=== PATIENT | male | born 1985 | race Caucasian/White ===

== ENCOUNTER 2017-06-22 01:40 | Emergency (ER) | payer OTHER ==
[2017-06-22] MEDS: ASPIRIN 81 MG CHEW TABLET PO ×2 (02:02)
[2017-06-22] MEDS: NITROGLYCERIN 0.4 MG SUBL TABLET SL ×4 (02:03→02:15)
[2017-06-22 02:05] LABS: BASO # 0.1 10^3/uL (0.0-0.2); BASO % 0.7 % (0.0-1.0); EOS # 0.2 10^3/uL (0.0-0.50); EOS % 2.3 % (0.0-3.0); HEMATOCRIT 44.3 % (42.0-52.0); HEMOGLOBIN 15.7 g/dl (13.5-17.5); IMMATURE GRANULOCYTE % 0.4 % (0-3.0); LYMPH # 2.9 10^3/uL (1.5-4.5); LYMPH % 34.9 % (24.0-44.0); MEAN CORPUSCULAR HEMOGLOBIN 30.7 pg (27.0-33.0); MEAN CORPUSCULAR HGB CONC 35.4 g/dl (32.0-36.5); MEAN CORPUSCULAR VOLUME 86.7 fl (80.0-96.0); MONO # 1.1 10^3/uL (0.0-0.8); MONO % 13.2 % (0.0-5.0); NEUTROPHILS # 4.1 10^3/uL (1.8-7.7); NEUTROPHILS % 48.5 % (36.0-66.0); PLATELET COUNT, AUTOMATED 327 10^3/uL (150-450); RED BLOOD COUNT 5.11 10^6/uL (4.30-6.10); RED CELL DISTRIBUTION WIDTH 11.9 % (11.5-14.5); WHITE BLOOD COUNT 8.4 10^3/uL (4.0-10.0)
[2017-06-22 02:20] LABS: INR 0.97
[2017-06-22 02:46] LABS: ALBUMIN 3.9 GM/DL (3.2-5.2); ALBUMIN/GLOBULIN RATIO 1.11 (1.00-1.93); ALKALINE PHOSPHATASE 73 U/L (45-117); ALT/SGPT 47 U/L (12-78); ANION GAP 8 MEQ/L (8-16); AST/SGOT 14 U/L (7-37); BILIRUBIN,DIRECT 0.1 MG/DL (0.0-0.2); BILIRUBIN,TOTAL 0.4 MG/DL (0.2-1.0); BLOOD UREA NITROGEN 14 MG/DL (7-18); CALCIUM LEVEL 8.5 MG/DL (8.5-10.1); CARBON DIOXIDE LEVEL 26 MEQ/L (21-32); CHLORIDE LEVEL 106 MEQ/L (98-107); CK-MB VALUE MASS 1.2 NG/ML (<3.6); CPK CREATINE PHOSPHOKINASE 74 U/L (39-308); CREATININE FOR GFR 0.97 MG/DL (0.70-1.30); GLOMERULAR FILTRATION RATE > 60.0 (>60); GLUCOSE, FASTING 102 MG/DL (70-100); LIPASE 107 U/L (73-393); MB/CK RELATIVE INDEX 1.62 (< OR =4); POTASSIUM SERUM 3.8 MEQ/L (3.5-5.1); SODIUM LEVEL 140 MEQ/L (136-145); TOTAL PROTEIN 7.4 GM/DL (6.4-8.2); TROPONIN I < 0.02 NG/ML (< 0.10)
[2017-06-22] MEDS ORDERED: ISOVUE-370 76% 100ML VIAL (Q9967) As Ordered ×2 (02:49)
[2017-06-22] MEDS: PANTOPRAZOLE 40MG INJ (PROTONIX) (C9113) IV ×2 (04:40)
[2017-06-22] MEDS: GI COCKTAIL 50ML BTL(HYOSCYAMINE/MAALOX/LIDOCAINE VISCOUS)(1:3:1) PO ×2 (04:40)
[2017-06-22 08:29] LABS: CPK CREATINE PHOSPHOKINASE 66 U/L (39-308); TROPONIN I < 0.02 NG/ML (< 0.10)
[2017-06-22 08:30] LABS: CK-MB VALUE MASS < 1.0 NG/ML (<3.6); MB/CK RELATIVE INDEX 1.51 (< OR =4)
[2017-06-22] MEDS: ALPRAZolam 0.5 MG TAB PO ×2 (09:43)
== END 2017-06-22 09:48 | disposition home or self-care (01) ==
LOC: M ED 01:40
DX: R07.9 Chest pain, unspecified (principal); I25.2 Old myocardial infarction; I10 Essential (primary) hypertension; K21.9 Gastro-esophageal reflux disease without esophagitis; Q05.9 Spina bifida, unspecified; F17.200 Nicotine dependence, unspecified, uncomplicated; Z79.82 Long term (current) use of aspirin
CPT/HCPCS: C9113

== ENCOUNTER → 2017-08-16 | Outpatient (REF) | payer OTHER ==
[2017-08-16 16:35] LABS: CHLAMYDIA DNA AMPLIFICATION NEGATIVE (NEGATIVE); GC DNA AMPLIFICATION NEGATIVE (NEGATIVE)
== END ==
LOC: M SFHCLERA 10:58
DX: R10.9 Unspecified abdominal pain (principal)

== ENCOUNTER → 2017-08-16 | Outpatient (CLI) | payer OTHER | LOC: M LRY 11:29 | DX: R10.12 Left upper quadrant pain (principal) | CPT/HCPCS: 74021 ==

== ENCOUNTER 2017-10-17 19:13 | Emergency (ER) | payer OTHER ==
[2017-10-17 20:02] LABS: BASO # 0.1 10^3/uL (0.0-0.2); BASO % 0.7 % (0.0-1.0); EOS # 0.2 10^3/uL (0.0-0.50); EOS % 2.2 % (0.0-3.0); HEMATOCRIT 43.6 % (42.0-52.0); HEMOGLOBIN 15.4 g/dl (13.5-17.5); IMMATURE GRANULOCYTE % 0.3 % (0-3.0); LYMPH # 2.2 10^3/uL (1.5-4.5); LYMPH % 28.8 % (24.0-44.0); MEAN CORPUSCULAR HEMOGLOBIN 30.8 pg (27.0-33.0); MEAN CORPUSCULAR HGB CONC 35.3 g/dl (32.0-36.5); MEAN CORPUSCULAR VOLUME 87.2 fl (80.0-96.0); MONO # 0.8 10^3/uL (0.0-0.8); MONO % 10.2 % (0.0-5.0); NEUTROPHILS # 4.4 10^3/uL (1.8-7.7); NEUTROPHILS % 57.8 % (36.0-66.0); PLATELET COUNT, AUTOMATED 318 10^3/uL (150-450); RED CELL DISTRIBUTION WIDTH 12.6 % (11.5-14.5); WHITE BLOOD COUNT 7.7 10^3/uL (4.0-10.0)
[2017-10-17] MEDS: NS 1,000 ML IV (20:10)
[2017-10-17] MEDS: ONDANSETRON 4MG/2ML VIAL (J2405) IV (20:17)
[2017-10-17] MEDS: MORPHINE 4 MG/ML 1ML VIAL/SYRINGE (J2270) IV ×4 (20:20→23:59)
[2017-10-17 20:23] LABS: ALBUMIN 3.9 GM/DL (3.2-5.2); ALBUMIN/GLOBULIN RATIO 1.11 (1.00-1.93); ALKALINE PHOSPHATASE 67 U/L (45-117); ALT/SGPT 95 U/L (12-78); ANION GAP 8 MEQ/L (8-16); AST/SGOT 48 U/L (7-37); BILIRUBIN,DIRECT 0.1 MG/DL (0.0-0.2); BILIRUBIN,TOTAL 0.5 MG/DL (0.2-1.0); BLOOD UREA NITROGEN 14 MG/DL (7-18); CARBON DIOXIDE LEVEL 24 MEQ/L (21-32); CHLORIDE LEVEL 107 MEQ/L (98-107); CREATININE FOR GFR 0.89 MG/DL (0.70-1.30); GLOMERULAR FILTRATION RATE > 60.0 (>60); GLUCOSE, FASTING 87 MG/DL (70-100); LIPASE 128 U/L (73-393); POTASSIUM SERUM 4.4 MEQ/L (3.5-5.1); SODIUM LEVEL 139 MEQ/L (136-145); TOTAL PROTEIN 7.4 GM/DL (6.4-8.2)
[2017-10-17 20:36] LABS: KETONE, URINE AUTO RFX NEGATIVE (NEGATIVE); LEUKOCYTE ESTERASE UR AUTO RFX NEGATIVE (NEGATIVE); NITRITE, URINE AUTO RFX NEGATIVE (NEGATIVE); RBC, URINE AUTO RFX 1 /HPF (0-3); SPECIFIC GRAVITY UR AUTO RFX 1.016 (1.002-1.035); SQUAM EPITHELIAL CELL UR AURFX 0 /HPF (0-6); WBC, URINE AUTO RFX 1 /HPF (0-3)
[2017-10-17] MEDS: GASTROGRAFIN SOLUTION 30ML PO ×2 (23:26→23:45)
[2017-10-18] MEDS ORDERED: ISOVUE-370 76% 100ML VIAL (Q9967) As Ordered (01:00)
[2017-10-18] MEDS: MORPHINE 4 MG/ML 1ML VIAL/SYRINGE (J2270) IV (02:43)
[2017-10-18] MEDS: OXYCODONE/APAP 5MG/325MG(BULK FOR ED) 1 TABLET PO (03:16)
== END 2017-10-18 03:25 | disposition home or self-care (01) ==
LOC: M ED 10-18 03:25
DX: K80.50 Calculus of bile duct without cholangitis or cholecystitis without obstruction (principal); Z72.0 Tobacco use; Z79.82 Long term (current) use of aspirin
CPT/HCPCS: J2270

== ENCOUNTER 2017-11-09 05:56 | Day surgery (SDC) | payer OTHER ==
[2017-11-09] MEDS: LR 1,000 ML IV (06:50)
[2017-11-09] MEDS ORDERED: LIDOCAINE 2% INJ 100 MG/5 ML SDV (FOR ANES.) As Ordered (07:12)
[2017-11-09] MEDS ORDERED: PROPOFOL 200 MG/20 ML VIAL As Ordered (07:12)
[2017-11-09] MEDS ORDERED: dexameTHASONE 4 MG/ML 1ML VIAL (J1100) As Ordered (07:12)
[2017-11-09] MEDS ORDERED: ROCURONIUM BROMIDE 50 MG/5 ML VIAL As Ordered (07:12)
[2017-11-09] MEDS ORDERED: GLYCOPYRROLATE INJ 0.2 MG/ML 2 ML VIAL As Ordered (07:12)
[2017-11-09] MEDS ORDERED: ONDANSETRON 4MG/2ML VIAL (J2405) As Ordered (07:12)
[2017-11-09] MEDS ORDERED: NEOSTIGMINE 10 MG/10 ML VIAL (J2710) As Ordered (07:12)
[2017-11-09] MEDS ORDERED: MIDAZOLAM INJ 2 MG/2 ML VIAL (J2250) As Ordered (07:17)
[2017-11-09] MEDS ORDERED: fentaNYL 100 MCG/2 ML INJECTION (J3010) As Ordered ×3 (07:17→08:58)
[2017-11-09] MEDS: AMPICILLIN SOD/SULBACTAM SOD 3 GM in D5W MINI-BAG PLUS 100 ML IV (07:30)
[2017-11-09] MEDS ORDERED: HYDROmorphone HCL 2 MG/ML 1ML VIAL (J1170) As Ordered (07:48)
[2017-11-09] MEDS: LIDOCAINE 1% SDV INJ 30 ML VIAL As Ordered (08:31)
[2017-11-09] MEDS: BUPIVACAINE HCL 0.25% 30 ML VIAL As Ordered (08:31)
[2017-11-09] MEDS ORDERED: ONDANSETRON 4MG/2ML VIAL (J2405) IV ×2 (09:00)
[2017-11-09] MEDS ORDERED: NORCO, ANEXSIA 5/325MG TABLET (HYDROcodone/ACETAMINOPHEN) PO ×2 (09:00→09:15)
[2017-11-09] MEDS ORDERED: KETOROLAC 30 MG/ML VIAL (J1885) IV (09:00)
[2017-11-09] MEDS ORDERED: LR 1,000 ML IV (09:00)
[2017-11-09] MEDS: fentaNYL 100 MCG/2 ML INJECTION (J3010) IV ×4 (09:07→09:22)
[2017-11-09] MEDS: PERCOCET 5MG/325MG TAB PO (09:25)
[2017-11-09] MEDS ORDERED: METOCLOPRAMIDE INJ 10MG/2ML VIAL (J2765) As Ordered (09:53)
== END 2017-11-09 10:45 | disposition home or self-care (01) ==
LOC: M SDC 05:56
DX: K80.18 Calculus of gallbladder with other cholecystitis without obstruction (principal); I10 Essential (primary) hypertension; K21.9 Gastro-esophageal reflux disease without esophagitis; R07.9 Chest pain, unspecified; F43.10 Post-traumatic stress disorder, unspecified; Z79.899 Other long term (current) drug therapy; F17.210 Nicotine dependence, cigarettes, uncomplicated
CPT/HCPCS: 47562

== ENCOUNTER 2017-11-17 16:30 | Emergency (ER) | payer OTHER ==
[2017-11-17] MEDS: NS 1,000 ML IV (16:53)
[2017-11-17] MEDS: ONDANSETRON 4MG/2ML VIAL (J2405) IV (16:53)
[2017-11-17] MEDS: MORPHINE 4 MG/ML 1ML VIAL/SYRINGE (J2270) IV ×3 (16:53→18:24)
[2017-11-17 16:59] LABS: BASO # 0.1 10^3/uL (0.0-0.2); BASO % 0.6 % (0.0-1.0); EOS # 0.2 10^3/uL (0.0-0.50); EOS % 2.3 % (0.0-3.0); HEMATOCRIT 49.5 % (42.0-52.0); HEMOGLOBIN 17.1 g/dl (13.5-17.5); IMMATURE GRANULOCYTE % 0.6 % (0-3.0); LYMPH # 3.3 10^3/uL (1.5-4.5); LYMPH % 34.6 % (24.0-44.0); MEAN CORPUSCULAR HEMOGLOBIN 31.1 pg (27.0-33.0); MEAN CORPUSCULAR HGB CONC 34.5 g/dl (32.0-36.5); MONO # 1.2 10^3/uL (0.0-0.8); MONO % 12.5 % (0.0-5.0); NEUTROPHILS # 4.6 10^3/uL (1.8-7.7); NEUTROPHILS % 49.4 % (36.0-66.0); PLATELET COUNT, AUTOMATED 330 10^3/uL (150-450); RED CELL DISTRIBUTION WIDTH 12.5 % (11.5-14.5); WHITE BLOOD COUNT 9.4 10^3/uL (4.0-10.0)
[2017-11-17] MEDS: GASTROGRAFIN SOLUTION 30ML PO ×2 (17:03→17:45)
[2017-11-17 17:11] LABS: INR 0.95; PARTIAL THROMBOPLASTIN TIME 26.5 SECONDS (25.4-37.6); PROTHROMBIN TIME 12.8 SECONDS (12.1-14.4)
[2017-11-17 17:24] LABS: ALBUMIN 4.2 GM/DL (3.2-5.2); ALKALINE PHOSPHATASE 86 U/L (45-117); ALT/SGPT 110 U/L (12-78); ANION GAP 5 MEQ/L (8-16); AST/SGOT 28 U/L (7-37); BILIRUBIN,DIRECT 0.1 MG/DL (0.0-0.2); BILIRUBIN,TOTAL 0.4 MG/DL (0.2-1.0); BLOOD UREA NITROGEN 10 MG/DL (7-18); CALCIUM LEVEL 9.2 MG/DL (8.5-10.1); CARBON DIOXIDE LEVEL 29 MEQ/L (21-32); CHLORIDE LEVEL 106 MEQ/L (98-107); CREATININE FOR GFR 1.05 MG/DL (0.70-1.30); GLOMERULAR FILTRATION RATE > 60.0 (>60); GLUCOSE, FASTING 88 MG/DL (70-100); LIPASE 141 U/L (73-393); POTASSIUM SERUM 4.1 MEQ/L (3.5-5.1); SODIUM LEVEL 140 MEQ/L (136-145); TOTAL PROTEIN 8.4 GM/DL (6.4-8.2)
[2017-11-17 17:25] LABS: POS COUNT POS FLAG
[2017-11-17] MEDS ORDERED: ISOVUE-370 76% 100ML VIAL (Q9967) As Ordered (17:28)
[2017-11-17 18:18] LABS: KETONE, URINE AUTO RFX NEGATIVE (NEGATIVE); LEUKOCYTE ESTERASE UR AUTO RFX NEGATIVE (NEGATIVE); MUCUS, URINE RFX SMALL (NEGATIVE); NITRITE, URINE AUTO RFX NEGATIVE (NEGATIVE); RBC, URINE AUTO RFX 1 /HPF (0-3); SPECIFIC GRAVITY UR AUTO RFX 1.017 (1.002-1.035); SQUAM EPITHELIAL CELL UR AURFX 0 /HPF (0-6); WBC, URINE AUTO RFX 0 /HPF (0-3)
== END 2017-11-17 19:57 | disposition home or self-care (01) ==
LOC: M ED 16:30
DX: R10.9 Unspecified abdominal pain (principal)
CPT/HCPCS: J2270

== ENCOUNTER → 2018-02-28 | Outpatient (CLI) | payer OTHER ==
[~2018-02-28] MED LIST: DICL100T6; ECOT81TA5 PO; NITR100C2; ONDA4TAB6 PO; PERC5TAB12 PO
--- NOTE | 2018-03-01 08:57 | REP ---
MRI lumbar spine without contrast: HISTORY: Back pain. Decreased signal intensity on T2 weighted images is present in the L5-S1 intervertebral disc. The disc is decreased in height. These findings are consistent with disc degeneration. There is no disc bulge or herniation at the L1-2 and L2-3 levels. The nerves exit then neural foramina without compression. A diffuse disc bulge is present at the L3-4 level. There is minimal compression of the thecal sac. The L3 nerves exit the neural foramina without compression. A diffuse disc bulge and small central disc protrusion are present at the L4-5 level. There is minimal compression of the thecal sac. There is hypertrophy of the ligamenta flava and posterior articulating facets. The L4 nerves exit the neural foramina without compression. A diffuse disc bulge and small left intraforaminal disc protrusion are present at the L5-S1 level. There is minimal compression of the thecal sac. There is hypertrophy of the posterior articulating facets. There are 3 mm of grade 1 spondylolisthesis of L5 on S1. This is associated with L5 pars defects. There is compression of the left L5 nerve in the neural foramen. The right L5 nerve exits the neural foramen without compression . The conus medullaris is normal in appearance terminating at the level of the L1-2 intervertebral disc. Normal signal intensity is present in the lumbar vertebral bodies. IMPRESSION: 1. Diffuse disc bulge at the L3-4 level with minimal thecal sac compression. 2. Diffuse disc bulge and small central disc protrusion at the L4-5 level with minimal thecal sac compression. 3. Diffuse disc bulge at the L5-S1 level with minimal thecal sac compression. A small left intraforaminal disc protrusion is present. There is grade 1 spondylolisthesis of L5 on S1 with associated L5 pars defects. There is compression of the left L5 nerve in the neural foramen. Electronically Signed by Thuan Thibodeaux MD 03/01/2018 09:00 A
== END ==
LOC: M RAD 16:41
PROVIDERS: ATTEND Family Medicine Addiction Medicine
DX: M51.26 Other intervertebral disc displacement, lumbar region (principal); M51.27 Other intervertebral disc displacement, lumbosacral region; M43.17 Spondylolisthesis, lumbosacral region

== ENCOUNTER 2018-06-03 11:45 | Emergency (ER) | payer MEDICAID, OTHER ==
[~2018-06-03] VITALS: Ht 180.3 cm; Wt 97.7 kg
[2018-06-03 11:45] VITALS: BP 142/96
[2018-06-03] MEDS ORDERED: traMADol 50 MG TAB PO ONE (13:30)
[2018-06-03] MEDS ORDERED: TRAM50TA2 PO (13:31)
== END 2018-06-03 13:40 | disposition home or self-care (01) ==
LOC: M ED 11:45
DX: M54.32 Sciatica, left side (principal); M43.16 Spondylolisthesis, lumbar region; M51.27 Other intervertebral disc displacement, lumbosacral region; M51.26 Other intervertebral disc displacement, lumbar region; I10 Essential (primary) hypertension; J44.9 Chronic obstructive pulmonary disease, unspecified; J45.909 Unspecified asthma, uncomplicated; K21.9 Gastro-esophageal reflux disease without esophagitis; Z87.440 Personal history of urinary (tract) infections; Z90.49 Acquired absence of other specified parts of digestive tract

== ENCOUNTER 2018-08-02 20:36 | Inpatient (IN) | payer MEDICAID, OTHER ==
[~2018-08-02] VITALS: Ht 180.3 cm; Wt 102.5 kg
[~2018-08-02 20:36] MED LIST changes: +CIPR250T3; +HYDR-3713; +TRAM50TA2 PO; +voltaren
[2018-08-02] MEDS ORDERED: KETOROLAC 30 MG/ML VIAL (J1885) IV ONE (21:00)
[2018-08-02] MEDS ORDERED: NS 1,000 ML IV ONE ×2 (21:00→22:00)
[2018-08-02] MEDS ORDERED: MORPHINE 2 MG/ML 1ML SYRINGE (J2270) IV ONE (21:30)
[2018-08-02 21:35] LABS: BASO # 0.1 10^3/uL (0.0-0.2); BASO % 0.5 % (0.0-1.0); EOS # 0.1 10^3/uL (0.0-0.50); EOS % 0.4 % (0.0-3.0); HEMATOCRIT 48.5 % (42.0-52.0); HEMOGLOBIN 17.6 g/dl (13.5-17.5); LYMPH # 3.3 10^3/uL (1.5-4.5); LYMPH % 20.4 % (24.0-44.0); MEAN CORPUSCULAR HEMOGLOBIN 31.9 pg (27.0-33.0); MEAN CORPUSCULAR HGB CONC 36.3 g/dl (32.0-36.5); MONO # 1.3 10^3/uL (0.0-0.8); NEUTROPHILS # 11.2 10^3/uL (1.8-7.7); NEUTROPHILS % 70.3 % (36.0-66.0); PLATELET COUNT, AUTOMATED 381 10^3/uL (150-450); RED BLOOD COUNT 5.51 10^6/uL (4.30-6.10)
--- NOTE | 2018-08-02 21:52 | REP ---
Clinical: Abdominal pain. History of nephrolithiasis. Technique: Axial noncontrast images from the lung bases to the pubic symphysis with coronal and sagittal re-formations. Comparison: 07/08/2018, 11/07/2017. Findings: Lung bases are clear. Visualized heart and pericardium normal. Liver, spleen, pancreas, and bilateral adrenal glands are normal. Evidence of prior cholecystectomy. Kidneys demonstrate subtle bilateral nephrocalcinosis and few 1 mm nonobstructing intrarenal calculi. No perinephric stranding, hydroureteronephrosis or obstructing ureteral calculi. Bilateral ureters and bladder appear normal. Calcifications in the pelvis are stable and consistent with phleboliths. The the enteric system is without obstruction or acute inflammatory process. Normal terminal ileum and appendix are identified in the right lower quadrant. Pelvis demonstrates normal bladder and age appropriate prostate/seminal vesicles. Phleboliths noted in the pelvis. No ascites. No free air. No adenopathy. Abdominal aorta without aneurysm. Musculoskeletal structures are intact. Impression: 1. Subtle bilateral nephrocalcinosis and and punctate 1 mm nonobstructing intrarenal calculi without obstructing calculus, hydronephrosis or perinephric stranding. 2. No acute abdominopelvic pathology appreciated. Electronically Signed by Gustabo Loja MD 08/02/2018 09:44 P
[2018-08-02 22:01] LABS: ALBUMIN 3.9 GM/DL (3.2-5.2); BILIRUBIN,DIRECT 0.2 MG/DL (0.0-0.2); BILIRUBIN,TOTAL 0.5 MG/DL (0.2-1.0); TOTAL PROTEIN 7.6 GM/DL (6.4-8.2)
[2018-08-02] MEDS ORDERED: diphenhydrAMINE INJ 50MG/ML VIAL (J1200) IV ONE (22:15)
[2018-08-02] MEDS ORDERED: HALOPERIDOL 5 MG/ML VIAL (J1630) IV ONE (22:15)
[2018-08-02] MEDS ORDERED: NS 1,000 ML IV SCH (23:30)
[2018-08-02] MEDS ORDERED: LR 1,000 ML IV SCH (23:30)
[2018-08-02] MEDS ORDERED: KETOROLAC 30 MG/ML VIAL (J1885) IV PRN (23:30)
[2018-08-03] MEDS: MORPHINE 4 MG/ML 1ML VIAL/SYRINGE (J2270) IV PRN ×6 (00:12→21:05)
--- NOTE | 2018-08-03 00:16 | HPEPDOC ---
General Date of Admission 08/02/18 Date of Service: Aug 02, 2018 Chief Complaint The patient is a 32-year-old male admitted with a reason for visit of Flank Pain. Source: Patient, RN/MD, Old records Exam Limitations: No limitations Severity: Severe History of Present Illness 32 year old male with PMH of Hypertension, kidney stones, asthma, anxiety, depression presented to ED with sudden onset of severe right sided flank pain which started around 8 pm today. The pateint was at work and was sitting down when he suddenly having this unbearable pain in his right flank going to the back which caused him to bend over and made him throw up. His pain was sharp stabbing in character, 10/10 in intensity in the right flank radiating to the back. He had a similar attack 2 days ago but milder in intensity when he passed 2 small stones then that pain had resolved spontaneously. He also has been having loose stools 2 to 3 times a day for the passed 2 days which is unsuual as normally he has a bowel movement every other day. CT abdomen without contrast in the ED showed Subtle bilateral nephrocalcinosis and and punctate 1 mm nonob structing intrarenal calculi without obstructing calculus, hydronephrosis or perinephric stranding. No other intraabdominal pathology. his lab work was significant for elevated lipase and elevated lactic acid and elevated WBC. Patient was admitted for ureteric colic with intractable pain requiring IV morphine, lactacidosis . Elevated lipase needs to be evaluated for pancreatitis. Home Medications No Active Prescriptions or Reported Meds Allergies Coded Allergies: No Known Allergies (Unverified , 11/09/17) Past Medical History Medical History Hypertension, kidney stones, asthma, anxiety, depression Surgical History cholecystectomy, right index finger surgery, right hip skin graft Family History Significant Family History: Cancer (prostate cancer father), Diabetes (sister), Heart disease (mother, father), Hypertension (mother, brother, sister) Social History * Smoker: current smoker Alcohol: occationally Drugs: marijuana A-FIB/CHADSVASC A-FIB History Current/History of A-Fib/PAF?: No Review of Systems Constitutional: Denies: Chills, Fever, Night Sweats Eyes: Denies: Pain, Vision change ENT: Denies: Head Aches, Ear Pain, Dysphagia Skin: Denies: Rash, Lesions, Breakdown Pulmonary: Denies: Dyspnea, Cough Cardiovascular: Denies: Chest Pain, Palpitations, Orthopnea, Paroxysmal Noc. Dyspnea, Lt Headedness Gastrointestinal: Reports: Vomiting, Abdominal Pain, Diarrhea Genitourinary: Reports: Other Symptoms; Denies: Dysuria, Frequency, Incontinence, Hematuria Hematologic: Denies: Bruising, Bleeding Excessively Musculoskeletal: Reports: Back Pain; Denies: Neck Pain, Joint Pain, Muscle Pain, Spasms Neurological: Denies: Weakness, Numbness, Change in speech, Confusion Physical Examination General Exam: Positive: Alert, Cooperative, Mild Distress Eye Exam: Positive: PERRLA, Conjunctiva & lids normal, EOMI; Negative: Sclera icteric ENT Exam: Positive: Atraumatic, Mucous membr. moist/pink, Pharynx Normal Neck Exam: Positive: Supple; Negative: JVD, thyromegaly Chest Exam: Positive: Clear to auscultation, Normal air movement Heart Exam: Positive: Rate Normal, Regular Rhythm, Normal S1, Normal S2; Negative: Murmurs, Rubs Abdomen Exam: Positive: BS Hypoactive, Soft, Tenderness (right lumber region), Other (right CVA tenderness present) Extremity Exam: Positive: Normal pulses; Negative: Clubbing, Cyanosis, Edema Skin Exam: Positive: Nl turgor and temperature; Negative: Breakdown, Lesion Neuro Exam: Positive: Normal Speech, Strength at 5/5 X4 ext, Normal Tone Vital Signs Vital Signs Date Time Temp Pulse Resp B/P (MAP) Pulse Ox O2 Delivery O2 Flow Rate FiO2 08/02/18 22:22 18 08/02/18 20:47 98.6 92 137/89 (105) 99 Room Air Laboratory Data Labs 24H Laboratory Tests 2 08/02/18 21:24: Immature Granulocyte % (Auto) 0.4, White Blood Count 16.0H, Red Blood Count 5.51, Hemoglobin 17.6H, Hematocrit 48.5, Mean Corpuscular Volume 88.0, Mean Corpuscular Hemoglobin 31.9, Mean Corpuscular Hemoglobin Concent 36.3, Red Cell Distribution Width 11.6, Platelet Count 381, Neutrophils (%) (Auto) 70.3H, Lymphocytes (%) (Auto) 20.4L, Monocytes (%) (Auto) 8.0H, Eosinophils (%) (Auto) 0.4, Basophils (%) (Auto) 0.5, Neutrophils # (Auto) 11.2H, Lymphocytes # (Auto) 3.3, Monocytes # (Auto) 1.3H, Eosinophils # (Auto) 0.1, Basophils # (Auto) 0.1, Nucleated Red Blood Cells % (auto) 0.0, Aspartate Amino Transf (AST/SGOT) 57H, Alanine Aminotransferase (ALT/SGPT) 59, Alkaline Phosphatase 81, Total Bilirubin 0.5, Direct Bilirubin 0.2, Total Protein 7.6, Albumin 3.9, Albumin/Globulin Ratio 1.05, Lipase 2113H 08/02/18 21:27: POC Lactate (Misc Panel) 4.39*H 08/02/18 21:42: POC Glucose (Misc Panel) 102, POC Sodium (Misc Panel) 141, POC Potassium (Misc Panel) 3.2L, POC Chloride (Misc Panel) 106, POC Total CO2 (Misc Panel) 18.0L, POC Blood Urea Nitrogen (Misc Panel 11, POC Ionized Calcium (Misc Panel) 4.4L, POC Creatinine (Misc Panel) 1.1, POC Hematocrit (Misc Panel) 52.0H 08/02/18 22:11: Urine Color YELLOW, Urine Appearance CLEAR, Urine pH 5.0, Urine Specific [place] 1.011, Urine Protein NEGATIVE, Urine Glucose (UA) NEGATIVE, Urine Ketones NEGATIVE, Urine Blood NEGATIVE, Urine Nitrite NEGATIVE, Urine Bilirubin NEGATIVE, Urine Urobilinogen 0.2, Urine Leukocyte Esterase NEGATIVE, Urine WBC (Auto) 3, Urine RBC (Auto) 3, Urine Hyaline Casts (Auto) 0, Urine Bacteria (Auto) NEGATIVE, Urine Squamous Epithelial Cells 0, Urine Mucus (Auto) SMALL, Urine Sperm (Auto) CBC/BMP Laboratory Tests 08/02/18 21:24 Red Blood Count 5.51, Mean Corpuscular Volume 88.0, Mean Corpuscular Hemoglobin 31.9, Mean Corpuscular Hemoglobin Concent 36.3, Red Cell Distribution Width 11.6, Neutrophils (%) (Auto) 70.3 H, Lymphocytes (%) (Auto) 20.4 L, Monocytes (%) (Auto) 8.0 H, Eosinophils (%) (Auto) 0.4, Basophils (%) (Auto) 0.5, Neutrophils # (Auto) 11.2 H, Lymphocytes # (Auto) 3.3, Monocytes # (Auto) 1.3 H, Eosinophils # (Auto) 0.1, Basophils # (Auto) 0.1 Microbiology Microbiology 08/02/18 Blood Culture, Received Pending 08/02/18 Blood Culture, Received Pending Assessment/Plan 32 year old male with PMH of Hypertension, kidney stones, asthma, anxiety, depression presented to ED with sudden onset of severe right sided flank pain which started around [address] abdomen without contrast in the ED showed Subtle bilateral nephrocalcinosis and and punctate 1 mm nonobstructing intrarenal calculi without obstructing calculus, hydronephrosis or perinephric stranding. No other intraabdominal pathology. His lab work was significant for elevated lipase and elevated lactic acid and elevated WBC. Patient was admitted for ureteric colic with intractable pain requiring IV morphine, lactacidosis . Elevated lipase needs to be evaluated for pancreatitis. Renal/Ureteral Colic with intractable pain requiring IV morphine for pain control. CT abdomen pelvis has been unrevealing will continue pain control with IV morphine, Iv toradol Zofran and IVF UA does not show any infection with only 3 wbc and only 3 RBC. Possible acute pancreatitis with Lactacidosis with elevated lipase Though clinically he does not fit pancreatitis though still it could be Continue IVF, clear liquids IV morphine, zofran. Lactacidosis With his abdominal pain, diarrhea for 2 days need to rule out ischemic colitis also. will get stool for occult blood will give IVF. repeat in 4 hours. Will need Abdominal CT with contrast po and IV contrast. H/o Hypertension Now Bp is OK. not on any meds at present will continue to monitor hypokalemia will replace DVT prophylaxis ordered Plan / VTE VTE Prophylaxis Ordered?: Yes ANTOINETTE KING MD Aug 02, 2018 22:37
[2018-08-03 00:24] VITALS: BP 148/77
[2018-08-03] MEDS: PANTOPRAZOLE 40MG INJ (PROTONIX) (C9113) IV SCH ×2 (00:36→21:04)
[2018-08-03] MEDS: KCL 40MEQ in NS 1000ML 1,000 ML IV SCH ×4 (02:51→21:04)
[2018-08-03 06:00] VITALS: BP 133/71
[2018-08-03] MEDS: ONDANSETRON 4MG/2ML VIAL (J2405) IV PRN ×2 (06:52→21:04)
[2018-08-03] MEDS: GASTROGRAFIN SOLUTION 30ML PO SCH ×2 (06:53→08:15)
[2018-08-03 06:55] LABS: BLOOD UREA NITROGEN 9 MG/DL (7-18); CALCIUM LEVEL 7.7 MG/DL (8.5-10.1); CARBON DIOXIDE LEVEL 27 MEQ/L (21-32); CHLORIDE LEVEL 109 MEQ/L (98-107); CREATININE FOR GFR 0.94 MG/DL (0.70-1.30); GLOMERULAR FILTRATION RATE > 60.0 (>60); GLUCOSE, FASTING 84 MG/DL (70-100); LIPASE 831 U/L (73-393); MAGNESIUM LEVEL 1.7 MG/DL (1.8-2.4); POTASSIUM SERUM 4.1 MEQ/L (3.5-5.1); SODIUM LEVEL 140 MEQ/L (136-145)
[2018-08-03 06:56] LABS: BASO # 0.1 10^3/uL (0.0-0.2); BASO % 0.5 % (0.0-1.0); EOS # 0.2 10^3/uL (0.0-0.50); EOS % 1.5 % (0.0-3.0); HEMATOCRIT 40.6 % (42.0-52.0); LYMPH # 3.1 10^3/uL (1.5-4.5); LYMPH % 31.1 % (24.0-44.0); MEAN CORPUSCULAR HEMOGLOBIN 30.7 pg (27.0-33.0); MEAN CORPUSCULAR VOLUME 87.9 fl (80.0-96.0); MONO % 9.6 % (0.0-5.0); NEUTROPHILS # 5.7 10^3/uL (1.8-7.7); PLATELET COUNT, AUTOMATED 326 10^3/uL (150-450); RED BLOOD COUNT 4.62 10^6/uL (4.30-6.10); WHITE BLOOD COUNT 9.9 10^3/uL (4.0-10.0)
[2018-08-03 07:09] LABS: HEMOGLOBIN 14.2 g/dl (13.5-17.5)
[2018-08-03] MEDS ORDERED: MAG SULF 1GM/100ML (MAG RUN) 1 GM in APPROPRIATE DILUENT 1 EA IV ONE (07:45)
[2018-08-03] MEDS ORDERED: ISOVUE-370 76% 100ML VIAL (Q9967) As Ordered ONE (08:33)
--- NOTE | 2018-08-03 11:41 | IPNPDOC ---
Subjective Date Seen The patient was seen on 08/03/18. Subjective Chief Complaint/HPI Patient complaining of severe pain in his abdomen. No nausea, vomiting, headache CT abdomen, pelvis done, report is still pending General: Denies: ROS Unobtainable, Chills, Night Sweats, Fatigue, Malaise, Normal Appetite, Other Symptoms Constitutional: Denies: Chills, Fever, Malaise, Night Sweats, Weakness, Fatigue, Weight Loss, Lethargy, Other Eyes: Denies: Pain, Vision change, Conjunctivae inflammation, Eyelid inflammation, Redness, Other ENT: Denies: Head Aches, Ear Pain, Dysphagia, Sinus Congestion, Post Nasal Drip, Sore Throat, Epistaxis, Other Symptoms Skin: Denies: Rash, Lesions, Jaundice, Bruising, Itching, Dry, Breakdown, Nail Changes, Other Pulmonary: Denies: Dyspnea, Cough, Pleuritic Chest Pain, Other Symptoms Cardiovascular: Denies: Chest Pain, Palpitations, Orthopnea, Paroxysmal Noc. Dyspnea, Edema, Lt Headedness, Other Symptoms Gastrointestinal: Reports: Nausea, Abdominal Pain Genitourinary: Denies: Dysuria, Frequency, Incontinence, Hematuria, Retention, Other Symptoms Hematologic: Denies: Bruising, Bleeding Excessively, Petecchia, Purpura, Enlarged Lymph Nodes, Other Hematologic Musculoskeletal: Denies: Neck Pain, Back Pain, Shoulder Pain, Arm Pain, Hand Pain, Leg Pain, Foot Pain, Joint Pain, Muscle Pain, Spasms, Other Symptoms Neurological: Denies: Weakness, Numbness, Incoordination, Change in speech, Confusion, Seizures, Other Symptoms Objective Physical Examination General Exam: Positive: Alert, Cooperative, Mild Distress Eye Exam: Positive: PERRLA, Conjunctiva & lids normal, EOMI; Negative: Sclera icteric ENT Exam: Positive: Atraumatic, Mucous membr. moist/pink, Pharynx Normal Neck Exam: Positive: Supple; Negative: JVD, thyromegaly Chest Exam: Positive: Clear to auscultation, Normal air movement Heart Exam: Positive: Rate Normal, Regular Rhythm, Normal S1, Normal S2; Negative: Murmurs, Rubs Abdomen Exam: Positive: BS Hypoactive, Soft, Tenderness (right lumber region), Other (right CVA tenderness present) Extremity Exam: Positive: Normal pulses; Negative: Clubbing, Cyanosis, Edema Skin Exam: Positive: Nl turgor and temperature; Negative: Breakdown, Lesion Neuro Exam: Positive: Normal Speech, Strength at 5/5 X4 ext, Normal Tone Assessment /Plan Problems (1) Acute pancreatitis Problem Text: Abdominal pain, most likely secondary to pancreatitis Lipase level is down to 831 Continue IV fluids Continue pain management Nothing by mouth except ice chips CT abdomen and pelvis done, report is still pending Patient declines alcohol abuse are intact Will get fasting triglyceride and lipids Repeat labs in a.m. Continue present care Plan/VTE VTE Prophylaxis Ordered?: Yes VS, I&O, 24H, Fishbone Vital Signs/I&O Vital Signs Date Time Temp Pulse Resp B/P (MAP) Pulse Ox O2 Delivery O2 Flow Rate FiO2 08/03/18 08:25 18 08/03/18 06:00 97.5 64 133/71 (91) 96 08/03/18 00:07 Room Air I&O- Last 24 Hours up to 6 AM 08/03/18 06:00 Intake Total 2655 ml Output Total 600 ml Balance 2055 ml Laboratory Data 24H LABS Laboratory Tests 2 08/02/18 21:24: Immature Granulocyte % (Auto) 0.4, White Blood Count 16.0H, Red Blood Count 5.51, Hemoglobin 17.6H, Hematocrit 48.5, Mean Corpuscular Volume 88.0, Mean Corpuscular Hemoglobin 31.9, Mean Corpuscular Hemoglobin Concent 36.3, Red Cell Distribution Width 11.6, Platelet Count 381, Neutrophils (%) (Auto) 70.3H, Lymphocytes (%) (Auto) 20.4L, Monocytes (%) (Auto) 8.0H, Eosinophils (%) (Auto) 0.4, Basophils (%) (Auto) 0.5, Neutrophils # (Auto) 11.2H, Lymphocytes # (Auto) 3.3, Monocytes # (Auto) 1.3H, Eosinophils # (Auto) 0.1, Basophils # (Auto) 0.1, Nucleated Red Blood Cells % (auto) 0.0, Aspartate Amino Transf (AST/SGOT) 57H, Alanine Aminotransferase (ALT/SGPT) 59, Alkaline Phosphatase 81, Total Bilirubin 0.5, Direct Bilirubin 0.2, Total Protein 7.6, Albumin 3.9, Albumin/Globulin Ratio 1.05, Lipase 2113H 08/02/18 21:27: POC Lactate (Misc Panel) 4.39*H 08/02/18 21:42: POC Glucose (Misc Panel) 102, POC Sodium (Misc Panel) 141, POC Potassium (Misc Panel) 3.2L, POC Chloride (Misc Panel) 106, POC Total CO2 (Misc Panel) 18.0L, POC Blood Urea Nitrogen (Misc Panel 11, POC Ionized Calcium (Misc Panel) 4.4L, POC Creatinine (Misc Panel) 1.1, POC Hematocrit (Misc Panel) 52.0H 08/02/18 22:11: Urine Color YELLOW, Urine Appearance CLEAR, Urine pH 5.0, Urine Specific [employer] 1.011, Urine Protein NEGATIVE, Urine Glucose (UA) NEGATIVE, Urine Ketones NEGATIVE, Urine Blood NEGATIVE, Urine Nitrite NEGATIVE, Urine Bilirubin NEGATIVE, Urine Urobilinogen 0.2, Urine Leukocyte Esterase NEGATIVE, Urine WBC (Auto) 3, Urine RBC (Auto) 3, Urine Hyaline Casts (Auto) 0, Urine Bacteria (Auto) NEGATIVE, Urine Squamous Epithelial Cells 0, Urine Mucus (Auto) SMALL, Urine Sperm (Auto) 08/03/18 01:26: Lactic Acid Level 1.4 08/03/18 06:14: Lactic Acid Level 1.0, Immature Granulocyte % (Auto) 0.3, White Blood Count 9.9, Red Blood Count 4.62, Hemoglobin 14.2#, Hematocrit 40.6L, Mean Corpuscular Volume 87.9, Mean Corpuscular Hemoglobin 30.7, Mean Corpuscular Hemoglobin Concent 35.0, Red Cell Distribution Width 11.9, Platelet Count 326, Neutrophils (%) (Auto) 57.0, Lymphocytes (%) (Auto) 31.1, Monocytes (%) (Auto) 9.6H, Eosinophils (%) (Auto) 1.5, Basophils (%) (Auto) 0.5, Neutrophils # (Auto) 5.7, Lymphocytes # (Auto) 3.1, Monocytes # (Auto) 1.0H, Eosinophils # (Auto) 0.2, Basophils # (Auto) 0.1, Nucleated Red Blood Cells % (auto) 0.0, Anion Gap 4L, Glomerular Filtration Rate > 60.0, Blood Urea Nitrogen 9, Creatinine 0.94, Sodium Level 140, Potassium Level 4.1, Chloride Level 109H, Carbon Dioxide Level 27, Calcium Level 7.7L, Magnesium Level 1.7L, Lipase 831H CBC/BMP Laboratory Tests 08/02/18 21:24 Red Blood Count 5.51, Mean Corpuscular Volume 88.0, Mean Corpuscular Hemoglobin 31.9, Mean Corpuscular Hemoglobin Concent 36.3, Red Cell Distribution Width 11.6, Neutrophils (%) (Auto) 70.3 H, Lymphocytes (%) (Auto) 20.4 L, Monocytes (%) (Auto) 8.0 H, Eosinophils (%) (Auto) 0.4, Basophils (%) (Auto) 0.5, Neutrophils # (Auto) 11.2 H, Lymphocytes # (Auto) 3.3, Monocytes # (Auto) 1.3 H, Eosinophils # (Auto) 0.1, Basophils # (Auto) 0.1 08/03/18 06:14 Red Blood Count 4.62, Mean Corpuscular Volume 87.9, Mean Corpuscular Hemoglobin 30.7, Mean Corpuscular Hemoglobin Concent 35.0, Red Cell Distribution Width 11.9, Neutrophils (%) (Auto) 57.0, Lymphocytes (%) (Auto) 31.1, Monocytes (%) (Auto) 9.6 H, Eosinophils (%) (Auto) 1.5, Basophils (%) (Auto) 0.5, Neutrophils # (Auto) 5.7, Lymphocytes # (Auto) 3.1, Monocytes # (Auto) 1.0 H, Eosinophils # (Auto) 0.2, Basophils # (Auto) 0.1, Calcium Level 7.7 L Microbiology Microbiology 08/02/18 Blood Culture, Received Pending 08/02/18 Blood Culture, Received Pending BRENNEN LR MD Aug 03, 2018 11:40
[2018-08-03 14:00] VITALS: BP 143/73
--- NOTE | 2018-08-03 15:01 | REP ---
Clinical: Abdominal pain. Pancreatitis. Technique: Axial contrast enhanced images from the lung bases to the pubic symphysis using oral (per protocol) and 100 ml Isovue 370 intravenous contrast material with coronal and sagittal re-formations. Comparison: 08/02/2018, 07/08/2018. Findings: Lung bases demonstrate minimal dependent changes. Visualized heart and pericardium normal. The pancreas is normal in appearance and parenchymal enhancement without peripancreatic inflammatory stranding or fluid and no evidence for ischemia/necrosis. Liver, spleen, bilateral adrenal glands and kidneys are normal. Evidence of prior cholecystectomy. The enteric system is without obstruction or acute inflammatory process. Normal terminal ileum and appendix identified in the right lower quadrant. Pelvis demonstrates normal bladder and age appropriate prostate/seminal vesicles. Phleboliths noted in the pelvis. No ascites. No free air. No significant adenopathy. Abdominal aorta without aneurysm or dissection. Musculoskeletal structures intact. Impression: 1. No obvious acute abdominopelvic pathology appreciated. 2. Essentially normal appearance of the pancreas and surrounding retroperitoneal spaces without inflammatory change or fluid. Electronically Signed by Gustabo Loja MD 08/03/2018 09:09 A
[2018-08-03 22:00] VITALS: BP 145/85
[2018-08-04] MEDS: MORPHINE 4 MG/ML 1ML VIAL/SYRINGE (J2270) IV PRN ×3 (01:07→09:13)
[2018-08-04] MEDS: KCL 40MEQ in NS 1000ML 1,000 ML IV SCH (01:56)
[2018-08-04] MEDS: ONDANSETRON 4MG/2ML VIAL (J2405) IV PRN (05:12)
[2018-08-04 06:00] VITALS: BP 145/86
[2018-08-04 06:08] LABS: BASO # 0.1 10^3/uL (0.0-0.2); BASO % 0.7 % (0.0-1.0); EOS # 0.2 10^3/uL (0.0-0.50); EOS % 2.6 % (0.0-3.0); HEMATOCRIT 41.2 % (42.0-52.0); HEMOGLOBIN 14.5 g/dl (13.5-17.5); LYMPH % 41.2 % (24.0-44.0); MEAN CORPUSCULAR HEMOGLOBIN 31.8 pg (27.0-33.0); MEAN CORPUSCULAR HGB CONC 35.2 g/dl (32.0-36.5); MEAN CORPUSCULAR VOLUME 90.4 fl (80.0-96.0); MONO # 0.7 10^3/uL (0.0-0.8); MONO % 9.4 % (0.0-5.0); NEUTROPHILS # 3.3 10^3/uL (1.8-7.7); NEUTROPHILS % 45.8 % (36.0-66.0); PLATELET COUNT, AUTOMATED 290 10^3/uL (150-450); RED BLOOD COUNT 4.56 10^6/uL (4.30-6.10); WHITE BLOOD COUNT 7.2 10^3/uL (4.0-10.0)
[2018-08-04 06:42] LABS: ALT/SGPT 66 U/L (12-78); BILIRUBIN,TOTAL 0.8 MG/DL (0.2-1.0); BLOOD UREA NITROGEN 8 MG/DL (7-18); CALCIUM LEVEL 8.3 MG/DL (8.5-10.1); CARBON DIOXIDE LEVEL 25 MEQ/L (21-32); CHLORIDE LEVEL 110 MEQ/L (98-107); CHOLESTEROL LEVEL 173 MG/DL (<200); CREATININE FOR GFR 0.95 MG/DL (0.70-1.30); GLOMERULAR FILTRATION RATE > 60.0 (>60); GLUCOSE, FASTING 81 MG/DL (70-100); POTASSIUM SERUM 4.4 MEQ/L (3.5-5.1); SODIUM LEVEL 140 MEQ/L (136-145); TRIGLYCERIDES LEVEL 152 MG/DL (<150)
[2018-08-04 06:43] LABS: ALBUMIN 3.1 GM/DL (3.2-5.2); CHOLESTEROL RISK RATIO 3.604 (<5); HDL CHOLESTEROL 48 MG/DL (>40); LDL CHOLESTEROL 95 MG/DL (<100); LIPASE 117 U/L (73-393); MAGNESIUM LEVEL 2.1 MG/DL (1.8-2.4); NON-HDL-C 125 MG/DL; TOTAL PROTEIN 6.4 GM/DL (6.4-8.2)
[2018-08-04] MEDS ORDERED: OXYC1TAB23 PO (09:36)
--- NOTE | 2018-08-04 09:44 | DS.PDOC ---
Discharge Summary General Date of Admission Aug 02, 2018 at 23:17 Date of Discharge 08/04/18 Attending Physician: BRENNEN LR MD Discharge Summary PROCEDURES PERFORMED DURING STAY: None. ADMITTING DIAGNOSES: 1. Acute pancreatitis. DISCHARGE DIAGNOSES: 1. Acute pancreatitis. COMPLICATIONS/CHIEF COMPLAINT: Elevated Lipase, Renal Colic On Right Side. HISTORY OF PRESENT ILLNESS: 32 year old male with PMH of Hypertension, kidney stones, asthma, anxiety, depression presented to ED with sudden onset of severe right sided flank pain which started around 8 pm today. The pateint was at work and was sitting down when he suddenly having this unbearable pain in his right flank going to the back which caused him to bend over and made him throw up. His pain was sharp stabbing in character, 10/10 in intensity in the right flank radiating to the back. He had a similar attack 2 days ago but milder in intensity when he passed 2 small stones then that pain had resolved spontaneously. He also has been having loose stools 2 to 3 times a day for the passed 2 days which is unsuual as normally he has a bowel movement every other day. CT abdomen without contrast in the ED showed Subtle bilateral nephrocalcinosis and and punctate 1 mm nonobstructing intrarenal calculi without obstructing calculus, hydronephrosis or perinephric stranding. No other intraabdominal pathology. his lab work was significant for elevated lipase and elevated lactic acid and elevated WBC. Patient was admitted for ureteric colic with intractable pain requiring IV morphine, lactacidosis . Elevated lipase needs to be evaluated for pancreatitis.. HOSPITAL COURSE: Patient was admitted with the diagnosis of acute pancreatitis. He was kept nothing by mouth except ice chips later was progress to regular di et. Patient lipase slowly decreased and is within normal limits today. Repeat CT of the abdomen and pelvis with double contrast is essentially negative. Patient will be discharged home on by mouth Percocet 5, 325 one tablet by mouth 3 times a day when necessary for pain control [employer] registry number: [id number] Patient will follow up with his primary care physician's office in one week Counseling regarding avoidance of alcohol was done extensively. DISCHARGE MEDICATIONS: Please see below. ALLERGIES: Please see below. PHYSICAL EXAMINATION ON DISCHARGE: VITAL SIGNS: Please see below. GENERAL: Within normal limits HEENT: PERRLA NECK: Supple CARDIOVASCULAR EXAMINATION: S1, S2, regular RESPIRATORY EXAMINATION: Clear to A&P ABDOMINAL EXAMINATION: , Soft, nontender, bowel sounds present EXTREMITIES: No clubbing, cyanosis, edema SKIN: Normal NEUROLOGICAL EXAMINATION: Normal PSYCHIATRIC EXAMINATION: Normal LABORATORY DATA: Please see below. IMAGING: CT of the abdomen and pelvis with by mouth and IV contrast: Normal pancreas. No other pathology seen PROGNOSIS: Good ACTIVITY: As tolerated. DIET: Regular DISCHARGE PLAN: Follow with PCP in one week DISPOSITION: . Home DISCHARGE INSTRUCTIONS: 1. Rest. Advised for one week. ITEMS TO FOLLOWUP ON ON OUTPATIENT: 1. Follow-up with PCP in one week. DISCHARGE CONDITION: Stable. TIME SPENT ON DISCHARGE: 25 minutes. Vital Signs/I&Os Vital Signs Date Time Temp Pulse Resp B/P (MAP) Pulse Ox O2 Delivery O2 Flow Rate FiO2 08/04/18 09:13 18 08/04/18 06:00 97.0 61 145/86 (105) 98 08/03/18 00:07 Room Air I&O- Last 24 Hours up to 6 AM 08/04/18 06:00 Intake Total 1020 ml Output Total 1750 ml Balance -730 ml Laboratory Data Labs 24H Laboratory Tests 2 08/04/18 05:34: Immature Granulocyte % (Auto) 0.3, White Blood Count 7.2, Red Blood Count 4.56, Hemoglobin 14.5, Hematocrit 41.2L, Mean Corpuscular Volume 90.4, Mean Corpuscular Hemoglobin 31.8, Mean Corpuscular Hemoglobin Concent 35.2, Red Cell Distribution Width 11.9, Platelet Count 290, Neutrophils (%) (Auto) 45.8, Ly mphocytes (%) (Auto) 41.2, Monocytes (%) (Auto) 9.4H, Eosinophils (%) (Auto) 2.6, Basophils (%) (Auto) 0.7, Neutrophils # (Auto) 3.3, Lymphocytes # (Auto) 3.0, Monocytes # (Auto) 0.7, Eosinophils # (Auto) 0.2, Basophils # (Auto) 0.1, Nucleated Red Blood Cells % (auto) 0.0, Anion Gap 5L, Glomerular Filtration Rate > 60.0, Blood Urea Nitrogen 8, Creatinine 0.95, Sodium Level 140, Potassium Level 4.4, Chloride Level 110H, Carbon Dioxide Level 25, Calcium Level 8.3L, Aspartate Amino Transf (AST/SGOT) 22, Alanine Aminotransferase (ALT/SGPT) 66, Alkaline Phosphatase 66, Total Bilirubin 0.8#, Triglycerides Level 152H, LDL Cholesterol 95, Total Protein 6.4, Albumin 3.1#L, Magnesium Level 2.1, Albumi n/Globulin Ratio 0.94L, Total Cholesterol 173, Non-HDL Cholesterol (LDL + VLDL) 125, Total HDL Cholesterol 48, Cholesterol/HDL Ratio 3.604, Lipase 117 CBC/BMP Laboratory Tests 08/04/18 05:34 Red Blood Count 4.56, Mean Corpuscular Volume 90.4, Mean Corpuscular Hemoglobin 31.8, Mean Corpuscular Hemoglobin Concent 35.2, Red Cell Distribution Width 11.9, Neutrophils (%) (Auto) 45.8, Lymphocytes (%) (Auto) 41.2, Monocytes (%) (Auto) 9.4 H, Eosinophils (%) (Auto) 2.6, Basophils (%) (Auto) 0.7, Neutrophils # (Auto) 3.3, Lymphocytes # (Auto) 3.0, Monocytes # (Auto) 0.7, Eosinophils # (Auto) 0.2, Basophils # (Auto) 0.1, Calcium Level 8.3 L, Aspartate Amino Transf (AST/SGOT) 22, Alanine Aminotransferase (ALT/SGPT) 66, Alkaline Phosphatase 66, Total Bilirubin 0.8 #, Triglycerides Level 152 H, LDL Cholesterol 95, Total Protein 6.4, Albumin 3.1 #L Microbiology Microbiology 08/02/18 Blood Culture - Preliminary, Resulted No growth after 24 hours . All specim... 08/02/18 Blood Culture - Preliminary, Resulted No growth after 24 hours . All specim... Discharge Medications Scheduled PRN Oxycodone HCl/Acetaminophen (Oxycodone-Acetaminophen 5-325) 1 Each Tablet, 1 TAB PO TIDP PRN for pain Allergies Coded Allergies: No Known Allergies (Unverified , 11/09/17) BRENNEN LR MD Aug 04, 2018 09:44
== END 2018-08-04 12:03 | disposition home or self-care (01) | DRG 282 ==
LOC: M ED 20:36 → M ED INP 23:17 → M MSPAV 08-03 00:21
PROVIDERS: ADMIT Internal Medicine Nephrology; ATTEND Internal Medicine
DX: K85.90 Acute pancreatitis without necrosis or infection, unspecified (principal); E87.2 Acidosis; I10 Essential (primary) hypertension; J45.909 Unspecified asthma, uncomplicated; F41.9 Anxiety disorder, unspecified; F32.9 Major depressive disorder, single episode, unspecified; E87.6 Hypokalemia

== ENCOUNTER 2019-08-27 14:52 | Emergency (ER) | payer OTHER ==
[~2019-08-27] VITALS: Ht 180.3 cm; Wt 100.5 kg
[~2019-08-27 14:52] MED LIST changes: +OXYC1TAB23 PO
[2019-08-27] MEDS ORDERED: LISI10TA4 PO (15:03)
--- NOTE | 2019-08-27 16:02 | REP ---
Clinical: Altered mental status . Comparison: None. Findings: The ventricles, sulci, and cisterns are normal in position and appearance. Sands-white differentiation is maintained. No acute intracranial hemorrhage, mass/mass effect, pathology or trauma/injury. No evidence for acute infarction. No extra-axial fluid collection. Calvarium is intact. Paranasal sinuses and mastoid air cells are clear. Impression: No evidence for acute intracranial hemorrhage or mass/mass effect. Electronically Signed by Gustabo Loja MD 08/27/2019 03:53 P
[2019-08-27 16:11] LABS: BASO # 0.1 10^3/uL (0.0-0.2); EOS # 0.2 10^3/uL (0.0-0.5); EOS % 1.9 % (0.0-3.0); HEMATOCRIT 44.5 % (42.0-52.0); HEMOGLOBIN 15.8 g/dl (13.5-17.5); LYMPH # 3.4 10^3/uL (1.5-5.0); LYMPH % 37.3 % (24.0-44.0); MEAN CORPUSCULAR HEMOGLOBIN 30.8 pg (27.0-33.0); MEAN CORPUSCULAR HGB CONC 35.5 g/dl (32.0-36.5); MEAN CORPUSCULAR VOLUME 86.7 fl (80.0-96.0); MONO # 0.7 10^3/uL (0.0-0.8); NEUTROPHILS # 4.6 10^3/uL (1.5-8.5); NEUTROPHILS % 51.2 % (36.0-66.0); PLATELET COUNT, AUTOMATED 393 10^3/uL (150-450); RED BLOOD COUNT 5.13 10^6/uL (4.30-6.10)
[2019-08-27 16:45] LABS: ALT/SGPT 40 U/L (12-78); BILIRUBIN,DIRECT < 0.1 MG/DL (0.0-0.2); BILIRUBIN,TOTAL 0.2 MG/DL (0.2-1.0); ETHYL ALCOHOL (ETHANOL) 0.288 % (0.000-0.010); THYROID STIMULATING HORMONE 0.341 uIU/ML (0.358-3.740); TOTAL PROTEIN 7.5 GM/DL (6.4-8.2)
--- NOTE | 2019-08-27 16:45 | REP ---
Clinical: Right knee pain Technique: AP, lateral, bilateral oblique and sunrise views. Findings: The osseous structures and joint spaces are intact and normal. There is no evidence for acute fracture or dislocation. Effusion cannot be excluded. Surrounding soft tissues are unremarkable. No subcutaneous emphysema or radiodense foreign body. Impression: No acute fracture or dislocation. Cannot exclude suprapatellar effusion. Electronically Signed by Gustabo Loja MD 08/27/2019 04:36 P
[2019-08-27 16:46] LABS: ACETAMINOPHEN LEVEL < 2.0 UG/ML (10.0-30.0)
[2019-08-27 17:39] LABS: AMPHETAMINES LEVEL URINE NEGATIVE (NEGATIVE); BARBITURATES URINE NEGATIVE (NEGATIVE); BENZODIAZEPINES URINE NEGATIVE (NEGATIVE); CANNABINOIDS URINE POSITIVE (NEGATIVE); COCAINE METABOLITE URINE NEGATIVE (NEGATIVE); METHADONE URINE NEGATIVE (NEGATIVE); OPIATES URINE NEGATIVE (NEGATIVE); PHENCYCLIDINE URINE NEGATIVE (NEGATIVE)
[2019-08-27 19:32] VITALS: BP 139/78
--- NOTE | 2019-08-28 08:02 | ECGEPIP ---
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
== END 2019-08-27 19:34 | disposition home or self-care (01) ==
LOC: M ED 14:52
DX: F10.129 Alcohol abuse with intoxication, unspecified (principal); Y90.1 Blood alcohol level of 20-39 mg/100 ml; S80.01XA Contusion of right knee, initial encounter; X58.XXXA Exposure to other specified factors, initial encounter; Y92.89 Other specified places as the place of occurrence of the external cause; I10 Essential (primary) hypertension; J44.9 Chronic obstructive pulmonary disease, unspecified; Z79.899 Other long term (current) drug therapy; Z88.8 Allergy status to other drugs, medicaments and biological substances; F17.210 Nicotine dependence, cigarettes, uncomplicated
CPT/HCPCS: 36415; 70450; 73564; 80047; 80076; 80307; 84443; 85025; 93005; 93041; 94760; 99285; G0480

== ENCOUNTER 2019-09-03 20:58 | Emergency (ER) | payer OTHER ==
[~2019-09-03 20:58] MED LIST changes: +LISI10TA4 PO
[2019-09-03] MEDS ORDERED: NITROGLYCERIN 0.4 MG SUBL TABLET ONE (22:12)
[2019-09-03] MEDS ORDERED: NITROGLYCERIN 0.4 MG SUBL TABLET As Ordered ONE (22:12)
[2019-09-04] MEDS ORDERED: ISOVUE-370 76% 100ML VIAL As Ordered ONE (00:47)
[2019-09-04] MEDS ORDERED: GI COCKTAIL 50ML BTL(HYOSCYAMINE/MAALOX/LIDOCAINE VISCOUS)(1:3:1) ONE (01:25)
[2019-09-04] MEDS ORDERED: MORPHINE 4 MG/ML 1ML VIAL/SYRINGE (J2270) ONE (01:25)
[2019-09-04] MEDS ORDERED: MORPHINE 4 MG/ML 1ML VIAL/SYRINGE (J2270) As Ordered ONE (01:25)
[2019-09-04] MEDS ORDERED: GI COCKTAIL 50ML BTL(HYOSCYAMINE/MAALOX/LIDOCAINE VISCOUS)(1:3:1) As Ordered ONE (01:25)
[2019-10-12 08:47] LABS: INR 0.94; PARTIAL THROMBOPLASTIN TIME 27.7 SECONDS (25.0-38.4); PROTHROMBIN TIME 12.8 SECONDS (11.8-14.0)
[2019-10-12 10:20] LABS: BASO # 0.1 10^3/uL (0.0-0.2); BASO % 0.5 % (0.0-1.0); EOS # 0.1 10^3/uL (0.0-0.5); EOS % 1.4 % (0.0-3.0); HEMOGLOBIN 16.7 g/dl (13.5-17.5); LYMPH # 3.2 10^3/uL (1.5-5.0); LYMPH % 33.9 % (24.0-44.0); MEAN CORPUSCULAR HEMOGLOBIN 32.1 pg (27.0-33.0); MEAN CORPUSCULAR HGB CONC 36.3 g/dl (32.0-36.5); MEAN CORPUSCULAR VOLUME 88.5 fl (80.0-96.0); MONO # 0.9 10^3/uL (0.0-0.8); MONO % 9.1 % (0.0-5.0); NEUTROPHILS # 5.1 10^3/uL (1.5-8.5); NEUTROPHILS % 54.8 % (36.0-66.0); PLATELET COUNT, AUTOMATED 353 10^3/uL (150-450); WHITE BLOOD COUNT 9.3 10^3/uL (4.0-10.0)
--- NOTE | 2019-10-22 16:24 | ECGEPIP ---
SINUS TACHYCARDIA ABNORMAL RHYTHM ECG NO OLD AVAILABLE SEE SCANNED DOWNTIME REPORT MTDD
--- NOTE | 2019-10-23 13:40 | ECGEPIP ---
SINUS RHYTHM ST ELEVATION, PROBABLY EARLY REPOLARIZATION, CLINICAL CORRELATE FOR ISCHEMIA BORDERLINE ECG NO OLD AVAILABLE SEE SCANNED DOWNTIME REPORT MTDD
[2019-11-14 15:12] LABS: ALBUMIN 3.8 GM/DL (3.2-5.2); ALT/SGPT 39 U/L (12-78); BILIRUBIN,DIRECT 0.1 MG/DL (0.0-0.2); BILIRUBIN,TOTAL 0.6 MG/DL (0.2-1.0); BLOOD UREA NITROGEN 13 MG/DL (7-18); CALCIUM LEVEL 8.9 MG/DL (8.5-10.1); CARBON DIOXIDE LEVEL 24 MEQ/L (21-32); CHLORIDE LEVEL 104 MEQ/L (98-107); CHOLESTEROL LEVEL 224 MG/DL (<200); CHOLESTEROL RISK RATIO 3.343 (<5); CK-MB VALUE MASS < 1.0 NG/ML (<3.6); CPK CREATINE PHOSPHOKINASE 122 U/L (39-308); CREATININE FOR GFR 0.92 MG/DL (0.70-1.30); GLOMERULAR FILTRATION RATE > 60.0 (>60); GLUCOSE, FASTING 118 MG/DL (70-100); HDL CHOLESTEROL 67 MG/DL (>40); LIPASE 255 U/L (73-393); MB/CK RELATIVE INDEX 0.82 (< OR =4); NON-HDL-C 157 MG/DL; POTASSIUM SERUM 4.8 MEQ/L (3.5-5.1); SODIUM LEVEL 137 MEQ/L (136-145); TOTAL PROTEIN 7.7 GM/DL (6.4-8.2); TRIGLYCERIDES LEVEL 401 MG/DL (<150); TROPONIN I < 0.02 NG/ML (< 0.10)
[2019-11-14 15:12] LABS: CK-MB VALUE MASS < 1.0 NG/ML (<3.6); CPK CREATINE PHOSPHOKINASE 59 U/L (39-308); MB/CK RELATIVE INDEX 1.69 (< OR =4); TROPONIN I < 0.02 NG/ML (< 0.10)
== END 2019-09-04 05:45 | disposition home or self-care (01) ==
LOC: M ED 20:58
DX: R07.9 Chest pain, unspecified (principal); R10.84 Generalized abdominal pain; I10 Essential (primary) hypertension; Q05.9 Spina bifida, unspecified; Z82.49 Family history of ischemic heart disease and other diseases of the circulatory system; Z79.899 Other long term (current) drug therapy; F17.200 Nicotine dependence, unspecified, uncomplicated
CPT/HCPCS: 71046; 71275; 74177; 80048; 80061; 80076; 82550; 82553; 83690; 85025; 85610; 85730; 93005; 96374; 99284; J2270; Q9967

== ENCOUNTER 2020-01-21 13:36 | Inpatient (IN) | payer OTHER ==
[~2020-01-21] VITALS: Ht 180.3 cm; Wt 104.5 kg
[2020-01-21] MEDS ORDERED: ONDANSETRON 4MG/2ML VIAL IV ONE (14:15)
[2020-01-21] MEDS ORDERED: MORPHINE 4 MG/ML 1ML VIAL/SYRINGE (J2270) IV ONE (14:15)
[2020-01-21] MEDS ORDERED: NS 1,000 ML IV ONE ×2 (14:15→15:15)
[2020-01-21 14:48] LABS: BASO # 0.1 10^3/uL (0.0-0.2); BASO % 0.5 % (0.0-1.0); EOS # 0.1 10^3/uL (0.0-0.5); HEMATOCRIT 45.6 % (42.0-52.0); HEMOGLOBIN 15.4 g/dl (13.5-17.5); LYMPH # 2.4 10^3/uL (1.5-5.0); LYMPH % 25.8 % (24.0-44.0); MEAN CORPUSCULAR HEMOGLOBIN 29.1 pg (27.0-33.0); MEAN CORPUSCULAR HGB CONC 33.8 g/dl (32.0-36.5); MONO # 0.6 10^3/uL (0.0-0.8); MONO % 6.9 % (0.0-5.0); NEUTROPHILS % 65.4 % (36.0-66.0); PLATELET COUNT, AUTOMATED 378 10^3/uL (150-450); WHITE BLOOD COUNT 9.1 10^3/uL (4.0-10.0)
[2020-01-21 14:53] LABS: ALBUMIN 3.7 GM/DL (3.2-5.2); ALT/SGPT 38 U/L (12-78); BILIRUBIN,DIRECT < 0.1 MG/DL (0.0-0.2); BILIRUBIN,TOTAL 0.3 MG/DL (0.2-1.0); BLOOD UREA NITROGEN 15 MG/DL (7-18); CALCIUM LEVEL 9.2 MG/DL (8.5-10.1); CARBON DIOXIDE LEVEL 22 MEQ/L (21-32); CHLORIDE LEVEL 103 MEQ/L (98-107); CK-MB VALUE MASS 2.2 NG/ML (<3.6); CPK CREATINE PHOSPHOKINASE 85 U/L (39-308); CREATININE FOR GFR 1.05 MG/DL (0.70-1.30); GLOMERULAR FILTRATION RATE > 60.0 (>60); GLUCOSE, FASTING 113 MG/DL (70-100); LIPASE 94 U/L (73-393); MB/CK RELATIVE INDEX 2.59 (< OR =4); POTASSIUM SERUM 4.9 MEQ/L (3.5-5.1); SODIUM LEVEL 138 MEQ/L (136-145); TOTAL PROTEIN 7.6 GM/DL (6.4-8.2); TROPONIN I < 0.02 NG/ML (< 0.10)
[2020-01-21 14:58] LABS: INR 0.95; PROTHROMBIN TIME 12.9 SECONDS (12.5-14.3)
[2020-01-21 14:59] LABS: PARTIAL THROMBOPLASTIN TIME 29.2 SECONDS (24.2-38.5)
[2020-01-21] MEDS ORDERED: ISOVUE-370 76% 100ML VIAL As Ordered ONE (15:06)
--- NOTE | 2020-01-21 15:39 | REP ---
INDICATION: pain around lumbar surgery site. COMPARISON: Comparison CT imaging from September 04, 2019. Comparison MRI study of the lumbar spine February 28, 2018.. TECHNIQUE: Helical scanning is acquired. 4 mm axial images are generated. Coronal and sagittal MPR images are provided. FINDINGS: Preliminary digital field scout radiograph shows scattered air-filled small bowel loops in the central abdomen. Patient is status post fusion of the L5-S1 level with a transpedicle screws and interconnecting rods and intervertebral disc spacer. Axial images demonstrate that a laminectomy has been performed at L5. The rods and screws appear well positioned and alignment is normal. No acute fracture is seen. There is bone graft fusion density amongst the posterior elements bilaterally. A donor site for this is seen in the right posterior iliac bone. No lumbar vertebral body fracture or malalignment is seen. The L4-5 and L3-4 disc levels remain unremarkable and unchanged. IMPRESSION: Status post L5-S1 transpedicle screw and posterior element and intervertebral disc spacer fusion with L5 laminectomy.. Good alignment. No traumatic abnormality. <Electronically signed by Derrick Abraham > 01/21/20 [id number]
[2020-01-21 15:48] LABS: ERYTHROCYTE SEDIMENTATION RATE 5 mm/hr (0-15)
--- NOTE | 2020-01-21 15:50 | REP ---
INDICATION: sev LLQ , hx of divert, pain around lumbar surgery site. COMPARISON: Abdomen and pelvis CT studies dated 08/03/2018 and 09/04/2019. TECHNIQUE: Abdomen and pelvis CT with IV contrast, without bowel contrast FINDINGS: The patient has had interval surgical fusion of the spine at L5-S1 and a surgically placed L5-S1 disc spacer since the prior CT studies. There are bilateral pedicle screws and arch bars at L5-S1 as well as the L5-S1 disc spacer. There are no lytic, blastic or destructive skeletal changes related to the surgical fusion. The hepatic parenchyma is homogeneous. There are surgical clips in the gallbladder fossa. The pancreas and spleen are unremarkable. The adrenals, kidneys and abdominal aorta are unremarkable. There is no bowel distention or obstruction. The mesentery is unremarkable. There is diffuse wall thickening of the ascending colon, transverse colon and descending colon. This is compatible with colitis in the appropriate clinical setting. There is no mesenteric adenopathy or ascites. Pelvis: The appendix is unremarkable. There is no ascites or adenopathy. The bladder is unremarkable. IMPRESSION: Wall thickening of the ascending colon, transverse colon, descending colon and proximal sigmoid colon, compatible with colitis in the appropriate clinical setting. There is no ascites or pneumoperitoneum. There is no bowel distention or obstruction. There are no focal fluid collection to suggest abscess. There are no lytic, blastic or destructive skeletal changes, particularly in relation to the lumbar spine surgical fusion. There are no soft tissue fluid collections to suggest abscess or hematoma, particularly at the lumbar spine surgical fusion site. There is a new ovoid lucency with a calcified rim posteriorly in the right iliac wing, likely a bone graft donor site for the lumbar surgery. <Electronically signed by Luis Wiggins > 01/21/20 [id number]
--- NOTE | 2020-01-21 15:51 | REP ---
INDICATION: pain after fall. COMPARISON: None. TECHNIQUE: Four views. FINDINGS: Four views of the right ankle demonstrate intact ankle mortise. There is mild lateral soft tissue swelling. No fracture is seen. Soft tissue swelling extends over the lateral aspect of the midfoot. Study is otherwise unremarkable. IMPRESSION: Lateral soft tissue swelling. No fracture seen. <Electronically signed by Derrick Abraham > 01/21/20 [id number]
--- NOTE | 2020-01-21 15:52 | REP ---
INDICATION: tachycardia. COMPARISON: September 03, 2019. TECHNIQUE: Two views.. FINDINGS: The lungs are well inflated and free of infiltrate. The pleural angles are sharp. The heart size is normal. Pulmonary vasculature is not increased. No significant bony abnormality is seen. Monitoring electrodes are seen. IMPRESSION: Negative chest x-ray. <Electronically signed by Derrick Abraham > 01/21/20 [id number]
[2020-01-21] MEDS ORDERED: HYDROMORPHONE HCL 0.5 MG/ 0.5 ML SYRINGE (J1170 PER 1) IV ONE ×2 (16:00→17:45)
[2020-01-21] MEDS ORDERED: METOCLOPRAMIDE INJ 10MG/2ML VIAL (J2765 PER 1) IV ONE (16:00)
--- NOTE | 2020-01-21 16:01 | REP ---
INDICATION: pain after fall. COMPARISON: August 27, 2019.. TECHNIQUE: Four views. No sunrise. FINDINGS: Four views of the right knee demonstrate normal bones, joints, and soft tissues. No fracture or subluxation is seen. No opaque foreign body noted. IMPRESSION: Negative four view right knee series.. <Electronically signed by Derrick Abraham > 01/21/20 [id number]
[2020-01-21] MEDS ORDERED: metroNIDAZOLE (FLAGYL) 500MG TABLET PO ONE (16:30)
[2020-01-21] MEDS ORDERED: CIPROFLOXACIN 500MG TABLET PO ONE (16:30)
[2020-01-21] MEDS ORDERED: ACET500T15 PO (17:05)
--- NOTE | 2020-01-21 17:38 | HPEPDOC ---
[facility] Medical History & Physical Date of Admission Jan 21, 2020 Date of Service: Jan 21, 2020 History and Physical CHIEF COMPLAINT: Abdominal Pain HISTORY OF PRESENT ILLNESS: 34M who presents with abdominal pain to the ED. reports pain started 2 days ago and is constant and has been worsening to the point of being unbearable which prompted him to present to hospital. It's described as 10/10 initially, improved to 7/10 s/p morphine/dilaudid. Sharp, radiates to right groin, exacerbated by movement. Alleviated with rest. Not associated with diarrhea. Associated with some nausea and vomiting. Denies any fevers or chills. Of potential relevance patient reports history of both pancreatitis and diverticulitis in the past. He's also recently underwent lumbosacral spine fusion in September in [place] with follow up with his orthopedic surgeon scheduled for feb 02. Patient also reports a recent fall where he tripped on his right ankle and landed on his left abdomen on the same day that his abdominal pain started. In the ED CT abdomen who done which was suggestive of colitis, although patient doesn't have leukocytosis, or fever, and no diarrhea. Patient was evaluated by Dr Surgeon Dr Houston. Patient was given 1 dose ciprofloxacin and flagyl as well as morphine and Dilaudid. PAST MEDICAL HISTORY: HTN GERD Spina Bifida Anxiety and depression ?CAD reported history NSTEMI at age 28. 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 ALLERGIES: Please see below. REVIEW OF SYSTEMS: 10 Point ROS completed negative except as in HPI HOME MEDICATIONS: Please see below. PHYSICAL EXAMINATION: Constitutional: Awake and alert, in some distress, holding his abdomen. ENT: Sclera are clear. Mucosa is moist. No jaundice. Respiratory: Lungs CTA bilaterally. No respiratory distress. No use of accessory muscles. Cardiovascular: Regular heart rate. Tachycardia 115 at bedside. Gastrointestinal: Abdomen is soft, obese, non distended, +BS. LLQ tenderness on palpation. Questionable if guarding is real vs exaggerated. When speaking to patient and he is distracted there is no guarding. No bruising over left abdomen. Musculoskeletal: No LE edema. RUE 5/5, LUE 5/5, BLE 5/5. Right ankle/foot swollen since his fall 2 days ago when he sprained his ankle. Neurologic: No focal neurological deficit. Mental Status: A&O x3, anxious, tearful at times. Skin: Warm, dry. Lower back incision healing well. Multiple tattos over body including on chest. LABORATORY DATA: See below. IMAGING: CT ABD/PEL W/IV CONTRAST ONLY 01/21/2020 IMPRESSION: Wall thickening of the ascending colon, transverse colon, descending colon and proximal sigmoid colon, compatible with colitis in the appropriate clinical setting. There is no ascites or pneumoperitoneum. There is no bowel distention or obstruction. There are no focal fluid collection to suggest abscess. There are no lytic, blastic or destructive skeletal changes, particularly in relation to the lumbar spine surgical fusion. There are no soft tissue fluid collections to suggest abscess or hematoma, particularly at the lumbar spine surgical fusion site. There is a new ovoid lucency with a calcified rim posteriorly in the right iliac wing, likely a bone graft donor site for the lumbar surgery MICROBIOLOGY: Please see below. Assessment/Plan # Abdominal pain: possible colitis seen on CT however after discussion with Dr Houston, and in absence of leukocytosis, fever, or diarrhea its not very convincing. Will continue ciprofloxacin and Flagyl for now and re-evaluate tomorrow. In the meatime will give pain control with morphine and dilaudid for breakthrough pain. Zofran PRN nausea. baclofen for possible underlying MSK pain causing the abdominal pain s/p fall at the same time as the onset of the pain. Fu UA, BCx. # Tachycardia: likely related to anxiety and pain. Pain control, IVFs. # Lactic acidosis: 3.7 initially down to 3.0 likely from vomiting. IVFs. Repeat lactate. # Recent lumbar surgery: was getting PT OP and using walker, evaluation by PT/OT. # Left ankle sprain: PT/OT. # HTN: continue home meds. monitor and titrate. # DVT Prophylaxis: heparin Zan Yousef Hospitalist Vital Signs Vital Signs Date Time Temp Pulse Resp B/P (MAP) Pulse Ox O2 Delivery O2 Flow Rate FiO2 01/21/20 16:45 96.7 123 147/84 (105) 98 01/21/20 16:20 20 Room Air Laboratory Data Labs 24H Laboratory Tests 2 01/21/20 14:09: Immature Granulocyte % (Auto) 0.4, Neutrophils (%) (Auto) 65.4, Lymphocytes (%) (Auto) 25.8, Monocytes (%) (Auto) 6.9H, Eosinophils (%) (Auto) 1.0, Basophils (%) (Auto) 0.5, Neutrophils # (Auto) 6.0, Lymphocytes # (Auto) 2.4, Monocytes # (Auto) 0.6, Eosinophils # (Auto) 0.1, Basophils # (Auto) 0.1, Nucleated Red Blood Cells % (auto) 0.0, Erythrocyte Sedimentation Rate 5, Prothrombin Time 12.9, Prothromb Time International Ratio 0.95, Activated Partial Thromboplast Time 29.2, Anion Gap 13, Glomerular Filtration Rate > 60.0, Calcium Level 9.2, Total Bilirubin 0.3, Direct Bilirubin < 0.1, Aspartate Amino Transf (AST/SGOT) 10, Alanine Aminotransferase (ALT/SGPT) 38, Alkaline Phosphatase 105, Total Creatine Kinase 85, Creatine Kinase MB 2.2, Creatine Kinase MB Relative Index 2.59, Troponin I < 0.02, C-Reactive Protein, Quantitative 0.30, Total Protein 7.6, Albumin 3.7, Albumin/Globulin Ratio 0.9, Lipase 94 01/21/20 14:10: Lactic Acid Level 3.7*H 01/21/20 16:39: Coronavirus (COVID-19)(PCR) NEGATIVE CBC/BMP Laboratory Tests 01/21/20 14:09 Home Medications Scheduled Lisinopril (Lisinopril) 10 Mg Tablet, 10 MG PO DAILY Scheduled PRN Acetaminophen (Acetaminophen) 500 Mg Tablet, 1,000 MG PO Q6H PRN for PAIN Allergies Coded Allergies: gabapentin (Verified Allergy, Intermediate, hives, 01/21/20) ketorolac (Verified Allergy, Intermediate, HIVES, 01/21/20) A-FIB/CHADSVASC A-FIB History Current/History of A-Fib/PAF?: No YOUSEFZAN MD Jan 21, 2020 17:38
[2020-01-21] MEDS ORDERED: GLUCAGON INJ 1MG VIAL SC PRN (17:45)
[2020-01-21] MEDS ORDERED: GLUCOSE 4GM CHEW TABLET PO PRN (17:45)
[2020-01-21] MEDS ORDERED: DEXTROSE 50% 50 ML SYRINGE IV PRN (17:45)
[2020-01-21] MEDS ORDERED: MOM 30ML SUSPENSION UDC PO PRN (17:45)
[2020-01-21] MEDS ORDERED: ACETAMINOPHEN TAB 650MG DOSE (2X325MG) PO PRN (17:45)
[2020-01-21] MEDS ORDERED: MAALOX 30 ML SUSP *UDC PO PRN (17:45)
[2020-01-21] MEDS: NS 1,000 ML IV SCH (18:27)
[2020-01-21 19:11] LABS: HEMOGLOBIN A1c 5.5 %
[2020-01-21 19:19] LABS: CHOLESTEROL RISK RATIO 3.203 (<5)
--- NOTE | 2020-01-21 20:32 | CR ---
CONSULTATION DATE: 01/21/2020 REQUESTING PHYSICIAN: Dr. Walters REASON FOR CONSULTATION: Left lower quadrant abdominal discomfort. HISTORY OF PRESENT ILLNESS: The patient is a 34-year-old man who presented to the Emergency Department at about 1:30 in the afternoon on the 20 of January. The patient reported a 2-day history of some left lower quadrant discomfort. He reported that it had become worse on the evening of the and through the night and became unbearable on the morning of the . The patient reported no fevers or chills. He denied nausea or vomiting prior to coming to the Emergency Department though had some mild nausea in the Emergency Department. He describes a constant aching pain in the left lower quadrant with occasional sharper, stabbing episodes that last as long as 30 minutes. He reports a history of prior diverticulitis, though I have no study. He had been diagnosed with pancreatitis on a prior admission in July of 2018 with a maximum lipase of 2,100. The patient had undergone a lumbosacral spine fusion in [place] in mid to late September 2019. He reports having been hospitalized for approximately 6 days. He reports that he was doing well and was doing physical therapy and walking with a walker. He describes having had an episode where he picked up his young child and twisted and had recurrence of pain in his back. The patient has had no history of jaundice or dark urine. There is no history of hepatitis. In the Emergency Department he was evaluated with laboratory studies, physical exam, and a CT scan. The CT scan was interpreted by the radiologist as suggesting thickening in the colon, consistent with colitis. Dr. Walters evaluated the patient and felt that he had significant left lower quadrant pain with rebound, and I was asked to evaluate the patient. MEDICATIONS: The patient's only reported medications at the time of this admission are: 1. Tylenol one gram p.o. q. 6 hours as needed for pain. 2. Lisinopril 10 mg p.o. daily. ALLERGIES: 1. Gabapentin. 2. Ketoralac. PAST MEDICAL HISTORY: The patient's past medical history is significant for: 1. Some hypertension. 2. He has a reported history of asthma. 3. He reports a history of some gastric reflux. 4. He reports a history of diverticulitis, but there is nothing in his [facility] record to corroborate this. 5. The pancreatitis is noted in an admission in 2019 where he showed a transient rise in his lipase. 6. He has had renal stones previously. 7. He does admit to some anxiety and depression. PAST SURGICAL HISTORY: The patient's past surgical history is significant for: 1. The patient had a cholecystectomy in late 2017. 2. He had his spinal fusion in September of 2019. FAMILY HISTORY: Noncontributory. SOCIAL HISTORY: The patient is a current smoker. He does drink alcohol and has been previously seen for a history of alcohol overuse. REVIEW OF SYSTEMS: The patient denies chest pain or palpitations. He denies angina. He has no cough, wheezing or shortness of breath. He denies dysuria or hematuria. He has had no diarrhea or constipation and reports a bowel movement yesterday. He denies any history of DVT or pulmonary embolus. PHYSICAL EXAMINATION: GENERAL APPEARANCE: An obese appearing, young, white male lying on the stretcher, holding his stomach. VITAL SIGNS: His most recent vital signs showed a pulse of approximately 114 with a blood pressure of 169/73 and a pulse oximetry of 96. He had been afebrile during his stay in the Emergency Department. HEENT: Sclerae are anicteric. Mucous membranes are moist. NECK: He has no cervical bruits or mass. HEART: Regular rhythm but he is mildly tachycardic. LUNGS: Clear. ABDOMEN: Obese. He has multiple tattoos. There is no sign of hernia, either umbilical or inguinal. He does have bowel sounds present in all four quadrants. He reports pain in his left lower quadrant. There is no evident skin discoloration or abscess. The abdomen is full but generally soft. He has some guarding in the left lower quadrant. There is no significant tenderness on gentle palpation in the abdomen including the left lower quadrant. BACK: His back incision appears to be well healed. EXTREMITIES: Without edema and he has palpable radial and pedal pulses. LABORATORY STUDIES: White count of 9 with a differential showing 65% neutrophils, 26% lymphocytes and 7% monocytes. Hemoglobin is 15 with a hematocrit of 46 and a platelet count of 378,000. ESR was only 5. Coagulation studies were normal. Chemistry profile showed a sodium of 138, potassium 4.9, chloride 103, CO2 of 22, BUN of 15, creatinine 1.0 and a glucose of 113. He had normal liver function tests. Troponin is less than 0.02. CRP is normal at 0.30 and his protein and albumin are normal. He had a lipase normal at 94. Lactic acid was 3.7. COVID serology was negative. IMAGING DATA: He had a CT scan of the abdomen and pelvis that was interpreted by the radiologist as suggesting some wall thickening of the ascending colon, transverse colon, and descending colon and proximal sigmoid colon, compatible with colitis in the appropriate clinical setting. There was no ascites and no pneumoperitoneum with no sign of bowel obstruction. He had multiple other x-rays including a right ankle series and right knee series. The knee x-ray was normal and the ankle x-ray showed only some lateral swelling. Chest x-ray was negative for any acute disease. He had a CT scan of the lumbar spine which showed his L-5/S-1 fixation with good alignment and no evidence of traumatic injury. IMPRESSION: Abdominal pain, left lower quadrant of uncertain etiology I do not believe that this represents colitis. He does not have symptoms of significant nausea or vomiting and has had no diarrhea. He has had no fevers or chills. He has a white count that is normal with a normal differential and his ESR and CRP are both normal. There is no sign of diverticulitis or pancreatitis on this occasion. It may be that his pain represents musculoskeletal pain. PLAN: I called Dr. Walters and spoke with him and indicated that I did not feel this was consistent with colitis and that there was not evidence of an acute intraabdominal infectious process. We discussed the possibility that this could represent some sort of drug seeking behavior. At this point we agreed that Dr. Walters would continue the antibiotics at least overnight and provide analgesics as needed. The patient will be followed closely to see if any new signs or symptoms develop.
[2020-01-21 21:00] VITALS: BP 139/93
[2020-01-21] MEDS ORDERED: HumaLOG INSULIN (NovoLOG) PER UNIT SC SCH (21:00)
[2020-01-21] MEDS: metroNIDAZOLE 500 MG in IV 1 EA IV SCH (21:01)
[2020-01-21] MEDS: DOCUSATE SODIUM 100MG CAPSULE PO SCH (21:01)
[2020-01-21] MEDS: HEPARIN SOD (PORCINE) 5000UNITS/ML 1ML VIAL/SYRINGE SC SCH (21:02)
[2020-01-21] MEDS: MORPHINE 2 MG/ML 1ML VIAL (J2270) IV PRN (21:02)
[2020-01-22] VITALS (7 sets, daily range): BP systolic 136–167; BP diastolic 82–95
[2020-01-22] MEDS: NS 1,000 ML IV SCH ×3 (01:06→16:26)
[2020-01-22] MEDS: ONDANSETRON 4MG/2ML VIAL IV SCH ×6 (01:06→20:45)
[2020-01-22] MEDS: HYDROMORPHONE HCL 0.5 MG/ 0.5 ML SYRINGE (J1170 PER 1) IV PRN ×4 (01:06→21:43)
[2020-01-22] MEDS: BACLOFEN 5MG PER 1/2 TABLET PO SCH ×4 (01:09→20:44)
[2020-01-22] MEDS: MORPHINE 2 MG/ML 1ML VIAL (J2270) IV PRN ×5 (02:54→20:45)
[2020-01-22] MEDS: metroNIDAZOLE 500 MG in IV 1 EA IV SCH ×4 (04:18→20:44)
[2020-01-22] MEDS: CIPROFLOXACIN 400 MG in IV 1 EA IV SCH ×2 (05:39→16:18)
[2020-01-22] MEDS: HEPARIN SOD (PORCINE) 5000UNITS/ML 1ML VIAL/SYRINGE SC SCH ×3 (05:39→20:46)
[2020-01-22] MEDS ORDERED: HumaLOG INSULIN (NovoLOG) PER UNIT SC SCH (07:30)
[2020-01-22] MEDS: DOCUSATE SODIUM 100MG CAPSULE PO SCH ×2 (08:36→20:44)
[2020-01-22] MEDS: lisinopriL 10 MG TAB PO SCH (08:36)
[2020-01-22] MEDS: LIDOCAINE 5% (LIDODERM) PATCH TD SCH (08:36)
[2020-01-22 08:40] LABS: HEMATOCRIT 39.9 % (42.0-52.0); HEMOGLOBIN 13.5 g/dl (13.5-17.5); MEAN CORPUSCULAR HGB CONC 33.8 g/dl (32.0-36.5); MEAN CORPUSCULAR VOLUME 88.7 fl (80.0-96.0); PLATELET COUNT, AUTOMATED 280 10^3/uL (150-450); WHITE BLOOD COUNT 6.6 10^3/uL (4.0-10.0)
[2020-01-22 09:01] LABS: BLOOD UREA NITROGEN 13 MG/DL (7-18); CALCIUM LEVEL 8.3 MG/DL (8.5-10.1); CARBON DIOXIDE LEVEL 26 MEQ/L (21-32); CHLORIDE LEVEL 104 MEQ/L (98-107); CREATININE FOR GFR 1.03 MG/DL (0.70-1.30); GLOMERULAR FILTRATION RATE > 60.0 (>60); GLUCOSE, FASTING 87 MG/DL (70-100); POTASSIUM SERUM 3.8 MEQ/L (3.5-5.1); SODIUM LEVEL 137 MEQ/L (136-145)
--- NOTE | 2020-01-22 13:22 | ECGEPIP ---
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
--- NOTE | 2020-01-22 20:13 | IPNPDOC ---
Text Note Date of Service The patient was seen on 01/22/20. NOTE Subjective: Patient seen and examined at bedside. Doing better today. Abdominal pain less severe. Lidocaine patch helping the most. No overnight events. Has been tolerating his food. No more vomiting. Objective: Constitutional: Awake and alert, in some distress, holding his abdomen. ENT: Sclera are clear. Mucosa is moist. No jaundice. Respiratory: Lungs CTA bilaterally. No respiratory distress. No use of accessory muscles. Cardiovascular: Regular heart rate. Gastrointestinal: Abdomen is soft, obese, non distended, +BS. LLQ tenderness on palpation but significancy less than yesterday. Lidocaine patch in place. Musculoskeletal: No LE edema. RUE 5/5, LUE 5/5, BLE 5/5. Right ankle/foot swollen since his fall 2 days ago when he sprained his ankle. Neurologic: No focal neurological deficit. Mental Status: A&O x3, anxious, tearful at times. Skin: Warm, dry. Lower back incision healing well. Multiple tattos over body including on chest. Assessment/plan: 34 M with abdominal pain admitted to evaluation. Thought to be having MSK abdominal pain vs colitis. # Abdominal pain: possible colitis seen on CT however after discussion with Dr Houston, and in absence of leukocytosis, fever, or diarrhea its not very convincing. Lidocaine patch seems to help the most which supports MSK as origin of pain. Will discontinue ciprofloxacin and Flagyl. Pain control with morphine. Zofran PRN nausea. baclofen for possible underlying MSK pain causing the abdominal pain s/p fall at the same time as the onset of the pain. UA negative. BCx negative to date. # Tachycardia: likely related to anxiety and pain. Pain control. Resolved with IVFs and pain control. # Lactic acidosis: Resolved. 3.7 initially down to 3.0 likely from vomiting. IVFs. Repeat lactate normal. # Recent lumbar surgery: was getting PT OP and using walker, evaluation by PT/OT. # Left ankle sprain: PT/OT. # HTN: continue home meds. monitor and titrate. # DVT Prophylaxis: heparin A Yousef Hospitalist VS,[place], I+O VS, [place], I+O Laboratory Tests 01/22/20 07:58 Vital Signs Date Time Temp Pulse Resp B/P (MAP) Pulse Ox O2 Delivery O2 Flow Rate FiO2 12/17/20 18:00 97.1 68 16 154/90 (259) 97 Room Air I&O- Last 24 Hours up to 6 AM 01/22/20 05:59 Intake Total 4100 ml Output Total 725 ml Balance 3375 ml WASHINGTON YIN MD Jan 22, 2020 20:13
[2020-01-22] MEDS ORDERED: **NOTE PATIENT COMMENT** MISC XX SCH (21:00)
[2020-01-23] MEDS: ONDANSETRON 4MG/2ML VIAL IV SCH ×4 (00:23→12:23)
[2020-01-23] MEDS: MORPHINE 2 MG/ML 1ML VIAL (J2270) IV PRN ×3 (01:00→10:03)
[2020-01-23] MEDS ORDERED: diphenhydrAMINE 50MG CAP PO ONE (02:30)
[2020-01-23] MEDS: HEPARIN SOD (PORCINE) 5000UNITS/ML 1ML VIAL/SYRINGE SC SCH (04:57)
[2020-01-23 06:00] VITALS: BP_SYST 130; BP_SYST 159; BP_DIAS 105; BP_DIAS 89
[2020-01-23 06:45] LABS: HEMATOCRIT 40.2 % (42.0-52.0); MEAN CORPUSCULAR HEMOGLOBIN 30.4 pg (27.0-33.0); MEAN CORPUSCULAR HGB CONC 34.8 g/dl (32.0-36.5); MEAN CORPUSCULAR VOLUME 87.4 fl (80.0-96.0); PLATELET COUNT, AUTOMATED 283 10^3/uL (150-450); WHITE BLOOD COUNT 6.1 10^3/uL (4.0-10.0)
[2020-01-23 07:13] LABS: BLOOD UREA NITROGEN 8 MG/DL (7-18); CALCIUM LEVEL 8.3 MG/DL (8.5-10.1); CARBON DIOXIDE LEVEL 25 MEQ/L (21-32); CHLORIDE LEVEL 107 MEQ/L (98-107); CREATININE FOR GFR 1.02 MG/DL (0.70-1.30); GLOMERULAR FILTRATION RATE > 60.0 (>60); GLUCOSE, FASTING 87 MG/DL (70-100); POTASSIUM SERUM 3.8 MEQ/L (3.5-5.1); SODIUM LEVEL 140 MEQ/L (136-145)
[2020-01-23 08:26] VITALS: BP 159/105
[2020-01-23] MEDS: LIDOCAINE 5% (LIDODERM) PATCH TD SCH (08:26)
[2020-01-23] MEDS: lisinopriL 10 MG TAB PO SCH (08:26)
[2020-01-23] MEDS: DOCUSATE SODIUM 100MG CAPSULE PO SCH (08:26)
[2020-01-23] MEDS: BACLOFEN 5MG PER 1/2 TABLET PO SCH (08:26)
--- NOTE | 2020-01-23 11:32 | DS.PDOC ---
Discharge Summary General Date of Admission Jan 21, 2020 at 17:38 Date of Discharge 01/23/2020 Discharge Summary PROCEDURES PERFORMED DURING STAY: [None]. ADMITTING DIAGNOSES: Abdominal pain possible colitis versus MSK abdominal pain DISCHARGE DIAGNOSES: Likely musculoskeletal abdominal pain status post fall on abdomen Lactic acidosis Ankle sprain COMPLICATIONS/CHIEF COMPLAINT: Left Sided Pain. HISTORY OF PRESENT ILLNESS: From H&P: 34M who presents with abdominal pain to the ED. reports pain started 2 days ago and is constant and has been worsening to the point of being unbearable which prompted him to present to hospital. It's described as 10/10 initially, improved to 7/10 s/p morphine/dilaudid. Sharp, radiates to right groin, exacerbated by movement. Alleviated with rest. Not associated with diarrhea. Associated with some nausea and vomiting. Denies any fevers or chills. Of potential relevance patient reports history of both pancreatitis and diverticulitis in the past. He's also recently underwent lumbosacral spine fusion in September in [place] with follow up with his orthopedic surgeon scheduled for feb 02. Patient also reports a recent fall where he tripped on his right ankle and landed on his left abdomen on the same day that his abdominal pain started. In the ED CT abdomen who done which was suggestive of colitis, although patient doesn't have leukocytosis, or fever, and no diarrhea. Patient was evaluated by Dr Surgeon Dr Houston. Patient was given 1 dose ciprofloxacin and flagyl as well as morphine and Dilaudid. HOSPITAL COURSE: 34 M with abdominal pain admitted to evaluation. Thought to be having MSK abdominal pain vs colitis. After evaluation it is most likely patient is having muscular skeletal abdominal pain. The pain is relieved mostly with lidocaine p atch he has been afebrile with no elevated white blood cell count. Patient was evaluated by surgery Dr. Lubin who did not think patient has colitis. At the time of discharge patient was tolerating his diet well and able to ambulate in his room. He still has some mild discomfort but will try to go home and rest and continue to eat and she does over the next few days. Instructed patient to follow-up with his PCP within the next 5 days and he agrees. I checked the patient to return should his abdominal pain worsen or fail to improve or should he develop fever chills or other signs discussed. # Abdominal pain: Initially thought to be colitis seen on CT however after discussion with Dr Houston, and in absence of leukocytosis, fever, or diarrhea its not very convincing. Lidocaine patch seems to help the most which supports MSK as origin of pain. Will discontinue ciprofloxacin and Flagyl which she received for one day. Baclofen for possible underlying MSK pain causing the abdominal pain s/p fall at the same time as the onset of the pain. UA negative. BCx negative to date. Will send patient home on Tylenol for pain control as well as lidocaine patch and Zofran for nausea # Tachycardia: likely related to anxiety and pain. Resolved with IVFs and pain control. # Lactic acidosis: Resolved. 3.7 initially down to 3.0 likely from vomiting. IVFs. Repeat lactate normal. # Recent lumbar surgery: was getting PT OP. PT/OT. # Left ankle sprain: PT/OT. RICE. # HTN: continue home meds. monitor and titrate. Follow-up with PCP to titrate blood pressure medications. DISCHARGE MEDICATIONS: Please see below. ALLERGIES: Please see below. PHYSICAL EXAMINATION ON DISCHARGE: VITAL SIGNS: Please see below. Constitutional: Awake and alert, in no distress lying comfortably in bed tells me his abdominal feels much better and answering all questions appropriately. ENT: Sclera are clear. Mucosa is moist. No jaundice. Respiratory: Lungs CTA bilaterally. No respiratory distress. No use of a ccessory muscles. Cardiovascular: Regular heart rate. Gastrointestinal: Abdomen soft, obese, non distended, +BS. Minimal LLQ discomfort on deep palpation almost completely resolved compared to yesterday. Lidocaine patch in place. Musculoskeletal: No LE edema. RUE 5/5, LUE 5/5, BLE 5/5. ankle/foot swollen since his fall 2 days prior to admission when he sprained his ankle. Ankle swelling has come down. Neurologic: No focal neurological deficit. Mental Status: A&O x3, anxious, tearful at times. Skin: Warm, dry. Lower back incision healing well. Multiple tattos over body including on chest. LABORATORY DATA: Please see below. IMAGING: CT ABD/PEL W/IV CONTRAST ONLY 01/21/2020 IMPRESSION: Wall thickening of the ascending colon, transverse colon, descending colon and proximal sigmoid colon, compatible with colitis in the appropriate clinical setting. There is no ascites or pneumoperitoneum. There is no bowel distention or obstruction. There are no focal fluid collection to suggest abscess. There are no lytic, blastic or destructive skeletal changes, particularly in relation to the lumbar spine surgical fusion. There are no soft tissue fluid collections to suggest abscess or hematoma, particularly at the lumbar spine surgical fusion site. There is a new ovoid lucency with a calcified rim posteriorly in the right iliac wing, likely a bone graft donor site for the lumbar surgery PROGNOSIS: Good ACTIVITY: [As tolerated]. DIET: Continue clear liquid diets at home and advance as tolerated to a high- fiber regular diet DISPOSITION: Home DISCHARGE INSTRUCTIONS: Please follow up with your primary care physician within 1 week from discharge. If you do not have one, please follow up with us to schedule an appointment. Please keep all of your follow up appointments. Please call central to book your appointments with hospital specialists. Please take all your medications as prescribed. Please call/come to Clinic or go to the Emergency Department if - Temp >101, intractable Nausea/Vomiting, Diarrhea, Mouth sores, Headaches, Altered mental status, Seizures, sudden onset of swelling, bleeding, shortness of breath or chest pain. ITEMS TO FOLLOWUP ON ON OUTPATIENT: 1. Primary care doctor within 5 days of discharge DISCHARGE CONDITION: [Stable]. TIME SPENT ON DISCHARGE: Greater than 35 minutes. Vital Signs/I&Os Vital Signs Date Time Temp Pulse Resp B/P (MAP) Pulse Ox O2 Delivery O2 Flow Rate FiO2 01/23/20 10:13 16 01/23/20 08:26 159/105 01/23/20 06:00 98.2 81 98 Room Air I&O- Last 24 Hours up to 6 AM 01/23/20 06:00 Intake Total 3753 ml Output Total 200 ml Balance 3553 ml Laboratory Data Labs 24H Laboratory Tests 2 01/23/20 06:09: Nucleated Red Blood Cells % (auto) 0.0, Anion Gap 8, Glomerular Filtration Rate > 60.0, Calcium Level 8.3L CBC/BMP Laboratory Tests 01/23/20 06:09 Microbiology Microbiology 01/21/20 Blood Culture - Preliminary, Resulted No growth after 24 hours . All specim... 01/21/20 Blood Culture - Preliminary, Resulted No growth after 24 hours . All specim... Discharge Medications Scheduled Lisinopril (Lisinopril) 10 Mg Tablet, 10 MG PO DAILY, (Reported) Scheduled PRN Acetaminophen (Acetaminophen) 500 Mg Tablet, 1,000 MG PO Q6H PRN for PAIN, (Reported) Allergies Coded Allergies: gabapentin (Verified Allergy, Intermediate, hives, 01/21/20) ketorolac (Verified Allergy, Intermediate, HIVES, 01/21/20) WASHINGTON YIN MD Jan 23, 2020 11:32
[2020-01-23] MEDS ORDERED: ZOFR4TAB16 PO (11:55)
[2020-01-23] MEDS ORDERED: LIDO5TD TD (11:55)
[2020-01-23] MEDS ORDERED: ACET500T15 PO (11:55)
[2020-01-23] MEDS ORDERED: DOK1CAP7 PO (11:55)
[2020-01-23] MEDS ORDERED: BACL10TA2 PO (11:55)
== END 2020-01-23 12:55 | disposition home or self-care (01) | DRG 251 ==
LOC: M ED 13:36 → EDBD 13:36 → M ED INP 17:38 → ENRESERV 19:44 → M MS5PR 20:45
PROVIDERS: ADMIT Family Medicine; ATTEND Family Medicine
DX: R10.9 Unspecified abdominal pain (principal); E87.2 Acidosis; M79.18 Myalgia, other site; Z88.8 Allergy status to other drugs, medicaments and biological substances; Z79.899 Other long term (current) drug therapy; I10 Essential (primary) hypertension; K21.9 Gastro-esophageal reflux disease without esophagitis; F41.9 Anxiety disorder, unspecified; F32.9 Major depressive disorder, single episode, unspecified; Q05.9 Spina bifida, unspecified; I25.2 Old myocardial infarction; S93.401A Sprain of unspecified ligament of right ankle, initial encounter; W18.30XA Fall on same level, unspecified, initial encounter; Y92.009 Unspecified place in unspecified non-institutional (private) residence as the place of occurrence of the external cause

== ENCOUNTER → 2020-02-17 | Outpatient (CLI) | payer OTHER ==
[~2020-02-17] MED LIST changes: +ACET500T15 PO; +BACL10TA2 PO; +DOK1CAP7 PO; +LIDO5TD TD; +ZOFR4TAB16 PO
--- NOTE | 2020-02-19 00:33 | ECWPNPC ---
PATIENT NAME: TARUN WRIGHT : 1985 GENDER: MALE VISIT DATE: 02/17/2020 DISCHARGE DATE: 02/17/20 1411 VISIT LOCKED DATE TIME: PHYSICIAN: RICHAR PETER RESOURCE: RICHAR PETER REASON FOR APPOINTMENT 1. BACK PAIN HISTORY OF PRESENT ILLNESS DEPRESSION SCREENING: PHQ-2 (2015 EDITION) LITTLE INTEREST OR PLEASURE IN DOING THINGS?NOT AT ALL FEELING DOWN, DEPRESSED, OR HOPELESS?NOT AT ALL TOTAL SCORE0 GENERAL: 34-YEAR-OLD GENTLEMAN BEING SEEN TO MANAGE PERSISTENT LOW BACK PAIN. HISTORY OF BACK PROBLEMS SINCE HE WAS YOUNG. 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 PATIENT HAD LOW BACK SURGERY THIS PAST SEPTEMBER 2019. HAD TO BE SEEN SEVERAL TIMES AT THE EMERGENCY ROOM FOR SIGNIFICANT PAIN POST SURGERY. REPORTING NEW PAIN THAT TRAVELS DOWN LEFT LEG. DESCRIBES PAIN THROBBING AND CONSTANT. APPEARS VERY UNCOMFORTABLE TODAY. PATIENT FELL ON ICE IN JANUARY. HAS NOT SEEN SURGEON SINCE FALLING. HAS APPOINTMENT TO SEE DR. ADDISON ON 02/27/2020. REPORTS SLEEP DISRUPTION DUE TO SEVERE PAIN. HE DOES ADMIT TO USING MARIJUANA ON A REGULAR BASIS. DENIES BOWEL OR BLADDER INCONTINENCE. DENIES SIGNS AND SYMPTOMS OF INFECTION. DENIES SADDLE PARESTHESIAS. IN REVIEWING HIS SOCIAL HISTORY HE HAS SOME CONCERNS WITH USING ANY NARCOTIC PAIN MEDICATION. -. FALL RISK SCREENING: SCREENING :TWO OR MORE FALLS WITH INJURY IN THE PAST YEAR PAIN SCREENING: PATIENT HAS A COMPLAINT OF ACUTE OR CHRONIC PAIN :YES LOCATION OF PAIN:LOW BACK, LEFT HIP INTENSITY OF PAIN (SCALE OF 1 TO 10):8 WHAT DOES YOUR PAIN FEEL LIKE:ACHING, BURNING, THROBBING BURNING DOWN THE LEFT LEG DURATION:CONTINOUS, CONSTANT, ALL DAY PAIN IS INCREASED BY:PROLONGED STANDING, OTHERS SITTING DOWN PAIN IS DECREASED BY:USE OF PAIN MEDICATIONS TREATMENT/MEDICATIONS USED TO MANAGE PAIN:OPIOIDS LEVEL OF RELIEF FROM PAIN TREATMENTS IN THE PAST:50% PAIN HAS INTERFERED WITH THE FOLLOWING:BATHING/DRESSING, WALKING ABILITY, SLEEP NURSING NOTE: -. PAIN CENTER INTAKE QUESTIONS: DO YOU HAVE A HISTORY OF MRSA? :NO DO YOU TAKE A BLOOD THINNERS? :NO DO YOU HAVE ANY BLEEDING DISORDERS? :NO ANY NEW NUMBNESS OR WEAKNESS IN YOUR LEGS OR ARMS? :NO ANY PACEMAKER,DEFIBRILLATOR, OR DORSAL COLUMN STIMULATOR? :NO DO YOU HAVE ANY RASHES OR OPEN SORES? :NO ARE YOU ALLERGIC TO IV DYE? :NO ARE YOU DIABETIC? :NO ANY NEW PROBLEMS WITH YOUR MEDICATIONS? :NO HAVE YOU RECEIVED A VACCINE IN THE PAST 30 DAYS? :YES IF SO WHAT VACCINE AND WHEN? FLU SHOT DO YOU PLAN TO RECEIVE A VACCINE IN THE NEXT 21 DAYS? :NO DO YOU NEED ANY PRESCRIPTION? :NO DO YOU TAKE ANY IMMUNOSUPPRESSIVE MEDICATIONS? :NO IS THERE A CHANCE YOU COULD BE ? :NO ARE YOU BREAST FEEDING? :NO CURRENT MEDICATIONS TAKING LISINOPRIL 20 MG TABLET 1 TABLET ORALLY ONCE A DAY TAKING PEPCID 40 MG TABLET 1 TABLET ORALLY ONCE A DAY TAKING ACETAMINOPHEN 500 MG TABLET 2 TABLETS NEEDED ORALLY EVERY 6 HRS TAKING LIDOCAINE 4 % CREAM 1 APPLICATION TO AFFECTED AREA NEEDED EXTERNALLY THREE TIMES A DAY ALONDRA TAKING ROBAXIN 500 MG TABLET 2 TABLETS ORALLY EVERY 6 HRS MAY CAUSE DROWSINESS TAKING ALBUTEROL SULFATE HFA 108 (90 BASE) MCG/ACT AEROSOL SOLUTION 1 PUFF NEEDED INHALATION EVERY 4 HRS TAKING STIMULANT LAXATIVE 8.6-50 MG TABLET 1 TABLET IN THE EVENING NEEDED ORALLY ONCE A DAY NOT-TAKING OMEPRAZOLE 40 MG CAPSULE DELAYED RELEASE 1 CAPSULE ORALLY ONCE A DAY NOT-TAKING BACTRIM DS 800-160 MG TABLET 1 TABLET ORALLY BID MEDICATION LIST REVIEWED AND RECONCILED WITH THE PATIENT PAST MEDICAL HISTORY HTN ASTHMA CONSTIPATION BACK AND LEG PAIN ALLERGIES GABAPENTIN: HIVES - ALLERGY TORADOL: HIVES - ALLERGY SURGICAL HISTORY BACK SURGICAL 10/01/19 RIGHT INDEX FINGER REPAIR 2005 SKIN GRAFT S/P RIGHT HIP BURN CHOLECYSTECTOMY 11/2019 FAMILY HISTORY FATHER: MOTHER: 1 BROTHER(S) , 2 SISTER(S) . 1 SON(S) , 2 DAUGHTER(S) - HEALTHY. BROTHER . SOCIAL HISTORY GENERAL: TOBACCO USE ARE YOU A:CURRENT SMOKER ARE YOU INTERESTED IN QUITTING?NOT READY TO QUIT COUNSELED THE PATIENT ON SMOKING EFFECTS, EDUCATION [id number]/12/2021 HOW MANY CIGARETTES A DAY DO YOU SMOKE?12-25 LATEX QUESTIONNAIRE LATEX ALLERGY : HAVE YOU EVER DEVELOPED ANY TYPE OF REACTION AFTER HANDLING LATEX PRODUCTS SUCH RUBBER GLOVES, CONDOMS, DIAPHRAGMS, BALLOONS, SOCKS, OR UNDERWEAR?NO LATEX ALLERGY : HAVE YOU EVER DEVELOPED ANY TYPE OF REACTION DURING OR AFTER DENTAL APPOINTMENT, VAGINAL/RECTAL EXAMINATION, SURGICAL PROCEDURE, OR ANY OTHER EXPOSURE?NO LATEX RISK : HAVE YOU EVER HAD ANY DIFFICULTY BREATHING OR HIVES AFTER EATING OR HANDLING ANY FRUITS, OR VEGETABLES; SUCH KIWI, BANANAS, STONE FRUITS, OR CHESTNUTSNO LATEX RISK : DO YOU HAVE A PREVIOUS PERSONAL HISTORY OF MORE THAN NINE SURGERIES, SPINA BIFIDA, OR REPEATED CATHERIZATIONS? NO LATEX RISK : ARE YOU FREQUENTLY EXPOSED TO LATEX PRODUCTS IN YOUR OCCUPATION?NO DATE ASKED : 02/17/2020 ALCOHOL SCREENING DID YOU HAVE A DRINK CONTAINING ALCOHOL IN THE PAST YEAR?NO POINTS0 INTERPRETATIONNEGATIVE RECREATIONAL DRUG USE DRUG USE?YES MARIJUANA HIV / HEP-C SCREENING HIV TEST OFFERED TO PATIENT:YES DATE OFFERED:08/16/2017 TEST ACCEPTED:NO HEP-C TEST OFFERED TO PATIENT:NO REASON:PATIENT DECLINED BROCHURE PROVIDED TO PATIENTNO LANGUAGE LANGUAGES SPOKEN:ITALIAN LEARNING BARRIERS / SPECIAL NEEDS BARRIERS TO LEARNING?NO HEARING IMPAIRED?NO VISION IMPAIRED?NO COGNITIVELY IMPAIRED?NO READINESS TO LEARN?YES LEARNING PREFERENCES?NO LEARNING CAPABILITIES PRESENT?YES EMOTIONAL BARRIERS?NO SPECIAL DEVICES?NO PUNCH PRESS OPERATOR NEEDED?NO PAIN CLINIC PFS, CLERGY, PUBLIC HEALTH REFERRALS HAS THE PATIENT BEEN EDUCATED REGARDING HIS/HER PLAN OF CARE?YES HAS THE PATIENT BEEN EDUCATED REGARDING PAIN, THE RISK FOR PAIN, THE IMPORTANCE OF EFFECTIVE PAIN MANAGEMENT, AND THE PAIN ASSESSMENT PROCESS?YES ADVANCE DIRECTIVE ADVANCE DIRECTIVE DISCUSSED WITH PATIENT:YES RUFINA CLARK HOSPITALIZATION/MAJOR DIAGNOSTIC PROCEDURE SURGERIES BACK PAIN REVIEW OF SYSTEMS CONSTITUTIONAL: ANY RECENT FEVER NO . CHILLS NO . WEIGHT CHANGE OF UNKNOWN REASONS NO . GASTROENTEROLOGY: NEW UNEXPLAINABLE CHANGES IN BOWEL CONTROL NO . CONSTIPATION NO . GENITOURINARY: ANY NEW CHANGE IN BLADDER CONTROL? NO . NEUROLOGY: NEW ONSET DIZZINESS OR NEUROLOGICAL CHANGES NOT MENTIONED NO . NEW NUMBNESS OR PAIN PATTERNS NOT MENTIONED AND PERTINENT TO TODAY'S VISIT NO . CARDIOLOGY: NEW CHEST PRESSURE NO . NEW CHEST PAIN NO . RESPIRATORY: UNEXPLAINABLE COUGH NO . NEW SHORTNESS OF BREATH NO . VITAL SIGNS WT 225 LBS, HT 71.5 IN, BMI 30.94 INDEX, BP 138/74 MM HG, HR 90 /MIN, RR 18 /MIN, TEMP 96 F, OXYGEN SAT % 100, SAFE IN ENV? (Y/N) Y, REVIEWED BY: ZEKE FELDMAN MA. EXAMINATION GENERAL EXAMINATION: GENERAL AWAKE,ALERT ,PLEAASANT. APPEARS UNCOMFORTABLE . PSYCH AFFECT NORMAL . FACE:UNREMARKABLE. NECK:NO LYMPHADENOPATHY, SUPPLE. LUNGS: LUNG SÁNCHEZ ARE CLEAR TO AUSCULTATION BILATERALLY. GOOD MOVEMENT OF AIR . HEART: S1, S2 IN A REGULAR RATE AND RHYTHM. NO SIGNIFICANT MURMURS, RUBS OR GALLOPS NOTED . MUSCULOSKELETAL: MUSCLE STRENGTH TESTING 4/5 BILATERAL LOWER EXTREMITIES. LUMBAR: TRIGGER POINTS:, ELICITED WITH PALPATION OVER LUMBAR PARAVERTEBRAL MUSCLES. PAIN IS AGGRAVATED IN THIS REGION WITH RANGE OF JOINT MOTION OF THE SPINE.. ASSESSMENTS MYALGIA, OTHER SITE - M79.18 (PRIMARY) TREATMENT MYALGIA, OTHER SITE NOTES: STOP ROBAXIN.START CYCLOBENZAPRINE 10MG TAB 1 TAB 3X DAILY FOR MUSCLE SPASM PAIN. TRIGGER POINT INJECTIONS BILAT. LOW BACK. PATIENT REVIWED AND RECEIVE PRE PROCEDURES TT AV. PROCEDURE CODES FA211 ESTABILISHED PATIENT [facility] CHARGE DISPOSITION & COMMUNICATION FOLLOW UP POST PROCEDURE (REASON: TRIGGER POINT INJECTIONS BILAT. LOW BACK.) ELECTRONICALLY SIGNED BY JESSICA WICK ON 02/18/2020 AT 03:54 PM EST DISCLAIMER : THIS IS A VISIT SUMMARY EXTRACTED FROM THE [employer] CHART. IT IS NOT A COPY OF THE [employer] PROGRESS NOTE. PHILIP
== END ==
LOC: M PAIN 13:00
PROVIDERS: ATTEND Nurse Practitioner Family
DX: M79.18 Myalgia, other site (principal); J45.909 Unspecified asthma, uncomplicated; F17.210 Nicotine dependence, cigarettes, uncomplicated; Z88.6 Allergy status to analgesic agent; Z88.8 Allergy status to other drugs, medicaments and biological substances; Z79.899 Other long term (current) drug therapy

== ENCOUNTER 2020-04-20 00:25 | Emergency (ER) | payer OTHER ==
[~2020-04-20] VITALS: Ht 182.9 cm; Wt 106.3 kg
[~2020-04-20 00:25] MED LIST changes: +LISI10TA22 PO; -LISI10TA4 PO
[2020-04-20] MEDS ORDERED: diphenhydrAMINE 50MG/ML VIAL (J1200) As Ordered ONE (00:32)
[2020-04-20] MEDS ORDERED: HALOPERIDOL 5MG/ML VIAL (J1630 PER 1) As Ordered ONE (00:32)
[2020-04-20] MEDS ORDERED: LORazepam 2 MG/ML VIAL As Ordered ONE (00:33)
[2020-04-20] MEDS ORDERED: diphenhydrAMINE 50MG/ML VIAL (J1200) IM ONE (00:35)
[2020-04-20] MEDS ORDERED: LORazepam 2 MG/ML VIAL IM ONE (00:35)
[2020-04-20] MEDS ORDERED: HALOPERIDOL 5MG/ML VIAL (J1630 PER 1) IM ONE (00:35)
[2020-04-20 01:03] LABS: HEMATOCRIT 44.6 % (42.0-52.0); HEMOGLOBIN 15.6 g/dl (13.5-17.5); MEAN CORPUSCULAR HEMOGLOBIN 30.6 pg (27.0-33.0); MEAN CORPUSCULAR VOLUME 87.6 fl (80.0-96.0); PLATELET COUNT, AUTOMATED 449 10^3/uL (150-450); RED BLOOD COUNT 5.09 10^6/uL (4.30-6.10); WHITE BLOOD COUNT 22.3 10^3/uL (4.0-10.0)
[2020-04-20 01:52] LABS: ACETAMINOPHEN LEVEL < 2.0 UG/ML (10.0-30.0); ALBUMIN 3.8 GM/DL (3.2-5.2); ALT/SGPT 30 U/L (12-78); BILIRUBIN,DIRECT 0.2 MG/DL (0.0-0.2); BILIRUBIN,TOTAL 0.6 MG/DL (0.2-1.0); BLOOD UREA NITROGEN 14 MG/DL (7-18); CARBON DIOXIDE LEVEL 23 MEQ/L (21-32); CHLORIDE LEVEL 108 MEQ/L (98-107); ETHYL ALCOHOL (ETHANOL) < 0.003 % (0.000-0.010); GLOMERULAR FILTRATION RATE > 60.0 (>60); GLUCOSE, FASTING 141 MG/DL (70-100); POTASSIUM SERUM 3.6 MEQ/L (3.5-5.1); SALICYLATE LEVEL 2.6 MG/DL (5.0-30.0); SODIUM LEVEL 140 MEQ/L (136-145)
[2020-04-20] MEDS: NS 1,000 ML IV SCH ×8 (05:31→05:55)
[2020-04-20 08:01] LABS: AMPHETAMINES LEVEL URINE NEGATIVE (NEGATIVE); BARBITURATES URINE NEGATIVE (NEGATIVE); BENZODIAZEPINES URINE POSITIVE (NEGATIVE); CANNABINOIDS URINE POSITIVE (NEGATIVE); COCAINE METABOLITE URINE NEGATIVE (NEGATIVE); METHADONE URINE NEGATIVE (NEGATIVE); OPIATES URINE NEGATIVE (NEGATIVE); PHENCYCLIDINE URINE NEGATIVE (NEGATIVE)
[2020-04-20 08:42] LABS: BASO % 0.1 % (0.0-1.0); EOS # 0.2 10^3/uL (0.0-0.5); HEMOGLOBIN 14.3 g/dl (13.5-17.5); LYMPH % 18.3 % (24.0-44.0); MEAN CORPUSCULAR HEMOGLOBIN 30.8 pg (27.0-33.0); MEAN CORPUSCULAR VOLUME 90.3 fl (80.0-96.0); MONO # 1.4 10^3/uL (0.0-0.8); MONO % 8.6 % (2.0-8.0); NEUTROPHILS # 11.8 10^3/uL (1.5-8.5); NEUTROPHILS % 70.8 % (36.0-66.0); PLATELET COUNT, AUTOMATED 359 10^3/uL (150-450); RED BLOOD COUNT 4.65 10^6/uL (4.30-6.10); WHITE BLOOD COUNT 16.7 10^3/uL (4.0-10.0)
[2020-04-20 10:50] VITALS: BP 145/85
--- NOTE | 2020-04-20 19:24 | ECGEPIP ---
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
--- NOTE | 2020-04-20 19:29 | ECGEPIP ---
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
== END 2020-04-20 11:23 | disposition home or self-care (01) ==
LOC: M ED 00:25
DX: F19.129 Other psychoactive substance abuse with intoxication, unspecified (principal); R00.0 Tachycardia, unspecified; Z79.899 Other long term (current) drug therapy; Z88.8 Allergy status to other drugs, medicaments and biological substances
CPT/HCPCS: 80048; 80076; 80143; 80307; 81001; 82077; 84443; 85025; 85027; 87040; 93005; 96361; 96372; 99285; J1200; J1630; J2060

== ENCOUNTER 2020-04-23 21:03 | Emergency (ER) | payer OTHER ==
[~2020-04-23] VITALS: Ht 182.9 cm; Wt 106.3 kg
[2020-04-23 21:32] LABS: HEMOGLOBIN 16.1 g/dl (13.5-17.5); MEAN CORPUSCULAR HEMOGLOBIN 30.5 pg (27.0-33.0); MEAN CORPUSCULAR HGB CONC 33.5 g/dl (32.0-36.5); MEAN CORPUSCULAR VOLUME 90.9 fl (80.0-96.0); PLATELET COUNT, AUTOMATED 443 10^3/uL (150-450); RED BLOOD COUNT 5.28 10^6/uL (4.30-6.10); WHITE BLOOD COUNT 20.6 10^3/uL (4.0-10.0)
[2020-04-23 22:11] LABS: ACETAMINOPHEN LEVEL < 2.0 UG/ML (10.0-30.0); ALBUMIN 4.3 GM/DL (3.2-5.2); ALT/SGPT 101 U/L (12-78); BILIRUBIN,DIRECT 0.1 MG/DL (0.0-0.2); BILIRUBIN,TOTAL 0.4 MG/DL (0.2-1.0); BLOOD UREA NITROGEN 11 MG/DL (7-18); CALCIUM LEVEL 9.1 MG/DL (8.5-10.1); CARBON DIOXIDE LEVEL 24 MEQ/L (21-32); CHLORIDE LEVEL 108 MEQ/L (98-107); CREATININE FOR GFR 1.35 MG/DL (0.70-1.30); ETHYL ALCOHOL (ETHANOL) < 0.003 % (0.000-0.010); GLOMERULAR FILTRATION RATE > 60.0 (>60); GLUCOSE, FASTING 148 MG/DL (70-100); POTASSIUM SERUM 4.2 MEQ/L (3.5-5.1); SALICYLATE LEVEL 3.2 MG/DL (5.0-30.0); SODIUM LEVEL 141 MEQ/L (136-145)
[2020-04-23 23:05] LABS: AMPHETAMINES LEVEL URINE NEGATIVE (NEGATIVE); BARBITURATES URINE NEGATIVE (NEGATIVE); BENZODIAZEPINES URINE POSITIVE (NEGATIVE); CANNABINOIDS URINE POSITIVE (NEGATIVE); COCAINE METABOLITE URINE NEGATIVE (NEGATIVE); METHADONE URINE NEGATIVE (NEGATIVE); OPIATES URINE NEGATIVE (NEGATIVE); PHENCYCLIDINE URINE NEGATIVE (NEGATIVE)
[2020-04-23] MEDS ORDERED: LORazepam 1 MG TAB PO ONE (23:45)
[2020-04-24] MEDS ORDERED: diphenhydrAMINE 50MG/ML VIAL (J1200) IM ONE (01:30)
[2020-04-24] MEDS ORDERED: HALOPERIDOL 5MG/ML VIAL (J1630 PER 1) IM ONE (01:30)
[2020-04-24] MEDS ORDERED: LORazepam 2 MG/ML VIAL IM ONE (01:30)
[2020-04-24] MEDS ORDERED: NORT10CA2 PO (06:21)
[2020-04-24] MEDS ORDERED: D31000TA2 PO (06:21)
[2020-04-24] MEDS ORDERED: BACL10TA2 PO (06:21)
[2020-04-24] MEDS ORDERED: VENL37.598 PO (06:21)
[2020-04-24] MEDS ORDERED: PANT40TA29 PO (06:21)
[2020-04-24] MEDS ORDERED: ALPRAZolam 0.5 MG TAB PO ONE (12:35)
[2020-04-24] MEDS ORDERED: HALOPERIDOL 5MG/ML VIAL (J1630 PER 1) IM STA ×2 (15:55→20:52)
--- NOTE | 2020-04-24 17:10 | MHCRPDOC ---
[facility] Consultation Consultation DATE OF CONSULTATION: 04/24/20 CONSULTATION REQUESTED BY: ER for possible admission Chief Complaint * Pt was brought in after pt lane called police for pt having hallucinations, however pt is denying AH/VH. Pt is visually distraught. Pt continuously talking. 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 Pt sang the [employer] susan mater multiple times. Pt is verbally agitated then quickly changes to saying "I love you, I forgive you, etc." PSA met with pt at bedside, pt was very unorganized and often unable to coherently answer questions. Pt told PSA "I wanna grab both of ya'll you and Hayley (pt lane) and you both" Pt also told TW he had a tattoo of TW on his chest. TW asked pt "Who do you think I am" pt stated "Your my Hayley" TW reminded pt that she was not and of my name. Pt stated "Don't lie to me I know you're fucking Thuan." Pt then pleaded with TW to find out if the baby is his. Pt stated "I only got physically a little with her tonight" Pt denied SI and AH/VH. Due to pt obvious delusional state pt is hard to get a full evaluation on. Pt admitted he was homicidal towards his lane tonight but had no plans. Pt admitted to smoking 3-4 packs of cigarettes daily, smokes weed daily and takes Xanax daily. Pt also admitted to take Suboxone that was not prescribed to him. Pt reported taking a "Turbo shot" of meth but could not answer when he took it. At end of MHE pt yelled "anxiety, anxiety, anxiety...I need meth, now" PSA spoke with pt mata who stated that pt has been very on edge the last week. She stated that 2- 2.5 weeks ago pt was diagnosed with advanced MS and it was found that pt had had a stroke in his sleep at some point, during pt stay at [facility] the doctor started him on opioids and phetanyl, which pt is in recovery from. Pt girlfriend stated that since returning home it has been a vicious cycle of these behaviors. she stated that one minute she feels like she is dealing with [place] and the next she feels like she is dealing with a 12 year old. Pt mata stated that a few days ago pt was calling her mom and when she said "I'm Hayley, you know who I am" he said "I don't know a Hayley." Pt mata also stated that pt yelled "anxiety, anxiety, anxiety" then demanded she get him an 8 ball of Meth. REASON FOR CONSULTATION: Evaluate for admission. RELEVANT HISTORY: As above. PAST PSYCHIATRIC HISTORY: Previous admitted for less irritable stroke and multiple sclerosis PAST MEDICAL HISTORY: As above FAMILY HISTORY: Mother:. Unknown Father: unknown Siblings: Unknown Children: Unknown PERSONAL AND SOCIAL HISTORY: The patient was born and raised in [place]. Resides in: [place] Marital Status: X Legally Children: Employment: [employer] ABUSE HISTORY: Apparently significant drug history as mentioned above. Patient was apparently given opiates at previous hospital and patient may in fact be using other medications, Suboxone, marijuana, amphetamines Smoking:, Smokes ETOH: Probable alcohol intake Illicit Drugs:, Opiates, marijuana, amphetamines LEGAL HISTORY: . MENTAL STATUS EXAMINATION: Patient is a 34-year old male, who is, recently wandering and incomprehensible. In the ER. Speech is, garbled. Language skills are, poor. Thought processes including: Hard to understand. His thought processes. Thought content: Hard to understand. His thought content. Abstract reasoning, and computation:, Unable to abstract. Description of associations:, Loose associations. Description of abnormal or psychotic thoughts:, Loose associations, tangential thinking. Judgment:, Poor. Insight:, Poor. Orientation to unclear if patient is oriented. Recent and remote memory: Unclear if patient has recent or remote memory. Girlfriend reports he is forgetful. Attention span and concentration: Poor. Attention span. Language: Disturbed. Language and distorted. Fund of knowledge: Cannot be determined. Mood: Labile. Affect:, Confused. DIAGNOSIS: 1., Acute encephalopathy. PLAN: 1. Plan to treat in the emergency room to help resolve encephalopathy before any possibility of admission. . Vital Signs Vital Signs Date Time Temp Pulse Resp B/P (MAP) Pulse Ox O2 Delivery O2 Flow Rate FiO2 04/24/20 09:45 97.9 114 19 136/90 96 Room Air Laboratory Data 24H Labs Laboratory Tests 2 04/23/20 21:23: Nucleated Red Blood Cells % (auto) 0.0, Anion Gap 9, Glomerular Filtration Rate > 60.0, Calcium Level 9.1, Total Bilirubin 0.4, Direct Bilirubin 0.1, Aspartate Amino Transf (AST/SGOT) 38H, Alanine Aminotransferase (ALT/SGPT) 101H, Alkaline Phosphatase 94, Total Protein 8.0, Albumin 4.3, Albumin/Globulin Ratio 1.2, Thyroid Stimulating Hormone (TSH) 1.720, Salicylates Level 3.2L, Urine Opiates Screen NEGATIVE, Urine Methadone Screen NEGATIVE, Acetaminophen Level < 2.0L, Urine Barbiturates Screen NEGATIVE, Urine Phencyclidine Screen NEGATIVE, Urine Amphetamines Screen NEGATIVE, Urine Benzodiazepines Screen POSITIVEH, Urine Cocaine Metabolite Screen NEGATIVE, Urine Cannabinoids Screen POSITIVEH, Ethyl Alcohol Level < 0.003 Home Medications Current Medications Current Medications Medications (Trade) Dose Ordered Sig/Jovon Route PRN Reason Start Time Stop Time Status Last Admin Dose Admin Haloperidol (Haldol) 10 mg STAT STAT IM 04/24/20 15:55 04/24/20 15:56 DC 04/24/20 16:12 Home Med (Med Rec Complete!) ASDIRECTED XX 04/24/20 06:25 04/24/20 06:32 DC Scheduled Baclofen (Baclofen) 10 Mg Tablet, 10 MG PO TID, (Reported) Cholecalciferol (Vitamin D3) (Vitamin D3) 1,000 Unit Tablet, 1,000 MG PO DAILY, (Reported) Nortriptyline HCl (Nortriptyline HCl) 10 Mg Capsule, 10 MG PO DAILY, (Reported) Pantoprazole Sodium (Pantoprazole Sodium) 40 Mg Tablet.dr, 40 MG PO DAILY, (Reported) Venlafaxine HCl (Venlafaxine HCl ER) 37.5 Mg Cap.er.24h, 37.5 MG PO DAILY, (Reported) Allergies Coded Allergies: gabapentin (Verified Allergy, Intermediate, hives, 01/21/20) ketorolac (Verified Allergy, Intermediate, HIVES, 01/21/20) SUSAN MOSS MD Apr 24, 2020 17:10
[2020-04-24 19:32] LABS: RSV AMPLIFICATION NEGATIVE (NEGATIVE)
[2020-04-24] MEDS ORDERED: NICOTINE 14 MG/24 HR TRANSDERMAL TD ONE (20:15)
[2020-04-25] MEDS ORDERED: ALPRAZolam 0.5 MG TAB PO ONE (08:05)
[2020-04-25 08:13] LABS: BASO % 0.3 % (0.0-1.0); EOS # 0.1 10^3/uL (0.0-0.5); EOS % 0.6 % (0.0-3.0); HEMATOCRIT 42.6 % (42.0-52.0); HEMOGLOBIN 14.4 g/dl (13.5-17.5); LYMPH # 2.4 10^3/uL (1.5-5.0); MEAN CORPUSCULAR HEMOGLOBIN 30.6 pg (27.0-33.0); MEAN CORPUSCULAR HGB CONC 33.8 g/dl (32.0-36.5); MEAN CORPUSCULAR VOLUME 90.4 fl (80.0-96.0); MONO # 1.1 10^3/uL (0.0-0.8); MONO % 9.2 % (2.0-8.0); NEUTROPHILS # 8.2 10^3/uL (1.5-8.5); NEUTROPHILS % 69.5 % (36.0-66.0); PLATELET COUNT, AUTOMATED 338 10^3/uL (150-450); RED BLOOD COUNT 4.71 10^6/uL (4.30-6.10); WHITE BLOOD COUNT 11.7 10^3/uL (4.0-10.0)
--- NOTE | 2020-04-25 08:37 | MHIPNPDOC ---
[facility] Progress Note Progress Note DATE OF SERVICE: 04/25/20 HISTORY: Patient kept in ER. I assessed patient as having acute encephalopathy and therefore did not admit to floor. Throughout the evening and night I ordered Haldol 5mg im twice. I was unable to determine how this pt. could profit from inpt stay. This morning he appeared clearer but changed answers to questions from moment to moment. Due to hx of stroke as well as possible drug use and the fact that his consciousness was clearing somewhat it was thought that vist by his significant other could help us determine his baseline. GF prior to that had said she would be willing to take him home. I will await ER report on that visit Chief Complaint * Pt was brought in after pt lane called police for pt having hallucinations, however pt is denying AH/VH. Pt is visually distraught. Pt continuously talking. 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 Pt sang the [employer] multiple times. Pt is verbally agitated then quickly changes to saying "I love you, I forgive you, etc." PSA met with pt at bedside, pt was very unorganized and often unable to coherently answer questions. Pt told PSA "I wanna grab both of ya'll you and Hayley (pt lane) and you both" Pt also told TW he had a tattoo of TW on his chest. TW asked pt "Who do you think I am" pt stated "Your my Hayley" TW reminded pt that she was not and of my name. Pt stated "Don't lie to me I know you're fucking Thuan." Pt then pleaded with TW to find out if the baby is his. Pt stated "I only got physically a little with her tonight" Pt denied SI and AH/VH. Due to pt obvious delusional state pt is hard to get a full evaluation on. Pt admitted he was homicidal towards his fianc tonight but had no plans. Pt admitted to smoking 3-4 packs of cigarettes daily, smokes weed daily and takes Xanax daily. Pt also admitted to take Suboxone that was not prescribed to him. Pt reported taking a "Turbo shot" of meth but could not answer when he took it. At end of MHE pt yelled "anxiety, anxiety, anxiety...I need meth, now" PSA spoke with pt mata who stated that pt has been very on edge the last week. She stated that 2- 2.5 weeks ago pt was diagnosed with advanced MS and it was found that pt had had a stroke in his sleep at some point, during pt stay at [facility] the doctor started him on opioids and phetanyl, which pt is in recovery from. Pt girlfriend stated that since returning home it has been a vicious cycle of these behaviors. she stated that one minute she feels like she is dealing with [place] and the next she feels like she is dealing with a 12 year old. Pt mata stated that a few days ago pt was calling her mom and when she said "I'm Hayley, you know who I am" he said "I don't know a Hayley." Pt mata also stated that pt yelled "anxiety, anxiety, anxiety" then demanded she get him an 8 ball of Meth. VITAL SIGNS: See below. NEW TEST RESULTS: . CURRENT MEDICATIONS: See below. MENTAL STATUS EXAMINATION: Patient is a 34-year old male, who is presently waiting in the ER. Speech: Is no gross disturbances. Speech. Language skills are repetitive. Thought processes including: Ambivalence, poor memory. Thought content:, As above. Abstract reasoning, and computation:. Poor abstraction. Description of associations:. No loose associations. Description of abnormal or psychotic thoughts: Thoughts are abnormal, but not psychotic at this time. Answers are changed rapidly. Judgment: Poor. Insight:, Poor. Orientation: Not oriented. Recent and remote memory: No remote or recent memory. Attention span and concentration:. Poor. Language: As above. Fund of knowledge: Cannot be determined. Mood:. Euthymic. Affect:, Congruent. DIAGNOSES: 1. Encephalopathy 2. Drug Use 3. History of Stroke ASSESSMENT:Encephalopathy, Cause yet to be determined, History of stroke, Hx of opiate use MANAGEMENT PLAN:Await determination of baseline, possibly discharged home TIME SPENT: 30 minutes. Vital Signs Vital Signs Date Time Temp Pulse Resp B/P (MAP) Pulse Ox O2 Delivery O2 Flow Rate FiO2 04/25/20 06:26 97.5 84 18 131/89 (103) 98 Room Air Laboratory Data 24H Labs Laboratory Tests 2 04/24/20 18:39: Coronavirus (COVID-19)(PCR) NEGATIVE, Influenza Type A (RT-PCR) NEGATIVE, Influenza Type B (RT-PCR) NEGATIVE, Respiratory Syncytial Virus (PCR) NEGATIVE 04/25/20 02:17: Bedside Glucose (Misc Panel) 93 04/25/20 07:58: Immature Granulocyte % (Auto) 0.4, Neutrophils (%) (Auto) 69.5H, Lymphocytes (%) (Auto) 20.0L, Monocytes (%) (Auto) 9.2H, Eosinophils (%) (Auto) 0.6, Basophils (%) (Auto) 0.3, Neutrophils # (Auto) 8.2, Lymphocytes # (Auto) 2.4, Monocytes # (Auto) 1.1H, Eosinophils # (Auto) 0.1, Basophils # (Auto) 0.0, Nucleated Red Blood Cells % (auto) 0.0 CBC/BMP Laboratory Tests 04/25/20 07:58 Current Medications Current Medications Medications (Trade) Dose Ordered Sig/Jovon Route PRN Reason Start Time Stop Time Status Last Admin Dose Admin Haloperidol (Haldol) 5 mg STAT STAT IM 04/24/20 20:52 04/24/20 20:54 DC 04/24/20 21:01 Haloperidol (Haldol) 10 mg STAT STAT IM 04/24/20 15:55 04/24/20 15:56 DC 04/24/20 16:12 Home Med (Med Rec Complete!) ASDIRECTED XX 04/24/20 06:25 04/24/20 06:32 DC Allergies Coded Allergies: gabapentin (Verified Allergy, Intermediate, hives, 01/21/20) ketorolac (Verified Allergy, Intermediate, HIVES, 01/21/20) SUSAN MOSS MD Apr 25, 2020 08:37
[2020-04-25] MEDS ORDERED: HALO1TAB19 PO (13:59)
[2020-04-25 14:20] VITALS: BP 135/81
== END 2020-04-25 14:21 | disposition home or self-care (01) ==
LOC: M ED 21:03
DX: F29 Unspecified psychosis not due to a substance or known physiological condition (principal); F19.10 Other psychoactive substance abuse, uncomplicated; I10 Essential (primary) hypertension; F17.200 Nicotine dependence, unspecified, uncomplicated; Z88.8 Allergy status to other drugs, medicaments and biological substances
CPT/HCPCS: 80048; 80076; 80143; 80307; 82077; 84443; 85025; 85027; 87631; 96372; 99285; J1200; J1630; J2060

== ENCOUNTER 2020-05-20 11:00 | Inpatient (IN) | payer MEDICAID, OTHER ==
[~2020-05-20] VITALS: Ht 182.9 cm; Wt 96.2 kg
[~2020-05-20 11:00] MED LIST changes: +D31000TA2 PO; +HALO1TAB19 PO; +NORT10CA2 PO; +PANT40TA29 PO; +VENL37.598 PO
[2020-05-20 11:51] LABS: HEMATOCRIT 44.9 % (42.0-52.0); HEMOGLOBIN 15.7 g/dl (13.5-17.5); MEAN CORPUSCULAR HEMOGLOBIN 31.2 pg (27.0-33.0); MEAN CORPUSCULAR VOLUME 89.3 fl (80.0-96.0); PLATELET COUNT, AUTOMATED 420 10^3/uL (150-450); RED BLOOD COUNT 5.03 10^6/uL (4.30-6.10); WHITE BLOOD COUNT 23.7 10^3/uL (4.0-10.0)
[2020-05-20] MEDS ORDERED: ACETAMINOPHEN 325 MG TAB PO ONE (12:25)
[2020-05-20] MEDS ORDERED: NS 1,000 ML IV ONE (12:25)
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
[2020-05-20 12:56] LABS: ACETAMINOPHEN LEVEL < 2.0 UG/ML (10.0-30.0); ALBUMIN 4.3 GM/DL (3.2-5.2); ALT/SGPT 36 U/L (12-78); BILIRUBIN,DIRECT 0.2 MG/DL (0.0-0.2); BILIRUBIN,TOTAL 0.8 MG/DL (0.2-1.0); BLOOD UREA NITROGEN 12 MG/DL (7-18); CALCIUM LEVEL 9.7 MG/DL (8.5-10.1); CARBON DIOXIDE LEVEL 20 MEQ/L (21-32); CHLORIDE LEVEL 105 MEQ/L (98-107); CK-MB VALUE MASS 2.1 NG/ML (<3.6); CPK CREATINE PHOSPHOKINASE 219 U/L (39-308); CREATININE FOR GFR 1.32 MG/DL (0.70-1.30); ETHYL ALCOHOL (ETHANOL) < 0.003 % (0.000-0.010); GLOMERULAR FILTRATION RATE > 60.0 (>60); GLUCOSE, FASTING 106 MG/DL (70-100); MB/CK RELATIVE INDEX 0.96 (< OR =4); POTASSIUM SERUM 4.6 MEQ/L (3.5-5.1); SALICYLATE LEVEL 5.9 MG/DL (5.0-30.0); SODIUM LEVEL 136 MEQ/L (136-145); THYROID STIMULATING HORMONE 0.375 uIU/ML (0.358-3.740); TOTAL PROTEIN 7.6 GM/DL (6.4-8.2); TROPONIN I < 0.02 NG/ML (< 0.10)
[2020-05-20] MEDS ORDERED: OLANZapine ORAL DISINTEGRATING TAB 5MG PO ONE (21:45)
[2020-05-20 23:25] LABS: AMPHETAMINES LEVEL URINE NEGATIVE (NEGATIVE); BARBITURATES URINE NEGATIVE (NEGATIVE); BENZODIAZEPINES URINE NEGATIVE (NEGATIVE); CANNABINOIDS URINE POSITIVE (NEGATIVE); COCAINE METABOLITE URINE NEGATIVE (NEGATIVE); METHADONE URINE NEGATIVE (NEGATIVE); OPIATES URINE NEGATIVE (NEGATIVE); PHENCYCLIDINE URINE NEGATIVE (NEGATIVE)
[2020-05-21] MEDS ORDERED: MOM 30ML SUSPENSION UDC PO PRN (00:30)
[2020-05-21] MEDS ORDERED: MAALOX 30 ML SUSP *UDC PO PRN (00:30)
[2020-05-21] MEDS ORDERED: OLANZapine ORAL DISINTEGRATING TAB 5MG PO PRN (00:30)
[2020-05-21] MEDS ORDERED: traZODone 50 MG TAB PO PRN (00:30)
[2020-05-21] MEDS: LORazepam 1 MG TAB PO PRN (01:11)
[2020-05-21] MEDS ORDERED: haloperidoL 5 MG TAB PO STA ×2 (02:19→02:54)
[2020-05-21] MEDS ORDERED: LORazepam 2 MG TAB PO STA ×2 (02:19→02:54)
[2020-05-21] MEDS ORDERED: diphenhydrAMINE 50MG CAP PO STA ×2 (02:19→02:54)
[2020-05-21] MEDS ORDERED: NICO21DI37 TD (07:17)
[2020-05-21] MEDS ORDERED: BACL10TA2 PO (07:17)
[2020-05-21] MEDS ORDERED: NORT25CA2 PO (07:17)
[2020-05-21] MEDS ORDERED: D31000TA2 PO (07:17)
[2020-05-21] MEDS ORDERED: HALO1TAB19 PO (07:17)
[2020-05-21] MEDS ORDERED: PROTPAK PO (07:17)
[2020-05-21] MEDS ORDERED: PANT40TA29 PO (07:20)
[2020-05-21] MEDS ORDERED: PATIENT COMMENT (07:20)
[2020-05-21] MEDS: VENLAFAXINE **XR** 37.5 MG CAPSULE PO SCH ×3 (09:00→21:26)
[2020-05-21] MEDS: NORTRIPTYLINE 25 MG CAP PO SCH ×2 (09:00→10:39)
[2020-05-21 11:58] LABS: BASO # 0.1 10^3/uL (0.0-0.2); BASO % 0.6 % (0.0-1.0); EOS % 0.3 % (0.0-3.0); HEMATOCRIT 42.3 % (42.0-52.0); HEMOGLOBIN 14.7 g/dl (13.5-17.5); LYMPH # 1.5 10^3/uL (1.5-5.0); LYMPH % 16.8 % (24.0-44.0); MEAN CORPUSCULAR HEMOGLOBIN 31.6 pg (27.0-33.0); MEAN CORPUSCULAR HGB CONC 34.8 g/dl (32.0-36.5); MONO # 0.8 10^3/uL (0.0-0.8); MONO % 9.3 % (2.0-8.0); NEUTROPHILS # 6.5 10^3/uL (1.5-8.5); NEUTROPHILS % 72.7 % (36.0-66.0); PLATELET COUNT, AUTOMATED 348 10^3/uL (150-450); RED BLOOD COUNT 4.65 10^6/uL (4.30-6.10); WHITE BLOOD COUNT 8.9 10^3/uL (4.0-10.0)
[2020-05-21] MEDS: BENZTROPINE 0.5 MG TAB PO SCH ×2 (12:09→21:26)
[2020-05-21] MEDS: LITHIUM CARBONATE 150 MG CAP PO SCH ×2 (12:09→21:26)
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
[2020-05-21 13:03] LABS: ALBUMIN 3.9 GM/DL (3.2-5.2); ALT/SGPT 32 U/L (12-78); BILIRUBIN,TOTAL 0.8 MG/DL (0.2-1.0); BLOOD UREA NITROGEN 12 MG/DL (7-18); CALCIUM LEVEL 9.5 MG/DL (8.5-10.1); CARBON DIOXIDE LEVEL 21 MEQ/L (21-32); CHLORIDE LEVEL 108 MEQ/L (98-107); CREATININE FOR GFR 0.91 MG/DL (0.70-1.30); GLOMERULAR FILTRATION RATE > 60.0 (>60); GLUCOSE, FASTING 114 MG/DL (70-100); POTASSIUM SERUM 4.3 MEQ/L (3.5-5.1); SODIUM LEVEL 139 MEQ/L (136-145); TOTAL PROTEIN 6.9 GM/DL (6.4-8.2)
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
[2020-05-21] MEDS: PANTOPRAZOLE 40MG TAB (PROTONIX) PO SCH (15:34)
[2020-05-21] MEDS ORDERED: GABAPENTIN 100 MG CAP PO SCH (16:00)
[2020-05-21 16:17] VITALS: BP 146/67
--- NOTE | 2020-05-21 19:39 | ECGEPIP ---
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
[2020-05-21] MEDS ORDERED: VENLAFAXINE **XR** 37.5 MG CAPSULE PO SCH (21:00)
[2020-05-21] MEDS: risperiDONE 2 MG TAB PO SCH (21:25)
[2020-05-21] MEDS: clonazePAM 1 MG TAB PO SCH (21:26)
[2020-05-22 07:39] VITALS: BP 133/73
[2020-05-22] MEDS: VENLAFAXINE **XR** 37.5 MG CAPSULE PO SCH ×2 (08:16→20:09)
[2020-05-22] MEDS: BENZTROPINE 0.5 MG TAB PO SCH ×2 (08:16→20:08)
[2020-05-22] MEDS: LITHIUM CARBONATE 150 MG CAP PO SCH ×2 (08:17→20:08)
[2020-05-22] MEDS: PANTOPRAZOLE 40MG TAB (PROTONIX) PO SCH (08:17)
[2020-05-22] MEDS: risperiDONE 1 MG TAB PO SCH (08:18)
[2020-05-22] MEDS: ACETAMINOPHEN TAB 650MG DOSE (2X325MG) PO PRN ×2 (08:18→20:37)
[2020-05-22] MEDS: LORazepam 1 MG TAB PO PRN (09:49)
[2020-05-22 16:12] VITALS: BP 135/79
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
[2020-05-22] MEDS: risperiDONE 2 MG TAB PO SCH (20:09)
[2020-05-22] MEDS: clonazePAM 1 MG TAB PO SCH (20:09)
[2020-05-22] MEDS ORDERED: IBUPROFEN 800 MG TAB PO PRN (21:40)
[2020-05-23 06:00] VITALS: BP 160/89
[2020-05-23] MEDS: LORazepam 1 MG TAB PO PRN ×2 (06:36→12:53)
[2020-05-23] MEDS: BENZTROPINE 0.5 MG TAB PO SCH ×2 (08:00→20:16)
[2020-05-23] MEDS: PANTOPRAZOLE 40MG TAB (PROTONIX) PO SCH (08:00)
[2020-05-23] MEDS: LITHIUM CARBONATE 150 MG CAP PO SCH ×2 (08:00→20:16)
[2020-05-23] MEDS: VENLAFAXINE **XR** 37.5 MG CAPSULE PO SCH ×2 (08:00→20:16)
[2020-05-23] MEDS: risperiDONE 1 MG TAB PO SCH (08:00)
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
[2020-05-23 17:06] VITALS: BP 144/80
[2020-05-23] MEDS: risperiDONE 2 MG TAB PO SCH (20:17)
[2020-05-23] MEDS: clonazePAM 1 MG TAB PO SCH (20:17)
[2020-05-24] MEDS: LORazepam 1 MG TAB PO PRN (02:56)
[2020-05-24 06:28] VITALS: BP 162/98
[2020-05-24] MEDS: VENLAFAXINE **XR** 37.5 MG CAPSULE PO SCH (09:14)
[2020-05-24] MEDS: BENZTROPINE 0.5 MG TAB PO SCH (09:14)
[2020-05-24] MEDS: risperiDONE 1 MG TAB PO SCH (09:15)
[2020-05-24] MEDS: LITHIUM CARBONATE 150 MG CAP PO SCH (09:15)
[2020-05-24] MEDS: PANTOPRAZOLE 40MG TAB (PROTONIX) PO SCH (09:15)
[2020-05-24] MEDS ORDERED: RISP-8 PO (11:55)
[2020-05-24] MEDS ORDERED: LITH150C PO (11:55)
[2020-05-24] MEDS ORDERED: RISP-9 PO (11:55)
[2020-05-24] MEDS ORDERED: VENL37.598 PO (11:55)
--- NOTE | 2020-05-24 13:14 | MHDS ---
[facility] DISCHARGE SUMMARY DATE OF ADMISSION: 05/20/2020 DATE OF DISCHARGE: 05/24/2020 DIAGNOSES: 1. Substance-induced psychotic disorder. 2. Antisocial personality traits. 3. Cannabis use disorder. IDENTIFYING DATA: He is a 34-year-old male living with his girlfriend and 2-year-old daughter, admitted because of aggressive behavior at home. He was aggressive towards family members as well as the police. He had to be tazed and then brought to the hospital. This is his first psychiatric hospitalization. He had several legal charges against him. He was in [facility] before. For details of history of present illness (HPI), past psychiatric history, substance abuse history, legal history, please refer to the initial evaluation. COURSE IN THE HOSPITAL: Patient was very aggressive initially. He was placed on risperidone, venlafaxine, lithium and Cogentin. Patient was also provided with individual, group and milieu therapy. Patient was compliant with his medication. He started attending groups. He was calmer. His sleep improved. His anxiety became less. He was stable at the time of discharge. Denied any side effect of the medications. MENTAL STATUS EXAMINATION: Casually dressed, cooperative. Made good eye contact. Psychomotor activity is normal. Mood euthymic with appropriate affect. Denied any auditory or visual hallucinations. Denied any suicidal or homicidal ideas. His attention is normal. Memory: Immediate, remote, recent are good. PLAN: Discharge him to the police. There is an order of protection against him filed by his significant other. DISCHARGE MEDICATIONS: - risperidone 1 mg in the morning, 2 mg at night - lithium carbonate 150 mg twice a day - benztropine 5 mg twice a day TIME SPENT ON DISCHARGE: Less than 30 minutes.
[2020-05-25] MEDS ORDERED: KLON0.5T PO (12:24)
== END 2020-05-24 12:45 | DRG 776 ==
LOC: M ED 11:00 → M ED INP 11:01 → M PSY 05-21 02:00
PROVIDERS: ADMIT Psychiatry & Neurology Psychiatry; ATTEND Psychiatry & Neurology Psychiatry
DX: F19.94 Other psychoactive substance use, unspecified with psychoactive substance-induced mood disorder (principal); I10 Essential (primary) hypertension; F12.90 Cannabis use, unspecified, uncomplicated; F60.2 Antisocial personality disorder; Z65.3 Problems related to other legal circumstances; K21.9 Gastro-esophageal reflux disease without esophagitis; Z88.8 Allergy status to other drugs, medicaments and biological substances; Z79.899 Other long term (current) drug therapy; F17.200 Nicotine dependence, unspecified, uncomplicated

== ENCOUNTER → 2020-06-08 | Outpatient (REF) ==
[~2020-06-08] MED LIST changes: +KLON0.5T PO; +LITH150C PO; +NICO21DI37 TD; +NORT25CA2 PO; +PATIENT COMMENT; +PROTPAK PO; +RISP-8 PO; +RISP-9 PO
--- NOTE | 2020-06-08 14:50 | REP ---
INDICATION: DDD COMPARISON: CT dated 01/21/2020 TECHNIQUE: AP, lateral, coned-down views of the lumbar spine. FINDINGS: Evidence for prior stable laminectomy and posterior fixation at L5-S1. Remainder of the examination is normal. Findings appear relatively stable when compared with most recent CT examination. No acute fracture/compression injury or subluxation. IMPRESSION: 1. Stable postsurgical changes at L5-S1. <Electronically signed by Gustabo Loja > 06/08/20 [id number]
== END ==
LOC: M RAD 14:02
PROVIDERS: ATTEND Internal Medicine
DX: Z98.890 Other specified postprocedural states (principal)

== ENCOUNTER 2020-09-24 17:34 | Inpatient (IN) | payer MEDICAID, OTHER ==
[~2020-09-24] VITALS: Ht 188 cm; Wt 79.5 kg
[~2020-09-24 17:34] MED LIST changes: +DOK1CAP4 PO; -DOK1CAP7 PO
[2020-09-24 18:01] LABS: HEMATOCRIT 48.8 % (42.0-52.0); HEMOGLOBIN 17.1 g/dl (13.5-17.5); MEAN CORPUSCULAR HEMOGLOBIN 30.6 pg (27.0-33.0); MEAN CORPUSCULAR VOLUME 87.3 fl (80.0-96.0); PLATELET COUNT, AUTOMATED 445 10^3/uL (150-450); RED BLOOD COUNT 5.59 10^6/uL (4.30-6.10); WHITE BLOOD COUNT 12.1 10^3/uL (4.0-10.0)
[2020-09-24] MEDS ORDERED: haloperidoL 5 MG TAB PO STA (18:29)
[2020-09-24] MEDS ORDERED: diphenhydrAMINE 50MG CAP PO ONE (18:30)
[2020-09-24] MEDS ORDERED: LORazepam 1 MG TAB PO ONE (18:30)
[2020-09-24 18:43] LABS: ACETAMINOPHEN LEVEL < 2.0 UG/ML (10.0-30.0); ALBUMIN 4.3 GM/DL (3.2-5.2); ALT/SGPT 28 U/L (12-78); BILIRUBIN,DIRECT 0.2 MG/DL (0.0-0.2); BILIRUBIN,TOTAL 0.5 MG/DL (0.2-1.0); BLOOD UREA NITROGEN 11 MG/DL (7-18); CALCIUM LEVEL 9.4 MG/DL (8.5-10.1); CARBON DIOXIDE LEVEL 28 MEQ/L (21-32); CHLORIDE LEVEL 107 MEQ/L (98-107); CREATININE FOR GFR 1.15 MG/DL (0.70-1.30); ETHYL ALCOHOL (ETHANOL) < 0.003 % (0.000-0.010); GLOMERULAR FILTRATION RATE > 60.0 (>60); GLUCOSE, FASTING 106 MG/DL (70-100); POTASSIUM SERUM 4.6 MEQ/L (3.5-5.1); SALICYLATE LEVEL 4.2 MG/DL (5.0-30.0); SODIUM LEVEL 142 MEQ/L (136-145); TOTAL PROTEIN 7.9 GM/DL (6.4-8.2)
[2020-09-24] MEDS ORDERED: LORazepam 2 MG/ML VIAL IM ONE (19:15)
[2020-09-24] MEDS ORDERED: OLANZapine ORAL DISINTEGRATING TAB 5MG PO ONE (20:55)
[2020-09-24 22:06] LABS: AMPHETAMINES LEVEL URINE NEGATIVE (NEGATIVE); BARBITURATES URINE NEGATIVE (NEGATIVE); BENZODIAZEPINES URINE NEGATIVE (NEGATIVE); CANNABINOIDS URINE POSITIVE (NEGATIVE); COCAINE METABOLITE URINE NEGATIVE (NEGATIVE); METHADONE URINE NEGATIVE (NEGATIVE); OPIATES URINE NEGATIVE (NEGATIVE); PHENCYCLIDINE URINE NEGATIVE (NEGATIVE)
[2020-09-24] MEDS ORDERED: OLANZapine INTRAMUSCULAR 10MG VIAL IM ONE (22:35)
[2020-09-25] MEDS ORDERED: NICOTINE 14 MG/24 HR TRANSDERMAL XX ONE (11:40)
[2020-09-25] MEDS ORDERED: HOME MED LIST COMPLETE! XX SCH (12:30)
[2020-09-25 13:32] LABS: RSV AMPLIFICATION NEGATIVE (NEGATIVE)
[2020-09-25] MEDS ORDERED: MOM 30ML SUSPENSION UDC PO PRN (14:30)
[2020-09-25] MEDS ORDERED: MAALOX 30 ML SUSP *UDC PO PRN (14:30)
[2020-09-25] MEDS: OLANZapine ORAL DISINTEGRATING TAB 5MG PO PRN (15:10)
[2020-09-25 16:43] VITALS: BP 140/81
[2020-09-25] MEDS: hydrOXYzine 50 MG TAB PO PRN (18:39)
[2020-09-25] MEDS: traZODone 50 MG TAB PO PRN (20:43)
[2020-09-25] MEDS: ACETAMINOPHEN TAB 650MG DOSE (2X325MG) PO PRN (20:43)
[2020-09-26 06:53] VITALS: BP 131/70
[2020-09-26] MEDS: hydrOXYzine 50 MG TAB PO PRN ×3 (09:22→22:37)
[2020-09-26] MEDS: NICOTINE 21MG/24HR 1 EA TRANSDERMAL TD SCH (09:23)
[2020-09-26] MEDS: OLANZapine ORAL DISINTEGRATING TAB 5MG PO PRN (11:04)
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
[2020-09-26 12:04] LABS: CHOLESTEROL RISK RATIO 4.736 (<5)
[2020-09-26 12:33] LABS: HEMOGLOBIN A1c 5.5 %
[2020-09-26] MEDS: ACETAMINOPHEN TAB 650MG DOSE (2X325MG) PO PRN (13:46)
[2020-09-26 16:35] VITALS: BP 134/70
[2020-09-26] MEDS: traZODone 50 MG TAB PO PRN (20:12)
[2020-09-27 05:52] VITALS: BP 150/89
[2020-09-27] MEDS: NICOTINE 21MG/24HR 1 EA TRANSDERMAL TD SCH (08:57)
[2020-09-27] MEDS: OMEGA-3 1000MG CAPSULE PO SCH ×2 (10:59→20:50)
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
[2020-09-27] MEDS: PALIPERIDONE 6 MG ER TAB (INVEGA) PO SCH (13:22)
[2020-09-27 19:25] VITALS: BP 149/79
[2020-09-27] MEDS ORDERED: OLANZapine 10 MG TAB PO SCH (21:00)
[2020-09-28 06:38] VITALS: BP 136/86
[2020-09-28] MEDS: NICOTINE 21MG/24HR 1 EA TRANSDERMAL TD SCH (08:10)
[2020-09-28] MEDS: OMEGA-3 1000MG CAPSULE PO SCH (08:11)
[2020-09-28] MEDS: PALIPERIDONE 6 MG ER TAB (INVEGA) PO SCH (08:11)
[2020-09-28] MEDS ORDERED: PALIPERIDONE PALMITATE 234MG/1.5ML INJ (INVEGA)(FREE PSY INPT ONLY) IM ONE (13:00)
[2020-09-28] MEDS ORDERED: INVE117I IM (14:00)
[2020-09-28] MEDS ORDERED: PALI1TAB3 PO (14:00)
[2020-09-28] MEDS ORDERED: NICO21PAT TD (14:00)
[2020-09-28] MEDS ORDERED: INVE156I IM (14:00)
[2020-09-28] MEDS ORDERED: FISH1CAP26 PO (14:00)
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
== END 2020-09-28 14:32 | disposition home or self-care (01) | DRG 775 ==
LOC: M ED 17:34 → M ED INP 09-25 14:28 → M PSY 09-25 16:35
PROVIDERS: ADMIT Psychiatry & Neurology Psychiatry; ATTEND Student in an Organized Health Care Education/Training Program
DX: F12.950 Cannabis use, unspecified with psychotic disorder with delusions (principal); F10.10 Alcohol abuse, uncomplicated; F31.9 Bipolar disorder, unspecified; F17.200 Nicotine dependence, unspecified, uncomplicated; Z88.8 Allergy status to other drugs, medicaments and biological substances

== ENCOUNTER 2020-12-19 17:39 | Inpatient (IN) | payer MEDICAID, OTHER ==
[~2020-12-19] VITALS: Ht 180.3 cm; Wt 95.3 kg
[~2020-12-19 17:39] MED LIST changes: +FISH1CAP26 PO; +INVE117I IM; +INVE156I IM; +NICO21PAT TD; +PALI1TAB3 PO
--- OUTSIDE RECORDS SUMMARY | 2020-12-19 17:50 | CCD ---
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 Name Role Phone Alicia Martin MD Unavailable Unavailable Alicia Martin MD Unavailable Unavailable Alicia Martin MD Unavailable Unavailable Alicia Martin MD Unavailable Unavailable Alicia Martin MD Unavailable Unavailable Alicia Martin MD Unavailable Unavailable Alicia Martin MD Unavailable Unavailable Alicia Martin MD Unavailable Unavailable Alicia Martin MD Unavailable Unavailable Alicia Martin MD Unavailable Unavailable Alicia Martin MD Unavailable Unavailable Alicia Martin MD Unavailable Unavailable Alicia Martin MD Unavailable Unavailable Alicia Martin MD Unavailable Unavailable Alicia Martin MD Unavailable Unavailable Alicia Martin MD Unavailable Unavailable Alicia Martin MD Unavailable Unavailable Alicia Martin MD Unavailable Unavailable Alicia Martin MD Unavailable Unavailable Alicia Martin MD Unavailable Unavailable Alicia Martin MD Unavailable Unavailable Alicia Martin MD Unavailable Unavailable Alicia Martin MD Unavailable Unavailable Alicia Martin MD Unavailable Unavailable Alicia Martin MD Unavailable Unavailable Alicia Martin MD Unavailable Unavailable Alicia Martin MD Unavailable Unavailable Alicia Martin MD Unavailable Unavailable Alicia Martin MD Unavailable Unavailable Alicia Martin MD Unavailable Unavailable Alicia Martin MD Unavailable Unavailable Alicai Martin MD Unavailable Unavailable Alicia Martin MD Unavailable Unavailable Alicia Martin MD Unavailable Unavailable Alicia Martin MD Unavailable Unavailable Alicia Martin MD Unavailable Unavailable Alicia Martin MD Unavailable Unavailable Alicia Martin MD Unavailable Unavailable Alicia Martin MD Unavailable Unavailable Alicia Martin MD Unavailable Unavailable Alicia Martin MD Unavailable Unavailable Alicia Martin MD Unavailable Unavailable Alicia Martin MD Unavailable Unavailable Alicia Martin MD Unavailable Unavailable Alicia Martin MD Unavailable Unavailable Alicia Martin MD Unavailable Unavailable Alicia Martin MD Unavailable Unavailable Alicia Martin MD Unavailable Unavailable Alicia Martin MD Unavailable Unavailable Alicia Martin MD Unavailable Unavailable Alicia Martin MD Unavailable Unavailable Alicia Martin MD Unavailable Unavailable Alicia Martin MD Unavailable Unavailable Alicia Martin MD Unavailable Unavailable Alicia Martin MD Unavailable Unavailable Alicia Martin MD Unavailable Unavailable Alicia Martin MD Unavailable Unavailable Alicia Martin MD Unavailable Unavailable Alicia Martin MD Unavailable Unavailable Alicia Martin MD Unavailable Unavailable Alicia Martin MD Unavailable Unavailable Alicia Martin MD Unavailable Unavailable Alicia Martin MD Unavailable Unavailable Alicia Martin MD Unavailable Unavailable Alicia Martin MD Unavailable Unavailable Alicia Martin MD Unavailable Unavailable Alicia Martin MD Unavailable Unavailable Alicia Martin MD Unavailable Unavailable Alicia Martin MD Unavailable Unavailable Alicia Martin MD Unavailable Unavailable Alicia Martin MD Unavailable Unavailable Alicia Martin MD Unavailable Unavailable Alicia Martin MD Unavailable Unavailable Alicia Martin MD Unavailable Unavailable Alicia Martin MD Unavailable Unavailable Alicia Martin MD Unavailable Unavailable Alicia Martin MD Unavailable Unavailable Alicia Martin MD Unavailable Unavailable Alicia Martin MD Unavailable Unavailable Alicia Martin MD Unavailable Unavailable Alicia Martin MD Unavailable Unavailable Alicia Martin MD Unavailable Unavailable Alicia Martin MD Unavailable Unavailable Alicia Martin MD Unavailable Unavailable Alicia Martin MD Unavailable Unavailable Alicia Martin MD Unavailable Unavailable Alicia Martin MD Unavailable Unavailable Alicia Martin MD Unavailable Unavailable Alicia Martin MD Unavailable Unavailable Alicia Martin MD Unavailable Unavailable Alicia Martin MD Unavailable Unavailable Alicia Martin MD Unavailable Unavailable Alicia Martin MD Unavailable Unavailable NICOLAS AN MD Unavailable Unavailable JOHNSON, ANTONI MARIBEL RPA-C Unavailable Unavailable JOHNSON, ANTONI MARIBEL RPA-C Unavailable Unavailable JOHNSON, ANTONI MARIBEL RPA-C Unavailable Unavailable JOHNSON, ANTONI MARIBEL RPA-C Unavailable Unavailable JOHNSON, ANTONI MARIBEL RPA-C Unavailable Unavailable JOHNSON, ANTONI MARIBEL RPA-C Unavailable Unavailable JOHNSON, ANTONI MARIBEL RPA-C Unavailable Unavailable JOHNSON, ANTONI MARIBEL RPA-C Unavailable Unavailable JOHNSON, ANTONI MARIBEL RPA-C Unavailable Unavailable JOHNSON, ANTONI MARIBEL RPA-C Unavailable Unavailable JOHNSON, ANTONI MARIBEL RPA-C Unavailable Unavailable JOHNSON, ANTONI MARIBEL RPA-C Unavailable Unavailable JOHNSON, ANTONI MARIBEL RPA-C Unavailable Unavailable JOHNSON, ANTONI MARIBEL RPA-C Unavailable Unavailable JOHNSON, ANTONI MARIBEL RPA-C Unavailable Unavailable JOHNSON, ANTONI MARIBEL RPA-C Unavailable Unavailable JOHNSON, ANTONI MARIBEL RPA-C Unavailable Unavailable JOHNSON, ANTONI MARIBEL RPA-C Unavailable Unavailable JOHNSON, ANTONI MARIBEL RPA-C Unavailable Unavailable JOHNSON, ANTONI MARIBEL RPA-C Unavailable Unavailable JONHSON, ANTONI MARIBEL RPA-C Unavailable Unavailable JOHNSON, ANTONI MARIBEL RPA-C Unavailable Unavailable JOHNSON, ANTONI MARIBEL RPA-C Unavailable Unavailable JOHNSON, ANTONI MARIBEL RPA-C Unavailable Unavailable JOHNSON, ANTONI MARIBEL RPA-C Unavailable Unavailable JOHNSON, ANTONI MARIBEL RPA-C Unavailable Unavailable JOHNSON, ANTONI MARIBEL RPA-C Unavailable Unavailable JOHNSON, ANTONI MARIBEL RPA-C Unavailable Unavailable JOHNSON, ANTONI MARIBEL RPA-C Unavailable Unavailable JOHNSON, ANTONI MARIBEL RPA-C Unavailable Unavailable JOHNSON, ANTONI MARIBEL RPA-C Unavailable Unavailable JOHNSON, ANTONI MARIBEL RPA-C Unavailable Unavailable JOHNSON, ANTONI MARIBEL RPA-C Unavailable Unavailable JOHNSON, ANTONI MARIBEL RPA-C Unavailable Unavailable JOHNSON, ANTONI MARIBEL RPA-C Unavailable Unavailable JOHNSON, ANTONI MARIBEL RPA-C Unavailable Unavailable JOHNSON, ANTONI MARIBEL RPA-C Unavailable Unavailable JOHNSON, ANTONI MARIBEL RPA-C Unavailable Unavailable JOHNSON, ANTONI MARIBEL RPA-C Unavailable Unavailable JOHNSON, ANTONI MARIBEL RPA-C Unavailable Unavailable JOHNSON, ANTONI MARIBEL RPA-C Unavailable Unavailable JOHNSON, ANTONI MARIBEL RPA-C Unavailable Unavailable JOHNSON, ANTONI MARIBEL RPA-C Unavailable Unavailable Shay FRANCO, Tanika Juan Unavailable Shay MD, A Juan Unavailable Shay MD, A Juan Unavailable Shay MD, A Juan Unavailable Shay MD, A Juan Unavailable Shay MD, A Juan Unavailable Shay MD, A Juan Unavailable Shay MD, A Juan Unavailable Shay MD, A Juan Unavailable Shay MD, A Juan Unavailable Shay MD, A Juan Unavailable Shay MD, A Juan Unavailable Shay MD, A Juan Unavailable Shay MD, A Juan Unavailable Shay MD, A Juan Unavailable Shay MD, A Juan Unavailable Shay MD, A Juan Unavailable Shay MD, A Juan Unavailable Shay MD, A Juan Unavailable Shay MD, A Juan Unavailable Shay MD, A Juan Unavailable Shay MD, A Juan Unavailable Shay MD, A Juan Unavailable Shay MD, A Juan Unavailable Shay MD, A Juan Unavailable Shay MD, A Juan Unavailable Shay MD, A Juan Unavailable Shay MD, A Juan Unavailable Shay MD, A Juan Unavailable Shay MD, A Juan Unavailable Shay MD, A Juan Unavailable Shay MD, A Juan Unavailable Shay MD, A Juan Unavailable Shay MD, A Juan Unavailable Shay MD, A Juan Unavailable Shay MD, A Juan Unavailable Shay MD, A Juan Unavailable Shay MD, A Juan Unavailable Shay MD, A Juan Unavailable Shay MD, A Juan Unavailable Shay MD, A Juan Unavailable Shay MD, A Juan Unavailable Shay MD, A Juan Unavailable Shay MD, A Juan Unavailable Shay MD, A Juan Unavailable Shay MD, A Juan Unavailable Shay MD, A Juan Unavailable Shay MD, A Juan Unavailable JOHNSON, ANTONI MARIBEL RPA-C Unavailable Unavailable JOHNSON, ANTONI MARIBEL RPA-C Unavailable Unavailable JOHNSON, ANTONI MARIBEL RPA-C Unavailable Unavailable JOHNSON, ANTONI MARIBEL RPA-C Unavailable Unavailable JOHNSON, ANTONI MARIBEL RPA-C Unavailable Unavailable JOHNSON, ANTONI MARIBEL RPA-C Unavailable Unavailable JOHNSON, ANTONI MARIBEL RPA-C Unavailable Unavailable JOHNSON, ANTONI MARIBEL RPA-C Unavailable Unavailable JOHNSON, ANTONI MARIBEL RPA-C Unavailable Unavailable JOHNSON, ANTONI MARIBEL RPA-C Unavailable Unavailable JOHNSON, ANTONI MARIBEL RPA-C Unavailable Unavailable JOHNSON, ANTONI MARIBEL RPA-C Unavailable Unavailable JOHNSON, ANTONI MARIBEL RPA-C Unavailable Unavailable JOHNSON, ANTONI MARIBEL RPA-C Unavailable Unavailable JOHNSON, ANTONI MARIBEL RPA-C Unavailable Unavailable JOHNSON, ANTONI MARIBEL RPA-C Unavailable Unavailable JOHNSON, ANTONI MARIBEL RPA-C Unavailable Unavailable JOHNSON, ANTONI MARIBEL RPA-C Unavailable Unavailable JOHNSON, ANTONI MARIBEL RPA-C Unavailable Unavailable JOHNSON, ANTONI MARIBEL RPA-C Unavailable Unavailable JOHNSON, ANTONI MARIBEL RPA-C Unavailable Unavailable JOHNSON, ANTONI MARIBEL RPA-C Unavailable Unavailable JOHNSON, ANTONI MARIBEL RPA-C Unavailable Unavailable JOHNSON, ANTONI MARIBEL RPA-C Unavailable Unavailable JOHNSON, ANTONI MARIBEL RPA-C Unavailable Unavailable JOHNSON, ANTONI MARIBEL RPA-C Unavailable Unavailable JOHNSON, ANTONI MARIBEL RPA-C Unavailable Unavailable JOHNSON, ANTONI MARIBEL RPA-C Unavailable Unavailable JOHNSON, ANTONI MARIBEL RPA-C Unavailable Unavailable JOHNSON, ANTONI MARIBEL RPA-C Unavailable Unavailable JOHNSON, ANTONI MARIBEL RPA-C Unavailable Unavailable JOHNSON, ANTONI MARIBEL RPA-C Unavailable Unavailable JOHNSON, ANTONI MARIBEL RPA-C Unavailable Unavailable JOHNSON, ANTONI MARIBEL RPA-C Unavailable Unavailable JOHNSON, ANTONI MARIBEL RPA-C Unavailable Unavailable JOHNSON, ANTONI MARIBEL RPA-C Unavailable Unavailable JOHNSON, ANTONI MARIBEL RPA-C Unavailable Unavailable JOHNSON, ANTONI MARIBEL RPA-C Unavailable Unavailable JOHNSON, ANTONI MARIBEL RPA-C Unavailable Unavailable JOHNSON, ANTONI MARIBEL RPA-C Unavailable Unavailable JOHNSON, ANTONI MARIBEL RPA-C Unavailable Unavailable JOHNSON, ANTONI MARIBEL RPA-C Unavailable Unavailable JOHNSON, ANTONI MARIBEL RPA-C Unavailable Unavailable Maryann RICHARD MD Unavailable Unavailable Maryann RICHARD MD Unavailable Unavailable Maryann RICHARD MD Unavailable Unavailable Maryann RICHARD MD Unavailable Unavailable Maryann RICHARD MD Unavailable Unavailable Maryann RICHARD MD Unavailable Unavailable Maryann RICHARD MD Unavailable Unavailable Maryann RICHARD MD Unavailable Unavailable Maryann RICHARD MD Unavailable Unavailable Maryann RICHARD MD Unavailable Unavailable HILARY, Maryann WELLS MD Unavailable Unavailable HILARY, Maryann WELLS MD Unavailable Unavailable HILARY, Maryann WELLS MD Unavailable Unavailable HILARY, Maryann WELLS MD Unavailable Unavailable HILARY, Maryann WELLS MD Unavailable Unavailable HILARY, Maryann WELLS MD Unavailable Unavailable HILARY, Maryann WELLS MD Unavailable Unavailable HILARY, Maryann WELLS MD Unavailable Unavailable HILARY, Maryann WELLS MD Unavailable Unavailable HILARY, Maryann WELLS MD Unavailable Unavailable HILARY, Maryann WELLS MD Unavailable Unavailable HILARY, Maryann WELLS MD Unavailable Unavailable HILARY, Maryann WELLS MD Unavailable Unavailable HILARY, Maryann WELLS MD Unavailable Unavailable HILARY, Maryann WELLS MD Unavailable Unavailable HILARY, Maryann WELLS MD Unavailable Unavailable HILARY, Maryann WELLS MD Unavailable Unavailable HILARY, Maryann WELLS MD Unavailable Unavailable HILARY, Maryann WELLS MD Unavailable Unavailable HILARY, Maryann WELLS MD Unavailable Unavailable HILARY, Maryann WELLS MD Unavailable Unavailable HILARY, Maryann WELLS MD Unavailable Unavailable HILARY, Maryann WELLS MD Unavailable Unavailable HILARY, Maryann WELLS MD Unavailable Unavailable HILARY, Maryann WELLS MD Unavailable Unavailable HILARY, Maryann WELLS MD Unavailable Unavailable HILARY, Maryann WELLS MD Unavailable Unavailable HILARY, Maryann WELLS MD Unavailable Unavailable HILARY, Maryann WELLS MD Unavailable Unavailable HILARY, Maryann WELLS MD Unavailable Unavailable HILARY, Maryann WELLS MD Unavailable Unavailable HILARY, Maryann WELLS MD Unavailable Unavailable HILARY, Maryann WELLS MD Unavailable Unavailable HILARY, Maryann WELLS MD Unavailable Unavailable HILARY, Maryann WELLS MD Unavailable Unavailable HILARY, Maryann WELLS MD Unavailable Unavailable HILARY, Maryann WELLS MD Unavailable Unavailable HILARY, Maryann WELLS MD Unavailable Unavailable HILARY, Maryann WELLS MD Unavailable Unavailable HILARY, Maryann WELLS MD Unavailable Unavailable HILARY, Maryann WELLS MD Unavailable Unavailable HILARY, Maryann WELLS MD Unavailable Unavailable HILARY, Maryann WELLS MD Unavailable Unavailable HILARY, Maryann WELLS MD Unavailable Unavailable HILARY, Maryann WELLS MD Unavailable Unavailable HILARY, Maryann WELLS MD Unavailable Unavailable HILARY, Maryann WELLS MD Unavailable Unavailable HILARY, Maryann WELLS MD Unavailable Unavailable HILARY, Maryann WELLS MD Unavailable Unavailable HILARY, Maryann WELLS MD Unavailable Unavailable HILARY, Maryann WELLS MD Unavailable Unavailable HILARY, Maryann WELLS MD Unavailable Unavailable HILARY, Maryann WELLS MD Unavailable Unavailable HILARY, Maryann WELLS MD Unavailable Unavailable HILARY, Maryann WELLS MD Unavailable Unavailable HILARY, Maryann WELLS MD Unavailable Unavailable HILARY, Maryann WELLS MD Unavailable Unavailable HILARY, Maryann WELLS MD Unavailable Unavailable HILARY, Maryann WELLS MD Unavailable Unavailable HILARY, Maryann WELLS MD Unavailable Unavailable HILARY, Maryann WELLS MD Unavailable Unavailable HILARY, Maryann WELLS MD Unavailable Unavailable HILARY, Maryann WELLS MD Unavailable Unavailable HILARY, Maryann WELLS MD Unavailable Unavailable HILARY, Maryann WELLS MD Unavailable Unavailable HILARY, Maryann WELLS MD Unavailable Unavailable HILARY, Maryann WELLS MD Unavailable Unavailable HILARY, Maryann WELLS MD Unavailable Unavailable HILARY, Maryann WELLS MD Unavailable Unavailable HILARY, Maryann WELLS MD Unavailable Unavailable HILARY, Maryann WELLS MD Unavailable Unavailable HILARY, Maryann WELLS MD Unavailable Unavailable HILARY, Maryann WELLS MD Unavailable Unavailable HILARY, Maryann WELLS MD Unavailable Unavailable HILARY, Maryann WELLS MD Unavailable Unavailable HILARY, Maryann WELLS MD Unavailable Unavailable HILARY, Maryann WELLS MD Unavailable Unavailable HILARY, Maryann WELLS MD Unavailable Unavailable HILARY, Maryann WELLS MD Unavailable Unavailable HILARY, Maryann WELLS MD Unavailable Unavailable HILARY, Maryann WELLS MD Unavailable Unavailable JOHNSON, ANTONI MARIBEL RPA-C Unavailable Unavailable JOHNSON, ANTONI MARIBEL RPA-C Unavailable Unavailable JOHNSON, ANTONI MARIBEL RPA-C Unavailable Unavailable JOHNSON, ANTONI MARIBEL RPA-C Unavailable Unavailable JOHNSON, ANTONI MARIBEL RPA-C Unavailable Unavailable JOHNSON, ANTONI MARIBEL RPA-C Unavailable Unavailable JOHNSON, ANTONI MARIBEL RPA-C Unavailable Unavailable JOHNSON, ANTONI MARIBEL RPA-C Unavailable Unavailable JOHNSON, ANTONI MARIBEL RPA-C Unavailable Unavailable JOHNSON, ANTONI MARIBEL RPA-C Unavailable Unavailable JOHNSON, ANTONI MARIBEL RPA-C Unavailable Unavailable JOHNSON, ANTONI MARIBEL RPA-C Unavailable Unavailable JOHNSON, ANTONI MARIBEL RPA-C Unavailable Unavailable JOHNSON, ANTONI MARIBEL RPA-C Unavailable Unavailable JOHNSON, ANTONI MARIBEL RPA-C Unavailable Unavailable JOHNSON, ANTONI MARIBEL RPA-C Unavailable Unavailable JOHNSON, ANTONI MARIBEL RPA-C Unavailable Unavailable JOHNSON, ANTONI MARIBEL RPA-C Unavailable Unavailable JOHNSON, ANTONI MARIBEL RPA-C Unavailable Unavailable JOHNSON, ANTONI MARIBEL RPA-C Unavailable Unavailable JOHNSON, ANTONI MARIBEL RPA-C Unavailable Unavailable JOHNSON, ANTONI MARIBEL RPA-C Unavailable Unavailable JOHNSON, ANTONI MARIBEL RPA-C Unavailable Unavailable JOHNSON, ANTONI MARIBEL RPA-C Unavailable Unavailable JOHNSON, ANTONI MARIBEL RPA-C Unavailable Unavailable JOHNSON, ANTONI MARIBEL RPA-C Unavailable Unavailable JOHNSON, ANTONI MARIBEL RPA-C Unavailable Unavailable JOHNSON, ANTONI MARIBEL RPA-C Unavailable Unavailable JOHNSON, ANTONI AMRIBEL RPA-C Unavailable Unavailable JOHNSON, ANTONI MARIBEL RPA-C Unavailable Unavailable JOHNSON, ANTONI MARIBEL RPA-C Unavailable Unavailable JOHNSON, ANTONI MARIBEL RPA-C Unavailable Unavailable JOHNSON, ANTONI MARIBEL RPA-C Unavailable Unavailable JOHNSON, ANTONI MARIBEL RPA-C Unavailable Unavailable JOHNSON, ANTONI MARIBEL RPA-C Unavailable Unavailable JOHNSON, ANTONI MARIBEL RPA-C Unavailable Unavailable JOHNSON, ANTONI MARIBEL RPA-C Unavailable Unavailable JOHNSON, ANTONI MARIBEL RPA-C Unavailable Unavailable JOHNSON, ANTONI MARIBEL RPA-C Unavailable Unavailable JOHNSON, ANTONI MARIBEL RPA-C Unavailable Unavailable JOHNSON, ANTONI MARIBEL RPA-C Unavailable Unavailable JOHNSON, ANTONI MARIBEL RPA-C Unavailable Unavailable JOHNSON, ANTONI MARIBEL RPA-C Unavailable Unavailable Maryann GRIGGS MD Unavailable Unavailable Maryann GRIGGS MD Unavailable Unavailable Maryann GRIGGS MD Unavailable Unavailable Maryann GRIGGS MD Unavailable Unavailable Maryann GRIGGS MD Unavailable Unavailable Maryann GRIGGS MD Unavailable Unavailable Maryann GRIGGS MD Unavailable Unavailable Maryann GRIGGS MD Unavailable Unavailable Maryann GRIGGS MD Unavailable Unavailable Maryann GRIGGS MD Unavailable Unavailable Maryann GRIGGS MD Unavailable Unavailable Maryann GRIGGS MD Unavailable Unavailable Maryann GRIGGS MD Unavailable Unavailable Maryann GRIGGS MD Unavailable Unavailable Maryann GRIGGS MD Unavailable Unavailable Maryann GRIGGS MD Unavailable Unavailable Maryann GRIGGS MD Unavailable Unavailable Maryann GRIGGS MD Unavailable Unavailable Maryann GRIGGS MD Unavailable Unavailable Maryann GRIGGS MD Unavailable Unavailable Maryann GRIGGS MD Unavailable Unavailable Maryann GRIGGS MD Unavailable Unavailable Maryann GRIGGS MD Unavailable Unavailable Maryann GRIGGS MD Unavailable Unavailable Maryann GRIGGS MD Unavailable Unavailable Maryann GRIGGS MD Unavailable Unavailable Maryann GRIGGS MD Unavailable Unavailable Maryann GRIGGS MD Unavailable Unavailable Maryann GRIGGS MD Unavailable Unavailable Maryann GRIGGS MD Unavailable Unavailable Maryann GRIGGS MD Unavailable Unavailable Maryann GRIGGS MD Unavailable Unavailable Maryann GRIGGS MD Unavailable Unavailable Maryann GRIGGS MD Unavailable Unavailable Maryann GRIGGS MD Unavailable Unavailable Maryann GRIGGS MD Unavailable Unavailable Maryann GRIGGS MD Unavailable Unavailable Maryann GRIGGS MD Unavailable Unavailable Maryann GRIGGS MD Unavailable Unavailable Maryann GRIGGS MD Unavailable Unavailable Maryann GRIGGS MD Unavailable Unavailable Maryann GRIGGS MD Unavailable Unavailable Maryann GRIGGS MD Unavailable Unavailable Maryann GRIGGS MD Unavailable Unavailable Maryann GRIGGS MD Unavailable Unavailable Maryann GRIGGS MD Unavailable Unavailable Maryann GRIGGS MD Unavailable Unavailable Maryann GRIGGS MD Unavailable Unavailable Maryann GRIGGS MD Unavailable Unavailable Maryann GRIGGS MD Unavailable Unavailable Maryann GRIGGS MD Unavailable Unavailable Maryann GRIGGS MD Unavailable Unavailable Maryann GRIGGS MD Unavailable Unavailable Maryann GRIGGS MD Unavailable Unavailable Maryann GRIGGS MD Unavailable Unavailable Maryann GRIGGS MD Unavailable Unavailable Maryann GRIGGS MD Unavailable Unavailable Maryann GRIGGS MD Unavailable Unavailable Maryann GRIGGS MD Unavailable Unavailable Maryann GRIGGS MD Unavailable Unavailable Maryann GRIGGS MD Unavailable Unavailable Maryann GRIGGS MD Unavailable Unavailable Maryann GRIGGS MD Unavailable Unavailable Maryann GRIGGS MD Unavailable Unavailable Maryann GRIGGS MD Unavailable Unavailable Maryann GRIGGS MD Unavailable Unavailable Maryann GRIGGS MD Unavailable Unavailable Maryann GRIGGS MD Unavailable Unavailable Maryann GRIGGS MD Unavailable Unavailable Maryann GRIGGS MD Unavailable Unavailable Maryann GRIGGS MD Unavailable Unavailable Maryann GRIGGS MD Unavailable Unavailable Maryann GRIGGS MD Unavailable Unavailable Maryann GRIGGS MD Unavailable Unavailable Maryann GRIGGS MD Unavailable Unavailable Maryann GRIGGS MD Unavailable Unavailable Maryann GRIGGS MD Unavailable Unavailable Maryann GRIGGS MD Unavailable Unavailable Maryann GRIGGS MD Unavailable Unavailable Maryann GRIGGS MD Unavailable Unavailable Maryann GRIGGS MD Unavailable Unavailable Maryann GRIGGS MD Unavailable Unavailable Maryann GRIGGS MD Unavailable Unavailable Maryann GRIGGS MD Unavailable Unavailable Maryann GRIGGS MD Unavailable Unavailable Maryann GRIGGS MD Unavailable Unavailable Maryann GRIGGS MD Unavailable Unavailable Maryann GRIGGS MD Unavailable Unavailable Maryann GRIGGS MD Unavailable Unavailable Maryann GRIGGS MD Unavailable Unavailable Maryann GRIGGS MD Unavailable Unavailable Maryann GRIGGS MD Unavailable Unavailable Maryann GRIGGS MD Unavailable Unavailable Maryann GRIGGS MD Unavailable Unavailable KARIME DUFFY MD Unavailable Unavailable KARIME DUFFY MD Unavailable Unavailable KARIME DUFFY MD Unavailable Unavailable KARIME DUFFY MD Unavailable Unavailable KARIME DUFFY MD Unavailable Unavailable PANG, CAITLIN Unavailable Unavailable PANG, CAITLIN Unavailable Unavailable PANG, CAITLIN Unavailable Unavailable PANG, CAITLIN Unavailable Unavailable PANG, CAITLIN Unavailable Unavailable PANG, CAITLIN Unavailable Unavailable PANG, CAITLIN Unavailable Unavailable PANG, CAITLIN Unavailable Unavailable PANG, CAITLIN Unavailable Unavailable PANG, CAITLIN Unavailable Unavailable PANG, CAITLIN Unavailable Unavailable PANG, CAITLIN Unavailable Unavailable PANG, CAITLIN Unavailable Unavailable PANG, CAITLIN Unavailable Unavailable PANG, CAITLIN Unavailable Unavailable PANG, CAITLIN Unavailable Unavailable PANG, CAITLIN Unavailable Unavailable PANG, CAITLIN Unavailable Unavailable PANG, CAITLIN Unavailable Unavailable PANG, CAITLIN Unavailable Unavailable PANG, CAITLIN Unavailable Unavailable PANG, CAITLIN Unavailable Unavailable PANG, CAITLIN Unavailable Unavailable PANG, CAITLIN Unavailable Unavailable PANG, CAITLIN Unavailable Unavailable PANG, CAITLIN Unavailable Unavailable PANG, CAITLIN Unavailable Unavailable [place], Elle CHANCERY CLERK Unavailable Unavailable Nicole, Elle CHANCERY CLERK Unavailable Unavailable [place], Elle CHANCERY CLERK Unavailable Unavailable [place], Elle CHANCERY CLERK Unavailable Unavailable [place], Elle CHANCERY CLERK Unavailable Unavailable Nicole, Elle CHANCERY CLERK Unavailable Unavailable [place], Elle CHANCERY CLERK Unavailable Unavailable [place], Elle CHANCERY CLERK Unavailable Unavailable [place], Elle CHANCERY CLERK Unavailable Unavailable [place], Elle CHANCERY CLERK Unavailable Unavailable [place], Elle CHANCERY CLERK Unavailable Unavailable Nicole, Elle CHANCERY CLERK Unavailable Unavailable Nicole, Elle CHANCERY CLERK Unavailable Unavailable [place], Elle CHANCERY CLERK Unavailable Unavailable [place], Elle CHANCERY CLERK Unavailable Unavailable [place], Elle CHANCERY CLERK Unavailable Unavailable [place], Elle CHANCERY CLERK Unavailable Unavailable Nicole, Elle CHANCERY CLERK Unavailable Unavailable [place], Elle CHANCERY CLERK Unavailable Unavailable [place], Elle CHANCERY CLERK Unavailable Unavailable [place], Elle CHANCERY CLERK Unavailable Unavailable Nicole, Elle CHANCERY CLERK Unavailable Unavailable [place], Elle CHANCERY CLERK Unavailable Unavailable [place], Elle CHANCERY CLERK Unavailable Unavailable [place], Elle CHANCERY CLERK Unavailable Unavailable [place], Elle CHANCERY CLERK Unavailable Unavailable Nicole, Elle CHANCERY CLERK Unavailable Unavailable [place], Elle CHANCERY CLERK Unavailable Unavailable [place], Elle CHANCERY CLERK Unavailable Unavailable [place], Elle CHANCERY CLERK Unavailable Unavailable [place], Elle CHANCERY CLERK Unavailable Unavailable Nicole, Elle CHANCERY CLERK Unavailable Unavailable Nicole, Elle CHANCERY CLERK Unavailable Unavailable Nicole, Elle CHANCERY CLERK Unavailable Unavailable [place], Elle CHANCERY CLERK Unavailable Unavailable Julieta VALLE MD Unavailable Unavailable Julieta VALLE MD Unavailable Unavailable Julieta VALLE MD Unavailable Unavailable Julieta VALLE MD Unavailable Unavailable Julieta VALLE MD Unavailable Unavailable Julieta VALLE MD Unavailable Unavailable Julieta VALLE MD Unavailable Unavailable Julieta VALLE MD Unavailable Unavailable Julieta VALLE MD Unavailable Unavailable Julieta VALLE MD Unavailable Unavailable Julieta VALLE MD Unavailable Unavailable Julieta VALLE MD Unavailable Unavailable Julieta VALLE MD Unavailable Unavailable Julieta VALLE MD Unavailable Unavailable Julieta VALLE MD Unavailable Unavailable Julieta VALLE MD Unavailable Unavailable Julieta VALLE MD Unavailable Unavailable Julieta VALLE MD Unavailable Unavailable Julieta VALLE MD Unavailable Unavailable Julieta VALLE MD Unavailable Unavailable Maryann GRIGGS MD Unavailable Unavailable Maryann GRIGGS MD Unavailable Unavailable Maryann GRIGGS MD Unavailable Unavailable Maryann GRIGGS MD Unavailable Unavailable Maryann GRIGGS MD Unavailable Unavailable Maryann GRIGGS MD Unavailable Unavailable Maryann GRIGGS MD Unavailable Unavailable Maryann GRIGGS MD Unavailable Unavailable Maryann GRIGGS MD Unavailable Unavailable Maryann GRIGGS MD Unavailable Unavailable Maryann GRIGGS MD Unavailable Unavailable Maryann GRIGGS MD Unavailable Unavailable Maryann GRIGGS MD Unavailable Unavailable Maryann GRIGGS MD Unavailable Unavailable Maryann GRIGGS MD Unavailable Unavailable Maryann GRIGGS MD Unavailable Unavailable Maryann GRIGGS MD Unavailable Unavailable Maryann GRIGGS MD Unavailable Unavailable Maryann GRIGGS MD Unavailable Unavailable Maryann GRIGGS MD Unavailable Unavailable Maryann GRIGGS MD Unavailable Unavailable Maryann GRIGGS MD Unavailable Unavailable Maryann GRIGGS MD Unavailable Unavailable Maryann GRIGGS MD Unavailable Unavailable Maryann GRIGGS MD Unavailable Unavailable Maryann GRIGGS MD Unavailable Unavailable Maryann GRIGGS MD Unavailable Unavailable Maryann GRIGGS MD Unavailable Unavailable Maryann GRIGGS MD Unavailable Unavailable Maryann GRIGGS MD Unavailable Unavailable Maryann GRIGGS MD Unavailable Unavailable Maryann GRIGGS MD Unavailable Unavailable Maryann GRIGGS MD Unavailable Unavailable Maryann GRIGGS MD Unavailable Unavailable Maryann GRIGGS MD Unavailable Unavailable Maryann GRIGGS MD Unavailable Unavailable Maryann GRIGGS MD Unavailable Unavailable Maryann RGIGGS MD Unavailable Unavailable Maryann GRIGGS MD Unavailable Unavailable Maryann GRIGGS MD Unavailable Unavailable Maryann GRIGGS MD Unavailable Unavailable Maryann GRIGGS MD Unavailable Unavailable Maryann GRIGGS MD Unavailable Unavailable Maryann GRIGGS MD Unavailable Unavailable Maryann GRIGGS MD Unavailable Unavailable Maryann GRIGGS MD Unavailable Unavailable Maryann GRIGGS MD Unavailable Unavailable Maryann GRIGGS MD Unavailable Unavailable Maryann GRIGGS MD Unavailable Unavailable Maryann GRIGGS MD Unavailable Unavailable Maryann GRIGGS MD Unavailable Unavailable Maryann GRIGGS MD Unavailable Unavailable Maryann GRIGGS MD Unavailable Unavailable Maryann GRIGGS MD Unavailable Unavailable Maryann GRIGGS MD Unavailable Unavailable Maryann GRIGGS MD Unavailable Unavailable Maryann GRIGGS MD Unavailable Unavailable Maryann GRIGGS MD Unavailable Unavailable Maryann GRIGGS MD Unavailable Unavailable Maryann GRIGGS MD Unavailable Unavailable Maryann GRIGGS MD Unavailable Unavailable Maryann GRIGGS MD Unavailable Unavailable Maryann GRIGGS MD Unavailable Unavailable Maryann GRIGGS MD Unavailable Unavailable Maryann GRIGGS MD Unavailable Unavailable Maryann GRIGGS MD Unavailable Unavailable Maryann GRIGGS MD Unavailable Unavailable Maryann GRIGGS MD Unavailable Unavailable Maryann GRIGGS MD Unavailable Unavailable Maryann GRIGGS MD Unavailable Unavailable Maryann GRGIGS MD Unavailable Unavailable Maryann GRIGGS MD Unavailable Unavailable Maryann GRIGGS MD Unavailable Unavailable Maryann GRIGGS MD Unavailable Unavailable Maryann GRIGGS MD Unavailable Unavailable Maryann GRIGGS MD Unavailable Unavailable Maryann GRIGGS MD Unavailable Unavailable Maryann GRIGGS MD Unavailable Unavailable Maryann GRIGGS MD Unavailable Unavailable Maryann GRIGGS MD Unavailable Unavailable Maryann GRIGGS MD Unavailable Unavailable Maryann GRIGGS MD Unavailable Unavailable Maryann GRIGGS MD Unavailable Unavailable Maryann GRIGGS MD Unavailable Unavailable Maryann GRIGGS MD Unavailable Unavailable Maryann GRIGGS MD Unavailable Unavailable Maryann GRIGGS MD Unavailable Unavailable Maryann GRIGGS MD Unavailable Unavailable Maryann GRIGGS MD Unavailable Unavailable Maryann GRIGGS MD Unavailable Unavailable Maryann GRIGGS MD Unavailable Unavailable Maryann GRIGGS MD Unavailable Unavailable Maryann GRIGGS MD Unavailable Unavailable Maryann RGIGGS MD Unavailable Unavailable [facility] Unavailable Unavailable NICOLAS AN Unavailable Unavailable JOHNSON, ANTONI MARIBEL RPA-C Unavailable Unavailable JOHNSON, ANTONI MARIBEL RPA-C Unavailable Unavailable JOHNSON, ANTONI MARIBEL RPA-C Unavailable Unavailable JOHNSON, ANTONI MARIBEL RPA-C Unavailable Unavailable JOHNSON, ANTONI MARIBEL RPA-C Unavailable Unavailable JOHNSON, ANTONI MARIBEL RPA-C Unavailable Unavailable JOHNSON, ANTONI MARIBEL RPA-C Unavailable Unavailable JOHNSON, ANTONI MARIBEL RPA-C Unavailable Unavailable JOHNSON, ANTONI MARIBEL RPA-C Unavailable Unavailable JOHNSON, ANTONI MARIBEL RPA-C Unavailable Unavailable JOHNSON, ANTONI MARIBEL RPA-C Unavailable Unavailable JOHNSON, ANTONI MARIBEL RPA-C Unavailable Unavailable JOHNSON, ANTONI MARIBEL RPA-C Unavailable Unavailable JOHNSON, ANTONI MARIBEL RPA-C Unavailable Unavailable JOHNSON, ANTONI MARIBEL RPA-C Unavailable Unavailable JOHNSON, ANTONI MARIBEL RPA-C Unavailable Unavailable JOHNSON, ANTONI MARIBEL RPA-C Unavailable Unavailable JOHNSON, ANTONI MARIBEL RPA-C Unavailable Unavailable JOHNSON, ANTONI MARIBEL RPA-C Unavailable Unavailable JOHNSON, ANTONI MARIBEL RPA-C Unavailable Unavailable JOHNSON, ANTONI MARIBEL RPA-C Unavailable Unavailable JOHNSON, ANTONI MARIBEL RPA-C Unavailable Unavailable JOHNSON, ANTONI MARIBEL RPA-C Unavailable Unavailable JOHNSON, ANTONI MARIBEL RPA-C Unavailable Unavailable JOHNSON, ANTONI MARIBEL RPA-C Unavailable Unavailable JOHNSON, ANTONI MARIBEL RPA-C Unavailable Unavailable JOHNSON, ANTONI MARIBEL RPA-C Unavailable Unavailable JOHNSON, ANTONI MARIBEL RPA-C Unavailable Unavailable JOHNSON, ANTONI MARIBEL RPA-C Unavailable Unavailable JOHNSON, ANTONI MARIBEL RPA-C Unavailable Unavailable JOHNSON, ANTONI MARIBEL RPA-C Unavailable Unavailable JOHNSON, ANTONI MARIBEL RPA-C Unavailable Unavailable JOHNSON, ANTONI MARIBEL RPA-C Unavailable Unavailable JOHNSON, ANTONI MARIBEL RPA-C Unavailable Unavailable JOHNSON, ANTONI MARIBEL RPA-C Unavailable Unavailable JOHNSON, ANTONI MARIBEL RPA-C Unavailable Unavailable JOHNSON, ANTONI MARIBEL RPA-C Unavailable Unavailable JOHNSON, ANTONI MARIBEL RPA-C Unavailable Unavailable JOHNSON, ANTONI MARIBEL RPA-C Unavailable Unavailable JOHNSON, ANTONI MARIBEL RPA-C Unavailable Unavailable JOHNSON, ANTONI MARIBEL RPA-C Unavailable Unavailable JOHNSON, ANTONI MARIBEL RPA-C Unavailable Unavailable JOHNOSN, ANTONI MARIBEL RPA-C Unavailable Unavailable ELKE VEGAS MD Unavailable Unavailable ELKE VEGAS MD Unavailable Unavailable ELKE VEGAS MD Unavailable Unavailable ELKE VEGAS MD Unavailable Unavailable Maryann ZAMORANO MD Unavailable Unavailable Maryann ZAMORANO MD Unavailable Unavailable Maryann ZAMORANO MD Unavailable Unavailable Maryann ZAMORANO MD Unavailable Unavailable Maryann ZAMORANO MD Unavailable Unavailable Maryann ZAMORANO MD Unavailable Unavailable Maryann ZAMORANO MD Unavailable Unavailable Maryann ZAMORANO MD Unavailable Unavailable Maryann ZAMORANO MD Unavailable Unavailable Maryann ZAMORANO MD Unavailable Unavailable Maryann ZAMORANO MD Unavailable Unavailable Maryann ZAMORANO MD Unavailable Unavailable Maryann ZAMORANO MD Unavailable Unavailable Maryann ZAMORANO MD Unavailable Unavailable Maryann ZAMORANO MD Unavailable Unavailable Maryann ZAMORANO MD Unavailable Unavailable Maryann ZAMORANO MD Unavailable Unavailable Maryann ZAMORANO MD Unavailable Unavailable Maryann ZAMORANO MD Unavailable Unavailable Maryann ZAMORANO MD Unavailable Unavailable Maryann ZAMORANO MD Unavailable Unavailable Maryann ZAMORANO MD Unavailable Unavailable Maryann ZAMORANO MD Unavailable Unavailable Maryann ZAMORANO MD Unavailable Unavailable Maryann ZAMORANO MD Unavailable Unavailable Maryann ZAMORANO MD Unavailable Unavailable Maryann ZAMORANO MD Unavailable Unavailable Maryann ZAMORANO MD Unavailable Unavailable Maryann ZAMORANO MD Unavailable Unavailable Maryann ZAMORANO MD Unavailable Unavailable Maryann ZAMORANO MD Unavailable Unavailable Maryann ZAMORANO MD Unavailable Unavailable Maryann ZAMORANO MD Unavailable Unavailable Maryann ZAMORANO MD Unavailable Unavailable Maryann ZAMORANO MD Unavailable Unavailable Maryann ZAMORANO MD Unavailable Unavailable Maryann ZAMORANO MD Unavailable Unavailable Maryann ZAMORANO MD Unavailable Unavailable Maryann ZAMORANO MD Unavailable Unavailable Maryann ZAMORANO MD Unavailable Unavailable Maryann ZAMORANO MD Unavailable Unavailable Maryann ZAMORANO MD Unavailable Unavailable Maryann ZAMORANO MD Unavailable Unavailable Maryann ZAMORANO MD Unavailable Unavailable Maryann ZAMORANO MD Unavailable Unavailable Maryann ZAMORANO MD Unavailable Unavailable Maryann ZAMORANO MD Unavailable Unavailable Maryann ZAMORANO MD Unavailable Unavailable Maryann ZAMORANO MD Unavailable Unavailable Maryann ZAMORANO MD Unavailable Unavailable Maryann ZAMORANO MD Unavailable Unavailable Maryann ZAMORANO MD Unavailable Unavailable Maryann ZAMORANO MD Unavailable Unavailable Maryann ZAMORANO MD Unavailable Unavailable Maryann ZAMORANO MD Unavailable Unavailable Maryann ZAMORANO MD Unavailable Unavailable Maryann ZAMORANO MD Unavailable Unavailable Maryann ZAMORANO MD Unavailable Unavailable Maryann ZAMORANO MD Unavailable Unavailable Maryann ZAMORANO MD Unavailable Unavailable Maryann ZAMORANO MD Unavailable Unavailable Maryann ZAMORANO MD Unavailable Unavailable Maryann ZAMROANO MD Unavailable Unavailable Maryann ZAMORANO MD Unavailable Unavailable Maryann ZAMORANO MD Unavailable Unavailable Maryann ZAMORANO MD Unavailable Unavailable Maryann ZAMORANO MD Unavailable Unavailable Maryann ZAMORANO MD Unavailable Unavailable Maryann ZAMORANO MD Unavailable Unavailable Maryann ZAMORANO MD Unavailable Unavailable Maryann ZAMORANO MD Unavailable Unavailable Maryann ZAMORANO MD Unavailable Unavailable Maryann ZAMORANO MD Unavailable Unavailable Alicia Martin MD Unavailable Unavailable Alicia Martin MD Unavailable Unavailable Alicia Martin MD Unavailable Unavailable Alicia Martin MD Unavailable Unavailable Alicia Martin MD Unavailable Unavailable Alicia Martin MD Unavailable Unavailable Alicia Martin MD Unavailable Unavailable Alicia Martin MD Unavailable Unavailable Alicia Martin MD Unavailable Unavailable Alicia Martin MD Unavailable Unavailable Ailcia Martin MD Unavailable Unavailable Ailcia Martin MD Unavailable Unavailable Alicia Martin MD Unavailable Unavailable Alicia Martin MD Unavailable Unavailable Alicia Martin MD Unavailable Unavailable Alicia Martin MD Unavailable Unavailable Alicia Martin MD Unavailable Unavailable Alicia Martin MD Unavailable Unavailable Alicia Martin MD Unavailable Unavailable Alicia Martin MD Unavailable Unavailable Alicia Martin MD Unavailable Unavailable Alicia Martin MD Unavailable Unavailable Alicia Martin MD Unavailable Unavailable Alicia Martin MD Unavailable Unavailable Alicia Martin MD Unavailable Unavailable Alicia Martin MD Unavailable Unavailable Alicia Martin MD Unavailable Unavailable Alicia Martin MD Unavailable Unavailable Alicia Martin MD Unavailable Unavailable Alicia Martin MD Unavailable Unavailable Alicia Martin MD Unavailable Unavailable Alicia Martin MD Unavailable Unavailable Alicia Martin MD Unavailable Unavailable Alicia Martin MD Unavailable Unavailable Alicia Martin MD Unavailable Unavailable Alicia Martin MD Unavailable Unavailable Alicia Martin MD Unavailable Unavailable Alicia Martin MD Unavailable Unavailable Alicia Martin MD Unavailable Unavailable Alicia Martin MD Unavailable Unavailable Alicia Martin MD Unavailable Unavailable Alicia Martin MD Unavailable Unavailable Alicia Martin MD Unavailable Unavailable Alicia Martin MD Unavailable Unavailable Alicia Martin MD Unavailable Unavailable Alicia Martin MD Unavailable Unavailable Alicia Martin MD Unavailable Unavailable Alicia Martin MD Unavailable Unavailable Alicia Martin MD Unavailable Unavailable Alicia Martin MD Unavailable Unavailable Alicia Martin MD Unavailable Unavailable Alicia Martin MD Unavailable Unavailable Alicia Martin MD Unavailable Unavailable Alicia Martin MD Unavailable Unavailable Alicia Martin MD Unavailable Unavailable Alicia Martin MD Unavailable Unavailable Alicia Martin MD Unavailable Unavailable Alicia Martin MD Unavailable Unavailable Alicia Martin MD Unavailable Unavailable Alicia Martin MD Unavailable Unavailable Alicia Martin MD Unavailable Unavailable Alicia Martin MD Unavailable Unavailable Alicia Martin MD Unavailable Unavailable Alicia Martin MD Unavailable Unavailable Alicia Martin MD Unavailable Unavailable Alicia Martin MD Unavailable Unavailable Alicia Martin MD Unavailable Unavailable Alicia Martin MD Unavailable Unavailable Alicia Martin MD Unavailable Unavailable Alciia Martin MD Unavailable Unavailable Alicia Martin MD Unavailable Unavailable Alicia Martin MD Unavailable Unavailable Alicia Martin MD Unavailable Unavailable Alicia Martin MD Unavailable Unavailable Alicia Martin MD Unavailable Unavailable Alicia Martin MD Unavailable Unavailable Alicia Martin MD Unavailable Unavailable Alicia Martin MD Unavailable Unavailable Alicia Martin MD Unavailable Unavailable Alciia Martin MD Unavailable Unavailable Alicia Martin MD Unavailable Unavailable Alicia Martin MD Unavailable Unavailable Alicia Martin MD Unavailable Unavailable Ailcia Martin MD Unavailable Unavailable Alicia Martin MD Unavailable Unavailable Alicia Martin MD Unavailable Unavailable Alicia Martin MD Unavailable Unavailable Alicia Martin MD Unavailable Unavailable Alicia Martin MD Unavailable Unavailable Alicia Martin MD Unavailable Unavailable Alicia Martin MD Unavailable Unavailable Alicia Martin MD Unavailable Unavailable Alicia Martin MD Unavailable Unavailable HOUSEL, C ANIL PA-C Unavailable Unavailable HOUSEL, C ANIL PA-C Unavailable Unavailable HOUSEL, C ANIL PA-C Unavailable Unavailable TURRIN, CHAPITO Unavailable Unavailable TURRIN, CHAPITO Unavailable Unavailable TURRIN, CHAPITO Unavailable Unavailable TURRIN, CHAPITO Unavailable Unavailable VanArnam JR, W Zaki PA Unavailable Unavailable VanArnam JR, W Zaki PA Unavailable Unavailable VanArnam JR, W Zaki PA Unavailable Unavailable VanArnam JR, W Zaki PA Unavailable Unavailable VanArnam JR, W Zaki PA Unavailable Unavailable VanArnam JR, W Zaki PA Unavailable Unavailable VanArnam JR, W Zaki PA Unavailable Unavailable VanArnam JR, W Azki PA Unavailable Unavailable VanArnam JR, W Zaki PA Unavailable Unavailable VanArnam JR, W Zaki PA Unavailable Unavailable VanArnam JR, W Zaki PA Unavailable Unavailable VanArnam JR, W Zaki PA Unavailable Unavailable VanArnam JR, W Zaki PA Unavailable Unavailable VanArnam JR, W Zaki PA Unavailable Unavailable VanArnam JR, W Zaki PA Unavailable Unavailable VanArnam JR, W Zaki PA Unavailable Unavailable VanArnam JR, W Zaki PA Unavailable Unavailable VanArnam JR, W Zaki PA Unavailable Unavailable VanArnam JR, W Zaki PA Unavailable Unavailable VanArnam JR, W Zaki PA Unavailable Unavailable VanArnam JR, W Zaki PA Unavailable Unavailable VanArnam JR, W Zaki PA Unavailable Unavailable VanArnam JR, W Zaki PA Unavailable Unavailable VanArnam JR, W Zaki PA Unavailable Unavailable VanArnam JR, W Zaki PA Unavailable Unavailable VanArnam JR, W Zaki PA Unavailable Unavailable VanArnam JR, W Zaki PA Unavailable Unavailable VanArnam JR, W Zaki PA Unavailable Unavailable VanArnam JR, W Zaki PA Unavailable Unavailable VanArnam JR, W Zaki PA Unavailable Unavailable VanArnam JR, W Zaki PA Unavailable Unavailable VanArnam JR, W Zaki PA Unavailable Unavailable VanArnam JR, W Zaki PA Unavailable Unavailable VanArnam JR, W Zaki PA Unavailable Unavailable VanArnam JR, W Zaki PA Unavailable Unavailable VanArnam JR, W Zaki PA Unavailable Unavailable VanArnam JR, W Zaki PA Unavailable Unavailable VanArnam JR, W Zaki PA Unavailable Unavailable VanArnam JR, W Zaki PA Unavailable Unavailable VanArnam JR, W Zaki PA Unavailable Unavailable VanArnam JR, W Zaki PA Unavailable Unavailable VanArnam JR, W Zaki PA Unavailable Unavailable VanArnam JR, W Zaki PA Unavailable Unavailable PANG, CAITLIN Unavailable Unavailable PANG, CAITLIN Unavailable Unavailable PANG, CAITLIN Unavailable Unavailable PANG, CAITLIN Unavailable Unavailable PANG, CAITLIN Unavailable Unavailable PANG, CAITLIN Unavailable Unavailable PANG, CAITLIN Unavailable Unavailable PANG, CAITLIN Unavailable Unavailable PANG, CAITLIN Unavailable Unavailable PANG, CAITLIN Unavailable Unavailable PANG, CAITLIN Unavailable Unavailable PANG, CAITLIN Unavailable Unavailable PANG, CAITLIN Unavailable Unavailable PANG, CAITLIN Unavailable Unavailable PANG, CAITLIN Unavailable Unavailable PANG, CAITLIN Unavailable Unavailable PANG, CAITLIN Unavailable Unavailable PANG, CAITLIN Unavailable Unavailable PANG, CAITLIN Unavailable Unavailable PANG, CAITLIN Unavailable Unavailable PANG, CAITLIN Unavailable Unavailable PANG, CAITLIN Unavailable Unavailable PANG, CAITLIN Unavailable Unavailable PANG, CAITLIN Unavailable Unavailable PANG, CAITLIN Unavailable Unavailable PANG, CAITLIN Unavailable Unavailable PANG, CAITLIN Unavailable Unavailable CHANRonny LOVE MD Unavailable Unavailable CHANRonny LOVE MD Unavailable Unavailable CHANRonny LOVE MD Unavailable Unavailable CHANRonny LOVE MD Unavailable Unavailable CHANRonny LOVE MD Unavailable Unavailable CHANRonny LOVE MD Unavailable Unavailable CHANLIRonny ARITA MD Unavailable Unavailable CHANRonny LOVE MD Unavailable Unavailable CHANLIRonny ARITA MD Unavailable Unavailable CHANRonny LOVE MD Unavailable Unavailable CHANRonny LOVE MD Unavailable Unavailable Re-disclosure Warning The records that you are about to access may contain information from federally-assisted alcohol or drug abuse programs. If such information is present, then the following federally mandated warning applies: This information has been disclosed to you from records protected by federal confidentiality rules (42 CFR part 2). The federal rules prohibit you from making any further disclosure of this information unless further disclosure is expressly permitted by the written consent of the person to whom it pertains or as otherwise permitted by 42 CFR part 2. A general authorization for the release of medical or other information is NOT sufficient for this purpose. The Federal rules restrict any use of the information to criminally investigate or prosecute any alcohol or drug abuse patient.The records that you are about to access may contain highly sensitive health information, the redisclosure of which is protected by Article 27-F of the [facility] Public Health law. If you continue you may have access to information: Regarding HIV / AIDS; Provided by facilities licensed or operated by the [facility] Office of Mental Health; or Provided by the [facility] Office for People With Developmental Disabilities. If such information is present, then the following [facility] mandated warning applies: This information has been disclosed to you from confidential records which are protected by state law. State law prohibits you from making any further disclosure of this information without the specific written consent of the person to whom it pertains, or as otherwise permitted by law. Any unauthorized further disclosure in violation of state law may result in a fine or penitentiary sentence or both. A general authorization for the release of medical or other information is NOT sufficient authorization for further disc losure. Allergies and Adverse Reactions Type Description Substance Reaction Status Data Source(s ) Propensity to adverse reactions METHYLPREDNISOLONE METHYLPREDNISOLONE Other [facility] Drug allergy TORADOL TORADOL RASH; SWELLING [facility] Drug allergy GABAPENTIN GABAPENTIN [facility] Propensity to adverse reactions NO KNOWN ALLERGIES NO KNOWN ALLERGIES [facility] Propensity to adverse reactions KETOROLAC TROMETHAMINE [facility] [place] Propensity to adverse reactions GABAPENTIN GABAPENTIN [facility] Family History Family Member Name Family Member Gender Family Member Status Date o f Status Description Data Source(s) Unknown [facility] () Encounters Encounter Providers Location Date Indications Data Source(s ) Outpatient Attender: Elle LOPEZ 10/21/2020 12:00: 00 AM [facility] Outpatient Attender: Elle Rivera CHANCERY CLERK 10/18/2020 12:00: 00 AM [facility] Outpatient Attender: Elle Rivera CHANCERY CLERK [id number] 12:00:00 AM EDT - [facility] Elleroman CARRASCOPAttender: Juan miranda MD 07/16/2020 12:00:00 AM [facility] Maribel Johnson, RPA-C: [address], [place] [address], Ph. Attender: MARIBEL JOHNSON RPA-C [facility] Medical 07/08/2020 12:00:00 AM EDT [facility] Outpatient Attender: Juan Day MD 07/02/2020 12:00:00 A M [facility] Mario Martin MD: [address], [place] [address], Ph. Attender: Mario Martin MD [facility] Medical 06/16/2020 12:00:00 AM EDT [place] ([facility]) Mario Martin MD: [address], [place] [address], Ph. Attender: Mario Martin MD [facility] Medical 06/16/2020 12:00:00 AM EDT [facility] ([facility]) Outpatient Attender: Juan SCHREIBEReferrer: Mario Vargas 05/31/2020 12:00:00 AM [facility] Outpatient Attender: ELKE VEGAS MD 05/26/2020 12:0 0:00 AM [facility] Outpatient Attender: Juan Day MD [id number] 2020 12:00:00 AM EDT - 04/28/2020 05:19:40 PM EDT Spinal stenosis, site unspecified [facility] Spinal stenosis, site unspecified Emergency Attender: CHAPITO LOVEConsultant: MARIBEL JOHNSON RPA-C 04/19/2020 08:39:00 PM EDT - 04/19/2020 11:30:00 PM EDT [facility] Patient discharged. Outpatient Attender: CAITLIN Monteiroultant: MARIBEL JOHNSON RPA-C 04/16/2020 02:27:00 PM EST - 04/16/2020 03:27:00 PM EST [facility] Caitlin Pang RPA-C: [address], [place] [address], Ph. Attender: CAITLIN PANG [facility] Medical 04/16/2020 12:00:00 AM EST [place] ([facility]) Caitlin Pang RPA-C: [address], [place] [address], Ph. Attender: CAITLIN PANG [facility] Medical 04/16/2020 12:00:00 AM EST [place] ([facility]) Caitlin Pang RPA-C: [address], [place] [address], Ph. Attender: CAITLIN PANG [facility] Medical 04/16/2020 12:00:00 AM EST [place] ([facility]) Caitlin Pang RPA-C: [address], [place] [address], Ph. Attender: CAITLIN PANG [facility] Medical 04/16/2020 12:00:00 AM EST [facility] ([facility]) Outpatient Attender: [facility] 04/09/2020 12:3 5:00 PM EST [facility] Emergency Attender: YOAV VARGAS MDConsultant: DIYAJordan JOHNSON RPA-C 04/09/2020 11:42:00 AM EST - 04/09/2020 03:55:00 PM EST [facility] Patient discharged. Inpatient Attender: Juan Day MDAtt vinnie: KARIME DUFFY MDAdmitter: KARIME DUFFY MDReferrer: KARIME DUFFY MD [id number] 04/09/2020 12:00: 00 AM EST - 04/12/2020 12:00:00 AM EST Cerebral infarction, unspecified [facility] Cerebral infarction, unspecified Patient discharged. Caitlin Pang RPA-C: [address], [place] [address], Ph. Attender: CAITLIN PANG [facility] Medical 03/31/2020 12:00:00 AM EST MARJORIE ([facility]) OSCAR SuarezC: [address], [address], [place] [address], Ph. Attender: CAITLIN PANG [facility] Medical 03/31/2020 12:00:00 AM EST MARJORIE ([facility]) Caitlin Pang RPA-C: [address], [address], [place] [address], Ph. Attender: CAITLIN PANG [facility] Medical 03/31/2020 12:00:00 AM EST MARJORIE ([facility]) Caitlin Pang RPA-C: [address], [address], [place] [address], Ph. Attender: CAITLIN PANG [facility] Medical 03/31/2020 12:00:00 AM EST MARJORIE ([facility]) Caitlin Pang RPA-C: [address], [address], [place] [address], Ph. Attender: CAITLIN PANG [facility] Medical 03/31/2020 12:00:00 AM EST MARJORIE ([facility]) Emergency Attender: CHAPITO Avalossultant: MARIBEL JOHNSON RPA-C 03/29/2020 11:40:00 AM EST - 03/29/2020 02:45:00 PM EST [facility] Patient discharged. [place] [id number] [address] 02/17/2020 12:00:00 AM EST [email or web address] ([facility]) Recurring Patient Referrer: MARIBEL JOHNSON RPA-C 01/16/2020 1 2:45:26 PM EST [facility] Maribel Johnson RPA-C: [address], [place] [address], Ph. Attender: MARIBEL MOOREC [facility] Medical 01/09/2020 12:00:00 AM EST [facility]ORIE ([facility]) Maribel Johnson RPA-C: [address], [place] [address], Ph. Attender: MARIBEL MOOREC [facility] Medical 01/09/2020 12:00:00 AM EST MAR[facility]ORIE ([facility]) Maribel Johnson RPA-C: [address], [place] [address], Ph. Attender: MARIBEL JOHNSON RPA-C [facility] Medical 01/09/2020 12:00:00 AM EST MARJORIE ([facility]) Maribel Johnson RPA-C: [address], [place] [address], Ph. Attender: MARIBEL JOHNSON RPA-C [facility] Medical 01/09/2020 12:00:00 AM EST MAR[facility]ORIE ([facility]) Maribel Johnson RPA-C: [address], [place] [address], Ph. Attender: MARIBEL JOHNSON RPA-C [facility] Medical 01/09/2020 12:00:00 AM EST MARJORIE ([facility]) Maribel Johnson RPA-C: [address], [place] [address], Ph. Attender: MARIBEL JOHNSON RPA-C [facility] Medical 01/09/2020 12:00:00 AM EST MARJORIE ([facility]) Outpatient Attender: SUSAN ZAMORANO MDAt tender: REJI GRIGGS MDAttender: ANIL BASSETTCAttender: DAREN RICHARD MDAttender: NICOLAS SANZttender: NICOLAS AN MDAdmitter: REJI GRIGGS MDReferrer: NICOLAS AN MDConsultant: ANIL BASSETTCConsultant: DAREN RICHARD MD [id number] 01/04/2020 09:17:00 PM EST - 01/06/2020 05:22:00 PM EST [facility] Patient discharged. Emergency Attender: ALMAZ VALLE MDConsultant: MARIBEL JOHNSON RPA-C 01/04/2020 04:23:00 PM EST - 01/04/2020 07:47:00 PM [facility] Patient discharged. Outpatient Attender: MARIBEL MOOREC [facility] 11/17/2019 04:40:02 PM EDT [facility] Outpatient Attender: MARIBEL MOOREC [facility] 11/17/2019 04:40:02 PM EDT [facility] Outpatient Attender: MARIBEL MOOREC [facility] 11/14/2019 03:45:03 PM EDT [facility] Outpatient Attender: REJI SCHREIBEReferrer: MARIBEL TINOCO RPA-C 11/12/2019 01:02:29 PM EDT [facility] Outpatient Attender: MARIBEL JOHNSON RPA-C [facility] 11/10/2019 11:51:02 AM EDT [facility] Outpatient Attender: MARIBEL ALEX RPA-C [facility] 11/05/2019 09:02:03 AM EDT [facility] Recurring Patient Referrer: MARIBEL JOHNSON RPA-C 10/22/2019 0 8:59:55 AM EDT [facility] Recurring Patient Referrer: MARIBEL JOHNSON RPA-C 10/22/2019 0 8:59:06 AM EDT [facility] Outpatient Attender: MARIBEL JOHNSON RPA-C [facility] 10/21/2019 03:59:01 PM EDT [facility] Outpatient Attender: Zaki Saravia JRReferrer: MARIBEL Mendoza RPA-C 07/31/2019 04:25:16 PM EDT [facility] Immunizations Vaccine Date Status Description Data Source(s) New in 2011. IIV4 01/09/2020 08:55:24 AM EST completed .5 mL [facility]JORIE ([facility]) New in 2011. IIV4 01/09/2020 08:55:24 AM EST completed .5 mL MARJORIE ([facility]) New in 2011. IIV4 01/09/2020 08:55:24 AM EST completed .5 mL MARJORIE ([facility]) New in 2011. IIV4 01/09/2020 08:55:24 AM EST completed .5 mL MARJORIE ([facility]) New in 2011. IIV4 01/09/2020 08:55:24 AM EST completed .5 mL [facility]JORIE ([facility]) New in 2011. IIV4 01/09/2020 08:55:24 AM EST completed .5 mL [facility]ORIE ([facility]) Medications Medication Brand Name Start Date Product Form Dose Route Admi nistrative Instructions Pharmacy Instructions Status Indications Reaction Description Data Source(s) 50 mg 10/15/2020 12:00:00 AM EDT capsule 30 TAKE ONE CAPSULE BY MOUTH AT BEDTIME TAKE ONE CAPSULE BY MOUTH AT BEDTIME SOLD: 10/16/2020 [facility] 6 mg 09/30/2020 12:00:00 AM EDT tablet extended release 24hr 7 TAKE ONE TABLET BY MOUTH EVERY DAY TAKE ONE TABLET BY MOUTH EVERY DAY SOLD: 10/16/2020 [facility] 21 mg/24 hr 09/29/2020 12:00:00 AM EDT patch 24 hour 7 APPLY ONE PATCH TO THE SKIN EVERY DAY APPLY ONE PATCH TO THE SKIN EVERY DAY SOLD: 09/29/2020 [facility] 25 mg 09/29/2020 12:00:00 AM EDT capsule 30 TAKE ONE CAPSULE BY MOUTH AT BEDTIME TAKE ONE CAPSULE BY MOUTH AT BEDTIME SOLD: 09/29/2020 [facility] 2 mg 08/03/2020 12:00:00 AM EDT tablet 30 TAKE ONE TABLET BY MOUTH AT BEDTIME TAKE ONE TABLET BY MOUTH AT BEDTIME SOLD: 08/18/2020 [facility] 1 mg 08/03/2020 12:00:00 AM EDT tablet 30 TAKE ONE TABLET BY MOUTH EVERY DAY IN THE MORNING TAKE ONE TABLET BY MOUTH EVERY DAY IN THE MORNING SOLD : 08/18/2020 [facility] 10 mg 07/09/2020 12:00:00 AM EDT tablet 30 TAKE ONE TABLET BY MOUTH EVERY DAY TAKE ONE TABLET BY MOUTH EVERY DAY SOLD: 07/15/2020 [facility] 10 mg 06/16/2020 12:00:00 AM EDT tablet 30 TAKE ONE TABLET BY MOUTH EVERY DAY TAKE ONE TABLET BY MOUTH EVERY DAY SOLD: 06/17/2020 [facility] 37.5 mg 05/27/2020 12:00:00 AM EDT capsule,extended releas e 24hr 14 TAKE ONE CAPSULE BY MOUTH TWICE A DAY FOR MOOD TAKE ONE CAPSULE BY MOUTH TWICE A DAY FO R MOOD SOLD: 06/02/2020 [facility] 0.5 mg 05/25/2020 12:00:00 AM EDT tablet 5 TAKE ONE TABLET BY MOUTH EVERY DAY MAXIMUM DAILY DOSE = 1 TAKE ONE TABLET BY MOUTH EVERY DAY MAXIM UM DAILY DOSE = 1 SOLD: 05/26/2020 [facility] 1 mg 05/24/2020 12:00:00 AM EDT tablet 7 TAKE ONE TABLET BY MOUTH EVERY MORNING TAKE ONE TABLET BY MOUTH EVERY MORNING SOLD: 06/21/2020 [facility] 150 mg 05/24/2020 12:00:00 AM EDT capsule 14 TAKE ONE CAPSULE BY MOUTH TWICE A DAY TAKE ONE CAPSULE BY MOUTH TWICE A DAY SOLD: 06/02/2020 [facility] 1 mg 05/24/2020 12:00:00 AM EDT tablet 7 TAKE ONE TABLET BY MOUTH EVERY MORNING TAKE ONE TABLET BY MOUTH EVERY MORNING SOLD: 05/24/2020 [facility] 1 mg 05/24/2020 12:00:00 AM EDT tablet 7 TAKE ONE TABLET BY MOUTH EVERY MORNING TAKE ONE TABLET BY MOUTH EVERY MORNING SOLD: 06/02/2020 [facility] 2 mg 05/24/2020 12:00:00 AM EDT tablet 7 TAKE ONE TABLET BY MOUTH AT BEDTIME TAKE ONE TABLET BY MOUTH AT BEDTIME SOLD: 05/24/2020 [facility] 150 mg 05/24/2020 12:00:00 AM EDT capsule 14 TAKE ONE CAPSULE BY MOUTH TWICE A DAY TAKE ONE CAPSULE BY MOUTH TWICE A DAY SOLD: 05/24/2020 [facility] 2 mg 05/24/2020 12:00:00 AM EDT tablet 7 TAKE ONE TABLET BY MOUTH AT BEDTIME TAKE ONE TABLET BY MOUTH AT BEDTIME SOLD: 06/02/2020 [facility] 2 mg 05/24/2020 12:00:00 AM EDT tablet 7 TAKE ONE TABLET BY MOUTH AT BEDTIME TAKE ONE TABLET BY MOUTH AT BEDTIME SOLD: 06/21/2020 [facility] 150 mg 05/24/2020 12:00:00 AM EDT capsule 14 TAKE ONE CAPSULE BY MOUTH TWICE A DAY TAKE ONE CAPSULE BY MOUTH TWICE A DAY SOLD: 06/21/2020 [facility] 2 mg 05/20/2020 12:00:00 AM EDT tablet 60 TAKE TWO TABLETS BY MOUTH EVERY DAY TAKE TWO TABLETS BY MOUTH EVERY DAY SOLD: 05/24/2020 [facility] Nortriptyline 50 MG Oral Capsule NORTRIPTYLINE HCL 05/02/2020 12 :00:00 AM EDT capsule 30 TAKE ONE CAPSULE BY MOUTH EVERY MORNING TAKE ONE CAPSULE BY MOUTH EVERY MORNING SOLD: 06/02/2020 [facility] Nortriptyline 50 MG Oral Capsule NORTRIPTYLINE HCL 05/02/2020 12 :00:00 AM EDT capsule 30 TAKE ONE CAPSULE BY MOUTH EVERY MORNING TAKE ONE CAPSULE BY MOUTH EVERY MORNING SOLD: 05/02/2020 [facility] 2 mg 05/02/2020 12:00:00 AM EDT tablet 30 TAKE ONE TABLET BY MOUTH EVERY DAY TAKE ONE TABLET BY MOUTH EVERY DAY SOLD: 05/02/2020 [facility] 2 mg 04/26/2020 12:00:00 AM EDT tablet 10 TAKE ONE TABLET BY MOUTH EVERY DAY AT BEDTIME FOR NAUSEA AND VOMITING TAKE ONE TABLET BY MOUTH EVERY DAY AT BE DTIME FOR NAUSEA AND VOMITING SOLD: 04/28/2020 [facility] 25 mg 04/23/2020 12:00:00 AM EDT capsule 30 TAKE ONE CAPSULE BY MOUTH EVERY MORNING TAKE ONE CAPSULE BY MOUTH EVERY MORNING SOLD: 05/19/2020 [facility] 25 mg 04/23/2020 12:00:00 AM EDT capsule 30 TAKE ONE CAPSULE BY MOUTH EVERY MORNING TAKE ONE CAPSULE BY MOUTH EVERY MORNING SOLD: 04/24/2020 [facility] 50 mg 04/13/2020 12:00:00 AM EST tablet 48 TAKE 12 TABLETS BY MOUTH TWO TIMES A DAY FOR 2 DAYS TAKE 12 TABLETS BY MOUTH TWO TIMES A DAY FOR 2 DAYS SO LD: 04/13/2020 [facility] 24 HR Nicotine 0.875 MG/HR Transdermal P atch Nicotine 21 MG/24HR Transdermal Patch 24 Hour (NICODERM CQ) Nicotine 21 MG/24HR Transdermal Patch 24 Hour (NICODERM CQ) 04/13/2020 12:00:00 AM EST 1 {patch} Transdermal active Place 1 patch onto the skin daily [facility] pantoprazole 40 MG Delayed Release Oral Tablet Pantoprazole Sodium 40 MG Oral Tablet Delayed Release (PROTONIX) Pantoprazole Sodium 40 MG Oral Tablet De layed Release (PROTONIX) 04/13/2020 12:00:00 AM EST 40 mg Oral active Take 1 tablet by mouth daily [facility] Cholecalciferol 1000 UNT Oral Tablet Vit leal D3 25 MCG (1000 UT) Oral Tablet (CHOLECALCIFEROL) Vitamin D3 25 MCG (1000 UT) Oral Tablet (CHOLECALCIFER OL) 04/13/2020 12:00:00 AM EST 1000 U Oral active Take 1 tablet by mouth daily [facility] Melatonin 5 MG Oral Tablet melatonin tablet 5 mg melatonin t ablet 5 mg 04/12/2020 10:00:00 PM EST 5 mg Oral active 5 mg, Oral, Nightly, First dose on Sun04/12/20 at 2200, For 30 days [facility] Medication administered onsite Nortriptyline 10 MG Oral Capsule nortriptyline (PAMELO R) capsule 10 mg nortriptyline (PAMELOR) capsule 10 mg 04/12/2020 10:30:00 AM EST 10 m g Oral active 10 mg, Oral, Nightly, First dose on Sun04/12/20 at 1030, For 30 days [facility] Medication administered onsite Cholecalciferol 1000 UNT Oral Tablet vit leal D3 (CHOLECALCIFEROL) tablet 1,000 Units vitamin D3 (CHOLECALCIFEROL) tablet 1,000 Units 2020 10:15:00 AM EST 1000 U Oral active 1,000 Un its, Oral, Daily Standard, First dose on Sun04/12/20 at 1015, For 30 days
25 mcg vitamin D3 = 1,000 international units vitamin D3.
[facility] Medication administered onsite Baclofen 10 MG Oral Tablet baclofen (LIORESAL) tablet 10 mg baclofen (LIORESAL) tablet 10 mg 04/12/2020 10:15:00 AM EST 10 mg Oral activ e 10 mg, Oral, Three Times Daily Standard, First dose on Sun04/12/20 at 1015, For 30 days [facility] Medication administered onsite Prednisone 20 MG Oral Tablet predniSONE 20 MG Oral Tab let (DELTASONE) predniSONE 20 MG Oral Tablet (DELTASONE) 04/12/2020 12:00:00 AM EST 600 mg Ora l aborted Take 30 tablets by mouth Two Jim es Daily for 2 days [facility] Melatonin 5 MG Oral Tablet Melatonin 5 MG Oral Tablet 2020 12:00:00 AM EST 5 mg Oral active Take 1 tablet by mouth nightly [facility] Nortriptyline 10 MG Oral Capsule Nortriptyline HCl 10 MG Oral Capsule (PAMELOR) Nortriptyline HCl 10 MG Oral Capsule (PAMELOR) 04/12/2020 12:00:00 AM EST 10 mg Oral active Take 1 capsule by mouth nightly [facility] Baclofen 10 MG Oral Tablet Baclofen 10 MG Oral Tablet (LIORESAL) Baclofen 10 MG Oral Tablet (LIORESAL) 04/12/2020 12:00:00 AM EST 10 mg Oral active Take 1 tablet by mouth Three times daily [facility] Prednisone 50 MG Oral Tablet predniSONE 50 MG Oral Tab let (DELTASONE) predniSONE 50 MG Oral Tablet (DELTASONE) 04/12/2020 12:00:00 AM EST 600 mg Ora l active Take 12 tablets by mouth Two Jim es Daily for 2 days [facility] Prednisone 50 MG Oral Tablet predniSONE 50 MG Oral Tab let (DELTASONE) predniSONE 50 MG Oral Tablet (DELTASONE) 04/12/2020 12:00:00 AM EST 600 mg Ora l aborted Take 12 tablets by mouth Two Jim es Daily for 2 days [facility] Acetaminophen 325 MG / Hydrocodone Steve trate 5 MG Oral Tablet HYDROcodone- acetaminophen (LORTAB) 5-325 MG per tablet 1 tablet HYDROcodone-acetaminophen (LORTAB) 5-325 MG per tablet 1 tablet 04/11/2020 10:30:00 PM EST 1 {tbl} Oral completed 1 tablet, Oral, Once, 04/11/20 at 2230, For 1 dose
Maximum daily dose of acetaminophen is 3,000 mg from all sources in 24 hours.
[facility] Medication administered onsite fentaNYL (SUBLIMAZE) (PF) injection 25 mcg [id number] 04/11/2020 04:30:00 PM EST 25 ug Intravenous completed 25 mcg, Intravenous, Once, 04/11/20 at 1630, For 1 dose [facility] Medication administered onsite 24 HR Nicotine 0.875 MG/HR Transdermal P atch nicotine (NICODERM CQ) 21 MG/24HR 1 patch nicotine (NICODERM CQ) 21 MG/24HR 1 patch 04/11/2020 11:15:00 AM EST 1 {patch} Transdermal active 1 patch, Transdermal, Administer over 24 Hours, Daily Standard, First dose on 04/11/20 at 1115, For 30 days [facility] Medication administered onsite Alprazolam 0.25 MG Oral Tablet alprazolam (XANAX) tabl et 0.5 mg alprazolam (XANAX) tablet 0.5 mg 04/11/2020 11:15:00 AM EST 0.5 mg Oral active 0.5 mg, Oral, Three Times Daily-PRN, Anxiety, Starting 04/11/20 at 1115, For 48 hours [facility] Medication administered onsite pantoprazole 40 MG Delayed Release Oral Tablet pantoprazole (PROTONIX) EC tablet 40 mg pantoprazole (PROTONIX) EC tablet 40 mg 04/11/2020 09:00:[address] 40 mg Oral active 40 mg, Ora l, Daily Standard, First dose on 04/11/20 at 0900, For 30 days
Do not crush or chew
[facility] Medication administered onsite Melatonin 5 MG Oral Tablet melatonin tablet 5 mg melatonin t ablet 5 mg 04/10/2020 07:30:00 PM EST 5 mg Oral completed 5 mg, Oral, Once, 04/10/20 at 1930, For 1 dose [facility] Medication administered onsite Acetaminophen 325 MG / Hydrocodone Steve trate 5 MG Oral Tablet HYDROcodone- acetaminophen (LORTAB) 5-325 MG per tablet 1 tablet HYDROcodone-acetaminophen (LORTAB) 5-325 MG per tablet 1 tablet 04/10/2020 03:45:00 PM EST 1 {tbl} Oral aborted 1 tablet, Oral, Every 4 hours PRN, Moderate Pain (Pain Scale Score 4-6), Starting 04/10/20 at 1545, For 72 hours
Maximum daily dose of acetaminophen is 3,000 mg from all sources in 24 hours.
[facility] Medication administered onsite methylPREDNISolone sodium succinate (DAVID U-MEDROL) 1,000 mg in sodium chloride 0.9 % 100 mL IVPB 04/10/2020 03:30:00 PM EST 1000 mg Intravenous active 1,000 mg, Intravenous, at 10 0 mL/hr, Daily Standard, First dose on 04/10/20 at 1530, For 5 days [facility] Medication administered onsite gadobutrol (GADAVIST) contrast injection 9 mL [id number] 01:15:00 PM EST 0.1 mL/kg Intravenous completed 9 mL (ro unded from 9.43 mL = 0.1 mL/kg 94.3 kg Order-specific weight), Intravenous, 1 TIME IMAGING, 04/10/20 at 1315, For 1 dose
Do not mix or administer in the same IV line with other medi cations.
[facility] Medication administered onsite atorvastatin 40 MG Oral Tablet atorvastatin (LIPITOR) tablet 80 mg atorvastatin (LIPITOR) tablet 80 mg 04/10/2020 09:00:00 AM EST 80 mg Oral aborted 80 mg, Oral, Daily Standard, First dose on 04/10/20 at 0900, For 30 days [facility] Medication administered onsite 0.4 ML Enoxaparin sodium 100 MG/ML Prefi lled Syringe enoxaparin sodium (LOVENOX) injection 40 mg enoxaparin sodium (LOVENOX) injection 40 mg 04/10/2020 09:00:00 AM EST 40 mg Subcutaneous active 40 mg, Subcutaneous, Daily Standard, First dose on 04/10/20 at 0900, For 30 days
Non Patients: body weight < 150 kg, CrCl > 30 mL/min. Guidelines for Lovenox: MUST wait 24 hours before starting Enoxaparin if patient has epidural catheter. D/C Enoxaparin 10-12 hours prior to removing epidural catheter.
[facility] Medication administered onsite lidocaine (LIDODERM) 5 % patch 1 patch [id number] 09:00:00 AM EST 1 {patch} Transdermal active 1 patch, T ransdermal, Daily Standard, First dose on 04/10/20 at 0900, For 30 days
Apply to area of pain per patient request 12 hours on - 12 hours off
[facility] Medication administered onsite clopidogrel 75 MG Oral Tablet clopidogrel (PLAVIX) tab let 75 mg clopidogrel (PLAVIX) tablet 75 mg 04/10/2020 09:00:00 AM EST 75 mg Oral aborted 75 mg, Oral, Daily Standard, First dose on 04/10/20 at 0900, For 30 days [facility] Medication administered onsite Lisinopril 10 MG Oral Tablet lisinopril (ZESTRIL) tabl et 10 mg lisinopril (ZESTRIL) tablet 10 mg 04/10/2020 09:00:00 AM EST 10 mg Oral active 10 mg, Oral, Daily Standard, First dose on 04/10/20 at 0900, For 30 days
Check vital signs before administering
[facility] Medication administered onsite Alprazolam 0.25 MG Oral Tablet alprazolam (XANAX) tabl et 0.25 mg alprazolam (XANAX) tablet 0.25 mg 04/10/2020 08:52:50 AM EST 0.25 mg Oral aborted 0.25 mg, Oral, Daily PRN, Anxiety, Starting 04/10/20 at 0852, For 120 hours [facility] Medication administered onsite Acetaminophen 325 MG / Hydrocodone Steve trate 5 MG Oral Tablet HYDROcodone- acetaminophen (LORTAB) 5-325 MG per tablet 1 tablet HYDROcodone-acetaminophen (LORTAB) 5-325 MG per tablet 1 tablet 04/10/2020 08:48:31 AM EST 1 {tbl} Oral aborted 1 tablet, Oral, Every 6 hours PRN, Moderate Pain (Pain Scale Score 4-6), Starting 04/10/20 at 0848, For 3 days
Maximum daily dose of acetaminophen is 3,000 mg from all sources in 24 hours.
[facility] Medication administered onsite 24 HR venlafaxine 37.5 MG Extended Relea se Oral Capsule venlafaxine (EFFEXOR-XR) 24 hr capsule 37.5 mg venlafaxine (EFFEXOR-XR) 24 hr capsule 37.5 mg 08:00:00 AM EST 37.5 mg Oral active 37.5 mg, Oral, Daily with Breakfast, First dose on 04/10/20 at 0800, For 30 days
Do not crush or chew
[facility] Medication administered onsite Methocarbamol 500 MG Oral Tablet methocarbamol (ROBAXI N) tablet 750 mg methocarbamol (ROBAXIN) tablet 750 mg 04/09/2020 09:15:00 PM EST 75 0 mg Oral aborted 750 mg, Oral, 2 Times Daily, First dose (after last reorder) on Sun04/09/20 at 2115, For 30 days [facility] Medication administered onsite 1 ML Lorazepam 2 MG/ML Injection LORazepam (ATIVAN) in jection 1 mg LORazepam (ATIVAN) injection 1 mg 04/09/2020 09:02:54 PM EST 1 mg Intraveno us aborted 1 mg, Intravenous, O nce PRN, Other, prior to MRI for claustrophobia, Starting Sun04/09/20 at 2102, For 2 days [facility] Medication administered onsite Cyclobenzaprine hydrochloride 10 MG Oral Tablet cyclobenzaprine (FLEXERIL) tablet 10 mg cyclobenzaprine (FLEXERIL) tablet 10 mg 04/09/2020 09:00:00 PM EST 10 mg Oral aborted 10 mg, Oral, 2 T imes Daily, First dose on Sun04/09/20 at 2100, For 30 days [facility] Medication administered onsite Acetaminophen 325 MG Oral Tablet acetaminophen (TYLENO L) tablet 650 mg acetaminophen (TYLENOL) tablet 650 mg 04/09/2020 08:21:45 PM EST 65 0 mg Oral active 650 mg, Oral, E very 6 hours PRN, All Levels of Pain (Pain Scale Score 1-10), Headaches, Starting Sun04/09/20 at 2020, For 30 days
Maximum daily dose of acetaminophen is 3,000 mg from all sources in 24 hours.
[facility] Medication administered onsite 37.5 mg 03/30/2020 12:00:00 AM EST capsule,extended releas e 24hr 30 TAKE ONE CAPSULE BY MOUTH EVERY MORNING TAKE ONE CAPSULE BY MOUTH EVERY MORNING SOLD: 05/16/2020 [facility] 37.5 mg 03/30/2020 12:00:00 AM EST capsule,extended releas e 24hr 30 TAKE ONE CAPSULE BY MOUTH EVERY MORNING TAKE ONE CAPSULE BY MOUTH EVERY MORNING SOLD: 04/01/2020 [facility] 500 mg 01/23/2020 12:00:00 AM EST tablet 60 TAKE TWO TABLETS BY MOUTH EVERY 6 HOURS NEEDED FOR PAIN TAKE TWO TABLETS BY MOUTH EVERY 6 HOURS NEEDED FOR PAIN SOLD: 01/24/2020 [facility] 100 mg 01/23/2020 12:00:00 AM EST capsule 60 TAKE ONE CAPSULE BY MOUTH TWICE A DAY STOP TAKING IF YOU DEVELOPE LOOSE STOOLS TAKE ONE CAPSULE BY MOUTH TWICE A DAY STOP TAKING IF YOU DEVELOPE LOOSE STOOLS SOLD: 01/24/2020 [facility] 5 mg 01/23/2020 12:00:00 AM EST tablet 30 TAKE ONE TABLET BY MOUTH THREE TIMES A DAY TAKE ONE TABLET BY MOUTH THREE TIMES A DAY SOLD: 01/24/2020 [facility] 4 mg 01/23/2020 12:00:00 AM EST tablet 21 TAKE ONE TABLET BY MOUTH EVERY 6 TO 8 HOURS NEEDED FOR NAUSEA /VOMITING TAKE ONE TABLET BY MOUTH EVERY 6 TO 8 HOURS NEEDED FOR NAUSEA /VOMITING SOLD: 01/24/2020 [facility] 50 mg 01/14/2020 12:00:00 AM EST tablet 14 TAKE ONE TABLET BY MOUTH TWICE A DAY MAXIMUM DAILY DOSE = 2 TABLETS TAKE ONE TABLET BY MOUTH TWICE A DAY MAX IMUM DAILY DOSE = 2 TABLETS SOLD: 01/15/2020 [facility] 10 mg 01/09/2020 12:00:00 AM EST tablet 90 TAKE ONE TABLET BY MOUTH EVERY DAY TAKE ONE TABLET BY MOUTH EVERY DAY SOLD: 01/15/2020 [facility] Bisacodyl 10 MG Rectal Suppository bisacodyl (DULCOLAX ) suppository 10 mg bisacodyl (DULCOLAX) suppository 10 mg 01/07/2020 07:00:00 PM EST 10 mg Rectal active 10 mg, Rectal, Once, Sun01/07/20 at 1900, For 1 dose
Post-op day #2 Hold for
[facility] Medication administered onsite 4 mg 01/07/2020 12:00:00 AM EST tablets,dose pack 21 TAKE BY MOUTH FOLLOWING PACKAGE INSTRUCTIONS TAKE BY MOUTH FOLLOWING PACKAGE INSTRUCTIONS SOLD: 01/15/2020 [facility] POLYETHYLENE GLYCOL 3350 142 MG/ML Oral Solution polyethylene glycol (GLYCOLAX) packet 17 g polyethylene glycol (GLYCOLAX) packet 17 g 01/06/2020 09:00:00 AM EST 17 g Oral active 17 g, Or al, Daily, First dose on Sun01/06/20 at 0900, Post-op
Start POD #1
[facility] Medication administered onsite Oxycodone Hydrochloride 5 MG Oral Tablet oxyCODONE (ROXICODONE) 5 MG immediate release tablet oxyCODONE (ROXICODONE) 5 MG immediate release tablet 1 03/08/2019 12:00:00 AM EST 2.5 mg Oral active Take 0.5 tablets (2.5 mg total) by mouth every 6 (six) hours as needed Max Daily Amount: 10 mg [facility] methylPREDNISolone (MEDROL, ROSALIO,) 4 MG tablet [id number] 01/06/2020 12:00:00 AM EST 4 mg Oral active Take 1 t ablet (4 mg total) by mouth daily follow package directions [facility] Bisacodyl 10 MG Rectal Suppository bisacodyl (DULCOLAX ) suppository 10 mg bisacodyl (DULCOLAX) suppository 10 mg 01/06/2020 12:00:00 AM EST 10 mg Rectal active 10 mg, Rectal, Daily PRN, constipation, for constipation unrelieved by miralax/MOM, Starting Sun01/06/20 at 0000, For 4 days, Post- op
For post-op day #1, #3, and #4 Hold for BM
[facility] Medication administered onsite Magnesium Hydroxide 80 MG/ML Oral Suspen maxim magnesium hydroxide (MILK OF MAGNESIA) 400 MG/5ML suspension 30 mL magnesium hydroxide (MILK OF MAGNESIA) 4 00 MG/5ML suspension 30 mL 01/06/2020 12:00:00 AM EST 30 mL Oral active 30 mL, Oral, Daily PRN, constipation, Starting Sun01/06/20 at 0000, Post- op
Start Post-op day #1. Hold for BM
[facility] Medication administered onsite 5 mg 01/06/2020 12:00:00 AM EST tablet 15 TAKE 1/2 TABLET (2.5MG) BY MOUTH EVERY 6 HOURS NEEDED - MAXIMUM DAILY DOSE = 2 TABLETS TAKE 1/2 TABLET (2.5MG) BY MOUTH EVERY 6 HOURS NEEDED - MAXIMUM DAILY DOSE = 2 TABLETS SOLD: 01/06/2020 [facility] 1 ML Lorazepam 2 MG/ML Injection LORazepam (ATIVAN) in jection 0.5 mg LORazepam (ATIVAN) injection 0.5 mg 01/05/2020 06:00:00 PM EST 0.5 mg Intrave nous completed 0.5 mg, Intravenous, Once, 01/05/20 at 1800, For 1 dose
immediately prior to intravenous use, lorazepam injection must be diluted with an equal volume of sodium chloride 0.9%
[facility] Medication administered onsite Gadoterate Meglumine SOLN 10 mmol [id number] 01/05/2020 05:30:[address] 20 mL Intravenous completed 10 mmol (20 m L), Intravenous, Once, Sun01/05/20 at 1900, For 1 dose [facility] Medication administered onsite Lisinopril 10 MG Oral Tablet lisinopril (PRINIVIL,ZEST RIL) tablet 10 mg lisinopril (PRINIVIL,ZESTRIL) tablet 10 mg 01/05/2020 09:00:00 AM EST 10 mg Oral active 10 mg, Oral, Daily, First dose on Sun01/05/20 at 0900 [facility] Medication administered onsite DAILY REYMUNDO (THERAGRAN) 1 tablet [id number] 01/05/2020 09:00:00 AM EST 1 {tbl} Oral active 1 tablet, Oral, Daily, First dose on Sun01/05/20 at 0900, Post-op [facility] Medication administered onsite Acetaminophen 500 MG Oral Tablet acetaminophen (TYLENO L) tablet 1,000 mg acetaminophen (TYLENOL) tablet 1,000 mg 01/05/2020 02:10:00 AM EST 1000 mg Oral active 1,000 mg, Oral , Every 6 hours (scheduled), First dose on Sun01/05/20 at 0210, Post-op [facility] Medication administered onsite Docusate Sodium 50 MG / sennosides, MCC 8.6 MG Oral Tablet senna-docusate (PERICOLACE) 8.6-50 MG 2 tablet senna-docusate (PERICOLACE) 8.6-50 MG 2 tablet 01/05/2020 02:10:00 AM EST 2 {tbl} Oral active 2 tablet, Oral, Nightly, First dose on Sun01/05/20 at 0210, Post-op
hold for loose stools
[facility] Medication administered onsite fentaNYL Citrate (PF) (SUBLIMAZE) injection 25 mcg [id number] 01/05/2020 01:54:09 AM EST 25 ug Intravenous active 25 mcg, Intravenous, Every 3 hours PRN, for severe breakthrough pain (7-10) if oral opioid ineffective, Starting Sun01/05/20 at 0154, For 7 days, Post-op [facility] Medication administered onsite Methocarbamol 500 MG Oral Tablet methocarbamol (ROBAXI N) tablet 500 mg methocarbamol (ROBAXIN) tablet 500 mg 01/05/2020 01:54:09 AM EST 50 0 mg Oral active 500 mg, Oral, 4 times daily PRN, muscle spasms, Starting Sun01/05/20 at 0154, Post-op [facility] Medication administered onsite Oxycodone Hydrochloride 5 MG Oral Tablet oxyCODONE (ROXICODONE) immediate release tablet 2.5 mg oxyCODONE (ROXICODONE) immediate release tablet 2.5 mg 01/05/2020 01:54:09 AM EST 2.5 mg Oral active 2.5 mg, Oral, Every 4 hours PRN, moderate pain (4-6), Starting Sun01/05/20 at 0154, For 7 days, Post-op [facility] Medication administered onsite Oxycodone Hydrochloride 5 MG Oral Tablet oxyCODONE (ROXICODONE) immediate release tablet 5 mg oxyCODONE (ROXICODONE) immediate release tablet 5 mg 01/05/2020 01:54:09 AM EST 5 mg Oral active 5 mg, Oral, Every 4 hours PRN, severe pain (7-10), Starting Sun01/05/20 at 0154, For 7 days, Post-op [facility] Medication administered onsite Mineral Oil 1000 MG/ML Enema mineral oil enema 1 enema mineral oil enema 1 enema 01/05/2020 01:54:09 AM EST 1 {enema} Rectal active 1 enema, Rectal, Daily PRN, constipation, if unrelieved by dulcolax, Starting Sun01/05/20 at 0154, Post-op
hold for loose stools
[facility] Medication administered onsite Ondansetron 4 MG Disintegrating Oral Tab let ondansetron (ZOFRAN-ODT) disintegrating tablet 4 mg ondansetron (ZOFRAN-ODT) disintegrating tablet 4 mg 01/05/2020 01:54:09 AM EST 4 mg Oral active 4 mg, Oral, Every 4 hours PRN, nausea, vomiting, Starting Sun01/05/20 at 0154, Post-op [facility] Medication administered onsite ondansetron (ZOFRAN) injection 4 mg [id number] 01/05/2020 01:54:0 9 AM EST 4 mg Intravenous active 4 mg, In travenous, Every 4 hours PRN, nausea, vomiting, Starting Sun01/05/20 at 0154, Post-op
If unable to take PO
[facility] Medication administered onsite sodium chloride 0.9% (NS) infusion [id number] 01/05/2020 01:20:00 A M EST Intravenous completed at 100 mL/hr, Intravenous, Continuous, Starting Sun01/05/20 at 0120, For 12 hours [facility] Medication administered onsite normal saline flush 0.9 % injection 3 mL [id number] 01/05/2020 01:20:00 AM EST 3 mL Intravenous active 3 mL , Intravenous, Every 8 hours (scheduled), First dose on Sun01/05/20 at 0120
flush per protocol, D/C Main IV fluid if appropriate
[facility] Medication administered onsite Morphine Sulfate (PF) injection 4 mg [id number] 01/04/2020 10:20: 00 PM EST 4 mg Intravenous completed 4 mg, In travenous, Once, 01/04/20 at 2220, For 1 dose [facility] Medication administered onsite 10 mg 11/21/2019 12:00:00 AM EDT tablet 14 TAKE ONE TABLET BY MOUTH EVERY 12 HOURS NEEDED FOR POST OP PAIN MAXIMUM DAILY DOSE = 2 TAKE ONE TABLET BY MOUTH EVERY 12 HOURS NEEDED FOR POST OP PAIN MAXIMUM DAILY DOSE = 2 SOLD: 11/21/2019 [facility] 10 mg 11/14/2019 12:00:00 AM EDT tablet 28 TAKE ONE TABLET BY MOUTH EVERY 6 HOURS NEEDED FOR POSTOP PAIN - MAXIMUM DAILY DOSE = 4 TAKE ONE TABLET BY MOUTH EVERY 6 HOURS NEEDED FOR POSTOP PAIN - MAXIMUM DAILY DOSE = 4 SOLD: 11/14/2019 [facility] 10 mg 11/07/2019 12:00:00 AM EDT tablet 42 TAKE ONE TABLET BY MOUTH EVERY 4 HOURS NEEDED FOR POSTOP PAIN MAXIMUM DAILY DOSE = 6 TABLETS TAKE ONE TABLET BY MOUTH EVERY 4 HOURS NEEDED FOR POSTOP PAIN MAXIMUM DAILY DOSE = 6 TABLETS SOLD: 11/07/2019 [facility] 10 mg 10/31/2019 12:00:00 AM EDT tablet 56 TAKE ONE TO TWO TABLETS BY MOUTH EVERY 4 HOURS NEEDED MAXIMUM DAILY DOSE = 8 TAKE ONE TO TWO TABLETS BY MOUTH EVERY 4 HOURS NEEDED MAXIMUM DAILY DOSE = 8 SOLD: 11/05/2019 [facility] 10 mg 10/24/2019 12:00:00 AM EDT tablet 56 TAKE ONE TO TWO TABLETS BY MOUTH EVERY 4 HOURS NEEDED - MAXIMUM DAILY DOSE = 8 TAKE ONE TO TWO TABLETS BY MOUTH EVERY 4 HOURS NEEDED - MAXIMUM DAILY DOSE = 8 SOLD: 10/24/2019 [facility] 30 mg 10/21/2019 12:00:00 AM EDT tablet,oral only,ext.re l.12 hr 7 TAKE ONE TABLET BY MOUTH EVERY DAY MAXIMUM DAILY DOSE = 1 TABLET TAKE ONE TABLET BY MOUTH EVERY DAY MAXIMUM DAILY DOSE = 1 TABLET SOLD: 10/21/2019 [facility] Oxycodone Hydrochloride 10 MG Oral Table t oxycodone 10 mg tablet TAKE ONE TABLET BY MOUTH EVERY 12 HOURS NEEDED FOR POST OP PAIN MAXIMUM DAILY DOSE 2 oxycodone 10 mg tablet TAKE ONE TABLET BY MOUTH EVERY 12 HOURS NEEDED FOR POST OP PAIN MAXIMUM DAILY DOSE 2 co mpleted oxycodone hydrochloride 10 MG Oral Tablet [facility] ([facility]) albuterol sulfate HFA 90 mcg/actuation a erosol inhaler INHALE 4 PUFFS EVERY 4 TO 6 HOURS NEEDED FOR WHEEZING [id number] comple zakiya [id number] 200 ACTUAT albuterol 0.09 MG/ACTUAT Metered Dose Inhaler [place] ([facility]) methylprednisolone 4 mg tablets in a dos e pack TAKE BY MOUTH FOLLOWING PACKAGE INSTRUCTIONS [id number] completed me thylprednisolone 4 mg tablets in a dose pack [facility] ([facility]) Methocarbamol 750 MG Oral Tablet methoca rbamol 750 mg tablet TAKE 2 TABLETS BY MOUTH TWICE A DAY NEEDED methocarbamol 750 mg tablet TAKE 2 TABLE TS BY MOUTH TWICE A DAY NEEDED completed methocarbamol 750 MG Oral Tablet [facility] ([facility]) Ondansetron 8 MG Disintegrating Oral Tab let ondansetron [address] ONE TABLET UNDER THE TONGUE THREE TIMES A DAY ondansetron [address] ONE TABLET UNDER THE TONGUE THREE TIMES A DAY completed ondansetron 8 MG Dis integrating Oral Tablet [place] ([facility]) Haloperidol 2 MG Oral Tablet haloperidol 2 mg tablet TAKE TWO TABLETS BY MOUTH EVERY DAY haloperidol 2 mg tablet TAKE TWO TABLETS BY MOUTH EVERY DAY completed haloperidol 2 MG Oral Tablet [place] ([facility]) Ketorolac Tromethamine 10 MG Oral Tablet ketorolac 10 mg tablet TAKE ONE TABLET BY MOUTH FOUR TIMES A DAY ketorolac 10 mg tablet TAKE ONE TABLET B Y MOUTH FOUR TIMES A DAY completed ketorolac tromethamine 10 MG Oral Tablet [place] ([facility]) vitamin d3 25 mcg (1000 ut) tabs completed vitamin d3 25 mcg (1000 ut) tabs [place] ([facility]) Baclofen 5 MG Oral Tablet baclofen 5 mg tablet baclofen 5 mg tablet completed baclofen 5 MG Oral Tablet [place] ([facility]) Cyclobenzaprine hydrochloride 10 MG Oral Tablet cyclob enzaprine 10 mg tablet cyclobenzaprine 10 mg tablet completed cyclobenzaprine hydrochloride 10 MG Oral Tablet [place] ([facility]) gabapentin 100 MG Oral Capsule gabapenti n 100 mg capsule TAKE ONE CAPSULE BY MOUTH THREE TIMES A DAY gabapentin 100 mg capsule TAKE ONE CAPSU LE BY MOUTH THREE TIMES A DAY completed prisca pentin 100 MG Oral Capsule [place] ([facility]) Oxycodone Hydrochloride 5 MG Oral Tablet oxycodone 5 mg tablet TAKE 1/2 TABLET 2.5MG BY MOUTH EVERY 6 HOURS NEEDED MAXIMUM DAILY DOSE 2 TABLETS oxycodone 5 mg tablet TAKE 1/2 TABLET 2.5MG BY MOUTH EVERY 6 HOURS NEEDED MAXIMUM DAILY DOSE 2 TABLETS complet ed oxycodone hydrochloride 5 MG Oral Tablet [place] ([facility]) Magnesium Hydroxide 80 MG/ML Oral Suspen maxim Milk of Magnesia 400 mg/5 mL oral suspension TAKE 30 MLS BY MOUTH ONCE DAILY NEEDED FOR CONSTIPATION Milk of Magnesia 400 mg/5 mL oral suspension TAKE 30 MLS BY MOUTH ONCE DAILY NEEDED FOR CONSTIPATION completed magnesium hydroxide 80 MG/ML Oral Suspension [place] ([facility]) Methocarbamol 750 MG Oral Tablet methoca rbamol 750 mg tablet TAKE 2 TABLETS BY MOUTH TWICE A DAY NEEDED methocarbamol 750 mg tablet TAKE 2 TABLE TS BY MOUTH TWICE A DAY NEEDED completed methocarbamol 750 MG Oral Tablet [place] ([facility]) tramadol hydrochloride 50 MG Oral Tablet tramadol 50 mg tablet TAKE ONE TABLET BY MOUTH TWICE A DAY MAXIMUM DAILY DOSE 2 TABLETS tramadol 50 mg tablet TAKE ONE TABLET BY MOUTH TWICE A DAY MAXIMUM DAILY DOSE 2 TABLETS completed tramadol hydrochloride 50 MG Ora l Tablet [place] ([facility]) gabapentin 100 MG Oral Capsule gabapenti n 100 mg capsule TAKE ONE CAPSULE BY MOUTH THREE TIMES A DAY gabapentin 100 mg capsule TAKE ONE CAPSU LE BY MOUTH THREE TIMES A DAY completed prisca pentin 100 MG Oral Capsule [place] ([facility]) Azithromycin 250 MG Oral Tablet azithrom ycin 250 mg tablet TAKE TWO TABLETS BY MOUTH AT ONCE ON THE FIRST DAY THEN TAKE ONE DAILY THEREAFTER azithromycin 250 mg tablet TAKE TWO TABLETS BY MOUTH AT ONCE ON THE FIRST DAY THEN TAKE ONE DAILY THEREAFTER completed azithromyci n 250 MG Oral Tablet [place] ([facility]) Magnesium Hydroxide 80 MG/ML Oral Suspen maxim Milk of Magnesia 400 mg/5 mL oral suspension TAKE 30 MLS BY MOUTH ONCE DAILY NEEDED FOR CONSTIPATION Milk of Magnesia 400 mg/5 mL oral suspension TAKE 30 MLS BY MOUTH ONCE DAILY NEEDED FOR CONSTIPATION completed magnesium hydroxide 80 MG/ML Oral Suspension [place] ([facility]) albuterol sulfate HFA 90 mcg/actuation a erosol inhaler INHALE 4 PUFFS EVERY 4 TO 6 HOURS NEEDED FOR WHEEZING [id number] [facility]akiya [id number] 200 ACTUAT albuterol 0.09 MG/ACTUAT Metered Dose Inhaler [place] ([facility]) Methocarbamol 500 MG Oral Tablet methoca rbamol 500 mg tablet TAKE ONE TABLET BY MOUTH THREE TIMES A DAY methocarbamol 500 mg tablet TAKE ONE TAB LET BY MOUTH THREE TIMES A DAY completed meth ocarbamol 500 MG Oral Tablet [place] ([facility]) Melatonin 5 MG Oral Tablet melatonin 5 m g tablet Take 1 tablet every day by oral route at bedtime. melatonin 5 mg tablet Take 1 tablet ever y day by oral route at bedtime. 1 completed melatonin 5 M G Oral Tablet [place] ([facility]) Ondansetron 8 MG Disintegrating Oral Tab let ondansetron [address] ONE TABLET UNDER THE TONGUE THREE TIMES A DAY ondansetron [address] ONE TABLET UNDER THE TONGUE THREE TIMES A DAY completed ondansetron 8 MG Dis integrating Oral Tablet [place] ([facility]) Azithromycin 250 MG Oral Tablet azithrom ycin 250 mg tablet TAKE TWO TABLETS BY MOUTH AT ONCE ON THE FIRST DAY THEN TAKE ONE DAILY THEREAFTER azithromycin 250 mg tablet TAKE TWO TABLETS BY MOUTH AT ONCE ON THE FIRST DAY THEN TAKE ONE DAILY THEREAFTER completed azithromyci n 250 MG Oral Tablet [place] ([facility]) Ondansetron 8 MG Disintegrating Oral Tab let ondansetron [address] ONE TABLET UNDER THE TONGUE THREE TIMES A DAY ondansetron [address] ONE TABLET UNDER THE TONGUE THREE TIMES A DAY completed ondansetron 8 MG Dis integrating Oral Tablet [place] ([facility]) 24 HR venlafaxine 37.5 MG Extended Relea se Oral Capsule venlafaxine ER 37.5 mg capsule,extended release 24 hr TAKE ONE CAPSULE BY MOUTH EVERY MORNING venlafaxine ER 37.5 mg capsule,extended release 24 hr TAKE ONE CAPSULE BY MOUTH EVERY MORNING completed 24 HR venlafaxine 37.5 MG Extended Release Oral Capsule [place] ([facility]) Ondansetron 8 MG Disintegrating Oral Tab let ondansetron [address] tablet [address]ACE ONE TABLET UNDER THE TONGUE THREE TIMES A DAY ondansetron [address] ONE TABLET UNDER THE TONGUE THREE TIMES A DAY completed ondansetron 8 MG Dis integrating Oral Tablet [place] ([facility]) Prednisone 50 MG Oral Tablet prednisone 50 mg tablet TAKE 12 TABLETS BY MOUTH TWO TIMES A DAY FOR 2 DAYS prednisone 50 mg tablet TAKE 12 TABLETS BY MOUTH TWO TIMES A DAY FOR 2 DAYS completed prednisone 50 MG Oral Tablet [place] ([facility]) Ketorolac Tromethamine 10 MG Oral Tablet ketorolac 10 mg tablet TAKE ONE TABLET BY MOUTH FOUR TIMES A DAY ketorolac 10 mg tablet TAKE ONE TABLET B Y MOUTH FOUR TIMES A DAY completed ketorolac tromethamine 10 MG Oral Tablet [place] ([facility]) Clonazepam 0.5 MG Oral Tablet clonazepam 0.5 mg tablet TAKE ONE TABLET BY MOUTH EVERY DAY MAXIMUM DAILY DOSE 1 clonazepam 0.5 mg tablet TAKE ONE TABLET BY MOUTH EVERY DAY MAXIMUM DAILY DOSE 1 completed clonazepam 0.5 MG Oral Tablet [place] ([facility]) Oxycodone Hydrochloride 10 MG Oral Table t oxycodone 10 mg tablet TAKE ONE TABLET BY MOUTH EVERY 12 HOURS NEEDED FOR POST OP PAIN MAXIMUM DAILY DOSE 2 oxycodone 10 mg tablet TAKE ONE TABLET BY MOUTH EVERY 12 HOURS NEEDED FOR POST OP PAIN MAXIMUM DAILY DOSE 2 co mpleted oxycodone hydrochloride 10 MG Oral Tablet [place] ([facility]) Baclofen 10 MG Oral Tablet baclofen 10 m g tablet Take 1 tablet 3 times a day by oral route. baclofen 10 mg tablet Take 1 tablet 3 times a day by oral ro [place]. 1 completed baclofen 10 MG Oral Tablet [place] ([facility]) Baclofen 5 MG Oral Tablet baclofen 5 mg tablet baclofen 5 mg tablet completed baclofen 5 MG Oral Tablet [place] ([facility]) 12 HR Oxycodone Hydrochloride 30 MG Exte nded Release Oral Tablet [Oxycontin] OxyContin 30 mg tablet,crush resistant,extended release TAKE ONE TABLET BY MOUTH EVERY DAY MAXIMUM DAILY DOSE 1 TABLET OxyContin 30 mg tablet,crush resistant,extended release TAKE ONE TABLET BY MOUTH EVERY DAY MAXIMUM DAILY DOSE 1 TABLET completed Ab use-Deterrent 12 HR oxycodone hydrochloride 30 MG Extended Release Oral Tablet [Oxycontin] [place] ([facility]) Naproxen 500 MG Oral Tablet naproxen 500 mg tablet TAKE ONE TABLET BY MOUTH TWICE A DAY WITH FOOD naproxen 500 mg tablet TAKE ONE TABLET B Y MOUTH TWICE A DAY WITH FOOD completed naproxen 500 MG Oral Tablet [place] ([facility]) Nortriptyline 25 MG Oral Capsule nortrip tyline 25 mg capsule TAKE ONE CAPSULE BY MOUTH EVERY MORNING nortriptyline 25 mg capsule TAKE ONE CAP [place] BY MOUTH EVERY MORNING completed nortriptyline 25 MG Oral Capsule [place] ([facility]) methylprednisolone 4 mg tablets in a dos e pack TAKE BY MOUTH FOLLOWING PACKAGE INSTRUCTIONS [id number] completed me thylprednisolone 4 mg tablets in a dose pack [place] ([facility]) tramadol hydrochloride 50 MG Oral Tablet tramadol 50 mg tablet TAKE ONE TABLET BY MOUTH TWICE A DAY MAXIMUM DAILY DOSE 2 TABLETS tramadol 50 mg tablet TAKE ONE TABLET BY MOUTH TWICE A DAY MAXIMUM DAILY DOSE 2 TABLETS completed tramadol hydrochloride 50 MG Ora l Tablet [place] ([facility]) oxycodone completed oxycodone [place] ([facility]) Magnesium Hydroxide 80 MG/ML Oral Suspen maxim Milk of Magnesia 400 mg/5 mL oral suspension TAKE 30 MLS BY MOUTH ONCE DAILY NEEDED FOR CONSTIPATION Milk of Magnesia 400 mg/5 mL oral suspension TAKE 30 MLS BY MOUTH ONCE DAILY NEEDED FOR CONSTIPATION completed magnesium hydroxide 80 MG/ML Oral Suspension [place] ([facility]) Baclofen 5 MG Oral Tablet baclofen 5 mg tablet baclofen 5 mg tablet completed baclofen 5 MG Oral Tablet [place] ([facility]) Prednisone 50 MG Oral Tablet prednisone 50 mg tablet TAKE ONE TABLET BY MOUTH EVERY DAY WITH A MEAL prednisone 50 mg tablet TAKE ONE TABLET BY MOUTH EVERY DAY WITH A MEAL completed prednison e 50 MG Oral Tablet [place] ([facility]) Docusate Sodium 50 MG / sennosides, MCC 8.6 MG Oral Tablet Stimulant Laxative Plus 8.6 mg-50 mg tablet TAKE 2 TABLETS BY MOUTH ONCE OR TWICE DAILY TO PREVENT CONSTIPATION Stimulant Laxative Plus 8.6 mg-50 mg tab let TAKE 2 TABLETS BY MOUTH ONCE OR TWICE DAILY TO PREVENT CONSTIPATION completed docusate sodium 50 MG / sennosides, MCC 8.6 MG Oral Tablet [place] ([facility]) methylprednisolone 4 mg tablets in a dos e pack TAKE BY MOUTH FOLLOWING PACKAGE INSTRUCTIONS [id number] completed me thylprednisolone 4 mg tablets in a dose pack [place] ([facility]) 12 HR Oxycodone Hydrochloride 30 MG Exte nded Release Oral Tablet [Oxycontin] OxyContin 30 mg tablet,crush resistant,extended release TAKE ONE TABLET BY MOUTH EVERY DAY MAXIMUM DAILY DOSE 1 TABLET OxyContin 30 mg tablet,crush resistant,extended release TAKE ONE TABLET BY MOUTH EVERY DAY MAXIMUM DAILY DOSE 1 TABLET completed Ab use-Deterrent 12 HR oxycodone hydrochloride 30 MG Extended Release Oral Tablet [Oxycontin] [place] ([facility]) Ketorolac Tromethamine 10 MG Oral Tablet ketorolac 10 mg tablet TAKE ONE TABLET BY MOUTH FOUR TIMES A DAY ketorolac 10 mg tablet TAKE ONE TABLET B Y MOUTH FOUR TIMES A DAY completed ketorolac tromethamine 10 MG Oral Tablet [place] ([facility]) Cyclobenzaprine hydrochloride 10 MG Oral Tablet cyclob enzaprine 10 mg tablet cyclobenzaprine 10 mg tablet completed cyclobenzaprine hydrochloride 10 MG Oral Tablet [place] ([facility]) 24 HR venlafaxine 37.5 MG Extended Relea se Oral Capsule venlafaxine ER 37.5 mg capsule,extended release 24 hr venlafaxine ER 37.5 mg capsule,extended release 24 hr completed 24 HR v enlafaxine 37.5 MG Extended Release Oral Capsule [place] ([facility]) oxycodone completed oxycodone [place] ([facility]) Cyclobenzaprine hydrochloride 10 MG Oral Tablet cyclob enzaprine 10 mg tablet cyclobenzaprine 10 mg tablet completed cyclobenzaprine hydrochloride 10 MG Oral Tablet [place] ([facility]) Oxycodone Hydrochloride 5 MG Oral Tablet oxycodone 5 mg tablet TAKE 1/2 TABLET 2.5MG BY MOUTH EVERY 6 HOURS NEEDED MAXIMUM DAILY DOSE 2 TABLETS oxycodone 5 mg tablet TAKE 1/2 TABLET 2.5MG BY MOUTH EVERY 6 HOURS NEEDED MAXIMUM DAILY DOSE 2 TABLETS comple zakiya oxycodone hydrochloride 5 MG Oral Tablet [place] ([facility]) Cyclobenzaprine hydrochloride 10 MG Oral Tablet cyclob enzaprine 10 mg tablet cyclobenzaprine 10 mg tablet completed cyclobenzaprine hydrochloride 10 MG Oral Tablet [place] ([facility]) Oxycodone Hydrochloride 10 MG Oral Table t oxycodone 10 mg tablet TAKE ONE TABLET BY MOUTH EVERY 12 HOURS NEEDED FOR POST OP PAIN MAXIMUM DAILY DOSE 2 oxycodone 10 mg tablet TAKE ONE TABLET BY MOUTH EVERY 12 HOURS NEEDED FOR POST OP PAIN MAXIMUM DAILY DOSE 2 co mpleted oxycodone hydrochloride 10 MG Oral Tablet [place] ([facility]) Methocarbamol 500 MG Oral Tablet methoca rbamol 500 mg tablet TAKE ONE TABLET BY MOUTH THREE TIMES A DAY methocarbamol 500 mg tablet TAKE ONE TAB LET BY MOUTH THREE TIMES A DAY completed meth ocarbamol 500 MG Oral Tablet [place] ([facility]) Naproxen 500 MG Oral Tablet naproxen 500 mg tablet TAKE ONE TABLET BY MOUTH TWICE A DAY WITH FOOD naproxen 500 mg tablet TAKE ONE TABLET B Y MOUTH TWICE A DAY WITH FOOD completed naproxen 500 MG Oral Tablet [place] ([facility]) oxycodone completed oxycodone [place] ([facility]) Oxycodone Hydrochloride 5 MG Oral Tablet oxycodone 5 mg tablet TAKE 1/2 TABLET 2.5MG BY MOUTH EVERY 6 HOURS NEEDED MAXIMUM DAILY DOSE 2 TABLETS oxycodone 5 mg tablet TAKE 1/2 TABLET 2.5MG BY MOUTH EVERY 6 HOURS NEEDED MAXIMUM DAILY DOSE 2 TABLETS comple zakiya oxycodone hydrochloride 5 MG Oral Tablet [place] ([facility]) Cyclobenzaprine hydrochloride 10 MG Oral Tablet cyclob enzaprine 10 mg tablet cyclobenzaprine 10 mg tablet completed cyclobenzaprine hydrochloride 10 MG Oral Tablet [place] ([facility]) 24 HR Nicotine 0.875 MG/HR Transdermal P atch nicotine 21 mg/24 hr daily transdermal patch nicotine 21 mg/24 hr daily transdermal patch completed 24 HR nicotine 0.875 MG/HR Trans dermal System [place] ([facility]) Nortriptyline 10 MG Oral Capsule nortrip tyline 10 mg capsule Take 1 capsule every day by oral route at bedtime. nortriptyline 10 mg capsule Take 1 capsu le every day by oral route at bedtime. 1 capsule(s) completed nortriptyline 10 MG Oral Capsule [place] ([facility]) Magnesium Hydroxide 80 MG/ML Oral Suspen maxim Milk of Magnesia 400 mg/5 mL oral suspension TAKE 30 MLS BY MOUTH ONCE DAILY NEEDED FOR CONSTIPATION Milk of Magnesia 400 mg/5 mL oral suspension TAKE 30 MLS BY MOUTH ONCE DAILY NEEDED FOR CONSTIPATION completed magnesium hydroxide 80 MG/ML Oral Suspension [place] ([facility]) 12 HR Oxycodone Hydrochloride 30 MG Exte nded Release Oral Tablet [Oxycontin] OxyContin 30 mg tablet,crush resistant,extended release TAKE ONE TABLET BY MOUTH EVERY DAY MAXIMUM DAILY DOSE 1 TABLET OxyContin 30 mg tablet,crush resistant,extended release TAKE ONE TABLET BY MOUTH EVERY DAY MAXIMUM DAILY DOSE 1 TABLET completed Ab use-Deterrent 12 HR oxycodone hydrochloride 30 MG Extended Release Oral Tablet [Oxycontin] [place] ([facility]) Amlodipine 10 MG Oral Tablet amlodipine 10 mg tablet TAKE ONE TABLET BY MOUTH EVERY DAY amlodipine 10 mg tablet TAKE ONE TABLET BY MOUTH EVERY DAY completed amlodipine 10 MG Oral Tablet [place] ([facility]) albuterol sulfate HFA 90 mcg/actuation a erosol inhaler INHALE 4 PUFFS EVERY 4 TO 6 HOURS NEEDED FOR WHEEZING [id number] compl eted [id number] 200 ACTUAT albuterol 0.09 MG/ACTUAT Metered Dose Inhaler [place] ([facility]) gabapentin 100 MG Oral Capsule gabapenti n 100 mg capsule TAKE ONE CAPSULE BY MOUTH THREE TIMES A DAY gabapentin 100 mg capsule TAKE ONE CAPSU LE BY MOUTH THREE TIMES A DAY completed prisca pentin 100 MG Oral Capsule [place] ([facility]) Methocarbamol 500 MG Oral Tablet methoca rbamol 500 mg tablet TAKE ONE TABLET BY MOUTH THREE TIMES A DAY methocarbamol 500 mg tablet TAKE ONE TAB LET BY MOUTH THREE TIMES A DAY completed meth ocarbamol 500 MG Oral Tablet [place] ([facility]) tramadol hydrochloride 50 MG Oral Tablet tramadol 50 mg tablet TAKE ONE TABLET BY MOUTH TWICE A DAY MAXIMUM DAILY DOSE 2 TABLETS tramadol 50 mg tablet TAKE ONE TABLET BY MOUTH TWICE A DAY MAXIMUM DAILY DOSE 2 TABLETS completed tramadol hydrochloride 50 MG Ora l Tablet [place] ([facility]) Ketorolac Tromethamine 10 MG Oral Tablet ketorolac 10 mg tablet TAKE ONE TABLET BY MOUTH FOUR TIMES A DAY ketorolac 10 mg tablet TAKE ONE TABLET B Y MOUTH FOUR TIMES A DAY completed ketorolac tromethamine 10 MG Oral Tablet [place] ([facility]) 24 HR venlafaxine 37.5 MG Extended Relea se Oral Capsule venlafaxine ER 37.5 mg capsule,extended release 24 hr TAKE ONE CAPSULE BY MOUTH EVERY MORNING venlafaxine ER 37.5 mg capsule,extended release 24 hr TAKE ONE CAPSULE BY MOUTH EVERY MORNING completed 24 HR venlafaxine 37.5 MG Extended Release Oral Capsule [facility]) tramadol hydrochloride 50 MG Oral Tablet tramadol 50 mg tablet TAKE ONE TABLET BY MOUTH TWICE A DAY MAXIMUM DAILY DOSE 2 TABLETS tramadol 50 mg tablet TAKE ONE TABLET BY MOUTH TWICE A DAY MAXIMUM DAILY DOSE 2 TABLETS completed tramadol hydrochloride 50 MG Ora l Tablet [place] ([facility]) Oxycodone Hydrochloride 5 MG Oral Tablet oxycodone 5 mg tablet TAKE 1/2 TABLET 2.5MG BY MOUTH EVERY 6 HOURS NEEDED MAXIMUM DAILY DOSE 2 TABLETS oxycodone 5 mg tablet TAKE 1/2 TABLET 2.5MG BY MOUTH EVERY 6 HOURS NEEDED MAXIMUM DAILY DOSE 2 TABLETS comple zakiya oxycodone hydrochloride 5 MG Oral Tablet [facility] er) 12 HR Oxycodone Hydrochloride 60 MG Exte nded Release Oral Tablet [Oxycontin] OxyContin 60 mg tablet,crush resistant,extended release TAKE ONE TABLET BY MOUTH TWICE A DAY FOR 7 DAYS MAXIMUM DAILY DOSE 2 TABLETS OxyContin 60 mg tablet,crush resistant,extended release TAKE ONE TABLET BY MOUTH TWICE A DAY FOR 7 DAYS MAXIMUM DAILY DOSE 2 TABLETS completed Abuse-Deterrent 12 HR oxycodone hydrochloride 60 MG Extended Release Oral Tablet [Oxycontin] [place] ([facility]) Oxycodone Hydrochloride 5 MG Oral Tablet oxycodone 5 mg tablet TAKE 1/2 TABLET 2.5MG BY MOUTH EVERY 6 HOURS NEEDED MAXIMUM DAILY DOSE 2 TABLETS oxycodone 5 mg tablet TAKE 1/2 TABLET 2.5MG BY MOUTH EVERY 6 HOURS NEEDED MAXIMUM DAILY DOSE 2 TABLETS comple zakiya oxycodone hydrochloride 5 MG Oral Tablet [facility] er) Ondansetron 8 MG Disintegrating Oral Tab let ondansetron [address] ONE TABLET UNDER THE TONGUE THREE TIMES A DAY ondansetron [address] ONE TABLET UNDER THE TONGUE THREE TIMES A DAY completed ondansetron 8 MG Dis integrating Oral Tablet [place] ([facility]) Prednisone 50 MG Oral Tablet prednisone 50 mg tablet TAKE ONE TABLET BY MOUTH EVERY DAY WITH A MEAL prednisone 50 mg tablet TAKE ONE TABLET BY MOUTH EVERY DAY WITH A MEAL completed prednison e 50 MG Oral Tablet [place] ([facility]) 12 HR Oxycodone Hydrochloride 60 MG Exte nded Release Oral Tablet [Oxycontin] OxyContin 60 mg tablet,crush resistant,extended release TAKE ONE TABLET BY MOUTH TWICE A DAY FOR 7 DAYS MAXIMUM DAILY DOSE 2 TABLETS OxyContin 60 mg tablet,crush resistant,extended release TAKE ONE TABLET BY MOUTH TWICE A DAY FOR 7 DAYS MAXIMUM DAILY DOSE 2 TABLETS completed Abuse-Deterrent 12 HR oxycodone hydrochloride 60 MG Extended Release Oral Tablet [Oxycontin] [place] ([facility]) 12 HR Oxycodone Hydrochloride 30 MG Exte nded Release Oral Tablet [Oxycontin] OxyContin 30 mg tablet,crush resistant,extended release TAKE ONE TABLET BY MOUTH EVERY DAY MAXIMUM DAILY DOSE 1 TABLET OxyContin 30 mg tablet,crush resistant,extended release TAKE ONE TABLET BY MOUTH EVERY DAY MAXIMUM DAILY DOSE 1 TABLET completed Ab use-Deterrent 12 HR oxycodone hydrochloride 30 MG Extended Release Oral Tablet [Oxycontin] [place] ([facility]) Methocarbamol 500 MG Oral Tablet methoca rbamol 500 mg tablet TAKE ONE TABLET BY MOUTH THREE TIMES A DAY methocarbamol 500 mg tablet TAKE ONE TAB LET BY MOUTH THREE TIMES A DAY completed meth ocarbamol 500 MG Oral Tablet [place] ([facility]) Ketorolac Tromethamine 10 MG Oral Tablet ketorolac 10 mg tablet TAKE ONE TABLET BY MOUTH FOUR TIMES A DAY ketorolac 10 mg tablet TAKE ONE TABLET B Y MOUTH FOUR TIMES A DAY completed ketorolac tromethamine 10 MG Oral Tablet [place] ([facility]) Methocarbamol 750 MG Oral Tablet methoca rbamol 750 mg tablet TAKE 2 TABLETS BY MOUTH TWICE A DAY NEEDED methocarbamol 750 mg tablet TAKE 2 TABLE TS BY MOUTH TWICE A DAY NEEDED completed methocarbamol 750 MG Oral Tablet [place] ([facility]) Naproxen 500 MG Oral Tablet naproxen 500 mg tablet TAKE ONE TABLET BY MOUTH TWICE A DAY WITH FOOD naproxen 500 mg tablet TAKE ONE TABLET B Y MOUTH TWICE A DAY WITH FOOD completed naproxen 500 MG Oral Tablet [place] ([facility]) oxycodone completed oxycodone [place] [facility]) Oxycodone Hydrochloride 10 MG Oral Table t oxycodone 10 mg tablet TAKE ONE TABLET BY MOUTH EVERY 12 HOURS NEEDED FOR POST OP PAIN MAXIMUM DAILY DOSE 2 oxycodone 10 mg tablet TAKE ONE TABLET BY MOUTH EVERY 12 HOURS NEEDED FOR POST OP PAIN MAXIMUM DAILY DOSE 2 co mpleted oxycodone hydrochloride 10 MG Oral Tablet [place] ([facility]) oxycodone completed oxycodone [place] ([facility]) Naproxen 500 MG Oral Tablet naproxen 500 mg tablet TAKE ONE TABLET BY MOUTH TWICE A DAY WITH FOOD naproxen 500 mg tablet TAKE ONE TABLET B Y MOUTH TWICE A DAY WITH FOOD completed naproxen 500 MG Oral Tablet [place] ([facility]) Naproxen 500 MG Oral Tablet naproxen 500 mg tablet TAKE ONE TABLET BY MOUTH TWICE A DAY WITH FOOD naproxen 500 mg tablet TAKE ONE TABLET B Y MOUTH TWICE A DAY WITH FOOD completed naproxen 500 MG Oral Tablet [place] ([facility]) Azithromycin 250 MG Oral Tablet azithrom ycin 250 mg tablet TAKE TWO TABLETS BY MOUTH AT ONCE ON THE FIRST DAY THEN TAKE ONE DAILY THEREAFTER azithromycin 250 mg tablet TAKE TWO TABLETS BY MOUTH AT ONCE ON THE FIRST DAY THEN TAKE ONE DAILY THEREAFTER completed azithromyc in 250 MG Oral Tablet [place] ([facility]) Methocarbamol 500 MG Oral Tablet methoca rbamol 500 mg tablet TAKE ONE TABLET BY MOUTH THREE TIMES A DAY methocarbamol 500 mg tablet TAKE ONE TAB LET BY MOUTH THREE TIMES A DAY completed meth ocarbamol 500 MG Oral Tablet [place] ([facility]) 12 HR Oxycodone Hydrochloride 60 MG Exte nded Release Oral Tablet [Oxycontin] OxyContin 60 mg tablet,crush resistant,extended release TAKE ONE TABLET BY MOUTH TWICE A DAY FOR 7 DAYS MAXIMUM DAILY DOSE 2 TABLETS OxyContin 60 mg tablet,crush resistant,extended release TAKE ONE TABLET BY MOUTH TWICE A DAY FOR 7 DAYS MAXIMUM DAILY DOSE 2 TABLETS completed Abuse-Deterrent 12 HR oxycodone hydrochloride 60 MG Extended Release Oral Tablet [Oxycontin] [facility]) oxycodone completed oxycodone [facility]) 12 HR Oxycodone Hydrochloride 30 MG Exte nded Release Oral Tablet [Oxycontin] OxyContin 30 mg tablet,crush resistant,extended release TAKE ONE TABLET BY MOUTH EVERY DAY MAXIMUM DAILY DOSE 1 TABLET OxyContin 30 mg tablet,crush resistant,extended release TAKE ONE TABLET BY MOUTH EVERY DAY MAXIMUM DAILY DOSE 1 TABLET completed Ab use-Deterrent 12 HR oxycodone hydrochloride 30 MG Extended Release Oral Tablet [Oxycontin] [facility]) albuterol sulfate HFA 90 mcg/actuation a erosol inhaler INHALE 4 PUFFS EVERY 4 TO 6 HOURS NEEDED FOR WHEEZING [id number] compl eted [id number] 200 ACTUAT albuterol 0.09 MG/ACTUAT Metered Dose Inhaler [place] ([facility]) Magnesium Hydroxide 80 MG/ML Oral Suspen maxim Milk of Magnesia 400 mg/5 mL oral suspension TAKE 30 MLS BY MOUTH ONCE DAILY NEEDED FOR CONSTIPATION Milk of Magnesia 400 mg/5 mL oral suspension TAKE 30 MLS BY MOUTH ONCE DAILY NEEDED FOR CONSTIPATION completed magnesium hydroxide 80 MG/ML Oral Suspension [facility]) pantoprazole 40 MG Delayed Release Oral Tablet pantoprazole 40 mg tablet,delayed release Take 1 tablet every day by oral route. pantoprazole 40 mg tablet,delayed release Take 1 tablet every day by oral route. 1 completed pantoprazole 40 MG Delayed Relea se Oral Tablet [place] ([facility]) albuterol sulfate HFA 90 mcg/actuation a erosol inhaler INHALE 4 PUFFS EVERY 4 TO 6 HOURS NEEDED FOR WHEEZING [id number] compl eted [id number] 200 ACTUAT albuterol 0.09 MG/ACTUAT Metered Dose Inhaler [place] ([facility]) Azithromycin 250 MG Oral Tablet azithrom ycin 250 mg tablet TAKE TWO TABLETS BY MOUTH AT ONCE ON THE FIRST DAY THEN TAKE ONE DAILY THEREAFTER azithromycin 250 mg tablet TAKE TWO TABLETS BY MOUTH AT ONCE ON THE FIRST DAY THEN TAKE ONE DAILY THEREAFTER completed azithromyc in 250 MG Oral Tablet [place] ([facility]) Methocarbamol 500 MG Oral Tablet methoca rbamol 500 mg tablet TAKE ONE TABLET BY MOUTH THREE TIMES A DAY methocarbamol 500 mg tablet TAKE ONE TAB LET BY MOUTH THREE TIMES A DAY completed meth ocarbamol 500 MG Oral Tablet [place] ([facility]) gabapentin 100 MG Oral Capsule gabapenti n 100 mg capsule TAKE ONE CAPSULE BY MOUTH THREE TIMES A DAY gabapentin 100 mg capsule TAKE ONE CAPSU LE BY MOUTH THREE TIMES A DAY completed prisca pentin 100 MG Oral Capsule [place] ([facility]) gabapentin 100 MG Oral Capsule gabapenti n 100 mg capsule TAKE ONE CAPSULE BY MOUTH THREE TIMES A DAY gabapentin 100 mg capsule TAKE ONE CAPSU LE BY MOUTH THREE TIMES A DAY completed prisca pentin 100 MG Oral Capsule [place] ([facility]) Azithromycin 250 MG Oral Tablet azithrom ycin 250 mg tablet TAKE TWO TABLETS BY MOUTH AT ONCE ON THE FIRST DAY THEN TAKE ONE DAILY THEREAFTER azithromycin 250 mg tablet TAKE TWO TABLETS BY MOUTH AT ONCE ON THE FIRST DAY THEN TAKE ONE DAILY THEREAFTER completed azithromyc in 250 MG Oral Tablet [place] ([facility]) Acetaminophen 500 MG Oral Tablet acetaminophen 500 mg tablet acetaminophen 500 mg tablet completed acetaminophe n 500 MG Oral Tablet [place] ([facility]) Magnesium Hydroxide 80 MG/ML Oral Suspen maxim Milk of Magnesia 400 mg/5 mL oral suspension TAKE 30 MLS BY MOUTH ONCE DAILY NEEDED FOR CONSTIPATION Milk of Magnesia 400 mg/5 mL oral suspension TAKE 30 MLS BY MOUTH ONCE DAILY NEEDED FOR CONSTIPATION completed magnesium hydroxide 80 MG/ML Oral Suspension [place] ([facility]) methylprednisolone 4 mg tablets in a dos e pack TAKE BY MOUTH FOLLOWING PACKAGE INSTRUCTIONS [id number] completed me thylprednisolone 4 mg tablets in a dose pack [place] ([facility]) Cyclobenzaprine hydrochloride 10 MG Oral Tablet cyclob enzaprine 10 mg tablet cyclobenzaprine 10 mg tablet completed cyclobenzaprine hydrochloride 10 MG Oral Tablet [place] ([facility]) 12 HR Oxycodone Hydrochloride 60 MG Exte nded Release Oral Tablet [Oxycontin] OxyContin 60 mg tablet,crush resistant,extended release TAKE ONE TABLET BY MOUTH TWICE A DAY FOR 7 DAYS MAXIMUM DAILY DOSE 2 TABLETS OxyContin 60 mg tablet,crush resistant,extended release TAKE ONE TABLET BY MOUTH TWICE A DAY FOR 7 DAYS MAXIMUM DAILY DOSE 2 TABLETS completed Abuse-Deterrent 12 HR oxycodone hydrochloride 60 MG Extended Release Oral Tablet [Oxycontin] [place] ([facility]) Docusate Sodium 100 MG Oral Capsule [DOK] DOK 100 mg capsule DOK 100 mg capsule completed docusate sodiu m 100 MG Oral Capsule [DOK] [place] ([facility]) Oxycodone Hydrochloride 10 MG Oral Table t oxycodone 10 mg tablet TAKE ONE TABLET BY MOUTH EVERY 12 HOURS NEEDED FOR POST OP PAIN MAXIMUM DAILY DOSE 2 oxycodone 10 mg tablet TAKE ONE TABLET BY MOUTH EVERY 12 HOURS NEEDED FOR POST OP PAIN MAXIMUM DAILY DOSE 2 co mpleted oxycodone hydrochloride 10 MG Oral Tablet [place] ([facility]) Baclofen 5 MG Oral Tablet baclofen (LIORESAL) 5 MG tab let baclofen (LIORESAL) 5 MG tablet 5 mg Oral aborted Take 5 mg by m outh Three times daily [facility] Ketorolac Tromethamine 10 MG Oral Tablet ketorolac 10 mg tablet TAKE ONE TABLET BY MOUTH FOUR TIMES A DAY ketorolac 10 mg tablet TAKE ONE TABLET B Y MOUTH FOUR TIMES A DAY completed ketorolac tromethamine 10 MG Oral Tablet [place] ([facility]) Ondansetron 4 MG Oral Tablet ondansetron HCl 4 mg tabl et ondansetron HCl 4 mg tablet completed ondansetron 4 M G Oral Tablet [place] ([facility]) Ondansetron 8 MG Disintegrating Oral Tab let ondansetron [address] ONE TABLET UNDER THE TONGUE THREE TIMES A DAY ondansetron [address] ONE TABLET UNDER THE TONGUE THREE TIMES A DAY completed ondansetron 8 MG Dis integrating Oral Tablet [place] ([facility]) Methocarbamol 750 MG Oral Tablet methoca rbamol 750 mg tablet TAKE 2 TABLETS BY MOUTH TWICE A DAY NEEDED methocarbamol 750 mg tablet TAKE 2 TABLE TS BY MOUTH TWICE A DAY NEEDED completed methocarbamol 750 MG Oral Tablet [facility] er) 12 HR Oxycodone Hydrochloride 60 MG Exte nded Release Oral Tablet [Oxycontin] OxyContin 60 mg tablet,crush resistant,extended release TAKE ONE TABLET BY MOUTH TWICE A DAY FOR 7 DAYS MAXIMUM DAILY DOSE 2 TABLETS OxyContin 60 mg tablet,crush resistant,extended release TAKE ONE TABLET BY MOUTH TWICE A DAY FOR 7 DAYS MAXIMUM DAILY DOSE 2 TABLETS completed Abuse-Deterrent 12 HR oxycodone hydrochloride 60 MG Extended Release Oral Tablet [Oxycontin] [facility]) Azithromycin 250 MG Oral Tablet azithrom ycin 250 mg tablet TAKE TWO TABLETS BY MOUTH AT ONCE ON THE FIRST DAY THEN TAKE ONE DAILY THEREAFTER azithromycin 250 mg tablet TAKE TWO TABLETS BY MOUTH AT ONCE ON THE FIRST DAY THEN TAKE ONE DAILY THEREAFTER completed azithromyc in 250 MG Oral Tablet [facility]) 12 HR Oxycodone Hydrochloride 30 MG Exte nded Release Oral Tablet [Oxycontin] OxyContin 30 mg tablet,crush resistant,extended release TAKE ONE TABLET BY MOUTH EVERY DAY MAXIMUM DAILY DOSE 1 TABLET OxyContin 30 mg tablet,crush resistant,extended release TAKE ONE TABLET BY MOUTH EVERY DAY MAXIMUM DAILY DOSE 1 TABLET completed Ab use-Deterrent 12 HR oxycodone hydrochloride 30 MG Extended Release Oral Tablet [Oxycontin] [facility]) Nortriptyline 50 MG Oral Capsule nortrip tyline 50 mg capsule TAKE ONE CAPSULE BY MOUTH EVERY MORNING nortriptyline 50 mg capsule TAKE ONE CAP CHRIST[place] BY MOUTH EVERY MORNING completed nortriptyline 50 MG Oral Capsule [facility]) 12 HR Oxycodone Hydrochloride 60 MG Exte nded Release Oral Tablet [Oxycontin] OxyContin 60 mg tablet,crush resistant,extended release TAKE ONE TABLET BY MOUTH TWICE A DAY FOR 7 DAYS MAXIMUM DAILY DOSE 2 TABLETS OxyContin 60 mg tablet,crush resistant,extended release TAKE ONE TABLET BY MOUTH TWICE A DAY FOR 7 DAYS MAXIMUM DAILY DOSE 2 TABLETS completed Abuse-Deterrent 12 HR oxycodone hydrochloride 60 MG Extended Release Oral Tablet [Oxycontin] [facility]) Cholecalciferol 1000 UNT Oral Capsule ch olecalciferol (vitamin D3) 25 mcg (1,000 unit) capsule Take 1 capsule every day by oral route. cholecalciferol (vitamin D3) 25 mcg (1,000 unit) capsule Take 1 capsule every day by oral route. 1 capsule(s) completed cholecalciferol 0.0 25 MG Oral Capsule [facility]) tramadol hydrochloride 50 MG Oral Tablet tramadol 50 mg tablet TAKE ONE TABLET BY MOUTH TWICE A DAY MAXIMUM DAILY DOSE 2 TABLETS tramadol 50 mg tablet TAKE ONE TABLET BY MOUTH TWICE A DAY MAXIMUM DAILY DOSE 2 TABLETS completed tramadol hydrochloride 50 MG Ora l Tablet [facility]) gabapentin 100 MG Oral Capsule gabapenti n 100 mg capsule TAKE ONE CAPSULE BY MOUTH THREE TIMES A DAY gabapentin 100 mg capsule TAKE ONE CAPSU LE BY MOUTH THREE TIMES A DAY completed prisca pentin 100 MG Oral Capsule [facility]) methylprednisolone 4 mg tablets in a dos e pack TAKE BY MOUTH FOLLOWING PACKAGE INSTRUCTIONS [id number] completed me thylprednisolone 4 mg tablets in a dose pack [facility]) Baclofen 5 MG Oral Tablet baclofen 5 mg tablet baclofen 5 mg tablet completed baclofen 5 MG Oral Tablet [place] ([facility]) Naproxen 500 MG Oral Tablet naproxen 500 mg tablet TAKE ONE TABLET BY MOUTH TWICE A DAY WITH FOOD naproxen 500 mg tablet TAKE ONE TABLET B Y MOUTH TWICE A DAY WITH FOOD completed naproxen 500 MG Oral Tablet [place] ([facility]) Oxycodone Hydrochloride 10 MG Oral Table t oxycodone 10 mg tablet TAKE ONE TABLET BY MOUTH EVERY 12 HOURS NEEDED FOR POST OP PAIN MAXIMUM DAILY DOSE 2 oxycodone 10 mg tablet TAKE ONE TABLET BY MOUTH EVERY 12 HOURS NEEDED FOR POST OP PAIN MAXIMUM DAILY DOSE 2 co mpleted oxycodone hydrochloride 10 MG Oral Tablet [facility]) Insurance Providers Payer name Policy type / Coverage type Policy ID Covered democrat ID Covered democrat's relationship to rowell Policy [place] Plan Information MEDICAID M [id number] Self [id number] Medicaid S [id number] [employer] COMMUNITY PLAN MCDHMO [id number] SP [id number] Managed Care - Community Plan [facility] P [id number] S [id number] [facility] Comm Plan Medicaid F [id number] [id number] [id number] [facility] Comm Plan Medicaid F [id number] SELF [id number] Managed Care - Community Plan [facility] P [id number] S [id number] [facility] Comm Plan Medicaid F [id number] SELF [id number] Medicaid S [id number] S [id number] Managed Care - [facility] Community Plan P [id number] S [id number] Managed Care - Community Plan [facility] P [id number] S [id number] [facility] MEDICAID [id number] xxxxxxxxx [id number] [facility] MEDICAID [id number] Sigrid [id number] MEDICAID [id number] Sigrid [id number] INSURANCE COVID-19 [id number] INSURANCE COVID-19 COVID Sigrid C OVID UH I [id number] Self [id number] MEDICAID -PHYSICIAN [id number] MEDICAID M [id number] S [id number] [facility] ALONDRA [id number] SP [id number] Medicaid P [id number] S [id number] UNHC COMMUNITY PLAN MCDHMO [id number] SP [id number] UNHC COMMUNITY PLAN XIX [id number] 18 [id number] UNHC COMMUNITY PLAN MCDHMO [id number] SP [id number] [facility](MCAID) O [id number] S [id number] [facility] COMM[place]ITY [facility] [id number] 18 [id number] [facility] COMMUNTY PLAN [id number] ANS-Medicaid [id number] MEDICAID [id number] SP [id number] ANSI-Medicaid [id number] Managed Care - Community Plan [facility] P [id number] S [id number] MEDICAID [id number] SP [id number] MEDICAID -O/P EMERGENCY ROOM [id number] UMR -O/P UNAVAILABLE UNAVAILABLE [facility] [place] [facility] [place] [id number] Self [id number] [facility] Health Maintenance Organization [place] [id number] Self [id number] [facility] [id number] SP [id number] Problems, Conditions, and Diagnoses Code Display Name Description Problem Type Effective Dates Data Source(s) M48.00 Spinal stenosis, site unspecified Spinal stenosi s, site unspecified Diagnosis 04/28/2020 07:12:15 AM EDT [facility] [id number] CONTACT WITH AND SUSPECTED EXPOSURE TO C OVID-19 CONTACT WITH AND SUSPECTED EXPOSURE TO COVID-19 Diagnosis 04/19/2020 08:39:00 PM EDT [facility] [id number] Dysarthria following unspecified cerebro vascular disease Dysarthria following unspecified cerebrovascular disease Diagnosis 04/20/19 21 08:39:00 PM EDT [facility] R456 Violent behavior Violent behavior Diagnosis 04/19/2020 08 :39:00 PM EDT [facility] [id number] Cannabis abuse with cannabis-induced anx iety disorder Cannabis abuse with cannabis-induced anxiety disorder Diagnosis 04/19/2020 08:39:00 PM ED T [facility] R000 Tachycardia, unspecified Tachycardia, unspecified Diag nosis 04/19/2020 08:39:00 PM EDT [facility] G8929 Other chronic pain Other chronic pain Diagnosis 08:39:00 PM EDT [facility] F411 Generalized anxiety disorder Generalized anxiety disor fausto Diagnosis 04/19/2020 08:39:00 PM EDT [facility] [id number] Nicotine dependence, cigarettes, uncompl icated Nicotine dependence, cigarettes, uncomplicated Diagnosis 04/19/2020 08:39:00 PM EDT [facility] I10 Essential (primary) hypertension Essential (primary) h ypertension Diagnosis 04/19/2020 08:39:00 PM EDT [facility] [id number] Cannabis abuse with intoxication, unspec ified Cannabis abuse with intoxication, unspecified Diagnosis 04/19/2020 08:39:00 PM EDT [facility] R531 Weakness Weakness Diagnosis 04/19/2020 08:39:00 PM ED [facility] G03061 Pain in left leg Pain in left leg Diagnosis 04/16/2020 02 :27:00 PM [facility] I63.9 Cerebral infarction, unspecified Cerebral infarc tion, unspecified Diagnosis 04/09/2020 05:29:00 PM [facility] stroke stroke Diagnosis 04/09/2020 05:29:00 PM [facility] C65462 Personal history of nicotine dependence Personal history of nicotine dependence Diagnosis 04/09/2020 11:42:00 AM [facility] I6340 Cerebral infarction due to embolism of u nspecified cerebral artery Cerebral infarction due to embolism of unspecified cerebral artery Diagnosis 04/09/2020 11:42:00 AM [facility] R202 Paresthesia of skin Paresthesia of skin Diagnosis 0 04/09/2020 11:42:00 AM [facility] R519 Headache, unspecified Headache, unspecified Diagnosis 03/29/2020 11:40:00 AM [facility] H532 Diplopia Diplopia Diagnosis 03/29/2020 11:40:[address] [facility] R42 Dizziness and giddiness Dizziness and giddiness Diagno sis 03/29/2020 11:40:00 AM [facility] M54.31 Sciatica, right side Sciatica, right side Diagnosis 01/04/2020 09:22:55 PM [facility] M43.17 Spondylolisthesis, lumbosacral region Sp ondylolisthesis, lumbosacral region Diagnosis 01/04/2020 09:22:55 PM [facility] M6281 Muscle weakness (generalized) Muscle weakness (general ized) Diagnosis 01/04/2020 04:23:00 PM [facility] M545 Low back pain Low back pain Diagnosis 01/04/2020 04:23:00 PM [facility] [id number] Severe bipolar disorder with psychotic f eatures Severe Bipolar Disorder with Psychotic Features Problem 06/16/2020 12:00:00 AM EDT [place] ([facility]) [id number] Severe bipolar disorder with psychotic f eatures Severe Bipolar Disorder with Psychotic Features Problem 06/16/2020 12:00:00 AM EDT [place] ([facility]) [id number] Gastroesophageal reflux disease Gastroesophageal Reflux Disease Problem 04/13/2020 12:00:00 AM EST MARJORIE ([facility]) [id number] Chronic obstructive lung disease Chronic Obstruc tive Lung Disease Problem 04/13/2020 12:00:00 AM EST MARJ[place]IE ([facility]) [id number] Asthma Asthma Problem 04/13/2020 12:00:00 AM ES Kelly MARJ[place]IE ([facility]) [id number] Gastroesophageal reflux disease Gastroesophageal Reflux Disease Problem 04/13/2020 12:00:00 AM EST [place] ([facility]) [id number] Chronic obstructive lung disease Chronic Obstruc tive Lung Disease Problem 04/13/2020 12:00:00 AM EST [place]IE ([facility]) [id number] Asthma Asthma Problem 04/13/2020 12:00:00 AM ES T MARJ[place]IE ([facility]) [id number] Gastroesophageal reflux disease Gastroesophageal Reflux Disease Problem 04/13/2020 12:00:00 AM EST MARJORIE ([facility]) [id number] Chronic obstructive lung disease Chronic Obstruc tive Lung Disease Problem 04/13/2020 12:00:00 AM EST [place]IE ([facility]) [id number] Asthma Asthma Problem 04/13/2020 12:00:00 AM ES T MARJ[place]IE ([facility]) [id number] Gastroesophageal reflux disease Gastroesophageal Reflux Disease Problem 04/13/2020 12:00:00 AM EST [place]IE ([facility]) [id number] Chronic obstructive lung disease Chronic Obstruc tive Lung Disease Problem 04/13/2020 12:00:00 AM EST [place] ([facility]) [id number] Asthma Asthma Problem 04/13/2020 12:00:00 AM ES Kelly [place] ([facility]) [id number] Relapsing remitting multiple sclerosis R elapsing Remitting Multiple Sclerosis Problem 04/09/2020 12:00:00 AM EUGENIO AMADOR ([facility]) [id number] Relapsing remitting multiple sclerosis R elapsing Remitting Multiple Sclerosis Problem 04/09/2020 12:00:00 AM EST MARJ[place]IE ([facility]) [id number] Relapsing remitting multiple sclerosis R elapsing Remitting Multiple Sclerosis Problem 04/09/2020 12:00:00 AM EST MARJ[place]IE ([facility]) [id number] Relapsing remitting multiple sclerosis R elapsing Remitting Multiple Sclerosis Problem 04/09/2020 12:00:00 AM EST MARJORIE ([facility]) [id number] Postoperative pain Postoperative Pain Problem 05/2019 12:00:00 AM EST MARJORIE ([facility]) [id number] Postoperative pain Postoperative Pain Problem 05/2019 12:00:00 AM EST [place]IE ([facility]) [id number] Postoperative pain Postoperative Pain Problem 05/2019 12:00:00 AM EST [place]IE ([facility]) [id number] Postoperative pain Postoperative Pain Problem 05/2019 12:00:00 AM EST [place]IE ([facility]) [id number] Postoperative pain Postoperative Pain Problem 05/2019 12:00:00 AM EST MARJ[place]IE ([facility]) [id number] Postoperative pain Postoperative Pain Problem 05/2019 12:00:00 AM EST [place]IE ([facility]) G89.18 Post-op pain Post-op pain [id number] 01/05/2020 12:00:00 A M EST [facility] Z63.4 Disappearance and of family member UNCOMPLICATED BEREAVEMENT 11/05/2019 09:00:34 AM EDT [facility] Z65.1 Imprisonment and other incarceration IMPRISONMEN T OR OTHER INCARCERATION 11/05/2019 09:00:34 AM EDT [facility] F43.8 Other reactions to severe stress TRAUMA- AND STRESSOR-RELATED DISORDER, OTHER SPECIFIED 11/05/2019 09:00:34 AM EDT [facility] 300.01 PANIC DISORDER PANIC DISORDER 11/05/2019 09:00: 34 AM EDT [facility] [id number] Panic disorder Panic Disorder Problem 11/05/2019 12:00: 00 AM EDT [facility]) [id number] Bereavement Bereavement Problem 11/05/2019 12:00:00 AM EDT [facility]) [id number] Imprisonment Imprisonment Problem 11/05/2019 12:00:00 A M EDT [facility]) [id number] Stress and adjustment reaction Stress and Adjustment R eaction Problem 11/05/2019 12:00:00 AM EDT [facility]) [id number] Clinical finding Clinical Finding Problem 11/05/2019 12 :00:00 AM EDT [facility]) [id number] Panic disorder Panic Disorder Problem 11/05/2019 12:00: 00 AM EDT [facility]) [id number] Bereavement Bereavement Problem 11/05/2019 12:00:00 AM EDT [facility]) [id number] Imprisonment Imprisonment Problem 11/05/2019 12:00:00 A M EDT [facility]) [id number] Clinical finding Clinical Finding Problem 11/05/2019 12 :00:00 AM EDT [facility]) [id number] Panic disorder Panic Disorder Problem 11/05/2019 12:00: 00 AM EDT [facility]) [id number] Bereavement Bereavement Problem 11/05/2019 12:00:00 AM EDT [place] ([facility]) [id number] Imprisonment Imprisonment Problem 11/05/2019 12:00:00 A M EDT [facility]) [id number] Clinical finding Clinical Finding Problem 11/05/2019 12 :00:00 AM EDT [facility]) [id number] Panic disorder Panic Disorder Problem 11/05/2019 12:00: 00 AM EDT [facility]) [id number] Bereavement Bereavement Problem 11/05/2019 12:00:00 AM EDT [facility]) [id number] Imprisonment Imprisonment Problem 11/05/2019 12:00:00 A M EDT [facility]) [id number] Panic disorder Panic Disorder Problem 11/05/2019 12:00: 00 AM EDT [facility]) [id number] Bereavement Bereavement Problem 11/05/2019 12:00:00 AM EDT [facility]) [id number] Imprisonment Imprisonment Problem 11/05/2019 12:00:00 A M EDT [facility]) [id number] Stress and adjustment reaction Stress and Adjustment R eaction Problem 11/05/2019 12:00:00 AM EDT [place] ([facility]) Surgeries/Procedures Procedure Description Date Indications Data Source(s) BLOOD COUNT COMPLETE AUTO&AUTO DIFRNTL WBC COUNT <td>C BC AND DIFFERENTIAL</td><td>Routine</td><td>04/12/2020 5:50 AM EST</td><td></td><td> </td> 04/12/2020 05:50:00 AM [facility] BASIC METABOLIC PANEL CALCIUM TOTAL <td>BASIC METABOLI C PANEL</td><td>Routine</td><td>04/12/2020 5:50 AM EST</td><td></td><td> </td> 04/12/2020 05:50:00 AM [facility] NEUTROPHIL CYTO AB COMMENT <td>NEUTROPHIL CYTO AB COMMENT</td><td>Routine</td><td>04/10/2020 4:44 PM EST</td><td></td><td> </td> 04/10/2020 04:44:00 PM [facility] SYPHILIS IGG/IGM SCREEN W/REFLEX TO RPR <td>SYPHILIS I GG/IGM SCREEN W/REFLEX TO RPR</td><td>Routine</td><td>04/10/2020 4:44 PM EST</td><td></td><td> </td> 04/10/2020 04:44:00 PM [facility] GAMMAGLOBULIN IGA IGD IGG IGM EACH <td>IMMUNOGLOBULIN ASSAY</td><td>Routine</td><td>04/10/2020 4:44 PM EST</td><td></td><td> </td> 04/10/2020 04:44:00 PM [facility] DNA ANTIBODY [place]/DOUBLE STRANDED <td>APOLINAR SPECIFICITY</td><td>Routine</td><td>04/10/2020 4:44 PM EST</td><td></td><td> </td> 04/10/2020 04:44:00 PM [facility] IAAD EIA HIV-1 AG W/HIV-1&HIV-2 ANTBDY SINGLE <td>HIV AG AB COMBO SCREEN</td><td>Routine</td><td>04/10/2020 4:44 PM EST</td><td></td><td> </td> 04/10/2020 04:44:00 PM [facility] FLUORESCENT NONNFCT AGT ANTB TITER EA ANTIBODY <td>SUZEI TROPHIL CYTOPLASMIC ANTIBODY</td><td>Routine</td><td>04/10/2020 4:44 PM EST</td><td></td><td> </td> 04/10/2020 04:44:00 PM [facility] THROMBOPLASTIN TIME PARTIAL PLASMA/WHOLE BLOOD <td>HEX AGONAL PHASE PHOSPHO NEUT</td><td>Routine</td><td>04/10/2020 4:44 PM EST</td><td></td><td> </td> 04/10/2020 04:44:00 PM [facility] ACUTE HEPATITIS PANEL <td>HEPATITIS PANEL, ACUTE</td><td>Routine</td><td>04/10/2020 4:44 PM EST</td><td></td><td> </td> 04/10/2020 04:44:00 PM [facility] CARDIOLIPIN ANTIBODY EACH IG CLASS <td>CARDIOLIPIN ANT IBODY, IGA</td><td>Routine</td><td>04/10/2020 4:44 PM EST</td><td></td><td> </td> 04/10/2020 04:44:00 PM [facility] 25 HYDROXY INCLUDES FRACTIONS IF PERFORMED <td>VITAMIN D 25 HYDROXY, TOTAL</td><td>Routine</td><td>04/10/2020 4:44 PM EST</td><td></td><td> </td> 04/10/2020 04:44:00 PM [facility] HEPATITIS B SURF ANTIBODY HBSAB <td>HEPATITIS B SURFAC E ANTIBODY</td><td>Routine</td><td>04/10/2020 4:44 PM EST</td><td></td><td> </td> 04/10/2020 04:44:00 PM [facility] BETA 2 GLYCOPROTEIN I ANTIBODY EACH <td>ZNHS-7-BCZOCYJ OTEIN IGA</td><td>Routine</td><td>04/10/2020 4:44 PM EST</td><td></td><td> </td> 04/10/2020 04:44:00 PM [facility] ANTIBODY BORRELIA BURGDORFERI LYME DISEASE <td>LYME IG G, IGM ANTIBODY</td><td>Routine</td><td>04/10/2020 4:44 PM EST</td><td></td><td> </td> 04/10/2020 04:44:00 PM [facility] C-REACTIVE PROTEIN <td>INFLAMMATORY C-REACTIVE PROTEIN (CRP)</td><td>Routine</td><td>04/10/2020 4:44 PM EST</td><td></td><td> </td> 04/10/2020 04:44:00 PM [facility] ANTINUCLEAR ANTIBODIES APOLINAR <td>APOLINAR</td><td>Routine</td ><td>04/10/2020 4:44 PM EST</td><td></td><td> </td> 04/10/2020 04:44:00 PM [facility] PROTEIN XCPT REFRACTOMETRY SERUM PLASMA/WHL BLD <td>AK OTEIN ELECTROPHORESIS WITH SERUM TOTAL PROTEIN</td><td>Routine</td><td>04/10/2020 4:44 PM EST</td><td></td><td> </td> 04/10/2020 04:44:00 PM [facility] HOMOCYSTEINE <td>HOMOCYSTEINE, SERUM</td> <td>Routine</td><td>04/10/2020 4:44 PM EST</td><td></td><td> </td> 04/10/2020 04:44:00 PM [facility] FOLIC ACID SERUM <td>FOLATE</td><td>Routine</ td><td>04/10/2020 4:44 PM EST</td><td></td><td> </td> 04/10/2020 04:44:00 PM [facility] CYANOCOBALAMIN VITAMIN B-12 <td>VITAMIN B12</td><td>Ro utine</td><td>04/10/2020 4:44 PM EST</td><td></td><td> </td> 04/10/2020 04:44:00 PM [facility] HEPATIC FUNCTION PANEL <td>HEPATIC FUNCTION PANEL A</td><td>Routine</td><td>04/10/2020 4:44 PM EST</td><td></td><td> </td> 04/10/2020 04:44:00 PM [facility] MRI SPINAL CANAL CERVICAL W/O & W/CONTR MATRL <td>MR C ERVICAL SPINE WITH AND WITHOUT CONTRAST [id number]</td><td>Routine</td><td>04/10/2020 2:44 PM EST</td><td></td><td> </td> 04/10/2020 02:44:00 PM [facility] MRI BRAIN BRAIN STEM W/O &W/CONTRAST MATERIAL <td>MR B RAIN WITH AND WITHOUT CONTRAST [id number]</td><td>Routine</td><td>04/10/2020 2:44 PM EST</td><td></td><td> </td> 04/10/2020 02:44:00 PM [facility] BLOOD COUNT COMPLETE AUTO&AUTO DIFRNTL WBC COUNT <td>C BC AND DIFFERENTIAL</td><td>Routine</td><td>04/10/2020 3:25 AM EST</td><td></td><td> </td> 04/10/2020 03:25:00 AM [facility] BASIC METABOLIC PANEL CALCIUM TOTAL <td>BASIC METABOLI C PANEL</td><td>Routine</td><td>04/10/2020 3:25 AM EST</td><td></td><td> </td> 04/10/2020 03:25:00 AM [facility] GLUCOSE QUANTITATIVE BLOOD XCPT REAGENT STRIP <td>POCT GLUCOSE, DOCKED</td><td>Routine</td><td>04/09/2020 7:45 PM EST</td><td></td><td> </td> 04/09/2020 07:45:00 PM [facility] PROTHROMBIN TIME <td>PROTIME INR</td><td>Rout ine</td><td>04/09/2020 7:43 PM EST</td><td></td><td> </td> 04/09/2020 07:43:00 PM [facility] BLOOD COUNT COMPLETE AUTO&AUTO DIFRNTL WBC COUNT <td>C BC AND DIFFERENTIAL</td><td>Routine</td><td>04/09/2020 7:43 PM EST</td><td></td><td> </td> 04/09/2020 07:43:00 PM [facility] THYROID STIMULATING HORMONE TSH <td>TSH</td><td>Routin e</td><td>04/09/2020 7:43 PM EST</td><td></td><td> </td> 04/09/2020 07:43:00 PM [facility] HEMOGLOBIN GLYCOSYLATED A1C <td>HEMOGLOBIN A1C</td><td>Routine</td><td>04/09/2020 7:43 PM EST</td><td></td><td> </td> 04/09/2020 07:43:00 PM [facility] LIPID PANEL <td>LIPID PANEL</td><td>Rout ine</td><td>04/09/2020 7:43 PM EST</td><td></td><td> </td> 04/09/2020 07:43:00 PM [facility] COMPREHENSIVE METABOLIC PANEL <td>COMPREHENSIVE METABO LIC PANEL</td><td>Routine</td><td>04/09/2020 7:43 PM EST</td><td></td><td> </td> 04/09/2020 07:43:00 PM [facility] EKG 12-LEAD - CMAXX REPORT <td>EKG 12-LEAD - CMAXX REPORT</td><td></td><td>04/09/2020 7:25 PM EST</td><td></td><td></td> 04/09/2020 07:25:48 PM EST [facility] EKG 12-LEAD - CMAXX REPORT <td>EKG 12-LEAD - CMAXX REPORT</td><td></td><td>04/09/2020 7:25 PM EST</td><td></td><td></td> 04/09/2020 07:25:48 PM [facility] EKG 12-LEAD <td>EKG 12-LEAD</td><td>Rout ine</td><td>04/09/2020 7:25 PM EST</td><td></td><td></td> 04/09/2020 07:25:48 PM [facility] EKG 12-LEAD <td>EKG 12-LEAD</td><td>Rout ine</td><td>04/09/2020 7:25 PM EST</td><td></td><td> </td> 04/09/2020 07:25:48 PM [facility] US GUIDANCE NEEDLE PLACEMENT RS&I <td>IR US GUIDED NEE DLE PLACEMENT</td><td>Routine</td><td>01/06/2020 4:00 PM EST</td><td></td><td> </td> 01/06/2020 09:00:00 PM EST [facility] PROTHROMBIN TIME <td>PROTIME-INR</td><td>STAT </td><td>01/06/2020 11:52 AM EST</td><td></td><td> </td> 01/06/2020 04:52:00 PM EST [facility] BLOOD COUNT COMPLETE AUTO&AUTO DIFRNTL WBC COUNT <td>C BC AND DIFFERENTIAL</td><td>Routine</td><td>01/06/2020 6:23 AM EST</td><td></td><td> </td> 01/06/2020 11:23:00 AM EST [facility] MRI SPINAL CANAL LUMBAR W/O &W/CONTR MATRL <td>MRI LUM BAR SPINE W WO CONTRAST</td><td>Routine</td><td>01/05/2020 5:46 PM EST</td><td></td><td> </td> 01/05/2020 10:46:56 PM EST [facility] RADEX SPINE LUMBOSACRAL 2/3 VIEWS <td>XR LUMBAR SPINE AP AND LATERAL</td><td>Routine</td><td>01/05/2020 1:41 AM EST</td><td></td><td> </td> 01/05/2020 06:41:17 AM EST [facility] COVID/FLU AB/RSV PCR <td>COVID/FLU AB/RSV PCR</td ><td>STAT</td><td>01/04/2020 10:09 PM EST</td><td></td><td> </td> 01/05/2020 03:09:00 AM EST [facility] BLOOD COUNT COMPLETE AUTO&AUTO DIFRNTL WBC COUNT <td>C BC AND DIFFERENTIAL</td><td>STAT</td><td>01/04/2020 10:09 PM EST</td><td></td><td> </td> 01/05/2020 03:09:00 AM EST [facility] COMPREHENSIVE METABOLIC PANEL <td>COMPREHENSIVE METABO LIC PANEL</td><td>STAT</td><td>01/04/2020 10:09 PM EST</td><td></td><td> </td> 01/05/2020 03:09:00 AM EST [facility] Results ID Date Data Source [id number] 09/25/2020 12:45:00 PM EDT [facility] Name Value Range Interpretation Code Description Data Adriana rce(s) Supporting Document(s) SARS coronavirus 2 RNA [Presence] in Res piratory specimen by BINA with probe detection NEGATIVE [facility] This lab was ordered by [facility] a nd reported by [facility]. ID Date Data Source [id number] 07/23/2020 07:56:34 AM EDT [facility] Name Value Range Interpretation Code Description Data Adriana rce(s) Supporting Document(s) Progress Note [facility] UIOGSl5kYiDKVjTw37/PLOayHDHsr2DqYXknXQd4UJuuOUIkD1ViRMP0oZ3aLJA2VBoKKzHgPlNgQuB0 m [file] xDkELL59+plEXwJ/community health nursing director/qRBTotNr8Uq7IkG75EpxGX5m0ZZ0m4ev7ZAQ0+Hh0YeYp2YE74keJjAFGgD [file] AgICAgICAgICAgICAgICAgICAgICAgICAgICAgICAgICAgICAgICAgICAgICAgICAgICAgICAgICAgIC AgICAgICAgICAgICAgICAgICAgICAgICANCiAgICAg ICAgICAgICAgICAgICAgICAgICAgICAgICAgICAgICAgICAgICAgICAgICAgICAgICAgICAgICAgICAg ICAgICAgICAgICAgICAgICAgICAgICAgICAgICAgICAgICANCiAgICAgICAgICAgICAgICAgICAgICAg ICAgICAgICAgICAgICAgICAgICAgICAgICAgICAgIC AgICAgICAgICAgICAgICAgICAgICAgICAgICAgICAgICAgICAgICAgICAgICANCiAgICAgICAgICAgIC AgICAgICAgICAgICAgICAgICAgICAgICAgICAgICAgICAgICAgICAgICAgICAgICAgICAgICAgICAgIC AgICAgICAgICAgICAgICAgICAgICAgICAgICANCiAg ICAgICAgICAgICAgICAgICAgICAgICAgICAgICAgICAgICAgICAgICAgICAgICAgICAgICAgICAgICAg ICAgICAgICAgICAgICAgICAgICAgICAgICAgICAgICAgICAgICANCiAgICAgICAgICAgICAgICAgICAg ICAgICAgICAgICAgICAgICAgICAgICAgICAgICAgIC AgICAgICAgICAgICAgICAgICAgICAgICAgICAgICAgICAgICAgICAgICAgICAgICANCiAgICAgICAgIC AgICAgICAgICAgICAgICAgICAgICAgICAgICAgICAgICAgICAgICAgICAgICAgICAgICAgICAgICAgIC AgICAgICAgICAgICAgICAgICAgICAgICAgICAgICAN CiAgICAgICAgICAgICAgICAgICAgICAgICAgICAgICAgICAgICAgICAgICAgICAgICAgICAgICAgICAg ICAgICAgICAgICAgICAgICAgICAgICAgICAgICAgICAgICAgICAgICANCiAgICAgICAgICAgICAgICAg ICAgICAgICAgICAgICAgICAgICAgICAgICAgICAgIC AgICAgICAgICAgICAgICAgICAgICAgICAgICAgICAgICAgICAgICAgICAgICAgICAgICANCiAgICAgIC AgICAgICAgICAgICAgICAgICAgICAgICAgICAgICAgICAgICAgICAgICAgICAgICAgICAgICAgICAgIC AgICAgICAgICAgICAgICAgICAgICAgICAgICAgICAg ICANCjw/tJJsV9msxZGbmnD0M9ydBs2YQu0FDX5ya8HyJMKuZHrmbfQyYknTTuUdGPTrCtmAEil5DJiw UP6DgOKiI0BsE3EsHMcnNY7KSVSqGNOhrTLiNUAzFQAdMiL6WINkTTfcDB3JqDJgOUdxOEEdZFNbMeRd IFIgOSAwIFIgMTEgMCBSIDEzIDAgUiAxNSAwIFIgMT swTOPCBYZ6TJDgYmAhZXEeVARzWsGmVDSWFIH6EDVlMlEhUaGuETFyOfilWRKOUW7FOaUkW5PtoL88WO EzDQo+Qg7GGO1ix4FkWCv3FWNnAJ8mzz1VMNcKCmTsT9KyxoD6WTRtGHMrBg4EVGOmBMMbvDF9NZVvQY MQVlGaN5HygI33DKWVYp6+DQplbmRvYmoNCjUwIDAg u1LmZVg5LL7HUSIsEQd9uGEzKCEaO0Jyf6LsEz93UEEiChgbGVNee7LroSIEIWAgCHHihrJdRP9KEBG2 MMKzCTIuMtNjUNNoHtulCZXFDOnCUpNyU3Mxd0OoAoB9VMYaLtCsXNgjOSGrHaH3VC52cYrtOC0JOMFy KQDcBY73VAZ2NSBaIh0RHo0KRkBrOB6ssn7NJEQiUN AgZuvXGap0ESnyFA0BwJAlN7RowGMag4uYLbLfE3NLPAY5SHYlWu0SNJBqXoEpHBFvCWxvDE3yHAUrMZ ZEcRxmstG0VN7ZNN7fdnDmGW0BReIkRz5xRu9HVzRlR3OvL6LcYLNaXYZRQRsyZG0LDDodGP5fBX1Ur7 HNwQHunU0hxx2MDEYzHYGlLvzwzu8YCcsfE2S7bMgy WZBdRXusNRKSXPueKR9VFRCyKWK8PJX6TOMiZKOXAnJcO33ySX4ZZ9Gre44yVeL2YTHxFnJmUCsaGY60 iQfrphChuILixKhfJT2LFh3+LUemkmVqTsxKHuldXBDHQzDdMMXGHoYhLWJtVWOyLGHrZeP3YuAtVx5B OOYgXYPdCWWtLxCuJKGbLXOoNOxwFKNvMMKjHMC1BP BuGNHuUE9UBdKjKWMtJPX9FRsqVQBeBEFlyl9WRINxQTZmAPH3KqKxVPCaUCEoXGqqZQOyPMMsRCu0HF UfCUBzNR4LGlYeACAeLMRpLpgbYKBhXPCxjn3WYVLeOYUfAnM0EBNkXUZdUIOhOKjgIQDdJHT1MyU4QT FcXSPrFS4MRtFvUYOsKKgzBqWmRRTaSVWykh3OOLJq EHOqVVThRESqFJRmOCYbNGrlYHBbOAExHYJ4FICeBQGhDF9NEuNeZFGfWUF2ZbYcUSWzACVmgy4MDROf ICKhQuH0RDOwQODcCXTrEHypKCIeIXWxTQP6HJAvVDAmDV5CLqWnPOPdLTIxOAXrYYJtFHJebz7SBHOi FKTlZjCaBONzHRIdNTZoJZtqLRLlSOU4Bev6BLGtFW JtJW1VWvNkUMPaUIx4GUYlCSHeOFVcbw6NUJWmTAVsFGS6PZJuIOLkXMLbFTbjGESpMVOhEpcyINLvDP EnNP5MDhTvPEEjEgL7MpBbAMLjLDFrft6QVJMhCBYsYwPoTASkUBSoFUWkSDloFYIyLLF7DSk7JKDxUU XhRP3PIdBtBEWmUfEyNMIqYPSxGIVjnx6QQBSnVVAp QBG1BORsIEUjHIZtWAghHJXhQGH6GyW1QJQpKWHzPM9FScWeJVYlKgF2NMezWFXeWLGlju0YFYLvWZAh LDi8UfZpMYVlRVWvEBxjIRJhEKZ9BzV6AYFoKVEbTA7BNbUzYTRmVtN2ReDuOMTeZQJawa2WWOBfNWLt CqWfPQGvHHKyUUCsGZcpRYYpXIC8GuQ6BQLtHVYrXA 9DLkHlORDvRcH2IOUoPNMrZDAvpo0DPENuUVMkToo2JQRjMFZuGXPyUNmxROFuITQ7SVXpPJAhPPGoLP 2IAvYbXRJsJtucFDRpIYWfAPMvwd2YHRWeMIQ8FTT0LSScGIXgCOLxRTpvXOEjKXT9CAO8QEHsSUIqBK 4QNsHxPWDgFIGfSZMhYUMhUXEkyq0ITMDePQN4NDQ0 RBXrLNDbIWGdVHlyDBWkGBIxYTWqSTZvJZFsEP2OTsGhJVHyADT5OACvQINdQKBzfb6NVEGyGFN3CCDg DSJeHSUrKIIhKTfcCHJoKVGgBVI5WBGfYMZyYC7DLmKbOBJjYHN0HORqXPDbFJVwgq1IQHYkEOA9Oweh RKQjSAQbDCEuDYoxGPPcVDZgKZM5YVGySMSxCZ2UKs GhTMCcCFO7IYwxMFKoORTdbd4GGAUtESQ5ESQ6OYVuQUHyCQIbAHogUVPmAFL9DRFvVJLxUXDcLW3GNw TkQAOeIQYtBRWmDYSeVYMpkw9MxZVrxJdijc5IBElCAy1EkCbfUGDtMIenLa2soEJ7ATRkMVJSUe0Wzs LhORJvBEWVSMenYMXqOBU6KYQhUBRoJVJ1GGCpATUe NCPfVpWqJDU4F2F7ZzLmUdA6MYC1RPSiUyH9IxalSmJ9XFX3ArElLEYpPPrcSuK1G8Q+YV9aYVp+Pg0K c2OpgiM6fvKbCHr5AFVeJs9KBGBRT6BUHk== ID Date Data Source [id number] 05/20/2020 07:04:00 PM EDT [facility] Name Value Range Interpretation Code Description Data Adriana rce(s) Supporting Document(s) SARS-CoV-2 (COVID 19) NEGATIVE - SARS-CoV-2 (COVID19) [facility] This lab was ordered by [facility] a nd reported by [facility]. ID Date Data Source [id number] 05/08/2020 05:57:13 PM EDT [facility] Name Value Range Interpretation Code Description Data Adriana rce(s) Supporting Document(s) Progress Note [facility] PKBROb6pXaKAFjTj06/LUKurUMGze2EaNBfjWZc6ECikVGOaF3QrBIZ3fA1vFBE5GCpYUqDoRuByCCPs lbm [file] ICAgICAgICAgICAgICAgICAgICAgICAgICAgICAgICAgICAgICAgICAgICAgICAgICAgICAgICAgICAg UCXxJGBkFYZjOFQlUQ9QEPTkKEYpVSUuZNRnDCLtHH AgICAgICAgICAgICAgICAgICAgICAgICAgICAgICAgICAgICAgICAgICAgICAgICAgICAgICAgICAgIC OdQWUiAMBvZZCsDBWtPUJnHAHeOBWyQZ1MVCOhGIJkOVAbXYSoGKVtWXOiOWFnPYKxBQFbLUShYQJsDI AgICAgICAgICAgICAgICAgICAgICAgICAgICAgICAg ELKtSXAvGRQfITVtTFAxXGBdCWJaFLBdYRTvLZXyZVBlTZ0XWUFdOGZqNBXxSRTkGTUlSCRnTKNeGOHg ICAgICAgICAgICAgICAgICAgICAgICAgICAgICAgICAgICAgICAgICAgICAgICAgICAgICAgICAgICAg LWBiXOIrQYZbYAQoUTRqJJ5NVJEjEVKeLYZvVGNiUF AgICAgICAgICAgICAgICAgICAgICAgICAgICAgICAgICAgICAgICAgICAgICAgICAgICAgICAgICAgIC OiPKZgNUZlKZZbSVXcJFOrOXCyUWYrIWUrPP2DOBZvNDIfXEMwCSWsLOKdPHZqWNGzHCMjZYGpYUKeDO AgICAgICAgICAgICAgICAgICAgICAgICAgICAgICAg XNRwJMOeIBSpOXVaIMNkMFWmQFApECGdVOWrNDJtZNJbDTQfTC3QSAMpDDDgLTDkZRDcTSDuUAUjJUAm ICAgICAgICAgICAgICAgICAgICAgICAgICAgICAgICAgICAgICAgICAgICAgICAgICAgICAgICAgICAg WHZpNRWnMAGdCCBwEOArTRBwXJ4FCWCyXVJmVNUvLF AgICAgICAgICAgICAgICAgICAgICAgICAgICAgICAgICAgICAgICAgICAgICAgICAgICAgICAgICAgIC RaIGYqIECbYJIiEKScWOYsXGCkCFIaSZScPCFrOU3EWXFjHYVrEOXqBRKeKQDeAKNgUFRdERPzLUYiIQ AgICAgICAgICAgICAgICAgICAgICAgICAgICAgICAg ZUWpHIAuBKXdLJWmYVJiSUQuOQTsDCZzWGMcIUBxBDNgGXHbOFSnID4HGAHaADIcDTWzRWAwRKVaRTPv ICAgICAgICAgICAgICAgICAgICAgICAgICAgICAgICAgICAgICAgICAgICAgICAgICAgICAgICAgICAg TFYtRLVrRQYyZONnOIMaOJUoDSZeHZ7CYP18cIVef3 C1CESfNO2cjvz/Le3ISTjwydJroZMyCU5DCcEiZI6ydl3UCpQdQZ4rai5JQDqQYzKqX2A7zTDjPFMpMR GQFgLqZ83bWIkhNa88ROjjXDLgAnIsVFg3Xl7VOgPlE4ltBLPxBpC8AYReLnX6XXQyRwT8AFDpYhAbAU NmTDAiGXVrBLKSIEX2LIPgKxKqMuWbDOUzOFykYQWY AYIrSFPnWlBmKfUcJMExNeZuAGSJKZY6IRJfWoVcJERqHYFtRxDeURNNDL4GMcLtO8BwwH46WBW1AOs+ Ti6SCR7wh2UhKEi0TJNqAS0pme6KTMaYSuQrX1KrrcP7BUJmBZCgNa7XFNBhHTHoxXJ1TsTtFJCKTdWx T7QlbF92UWLXZr9+PSguxrDkMlgHWqWlNMDyb1YmSM n2IH2XKXLkYAz8rXHyNCHeZ0Anv7UpCy90RVXoShgxG08jWUbsXUDLR5ucDCajPS0GQMP0TLZhVoWtGm HoFWUvYrtdOKMWABaBTdZjS9Zdv6MrClW6LDZjKgAnYAgjFDGtNnL3OY04gSujDZ5LIWOuGJGfXI09DB MtIHJiGu5OAx7TCaAkND4kjw4PUMSgFRVuQuaUXkc0 TCrrEL1ArGDzQ9FdbYWmg8nCZkUmS4BIQAJ9GHIfGr9UDCQfTsXdXEFsWKbxIZ3uMYJiVQDSqMwxhmT4 SK2NCQ6oytFuHX2WImZdXm5kAp5JOzAoY5FwB8LkLFDjVNMRGEkrAH5JVIztWE7cLD5Ld0LUdROnzR9y uq8KJMRzWSPnYejzgc1VBogoR7X1fBkkIQHtWXQcJK XLIKfcHV2PKPQwPOB2HOH3YFXqFPSFLlIaR80kYZ0BE7Xec19bDlW0HFVaShHxWAodHA11pWpavlDttJ FxsRjhSD5OAa7+ZEwfbrXdOnaIRstvUBEGRjDyLXERFuNzGSMuMTTmWPUsDwK8EqSkUi3BPNPnPORsJY XxJlUeLNFuNDEfLFvwGMXjOHPwZET9UHKgTRWqJY3X PzZsJUMiZQR5CEegLIRhUZNdlr2YXCTaZNJeQMO0WoZpDOIkOXLxGZxmAEFeJRNxUvYfRTUrGGWhYV2G ZjCaJJOwAFF1QCIrWVOkFTVhzn4RJOScKORmCBV1BqUdPGItWOHdSQlaSVXmLFK8RmuuGXLnBVDxRM0P LiCcPXBjSLt8VAFjEELqLOHghy7QTVJrPVQiFyj9Ka GcKCCnZIRuRUqkQMNzGJZ7GFJ3PCOvYLAiCG6LGbAaKXReCDFoSPHmTQTcJDQdlg3GDHCuPGFfJgA0KQ NuEFRhIMUtRRpeWISrBUJcJcDhIBKcRKXpMW0GXrLxMQVmOGY7LAMsRCEaMCFcot7FRZQoWYThYKGxIB NpRKLuXYBhPLfgENUdGMB6Zlp8KZNtTFExQM4ABsJf JTIzKBB0UPMqYFIjSFOdax1OUGHuLXFkGXt5TtJxDSYyPUVcVBolJFFoQOX7YBDzMUZiEWKaLH2NAaFs REVqMcToIaUbNXTzZUEjvb1UUGVqIBSsTEFaTTXhGPKhAEAsISgdHHOpVOFqPELsANUsOFBvXP5RCwBm XVKuWcU0RYWfNIEeFUTfhg9HYMFuHOTiNOxdNZCuSK RnKUAgGPqvWNCpSDA9UIZfZSWoQQFfYW2VUtKxSSBtIdl1FikpCHSlTGPwtj7OWNWqPLGfTBasNbKkRU LdKOLnTHasWOJgKUAwGod9ZBFuJVTyFS2VEtYkQKJzBaG3AMHyTUErUVGuty3JNYJpTNRdULQ5QcZbOS XzDDPeKGdeLNRbBIE8Gxf9XZKpQXTvVC6DWbQxECTx DnJkCVfvVXPvFEZcuv1FKVVwFCZcOYJ7ZvMgNSBrHHStQXulXRJdJTF9OtO2JOKaQEYwCT6GWzDlYCAh HrH1NFqwNTBqRTGjmf1UPQAnHTDfQes0PPBtBBWgEKWzYAlsGQJhSIX4JWz5FCElBCRqYC1YNeSuZQIt ETr0TWxtFHRpDAUfui7TTNZxFIU8CWsuPjWcEZHeCE MmAVgsEBUxUST8HIKpKKDdACUtVB3RKpUuDMWmDButZKAzZTIyWKBvqm8EPJVrAPH0PXXkAZTlRFOcSQ ReFUjePRUmOFFdOtfjDKCcEORkMM0FXdLzGZLvOVH5InBdNRKxQXNwou8HQYBiWCX1EAtjWQMdBGYvRK HcGPpvDEVqJWHwXli3YMMuJALqNW6IQoBtENSvBYH8 OrOjOTHnPKOctn4NXVFlNWV7FgV2MYOnCBVnAYXfSZmfJXZoLEGgPVb2FXDdXSRnEF8JVtDuPWUdVNNw SALhQKVtSFXmbk2CEXXrQMA4WHT9UsOxQGRzQSYmCJnePOKtHNW9ZjN7GDQkBZPcZL5TNvUwWPtzHEUC Yck4HHxpW3t9AZN6NX6UF0Zqh8ZhCCHdAAXUHEffUD 6bbkCjZEPtOs1RD2hUTde3DPHqSQGcBEtnXJf0JSy7XvY5LbW8B2TlMJQgRgF9Uz1hUUU8FLGnGSO4NL BvBrJaWZSnVLhhSivoCaP8XITiNbN8PaPmEF5XPd1IPhC1MXD1oXHwCk5RPEJ0EciXWlAxVE7FGRa= ID Date Data Source [id number] 04/24/2020 06:39:00 PM EDT [facility] Name Value Range Interpretation Code Description Data Adriana rce(s) Supporting Document(s) SARS coronavirus 2 RNA [Presence] in Res piratory specimen by BINA with probe detection NEGATIVE [facility] This lab was ordered by [facility] a nd reported by [facility]. ID Date Data Source [id number] 04/20/2020 09:59:00 [place] [address] RESPIRATORY CARE REPORT ==== ---------NAME------- NUMBER SEX AGE ADMIT DISC. XRAY# F/C TYPEMURPMAYELIN DELONTE Meyer [id number] M 34 04/19/20 04/19/20 [id number] X6B E/R DATE OF : 1985 M/R# [id number] #: [id number] TR-08 LOCATION: EMERGENCY DEPT EKG 00589 COMP LETE:04/19/20 23:07 AJ [id number] PHYSICIAN: IVAN KIRK Name Value Range Interpretation Code Description Data Adriana rce(s) Supporting Document(s) ID Date Data Source [id number] 04/20/2020 10:11:00 AM EDT [facility] [address] [place] [address] PHONE: [phone] FAX: [phone] Name .................. : JAUN Meyer Acct Number.................. : [id number] ROOM. ................. : TR-08 MR Number ................... : [id number] Stay type ............. : E/R Discharge Date......... ... : 04/19/20 Admit Date ......... : 04/19/20 Admit Phys .................... : IVAN KIRK Date of ....... : 1985 Family Phys ................... : JOHNSONST WANGI Phone .................. : [phone] Age ................................ : 34 Film# .................. .:[id number] Sex ................................. : M Unsigned transcriptions are preliminary reports and do not represent a medical or legal document CT HEAD W/O CONTRAST [id number] COMPLETE:04/19/20 21:44 KJE 6321 Reason(s): Altered Mental Status CT OF THE HEAD WITHOUT CONTRAST: INDICATION: Altered mental status. FINDINGS: No intra-axial or extra-axial collections of fluid. Ventricles and sulci unremarkable. No midline shift or mass effect. Visualized paranasal sinuses and mastoid air cells unremarkable. IMPRESSION: No acute intracranial process. While performing the above CT examination, radiation dose reduction was accomplished utilizing automated exposure control, adjusting of the mA and kV based on the patient's body size and/or the use of imperative reconstructive techniques. CT dose: 854.6 mGycm Electronically Reviewed and Signed By Maninder Luis M.D. , 04/20/20 10:11, [facility] Transcribe Initials: MELANIE , Transcribe Date: 04/20/20 01:16, Dictation Date: Copy for: EMERGENCY DEPT via modem Copy for: 710 MED REC DISCHARGED Page 1 of 1 Name Value Range Interpretation Code Description Data Adriana rce(s) Supporting Document(s) ID Date Data Source [id number] 04/20/2020 10:10:00 [place] [address] PHONE: [phone] FAX: [phone] Name .................. : JAUN Meyer Acct Number.................. : [id number] ROOM. ................. : TR-08 Number ................... : [id number] Stay type ............. : E/R Discharge Date......... ... : Admit Date ......... : 04/19/20 Admit Phys .................... : IVAN KIRK Date of ....... : 1985 Family Phys ................... : ALEX KEANE Phone .................. : [phone] Age ................................ : 34 Film# .................. .:[id number] Sex ................................. : M Unsigned transcriptions are preliminary reports and do not represent a medical or legal document CHEST PORTABLE [id number] COMPLETE:04/19/20 21:44 KJE 6320 Reason(s): overdose, AMS PORTABLE CHEST X-RAY: INDICATION: Overdose. FINDINGS: The cardiac and mediastinal silhouettes appear normal and the lungs are clear. The bones and soft tissues are normal. The upper abdomen is un remarkable. IMPRESSION: No acute disease identifiable. Electronically Reviewed and Signed By Maninder Luis M.D. , 04/20/20 10:10, [facility] Transcribe Initials: DZ , Transcribe Date: 04/19/20 21:54, Dictation Date: Copy for: EMERGENCY DEPT via modem Copy for: 710 MED REC DISCHARGED Page 1 of 1 Name Value Range Interpretation Code Description Data Adriana rce(s) Supporting Document(s) ID Date Data Source [id number] 04/20/2020 09:09:00 AM EDT [facility] [address] [place] [address] PHONE: [phone] FAX: [phone] Name .................. : JAUN Meyer Acct Number.................. : [id number] ROOM. ................. : MR Number ................... : [id number] Stay type ............. : O/P Discharge Date......... ... : 04/16/20 Admit Date ......... : 04/16/20 Admit Phys .................... : POLY ZABALA Date of ....... : 1985 Family Phys ................... : ALEX KEANE Phone .................. : [phone] Age ................................ : 34 Film# .................. .:[id number] Sex ................................. : M Unsigned transcriptions are preliminary reports and do not represent a medical or legal document DOPPLER UNILATERAL VENOUS [id number] COMPLETE:04/16/20 18:23 BAW 6177 (REASON FOR PROCESS: L CALF PAIN, RECENTLY HOSPITALIZED R/O DVT LEFT LOWER EXTREMITY VENOUS DOPPLER ULTRASOUND: COMPARISON: None available. FINDINGS: Duplex color sonography of the major deep venous system of the left lower extremity does not demonstrate a DVT. Flow and compressibility are demonstrated in the common femoral, femoral and popliteal veins. IMPRESSION: No evidence of a DVT demonstrated on the current study. Electronically Reviewed and Signed By Henry Tobin MD , 04/20/20 09:09, [facility] Transcribe Initials: MELANIE , Transcribe Date: 04/17/20 02:11, Dictation Date: Copy for: POLY ADHIKARI via fax Copy for: [address] [place] [address] REC Page 1 of 1 Name Value Range Interpretation Code Description Data Adriana rce(s) Supporting Document(s) ID Date Data Source [id number] 04/19/2020 08:39:00 PM EDT [facility] 1 OrderSheet [facility] Emergency Department [address] [place] [address] Phone #: ext- [phone] 04/19/2020 20:24 Patient: DELONTE ZAMORANO Sex: M : 1985 Age: 34yWEIGHT:99.7 kg HEIGHT:72 inches BMI:29.8ALLERGIES: Gabapentin, TorodalCHIEF COMPLAINT: weakness, impaired speech, walkingDIAGNOSIS: Anxiety, Poisoning by drug AND/OR medicinal substance, Drug abuseLAB ORDERSOrder Description Priority Entered Acknowledged InitialedCBC w Diff STAT 21:04/19/2020 21:06 Ivan Novak Riccardo Katelyn M.D.;CMP STAT 21:04/19/2020 21:06 Ivan Novak Riccardo Katelyn M.D.;Lipase STAT 21:04/19/2020 21:06 Ivan Novak Riccardo Katelyn M.D.;PT/PTT STAT 21:04/19/2020 21:06 Ivan Novak Riccardo Katelyn M.D.;Troponin-T STAT 21:04/19/2020 21:06 Ivan Noavk Riccardo Katelyn M.D.;TSH STAT 21:04/19/2020 21:06 Ivan Novak Riccardo Katelyn M.D.;Magnesium STAT 21:04/19/2020 21:06 Ivan Novak Riccardo Katelyn M.D.;ETOH STAT 21:04/19/2020 21:06 Ivan Novak Riccardo Katelyn M.D.;Acetaminophen STAT 21:04/19/2020 21:06 Angel Novak Riccardo Katelyn M.D.;Salicylate Level STAT 21:01 04/19/2020 21:06 Ivan Novak Riccardo Katelyn M.D.;Urinalysis (Clean STAT 21:04/19/2020 Ack'd: 21:21 2 OrderSheet [facility] Emergency Department [address] [place] [address] Phone #: [phone] gih- [phone] 04/19/2020 20:24 Patient: DELONTE ZAMORANO Sex: M : 1985 Age: 34yCatch) Chapito Love Katelyn M.D.;Urine Drug Screen STAT 21:04/19/2020 Ack'd: 21:21 Chapito Love Katelyn M.D.;COVID-19 CAH (Not STAT 21:04/19/2020 Ack'd: 21:06 21:07 Scarlet,Symptomatic as Chapito Love Katelyn KatelynDefined by CDC) [place];(04/19/2020) (NotFirst Test) (NotHospitalized) (Not) (NotResident inCongregate CareSetting) (NotEmployed inHealthcare Setting)Venous Blood Gas STAT 21:50 04/19/2020 22:27 Ivan Novak Riccardo Katelyn M.D.;Lactic Acid STAT 21:50 04/19/2020 22:27 Ivan Noavk Riccardo Katelyn M.D.;DIAGNOSTIC STUDY ORDERSOrder Description Priority Entered Acknowledged InitialedChest Portable 1 STAT 21:01 04/19/2020 Ack'd: 21:06 22:27 Scarlet,View Chapito Love Katelyn Katelyn(Oxygen?(No)) [place]; Reason for Study: overdose, AMSCT Head W/O Cont STAT 21:04/19/2020 Ack'd: 21:06 22:27 Scarlet,(Oxygen?(No)) Chapito Love Katelyn Katelyn M.D.; Reason for Study: Altered Mental Stat usMEDICATION/IV/DRIP/FLUID ORDERSOrder Description Priority Entered Acknowledged InitialedNS IV 500 mL 21:04/19/2020 Ack'd: 21:06 21:13 Veto,Bolus: : Bolus 500 Chapito Love Katelyn Sarah R.N.mL, then 125 mL/hr M.D.;(X1)Lopressor IVP 5 mg 21:04/19/2020 Ack'd: 21: 21:14 Veto(HIGH ALERT Chapito Love Katelyn Sarah R.NMorris 3 OrderSheet [facility] Emergency Department [address] [place] [address] Phone #: ext- [phone] 04/19/2020 20:24 ----- Patient: DELONTE ZAMORANO Sex: M : 1985 Age: 34yMEDICATION) M.D.;GENERAL ORDERSOrder Description Priority Entered Acknowledged InitialedBlood Pressure 21:04/19/2020 21:05 Veto,Monitor Chapito LoveNMorris MKayode;Manager Terminal 21:04/19/2020 21:05 Veto(continuous) Chapito Love R.N., M.D.;EKG 21:04/19/2020 21:05 Ivan Laws Riccardo Sarah R.N. MKayode;NPO 21:04/19/2020 21:05 Ivan Laws Riccardo Sarah R.N. M.D.;Obtain Old EKG 21:04/19/2020 21:05 Ivan Laws Riccardo Sarah R.N. M.D.;Obtain Old Records 21:04/19/2020 21:05 Ivan Laws Riccardo Sarah R.N. M.D.;Oxygen titrate to 21:04/19/2020 21:05 Veto,92% Chapito Love R.N., M.D.;Pulse oximeter 21:04/19/2020 21:05 Veto,(Continuous) Chapito Love R.N., M.D.;Saline Lock 21:04/19/2020 21:05 Ivan Laws Riccardo Sarah R.N. M.D.;Vitals 21:04/19/2020 21:05 Ivan Laws Riccardo Sarah R.N. M.D.;[Electronically signed by Chapito Love M.D. (04:31 04/20/2020)][Electronically signed by Roxana Laws R.N. (06:30 04/20/2020)][Electronically locked by Roxana Laws R.N. (06:30 04/20/2020)] Name Value Range Interpretation Code Description Data Adriana rce(s) Supporting Document(s) ID Date Data Source [id number] 04/19/2020 08:39:00 PM EDT [facility] 1 Medication Reconciliation Report [facility] Emergency Department [address] [place] [address] Phone #: ext- [phone] 04/19/2020 20:24 Patient: DELONTE ZAMORANO Sex: M : 1985 Age: 34yWeight: 99.7 kgHeight/Length: 72 in.BMI: 29.8ALLERGIES: Gabapentin, TorodalThe patient's Home Medications are listed below:CONTINUE TAKING THE FOLLOWING MEDICATIONS: Lisinopril Oral (10 mg), daily Venlafaxine HCl ER Oral (37.5 mg) 1 tablet, dailyThe source(s) of the original Home Med ication information:Not obtained.The following Medications were given to the patient in the Emergency Department:NS [IV] IV Fluids bolus 0, then 500 mL/hr, administered: 21:12 04/19/2020opressor [IVP] IVP 5 mg, administered: 21:14 04/19/2020The following Medications were prescribed to the patient:None. Name Value Range Interpretation Code Description Data Adriana rce(s) Supporting Document(s) ID Date Data Source [id number] 04/19/2020 08:39:00 PM EDT [facility] 1 Medication Administration Record [facility] Emergency Department [address] [place] [address] Phone #: ext- [phone] 04/19/2020 20:24 Patient: DELONTE ZAMORANO Sex: M : 1985 Age: 34yWeight: 99.7 kgHeight/Length: 72 inBMI: 29.8ALLERGIES : Gabapentin, Torodal Date/Time Medication Administered Medication OrderedStart NS [IV] NS IV 500 mL Bolus: : Bolus 73427:12 04/19/2020 Dose: IV Fluids mL, then 125 mL/hr (X1)Roxana Laws R.N. Rate: 500 mL/hr over 1 hour(s)---- Dispensed: 1000 mL bagStop Site: #1 right AC22:45 04/19/2020Roxana Laws R.N.Given LOPRESSOR [IVP] (METOPROLOL Lopressor IVP 5 mg (HIGH ALERT21:14 04/19/2020 TARTRATE) MEDICATION)Roxana Laws R.N. Dose: 5 mg IVP Site: #1 right AC Name Value Range Interpretation Code Description Data Adriana rce(s) Supporting Document(s) ID Date Data Source [id number] 04/19/2020 08:39:00 PM EDT [facility] 1 General Instructions [facility] Emergency Department [address] [place] [address] Phone #: ext- [phone] 04/19/2020 20:24 Patient: DELONTE ZAMORANO Sex: Betsy : 1985 Age: 34yMarijuana abuse with intoxication. 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 No alcohol.Your Current Medications: Your current home medications have been reviewed.CONTINUE TAKING THE FOLLOWING MEDICATIONS:Lisinopril Oral : Tablet 10 mg, daily.Venlafaxine HCl ER Oral : Tablet Extended Release 24 Hour 37.5 mg, 1 tablet daily.Follow-up:Return to the emergency department as needed. Follow up with your healthcare provider in two dayseven if well. Call for an appointment. Reason for referral: evaluation and treatment. ADDITIONAL INFORMATIONAnxiety ReactionAnxiety is the feeling we all get when we think something bad might happen. It is a normal responseto stress and usually causes only a mild reaction. When anxiety becomes more severe, itcan interfere with daily life. In some cases, you may not even be aware of what it is you're anxiousabout. There may also be a genetic link or it may be a learned behavior in the home.Both psychological and physical triggers cause stress reaction. It's often a response to fear oremotional stress, real or imagined. This stress may come from home, family, work, or socialrelationships.During an anxiety reaction, you may feel: Helpless Nervous 2 General Instructions [facility] Emergency Department [address] [place] [address] Phone #: ext- [phone] 04/19/2020 20:24 [id number] Sex[facility] : 1985 Age: 34y Depressed IrritableYour body may show signs of anxiety in many ways. You may experience: Dry mouth Shakiness Dizziness Weakness Trouble breathing Breathing fast (hyperventilating) Chest pressure Sweating Headache Nausea Diarrhea Tiredness Inability to sleep Sexual problemsHome care Try to locate the sources of stress in your life. They may not be obvious. These may include: o Daily hassles of life (such as traffic jams, missed appointments, or car troubles) o Major life changes, both good (new baby or job promotion) and bad (loss of job or loss of loved one) o Overload: feeling that you have too many responsibilities and can't take care of all of them at once o Feeling helpless or feeling that your problems are beyond what you're able to solve Notice how your body reacts to stress. Learn to listen to your body signals. This will help you take action before the stress becomes severe. 3 General Instructions [facility] Emergency Department [address] [place] [address] Phone #: ext- [phone] 04/19/2020 20:24 Patient: DELONTE ZAMORANO Sex: M : 1985 Age: 34y When you can, do something about the source of your stress. (Avoid hassles, limit the amount of change that happens in your life at one time and take a break when you feel overloaded). Unfortunately, many stressful situations can't be avoided. It is necessary to learn how to better manage stress. There are many proven methods that will reduce your anxiety. These include simple things like exercise, good nutrition, and adequate rest. Also, there are certain techniques that are helpful: o Relaxation o Breathing exercises o Visualization o Biofeedback o MeditationFor more information about this, consult your healthcare provider or go to a local bookstore nicol the many books and tapes available on this subject.Follow-up careIf you feel that your anxiety is not responding to self- help measures, contact your healthcare provideror make an appointment with a counselor. You may need short-term psychological counseling andtemporary medicine to help you manage stress.Call 911Call 911 if any of these happen: Trouble breathing Confusion Drowsiness or trouble wakening Fainting or loss of consciousness Rapid heart rate Seizure New chest pain that becomes more severe, lasts longer, or spreads into your shoulder, arm, neck, jaw, or backWhen to seek medical advice 4 General Instructions [facility] Emergency Department [address] [place] [address] Phone #: ext- [phone] 04/19/2020 20:24 Patient: DELONTE ZAMORANO Sex: Betsy : 1985 Age: 34yCall your healthcare provider right away if any of these happen: Your symptoms get worse Severe headache not relieved by rest and mild pain reliever [id number] [employer]. [address] [place] [address]. All rights reserved. This information is not intended as asubstitute for professional medical care. Always follow your healthcare professional's instructions.Marijuana AbuseMarijuana is the most widely used illegal drug in the [place] Recently, it became legal for recreationaland medicinal use in certain states. It is called by various names such as pot, weed, blunts, grass,reefer, ganja, hash, or hashish. It is usually smoked, but it can be mixed with foods or brewed as atea. Recently a practice known as "dabbing" or "smoking wax" has become popular. This meanssmoking highly concentrated extracts of the marijuana plant. The result is more side effects.Sometimes, marijuana can be sold with PCP (regine dust) or amphetamine mixed in it. These drugscan cause other harmful side effects.Marijuana can cause the following effects: Changes in mood, such as stimulated, happy, drowsy, depressed, or paranoid Visions (hallucinations) Increased heart rate and blood pressure Red eyes Increased appetite Time distortion, trouble concentrating, or memory problems Lung damage. This is similar to cigarettes with chronic cough, wheezing, frequent colds, and bronchitis. Rarely, collapse of the lung (pneumothorax) Decreased sperm count Dizziness, vertigo, and possibly slurred speech Vomiting. Even though marijuana is used to treat nausea and vomiting, some chronic daily users have the opposite effect. They vomit uncontrollably for long periods of time (cannabinoid hyperemesis syndrome).You can become psychologically dependent on marijuana. That means the craving to use the drug isemotional or psychological rather than from physical withdrawal. 5 General Instructions [facility] Emergency Department [address] [place] [address] Phone #: ext- [phone] 04/19/2020 20:24 Patient: DELONTE ZAMORANO ct#: [id number] Sex: Betsy : 1985 Age: 34yIs marijuana running your life?Here are some of the signs: Relying on marijuana to feel good, forget problems, deal with stress or to relax Wanting to be alone most of the time or only with others who use drugs Losing interest in things that used to be important Changes in school or job performance or attendance Spending a lot of time thinking about how to get marijuana Stealing or selling your things so you can buy marijuana Unable to stop using even though you may want to quit Increasing anxiety, anger, or depression Sleeping too much, or changes in eating habits (weight loss or gain) Needing to use more to get the same effectHome careThese suggestions will help you manage marijuana abuse: Once you have become addicted to any drug, quitting is hard to do. Most people find they can't quit without help. So don't try to do this alone. Talk to someone you trust who can support you. Seek p rofessional help. Stay away from people and places where drugs are used. That only increases the temptation to use.Follow-up careFollow up with your healthcare provider, or as advised.For more information or a referral to a treatment center in your area, contact: Your local mental health center or the National Alcohol and Substance Abuse Information Center: 596.353.8271 or www.[employer]IMED National Douglas on Alcoholism and Drug Dependence: 337.904.5078 or www.ncadd.org Marijuana Anonymous: 137.152.8146 or www.marijuana-anonymous.orgWhen to seek medical advice 6 General Instructions [facility] Emergency Department [address] [place] [address] Phone #: ext- [phone] 04/19/2020 20:24 Patient: DELONTE ZAMORANO Sex: Betsy : 1985 Age: 34yCall your healthcare provider right away if any of these occur: You feel extreme depression, fear, anxiety, or anger toward yourself or others. You feel out of control. You feel that you may try to harm yourself or another. You have chest pain or shortness of breath. 1230-1865 [employer]. [address] [place] [address]. All rights reserved. This information is not intended as asubstitute for professional medical care. Always follow your healthcare professional's instructions.Drug AbuseUse and abuse of drugs or medicines may lead to addiction or dependence. Illegal drugs includemarijuana, amphetamines (speed, crank), cocaine, heroin, MDMA, ecstasy, bath salts, PCP,mescaline, and LSD. Medicines include prescription medicines, sedatives, and sleeping pills. Onceaddiction or dependence happens, you are at greater risk for any of the following.Social and personal problems Craving for the drug and not able to stop using even though you think you want to stop (psychological addiction) Drug withdrawal symptoms if you stop taking the drug (physical dependence) Loss of job or your family Arrest, conviction, and penitentiary sentence for possession of an illegal substance or for driving under the influenceHealth problems Strokes, heart attacks, and kidney failure Accidental injuries to yourself or others while you are under the influence of the drug (in a car or at home) HIV infection. This is a much greater risk if you use IV drugs. Skin infections Other sexually transmitted infections (STIs) such as herpes, chlamydia, and gonorrhea Severe and fatal infection of the heart valves if you use IV drugs Hepatitis B or C 7 General Instructions [facility] Emergency Department [address] [place] [address] Phone #: ext- [phone] 04/19/2020 20:24 Patient: DELONTE ZAMORANO Sex: Betsy : 1985 Age: 34y [facility]ale [facility] hospitalThe following suggestions can help you care for yourself at home: Admit you have a drug problem. Ask for help from your family and close friends. Seek professional help. This could be one-on-one therapy or counseling. There are also outpatient, inpatient, and residential drug treatment programs. Join a self- help group for drug abuse. Stay away from friends who abuse drugs or tempt you to continue abusing drugs. Eat a balanced diet and start a regular exercise program.Follow-up careFollow up with your healthcare provider, or as advised. Contact one of the resources below for help: National Douglas on Alcoholism and Drug Dependence, www.ncadd.org, Narcotics Anonymous, www.na.org, National Alcohol and Substance Abuse Information Center, www.addictioncareEataly Net.SENSIMED, . This center can refer you to a treatment program.Call [phone] if any of the following occur: Seizure Hard time breathing or slow, irregular breathing Chest pain Sudden weakness on one side of your body or sudden trouble speaking Very drowsy or trouble awakening Fainting or loss of consciousness Rapid heart rate Very slow heart rateWhen to seek medical advice 8 General Instructions [facility] Emergency Department [address] [place] [address] Phone #: ext- [phone] 04/19/2020 20:24 Patient: DELONTE ZAMORANO Sex: Betsy : 1985 Age: 34yCall your healthcare provider right away if any of these occur: Agitation, anxiety, or unable to sleep Unintended weight loss. This means more than 10 to 15 pounds over 3 months. Fever of 100.4F (38C) or higher, or as directed by your healthcare provider Shortness of breath Cough with colored sputum Redness, swelling, or tenderness at an injection site [id number] [employer]. [address] [place] [address]. All rights reserved. This information is not intended as asubstitute for professional medical care. Always follow your healthcare professional's instructions.Marijuana AbuseMarijuana is the most widely used illegal drug in the [place] Recently, it became legal for recreationaland medicinal use in certain states. It is called by various names such as pot, weed, blunts, grass,reefer, ganja, hash, or hashish. It is usually smoked, but it can be mixed with foods or brewed as atea. Recently a practice known as "dabbing" or "smoking wax" has become popular. This meanssmoking highly concentrated extracts of the marijuana plant. The result is more side effects.Sometimes, marijuana can be sold with PCP (regine dust) or amphetamine m ixed in it. These drugscan cause other harmful side effects.Marijuana can cause the following effects: Changes in mood, such as stimulated, happy, drowsy, depressed, or paranoid Visions (hallucinations) Increased heart rate and blood pressure Red eyes Increased appetite Time distortion, trouble concentrating, or memory problems Lung damage. This is similar to cigarettes with chronic cough, wheezing, frequent colds, and bronchitis. Rarely, collapse of the lung (pneumothorax) Decreased sperm count Dizziness, vertigo, and possibly slurred speech 9 General Instructions [facility] Emergency Department [address] [place] [address] Phone #: ext- [phone] 04/19/2020 20:24 Patient: DELONTE ZAMORANO Sex: M : 1985 Age: 34y Vomiting. Even though marijuana is used to treat nausea and vomiting, some chronic daily users have the opposite effect. They vomit uncontrollably for long periods of time (cannabinoid hyperemesis syndrome).You can become psychologically dependent on marijuana. That means the craving to use the drug isemotional or psychological rather than from physical withdrawal.Is marijuana running your life?Here are some of the signs: Relying on marijuana to feel good, forget problems, deal with stress or to relax Wanting to be alone most of the time or only with others who use drugs Losing interest in things that used to be important Changes in school or job performance or attendance Spending a lot of time thinking about how to get marijuana Stealing or selling your things so you can buy marijuana Unable to stop using even though you may want to quit Increasing anxiety, anger, or depression Sleeping too much, or changes in eating habits (weight loss or gain) Needing to use more to get the same effectHome careThese suggestions will help you manage marijuana abuse: Once you have become addicted to any drug, quitting is hard to do. Most people find they can't quit without help. So don't try to do this alone. Talk to someone you trust who can support you. Seek professional help. Stay away from people and places where drugs are used. That only increases the temptation to use.Follow-up careFollow up with your healthcare provider, or as advised.For more information or a referral to a treatment center in your area, contact: Your local mental health center or the National Alcohol and Substance Abuse Information 10 General Instructions [facility] Emergency Department [address] [place], [place] [id number] Phone #: ext- [phone] 04/19/2020 20:24 Patient: DELONTE ZAMORANO Sex: Betsy : 1985 Age: 34y Center: [phone] or www.[employer] [place] [employer] and Drug Dependence: 248.693.5602 or www.ncadd.org Marijuana Anonymous: or www.marijuana-anonymous.orgWhen to seek medical adviceCall your healthcare provider right away if any of these occur: You feel extreme depression, fear, anxiety, or anger toward yourself or others. You feel out of control. You feel that you may try to harm yourself or another. You have chest pain or shortness of breath. [phone] [employer] [place] [address]. All rights reserved. This information is not intended as asubstitute for professional medical care. Always follow your healthcare professional's instructions. You have been given the following additional information: Anxiety Reaction Marijuana Abuse Drug Abuse Marijuana Abuse(Electronically signed by Chapito Love M.D. 04/20/2020 04:31) Name Value Range Interpretation Code Description Data Adriana rce(s) Supporting Document(s) ID Date Data Source [id number] 04/19/2020 08:39:00 PM EDT [facility] 1 Clinical Report - Nurses [facility] Emergency Department [address] [place] [address] Phone #: ext- [phone] 04/19/2020 20:24 Patient: DELONTE ZAMORANO Sex: M : 1985 Age: 34yTRIAGEArrived by private vehicle. Historian: patient. Accompanied by family.Acuity: LEVEL 3.Chief Complaint: (WEAKNESS).Alert. No acute distress.This started today.Treatment STRIPPER BLACK AND WHITE:None.SEPSIS SCREEN: SIRS SCREEN NEGATIVE. SEPSIS SCREEN NEGATIVE. No suspected or confirmedsigns of infection present.SHERRY COMA SCORE: 15- eyes open- spontaneous (4); best verbal response- oriented (5); bestmotor response- obeys commands (6). --20:31 04/19/20 Tomas Novak0:25 04/19/20. BP: 141/97. HR: 150. RR: 17. O2 saturation: 100%. Temp: 98.0 F. Pain level now 0/10.--20:31 04/19/20 Suzi Novak.Weight: 99.7 kg. Height/Length: 72 inches. BMI: 29.8. --20:28 04/19/20 Suzi Novak.MedicationsLisinopril Oral (Tablet 10 mg), daily. Venlafaxine HCl ER Oral (Tablet Extended Release 24 Hour 37.5 mg) 1 tablet, daily. --20:55 04/19/20Swati Atkins R.N.The following entry was struck by Swati Atkins R.N ., 20:55 (04/19/20) Reason - other. None. --20:29 04/19/20 Suzi Novak .AllergiesTorodal.(hives) --20:29 04/19/20 Micah NovaknGabapentin. --20:29 04/19/20 Suzi Novak.PROBLEMS:Spina bifida. --20:31 04/19/20 Ernie Novakental Caries.Diarrhea.Epididymitis. 2 Clinical Report - Nurses [facility] Emergency Department [address] [place] [address] Phone #: ext- [phone] 04/19/2020 20:24 Patient: DELONTE ZAMORANO Sex: M : 1985 Age: 34yConcussion injury of brain.Contusion.CVA - Cerebrovascular Accident.Esophagitis.GI Bleeding.Headache.Gastric ulcer.Gastritis.Gastroesophageal Reflux Disease.Atypical Chest Pain.Abdominal Pain.Bulging discs.Biliary Colic.Renal Colic.Panic Attack.Paresthesia.Peptic Ulcer Disease.Vertigo.Viral Disease.Weakness.UTI - Urinary Tract Infection.Pancreatitis.Herniated Disk.Intervertebral Disc Disease.Muscle Spasm.Myofascial Strain.Kidney Infection.Lumbar Strain.Mesenteric Lymphadenitis. --20:56 04/19/20 Swati Atkins R.N.The following entry was modified by Swati Atkins R.N., 20:56 04/19/20Anxiety Reaction. --20:55 04/19/20 Swati Atkins R.N.The following entry was modified by Swati Atkins R.N., 20:56 04/19/20Chronic Back Pain. --20:55 04/19/20 Swati Atkins R.N.The following entry was modified by Swati Atkins R.N., 20:56 04/19/20Hypertension. --20:55 04/19/20 Swati Atkins R.N..ADDITIONAL SURGERIES:Right hand. --20:31 04/19/20 Mandi Novakholecystectomy.Right finger surgery.Skin grafting.Spinal fusion [10/2018]. --20:56 04/19/20 Swati Atkins R.N. 3 Clinical Report - Nurses [facility] Emergency Department [address] [place] [address] Phone #: ext- [phone] 04/19/2020 20:24 Patient: DELONTE ZAMORANO Sex: M : 1985 Age: 34y History SOCIAL HX: Heavy tobacco smoker (cigarette)- more than 2 packs per day. Drug use: marijuana. No alcohol use. The patient was offered HIV testing but declined. Patient education was provided. The patient was offered hepatitis C testing but declined. Patient education was provided. The patient has not traveled outside the [place] Infectious disease exposure: No infectious disease exposure. The patient was not exposed to Coronavirus. Patient is not a known carrier of tuberculosis, hepatitis, HIV, MRSA or VRE. Patient is not a known carrier of CRE. SELF HARM ASSESSMENT: Self harm assessment was performed. The patient answered "no" to the question(s) "Have you recently felt down, depressed, or hopeless?" and "Do you have thoughts of harming or killing yourself?". ABUSE ASSESSMENT: Abuse assessment. The patient had positive responses to the question(s) "Do you feel safe in your home?" and "Are you afraid to go home?". Abuse denied. No suspicion of abuse. No report of abuse. NUTRITIONAL RISK ASSESSMENT: The nutritional risk assessment revealed no deficiencies. FUNCTIONAL ASSESSMENT: Functional assessment: no impairments noted. LEARNING NEEDS ASSESSMENT: The learning needs assessment revealed no barriers. FALL RISK ASSESSMENT: Fall risk assessment completed. Risk factors identified include weakness. Fall interventions initiated. Patient placed on stretcher. Side rails up x2. Bed in low position. Brakes on. SKIN INTEGRITY ASSESSMENT: Skin integrity risk assessment completed. No skin integrity risk identified. --20:31 04/19/20 Suzi Novak. Interventions Identification band on patient. --20:31 04/19/20 Suzi Novak.PHYSICAL ASSESSMENTAmbulatory to room.GENERAL / NEURO / PSYCH: Alert. Oriented X 4. Appears in no acute distress. Pupillary exam: Rightpupil sluggishly reactive. Left pupil: sluggishly reactive.HEENT: No facial asymmetry noted. Mucous membranes are pink.RESPIRATORY: Respirations not labored. Chest nontender. Breath sounds within normal limits.CVS: Capillary refill less than 2 seconds. Pulses within normal limits.GI / : Abdomen soft and nontender and normal bowel sounds.SKIN: Skin intact. Skin is warm and dry. Normal skin turgor. --20:38 3/15/21 Suzi Novak.NURSING PROGRESS NOTESMonitoring of patient in place. Patient gowned. Reassurance given. Two patient identifiers checked. 4 Clinical Report - Nurses [facility] Emergency Department [address] [place] [address] Phone #: ext- [phone] 04/19/2020 20:24 Patient: DELONTE ZAMORANO Sex: M : 1985 Age: 34yCall light placed in reach. Side rails up x 2. Bed placed in lowest position. Brakes of bed on. Patientready for evaluation. --20:31 04/19/20 Kayleen Novak STROKE SCALE: Score 1. Level of Consciousness: alert (0). LOC Questions: both (0). LOCCommands: both (0). Best gaze: normal (0). Visual field loss: none (0). Facial palsy: normal (0). Motorarm: no drift right arm (0) and no drift left arm (0). Motor leg: no drift right leg (0) and no drift left leg (0).Limb ataxia: none (0). Sensory loss: mild to moderate (1). Aphasia: none (0). Dysarthria: normal (0).Extinction and inattention: none (0). --20:42 04/19/20 Micah Novakn20:38 04/19/2020 Site #1 started via IV in the right antecubital space with an 20g angiocath, with aseptictechnique and good blood return; one attempt. Blood drawn: rainbow set. Saline lock flushed with saline.--20:43 04/19/20 Margaret Novak ID band checked for patient name and birthdate: patient confirmed. COVID-19 specimen obtainedby RN via nasopharyngeal swab. Labeled in t he presence of the patient and sent to lab. --21:11 04/19/20Tomas Novak1:12 04/19/2020 Started bag #1 1000 mL IV Fluids NS; at 500 mL/hr over 1 hour(s) via site #1 via IVpump. IV patency established. IV site checked: no pain, redness, or swelling. IV flushed thoroughly pre-and post-medication administration. --21:13 04/19/20 Roxana Laws R.N.21:14 04/19/2020 Lopressor (Metoprolol Tartrate) IVP 5 mg given over 2 minute(s) via site #1. IV patencyestablished. IV site checked: no pain, redness, or swelling. IV flushed thoroughly pre- and post-medicationadministration. --21:14 04/19/20 Roxana Laws R.N.Reassessment after medication administered. No adverse reaction. He is resting quietly. --21:29 04/19/20Roxana Laws R.N.Patient returned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 SARS-CoV-2 INFECTION AND SHOULD NOT BE USED THE SOLE BASISFOR PATIENT MANAGEMENT DECISIONS. Name Value Range Interpretation Code Description Data Adriana rce(s) Supporting Document(s) ID Date Data Source [id number] 04/19/2020 09:41:00 PM EDT [facility] Name Value Range Interpretation Code Description Data Adriana rce(s) Supporting Document(s) Thyrotropin [Units/volume] in Serum or Plasma by Detec tion limit <= 0.05 mIU/L 0.75 uIU/mL 0.47 - 5.01 [facility] ID Date Data Source [id number] 04/19/2020 09:32:00 PM EDT [facility] Name Value Range Interpretation Code Description Data Adriana rce(s) Supporting Document(s) SALICYLATE <0.3 mg/dL 2.0 - 20.0 L [facility] ID Date Data Source [id number] 04/19/2020 09:32:00 PM EDT [facility] Name Value Range Interpretation Code Description Data Adriana rce(s) Supporting Document(s) COMPREHENSIVE METABOLIC PANEL [facility] COMPREHENSIVE METABOLIC PANEL Sodium [Moles/volume] in Serum or Plasma 137 mEq/L 134 - 153 [facility] Potassium [Moles/volume] in Serum or Plasma 3.6 mEq/L 3.6 - 5.0 [facility] Chloride [Moles/volume] in Serum or Plasma 100 mEq/L 98 - 107 [facility] Carbon dioxide, total [Moles/volume] in Serum or Plasma 25 MEQ/L 22 - 30 [facility] Glucose [Mass/volume] in Serum or Plasma 161 MG/DL 70 - 99 H [facility] BUN 13 MG/DL 7 - 21 [facility] al Creatinine [Mass/volume] in Serum or Plasma 0.9 MG/DL 0.7 - 1.5 [facility] BUN/CREAT 14 8 - 27 [facility] al Protein [Mass/volume] in Serum or Plasma 6.8 G/DL 6.3 - 8.2 [facility] Albumin [Mass/volume] in Serum or Plasma 4.4 G/DL 3.9 - 5.0 [facility] Globulin [Mass/volume] in Serum by calculation 2.4 GM/DL 2.4 - 3.2 [facility] A/G RATIO 1.8 0.8 - 2.0 [facility] Calcium [Mass/volume] in Serum or Plasma 8.9 MG/DL 8.4 - 10.2 [facility] Bilirubin.total [Mass/volume] in Serum or Plasma <0.7 MG/DL 0.2 - 1.3 [facility] Alkaline phosphatase [Enzymatic activity/volume] in Serum or Plasma 64 U/L 38 - 126 [facility] Aspartate aminotransferase [Enzymatic activity/volume] in Serum or Plasma 11 U/L 5 - 40 [facility] Alanine aminotransferase [Enzymatic activity/volume] in Seru m or Plasma 23 U/L 7 - 56 [facility] Anion gap 3 in Serum or Plasma 12.0 mmol/L 8.0 - 16.0 [facility] 34 [facility]/min [facility] AFR AMER GFR >60 mL/min [facility] Male GFR In terprentation 20-49 yrs >60 mL/min Normal 50-59 yrs >56 mL/min Normal 60-69 yrs >49 mL/min Normal 70-79yrs >42 mL/min Normal 80 and above >35 mL/min Normal Female GFR Interpretation 20-39 yrs >60 mL/min Normal 40-49 yrs >58 mL/min Normal 50-59 yrs >51 mL/min Normal 60-69 yrs >45 mL/min Normal 70-79 yrs >39 mL/min Normal 80 and above >32 mL/min Normal ID Date Data Source [id number] 04/19/2020 09:32:00 PM EDT [facility] Value Range Interpretation Code Description Data Adriana rce(s) Supporting Document(s) TROPONIN T <0.01 NG/ML 0.00 - 0.10 [facility] TROPONIN T0.1 ng/ml Recommended as the c linical threshold value forTroponin T. ID Date Data Source [id number] 04/19/2020 09:31:00 PM EDT [facility] Value Range Interpretation Code Description Data Adriana rce(s) Supporting Document(s) Acetaminophen [Presence] in Urine <5.0 UG/ML 0.0 - 30.0 [facility] ID Date Data Source [id number] 04/19/2020 09:31:00 PM EDT [facility] Value Range Interpretation Code Description Data Adriana rce(s) Supporting Document(s) Ethanol [Moles/volume] in Blood <10.0 MG/DL [facility] ALCOHOL % 0.01 % 0.00 - 0.01 [facility] *FOR MEDICAL PURPOSES ONLY * ID Date Data Source [id number] 04/19/2020 09:31:00 PM EDT [facility] Value Range Interpretation Code Description Data Adriana rce(s) Supporting Document(s) Magnesium [Mass/volume] in Serum or Plasma 1.9 MG/DL 1.7 - 2.2 [facility] ID Date Data Source [id number] 04/19/2020 09:31:00 PM EDT [facility] Name Value Range Interpretation Code Description Data Adriana rce(s) Supporting Document(s) Lipase [Enzymatic activity/volume] in Serum or Plasma 37 U/L 13 - 60 [facility] ID Date Data Source [id number] 04/19/2020 09:30:00 PM EDT [facility] Name Value Range Interpretation Code Description Data Adriana rce(s) Supporting Document(s) CBC W/AUTOMATED DIFF [facility] COMPLETE BLOOD COUNT Leukocytes [#/volume] in Blood by Automated count 16.7 10^3/uL 4.2 - 11.0 H [facility] Erythrocytes [#/volume] in Blood by Automated count 5.11 10^6/uL 4. 50 - 6.30 [facility] Hemoglobin [Mass/volume] in Blood 16.0 g/dL 14.0 - 16.0 [facility] Hematocrit [Volume Fraction] of Blood by Automated count 44.3 % 4 1.0 - 51.0 [facility] Erythrocyte mean corpuscular volume [Entitic volume] by Auto mated count 86.7 fL 80.0 - 94.0 [facility] Erythrocyte mean corpuscular hemoglobin [Entitic mass] by Automated count 31.3 pg 27.0 - 34.0 [facility] Erythrocyte mean corpuscular hemoglobin concentration [Mass/volume] by Automated count 36.1 g/dL 31.0 - 36.0 H [facility] Erythrocyte distribution width [Ratio] by Automated count 12.9 % 11.5 - 14.8 [facility] Platelets [#/volume] in Blood by Automated count 453 10^3/uL 150 - 45 0 H [facility] Platelet mean volume [Entitic volume] in Blood by Automated count 9.2 fL 7.4 - 10.4 [facility] Neutrophils/100 leukocytes in Blood by Automated count 69.9 % 37. 0 - 80.0 [facility] Lymphocytes/100 leukocytes in Blood by Manual count 21.6 % 25.0 - 40.0 L [facility] Monocytes/100 leukocytes in Blood by Automated count 6.4 % 3.0 - 8.0 [facility] Eosinophils/100 leukocytes in Blood by Automated count 0.6 % 0.0 - 7.0 [facility] 0.2 %IG 1.3 % 0.0 - 0.0 [facility] %NRBC 0.0 % 0.0 - 0.0 [facility] Neutrophils [#/volume] in Blood by Automated count 11.66 10^3/uL 2. 00 - 6.90 H [facility] Lymphocytes [#/volume] in Blood by Automated count 3.61 10^3/uL 0.60 - 3.40 H [facility] Monocytes [#/volume] in Blood by Automated count 1.07 10^3/uL 0.00 - 0.90 H [facility] Eosinophils [#/volume] in Blood by Automated count 0.10 10^3/uL 0.00 - 0.70 [facility] Basophils [#/volume] in Blood by Automated count 0.04 10^3/uL 0.00 - 0.20 [facility] #IG 0.22 10^3/uL 0.00 - 0.10 H [facility] #NRBC 0.00 10^3/uL 0.00 - 0.00 [facility] MANUAL DIFF SEE BELOW [facility] Segmented neutrophils/100 leukocytes in Blood by Manual count 66 % 37 - 80 [facility] BAND 0 % 0 - 5 [facility] %LYMPH 26 % 25 - 40 [facility] %MONO 7 % 3 - 8 [facility] %EOS 1 % 0 - 7 [facility] 0 Metamyelocytes/100 leukocytes in Blood by Manual count 0 % [facility] Myelocytes/100 leukocytes in Blood by Manual count 0 % [facility] Promyelocytes/100 leukocytes in Blood by Manual count 0 % [facility] Blasts/100 leukocytes in Blood by Manual count 0 % [facility] VIKI LYM 0 % [facility] Nucleated erythrocytes/100 erythrocytes in Blood by Manual count 0 % [facility] RBC MORPH NOT INDICATED [facility] ID Date Data Source [id number] 04/19/2020 09:24:00 PM EDT [facility] Name Value Range Interpretation Code Description Data Adriana rce(s) Supporting Document(s) Prothrombin time (PT) 12.6 SECONDS 11.0 - 15.5 [facility] INR in Platelet poor plasma by Coagulation assay 0.90 0.93 - 1. 23 L [facility] aPTT in Blood by Coagulation assay 24.1 SECONDS 24.8 - 36.7 L [facility] \\BLDo\\INR INTERPRETATION\\BLDx\\ Therapeutic range for Coumadin and related oral anticoagulants. - International Normalized Ratio (INR): 2.0 - 3.0 for Venous Thrombosis, Pulmonary Embolus, Tissue heart valves, Acute TX Atrial Fibrillation, Valvular heart disease and recurrent Systemic Embolism. - International Normalized Ratio (INR): 2.5 - 3.5 for Mechanical Prosthetic valve. ID Date Data Source [id number] 04/16/2020 04:19:00 PM EST [facility] Name Value Range Interpretation Code Description Data Adriana rce(s) Supporting Document(s) COMPREHENSIVE METABOLIC PANEL [facility] COMPREHENSIVE METABOLIC PANEL Sodium [Moles/volume] in Serum or Plasma 142 mEq/L 134 - 153 [facility] Potassium [Moles/volume] in Serum or Plasma 3.3 mEq/L 3.6 - 5.0 L [facility] Chloride [Moles/volume] in Serum or Plasma 103 mEq/L 98 - 107 [facility] Carbon dioxide, total [Moles/volume] in Serum or Plasma 26 MEQ/L 22 - 30 [facility] Glucose [Mass/volume] in Serum or Plasma 110 MG/DL 70 - 99 H [facility] BUN 17 MG/DL 7 - 21 [facility] al Creatinine [Mass/volume] in Serum or Plasma 0.9 MG/DL 0.7 - 1.5 [facility] BUN/CREAT 19 8 - 27 [facility] Protein [Mass/volume] in Serum or Plasma 6.6 G/DL 6.3 - 8.2 [facility] Albumin [Mass/volume] in Serum or Plasma 4.3 G/DL 3.9 - 5.0 [facility] Globulin [Mass/volume] in Serum by calculation 2.3 GM/DL 2.4 - 3.2 L [facility] A/G RATIO 1.9 0.8 - 2.0 [facility] Calcium [Mass/volume] in Serum or Plasma 8.9 MG/DL 8.4 - 10.2 [facility] Bilirubin.total [Mass/volume] in Serum or Plasma <0.7 MG/DL 0.2 - 1.3 [facility] Alkaline phosphatase [Enzymatic activity/volume] in Serum or Plasma 59 U/L 38 - 126 [facility] Aspartate aminotransferase [Enzymatic activity/volume] in Serum or Plasma 12 U/L 5 - 40 [facility] Alanine aminotransferase [Enzymatic activity/volume] in Seru m or Plasma 21 U/L 7 - 56 [facility] Anion gap 3 in Serum or Plasma 13.0 mmol/L 8.0 - 16.0 [facility] AGE 34 yrs [facility] NON-AA GFR >60 mL/min [facility] AFR AMER GFR >60 mL/min [facility] Male GFR In terprentation 20-49 yrs >60 mL/min Normal 50-59 yrs >56 mL/min Normal 60-69 yrs >49 mL/min Normal 70-79yrs >42 mL/min Normal 80 and above >35 mL/min Normal Female GFR Interpretation 20-39 yrs >60 mL/min Normal 40-49 yrs >58 mL/min Normal 50-59 yrs >51 mL/min Normal 60-69 yrs >45 mL/min Normal 70-79 yrs >39 mL/min Normal 80 and above >32 mL/min Normal ID Date Data Source [id number] 04/16/2020 04:11:00 PM EST [facility] Name Value Range Interpretation Code Description Data Adriana rce(s) Supporting Document(s) CBC W/AUTOMATED DIFF [facility] COMPLETE BLOOD COUNT Leukocytes [#/volume] in Blood by Automated count 20.5 10^3/uL 4.2 - 11.0 H [facility] Erythrocytes [#/volume] in Blood by Automated count 5.18 10^6/uL 4. 50 - 6.30 [facility] Hemoglobin [Mass/volume] in Blood 16.1 g/dL 14.0 - 16.0 H [facility] Hematocrit [Volume Fraction] of Blood by Automated count 44.9 % 4 1.0 - 51.0 [facility] Erythrocyte mean corpuscular volume [Entitic volume] by Auto mated count 86.7 fL 80.0 - 94.0 [facility] Erythrocyte mean corpuscular hemoglobin [Entitic mass] by Automated count 31.1 pg 27.0 - 34.0 [facility] Erythrocyte mean corpuscular hemoglobin concentration [Mass/volume] by Automated count 35.9 g/dL 31.0 - 36.0 [facility] Erythrocyte distribution width [Ratio] by Automated count 12.8 % 11.5 - 14.8 [facility] Platelets [#/volume] in Blood by Automated count 477 10^3/uL 150 - 45 0 H [facility] Platelet mean volume [Entitic volume] in Blood by Automated count 9.4 fL 7.4 - 10.4 [facility] Neutrophils/100 leukocytes in Blood by Automated count 58.9 % 37. 0 - 80.0 [facility] Lymphocytes/100 leukocytes in Blood by Manual count 29.6 % 25.0 - 40.0 [facility] Monocytes/100 leukocytes in Blood by Automated count 8.5 % 3.0 - 8.0 H [facility] Eosinophils/100 leukocytes in Blood by Automated count 0.2 % 0.0 - 7.0 [facility] 0.4 %IG 2.4 % 0.0 - [facility].0 [facility] % 0.0 - 0.0 [facility] al Neutrophils [#/volume] in Blood by Automated count 12.08 10^3/uL 2. 00 - 6.90 H [facility] Lymphocytes [#/volume] in Blood by Automated count 6.08 10^3/uL 0.60 - 3.40 H [facility] Monocytes [#/volume] in Blood by Automated count 1.75 10^3/uL 0.00 - 0.90 H [facility] Eosinophils [#/volume] in Blood by Automated count 0.04 10^3/uL 0.00 - 0.70 [facility] Basophils [#/volume] in Blood by Automated count 0.08 10^3/uL 0.00 - 0.20 [facility] #IG 0.50 10^3/uL 0.00 - 0.[address] [facility] ospital #NRBC 0.00 10^3/uL 0.00 - 0.00 [facility] MANUAL DIFF SEE BELOW [facility] Segmented neutrophils/100 leukocytes in Blood by Manual count 61 % 37 - 80 [facility] BAND 0 % 0 - 5 [facility] %LYMPH 30 % 25 - 40 [facility] %MONO 9 % 3 - 8 [facility] %EOS 0 % 0 - 7 [facility] 0 Metamyelocytes/100 leukocytes in Blood by Manual count 0 % [facility] Myelocytes/100 leukocytes in Blood by Manual count 0 % [facility] Promyelocytes/100 leukocytes in Blood by Manual count 0 % [facility] Blasts/100 leukocytes in Blood by Manual count 0 % [facility] VIKI LYM 0 % [facility] Nucleated erythrocytes/100 erythrocytes in Blood by Manual count 0 % [facility] RBC MORPH NOT INDICATED [facility] ID Date Data Source [id number] 04/14/2020 05:03:47 PM [facility] Name Value Range Interpretation Code Description Data Adriana rce(s) Supporting Document(s) Discharge Summary [facility] [id number] [file] [id number]== ID Date Data Source [id number] 04/09/2020 11:42:00 AM EST [facility] 1 OrderSheet [facility] Emergency Department [address] [place] [address] Phone #: ext- [phone] 04/09/2020 11:33 Patient: DELONTE ZAMORANO Sex: M : 1985 Age: 34yWEIGHT:97.5 kg (S) HEIGHT:71 inches (S) BMI:30.0ALLERGIES: Gabapentin, ToradolCHIEF COMPLAINT: weakness, paresthesia, walkingDIAGNOSIS: Cerebrovascular accidentLAB ORDERSOrder Description Priority Entered Acknowledged InitialedBlood Culture STAT 12:04/09/2020 12:27 Inez Lopez0m X2 (Yoav Oates RMorrisNMorris12:07 04/09/2020) ;Blood Culture STAT 12:04/09/2020 12:27 Inez Lopez0m X2 (Yoav Oates R.N.12:17 04/09/2020) ;CBC w Diff STAT 12:04/09/2020 12:27 Patrica Lopez Victoria R.N. ;CMP STAT 12:04/09/2020 12:27 Patrica Lopez Victoria R.N. ;Fibrinogen Level STAT 12:04/09/2020 12:27 Patrica Lopez Victoria R.N. ;Magnesium STAT 12:04/09/2020 12:27 Patrica Lopez Victoria R.N. ;PT/INR STAT 12:04/09/2020 12:27 Patrica Lopez Victoria R.N. ;PT/PTT STAT 12:04/09/2020 12:27 Patrica Lopez Victoria R.N. ;Urinalysis (Clean STAT 12:04/09/2020 Cancelled: Patient Refusal 15:50 Jordan Lopez) Yoav Vargas R.N. ;Venous Blood Gas STAT 12:04/09/2020 12:28 Patrica Lopez Victoria R.N. ;COVID-19 CAH (Not STAT 14:19 04/09/2020 14:19 Patrica Lopez 2 OrderSheet [facility] Emergency Department [address] [place] [address] Phone #: ext- [phone] 04/09/2020 11:33 Patient: DELONTE ZAMORANO Sex: M : 1985 Age: 34ySymptomatic as Patrica Lopez R.N.; R.N.Defined by CDC) Verbal order per;(04/07/20) (Not First Ángel Vargas) (Hospitalized)(Not ) (NotResident inCongregate CareSetting) (NotEmployed inHealthcare Setting)DIAGNOSTIC STUDY ORDERSOrder Description Priority Entered Acknowledged InitialedChest Portable 1 STAT 12:04/09/2020 12:21 Renato Lopze Victoria R.N.(Oxygen?(No)) ; Reason for Study: strokeCT HEAD (STROKE STAT 12:04/09/2020 12:21 Patrica LopezPROTYoav Chapman R.N.(Oxygen?(No)) ;(IV?(Yes)) Reason for Study: left sided weakness and numbnessMRI Brain W/O STAT 12:22 04/09/2020 13:17 Rip Lopez Victoria R.N.(Oxygen?(No)) (No) ; Reason for Study: left sided weakness. possible strokeChest 1 View STAT 13:50 04/09/2020 Cancelled: Physician Order 14:05(Oxygen?(No)) Yoav Vargas Jennifer R.N. ; Reason for Study: cvaMEDICATION/IV/DRIP/FLUID ORDERSOrder Description Priority Entered Acknowledged InitialedIV NS : 100 mL/hr 12:07 04/09/2020 12:31 Patrica Lopez Victoria R.N. ;Ativan IVP 2 mg 12:58 04/09/2020 13:04 Patrica Lopez(NOW x1, HIGH Sandy Dimas R.N.ALERT R.NMorris; Verbal orderMEDICATION) per; Yoav VargasOfirmev IV 1000 mg 13:49 04/09/2020 14:18 Patrica Lopez(NOW x1, Infuse C Yoav stapleton R.N. 3 OrderSheet [facility] Emergency Department [address] [place] [address] Phone #: ext- [phone] 04/09/2020 11:33 Patient: DELONTE ZAMORANO Sex: M : 1985 Age: 34yover 15 minutes) ;Percocet PO 1 tab 15:34 04/09/2020 15:38 Patrica Lopez(HIGH ALERT Yoav Vargas RMorrisNMorrisMEDICATION) ;GENERAL ORDERSOrder Description Priority Entered Acknowledged InitialedAccucheck 12:07 04/09/2020 12:21 Patrica Lopez Victoria RMorrisNMorris ;Blood Pressure 12:07 04/09/2020 12:16 Leoncio Lopez Victoria R.N. ;Manager Terminal 12:07 04/09/2020 12:16 Patrica Lopez(continuous) Yoav Vargas R.N. ;EKG 12:04/09/2020 12:16 Patrica Lopez Victoria R.N. ;Thurman Catheter 12:07 04/09/2020 Cancelled: Physician Order 12:30 Alicia Lopez Victoria Julie R.N. ;Hemorrhagic stroke 12:04/09/2020 12:30 Darleen Lopez SBP<160, Yoav VargasNMorrisDBP<90 mmHg ;HOB @ 30 degrees 12:07 04/09/2020 12:20 Mackenzie Lopez in neutral Yoav Vargas R.Daposition ;If glucose >130, see 12:07 04/09/2020 12:20 Kalyan Lopez insulin orders Yoav Vargas R.N. ;Ischemic stroke 12:04/09/2020 12:17 Darleen Lopez SBP<220, Yoav Vargas.NMorrisDBP<120 mmHg ;NPO 12:04/09/2020 12:17 Patrica Lopez Victoria R.N. ;Ntfy if Abnml Vitals 12:04/09/2020 12:17 Patrica Lopez Victoria R.N. ;Obtain Old EKG 12:04/09/2020 12:17 Patrica Lopez Victoria R.N. ; 4 OrderSheet [facility] Emergency Department [address] [place] [address] Phone #: ext- [phone] 04/09/2020 11:33 Patient: DELONTE ZAMORANO Sex: M : 1985 Age: 34yOxygen titrate to 12:07 04/09/2020 12:17 Patrica Lopez92% Yoav Vargas R.N. ;Pulse oximeter 12:04/09/2020 12:17 Patrica Lopez(Continuous) Yoav Vargas R.N. ;Saline Lock 12:04/09/2020 12:27 Patrica Lopez Victoria R.N. ;Stroke Alert 12:04/09/2020 12:17 Patrica Lopez Victoria R.N. ;Swallowing screen 12:04/09/2020 12:16 Torres Lopez on all pts prior Yoav Vargas R.N.to first PO intake ;Vitals 12:04/09/2020 12:27 Patrica Lopez Victoria R.N. ;Consult - 14:04/09/2020 14:18 Patrica LopezHospitalist Yoav Vargas R.N. ;Transfer: 14:04/09/2020 14:18 Patrica Lopez Victoria R.N. ;[Electronically signed by Patrica Lopez R.N. (16:06 04/09/2020)][Electronically signed by Yoav Vargas (05:19 04/10/2020)][Electronically locked by Patrica Lopez R.N. (16:06 04/09/2020)] Name Value Range Interpretation Code Description Data Adriana rce(s) Supporting Document(s) ID Date Data Source [id number] 04/09/2020 11:42:00 AM EST [facility] 1 Medication Reconciliation Report [facility] Emergency Department [address] [place] [address] Phone #: ext- [phone] 04/09/2020 11:33 Patient: DELONTE ZAMORANO Sex: M : 1985 Age: 34yWeight: 97.5 kgHeight/Length: 71 in.BMI: 30.0ALLERGIES: Gabapentin, ToradolThe patient's Home Medications are listed below:THE FOLLOWING MEDICATIONS NEED TO BE RECONCILED: Lisinopril Oral (10 mg), daily Venlafaxine HCl ER Oral (37.5 mg) 1 tablet, dailyThe source(s) of the original Home Medication information:Not obtained.The following Medications were given to the patient in the Emergency Department:IV NS IV Fluids bolus 0, then 100 mL/hr, administered: 12:31 1Ativan [IVP] IVP 2 mg, administered: 13:04 04/09/2020ofirmev IV bolus 0, then 1000 mg, administered: 14:18 1Percocet [PO] PO 1 tab, administered: 15:38 04/09/2020The following Medications were prescribed to the patient:None. Name Value Range Interpretation Code Description Data Adriana rce(s) Supporting Document(s) ID Date Data Source [id number] 04/09/2020 11:42:00 AM EST [facility] 1 Medication Administration Record [facility] Emergency Department [address] [place] [address] Phone #: ext- [phone] 04/09/2020 11:33 Patient: DELONTE ZAMORANO Sex: M : 1985 Age: 34yWeight: 97.5 kgHeight/Length: 71 inBMI: 30ALLERGIES: Gabapentin, Toradol Date/Time Medication Administered Medication OrderedStart IV NS IV NS : 100 mL/hr12:31 04/09/2020 Dose: IV Patrica Jolley ROni Rate: 100 mL/hr over 4 hour(s)---- Dispensed: 1000 mL bagStop Site: #1 left AC15:49 Patrica Pappas R.N.Given ATIVAN [IVP] (LORAZEPAM) Ativan IVP 2 mg (NOW x1, HIGH13:04 04/09/2020 Dose: 2 mg IVP ALERT MEDICATION)Patrica Lopez R.N. Site: #1 left ACStart ofirmev * Ofirmev IV 1000 mg (NOW x1,14:18 04/09/2020 Dose: 1000 mg * IV Infuse over 15 minutes)Patrica Lopez R.N.----Stop15:37 04/09/2020Patrica shukla R.N.Given PERCOCET [PO] Percocet PO 1 tab (HIGH ALERT15:38 04/09/2020 (OXYCODONE-ACETAMINO PHEN) MEDICATION)Patrica Lopez R.N. Dose: 1 tab PO Name Value Range Interpretation Code Description Data Adriana rce(s) Supporting Document(s) ID Date Data Source [id number] 04/09/2020 11:42:00 AM [facility] 1 General Instructions [facility] Emergency Department [address] [place] [address] Phone #: ext- [phone] 04/09/2020 11:33 Patient: DELONTE ZAMORANO Sex: M : 1985 Age: 34yNontraumatic cerebrovascular accident- embolic ischemic infarct involving an unknown intracranial artery.No hemorrhage.(Electronically signed by Yoav Vargas 04/10/2020 05:18) Name Value Range Interpretation Code Description Data Adriana rce(s) Supporting Document(s) ID Date Data Source [id number] 04/09/2020 11:42:00 AM [facility] 1 Clinical Report - Nurses [facility] Emergency Department [address] [place] [address] Phone #: ext [phone] 04/09/2020 11:33 Patient: DELONTE ZAMORANO Sex: M : 1985 Age: 34yTRIAGEArrived by private vehicle. Historian: patient. Accompanied by family. ( here last week for handnumbness and vision ct scan was done and was told that he needed an mri now entire left side numb , wasseen by md and is trying to get him an mri also complains of back pain from prior surgery).Acuity: LEVEL 3.Chief Complaint: NUMBNESS and (left side).Alert.This started 2 days ago. Onset. (2 weeks ago). 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 (1000). --11:40 04/09/20 Patrica Lopez R.N.11:47 04/09/20. BP: 145/83. MAP: 103. HR: 88. RR: 18. O2 saturation: 100%. Temp: 98.1 F. Pain levelnow: 09/14. --11:48 04/09/20 Patrica Lopez R.N.Weight: 97.5 kg stated. Height/Length: 71 inches Per Patient. BMI: 30. --11:35 04/09/20 Patrica Lopez R.N.MedicationsLisinopril Oral (Tablet 10 mg), daily. --11:43 04/09/20 Patrica Lopez R.N. Venlafaxine HCl ER Oral (Tablet Extended Release 24 Hour 37.5 mg) 1 tablet, daily. --11:48 04/09/20Patrica Lopez R.N.AllergiesGabapentin.Toradol. --11:43 04/09/20 Patrica Lopez R.N.PROBLEMS:Dental Caries.Diarrhea.Epididymitis.Concussion injury of brain.Esophagitis.GI Dis ease.Headache.Gastric ulcer.Gastritis.Gastroesophageal Reflux Disease.Atypical Chest Pain. 2 Clinical Report - Nurses [facility] Emergency Department [address] [place] [address] Phone #: ext- [phone] 04/09/2020 11:33 Patient: DELONTE ZAMORANO Sex: M : 1985 Age: 34yPeptic Ulcer Disease.Sciatica.Pancreatitis.Panic Attack.Paresthesia.Vertigo.Viral Disease.Spina Bifida Occulta.UTI - Urinary Tract Infection.Herniated Disk.Intervertebral Disc Disease.Muscle Spasm.Myofascial Strain.Other Disease.Kidney Infection.Lumbar Strain.Mesenteric Lymphadenitis. --11:43 04/09/20 Patrica Lopez R.N.The following entry was modified by Patrica Lopez R.N., 11:43 04/09/20Chronic Back Pain. --11:43 04/09/20 Patrica Lopez R.N.The following entry was modified by Patrica Lopez R.N., 11:43 04/09/20Back Pain. --11:43 04/09/20 Patrica Lopez R.N.The following entry was modified by Patrica Lopez R.N., 11:43 04/09/20Hype rtension. --11:43 04/09/20 Patrica Lopez R.N..ADDITIONAL SURGERIES:Cholecystectomy.Right finger surgery.Skin grafting.Spinal fusion [10/2018]. --11:44 04/09/20 Patrica Lopez R.N.HistoryPAST MEDICAL HX: Immunizations: up-to-date.SOCIAL HX: Light tobacco smoker- less than 1/2 a pack per day. Alcohol use. (quit in dec). Weekly druguse: marijuana. The patient was offered HIV testing but declined and hepatitis C testing but declined.The patient has not traveled outside the [place]Infectious disease exposure: No infectious disease exposure. Patient is not a known carrier of tuberculosis,hepatitis, HIV, MRSA or VRE. Patient is not a known carrier of CRE.SELF HARM ASSESSMENT: Self harm assessment was performed. The patient answered "no" to thequestion(s) "Have you recently felt down, depressed, or hopeless?", "Do you have thoughts of harming orkilling yourself?", "Do you have a plan for harming or killing yourself?", "Have you recently had thoughtsabout harming or killing others?", "Do you have any dangerous items in your possession?", "Have younoticed less interest or pleasure in doing things?", "Are you here because you tried to hurt yourself?" and 3 Clinical Report - Nurses [facility] Emergency Department [address] [place] [address] Phone #: ext- [phone] 04/09/2020 11:33 Patient: DELONTE ZAMORANO Sex: M : 1985 Age: 34y "Have you ever tried to hurt yourself before today?". ABUSE ASSESSMENT: Abuse assessment. Abuse denied. No suspicion of abuse. No report of abuse. NUTRITIONAL RISK ASSESSMENT: The nutritional risk assessment revealed no deficiencies. FUNCTIONAL ASSESSMENT: Functional assessment: no impairments noted. LEARNING NEEDS ASSESSMENT: The learning needs assessment revealed no barriers. FALL RISK ASSESSMENT: Fall risk assessment completed. No risk factors identified. SKIN INTEGRITY ASSESSMENT: Skin integrity risk assessment completed. No skin integrity risk identified. --11:40 04/09/20 Patrica Lopez R.N. Interventions Identification band on patient. To treatment room. --11:40 04/09/20 Patrica Lopez R.N. Allergy band on patient. --11:50 04/09/20 Patrica Lopez R.N.PHYSICAL ASSESSMENTAmbulatory to room.GENERAL / NEURO / PSYCH: Awake. Oriented X 4. Alert. He has constant numbness (entire rightside of body).HEENT: No facial asymmetry noted. Pharynx within normal limits.RESPIRATORY: Breath sounds within normal limits. Respirations not labored.CVS: Normal sinus rhythm noted. Capillary refill less than 2 seconds.SKIN: Skin is intact, warm and dry. --11:50 04/09/20 Patrica Lopez R.N. ( neuros within in normal with exception of numbness stated by pt of entire left s rowan of body). --11:53 04/09/20 Patrica Lopez R.N.NURSING PROGRESS NOTESPatient gowned. Reassurance given. Two patient identifiers checked. Call light placed in reach. Siderails up x 2. Bed placed in lowest position. Brakes of bed on. Patient ready for evaluation. --11: Patrica Lopez R.N. 12:05 04/09/20. Patient transported to [place] by stretcher with tech. --12:15 04/09/20 Patrica Lopez R.N. 12:10 04/09/20. Patient returned from CT by stretcher with nurse. --12:15 04/09/20 Patrica Lopez R.N. EKG time: (12:15 04/09/2020). --12:16 04/09/20 Patrica Lopez R.N. 12:17 04/09/20. BP: 146/83. MAP: 104. HR: 75. RR: 11. O2 saturation: 100%. --12:17 04/09/20 [facility] 4 Clinical Report - Nurses [facility] Emergency Department [address] [place] [address] Phone #: ext- [phone] 04/09/2020 11:33 Patient: DELONTE ZAMORANO Sex: M : 1985 Age: 34yTech, Marisol, ER [id number] stick glucose: 86; performed by nurse; result shown to the ED physician. --12:20 04/09/20 Patrica Lopez R.N.12:29 04/09/20. BP: 126/81. MAP: 96. HR: 86. RR: 21. O2 saturation: 100%. --12:04/09/20 Marisol HarrisJUAN Dkqw004:31 04/09/2020 Site #1 started via IV in the left antecubital space with an 18g angiocath, with aseptictechnique and good blood return; one attempt. Saline lock flushed with 10 mL saline. --12:04/09/20 Patrica Lopez R.N.12:04/09/2020 Started bag #1 1000 mL IV Fluids IV NS; at 100 mL/hr over 4 hour(s) via site #1 via IVpump. Allergies verified and confirmed 5 rights. IV patency established. IV site checked: no pain, redness,or swelling. IV flushed thoroughly pre- and post-medication administration. Information reviewed withpatient including reason for taking this medication, signs of allergic reaction and precautions. Verbalizesunderstanding. --12:04/09/20 Patrica Lopez R.N.13:04 04/09/2020 Ativan (LORazepam) IVP 2 mg given over 2 minute(s) via site #1. Allergies verified andconfirmed 5 rights. IV patency established. IV site checked: no pain, redness, or swelling. IV flushedthoroughly pre- and post- medication administration. IVP given by RN. Information reviewed with patientincluding reason for taking this medication, signs of allergic reaction, precautions and sedative warning.Verbalizes understanding. --13:04 04/09/20 Patrica Lopez R.N.13:16 04/09/20. Patient transported to [facility] by wheelchair with tech. --13:21 04/09/20 Patrica Lopez R.N.13:46 04/09/20. BP: 146/84. MAP: 104. HR: 91. RR: 19. O2 saturation: 100%. --13:47 04/09/20 YeaddissMarisol JacobJUAN [id number] returned from [facility] by wheelchair with tech. --13:49 04/09/20 Patrica Lopez R.N.late entry - 13:19 04/09/20. ( no overall change). --14:20 04/09/20 Patrica Lopez R.N.14:18 04/09/2020 ofirmev * IV 1000 mg --14:18 04/09/20 Patrica Lopez R.N.Patient ID band checked for patient name and birthdate: patient confirmed. COVID-19 specimen obtainedby RN via nasopharyngeal swab. Labeled in the presence of the patient and sent to lab (rapid). --14: Patrica Lopez R.N.( pt made aware of transport to [facility]). --14:20 04/09/20 Patrica Lopez R.N.14:34 04/09/20. BP: 149/99. MAP: 115. HR: 78. RR: 18. O2 saturation: 100%. --14:34 04/09/20 [employer] 5 Clinical Report - Nurses [facility] Emergency Department [address] [place] [address] Phone #: ext- [phone] 04/09/2020 11:33 Patient: DELONTE ZAMORANO Sex: Betsy : 1985 Age: 34y 14:59 04/09/20. BP: 144/102. MAP: 116. HR: 67. RR: 18. O2 saturation: 97%. --15:00 04/09/20 [employer], [employer] Tech1 ( waiting for transfer to [facility] no change in neuro status). --15:12 04/09/20 Patrica Lopez R.N. 15:34 04/09/20. BP: 126/102. MAP: 110. HR: 90. RR: 21. O2 saturation: 100%. --15:34 04/09/20 [employer] Tech1 15:37 04/09/2020 Ofirmev IV Discontinued: completed. Total amount infused: 100 mL. IV patency established. IV site checked: no pain, redness, or swelling. IV flushed thoroughly. --15:37 04/09/20 Patrica Lopez R.N. 15:38 04/09/2020 Percocet (oxyCODONE-Acetaminophen) PO 1 tab given. Allergies verified and confirmed 5 rights. Information reviewed with patient including reason for taking this medication, signs of allergic reaction, precautions and sedative warning. Verbalizes understanding. --15:38 04/09/20 Patrica Lopez R.N. 15:49 04/09/2020 IV Fluids IV NS via IV site #1 Discontinued: discontinued upon transfer. Total amount infused: 500 mL. IV patency established. IV site checked: no pain, redness, or swelling. IV flushed thoroughly. --15:49 04/09/20 Patrica Lopez R.N. 15:49 04/09/2020 Percocet PO Response: pain is improving. --15:49 04/09/20 Patrica Lopez R.N.DISPOSITION / DISCHARGE Transferred to [facility]. Visit overview, summary of care ([facility]DA) and Emtala forms provided to transport team and transfer facility via paper. Transported via ambulance by EMS with monitor, IV and emergency medications. Report was given to a nurse via a phone call. Report included information regarding patient's care, treatment, allergies and condition including: recent changes, current vital signs and abnormal labs. Report included treatment information regarding medications given or pending; type and amount of IV fluids and medications infusing. All questions were answered. Report was acknowledged and care was transferred. (radha Poole). Bed obtained and ready. --15:10 04/09/20 Patrica Lopez R.N. 15:40 04/09/20. BP: 126/102. MAP: 110. HR: 90. RR: 21. O2 saturation: 100%. Temp: 98.1 F. Pain level now: 05/15. Additional comments: Dr bueno. --15:49 04/09/20 Patrica Lopez R.N. Departure time: 15:55 04/09/2020. --16:05 04/09/20 Patrica Lopez R.N.Locked/Released at 04/09/2020 16:06 by Patrica Lopez R.N. 6 Clinical Report - Nurses [facility] Emergency Department [address] [place] [address] Phone #: ext- [phone] 04/09/2020 11:33 Patient: DELONTE ZAMORANO Sex: M : 1985 Age: 34y Name Value Range Interpretation Code Description Data Adriana rce(s) Supporting Document(s) ID Date Data Source [id number] 04/09/2020 11:42:00 AM EST [facility] 1 Clinical Report - Physicians/Mid Levels [facility] Emergency Department [address] [place] [address] Phone #: ext- [phone] 04/09/2020 11:33 Patient: DELONTE ZAMORANO Sex: M : 1985 Age: 34y Time Seen: 11:30 04/09/2020; initial patient contact, initial documentation. Arrived- By private vehicle. Historian- patient. Disposition decision: 13:51 04/09/2020.HISTORY OF PRESENT ILLNESS Chief Complaint: WEAKNESS, PARESTHESIA and DIFFICULTY WALKING. since yesterday morning upon awakening. patient states that he was seen in the ER 9 days ago because he had tunneling of vision and had numbness on the left arm. he had a CT scan of the head which wasnormal as well as a CTA of the head and neck and was normal. he was discharged home and was advised MRI. he saw his doctor 5 days ago and was going to be referred to a neurologist. he is also under the care of pain management for his chronic back pain. he states that he started having numbness and weakness of the left lower leg yesterday upon awakening. he states that sometimes he trips . he has hand the numbness and the weakness of the left upper extremity for 1 week. no slurred speech. This started yesterday and patient was last known well (22:00 04/07/2020). The patient has had weakness, and numbness. No tingling, impaired speech or swallowing, visual disturbance or recent fall. He has had difficulty walking. At its maximum deficit described as moderate. When seen in the E.D.,deficit described as moderate. No dizziness, altered mental status, seizure or blackouts. Usually is alert and oriented X3 and has normal mobility. Similar symptoms previously.REVIEW OF SYSTEMSNo fever, headache, head injury, chest pain or cough. No sore throat, abdominal pain, nausea, diarrheaor black stools. No difficulty with urination, skin rash, enlarged lymph nodes, joint pain or vomiting. Nobloody stools or back pain.PAST HISTORYSee nurses notes. Problems: Dental Caries. Diarrhea. Epididymitis. Concussion injury of brain. Esophagitis. GI Disease. Headache. Gastric ulcer. Gastritis. Gastroesophageal Reflux Disease. 2 Clinical Report - Physicians/Mid Levels [facility] Emergency Department [address] [place] [address] Phone #: ext- [phone] 04/09/2020 11:33 Patient: DELONTE ZAMORANO Sex: Betsy : 1985 Age: 34y Atypical Chest Pain. Peptic Ulcer Disease. Sciatica. Pancreatitis. Panic Attack. Paresthesia. Vertigo. Viral Disease. Spina Bifida Occulta. UTI - Urinary Tract Infection. Herniated Disk. Intervertebral Disc Disease. Muscle Spasm. Myofascial Strain. Other Disease. Kidney Infection. Lumbar Strain. Mesenteric Lymphadenitis. Additional Surgeries: Cholecystectomy. Right finger surgery. Skin grafting. Spinal fusion [10/2018]. Medications: V enlafaxine HCl ER Oral (Tablet Extended Release 24 Hour 37.5 mg) 1 tablet, daily. Lisinopril Oral (Tablet 10 mg), daily. Allergies: Gabapentin. Toradol.SOCIAL HISTORYFormer smoker. Occasional alcohol use. Heavy drug use: marijuana.ADDITIONAL NOTESThe nursing notes have been reviewed.PHYSICAL EXAMVital Signs: 04/09/2020 11:47 BP: 145/83. MAP: 103. HR: 88. RR: 18. O2 saturation: 100%. Temp: 98.1F. Pain level now: 09/14. Have been reviewed. Hypertensive. Oxygen saturation normal.Appearance: Alert. Anxious.Head: Head atraumatic.Eyes: Pupils equal, round and reactive to light and light. No nystagmus. 3 Clinical Report - Physicians/Mid Levels [facility] Emergency Department [address] [place] [address] Phone #: [phone]- [phone] 04/09/2020 11:33 Patient: DELONTE ZAMORANO Sex: M : 1985 Age: 34y ENT: Normal ENT inspection. Airway intact. Pharynx normal. Neck: Normal inspection. Neck supple. CVS: Normal heart rate and rhythm. Heart sounds normal. Pulses normal. Respiratory: No respiratory distress. Painless inspiration. Breath sounds normal. Abdomen: Soft and nontender. No organomegaly. Back: Normal inspection. No CVA tenderness. Skin: Skin warm and dry. Normal skin color. No rash. Normal skin turgor. Extremities: No lower extremity edema. No calf tenderness. No lower extremity edema. Neuro: Awake. Alert. Alert. Oriented X 3 and 3. Speech normal and normal. Cranial nerves normal (as tested) and II through XII intact. No facial weakness. No cerebellar findings. No abnormal finger-nose test. Performed at 10:40 04/09/2020. NIH Stroke Scale: score 3. Level of Consciousness: alert (0). LOC Questions: both (0). LOC Commands: both (0). Best gaze: normal (0). Visual field loss: none (0). Facial palsy: normal (0). Motor arm: no drift right arm (0) and drift left arm (1). Motor leg: no drift right leg (0) and drift left leg (1). Limb ataxia: none (0). Sensory loss: mild to moderate (1). Aphasia: none (0). Dysarthria: normal (0). Extinction and inattention: none (0).LABS, X-RAYS, AND EKGEKG: EKG time: 12:19 04/09/2020. No acute process. No acute ischemia. Normal EKG. Normalsinus rhythm. Rate: 81. Normal P waves. Normal LORENE. Normal QRS complex. Abnormal axis.Normal ST and T waves. The study has been interpreted contemporaneously by me. The study hasbeen independently viewed by me. The EKG appears to be a good tracing. Interpretation time: 12:.Chest X-ray: (Kate cabrera Brian 04/09/2020 12:28:03 PM No acute disease). The X-rays were interpreted by the radiologist. CT Head: (Kate cabrera Brian 04/09/2020 12:19:50 PM Report Called Kate cabrera Brian 04/09/2020 12:19:30 PM Asymmetric area of low attenuation right parietal deep white matter. No hemorrhage. No mass-effect. Recommend MRI if not contraindicated.). The study was interpreted by the radiologist. MRI Brain: Note- Kate cabrera Brian 04/09/2020 1:44:25 PM Small acute infarct identified in the deep white matter of the right parietal lobe. Smaller scattered areas of acute infarct identified involving the midbrain. No surrounding mass-effect. No bleed. Results called to Dr. Vargas. Study type: The study was interpreted by the radiologist. Laboratory Tests: CBC w Diff: (PORTIA: 04/09/2020 12:38) ( MsgRcvd 04/09/2020 12:59) Final results Test Result Flag Units (Reference) 4 Clinical Report - Physicians/Mid Levels [facility] Emergency Department [address] [place] [address] Phone #: ext- [phone] 04/09/2020 11:33 Patient: DELONTE ZAMORANO Sex: M : 1985 Age: 34y CBC W/AUTOMATED DIFF COMPLETE BLOOD COUNT WBC 8.9 10/uL (4.2 - 11.0) RBC 5.30 10/uL (4.50 - 6.30) HEMOGLOBIN 16.4 H g/dL (14.0 - 16.0) HEMATOCRIT 46.1 % (41.0 - 51.0) MCV 87.0 fL (80.0 - 94.0) MCH 30.9 pg (27.0 - 34.0) MCHC 35.6 g/dL (31.0 - 36.0) RDW 12.6 % (11.5 - 14.8) PLATELETS 458 H 10/uL (150 - 450) MPV 9.2 fL (7.4 - 10.4) NEUT 59.1 % (37.0 - 80.0) LYMPH 30.6 % (25.0 - 40.0) MONO 7.8 % (3.0 - 8.0) EOS 1.6 % (0.0 - 7.0) BASO 0.6 % (0.0 - 2.0) %IG 0.3 H % (0.0 - 0.0) %NRBC 0.0 % (0.0 - 0.0) #NEUT 5.28 10/uL (2.00 - 6.90) #LYMPH 2.73 10/uL (0.60 - 3.40) #MONO 0.70 10/uL (0.00 - 0.90) #EOS 0.14 10/uL (0.00 - 0.70) #BASO 0.05 10/uL (0.00 - 0.20) #IG 0.03 10/uL (0.00 - 0.10) #NRBC 0.00 10/uL (0.00 - 0.00) MANUAL DIFF NOT INDICATED RBC MORPH NOT INDICATEDFibrinogen Level: (PORTIA: 04/09/2020 12:38) ( [facility] 04/09/2020 13:42) Final results Test Result Flag Units (Reference) FIBRINOGEN 285.0 mg/dL (179 - 506)PT/INR: (PORTIA: 04/09/2020 12:38) ( [facility] 04/09/2020 12:42) CanceledPT/PTT: (PORTIA: 04/09/2020 12:38) ( [facility] 04/09/2020 13:42) Final results Test Result Flag Units (Reference) PROTIME 12.7 SECONDS (11.0 - 15.5) INR 0.91 L (0.93 - 1.23) PTT 28.5 SECONDS (24.8 - 36.7) \\BLDo\\INR INTERPRETATION\\BLDx\\ Therapeutic range for Coumadin andrelated oral anticoagulants. -International Normalized Ratio (INR): 2.0 - 3.0 for VenousThrombosis, Pulmonary Embolus, Tissue heart valves, Acute [place] Atrial Fibrillation, Valvular heart diseaseand recurrent Systemic Embolism. -International Normalized Ratio (INR): 2.5 - 3.5 forMechanical Prosthetic valve.Venous Blood Gas: (PORTIA: 04/09/2020 12:38) ( [facility] 04/09/2020 12:53) Final results Test Result Flag Units (Reference) pH V 7.47 H (7.32 - 7.43) pCO2 V 33.7 L mm/HG (38.0 - 51.0) pO2 V 25.9 L mm/HG (30.0 - 55.0) HCO3 V 24.0 meq/L (22.0 - 29.0) TCO2 V 25.1 meq/L (22.0 - 29.0) BASE EXCESS 1.1 (-2.0 - 2.0) O2 SAT V 52.6 % (40.0 - 85.0) 5 Clinical Report - Physicians/Mid Levels [facility] Emergency Department [address] [place] [address] Phone #: ext- [phone] 04/09/2020 11:33 Patient: DELONTE ZAMORANO Sex: M : 1985 Age: 34y.PROGRESS AND PROCEDURESCourse of Care: 12:23 04/09/20. spoke with DR Love of radiology and there is attenuation on the rightfrontal lobe which can cause his symptoms. will send him for MRI of the brain without contrast as hehas had a CTA of the head and neck 1 week ago 13:12 04/09/20. Patient very anxious and as given ativan 2 mg IV 13:23 04/09/20. Patient is not a TPA candidate as symptoms have been going on for more than 24 hours patient has panic attack. given Ativan 2 mg prior to going to MRI 14:04 04/09/20. discussed the case with DR Duffy at [facility] who accepted the patient 15:35 04/09/20. patient is still complaining of pain on the left side of his back. he was given ofirmev without relief ordered 1 percocet. Critical care performed (45 minutes). Time is exclusive of separately billable procedures. Time includes: direct patient care, patient reassessment, coordination of patient care, interpretation of data (laboratory data and chest xrays), review of patient's medical records, medical consultation and document ation of patient care- see progress notes. Patient counseled in person regarding the patient's serious condition and need for transfer. Patient agrees with plan of care. 13:51. Disposition: Benefits, risks and alternatives to transfer explained to patient. Transferred to [facility]. 14:06 14:06. UTI (catheter associated) was not present prior to transfer. Pressure ulcer was not present prior to transfer. Vascular infection (catheter associated) was not present prior to transfer. Surgical site infection was not present prior to transfer. Blood incompatibility was not present prior to transfer. Condition: good and stable.CLINICAL IMPRESSION Nontraumatic cerebrovascular accident- embolic ischemic infarct involving an unknown intracranial artery. No hemorrhage.(Electronically signed by Yoav Vargas 04/10/2020 05:18) 6Clinical Report - Physicians/Mid Levels [facility] Emergency Department [address] [place] [address] Phone #: ext- [phone] 04/09/2020 11:33 Patient: DELONTE ZAMORANO Sex: M : 1985 Age: 34y Name Value Range Interpretation Code Description Data Adriana rce(s) Supporting Document(s) ID Date Data Source [id number] 04/09/2020 11:42:00 AM [facility] Addenda for DELONTE ZAMORANO VisitID: [id number] Date: 12:06blood culture positive for staph, results faxed to [facility](Electronically signed by Brianne Arcos RN - 04/11/2020 12:06)04/14/2020 13:52Previously already faxed to [facility] on 04/11/2020; Shown to Niurka CHAVEZ at 1352, okay with this, nofurther intervention required.(Electronically signed by Sandy Dimas R.N. - 04/14/2020 13:52) Name Value Range Interpretation Code Description Data Adriana rce(s) Supporting Document(s) ID Date Data Source [id number] 04/12/2020 02:51:26 PM EST [facility] Name Value Range Interpretation Code Description Data Adriana rce(s) Supporting Document(s) Consultation [facility] UNGENn2uRvNTWdQl71/IUOvdXORxx9GzZIcmGHf7XMdxGPRpC3IsPKB8pL9sBGV3TDtAKjXxRwDzCwI7 lbm [file] metalworker+AC7YlA9QvXV4kl2+oLN1rx4t4wvpUwz5ppR9TF dEZYp9Uz99q+EkxE0ZGHRvCdDAZ8eHJ7q29WGKsRj08V9KNe8PGtyy06ndghp1CcLg99A+jpkDcMtQHK t+32OMLz/AME7pUxKITRp6T1thFOhc9PmdyV/Gjr1/1XHr/0S1RG1s11/xqG7xvHHgG19BzmzffnTc7P XBRIPyQzmZnsMHMtaVWPzNrSOMxCu+lL2PSs/e5afj ZOQ5qY2EQ9Acz1Mlb9S7uPX8uuYqFkOQddKyem1OWlKDdJr819KaxWllACgu3EbKdPFOf+KBiDQKbTo8 ZAUGEf7ao1k0M7CoWyIf/J1faNpaJbzyXZPgcNQDSDC2uQQBKPjALlJJ8CX1rBDhXKjtMDvTWy01mTx2 rQj7VrFXbccSs9BbDQkF3LO/TOqhCV1qDy0VSn1Ugi 0F/4o96DtE4YU/Scrum Master+HuNtfs28yqiAvzgOnCogVr/Vnn3naCGSfKtONW7ynFkyC2HJX8yy0SmMSljKIJn [file] ICAgICAgICAgICAgICAgICAgICAgICAgICAgICAgICAgICAgICAgICAgICAgICAgICAgICAgICAgICAg WVAbIVCcCGOiWCIePZZrDNDkNV2LGXBxMODdCAHpNUKsVBWjEJVbDBMqPMOvLVJzOUBgBGUqFVVzMGEv ICAgICAgICAgICAgICAgICAgICAgICAgICAgICAgIC BvQHIkTECeFRLmVJCkJHDaFUWeXYNbFPYcTMYbSY7KFMHvLVEqBQUzZOIzHNHgWMDtTFDkBOEsGVEfYJ AgICAgICAgICAgICAgICAgICAgICAgICAgICAgICAgICAgICAgICAgICAgICAgICAgICAgICAgICAgIC FjEYThVIFmQZTjWL3SHPGcDTLoKRWeQJVsZEVlGYTf ICAgICAgICAgICAgICAgICAgICAgICAgICAgICAgICAgICAgICAgICAgICAgICAgICAgICAgICAgICAg LUFsYAJcPARqXUMhKFQrLLBrGSWpYL4FTVFzPHKiNWUnJGXyKVMmIIWyWWYaZJBnASBjNMPdBCAmMMIj ICAgICAgICAgICAgICAgICAgICAgICAgICAgICAgIC OtMTLaMNWgJKHbXTNbSZYcBZZqWNQlITStNWJqRSZrSQ0BDOIaPXJvOBCoSGQsTUTeODTuLOGiZBZrQN AgICAgICAgICAgICAgICAgICAgICAgICAgICAgICAgICAgICAgICAgICAgICAgICAgICAgICAgICAgIC VhGZCoKPCvDTSpUAOrXC6IYDZyTEFoBKDcDJHrXNYl ICAgICAgICAgICAgICAgICAgICAgICAgICAgICAgICAgICAgICAgICAgICAgICAgICAgICAgICAgICAg NXXlOZXhKENfBQTdCIYlHRQrHHMrJAYoMF0FRIVgTXAbQXHfHNUeFGUwPJJsKMOnEVHzPQRkYXNaEOJo ICAgICAgICAgICAgICAgICAgICAgICAgICAgICAgIC BmONCqOFLgVJNtKRKqRBJeXZUpARBiKOSkQKJlWIJjHSHvXK0JLTRzFFYbSYAuKCTyOMHsCOCtXBDkRE AgICAgICAgICAgICAgICAgICAgICAgICAgICAgICAgICAgICAgICAgICAgICAgICAgICAgICAgICAgIC XlFXHnWVIvYRJhWYXhQFWoJB9OHTJvJROtHQBjKLVa ICAgICAgICAgICAgICAgICAgICAgICAgICAgICAgICAgICAgICAgICAgICAgICAgICAgICAgICAgICAg VHYiEGKfTQBfXZVdBYBbGAQrGAKsYYDaCZHwMY9TMP84nYUrh2K9HYBwJQ8hgvy/Xl7EDCaiunSutQSi FZ8MDuZqMC7odw6QMyYzGT1iyn9EOSyVGbWrA3U1yX EeHOYtHVJHVyMtE50dZAadIu75CVvxZRYnClDaYJh3Xb0QLzFgU9nqHRJfLsW9TYFeWyP6TPMqXzR2RX GtGqNzBKDbXYEaJL1RJPCmM494vrDvYQ5FAj3SLpPnIY2yrq6QEnetMTAiQnzIYop0UInfEK0RtDNqdK CpNZCfVKQWPyLeM9tor1VhYtczYCDXSTtuTP9Js5Ad dCAxDQo+It4PGD5hi0DeUJrqPQZrDA7dap5KVMzGWbRzR4EjaHalCGGxjtZ6mXMxRUC1PFGrbD0nfUJl KXZCuCGcSBQCCJAZCKU9VPJjDW9xAFQyJGHwThT3ISGWLT5UYYBcYMPybDDyWBPhBVNYCK8GYYhwWXB4 ECBipiEyhJUyFYwcRH0JTTJmywKwStdxSKNFBLk+Pg 4WLZ3mm3YvMTlgODByQH5txt8CYCpEFmNuL0E6wSNtR8H9YUblFn5SKLUvBPEpVbDnCKYHJWiiJM7PDM 9gzxA3LQ8OvILeGDAoHMHeuAMmGJa7J90mgPPoDJkjRU1PLHL+Claudia+Kb3CPDNjFEIiFCQfYpFvVPTNUn NiK3MkC5NPw7NwW1EjKJ15cLvyprScOMubEV5YRQ5a GYJsVYXVLF8KnTXypX1ylaAcPPEwPLZEZqSqP88lhHSeDILaJCD2ZGEjLg4XJPCcN0CbnbMxqDszsoLi KPUfNYXMWP0LPAmpkhWmtLPhcCvvIJ98uGirLI9DWa6GCbMcIK1nis3OkBOiXa0OEAYxBP1RSAIiVZRh ETBbDBH9YLFmLzMmXUzbUSGcNTPyAWJ0BUMmAPWiRZ 1TJaUaLCVaUeR9WDmtWYUyQLUsvr8RBYAuZIOqTpF4JwCiOTLwEPSgADrgQIJvWGGnJFH6TXLyMWFeYT 2QOcXhVRRhASQ6XqfzMQKcUUFysc2CJZFqXYLnVuuyXcEyXTZxXAJrAPvrACGzYYT8ZCBxHQIeKXZjGC 3CBcGfCLNsCMzdOpGwRXZzNOJjcx8CBZXdSZVnOQg7 AVYpGEWlSNCsSCyvGDHkVERoOTR3KDFeORUfZJ5GFrYrDSWbOEMzNLllAGRdWHGxjx8SUWCqHMIwOVZl IuZtJQXnEXEjSCirLLXgIFV3IDBaGTQrIJCkQT2XExNuRJNwVYD8DxYlNRZeHUAjep6QBGEzIWHoUDk4 QxEsXSKwEAYkDMunKCQeEZG5UJYeNMBpOJKnMC2CUe TwJGMpKTpdSJUbPNCdJUGkcz6PQCGxEXScYpH5TpQiBVKaEUWfWSvgKAJkCDL8OSf8TOKpOVOwBH4LPl WsCOOjTwq2PMHcUOImNHRgxs8SKMGkZJAiVTZvTCBoTIJpHALpADjwEDYsZGP6NiCzVEYfGLMcTY0UCe LkGJNjPlv5QIlqFGGvYEKktl2UKHIvOUBlXYByXEMi PSUlTAPgETceTAYoURWvEhY6UTVyHCPtSB0BGwBzELMdCcK1LGUvLYScPCAteb4TZPCkEZEzRIYjUuBu TTFwFTJsXNsiDTHhBMMyYrfvQKGkNGWmNY0UTePzMCVpObA4IIHfRBAzXCLndb6JHKDhAKCmZof4CVYb YYCfDPEpPEr5gjJcuMDkIUw0PV5WL1ItdkAgAxBUZl 0Gu978TDYlWUOqUl4VU5dsYm3kASDiHXDKZq3JWZw2UiA5DJU5WxVaUCqvSRAvVxftTKHgV0N4FSLbL7 MxMjg+MYxsZuw8PXzuJXYbHUG9CKPyEHDmRbBeRpQnRLWzWhGvMO3oPTZZZz3+DQpzdGFydHhyZWYNCj InKFA3PXfnECIPUg5J ID Date Data Source [id number] 04/12/2020 10:05:00 AM EST [facility] [address] [place] [address] PHONE: [phone] FAX: [phone] Name .................. : JAUN DELONTE M Acct Number.................. : [id number] ROOM. ................. : VT01 MR Number ................... : [id number] Stay type ............. : E/R Discharge Date......... ... : 04/09/20 Admit Date ......... : 04/09/20 Admit Phys .................... : [facility] Date of ....... : 1985 Family Phys ................... : JOHNSONST WANGI Phone .................. : [phone] Age ................................ : 34 Film# .................. .:[id number] Sex ................................. : M Unsigned transcriptions are preliminary reports and do not represent a medical or legal document CHEST PORTABLE [id number] COMPLETE:04/09/20 19:10 [id number] [id number] Reason(s): stroke PORTABLE CHEST X-RAY: INDICATION: Stroke symptoms. COMPARISON: 03/29/20 FINDINGS: The cardiac and mediastinal silhouettes appear normal and the lungs are clear. The bones and soft tissues are normal. The upper abdomen is unremarkable. IMPRESSION: No acute disease identifiable. Electronically Reviewed and Signed By Yusuf Love MD , 04/12/20 10:05, PERFECTO Transcribe Initials: MELANIE , Transcribe Date: 04/10/20 05:53, Dictation Date: Copy for: 710 MED REC DISCHARGED Page 1 of 1 Name Value Range Interpretation Code Description Data Adriana rce(s) Supporting Document(s) ID Date Data Source [id number] 04/12/2020 10:05:00 AM EST [facility] [address] [place] [address] PHONE: [phone] FAX: [phone] Name .................. : JAUN Meyer Acct Number.................. : [id number] ROOM. ................. : VT-01 Number ................... : [id number] Stay type ............. : E/R Discharge Date......... ... : 04/09/20 Admit Date ......... : 04/09/20 Admit Phys .................... : [facility] Date of ....... : 1985 Family Phys ................... : ALEX KEANE Phone .................. : [phone] Age ................................ : 34 Film# .................. .:[id number] Sex ................................. : M Unsigned transcriptions are preliminary reports and do not represent a medical or legal document CT HEAD(STROKE PROTOCOL) W/O [id number] COMPLETE:04/09/20 15:38 RLB [id number] Reason(s): left sided weakness and numbness CT OF THE HEAD WITHOUT CONTRAST: INDICATION: Left-sided weakness and numbness. COMPARISON: 03/29/20 FINDINGS: Noncontrast head CT submitted for evaluation. FINDINGS: There is no intra-axial or extra-axial collection of fluid. No midline shift or mass effect. Small areas of low attenuation identified lateral to the right and left thalami. There is an asymmetric area of low attenuation extending up into the deep white matter of the right parietal lobe. No surrounding mass effect. No effacement of the lateral ventricles. The falx is midline. No skull fracture. The visualized paranasal sinuses and mastoid air cells are unremarkable. IMPRESSION: There is no intracranial hemorrhage. No mass effect. Asymmetric area of low attenuation in the deep white matter of the right parietal lobe. Patient was seen 03/29/20 for similar symptoms. Recommend MRI brain without contrast for further evaluation. Results discussed with Dr. Vargas at 12:19 hours. While performing the above CT examination, radiation dose reduction was accomplished utilizing automated exposure control, adjusting of the mA and kV based on the patient's body size and/or the use of imperative reconstructive techniques. Page 1 of 2 [place] [address] PHONE: [phone] FAX: [phone] Name .................. : JAUN Meyer Acct Number.................. : [id number] ROOM. ................. : VT-01 Number ................... : [id number] Stay type ............. : E/R Discharge Date......... ... : 04/09/20 Admit Date ......... : 04/09/20 Admit Phys .................... : MARIANACLAYCO Date of ....... : 1985 Family Phys ................... : ALEX KEANE Phone .................. : [phone] Age ................................ : 34 Film# .................. .:[id number] Sex ................................. : M Unsigned transcriptions are preliminary reports and do not represent a medical or legal document CT HEAD(STROKE PRO TOCOL) W/O [id number] COMPLETE:04/09/20 15:38 RLB [id number] Reason(s): left sided weakness and numbness CT dose: 864.3 mGycm Electronically Reviewed and Signed By Yusuf Love MD , 04/12/20 10:05, PERFECTO Transcribe Initials: MELANIE , Transcribe Date: 04/10/20 05:49, Dictation Date: Copy for: 710 MED REC DISCHARGED Page 2 of 2 Name Value Range Interpretation Code Description Data Adriana rce(s) Supporting Document(s) ID Date Data Source [id number] 04/12/2020 10:04:00 AM EST [facility] [address] [place] [address] PHONE: [phone] FAX: [phone] Name .................. : JAUN Meyer Acct Number.................. : [id number] ROOM. ................. : VT-01 MR Number ................... : [id number] Stay type ............. : E/R Discharge Date......... ... : 04/09/20 Admit Date ......... : 04/09/20 Admit Phys .................... : CHANLIECCO Date of ....... : 1985 Family Phys ................... : [employer] Phone .................. : [phone] Age ................................ : 34 Film# .................. .:[id number] Sex ................................. : M Unsigned transcriptions are preliminary reports and do not represent a medical or legal document MRI BRAIN W/O CONTRAST [id number] COMPLETE:04/09/20 15:16 [facility] 5650 Reason(s): left sided weakness. possible stroke MRI OF THE BRAIN WITHOUT CONTRAST: INDICATION: Left-sided weakness, stroke symptoms. COMPARISON: CT head from 04/09/20 and 03/29/20. TECHNIQUE: Multi/imaging of the head was acquired utilizing multiple pulse sequences. FINDINGS: Abnormal diffusion-weighted high diffusion-weighted T2 signal identified in the deep white matter of the right parietal lobe consistent with acute infarct. There are other faint areas of abnormal changes on diffusion-weighted signal identified in the portions of the mid-brain. No evidence of any cerebral edema. No mass or mass effect. No bleed. The orbits are unremarkable. The visualized paranasal sinuses and mastoid air cells are unremarkable. Some motion artifact limiting some details. 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 Smaller scattered areas of acute infarct identified involving the mid-brain. No surrounding mass effect. No bleed. Results called to Dr. Vargas. Electronically Reviewed and Signed By Yusuf Love MD , 04/12/20 10:04, PERFECTO Transcribe Initials: MELANIE , Transcribe Date: 04/09/20 23:48, Dictation Date: Page 1 of 2 [facility] [address] [place] [address] PHONE: [phone] FAX: [phone] Name .................. : JAUN GARCIAAaliyah Meyer Acct Number.................. : [id number] ROOM. ................. : VT-01 MR Number ................... : [id number] Stay type ............. : E/R Discharge Date......... ... : 04/09/20 Admit Date ......... : 04/09/20 Admit Phys .................... : ALICIA Date of ....... : 1985 Family Phys ................... : ALEX KEANE Phone .................. : [phone] Age ................................ : 34 Film# .................. .:[id number] Sex ................................. : M Unsigned transcriptions are preliminary reports and do not represent a medical or legal document MRI BRAIN W/O CONTRAST [id number] COMPLETE:04/09/20 15:16 [facility] 5650 Reason(s): left sided weakness. possible stroke Copy for: 710 MED REC DISCHARGED Page 2 of 2 Name Value Range Interpretation Code Description Data Adriana rce(s) Supporting Document(s) ID Date Data Source [id number] 04/12/2020 06:13:49 AM [facility] Name Value Range Interpretation Code Description Data Adriana rce(s) Supporting Document(s) Leukocytes [#/volume] in Blood by Automated count 19.6 10*3/uL 4-10 [facility] Erythrocytes [#/volume] in Blood by Automated count 4.76 10*6/uL 4.6- 6.1 [facility] Hemoglobin [Mass/volume] in Blood 14.6 g/dL 13.5-18 [facility] Hematocrit [Volume Fraction] of Blood by Automated count 42.4 % 4 1-53 [facility] Erythrocyte mean corpuscular volume [Entitic volume] by Auto mated count 89.1 fL 80-96 [facility] Erythrocyte mean corpuscular hemoglobin [Entitic mass] by Automated count 30.7 pg 27-33 [facility] Erythrocyte mean corpuscular hemoglobin concentration [Mass/volume] by Automated count 34.5 g/dL 32.0-36.[facility] width [Ratio] by Automated count 14.1 % 11.5-14.5 [facility] Platelets [#/volume] in Blood by Automated count 399 10*3/uL 150-400 [facility] Differential cell count method - Blood [facility] Neutrophils/100 leukocytes in Blood by Automated count 84 % [facility] Lymphocytes/100 leukocytes in Blood by Automated count 9 % [facility] Monocytes/100 leukocytes in Blood by Automated count 6 % [facility] Eosinophils/100 leukocytes in Blood by Automated count 0 % [facility] Basophils/100 leukocytes in Blood by Automated count 1 % [facility] Neutrophils [#/volume] in Blood by Automated count 16.56 10*3/uL 1.8- 7.0 H [facility] Lymphocytes [#/volume] in Blood by Automated count 1.76 10*3/uL 1.2-4 .0 [facility] Monocytes [#/volume] in Blood by Automated count 1.15 10*3/uL 0-0.8 H [facility] Eosinophils [#/volume] in Blood by Automated count 0.04 10*3/uL 0-0.5 [facility] Basophils [#/volume] in Blood by Automated count 0.13 10*3/uL 0-0.2 [facility] Nucleated erythrocytes/100 leukocytes [Ratio] in Blood by Automated count 0 /100{WBCs} 0-0 [facility] ID Date Data Source [id number] 04/12/2020 10:03:53 AM EST [facility] Name Value Range Interpretation Code Description Data Adriana rce(s) Supporting Document(s) Bicarbonate [Moles/volume] in Serum 23 mmol/L 22-29 [facility] Chloride [Moles/volume] in Serum or Plasma 102 mmol/L 98-107 [facility] Creatinine [Mass/volume] in Serum or Plasma 0.87 mg/dL 0.70-1.20 [facility] Glucose [Mass/volume] in Serum or Plasma 140 mg/dL 70-140 [facility] Potassium [Moles/volume] in Serum or Plasma 4.8 mmol/L 3.4-5.1 [facility] Sodium [Moles/volume] in Serum or Plasma 136 mmol/L 136-145 [facility] Urea nitrogen [Mass/volume] in Serum or Plasma 16 mg/dL 6-20 [facility] Confirmed Anion gap 3 in Serum or Plasma 12 mmol/L 8-15 [facility] Osmolality of Serum or Plasma by calculation 285 mosm/kg 275-300 [facility] Confirmed Creatinine/Urea nitrogen [Mass Ratio] in Serum or Plasma 19 [facility] Confirmed Calcium [Mass/volume] in Serum or Plasma 9.4 mg/dL 8.6-10.0 [facility] Glomerular filtration rate/1.73 sq M pre dicted among non-blacks [Volume Rate/Area] in Serum or Plasma by Creatinine-based formula (MDRD) >6 0 [facility] Glomerular filtration rate/1.73 sq M pre dicted among blacks [Volume Rate/Area] in Serum or Plasma by Creatinine-based formula (MDRD) >60 [facility] ID Date Data Source [id number] 04/11/2020 01:44:57 PM [facility] MR CERVICAL SPINE WITH AND WITHOUT CONTR AST [id number] RESULT - FINALInterpreted by:Lele Menchaca MDAddendum BeginsSigned on SunApr 11, 2020 1:42 PM by Jose Maharaj MDAddended Findings were discussed with Dr. Hernandez by Dr. Maharaj via phone at 04/11/2020 1:42 PM.Addendum EndsMR CERVICAL SPINE WITH AND WITHOUT CONTRAST [id number] INDICATION: Evaluate for enhancing lesions, concern for MS.COMPARISONS: None.TECHNIQUE: Multiplanar, multisequence MR of the cervical spine was performed with and without contrast administration. FINDINGS: Extensive motion artifact grades image quality.There is straightening of the normal cervical lordosis which can be positional. The dens is intact. Vertebral body heights are normal. Scattered degenerative changes are seen throughout the bone marrow. There is a 0.5 x 0.4 cm T2 hyperintense enhancing lesion located within the dorsal right white matter of the spinal cord at the C4-C5 level, most consistent with active demyelinating plaque. There is also a faint area of enhancement within the right dorsal white matter of the spinal cord at the C5 level, which also corresponds to increased T2 signal and also likely represents a demyelinating plaque.Disc Levels:C2-C3: Central canal and neuroforamen are patent.C3-C4: There is mild disc bulge with mild narrowing of the central canal. There is mild left neural foramina narrowing.At C4-5 there is diffuse disc bulge and small central protrusion with mild to moderate narrowing of the spinal canal. There is mild left neural foraminal narrowing.At C5-6 there is diffuse disc bulge and left-sided disc protrusion with cranial migration and moderate to severe narrowing of the spinal canal. There is possible compression on the left aspect of the cord at this level. There is severe left and moderate right neural foramina narrowing.At C6-7 there is broad-based disc protrusion with severe narrowing of the spinal canal. There is moderate to severe bilateral neural foramina narrowing.At C7-T1 there is no significant narrowing of the spinal canal or neural foramina.Visualized soft tissues are normal. IMPRESSION: 1. There are two T2 hyperintense foci within the cord one of them is enhancing as described above and are most consistent with active demyelinating plaques.2. Multilevel degenerative changes throughout the cervical spine as described above.Addendum by Dr Maahraj: There is left-sided disc protrusion with cranial migration at C5-6 with severe narrowing of the left aspect of the spinal canal with possible compression of the left aspect of the cord. There is severe narrowing of the central canal at C6-C7 secondary to disc protrusion.This document has been electronically signed by Jose Maharaj MD on 04/11/2020 9:19 AM Name Value Range Interpretation Code Description Data Adriana rce(s) Supporting Document(s) ID Date Data Source [id number] 04/11/2020 09:10:58 AM [facility] MR BRAIN WITH AND WITHOUT CONTRAST [id number] FINAL RESULTInterpreted by:Lele Menchaca MDClinical Indication: Evaluate for enhancing lesions, concern for MS, was initially thought to be stroke, left sided symptoms.Technique: Multiplanar and multisequence MR images of the brain were obtained before and following contrast administration.Comparison: MRI brain from an outside hospital dated 04/09/2020. CT head from an outside hospital dated 04/09/2020.FINDINGS: Redemonstration of Multiple areas of T2 FLAIR hyperintensities in the periventricular, subcortical and deep white matter and within the brainstem, the appearance is consistent with demyelinating lesions of multiple sclerosis. Some of these lesions show enhancement including the left peritrigonal white matter, the left superior cerebellar peduncle, the left aspect of the jailene, left MCP indicative of active demyelinating lesions. Many of these lesions show diffusion restriction.Additionally multiple foci of abnormal signal are also noted within the corpus callosum and the callosal septal interface and the cerebellar hemispheres. There is no evidence of acute intraparenchymal hemorrhage. No extra axial fluid collections are seen. No midline shift is seen. The ventricular system is normal in appearance. The pituitary gland, and cerebellar tonsils appear grossly unremarkable.Flow voids of the major intracranial arterial vessels are identified. The imaged portions of the paranasal sinuses, mastoid air cells, and orbits are unremarkable. IMPRESSION: Multiple areas of T2 FLAIR hyperintensities in the periventricular, subcortical and deep white matter as well as the brainstem and cerebellum consistent with demyelinating lesions some of them show enhancement consistent with active lesions This document has been electronically signed by Jose Maharaj MD on 04/11/2020 9:08 AM Name Value Range Interpretation Code Description Data Adriana rce(s) Supporting Document(s) ID Date Data Source [id number] 04/10/2020 08:49:17 PM [facility] Name Value Range Interpretation Code Description Data Adriana rce(s) Supporting Document(s) History and Physical [facility] RTBREr7hDjRRBlHo73/JULxgHSGkw0TjJXmqUWk1TDqiTZKkT9KuPZS3oP2xHCP5CXiLCaLkMmAfWwN7 lbm [file] z2B3OOodIC2f/kRCo7DQYtOXbZf5NKq6DZol9w0j561N02g963GyQvM/Scrum Master++P6LFD0BRHv1MmRC+xvug [file] AgICAgICAgICAgICAgICAgICAgICAgICAgICAgICAg ICAgICAgICAgICAgICAgICAgICAgICAgICAgICAgICAgICAgICANCiAgICAgICAgICAgICAgICAgICAg ICAgICAgICAgICAgICAgICAgICAgICAgICAgICAgICAgICAgICAgICAgICAgICAgICAgICAgICAgICAg ICAgICAgICAgICAgICAgICAgICANCiAgICAgICAgIC AgICAgICAgICAgICAgICAgICAgICAgICAgICAgICAgICAgICAgICAgICAgICAgICAgICAgICAgICAgIC AgICAgICAgICAgICAgICAgICAgICAgICAgICAgICANCiAgICAgICAgICAgICAgICAgICAgICAgICAgIC AgICAgICAgICAgICAgICAgICAgICAgICAgICAgICAg ICAgICAgICAgICAgICAgICAgICAgICAgICAgICAgICAgICAgICAgICANCiAgICAgICAgICAgICAgICAg ICAgICAgICAgICAgICAgICAgICAgICAgICAgICAgICAgICAgICAgICAgICAgICAgICAgICAgICAgICAg ICAgICAgICAgICAgICAgICAgICAgICANCiAgICAgIC AgICAgICAgICAgICAgICAgICAgICAgICAgICAgICAgICAgICAgICAgICAgICAgICAgICAgICAgICAgIC AgICAgICAgICAgICAgICAgICAgICAgICAgICAgICAgICANCiAgICAgICAgICAgICAgICAgICAgICAgIC AgICAgICAgICAgICAgICAgICAgICAgICAgICAgICAg ICAgICAgICAgICAgICAgICAgICAgICAgICAgICAgICAgICAgICAgICAgICANCiAgICAgICAgICAgICAg ICAgICAgICAgICAgICAgICAgICAgICAgICAgICAgICAgICAgICAgICAgICAgICAgICAgICAgICAgICAg ICAgICAgICAgICAgICAgICAgICAgICAgICANCiAgIC AgICAgICAgICAgICAgICAgICAgICAgICAgICAgICAgICAgICAgICAgICAgICAgICAgICAgICAgICAgIC AgICAgICAgICAgICAgICAgICAgICAgICAgICAgICAgICAgICANCiAgICAgICAgICAgICAgICAgICAgIC AgICAgICAgICAgICAgICAgICAgICAgICAgICAgICAg ICAgICAgICAgICAgICAgICAgICAgICAgICAgICAgICAgICAgICAgICAgICAgICANCjw/xFLwZ6rixTYz erE0I3yqTp8NRt1INH2aj8OlOTScSHbmdzUtQxwQTiMtFIKdBqhQYwt2SMvpLY6FyGKsW7DsR0BdONrb OL1MEJGjCPZsrBVkSLLxGOZhLxY1IQZhGApvVY8ObP SsBKldHRYhTFDwMsJeMCNkOJVuRURRAGYvEHClBbKpJSJxBNQjTYGaYZGQRPN8VVXfTdXnRCsiFH8As9 PgvLV9LTv+Yd6XBX9zi0VtZCctISOvHN1muy3PPVxUFmKgY5JaliA6PIE0VTCkHc8CONSkWTUxwNIwVJ NhLGYMCkRnM4FexB68VIQBCm1+DQplbmRvYmoNCjM5 AVLuj3YhODg9DH3WLEItIUv3xHIbFSBQWXF2ZFSdesoyvTKNis2gADOWEOYnzVXhJfDcHiEqXLMrWgdi HZKJKKcPZiJyR2Ddi8PgZtT5RRRvLzAhYXlyHZZaVeO9EW03pCdgPY0ZHQGrMVEpZJ41LIP5EIDmEv7S Ol7IPzEhTF7uge4ZKSVwFE1dtr8WSAhWArLpD0X6lX ClC6Czrh08UW9JgTZ3pRArLR3PnC2jBA5Ln0UeKWIpMxMdOWExOJAaPXFiLKGoDgBhYH3JUWBcFkSajS LjUKK1YFNoFBTlRRTeSxO3UQOTAfTaZ3RiZFgqAuUtFIPUXC2VOmuoRHZwF2BDLQtSPQ4KA9pET2WKNt 7QSI5RINJKY1yHY2sJX2uTDVxjDJ2TYZJzNF8+IA0K It3ATzHtCK4fye3CBOAnHDYxJfuCUvu0GExuMY1NgQZcJ7GfqKCui4fVZwIzM9SNFXY3BMKhZi3CRSUr RoWyEZTeHJfcXQ8nIAKoBFOHxLhfybR4ZS2CZX4wqiHfRH9ZOiTdOy8bIn6ZEwKkW6YaX3RoYHJeMKZR GAdnHN6UCAnuSW5gAF3Bs5LOrUBbfT2kzo2QGDWnRS WyTssqea6CHirhL1H3jSlzMHIuYundKKFINSwfND8ARUYhLYS7AWYzInTpSMHICiNjF65xFK3WI6Mmk7 7bLxX6XKUmZaUqVDcuUO55aIpfwiWsuHLrrFjpMH5WIi4+DQplbmRvYmoNCnhyZWYNCjAgNDENCjAwMD FqCZWeFFHbKgL5GtDxVq2DENJcINKrZDDsKnQkZWSp AXCyBWmsYZEqUNO4JrB2ZRCyPCCkGT7KGaOqCWBlCQo7XOCuZDFdIXFqvd3PHDXhCMBgPHM3DtMvASJe IPZeEIxbGIKpVAUyTdV8UOMaDNTmIK9ERgHgLBJyUAG0WJejPPIgUFCuht0UREBqBVHtXuPeZaPhUPHd YXVdGTxxDQHyATS6CLW3VBSzXXXzGL2HEtOjFVMeOL tzYFTlVHWfZTKrau0MVMSqQGGnIVe2UINsLZVcNBWhDVihRTIrTJCcYIx1JWKoQWAuZH9JAqFkEQZxWQ H6RWjyDXYkWDBirz2CJTPyIJWkEMayGxRrOKUjRAPiEUteXQTmXEB0BXAtULJmPWQjVU4SUhTlHFIuCS b4VPsvZJKzCNGeek5XVPDvGUQpDmK9EZCmZLOxEKAf OOeyUXQyCSJiOoQ7JLOiCKItHT8DXeRnPMHwUkBiDCLqGZYpLSRlcc2BTUNjLFIcKtNjEeJnZLBjAOMh EQzqVBJvSCL2EGXoUYMtRSOxHZ3CVnBhSORgMaZ4LIzfSINaLJFmkl9MNAArJTPrXQe3SzHwSGFuIFLh UMwzSRFbTHE3BEZoLXJsLHVtAI1DLjIwNOQhJlLpUK GhSSVePAKfbc9MNGReCDDxGiO9ANDxOHCsYDWdRNyuNIAcSWG4DBPtIREoLMLqAH2QDdYwWPLaSdxdOI CcYHFaBOFtfu2VUGApSBHzPoO0SKQmWSCfYPTjCFocASLtWNE8PODkYEQcZJVnYS6MWqJjMCYqLkq5OW lpCZYhGFUjfy2PXIFoPUKaWAo7IPFwVQZlFVMdCKvd HXKuDVV6CDVqLDExTCVtCZ0MFpKuAYCqXND7IHFkXBHjYTCwkp6ECZKuLUM6QxR9HUGyWQUtHAOmJXpv QEAfHTQ9XSTdXQSiVJDiHS7VGkRuXUXeASv8JPwqSAMxNAEdvt4NCZHhJEJ9QEK0TWGdFTAyBQMeUXsg FVXgJGI1JgI5QVEdEOFfMB3BYwPlWURxJIf9NFTzON NyXLAwgn5JMWRsNQY1EMQtXdWwBGCdDOPgZPk8cwUjvBXsRCo7TZ6NQ2FygpLxCOKHYc4Ll034RYWpNG ApRv4RI4nhGa0xFMZkYILUYt3FBEj1WOJyZkA1XAZ7LWK2HVS9HgL8AbufZeQ8PJK3NcN5BTa+IDw1YW S3OJT1Syk2MnxxZJBaBsa3GZZ1XpH4CZAcSYH7WD0k XSANCj4+CYacmZJqnZlkCQADJeGaUiBdOJtsHWKCKu8T ID Date Data Source [id number] 04/10/2020 09:02:47 PM EST [facility] Name Value Range Interpretation Code Description Data Adriana rce(s) Supporting Document(s) HIV 1+2 Ab+HIV1 p24 Ag [Presence] in Serum or Plasma by Immu noassay Non Reactive [facility] Negative for HIV-1 p24 antigenand HIV-1/ HIV-2 antibodies. Nolaboratory evidence of HIVinfection. ID Date Data Source [id number] 04/10/2020 09:09:50 PM [facility] Value Range Interpretation Code Description Data Adriana rce(s) Supporting Document(s) Hepatitis A virus IgM Ab [Presence] in Serum or Plasma by Im munoassay Non Reactive [facility] No acute infection, susceptible to infec tion. Hepatitis B virus core IgM Ab [Presence] in Serum or Plasma by Immunoassay Non Reactive [facility] IgM antibodies to HBc were not detected, does not exclude the possibility of exposure to HBV. Hepatitis C virus Ab [Presence] in Serum or Plasma by Immuno assay Non Reactive [facility] No serological evidence of active infect ion. If recent exposure is suspected, test for HCV RNA. Hepatitis B virus surface Ag [Presence] in Serum or Plasma b y Immunoassay Non Reactive [facility] No active or previous infection. Suscept ible to infection. ID Date Data Source [id number] 04/10/2020 09:09:50 PM [facility] Value Range Interpretation Code Description Data Adriana rce(s) Supporting Document(s) Treponema pallidum Ab [Presence] in Serum Non Reactive [facility] ID Date Data Source [id number] 04/10/2020 09:09:50 PM [facility] Value Range Interpretation Code Description Data Adriana rce(s) Supporting Document(s) Folate [Mass/volume] in Serum or Plasma 5.97 ng/mL >4.77 [facility] ID Date Data Source [id number] 04/10/2020 09:09:50 PM [facility] Value Range Interpretation Code Description Data Adriana rce(s) Supporting Document(s) Calcidiol [Mass/volume] in Serum or Plasma 16 ng/mL >30 L [facility] ID Date Data Source [id number] 04/10/2020 09:36:16 PM [facility] Value Range Interpretation Code Description Data Adriana rce(s) Supporting Document(s) Borrelia burgdorferi IgG Ab [Presence] in Serum by Immunoassay Negative [facility] Borrelia burgdorferi IgM Ab [Presence] in Serum by Immunoassay Negative [facility] ID Date Data Source [id number] 04/10/2020 10:43:17 PM [facility] Value Range Interpretation Code Description Data Adriana rce(s) Supporting Document(s) Hepatitis B virus surface Ab [Units/volume] in Serum or Plas ma by Immunoassay >11.4 [facility] ReactiveImmunity due to hepatitis B immu nization or natural infection. ID Date Data Source [id number] 04/12/2020 09:27:43 AM [facility] Value Range Interpretation Code Description Data Adriana rce(s) Supporting Document(s) Mdaq-4-Vmszbtfqwrhg IgA <20 [facility] ID Date Data Source [id number] 04/12/2020 09:27:43 AM [facility] Value Range Interpretation Code Description Data Adriana rce(s) Supporting Document(s) Anticardiolipin IgA 3.2 CU <20 [facility] Negative ID Date Data Source [id number] 04/12/2020 12:40:18 PM [facility] Value Range Interpretation Code Description Data Adriana rce(s) Supporting Document(s) Neutrophil cytoplasmic Ab [Presence] in Serum by Immunofluoresce nce Negative [facility] ID Date Data Source [id number] 04/12/2020 01:09:29 PM [facility] Value Range Interpretation Code Description Data Adriana rce(s) Supporting Document(s) Nuclear Ab Pattern Homogenous [Titer] in Serum <80 [facility] Nuclear Ab pattern.speckled [Titer] in Serum 80 1/dil <80 H [facility] Nuclear Ab pattern.rim [Titer] in Serum <80 [facility] Nuclear Ab pattern.nucleolar [Titer] in Serum <80 [facility] ID Date Data Source [id number] 04/12/2020 01:20:06 PM [facility] Value Range Interpretation Code Description Data Adriana rce(s) Supporting Document(s) Sjogrens syndrome-A extractable nuclear Ab [Units/volume] in Serum by Immunofluorescence 13 [AU]/mL 0-99 [facility] Sjogrens syndrome-B extractable nuclear Ab [Units/volume] in Serum by Immunofluorescence 8 [AU]/mL 0-99 [facility] Field extractable nuclear Ab [Units/volume] in Serum b y Immunofluorescence 11 [AU]/mL 0-99 [facility] Ribonucleoprotein extractable nuclear Ab [Units/volume] in Serum by Immunofluorescence 17 U/ML 0-[address] [place] [address] SCL-70 extractable nuclear Ab [Units/volume] in Serum 9 [AU]/mL 0-[address] [place] [address] Haley-1 extractable nuclear Ab [Units/volume] in Serum by Immunofluorescence 25 [AU]/mL [address] [place] [address] DNA double strand Ab [Units/volume] in Serum by Immunofluore scence 0 [IU]/mL [address] [place] [address] Centromere Ab [Units/volume] in Serum 13 [AU]/mL [address] [place] [address] Histone IgG Ab [Units/volume] in Serum 12 [AU]/mL [address] [place] [address] ID Date Data Source [id number] 04/12/2020 02:44:51 PM [facility] Value Range Interpretation Code Description Data Adriana rce(s) Supporting Document(s) Protein [Mass/volume] in Serum or Plasma 7.2 g/dL 6.4-8.3 [facility] Albumin [Mass/volume] in Serum or Plasma by Electrophoresis 4.98 g/dL 3.80-5.78 [facility] Alpha 1 globulin [Mass/volume] in Serum or Plasma by Electro phoresis 0.15 g/dL 0.08-0.23 [facility] Alpha 2 globulin [Mass/volume] in Serum or Plasma by Electro phoresis 0.61 g/dL 0.45-0.92 [facility] Beta globulin [Mass/volume] in Serum or Plasma by Electropho resis 0.73 g/dL 0.50-1.03 [facility] Gamma globulin [Mass/volume] in Serum or Plasma by Electroph oresis 0.72 g/dL 0.54-1.30 [facility] Protein.monoclonal [Mass/volume] in Serum or Plasma by Electrophoresi s 0 [facility] Normally migrating gamma globulins Pathologist name [facility] ID Date Data Source [id number] 04/13/2020 11:18:24 AM [facility] Value Range Interpretation Code Description Data Adriana rce(s) Supporting Document(s) Varicella zoster virus IgG Ab [Presence] in Serum by Immunoassay 4. 32 {ISR} [facility] PositiveIndicates presence of detectable IgGantibody to Varicella-Zoster Virus bythe JORDY test. Indicative of current orprevious infection. ID Date Data Source [id number] 04/13/2020 12:35:52 PM [facility] Value Range Interpretation Code Description Data Adriana rce(s) Supporting Document(s) Cardiolipin IgG Ab [Interpretation] in Serum 10.2 U/mL <20.0 [facility] Negative results do not rule out Antipho spholipid syndrome. Additional APL testing should be considered. ID Date Data Source [id number] 04/13/2020 12:35:52 PM [facility] Value Range Interpretation Code Description Data Adriana rce(s) Supporting Document(s) Cardiolipin IgM Ab [Interpretation] in Serum 1.0 U/mL <20.0 [facility] Negative results do not rule out Antipho spholipid syndrome. Additional APL testing should be considered. ID Date Data Source [id number] 04/13/2020 02:09:08 PM [facility] Value Range Interpretation Code Description Data Adriana rce(s) Supporting Document(s) Angiotensin converting enzyme [Enzymatic activity/volu me] in Serum or Plasma 15 U/L 14-82 [facility] (NOTE)Performed At: [facility] [address] [id number] Morejon MD Ph:[phone] ID Date Data Source [id number] 04/16/2020 10:41:34 AM [facility] Value Range Interpretation Code Description Data Adriana rce(s) Supporting Document(s) Aquaporin 4 receptor IgG Ab [Presence] in Serum or Plasma Negative [facility] (NOTE)Recommend repeat testing in 6 [facility] hs if clinical suspicion is high. Negative result can occur in the setting of immunosuppression. ADDITIONAL INFORMATION This test was developed and its performance characteristics determined by [facility] in a manner consistent with CLIA requirements. This test has not been cleared or approved by the [place].S. Food and Drug Administration.Test Performed by:[address] [address]Xtn Director: Jerry Morse M.D. Ph.D.; CLIA# [id number] ID Date Data Source [id number] 04/17/2020 07:05:55 PM [facility] Value Range Interpretation Code Description Data Adriana rce(s) Supporting Document(s) Methylmalonate [Moles/volume] in Serum or Plasma 173 nmol/L 0-378 [facility] Disclaimer [facility] (NOTE)This test was developed and its pe rformance characteristicsdetermined by [facility]. It has not been cleared or approvedby the Food and Drug Administration.Performed At: [facility] [place], [place] [id number] Sanjai MD Ph:[phone] ID Date Data Source [id number] 04/21/2020 02:08:19 PM EDT [facility] Name Value Range Interpretation Code Description Data Adriana rce(s) Supporting Document(s) Index Value 3.39 [facility] HERB virus Ab [Presence] in Serum or Plasma by Immunoassay A [facility] (NOTE)Index interpretive criteria: <0.20 negative 0.20-0.40 indeterminate >0.40 positiveTesting not performedComment(NOTE)Positive: Antibodies to HERB virus (JCV) detected indicating the patient has been exposed to JCV at an undetermined timeNegative: Antibodies to JCV not detectedPerformed At: [facility] [address] [place], [place] [id number] Jon M MD Ph:[phone] At: [facility] [id number] Morejon MD Ph:[phone](NOTE)Negative: Antibodies to JCV not detected.Inde terminate: Low level reactivity detected, see Inhibition Assay result to follow for the final antibody result.Positive: Antibodies to HERB virus (JCV) detected indicating the patient has been exposed to JCV at an undetermined time.The STRATIFY JCV Antibody Test is an enzyme- linkedimmunosorbent assay (JORDY) designed to detect JCV antibodiesto help identify individuals who have been exposed to thevirus. Samples with low level reactivity in the detectionassay are retested in a confirmation (inhibition) assay toconfirm presence or absence of JCV-specific antibodies.Retrospective analyses of post marketing data from varioussources, including observational studies and spontaneousreports obtained worldwide, suggest that the risk ofdeveloping PML may be associated with relative levels ofserum anti-JCV antibody as measured by anti-JCV antibodyindex.1 .1TYSABRI (natalizumab) Prescribing Information. ID Date Data Source [id number] 04/10/2020 06:38:36 PM [facility] Value Range Interpretation Code Description Data Adriana rce(s) Supporting Document(s) Homocysteine [Moles/volume] in Serum or Plasma 58.1 umol/L <15.0 H [facility] HemolyzedConfirmed ID Date Data Source [id number] 04/10/2020 09:06:17 PM [facility] Value Range Interpretation Code Description Data Adriana rce(s) Supporting Document(s) C reactive protein [Mass/volume] in Serum or Plasma <8.0 [facility] ID Date Data Source [id number] 04/10/2020 09:06:17 PM [facility] Value Range Interpretation Code Description Data Adriana rce(s) Supporting Document(s) Cobalamin (Vitamin B12) [Mass/volume] in Serum or Plasma 353 pg/ml 2 11-946 [facility] ID Date Data Source [id number] 04/10/2020 09:06:17 PM [facility] Value Range Interpretation Code Description Data Adriana rce(s) Supporting Document(s) IgG [Mass/volume] in Serum or Plasma 1079 mg/dL 700-1600 [facility] IgA [Mass/volume] in Serum or Plasma 266 mg/dL 70-400 [facility] IgM [Mass/volume] in Serum or Plasma 108 mg/dL 30-230 [facility] ID Date Data Source [id number] 04/10/2020 09:06:17 PM [facility] Value Range Interpretation Code Description Data Adriana rce(s) Supporting Document(s) Albumin [Mass/volume] in Serum or Plasma by Bromocresol green (BCG) dye binding method 5.0 g[facility] 3.5[facility].2 [facility] Bil[facility].total [Mass/volume] in Serum or Plasma 0.7 mg/dL <1.2 [facility] Bilirubin.direct [Mass/volume] in Serum or Plasma <0.3 [facility] Alkaline phosphatase [Enzymatic activity/volume] in Serum or Plasma 83 U/L 40-129 [facility] Aspartate aminotransferase [Enzymatic activity/volume] in Serum or Plasma 13 U/L <40 [facility] Alanine aminotransferase [Enzymatic activity/volume] in Seru m or Plasma 23 U/L <41 [facility] Protein [Mass/volume] in Serum or Plasma 7.7 g/dL 6.4-8.3 [facility] ID Date Data Source [id number] 04/12/2020 12:28:03 PM [facility] Name Value Range Interpretation Code Description Data Adriana rce(s) Supporting Document(s) Lupus anticoagulant neutralization plate let [Time] in Platelet poor plasma by Coagulation assay 7.7 sec <8.0 [facility] ID Date Data Source [id number] 04/10/2020 01:53:00 [place] [address] RESPIRATORY CARE REPORT ==== ---------NAME------- NUMBER SEX AGE ADMIT DISC. XRAY# F/C TYPEMURPHY DELONTE M [id number] M [id number] 04/09/20 04/09/20 [id number] X6B E/R DATE OF : 1985 M/R# [id number] #: [id number] VT-01 LOCATION: [facility] [address] COMPLETE:04/09/20 1 5:44 23614 PHYSICIAN: ALICIA Name Value Range Interpretation Code Description Data Adriana rce(s) Supporting Document(s) ID Date Data Source [id number] 04/10/2020 08:45:00 AM [facility] Value Range Interpretation Code Description Data Adriana rce(s) Supporting Document(s) [facility] PHQXCw9qBrXKFrMky0QjCpKbXGDzZK1wsyi5L7L1bJYgD4IksLRig6eqU8QzR3MeBJCaCIWMRA4QoCIo jb2 [file] M2g3MCNoTTipQG1njgOlQFUdPqqwLm4piQM1EVSnNtmEBi1Iz4HkmpO7hbSxFwF7NRB4AuSdDW9X ID Date Data Source [id number] 04/10/2020 03:48:39 AM EST [facility] Name Value Range Interpretation Code Description Data Adriana rce(s) Supporting Document(s) Leukocytes [#/volume] in Blood by Automated count 6.9 10*3/uL 4-10 [facility] Erythrocytes [#/volume] in Blood by Automated count 4.51 10*6/uL 4.6- 6.1 L [facility] Hemoglobin [Mass/volume] in Blood 13.7 g/dL 13.5-18 [facility] Hematocrit [Volume Fraction] of Blood by Automated count 39.9 % 4 1-53 L [facility] Erythrocyte mean corpuscular volume [Entitic volume] by Auto mated count 88.4 fL 80-96 [facility] Erythrocyte mean corpuscular hemoglobin [Entitic mass] by Automated count 30.5 pg 27-33 [facility] Erythrocyte mean corpuscular hemoglobin concentration [Mass/volume] by Automated [facility] 34.5 g/dL 32.0-36.0 [facility] width [Ratio] by Automated count 13.7 % 11.5-14.5 [facility] Platelets [#/volume] in Blood by Automated count 355 10*3/uL 150-400 [facility] Differential cell count method - Blood [facility] Neutrophils/100 leukocytes in Blood by Automated count 45 % [facility] Lymphocytes/100 leukocytes in Blood by Automated count 41 % [facility] Monocytes/100 leukocytes in Blood by Automated count 10 % [facility] Eosinophils/100 leukocytes in Blood by Automated count 4 % [facility] Basophils/100 leukocytes in Blood by Automated count 0 % [facility] Neutrophils [#/volume] in Blood by Automated count 3.08 10*3/uL 1.8-7 .0 [facility] Lymphocytes [#/volume] in Blood by Automated count 2.83 10*3/uL 1.2-4 .0 [facility] Monocytes [#/volume] in Blood by Automated count 0.68 10*3/uL 0-0.8 [facility] Eosinophils [#/volume] in Blood by Automated count 0.28 10*3/uL 0-0.5 [facility] Basophils [#/volume] in Blood by Automated count 0.01 10*3/uL 0-0.2 [facility] Nucleated erythrocytes/100 leukocytes [Ratio] in Blood by Automated count 0 /100{WBCs} 0-0 [facility] ID Date Data Source [id number] 04/10/2020 04:09:13 AM [facility] Name Value Range Interpretation Code Description Data Adriana rce(s) Supporting Document(s) Bicarbonate [Moles/volume] in Serum 23 mmol/L 22-29 [facility] Chloride [Moles/volume] in Serum or Plasma 105 mmol/L 98-107 [facility] Creatinine [Mass/volume] in Serum or Plasma 0.87 mg/dL 0.70-1.20 [facility] Glucose [Mass/volume] in Serum or Plasma 89 mg/dL 70-140 [facility] Potassium [Moles/volume] in Serum or Plasma 3.9 mmol/L 3.4-5.1 [facility] Sodium [Moles/volume] in Serum or Plasma 138 mmol/L 136-145 [facility] Urea nitrogen [Mass/volume] in Serum or Plasma 10 mg/dL 6-20 [facility] Anion gap 3 in Serum or Plasma 10 mmol/L 8-15 [facility] Osmolality of Serum or Plasma by calculation 285 mosm/kg 275-300 [facility] Creatinine/Urea nitrogen [Mass Ratio] in Serum or Plasma 11 [facility] Calcium [Mass/volume] in Serum or Plasma 8.7 mg/dL 8.6-10.0 [facility] Glomerular filtration rate/1.73 sq M pre dicted among non-blacks [Volume Rate/Area] in Serum or Plasma by Creatinine-based formula (MDRD) >6 0 [facility] Glomerular filtration rate/1.73 sq M pre dicted among blacks [Volume Rate/Area] in Serum or Plasma by Creatinine-based formula (MDRD) >60 [facility] ID Date Data Source [id number] 04/09/2020 07:48:25 PM [facility] Name Value Range Interpretation Code Description Data Adriana rce(s) Supporting Document(s) Glucose [Mass/volume] in Capillary blood by Glucometer 98 mg/dL 70- 140 [facility] ID Date Data Source [id number] 04/09/2020 08:12:00 PM EST [facility] Name Value Range Interpretation Code Description Data Adriana rce(s) Supporting Document(s) Leukocytes [#/volume] in Blood by Automated count 8.5 10*3/uL 4-10 [facility] Erythrocytes [#/volume] in Blood by Automated count 4.96 10*6/uL 4.6- 6.1 [facility] Hemoglobin [Mass/volume] in Blood 15.2 g/dL 13.5-18 [facility] Hematocrit [Volume Fraction] of Blood by Automated count 44.3 % 4 1-53 [facility] Erythrocyte mean corpuscular volume [Entitic volume] by Auto mated count 89.3 fL 80-96 [facility] Erythrocyte mean corpuscular hemoglobin [Entitic mass] by Automated count 30.7 pg 27-33 [facility] Erythrocyte mean corpuscular hemoglobin concentration [Mass/volume] by Automated count 34.3 g/dL 32.0-36.0 [facility] width [Ratio] by Automated count 14.2 % 11.5-14.5 [facility] Platelets [#/volume] in Blood by Automated count 398 10*3/uL 150-400 [facility] Differential cell count method - Blood [facility] Neutrophils/100 leukocytes in Blood by Automated count 52 % [facility] Lymphocytes/100 leukocytes in Blood by Automated count 37 % [facility] Monocytes/100 leukocytes in Blood by Automated count 8 % [facility] Eosinophils/100 leukocytes in Blood by Automated count 2 % [facility] Basophils/100 leukocytes in Blood by Automated count 1 % [facility] Neutrophils [#/volume] in Blood by Automated count 4.43 10*3/uL 1.8-7 .0 [facility] Lymphocytes [#/volume] in Blood by Automated count 3.14 10*3/uL 1.2-4 .0 [facility] Monocytes [#/volume] in Blood by Automated count 0.69 10*3/uL 0-0.8 [facility] Eosinophils [#/volume] in Blood by Automated count 0.17 10*3/uL 0-0.5 [facility] Basophils [#/volume] in Blood by Automated count 0.06 10*3/uL 0-0.2 [facility] Nucleated erythrocytes/100 leukocytes [Ratio] in Blood by Automated count 0 /100{WBCs} 0-0 [facility] ID Date Data Source [id number] 04/09/2020 08:26:36 PM [facility] Name Value Range Interpretation Code Description Data Adriana rce(s) Supporting Document(s) Prothrombin time (PT) 13.3 s 12.5-14.9 [facility] INR in Platelet poor plasma by Coagulation assay 1.00 [facility] Routine intensity oral anticoagulation I NR is typically 2.0-3.0. Target INR must be clinically individualized. ID Date Data Source [id number] 04/09/2020 08:42:50 PM [facility] Name Value Range Interpretation Code Description Data Adriana rce(s) Supporting Document(s) Cholesterol [Mass/volume] in Serum or Plasma 169 mg/dL <200 [facility] Triglyceride [Mass/volume] in Serum or Plasma 157 mg/dL <150 H [facility] Cholesterol in HDL [Mass/volume] in Serum or Plasma 40 mg/dL >40 L [facility] Cholesterol in LDL [Mass/volume] in Serum or Plasma by calcu lation 98 mg/dL <100 [facility] Cholesterol in VLDL [Mass/volume] in Serum or Plasma by calc ulation 31 mg/dl 16-42 [facility] Cholesterol non HDL [Mass/volume] in Serum or Plasma 129 mg/dL <130 [facility] ID Date Data Source [id number] 04/09/2020 08:42:50 PM [facility] Value Range Interpretation Code Description Data Adriana rce(s) Supporting Document(s) Albumin [Mass/volume] in Serum or Plasma by Bromocresol green (BCG) dye binding method 4.5 g/dL 3.5-5.2 [facility] Bilirubin.total [Mass/volume] in Serum or Plasma 0.4 mg/dL <1.2 [facility] Calcium [Mass/volume] in Serum or Plasma 9.0 mg/dL 8.6-10.0 [facility] Chloride [Moles/volume] in Serum or Plasma 106 mmol/L 98-107 [facility] Creatinine [Mass/volume] in Serum or Plasma 0.87 mg/dL 0.70-1.20 [facility] Glucose [Mass/volume] in Serum or Plasma 89 mg/dL 70-140 [facility] Alkaline phosphatase [Enzymatic activity/volume] in Serum or Plasma 77 U/L 40-129 [facility] Potassium [Moles/volume] in Serum or Plasma 3.9 mmol/L 3.4-5.1 [facility] Protein [Mass/volume] in Serum or Plasma 7.0 g/dL 6.4-8.3 [facility] Sodium [Moles/volume] in Serum or Plasma 139 mmol/L 136-145 [facility] Aspartate aminotransferase [Enzymatic activity/volume] in Serum or Plasma 13 U/L <40 [facility] Urea nitrogen [Mass/volume] in Serum or Plasma 8 mg/dL 6-20 [facility] Osmolality of Serum or Plasma by calculation 286 mosm/kg 275-300 [facility] Creatinine/Urea nitrogen [Mass Ratio] in Serum or Plasma 9 [facility] Bicarbonate [Moles/volume] in Serum 22 mmol/L 22-29 [facility] Alanine aminotransferase [Enzymatic activity/volume] in Seru m or Plasma 22 U/L <41 [facility] Anion gap 3 in Serum or Plasma 11 mmol/L 8-15 [facility] Glomerular filtration rate/1.73 sq M pre dicted among non-blacks [Volume Rate/Area] in Serum or Plasma by Creatinine-based formula (MDRD) >6 0 [facility] Glomerular filtration rate/1.73 sq M pre dicted among blacks [Volume Rate/Area] in Serum or Plasma by Creatinine-based formula (MDRD) >60 [facility] ID Date Data Source [id number] 04/09/2020 08:42:50 PM [facility] Name Value Range Interpretation Code Description Data Adriana rce(s) Supporting Document(s) Thyrotropin [Units/volume] in Serum or Plasma 2.340 u[IU]/mL 0.270-4. 200 [facility] ID Date Data Source [id number] 04/09/2020 08:26:10 PM [facility] Name Value Range Interpretation Code Description Data Adriana rce(s) Supporting Document(s) Hemoglobin A1c/Hemoglobin.total in Blood by HPLC 5.6 % 4.0-6.0 [facility] (NOTE)<5.7% Average risk of diabetes (ADA)5.7-6.4% Increased risk of diabetes(ADA)>/= 6.5% Diagnostic for diabetes(ADA) Glucose mean value [Mass/volume] in Blood Estimated fr om glycated hemoglobin 114 mg/dL <126 [facility] ID Date Data Source [id number] 04/09/2020 02:47:00 PM [facility] NOT DETECTEDNOT DETECTED{ PROC EDURAL CONTROL VALID KIT LOT # _[id number] 04/09/20.1447.DW . KIT EXP DATE _17-10-76 04/09/20.DW . NORMAL RANGE IS NOT DETECTEDNEGATIVE RESULTS SHOULD BE TREATED PRESUMPTIVE AND, IF INCONSISTENT WITHCLINICAL SIGNS AND SYMPTOMS OR NECESSARY FOR PATIENT MANAGEMENT, SHOULD BETESTED WITH DIFFERENT AUTHORIZED OR CLEARED MOLECULAR TESTS. NEGATIVE RESULTSDO NOT PRECLUDE SARS-CoV-2 INFECTION AND SHOULD NOT BE USED THE SOLE BASISFOR PATIENT MANAGEMENT DECISIONS. Name Value Range Interpretation Code Description Data Adriana rce(s) Supporting Document(s) ID Date Data Source [id number] 04/14/2020 06:06:00 PM EST [facility] [id number] Name Value Range Interpretation Code Description Data Adriana rce(s) Supporting Document(s) Bacteria identified in Blood by Culture [facility] NO GROWTH AFTER 5 DAYS ID Date Data Source [id number] 04/14/2020 08:04:00 AM EST [facility] [id number] Name Value Range Interpretation Code Description Data [facility] rce(s) Supporting Document(s) TRIMETHOPRIM/SULFAMETHOXAZOLE <0.5/9.5 Mejia sceptible. Indicates for microbiology susceptibilities only. [facility] Amoxicillin+Clavulanate [Susceptibility] by Minimum inhibitory concentration (CHRIS) <4/2 Susceptible. Indicates for microbiology s usceptibilities only. [facility] Ampicillin [Susceptibility] by Minimum inhibitory concentration (CHRIS) <2 Resistant. Indicates for microbiology susceptibilities only. [facility] Ampicillin+Sulbactam [Susceptibility] by Minimum inhib itory concentration (CHRIS) <8/4 Susceptible. Indicates for microbiology suscepti bilities only. [facility] Cefazolin [Susceptibility] by Minimum inhibitory concentration ( CHRIS) <4 Susceptible. Indicates for microbiology susceptibilities only. [facility] Ciprofloxacin [Susceptibility] by Minimum inhibitory concentrati on (CHRIS) <1 Susceptible. Indicates for microbiology susceptibilities only. [facility] Clindamycin [Susceptibility] by Minimum inhibitory concentration (CHRIS) >4 Resistant. Indicates for microbiology susceptibilities only. [facility] Erythromycin [Susceptibility] by Minimum inhibitory concentratio n (CHRIS) >4 Resistant. Indicates for microbiology susceptibilities only. [facility] Gentamicin [Susceptibility] by Minimum inhibitory concentration (CHRIS) <4 Susceptible. Indicates for microbiology susceptibilities only. [facility] Oxacillin [Susceptibility] by Minimum inhibitory concentration ( CHRIS) <0.25 Susceptible. Indicates for microbiology susceptibilities only. [facility] Penicillin [Susceptibility] by Minimum inhibitory concentration (CHRIS) >8 Resistant. Indicates for microbiology susceptibilities only. [facility] Tetracycline [Susceptibility] by Minimum inhibitory concentratio n (CHRIS) <4 Susceptible. Indicates for microbiology susceptibilities only. [facility] Vancomycin [Susceptibility] by Minimum inhibitory concentration (CHRIS) 1 Susceptible. Indicates for microbiology susceptibilities only. [facility] Levofloxacin [Susceptibility] by Minimum inhibitory concentratio n (CHRIS) <1 Susceptible. Indicates for microbiology susceptibilities only. [facility] Moxifloxacin [Susceptibility] by Minimum inhibitory concentratio n (CHRIS) <0.5 Susceptible. Indicates for microbiology susceptibilities only. [facility] ID Date Data Source [id number] 04/19/2020 09:32:00 AM EDT [facility] Name Value Range Interpretation Code Description Data Adriana rce(s) Supporting Document(s) CULTURE BLOOD [facility] spital _CULTURE BLOOD_ TEST PERFORM ED AT [address] [address] CLIA# [id number] SEE SCANNED REPORT{ PRELIM ID Date Data Source [id number] 04/09/2020 02:12:00 PM EST [facility] Name Value Range Interpretation Code Description Data Adriana rce(s) Supporting Document(s) COMPREHENSIVE METABOLIC PANEL [facility] COMPREHENSIVE METABOLIC PANEL Sodium [Moles/volume] in Serum or Plasma 133 mEq/L 134 - 153 L [facility] Potassium [Moles/volume] in Serum or Plasma 4.4 mEq/L 3.6 - 5.0 [facility] Chloride [Moles/volume] in Serum or Plasma 99 mEq/L 98 - 107 [facility] Carbon dioxide, total [Moles/volume] in Serum or Plasma 23 MEQ/L 22 - 30 [facility] Glucose [Mass/volume] in Serum or Plasma 89 MG/DL 70 - 99 [facility] BUN 10 MG/DL 7 - 21 [facility] Creatinine [Mass/volume] in Serum or Plasma 0.9 MG/DL 0.7 - 1.5 [facility] BUN/CREAT 11 8 - 27 [facility] Protein [Mass/volume] in Serum or Plasma 7.7 G/DL 6.3 - 8.2 [facility] Albumin [Mass/volume] in Serum or Plasma 5.0 G/DL 3.9 - 5.0 [facility] Globulin [Mass/volume] in Serum by calculation 2.7 GM/DL 2.4 - 3.2 [facility] A/G RATIO 1.9 0.8 - 2.0 [facility] Calcium [Mass/volume] in Serum or Plasma 9.8 MG/DL 8.4 - 10.2 [facility] Bilirubin.total [Mass/volume] in Serum or Plasma <0.7 MG/DL 0.2 - 1.3 [facility] Alkaline phosphatase [Enzymatic activity/volume] in Serum or Plasma 79 U/L 38 - 126 [facility] Aspartate aminotransferase [Enzymatic activity/volume] in Serum or Plasma 14 U/L 5 - 40 [facility] Alanine aminotransferase [Enzymatic activity/volume] in Seru m or Plasma 25 U/L 7 - 56 [facility] Anion gap 3 in Serum or Plasma 11.0 mmol/L 8.0 - 16.0 [facility] AGE 34 yrs [facility] NON-AA GFR >60 mL/min [facility] ital AFR AMER GFR >60 mL/min [facility] Male GFR In terprentation 20-49 yrs >60 mL/min Normal 50-59 yrs >56 mL/min Normal 60-69 yrs >49 mL/min Normal 70-79yrs >42 mL/min Normal 80 and above >35 mL/min Normal Female GFR Interpretation 20-39 yrs >60 mL/min Normal 40-49 yrs >58 mL/min Normal 50-59 yrs >51 mL/min Normal 60-69 yrs >45 mL/min Normal 70-79 yrs >39 mL/min Normal 80 and above >32 mL/min Normal ID Date Data Source [id number] 04/09/2020 02:05:00 PM [facility] Name Value Range Interpretation Code Description Data Adriana rce(s) Supporting Document(s) Magnesium [Mass/volume] in Serum or Plasma 2.1 MG/DL 1.7 - 2.2 [facility] ID Date Data Source [id number] 04/09/2020 01:42:00 PM [facility] Name Value Range Interpretation Code Description Data Adriana rce(s) Supporting Document(s) Prothrombin time (PT) 12.7 SECONDS 11.0 - 15.5 [facility] INR in Platelet poor plasma by Coagulation assay 0.91 0.93 - 1. 23 L [facility] aPTT in Blood by Coagulation assay 28.5 SECONDS 24.8 - 36.7 [facility] \\BLDo\\INR INTERPRETATION\\BLDx\\ Therapeutic range for Coumadin and related oral anticoagulants. - International Normalized Ratio (INR): 2.0 - 3.0 for Venous Thrombosis, Pulmonary Embolus, Tissue heart valves, Acute TX Atrial Fibrillation, Valvular heart disease and recurrent Systemic Embolism. - International Normalized Ratio (INR): 2.5 - 3.5 for Mechanical Prosthetic valve. ID Date Data Source [id number] 04/09/2020 01:42:00 PM [facility] Name Value Range Interpretation Code Description Data Adriana rce(s) Supporting Document(s) Fibrinogen [Mass/volume] in Platelet poor plasma by Co agulation assay 285.0 mg/dL 179 - 506 [facility] ID Date Data Source [id number] 04/09/2020 12:59:00 PM [facility] Name Value Range Interpretation Code Description Data Adriana rce(s) Supporting Document(s) CBC W/AUTOMATED DIFF [facility] COMPLETE BLOOD COUNT Leukocytes [#/volume] in Blood by Automated count 8.9 10^3/uL 4.2 - 1 1.0 [facility] Erythrocytes [#/volume] in Blood by Automated count 5.30 10^6/uL 4. 50 - 6.30 [facility] Hemoglobin [Mass/volume] in Blood 16.4 g/dL 14.0 - 16.0 H [facility] Hematocrit [Volume Fraction] of Blood by Automated count 46.1 % 4 1.0 - 51.0 [facility] Erythrocyte mean corpuscular volume [Entitic volume] by Auto mated count 87.0 fL 80.0 - 94.0 [facility] Erythrocyte mean corpuscular hemoglobin [Entitic mass] by Automated count 30.9 pg 27.0 - 34.0 [facility] Erythrocyte mean corpuscular hemoglobin concentration [Mass/volume] by Automated count 35.6 g/dL 31.0 - 36.0 [facility] Erythrocyte distribution width [Ratio] by Automated count 12.6 % 11.5 - 14.8 [facility] Platelets [#/volume] in Blood by Automated count 458 10^3/uL 150 - 45 0 H [facility] Platelet mean volume [Entitic volume] in Blood by Automated count 9.2 fL 7.4 - 10.4 [facility] Neutrophils/100 leukocytes in Blood by Automated count 59.1 % 37. 0 - 80.0 [facility] Lymphocytes/100 leukocytes in Blood by Manual count 30.6 % 25.0 - 40.0 [facility] Monocytes/100 leukocytes in Blood by Automated count 7.8 % 3.0 - 8.0 [facility] Eosinophils/100 leukocytes in Blood by Automated count 1.6 % 0.0 - 7.0 [facility] Basophils/100 leukocytes in Blood by Automated count 0.6 % 0.0 - 2.0 [facility] %IG 0.3 % 0.0 - 0.0 H [facility] al %NRBC 0.0 % 0.0 - 0.0 [facility] al Neutrophils [#/volume] in Blood by Automated count 5.28 10^3/uL 2.00 - 6.90 [facility] Lymphocytes [#/volume] in Blood by Automated count 2.73 10^3/uL 0.60 - 3.40 [facility] Monocytes [#/volume] in Blood by Automated count 0.70 10^3/uL 0.00 - 0.90 [facility] Eosinophils [#/volume] in Blood by Automated count 0.14 10^3/uL 0.00 - 0.70 [facility] Basophils [#/volume] in Blood by Automated count 0.05 10^3/uL 0.00 - 0.20 [facility] #IG 0.03 10^3/uL 0.00 - 0.10 [facility] ospital #NRBC 0.00 10^3/uL 0.00 - 0.00 [facility] ospital MANUAL DIFF NOT INDICATED [facility] RBC MORPH NOT INDICATED [facility] spital ID Date Data Source [id number] 04/09/2020 12:52:00 PM [facility] Name Value Range Interpretation Code Description Data Adriana rce(s) Supporting Document(s) pH of Serum or Plasma 7.47 7.32 - 7.43 H [facility] pCO2 V 33.7 mm/HG 38.0 - 51.0 L [facility] pO2 V 25.9 mm/HG 30.0 - 55.0 L [facility] Bicarbonate [Moles/volume] in Venous blood 24.0 meq/L 22.0 - 29.0 [facility] TCO2 V 25.1 meq/L 22.0 - 29.0 [facility] Base excess in Blood by calculation 1.1 -2.0 - 2.0 [facility] O2 SAT V 52.6 % 40.0 - 85.0 [facility] ital ID Date Data Source [id number] 04/11/2020 06:29:00 AM [facility] #[id number] CALLED TO MAYITO JOAQUIN AT 0630 ON 04/11/20 BY NEAL.RESULTS READ BACK.The [employer] BCID Panel is a qualitative multiplexednucleic acid-based test - PCRNormal results for each test is "Not detected"The BCID panel detects KPC,mecA,Sasha/Bresistance,enterococcus,L.monocytogenes,Staphlococcus,S.aureus,St reptococcus,GRP B, GRP A, S.pneumoniae,A.baumanii,Enterobacteriaceae,E.cloacae complex,E.coli,K.oxytoca,K.pneumoniae,Proteus,S.marcescens,H.influenzae,N.mening itidis,P.aeruginosa,C. albicans,C.glabrata ,C.krusei,C.parapsilosis,C.tropicalisTraditional Culture ID and Sensitivities w ill still beperformed on all positive blood cultures.The [employer] BCID panel may not distinguish mixed cultureswhen two or more species of the same genus or organism groupare present in a specimen.This test is a qualitative test and does not provide aquantitative value for the organism(s)in the sample.Antimicrobial resistance can occur via multiple mechanisms.A Not detected result for the [employer] antimicrobialresistance gene assays does not indicate antimicrobialsusceptibility. Subculturing and standard susceptibilitytesting of isolates is requried to determine antimicrobialsusceptibility.Results from this test must be correlated with the clinicalhistory, epidemiological data,and otherdata available to theclinician evaluating the patient.Staphylococcus species Name Value Range Interpretation Code Description Data Adriana rce(s) Supporting Document(s) ID Date Data Source [id number] 04/11/2020 06:31:00 AM [facility] Name Value Range Interpretation Code Description Data [facility] rce(s) Supporting Document(s) CULTURE BLOOD [facility] spital _CULTURE BLOOD_ [place] [address] CLIA# [id number] SEE SCANNED REPORT{ PRELIM GROWTH OF STAPH SPECIES, PT TRANSFERRED ID Date Data Source [id number] 03/31/2020 12:33:00 PM [facility] [address] [place] [address] PHONE: [phone] FAX: [phone] Name .................. : JAUN Meyer Acct Number.................. : [id number] ROOM. ................. : TR-05 Number ................... : [id number] Stay type ............. : E/R Discharge Date......... ... : 03/29/20 Admit Date ......... : 03/29/20 Admit Phys .................... : IVAN KIRK Date of ....... : 1985 Family Phys ................... : ALEX KEANE Phone .................. : [phone] Age ................................ : 34 Film# .................. .:[id number] Sex ................................. : M Unsigned transcriptions are preliminary reports and do not represent a medical or legal document CT HEAD W/O CONTRAST [id number] COMPLETE:03/29/20 14:23 MADHAV [id number] Reason(s): L sided UE numbness/double vision CT SCAN OF THE HEAD WITHOUT CONTRAST, 03/29/20: INDICATION: Left-sided upper extremity numbness and double vision. FINDINGS: The ventricular system is normal. No evidence for parenchymal loss is noted. No evidence for masses or mass effects is identified. No evidence for subdural, epidural, or subarachnoid hemorrhage is noted. The bones and soft tissues also appear normal. IMPRESSION: Unremarkable CT scan of the head without intravenous contrast. While performing the above CT examination, radiation dose reduction was accomplished utilizing automated exposure control, adjusting of the mA and kV based on the patient's body size and/or the use of imperative reconstructive techniques. CT dose 1309.3 mGycm. Examination dictated by KATHY Montoya. Examination was reviewed with Alexandra House MD, radiologist at the time of this dictation. Electronically Reviewed and Signed By ALEXANDRA HOUSE MD , 03/31/20 14:01, [place] [facility] Transcribe Initials: [facility], Transcribe Date: 03/31/20 12:33, Dictation Date: Page 1 of 2 [facility] [address] [place] [address] [place] [address] PHONE: [phone] FAX: [phone] Name .................. : JAUN Meyer Acct Number.................. : [id number] ROOM. ................. : TR-05 MR Number ................... : [id number] Stay type ............. : E/R Discharge Date......... ... : 03/29/20 Admit Date ......... : 03/29/20 Admit Phys .................... : IVAN KIRK Date of ....... : 1985 Family Phys ................... : ALEX KEANE Phone .................. : [phone] Age ................................ : 34 Film# .................. .:[id number] Sex ................................. : M Unsigned transcriptions are preliminary reports and do not represent a medical or legal document CT HEAD W/O CONTRAST [id number] COMPLETE:03/29/20 14:23 MADHAV 4855 Reason(s): L sided UE numbness/double vision Copy for: MYRON Wolf via fax Copy for: EMERGENCY DEPT via modem Copy for: 710 MED REC DISCHARGED Page 2 of 2 Name Value Range Interpretation Code Description Data Adriana rce(s) Supporting Document(s) ID Date Data Source [id number] 03/30/2020 06:35:00 PM EST [facility] [address] [place] [address] PHONE: [phone] FAX: [phone] Name .................. : JAUN Meyer Acct Number.................. : [id number] ROOM. ................. : TR-05 Number ................... : [id number] Stay type ............. : E/R Discharge Date......... ... : 03/29/20 Admit Date ......... : 03/29/20 Admit Phys .................... : IVAN KIRK Date of ....... : 1985 Family Phys ................... : ALEX KEANE Phone .................. : [phone] Age ................................ : 34 Film# .................. .:[id number] Sex ................................. : M Unsigned transcriptions are preliminary reports and do not represent a medical or legal document CT CTA HEAD W CONTRAST INC PP [id number] COMPLETE:03/29/20 14:23 MADHAV 4856 Reason(s): L sided UE numbness double vision CTA OF THE HEAD WITH CONTRAST: INDICATION: Left-sided upper extremity weakness and double vision. FINDINGS: The anterior, middle and posterior cerebral arteries are patent. The anterior and right posterior communicating artery are patent. The left posterior communicating artery is absent. The basilar artery is intact. There is no evidence of aneurysm. No enhancing intracranial mass. IMPRESSION: The major intracranial arteries are widely patent. There is an incomplete picayune of Potter with an absent left posterior communicating artery. While performing the above CT examination, radi ation dose reduction was accomplished utilizing automated exposure control, adjusting of the mA and kV based on the patient's body size and/or the use of imperative reconstructive techniques. CT dose: 1309.3 mGycm Contrast agent in mL: 75 Isovue 370 Method of administration: Intravenous Electronically Reviewed and Signed By Maninder Luis M.D. , 03/30/20 18:35, [facility] Transcribe Initials: MELANIE , Transcribe Date: 03/29/20 19:16, Dictation Date: Page 1 of 2 [place] [address] PHONE: [phone] FAX: [phone] Name .................. : JAUN MCNEIL Betsy Acct Number.................. : [id number] ROOM. ................. : TR-05 Number ................... : [id number] Stay type ............. : E/R Discharge Date......... ... : 03/29/20 Admit Date .... ..... : 03/29/20 Admit Phys .................... : IVAN KIRK Date of ....... : 1985 Family Phys ................... : LAEX KEANE Phone .................. : [phone] Age ................................ : 34 Film# .................. .:[id number] Sex ................................. : M Unsigned transcriptions are preliminary reports and do not represent a medical or legal document CT CTA HEAD W CONTRAST INC PP [id number] COMPLETE:03/29/20 14:23 MADHAV 4856 Reason(s): L sided UE numbness double vision Copy for: MYRON Wolf via fax Copy for: EMERGENCY DEPT via modem Copy for: 710 MED REC DISCHARGED Page 2 of 2 Name Value Range Interpretation Code Description Data Adriana rce(s) Supporting Document(s) ID Date Data Source [id number] 03/30/2020 06:34:00 [place] [address] PHONE: [phone] FAX: [phone] Name .................. : JAUN GARCIAN Betsy Acct Number.................. : [id number] ROOM. ................. : TR-05 Number ................... : [id number] Stay type ............. : E/R Discharge Date......... ... : 03/29/20 Admit Date ......... : 03/29/20 Admit Phys .................... : IVAN KIRK Date of ....... : 1985 Family Phys ................... : ALEX KEANE Phone .................. : [phone] Age ................................ : 34 Film# .................. .:[id number] Sex ................................. : M Unsigned transcriptions are preliminary reports and do not represent a medical or legal document CT CTA NECK W CONT INC PP [id number] COMPLETE:03/29/20 14:23 MADHAV 4857 Reason(s): L sided UE numbness/double vision CTA OF THE NECK WITH CONTRAST: INDICATION: Left-sided upper extremity weakness and double vision. FINDINGS: The lung apices are clear. The thyroid enhances normally. There is no cervical lymphadenopathy. There is no acute osseous abnormality. Mild degenerative changes are noted in the lower cervical spine. The prevertebral soft tissues are normal. The epiglottis is normal. The airway is patent. The aortic arch is normal. The takeoff of the great vessels is normal. The bilateral common, internal common and external carotid arteries are widely patent. The bilateral vertebral arteries are codominant and patent. There is no evidence of cervical vessel dissection. IMPRESSION: There is less than 50% stenosis to the bilateral internal carotid arteries according to NASCET criteria. While performing the above CT examination, radiation dose reduction was accomplished utilizing automated exposure control, adjusting of the mA and kV based on the patient's body size and/or the use of imperative reconstructive techniques. CT dose: 2047.7 mGycm Contrast agent in mL: 75 Isovue 370 Page 1 of 2 [place] [address] PHONE: [phone] FAX: [phone] Name .................. : JAUN Meyer Acct Number.................. : [id number] ROOM. ................. : TR-05 MR Number ................... : [id number] Stay type ............. : E/R Discharge Date......... ... : 03/29/20 Admit Date ..... .... : 03/29/20 Admit Phys .................... : IVAN KIRK Date of ....... : 1985 Family Phys ................... : JOHNSON DIYA Phone .................. : [phone] Age ................................ : 34 Film# .................. .:[id number] Sex ................................. : M Unsigned transcriptions are preliminary reports and do not represent a medical or legal document CT CTA NECK W CONT INC PP [id number] COMPLETE:03/29/20 14:23 MADHAV 4857 Reason(s): L sided UE numbness/double vision Method of administration: Intravenous Electronically Reviewed and Signed By Maninder Luis M.D. , 03/30/20 18:34, [facility] Transcribe Initials: MELANIE , Transcribe Date: 03/29/20 19:15, Dictation Date: Copy for: MYRON Wolf via fax Copy for: EMERGENCY DEPT via mode Copy for: 710 MED REC DISCHARGED Page 2 of 2 Name Value Range Interpretation Code Description Data Adriana rce(s) Supporting Document(s) ID Date Data Source [id number] 03/30/2020 06:22:00 PM EST [facility] [address] [place] [address] PHONE: [phone] FAX: [phone] Name .................. : JAUN Meyer Acct Number.................. : [id number] ROOM. ................. : TR-05 Number ................... : [id number] Stay type ............. : E/R Discharge Date......... ... : 03/29/20 Admit Date ......... : 03/29/20 Admit Phys .................... : IVAN KIRK Date of ....... : 1985 Family Phys ................... : [employer] Phone .................. : [phone] Age ................................ : 34 Film# .................. .:[id number] Sex ................................. : M Unsigned transcriptions are preliminary reports and do not represent a medical or legal document CHEST PORTABLE [id number] COMPLETE:03/29/20 13:01 NAT 4858 Reason(s): L UE numbness/double vision AP PORTABLE CHEST X- RAY: FINDINGS: The cardiac and mediastinal silhouettes appear normal and the lungs are clear. The bones and soft tissues are normal. The upper abdomen is unremarkable. IMPRESSION: No acute disease identifiable. Electronically Reviewed and Signed By ALEXANDRA HOUSE MD , 03/30/20 18:22, [facility] Transcribe Initials: DZ , Transcribe Date: 03/29/20 17:13, Dictation Date: Copy for: MYRON Wolf via fax Copy for: EMERGENCY DEPT via [facility] Copy for: 710 MED REC DISCHARGED Page 1 of 1 Name Value Range Interpretation Code Description Data Adriana rce(s) Supporting Document(s) ID Date Data Source [id number] 03/30/2020 08:03:00 [place] [address] RESPIRATORY CARE REPORT ==== ---------NAME------- NUMBER SEX AGE ADMIT DISC. XRAY# F/C TYPEMURPHY DELONTE Meyer [id number] 03/29/20 03/29/20 [id number] X6B E/R DATE OF : 1985 M/R# [id number] #: [id number] TR-05 LOCATION: EMERGENCY DEPT EKG 53420 COMP LETE:03/29/20 14:05 [place] [address] PHYSICIAN: IVAN CARLSON Name Value Range Interpretation Code Description Data Adriana rce(s) Supporting Document(s) ID Date Data Source [id number] 03/29/2020 11:40:00 AM [facility] 1 OrderSheet [facility] Emergency Department [address] [place] [address] Phone #: ext- [phone] 03/29/2020 11:30 Patient: DELONTE ZAMORANO Sex: M : 1985 Age: 34yWEIGHT:99.9 kg (M) HEIGHT:71 inches (S) BMI:30.7ALLERGIES: Gabapentin, ToradolCHIEF COMPLAINT: dizzinessDIAGNOSIS: Vertigo, HeadacheLAB ORDERSOrder Description Priority Entered Acknowledged InitialedCBC w Diff STAT 12:03/29/2020 12:30 Livan CHAVEZ; [place]cy RNCMP STAT 12:03/29/2020 12:30 Livan CHAVEZ; [place]cy RNLactic Acid STAT 12:03/29/2020 12:30 Livan CHAVEZ; [place]cy RNPT/PTT STAT 12:03/29/2020 12:30 Livan CHAVEZ; [place]cy RNTroponin-T STAT 12:03/29/2020 12:30 Livan CHAVEZ; Quincy RNUrinalysis (Clean STAT 12:03/29/2020 Ack'd: 12:30 14:41 LivanCatedinson) Tonio CHAVEZ; Sandy Dimas RN R.N.Urine Drug Screen STAT 12:03/29/2020 Ack'd: 12:30 14:41 Livan CHAVEZ; Sandy Dimas RN R.N.DIAGNOSTIC STUDY ORDERSOrder Description Priority Entered Acknowledged InitialedCT Head W/O Cont STAT 12:03/29/2020 Ack'd: 12:30 Sandy DimasNMorris(Oxygen?(No)) Tonio CHAVEZ; Initialed: 12:30 Livan Mathew RN Cancelled: Other 14:32 Tonio CHAVEZ Reason for Study: L sided UE numbness/double visionCT CTA HEAD W STAT 1 2:03/29/2020 Ack'd: 12:30 12:30 [employer] PP Tonio CHAVEZ; Sandy Dimas RN(Oxygen?(No)) R.N.(IV?(Yes)) Reason for Study: L sided UE numbness double vision 2 OrderSheet [facility] Emergency Department [address] [place] [address] Phone #: ext- [phone] 03/29/2020 11:30 Patient: DELONTE ZAMORANO Sex: M : 1985 Age: 34yCT CTA NECK W STAT 12:03/29/2020 Ack'd: 12:30 12:30 Shahab CHAVEZ; Sandy Dimas RN(Oxygen?(No)) R.N.(IV?(Yes)) Reason for Study: L sided UE numbness/double visionChest Portable 1 STAT 12:21 03/29/2020 Ack'd: 12:30 12:30 Ashok CHAVEZ; Sandy Dimas RN(Oxygen?(No)) R.N. Reason for Study: L UE numbn ess/double visionMEDICATION/IV/DRIP/FLUID ORDERSOrder Description Priority Entered Acknowledged InitialedNS IV : Bolus 250 12:03/29/2020 Ack'd: 12:30 12:36 Fatmata, then 75 mL/hr Tonio CHAVEZ; Sandy Dimas RN(NOW x1) R.N.Zofran IVP 4 mg 12:03/29/2020 Ack'd: 12:30 12:37 Livan CHAVEZ; Sandy Dimas RN R.N.Acetaminophen 1 g 14:03 03/29/2020 14:07 Omaira X1 dose: 1000 Tonio CHAVEZ; Quincy RNmg (NOW x1) Reason for ordering with alerts: Clinical consideration given -- 14:03/29/2020 Tonio Lara PAGENERAL ORDERSOrder Description Priority Entered Acknowledged InitialedCardiac Monitor 12:03/29/2020 12:22 Daryn(continuous) Tonio CHAVEZ; story analyst, [facility] [id number] Pressure 12:03/29/2020 12:22 Chaya CHAVEZ; story analyst, [facility] [id number] 12:03/29/2020 12:22 Daryn CHAVEZ; story analyst, [facility] Ppya9Plmrbkcvfkn stroke 12:03/29/2020 12:30 Nolan SBP<160, Tonio CHAVEZ; [place]cy RNDBP<90 mmHgIschemic stroke 12:21 03/29/2020 12:30 Nolan SBP<220, Tonio CHAVEZ; Quincy SOSA 3 OrderSheet [facility] Emergency Department [address] [place] [address] Phone #: ext- [phone] 03/29/2020 11:30 Patient: DELONTE ZAMORANO Sex: M : 1985 Age: 34yDBP<120 mmHgNPO 12:21 03/29/2020 12:30 Livan CHAVEZ; [place] RNPulse Oximetry 12:21 03/29/2020 12:30 LivanContinuous Tonio CHAVEZ; Quincy RNVitals 12:21 03/29/2020 12:30 Livan CHAVEZ; Quincy SOSAWarm blanket 12:21 03/29/2020 12:30 Livan CHAVEZ; Quincy SOSAObtain Old EKG 12:21 03/29/2020 12:30 Livan CHAEVZ; Quincy RN[Electronically signed by Sandy Dimas R.N. (14:54 03/29/2020)][Electronically signed by Tonio Lara (15:10 03/29/2020)][Electronically locked by Sandy Dimas R.N. (14:54 03/29/2020)] Name Value Range Interpretation Code Description Data Adriana rce(s) Supporting Document(s) ID Date Data Source [id number] 03/29/2020 11:40:00 AM EST [facility] 1 Medication Reconciliation Report [facility] Emergency Department [address] [place] [address] Phone #: ext- [phone] 03/29/2020 11:30 [id number] Sex[facility] M : 1985 Age: 34yWeight: 99.9 kgHeight/Length: 71 in.BMI: 30.7ALLERGIES: Gabapentin, ToradolThe patient's Home Medications are listed below:CONTINUE TAKING THE FOLLOWING MEDICATIONS: Lisinopril Oral (10 mg), dailyThe source(s) of the original Home Medication information:Not obtained.The following Medications were given to the patient in the Emergency Department:NS [IV] IV Fluids bolus 250 mL over 15 minute(s), then 75 mL/hr, administered: 12:36 03/29/2020Zofran [IVP] IVP 4 mg, administered: 12:37 03/29/2020cetaminophen [PO] PO 1000 mg, administered: 14:07 03/29/2020The following Medications were prescribed to the patient:None. Name Value Range Interpretation Code Description Data Adriana rce(s) Supporting Document(s) ID Date Data Source [id number] 03/29/2020 11:40:00 AM EST [facility] 1 Medication Administration Record [facility] Emergency Department [address] [place] [address] Phone #: ext- [phone] 03/29/2020 11:30 Patient: DELONTE ZAMORANO Sex: M : 1985 Age: 34yWeight: 99.9 kgHeight/Length: 71 inBMI: 30.7ALLERGIES: Toradol, Gabapentin Date/Time Medication Administered Medication OrderedStart NS [IV] NS IV : Bolus 250 mL, then 7512:36 03/29/2020 Dose: IV Fluids mL/hr (NOW x1)Livan Mathew RN Rate: 75 mL/hr over 8 hour(s)---- Bolus: 250 mL over 15 minute(s)Stop Dispensed: 1000 mL bag14:40 03/29/2020 Site: #1 left upper armJudieSandy R.N.Given ZOFRAN [IVP] (ONDANSETRON HCL) Zofran IVP 4 mg12:37 03/29/2020 Dose: 4 mg IVCullen Mathew RN Site: #1 left upper armGiven ACETAMINOPHEN [PO] Acetaminophen 1 g PO X1 dose:14:07 03/29/2020 Dose: 1000 mg Tablets PO 1000 mg (NOW x1)Livan Mathew RN Name Value Range Interpretation Code Description Data Adriana rce(s) Supporting Document(s) ID Date Data Source [id number] 03/29/2020 11:40:00 AM EST [facility] 1 General Instructions [facility] Emergency Department [address] [place] [address] Phone #: ext- [phone] 03/29/2020 11:30 Patient: DELONTE ZAMORANO Sex: M : 1985 Age: 34yAcute vertigo of unknown cause.Headache (non specific).(diplopia ( double vision)).INSTRUCTIONSNo strenuous activity until better. Rest at home today. Do not work for three days.Drink plenty of fluids for the next 48 hours as needed. Do not smoke. No alcohol.(no driving until symptoms resolve).Warnings: Further evaluation is necessary in order to conduct further tests and assess the possibility ofserious illness. It is very important to follow up with a healthcare provider.GENERAL WARNINGS: Return or contact your physician immediately if your condition worsens orchanges unexpectedly, if not improving as expected, or if other problems arise. SPECIFICALLY, return i fyou develop chest pain, neck pain, jaw pain, shoulder pain, arm pain, back pain, fluttering sensation in yourchest, lightheadedness, fainting, numbness, weakness or extreme fatigue.Your Current Medications: Your current home medications have been reviewed.CONTINUE TAKING THE FOLLOWING MEDICATIONS:Lisinopril Oral : Tablet 10 mg, daily.Follow-up:Follow up with your healthcare provider in three days even if well. Call for the next available appointment.Reason for referral: evaluation and recommend MRI/MRA brain, neurology, and ophthalmology referral forfourther evaluation of headache with dizziness and intermittent diplopia. Summary of care provided topatient via paper.Understanding of the discharge instructions verbalized by patient. Expected course of illness, dischargeinstructions, activity level, follow-up appointment and risks and benefits of treatment reviewed with patientand understanding verbalized. Agrees to plan of care. ADDITIONAL INFORMATIONVertigo (Unknown Cause) 2 General Instructions [facility] Emergency Department [address] [place] [address] Phone #: ext- [phone] 03/29/2020 11:30 Patient: DELONTE ZAMORANO Sex: M : 1985 Age: 34yIn addition to helping with hearing, the inner ear is part of the balance center of your body. Problemswith the inner ear can a false feeling of motion. This is called vertigo. Often, it feels as if you or theroom is spinning. A vertigo attack may cause sudden nausea, vomiting and heavy sweating. Severevertigo causes a loss of balance and can cause you to fall. During vertigo, small head movementsand changes in body position will often make the symptoms worse. You m ay also have ringing in theears called tinnitus.An episode of vertigo may last seconds, minutes or hours. Once you are over the first episode, it maynever come back. However, symptoms may return off and on.The cause of your vertigo is not yet known. Possible causes of vertigo include: Inflammation of the inner ear Disease of the nerves to the inner ear Movement of calcium particles in the inner ear Poor blood flow to the balance centers of the brain Migraine headaches In older adults, the use of more than one medicine along with some health conditionsHome care If symptoms are severe, rest quietly in bed. Change positions very slowly. There is usually one position that will feel best, such as lying on one side or lying on your back with your head slightly raised on pillows. Until you have no symptoms, you are at a higher risk of falling. Let someone help you when you get up. Get rid of home hazards such as loose electrical cords 3 General Instructions [facility] Emergency Department [address] [place] [address] Phone #: ext- [phone] 03/29/2020 11:30 Patient: DELONTE ZAMORANO Sex: M : 1985 Age: 34y and throw rugs. Don't walk in unfamiliar areas that are not lighted. Use night lights in bathrooms and kitchen areas. Do not drive a car or work with dangerous machinery until symptoms have been gone for at least one week. Take medicine as prescribed to relieve your symptoms. Unless another medicine was prescribed for symptoms of nausea, vomiting, and dizziness, you may use pakn-uye-hxkyelt motion sickness pills. Ask your pharmacist for suggestions.Follow-up careFollow up with your healthcare provider or as directed. If you are referred to a specialist or for testing,make the appointment promptly.When to seek medical adviceCall your healthcare provider if any of the following occur: Fever of 100.4F (38C) or higher, or as directed by your healthcare provider Vertigo worsens or is not controlled by prescribed medicine Repeated vomiting not relieved by prescribed medicine Severe headache Confusion Weakness of an arm or leg or 1 side of the face Difficulty with speech or vision Loss of consciousness Seizure [id number] [employer]. [address] [place] [address]88. All rights reserved. This information is not intended as asubstitute for professional medical care. Always follow your healthcare professional's instructions. You have been given the following additional information: Vertigo, Unspecified No strenuous activity until better. Rest at home today. Do not work for three days. 4 General Instructions [facility] Emergency Department [address] [place] [address] Phone #: ext- [phone] 03/29/2020 11:30 Patient: DELONTE ZAMORANO Sex: M : 1985 Age: 34y(Electronically signed by KATHY Garcia 03/29/2020 15:10) Name Value Range Interpretation Code Description Data Adriana rce(s) Supporting Document(s) ID Date Data Source [id number] 03/29/2020 11:40:00 AM EST [facility] 1 Clinical Report - Nurses [facility] Emergency Department [address] [place] [address] Phone #: ext- [phone] 03/29/2020 11:30 Patient: DELONTE ZAMORANO Sex: M :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 in Serum or Plasma 1.8 MMOL/L 0.2 - 2.2 [facility] ID Date Data Source [id number] 03/29/2020 01:09:00 PM [facility] Name Value Range Interpretation Code Description Data Adriana rce(s) Supporting Document(s) CBC W/AUTOMATED DIFF [facility] COMPLETE BLOOD COUNT Leukocytes [#/volume] in Blood by Automated count 9.3 10^3/uL 4.2 - 1 1.0 [facility] Erythrocytes [#/volume] in Blood by Automated count 4.80 10^6/uL 4. 50 - 6.30 [facility] Hemoglobin [Mass/volume] in Blood 14.8 g/dL 14.0 - 16.0 [facility] Hematocrit [Volume Fraction] of Blood by Automated count 41.4 % 4 1.0 - 51.0 [facility] Erythrocyte mean corpuscular volume [Entitic volume] by Auto mated count 86.3 fL 80.0 - 94.0 [facility] Erythrocyte mean corpuscular hemoglobin [Entitic mass] by Automated count 30.8 pg 27.0 - 34.0 [facility] Erythrocyte mean corpuscular hemoglobin concentration [Mass/volume] by Automated count 35.7 g/dL 31.0 - 36.0 [facility] Erythrocyte distribution width [Ratio] by Automated count 12.4 % 11.5 - 14.8 [facility] Platelets [#/volume] in Blood by Automated count 447 10^3/uL 150 - 45 0 [facility] Platelet mean volume [Entitic volume] in Blood by Automated count 9.0 fL 7.4 - 10.4 [facility] Neutrophils/100 leukocytes in Blood by Automated count 64.6 % 37. 0 - 80.0 [facility] Lymphocytes/100 leukocytes in Blood by Manual count 23.7 % 25.0 - 40.0 L [facility] Monocytes/100 leukocytes in Blood by Automated count 9.0 % 3.0 - 8.0 H [facility] Eosinophils/100 leukocytes in Blood by Automated count 1.7 % 0.0 - 7.0 [facility] Basophils/100 leukocytes in Blood by Automated count 0.7 % 0.0 - 2.0 [facility] %IG 0.3 % 0.0 - 0.0 [facility] %NRBC 0.0 % 0.0 - 0.0 [facility] al Neutrophils [#/volume] in Blood by Automated count 6.03 10^3/uL 2.00 - 6.90 [facility] Lymphocytes [#/volume] in Blood by Automated count 2.21 10^3/uL 0.60 - 3.40 [facility] Monocytes [#/volume] in Blood by Automated count 0.84 10^3/uL 0.00 - 0.90 [facility] Eosinophils [#/volume] in Blood by Automated count 0.16 10^3/uL 0.00 - 0.70 [facility] Basophils [#/volume] in Blood by Automated count 0.07 10^3/uL 0.00 - 0.20 [facility] #IG 0.03 10^3/uL 0.00 - 0.10 [facility] #NRBC 0.00 10^3/uL 0.00 - 0.00 [facility] MANUAL DIFF NOT INDICATED [facility] RBC MORPH NOT INDICATED [facility] ID Date Data Source [id number] 01/23/2020 06:09:00 AM EST [place] ([facility]) Name Value Range Interpretation Code Description Data Adriana rce(s) Supporting Document(s) glucose, fasting 87 mg/dL 70-100 Glucose, Fasting AT [facility]) creatinine for GFR 1.02 mg/dL 0.70-1.30 Creatinine for GF R [place] ([facility]) blood urea nitrogen 8 mg/dL 7-18 Blood Urea Nitro gen [place] ([facility]) glomerular filtration rate > 60.0 >60 Glomerula r Filtration Rate [place] ([facility]) sodium level 140 mEq/L 136-145 Sodium Level [place] ([facility]) potassium serum 3.8 mEq/L 3.5-5.1 [facility] chloride level 107 mEq/L 98-107 Chloride Level [place] ([facility]) carbon dioxide level 25 mEq/L 21-32 Carbon Dioxide Level [place] ([facility]) calcium level 8.3 mg/dL 8.5-10.1 Below low normal Calcium Level AT [facility]) anion gap 8 mEq/L 8-16 Anion Gap [place] ([facility]) ID Date Data Source [id number] 01/23/2020 06:09:00 AM EST [place] ([facility]) Name Value Range Interpretation Code Description Data Adriana rce(s) Supporting Document(s) red blood count 4.60 10 4.30-6.10 Red Blood [facility] white blood count 6.1 10 4.0-10.0 White Blood Count [place] ([facility]) hemoglobin 14.0 g/dL 13.5-17.5 Hemoglobin [place] ([facility]) hematocrit 40.2 % 42.0-52.0 Below low normal Hematocrit [place] ( [facility]) mean corpuscular volume 87.4 fL 80.0-96.0 Mean Corpusc ular Volume [place] ([facility]) mean corpuscular hemoglobin 30.4 pg 27.0-33.0 Mean Cor puscular Hemoglobin [place] ([facility]) mean corpuscular HGB conc 34.8 g/dL 32.0-36.5 Mean Corpu scular HGB Conc [place] ([facility]) red cell distribution width 12.3 % 11.5-14.5 Red Cell Distribution Width [place] ([facility]) platelet count, automated 283 10 150-450 Platelet C ount, Automated [place] ([facility]) nucleated red blood cell % 0.0 % 0-0 Nucleated Red Blood Cell % [place] ([facility]) ID Date Data Source [id number] 01/23/2020 06:09:00 AM EST [place] ([facility]) Name Value Range Interpretation Code Description Data Adriana rce(s) Supporting Document(s) glucose, fasting 87 mg/dL 70-100 Glucose, Fasting AT [facility]) blood urea nitrogen 8 mg/dL 7-18 Blood Urea Nitro gen [place] ([facility]) creatinine for GFR 1.02 mg/dL 0.70-1.30 Creatinine for GF R [place] ([facility]) glomerular filtration rate > 60.0 >60 Glomerula r Filtration Rate [place] ([facility]) chloride level 107 mEq/L 98-107 Chloride Level [place] ([facility]) sodium level 140 mEq/L 136-145 Sodium Level [place] ([facility]) potassium serum 3.8 mEq/L 3.5-5.1 Potassium Serum [facility] ([facility]) anion gap 8 mEq/L 8-16 Anion Gap [place] ([facility]) carbon dioxide level 25 mEq/L 21-32 Carbon Dioxide Level [place] ([facility]) calcium level 8.3 mg/dL 8.5-10.1 Below low normal Calcium Level AT [facility] ([facility]) ID Date Data Source [id number] 01/23/2020 06:09:00 AM EST [place] ([facility]) Name Value Range Interpretation Code Description Data Adriana rce(s) Supporting Document(s) white blood count 6.1 10 4.0-10.0 White Blood Count [place] ([facility]) hemoglobin 14.0 g/dL 13.5-17.5 Hemoglobin [place] ([facility]) red blood count 4.60 10 4.30-6.10 Red Blood Count [facility]) hematocrit 40.2 % 42.0-52.0 Below low normal Hematocrit [place] ( [facility]) mean corpuscular volume 87.4 fL 80.0-96.0 Mean Corpusc ular Volume [place] ([facility]) mean corpuscular HGB conc 34.8 g/dL 32.0-36.5 Mean Corpu scular HGB Conc [place] ([facility]) mean corpuscular hemoglobin 30.4 pg 27.0-33.0 Mean Cor puscular Hemoglobin [place] ([facility]) red cell distribution width 12.3 % 11.5-14.5 Red Cell Distribution Width [place] ([facility]) platelet count, automated 283 10 150-450 Platelet C ount, Automated [place] ([facility]) nucleated red blood cell % 0.0 % 0-0 Nucleated Red Blood Cell % [place] ([facility]) ID Date Data Source [id number] 01/23/2020 06:09:00 AM EST [place] ([facility]) Name Value Range Interpretation Code Description Data Adriana rce(s) Supporting Document(s) glucose, fasting 87 mg/dL 70-100 Glucose, Fasting AT [facility] ([facility]) creatinine for GFR 1.02 mg/dL 0.70-1.30 Creatinine for GF R [place] ([facility]) blood urea nitrogen 8 mg/dL 7-18 Blood Urea Nitro gen [place] ([facility]) glomerular filtration rate > 60.0 >60 Glomerula r Filtration Rate [place] ([facility]) sodium level 140 mEq/L 136-145 Sodium Level [place] ([facility]) potassium serum 3.8 mEq/L 3.5-5.1 Potassium Serum [facility] ([facility]) chloride level 107 mEq/L 98-107 Chloride Level [place] ([facility]) carbon dioxide level 25 mEq/L 21-32 Carbon Dioxide Level [place] ([facility]) anion gap 8 mEq/L 8-16 Anion Gap [place] ([facility]) calcium level 8.3 mg/dL 8.5-10.1 Below low normal Calcium Level AT [facility]) ID Date Data Source [id number] 01/23/2020 06:09:00 AM EST [facility]) Name Value Range Interpretation Code Description Data Adriana rce(s) Supporting Document(s) white blood count 6.1 10 4.0-10.0 White Blood Count [place] ([facility]) hemoglobin 14.0 g/dL 13.5-17.5 Hemoglobin [place] ([facility]) red blood count 4.60 10 4.30-6.10 Red Blood Count [facility] ([facility]) mean corpuscular volume 87.4 fL 80.0-96.0 Mean Corpusc ular Volume [place] ([facility]) hematocrit 40.2 % 42.0-52.0 Below low normal Hematocrit [place] ( [facility]) mean corpuscular hemoglobin 30.4 pg 27.0-33.0 Mean Cor puscular Hemoglobin [place] ([facility]) mean corpuscular HGB conc 34.8 g/dL 32.0-36.5 Mean Corpu scular HGB Conc [place] ([facility]) red cell distribution width 12.3 % 11.5-14.5 Red Cell Distribution Width [place] ([facility]) nucleated red blood cell % 0.0 % 0-0 Nucleated Red Blood Cell % [place] ([facility]) platelet count, automated 283 10 150-450 Platelet C ount, Automated [place] ([facility]) ID Date Data Source [id number] 01/23/2020 06:09:00 AM EST [place] ([facility]) Name Value Range Interpretation Code Description Data Adriana rce(s) Supporting Document(s) blood urea nitrogen 8 mg/dL 7-18 Blood Urea Nitro gen [place] ([facility]) glucose, fasting 87 mg/dL 70-100 Glucose, Fasting AT [facility]) creatinine for GFR 1.02 mg/dL 0.70-1.30 Creatinine for GF R [place] ([facility]) glomerular filtration rate > 60.0 >60 Glomerula r Filtration Rate [place] ([facility]) sodium level 140 mEq/L 136-145 Sodium Level [place] ([facility]) chloride level 107 mEq/L 98-107 Chloride Level [place] ([facility]) potassium serum 3.8 mEq/L 3.5-5.1 Potassium Serum [facility] ([facility]) anion gap 8 mEq/L 8-16 Anion Gap [place] ([facility]) calcium level 8.3 mg/dL 8.5-10.1 Below low normal Calcium Level AT [facility] ([facility]) carbon dioxide level 25 mEq/L 21-32 Carbon Dioxide Level [place] ([facility]) ID Date Data Source [id number] 01/23/2020 06:09:00 AM EST [place] ([facility]) Name Value Range Interpretation Code Description Data Adriana rce(s) Supporting Document(s) white blood count 6.1 10 4.0-10.0 White Blood Count [place] ([facility]) red blood count 4.60 10 4.30-6.10 Red Blood Count [facility] ([facility]) mean corpuscular volume 87.4 fL 80.0-96.0 Mean Corpusc ular Volume [place] ([facility]) hemoglobin 14.0 g/dL 13.5-17.5 Hemoglobin [place] ([facility]) hematocrit 40.2 % 42.0-52.0 Below low normal Hematocrit [place] ( [facility]) mean corpuscular hemoglobin 30.4 pg 27.0-33.0 Mean Cor puscular Hemoglobin [place] ([facility]) mean corpuscular HGB conc 34.8 g/dL 32.0-36.5 Mean Corpu scular HGB Conc [place] ([facility]) nucleated red blood cell % 0.0 % 0-0 Nucleated Red Blood Cell % [place] ([facility]) red cell distribution width 12.3 % 11.5-14.5 Red Cell Distribution Width [place] ([facility]) platelet count, automated 283 10 150-450 Platelet C ount, Automated [facility]) ID Date Data Source [id number] 01/23/2020 06:09:00 AM EST [facility]) Name Value Range Interpretation Code Description Data Adriana rce(s) Supporting Document(s) glucose, fasting 87 mg/dL 70-100 Glucose, Fasting AT [facility]) blood urea nitrogen 8 mg/dL 7-18 Blood Urea Nitro gen [facility]) creatinine for GFR 1.02 mg/dL 0.70-1.30 Creatinine for GF R [facility]) glomerular filtration rate > 60.0 >60 Glomerula r Filtration Rate [place] ([facility]) sodium level 140 mEq/L 136-145 Sodium Level [place] ([facility]) potassium serum 3.8 mEq/L 3.5-5.1 [facility] chloride level 107 mEq/L 98-107 Chloride Level [place] ([facility]) carbon dioxide level 25 mEq/L 21-32 Carbon Dioxide Level [facility]) anion gap 8 mEq/L 8-16 Anion Gap [place] ([facility]) calcium level 8.3 mg/dL 8.5-10.1 Below low normal Calcium Level AT [facility]) ID Date Data Source [id number] 01/23/2020 06:09:00 AM EST [place] ([facility]) Name Value Range Interpretation Code Description Data Adriana rce(s) Supporting Document(s) white blood count 6.1 10 4.0-10.0 White Blood Count [place] ([facility]) red blood count 4.60 10 4.30-6.10 Red Blood Count [facility] ([facility]) hemoglobin 14.0 g/dL 13.5-17.5 Hemoglobin [place] ([facility]) hematocrit 40.2 % 42.0-52.0 Below low normal Hematocrit [place] ( [facility]) mean corpuscular volume 87.4 fL 80.0-96.0 Mean Corpusc ular Volume [place] ([facility]) mean corpuscular hemoglobin 30.4 pg 27.0-33.0 Mean Cor puscular Hemoglobin [place] ([facility]) mean corpuscular HGB conc 34.8 g/dL 32.0-36.5 Mean Corpu scular HGB Conc [place] ([facility]) red cell distribution width 12.3 % 11.5-14.5 Red Cell Distribution Width [place] ([facility]) platelet count, automated 283 10 150-450 Platelet C ount, Automated [place] ([facility]) nucleated red blood cell % 0.0 % 0-0 Nucleated Red Blood Cell % [place] ([facility]) ID Date Data Source [id number] 01/22/2020 09:10:00 AM EST [place] ([facility]) Name Value Range Interpretation Code Description Data Adriana rce(s) Supporting Document(s) summary final . Summary [place] ([facility]) ID Date Data Source [id number] 01/22/2020 09:10:00 AM EST [place] ([facility]) Name Value Range Interpretation Code Description Data Adriana rce(s) Supporting Document(s) pH,urine rfx 6.0 units 5.0-9.0 pH,urine Rfx [place] ([facility]) color, urine rfx yellow yellow Color, Urine Rfx AT [facility] ([facility]) appearance, urine rfx clear clear Appearance, Ur ine Rfx [place] ([facility]) glucose, urine (UA) auto rfx negative negative Glucose , Urine (UA) Auto Rfx [place] ([facility]) specific gravity ur auto rfx 1.002-1.035 Specif ic [place] Ur Auto Rfx [place] ([facility]) protein, urine auto rfx negative negative Protein, Uri ne Auto Rfx [place] ([facility]) bilirubin, urine auto rfx negative negative Bilirubin, Urine Auto Rfx [place] ([facility]) urobilinogen, urine auto rfx 0.2 mg/dL 0.0-2.0 Urobili nogen, Urine Auto Rfx [place] ([facility]) ketone, urine auto rfx negative negative Ketone, Urine Auto Rfx [place] ([facility]) blood, urine blood rfx negative negative Blood, Urine Blood Rfx [place] ([facility]) leukocyte esterase ur auto rfx negative negative Leukocyte Esterase Ur Auto Rfx [place] ([facility]) nitrite, urine auto rfx negative negative Nitrite, Uri ne Auto Rfx [place] ([facility]) RBC, urine auto rfx 0 /hpf 0-3 RBC, Urine Auto Rfx [place] ([facility]) bacteria, urine auto rfx negative negative Bacteria, U rine Auto Rfx [place] ([facility]) WBC, urine auto rfx 0 /hpf 0-3 WBC, Urine Auto Rfx [place] ([facility]) squam epithelial cell ur aurfx 0 /hpf 0-6 Squam Epithelial Cell Ur Aurfx [place] ([facility]) hyaline cast, urine auto rfx 0 /lpf 0-1 Hyaline Cast, Urine Auto Rfx [place] ([facility]) ID Date Data Source [id number] 01/22/2020 09:10:00 AM EST [place] ([facility]) Name Value Range Interpretation Code Description Data Adriana rce(s) Supporting Document(s) summary final . Summary [place] ([facility]) ID Date Data Source [id number] 01/22/2020 09:10:00 AM EST [place] ([facility]) Name Value Range Interpretation Code Description Data Adriana rce(s) Supporting Document(s) color, urine rfx yellow yellow Color, Urine Rfx AT [place] ([facility]) appearance, urine rfx clear clear Appearance, Ur ine Rfx [place] ([facility]) pH,urine rfx 6.0 units 5.0-9.0 pH,urine Rfx [place] ([facility]) specific gravity ur auto rfx 1.002-1.035 Specif ic [place] Ur Auto Rfx [place] ([facility]) protein, urine auto rfx negative negative Protein, Uri ne Auto Rfx [place] ([facility]) glucose, urine (UA) auto rfx negative negative Glucose , Urine (UA) Auto Rfx [place] ([facility]) ketone, urine auto rfx negative negative Ketone, Urine Auto Rfx [place] ([facility]) bilirubin, urine auto rfx negative negative Bilirubin, Urine Auto Rfx [place] ([facility]) urobilinogen, urine auto rfx 0.2 mg/dL 0.0-2.0 Urobili nogen, Urine Auto Rfx [place] ([facility]) leukocyte esterase ur auto rfx negative negative Leukocyte Esterase Ur Auto Rfx [place] ([facility]) blood, urine blood rfx negative negative Blood, Urine Blood Rfx [place] ([facility]) nitrite, urine auto rfx negative negative Nitrite, Uri ne Auto Rfx [place] ([facility]) RBC, urine auto rfx 0 /hpf 0-3 RBC, Urine Auto Rfx [place] ([facility]) WBC, urine auto rfx 0 /hpf 0-3 WBC, Urine Auto Rfx [place] ([facility]) bacteria, urine auto rfx negative negative Bacteria, U rine Auto Rfx [place] ([facility]) squam epithelial cell ur aurfx 0 /hpf 0-6 Squam Epithelial Cell Ur Aurfx [place] ([facility]) hyaline cast, urine auto rfx 0 /lpf 0-1 Hyaline Cast, Urine Auto Rfx [place] ([facility]) ID Date Data Source [id number] 01/22/2020 09:10:00 AM EST [place] ([facility]) Name Value Range Interpretation Code Description Data Adriana rce(s) Supporting Document(s) summary final . Summary [place] ([facility]) ID Date Data Source [id number] 01/22/2020 09:10:00 AM EST [place] ([facility]) Name Value Range Interpretation Code Description Data Adriana rce(s) Supporting Document(s) appearance, urine rfx clear clear Appearance, Ur ine Rfx [place] ([facility]) color, urine rfx yellow yellow Color, Urine Rfx [place] ([facility]) pH,urine rfx 6.0 units 5.0-9.0 pH,urine Rfx [place] ([facility]) protein, urine auto rfx negative negative Protein, Uri ne Auto Rfx [place] ([facility]) specific gravity ur auto rfx 1.002-1.035 Specif ic [place] Ur Auto Rfx [place] ([facility]) glucose, urine (UA) auto rfx negative negative Glucose , Urine (UA) Auto Rfx [place] ([facility]) urobilinogen, urine auto rfx 0.2 mg/dL 0.0-2.0 Urobili nogen, Urine Auto Rfx [place] ([facility]) ketone, urine auto rfx negative negative Ketone, Urine Auto Rfx [place] ([facility]) bilirubin, urine auto rfx negative negative Bilirubin, Urine Auto Rfx [place] ([facility]) blood, urine blood rfx negative negative Blood, Urine Blood Rfx [place] ([facility]) nitrite, urine auto rfx negative negative Nitrite, Uri ne Auto Rfx [place] ([facility]) leukocyte esterase ur auto rfx negative negative Leukocyte Esterase Ur Auto Rfx [place] ([facility]) WBC, urine auto rfx 0 /hpf 0-3 WBC, Urine Auto Rfx [place] ([facility]) RBC, urine auto rfx 0 /hpf 0-3 RBC, Urine Auto Rfx [place] ([facility]) bacteria, urine auto rfx negative negative Bacteria, U rine Auto Rfx [place] ([facility]) squam epithelial cell ur aurfx 0 /hpf 0-6 Squam Epithelial Cell Ur Aurfx [place] ([facility]) hyaline cast, urine auto rfx 0 /lpf 0-1 Hyaline Cast, Urine Auto Rfx [place] ([facility]) ID Date Data Source [id number] 01/22/2020 09:10:00 AM EST [place] ([facility]) Name Value Range Interpretation Code Description Data Adriana rce(s) Supporting Document(s) summary final . Summary [place] ([facility]) ID Date Data Source [id number] 01/22/2020 09:10:00 AM EST [place] ([facility]) Name Value Range Interpretation Code Description Data Adriana rce(s) Supporting Document(s) color, urine rfx yellow yellow Color, Urine Rfx AT [facility]) appearance, urine rfx clear clear Appearance, Ur ine Rfx [place] ([facility]) pH,urine rfx 6.0 units 5.0-9.0 pH,urine Rfx [place] ([facility]) protein, urine auto rfx negative negative Protein, Uri ne Auto Rfx [place] ([facility]) specific gravity ur auto rfx 1.002-1.035 Specif ic [place] Ur Auto Rfx [place] ([facility]) ketone, urine auto rfx negative negative Ketone, Urine Auto Rfx [place] ([facility]) glucose, urine (UA) auto rfx negative negative Glucose , Urine (UA) Auto Rfx [place] ([facility]) urobilinogen, urine auto rfx 0.2 mg/dL 0.0-2.0 Urobili nogen, Urine Auto Rfx [place] ([facility]) leukocyte esterase ur auto rfx negative negative Leukocyte Esterase Ur Auto Rfx [place] ([facility]) bilirubin, urine auto rfx negative negative Bilirubin, Urine Auto Rfx [place] ([facility]) nitrite, urine auto rfx negative negative Nitrite, Uri ne Auto Rfx [place] ([facility]) WBC, urine auto rfx 0 /hpf 0-3 WBC, Urine Auto Rfx [place] ([facility]) RBC, urine auto rfx 0 /hpf 0-3 RBC, Urine Auto Rfx [place] ([facility]) blood, urine blood rfx negative negative Blood, Urine Blood Rfx [place] ([facility]) bacteria, urine auto rfx negative negative Bacteria, U rine Auto Rfx [place] ([facility]) hyaline cast, urine auto rfx 0 /lpf 0-1 Hyaline Cast, Urine Auto Rfx [place] ([facility]) squam epithelial cell ur aurfx 0 /hpf 0-6 Squam Epithelial Cell Ur Aurfx [place] ([facility]) ID Date Data Source [id number] 01/22/2020 09:10:00 AM EST [place] ([facility]) Name Value Range Interpretation Code Description Data Adriana rce(s) Supporting Document(s) summary final . Summary [place] ([facility]) ID Date Data Source [id number] 01/22/2020 09:10:00 AM EST [place] ([facility]) Name Value Range Interpretation Code Description Data Adriana rce(s) Supporting Document(s) appearance, urine rfx clear clear Appearance, Ur ine Rfx [place] ([facility]) color, urine rfx yellow yellow Color, Urine Rfx [place] ([facility]) pH,urine rfx 6.0 units 5.0-9.0 pH,urine Rfx [place] (No Critical access hospital) specific gravity ur auto rfx 1.002-1.035 Specif ic Garner Ur Auto Rfx [place] ([facility]) protein, urine auto rfx negative negative Protein, Uri ne Auto Rfx [place] ([facility]) glucose, urine (UA) auto rfx negative negative Glucose , Urine (UA) Auto Rfx [place] ([facility]) ketone, urine auto rfx negative negative Ketone, Urine Auto Rfx [place] ([facility]) urobilinogen, urine auto rfx 0.2 mg/dL 0.0-2.0 Urobili nogen, Urine Auto Rfx [place] ([facility]) bilirubin, urine auto rfx negative negative Bilirubin, Urine Auto Rfx [place] ([facility]) nitrite, urine auto rfx negative negative Nitrite, Uri ne Auto Rfx [place] ([facility]) leukocyte esterase ur auto rfx negative negative Leukocyte Esterase Ur Auto Rfx [place] ([facility]) WBC, urine auto rfx 0 /hpf 0-3 WBC, Urine Auto Rfx [place] ([facility]) blood, urine blood rfx negative negative Blood, Urine Blood Rfx [place] ([facility]) RBC, urine auto rfx 0 /hpf 0-3 RBC, Urine Auto Rfx [place] ([facility]) bacteria, urine auto rfx negative negative Bacteria, U rine Auto Rfx [place] ([facility]) squam epithelial cell ur aurfx 0 /hpf 0-6 Squam Epithelial Cell Ur Aurfx [place] ([facility]) hyaline cast, urine auto rfx 0 /lpf 0-1 Hyaline Cast, Urine Auto Rfx [place] ([facility]) ID Date Data Source [id number] 01/22/2020 07:58:00 AM EST [place] ([facility]) Name Value Range Interpretation Code Description Data Adriana rce(s) Supporting Document(s) magnesium level 2.0 mg/dL 1.8-2.4 Magnesium Level [place] ([facility]) ID Date Data Source [id number] 01/22/2020 07:58:00 AM EST [place] ([facility]) Name Value Range Interpretation Code Description Data Adriana rce(s) Supporting Document(s) glucose, fasting 87 mg/dL 70-100 Glucose, Fasting AT [facility]) blood urea nitrogen 13 mg/dL 7-18 Blood Urea Nitro gen [place] ([facility]) glomerular filtration rate > 60.0 >60 Glomerula r Filtration Rate [place] ([facility]) creatinine for GFR 1.03 mg/dL 0.70-1.30 Creatinine for GF R [place] ([facility]) sodium level 137 mEq/L 136-145 Sodium Level [place] (No Critical access hospital) chloride level 104 mEq/L 98-107 Chloride Level [place] ([facility]) potassium serum 3.8 mEq/L 3.5-5.1 Potassium Serum [facility] ([facility]) calcium level 8.3 mg/dL 8.5-10.1 Below low normal Calcium Level AT [facility]) anion gap 7 mEq/L 8-16 Below low normal Anion Gap [place] ( [facility]) carbon dioxide level 26 mEq/L 21-32 Carbon Dioxide Level [place] ([facility]) ID Date Data Source [id number] 01/22/2020 07:58:00 AM EST [facility]) Name Value Range Interpretation Code Description Data Adriana rce(s) Supporting Document(s) lactic acid sepsis protocol 1.4 mmol/L 0.4-2.0 Lactic A blayne Sepsis Protocol [facility]) ID Date Data Source [id number] 01/22/2020 07:58:00 AM EST [facility]) Name Value Range Interpretation Code Description Data Adriana rce(s) Supporting Document(s) white blood count 6.6 10 4.0-10.0 White Blood Count [place] ([facility]) hematocrit 39.9 % 42.0-52.0 Below low normal Hematocrit [place] ( [facility]) hemoglobin 13.5 g/dL 13.5-17.5 Hemoglobin [facility]) red blood count 4.50 10 4.30-6.10 Red Blood Count [place] ([facility]) mean corpuscular hemoglobin 30.0 pg 27.0-33.0 Mean Cor puscular Hemoglobin [place] ([facility]) mean corpuscular volume 88.7 fL 80.0-96.0 Mean Corpusc ular Volume [place] ([facility]) mean corpuscular HGB conc 33.8 g/dL 32.0-36.5 Mean Corpu scular HGB Conc [place] ([facility]) platelet count, automated 280 10 150-450 Platelet C ount, Automated [place] ([facility]) red cell distribution width 12.5 % 11.5-14.5 Red Cell Distribution Width [place] ([facility]) nucleated red blood cell % 0.0 % 0-0 Nucleated Red Blood Cell % [place] ([facility]) ID Date Data Source [id number] 01/22/2020 07:58:00 AM EST [place] ([facility]) Name Value Range Interpretation Code Description Data Adriana rce(s) Supporting Document(s) magnesium level 2.0 mg/dL 1.8-2.4 Magnesium Level [place] ([facility]) ID Date Data Source [id number] 01/22/2020 07:58:00 AM EST [place] ([facility]) Name Value Range Interpretation Code Description Data Adriana rce(s) Supporting Document(s) glucose, fasting 87 mg/dL 70-100 Glucose, Fasting AT [facility] ([facility]) creatinine for GFR 1.03 mg/dL 0.70-1.30 Creatinine for GF R [place] ([facility]) blood urea nitrogen 13 mg/dL 7-18 Blood Urea Nitro gen [place] ([facility]) sodium level 137 mEq/L 136-145 Sodium Level [place] (No [facility] access hospital) glomerular filtration rate > 60.0 >60 Glomerula r Filtration Rate [place] ([facility]) chloride level 104 mEq/L 98-107 Chloride Level [place] ([facility]) carbon dioxide level 26 mEq/L 21-32 Carbon Dioxide Level [place] ([facility]) potassium serum 3.8 mEq/L 3.5-5.1 Potassium Serum [place] ([facility]) anion gap 7 mEq/L 8-16 Below low normal Anion Gap [place] ( [facility]) calcium level 8.3 mg/dL 8.5-10.1 Below low normal Calcium Level AT [place] ([facility]) ID Date Data Source [id number] 01/22/2020 07:58:00 AM EST [place] ([facility]) Name Value Range Interpretation Code Description Data Adriana rce(s) Supporting Document(s) lactic acid sepsis protocol 1.4 mmol/L 0.4-2.0 Lactic A blayne Sepsis Protocol [place] ([facility]) ID Date Data Source [id number] 01/22/2020 07:58:00 AM EST [place] ([facility]) Name Value Range Interpretation Code Description Data Adriana rce(s) Supporting Document(s) red blood count 4.50 10 4.30-6.10 Red Blood Count [place] ([facility]) white blood count 6.6 10 4.0-10.0 White Blood Count [place] ([facility]) hematocrit 39.9 % 42.0-52.0 Below low normal Hematocrit [place] ( [facility]) hemoglobin 13.5 g/dL 13.5-17.5 Hemoglobin [place] ([facility]) mean corpuscular volume 88.7 fL 80.0-96.0 Mean Corpusc ular Volume [place] ([facility]) mean corpuscular hemoglobin 30.0 pg 27.0-33.0 Mean Cor puscular Hemoglobin [place] ([facility]) red cell distribution width 12.5 % 11.5-14.5 Red Cell Distribution Width [place] ([facility]) mean corpuscular HGB conc 33.8 g/dL 32.0-36.5 Mean Corpu scular HGB Conc [place] ([facility]) nucleated red blood cell % 0.0 % 0-0 Nucleated Red Blood Cell % [place] ([facility]) platelet count, automated 280 10 150-450 Platelet C ount, Automated [place] ([facility]) ID Date Data Source [id number] 01/22/2020 07:58:00 AM EST [place] ([facility]) Name Value Range Interpretation Code Description Data Adriana rce(s) Supporting Document(s) magnesium level 2.0 mg/dL 1.8-2.4 Magnesium Level [facility] ([facility]) ID Date Data Source [id number] 01/22/2020 07:58:00 AM EST [place] ([facility]) Name Value Range Interpretation Code Description Data Adriana rce(s) Supporting Document(s) glucose, fasting 87 mg/dL 70-100 Glucose, Fasting AT [facility]) blood urea nitrogen 13 mg/dL 7-18 Blood Urea Nitro gen [place] ([facility]) creatinine for GFR 1.03 mg/dL 0.70-1.30 Creatinine for GF R [place] ([facility]) sodium level 137 mEq/L 136-145 Sodium Level [place] (No [facility] access [facility]) glomerular filtration rate > 60.0 >60 Glomerula r Filtration Rate [place] ([facility]) chloride level 104 mEq/L 98-107 Chloride Level [place] ([facility]) potassium serum 3.8 mEq/L 3.5-5.1 Potassium Serum [place] ([facility]) carbon dioxide level 26 mEq/L 21-32 Carbon Dioxide Level [place] ([facility]) anion gap 7 mEq/L 8-16 Below low normal Anion Gap [place] ( [facility]) calcium level 8.3 mg/dL 8.5-10.1 Below low normal Calcium Level AT [facility]) ID Date Data Source [id number] 01/22/2020 07:58:00 AM EST [facility]) Name Value Range Interpretation Code Description Data Adriana rce(s) Supporting Document(s) lactic acid sepsis protocol 1.4 mmol/L 0.4-2.0 Lactic A blayne Sepsis Protocol [place] ([facility]) ID Date Data Source [id number] 01/22/2020 07:58:00 AM EST [place] ([facility]) Name Value Range Interpretation Code Description Data Adriana rce(s) Supporting Document(s) white blood count 6.6 10 4.0-10.0 White Blood Count [place] ([facility]) red blood count 4.50 10 4.30-6.10 Red Blood Count [place] ([facility]) hemoglobin 13.5 g/dL 13.5-17.5 Hemoglobin [place] ([facility]) mean corpuscular volume 88.7 fL 80.0-96.0 Mean Corpusc ular Volume [place] ([facility]) hematocrit 39.9 % 42.0-52.0 Below low normal Hematocrit [place] ( [facility]) mean corpuscular HGB conc 33.8 g/dL 32.0-36.5 Mean Corpu scular HGB Conc [place] ([facility]) mean corpuscular hemoglobin 30.0 pg 27.0-33.0 Mean Cor puscular Hemoglobin [place] ([facility]) red cell distribution width 12.5 % 11.5-14.5 Red Cell Distribution Width [place] ([facility]) platelet count, automated 280 10 150-450 Platelet C ount, Automated [place] ([facility]) nucleated red blood cell % 0.0 % 0-0 Nucleated Red Blood Cell % [place] ([facility]) ID Date Data Source [id number] 01/22/2020 07:58:00 AM EST [place] ([facility]) Name Value Range Interpretation Code Description Data Adriana rce(s) Supporting Document(s) magnesium level 2.0 mg/dL 1.8-2.4 Magnesium Level [place] ([facility]) ID Date Data Source [id number] 01/22/2020 07:58:00 AM EST [place] ([facility]) Name Value Range Interpretation Code Description Data Adriana rce(s) Supporting Document(s) blood urea nitrogen 13 mg/dL 7-18 Blood Urea Nitro gen [place] ([facility]) glucose, fasting 87 mg/dL 70-100 Glucose, Fasting AT [facility] ([facility]) creatinine for GFR 1.03 mg/dL 0.70-1.30 Creatinine for GF R [place] ([facility]) glomerular filtration rate > 60.0 >60 Glomerula r Filtration Rate [place] ([facility]) potassium serum 3.8 mEq/L 3.5-5.1 Potassium Serum [place] ([facility]) sodium level 137 mEq/L 136-145 Sodium Level [place] (No Critical access hospital) chloride level 104 mEq/L 98-107 Chloride Level [place] ([facility]) anion gap 7 mEq/L 8-16 Below low normal Anion Gap [place] ( [facility]) carbon dioxide level 26 mEq/L 21-32 Carbon Dioxide Level [place] ([facility]) calcium level 8.3 mg/dL 8.5-10.1 Below low normal Calcium Level AT [facility]) ID Date Data Source [id number] 01/22/2020 07:58:00 AM EST [place] ([facility]) Name Value Range Interpretation Code Description Data Adriana rce(s) Supporting Document(s) lactic acid sepsis protocol 1.4 mmol/L 0.4-2.0 Lactic A blayne Sepsis Protocol [place] ([facility]) ID Date Data Source [id number] 01/22/2020 07:58:00 AM EST [place] ([facility]) Name Value Range Interpretation Code Description Data Adriana rce(s) Supporting Document(s) white blood count 6.6 10 4.0-10.0 White Blood Count [place] ([facility]) hemoglobin 13.5 g/dL 13.5-17.5 Hemoglobin [place] ([facility]) hematocrit 39.9 % 42.0-52.0 Below low normal Hematocrit [place] ( [facility]) red blood count 4.50 10 4.30-6.10 Red Blood Count [place] ([facility]) mean corpuscular volume 88.7 fL 80.0-96.0 Mean Corpusc ular Volume [place] ([facility]) mean corpuscular hemoglobin 30.0 pg 27.0-33.0 Mean Cor puscular Hemoglobin [place] ([facility]) mean corpuscular HGB conc 33.8 g/dL 32.0-36.5 Mean Corpu scular HGB Conc [place] ([facility]) red cell distribution width 12.5 % 11.5-14.5 Red Cell Distribution Width [place] ([facility]) platelet count, automated 280 10 150-450 Platelet C ount, Automated [place] ([facility]) nucleated red blood cell % 0.0 % 0-0 Nucleated Red Blood Cell % [place] ([facility]) ID Date Data Source [id number] 01/22/2020 07:58:00 AM EST [place] ([facility]) Name Value Range Interpretation Code Description Data Adriana rce(s) Supporting Document(s) magnesium level 2.0 mg/dL 1.8-2.4 Magnesium Level [place] ([facility]) ID Date Data Source [id number] 01/22/2020 07:58:00 AM EST [place] ([facility]) Name Value Range Interpretation Code Description Data Adriana rce(s) Supporting Document(s) glucose, fasting 87 mg/dL 70-100 Glucose, Fasting AT [facility] ([facility]) blood urea nitrogen 13 mg/dL 7-18 Blood Urea Nitro gen [place] ([facility]) glomerular filtration rate > 60.0 >60 Glomerula r Filtration Rate [place] ([facility]) sodium level 137 mEq/L 136-145 Sodium Level [place] (No Critical [facility]) creatinine for GFR 1.03 mg/dL 0.70-1.30 Creatinine for GF R [place] ([facility]) chloride level 104 mEq/L 98-107 Chloride Level [place] ([facility]) potassium serum 3.8 mEq/L 3.5-5.1 Potassium Serum [place] ([facility]) carbon dioxide level 26 mEq/L 21-32 Carbon Dioxide Level [place] ([facility]) anion gap 7 mEq/L 8-16 Below low normal Anion Gap [place] ( [facility]) calcium level 8.3 mg/dL 8.5-10.1 Below low normal Calcium Level AT [place] ([facility]) ID Date Data Source [id number] 01/22/2020 07:58:00 AM EST [place] ([facility]) Name Value Range Interpretation Code Description Data Adriana rce(s) Supporting Document(s) lactic acid sepsis protocol 1.4 mmol/L 0.4-2.0 Lactic A blayne Sepsis Protocol [place] ([facility]) ID Date Data Source [id number] 01/22/2020 07:58:00 AM EST [place] ([facility]) Name Value Range Interpretation Code Description Data Adriana rce(s) Supporting Document(s) white blood count 6.6 10 4.0-10.0 White Blood Count [place] ([facility]) red blood count 4.50 10 4.30-6.10 Red Blood Count [place] ([facility]) hemoglobin 13.5 g/dL 13.5-17.5 Hemoglobin [place] ([facility]) hematocrit 39.9 % 42.0-52.0 Below low normal Hematocrit [place] ( [facility]) mean corpuscular volume 88.7 fL 80.0-96.0 Mean Corpusc ular Volume [place] ([facility]) mean corpuscular HGB conc 33.8 g/dL 32.0-36.5 Mean Corpu scular HGB Conc [place] ([facility]) mean corpuscular hemoglobin 30.0 pg 27.0-33.0 Mean Cor puscular Hemoglobin [place] ([facility]) red cell distribution width 12.5 % 11.5-14.5 Red Cell Distribution Width [place] ([facility]) platelet count, automated 280 10 150-450 Platelet C ount, Automated [place] ([facility]) nucleated red blood cell % 0.0 % 0-0 Nucleated Red Blood Cell % [place] ([facility]) ID Date Data Source [id number] 01/22/2020 07:06:00 AM EST [place] ([facility]) Name Value Range Interpretation Code Description Data Adriana rce(s) Supporting Document(s) bedside glucose 93 mg/dL 70-105 Bedside Glucose [place] ([facility]) ID Date Data Source [id number] 01/22/2020 07:06:00 AM EST [place] ([facility]) Name Value Range Interpretation Code Description Data Adriana rce(s) Supporting Document(s) bedside glucose 93 mg/dL 70-105 Bedside Glucose [place] ([facility]) ID Date Data Source [id number] 01/22/2020 07:06:00 AM EST [place] ([facility]) Name Value Range Interpretation Code Description Data Adriana rce(s) Supporting Document(s) bedside glucose 93 mg/dL 70-105 Bedside Glucose [place] ([facility]) ID Date Data Source [id number] 01/22/2020 07:06:00 AM EST [place] ([facility]) Name Value Range Interpretation Code Description Data Adriana rce(s) Supporting Document(s) bedside glucose 93 mg/dL 70-105 Bedside Glucose [place] ([facility]) ID Date Data Source [id number] 01/22/2020 07:06:00 AM EST [place] ([facility]) Name Value Range Interpretation Code Description Data Adriana rce(s) Supporting Document(s) bedside glucose 93 mg/dL 70-105 Bedside Glucose [place] ([facility]) ID Date Data Source [id number] 01/21/2020 11:46:00 PM EST [place] ([facility]) Name Value Range Interpretation Code Description Data Adriana rce(s) Supporting Document(s) lactic acid level, lactate 2.1 mmol/L 0.4-2.0 Above high nor mal Lactic Acid Level, Lactate [place] ([facility]) ID Date Data Source [id number] 01/21/2020 11:46:00 PM EST [place] ([facility]) Name Value Range Interpretation Code Description Data Adriana rce(s) Supporting Document(s) lactic acid level, lactate 2.1 mmol/L 0.4-2.0 Above high nor mal Lactic Acid Level, Lactate [place] ([facility]) ID Date Data Source [id number] 01/21/2020 11:46:00 PM EST [place] ([facility]) Name Value Range Interpretation Code Description Data Adriana rce(s) Supporting Document(s) lactic acid level, lactate 2.1 mmol/L 0.4-2.0 Above high nor mal Lactic Acid Level, Lactate [place] ([facility]) ID Date Data Source [id number] 01/21/2020 11:46:00 PM EST [place] ([facility]) Name Value Range Interpretation Code Description Data Adriana rce(s) Supporting Document(s) lactic acid level, lactate 2.1 mmol/L 0.4-2.0 Above high nor mal Lactic Acid Level, Lactate [place] ([facility]) ID Date Data Source [id number] 01/21/2020 11:46:00 PM EST [place] [facility]) Name Value Range Interpretation Code Description Data Adriana rce(s) Supporting Document(s) lactic acid level, lactate 2.1 mmol/L 0.4-2.0 Above high nor mal Lactic Acid Level, Lactate [place] ([facility]) ID Date Data Source [id number] 01/21/2020 09:03:00 PM EST [place] ([facility]) Name Value Range Interpretation Code Description Data Adriana rce(s) Supporting Document(s) bedside glucose 88 mg/dL 70-105 Bedside Glucose [place] ([facility]) ID Date Data Source [id number] 01/21/2020 09:03:00 PM EST [place] ([facility]) Name Value Range Interpretation Code Description Data Adriana rce(s) Supporting Document(s) bedside glucose 88 mg/dL 70-105 Bedside Glucose [place] ([facility]) ID Date Data Source [id number] 01/21/2020 09:03:00 PM EST [place] ([facility]) Name Value Range Interpretation Code Description Data Adriana rce(s) Supporting Document(s) bedside glucose 88 mg/dL 70-105 Bedside Glucose [place] ([facility]) ID Date Data Source [id number] 01/21/2020 09:03:00 PM EST [place] ([facility]) Name Value Range Interpretation Code Description Data Adriana rce(s) Supporting Document(s) bedside glucose 88 mg/dL 70-105 Bedside Glucose [place] [place] ([facility]) ID Date Data Source [id number] 01/21/2020 09:03:00 PM EST [place] ([facility]) Name Value Range Interpretation Code Description Data Adriana rce(s) Supporting Document(s) bedside glucose 88 mg/dL 70-105 Bedside Glucose [facility] [place] ([facility]) ID Date Data Source [id number] 01/21/2020 07:04:00 PM EST [place] ([facility]) Name Value Range Interpretation Code Description Data Adriana rce(s) Supporting Document(s) ID Date Data Source [id number] 01/21/2020 07:04:00 PM EST [place] ([facility]) Name Value Range Interpretation Code Description Data Adriana rce(s) Supporting Document(s) ID Date Data Source [id number] 01/21/2020 07:04:00 PM EST [place] ([facility]) Name Value Range Interpretation Code Description Data Adriana rce(s) Supporting Document(s) ID Date Data Source [id number] 01/21/2020 07:04:00 PM EST [place] [facility] [facility]) Name Value Range Interpretation Code Description Data Adriana rce(s) Supporting Document(s) ID Date Data Source [id number] 01/21/2020 07:04:00 PM EST [place] ([facility]) Name Value Range Interpretation Code Description Data Adriana rce(s) Supporting Document(s) ID Date Data Source [id number] 01/21/2020 06:35:00 PM EST [place] ([facility]) Name Value Range Interpretation Code Description Data Adriana rce(s) Supporting Document(s) ID Date Data Source [id number] 01/21/2020 06:35:00 PM EST [place] ([facility]) Name Value Range Interpretation Code Description Data Adriana rce(s) Supporting Document(s) lactic acid sepsis protocol 3.0 mmol/L 0.4-2.0 Above high no rmal Lactic Acid Sepsis Protocol [place] ([facility]) ID Date Data Source [id number] 01/21/2020 06:35:00 PM EST [place] ([facility]) Name Value Range Interpretation Code Description Data Adriana rce(s) Supporting Document(s) triglycerides level 113 mg/dL <150 Triglycerides Le osmar [place] ([facility]) cholesterol level 205 mg/dL <200 Above high normal Cholesterol Level [place] ([facility]) Cholesterol in LDL [Mass/volume] in Serum or Plasma 118 mg/dL <100 Above high normal LDL Cholesterol [facility] ([facility]) non-HDL-C 141 mg/dL Non-hdl-c [place] ([facility]) cholesterol risk ratio <5 Cholesterol R isk Ratio [place] ([facility]) HDL cholesterol 64 mg/dL >40 HDL Cholesterol ATHE NA ([facility]) ID Date Data Source [id number] 01/21/2020 06:35:00 PM EST [place] ([facility]) Name Value Range Interpretation Code Description Data Adriana rce(s) Supporting Document(s) Hemoglobin A1c/Hemoglobin.total in Blood 5.5 % Hemoglobin a1C [place] ([facility]) estimated average glucose 111 mg/dL 60-110 Above high norm al Estimated Average Glucose [place] ([facility]) ID Date Data Source [id number] 01/21/2020 06:35:00 PM EST [place] ([facility]) Name Value Range Interpretation Code Description Data Adriana rce(s) Supporting Document(s) ID Date Data Source [id number] 01/21/2020 06:35:00 PM EST [place] ([facility]) Name Value Range Interpretation Code Description Data Adriana rce(s) Supporting Document(s) lactic acid sepsis protocol 3.0 mmol/L 0.4-2.0 Above high no rmal Lactic Acid Sepsis Protocol [place] ([facility]) ID Date Data Source [id number] 01/21/2020 06:35:00 PM EST [place] ([facility]) Name Value Range Interpretation Code Description Data Adriana rce(s) Supporting Document(s) triglycerides level 113 mg/dL <150 Triglycerides Le osmar [place] ([facility]) Cholesterol in LDL [Mass/volume] in Serum or Plasma 118 mg/dL <100 Above high normal LDL Cholesterol [facility] ([facility]) HDL cholesterol 64 mg/dL >40 HDL Cholesterol ATHE NA ([facility]) non-HDL-C 141 mg/dL Non-hdl-c [place] ([facility]) cholesterol level 205 mg/dL <200 Above high normal Cholesterol Level [place] ([facility]) cholesterol risk ratio <5 Cholesterol R isk Ratio [place] ([facility]) ID Date Data Source [id number] 01/21/2020 06:35:00 PM EST [place] ([facility]) Name Value Range Interpretation Code Description Data Adriana rce(s) Supporting Document(s) Hemoglobin A1c/Hemoglobin.total in Blood 5.5 % Hemoglobin a1C [place] ([facility]) estimated average glucose 111 mg/dL 60-110 Above high norm al Estimated Average Glucose [place] ([facility]) ID Date Data Source [id number] 01/21/2020 06:35:00 PM EST [place] ([facility]) Name Value Range Interpretation Code Description Data Adriana rce(s) Supporting Document(s) ID Date Data Source [id number] 01/21/2020 06:35:00 PM EST [place] ([facility]) Name Value Range Interpretation Code Description Data Adriana rce(s) Supporting Document(s) lactic acid sepsis protocol 3.0 mmol/L 0.4-2.0 Above high no rmal Lactic Acid Sepsis Protocol [place] ([facility]) ID Date Data Source [id number] 01/21/2020 06[facility] Name Value Range Interpretation Code Description Data Adriana rce(s) Supporting Document(s) triglycerides level 113 mg/dL <150 Triglycerides Le osmar [place] ([facility]) Cholesterol in LDL [Mass/volume] in Serum or Plasma 118 mg/dL <100 Above high normal LDL Cholesterol [place] ([facility]) cholesterol level 205 mg/dL <200 Above high normal Cholesterol Level [place] ([facility]) non-HDL-C 141 mg/dL Non-hdl-c [place] ([facility]) HDL cholesterol 64 mg/dL >40 HDL Cholesterol ATHE NA ([facility]) cholesterol risk ratio <5 Cholesterol R isk Ratio [place] ([facility]) ID Date Data Source [id number] 01/21/2020 06:35:00 PM EST [place] ([facility]) Name Value Range Interpretation Code Description Data Adriana rce(s) Supporting Document(s) Hemoglobin A1c/Hemoglobin.total in Blood 5.5 % Hemoglobin a1C [place] ([facility]) estimated average glucose 111 mg/dL 60-110 Above high norm al Estimated Average Glucose [place] ([facility]) ID Date Data Source [id number] 01/21/2020 06:35:00 PM EST [place] ([facility]) Name Value Range Interpretation Code Description Data Adriana rce(s) Supporting Document(s) ID Date Data Source [id number] 01/21/2020 06:35:00 PM EST [place] ([facility]) Name Value Range Interpretation Code Description Data Adriana rce(s) Supporting Document(s) lactic acid sepsis protocol 3.0 mmol/L 0.4-2.0 Above high no rmal Lactic Acid Sepsis Protocol [place] ([facility]) ID Date Data Source [id number] 01/21/2020 06:35:00 PM EST [place] ([facility]) Name Value Range Interpretation Code Description Data Adriana rce(s) Supporting Document(s) triglycerides level 113 mg/dL <150 Triglycerides Le osmar [place] ([facility]) Cholesterol in LDL [Mass/volume] in Serum or Plasma 118 mg/dL <100 Above high normal LDL Cholesterol [place] ([facility]) non-HDL-C 141 mg/dL Non-hdl-c [place] ([facility]) cholesterol level 205 mg/dL <200 Above high normal Cholesterol Level [place] ([facility]) HDL cholesterol 64 mg/dL >40 HDL Cholesterol ATHE NA ([facility]) cholesterol risk ratio <5 Cholesterol R isk Ratio [place] ([facility]) ID Date Data Source [id number] 01/21/2020 06:35:00 PM EST [place] ([facility]) Name Value Range Interpretation Code Description Data Adriana rce(s) Supporting Document(s) estimated average glucose 111 mg/dL 60-110 Above high norm al Estimated Average Glucose [place] ([facility]) Hemoglobin A1c/Hemoglobin.total in Blood 5.5 % Hemoglobin a1C [place] ([facility]) ID Date Data Source [id number] 01/21/2020 06:35:00 PM EST [place] ([facility]) Name Value Range Interpretation Code Description Data Adriana rce(s) Supporting Document(s) ID Date Data Source [id number] 01/21/2020 06:35:00 PM EST [place] ([facility]) Name Value Range Interpretation Code Description Data Adriana rce(s) Supporting Document(s) lactic acid sepsis protocol 3.0 mmol/L 0.4-2.0 Above high no rmal Lactic Acid Sepsis Protocol [place] ([facility]) ID Date Data Source [id number] 01/21/2020 06:35:00 PM EST [place] ([facility]) Name Value Range Interpretation Code Description Data Adriana rce(s) Supporting Document(s) HDL cholesterol 64 mg/dL >40 HDL Cholesterol ATHE NA ([facility]) triglycerides level 113 mg/dL <150 Triglycerides Le osmar [place] ([facility]) cholesterol level 205 mg/dL <200 Above high normal Cholesterol Level [place] ([facility]) Cholesterol in LDL [Mass/volume] in Serum or Plasma 118 mg/dL <100 Above high normal LDL Cholesterol [facility] ([facility]) cholesterol risk ratio <5 Cholesterol R isk Ratio [place] ([facility]) non-HDL-C 141 mg/dL Non-hdl-c [place] ([facility]) ID Date Data Source [id number] 01/21/2020 06:35:00 PM EST [place] ([facility]) Name Value Range Interpretation Code Description Data Adriana rce(s) Supporting Document(s) estimated average glucose 111 mg/dL 60-110 Above high norm al Estimated Average Glucose [place] ([facility]) Hemoglobin A1c/Hemoglobin.total in Blood 5.5 % Hemoglobin a1C [place] ([facility]) ID Date Data Source [id number] 01/21/2020 04:39:00 PM EST [facility]) Name Value Range Interpretation Code Description Data Adriana rce(s) Supporting Document(s) sars covid-19 amplification negative negative Sars Cov id-19 Amplification [facility]) ID Date Data Source [id number] 01/21/2020 04:39:00 PM EST [facility]) Name Value Range Interpretation Code Description Data Adriana rce(s) Supporting Document(s) sars covid-19 amplification negative negative Sars Cov id-19 Amplification [facility]) ID Date Data Source [id number] 01/21/2020 04:39:00 PM EST [facility]) Name Value Range Interpretation Code Description Data Adriana rce(s) Supporting Document(s) sars covid-19 amplification negative negative Sars Cov id-19 Amplification [facility]) ID Date Data Source [id number] 01/21/2020 04:39:00 PM EST [place] ([facility]) Name Value Range Interpretation Code Description Data Adriana rce(s) Supporting Document(s) sars covid-19 amplification negative negative Sars Cov id-19 Amplification [place] ([facility]) ID Date Data Source [id number] 01/21/2020 04:39:00 PM EST [place] ([facility]) Name Value Range Interpretation Code Description Data Adriana rce(s) Supporting Document(s) sars covid-19 amplification negative negative Sars Cov id-19 Amplification [facility]) ID Date Data Source [id number] 01/21/2020 04:39:00 PM EST [facility] Name Value Range Interpretation Code Description Data Adriana rce(s) Supporting Document(s) SARS coronavirus 2 RNA [Presence] in Res piratory specimen by BINA with probe detection [facility] This lab was ordered by [facility] a nd reported by [facility]. ID Date Data Source [id number] 01/21[facility]2020 [facility]10[facility] Name Value Range Interpretation Code Description Data Adriana rce(s) Supporting Document(s) lactic acid sepsis protocol 3.7 mmol/L 0.4-2.0 Above high no rmal Lactic Acid Sepsis Protocol [facility]) ID Date Data Source [id number] 01/21/2020 02:10:00 PM EST [place] ([facility]) Name Value Range Interpretation Code Description Data Adriana rce(s) Supporting Document(s) lactic acid sepsis protocol 3.7 mmol/L 0.4-2.0 Above high no rmal Lactic Acid Sepsis Protocol [facility]) ID Date Data Source [id number] 01/21/2020 02[facility]10[facility] Name Value Range Interpretation Code Description Data Adriana rce(s) Supporting Document(s) lactic acid sepsis protocol 3.7 mmol/L 0.4-2.0 Above high no rmal Lactic Acid Sepsis Protocol [place] ([facility]) ID Date Data Source [id number] 01/21/2020 02:10:00 PM EST [place] ([facility]) Name Value Range Interpretation Code Description Data Adriana rce(s) Supporting Document(s) lactic acid sepsis protocol 3.7 mmol/L 0.4-2.0 Above high no rmal Lactic Acid Sepsis Protocol [place] ([facility]) ID Date Data Source [id number] 01/21/2020 02:10:00 PM EST [place] ([facility]) Name Value Range Interpretation Code Description Data Adriana rce(s) Supporting Document(s) lactic acid sepsis protocol 3.7 mmol/L 0.4-2.0 Above high no rmal Lactic Acid Sepsis Protocol [place] ([facility]) ID Date Data Source [id number] 01/21/2020 02:09:00 PM EST [place] ([facility]) Name Value Range Interpretation Code Description Data Adriana rce(s) Supporting Document(s) erythrocyte sedimentation rate 5 mm/HR 0-15 Eryth rocyte Sedimentation Rate [place] ([facility]) ID Date Data Source [id number] 01/21/2020 02:09:00 PM EST [place] ([facility]) Name Value Range Interpretation Code Description Data Adriana rce(s) Supporting Document(s) white blood count 9.1 10 4.0-10.0 White Blood Count [place] ([facility]) hematocrit 45.6 % 42.0-52.0 Hematocrit [place] ([facility]) hemoglobin 15.4 g/dL 13.5-17.5 Hemoglobin [place] ([facility]) red blood count 5.30 10 4.30-6.10 Red Blood Count ATHE ([facility]) red cell distribution width 12.4 % 11.5-14.5 Red Cell Distribution Width [place] ([facility]) mean corpuscular hemoglobin 29.1 pg 27.0-33.0 Mean Cor puscular Hemoglobin [place] ([facility]) mean corpuscular HGB conc 33.8 g/dL 32.0-36.5 Mean Corpu scular HGB Conc [place] ([facility]) mean corpuscular volume 86.0 fL 80.0-96.0 Mean Corpusc ular Volume [place] ([facility]) platelet count, automated 378 10 150-450 Platelet C ount, Automated [place] ([facility]) mono % 6.9 % 0.0-5.0 Above high normal [place] % [place] ([facility]) neutrophils % 65.4 % 36.0-66.0 Neutrophils % [place] ( [facility]) lymph % 25.8 % 24.0-44.0 Lymph % [place] ([facility]) immature granulocyte % 0.4 % 0-3.0 Immature Gran ulocyte % [place] ([facility]) baso % 0.5 % 0.0-1.0 Baso % [place] ([facility]) eos % 1.0 % 0.0-3.0 Eos % [place] ([facility]) nucleated red blood cell % 0.0 % 0-0 Nucleated Red Blood Cell % [place] ([facility]) neutrophils # 6.0 10 1.5-8.5 Neutrophils # [place] ( [facility]) lymph # 2.4 10 1.5-5.0 Lymph # [place] ([facility]) mono # 0.6 10 0.0-0.8 [place] # [place] ([facility]) eos # 0.1 10 0.0-0.5 Eos # [place] ([facility]) baso # 0.1 10 0.0-0.2 Baso # [place] ([facility]) ID Date Data Source [id number] 01/21/2020 02:09:00 PM EST [place] ([facility]) Name Value Range Interpretation Code Description Data Adriana rce(s) Supporting Document(s) prothrombin time 12.9 seconds 12.5-14.3 Prothrombin Time [place] ([facility]) INR Inr [place] ([facility]) partial thromboplastin time 29.2 seconds 24.2-38.5 Partial Thromboplastin Time [place] ([facility]) ID Date Data Source [id number] 01/21/2020 02:09:00 PM EST [place] ([facility]) Name Value Range Interpretation Code Description Data Adriana rce(s) Supporting Document(s) C reactive protein quantitativ 0.30 mg/dL 0.00-0.30 C Reactive Protein Quantitativ [place] ([facility]) ID Date Data Source [id number] 01/21/2020 02:09:00 PM EST [place] ([facility]) Name Value Range Interpretation Code Description Data Adriana rce(s) Supporting Document(s) lipase 94 U/L 73-393 Lipase [place] ([facility]) ID Date Data Source [id number] 01/21/2020 02:09:00 PM EST [place] ([facility]) Name Value Range Interpretation Code Description Data Adriana rce(s) Supporting Document(s) blood urea nitrogen 15 mg/dL 7-18 Blood Urea Nitro gen [place] ([facility]) glucose, fasting 113 mg/dL 70-100 Above high normal Glucose, Fas ting [place] ([facility]) creatinine for GFR 1.05 mg/dL 0.70-1.30 Creatinine for GF R [place] ([facility]) glomerular filtration rate > 60.0 >60 Glomerula r Filtration Rate [place] ([facility]) sodium level 138 mEq/L 136-145 Sodium Level [facility] ([facility]) potassium serum 4.9 mEq/L 3.5-5.1 Potassium Serum ATHE NA ([facility]) chloride level 103 mEq/L 98-107 Chloride Level [place] ([facility]) carbon dioxide level 22 mEq/L 21-32 Carbon Dioxide Level [place] ([facility]) calcium level 9.2 mg/dL 8.5-10.1 Calcium Level [place] ( [facility]) anion gap 13 mEq/L 8-16 Anion Gap [place] ([facility]) ID Date Data Source [id number] 01/21/2020 02:09:00 PM EST [place] ([facility]) Name Value Range Interpretation Code Description Data Adriana rce(s) Supporting Document(s) alkaline phosphatase 105 U/L 45-117 Alkaline Phosph atase [place] ([facility]) ALT/SGPT 38 U/L 12-78 ALT/SGPT [place] ([facility]) AST/SGOT 10 U/L 7-37 AST/SGOT [place] ([facility]) bilirubin,direct < 0.1 0.0-0.2 Bilirubin,direct AT [facility] ([facility]) total protein 7.6 gm/dL 6.4-8.2 Total Protein [place] ( [facility]) bilirubin,total 0.3 mg/dL 0.2-1.0 Bilirubin,total AT[facility] ([facility]) albumin 3.7 gm/dL 3.2-5.2 Albumin [place] ([facility]) albumin/globulin ratio Albumin/globu karina Ratio [place] ([facility]) ID Date Data Source [id number] 01/21/2020 02:09:00 PM EST [place] ([facility]) Name Value Range Interpretation Code Description Data Adriana rce(s) Supporting Document(s) CPK creatine phosphokinase 85 U/L 39-308 CPK Creat ine Phosphokinase [place] ([facility]) CK-mb value mass 2.2 NG/mL <3.6 CK-mb Value Mass AT [place] ([facility]) troponin I < 0.02 < 0.10 Troponin I [place] ([facility]) mb/CK relative index < or =4 mb/CK Relative Index [place] ([facility]) ID Date Data Source [id number] 01/21/2020 02:09:00 PM EST [place] ([facility]) Name Value Range Interpretation Code Description Data Adriana rce(s) Supporting Document(s) erythrocyte sedimentation rate 5 mm/HR 0-15 Eryth rocyte Sedimentation Rate [place] ([facility]) ID Date Data Source [id number] 01/21/2020 02:09:00 PM EST [place] ([facility]) Name Value Range Interpretation Code Description Data Adriana rce(s) Supporting Document(s) white blood count 9.1 10 4.0-10.0 White Blood Count [place] ([facility]) hemoglobin 15.4 g/dL 13.5-17.5 Hemoglobin [place] ([facility]) red blood count 5.30 10 4.30-6.10 Red Blood Count AT[facility] ([facility]) hematocrit 45.6 % 42.0-52.0 Hematocrit [place] ([facility]) mean corpuscular hemoglobin 29.1 pg 27.0-33.0 Mean Cor puscular Hemoglobin [place] ([facility]) mean corpuscular volume 86.0 fL 80.0-96.0 Mean Corpusc ular Volume [place] ([facility]) mean corpuscular HGB conc 33.8 g/dL 32.0-36.5 Mean Corpu scular HGB Conc [place] ([facility]) red cell distribution width 12.4 % 11.5-14.5 Red Cell Distribution Width [place] ([facility]) platelet count, automated 378 10 150-450 Platelet C ount, Automated [place] ([facility]) neutrophils % 65.4 % 36.0-66.0 Neutrophils % [place] ( [facility]) baso % 0.5 % 0.0-1.0 Baso % [place] ([facility]) eos % 1.0 % 0.0-3.0 Eos % [place] ([facility]) mono % 6.9 % 0.0-5.0 Above high normal [place] % [place] ([facility]) lymph % 25.8 % 24.0-44.0 Lymph % [place] ([facility]) nucleated red blood cell % 0.0 % 0-0 Nucleated Red Blood Cell % [place] ([facility]) neutrophils # 6.0 10 1.5-8.5 Neutrophils # [place] ( [facility]) immature granulocyte % 0.4 % 0-3.0 Immature Gran ulocyte % [place] ([facility]) lymph # 2.4 10 1.5-5.0 Lymph # [place] ([facility]) mono # 0.6 10 0.0-0.8 [place] # [place] ([facility]) eos # 0.1 10 0.0-0.5 Eos # [place] ([facility]) baso # 0.1 10 0.0-0.2 Baso # [place] ([facility]) ID Date Data Source [id number] 01/21/2020 02:09:00 PM EST [place] ([facility]) Name Value Range Interpretation Code Description Data Adriana rce(s) Supporting Document(s) prothrombin time 12.9 seconds 12.5-14.3 Prothrombin Time [place] ([facility]) partial thromboplastin time 29.2 seconds 24.2-38.5 Partial Thromboplastin Time [place] ([facility]) INR Inr [place] ([facility]) ID Date Data Source [id number] 01/21/2020 02:09:00 PM EST [place] ([facility]) Name Value Range Interpretation Code Description Data Adriana rce(s) Supporting Document(s) C reactive protein quantitativ 0.30 mg/dL 0.00-0.30 C Reactive Protein Quantitativ [facility] ([facility]) ID Date Data Source [id number] 01/21/2020 02:09:00 PM EST [place] ([facility]) Name Value Range Interpretation Code Description Data Adriana rce(s) Supporting Document(s) lipase 94 U/L 73-393 Lipase [facility] ([facility]) ID Date Data Source [id number] 01/21/2020 02:09:00 PM EST [place] ([facility]) Name Value Range Interpretation Code Description Data Adriana rce(s) Supporting Document(s) glucose, fasting 113 mg/dL 70-100 Above high normal Glucose, Fas ting MAR[place] ([facility]) blood urea nitrogen 15 mg/dL 7-18 Blood Urea Nitro gen [facility] ([facility]) creatinine for GFR 1.05 mg/dL 0.70-1.30 Creatinine for GF R MAR[place] ([facility]) glomerular filtration rate > 60.0 >60 Glomerula r Filtration Rate [facility] ([facility]) sodium level 138 mEq/L 136-145 Sodium Level [facility] ([facility]) chloride level 103 mEq/L 98-107 Chloride Level [facility] ([facility]) potassium serum 4.9 mEq/L 3.5-5.1 Potassium Serum ATHE NA ([facility]) anion gap 13 mEq/L 8-16 Anion Gap [facility] ([facility]) carbon dioxide level 22 mEq/L 21-32 Carbon Dioxide Level [facility] ([facility]) calcium level 9.2 mg/dL 8.5-10.1 Calcium Level [facility] ( [facility]) ID Date Data Source [id number] 01/21/2020 02:09:00 PM EST MAR[place] ([facility]) Name Value Range Interpretation Code Description Data Adriana rce(s) Supporting Document(s) AST/SGOT 10 U/L 7-37 AST/SGOT [facility] ([facility]) ALT/SGPT 38 U/L 12-78 ALT/SGPT [place] ([facility]) bilirubin,direct < 0.1 0.0-0.2 Bilirubin,direct AT [facility] ([facility]) alkaline phosphatase 105 U/L 45-117 Alkaline Phosph atase [place] ([facility]) bilirubin,total 0.3 mg/dL 0.2-1.0 Bilirubin,total ATHE NA ([facility]) albumin 3.7 gm/dL 3.2-5.2 Albumin [facility] ([facility]) albumin/globulin ratio Albumin/globu karina Ratio [facility] ([facility]) total protein 7.6 gm/dL 6.4-8.2 Total Protein [place] ( [facility]) ID Date Data Source [id number] 01/21/2020 02:09:00 PM EST [place] ([facility]) Name Value Range Interpretation Code Description Data Adriana rce(s) Supporting Document(s) CPK creatine phosphokinase 85 U/L 39-308 CPK Creat ine Phosphokinase [facility] ([facility]) CK-mb value mass 2.2 NG/mL <3.6 CK-mb Value Mass AT [facility] ([facility]) mb/CK relative index < or =4 mb/CK Relative Index [facility] ([facility]) troponin I < 0.02 < 0.10 Troponin I [facility] ([facility]) ID Date Data Source [id number] 01/21/2020 02:09:00 PM EST [place] ([facility]) Name Value Range Interpretation Code Description Data Adriana rce(s) Supporting Document(s) erythrocyte sedimentation rate 5 mm/HR 0-15 Eryth rocyte Sedimentation Rate [facility] ([facility]) ID Date Data Source [id number] 01/21/2020 02:09:00 PM EST [place] ([facility]) Name Value Range Interpretation Code Description Data Adriana rce(s) Supporting Document(s) hematocrit 45.6 % 42.0-52.0 Hematocrit [facility] ([facility]) white blood count 9.1 10 4.0-10.0 White Blood Count [facility] ([facility]) red blood count 5.30 10 4.30-6.10 Red Blood Count ATHE NA ([facility]) hemoglobin 15.4 g/dL 13.5-17.5 Hemoglobin [facility] ([facility]) mean corpuscular volume 86.0 fL 80.0-96.0 Mean Corpusc ular Volume [facility] ([facility]) mean corpuscular HGB conc 33.8 g/dL 32.0-36.5 Mean Corpu scular HGB Conc [facility] ([facility]) mean corpuscular hemoglobin 29.1 pg 27.0-33.0 Mean Cor puscular Hemoglobin [facility] ([facility]) platelet count, automated 378 10 150-450 Platelet C ount, Automated [place] ([facility]) red cell distribution width 12.4 % 11.5-14.5 Red Cell Distribution Width [facility] ([facility]) lymph % 25.8 % 24.0-44.0 Lymph % [facility] ([facility]) neutrophils % 65.4 % 36.0-66.0 Neutrophils % [facility] ( [facility]) eos % 1.0 % 0.0-3.0 Eos % [facility] ([facility]) immature granulocyte % 0.4 % 0-3.0 Immature Gran ulocyte % [facility] ([facility]) baso % 0.5 % 0.0-1.0 Baso % [facility] ([facility]) mono % 6.9 % 0.0-5.0 Above high normal [place] % [facility] ([facility]) mono # 0.6 10 0.0-0.8 [place] # [facility]IE ([facility]) lymph # 2.4 10 1.5-5.0 Lymph # [facility] ([facility]) neutrophils # 6.0 10 1.5-8.5 Neutrophils # [facility]IE ( [facility]) nucleated red blood cell % 0.0 % 0-0 Nucleated Red Blood Cell % [facility] ([facility]) baso # 0.1 10 0.0-0.2 Baso # [facility] ([facility]) eos # 0.1 10 0.0-0.5 Eos # [facility] ([facility]) ID Date Data Source [id number] 01/21/2020 02:09:00 PM EST [place] ([facility]) Name Value Range Interpretation Code Description Data Adriana rce(s) Supporting Document(s) partial thromboplastin time 29.2 seconds 24.2-38.5 Partial Thromboplastin Time [facility] ([facility]) prothrombin time 12.9 seconds 12.5-14.3 Prothrombin Time [facility] ([facility]) INR Inr [facility] ([facility]) ID Date Data Source [id number] 01/21/2020 02:09:00 PM EST [place]IE ([facility]) Name Value Range Interpretation Code Description Data Adriana rce(s) Supporting Document(s) C reactive protein quantitativ 0.30 mg/dL 0.00-0.30 C Reactive Protein Quantitativ [facility] ([facility]) ID Date Data Source [id number] 01/21/2020 02:09:00 PM EST [place] ([facility]) Name Value Range Interpretation Code Description Data Adriana rce(s) Supporting Document(s) lipase 94 U/L 73-393 Lipase [facility] ([facility]) ID Date Data Source [id number] 01/21/2020 02:09:00 PM EST [place] ([facility]) Name Value Range Interpretation Code Description Data Adriana rce(s) Supporting Document(s) glucose, fasting 113 mg/dL 70-100 Above high normal Glucose, Fas ting [facility] ([facility]) blood urea nitrogen 15 mg/dL 7-18 Blood Urea Nitro gen [facility] ([facility]) sodium level 138 mEq/L 136-145 Sodium Level [facility] ([facility]) creatinine for GFR 1.05 mg/dL 0.70-1.30 Creatinine for GF R [facility] ([facility]) glomerular filtration rate > 60.0 >60 Glomerula r Filtration Rate [facility] ([facility]) chloride level 103 mEq/L 98-107 Chloride Level [facility] ([facility]) potassium serum 4.9 mEq/L 3.5-5.1 Potassium Serum ATHE NA ([facility]) carbon dioxide level 22 mEq/L 21-32 Carbon Dioxide Level [facility] ([facility]) calcium level 9.2 mg/dL 8.5-10.1 Calcium Level [facility] ( [facility]) anion gap 13 mEq/L 8-16 Anion Gap [facility] ([facility]) ID Date Data Source [id number] 01/21/2020 02:09:00 PM EST [place] ([facility]) Name Value Range Interpretation Code Description Data Adriana rce(s) Supporting Document(s) AST/SGOT 10 U/L 7-37 AST/SGOT [facility] ([facility]) ALT/SGPT 38 U/L 12-78 ALT/SGPT [facility] ([facility]) alkaline phosphatase 105 U/L 45-117 Alkaline Phosph atase [facility] ([facility]) bilirubin,total 0.3 mg/dL 0.2-1.0 Bilirubin,total AT[facility] ([facility]) total protein 7.6 gm/dL 6.4-8.2 Total Protein [facility] ( [facility]) bilirubin,direct < 0.1 0.0-0.2 Bilirubin,direct AT [facility] ([facility]) albumin/globulin ratio Albumin/globu karina Ratio MAR[place]IE ([facility]) albumin 3.7 gm/dL 3.2-5.2 Albumin [facility] ([facility]) ID Date Data Source [id number] 01/21/2020 02:09:00 PM EST MARJ[place]IE ([facility]) Name Value Range Interpretation Code Description Data Adriana rce(s) Supporting Document(s) CK-mb value mass 2.2 NG/mL <3.6 CK-mb Value Mass AT [facility]) CPK creatine phosphokinase 85 U/L 39-308 CPK Creat ine Phosphokinase MAR[place]IE ([facility]) mb/CK relative index < or =4 mb/CK Relative Index [facility] ([facility]) troponin I < 0.02 < 0.10 Troponin I [facility] ([facility]) ID Date Data Source [id number] 01/21/2020 02:09:00 PM EST MAR[place]IE ([facility]) Name Value Range Interpretation Code Description Data Adriana rce(s) Supporting Document(s) erythrocyte sedimentation rate 5 mm/HR 0-15 Eryth rocyte Sedimentation Rate [facility] ([facility]) ID Date Data Source [id number] 01/21/2020 02:09:00 PM EST MAR[place]IE ([facility]) Name Value Range Interpretation Code Description Data Adriana rce(s) Supporting Document(s) red blood count 5.30 10 4.30-6.10 Red Blood Count AT[facility] ([facility]) white blood count 9.1 10 4.0-10.0 White Blood Count [facility] ([facility]) mean corpuscular volume 86.0 fL 80.0-96.0 Mean Corpusc ular Volume [facility] ([facility]) hemoglobin 15.4 g/dL 13.5-17.5 Hemoglobin [facility] ([facility]) mean corpuscular hemoglobin 29.1 pg 27.0-33.0 Mean Cor puscular Hemoglobin [facility] ([facility]) hematocrit 45.6 % 42.0-52.0 Hematocrit [facility] ([facility]) neutrophils % 65.4 % 36.0-66.0 Neutrophils % [facility] ( [facility]) platelet count, automated 378 10 150-450 Platelet C ount, Automated [facility] ([facility]) red cell distribution width 12.4 % 11.5-14.5 Red Cell Distribution Width [facility] ([facility]) mean corpuscular HGB conc 33.8 g/dL 32.0-36.5 Mean Corpu scular HGB Conc [facility] ([facility]) mono % 6.9 % 0.0-5.0 Above high normal [place] % [facility] ([facility]) baso % 0.5 % 0.0-1.0 Baso % [facility] ([facility]) eos % 1.0 % 0.0-3.0 Eos % [facility] ([facility]) lymph % 25.8 % 24.0-44.0 Lymph % [facility] ([facility]) neutrophils # 6.0 10 1.5-8.5 Neutrophils # [facility]IE ( [facility]) immature granulocyte % 0.4 % 0-3.0 Immature Gran ulocyte % [facility] ([facility]) lymph # 2.4 10 1.5-5.0 Lymph # [facility] ([facility]) nucleated red blood cell % 0.0 % 0-0 Nucleated Red Blood Cell % [facility] ([facility]) eos # 0.1 10 0.0-0.5 Eos # [facility] ([facility]) mono # 0.6 10 0.0-0.8 [place] # [facility]IE ([facility]) baso # 0.1 10 0.0-0.2 Baso # [facility] ([facility]) ID Date Data Source [id number] 01/21/2020 02:09:00 PM EST MAR[place]IE ([facility]) Name Value Range Interpretation Code Description Data Adriana rce(s) Supporting Document(s) prothrombin time 12.9 seconds 12.5-14.3 Prothrombin Time [facility] ([facility]) partial thromboplastin time 29.2 seconds 24.2-38.5 Partial Thromboplastin Time [facility] ([facility]) INR Inr [facility] ([facility]) ID Date Data Source [id number] 01/21/2020 02:09:00 PM EST MAR[place]IE ([facility]) Name Value Range Interpretation Code Description Data Adriana rce(s) Supporting Document(s) C reactive protein quantitativ 0.30 mg/dL 0.00-0.30 C Reactive Protein Quantitativ [facility] ([facility]) ID Date Data Source [id number] 01/21/2020 02:09:00 PM EST MAR[place]IE ([facility]) Name Value Range Interpretation Code Description Data Adriana rce(s) Supporting Document(s) lipase 94 U/L 73-393 Lipase [facility] ([facility]) ID Date Data Source [id number] 01/21/2020 02:09:00 PM EST MAR[place]IE ([facility]) Name Value Range Interpretation Code Description Data Adriana rce(s) Supporting Document(s) blood urea nitrogen 15 mg/dL 7-18 Blood Urea Nitro gen [facility] ([facility]) glucose, fasting 113 mg/dL 70-100 Above high normal Glucose, Fas ting [facility] ([facility]) glomerular filtration rate > 60.0 >60 Glomerula r Filtration Rate [facility] ([facility]) potassium serum 4.9 mEq/L 3.5-5.1 Potassium Serum ATHE NA ([facility]) creatinine for GFR 1.05 mg/dL 0.70-1.30 Creatinine for GF R MAR[place]IE ([facility]) sodium level 138 mEq/L 136-145 Sodium Level [facility] ([facility]) carbon dioxide level 22 mEq/L 21-32 Carbon Dioxide Level [facility] ([facility]) anion gap 13 mEq/L 8-16 Anion Gap [facility] ([facility]) chloride level 103 mEq/L 98-107 Chloride Level [place] ([facility]) calcium level 9.2 mg/dL 8.5-10.1 Calcium Level [facility]IE ( [facility]) ID Date Data Source [id number] 01/21/2020 02:09:00 PM EST MAR[place]IE ([facility]) Name Value Range Interpretation Code Description Data Adriana rce(s) Supporting Document(s) AST/SGOT 10 U/L 7-37 AST/SGOT [facility] ([facility]) alkaline phosphatase 105 U/L 45-117 Alkaline Phosph atase [facility] ([facility]) ALT/SGPT 38 U/L 12-78 ALT/SGPT [facility] ([facility]) bilirubin,total 0.3 mg/dL 0.2-1.0 Bilirubin,total AT[facility] ([facility]) bilirubin,direct < 0.1 0.0-0.2 Bilirubin,direct AT [facility] ([facility]) total protein 7.6 gm/dL 6.4-8.2 Total Protein [facility] ( [facility]) albumin/globulin ratio Albumin/globu karina Ratio [facility] ([facility]) albumin 3.7 gm/dL 3.2-5.2 Albumin [facility] ([facility]) ID Date Data Source [id number] 01/21/2020 02:09:00 PM EST MAR[place]IE ([facility]) Name Value Range Interpretation Code Description Data Adriana rce(s) Supporting Document(s) CPK creatine phosphokinase 85 U/L 39-308 CPK Creat ine Phosphokinase [facility] ([facility]) mb/CK relative index < or =4 mb/CK Relative Index [facility] ([facility]) troponin I < 0.02 < 0.10 Troponin I [facility] ([facility]) CK-mb value mass 2.2 NG/mL <3.6 CK-mb Value Mass AT [facility] ([facility]) ID Date Data Source [id number] 01/21/2020 02:09:00 PM EST MAR[place]IE ([facility]) Name Value Range Interpretation Code Description Data Adriana rce(s) Supporting Document(s) erythrocyte sedimentation rate 5 mm/HR 0-15 Eryth rocyte Sedimentation Rate [facility] ([facility]) ID Date Data Source [id number] 01/21/2020 02:09:00 PM EST MAR[place]IE ([facility]) Name Value Range Interpretation Code Description Data Adriana rce(s) Supporting Document(s) red blood count 5.30 10 4.30-6.10 Red Blood Count ATHE NA ([facility]) white blood count 9.1 10 4.0-10.0 White Blood Count [facility] ([facility]) hematocrit 45.6 % 42.0-52.0 Hematocrit [facility] ([facility]) mean corpuscular volume 86.0 fL 80.0-96.0 Mean Corpusc ular Volume [facility] ([facility]) mean corpuscular hemoglobin 29.1 pg 27.0-33.0 Mean Cor puscular Hemoglobin [facility] ([facility]) hemoglobin 15.4 g/dL 13.5-17.5 Hemoglobin [facility] ([facility]) neutrophils % 65.4 % 36.0-66.0 Neutrophils % [facility] ( [facility]) red cell distribution width 12.4 % 11.5-14.5 Red Cell Distribution Width [facility] ([facility]) platelet count, automated 378 10 150-450 Platelet C ount, Automated [facility] ([facility]) mean corpuscular HGB conc 33.8 g/dL 32.0-36.5 Mean Corpu scular HGB Conc [facility] ([facility]) lymph % 25.8 % 24.0-44.0 Lymph % [facility] ([facility]) mono % 6.9 % 0.0-5.0 Above high normal [place] % [facility] ([facility]) eos % 1.0 % 0.0-3.0 Eos % [facility] ([facility]) baso % 0.5 % 0.0-1.0 Baso % [facility] ([facility]) immature granulocyte % 0.4 % 0-3.0 Immature Gran ulocyte % [facility] ([facility]) nucleated red blood cell % 0.0 % 0-0 Nucleated Red Blood Cell % [facility] ([facility]) mono # 0.6 10 0.0-0.8 [place] # [facility] ([facility]) lymph # 2.4 10 1.5-5.0 Lymph # [facility] ([facility]) neutrophils # 6.0 10 1.5-8.5 Neutrophils # [facility] ( [facility]) baso # 0.1 10 0.0-0.2 Baso # [facility] ([facility]) eos # 0.1 10 0.0-0.5 Eos # [facility] ([facility]) ID Date Data Source [id number] 01/21/2020 02:09:00 PM EST [facility]IE ([facility]) Name Value Range Interpretation Code Description Data Adriana rce(s) Supporting Document(s) prothrombin time 12.9 seconds 12.5-14.3 Prothrombin Time [facility] ([facility]) partial thromboplastin time 29.2 seconds 24.2-38.5 Partial Thromboplastin Time [facility] ([facility]) INR Inr [facility] ([facility]) ID Date Data Source [id number] 01/21/2020 02:09:00 PM EST [place] ([facility]) Name Value Range Interpretation Code Description Data Adriana rce(s) Supporting Document(s) C reactive protein quantitativ 0.30 mg/dL 0.00-0.30 C Reactive Protein Quantitativ [facility] ([facility]) ID Date Data Source [id number] 01/21/2020 02:09:00 PM EST [facility] ([facility]) Name Value Range Interpretation Code Description Data Adriana rce(s) Supporting Document(s) lipase 94 U/L 73-393 Lipase [facility] ([facility]) ID Date Data Source [id number] 01/21/2020 02:09:00 PM EST [place] ([facility]) Name Value Range Interpretation Code Description Data Adriana rce(s) Supporting Document(s) creatinine for GFR 1.05 mg/dL 0.70-1.30 Creatinine for GF R [facility] ([facility]) blood urea nitrogen 15 mg/dL 7-18 Blood Urea Nitro gen [facility] ([facility]) glucose, fasting 113 mg/dL 70-100 Above high normal Glucose, Fas ting [facility] ([facility]) potassium serum 4.9 mEq/L 3.5-5.1 Potassium Serum AT[facility] NA ([facility]) glomerular filtration rate > 60.0 >60 Glomerula r Filtration Rate [facility] ([facility]) sodium level 138 mEq/L 136-145 Sodium Level [facility] ([facility]) carbon dioxide level 22 mEq/L 21-32 Carbon Dioxide Level [facility] ([facility]) calcium level 9.2 mg/dL 8.5-10.1 Calcium Level [facility] ( [facility]) anion gap 13 mEq/L 8-16 Anion Gap [facility] ([facility]) chloride level 103 mEq/L 98-107 Chloride Level [facility] ([facility]) ID Date Data Source [id number] 01/21/2020 02:09:00 PM EST [place] ([facility]) Name Value Range Interpretation Code Description Data Adriana rce(s) Supporting Document(s) ALT/SGPT 38 U/L 12-78 ALT/SGPT [facility] ([facility]) alkaline phosphatase 105 U/L 45-117 Alkaline Phosph atase [facility] ([facility]) AST/SGOT 10 U/L 7-37 AST/SGOT [facility] ([facility]) total protein 7.6 gm/dL 6.4-8.2 Total Protein [facility] ( [facility]) bilirubin,total 0.3 mg/dL 0.2-1.0 Bilirubin,total AT[facility] ([facility]) bilirubin,direct < 0.1 0.0-0.2 Bilirubin,direct AT [place] ([facility]) albumin 3.7 gm/dL 3.2-5.2 Albumin [facility] ([facility]) albumin/globulin ratio Albumin/globu karina Ratio [facility] ([facility]) ID Date Data Source [id number] 01/21/2020 02:09:00 PM EST [place] ([facility]) Name Value Range Interpretation Code Description Data Adriana rce(s) Supporting Document(s) CPK creatine phosphokinase 85 U/L 39-308 CPK Creat ine Phosphokinase [facility] ([facility]) CK-mb value mass 2.2 NG/mL <3.6 CK-mb Value Mass AT [place] ([facility]) mb/CK relative index < or =4 mb/CK Relative Index [facility] ([facility]) troponin I < 0.02 < 0.10 Troponin I [facility] ([facility]) ID Date Data Source [id number] 01/07/2020 12:36[facility] [facility] INFORMATION[facility] Name Date of Age Gend*PT [id number] JaunMigelaaliyah Meyer 1985 34 years M OBSPT Location Admission Date/Time Visit ID Attending [id number] 01/04/202121 --- --- EPI ID CSN Admitting Provider [id number] Reji Griggs MD([id number]) Attestation signed by Alfie Hopper DO at 01/07/2020 12:36 PMProcedure performed under my supervision, I agree with above report.Alfie Hopper DO 01/07/2020 12:36 PMDepartment of Interventional Radiology ---------Brief Operative/Invasive Procedure NoteSaure Betsy JaunDATE OF : 1985MRN # [id number] DATE: 01/06/2020PROVIDER:Dr. HopperPROKAYCE:US guided lumbar fluid collection aspiration - Approx 4 cc of clear,yellow fluid aspiratedPRE-PROCEDURE DIAGNOSIS:Lumbar fluid collectionPOST PROCEDURE DIAGNOSIS:Lumbar fluid collectionANESTHESIA TYPE:local - 1% lidocaine (2cc)DRAINS:NoneSPECIMENS:Lumbar fluidESTIMATED BLOOD LOSS: MinimalGRAFTS OR IMPLANTS:NoneFINDINGS: Consistent with operative diagnosisCOMPLICATIONS: NoneScott Channels, PADepartment of Interventional Radiology Name Value Range Interpretation Code Description Data Adriana rce(s) Supporting Document(s) ID Date Data Source [id number] 01/06/2020 04:58:59 PM EST [address] [address]Fgmeejz Name: DELONTE ZAMORANODOB: 1985Sex: MOrdering Provider: MARIMAR Mejias Prov: MARIMAR Whitten Provider: Procedure Performed: IR US GUIDED NEEDLE PLACEMENTExam Date: 01/06/2020 16:00MRN: [id number] Number: [id number] Class: OutpatientAccount #: [id number] for Exam: lumbar fluid collection on MRI from 01/04 - send for cultureTechnique: Ultrasound-guided aspirationComparison: January 05, 2020Findings: The risks, benefits and alternatives to this procedure were discussed. Risks including but not limited to: Infection, bleeding, vascular injury. Informed consent was obtained.The patient was placed prone on the interventional radiology table. A suitable skin site was marked for access to the small fluid collection. The site was prepped and draped in usual sterile fashion. The skin and subcutaneous tissues infiltrated with local lidocaine 1%. A small skin liu was made. Using real-time ultrasound guidance a 5 Telugu Yueh needle was advanced into the small fluid collection and approximately 4 cc of serous fluid was aspirated. Fluid was sent for analysis. The needle was removed. A dressing was applied. The patient tolerated the procedure well. There were no immediate complications.IMPRESSION: Ultrasound-guided aspiration of a subcutaneous fluid collection in the lower back as outlined above.Report electronically signed by: ALFIE HOPPER On 01/06/2020 4:58 PMWorkstation ID: [id number] Name Value Range Interpretation Code Description Data Adriana rce(s) Supporting Document(s) ID Date Data Source [id number] 01/06/2020 04:51:58 PM EST [facility] NT INFORMATIONPatient MRN Name Date of Age Gend*PT [id number] Delonte Zamorano 1985 34 years M OBSPT Location Admission Date/Time Visit ID Attending [id number] 01/04/202121 --- Reji Griggs MD([id number]) EPI ID CSN Admitting Provider [id number] Reji Griggs MD([id number]) Attestation signed by Reji Griggs MD at 01/06/2020 4:51 PMWBC normal todayFluid aspirated today by IR--"clear"D/c to homeSignature: JEFF Pradhanate: January 06, 2020Time: 4:50 PM --ORTHOPEDIC DISCHARGE SUMMARYPatient Name: Delonte Zamorano of : 1985 Age 34 yearsPrimary Physician: PCP PROVIDER REQUESTED PCP Phone: NoneAdmission Date: 01/04/2020 Discharge Date: 01/06/2020Admission Provider: Reji Griggs MD Discharge Provider: Eva Sanchez Diagnoses:Principal Problem: Post-op painActive Problems: Spondylolisthesis at L5-S1 level Herniated nucleus pulposus, L5-A2Kevwqker Problems: * No resolved hospital problems. *Surgical Procedures:* No surgery found *Brief Hospital Course:Patient was admitted through the emergency room. Patient underwent procedurewith out complication Postoperatively, patient had DVT prophylaxis withMechanical means. Hospital course was uneventful. Patient had physical therapywhile in the hospital. Pain control was maintained with IV and oral painmedications initially and transitioned to only oral when tolerating pain withoutany IV medications. Once discharge criteria was met, the patient was found to bestable for discharge. Please see discharge instructions and medications forfurther details.Discharge disposition: He will be discharged from [facility] to home in good condition.Discharge Weight Bearing Status:WBATDischarge Medications:Patient was instructed to refrain from driving or operating machinery untilcleared by surgeon.Current Discharge Medication ListSTART taking these medications DetailsmethylPREDNISolone (MEDROL, ROSALIO,) 4 MG tablet Take 1 tablet (4 mg total) bymouth daily follow package directionsQty: 21 tablet, Refills: 0oxyCODONE (ROXICODONE) 5 MG immediate release tablet Take 0.5 tablets (2.5 mgtotal) by mouth every 6 (six) hours as needed Max Daily Amount: 10 mgQty: 15 tablet, Refills: 0CONTINUE these medications which have NOT CHANGED Detailsacetaminophen (TYLENOL) 500 MG tablet Take 2 tablets (1,000 mg total) by mouthevery 6 (six) hoursQty: 50 tablet, Refills: 1lisinopril (PRINIVIL,ZESTRIL) 10 MG tablet Take 10 mg by mouth dailymethocarbamol (ROBAXIN) 750 MG tablet Take 2 tablets (1,500 mg total) by mouth 4(four) times a dayQty: 28 tablet, Refills: 0senna-docusate (PERICOLACE) 8.6-50 MG Take 2 tablets by mouth 3 (three) times adayQty: 30 tablet, Refills: 0magnesium hydroxide (MILK OF MAGNESIA) 400 MG/5ML suspension Take 30 mL by mouthdaily as needed for constipationQty: 360 mL, Refills: 0Follow Up Instructions:An After Visit Summary was printed and given to the patient.Items needing special attention: noneDischarge Exam:Blood Pressure: BP: 112/78 Pulse: Heart Rate: 74Temperature: Temp: 98.2 F Respirations: Resp: 18Admission Weight: Weight: (!) (P) 102.1 kg (225 lb) O2 Saturation: SpO2: 96 %Discharge Weight: Weight: (!) 104.2 kg (229 lb 12.8 oz) BMI: Body mass index is32.05 kg/m .Physical ExamGeneral: A/O x 3, NAD.Respiratory: Breathing unlaboredOrthopedic: lumbar spine exam: negativeDiagnostics:Lab ResultsComponent Value Date WBC 7.3 01/06/2020 HGB 15.1 01/06/2020 HCT 43.7 01/06/2020 MCV 88.4 01/06/2020 PLT 333 01/06/2020Lab ResultsComponent Value Date INR 1.03 01/06/2020 PROTIME 10.8 01/06/2020Lab ResultsComponent Value Date CREATININE 0.98 01/04/2020 BUN 15 01/04/2020 NA 137 01/04/2020 K 4.1 01/04/2020 CL 106 01/04/2020 CO2 23 01/04/2020 GLU 127 (H) 01/04/2020Significant Imaging:IR aspiration with 4 cc clear fluidConsults:noneSignature: Cleve Sanchez [phone]: January 06, 2020Time: 4:36 PM Name Value Range Interpretation Code Description Data Adriana rce(s) Supporting Document(s) ID Date Data Source [id number] 01/08/2020 09:58:38 AM EST [facility] SPECIMEN DESCRIPTION CEREBROSPINA L FLUID LUMBARSPECIAL REQUESTS NONEGRAM STAIN NO WHITE BLOOD CELLS NO BACTERIACULTURE RESULTS NO GROWTHREPORT STATUS FINAL 01/08/2020 Name Value Range Interpretation Code Description Data Adriana rce(s) Supporting Document(s) ID Date Data Source [id number] 01/06/2020 10:29:00 PM EST [facility] SPECIMEN DESCRIPTION CEREBROSPINA L FLUIDSPECIAL REQUESTS NONEGRAM STAIN NOT DONECULTURE RESULTS WRONG TEST ORDERED BY LAB ORDERED IN ERROR. [id number].REPORT STATUS FINAL 01/06/2020 Name Value Range Interpretation Code Description Data Adriana rce(s) Supporting Document(s) ID Date Data Source [id number] 01/06/2020 10:28:25 PM EST [facility] SPECIMEN DESCRIPTION CEREBROSPINA L FLUIDSPECIAL REQUESTS NONECULTURE RESULTS WRONG TEST ORDERED BY LAB ORDERED IN ERRORREPORT STATUS FINAL 01/06/2020 Name Value Range Interpretation Code Description Data Adriana rce(s) Supporting Document(s) ID Date Data Source [id number] 01/06/2020 10:27:25 PM EST [facility] SPECIMEN DESCRIPTION WOUND LUMBAR FLUIDSPECIAL REQUESTS NONEGRAM STAIN NOT DONECULTURE RESULTS TEST(S) PROCESSED UNDER NEW ENTRY PLEASE SEE [id number] [facility]. [id number].REPORT STATUS FINAL 01/06/2020 Name Value Range Interpretation Code Description Data Adriana rce(s) Supporting Document(s) ID Date Data Source [id number] 01/06/2020 12:53:35 PM EST [facility] Name Value Range Interpretation Code Description Data Adriana rce(s) Supporting Document(s) PT 10.8 s (9.2-11.9) [facility] INR 1.03 [facility] SUGGESTED THERAPEUTIC RANGES USING INR F ORSTABILIZED ANTICOAGULATED PATIENTS:STANDARD DOSE THERAPY INR 2.0-3.0 DVT, PE, PREVENT DVT OR EMBOLISMHIGH DOSE THERAPY INR 2.5-3.5 PREVENT EMBOLISM FROM MECHANICAL HEART VALVE ID Date Data Source [id number] 01/06/2020 07:20:02 AM EST [facility] Name Value Range Interpretation Code Description Data Adriana rce(s) Supporting Document(s) WBC 7.3 10*3/uL (4.1-11.0) [facility] [place] RBC 4.94 10*6/uL (4.60-6.10) [facility] HGB 15.1 g/dL (13.5-18.0) [facility] HCT 43.7 % (41.0-53.0) [facility] PERFOR[facility] AT [address] [place] [address] [place] [address] MCV 88.4 fL (80.0-95.0) [facility] MCH 30.5 pg (27.0-32.0) [facility] MCHC 34.5 g/dL (32.0-36.0) [facility] RDW 13.4 % (10.5-14.5) [facility] PLT 333 10*3/uL (150-450) [facility] MPV 7.9 fL (7.1-10.7) [facility] NEUT % 43.1 % (35.0-75.0) [facility] LYMPH % 42.1 % (16.0-52.0) [facility] MONO % 9.9 % (0.0-8.0) H [facility] EOS % 3.7 % (0.0-5.0) [facility] BASO % 1.2 % (0.0-4.0) [facility] NEUT # 3.1 10*3/uL (1.8-7.7) [facility] LYMPH # 3.1 10*3/uL (1.2-4.8) [facility] MONO # 0.7 10*3/uL (0.0-0.8) [facility] Eosinophils [#/volume] in Blood by Automated count 0.3 10*3/uL (0.0-0 .5) [facility] BASO # 0.1 10*3/uL (0.0-0.2) [facility] ID Date Data Source [id number] 01/05/2020 06:18:[address] [address]Obqjrbo Name: Delonte ZamoranoDOB: 1985Sex: MOrdering Provider: MARIMAR Mejias Prov: MARIMAR Whitten Provider: Procedure Performed: MRI LUMBAR SPINE W WO CONTRASTExam Date: 01/05/2020 16:23MRN: [id number] Number: [id number] Class: INFORMATION: Exam: MR Lumbar Spine Without and With Contrast. Exam date and time: 01/05/2020 4:23 PM Age: 34 years old Clinical indication: Condition or disease; Other: Effusion; Prior surgery; Surgery date: 1-6 months; Additional info: Back pain TECHNIQUE: Imaging protocol: Multiplanar magnetic resonance images of the lumbar spine without and with intravenous contrast. Contrast material: DOTAREM; Contrast volume: 20 ml; Contrast route: INTRAVENOUS (IV); COMPARISON: CR XR LUMBAR SPINE AP AND LATERAL 01/05/2020 1:36 AM FINDINGS: Vertebrae: L5-S1 laminectomy with posterior and interbody fusion hardware with trace grade 1 anterolisthesis similar to prior x-rays. no lumbar vertebral compression deformity. Enhancing marrow edema L5-S1 abutting the interbody fusion nonspecific. Spinal cord: Spinal cord cauda equina not compressed. No arachnoiditis. L1-L2: No significant spinal stenosis. L2-L3: No significant spinal stenosis. L3-L4: No significant spinal stenosis. L4-L5: Trefoil shape central canal. No significant peripheral stenosis. L5-S1: L5-S1 circumferential epidural enhancement at the superior portion of this level surrounding the thecal sac and pre foraminal portion of bilateral L5 nerve roots.. The adjacent caudal epidural tissues demonstrate dorsal epidural enhancement partially surrounding the pre foraminal portion left S1 nerve root. Reference contrast axial series 12 images 8-9 and 5, respectively.Soft tissues: Dorsal subcutaneous soft tissue enhancement with dorsal rim enhancing subcutaneous elongated fluid collection 8 x 4.3 x 1.8 cm. IMPRESSION: 1. L5-S1 laminectomy with posterior and interbody fusion hardware with trace grade 1 anterolisthesis similar to prior x-rays. 2. L5-S1 circumferential epidural enhancement at the superior portion of this level surrounding the thecal sac with dorsal predominance surrounding pre foraminal portion of the bilateral L5 nerve roots.. The adjacent caudal epidural tissues at this level demonstrate dorsal epidural enhancement partially surrounding the pre foraminal portion left S1 nerve root. This can be a manifestation of scar.3. Enhancing marrow edema L5-S1 abutting the interbody fusion nonspecific. 4. Dorsal subcutaneous soft tissue enhancement with dorsal rim enhancing subcutaneous elongated fluid collection 8 x 4.3 x 1.8 cm. This may be a seroma. Abscess is a differential diagnosis. Report electronically signed by: NUBIA HILLIARD MD on 01/05/2020 18:18:57 Name Value Range Interpretation Code Description Data Adriana rce(s) Supporting Document(s) ID Date Data Source [id number] 01/05/2020 09:44:00 AM [facility] [address] [facility] [place] [address] RESPIRATORY CARE REPORT ==== ---------NAME------- NUMBER SEX AGE ADMIT DISC. XRAY# F/C TYPEMURPHY DELONTE Meyer [id number] M 34 01/04/20 01/04/20 [id number] X6B E/R DATE OF : 1985 M/R# [id number] #: [id number] TR-06 LOCATION: EMERGENCY DEPT EKG [id number] COMP LETE:01/05/20 01:42 T [id number] PHYSICIAN: KEYA PADRON Name Value Range Interpretation Code Description Data Dariana rce(s) Supporting Document(s) ID Date Data Source [id number] 01/05/2020 07:37:51 AM EST [address] [address]Vgbihrr Name: DELONTE ZAMORANODOB: 1985Sex: MOrdering Provider: CHAIM Pisano Prov: CHAIM Lay Provider: Procedure Performed: XR LUMBAR SPINE AP AND LATERALExam Date: 01/05/2020 01:41MRN: [id number] Number: [id number] Class: OutpatientAccount #: [id number] for Exam: s/p l5-S1 fusion now with RLE pain. Standing xrays pleaseTechnique: AP, lateral and coned lateral L5-S1 views obtained.Comparison: Intraoperative radiographs from 09/30/2019.Findings: Patient is status post posterior and interbody fusion at L5- S1. Grade 1 spondylolisthesis is noted and appears unchanged. There is perhaps 2 mm of retrolisthesis at L4-5 also probably unchanged. Disc and vertebral body heights appear maintained and no other alignment abnormalities are seen. Multiple phleboliths are noted in the pelvis. There are some air-fluid levels within nondilated small bowel loops. Surgical clips are present in the right up per abdomen.IMPRESSION: L5-S1 fusion with alignment unchanged as above. No acute changes identified.Air-fluid levels within nondilated small bowel loops on upright view suggest possible nonspecific enteritis.Report electronically signed by: SPENCER JENNINGS On 01/05/2020 7:37 AMWorkstation ID: [id number] Name Value Range Interpretation Code Description Data Adriana rce(s) Supporting Document(s) ID Date Data Source [id number] 01/05/2020 07:20:58 AM EST [facility] NT INFORMATIONPatient MRN Name Date of Age Gend*PT [id number] Delonte Zamorano 1985 34 years M OBSPT Location Admission Date/Time Visit ID Attending [id number] 01/04/202121 --- Daren Richard MD([id number]) EPI ID CSN Admitting Provider [id number] Daren Richard MD([id number]) Attestation signed by Reji Griggs MD at 01/05/2020 7:20 AMSignature: JEFF Pradhanate: January 05, 2020Time: 7:20 AM --Ortho H+P Mitchelaaliyah Meyer JaunMRN: [id number] Physician: Dr. Pope referred by:Juan Carlos Marks for consult: Right lower extremity painHistory of Present Illness: Delonte Zamorano is a 34 years male who underwentelective L5-S1 TLIF September [address] Griggs without complication.Patient did have a longer than usual postoperative course due to pain control.Nonetheless, patient did return home with complete resolution of preop signs andsymptoms regarding the left lower extremity. Patient states he was doing wellat home and was able to discard use of narcotic medications and a walkerapproximately 5 weeks ago. Patient states on Thanksgiving day he lifted up hisson as he has done numerous at times postoperatively without issue. But thistime he felt significant back pain with shooting right lower extremity burningpain exacerbated with touch or weightbearing. He was [facility] emergency departmentfor higher level of care. Orthopedics was consulted for further evaluation andmanagement. Patient denies any bowel or bladder incontinence. Patient deniessaddle paresthesias. Denies poor rectal tone. He does admit to diminishedsensation in the right lower extremity. Patient states he is able to ambulatebut difficult to do so due to above-mentioned symptoms. Denies fevers chills orincreased night sweats.Past Medical History:Past Medical History:Diagnosis Date HypertensionPast Surgical History:Past Surgical History:Procedure Laterality Date BACK SURGERY N/A 09/30/2019 Procedure: LUMBAR 5 TO SACRAL 1 LAMINECTOMY FORAMINOTOMIES INTERBODY FUSIONPOSTERIOR LATERAL FUSION CAGE PLACEMENT INSTRUMENTATION ILIAC CREST BONE GRAFT;Surgeon: Reji Griggs MD; Laterality: N/A;Medications: Patient's current medication list was reviewed:(Not in a hospital admission)Allergies:Gabapentin; Toradol [ketorolac tromethamine]; and Zanaflex [tizanidinehcl]Family History:History reviewed. No pertinent family history.Social History:Social HistoryTobacco Use Smoking status: Former Smoker Types: Cigarettes Last attempt to quit: 09/25/2019 Years since quittin.2 Smokeless tobacco: Never UsedSubstance Use Topics Alcohol use: Yes Comment: rare Drug use: Not on fileReview of Systems:All systems were reviewed and found negative except for those mentioned in theHPI.Physical Exam:Temp: [97.4 F-97.9 F] 97.4 FHeart Rate: [72-84] 78Resp: [18] 18BP: (148-155)/(78-101) 155/101Patient is alert and oriented x3 converses with me appropriately. Afebrile.Lower lumbar incision is well-healed without any erythema dehiscence ordischarge. Pain with palpation to the midline incision in the right sidedparaspinal muscles. Diminished sensation throughout the entire right lowerextremity. + Burning pain with light touch throughout the entire right lowerextremity seemingly worse in the thigh. Calf soft and nontender. Dorsalispedis pulses 2+ regular rhythm. Patient demonstrates 5 out of 5 strength withDF and PF. 4 out of 5 strength with hip flexors right and 5 out of 5 in theleft. Digital rectal exam omitted d ue to lack of complaintLabs, Imaging, and other Diagnostics:Diagnostic tests reviewed for today's visit:Lab ResultsComponent Value Date WBC 15.2 (H) 01/04/2020 HGB 16.2 01/04/2020 HCT 46.7 01/04/2020 MCV 86.5 01/04/2020 PLT 373 01/04/2020No results found for: INR, PROTIMELab ResultsComponent Value Date CREATININE 0.98 01/04/2020 BUN 15 01/04/2020 NA 137 01/04/2020 K 4.1 01/04/2020 CL 106 01/04/2020 CO2 23 01/04/2020 GLU 127 (H) 01/04/2020Radiographic Results: None.Impression:Principal Problem: Post-op painActive Problems: Spondylolisthesis at L5-S1 level Herniated nucleus pulposus, L5-S11. Posto perative pain status post L1-S1 TLIFPlan/Recommendations:1. Postoperative pain status post L1-S1 TLIF -As per emergency department staff MRI cannot be obtained at this time becausepatient does not have a life altering or life threatening event occurring atthis moment. Lumbar xrays ordered to check harware.. MRI will be obtainedlater in the morning. Patient will be admitted to the orthopedic service forpain control and MRI later this morning. Attending orthopedic surgeon or Dr. Griggs will evaluate the patient during rounds.Chaim BASSETTCSignature: Cleve Rad[phone]: January 05, 2020Time: 12:54 AM Name Value Range Interpretation Code Description Data Adriana rce(s) Supporting Document(s) ID Date Data Source [id number] 01/05/2020 07:18:07 AM EST [facility] NT INFORMATIONPatient MRN Name Date of Age Gend*PT [id number] Delonte Zamorano 1985 34 years M OBSPT Location Admission Date/Time Visit ID Attending [id number] 01/04/202121 --- Daren Richard MD([id number]) EPI ID CSN Admitting Provider [id number] Daren Richard MD([id number])Ortho H&P NoteChief Complaint: Lower back pain/right lower extremity pain/tinglingSean Betsy JaunMRN: [id number] and Recommendations:Principal Problem: Post-op painActive Problems: Spondylolisthesis at L5-S1 level Herniated nucleus pulposus, L5-S1 1. Acute onset lower back pain/right lower extremity numbness/tingling: NeedsMRI for further evaluation-MRI ordered. Apparently MRI cannot be performedwhile in the emergency room last p.m. Further recommendations after MRIobtained and reviewedLabs/Imaging/Other diagnostics:X-rays lumbar spine [facility] 01/05/2020: Hardware in good position. GoodalignmentHistory of Present Illness: 34-year-old male status post L5-S1 TLIF 09/30/2019.Did well postoperatively. Preoperative symptoms were down the left lowerextremity. However states on , was lifting his son developedsome lower back pain. Woke up Sunday morning with severe pain in the backrating down the right lower extremity. [facility]. Besides alower back pain, does have pain radiation down the right lower extremity withsome tingling. No weakness.Location: Lumbar spineSeverity: Moderate to severeCharacter: SharpExacerbating factors: ActivityAlleviating factors: RestDenies bowl or bladder dysfunction. Denies any signs of infection norcancer/metastasisPast Medical History:Past Medical History:Diagnosis Date Hypertension No Previous AnesthesiaPast Surgical History:Past Surgical History:Procedure Laterality Date BACK SURGERY N/A 09/30/2019 Procedure: LUMBAR 5 TO SACRAL 1 LAMINECTOMY FORAMINOTOMIES INTERBODY FUSIONPOSTERIOR LATERAL FUSION CAGE PLACEMENT INSTRUMENTATION ILIAC CREST BONE GRAFT;Surgeon: Reji Griggs MD; Laterality: N/A;Medications:Medications Prior to AdmissionMedication Sig Dispense Refill Last Dose acetaminophen (TYLENOL) 500 MG tablet Take 2 tablets (1,000 mg total) by mouthevery 6 (six) hours 50 tablet 1 01/04/2020 at Unknown time lisinopril (PRINIVIL,ZESTRIL) 10 MG tablet Take 10 mg by mouth daily12/07 at Unknown time methocarbamol (ROBAXIN) 750 MG tablet Take 2 tablets (1,500 mg total) by mouth4 (four) times a day 28 tablet 0 01/05/2020 at Unknown time senna-docusate (PERICOLACE) 8.6-50 MG Take 2 tablets by mouth 3 (three) timesa day 30 tablet 0 01/05/2020 at Unknown time magnesium hydroxide (MILK OF MAGNESIA) 400 MG/5ML suspension Take 30 mL bymouth daily as needed for constipation 360 mL 0 More than a month at UnknowntimeAllergies:Gabapentin; Toradol [ketorolac tromethamine]; and Zanaflex [tizanidinehcl]Family History:History reviewed. No pertinent family history.Soc ial History:Social HistoryTobacco Use Smoking status: Former Smoker Types: Cigarettes Last attempt to quit: 09/25/2019 Years since quittin.2 Smokeless tobacco: Never UsedSubstance Use Topics Alcohol use: Yes Comment: rare Drug use: Not on fileReview of Systems:Constitutional:negEyes: negEars, nose, mouth, throat, and face: negRespiratory: negCardiovascular: negGastro intestinal: negGenitourinary:negIntegument/breast: negHematologic/lymphatic: negMusculoskeletal:as aboveNeurological:as aboveBehavioral/Psych:negEndocrine: negAllergic/Immunologic:as abovePhysical Exam:Temp: [97.4 F-97.9 F] 97.6 FHeart Rate: [63-84] 63Resp: [18] 18BP: (137-161)/(78-109) 137/84HEENT: normalNecK: Skin normal, non-tender, no masses, no spasm, normal strength, normalstability, good ROMMotor, sensory reflexes normal in both UE; negative antunez's sign bilaterally2+ radial pulses bilaterallyRight shoulder exam: skin normal, non-tender, normal strength, normal stability,good ROMLeft shoulder exam: Skin normal, non-tender, normal strength, normal stability,good ROMThoracic exam: skin normal,no masses, no spasm, non-tender, normal strength,normal stability, good ROMLumbar exam : skin normal,no masses, incision well-healed. Diffuse tendernessMotor, sensory reflexes normal in both LERight hip: skin normal, non-tender, normal strength, normal stability, good ROMLeft hip: skin normal, non-tender, normal strength, normal stability, good ROMCalves: supple, non-tenderSignature: Reji Griggs, MDDate: January 05, 2020Time: 7:10 [facility]:Daren Richard MD Name Value Range Interpretation Code Description Data Adriana rce(s) Supporting Document(s) ID Date Data Source [id number] 01/11/2020 11:10:42 AM EST Lab [facility] SPECIMEN DESCRIPTION PERIPHERAL LEFTSPECIAL REQUESTS NONECULTURE RESULTS NO GROWTH 6 DAYSREPORT STATUS FINAL 01/11/2020 Name Value Range Interpretation Code Description Data Adriana rce(s) Supporting Document(s) ID Date Data Source [id number] 01/11/2020 11:10:42 AM EST [facility] SPECIMEN DESCRIPTION PERIPHERAL RIGHTSPECIAL REQUESTS NONECULTURE RESULTS NO GROWTH 6 DAYSREPORT STATUS FINAL 01/11/2020 Name Value Range Interpretation Code Description Data Adriana rce(s) Supporting Document(s) ID Date Data Source [id number] 01/04/2020 11:06:43 PM EST [facility] INFORMATIONPatient MRN Name Date of Age Gend*PT [id number] Delonte Zamorano 1985 34 years M EDPT Location Admission Date/Time Visit ID Attending [id number] 01/04/202121 --- Nicolas An MD([id number]) EPI ID CSN Admitting Provider [id number] ---Provider in Triage NotesNo notes on fileHistory of Present IllnessChief ComplaintPatient presents with Post-op Problem Per EMS- Pt had back surgery at [facility] on 10/01/2019. The pain has returned andworsened over the past 2 days at which point pt presented [facility].Transferred here for further workup and MRI.34-year-old male transferred from outside hospital for low pain and MRI work-up.Patient states he lifted his child approximately 2 days ago has been havingworsening low back pain radiating down entire right leg with decreasedsensations and numbness. Patient had spinal surgery Dr. Griggs past September,L5-S1 laminectomy, fusion w/ cage. Otherwise no falls no fevers no chills noother complaints. Urinating well.HistoryPast Medical History:Diagnosis Date HypertensionPast Surgical History:Procedure Laterality Date BACK SURGERY N/A 09/30/2019 Procedure: LUMBAR 5 TO SACRAL 1 LAMINECTOMY FORAMINOTOMIES INTERBODY FUSIONPOSTERIOR LATERAL FUSION CAGE PLACEMENT INSTRUMENTATION ILIAC CREST BONE GRAFT;Surgeon: Reji Griggs MD; Julieta aterality: N/A;History reviewed. No pertinent family history.Social HistoryTobacco Use Smoking status: Former Smoker Types: Cigarettes Last attempt to quit: 09/25/2019 Years since quittin.2 Smokeless tobacco: Never UsedSubstance Use Topics Alcohol use: Yes Comment: rare Drug use: Not on fileROSReview of SystemsConstitutional: Negative.HENT: Negative.Eyes: Negative.Respiratory: Negative.Cardiovascular: Negative.Gastrointestinal: Negative.Endocrine: Negative.Genitourinary: Negative.Musculoskeletal: Positive for back pain.Skin: Negative.Allergic/Immunologic: Negative.Neurological: Positive for weakness and numbness.Hematological: Negative.Psychiatric/Behavioral: Negative.Physical ExamThere were no vitals taken for this visit.Physical ExamConstitutional: He is oriented to person, place, and time. He appearswell-developed and well- nourished.HENT:Head: Normocephalic and atraumatic.Eyes: Pupils are equal, round, and reactive to light. EOM are normal.Neck: Normal range of motion.Cardiovascular: Normal rate, regular rhythm and intact distal pulses.Pulmonary/Chest: Effort normal and breath sounds normal.Abdominal: Soft. Bowel sounds are normal.Musculoskeletal:SLR RLE limited 2/2 pain, flex/ext ankle 5/5, knee flex/ext 4/5, decreasedsensations to light touch RLENeurological: He is alert and oriented to person, place, and time.Skin: Skin is warm and dry. Capillary refill takes less than 2 seconds.Psychiatric: He has a normal mood and affect.ED [id number]:00 Dr Richard from [facility], freda admit to his service for MRI in [facility] was electronically signed by Nicolas An MD, 01/04/20 10:01 PM.Nicolas An MD01/04/20 2306 Name Value Range Interpretation Code Description Data Adriana rce(s) Supporting Document(s) ID Date Data Source [id number] 01/04/2020 10:09:00 PM EST [facility] Name Value Range Interpretation Code Description Data Adriana rce(s) Supporting Document(s) SARS coronavirus 2 RNA [Presence] in Res piratory specimen by BINA with probe detection [facility] This lab was reported by [facility]. ID Date Data Source [id number] 01/05/2020 12:23:19 AM EST [facility] Name Value Range Interpretation Code Description Data Adriana rce(s) Supporting Document(s) SPECIMEN DESCRIPTION [facility] INFLUENZA A (NEG) [facility] INFLUENZA B (NEG) [facility] RSV (NEG) [facility] COMMENT [facility] UNDER AN EMERGENCY USE AUTHORIZATION(EUA ) FOR THE DETECTION AND/OR DIAGNOSISOF THE VIRUS THAT CAUSES COVID-19.PERFORMED AT [address] [place] [id number] COVID19 RESULT (NDET) [facility] THIS ASSAY AMPLIFIES AND DETECTSTHE TARG ET RNA USING REAL-TIME PCR.NEGATIVE 2019_NCOV RT-PCR RESULTS DONOT PRECLUDE 2019_NCOV INFECTION ANDSHOULD NOT BE USED THE SOLE BASISFOR PATIENT MANAGEMENT DECISIONS. FIRST TEST [facility] SYMPTOMATIC [facility] DATE OF SYMPT ONSET [facility] ICU [facility] CONGREGATE CARE SET [facility] ID Date Data Source [id number] 01/04/2020 11:08:54 PM EST [facility] Name Value Range Interpretation Code Description Data Adriana rce(s) Supporting Document(s) SODIUM 137 mmol/L (136-145) [facility] POTASSIUM 4.1 mmol/L (3.6-5.2) [facility] CHLORIDE 106 mmol/L (100-108) [facility] CO2 23 mmol/L (22-31) [facility] ANION GAP 8 mmol/L (7-16) [facility] UREA NITROGEN 15 mg/dL (7-24) [facility] CREATININE 0.98 mg/dL (0.80-1.30) [facility] BUN/CREAT RATIO 15.3 RATIO (10.0-20.0) [facility] GLUCOSE 127 mg/dL (70-99) H [facility] CALCIUM 9.0 mg/dL (8.4-10.2) [facility] TOTAL PROTEIN 7.9 g/dL (6.4-8.2) [facility] ALBUMIN 4.0 g/dL (3.5-4.6) [facility] GLOBULIN 3.9 g/dL (2.7-4.3) [facility] ALB/GLOB RATIO 1.0 RATIO [facility] ALKALINE PHOSPHATASE 106 U/L (45-117) [facility] BILIRUBIN,TOTAL 0.5 mg/dL (0.0-1.0) [facility] PLEASE NOTE:Total bilirubin results may be falselyelevated in patients taking Eltrombopag. AST (SGOT) 72 U/L (11-39) H [facility] ALT (SGPT) 84 U/L (12-78) H [facility] GFR >60 ml/min/1.73m2 (>59) [facility] GFR ( AMER) >60 ml/min/1.73m2 (>59) [facility] GFR INTERPRETATION [facility] --NORMAL KIDNEY FUNCTION OR MILD DISEASE - GFR >OR= 60CHRONIC KIDNEY DISEASE - GFR 15 - 59RENAL FAILURE - GFR <15 Est. GFR calculation based on the MDRDstudy equation, which assumes a steadystate for creatinine. Est. GFR should notbe used for medication dosing. ID Date Data Source [id number] 01/04/2020 10:47:51 PM EST [facility] Name Value Range Interpretation Code Description Data Adriana rce(s) Supporting Document(s) WBC 15.2 10*3/uL (4.1-11.0) H [facility] RBC 5.39 10*6/uL (4.60-6.10) [facility] HGB 16.2 g/dL (13.5-18.0) [facility] HCT 46.7 % (41.0-53.0) [facility] MCV 86.5 fL (80.0-95.0) [facility] MCH 30.1 pg (27.0-32.0) [facility] MCHC 34.8 g/dL (32.0-36.0) [facility] RDW 13.5 % (10.5-14.5) [facility] PLT 373 10*3/uL (150-450) [facility] MPV 8.0 fL (7.1-10.7) [facility] NEUT % 90.9 % (35.0-75.0) H [facility] LYMPH % 7.0 % (16.0-52.0) L [facility] MONO % 1.6 % (0.0-8.0) [facility] EOS % 0.1 % (0.0-5.0) [facility] BASO % 0.4 % (0.0-4.0) [facility] NEUT # 13.8 10*3/uL (1.8-7.7) H [facility] LYMPH # 1.1 10*3/uL (1.2-4.8) L [facility] MONO # 0.2 10*3/uL (0.0-0.8) [facility] Eosinophils [#/volume] in Blood by Automated count 0.0 10*3/uL (0.0-0 .5) [facility] BASO # 0.1 10*3/uL (0.0-0.2) [facility] ID Date Data Source [id number] 01/04/2020 04:23:00 PM EST [facility] 1 OrderSheet [facility] Emergency Department [address] [place] [address] Phone #: ext- [phone] 01/04/2020 16:17 Patient: DELONTE ZAMORANO Sex: M : 1985 Age: 34yWEIGHT:102.0 kg (S)ALLERGIES: No Known Drug AllergyCHIEF COMPLAINT: back painDIAGNOSIS: Backache, Paresthesia, AstheniaLAB ORDERSOrder Description Priority Entered Acknowledged InitialedCBC w Diff STAT 18:15 01/04/2020 18:29 Brianne Ferreira Norma MD; RNCMP STAT 18:15 01/04/2020 18:29 Brianne Ferreira Norma MD; RNLipase STAT 18:15 01/04/2020 18:29 Brianne Ferreira Norma MD; RNTroponin-T STAT 18:15 01/04/2020 18:29 Brianne Ferreira Norma MD; RNMagnesium STAT 18:15 01/04/2020 18:29 Brianne Ferreira Norma MD; RNETOH STAT 18:15 01/04/2020 18:29 Brianne Ferreira Norma MD; RNDIAGNOSTIC STUDY ORDERSOrder Description Priority Entered Acknowledged InitialedCT ABD PEL W/O STAT 18:15 01/04/2020 18:34 Sorbero,Oral W/O IV Almaz Valle MD; Suraj R.NMorrisContrast(Oxygen?(No))(IV?(No)) Reason for Study: Abdominal PainMEDICATION/IV/DRIP/FLUID ORDERSOrder Description Priority Entered Acknowledged InitialedMorphine IM 4 mg 17:09 01/04/2020 17:15 Sorbero,(NOW x1, HIGH Almaz Valle MD; Suraj R.N.ALERTMEDICATION)predniSONE PO 60 17:09 01/04/2020 17:15 Sorbero,mg (NOW x1) Almaz Valle MD; Suraj KuhnAcetaminophen IV 18:16 01/04/2020 18:51 Sorbero, 2 OrderSheet [facility] Emergency Department [address] [place] [address] Phone #: ext- [phone] 01/04/2020 16:17 Patient: DELONTE ZAMORANO Sex: M : 1985 Age: [id number] mg (NOW x1, Almaz Valle MD; Suraj R.NMorrisInfuse over 15minutes)Toradol IVP 30 mg 18:16 01/04/2020 18:50 Barb,(NOW x1) Almaz Valle MD; Suraj R.DaIV NS 1000 mL 18:16 01/04/2020 18:50 Barb,Bolus : Bolus 1000 Almaz Valle MD; Suraj Tinajero.DamL (X1)GENERAL ORDERSOrder Description Priority Entered Acknowledged InitialedEKG 18:15 01/04/2020 18:34 Leonard Day Norma MD; Suraj Kuhn[Electronically signed by Almaz Valle MD (19:53 01/04/2020)][Electronically signed by Suraj Day R.N. (20:08 01/04/2020)][Electronically locked by Suraj Day R.N. (20:08 01/04/2020)] Name Value Range Interpretation Code Description Data Adriana rce(s) Supporting Document(s) ID Date Data Source [id number] 01/04/2020 04:23:00 PM EST [facility] 1 Medication Reconciliation Report [facility] Emergency Department [address] [place] [address] Phone #: ext- [phone] 01/04/2020 16:17 Patient: DELONTE ZAMORANO Sex: M : 1985 Age: 34yWeight: 102.0 kgHeight/Length: 71 in.BMI: 31.4ALLERGIES: No Known Drug AllergyThe patient's Home Medications are listed below:THE FOLLOWING MEDICATIONS NEED TO BE RECONCILED: Lisinopril Oral 10 mg, dailyThe source(s) of the original Home Medication information:patientThe following Medications were given to the patient in the Emergency Department:Morphine [IM] IM 4 mg, administered: 01/04/2020 5:15:00 PMPrednisone [PO] PO 60 mg, administered: 01/04/2020 5:15:00 PMNS [IV] IV Fluids bolus 0, then 1500 mL/hr, administered: 01/04/2020 6:50:00 PMToradol [IVP] IVP 30 mg, administered: 01/04/2020 6:50:00 PMofirmir IVPB bolus 0, then 1000 mg, administered: 01/04/2020 6:51:00 PMThe following Medications were prescribed to the patient:None. Name Value Range Interpretation Code Description Data Adriana rce(s) Supporting Document(s) ID Date Data Source [id number] 01/04/2020 04:23:00 PM EST [facility] 1 Medication Administration Record [facility] Emergency Department [address] [place] [address] Phone #: ext- [phone] 01/04/2020 16:17 Patient: DELONTE ZAMORANO Sex: M : 1985 Age: 34yWeight: 102.0 kgHeight/Length: 71 inBMI: 31.4ALLERGIES: No Known Drug Allergy Date/Time Medication Administered Medication OrderedGiven MORPHINE [IM] Morphine IM 4 mg (NOW x1, HIGH17:15 01/04/2020 Dose: 4 mg IM ALERT MEDICATION)Suraj Day R.N.Given PREDNISONE [PO] predniSONE PO 60 mg (NOW x1)17:15 01/04/2020 Dose: 60 mg Tablets POSorbSuraj morrison R.N.Start ofirmir * Acetaminophen IV 1000 mg (NOW18:51 01/04/2020 Dose: 1000 mg * IVPB x1, Infuse over 15 minutes)Suraj Day R.N.----Stop19:32 01/04/2020SoSuraj kwok R.N.Given TORADOL [IVP] (KETOROLAC Toradol IVP 30 mg (NOW x1)18:50 01/04/2020 TROMETHAMINE)Suraj Day R.N. Dose: 30 mg IVP Site: #1 left ACStart NS [IV] IV NS 1000 mL Bolus : Bolus 146959:50 01/04/2020 Dose: IV Fluids mL (X1)Suraj Day R.N. Rate: 1500 mL/hr over 40 minute(s)---- Dispensed: 1000 mL bagStop Site: #1 left AC19:37 01/04/2020Suraj Day R.N. Name Value Range Interpretation Code Description Data Adriana rce(s) Supporting Document(s) ID Date Data Source [id number] 01/04/2020 04:23:00 PM EST [facility] 1 General Instructions [facility] Emergency Department [address] [place] [address] Phone #: ext- [phone] 01/04/2020 16:17 Patient: DELONTE ZAMORANO Sex: M : 1985 Age: 34yWeakness of the right lower extremity.ParesthesiaNontraumatic lumbar back pain. ADDITIONAL INFORMATIONBack Pain (Acute or Chronic)Back pain is one of the most common problems. The good news is that most people feel better in 1 to2 weeks, and most of the rest in 1 to 2 months. Most people can remain active. 2 General Instructions [facility] Emergency Department [address] [place] [address] Phone #: ext- [phone] 01/04/2020 16:17 Patient: DELONTE ZAMORANO Sex: M : 1985 Age: 34yPeople who have pain describe it differently--not everyone is the same. The pain can be sharp, stabbing, shooting, aching, cramping or burning. Movement, standing, bending, lifting, sitting, or walking may worsen pain. It can be localized to one spot or area, or it can be more generalized. It can spread or radiate upwards, to the front, or go down your arms or legs (sciatica). It can cause muscle spasm.Most of the time, mechanical problems with the muscles or spine cause the pain. Mechanicalproblems are usually caused by an injury to the muscles or ligaments. While illness can cause backpain, it is usually not caused by a serious illness. Mechanical problems include: Physical activity such as sports, exercise, work, or normal activity Overexertion, lifting, pushing, pulling incorrectly or too aggressively Sudden twisting, bending, or stretching from an accident, or accidental movement Poor posture Stretching or moving wrong, without noticing pain at the time Poor coordination, lack of regular exercise (check with your doctor about this) Spinal disc disease or arthritis StressPain can also be related to , or illness like appendicitis, bladder or kidney infections, pelvicinfections, and many other things.Acute back pain usually gets better in 1 to 2 weeks. Back pain related to disk disease, arthritis in thespinal joints or spinal stenosis (narrowing of the spinal canal) can become chronic and last for monthsor years.Unless you had a physical injury (for example, a car accident or fall) X-rays are usually not needed forthe initial evaluation of back pain. If pain continues and does not respond to medical treatment,X-rays and other tests may be needed.Home careTry these home care recommendations: When in bed, try to find a position of comfort. A firm mattress is best. Try lying flat on your back with pillows under your knees. You can also try lying on your side with your knees bent 3 General Instructions [facility] Emergency Department [address] [place] [address] Phone #: ext- [phone] 01/04/2020 16:17 Patient: DELONTE ZAMORANO Sex: M : 1985 Age: 34y up towards your chest and a pillow between your knees. At first, do not try to stretch out the sore spots. If there is a strain, it is not like the good soreness you get after exercising without an injury. In this case, stretching may make it worse. Don't sit for long periods, as in a long car ride or during other travel. This puts more stress on the lower back than standing or walking. During the first 24 to 72 hours after an acute injury or flare up of chronic back pain, apply an ice pack to the painful area for 20 minutes and then remove it for 20 minutes. Do this over a period of 60 to 90 minutes or several times a day. This will reduce swelling and pain. Wrap the ice pack in a thin towel or plastic to protect your skin. You can start with ice, then switch to heat. Heat (hot shower, hot bath, or heating pad) reduces pain and works well for muscle spasms. Heat can be applied to the painful area for 20 minutes then remove it for 20 minutes. Do this over a period of 60 to 90 minutes or several times a day. Do not sleep on a heating pad. It can lead to skin torres or tissue damage. You can alternate ice and heat therapy. Talk with your doctor about the best treatment for your back pain. Therapeutic massage can help relax the back muscles without stretching them. Be aware of safe lifting methods and do not lift anything without stretching first.MedicinesTalk to your doctor before using medicine, especially if you have other medical problems or are takingother medicines. You may use rxsv-nlu-cgtdvyo medicine as directed on the bottle to control pain, unless another pain medicine was prescribed. If you have chronic conditions like diabetes, liver or kidney disease, stomach ulcers, or gastrointestinal bleeding, or are taking blood thinners, talk to your doctor before taking any medicine. Be careful if you are given a prescription medicines, narcotics, or medicine for muscle spasms. They can cause drowsiness, affect your coordination, reflexes, and judgement. Do not drive or operate heavy machinery.Follow-up careFollow up with your healthcare provider, or as advised.A radiologist will review any X-rays that were taken. Your provide will notify you of any new findingsthat may affect your care. 4 General Instructions [facility] Emergency Department [address] [place] [address] Phone #: ext- [phone] 01/04/2020 16:17 Patient: DELONTE ZAMORANO Sex: M : 1985 Age: 34yCall 911Call 911 if any of the following occur: Trouble breathing Confusion Very drowsy or trouble awakening Fainting or loss of consciousness Rapid or very slow heart rate Loss of bowel or bladder controlWhen to seek medical adviceCall your healthcare provider right away if any of these occur: Pain becomes worse or spreads to your legs Weakness or numbness in one or both legs Numbness in the groin or genital area [id number] [employer] [place] [address]. All rights reserved. This information is not intended as asubstitute for professional medical care. Always follow your healthcare professional's instructions.ParaesthesiasParaesthesia is a burning or prickling sensation that is sometimes felt in the hands, arms, legs or feet.It can also occur in other parts of the body. It can also feel like tingling or numbness, skin crawling, oritching. The feeling is not comfortable, but it is not painful. (The "pins and needles" feeling thathappens when a foot or hand "falls asleep" is a temporary paraesthesia.)Paraesthesias that last or come and go may be caused by medical issues that need to be treated.These include stroke, a bulging disk pressing on a nerve, a trapped nerve, vitamin deficiencies,uncontrolled diabetes, alcohol abuse, or even certain medicines.Tests are often done. These tests may include blood tests, X-ray, CT (computerized tomography)scan, nerve conduction studies (NCS), or a muscle test (electromyography). Depending on the cause,treatment may include physical therapy.Home care Tell your healthcare provider about all medicines you take. This includes prescription and hkvu-rxk-eizccfm medicines, vitamins, and herbs. Ask if any of the medicines may be causing 5 General Instructions [facility] Emergency Department [address] [place] [address] Phone #: ext- [phone] 01/04/2020 16:17 Patient: DELONTE ZAMORANO Sex: M : 1985 Age: 34y your problems. Don't make any changes to prescription medicines without talking to your healthcare provider first. You may be prescribed medicines to help relieve the tingling feeling or for pain. Take all medicines as directed. A numb hand or foot may be more prone to injury. To help protect it: o Always use oven mitts. o Test water with an unaffected hand or foot. o Use caution when trimming nails. File sharp areas. o Wear shoes that fit well to avoid pressure points, blisters, and ulcers. o Inspect your hands and feet carefully (including the soles of your feet and between your toes) daily. If you see red areas, sores, or other problems, tell your healthcare provider.Follow-up careFollow up with your doctor, or as advised. You may need further testing or evaluation.When to seek medical adviceCall your healthcare provider right away if any of the following occur: Numbness or weakness of the face, one arm, or one leg Slurred speech, confusion, trouble speaking, walking, or seeing Severe headache, fainting spell, dizziness, or seizure Chest, arm, neck, or upper back pain Loss of bladder or bowel control Open wound with redness, swelling, or pus [phone] [employer]. [address] [place] [address]. All rights reserved. This information is not intended as asubstitute for professional medical care. Always follow your healthcare professional's instructions. You have been given the following additional information: Back Pain (Acute or Chronic) Paraesthesias 6 General Instructions [facility] Emergency Department [address] [place] [address] Phone #: ext- [phone] 01/04/2020 16:17 Patient: DELONTE ZAMORANO Sex: M : 1985 Age: 34y(Electronically signed by Almaz Valle MD 01/04/2020 19:53) Name Value Range Interpretation Code Description Data Adriana rce(s) Supporting Document(s) ID Date Data Source [id number] 01/04/2020 04:23:00 PM [facility] 1 Clinical Report - Nurses [facility] Emergency Department [address] [place] [address] Phone #: ext- [phone] 01/04/2020 16:17 Patient: DELONTE ZAMORANO Sex: M : 1985 Age: 34yTRIAGEArrived by private vehicle. Historian: patient. ( back pain with pain shooting down right leg).Triage time: 16:21 01/04/2020. Acuity: LEVEL 4.Chief Complaint: BACK PAIN.Alert.This started yesterday. No history of recent trauma.Pre-hospital notification of patient arrival was not received.Treatment STRIPPER BLACK AND WHITE:Took Tylenol.SEPSIS SCREEN: Sepsis Screen negative. No suspected or confirmed signs of infection present. --16: Suraj Day R.N.16:01/04/20. BP: 140/107. MAP: 118. HR: 101. RR: 16. O2 saturation: 100%. Temp: 98.1 F. Pain levelnow: 09/14. --16:31 01/04/20 Suraj Day R.N.Weight: 102 kg stated. Height/Length: 71 inches Per Patient. BMI: 31.4. --16:25 01/04/20 Suraj Day R.N.MedicationsLisinopril Oral 10 mg, daily. --16:01/04/20 Suraj Day R.N.AllergiesNo Known Drug Allergy. --16:27 01/04/20 Suraj Day R.N.PROBLEMS:Epididymitis.Eso phagitis.Diarrhea.Contusion.Dental Caries.GI Bleeding.GI Disease.Gastroesophageal Reflux Disease.Gastric ulcer.Gastritis.Back Pain. 2 Clinical Report - Nurses [facility] Emergency Department [address] [place] [address] Phone #: ext- [phone] 01/04/2020 16:17 Patient: DELONTE ZAMORANO Sex: Betsy : 1985 Age: 34yBack Injury.Atypical Chest Pain.Abdominal Pain.Anxiety Reaction.Bulging discs.Chronic Back Pain.Biliary Colic.Herniated Disk.Renal Colic.Peptic Ulcer Disease.Sciatica.UTI - Urinary Tract Infection.Panic Attack.Pancreatitis.Viral Disease.Spina bifida.Intervertebral Disc Disease.Muscle Spasm.Mesenteric Lymphadenitis.Myofascial Strain.Kidney Infection.Lumbar Strain. --16:43 01/04/20 Suraj Day R.N.The following entry was modified by Suraj Day R.N., 16:43 01/04/20Back Pain. --16:42 01/04/20 Suraj Day R.N.The following entry was modified by Suraj Day R.N., 16:43 01/04/20Hypertension. --16:42 01/04/20 Suraj Day R.N..Medication/allergy information source: the patient and patient's previous visit record. --16:31 01/04/20Suraj garcia R.N.ADDIT IONAL SURGERIES:Cholecystectomy.Right finger surgery.Right finger surgery.Skin grafting.Spinal fusion [10/2018]. --16:28 01/04/20 Suraj Day R.N.HistorySOCIAL HX: Current every day light tobacco smoker (cigarette)- less than 1/2 a pack per day. Occasionalalcohol use. History of occasional drug use: marijuana. He was offered HIV testing but declined andhepatitis C testing but declined. He has not traveled outside the [place]Infectious disease exposure: No infectious disease exposure. The patient was not exposed to Coronavirus.Patient is not a known carrier of tuberculosis, hepatitis, HIV, MRSA or VRE. Patient is not a known carrier 3 Clinical Report - Nurses [facility] Emergency Department [address] [place] [address] Phone #: ext- [phone] 01/04/2020 16:17 Patient: DELONTE ZAMORANO Sex: Betsy : 1985 Age: 34y of CRE. SELF HARM ASSESSMENT: Self harm assessment was performed. The patient answered "no" to the question(s) "Have you recently felt down, depressed, or hopeless?", "Do you have thoughts of harming or killing yourself?", "Do you have a plan for harming or killing yourself?" and "Have you recently had thoughts about harming or killing others?". ABUSE ASSESSMENT: No report of abuse. --16:31 01/04/20 Suraj Day R.N. Assessment The patient states feels the same. --16:01/04/20 Suraj Day R.N. Interventions Identification band on patient. To treatment room. --16:01/04/20 Suraj Day R.N.PHYSICAL [id number]:01/04/20. Ambulatory to room.GENERAL / NEURO / PSYCH: Alert. Oriented X 4. Appears in no acute distress. Appears in pain.RESPIRATORY: Respirations not labored. Chest nontender. Breath sounds within normal limits.CVS: Capillary refill less than 2 seconds.GI / : Abdomen soft and nontender. Bowel sounds within normal limits.EXTREMITIES: Sensation intact in extremities. ROM of extremities within normal limits.BACK: Normal inspection of the neck and back. No neck or back tenderness. ROM of neck and backwithin normal limits. --16:01/04/20 Suraj Day R.N. 18:30 01/04/20. GENERAL / NEURO / PSYCH: Alert. Oriented X 4. Appears in pain. RESPIRATORY: Respirations not labored. Right upper costochondral tenderness and right upper chest wall tenderness. The tenderness is well-localized. Breath sounds within normal limits. CVS: Cardiac rhythm: normal sinus rhythm; no ectopy noted (95). Capillary refill less than 2 seconds. GI / : Abdomen soft and nontender. Bowel sounds within normal limits. EXTREMITIES: Sensation intact in extremities. ROM of extremities within normal limits. BACK: Normal inspection of the neck and back. No neck or back tenderness. ROM of neck and back within normal limits. --18:01/04/20 Suraj Day R.N.NURSING PROGRESS NOTESPatient gowned. Two patient identifiers checked. Call light placed in reach. [facility] bed on. Patient ready for evaluation- ED physician notified. --16:01/04/20Suraj garcia R.N. 17:15 01/04/2020 Morphine IM 4 mg given. Given in the right deltoid. Allergies verified and confirmed 5 rights. Information reviewed with patient including reason for taking this medication, signs of allergic reaction, precautions and sedative warning. Verbalizes understanding. --17:15 01/04/20 Suraj Day R.N. 4 Clinical Report - Nurses [facility] Emergency Department [address] [place] [address] Phone #: ext- [phone] 01/04/2020 16:17 Patient: DELONTE ZAMORANO Sex: M : 1985 Age: 34y17:15 01/04/2020 Prednisone PO Tablets 60 mg given. Allergies verified and confirmed 5 rights.Information reviewed with patient including reason for taking this medication, signs of allergic reaction andprecautions. Verbalizes understanding. --17:15 01/04/20 Suraj Day R.N.18:12 01/04/20. ( now c/o pain under right axillary, abdomen. dr valle in to see patient. ambulancecrew just arrived went to load patient and patient started to c/o right abdominal and chest pain. d/ccanceled. to evaluated for chest pain.). --18:14 01/04/20 Suraj Day R.N.18:31 01/04/2020 Site #1 started via IV in the left antecubital space with an 20g angiocath, with aseptictechnique and good blood return; two attempts. Blood drawn: rainbow set. Labeled in the presence of thepatient and sent to the lab. Saline lock flushed with 10 mL saline. --18:31 01/04/20 Suraj Day R.N.EKG time: (18:26 01/04/2020). EKG was ordered, performed by a nurse and shown to the ED physician.--18:31 01/04/20 Suraj Day R.N.18:34 01/04/20. Patient transported to [place] by wheelchair with pbx technician. --18:35 01/04/20 Suraj Day R.N.18:33 01/04/20. BP: 151/96. MAP: 114. HR: 80. RR: 16. O2 saturation: 99%. Pain level now: 11/14.--18:35 01/04/20 Suraj Day R.N.18:50 01/04/2020 Started bag #1 1000 mL IV Fluids NS; at 1500 mL/hr over 40 minute(s) via site #1 via IVpump. Allergies verified and confirmed 5 rights. IV patency established. IV site checked: no pain, redness,or swelling. IV flushed thoroughly pre- and post-medication administration. Information reviewed withpatient including reason for taking this medication, signs of allergic reaction and precautions. Verbalizesunderstanding. --18:50 01/04/20 Suraj Day R.N.18:50 01/04/2020 Toradol (Ketorolac Tromethamine) IVP 30 mg given over 2 minute(s) via site #1.Allergies verified and confirmed 5 rights. IV patency established. IV site checked: no pain, redness, orswelling. IV flushed thoroughly pre- and post-medication administration. IVP given by RN. Informationreviewed with patient including reason for taking this medication, signs of allergic reaction and precautions.Verbalizes understanding. --18:50 01/04/20 Suraj Day R.N.18:51 01/04/2020 ofirmir * IVPB 1000 mg --18:51 01/04/20 Suraj aDy R.N.18:51 01/04/20. Cardiac rhythm: (75 atrial rate). --18:52 01/04/20 Suraj Day R.N.18:58 01/04/20. ( spoke to Michelle SOSA at [facility] ER to inform her transfer is delayed until further noticebecause of chest pain and evaluation. we will keep them posted.). --18:59 01/04/20 Suraj Day R.N.19:19 01/04/20. BP: 147/90. MAP: 109. HR: 74. RR: 17. O2 saturation: 100%. --19:19 01/04/20 Marisol Harris, ER Tech1 5 Clinical Report - Nurses [facility] Emergency Department [address] [place] [address] Phone #: [phone] ext- [phone] 01/04/2020 16:17 Patient: DELONTE ZAMORANO Sex: M : 1985 Age: 34y 19:29 01/04/20. BP: 155/82. MAP: 106. HR: 67. RR: 15. O2 saturation: 100%. --19:29 01/04/20 Yeaddiss story analyst, Marisol, ER Tech1 19:32 01/04/2020 Ofirmir IVPB Discontinued: bag #1 completed. Total amount infused: 100 mL. IV patency established. IV site checked: no pain, redness, or swelling. IV flushed thoroughly. --19:47 01/04/20 Suraj Day R.N. 19:37 01/04/2020 IV Fluids NS via IV site #1 Discontinued: bag #1 infused upon transfer. Total a mount infused: 600 mL. IV patency established. IV site checked: no pain, redness, or swelling. IV flushed thoroughly. --19:47 01/04/20 Suraj Day R.N.DISPOSITION / DISCHARGE 17:20 01/04/20. Condition at departure: improved and stable. The goals identified in the patient's plan of care were met. Fall risk assessment completed. Risk factors identified include patient impairment of mobility. Transferred to [facility]. Visit overview, summary of care (CCDA), Emtala forms and Face Sheet provided to EMS and transfer facility via paper, fax and email. Report was given to a nurse via a phone call and visit overview. Report included information regarding patient's treatment, allergies and condition including: recent changes and current and abnormal vital signs. Report included treatment information regarding medications given or pending. All questions were answered. Care was transferred. Bed obtained and ready (ER). Patient's personal items; items were transported with the patient. Collection of belongings was witnessed by 1 nurse. --17:46 01/04/20 Suraj Day R.N. 18:04 01/04/20. BP: 142/95. MAP: 110. HR: 94. RR: 16. O2 saturation: 97%. Temp: 97.1 F. Pain level now: 06/14. --18:06 01/04/20 Suraj Day R.N. 19:40 01/04/20. Departure time: 19:45 01/04/2020. Transported via ambulance by EMS. Report was given to a nurse via a phone call and visit overview. Report included information regarding patient's allergies and condition including: recent changes, current vital signs and abnormal labs. Report included treatment information regarding medications given or pending; type and amount of IV fluids total volume infused. All questions were answered. Report was acknowledged and care was transferred. (Michelle). Patient's personal items; items were transported with the patient. Collection of belongings was witnessed by 1 nurse. --19:47 01/04/20 Suraj Day R.N. 19:45 01/04/20. BP: 155/82. MAP: 106. HR: 68. RR: 16. O2 saturation: 99%. Temp: 97.1 F. Pain level now: 03/17. --19:47 01/04/20 Suraj Day R.N.Locked/Released at 01/04/2020 20:08 by Suraj Day R.N. 6 Clinical Report - Nurses [facility] Emergency Department [address] [place] [address] Phone #: ext [phone] 01/04/2020 16:17 -------- Patient: DELONTE ZAMORANO Sex: M : 1985 Age: 34y Name Value Range Interpretation Code Description Data Adriana rce(s) Supporting Document(s) ID Date Data Source [id number] 0001 01/04/2020 04:23:00 PM EST [facility] 1 Clinical Report - Physicians/Mid Levels [facility] Emergency Department [address] [place] [address] Phone #: ext- [phone] 01/04/2020 16:17 [id number] Sex[facility] M : 1985 Age: 34y Historian- patient. Disposition decision: 19:42 01/04/2020.HISTORY OF PRESENT ILLNESS Chief Complaint: BACK PAIN. Onset- 2 days and it is still present. It is described as being severe and in the area of the lower lumbar spine and sacrum and radiating to the right hip, thigh, knee, calf and foot. The quality is noted to be aching. Patient denies an injury. No injury to the head or neck. Similar symptoms previously. Recent medical care: Not recently seen/assessed.REVIEW OF SYSTEMSNo fever, chills, eye irritation or difficulty with urination or urination. No urinary frequency or urinaryfrequency, hematuria, headache or depression. No sore throat or throat, cough or difficulty breathing. Nochest pain or pain, abdominal pain or pain or nausea. No vomiting, diarrhea, black stools, bloody stools orchills. No fever, decreased vision, ear pain, runny nose or cough. No difficulty breathing, constipation,diarrhea, nausea or vomiting. No skin rash, seizure or easy bruising. The patient has had back pain,numbness, and weakness. He has had difficulty walking.PAST HISTORYSee nurses notes. Problems: Herniated Disk. Intervertebral Disc Disease. Mesenteric Lymphadenitis. Myofascial Strain. Kidney Infection. Lumbar Strain. Additional Surgeries: Cholecystectomy. Right finger surgery. Right finger surgery. Skin grafting. Spinal fusion [10/2018]. Medications: Lisinopril Oral 10 mg, daily. Allergies: 2 Clinical Report - Physicians/Mid Levels [facility] Emergency Department [address] [place] [address] Phone #: ext- [phone] 01/04/2020 16:17 Patient: DELONTE ZAMORANO Sex: M : 1985 Age: 34y No Known Drug Allergy.SOCIAL HISTORYThe patient lives with a family member.ADDITIONAL NOTESThe nursing notes have been reviewed.PHYSICAL EXAMVital Signs: 01/04/2020 16:25 BP: 140/107. MAP: 118. HR: 101. RR: 16. O2 saturation: 100%. Temp: 98.1F. Pain level now: 09/14. Have been reviewed and appear to be c orrect. Blood pressure normal. Meanarterial pressure- high. Tachycardic. Respiratory rate normal. Temperature normal. Oxygen saturationnormal.Appearance: Alert. No acute distress.HEENT: Normal external inspection.Eyes: Pupils equal, round and reactive to light.ENT: Ears normal. Pharynx normal.Neck: Normal inspection. Neck nontender. Painless ROM.CVS: Heart sounds normal. Pulses normal.Respiratory: No respiratory distress. Painless inspiration. Breath sounds normal.Abdomen: No visible injury. Soft and nontender. Bowel sounds normal.Back: Vertebral point tenderness. Soft tissue tenderness. Limited ROM in the back. (midline pain tolumbar/sacral region along incision).Skin: Normal skin color. Cool skin.Neuro: Oriented X 3. Mood/affect normal. (decreased plantar flexion right leg, pt walks with a limpholding his right side, decreased sensation bilaterally but worse on the right side.).PROGRESS AND PROCEDURESCourse of Care: pt presents to the ED with complaints of lower back pain. he states on 10/01/19, did spine surgery on him at [facility]. He states he used a walker for 2 months. he has beendoing well up until 2 days ago. he states he was not involved in any trauma. he states he picked upgroceries and his toddler but he has not been doing anything very strenuous. he denies any bowel orbladder incontinence or any specific saddle paresthesias, however, he states that he has significanthyperethesias and numbness to right lower ext. on exam, he has weakness on plantar flexion which ismore prominent compared to the left leg. I feel patient requires an MRI. pt was given im morphine andprednisone po. He is having mild relief. I called and spoke to Dr. Moya in the ED. We discussed thecase. He agreed to accept. Transfer paperwork filled out. I made pt aware of the transfer. 19:33 01/04/20. At time of transfer, EMS was at bedside and pt states he developed horrific ruq abdominal pain. on exam, he had mild tenderness. he has already had a cholecystectomy. In front of the patient, the bedside nurse and ems staff witnessed pt admitting that he did not have any abdominal pain on arrival. pt stated he was concerned it was his pancreatitis. he denies drinking alcohol. I wanted to ensure that we had not missed any other brewing pathology. I cancelled transport. labs including cbc, cmp, lipase, etoh, and trop were negative. ekg showed no acute findings. ct abd/pelvis showed no acute findings. pt 3 Clinical Report - Physicians/Mid Levels [facility] Emergency Department [address] [place] [address] Phone #: ext- [phone] 01/04/2020 16:17 Patient: DELONTE ZAMORANO Sex: M : 1985 Age: 34y was given iv acetaminophen and iv toradol. pt's abdominal exam was benign. he stated he felt better and was grateful for the care we provided. At this point and time, transport was called. My goal for pt being transported is solely to evaluate pt for his back pain, hyperesthesias, paresthesias, and his weakness more notable on the right lower extremity. Patient/family counseled. Disposition: Transferred to [facility]. Condition: stable.CLINICAL IM PRESSION Weakness of the right lower extremity. Paresthesia Nontraumatic lumbar back pain.(Electronically signed by Almaz Valle MD 01/04/2020 19:53) Name Value Range Interpretation Code Description Data Adriana rce(s) Supporting Document(s) ID Date Data Source [id number] 01/04/2020 07:16:00 PM EST [place] [id number] [facility] [place] [address] ---------NAME--------- NUMBER SEX AGE ADMIT DISC. XRAY# F/C TYPE JAUN Meyer [id number] M 34 01/04/20 [id number] E/R DATE OF : 1985 M/R# [id number] #: [id number] TR-06 LOCATION: EMERGENCY DEPT TRANSCRIBED: 01/04/20 19:[address] ABD //T// PELV W/O ORAL W/[place] [id number] COMPLETED:01/04/20 19:12 [facility] [id number] Reason(s): Abdominal Pain PHYSICIAN: KEYA======= R A D I O L O G Y R E P O R T PATIENT HISTORY:abdominal pain 3 months s/p lumbar fusion, accumulated dlp 1154.5 mGy*cm est SRW6738.2 mGy*cm MALE 2 PT IDENTIFIERS-JJH / ABD/PEL (DICOM Hx)EXAM: CT Abdomen and Pelvis Without IV contrastCLINICAL HISTORY: Abdominal pain 3 months s/p lumbar fusion, accumulated faj6249.5 mGy*cm est DLP 1143.2 mGy*cm MALE 2 PT IDENTIFIERS-JJHTECHNIQUE: Axial computed tomography images of the abdomen and pelvis withoutintravenous contrast.CONTRAST: No IV contrast.COMPARISON: 02/08/19.FINDINGS:LUNG BASES: The lung bases appear clear. No pleural effusions are seen.LIVER: Unremarkable.GALLBLADDER AND BILE DUCTS: The gallbladder is absent.PANCREAS: Unremarkable.SPLEEN: Unremarkable.ADRENAL GLANDS: Unremarkable.KIDNEYS, URETERS, AND BLADDER: The kidneys demonstrate papillary calcifications.1 mm calcification/stone in the left and right kidney. No hydronephrosis.STOMACH AND BOWEL: Unremarkable appearance of the stomach and bowel. No evidenceof bowel obstruction. No evidence suggesting enteritis or colitis.APPENDIX: No evidence of acute appendicitis on CT examination.PERITONEUM: No free fluid. No free air.LYMPH NODES: No lymphadenopathy is evident.REPRODUCTIVE: Unremarkable as visualized.VASCULATURE: No evidence of abdominal aortic aneurysm.BONES: No aggressive appearing osseous lesion. No acute osseous pathologyevident. Postoperative changes lower lumbar spineIMPRESSIONS:1. Status post cholecystectomy.2. Nonobstructive papillary calcifications bilaterally. Small nonobstructivekidney stones are present bilaterally.3. Normal appendix4. Prior Bony harvesting from the right iliac bone.While performing the above CT examination, radiation dose reduction wasaccomplished utilizing automated exposure control, adjusting of the mA and kVbased on the patient's body size and/or the use of imperative recons tructivetechniques.Electronically Signed By:Sana De Santiago MD , RadiologistDate/Time: 01/04/20 19:16 Name Value Range Interpretation Code Description Data Adriana rce(s) Supporting Document(s) ID Date Data Source [id number] 01/04/2020 07:00:00 PM [facility] Name Value Range Interpretation Code Description Data Adriana rce(s) Supporting Document(s) TROPONIN T <0.01 NG/ML 0.00 - 0.10 [facility] ospital TROPONIN T0.1 ng/ml Recommended as the c linical threshold value forTroponin T. ID Date Data Source [id number] 01/04/2020 06:59:00 PM [facility] Name Value Range Interpretation Code Description Data Adriana rce(s) Supporting Document(s) Ethanol [Moles/volume] in Blood <10.0 MG/DL [facility] ALCOHOL % 0.01 % 0.00 - 0.01 [facility] *FOR MEDICAL PURPOSES ONLY * ID Date Data Source [id number] 01/04/2020 06:59:00 PM [facility] Name Value Range Interpretation Code Description Data Adriana rce(s) Supporting Document(s) Magnesium [Mass/volume] in Serum or Plasma 1.9 MG/DL 1.7 - 2.2 [facility] ID Date Data Source [id number] 01/04/2020 06:59:00 PM [facility] Name Value Range Interpretation Code Description Data Adriana rce(s) Supporting Document(s) Lipase [Enzymatic activity/volume] in Serum or Plasma 64 U/L 13 - 60 H [facility] ID Date Data Source [id number] 01/04/2020 06:59:00 PM [facility] Name Value Range Interpretation Code Description Data Adriana rce(s) Supporting Document(s) COMPREHENSIVE METABOLIC PANEL [facility] COMPREHENSIVE METABOLIC PANEL Sodium [Moles/volume] in Serum or Plasma 136 mEq/L 134 - 153 [facility] Potassium [Moles/volume] in Serum or Plasma 4.3 mEq/L 3.6 - 5.0 [facility] Chloride [Moles/volume] in Serum or Plasma 100 mEq/L 98 - 107 [facility] Carbon dioxide, total [Moles/volume] in Serum or Plasma 24 MEQ/L 22 - 30 [facility] Glucose [Mass/volume] in Serum or Plasma 100 MG/DL 65 - 110 [facility] BUN 11 MG/DL 7 - 21 [facility] al Creatinine [Mass/volume] in Serum or Plasma 0.9 MG/DL 0.7 - 1.5 [facility] BUN/CREAT 12 8 - 27 [facility] al Protein [Mass/volume] in Serum or Plasma 7.7 G/DL 6.3 - 8.2 [facility] Albumin [Mass/volume] in Serum or Plasma 5.0 G/DL 3.9 - 5.0 [facility] Globulin [Mass/volume] in Serum by calculation 2.7 GM/DL 2.4 - 3.2 [facility] A/G RATIO 1.9 0.8 - 2.0 [facility] Calcium [Mass/volume] in Serum or Plasma 10.0 MG/DL 8.4 - 10.2 [facility] Bilirubin.total [Mass/volume] in Serum or Plasma <0.7 MG/DL 0.2 - 1.3 [facility] Alkaline phosphatase [Enzymatic activity/volume] in Serum or Plasma 94 U/L 38 - 126 [facility] Aspartate aminotransferase [Enzymatic activity/volume] in Serum or Plasma 30 U/L 5 - 40 [facility] Alanine aminotransferase [Enzymatic activity/volume] in Seru m or Plasma 33 U/L 7 - 56 [facility] Anion gap 3 in Serum or Plasma 12.0 mmol/L 8.0 - 16.0 [facility] AGE 34 yrs [facility] NON-AA GFR >60 mL/min [facility] AFR AMER GFR >60 mL/min [facility] Male GFR In terprentation 20-49 yrs >60 mL/min Normal 50-59 yrs >56 mL/min Normal 60-69 yrs >49 mL/min Normal 70-79yrs >42 mL/min Normal 80 and above >35 mL/min Normal Female GFR Interpretation 20-39 yrs >60 mL/min Normal 40-49 yrs >58 mL/min Normal 50-59 yrs >51 mL/min Normal 60-69 yrs >45 mL/min Normal 70-79 yrs >39 mL/min Normal 80 and above >32 mL/min Normal ID Date Data Source [id number] 01/04/2020 06:40:00 PM EST [facility] Name Value Range Interpretation Code Description Data Adriana rce(s) Supporting Document(s) CBC W/AUTOMATED DIFF [facility] COMPLETE BLOOD COUNT Leukocytes [#/volume] in Blood by Automated count 9.3 10^3/uL 4.2 - 1 1.0 [facility] Erythrocytes [#/volume] in Blood by Automated count 5.86 10^6/uL 4. 50 - 6.30 [facility] Hemoglobin [Mass/volume] in Blood 17.6 g/dL 14.0 - 16.0 H [facility] Hematocrit [Volume Fraction] of Blood by Automated count 51.3 % 4 1.0 - 51.0 H [facility] Erythrocyte mean corpuscular volume [Entitic volume] by Auto mated count 87.5 fL 80.0 - 94.0 [facility] Erythrocyte mean corpuscular hemoglobin [Entitic mass] by Automated count 30.0 pg 27.0 - 34.0 [facility] Erythrocyte mean corpuscular hemoglobin concentration [Mass/volume] by Automated count 34.3 g/dL 31.0 - 36.0 [facility] Erythrocyte distribution width [Ratio] by Automated count 12.0 % 11.5 - 14.8 [facility] Platelets [#/volume] in Blood by Automated count 430 10^3/uL 150 - 45 0 [facility] Platelet mean volume [Entitic volume] in Blood by Automated count 9.2 fL 7.4 - 10.4 [facility] Neutrophils/100 leukocytes in Blood by Automated count 62.5 % 37. 0 - 80.0 [facility] Lymphocytes/100 leukocytes in Blood by Manual count 26.9 % 25.0 - 40.0 [facility] Monocytes/100 leukocytes in Blood by Automated count 7.3 % 3.0 - 8.0 [facility] Eosinophils/100 leukocytes in Blood by Automated count 2.0 % 0.0 - 7.0 [facility] Basophils/100 leukocytes in Blood by Automated count 1.0 % 0.0 - 2.0 [facility] %IG 0.3 % 0.0 - 0.0 H [facility] al %NRBC 0.0 % 0.0 - 0.0 [facility] al Neutrophils [#/volume] in Blood by Automated count 5.82 10^3/uL 2.00 - 6.90 [facility] Lymphocytes [#/volume] in Blood by Automated count 2.50 10^3/uL 0.60 - 3.40 [facility] Monocytes [#/volume] in Blood by Automated count 0.68 10^3/uL 0.00 - 0.90 [facility] Eosinophils [#/volume] in Blood by Automated count 0.19 10^3/uL 0.00 - 0.70 [facility] Basophils [#/volume] in Blood by Automated count 0.09 10^3/uL 0.00 - 0.20 [facility] #IG 0.03 10^3/uL 0.00 - 0.10 [facility] ospital #NRBC 0.00 10^3/uL 0.00 - 0.00 [facility] MANUAL DIFF NOT INDICATED [facility] RBC MORPH NOT INDICATED [facility] ID Date Data Source [id number] 11/12/2019 01:02:29 PM EDT [facility], PCName: Delonte ZamoranoDOB: 1985Provider: Reji GriggsDOS: 11/12/2019 Reason For VisitSaure Zamorano is here today for Lumbar spine. Delonte Zamorano is an established patient here for follow up and Delonte Zamorano is here for first post-op appointment. Surgery DOS: 09-30-2019. Surgery Description: Lumbar 5 to Sacral 1 Laminectomy Foraminotomies Interbody Fusion Posterior Lateral fusion Cage Placement Instrumentation Iliac Crest Bone Graft.. Patient is not working at this time due to this problem. History of Present IllnessFollow-up lumbar surgeryPostop low back pain slowly improvingPreoperative leg pain is improved but still present-now for sciaticPreoperative left foot numbness is gone; now with numbness left buttock areaNo signs of infection Results/DataXRays were ordered, obtained and interpreted today in the office. Indication: pain/dysfunction. Site: Lumbar Spine Views: 3 Views, AP/Lateral - Standing/Bangura Findings:. Good position of implants and healing fusion. Results/Data OtherMRI lumbar SOS 08/20/19: Comparison 02/28/18-no significant change. L5-S1 spondylolisthesis. Left L5-S1 protrusion. Assessment 1. Lower back pain (724.2) (M54.5) 2. Postsurgical arthrodesis status (V45.4) (Z98.1) condition: Chronicetiology: age-related spine/joint degenerationlevels: L5-S1 Plan X-Ray I Lumbosacral - 2 views (XRays were ordered, obtained and i nterpreted today inthe office. Indication: pain/dysfunction.); Status:Complete; Done: 12Nov2019 Perform:SOS14 (General); Due:26Nov2019; Last Updated By:Den Edwards; 11/12/2019 12:49:32 PM;Ordered; For:Lower back pain; Ordered By:Denny Griggs Physical Therapy (SOS) - Spinal Physical Therapy Evaluation and Treatment Status:Complete Done: 12Nov2019 Ordered;For: Lower back pain; Ordered By: Reji Griggs Performed: Order Comments: 12 sessionsplease fax reports to ([phone]. thank you Due: [id number]; Last Updated By: Stephanie Nina; 11/12/2019 1:01:12 PMDuration: : Four WeeksPT F requency : Two or three times a weekSOS ROM and Strength : Range of motion and strengthening exercises.Heat Ultra and Modalities : Heat Ultrasound and modalities as indicatedEvaluate and Treat: : Please evaluate and treat as indicated. Plan, Assessment and Recommendation(s) Schedule Appointment: Months: 2 X-Rays ARE required at next visit. The various alternatives and treatment options were discussed with pros and cons, risks, and potential benefits of each option reviewed. He wishes to proceed with physical therapy. I will send the patient for formal physical therapy. Also advised he will need to contact his PCP to arrange continued pain medication either through the PCP or have the PCP f refer him to pain clinic, after our designated postop pain protocol finished This document was dictated and electronically signed using [employer] software. A reasonable attempt at proof reading has been made to minimize errors. Please call with any questions. Signatures Electronically s igned by : Reji Griggs M.D.; Nov 12 2019 1:02PM EST (Author) Name Value Range Interpretation Code Description Data Adriana rce(s) Supporting Document(s) Procedure Social History Code Duration Value Status Description Data Source(s ) Alcohol intake 07/22/2020 12:00:00 AM EDT Ex-drinker (finding) comp leted Ex- drinker (finding) [facility] Tobacco use and exposure 07/22/2020 12:00:00 AM EDT Never used co mpleted Never used [facility] Cigarette pack-years 07/22/2020 12:00:00 AM EDT UNK [facility] Cigarettes smoked current (pack per day) - Reported 07/23/19 12:00:00 AM EDT UNK [facility] Smoking 07/22/2020 12:00:00 AM EDT Current every day smoker co mpleted Current every day smoker [facility] Alcohol intake 04/28/2020 12:00:00 AM EDT Ex-drinker (finding) comp leted Ex- drinker (finding) [facility] Alcohol intake 04/09/2020 12:00:00 AM EST Current drinker of al cohol (finding) completed Current drinker of alcohol (finding) [facility] Smoking 02/17/2020 12:00:00 AM EST Current Smoker completed Curre nt Smoker eCW1 ([facility]) Alcohol intake 01/05/2020 12:00:00 AM EST Yes completed [facility] Smoking 01/05/2020 12:00:00 AM EST Former smoker completed Former smoker [facility] Vital Signs ID Date Data Source UNK Name Value Range Interpretation Code Description Data Source(s) Body height 71 [in_i] 71 [in_i] [place] ([facility]) Diastolic blood pressure 103 mm[Hg] 103 mm[Hg] [place] ([facility]) Diastolic blood pressure 111 mm[Hg] 111 mm[Hg] [place] ([facility]) Body height 71 [in_i] 71 [in_i] [place] ([facility]) Body mass index (BMI) [Ratio] 29.8 kg/m2 29.8 k g/m2 [place] ([facility]) Systolic blood pressure 150 mm[Hg] 150 mm[Hg] [facility] ([facility]) Systolic blood pressure 162 mm[Hg] 162 mm[Hg] [facility] ([facility]) Body weight 3424 [oz_av] 3424 [oz_av] [place] ([facility]) Diastolic blood pressure 103 mm[Hg] 103 mm[Hg] [place] ([facility]) Diastolic blood pressure 111 mm[Hg] 111 mm[Hg] [place] ([facility]) Body height 71 [in_i] 71 [in_i] [place] ([facility]) Body mass index (BMI) [Ratio] 29.8 kg/m2 29.8 k g/m2 [place] ([facility]) Systolic blood pressure 150 mm[Hg] 150 mm[Hg] [facility] ([facility]) Systolic blood pressure 162 mm[Hg] 162 mm[Hg] [facility] ([facility]) Body weight 3424 [oz_av] 3424 [oz_av] [place] ([facility]) Diastolic blood pressure 76 mm[Hg] 76 mm[Hg] [place] ([facility]) Diastolic blood pressure 91 mm[Hg] 91 mm[Hg] [place] ([facility]) Body height 71 [in_i] 71 [in_i] [place] ([facility]) Body mass index (BMI) [Ratio] 30.3 kg/m2 30.3 k g/m2 [place] ([facility]) Systolic blood pressure 154 mm[Hg] 154 mm[Hg] A [place] ([facility]) Systolic blood pressure 149 mm[Hg] 149 mm[Hg] A [place] ([facility]) Body weight 3472 [oz_av] 3472 [oz_av] [place] ([facility]) Diastolic blood pressure 76 mm[Hg] 76 mm[Hg] [place] ([facility]) Diastolic blood pressure 91 mm[Hg] 91 mm[Hg] [place] ([facility]) Body height 71 [in_i] 71 [in_i] [place] ([facility]) Body mass index (BMI) [Ratio] 30.3 kg/m2 30.3 k g/m2 [place] ([facility]) Systolic blood pressure 154 mm[Hg] 154 mm[Hg] A [place] ([facility]) Systolic blood pressure 149 mm[Hg] 149 mm[Hg] A [place] ([facility]) Body weight 3472 [oz_av] 3472 [oz_av] [place] ([facility]) Diastolic blood pressure 76 mm[Hg] 76 mm[Hg] [place] ([facility]) Diastolic blood pressure 91 mm[Hg] 91 mm[Hg] [place] ([facility]) Body height 71 [in_i] 71 [in_i] [place] ([facility]) Body mass index (BMI) [Ratio] 30.3 kg/m2 30.3 k g/m2 [place] ([facility]) Systolic blood pressure 154 mm[Hg] 154 mm[Hg] A [place] ([facility]) Systolic blood pressure 149 mm[Hg] 149 mm[Hg] A [place] ([facility]) Body weight 3472 [oz_av] 3472 [oz_av] [place] ([facility]) Diastolic blood pressure 76 mm[Hg] 76 mm[Hg] [place] ([facility]) Diastolic blood pressure 91 mm[Hg] 91 mm[Hg] [place] ([facility]) Body height 71 [in_i] 71 [in_i] [place] ([facility]) Body mass index (BMI) [Ratio] 30.3 kg/m2 30.3 k g/m2 [place] ([facility]) Systolic blood pressure 154 mm[Hg] 154 mm[Hg] A [place] ([facility]) Systolic blood pressure 149 mm[Hg] 149 mm[Hg] A [place] ([facility]) Body weight 3472 [oz_av] 3472 [oz_av] [place] ([facility]) Diastolic blood pressure 89 mm[Hg] 89 mm[Hg] [place] ([facility]) Body height 71 [in_i] 71 [in_i] [place] ([facility]) Body mass index (BMI) [Ratio] 30.5 kg/m2 30.5 k g/m2 [place] ([facility]) Systolic blood pressure 146 mm[Hg] 146 mm[Hg] A [place] ([facility]) Body weight 3494.4 [oz_av] 3494.4 [oz_av] ATHEN A ([facility]) Diastolic blood pressure 89 mm[Hg] 89 mm[Hg] [place] ([facility]) Body height 71 [in_i] 71 [in_i] [place] ([facility]) Body mass index (BMI) [Ratio] 30.5 kg/m2 30.5 k g/m2 [place] ([facility]) Systolic blood pressure 146 mm[Hg] 146 mm[Hg] A [place] ([facility]) Body weight 3494.4 [oz_av] 3494.4 [oz_av] ATHEN A ([facility]) Diastolic blood pressure 89 mm[Hg] 89 mm[Hg] [place] ([facility]) Body height 71 [in_i] 71 [in_i] [place] ([facility]) Body mass index (BMI) [Ratio] 30.5 kg/m2 30.5 k g/m2 [place] ([facility]) Systolic blood pressure 146 mm[Hg] 146 mm[Hg] A [place] ([facility]) Body weight 3494.4 [oz_av] 3494.4 [oz_av] ATHEN A ([facility]) Diastolic blood pressure 89 mm[Hg] 89 mm[Hg] [place] ([facility]) Body height 71 [in_i] 71 [in_i] [place] ([facility]) Body mass index (BMI) [Ratio] 30.5 kg/m2 30.5 k g/m2 [place] ([facility]) Systolic blood pressure 146 mm[Hg] 146 mm[Hg] A [place] ([facility]) Body weight 3494.4 [oz_av] 3494.4 [oz_av] ATHEN A ([facility]) Diastolic blood pressure 89 mm[Hg] 89 mm[Hg] [place] ([facility]) Body height 71 [in_i] 71 [in_i] [place] ([facility]) Body mass index (BMI) [Ratio] 30.5 kg/m2 30.5 k g/m2 [place] ([facility]) Systolic blood pressure 146 mm[Hg] 146 mm[Hg] A [place] ([facility]) Body weight 3494.4 [oz_av] 3494.4 [oz_av] ATHEN A ([facility]) Body weight 225 [lb_av] 225 [lb_av] eCW1 ([facility]) Body height 71.5 [in_i] 71.5 [in_i] eCW1 ([facility]) Body mass index (BMI) [Ratio] 30.94 kg/m2 30.94 kg/m2 eCW1 ([facility]) Heart rate 90 /min 90 /min eCW1 ([facility]) Respiratory rate 18 /min 18 /min eCW1 ([facility]) Body temperature 96 [degF] 96 [degF] eCW1 ([facility]) Systolic blood pressure 138 mm[Hg] 138 mm[Hg] e CW1 ([facility]) Diastolic blood pressure 74 mm[Hg] 74 mm[Hg] eCW1 ([facility]) Body height 71 [in_i] 71 [in_i] [place] ([facility]) Diastolic blood pressure 87 mm[Hg] 87 mm[Hg] [place] ([facility]) Diastolic blood pressure 96 mm[Hg] 96 mm[Hg] [place] ([facility]) Body mass index (BMI) [Ratio] 31.3 kg/m2 31.3 k g/m2 [place] ([facility]) Systolic blood pressure 132 mm[Hg] 132 mm[Hg] [facility]) Systolic blood pressure 137 mm[Hg] 137 mm[Hg] A [facility] ([facility]) Body weight 3593.6 [oz_av] 3593.6 [oz_av] ATHEN A ([facility]) Diastolic blood pressure 87 mm[Hg] 87 mm[Hg] [place] ([facility]) Diastolic blood pressure 96 mm[Hg] 96 mm[Hg] [place] ([facility]) Body height 71 [in_i] 71 [in_i] [place] ([facility]) Body mass index (BMI) [Ratio] 31.3 kg/m2 31.3 k g/m2 [place] ([facility]) Systolic blood pressure 132 mm[Hg] 132 mm[Hg] A [place] ([facility]) Systolic blood pressure 137 mm[Hg] 137 mm[Hg] A [place] ([facility]) Body weight 3593.6 [oz_av] 3593.6 [oz_av] ATHEN A ([facility]) Diastolic blood pressure 87 mm[Hg] 87 mm[Hg] [place] ([facility]) Diastolic blood pressure 96 mm[Hg] 96 mm[Hg] [place] ([facility]) Body height 71 [in_i] 71 [in_i] [place] ([facility]) Body mass index (BMI) [Ratio] 31.3 kg/m2 31.3 k g/m2 [place] ([facility]) Systolic blood pressure 132 mm[Hg] 132 mm[Hg] A [place] ([facility]) Systolic blood pressure 137 mm[Hg] 137 mm[Hg] A [place] ([facility]) Body weight 3593.6 [oz_av] 3593.6 [oz_av] ATHEN A ([facility]) Diastolic blood pressure 87 mm[Hg] 87 mm[Hg] [place] ([facility]) Diastolic blood pressure 96 mm[Hg] 96 mm[Hg] [place] ([facility]) Body height 71 [in_i] 71 [in_i] [place] ([facility]) Body mass index (BMI) [Ratio] 31.3 kg/m2 31.3 k g/m2 [place] ([facility]) Systolic blood pressure 132 mm[Hg] 132 mm[Hg] A [facility] ([facility]) Systolic blood pressure 137 mm[Hg] 137 mm[Hg] A [facility] ([facility]) Body weight 3593.6 [oz_av] 3593.6 [oz_av] ATHEN A ([facility]) Diastolic blood pressure 87 mm[Hg] 87 mm[Hg] [place] ([facility]) Diastolic blood pressure 96 mm[Hg] 96 mm[Hg] [place] ([facility]) Body height 71 [in_i] 71 [in_i] [place] ([facility]) Body mass index (BMI) [Ratio] 31.3 kg/m2 31.3 k g/m2 [place] ([facility]) Systolic blood pressure 132 mm[Hg] 132 mm[Hg] A [place] ([facility]) Systolic blood pressure 137 mm[Hg] 137 mm[Hg] A [facility] ([facility]) Body weight 3593.6 [oz_av] 3593.6 [oz_av] ATHEN A ([facility]) Diastolic blood pressure 87 mm[Hg] 87 mm[Hg] [place] ([facility]) Diastolic blood pressure 96 mm[Hg] 96 mm[Hg] [place] ([facility]) Body height 71 [in_i] 71 [in_i] [place] ([facility]) Body mass index (BMI) [Ratio] 31.3 kg/m2 31.3 k g/m2 [place] ([facility]) Systolic blood pressure 132 mm[Hg] 132 mm[Hg] A [place] ([facility]) Systolic blood pressure 137 mm[Hg] 137 mm[Hg] A [place] ([facility]) Body weight 3593.6 [oz_av] 3593.6 [oz_av] IRLANDA A ([facility]) Systolic blood pressure 112 mm[Hg] 112 mm[Hg] [facility] Diastolic blood pressure 78 mm[Hg] 78 mm[Hg] [facility] Heart rate 74 /min 74 /min [facility] Body temperature 36.78 Nic 36.78 Nic [facility] Respiratory rate 18 /min 18 /min [facility] Oxygen saturation in Arterial blood by Pulse oximetry 96 % 96 % [facility] Body height 180.3 cm 180.3 cm [facility] Body weight 104.237 kg 104.237 kg [facility] Body mass index (BMI) [Ratio] 32.05 kg/m2 32.05 kg/m2 [facility] ID Date Data Source [id number] 05/08/2020 05:57:13 PM [facility] Name Value Range Interpretation Code Description Data Source(s) WEIGHT RECORDED 215 lb 215 lb [facility] Body height Measured 71 in 71 in [facility] ID Date Data Source [id number] 04/21/2020 02:08:24 PM [facility] Name Value Range Interpretation Code Description Data Source(s) TRANSFER FROM [facility] Patient Treatment Plan of Care Planned Activity Planned Date Details Description Data Source (s) 24 HR Nicotine 0.875 MG/HR Transdermal Patch 04/13/2020 12:00:00 AM [facility] pantoprazole 40 MG Delayed Release Oral Tablet 04/13/2020 12:00:00 AM [facility] Cholecalciferol 1000 UNT Oral Tablet 04/13/2020 12:00:00 AM [facility] Melatonin 5 MG Oral Tablet 04/12/2020 10:00:00 PM [facility] Baclofen 10 MG Oral Tablet 04/12/2020 12:00:00 AM [facility] Prednisone 50 MG Oral Tablet 04/12/2020 12:00:00 AM [facility] Prednisone 50 MG Oral Tablet 04/12/2020 12:00:00 AM [facility] Prednisone 20 MG Oral Tablet 04/12/2020 12:00:00 AM [facility] Nortriptyline 10 MG Oral Capsule 04/12/2020 12:00:00 AM [facility] Melatonin 5 MG Oral Tablet 04/12/2020 12:00:00 AM [facility] methylPREDNISolone (MEDROL, ROSALIO,) 4 MG tablet 01/06/2020 12:00:00 A M [facility] Oxycodone Hydrochloride 5 MG Oral Tablet 01/06/2020 12:00:00 AM [facility] Ondansetron 8 MG Disintegrating Oral Tablet [place] ([facility]) Naproxen 500 MG Oral Tablet [place] ([facility]) Magnesium Hydroxide 80 MG/ML Oral Suspension [place] ([facility]) methylprednisolone 4 mg tablets in a dos e pack TAKE BY MOUTH FOLLOWING PACKAGE INSTRUCTIONS [place] ([facility]) Methocarbamol 750 MG Oral Tablet [place] ([facility]) Methocarbamol 500 MG Oral Tablet [place] ([facility]) Ketorolac Tromethamine 10 MG Oral Tablet [place] ([facility]) gabapentin 100 MG Oral Capsule [place] ([facility]) Cyclobenzaprine hydrochloride 10 MG Oral Tablet [place] ([facility]) Baclofen 5 MG Oral Tablet AT [place] ([facility]) Azithromycin 250 MG Oral Tablet [place] ([facility]) albuterol sulfate HFA 90 mcg/actuation a erosol inhaler INHALE 4 PUFFS EVERY 4 TO 6 HOURS NEEDED FOR WHEEZING [place] ([facility]) 24 HR venlafaxine 37.5 MG Extended Release Oral Capsule [place] ([facility]) tramadol hydrochloride 50 MG Oral Tablet [place] ([facility]) 12 HR Oxycodone Hydrochloride 60 MG Extended Release Oral Ta blet [Oxycontin] [place] ([facility]) 12 HR Oxycodone Hydrochloride 30 MG Extended Release Oral Ta blet [Oxycontin] [place] ([facility]) Oxycodone Hydrochloride 5 MG Oral Tablet [place] ([facility]) Oxycodone Hydrochloride 10 MG Oral Tablet [place] ([facility]) oxycodone [place] ([facility]) Ondansetron 8 MG Disintegrating Oral Tablet [place] ([facility]) Naproxen 500 MG Oral Tablet [place] ([facility]) Magnesium Hydroxide 80 MG/ML Oral Suspension [place] ([facility]) methylprednisolone 4 mg tablets in a dos e pack TAKE BY MOUTH FOLLOWING PACKAGE INSTRUCTIONS [place] ([facility]) Methocarbamol 750 MG Oral Tablet [place] ([facility]) Methocarbamol 500 MG Oral Tablet [place] ([facility]) Ketorolac Tromethamine 10 MG Oral Tablet [place] ([facility]) gabapentin 100 MG Oral Capsule [place] ([facility]) Cyclobenzaprine hydrochloride 10 MG Oral Tablet [place] ([facility]) Baclofen 5 MG Oral Tablet AT [place] ([facility]) Azithromycin 250 MG Oral Tablet [place] ([facility]) albuterol sulfate HFA 90 mcg/actuation a erosol inhaler INHALE 4 PUFFS EVERY 4 TO 6 HOURS NEEDED FOR WHEEZING [place] ([facility]) 24 HR venlafaxine 37.5 MG Extended Release Oral Capsule [place] ([facility]) tramadol hydrochloride 50 MG Oral Tablet [place] ([facility]) 12 HR Oxycodone Hydrochloride 60 MG Extended Release Oral Ta blet [Oxycontin] [place] ([facility]) 12 HR Oxycodone Hydrochloride 30 MG Extended Release Oral Ta blet [Oxycontin] [place] ([facility]) Oxycodone Hydrochloride 5 MG Oral Tablet [place] ([facility]) Oxycodone Hydrochloride 10 MG Oral Tablet [place] ([facility]) oxycodone [place] ([facility]) Ondansetron 8 MG Disintegrating Oral Tablet [place] ([facility]) Naproxen 500 MG Oral Tablet [place] ([facility]) Magnesium Hydroxide 80 MG/ML Oral Suspension [place] ([facility]) methylprednisolone 4 mg tablets in a dos e pack TAKE BY MOUTH FOLLOWING PACKAGE INSTRUCTIONS [place] ([facility]) Methocarbamol 750 MG Oral Tablet [place] ([facility]) Methocarbamol 500 MG Oral Tablet [place] ([facility]) Ketorolac Tromethamine 10 MG Oral Tablet [place] ([facility]) gabapentin 100 MG Oral Capsule [place] ([facility]) Cyclobenzaprine hydrochloride 10 MG Oral Tablet [place] ([facility]) Baclofen 5 MG Oral Tablet AT [place] ([facility]) Azithromycin 250 MG Oral Tablet [place] ([facility]) albuterol sulfate HFA 90 mcg/actuation a erosol inhaler INHALE 4 PUFFS EVERY 4 TO 6 HOURS NEEDED FOR WHEEZING [place] ([facility]) Baclofen 5 MG Oral Tablet [facility] tramadol hydrochloride 50 MG Oral Tablet [place] ([facility]) Prednisone 50 MG Oral Tablet [place] ([facility]) 12 HR Oxycodone Hydrochloride 60 MG Extended Release Oral Ta blet [Oxycontin] [place] ([facility]) 12 HR Oxycodone Hydrochloride 30 MG Extended Release Oral Ta blet [Oxycontin] [place] ([facility]) Oxycodone Hydrochloride 5 MG Oral Tablet [place] ([facility]) Oxycodone Hydrochloride 10 MG Oral Tablet [place] ([facility]) oxycodone [place] ([facility]) Ondansetron 8 MG Disintegrating Oral Tablet [place] ([facility]) Naproxen 500 MG Oral Tablet [place] ([facility]) Magnesium Hydroxide 80 MG/ML Oral Suspension [place] ([facility]) methylprednisolone 4 mg tablets in a dos e pack TAKE BY MOUTH FOLLOWING PACKAGE INSTRUCTIONS [place] ([facility]) Methocarbamol 500 MG Oral Tablet [place] ([facility]) Ketorolac Tromethamine 10 MG Oral Tablet [place] ([facility]) gabapentin 100 MG Oral Capsule [place] ([facility]) Cyclobenzaprine hydrochloride 10 MG Oral Tablet [place] ([facility]) Azithromycin 250 MG Oral Tablet [place] ([facility]) albuterol sulfate HFA 90 mcg/actuation a erosol inhaler INHALE 4 PUFFS EVERY 4 TO 6 HOURS NEEDED FOR WHEEZING [place] ([facility]) Prednisone 50 MG Oral Tablet [place] ([facility]) 12 HR Oxycodone Hydrochloride 60 MG Extended Release Oral Ta blet [Oxycontin] MARJORIE ([facility]) 12 HR Oxycodone Hydrochloride 30 MG Extended Release Oral Ta blet [Oxycontin] MARJORIE ([facility]) Oxycodone Hydrochloride 10 MG Oral Tablet [facility] ([facility]) oxycodone [facility] ([facility]) Ondansetron 8 MG Disintegrating Oral Tablet MARJ[facility]IE ([facility]) Naproxen 500 MG Oral Tablet MARJ[facility]IE ([facility]) Magnesium Hydroxide 80 MG/ML Oral Suspension MAR[facility]IE ([facility]) Methocarbamol 500 MG Oral Tablet MAR[facility]IE ([facility]) Ketorolac Tromethamine 10 MG Oral Tablet MAR[facility]IE ([facility]) gabapentin 100 MG Oral Capsule MAR[facility]IE ([facility]) Cyclobenzaprine hydrochloride 10 MG Oral Tablet MAR[facility]IE ([facility]) Azithromycin 250 MG Oral Tablet MAR[facility]IE ([facility]) vitamin d3 25 mcg (1000 ut) tabs MARJORIE ([facility]) 24 HR venlafaxine 37.5 MG Extended Release Oral Capsule MARJ[facility]IE ([facility]) tramadol hydrochloride 50 MG Oral Tablet MARJ[facility]IE ([facility]) Docusate Sodium 50 MG / sennosides, MCC 8.6 MG Oral Tablet MARJORIE ([facility]) Prednisone 50 MG Oral Tablet MARJORIE ([facility]) pantoprazole 40 MG Delayed Release Oral Tablet MARJORIE ([facility]) 12 HR Oxycodone Hydrochloride 60 MG Extended Release Oral Ta blet [Oxycontin] MARJORIE ([facility]) 12 HR Oxycodone Hydrochloride 30 MG Extended Release Oral Ta blet [Oxycontin] MARJORIE ([facility]) Oxycodone Hydrochloride 5 MG Oral Tablet MAR[facility]IE ([facility]) Oxycodone Hydrochloride 10 MG Oral Tablet MAR[facility]IE ([facility]) oxycodone [facility] ([facility]) Ondansetron 4 MG Oral Tablet MAR[facility]IE ([facility]) Ondansetron 8 MG Disintegrating Oral Tablet MAR[facility]IE ([facility]) Nortriptyline 50 MG Oral Capsule MARJORIE ([facility]) Nortriptyline 25 MG Oral Capsule MAR[facility]IE ([facility]) Nortriptyline 10 MG Oral Capsule MAR[facility]IE ([facility]) 24 HR Nicotine 0.875 MG/HR Transdermal Patch MAR[facility]IE ([facility]) Naproxen 500 MG Oral Tablet MAR[facility]IE ([facility]) Magnesium Hydroxide 80 MG/ML Oral Suspension MAR[facility]IE ([facility]) methylprednisolone 4 mg tablets in a dos e pack TAKE BY MOUTH FOLLOWING PACKAGE INSTRUCTIONS [facility] ([facility]) Methocarbamol 750 MG Oral Tablet MAR[facility]IE ([facility]) Methocarbamol 500 MG Oral Tablet [facility] ([facility]) Melatonin 5 MG Oral Tablet [facility] ([facility]) Ketorolac Tromethamine 10 MG Oral Tablet MARJORIE ([facility]) Haloperidol 2 MG Oral Tablet MARJORIE ([facility]) gabapentin 100 MG Oral Capsule MAR[facility]IE ([facility]) Docusate Sodium 100 MG Oral Capsule [DOK] MARJORIE ([facility]) Cyclobenzaprine hydrochloride 10 MG Oral Tablet MAR[facility]IE ([facility]) Clonazepam 0.5 MG Oral Tablet MAR[facility]IE ([facility]) Cholecalciferol 1000 UNT Oral Capsule MARJORIE ([facility]) Baclofen 5 MG Oral Tablet AT [facility] ([facility]) Baclofen 10 MG Oral Tablet A THEN ([facility]) Azithromycin 250 MG Oral Tablet MARJORIE ([facility]) Amlodipine 10 MG Oral Tablet MAR[facility]IE ([facility]) albuterol sulfate HFA 90 mcg/actuation a erosol inhaler INHALE 4 PUFFS EVERY 4 TO 6 HOURS NEEDED FOR WHEEZING MARJORIE ([facility]) Acetaminophen 500 MG Oral Tablet MARJORIE ([facility]) tramadol hydrochloride 50 MG Oral Tablet [facility]IE ([facility]) 12 HR Oxycodone Hydrochloride 60 MG Extended Release Oral Ta blet [Oxycontin] MARJORIE ([facility]) 12 HR Oxycodone Hydrochloride 30 MG Extended Release Oral Ta blet [Oxycontin] MARJORIE ([facility]) Oxycodone Hydrochloride 5 MG Oral Tablet MARJORIE ([facility]) Oxycodone Hydrochloride 10 MG Oral Tablet [facility]IE ([facility]) oxycodone [facility] ([facility])
[2020-12-19] MEDS ORDERED: HYDR50CA2 (17:51)
[2020-12-19 18:13] LABS: HEMOGLOBIN 17.8 g/dl (13.5-17.5); MEAN CORPUSCULAR HEMOGLOBIN 30.4 pg (27.0-33.0); MEAN CORPUSCULAR HGB CONC 34.9 g/dl (32.0-36.5); MEAN CORPUSCULAR VOLUME 87.2 fl (80.0-96.0); PLATELET COUNT, AUTOMATED 466 10^3/uL (150-450); RED BLOOD COUNT 5.85 10^6/uL (4.30-6.10); WHITE BLOOD COUNT 11.6 10^3/uL (4.0-10.0)
[2020-12-19 18:58] LABS: ACETAMINOPHEN LEVEL < 2.0 UG/ML (10.0-30.0); ALBUMIN 4.4 GM/DL (3.2-5.2); ALT/SGPT 24 U/L (12-78); BILIRUBIN,DIRECT 0.2 MG/DL (0.0-0.2); BILIRUBIN,TOTAL 0.5 MG/DL (0.2-1.0); BLOOD UREA NITROGEN 12 MG/DL (7-18); CALCIUM LEVEL 9.7 MG/DL (8.5-10.1); CARBON DIOXIDE LEVEL 22 MEQ/L (21-32); CHLORIDE LEVEL 105 MEQ/L (98-107); CREATININE FOR GFR 1.06 MG/DL (0.70-1.30); ETHYL ALCOHOL (ETHANOL) < 0.003 % (0.000-0.010); GLOMERULAR FILTRATION RATE > 60.0 (>60); GLUCOSE, FASTING 104 MG/DL (70-100); POTASSIUM SERUM 4.3 MEQ/L (3.5-5.1); SALICYLATE LEVEL 3.7 MG/DL (5.0-30.0); SODIUM LEVEL 138 MEQ/L (136-145); TOTAL PROTEIN 8.1 GM/DL (6.4-8.2)
--- OUTSIDE RECORDS SUMMARY | 2020-12-19 19:22 | CCD ---
Author Author [facility] Organization [facility] Address Unknown Phone Unavailable Care Team Providers Care Clay Modeler Name Role Phone Alicia Martin MD Unavailable [...] Unavailable Unavailable Alicia Martin MD Unavailable Unavailable Aliica Martin MD Unavailable Unavailable Alicia Martin MD [...] JOHNSON, ANTONI MARIBEL RPA-C Unavailable Unavailable JOHNSON, ATNONI MARIBEL RPA-C Unavailable Unavailable JOHNSON, ANTONI MARIBEL [...] Unavailable Maryann RICHARD MD Unavailable Unavailable HILARY, Marynan WELLS MD Unavailable Unavailable HILARY, Maryann WELLS MD Unavailable Unavailable HILARY, Maryann WELLS MD Unavailable Unavailable HIALRY, Maryann WELLS MD Unavailable Unavailable HILARY, Maryann [...] Unavailable HILARY, Maryann WELLS MD Unavailable Unavailable HILAYR, Maryann WELLS MD Unavailable Unavailable HILARY, Maryann [...] Maryann WELLS MD Unavailable Unavailable HILARY, Maryann EWLLS MD Unavailable Unavailable HILARY, Maryann WELLS MD Unavailable Unavailable HILARY, Maryann WELLS MD Unavailable Unavailable HILARY, Maryann WELLS MD Unavailable Unavailable HILARY, Maryann WELLS MD Unavailable Unavailable HILRAY, Maryann WELLS MD Unavailable Unavailable HILARY, Maryann [...] Unavailable Unavailable Maryann GRIGGS MD Unavailable Unavailable Mrayann GRIGGS MD Unavailable Unavailable Maryann GRIGGS MD [...] CAITLIN Unavailable Unavailable PANG, CAITLIN Unavailable Unavailable [place], Elle SOC ANALYST Unavailable Unavailable Nicole, Elle SOC ANALYST Unavailable Unavailable [place], Elle SOC ANALYST Unavailable Unavailable [place], Elle SOC ANALYST Unavailable Unavailable [place], Elle SOC ANALYST Unavailable Unavailable Nicole, Elle SOC ANALYST Unavailable Unavailable [place], Elle SOC ANALYST Unavailable Unavailable [place], Elle SOC ANALYST Unavailable Unavailable [place], Elle SOC ANALYST Unavailable Unavailable [place], Elle SOC ANALYST Unavailable Unavailable [place], Elle SOC ANALYST Unavailable Unavailable Nicole, Elle SOC ANALYST Unavailable Unavailable Nicole, Elle SOC ANALYST Unavailable Unavailable [place], Elle SOC ANALYST Unavailable Unavailable [place], Elle SOC ANALYST Unavailable Unavailable [place], Elle SOC ANALYST Unavailable Unavailable [place], Elle SOC ANALYST Unavailable Unavailable Nicole, Elle SOC ANALYST Unavailable Unavailable [place], Elle SOC ANALYST Unavailable Unavailable [place], Elle SOC ANALYST Unavailable Unavailable [place], Elle SOC ANALYST Unavailable Unavailable Nicole, Elle SOC ANALYST Unavailable Unavailable [place], Elle SOC ANALYST Unavailable Unavailable [place], Elle SOC ANALYST Unavailable Unavailable [place], Elle SOC ANALYST Unavailable Unavailable [place], Elle SOC ANALYST Unavailable Unavailable Nicole, Elle SOC ANALYST Unavailable Unavailable [place], Elle SOC ANALYST Unavailable Unavailable [place], Elle SOC ANALYST Unavailable Unavailable [place], Elle SOC ANALYST Unavailable Unavailable [place], Elle SOC ANALYST Unavailable Unavailable Nicole, Elle SOC ANALYST Unavailable Unavailable Nicole, Elle SOC ANALYST Unavailable Unavailable Nicole, Elle SOC ANALYST Unavailable Unavailable [place], Elle SOC ANALYST Unavailable Unavailable Julieta VALLE MD Unavailable Unavailable [...] Unavailable Unavailable Maryann GRIGGS MD Unavailable Unavailable Mrayann GRIGGS MD Unavailable Unavailable Maryann GRIGGS MD Unavailable Unavailable Maryann GRIGGS MD Unavailable Unavailable Maryann GRIGGS MD Unavailable Unavailable Maryann GRIGGS MD Unavailable Unavailable Maryann GRIGGS MD Unavailable Unavailable Maryann GRIGGS MD Unavailable Unavailable Maryann GRIGGS MD Unavailable Unavailable Maryann GRIGGS MD Unavailable Unavailable Maryann GRIGGS MD Unavailable Unavailable Maryann GRIGGS MD Unavailable [facility]available [facility] [place] Unavailable Unavailable NICOLAS AN Unavailable Unavailable JOHNSON, [...] Unavailable JOHNOSN, ANTONI MARIBEL RPA-C Unavailable Unavailable JOHNSON, ANTONI [...] Unavailable JOHNSON, ANTONI MARIBEL RPA-C Unavailable Unavailable ELKE VEGAS [...] Unavailable Maryann ZAMORANO MD Unavailable Unavailable Maryann ZAOMRANO MD Unavailable Unavailable Maryann ZAMORANO MD Unavailable [...] Unavailable Alicia Martin MD Unavailable Unavailable Alicia Maritn MD Unavailable Unavailable Alicia Martin MD Unavailable [...] Unavailable Unavailable Alicia Martin MD Unavailable Unavailable lAicia Martin MD Unavailable Unavailable Alicia Martin MD [...] Zaki PA Unavailable Unavailable VanArnam JR, W Zkai PA Unavailable Unavailable VanArnam JR, W Zaki [...] is protected by Article 27-F of the [facility] Public Health law. If you continue you may have access to information: Regarding HIV / AIDS; Provided by facilities licensed or operated by the [facility] Office of Mental Health; or Provided by the [facility] Office for People With Developmental Disabilities. If such information is present, then the following [facility] mandated warning applies: This information has [...] law may result in a fine or usp sentence or both. A general authorization for the release of medical or other information is NOT sufficient authorization for further disc losure. Allergies and Adverse Reactions Type Description Substance Reaction Status Data Source(s ) Propensity to adverse reactions METHYLPREDNISOLONE METHYLPREDNISOLONE Other [facility] Drug allergy TORADOL TORADOL RASH; SWELLING [facility] allergy GABAPENTIN GABAPENTIN [facility] Propensity to adverse reactions NO KNOWN ALLERGIES NO KNOWN ALLERGIES [facility] Propensity to adverse reactions K[facility]OLAC [facility] to adverse reactions GABAPENTIN GABAPENTIN [facility] Family History Family Member Name Family Member Gender Family Member Status Date o f Status Description Data Source(s) Unknown [facility] Problem [facility] Encounters Encounter Providers Location Date Indications Data Source(s ) Outpatient Attender: Elle LOPEZ 10/21/2020 12:00: 00 AM [facility] Outpatient Attender: Elle Rivera SOC ANALYST 10/18/2020 12:00: 00 AM [facility] Outpatient Attender: Elle Rivera SOC ANALYST [id number] 12:00:00 AM EDT - 07[facility]21[facility] Elleroman CARRASCOPAttender: Juan miranda MD 07/16/2020 12:00:00 AM [facility] Maribel Johnson, RPA-C: [address], [place] [address], Ph. Attender: MARIBEL JOHNSON RPA-C [facility] Medical 07/08/2020 12:00:00 AM EDT MARJORIE ([facility]) Outpatient Attender: Juan Day MD 07/02/2020 12:00:00 A M [facility] Mario Martin MD: [address], [place] [address], Ph. Attender: Mario Martin MD [facility] Medical 06/16/2020 12:00:00 AM EDT TOWANDA ([facility]) Mario Martin MD: [address], [place] [address], Ph. Attender: Mario Martin MD [facility] Medical 06/16/2020 12:00:00 AM EDT MARJORIE ([facility]) Outpatient Attender: Juan SCHREIBEReferrer: Mario Vargas 05/31/2020 12:00:00 AM [facility] Outpatient Attender: ELKE VEGAS MD 05/26/2020 12:0 0:00 AM [facility] Outpatient Attender: Juan Day MD [id number] 2020 12:00:00 AM EDT - 04/28/2020 05:19:40 PM EDT Spinal stenosis, site unspecified [facility] Spinal stenosis, site unspecified Emergency Attender: CHAPITO LOVEConsultant: MARIBEL JOHNSON RPA-C 04/19/2020 08:39:00 PM EDT - 04/19/2020 11:30:00 PM EDT [facility] Patient discharged. Outpatient Attender: CAITLIN Monteiroultant: MARIBEL JOHNSON RPA-C 04/16/2020 02:27:00 PM EST - 04/16/2020 03:27:00 PM EST [facility] Caitlin Pang RPA-C: [address], [place] [address], Ph. Attender: CAITLIN PANG [facility] Medical 04/16/2020 12:00:00 AM EST MARJORIE ([facility]) Caitlin Pang RPA-C: [address], [place] [address], Ph. Attender: CAITLIN PANG [facility] Medical 04/16/2020 12:00:00 AM EST MARJORIE ([facility]) Caitlin Pang RPA-C: [address], [place] [address], Ph. Attender: CAITLIN PANG [facility] Medical 04/16/2020 12:00:00 AM EST MARJORIE ([facility]) Caitlin Pang RPA-C: [address], [place] [address], Ph. Attender: CAITLIN PANG [facility] Medical 04/16/2020 12:00:00 AM EST MARJORIE ([facility]) Outpatient Attender: [facility] 04/09/2020 12:3 5:00 PM EST [facility] Emergency Attender: YOAV VARGAS MDConsultant: DIYAJordan JOHNSON RPA-C 04/09/2020 11:42:00 AM EST - 04/09/2020 03:55:00 PM EST [facility] Patient discharged. Inpatient Attender: Juan Day MDAtt vinnie: KARIME DUFFY MDAdmitter: KARIME DUFFY MDReferrer: KARIME DUFFY MD [id number] 04/09/2020 12:00: 00 AM EST - 04/12/2020 12:00:00 AM EST Cerebral infarction, unspecified [facility] Cerebral infarction, unspecified Patient discharged. Caitlin Pang RPA-C: [address], [place] [address], Ph. Attender: CAITLIN PANG [facility] Medical 03/31/2020 12:00:00 AM EST MARJORIE ([facility]) OSCAR SuarezC: [address], [place] [address], Ph. Attender: CAITLIN PANG [facility] Medical 03/31/2020 12:00:00 AM EST MARJORIE ([facility]) Caitlin Pang RPA-C: [address], [place] [address], Ph. Attender: CAITLIN PANG [facility] Medical 03/31/2020 12:00:00 AM EST MAR[place]ORIE ([facility]) Caitlin Pang RPA-C: [address], [place] [address], Ph. Attender: CAITLIN PANG [facility] Medical 03/31/2020 12:00:00 AM EST MAR[place]ORIE ([facility]) Caitlin Pang RPA-C: [address], [place] [address], Ph. Attender: CAITLIN PANG [facility] Medical 03/31/2020 12:00:00 AM EST MAR[place]ORIE ([facility]) Emergency Attender: CHAPITO Avalossultant: MARIBEL JOHNSON RPA-C 03/29/2020 11:40:00 AM EST - 03/29/2020 02:45:00 PM EST [facility] Patient discharged. [place]patient [id number] [address] 02/17/2020 12:00:00 AM EST eCW1 ([facility]) Recurring Patient Referrer: MARIBEL JOHNSON RPA-C 01/16/2020 1 2:45:26 PM EST [facility] Maribel Johnson RPA-C: [address], [place] [address], Ph. Attender: MARIBEL MOOREC [facility] Medical 01/09/2020 12:00:00 AM EST MARJORIE ([facility]) Maribel Johnson RPA-C: [address], [place] [address], Ph. Attender: MARIBEL MOOREC [facility] Medical 01/09/2020 12:00:00 AM EST MAR[place]ORIE ([facility]) Maribel Johnsno RPA-C: [address], [place] [address], Ph. Attender: MARIBEL JOHNSON RPA-C [facility] Medical 01/09/2020 12:00:00 AM EST MAR[place]ORIE ([facility]) Maribel Johnson RPA-C: [address], [place] [address], Ph. Attender: MARIBEL JOHNSON RPA-C [facility] Medical 01/09/2020 12:00:00 AM EST MAR[place]IE ([facility]) Maribel Johnson RPA-C: [address], [place] [address], Ph. Attender: MARIBEL JOHNSON RPA-C [facility] Medical 01/09/2020 12:00:00 AM EST MAR[place]IE ([facility]) Maribel Johnson RPA-C: [address], [place] [address], Ph. Attender: MARIBEL JOHNSON RPA-C [facility] Medical 01/09/2020 12:00:00 AM EST MAR[place]ORIE ([facility]) Outpatient Attender: SUSAN ZAMORANO MDAt tender: REJI GRIGGS MDAttender: ANIL BASSETTCAttender: DAREN RICHARD MDAttender: NICOLAS SANZttender: NICOLAS AN MDAdmitter: REJI GRIGGS MDReferrer: NICOLAS AN MDConsultant: ANIL BASSETTCConsultant: DAREN RICHARD MD [id number] 01/04/2020 09:17:00 PM EST - 01/06/2020 05:22:[address] [facility] Patient discharged. Emergency Attender: ALMAZ VALLE MDConsultant: MARIBEL JOHNSON RPA-C 01/04/2020 04:23:00 PM EST - 01/04/2020 07:47:00 PM [facility] Patient discharged. Outpatient Attender: MARIBEL MOOREC [facility] 11/17/2019 04:40:02 PM EDT [facility] Outpatient Attender: MARIBEL MOROEC [facility] 11/17/2019 04:40:02 PM EDT [facility] Outpatient Attender: MARIBEL MOOREC [facility] 11/14/2019 03:45:03 PM EDT [facility] Outpatient Attender: REJI SCHREIBEReferrer: MARIBEL TINOCO RPA-C 11/12/2019 01:02:29 PM EDT [facility] Outpatient Attender: MARIBEL JOHNSON RPA-C [facility] 11/10/2019 11:51:02 AM EDT [facility] Outpatient Attender: MARIBEL ALEX RPA-C [facility] 11/05/2019 09:02:03 AM EDT [facility] Recurring Patient Referrer: MARIBEL JOHNSON RPA-C 10/22/2019 0 8:59:55 AM EDT [facility] Recurring Patient Referrer: MARIBEL JOHNSON RPA-C 10/22/2019 0 8:59:06 AM EDT [facility] Outpatient Attender: MARIBEL JOHNSON RPA-C [facility] 10/21/2019 03:59:01 PM EDT [facility] Outpatient Attender: Zaki Saravia JRReferrer: MARIBEL Mendoza RPA-C 07/31/2019 04:25:16 PM EDT [facility] Immunizations Vaccine Date Status Description Data Source(s) New in 2011. IIV4 01/09/2020 08:55:24 AM EST completed .5 mL [facility]ORIE ([facility]) New in 2011. IIV4 01/09/2020 08:55:24 AM EST completed .5 mL MARJORIE ([facility]) New in 2011. IIV4 01/09/2020 08:55:24 AM EST completed .5 mL MAR[facility]ORIE ([facility]) New in 2011. IIV4 01/09/2020 08:55:24 AM EST completed .5 mL [facility]ORIE ([facility]) New in 2011. IIV4 01/09/2020 08:55:24 AM EST completed .5 mL MAR[facility]ORIE ([facility]) New in 2011. IIV4 01/09/2020 08:55:24 AM EST completed .5 mL MAR[facility]ORIE ([facility]) Medications Medication Brand Name Start Date [...] Place 1 patch onto the skin daily [facility] pantoprazole 40 MG Delayed Release Oral Tablet Pantoprazole Sodium 40 MG Oral Tablet Delayed Release (PROTONIX) Pantoprazole Sodium 40 MG Oral Tablet De layed Release (PROTONIX) 04/13/2020 12:00:00 AM EST 40 mg Oral active Take 1 tablet by mouth daily [facility] Cholecalciferol 1000 UNT Oral Tablet Vit leal D3 25 MCG (1000 UT) Oral Tablet (CHOLECALCIFEROL) Vitamin D3 25 MCG (1000 UT) Oral Tablet (CHOLECALCIFER OL) 04/13/2020 12:00:00 AM EST 1000 U Oral active Take 1 tablet by mouth daily [facility] Melatonin 5 MG Oral Tablet melatonin tablet 5 mg melatonin t ablet 5 mg 04/12/2020 10:00:00 PM EST 5 mg Oral active 5 mg, Oral, Nightly, First dose on Sun04/12/20 at 2200, For 30 days [facility] Medication administered onsite Nortriptyline 10 MG Oral Capsule nortriptyline (PAMELO R) capsule 10 mg nortriptyline (PAMELOR) capsule 10 mg 04/12/2020 10:30:00 AM EST 10 m g Oral active 10 mg, Oral, Nightly, First dose on Sun04/12/20 at 1030, For 30 days [facility] Medication administered onsite Cholecalciferol 1000 UNT Oral Tablet vit leal D3 (CHOLECALCIFEROL) tablet 1,000 Units vitamin D3 (CHOLECALCIFEROL) tablet 1,000 Units 2020 10:15:00 AM EST 1000 U Oral active 1,000 Un its, Oral, Daily Standard, First dose on Sun04/12/20 at 1015, For 30 days
25 mcg vitamin D3 = 1,000 international units vitamin D3.
[facility] Medication administered onsite Baclofen 10 MG Oral Tablet baclofen (LIORESAL) tablet 10 mg baclofen (LIORESAL) tablet 10 mg 04/12/2020 10:15:00 AM EST 10 mg Oral activ e 10 mg, Oral, Three Times Daily Standard, First dose on Sun04/12/20 at 1015, For 30 days [facility] Medication administered onsite Prednisone 20 MG Oral Tablet predniSONE 20 MG Oral Tab let (DELTASONE) predniSONE 20 MG Oral Tablet (DELTASONE) 04/12/2020 12:00:00 AM EST 600 mg Ora l aborted Take 30 tablets by mouth Two Jim es Daily for 2 days [facility] Melatonin 5 MG Oral Tablet Melatonin 5 MG Oral Tablet 2020 12:00:00 AM EST 5 mg Oral active Take 1 tablet by mouth nightly [facility] Nortriptyline 10 MG Oral Capsule Nortriptyline HCl 10 MG Oral Capsule (PAMELOR) Nortriptyline HCl 10 MG Oral Capsule (PAMELOR) 04/12/2020 12:00:00 AM EST 10 mg Oral active Take 1 capsule by mouth nightly [facility] Baclofen 10 MG Oral Tablet Baclofen 10 MG Oral Tablet (LIORESAL) Baclofen 10 MG Oral Tablet (LIORESAL) 04/12/2020 12:00:00 AM EST 10 mg Oral active Take 1 tablet by mouth Three times daily [facility] Prednisone 50 MG Oral Tablet predniSONE 50 MG Oral Tab let (DELTASONE) predniSONE 50 MG Oral Tablet (DELTASONE) 04/12/2020 12:00:00 AM EST 600 mg Ora l active Take 12 tablets by mouth Two Jim es Daily for 2 days [facility] Prednisone 50 MG Oral Tablet predniSONE 50 MG Oral Tab let (DELTASONE) predniSONE 50 MG Oral Tablet (DELTASONE) 04/12/2020 12:00:00 AM EST 600 mg Ora l aborted Take 12 tablets by mouth Two Jim es Daily for 2 days [facility] Acetaminophen 325 MG / Hydrocodone Steve trate 5 MG Oral Tablet HYDROcodone- acetaminophen (LORTAB) 5-325 MG per tablet 1 tablet HYDROcodone-acetaminophen (LORTAB) 5-325 MG per tablet 1 tablet 04/11/2020 10:30:00 PM EST 1 {tbl} Oral completed 1 tablet, Oral, Once, 04/11/20 at 2230, For 1 dose
Maximum daily dose of acetaminophen is 3,000 mg from all sources in 24 hours.
[facility] Medication administered onsite fentaNYL (SUBLIMAZE) (PF) injection 25 mcg 9261-0551-04 04/11/2020 04:30:00 PM EST 25 ug Intravenous completed 25 mcg, Intravenous, Once, 04/11/20 at 1630, For 1 dose [facility] Medication administered onsite 24 HR Nicotine 0.875 MG/HR Transdermal P atch nicotine (NICODERM CQ) 21 MG/24HR 1 patch nicotine (NICODERM CQ) 21 MG/24HR 1 patch 04/11/2020 11:15:00 AM EST 1 {patch} Transdermal active 1 patch, Transdermal, Administer over 24 Hours, Daily Standard, First dose on 04/11/20 at 1115, For 30 days [facility] Medication administered onsite Alprazolam 0.25 MG Oral Tablet alprazolam (XANAX) tabl et 0.5 mg alprazolam (XANAX) tablet 0.5 mg 04/11/2020 11:15:00 AM EST 0.5 mg Oral active 0.5 mg, Oral, Three Times Daily-PRN, Anxiety, Starting 04/11/20 at 1115, For 48 hours [facility] Medication administered onsite pantoprazole 40 MG Delayed Release Oral Tablet pantoprazole (PROTONIX) EC tablet 40 mg pantoprazole (PROTONIX) EC tablet 40 mg 04/11/2020 09:00:[address] 40 mg Oral active 40 mg, Ora l, Daily Standard, First dose on 04/11/20 at 0900, For 30 days
Do not crush or chew
[facility] Medication administered onsite Melatonin 5 MG Oral Tablet melatonin tablet 5 mg melatonin t ablet 5 mg 04/10/2020 07:30:00 PM EST 5 mg Oral completed 5 mg, Oral, Once, 04/10/20 at 1930, For 1 dose [facility] Medication administered onsite Acetaminophen 325 MG / [...] mg from all sources in 24 hours.
[facility] Medication administered onsite methylPREDNISolone sodium succinate (DAVID U-MEDROL) 1,000 mg in sodium chloride 0.9 % 100 mL IVPB 04/10/2020 03:30:00 PM EST 1000 mg Intravenous active 1,000 mg, Intravenous, at 10 0 mL/hr, Daily Standard, First dose on 04/10/20 at 1530, For 5 days [facility] Medication administered onsite gadobutrol (GADAVIST) contrast injection 9 mL [id number] 01:15:00 PM EST 0.1 mL/kg Intravenous completed 9 mL (ro unded from 9.43 mL = 0.1 mL/kg 94.3 kg Order-specific weight), Intravenous, 1 TIME IMAGING, 04/10/20 at 1315, For 1 dose
Do not mix or administer in the same IV line with other medi cations.
[facility] Medication administered onsite atorvastatin 40 MG Oral Tablet atorvastatin (LIPITOR) tablet 80 mg atorvastatin (LIPITOR) tablet 80 mg 04/10/2020 09:00:00 AM EST 80 mg Oral aborted 80 mg, Oral, Daily Standard, First dose on 04/10/20 at 0900, For 30 days [facility] Medication administered onsite 0.4 ML Enoxaparin sodium [...] 10-12 hours prior to removing epidural catheter.
[facility] Medication administered onsite lidocaine (LIDODERM) 5 % patch 1 patch [id number] 09:00:00 AM EST 1 {patch} Transdermal active 1 patch, T ransdermal, Daily Standard, First dose on 04/10/20 at 0900, For 30 days
Apply to area of pain per patient request 12 hours on - 12 hours off
[facility] Medication administered onsite clopidogrel 75 MG Oral Tablet clopidogrel (PLAVIX) tab let 75 mg clopidogrel (PLAVIX) tablet 75 mg 04/10/2020 09:00:00 AM EST 75 mg Oral aborted 75 mg, Oral, Daily Standard, First dose on 04/10/20 at 0900, For 30 days [facility] Medication administered onsite Lisinopril 10 MG Oral Tablet lisinopril (ZESTRIL) tabl et 10 mg lisinopril (ZESTRIL) tablet 10 mg 04/10/2020 09:00:00 AM EST 10 mg Oral active 10 mg, Oral, Daily Standard, First dose on 04/10/20 at 0900, For 30 days
Check vital signs before administering
[facility] Medication administered onsite Alprazolam 0.25 MG Oral Tablet alprazolam (XANAX) tabl et 0.25 mg alprazolam (XANAX) tablet 0.25 mg 04/10/2020 08:52:50 AM EST 0.25 mg Oral aborted 0.25 mg, Oral, Daily PRN, Anxiety, Starting 04/10/20 at 0852, For 120 hours [facility] Medication administered onsite Acetaminophen 325 MG / [...] mg from all sources in 24 hours.
[facility] Medication administered onsite 24 HR venlafaxine 37.5 MG Extended Relea se Oral Capsule venlafaxine (EFFEXOR-XR) 24 hr capsule 37.5 mg venlafaxine (EFFEXOR-XR) 24 hr capsule 37.5 mg 08:00:00 AM EST 37.5 mg Oral active 37.5 mg, Oral, Daily with Breakfast, First dose on 04/10/20 at 0800, For 30 days
Do not crush or chew
[facility] Medication administered onsite Methocarbamol 500 MG Oral Tablet methocarbamol (ROBAXI N) tablet 750 mg methocarbamol (ROBAXIN) tablet 750 mg 04/09/2020 09:15:00 PM EST 75 0 mg Oral aborted 750 mg, Oral, 2 Times Daily, First dose (after last reorder) on Sun04/09/20 at 2115, For 30 days [facility] Medication administered onsite 1 ML Lorazepam 2 MG/ML Injection LORazepam (ATIVAN) in jection 1 mg LORazepam (ATIVAN) injection 1 mg 04/09/2020 09:02:54 PM EST 1 mg Intraveno us aborted 1 mg, Intravenous, O nce PRN, Other, prior to MRI for claustrophobia, Starting Sun04/09/20 at 2102, For 2 days [facility] Medication administered onsite Cyclobenzaprine hydrochloride 10 MG Oral Tablet cyclobenzaprine (FLEXERIL) tablet 10 mg cyclobenzaprine (FLEXERIL) tablet 10 mg 04/09/2020 09:00:00 PM EST 10 mg Oral aborted 10 mg, Oral, 2 T imes Daily, First dose on Sun04/09/20 at 2100, For 30 days [facility] Medication administered onsite Acetaminophen 325 MG Oral [...] mg from all sources in 24 hours.
[facility] Medication administered onsite 37.5 mg 03/30/2020 12:00:00 [...] 1 dose
Post-op day #2 Hold for
[facility] Medication administered onsite 4 mg 01/07/2020 12:00:00 AM EST tablets,dose pack 21 TAKE BY MOUTH FOLLOWING PACKAGE INSTRUCTIONS TAKE BY MOUTH FOLLOWING PACKAGE INSTRUCTIONS SOLD: 01/15/2020 [facility] POLYETHYLENE GLYCOL 3350 142 MG/ML Oral Solution polyethylene glycol (GLYCOLAX) packet 17 g polyethylene glycol (GLYCOLAX) packet 17 g 01/06/2020 09:00:00 AM EST 17 g Oral active 17 g, Or al, Daily, First dose on Sun01/06/20 at 0900, Post-op
Start POD #1
[facility] Medication administered onsite Oxycodone Hydrochloride 5 MG Oral Tablet oxyCODONE (ROXICODONE) 5 MG immediate release tablet oxyCODONE (ROXICODONE) 5 MG immediate release tablet 1 03/08/2019 12:00:00 AM EST 2.5 mg Oral active Take 0.5 tablets (2.5 mg total) by mouth every 6 (six) hours as needed Max Daily Amount: 10 mg [facility] methylPREDNISolone (MEDROL, ROSALIO,) 4 MG tablet [id number] 01/06/2020 12:00:00 AM EST 4 mg Oral active Take 1 t ablet (4 mg total) by mouth daily follow package directions [facility] Bisacodyl 10 MG Rectal Suppository bisacodyl (DULCOLAX ) suppository 10 mg bisacodyl (DULCOLAX) suppository 10 mg 01/06/2020 12:00:00 AM EST 10 mg Rectal active 10 mg, Rectal, Daily PRN, constipation, for constipation unrelieved by miralax/MOM, Starting Sun01/06/20 at 0000, For 4 days, Post- op
For post-op day #1, #3, and #4 Hold for BM
[facility] Medication administered onsite Magnesium Hydroxide 80 MG/ML Oral Suspen maxim magnesium hydroxide (MILK OF MAGNESIA) 400 MG/5ML suspension 30 mL magnesium hydroxide (MILK OF MAGNESIA) 4 00 MG/5ML suspension 30 mL 01/06/2020 12:00:00 AM EST 30 mL Oral active 30 mL, Oral, Daily PRN, constipation, Starting Sun01/06/20 at 0000, Post- op
Start Post-op day #1. Hold for BM
[facility] Medication administered onsite 5 mg 01/06/2020 12:00:00 AM EST tablet 15 TAKE 1/2 TABLET (2.5MG) BY MOUTH EVERY 6 HOURS NEEDED - MAXIMUM DAILY DOSE = 2 TABLETS TAKE 1/2 TABLET (2.5MG) BY MOUTH EVERY 6 HOURS NEEDED - MAXIMUM DAILY DOSE = 2 TABLETS SOLD: 01/06/2020 [email or web address] 1 ML Lorazepam 2 MG/ML Injection LORazepam (ATIVAN) in jection 0.5 mg LORazepam (ATIVAN) injection 0.5 mg 01/05/2020 06:00:00 PM EST 0.5 mg Intrave nous completed 0.5 mg, Intravenous, Once, 01/05/20 at 1800, For 1 dose
immediately prior to intravenous use, lorazepam injection must be diluted with an equal volume of sodium chloride 0.9%
[facility] Medication administered onsite Gadoterate Meglumine SOLN 10 mmol [id number] 01/05/2020 05:30:[address] 20 mL Intravenous completed 10 mmol (20 m L), Intravenous, Once, Sun01/05/20 at 1900, For 1 dose [facility] Medication administered onsite Lisinopril 10 MG Oral Tablet lisinopril (PRINIVIL,ZEST RIL) tablet 10 mg lisinopril (PRINIVIL,ZESTRIL) tablet 10 mg 01/05/2020 09:00:00 AM EST 10 mg Oral active 10 mg, Oral, Daily, First dose on Sun01/05/20 at 0900 [facility] Medication administered onsite DAILY REYMUNDO (THERAGRAN) 1 tablet [id number] 01/05/2020 09:00:00 AM EST 1 {tbl} Oral active 1 tablet, Oral, Daily, First dose on Sun01/05/20 at 0900, Post-op [facility] Medication administered onsite Acetaminophen 500 MG Oral Tablet acetaminophen (TYLENO L) tablet 1,000 mg acetaminophen (TYLENOL) tablet 1,000 mg 01/05/2020 02:10:00 AM EST 1000 mg Oral active 1,000 mg, Oral , Every 6 hours (scheduled), First dose on Sun01/05/20 at 0210, Post-op [facility] Medication administered onsite Docusate Sodium 50 MG / sennosides, [facility]ING 8.6 MG Oral Tablet senna-docusate (PERICOLACE) 8.6-50 MG 2 tablet senna-docusate (PERICOLACE) 8.6-50 MG 2 tablet 01/05/2020 02:10:00 AM EST 2 {tbl} Oral active 2 tablet, Oral, Nightly, First dose on Sun01/05/20 at 0210, Post-op
hold for loose stools
[facility] Medication administered onsite fentaNYL Citrate (PF) (SUBLIMAZE) injection 25 mcg [id number] 01/05/2020 01:54:09 AM EST 25 ug Intravenous active 25 mcg, Intravenous, Every 3 hours PRN, for severe breakthrough pain (7-10) if oral opioid ineffective, Starting Sun01/05/20 at 0154, For 7 days, Post-op [facility] Medication administered onsite Methocarbamol 500 MG Oral Tablet methocarbamol (ROBAXI N) tablet 500 mg methocarbamol (ROBAXIN) tablet 500 mg 01/05/2020 01:54:09 AM EST 50 0 mg Oral active 500 mg, Oral, 4 times daily PRN, muscle spasms, Starting Sun01/05/20 at 0154, Post-op [facility] Medication administered onsite Oxycodone Hydrochloride 5 MG Oral Tablet oxyCODONE (ROXICODONE) immediate release tablet 2.5 mg oxyCODONE (ROXICODONE) immediate release tablet 2.5 mg 01/05/2020 01:54:09 AM EST 2.5 mg Oral active 2.5 mg, Oral, Every 4 hours PRN, moderate pain (4-6), Starting Sun01/05/20 at 0154, For 7 days, Post-op [facility] Medication administered onsite Oxycodone Hydrochloride 5 MG Oral Tablet oxyCODONE (ROXICODONE) immediate release tablet 5 mg oxyCODONE (ROXICODONE) immediate release tablet 5 mg 01/05/2020 01:54:09 AM EST 5 mg Oral active 5 mg, Oral, Every 4 hours PRN, severe pain (7-10), Starting Sun01/05/20 at 0154, For 7 days, Post-op [facility] Medication administered onsite Mineral Oil 1000 MG/ML Enema mineral oil enema 1 enema mineral oil enema 1 enema 01/05/2020 01:54:09 AM EST 1 {enema} Rectal active 1 enema, Rectal, Daily PRN, constipation, if unrelieved by dulcolax, Starting Sun01/05/20 at 0154, Post-op
hold for loose stools
[facility] Medication administered onsite Ondansetron 4 MG Disintegrating Oral Tab let ondansetron (ZOFRAN-ODT) disintegrating tablet 4 mg ondansetron (ZOFRAN-ODT) disintegrating tablet 4 mg 01/05/2020 01:54:09 AM EST 4 mg Oral active 4 mg, Oral, Every 4 hours PRN, nausea, vomiting, Starting Sun01/05/20 at 0154, Post-op [facility] Medication administered onsite ondansetron (ZOFRAN) injection 4 mg [id number] 01/05/2020 01:54:0 9 AM EST 4 mg Intravenous active 4 mg, In travenous, Every 4 hours PRN, nausea, vomiting, Starting Sun01/05/20 at 0154, Post-op
If unable to take PO
[facility] Medication administered onsite sodium chloride 0.9% (NS) infusion [id number] 01/05/2020 01:20:00 A M EST Intravenous completed at 100 mL/hr, Intravenous, Continuous, Starting Sun01/05/20 at 0120, For 12 hours [facility] Medication administered onsite normal saline flush 0.9 % injection 3 mL [id number] 01/05/2020 01:20:00 AM EST 3 mL Intravenous active 3 mL , Intravenous, Every 8 hours (scheduled), First dose on Sun01/05/20 at 0120
flush per protocol, D/C Main IV fluid if appropriate
[facility] Medication administered onsite Morphine Sulfate (PF) injection 4 mg [id number] 01/04/2020 10:20: 00 PM EST 4 mg Intravenous completed 4 mg, In travenous, Once, 01/04/20 at 2220, For 1 dose [facility] Medication administered onsite 10 mg 11/21/2019 [...] oxycodone hydrochloride 10 MG Oral Tablet MARJORIE ([facility]) albuterol sulfate HFA 90 mcg/actuation a erosol inhaler INHALE 4 PUFFS EVERY 4 TO 6 HOURS NEEDED FOR WHEEZING [id number] comple zakiya [id number] 200 ACTUAT albuterol 0.09 MG/ACTUAT Metered Dose Inhaler TOWANDA ([facility]) methylprednisolone 4 mg tablets in a dos e pack TAKE BY MOUTH FOLLOWING PACKAGE INSTRUCTIONS [id number] completed me thylprednisolone 4 mg tablets in a dose pack MARJORIE ([facility]) Methocarbamol 750 MG Oral Tablet methoca rbamol 750 mg tablet TAKE 2 TABLETS BY MOUTH TWICE A DAY NEEDED methocarbamol 750 mg tablet TAKE 2 TABLE TS BY MOUTH TWICE A DAY NEEDED completed methocarbamol 750 MG Oral Tablet MARJORIE ([facility]) Ondansetron 8 MG Disintegrating Oral Tab let ondansetron [address] ONE TABLET UNDER THE TONGUE THREE TIMES A DAY ondansetron [address] ONE TABLET UNDER THE TONGUE THREE TIMES A DAY completed ondansetron 8 MG Dis integrating Oral Tablet TOWANDA ([facility]) Haloperidol 2 MG Oral Tablet haloperidol 2 mg tablet TAKE TWO TABLETS BY MOUTH EVERY DAY haloperidol 2 mg tablet TAKE TWO TABLETS BY MOUTH EVERY DAY completed haloperidol 2 MG Oral Tablet TOWANDA ([facility]) Ketorolac Tromethamine 10 MG Oral Tablet ketorolac 10 mg tablet TAKE ONE TABLET BY MOUTH FOUR TIMES A DAY ketorolac 10 mg tablet TAKE ONE TABLET B Y MOUTH FOUR TIMES A DAY completed ketorolac tromethamine 10 MG Oral Tablet TOWANDA ([facility]) vitamin d3 25 mcg (1000 ut) tabs completed vitamin d3 25 mcg (1000 ut) tabs TOWANDA ([facility]) Baclofen 5 MG Oral Tablet baclofen 5 mg tablet baclofen 5 mg tablet completed baclofen 5 MG Oral Tablet TOWANDA ([facility]) Cyclobenzaprine hydrochloride 10 MG Oral Tablet cyclob enzaprine 10 mg tablet cyclobenzaprine 10 mg tablet completed cyclobenzaprine hydrochloride 10 MG Oral Tablet TOWANDA ([facility]) gabapentin 100 MG Oral Capsule gabapenti n 100 mg capsule TAKE ONE CAPSULE BY MOUTH THREE TIMES A DAY gabapentin 100 mg capsule TAKE ONE CAPSU LE BY MOUTH THREE TIMES A DAY completed prisca pentin 100 MG Oral Capsule TOWANDA ([facility]) Oxycodone Hydrochloride 5 MG Oral Tablet oxycodone 5 mg tablet TAKE 1/2 TABLET 2.5MG BY MOUTH EVERY 6 HOURS NEEDED MAXIMUM DAILY DOSE 2 TABLETS oxycodone 5 mg tablet TAKE 1/2 TABLET 2.5MG BY MOUTH EVERY 6 HOURS NEEDED MAXIMUM DAILY DOSE 2 TABLETS complet ed oxycodone hydrochloride 5 MG Oral Tablet TOWANDA ([facility]) Magnesium Hydroxide 80 MG/ML Oral Suspen maxim Milk of Magnesia 400 mg/5 mL oral suspension TAKE 30 MLS BY MOUTH ONCE DAILY NEEDED FOR CONSTIPATION Milk of Magnesia 400 mg/5 mL oral suspension TAKE 30 MLS BY MOUTH ONCE DAILY NEEDED FOR CONSTIPATION completed magnesium hydroxide 80 MG/ML Oral Suspension TOWANDA ([facility]) Methocarbamol 750 MG Oral Tablet methoca rbamol 750 mg tablet TAKE 2 TABLETS BY MOUTH TWICE A DAY NEEDED methocarbamol 750 mg tablet TAKE 2 TABLE TS BY MOUTH TWICE A DAY NEEDED completed methocarbamol 750 MG Oral Tablet TOWANDA ([facility]) tramadol hydrochloride 50 MG Oral Tablet tramadol 50 mg tablet TAKE ONE TABLET BY MOUTH TWICE A DAY MAXIMUM DAILY DOSE 2 TABLETS tramadol 50 mg tablet TAKE ONE TABLET BY MOUTH TWICE A DAY MAXIMUM DAILY DOSE 2 TABLETS completed tramadol hydrochloride 50 MG Ora l Tablet TOWANDA ([facility]) gabapentin 100 MG Oral Capsule gabapenti n 100 mg capsule TAKE ONE CAPSULE BY MOUTH THREE TIMES A DAY gabapentin 100 mg capsule TAKE ONE CAPSU LE BY MOUTH THREE TIMES A DAY completed prisca pentin 100 MG Oral Capsule TOWANDA ([facility]) Azithromycin 250 MG Oral Tablet azithrom ycin 250 mg tablet TAKE TWO TABLETS BY MOUTH AT ONCE ON THE FIRST DAY THEN TAKE ONE DAILY THEREAFTER azithromycin 250 mg tablet TAKE TWO TABLETS BY MOUTH AT ONCE ON THE FIRST DAY THEN TAKE ONE DAILY THEREAFTER completed azithromyci n 250 MG Oral Tablet TOWANDA ([facility]) Magnesium Hydroxide 80 MG/ML Oral Suspen maxim Milk of Magnesia 400 mg/5 mL oral suspension TAKE 30 MLS BY MOUTH ONCE DAILY NEEDED FOR CONSTIPATION Milk of Magnesia 400 mg/5 mL oral suspension TAKE 30 MLS BY MOUTH ONCE DAILY NEEDED FOR CONSTIPATION completed magnesium hydroxide 80 MG/ML Oral Suspension MARJORIE ([facility]) albuterol sulfate HFA 90 mcg/actuation a erosol inhaler INHALE 4 PUFFS EVERY 4 TO 6 HOURS NEEDED FOR WHEEZING [id number] [facility] zakiya [id number] 200 ACTUAT albuterol 0.09 MG/ACTUAT Metered Dose Inhaler TOWANDA ([facility]) Methocarbamol 500 MG Oral Tablet methoca rbamol 500 mg tablet TAKE ONE TABLET BY MOUTH THREE TIMES A DAY methocarbamol 500 mg tablet TAKE ONE TAB LET BY MOUTH THREE TIMES A DAY completed meth ocarbamol 500 MG Oral Tablet TOWANDA ([facility]) Melatonin 5 MG Oral Tablet melatonin 5 m g tablet Take 1 tablet every day by oral route at bedtime. melatonin 5 mg tablet Take 1 tablet ever y day by oral route at bedtime. 1 completed melatonin 5 M G Oral Tablet TOWANDA ([facility]) Ondansetron 8 MG Disintegrating Oral Tab let ondansetron [address] ONE TABLET UNDER THE TONGUE THREE TIMES A DAY ondansetron [address] ONE TABLET UNDER THE TONGUE THREE TIMES A DAY completed ondansetron 8 MG Dis integrating Oral Tablet MARJORIE ([facility]) Azithromycin 250 MG Oral Tablet azithrom ycin 250 mg tablet TAKE TWO TABLETS BY MOUTH AT ONCE ON THE FIRST DAY THEN TAKE ONE DAILY THEREAFTER azithromycin 250 mg tablet TAKE TWO TABLETS BY MOUTH AT ONCE ON THE FIRST DAY THEN TAKE ONE DAILY THEREAFTER completed azithromyci n 250 MG Oral Tablet TOWANDA ([facility]) Ondansetron 8 MG Disintegrating Oral Tab let ondansetron [address] ONE TABLET UNDER THE TONGUE THREE TIMES A DAY ondansetron [address] ONE TABLET UNDER THE TONGUE THREE TIMES A DAY completed ondansetron 8 MG Dis integrating Oral Tablet MARJORIE ([facility]) 24 HR venlafaxine 37.5 MG Extended Relea se Oral Capsule venlafaxine ER 37.5 mg capsule,extended release 24 hr TAKE ONE CAPSULE BY MOUTH EVERY MORNING venlafaxine ER 37.5 mg capsule,extended release 24 hr TAKE ONE CAPSULE BY MOUTH EVERY MORNING completed 24 HR venlafaxine 37.5 MG Extended Release Oral Capsule TOWANDA ([facility]) Ondansetron 8 MG Disintegrating Oral Tab let ondansetron [address] tablet [address] ONE TABLET UNDER THE TONGUE THREE TIMES A DAY ondansetron [address] ONE TABLET UNDER THE TONGUE THREE TIMES A DAY completed ondansetron 8 MG Dis integrating Oral Tablet MARJORIE ([facility]) Prednisone 50 MG Oral Tablet prednisone 50 mg tablet TAKE 12 TABLETS BY MOUTH TWO TIMES A DAY FOR 2 DAYS prednisone 50 mg tablet TAKE 12 TABLETS BY MOUTH TWO TIMES A DAY FOR 2 DAYS completed prednisone 50 MG Oral Tablet MARJORIE ([facility]) Ketorolac Tromethamine 10 MG Oral Tablet ketorolac 10 mg tablet TAKE ONE TABLET BY MOUTH FOUR TIMES A DAY ketorolac 10 mg tablet TAKE ONE TABLET B Y MOUTH FOUR TIMES A DAY completed ketorolac tromethamine 10 MG Oral Tablet MARJORIE ([facility]) Clonazepam 0.5 MG Oral Tablet clonazepam 0.5 mg tablet TAKE ONE TABLET BY MOUTH EVERY DAY MAXIMUM DAILY DOSE 1 clonazepam 0.5 mg tablet TAKE ONE TABLET BY MOUTH EVERY DAY MAXIMUM DAILY DOSE 1 completed clonazepam 0.5 MG Oral Tablet MARJORIE ([facility]) Oxycodone Hydrochloride 10 MG Oral Table t oxycodone 10 mg tablet TAKE ONE TABLET BY MOUTH EVERY 12 HOURS NEEDED FOR POST OP PAIN MAXIMUM DAILY DOSE 2 oxycodone 10 mg tablet TAKE ONE TABLET BY MOUTH EVERY 12 HOURS NEEDED FOR POST OP PAIN MAXIMUM DAILY DOSE 2 co mpleted oxycodone hydrochloride 10 MG Oral Tablet TOWANDA ([facility]) Baclofen 10 MG Oral Tablet baclofen 10 m g tablet Take 1 tablet 3 times a day by oral route. baclofen 10 mg tablet Take 1 tablet 3 times a day [place] 1 completed baclofen 10 MG Oral Tablet TOWANDA ([facility]) Baclofen 5 MG Oral Tablet baclofen 5 mg tablet baclofen 5 mg tablet completed baclofen 5 MG Oral Tablet TOWANDA ([facility]) 12 HR Oxycodone Hydrochloride [...] 30 MG Extended Release Oral Tablet [Oxycontin] TOWANDA ([facility]) Naproxen 500 MG Oral Tablet naproxen 500 mg tablet TAKE ONE TABLET BY MOUTH TWICE A DAY WITH FOOD naproxen 500 mg tablet TAKE ONE TABLET B Y MOUTH TWICE A DAY WITH FOOD completed naproxen 500 MG Oral Tablet TOWANDA ([facility]) Nortriptyline 25 MG Oral Capsule nortrip tyline 25 mg capsule TAKE ONE CAPSULE BY MOUTH EVERY MORNING nortriptyline 25 mg capsule TAKE ONE CAP [place] BY MOUTH EVERY MORNING completed nortriptyline 25 MG Oral Capsule TOWANDA ([facility]) methylprednisolone 4 mg tablets in a dos e pack TAKE BY MOUTH FOLLOWING PACKAGE INSTRUCTIONS [id number] completed me thylprednisolone 4 mg tablets in a dose pack TOWANDA ([facility]) tramadol hydrochloride 50 MG Oral Tablet tramadol 50 mg tablet TAKE ONE TABLET BY MOUTH TWICE A DAY MAXIMUM DAILY DOSE 2 TABLETS tramadol 50 mg tablet TAKE ONE TABLET BY MOUTH TWICE A DAY MAXIMUM DAILY DOSE 2 TABLETS completed tramadol hydrochloride 50 MG Ora l Tablet TOWANDA ([facility]) oxycodone completed oxycodone TOWANDA ([facility]) Magnesium Hydroxide 80 MG/ML Oral Suspen maxim Milk of Magnesia 400 mg/5 mL oral suspension TAKE 30 MLS BY MOUTH ONCE DAILY NEEDED FOR CONSTIPATION Milk of Magnesia 400 mg/5 mL oral suspension TAKE 30 MLS BY MOUTH ONCE DAILY NEEDED FOR CONSTIPATION completed magnesium hydroxide 80 MG/ML Oral Suspension MARJORIE ([facility]) Baclofen 5 MG Oral Tablet baclofen 5 mg tablet baclofen 5 mg tablet completed baclofen 5 MG Oral Tablet MARJORIE ([facility]) Prednisone 50 MG Oral Tablet prednisone 50 mg tablet TAKE ONE TABLET BY MOUTH EVERY DAY WITH A MEAL prednisone 50 mg tablet TAKE ONE TABLET BY MOUTH EVERY DAY WITH A MEAL completed prednison e 50 MG Oral Tablet TOWANDA ([facility]) Docusate Sodium 50 MG / sennosides, [facility] 8.6 MG Oral Tablet Stimulant Laxative Plus 8.6 mg-50 mg tablet TAKE 2 TABLETS BY MOUTH ONCE OR TWICE DAILY TO PREVENT CONSTIPATION Stimulant Laxative Plus 8.6 mg-50 mg tab let TAKE 2 TABLETS BY MOUTH ONCE OR TWICE DAILY TO PREVENT CONSTIPATION completed docusate sodium 50 MG / sennosides, [facility] 8.6 MG Oral Tablet TOWANDA ([facility]) methylprednisolone 4 mg tablets in a dos e pack TAKE BY MOUTH FOLLOWING PACKAGE INSTRUCTIONS [id number] completed me thylprednisolone 4 mg tablets in a dose pack TOWANDA ([facility]) 12 HR Oxycodone Hydrochloride 30 MG Exte nded Release Oral Tablet [Oxycontin] OxyContin 30 mg tablet,crush resistant,extended release TAKE ONE TABLET BY MOUTH EVERY DAY MAXIMUM DAILY DOSE 1 TABLET OxyContin 30 mg tablet,crush resistant,extended release TAKE ONE TABLET BY MOUTH EVERY DAY MAXIMUM DAILY DOSE 1 TABLET completed Ab use-Deterrent 12 HR oxycodone hydrochloride 30 MG Extended Release Oral Tablet [Oxycontin] TOWANDA ([facility]) Ketorolac Tromethamine 10 MG Oral Tablet ketorolac 10 mg tablet TAKE ONE TABLET BY MOUTH FOUR TIMES A DAY ketorolac 10 mg tablet TAKE ONE TABLET B Y MOUTH FOUR TIMES A DAY completed ketorolac tromethamine 10 MG Oral Tablet TOWANDA ([facility]) Cyclobenzaprine hydrochloride 10 MG Oral Tablet cyclob enzaprine 10 mg tablet cyclobenzaprine 10 mg tablet completed cyclobenzaprine hydrochloride 10 MG Oral Tablet TOWANDA ([facility]) 24 HR venlafaxine 37.5 MG Extended Relea se Oral Capsule venlafaxine ER 37.5 mg capsule,extended release 24 hr venlafaxine ER 37.5 mg capsule,extended release 24 hr completed 24 HR v enlafaxine 37.5 MG Extended Release Oral Capsule MARJORIE ([facility]) oxycodone completed oxycodone MARJORIE ([facility]) Cyclobenzaprine hydrochloride 10 MG Oral Tablet cyclob enzaprine 10 mg tablet cyclobenzaprine 10 mg tablet completed cyclobenzaprine hydrochloride 10 MG Oral Tablet MARJORIE ([facility]) Oxycodone Hydrochloride 5 MG Oral Tablet oxycodone 5 mg tablet TAKE 1/2 TABLET 2.5MG BY MOUTH EVERY 6 HOURS NEEDED MAXIMUM DAILY DOSE 2 TABLETS oxycodone 5 mg tablet TAKE 1/2 TABLET 2.5MG BY MOUTH EVERY 6 HOURS NEEDED MAXIMUM DAILY DOSE 2 TABLETS comple zakiya oxycodone hydrochloride 5 MG Oral Tablet MARJORIE ([facility]) Cyclobenzaprine hydrochloride 10 MG Oral Tablet cyclob enzaprine 10 mg tablet cyclobenzaprine 10 mg tablet completed cyclobenzaprine hydrochloride 10 MG Oral Tablet MARJORIE ([facility]) Oxycodone Hydrochloride 10 MG Oral Table t oxycodone 10 mg tablet TAKE ONE TABLET BY MOUTH EVERY 12 HOURS NEEDED FOR POST OP PAIN MAXIMUM DAILY DOSE 2 oxycodone 10 mg tablet TAKE ONE TABLET BY MOUTH EVERY 12 HOURS NEEDED FOR POST OP PAIN MAXIMUM DAILY DOSE 2 co mpleted oxycodone hydrochloride 10 MG Oral Tablet MARJORIE ([facility]) Methocarbamol 500 MG Oral Tablet methoca rbamol 500 mg tablet TAKE ONE TABLET BY MOUTH THREE TIMES A DAY methocarbamol 500 mg tablet TAKE ONE TAB LET BY MOUTH THREE TIMES A DAY completed meth ocarbamol 500 MG Oral Tablet MARJORIE ([facility]) Naproxen 500 MG Oral Tablet naproxen 500 mg tablet TAKE ONE TABLET BY MOUTH TWICE A DAY WITH FOOD naproxen 500 mg tablet TAKE ONE TABLET B Y MOUTH TWICE A DAY WITH FOOD completed naproxen 500 MG Oral Tablet MARJORIE ([facility]) oxycodone completed oxycodone TOWANDA ([facility]) Oxycodone Hydrochloride 5 MG Oral Tablet oxycodone 5 mg tablet TAKE 1/2 TABLET 2.5MG BY MOUTH EVERY 6 HOURS NEEDED MAXIMUM DAILY DOSE 2 TABLETS oxycodone 5 mg tablet TAKE 1/2 TABLET 2.5MG BY MOUTH EVERY 6 HOURS NEEDED MAXIMUM DAILY DOSE 2 TABLETS comple zakiya oxycodone hydrochloride 5 MG Oral Tablet MARJORIE ([facility]) Cyclobenzaprine hydrochloride 10 MG Oral Tablet cyclob enzaprine 10 mg tablet cyclobenzaprine 10 mg tablet completed cyclobenzaprine hydrochloride 10 MG Oral Tablet TOWANDA ([facility]) 24 HR Nicotine 0.875 MG/HR Transdermal P atch nicotine 21 mg/24 hr daily transdermal patch nicotine 21 mg/24 hr daily transdermal patch completed 24 HR nicotine 0.875 MG/HR Trans dermal System TOWANDA ([facility]) Nortriptyline 10 MG Oral Capsule nortrip tyline 10 mg capsule Take 1 capsule every day by oral route at bedtime. nortriptyline 10 mg capsule Take 1 capsu le every day by oral route at bedtime. 1 capsule(s) completed nortriptyline 10 MG Oral Capsule TOWANDA ([facility]) Magnesium Hydroxide 80 MG/ML Oral Suspen maxim Milk of Magnesia 400 mg/5 mL oral suspension TAKE 30 MLS BY MOUTH ONCE DAILY NEEDED FOR CONSTIPATION Milk of Magnesia 400 mg/5 mL oral suspension TAKE 30 MLS BY MOUTH ONCE DAILY NEEDED FOR CONSTIPATION completed magnesium hydroxide 80 MG/ML Oral Suspension TOWANDA ([facility]) 12 HR Oxycodone Hydrochloride 30 MG Exte nded Release Oral Tablet [Oxycontin] OxyContin 30 mg tablet,crush resistant,extended release TAKE ONE TABLET BY MOUTH EVERY DAY MAXIMUM DAILY DOSE 1 TABLET OxyContin 30 mg tablet,crush resistant,extended release TAKE ONE TABLET BY MOUTH EVERY DAY MAXIMUM DAILY DOSE 1 TABLET completed Ab use-Deterrent 12 HR oxycodone hydrochloride 30 MG Extended Release Oral Tablet [Oxycontin] TOWANDA ([facility]) Amlodipine 10 MG Oral Tablet amlodipine 10 mg tablet TAKE ONE TABLET BY MOUTH EVERY DAY amlodipine 10 mg tablet TAKE ONE TABLET BY MOUTH EVERY DAY completed amlodipine 10 MG Oral Tablet TOWANDA ([facility]) albuterol sulfate HFA 90 mcg/actuation a erosol inhaler INHALE 4 PUFFS EVERY 4 TO 6 HOURS NEEDED FOR WHEEZING [id number] compl eted [id number] 200 ACTUAT albuterol 0.09 MG/ACTUAT Metered Dose Inhaler TOWANDA ([facility]) gabapentin 100 MG Oral Capsule gabapenti n 100 mg capsule TAKE ONE CAPSULE BY MOUTH THREE TIMES A DAY gabapentin 100 mg capsule TAKE ONE CAPSU LE BY MOUTH THREE TIMES A DAY completed prisca pentin 100 MG Oral Capsule TOWANDA ([facility]) Methocarbamol 500 MG Oral Tablet methoca rbamol 500 mg tablet TAKE ONE TABLET BY MOUTH THREE TIMES A DAY methocarbamol 500 mg tablet TAKE ONE TAB LET BY MOUTH THREE TIMES A DAY completed meth ocarbamol 500 MG Oral Tablet TOWANDA ([facility]) tramadol hydrochloride 50 MG Oral Tablet tramadol 50 mg tablet TAKE ONE TABLET BY MOUTH TWICE A DAY MAXIMUM DAILY DOSE 2 TABLETS tramadol 50 mg tablet TAKE ONE TABLET BY MOUTH TWICE A DAY MAXIMUM DAILY DOSE 2 TABLETS completed tramadol hydrochloride 50 MG Ora l Tablet TOWANDA ([facility]) Ketorolac Tromethamine 10 MG Oral Tablet ketorolac 10 mg tablet TAKE ONE TABLET BY MOUTH FOUR TIMES A DAY ketorolac 10 mg tablet TAKE ONE TABLET B Y MOUTH FOUR TIMES A DAY completed ketorolac tromethamine 10 MG Oral Tablet TOWANDA ([facility]) 24 HR venlafaxine 37.5 MG Extended Relea se Oral Capsule venlafaxine ER 37.5 mg capsule,extended release 24 hr TAKE ONE CAPSULE BY MOUTH EVERY MORNING venlafaxine ER 37.5 mg capsule,extended release 24 hr TAKE ONE CAPSULE BY MOUTH EVERY MORNING completed 24 HR venlafaxine 37.5 MG Extended Release Oral Capsule [facility]) tramadol hydrochloride 50 MG Oral Tablet tramadol 50 mg tablet TAKE ONE TABLET BY MOUTH TWICE A DAY MAXIMUM DAILY DOSE 2 TABLETS tramadol 50 mg tablet TAKE ONE TABLET BY MOUTH TWICE A DAY MAXIMUM DAILY DOSE 2 TABLETS completed tramadol hydrochloride 50 MG Ora l Tablet TOWANDA ([facility]) Oxycodone Hydrochloride 5 MG Oral Tablet oxycodone 5 mg tablet TAKE 1/2 TABLET 2.5MG BY MOUTH EVERY 6 HOURS NEEDED MAXIMUM DAILY DOSE 2 TABLETS oxycodone 5 mg tablet TAKE 1/2 TABLET 2.5MG BY MOUTH EVERY 6 HOURS NEEDED MAXIMUM DAILY DOSE 2 TABLETS comple zakiya oxycodone hydrochloride 5 MG Oral Tablet [facility]) 12 HR Oxycodone Hydrochloride 60 MG [...] MG Extended Release Oral Tablet [Oxycontin] MARJORIE ([facility]) Oxycodone Hydrochloride 5 MG Oral Tablet oxycodone 5 mg tablet TAKE 1/2 TABLET 2.5MG BY MOUTH EVERY 6 HOURS NEEDED MAXIMUM DAILY DOSE 2 TABLETS oxycodone 5 mg tablet TAKE 1/2 TABLET 2.5MG BY MOUTH EVERY 6 HOURS NEEDED MAXIMUM DAILY DOSE 2 TABLETS comple zakiya oxycodone hydrochloride 5 MG Oral Tablet [facility]) Ondansetron 8 MG Disintegrating Oral Tab let ondansetron [address] ONE TABLET UNDER THE TONGUE THREE TIMES A DAY ondansetron [address] ONE TABLET UNDER THE TONGUE THREE TIMES A DAY completed ondansetron 8 MG Dis integrating Oral Tablet TOWANDA ([facility]) Prednisone 50 MG Oral Tablet prednisone 50 mg tablet TAKE ONE TABLET BY MOUTH EVERY DAY WITH A MEAL prednisone 50 mg tablet TAKE ONE TABLET BY MOUTH EVERY DAY WITH A MEAL completed prednison e 50 MG Oral Tablet TOWANDA ([facility]) 12 HR Oxycodone Hydrochloride [...] MG Extended Release Oral Tablet [Oxycontin] MARJORIE ([facility]) 12 HR Oxycodone Hydrochloride [...] 30 MG Extended Release Oral Tablet [Oxycontin] TOWANDA ([facility]) Methocarbamol 500 MG Oral Tablet methoca rbamol 500 mg tablet TAKE ONE TABLET BY MOUTH THREE TIMES A DAY methocarbamol 500 mg tablet TAKE ONE TAB LET BY MOUTH THREE TIMES A DAY completed meth ocarbamol 500 MG Oral Tablet TOWANDA ([facility]) Ketorolac Tromethamine 10 MG Oral Tablet ketorolac 10 mg tablet TAKE ONE TABLET BY MOUTH FOUR TIMES A DAY ketorolac 10 mg tablet TAKE ONE TABLET B Y MOUTH FOUR TIMES A DAY completed ketorolac tromethamine 10 MG Oral Tablet TOWANDA ([facility]) Methocarbamol 750 MG Oral Tablet methoca rbamol 750 mg tablet TAKE 2 TABLETS BY MOUTH TWICE A DAY NEEDED methocarbamol 750 mg tablet TAKE 2 TABLE TS BY MOUTH TWICE A DAY NEEDED completed methocarbamol 750 MG Oral Tablet TOWANDA ([facility]) Naproxen 500 MG Oral Tablet naproxen 500 mg tablet TAKE ONE TABLET BY MOUTH TWICE A DAY WITH FOOD naproxen 500 mg tablet TAKE ONE TABLET B Y MOUTH TWICE A DAY WITH FOOD completed naproxen 500 MG Oral Tablet TOWANDA ([facility]) oxycodone completed oxycodone TOWANDA ([facility]) Oxycodone Hydrochloride 10 MG Oral Table t oxycodone 10 mg tablet TAKE ONE TABLET BY MOUTH EVERY 12 HOURS NEEDED FOR POST OP PAIN MAXIMUM DAILY DOSE 2 oxycodone 10 mg tablet TAKE ONE TABLET BY MOUTH EVERY 12 HOURS NEEDED FOR POST OP PAIN MAXIMUM DAILY DOSE 2 co mpleted oxycodone hydrochloride 10 MG Oral Tablet TOWANDA ([facility]) oxycodone completed oxycodone TOWANDA ([facility]) Naproxen 500 MG Oral Tablet naproxen 500 mg tablet TAKE ONE TABLET BY MOUTH TWICE A DAY WITH FOOD naproxen 500 mg tablet TAKE ONE TABLET B Y MOUTH TWICE A DAY WITH FOOD completed naproxen 500 MG Oral Tablet TOWANDA ([facility]) Naproxen 500 MG Oral Tablet naproxen 500 mg tablet TAKE ONE TABLET BY MOUTH TWICE A DAY WITH FOOD naproxen 500 mg tablet TAKE ONE TABLET B Y MOUTH TWICE A DAY WITH FOOD completed naproxen 500 MG Oral Tablet TOWANDA ([facility]) Azithromycin 250 MG Oral Tablet azithrom ycin 250 mg tablet TAKE TWO TABLETS BY MOUTH AT ONCE ON THE FIRST DAY THEN TAKE ONE DAILY THEREAFTER azithromycin 250 mg tablet TAKE TWO TABLETS BY MOUTH AT ONCE ON THE FIRST DAY THEN TAKE ONE DAILY THEREAFTER completed azithromyc in 250 MG Oral Tablet TOWANDA ([facility]) Methocarbamol 500 MG Oral Tablet methoca rbamol 500 mg tablet TAKE ONE TABLET BY MOUTH THREE TIMES A DAY methocarbamol 500 mg tablet TAKE ONE TAB LET BY MOUTH THREE TIMES A DAY completed meth ocarbamol 500 MG Oral Tablet TOWANDA ([facility]) 12 HR Oxycodone Hydrochloride [...] 60 MG Extended Release Oral Tablet [Oxycontin] [facility]) oxycodone completed oxycodone [facility]) 12 HR Oxycodone Hydrochloride 30 MG Exte nded Release Oral Tablet [Oxycontin] OxyContin 30 mg tablet,crush resistant,extended release TAKE ONE TABLET BY MOUTH EVERY DAY MAXIMUM DAILY DOSE 1 TABLET OxyContin 30 mg tablet,crush resistant,extended release TAKE ONE TABLET BY MOUTH EVERY DAY MAXIMUM DAILY DOSE 1 TABLET completed Ab use-Deterrent 12 HR oxycodone hydrochloride 30 MG Extended Release Oral Tablet [Oxycontin] [facility]) albuterol sulfate HFA 90 mcg/actuation a erosol inhaler INHALE 4 PUFFS EVERY 4 TO 6 HOURS NEEDED FOR WHEEZING [id number] compl eted [id number] 200 ACTUAT albuterol 0.09 MG/ACTUAT Metered Dose Inhaler TOWANDA ([facility]) Magnesium Hydroxide 80 MG/ML Oral Suspen maxim Milk of Magnesia 400 mg/5 mL oral suspension TAKE 30 MLS BY MOUTH ONCE DAILY NEEDED FOR CONSTIPATION Milk of Magnesia 400 mg/5 mL oral suspension TAKE 30 MLS BY MOUTH ONCE DAILY NEEDED FOR CONSTIPATION completed magnesium hydroxide 80 MG/ML Oral Suspension [facility]) pantoprazole 40 MG Delayed Release Oral Tablet pantoprazole 40 mg tablet,delayed release Take 1 tablet every day by oral route. pantoprazole 40 mg tablet,delayed release Take 1 tablet every day by oral route. 1 completed pantoprazole 40 MG Delayed Relea se Oral Tablet TOWANDA ([facility]) albuterol sulfate HFA 90 mcg/actuation a erosol inhaler INHALE 4 PUFFS EVERY 4 TO 6 HOURS NEEDED FOR WHEEZING [id number] compl eted [id number] 200 ACTUAT albuterol 0.09 MG/ACTUAT Metered Dose Inhaler TOWANDA ([facility]) Azithromycin 250 MG Oral Tablet azithrom ycin 250 mg tablet TAKE TWO TABLETS BY MOUTH AT ONCE ON THE FIRST DAY THEN TAKE ONE DAILY THEREAFTER azithromycin 250 mg tablet TAKE TWO TABLETS BY MOUTH AT ONCE ON THE FIRST DAY THEN TAKE ONE DAILY THEREAFTER completed azithromyc in 250 MG Oral Tablet TOWANDA ([facility]) Methocarbamol 500 MG Oral Tablet methoca rbamol 500 mg tablet TAKE ONE TABLET BY MOUTH THREE TIMES A DAY methocarbamol 500 mg tablet TAKE ONE TAB LET BY MOUTH THREE TIMES A DAY completed meth ocarbamol 500 MG Oral Tablet TOWANDA ([facility]) gabapentin 100 MG Oral Capsule gabapenti n 100 mg capsule TAKE ONE CAPSULE BY MOUTH THREE TIMES A DAY gabapentin 100 mg capsule TAKE ONE CAPSU LE BY MOUTH THREE TIMES A DAY completed prisca pentin 100 MG Oral Capsule TOWANDA ([facility]) gabapentin 100 MG Oral Capsule gabapenti n 100 mg capsule TAKE ONE CAPSULE BY MOUTH THREE TIMES A DAY gabapentin 100 mg capsule TAKE ONE CAPSU LE BY MOUTH THREE TIMES A DAY completed prisca pentin 100 MG Oral Capsule TOWANDA ([facility]) Azithromycin 250 MG Oral Tablet azithrom ycin 250 mg tablet TAKE TWO TABLETS BY MOUTH AT ONCE ON THE FIRST DAY THEN TAKE ONE DAILY THEREAFTER azithromycin 250 mg tablet TAKE TWO TABLETS BY MOUTH AT ONCE ON THE FIRST DAY THEN TAKE ONE DAILY THEREAFTER completed azithromyc in 250 MG Oral Tablet TOWANDA ([facility]) Acetaminophen 500 MG Oral Tablet acetaminophen 500 mg tablet acetaminophen 500 mg tablet completed acetaminophe n 500 MG Oral Tablet TOWANDA ([facility]) Magnesium Hydroxide 80 MG/ML Oral Suspen maxim Milk of Magnesia 400 mg/5 mL oral suspension TAKE 30 MLS BY MOUTH ONCE DAILY NEEDED FOR CONSTIPATION Milk of Magnesia 400 mg/5 mL oral suspension TAKE 30 MLS BY MOUTH ONCE DAILY NEEDED FOR CONSTIPATION completed magnesium hydroxide 80 MG/ML Oral Suspension TOWANDA ([facility]) methylprednisolone 4 mg tablets in a dos e pack TAKE BY MOUTH FOLLOWING PACKAGE INSTRUCTIONS [id number] completed me thylprednisolone 4 mg tablets in a dose pack TOWANDA ([facility]) Cyclobenzaprine hydrochloride 10 MG Oral Tablet cyclob enzaprine 10 mg tablet cyclobenzaprine 10 mg tablet completed cyclobenzaprine hydrochloride 10 MG Oral Tablet TOWANDA ([facility]) 12 HR Oxycodone Hydrochloride 60 MG [...] 60 MG Extended Release Oral Tablet [Oxycontin] TOWANDA ([facility]) Docusate Sodium 100 MG Oral Capsule [DOK] DOK 100 mg capsule DOK 100 mg capsule completed docusate sodiu m 100 MG Oral Capsule [DOK] TOWANDA ([facility]) Oxycodone Hydrochloride 10 MG Oral Table t oxycodone 10 mg tablet TAKE ONE TABLET BY MOUTH EVERY 12 HOURS NEEDED FOR POST OP PAIN MAXIMUM DAILY DOSE 2 oxycodone 10 mg tablet TAKE ONE TABLET BY MOUTH EVERY 12 HOURS NEEDED FOR POST OP PAIN MAXIMUM DAILY DOSE 2 co mpleted oxycodone hydrochloride 10 MG Oral Tablet TOWANDA ([facility]) Baclofen 5 MG Oral Tablet baclofen (LIORESAL) 5 MG tab let baclofen (LIORESAL) 5 MG tablet 5 mg Oral aborted Take 5 mg by m outh Three times daily [facility] Ketorolac Tromethamine 10 MG Oral Tablet ketorolac 10 mg tablet TAKE ONE TABLET BY MOUTH FOUR TIMES A DAY ketorolac 10 mg tablet TAKE ONE TABLET B Y MOUTH FOUR TIMES A DAY completed ketorolac tromethamine 10 MG Oral Tablet TOWANDA ([facility]) Ondansetron 4 MG Oral Tablet ondansetron HCl 4 mg tabl et ondansetron HCl 4 mg tablet completed ondansetron 4 M G Oral Tablet TOWANDA ([facility]) Ondansetron 8 MG Disintegrating Oral Tab let ondansetron [address] ONE TABLET UNDER THE TONGUE THREE TIMES A DAY ondansetron [address] ONE TABLET UNDER THE TONGUE THREE TIMES A DAY completed ondansetron 8 MG Dis integrating Oral Tablet TOWANDA ([facility]) Methocarbamol 750 MG Oral Tablet methoca rbamol 750 mg tablet TAKE 2 TABLETS BY MOUTH TWICE A DAY NEEDED methocarbamol 750 mg tablet TAKE 2 TABLE TS BY MOUTH TWICE A DAY NEEDED completed methocarbamol 750 MG Oral Tablet [facility]) 12 HR Oxycodone Hydrochloride 60 MG [...] 60 MG Extended Release Oral Tablet [Oxycontin] [facility]) Azithromycin 250 MG Oral Tablet azithrom ycin 250 mg tablet TAKE TWO TABLETS BY MOUTH AT ONCE ON THE FIRST DAY THEN TAKE ONE DAILY THEREAFTER azithromycin 250 mg tablet TAKE TWO TABLETS BY MOUTH AT ONCE ON THE FIRST DAY THEN TAKE ONE DAILY THEREAFTER completed azithromyc in 250 MG Oral Tablet [facility]) 12 HR Oxycodone Hydrochloride 30 MG Exte nded Release Oral Tablet [Oxycontin] OxyContin 30 mg tablet,crush resistant,extended release TAKE ONE TABLET BY MOUTH EVERY DAY MAXIMUM DAILY DOSE 1 TABLET OxyContin 30 mg tablet,crush resistant,extended release TAKE ONE TABLET BY MOUTH EVERY DAY MAXIMUM DAILY DOSE 1 TABLET completed Ab use-Deterrent 12 HR oxycodone hydrochloride 30 MG Extended Release Oral Tablet [Oxycontin] [facility]) Nortriptyline 50 MG Oral Capsule nortrip tyline 50 mg capsule TAKE ONE CAPSULE BY MOUTH EVERY MORNING nortriptyline 50 mg capsule TAKE ONE CAP [place] BY MOUTH EVERY MORNING completed nortriptyline 50 MG Oral Capsule [facility]) 12 HR Oxycodone Hydrochloride 60 MG [...] 60 MG Extended Release Oral Tablet [Oxycontin] [facility]) Cholecalciferol 1000 UNT Oral Capsule ch olecalciferol (vitamin D3) 25 mcg (1,000 unit) capsule Take 1 capsule every day by oral route. cholecalciferol (vitamin D3) 25 mcg (1,000 unit) capsule Take 1 capsule every day by oral route. 1 capsule(s) completed cholecalciferol 0.0 25 MG Oral Capsule [facility]) tramadol hydrochloride 50 MG Oral Tablet tramadol 50 mg tablet TAKE ONE TABLET BY MOUTH TWICE A DAY MAXIMUM DAILY DOSE 2 TABLETS tramadol 50 mg tablet TAKE ONE TABLET BY MOUTH TWICE A DAY MAXIMUM DAILY DOSE 2 TABLETS completed tramadol hydrochloride 50 MG Ora l Tablet [facility]) gabapentin 100 MG Oral Capsule gabapenti n 100 mg capsule TAKE ONE CAPSULE BY MOUTH THREE TIMES A DAY gabapentin 100 mg capsule TAKE ONE CAPSU LE BY MOUTH THREE TIMES A DAY completed prisca pentin 100 MG Oral Capsule [facility]) methylprednisolone 4 mg tablets in a dos e pack TAKE BY MOUTH FOLLOWING PACKAGE INSTRUCTIONS [id number] completed me thylprednisolone 4 mg tablets in a dose pack [facility]) Baclofen 5 MG Oral Tablet baclofen 5 mg tablet baclofen 5 mg tablet completed baclofen 5 MG Oral Tablet TOWANDA ([facility]) Naproxen 500 MG Oral Tablet naproxen 500 mg tablet TAKE ONE TABLET BY MOUTH TWICE A DAY WITH FOOD naproxen 500 mg tablet TAKE ONE TABLET B Y MOUTH TWICE A DAY WITH FOOD completed naproxen 500 MG Oral Tablet TOWANDA ([facility]) Oxycodone Hydrochloride 10 MG Oral Table t oxycodone 10 mg tablet TAKE ONE TABLET BY MOUTH EVERY 12 HOURS NEEDED FOR POST OP PAIN MAXIMUM DAILY DOSE 2 oxycodone 10 mg tablet TAKE ONE TABLET BY MOUTH EVERY 12 HOURS NEEDED FOR POST OP PAIN MAXIMUM DAILY DOSE 2 co mpleted oxycodone hydrochloride 10 MG Oral Tablet [facility]) Insurance Providers Payer name Policy type / Coverage type Policy ID Covered democrat ID Covered democrat's relationship to rowell Policy Rowell Plan Information MEDICAID M [id number] Self [id number] Medicaid S [id number] [employer] COMMUNITY PLAN MCDHMO [id number] SP [id number] Managed Care - Community Plan [facility] P [id number] S [id number] [facility] Comm Plan Medicaid F [id number] SELF [id number] [facility] Comm Plan Medicaid F [id number] SELF [id number] Managed Care - Community Plan [facility] P [id number] S [id number] [facility] Comm Plan Medicaid F [id number] SELF [id number] Medicaid S [id number] S [id number] Managed Care - [facility] Community Plan P [id number] S [id number] Managed Care - Community Plan [facility] P [id number] S [id number] [facility] MEDICAID [id number] [phone] [id number] [facility] MEDICAID [id number] Sigrid [id number] MEDICAID [id number] Sigrid [id number] INSURANCE COVID-19 [id number] INSURANCE COVID-19 COVID Sigrid C OVID UH I [id number] Self [id number] MEDICAID -PHYSICIAN [id number] MEDICAID M [id number] S [id number] [facility] [id number] SP [id number] Medicaid P [id number] UNHC COMMUNITY PLAN MCDHMO [id number] SP [id number] UNHC COMMUNITY PLAN XIX [id number] UNHC COMMUNITY PLAN MCDHMO [id number] SP [id number] [facility](MCAID) O [id number] S [id number] [facility] COMMUNITY PLAN CO [id number] [facility] COMMUNTY PLAN [id number] ANS-Medicaid [id number] MEDICAID [id number] SP [id number] ANSI-Medicaid [id number] Managed Care - Community Plan [facility] P [id number] S [id number] MEDICAID [id number] SP [id number] MEDICAID -O/P EMERGENCY ROOM [id number] UMR -O/P UNAVAILABLE UNAVAILABLE [facility] Health Maintenance Organization ([facility]) [id number] Self [id number] [facility] Health Maintenance Organization ([facility]) [id number] Self [id number] [facility] [id number] SP [id number] Problems, Conditions, and Diagnoses Code Display Name Description Problem Type Effective Dates Data Source(s) M48.00 Spinal stenosis, site unspecified Spinal stenosi s, site unspecified Diagnosis 04/28/2020 07:12:15 AM EDT [facility] [id number] CONTACT WITH AND SUSPECTED EXPOSURE TO C OVID-19 CONTACT WITH AND SUSPECTED EXPOSURE TO COVID-19 Diagnosis 04/19/2020 08:39:00 PM EDT [facility] [id number] Dysarthria following unspecified cerebro vascular disease Dysarthria following unspecified cerebrovascular disease Diagnosis 04/20/19 21 08:39:00 PM EDT [facility] R456 Violent behavior Violent behavior Diagnosis 04/19/2020 08 :39:00 PM EDT [facility] [id number] Cannabis abuse with cannabis-induced anx iety disorder Cannabis abuse with cannabis-induced anxiety disorder Diagnosis 04/19/2020 08:39:00 PM ED T [facility] R000 Tachycardia, unspecified Tachycardia, unspecified Diag nosis 04/19/2020 08:39:00 PM EDT [facility] G8929 Other chronic pain Other chronic pain Diagnosis 08:39:00 PM EDT [facility] F411 Generalized anxiety disorder Generalized anxiety disor fausto Diagnosis 04/19/2020 08:39:00 PM EDT [facility] [id number] Nicotine dependence, cigarettes, uncompl icated Nicotine dependence, cigarettes, uncomplicated Diagnosis 04/19/2020 08:39:00 PM EDT [facility] I10 Essential (primary) hypertension Essential (primary) h ypertension Diagnosis 04/19/2020 08:39:00 PM EDT [facility] [id number] Cannabis abuse with intoxication, unspec ified Cannabis abuse with intoxication, unspecified Diagnosis 04/19/2020 08:39:00 PM EDT [facility] R531 Weakness Weakness Diagnosis 04/19/2020 08:39:00 PM ED [facility] O16216 Pain in left leg Pain in left leg Diagnosis 04/16/2020 02 :27:00 PM [facility] I63.9 Cerebral infarction, unspecified Cerebral infarc tion, unspecified Diagnosis 04/09/2020 05:29:00 PM [facility] stroke stroke Diagnosis 04/09/2020 05:29:00 PM [facility] [id number] Personal history of nicotine dependence Personal history of nicotine dependence Diagnosis 04/09/2020 11:42:00 AM [facility] I6340 Cerebral infarction due to embolism of u nspecified cerebral artery Cerebral infarction due to embolism of unspecified cerebral artery Diagnosis 04/09/2020 11:42:00 AM [facility] R202 Paresthesia of skin Paresthesia of skin Diagnosis 0 04/09/2020 11:42:00 AM [facility] R519 Headache, unspecified Headache, unspecified Diagnosis 03/29/2020 11:40:00 AM [facility] H532 Diplopia Diplopia Diagnosis 03/29/2020 11:40:00 AM [facility] R42 Dizziness and giddiness Dizziness and giddiness Diagno sis 03/29/2020 11:40:00 AM [facility] M54.31 Sciatica, right side Sciatica, right side Diagnosis 01/04/2020 09:22:55 PM [facility] M43.17 Spondylolisthesis, lumbosacral region Sp ondylolisthesis, lumbosacral region Diagnosis 01/04/2020 09:22:55 PM [facility] M6281 Muscle weakness (generalized) Muscle weakness (general ized) Diagnosis 01/04/2020 04:23:00 PM [facility] M545 Low back pain Low back pain Diagnosis 01/04/2020 04:23:00 PM [facility] [id number] Severe bipolar disorder with psychotic f eatures Severe Bipolar Disorder with Psychotic Features Problem 06/16/2020 12:00:00 AM EDT MARJORIE ([facility]) [id number] Severe bipolar disorder with psychotic f eatures Severe Bipolar Disorder with Psychotic Features Problem 06/16/2020 12:00:00 AM EDT MARJORIE ([facility]) [id number] Gastroesophageal reflux disease Gastroesophageal Reflux Disease Problem 04/13/2020 12:00:00 AM EST MARJORIE ([facility]) [id number] Chronic obstructive lung disease Chronic Obstruc tive Lung Disease Problem 04/13/2020 12:00:00 AM EST MARJORIE ([facility]) [id number] Asthma Asthma Problem 04/13/2020 12:00:00 AM ES Kelly MARJORIE ([facility]) [id number] Gastroesophageal reflux disease Gastroesophageal Reflux Disease Problem 04/13/2020 12:00:00 AM EST MARJORIE ([facility]) [id number] Chronic obstructive lung disease Chronic Obstruc tive Lung Disease Problem 04/13/2020 12:00:00 AM EST MARJORIE ([facility]) [id number] Asthma Asthma Problem 04/13/2020 12:00:00 AM ES T MARJORIE ([facility]) [id number] Gastroesophageal reflux disease Gastroesophageal Reflux Disease Problem 04/13/2020 12:00:00 AM EST MARJORIE ([facility]) [id number] Chronic obstructive lung disease Chronic Obstruc tive Lung Disease Problem 04/13/2020 12:00:00 AM EST MARJORIE ([facility]) [id number] Asthma Asthma Problem 04/13/2020 12:00:00 AM ES T MARJORIE ([facility]) [id number] Gastroesophageal reflux disease Gastroesophageal Reflux Disease Problem 04/13/2020 12:00:00 AM EST MARJORIE ([facility]) [id number] Chronic obstructive lung disease Chronic Obstruc tive Lung Disease Problem 04/13/2020 12:00:00 AM EST MARJORIE ([facility]) [id number] Asthma Asthma Problem 04/13/2020 12:00:00 AM ES Kelly AMADOR ([facility]) [id number] Relapsing remitting multiple sclerosis R elapsing Remitting Multiple Sclerosis Problem 04/09/2020 12:00:00 AM EUGENIO [facility] ([facility] [facility] [id number] Relapsing remitting multiple sclerosis R elapsing Remitting Multiple Sclerosis Problem 04/09/2020 12:00:00 AM EST MARJORIE ([facility]) [id number] Relapsing remitting multiple sclerosis R elapsing Remitting Multiple Sclerosis Problem 04/09/2020 12:00:00 AM EST MARJORIE ([facility]) [id number] Relapsing remitting multiple sclerosis R elapsing Remitting Multiple Sclerosis Problem 04/09/2020 12:00:00 AM EST MARJORIE ([facility]) [id number] Postoperative pain Postoperative Pain Problem 05/2019 12:00:00 AM EST MARJORIE ([facility]) [id number] Postoperative pain Postoperative Pain Problem 05/2019 12:00:00 AM EST MARJORIE ([facility]) [id number] Postoperative pain Postoperative Pain Problem 05/2019 12:00:00 AM EST MARJORIE ([facility]) [id number] Postoperative pain Postoperative Pain Problem 05/2019 12:00:00 AM EST MARJORIE ([facility]) [id number] Postoperative pain Postoperative Pain Problem 05/2019 12:00:00 AM EST MARJORIE ([facility]) [id number] Postoperative pain Postoperative Pain Problem 05/2019 12:00:00 AM EST MARJORIE ([facility]) G89.18 Post-op pain Post-op pain [id number] 01/05/2020 12:00:00 A M EST [facility] Z63.4 Disappearance and of family member UNCOMPLICATED BEREAVEMENT 11/05/2019 09:00:34 AM EDT [facility] Z65.1 Imprisonment and other incarceration IMPRISONMEN T OR OTHER INCARCERATION 11/05/2019 09:00:34 AM EDT [facility] F43.8 Other reactions to severe stress TRAUMA- AND STRESSOR-RELATED DISORDER, OTHER SPECIFIED 11/05/2019 09:00:34 AM EDT [facility] 300.01 PANIC DISORDER PANIC DISORDER 11/05/2019 09:00: 34 AM EDT [facility] [id number] Panic disorder Panic Disorder Problem 11/05/2019 12:00: 00 AM EDT [facility]) [id number] Bereavement Bereavement Problem 11/05/2019 12:00:00 AM EDT [facility]) [id number] Imprisonment Imprisonment Problem 11/05/2019 12:00:00 A M EDT [facility]) [id number] Stress and adjustment reaction Stress and Adjustment R eaction Problem 11/05/2019 12:00:00 AM EDT [facility]) [id number] Clinical finding Clinical Finding Problem 11/05/2019 12 :00:00 AM EDT [facility]) [id number] Panic disorder Panic Disorder Problem 11/05/2019 12:00: 00 AM EDT [facility]) [id number] Bereavement Bereavement Problem 11/05/2019 12:00:00 AM EDT [facility]) [id number] Imprisonment Imprisonment Problem 11/05/2019 12:00:00 A M EDT [facility]) [id number] Clinical finding Clinical Finding Problem 11/05/2019 12 :00:00 AM EDT [facility]) [id number] Panic disorder Panic Disorder Problem 11/05/2019 12:00: 00 AM EDT [facility]) [id number] Bereavement Bereavement Problem 11/05/2019 12:00:00 AM EDT TOWANDA ([facility]) [id number] Imprisonment Imprisonment Problem 11/05/2019 12:00:00 A M EDT [facility]) [id number] Clinical finding Clinical Finding Problem 11/05/2019 12 :00:00 AM EDT [facility]) [id number] Panic disorder Panic Disorder Problem 11/05/2019 12:00: 00 AM EDT [facility]) [id number] Bereavement Bereavement Problem 11/05/2019 12:00:00 AM EDT [facility]) [id number] Imprisonment Imprisonment Problem 11/05/2019 12:00:00 A M EDT [facility]) [id number] Panic disorder Panic Disorder Problem 11/05/2019 12:00: 00 AM EDT [facility]) [id number] Bereavement Bereavement Problem 11/05/2019 12:00:00 AM EDT [facility]) [id number] Imprisonment Imprisonment Problem 11/05/2019 12:00:00 A M EDT [facility]) [id number] Stress and adjustment reaction Stress and Adjustment R eaction Problem 11/05/2019 12:00:00 AM EDT TOWANDA ([facility]) Surgeries/Procedures Procedure Description Date Indications Data Source(s) BLOOD COUNT COMPLETE AUTO&AUTO DIFRNTL WBC COUNT <td>C BC AND DIFFERENTIAL</td><td>Routine</td><td>04/12/2020 5:50 AM EST</td><td></td><td> </td> 04/12/2020 05:50:00 AM [facility] BASIC METABOLIC PANEL CALCIUM TOTAL <td>BASIC METABOLI C PANEL</td><td>Routine</td><td>04/12/2020 5:50 AM EST</td><td></td><td> </td> 04/12/2020 05:50:00 AM [facility] NEUTROPHIL CYTO AB COMMENT <td>NEUTROPHIL CYTO AB COMMENT</td><td>Routine</td><td>04/10/2020 4:44 PM EST</td><td></td><td> </td> 04/10/2020 04:44:00 PM [facility] SYPHILIS IGG/IGM SCREEN W/REFLEX TO RPR <td>SYPHILIS I GG/IGM SCREEN W/REFLEX TO RPR</td><td>Routine</td><td>04/10/2020 4:44 PM EST</td><td></td><td> </td> 04/10/2020 04:44:00 PM [facility] GAMMAGLOBULIN IGA IGD IGG IGM EACH <td>IMMUNOGLOBULIN ASSAY</td><td>Routine</td><td>04/10/2020 4:44 PM EST</td><td></td><td> </td> 04/10/2020 04:44:00 PM [facility] DNA ANTIBODY PICAYUNE/DOUBLE STRANDED <td>APOLINAR SPECIFICITY</td><td>Routine</td><td>04/10/2020 4:44 PM EST</td><td></td><td> </td> 04/10/2020 04:44:00 PM [facility] IAAD EIA HIV-1 AG W/HIV-1&HIV-2 ANTBDY SINGLE <td>HIV AG AB COMBO SCREEN</td><td>Routine</td><td>04/10/2020 4:44 PM EST</td><td></td><td> </td> 04/10/2020 04:44:00 PM [facility] FLUORESCENT NONNFCT AGT ANTB TITER EA ANTIBODY <td>SUZIE TROPHIL CYTOPLASMIC ANTIBODY</td><td>Routine</td><td>04/10/2020 4:44 PM EST</td><td></td><td> </td> 04/10/2020 04:44:00 PM [facility] THROMBOPLASTIN TIME PARTIAL PLASMA/WHOLE BLOOD <td>HEX AGONAL PHASE PHOSPHO NEUT</td><td>Routine</td><td>04/10/2020 4:44 PM EST</td><td></td><td> </td> 04/10/2020 04:44:00 PM [facility] ACUTE HEPATITIS PANEL <td>HEPATITIS PANEL, ACUTE</td><td>Routine</td><td>04/10/2020 4:44 PM EST</td><td></td><td> </td> 04/10/2020 04:44:00 PM [facility] CARDIOLIPIN ANTIBODY EACH IG CLASS <td>CARDIOLIPIN ANT IBODY, IGA</td><td>Routine</td><td>04/10/2020 4:44 PM EST</td><td></td><td> </td> 04/10/2020 04:44:00 PM [facility] 25 HYDROXY INCLUDES FRACTIONS IF PERFORMED <td>VITAMIN D 25 HYDROXY, TOTAL</td><td>Routine</td><td>04/10/2020 4:44 PM EST</td><td></td><td> </td> 04/10/2020 04:44:00 PM [facility] HEPATITIS B SURF ANTIBODY HBSAB <td>HEPATITIS B SURFAC E ANTIBODY</td><td>Routine</td><td>04/10/2020 4:44 PM EST</td><td></td><td> </td> 04/10/2020 04:44:00 PM [facility] BETA 2 GLYCOPROTEIN I ANTIBODY EACH <td>FLJT-4-ZESMBSE OTEIN IGA</td><td>Routine</td><td>04/10/2020 4:44 PM EST</td><td></td><td> </td> 04/10/2020 04:44:00 PM [facility] ANTIBODY BORRELIA BURGDORFERI LYME DISEASE <td>LYME IG G, IGM ANTIBODY</td><td>Routine</td><td>04/10/2020 4:44 PM EST</td><td></td><td> </td> 04/10/2020 04:44:00 PM [facility] C-REACTIVE PROTEIN <td>INFLAMMATORY C-REACTIVE PROTEIN (CRP)</td><td>Routine</td><td>04/10/2020 4:44 PM EST</td><td></td><td> </td> 04/10/2020 04:44:00 PM [facility] ANTINUCLEAR ANTIBODIES APOLINAR <td>APOLINAR</td><td>Routine</td ><td>04/10/2020 4:44 PM EST</td><td></td><td> </td> 04/10/2020 04:44:00 PM [facility] PROTEIN XCPT REFRACTOMETRY SERUM PLASMA/WHL BLD <td>MI OTEIN ELECTROPHORESIS WITH SERUM TOTAL PROTEIN</td><td>Routine</td><td>04/10/2020 4:44 PM EST</td><td></td><td> </td> 04/10/2020 04:44:00 PM [facility] HOMOCYSTEINE <td>HOMOCYSTEINE, SERUM</td> <td>Routine</td><td>04/10/2020 4:44 PM EST</td><td></td><td> </td> 04/10/2020 04:44:00 PM [facility] FOLIC ACID SERUM <td>FOLATE</td><td>Routine</ td><td>04/10/2020 4:44 PM EST</td><td></td><td> </td> 04/10/2020 04:44:00 PM [facility] CYANOCOBALAMIN VITAMIN B-12 <td>VITAMIN B12</td><td>Ro utine</td><td>04/10/2020 4:44 PM EST</td><td></td><td> </td> 04/10/2020 04:44:00 PM [facility] HEPATIC FUNCTION PANEL <td>HEPATIC FUNCTION PANEL A</td><td>Routine</td><td>04/10/2020 4:44 PM EST</td><td></td><td> </td> 04/10/2020 04:44:00 PM [facility] MRI SPINAL CANAL CERVICAL W/O & W/CONTR MATRL <td>MR C ERVICAL SPINE WITH AND WITHOUT CONTRAST [id number]</td><td>Routine</td><td>04/10/2020 2:44 PM EST</td><td></td><td> </td> 04/10/2020 02:44:00 PM [facility] MRI BRAIN BRAIN STEM W/O &W/CONTRAST MATERIAL <td>MR B RAIN WITH AND WITHOUT CONTRAST [id number]</td><td>Routine</td><td>04/10/2020 2:44 PM EST</td><td></td><td> </td> 04/10/2020 02:44:00 PM [facility] BLOOD COUNT COMPLETE AUTO&AUTO DIFRNTL WBC COUNT <td>C BC AND DIFFERENTIAL</td><td>Routine</td><td>04/10/2020 3:25 AM EST</td><td></td><td> </td> 04/10/2020 03:25:00 AM [facility] BASIC METABOLIC PANEL CALCIUM TOTAL <td>BASIC METABOLI C PANEL</td><td>Routine</td><td>04/10/2020 3:25 AM EST</td><td></td><td> </td> 04/10/2020 03:25:00 AM [facility] GLUCOSE QUANTITATIVE BLOOD XCPT REAGENT STRIP <td>POCT GLUCOSE, DOCKED</td><td>Routine</td><td>04/09/2020 7:45 PM EST</td><td></td><td> </td> 04/09/2020 07:45:00 PM [facility] PROTHROMBIN TIME <td>PROTIME INR</td><td>Rout ine</td><td>04/09/2020 7:43 PM EST</td><td></td><td> </td> 04/09/2020 07:43:00 PM [facility] BLOOD COUNT COMPLETE AUTO&AUTO DIFRNTL WBC COUNT <td>C BC AND DIFFERENTIAL</td><td>Routine</td><td>04/09/2020 7:43 PM EST</td><td></td><td> </td> 04/09/2020 07:43:00 PM [facility] THYROID STIMULATING HORMONE TSH <td>TSH</td><td>Routin e</td><td>04/09/2020 7:43 PM EST</td><td></td><td> </td> 04/09/2020 07:43:00 PM [facility] HEMOGLOBIN GLYCOSYLATED A1C <td>HEMOGLOBIN A1C</td><td>Routine</td><td>04/09/2020 7:43 PM EST</td><td></td><td> </td> 04/09/2020 07:43:00 PM [facility] LIPID PANEL <td>LIPID PANEL</td><td>Rout ine</td><td>04/09/2020 7:43 PM EST</td><td></td><td> </td> 04/09/2020 07:43:00 PM [facility] COMPREHENSIVE METABOLIC PANEL <td>COMPREHENSIVE METABO LIC PANEL</td><td>Routine</td><td>04/09/2020 7:43 PM EST</td><td></td><td> </td> 04/09/2020 07:43:00 PM [facility] EKG 12-LEAD - CMAXX REPORT <td>EKG 12-LEAD - CMAXX REPORT</td><td></td><td>04/09/2020 7:25 PM EST</td><td></td><td></td> 04/09/2020 07:25:48 PM EST [facility] EKG 12-LEAD - CMAXX REPORT <td>EKG 12-LEAD - CMAXX REPORT</td><td></td><td>04/09/2020 7:25 PM EST</td><td></td><td></td> 04/09/2020 07:25:48 PM [facility] EKG 12-LEAD <td>EKG 12-LEAD</td><td>Rout ine</td><td>04/09/2020 7:25 PM EST</td><td></td><td></td> 04/09/2020 07:25:48 PM [facility] EKG 12-LEAD <td>EKG 12-LEAD</td><td>Rout ine</td><td>04/09/2020 7:25 PM EST</td><td></td><td> </td> 04/09/2020 07:25:48 PM [facility] US GUIDANCE NEEDLE PLACEMENT RS&I <td>IR US GUIDED NEE DLE PLACEMENT</td><td>Routine</td><td>01/06/2020 4:00 PM EST</td><td></td><td> </td> 01/06/2020 09:00:00 PM EST [facility] PROTHROMBIN TIME <td>PROTIME-INR</td><td>STAT </td><td>01/06/2020 11:52 AM EST</td><td></td><td> </td> 01/06/2020 04:52:00 PM EST [facility] BLOOD COUNT COMPLETE AUTO&AUTO DIFRNTL WBC COUNT <td>C BC AND DIFFERENTIAL</td><td>Routine</td><td>01/06/2020 6:23 AM EST</td><td></td><td> </td> 01/06/2020 11:23:00 AM EST [facility] MRI SPINAL CANAL LUMBAR W/O &W/CONTR MATRL <td>MRI LUM BAR SPINE W WO CONTRAST</td><td>Routine</td><td>01/05/2020 5:46 PM EST</td><td></td><td> </td> 01/05/2020 10:46:56 PM EST [facility] RADEX SPINE LUMBOSACRAL 2/3 VIEWS <td>XR LUMBAR SPINE AP AND LATERAL</td><td>Routine</td><td>01/05/2020 1:41 AM EST</td><td></td><td> </td> 01/05/2020 06:41:17 AM EST [facility] COVID/FLU AB/RSV PCR <td>COVID/FLU AB/RSV PCR</td ><td>STAT</td><td>01/04/2020 10:09 PM EST</td><td></td><td> </td> 01/05/2020 03:09:00 AM EST [facility] BLOOD COUNT COMPLETE AUTO&AUTO DIFRNTL WBC COUNT <td>C BC AND DIFFERENTIAL</td><td>STAT</td><td>01/04/2020 10:09 PM EST</td><td></td><td> </td> 01/05/2020 03:09:00 AM EST [facility] COMPREHENSIVE METABOLIC PANEL <td>COMPREHENSIVE METABO LIC PANEL</td><td>STAT</td><td>01/04/2020 10:09 PM EST</td><td></td><td> </td> 01/05/2020 03:09:00 AM EST [facility] Results ID Date Data Source [id number] 09/25/2020 12:45:00 PM EDT [facility] Name Value Range Interpretation Code Description Data Adriana rce(s) Supporting Document(s) SARS coronavirus 2 RNA [Presence] in Res piratory specimen by BINA with probe detection NEGATIVE [facility] This lab was ordered by [facility] a nd reported by [facility]. ID Date Data Source [id number] 07/23/2020 07:56:34 AM EDT [facility] Name Value Range Interpretation Code Description Data Adriana rce(s) Supporting Document(s) Progress Note [facility] MAIZLv7dYjBQKpUp02/FQAiqULRjz8TwDUveCHo8COymMAIqV8JeVEZ4cI0wUMT2LJbUJsGqEpZhCuN0 m [file] pCcCRL98+plEXwJ/chain maker machine/iTSOfhVc2Zg3SxO74EjvRH9e7EX8w4zm0JZP2+Ta3VhMc1BT06deLsNLJkE [file] AgICAgICAgICAgICAgICAgICAgICAgICAgICAgICAgICAgICAgICAgICAgICAgICAgICAgICAgICAgIC AgICAgICAgICAgICAgICAgICAgICAgICANCiAgICAg ICAgICAgICAgICAgICAgICAgICAgICAgICAgICAgICAgICAgICAgICAgICAgICAgICAgICAgICAgICAg ICAgICAgICAgICAgICAgICAgICAgICAgICAgICAgICAgICANCiAgICAgICAgICAgICAgICAgICAgICAg ICAgICAgICAgICAgICAgICAgICAgICAgICAgICAgIC AgICAgICAgICAgICAgICAgICAgICAgICAgICAgICAgICAgICAgICAgICAgICANCiAgICAgICAgICAgIC AgICAgICAgICAgICAgICAgICAgICAgICAgICAgICAgICAgICAgICAgICAgICAgICAgICAgICAgICAgIC AgICAgICAgICAgICAgICAgICAgICAgICAgICANCiAg ICAgICAgICAgICAgICAgICAgICAgICAgICAgICAgICAgICAgICAgICAgICAgICAgICAgICAgICAgICAg ICAgICAgICAgICAgICAgICAgICAgICAgICAgICAgICAgICAgICANCiAgICAgICAgICAgICAgICAgICAg ICAgICAgICAgICAgICAgICAgICAgICAgICAgICAgIC AgICAgICAgICAgICAgICAgICAgICAgICAgICAgICAgICAgICAgICAgICAgICAgICANCiAgICAgICAgIC AgICAgICAgICAgICAgICAgICAgICAgICAgICAgICAgICAgICAgICAgICAgICAgICAgICAgICAgICAgIC AgICAgICAgICAgICAgICAgICAgICAgICAgICAgICAN CiAgICAgICAgICAgICAgICAgICAgICAgICAgICAgICAgICAgICAgICAgICAgICAgICAgICAgICAgICAg ICAgICAgICAgICAgICAgICAgICAgICAgICAgICAgICAgICAgICAgICANCiAgICAgICAgICAgICAgICAg ICAgICAgICAgICAgICAgICAgICAgICAgICAgICAgIC AgICAgICAgICAgICAgICAgICAgICAgICAgICAgICAgICAgICAgICAgICAgICAgICAgICANCiAgICAgIC AgICAgICAgICAgICAgICAgICAgICAgICAgICAgICAgICAgICAgICAgICAgICAgICAgICAgICAgICAgIC AgICAgICAgICAgICAgICAgICAgICAgICAgICAgICAg ICANCjw/mKKgZ2cfpEIlaaS0O2fdRw9MVo4IJV7mp4SwNXAxFFckqyNqAugEVbGuOSQvEwsNXoo6MPdf FN6DwHKzE2ToK7GiMDoxNX0SHCOqXFLqwQBkHCMvIGWsVlT0DCHlLGncZS8XpQXoHOyjKPFqIXLkIyCu IFIgOSAwIFIgMTEgMCBSIDEzIDAgUiAxNSAwIFIgMT ycWJBGQWD5NTWrXhGtDWWtIZFjGxGlEUEURTS7YKImKvGkRdQxTWIlLcfoRBYEXG8ZVgHfX7JmbT12VF EzDQo+Hw4OJH5yn0AlGPh9CTAgLQ2pgn9PSEhBWaKrX5SbezZ2MXVtHMGkNi1APXEiGWLvlDU3GJMaKD WEJvDiA7EguR07QGLAEk9+DQplbmRvYmoNCjUwIDAg o4JiDAz7GO9OUCIbLQt4yBRyHADuS1Ene2VwBg48WORiPymxHMTib1OpzKLMKBHxMMLnhmCjUC5WLYA2 UPShSLPpZaFjJSTvDrqhPQPZWRnNTiDlH5Cfg8HuWaL8VWMzMeGhORlcMGIhNbX1YA70kFbnTU5GKXBc AKNsSL01GAZ3JBMyFh9AHe9JSiIfNF9pph7NRPVhTX RzAavXRrg0UMjvVQ9RmAFvM7FqeNRcg0kHWzBgN7OLXZN4YAApRa0XECBpKhEoBDDdTJocUG9wEWOqJP CXvPbgciL4EY1PFC5ztnQbCI0LBdJfDr9iJq7BWuAkQ9JmR7FvWPXfXXSULEdaBL0QWSpjKI0wWH3Px4 AVdQPboS2ddy3OVTAzKEPoQszewo5HMlcnM0L6lDfd WRTwCKtbFYQTJAnzYS2UEWJnHNX7JOE9BPOoZGLDZtLcG55cUL1BZ7Roi55hAxE9UPIaKvZbRVusTG57 cVwfglJhsKIxjWzdZL5EQl0+WTgvgfNvRqqIInkiNNQKXmUeWKAAIuQiHQAxGJVuYDCeTaD8IaBwTv6O HHJfOVYcPVLvMbPaZWBkEYKzHBpvJEDuVGByUCR4FY GeQLKrWZ3TFpFhJPDvKGG0ECwgOJUdRISeje4SFICiSMSlAKT6UaTeAVPrDGCuKYwoGNOgNCYvZKw5YN KsWYBfDD0FXnQcFFKbERNzGkqcIFGmCMYcnl1QFAIvLWSaAkK2XFQaSYPcWAXpSLdbIYTcVAX0ZlE3NP XiTFZbZJ8CQmYbXHYgDCpfTnJeRQWpWIGleu1PCMIu HXRtLOWrOLZuJWKbHPGySTgzWGAnQSWkQHV1QSKoEVRfEX4JVgWjLNGeFDG4DyAzGMEgVHHzwe3ATHVj YRKlDgG5EPYnRIObHDEzBQinUJVvKKUjDQX7HQKmOYHwEA8GGgAiDYWoILQzLLIrSCJyWWPtlz6AQWEt QZGkHcJvFWQaNJKnQUWaCCecHBMjZOW9Lyn4FOMxKB JzRN1LBbTuDWBjQYj0GJCbMCLyLBMlin0HZOFaDLMvAYR8RIPiHDZuSVZaQJqtOJBhTRRnGqunMRCyLH YiRK2KIsVcVWMcBkJ0KyScQCWfVQSudv9RKDVvYXErJcBeESAoIDGrZRWeFQhzTCLiEPT5VDz1QTUgKH LrYP4KAdZyJLQbFcQvKXGgISFcGFFxwb4IUOIzJGLg GTM5URAxUZBgREDeHEjjOOCjXFK0XaD1QTHfRTXqPK1GUfOnYMUsBqW2QTnhYXJeQIPfoi8THOEkMHDu MCe4XaNgDYAdGYOtCRocZCSoHSC3JvZ3OAEuXVZjUB5QUaIfEUMgCqG3UwQrHZZhXAEnyj2FOFEeXLHb QlYyCETvGRHhQZSmCUsdQINgQHC4WiG3AJGeOGEhUU 7ASbDkNFBwPiE0ZQYuGOWtIHBfww6HYIUdEVBqJya4HYAsIEBoEQXtSFidIKYuJZT7LWPtHTVfWYLuWT 5XAxEjWLFiJllwDSYkKKZkSPIsna0BPMGsSCX3MIY8ZUGwZTCsGMMiLCtlXPZrJRO6QWK9XOGiGNKzXA 3LOkTyCPDpAQWuVNGhNQWcNUEsdj9HTVIbBBL9RMT5 EWUyDGScXDDbKWjlZPWdVFTyJBUyWHBbBHPrZG4UMrMwLHOmMMN0DSTiNCIaVXHvie3VQELiKPL5DLXi LHXpGLQtZWAmMWucUPYsPUYvSVD3CTGdKSEcRK6KNkOdATUsBOE2XVZlNORgOUYbsn7XNIPyOWD1Sivt DSUiCAWlNHZuCMqyABEdIXBzIUC0RRJaJMStGB0XTz RwYRVfZGI7UVxwWMPiPTBbjo4HHSEoHUF6CDU9CSSmWEHxNCVwDLyuEBNfRXE5XFHcRKFpWJEeIO7PHn GtHLAdECUaQEWdTDUaMWNyrf3OqNDxyIcmqw8GJLaASe5GgUnyVHQpEJbxVk9vgXC0QKRjUNKHZi3Zfy QtKLEqGIYKLUbhVEYlRCG1NUWiBTHfOUJ6YDPpKPNf HDKcCtBmGFE5B0W9OoTsRkE1CNT7DPMgBkF0PxbvBwB9FHF4FaHrYSSxQYwaWbH9W1H+CS2kPLw+Pg0K l7QfmtM8txOeHBc0BJDbPv0CUYUJL2RYRl== ID Date Data Source [id number] 05/20/2020 07:04:00 PM EDT [facility] Name Value Range Interpretation Code Description Data Adriana rce(s) Supporting Document(s) SARS-CoV-2 (COVID 19) NEGATIVE - SARS-CoV-2 (COVID19) [facility] This lab was ordered by [facility] a nd reported by [facility]. ID Date Data Source [id number] 05/08/2020 05:57:13 PM EDT [facility] Name Value Range Interpretation Code Description Data Adriana rce(s) Supporting Document(s) Progress Note [facility] VVIBXz8nIwFGLlRk44/PHPbvMUKfr8ItNHsjCUp9GGfwTEEeC8LtERZ3lR9aSDG0KHgUFrEgNyPsMKZh lbm [file] ICAgICAgICAgICAgICAgICAgICAgICAgICAgICAgICAgICAgICAgICAgICAgICAgICAgICAgICAgICAg HIYaGBWjNAIaQLVsMZ4FMFZyVBZnAIIyGFHyEZKfDD AgICAgICAgICAgICAgICAgICAgICAgICAgICAgICAgICAgICAgICAgICAgICAgICAgICAgICAgICAgIC DqHYOvHASxETRwCKSmRYPlGIKwJCEbBS6VJCDqXJRzIUJrUUAtMJLgCSScYOQiMVQrRZQnRKEhKREoRR AgICAgICAgICAgICAgICAgICAgICAgICAgICAgICAg PJPjEQJfNJGtJKIqYYBfOBYfIJPyKUByIAEqQPBrVIQzPI5POJPmIUHeZFFkESMmTZQcVHUjZFLmYJPw ICAgICAgICAgICAgICAgICAgICAgICAgICAgICAgICAgICAgICAgICAgICAgICAgICAgICAgICAgICAg SVHdPPFjSLScFFEwLNOaTZ6VKTTnHNRuNXFtXNEoLZ AgICAgICAgICAgICAgICAgICAgICAgICAgICAgICAgICAgICAgICAgICAgICAgICAgICAgICAgICAgIC CiWHToABHsMVRtJVMtKDKxWCMuSTQnXVEbSW9VNFEdCKBvAZIcGEBqAZBgIUKeMDUsFQXzXHPaBMJuYC AgICAgICAgICAgICAgICAgICAgICAgICAgICAgICAg TIAoHBSlQGJnHOUtBXXnFJJmCXIwQIKvLAGhQJTkTYBdQROtPV8QBVLlQZBhJSSlZQIlQSRbMEMsHATr ICAgICAgICAgICAgICAgICAgICAgICAgICAgICAgICAgICAgICAgICAgICAgICAgICAgICAgICAgICAg MBOcYBCiOEZsDNSaKRIgIZHtGQ9OBAUpVBIlTYCvOB AgICAgICAgICAgICAgICAgICAgICAgICAgICAgICAgICAgICAgICAgICAgICAgICAgICAgICAgICAgIC DwKCUiEQPmXPDoVXZnVZEePHDvIGRuUQYkFJMjVT0AETHmYXVcIXShFCXwOKOhOGCvMDKvMENfUGGnQE AgICAgICAgICAgICAgICAgICAgICAgICAgICAgICAg AGOnADLjITYmVTDpFKLtGPTyHCWfMLCuPWDnMWTbSXFvKTAsADXnVG4RZPLgEAHsYLIhHLXyPWAbUERp ICAgICAgICAgICAgICAgICAgICAgICAgICAgICAgICAgICAgICAgICAgICAgICAgICAgICAgICAgICAg VPUyVJZmWIYeCEKgUSTqYRArLROlVX7CQM70cUZuq9 Z1DYVrYU9immu/Sl5EPQwkhzFmaUEdKE3UYxWgJJ5aak8ASjErLR9vhe7NQTgWMjHbD4O9sCRhOWQgMC UZMaFyY11jRDilYu57WMrlIIRgNzUcPBh4Vl1HXtJwL0jkCFLqXxE0AZFgKrV2TZSgXcO9EZYxCwSwRO PtJFHrZDDsGWUILID3FDGsGfHxCcMwASGwIPwyOGRY WJHbHZFjNmLrYrQpFEPjWkGpTAGYSNY5LREiDlIoHNMsCDEnCzMjBAXHKP3KQvQwH6PkuN83RYN0HXv+ Vx0BRO5ev9JgOVs1WTPeUU9ugr0JJHoIKnWzN6OdbxB0ICXaNDWpPp7TSBGdQPJloPQ4EnFbJVXSTwZv K9NckW57AWCEGs5+WKnvqgVpDxlDUnRxHWJsi7TbWL x8PF9BFZGsEXj7aJKlZSBzG1Yog2XwCw82FIPgJevlR10zOHicCXBTE9frSKvzSD1PWZF6TGEkLaPgMv ZcZMDzMutkMPHFTNmSHqSqX6Zpk7HjAjE9KKOdUlKlPIvxWPSvJyR2QA84oTqrKT3XQYCkEOPrOO18HR RzOZVaFi3PUo9CVlTqLK9uay0KVAFhIMTlScbPNkm2 BDafBP7KzSNjY8CykRUlp9aEJnYiG9PVVRR5ECXpRg1UICEiGnHxARTqYWovWL3iCUNjTGQAnBplyyY9 NV8GWC4kmoNnAY6IKiWrGl7kXq4FXhPwS9XgG8WlXZWnZVMMLQdtDB3LYMdbWQ7oSM3Io1HXgIHuwO0t np1KDQSrSJKvQifnsf0TLkinW1H2tNxzQEToKKUxDQ LSEGobMK0ZQPByDQC0EGO6HXZkPBPIGcLzR84eRC8TF4Qks42uTlA3MRWxZfXrKLxtYM03mDnfneAxfP MwiDxaVA9XYi8+UBaahzPsXruTBirsZTNKIhPoYFGLFqNyKSFcPDUqIMKdNvH6XkRbFb5DSCCzTFFjXY HxUpSfSSCkSXWkSXnuJJTqWZRcBUQ0KUWzMXCqDS0V DpYsHIKbKES5IZozTUSjQAOsgu7HOFJrXUGbDXB1UwAaYGZzLCElGAfyVYWvVGUgRuAkUMBqVOZxXM5J CmFxOLLaEWE0FXLyXDBjZDDhty5CCFOjNXVhUFR5DhTwKMSmZTNbFZfgQOWvCTG9KvjwUWKnPHVaFU5K FzTaVILrGBt8IOHjQQGrVHKpnf5WKNOoFCVsOiz7Aq FgQKUnAPRsVFjwLDIwZLD1WRT9HLOwHTCaDA9KTnBfEMFqONHdHVFuPDRnWUPtbz3ILUCwWSYoByS9QR UnXPSjNIWdFQixYHHlNEGgNnEzYGLdOSVfQF6KJjVuQKEuIGP5HLHpEUCzQXZbml2VBJDfHGHmDETzZA LsGRHyYPRnSQxfPBDgXFI5Tqt7WHDdPBNlKJ8BVfIx TKRlUVI6HADeOXRxWYDfxc4DSHByIWXmHZi0PfLiHCObARUfBBpzXCWjRFI1LFSgANOaGCNpXO3AExQu IMCfMkAvUvXyYKFoAOZkoz0IPINnPFKlWKVsKHQhUOTmYZGuMYblHEWwKKKkVDItWVMtCYHzNQ9RXnAy JUFaOaC0FEQjMHFgEOThct3IWHVrLILnGAohIUPnKZ BeJSHzALqnNNKjDHV1MMVqQULrLXGzQO1RBrLcHVIhPhs5TkvnVNSaEXHfte1PMWQqIGUwEInpFwOoNJ KeNFVoNBpbCUGeIIVbEei1ZJWvBVIzVH6NGyUtVWRcHfB5FEHvAGQhOIXozs5ERUDfJMAcBZO8RfOnUJ HcLMJkJZyzWGCxJBY1Qmo9IGApCCRaKO8UIuVxJSHf MzVgFZkyIUVzUEWame7SZQEfGWOhCNS2CfRhUPNlLXCyGVanQRUiNBO5KyG8YNFgBAKmUI9GUaWcSFCc MsZ7OZgcIZXuDOHypu1MIMPqZOYfZbw0DNQgVWKfQTYqOWnyIGUmOPF5OZb9XOEqOJLbJU8APbWvZUBh FNw6WRtiZCMwRUOlwt0NUVPiBUK2ILdqHbVcYIXiBI KtWGoqEHDjURI0ALMpRZInUNBhMO3LHsWeLPLgNAoqTVIkIABgNFArne6MGUFfXCF1WDVuAHXaHHHpPR DzQGsrSYHgQPDyUdtbOYAgHYGwZD5VKfXcSYJhCVX5DaTuWYEjRGSuis5ZDQWlDCW1GEaaNMLkCXCiAM OnHVgeRIXpJLOnIdj8SSZmZMGfYD3RRhJnNEYcJIT3 NjLbHCHyECLtfo3ZKWKjFPK2FeK9BQMoNADqQZDxOOkuPUNkPGUlIMq9ZSMeEZPnJR9OJqNnYAIpHPWt IUBbEJWeDITmft0JKHCfMJG4DWR0OpNsEONlAWSiUCanYYJzZTL0CpT8QLFbNXXqUP5QPmFtMCsqKPAP Ebi9RImgR8s2NVP8HU1IE4Apd2FqHPExDIEHYOdbYR 3iqhUtALNdTf8RB2aLIon6CRJfXTXwEBnnFZd3GJl0TcN9DqK7N7BeSHDhAcH6Ia8eZVI4CFRlEOO1JM ReKlLnQLJbXXwjTwwlHhH1ONUyLaI1EnUdGG5XSp8PDsC4JEH3jJJaDg6CQGM2SbkUSbPqZQ1BRGm= ID Date Data Source [id number] 04/24/2020 06:39:00 PM EDT [facility] Name Value Range Interpretation Code Description Data Adriana rce(s) Supporting Document(s) SARS coronavirus 2 RNA [Presence] in Res piratory specimen by BINA with probe detection NEGATIVE [facility] This lab was ordered by [facility] a nd reported by [facility]. ID Date Data Source [id number] 04/20/2020 09:59:00 [place] [address] RESPIRATORY CARE REPORT ==== ---------NAME------- NUMBER SEX AGE ADMIT DISC. XRAY# F/C TYPEMURPMAYELIN DELONTE Meyer [id number] M 34 04/19/20 04/19/20 [id number] X6B E/R DATE OF : 1985 M/R# [id number] #: [id number] TR-08 LOCATION: EMERGENCY DEPT EKG 47520 COMP LETE:04/19/20 23:07 AJ [id number] PHYSICIAN: IVAN KIRK Name Value Range Interpretation Code Description Data Adriana rce(s) Supporting Document(s) ID Date Data Source [id number] 04/20/2020 10:11:00 AM EDT [facility] [address] [place] [address] PHONE: [phone] FAX: [phone] Name .................. : JAUN Meyer Acct Number.................. : [id number] ROOM. ................. : TR-08 MR Number ................... : [id number] Stay type ............. : E/R Discharge Date......... ... : 04/19/20 Admit Date ......... : 04/19/20 Admit Phys .................... : IVAN KIRK Date of ....... : 1985 Family Phys ................... : JOHNSONST WANGI Phone .................. : [phone] Age ................................ : 34 Film# .................. .:[id number] Sex ................................. : M Unsigned transcriptions are preliminary reports and do not represent a medical or legal document CT HEAD W/O CONTRAST [id number] COMPLETE:04/19/20 21:44 KJE 6321 Reason(s): Altered Mental [...] By Maninder Luis M.D. , 04/20/20 10:11, [facility] Transcribe Initials: MELANIE , Transcribe Date: 04/20/20 01:16, Dictation Date: Copy for: EMERGENCY DEPT via modem Copy for: 710 MED REC DISCHARGED Page 1 of 1 Name Value Range Interpretation Code Description Data Adriana rce(s) Supporting Document(s) ID Date Data Source [id number] 04/20/2020 10:10:00 [place] [address] PHONE: [phone] FAX: [phone] Name .................. : JAUN Meyer Acct Number.................. : [id number] ROOM. ................. : TR-08 Number ................... : [id number] Stay type ............. : E/R Discharge Date......... ... : Admit Date ......... : 04/19/20 Admit Phys .................... : IVAN KIRK Date of ....... : 1985 Family Phys ................... : ALEX KEANE Phone .................. : [phone] Age ................................ : 34 Film# .................. .:[id number] Sex ................................. : M Unsigned transcriptions are preliminary reports and do not represent a medical or legal document CHEST PORTABLE [id number] COMPLETE:04/19/20 21:44 KJE 6320 Reason(s): overdose, AMS PORTABLE CHEST X-RAY: INDICATION: Overdose. FINDINGS: The cardiac and mediastinal silhouettes appear normal and the lungs are clear. The bones and soft tissues are normal. The upper abdomen is un remarkable. IMPRESSION: No acute disease identifiable. Electronically Reviewed and Signed By Maninder Luis M.D. , 04/20/20 10:10, NDY Transcribe Initials: DZ , Transcribe Date: 04/19/20 21:54, Dictation Date: Copy for: EMERGENCY DEPT via modem Copy for: 710 MED REC DISCHARGED Page 1 of 1 Name Value Range Interpretation Code Description Data Adriana rce(s) Supporting Document(s) ID Date Data Source [id number] 04/20/2020 09:09:00 AM EDT [facility] [address] [place] [address] PHONE: [phone] FAX: [phone] Name .................. : JAUN Meyer Acct Number.................. : [id number] ROOM. ................. : MR Number ................... : [id number] Stay type ............. : O/P Discharge Date......... ... : 04/16/20 Admit Date ......... : 04/16/20 Admit Phys .................... : POLY ZABALA Date of ....... : 1985 Family Phys ................... : ALEX KEANE Phone .................. : [phone] Age ................................ : 34 Film# .................. .:[id number] Sex ................................. : M Unsigned transcriptions are preliminary reports and do not represent a medical or legal document DOPPLER UNILATERAL VENOUS [id number] COMPLETE:04/16/20 18:23 BAW 6177 (REASON FOR PROCESS: [...] for: POLY ADHIKARI via fax Copy for: [address] [place] [address] REC Page 1 of 1 Name Value Range Interpretation Code Description Data Adriana rce(s) Supporting Document(s) ID Date Data Source [id number] 04/19/2020 08:39:00 PM EDT [facility] 1 OrderSheet [facility] Emergency Department [address] [place] [address] Phone #: ext- [phone] 04/19/2020 20:24 Patient: [...] Riccardo Katelyn M.D.;Troponin-T STAT 21:04/19/2020 21:06 Ivan Novak Riccardo Katelyn M.D.;TSH STAT 21:04/19/2020 21:06 Ivan Novak Riccardo Katelyn M.D.;Magnesium STAT 21:04/19/2020 21:06 Ivan Novak Riccardo Katelyn M.D.;ETOH STAT 21:04/19/2020 21:06 Ivan Novak Riccardo Katelyn M.D.;Acetaminophen STAT 21:04/19/2020 21:06 Angel Novak Riccardo Katelyn M.D.;Salicylate Level STAT 21:01 04/19/2020 21:06 Ivan Novak Riccardo Katelyn M.D.;Urinalysis (Clean STAT 21:04/19/2020 Ack'd: 21:21 2 OrderSheet [facility] Emergency Department [address] [place] [address] Phone #: vhv- [phone] 04/19/2020 20:24 Patient: DELONTE ZAMORANO Sex: M [...] M.D.;Lactic Acid STAT 21:50 04/19/2020 22:27 Ivan Novak Riccardo Katelyn M.D.;DIAGNOSTIC STUDY ORDERSOrder Description Priority [...] Chapito Love Katelyn Sarah R.NMorris 3 OrderSheet [facility] Emergency Department [address] [place] [address] Phone #: ext- [phone] 04/19/2020 20:24 ----- Patient: DELONTE ZAMORAON Sex: M : 1985 Age: 34yMEDICATION) M.D.;GENERAL ORDERSOrder Description Priority Entered Acknowledged InitialedBlood Pressure 21:04/19/2020 21:05 Veto,Monitor Chapito LoveNMorris MKayode;Attache 21:04/19/2020 21:05 Veto(continuous) Chapito Love R.N., M.D.;EKG [...] rce(s) Supporting Document(s) ID Date Data Source [id number] 04/19/2020 08:39:00 PM EDT [facility] 1 Medication Reconciliation Report [facility] Emergency Department [address] [place] [address] Phone #: ext- [phone] 04/19/2020 20:24 Patient: [...] rce(s) Supporting Document(s) ID Date Data Source [id number] 04/19/2020 08:39:00 PM EDT [facility] 1 Medication Administration Record [facility] Emergency Department [address] [place] [address] Phone #: ext- [phone] 04/19/2020 20:24 Patient: DELONTE ZAMORANO Sex: M : 1985 Age: 34yWeight: 99.7 kgHeight/Length: 72 inBMI: 29.8ALLERGIES : Gabapentin, Torodal Date/Time Medication Administered Medication OrderedStart NS [IV] NS IV 500 mL Bolus: : Bolus 64733:12 04/19/2020 Dose: IV Fluids mL, then 125 [...] rce(s) Supporting Document(s) ID Date Data Source [id number] 04/19/2020 08:39:00 PM EDT [facility] 1 General Instructions [facility] Emergency Department [address] [place] [address] Phone #: ext- [phone] 04/19/2020 20:24 Patient: [...] may feel: Helpless Nervous 2 General Instructions [facility] Emergency Department [address] [place] [address] Phone #: ext- [phone] 04/19/2020 20:24 [facility]: [id number] Sex: M : 1985 Age: 34y Depressed [...] the stress becomes severe. 3 General Instructions [facility] Emergency Department [address] [place] [address] Phone #: ext- [phone] 04/19/2020 20:24 Patient: [...] to seek medical advice 4 General Instructions [facility] Emergency Department [address] [place] [address] Phone #: ext- [phone] 04/19/2020 20:24 Patient: DELONTE ZAMORANO Sex: Betsy : 1985 Age: 34yCall your healthcare provider right away if any of these happen: Your symptoms get worse Severe headache not relieved by rest and mild pain reliever [phone] [employer]. [address] [place] [address]. All rights reserved. This information is not [...] than from physical withdrawal. 5 General Instructions [facility] Emergency Department [address] [place] [address] Phone #: ext- [phone] 04/19/2020 20:24 Patient: DELONTE ZAMORANO ct#: [id number] Sex: Betsy : 1985 Age: 34yIs marijuana [...] National Alcohol and Substance Abuse Information Center: 228.657.2394 or www.[employer]ryTrader.com National [place] on Alcoholism and Drug Dependence: [phone] or www.ncadd.org Marijuana Anonymous: [phone] or www.marijuana-anonymous.orgWhen to seek medical advice 6 General Instructions [facility] Emergency Department [address] [place] [address] Phone #: ext- [phone] 04/19/2020 20:24 Patient: DELONTE ZAMORANO Sex: Betsy : 1985 Age: 34yCall your healthcare provider right away if any of these occur: You feel extreme depression, fear, anxiety, or anger toward yourself or others. You feel out of control. You feel that you may try to harm yourself or another. You have chest pain or shortness of breath. [phone] [employer]. [address] [place] [address]. All rights reserved. This information is not [...] job or your family Arrest, conviction, and usp sentence for possession of an illegal substance [...] Hepatitis B or C 7 General Instructions [facility] Emergency Department [address] [place] [address] Phone #: ext- [phone] 04/19/2020 20:24 Patient: DELONTE ZAMORANO Sex: Betsy : 1985 Age: 34y from overdoseBr[facility]ale [facility], avonThe following suggestions can help you care for [...] of the resources below for help: National [place] on Alcoholism and Drug Dependence, www.ncadd.org, Narcotics Anonymous, www.na.org, National Alcohol and Substance Abuse Information Center, www.addictioncareLugIron Software.IndustryTrader.com, . This center can refer you to a treatment program.Call [phone] if any of the following occur: Seizure Hard time breathing or slow, irregular breathing Chest pain Sudden weakness on one side of your body or sudden trouble speaking Very drowsy or trouble awakening Fainting or loss of consciousness Rapid heart rate Very slow heart rateWhen to seek medical advice 8 General Instructions [facility] Emergency Department [address] [place] [address] Phone #: ext- [phone] 04/19/2020 20:24 Patient: DELONTE ZAMORANO Sex: Betsy [...] swelling, or tenderness at an injection site [phone] [employer]. [address] [place] [address]. All rights reserved. This information is not [...] and possibly slurred speech 9 General Instructions [facility] Emergency Department [address] [place] [address] Phone #: ext- [phone] 04/19/2020 20:24 Patient: [...] and Substance Abuse Information 10 General Instructions [facility] Emergency Department [address] [place], [place] [address] Phone #: ext- [phone] 04/19/2020 20:24 Patient: DELONTE ZAMORANO Sex: Betsy : 1985 Age: 34y Center: [phone] or www.[employer] National [place] on Alcoholism and Drug Dependence: 228.885.9851 or www.ncadd.org Marijuana Anonymous: 152-428-730 9 or www.marijuana-anonymous.orgWhen to seek medical adviceCall your healthcare provider right away if any of these occur: You feel extreme depression, fear, anxiety, or anger toward yourself or others. You feel out of control. You feel that you may try to harm yourself or another. You have chest pain or shortness of breath. [phone] [employer] [place] [address]. All rights reserved. This information is not intended as asubstitute for professional medical care. Always follow your healthcare professional's instructions. You have been given the following additional information: Anxiety Reaction Marijuana Abuse Drug Abuse Marijuana Abuse(Electronically signed by Chapito Love M.D. 04/20/2020 04:31) Name Value Range Interpretation Code Description Data Adriana rce(s) Supporting Document(s) ID Date Data Source [id number] 04/19/2020 08:39:00 PM EDT [facility] 1 Clinical Report - Nurses [facility] Emergency Department [address] [place] [address] Phone #: ext- [phone] 04/19/2020 20:24 Patient: DELONTE ZAMORANO Sex: M : 1985 Age: 34yTRIAGEArrived by private vehicle. Historian: patient. Accompanied by family.Acuity: LEVEL 3.Chief Complaint: (WEAKNESS).Alert. 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 SEPSIS SCREEN NEGATIVE. [...] Novakental Caries.Diarrhea.Epididymitis. 2 Clinical Report - Nurses [facility] Emergency Department [address] [place] [address] Phone #: [phone] ext- [phone] 04/19/2020 20:24 Patient: DELONTE ZAMORANO Sex: M [...] Atkins R.N. 3 Clinical Report - Nurses [facility] Emergency Department [address] [place] [address] Phone #: ext- [phone] 04/19/2020 20:24 Patient: DELONTE ZAMORANO Sex: M [...] identifiers checked. 4 Clinical Report - Nurses [facility] Emergency Department [address] [place] [address] Phone #: ext- [phone] 04/19/2020 20:24 Patient: [...] from radiology and CT by stretcher with materials tech. --21:49 04/19/20 Roxana Laws R.N.22:40 04/19/2020 Lopressor [...] good for 5 Clinical Report - Nurses [facility] Emergency Department [address] [place] [address] Phone #: ext- [phone] 04/19/2020 20:24 Patient: DELONTE ZAMORANO Sex: M [...] say",.). --22:50 04/19/20 Roxana Laws R.N. ( 8275- Officer [place] [employer] to ER at this time, Patient ambulated to the nurses station and became upset with staff and officer, patient at that time shoved the public safety police, patient and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 wheelchair with tech. --13:21 04/09/20 Patrica Lopez R.N.13:46 04/09/20. BP: 146/84. MAP: 104. HR: 91. RR: 19. O2 saturation: 100%. --13:47 04/09/20 [place] Jacob[place] [id number] returned from [facility] by wheelchair with tech. --13:49 04/09/20 Patrica [...] R.N.( pt made aware of transport to [facility]). --14:20 04/09/20 Patrica Lopez R.N.14:34 04/09/20. BP: 149/99. MAP: 115. HR: 78. RR: 18. O2 saturation: 100%. --14:34 04/09/20 [employer] 5 Clinical Report - Nurses [facility] Emergency Department [address] [place] [address] Phone #: ext- [phone] 04/09/2020 11:33 Patient: DELONTE ZAMORANO Sex: Betsy : 1985 Age: 34y 14:59 04/09/20. BP: 144/102. MAP: 116. HR: 67. RR: 18. O2 saturation: 97%. --15:00 04/09/20 [facility], [employer] Tech1 ( waiting for transfer to [facility] no change in neuro status). --15:12 04/09/20 Patrica Lopez R.N. 15:34 04/09/20. BP: 126/102. MAP: 110. HR: 90. RR: 21. O2 saturation: 100%. --15:34 04/09/20 [facility] [employer] Tech1 15:37 04/09/2020 Ofirmev IV Discontinued: completed. [...] Patrica Lopez R.N.DISPOSITION / DISCHARGE Transferred to [facility]. Visit overview, summary of care (CCDA) and [...] Lopez R.N. 6 Clinical Report - Nurses [facility] Emergency Department [address] [place] [address] Phone #: ext- [phone] 04/09/2020 11:33 Patient: DELONTE ZAMORANO Sex: M : 1985 Age: 34y Name Value Range Interpretation Code Description Data Adriana rce(s) Supporting Document(s) ID Date Data Source [id number] 04/09/2020 11:42:00 AM EST [facility] 1 Clinical Report - Physicians/Mid Levels [facility] Emergency Department [address] [place] [address] Phone #: ext- [phone] 04/09/2020 11:33 Patient: DELONTE ZAMORANO Sex: M [...] Disease. 2 Clinical Report - Physicians/Mid Levels [facility] Emergency Department [address] [place] [address] Phone #: ext- [phone] 04/09/2020 11:33 Patient: DELONTE ZAMORANO Sex: Betsy [...] nystagmus. 3 Clinical Report - Physicians/Mid Levels [facility] Emergency Department [address] [place] [address] Phone #: gmy- [phone] 04/09/2020 11:33 Patient: DELONTE ZAMORANO Sex: M [...] rhythm. Rate: 81. Normal P waves. Normal LORNEE. Normal QRS complex. Abnormal axis.Normal ST and [...] (Reference) 4 Clinical Report - Physicians/Mid Levels [facility] Emergency Department [address] [place] [address] Phone #: ext- [phone] 04/09/2020 11:33 Patient: DELONTE ZAMORANO Sex: M [...] NOT INDICATEDFibrinogen Level: (PORTIA: 04/09/2020 12:38) ( [facility] 04/09/2020 13:42) Final results Test Result Flag Units (Reference) FIBRINOGEN 285.0 mg/dL (179 - 506)PT/INR: (PORTIA: 04/09/2020 12:38) ( [facility] 04/09/2020 12:42) CanceledPT/PTT: (PORTIA: 04/09/2020 12:38) ( [facility] 04/09/2020 13:42) Final results Test Result Flag Units (Reference) PROTIME 12.7 SECONDS (11.0 - 15.5) INR 0.91 L (0.93 - 1.23) PTT 28.5 SECONDS (24.8 - 36.7) \\BLDo\\INR INTERPRETATION\\BLDx\\ Therapeutic range for Coumadin andrelated oral anticoagulants. -International Normalized Ratio (INR): 2.0 - 3.0 for VenousThrombosis, Pulmonary Embolus, Tissue heart valves, Acute AL Atrial Fibrillation, Valvular heart diseaseand recurrent Systemic Embolism. -International Normalized Ratio (INR): 2.5 - 3.5 forMechanical Prosthetic valve.Venous Blood Gas: (PORTIA: 04/09/2020 12:38) ( [facility] 04/09/2020 12:53) Final results Test Result [...] 85.0) 5 Clinical Report - Physicians/Mid Levels [facility] Emergency Department [address] [place] [address] Phone #: ext- [phone] 04/09/2020 11:33 Patient: DELONTE ZAMORANO Sex: M [...] discussed the case with DR Duffy at [facility] who accepted the patient 15:35 04/09/20. patient [...] to transfer explained to patient. Transferred to [facility]. 14:06 14:06. UTI (catheter associated) was not [...] 04/10/2020 05:18) 6Clinical Report - Physicians/Mid Levels [facility] Emergency Department [address] [place] [address] Phone #: ext- [phone] 04/09/2020 11:33 Patient: DELONTE ZAMORANO Sex: M : 1985 Age: 34y Name Value Range Interpretation Code Description Data Adriana rce(s) Supporting Document(s) ID Date Data Source [id number] 04/09/2020 11:42:00 AM [facility] Addenda for DELONTE ZAMORANO VisitID: [id number] Date: 12:06blood culture positive for staph, results faxed to [facility](Electronically signed by Brianne Arcos RN - 04/11/2020 12:06)04/14/2020 13:52Previously already faxed to [facility] on 04/11/2020; Shown to Niurka CHAVEZ at [phone], okay with this, nofurther intervention required.(Electronically signed by Sandy Dimas R.N. 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 superintendent+LF7DpC8TvKR8fo9+tHC8gh5g7xltKgs3naH2PF sUZGr2Ke11l+AwdQ6NTBXlWpQOM5mXR5i41EUPcOp80A3CHn0HTuhn98ekaao1YbOu65B+jpkDcMtQHK t+32OMLz/YFX1tBiUJYEu1T6bnTBzw2SkodB/Gjr1/1XHr/6K6CM0i50/sxL4rqFWsM20WqgrmmtSr1L XBRIPyQzmZnsMHMtaVWPzNrSOMxCu+lL2PSs/e5afj WKR5xP0DH9Xqy1Xhj1B2aMA5lzAtInRNkiEbhr5YZlAQyIa386XsbIruDCph5KnCvBIMx+KBiDQKbTo8 DZEJRq3rh8y0H9CvBjYe/M2luSehPlgyIDTnfGGWYXT6qKCFZXsQYhAF8ZH2bCRsGUthCOjSRh42rXn9 mLv8SzTLqhoIt9GeEEdO3XD/SBjoBH5vBw8UHo5Emp 0F/8o95RwX9FW/Company Controller+GmTbtv14uvlXtfgQrDxcNq/Vuw9fzIHPrSwLFL5woZioZ7AYK6dj1CkQTsxHRIh [file] ICAgICAgICAgICAgICAgICAgICAgICAgICAgICAgICAgICAgICAgICAgICAgICAgICAgICAgICAgICAg BOGlWQKhVWJbASNfTDBcUFXbDQ7VINVhKQFqROMoZBRxJFYaDMEpONRqZMHkFDCzTSUlKDJtEOChJCNs ICAgICAgICAgICAgICAgICAgICAgICAgICAgICAgIC CzMNVfLPHnZTJbNIAaMCZjJMBmIISzXLWgKTDaRM2FGBFaATIbYTKoFUVmSVQzERUfRQMdNRLvBOFyCS AgICAgICAgICAgICAgICAgICAgICAgICAgICAgICAgICAgICAgICAgICAgICAgICAgICAgICAgICAgIC BhNSMoKOBhTYAaEN5WTQXxFRCiFNKrFJEjCRDzQLHi ICAgICAgICAgICAgICAgICAgICAgICAgICAgICAgICAgICAgICAgICAgICAgICAgICAgICAgICAgICAg GQHhKQPiZVQcSKBzZSZuNIDzPBYrGY1THECaNKOhEHNgVDSmJLOuBONaXPSrTWOcUIAgBLFkOMCgGHFk ICAgICAgICAgICAgICAgICAgICAgICAgICAgICAgIC PtWLZlHQIpLGJqVUVeDXDwFOXyGKGwMCJcXRLlDJAyOW8HPLVpTSDnHYSbMDNpTMEbHLAnQWFlUNFfMB AgICAgICAgICAgICAgICAgICAgICAgICAgICAgICAgICAgICAgICAgICAgICAgICAgICAgICAgICAgIC UyIPHvUMTqFADfQXJoNB6RCDTeHLSaXQRkPXShHFDv ICAgICAgICAgICAgICAgICAgICAgICAgICAgICAgICAgICAgICAgICAgICAgICAgICAgICAgICAgICAg VOWtPQYxFYYgAWIkNZWhGHNrVNIgTPTdAO6BDSLjIMYlEYNvOAIuDSIeUJHsAWDxOEIiBEWaOLQpFELk ICAgICAgICAgICAgICAgICAgICAgICAgICAgICAgIC TsNRScGOCiBLVfKXMrHDKjUBFdECSeYDJdJGWfTMTmSEQfAT2FBJNlNWSfQBAzVGYoZNCsSWQzPMQgGN AgICAgICAgICAgICAgICAgICAgICAgICAgICAgICAgICAgICAgICAgICAgICAgICAgICAgICAgICAgIC GkGYJwNQTwKCRoSNDzPLIdYU1HOPFgUFAeYYImTKPg ICAgICAgICAgICAgICAgICAgICAgICAgICAgICAgICAgICAgICAgICAgICAgICAgICAgICAgICAgICAg ZQIbOVVwZICeIXNmLUXzBRXiHKDgRZZoSCKuEI9VCA09eJXto6Q3ZNEyKS6gcek/Ec8BNJouomKlyKXl KF2OXgAaTE6ktt6RAdZdOI9qfl8TPVoNKfAbU5A2lE DkUYKzAUYAXgHwB27gBLfvOd00OClqAONeTdZqAIy5Sy0BGzZuF2roTMPkWxF3HSNmOoZ1OXSwLuF2KH WrFbTqWPUdKSAdQI1TKATzU120fxWpKL6HQf3UWcNwJF5tgp6IOphzOPVzLtnBSfc4DFqaWD4WaRDtpV CdALQyFTKQDuKkK8dfg2BuYejiNLHJVEvtCD1Nw0Aj dCAxDQo+Sq9KVM3vu2VsQOpyQOFkJM4hph8OSVlMRtZfP0TgbUeqLGUchlB4aIRcMGX3BUBudI2yoSHl YJTByVUiXSNNGKIBOMT8ZOSvXX3hNYVkGGEmYdQ0DABNLQ0LZTFpBQBdqLOiETQxOGWEHX4JNHymQQE6 JAKltjLnpLKvRDrgZK8ETHJpacXgSsjhPPZWABh+Pg 2LPE8lg0RvNHvlDPPsYV3nrx5SCShTRoGpA7V3wOFeV6S5BOmiZu9MQLPiPJRuMuBxOSHGZOliIU0USK 7eomC9ZS6ZuLNgYZCxREGwgPDrFGk1P91sfHPtRNcqBW7HWHX+Claudia+Oi3FXDKhJRJrFCBjZeZhJPIOVw ApA8DkV0CPv4UfS6DnNC27yPdihpKsSLffGL0VDO3r MMSfPIGOFG8OoWGyzH4jtqXcXYJbMYEZJfNsU67miTUrSSCtYHP9YPZlUg9ASDWbL1WzbrNliBevdhBa RLGcDRAFNQ2RIAetnaZpqEJylNcmTP48jOmxDK8AUl5DVkNlRX1drm5VcQXoRq9LIQGmRW4IKPQvOGZt OYYuSSK5CEEqAyUdDMuuUIQiXVXkOOL2YYAhZLTpDN 6KXvShETUgLuU7PTgsXADsHCBxef1QLRFkFGCkFjP9EiDqWHQbJPHoGRbmZMDuWYIrNAW5KXXkBJQgWX 9RHrAqSAViAES1GjijSHZvXEQqwm2OARWwONZeWuuhAbCcDMBcOQDgYUquWULtDQL1XBYoEJVcHJMcML 3RKeJkQFJeJMcoEmLqQUBiPYLgxw7EECUiVESkXXn7 MTGvJPOrBPJkVNgiAPMzIMSgXPY1CCWgCAVpVB5VQfEjWIXyKNOnLNqnILHeZKKedc7LTBOpGNSsKPVf MkNxUWGsYVLdQAmjXAGsBUD1PITcCIJlHUBzPO8PWaQrLOLeQYC2NtEtYQLvXNLqun5HYSLjGZJcHQd7 ZmQwWAIkMHGyVRpeOOBuRKK0NRQrXREjCUJiCR0NNl HzXRJoHOenNMYhJQJqLMNssj9SXPYyKBTcByN6TsSnWBAaRWOjGXbiZWNtIFT1GIb5MBZoEEZxQM0DCi IuRGTlLvl0UXLsAOEsCCJiaa2PXVNsALHfBJMwJNCgJBVsUMZpJWgtKQSpKUN6CfSvBVYeUCCyXH5MBk MjSFPmTmw5GSbzBNMhYDRhnc1RWBEdOYGzLMTsGFAa MKKpOXPnNGgqHFEgCVRvUqJ3AKLgKZYiBI5SCjUeMHPyCjE7USHcRFDbZWTnxh3EBMKaWLCvUERxPoAs EAXmJUVnROpwAUGwHIXyHxgbEUHlDQIrLZ4OJcZvJBOiSdE5AHOwIMCuKJBmvq7EHQXyJUBfCik5LFTd MCGtEQSoXBh0nsZooPUqDUc5OJ4LK4QnraJlGsYCGv 7Tv109YJDyTXBoEx2ZJ8qfMd5uDJRsBDFOBq7XQOe4LqD0BHR3OuDuKTvsRRBtRrxdFUPvR4N1YCOmD4 MxMjg+XGycPba9LIrgZISvLOI8QCUsEYHiEzNqUdXhXDHnEcBqOD5jOERREk8+DQpzdGFydHhyZWYNCj AqRZE1NEpwHUUGZo4R ID Date Data Source [id number] 04/12/2020 10:05:00 AM EST [facility] [address] [place] [address] PHONE: [phone] FAX: [phone] Name .................. : JAUN DELONTE M Acct Number.................. : [id number] ROOM. ................. : VT01 MR Number ................... : [id number] Stay type ............. : E/R Discharge Date......... ... : 04/09/20 Admit Date ......... : 04/09/20 Admit Phys .................... : [facility] Date of ....... : 1985 Family Phys ................... : JOHNSONST WANGI Phone .................. : [phone] Age ................................ : 34 Film# .................. .:[id number] Sex ................................. : M Unsigned transcriptions are preliminary reports and do not represent a medical or legal document CHEST PORTABLE [id number] COMPLETE:04/09/20 19:10 MADHAV 5645 Reason(s): stroke PORTABLE [...] rce(s) Supporting Document(s) ID Date Data Source [id number] 04/12/2020 10:05:00 AM EST [facility] [address] [place] [address] PHONE: [phone] FAX: [phone] Name .................. : JAUN Meyer Acct Number.................. : [id number] ROOM. ................. : VT-01 Number ................... : [id number] Stay type ............. : E/R Discharge Date......... ... : 04/09/20 Admit Date ......... : 04/09/20 Admit Phys .................... : [facility] Date of ....... : 1985 Family Phys ................... : ALEX KEANE Phone .................. : [phone] Age ................................ : 34 Film# .................. .:[id number] Sex ................................. : M Unsigned transcriptions are preliminary reports and do not represent a medical or legal document CT HEAD(STROKE PROTOCOL) W/O [id number] COMPLETE:04/09/20 15:38 RLB 5646 Reason(s): left sided [...] imperative reconstructive techniques. Page 1 of 2 [place] [address] PHONE: [phone] FAX: [phone] Name .................. : JAUN Meyer Acct Number.................. : [id number] ROOM. ................. : VT-01 Number ................... : [id number] Stay type ............. : E/R Discharge Date......... ... : 04/09/20 Admit Date ......... : 04/09/20 Admit Phys .................... : MARIANACLAYCO Date of ....... : 1985 Family Phys ................... : ALEX KEANE Phone .................. : [phone] Age ................................ : 34 Film# .................. .:[id number] Sex ................................. : M Unsigned transcriptions are preliminary reports and do not represent a medical or legal document CT HEAD(STROKE PRO TOCOL) W/O [id number] COMPLETE:04/09/20 15:38 RLB 5646 Reason(s): left sided weakness and numbness CT dose: 864.3 mGycm Electronically Reviewed and Signed By Yusuf Love MD , 04/12/20 10:05, PERFECTO Transcribe Initials: MELANIE , Transcribe Date: 04/10/20 05:49, Dictation Date: Copy for: 710 MED REC DISCHARGED Page 2 of 2 Name Value Range Interpretation Code Description Data Adriana rce(s) Supporting Document(s) ID Date Data Source [id number] 04/12/2020 10:04:00 AM EST [facility] [address] [place] [address] PHONE: [phone] FAX: [phone] Name .................. : JAUN Meyer Acct Number.................. : [id number] ROOM. ................. : VT-01 MR Number ................... : [id number] Stay type ............. : E/R Discharge Date......... ... : 04/09/20 Admit Date ......... : 04/09/20 Admit Phys .................... : CHANLIECCO Date of ....... : 1985 Family Phys ................... : [employer] Phone .................. : [phone] Age ................................ : 34 Film# .................. .:[id number] Sex ................................. : M Unsigned transcriptions are preliminary reports and do not represent a medical or legal document MRI BRAIN W/O CONTRAST [id number] COMPLETE:04/09/20 15:16 [facility] 5650 Reason(s): left sided weakness. possible stroke [...] 23:48, Dictation Date: Page 1 of 2 [facility] [address] [place] [address] PHONE: [phone] FAX: [phone] Name .................. : JAUN GARCIAAaliyah Meyer Acct Number.................. : [id number] ROOM. ................. : VT-01 MR Number ................... : [id number] Stay type ............. : E/R Discharge Date......... ... : 04/09/20 Admit Date ......... : 04/09/20 Admit Phys .................... : ALICIA Date of ....... : 1985 Family Phys ................... : ALEX KEANE Phone .................. : [phone] Age ................................ : 34 Film# .................. .:[id number] Sex ................................. : M Unsigned transcriptions are preliminary reports and do not represent a medical or legal document MRI BRAIN W/O CONTRAST [id number] COMPLETE:04/09/20 15:16 [facility] 5650 Reason(s): left sided weakness. possible stroke Copy for: 710 MED REC DISCHARGED Page 2 of 2 Name Value Range Interpretation Code Description Data Adriana rce(s) Supporting Document(s) ID Date Data Source [id number] 04/12/2020 06:13:49 AM [facility] Name Value Range Interpretation Code Description Data Adriana rce(s) Supporting Document(s) Leukocytes [#/volume] in Blood by Automated count 19.6 10*3/uL 4-10 [facility] Erythrocytes [#/volume] in Blood by Automated count 4.76 10*6/uL 4.6- 6.1 [facility] Hemoglobin [Mass/volume] in Blood 14.6 g/dL 13.5-18 [facility] Hematocrit [Volume Fraction] of Blood by Automated count 42.4 % 4 1-53 [facility] Erythrocyte mean corpuscular volume [Entitic volume] by Auto mated count 89.1 fL 80-96 [facility] Erythrocyte mean corpuscular hemoglobin [Entitic mass] by Automated count 30.7 pg 27-33 [facility] Erythrocyte mean corpuscular hemoglobin concentration [Mass/volume] by Automated count 34.5 g/dL 32.0-36.0 [facility] distribution width [Ratio] by Automated count 14.1 % 11.5-14.5 [facility] Platelets [#/volume] in Blood by Automated count 399 10*3/uL 150-400 [facility] Differential cell count method - Blood [facility] Neutrophils/100 leukocytes in Blood by Automated count 84 % [facility] Lymphocytes/100 leukocytes in Blood by Automated count 9 % [facility] Monocytes/100 leukocytes in Blood by Automated count 6 % [facility] Eosinophils/100 leukocytes in Blood by Automated count 0 % [facility] Basophils/100 leukocytes in Blood by Automated count 1 % [facility] Neutrophils [#/volume] in Blood by Automated count 16.56 10*3/uL 1.8- 7.0 [facility] Lymphocytes [#/volume] in Blood by Automated count 1.76 10*3/uL 1.2-4 .0 [facility] Monocytes [#/volume] in Blood by Automated count 1.15 10*3/uL 0-0.8 H [facility] Eosinophils [#/volume] in Blood by Automated count 0.04 10*3/uL 0-0.5 [facility] Basophils [#/volume] in Blood by Automated count 0.13 10*3/uL 0-0.2 [facility] Nucleated erythrocytes/100 leukocytes [Ratio] in Blood by Automated count 0 /100{WBCs} 0-0 [facility] ID Date Data Source [id number] 04/12/2020 10:03:53 AM EST [facility] Name Value Range Interpretation Code Description Data Adriana rce(s) Supporting Document(s) Bicarbonate [Moles/volume] in Serum 23 mmol/L 22-29 [facility] Chloride [Moles/volume] in Serum or Plasma 102 mmol/L 98-107 [facility] Creatinine [Mass/volume] in Serum or Plasma 0.87 mg/dL 0.70-1.20 [facility] Glucose [Mass/volume] in Serum or Plasma 140 mg/dL 70-140 [facility] Potassium [Moles/volume] in Serum or Plasma 4.8 mmol/L 3.4-5.1 [facility] Sodium [Moles/volume] in Serum or Plasma 136 mmol/L 136-145 [facility] Urea nitrogen [Mass/volume] in Serum or Plasma 16 mg/dL 6-20 [facility] Confirmed Anion gap 3 in Serum or Plasma 12 mmol/L 8-15 [facility] Osmolality of Serum or Plasma by calculation 285 mosm/kg 275-300 [facility] Confirmed Creatinine/Urea nitrogen [Mass Ratio] in Serum or Plasma 19 [facility] Confirmed Calcium [Mass/volume] in Serum or Plasma 9.4 mg/dL 8.6-10.0 [facility] Glomerular filtration rate/1.73 sq M pre dicted among non-blacks [Volume Rate/Area] in Serum or Plasma by Creatinine-based formula (MDRD) >6 0 [facility] Glomerular filtration rate/1.73 sq M pre dicted among blacks [Volume Rate/Area] in Serum or Plasma by Creatinine-based formula (MDRD) >60 [facility] ID Date Data Source [id number] 04/11/2020 01:44:57 PM [facility] MR CERVICAL SPINE WITH AND WITHOUT CONTR AST [id number] RESULT - FINALInterpreted by:Lele Menchaca MDAddendum BeginsSigned on SunApr 11, 2020 1:42 PM by Jose Maharaj MDAddended Findings were discussed with Dr. Hernandez by Dr. Maharaj via phone at 04/11/2020 1:42 PM.Addendum EndsMR CERVICAL SPINE WITH AND WITHOUT CONTRAST [id number] INDICATION: Evaluate for enhancing lesions, concern for [...] cervical spine as described above.Addendum by Dr Maharaj: There is left-sided disc protrusion with cranial [...] rce(s) Supporting Document(s) ID Date Data Source [id number] 04/11/2020 09:10:58 AM [facility] MR BRAIN WITH AND WITHOUT CONTRAST [id number] FINAL RESULTInterpreted by:Lele Menchaca MDClinical Indication: Evaluate [...] rce(s) Supporting Document(s) ID Date Data Source [id number] 04/10/2020 08:49:17 PM [facility] Name Value Range Interpretation Code Description Data Adriana rce(s) Supporting Document(s) History and Physical [facility] LOSIBm6cAuIUSsPo73/PRHjfOVZql3HsHCqfPEw8QFqePVNqD5DpFVS5kU2wLZE5LKvYRsZmMoPpVkV0 lbm [file] t2N6OEtiGP1q/yKZw4TYQyMHfWe4UZb2QMgo2g3r966M58h956TqIpY/Company Controller++U0UYS1HWQj8HxXL+xvug [file] AgICAgICAgICAgICAgICAgICAgICAgICAgICAgICAg ICAgICAgICAgICAgICAgICAgICAgICAgICAgICAgICAgICAgICANCiAgICAgICAgICAgICAgICAgICAg ICAgICAgICAgICAgICAgICAgICAgICAgICAgICAgICAgICAgICAgICAgICAgICAgICAgICAgICAgICAg ICAgICAgICAgICAgICAgICAgICANCiAgICAgICAgIC AgICAgICAgICAgICAgICAgICAgICAgICAgICAgICAgICAgICAgICAgICAgICAgICAgICAgICAgICAgIC AgICAgICAgICAgICAgICAgICAgICAgICAgICAgICANCiAgICAgICAgICAgICAgICAgICAgICAgICAgIC AgICAgICAgICAgICAgICAgICAgICAgICAgICAgICAg ICAgICAgICAgICAgICAgICAgICAgICAgICAgICAgICAgICAgICAgICANCiAgICAgICAgICAgICAgICAg ICAgICAgICAgICAgICAgICAgICAgICAgICAgICAgICAgICAgICAgICAgICAgICAgICAgICAgICAgICAg ICAgICAgICAgICAgICAgICAgICAgICANCiAgICAgIC AgICAgICAgICAgICAgICAgICAgICAgICAgICAgICAgICAgICAgICAgICAgICAgICAgICAgICAgICAgIC AgICAgICAgICAgICAgICAgICAgICAgICAgICAgICAgICANCiAgICAgICAgICAgICAgICAgICAgICAgIC AgICAgICAgICAgICAgICAgICAgICAgICAgICAgICAg ICAgICAgICAgICAgICAgICAgICAgICAgICAgICAgICAgICAgICAgICAgICANCiAgICAgICAgICAgICAg ICAgICAgICAgICAgICAgICAgICAgICAgICAgICAgICAgICAgICAgICAgICAgICAgICAgICAgICAgICAg ICAgICAgICAgICAgICAgICAgICAgICAgICANCiAgIC AgICAgICAgICAgICAgICAgICAgICAgICAgICAgICAgICAgICAgICAgICAgICAgICAgICAgICAgICAgIC AgICAgICAgICAgICAgICAgICAgICAgICAgICAgICAgICAgICANCiAgICAgICAgICAgICAgICAgICAgIC AgICAgICAgICAgICAgICAgICAgICAgICAgICAgICAg ICAgICAgICAgICAgICAgICAgICAgICAgICAgICAgICAgICAgICAgICAgICAgICANCjw/lEPkW8lmoCXj pcM3A6taTe2CWl0XYH0um4OuHFMxGLuadiEnDoqAFkJpUNGdGcaBSpk7LEsxBI1BgLJeK1VnK5UbNPln RN9CCBYaIMOxgHCqRLEnPYOqJsP2TPJnKVxvUT2JcP XgBXheKRKkAIDoNxWeZMJxBSYtBJAMANByKRNqOjGjGGEzVDVxRGPhMQIOIRF7KAQqHvFbRMrfFU2Qz1 FuxJQ1YFj+Wh9YRN7ph0ApEYkuEQGiFW7fuf6HUDoJLfYkT2KzogB9DEY5HXOeAv9VVUJtIURivUEiUN EcAJZBUnWeQ2QxnH17VVGLGn9+DQplbmRvYmoNCjM5 NUQgd1TyZEk7PZ2HFSEaMMa7hRUbKNDIHYP6JHFqdfjxwGTWhw7yGEJCSJUqoGSpZiFtKtMnWQQoIgrg TYKTMOpRFjVzI7Cgn7GmGwR7XAGdMtEkDTllTCWiUtX5UR12oZgyRK1DOMHlGTUvDD81XYE8LXBbHk7U Ko4ZWnMaTJ3vbk0SXFZcUS8mrq1IABzABtLdQ2S2lH JmQ1Piqj65VU1UaHI8aCJjZN3OgE4sPR5Df5GhPISsHvPzDVGnQSUrLQXlMHMrWtPhRS9OSWIyTxQfbL VbJEY6AKFqJIIwESZiOiO4SZZUIwGjD1FuHMjbXeVpYGRQAM2VTbsmGTNwH5LKTHmVEI6KK6uNA6XUYb 2RTF8FYXWJS1jIE5gXL7eXHIulEO2PCNZlZT1+IA0K Lb5WVuIdWA6mhf5GPPOtZAWeNkbAIia8BFqwPC8EfORnD4KthHSfm6fIQwIaQ2VXLMJ9OQBcCi1LMLQq FyUpIMBcSQwgLE4gYGGcNNVYnSvyueT5AV1BAM4bayAhXF3CEjNxUe1pKk8VSvHfH1MyX7OdNPLxBPRY QEldCC7YQSwxXG3cOP7Zy4NZgRNhuH7sbe9UOPXwDY OmHtfryw3WVddgP3E6aZkvZHDqVeuhIHZGKOivRL6HJMWgTMF4ANMdImEiHKVHCiOgZ73nEY4UA4Nqu8 2qScT2HOMfGnEiDGhqPS46sZqkviAvkSHgnJbhWA2CHm9+DQplbmRvYmoNCnhyZWYNCjAgNDENCjAwMD AuUKLaMUBcGwD8SmBuXl1OYWVnORGfDXSxAzVnFASk FIEtXDftKYZnXYN6CaK1KIQoRFHpDT0ITbOpFHHnFDb3KEAeYNIfSWCqjm2CNRFgHAMrCJP7DbVvMNRy ZJJtSYkjEMOhCRHiSdV4SBZjDLQrAC7MVjYuYANuGTS9BFvtXKYxAWOoot4IIJJsJBGdFoTxEoAyPUAs ICSzAByiLIYtJNK0YED5AANlXWDqPE7BIuQwYREwHM ogRGLzBFLfYOUaxh8OCSZhLREjVMh4XPWfMRQmQSLvKRzcKFRwPWCpAXu9WZQvBNMlBA1BCwGtPVTmTO G6OMneORIcIXOiub6OUGNzCYPuTGtnAdGvBKXpFAClKTqjZJEgVGO6PBWpWUXoAHVwDF7DMwFwYSImOA c2FCuxEZIhFPGjcz0SSGPsLGDpQdF3LRAuCUNzCMVo JUhvSMGvCFJmPvR5LOWvKQZmOZ1CKhEmGRDdYnTdSOYiJXFqCTVqlp9FSMRbBUCeRgQmTgCmMRQvQDXb DXzqHTFdEEW9PISnNUZoSVToDE1WWbHmROBnHzC8KBhmIPSvJKXxop2GCGPqNCFrFBi2RgGgFYNbERSu EWsbNQTvDVK2UWHqKLPxOFNjBW3UCrHfULVzPbUhHP IiFPXtXVVupy7PODDfXNSsBiX1TAYkZCGnOQGyDMvkDIAzPLH9FIKtYJUgQBGiDS7MYcHzJFWyFfdeGW UgSOPcZWFxec8PDZEsHWEfLgI9VCGlFDNeSUKfAEzeWNSvOVM5ACLjPDMrZQUbTF3RApOiWGPlEnl8EZ qkMDZaTGEpkt2NUCTcLNSbCJr1AKFhAYAlNYOmOTwn HGUcRYO9ZHHlWBIpXJHqVL6ZFvQwDHOgZVZ0JALfYRIqORDpbl2EYKMoZUY0LrX0ZGRpAINkXLJpAMdf ZTEtTGU0DFEeUNJaXZOtEF9JHzNoBGXcLRj2RBumRLMeMJCfvs3UPMAySOE7CPE4VRGnYGQgOQUgOVct BZKfWVK7CdX8QGCgRVRpBG7JKeBuRHInYSp7PLUjKL XrVHGtaw1GYUCfQPV6IJHnMhTrAHVpKZHfPNp7wyOcyZCxOYm7FY8JE2TjzuKfMBIANj9Km834RYSwNJ RyIy8WB7zhUu9aXVYaJJJXYo6ZFVq4AIZqJvG5EUR9FBP4TQX1GkA6OsajYfZ8KCQ9XqH9GKw+IDw1YW H5IHN9Maz0BpyiFRJeXud2UPX3NbF9SWLjCDR6BV8o XSANCj4+XJpntQRrcZdaSRXXIzVhIeLyGDrqGVPYKc8C ID Date Data Source [id number] 04/10/2020 09:02:47 PM EST [facility] Name Value Range Interpretation Code Description Data Adriana rce(s) Supporting Document(s) HIV 1+2 Ab+HIV1 p24 Ag [Presence] in Serum or Plasma by Immu noassay Non Reactive [facility] Negative for HIV-1 p24 antigenand HIV-1/ HIV-2 antibodies. Nolaboratory evidence of HIVinfection. ID Date Data Source [id number] 04/10/2020 09:09:[address] [facility] Value Range Interpretation Code Description Data Adriana rce(s) Supporting Document(s) Hepatitis A virus IgM Ab [Presence] in Serum or Plasma by Im munoassay Non Reactive [facility] No acute infection, susceptible to infec tion. Hepatitis B virus core IgM Ab [Presence] in Serum or Plasma by Immunoassay Non Reactive [facility] IgM antibodies to HBc were not detected, does not exclude the possibility of exposure to HBV. Hepatitis C virus Ab [Presence] in Serum or Plasma by Immuno assay Non Reactive [facility] No serological evidence of active infect ion. If recent exposure is suspected, test for HCV RNA. Hepatitis B virus surface Ag [Presence] in Serum or Plasma b y Immunoassay Non Reactive [facility] No active or previous infection. Suscept ible to infection. ID Date Data Source [id number] 04/10/2020 09:09:[address] [facility] Value Range Interpretation Code Description Data Adriana rce(s) Supporting Document(s) Treponema pallidum Ab [Presence] in Serum Non Reactive [facility] ID Date Data Source [id number] 04/10/2020 09:09:[address] [facility] Value Range Interpretation Code Description Data Adriana rce(s) Supporting Document(s) Folate [Mass/volume] in Serum or Plasma 5.97 ng/mL >4.77 [facility] ID Date Data Source [id number] 04/10/2020 09:09:[address] [facility] Value Range Interpretation Code Description Data Adriana rce(s) Supporting Document(s) Calcidiol [Mass/volume] in Serum or Plasma 16 ng/mL >30 L [facility] ID Date Data Source [id number] 04/10/2020 09:36:[address] [facility] Value Range Interpretation Code Description Data Adriana rce(s) Supporting Document(s) Borrelia burgdorferi IgG Ab [Presence] in Serum by Immunoassay Negative [facility] Borrelia burgdorferi IgM Ab [Presence] in Serum by Immunoassay Negative [facility] ID Date Data Source [id number] 04/10/2020 10:43:[address] [facility] Value Range Interpretation Code Description Data Adriana rce(s) Supporting Document(s) Hepatitis B virus surface Ab [Units/volume] in Serum or Plas ma by Immunoassay >11.4 [facility] ReactiveImmunity due to hepatitis B immu nization or natural infection. ID Date Data Source [id number] 04/12/2020 09:27:[address] [facility] Value Range Interpretation Code Description Data Adriana rce(s) Supporting Document(s) Yjwh-7-Ehvzeofrquum IgA <20 [facility] ID Date Data Source [id number] 04/12/2020 09:27:[address] [facility] Value Range Interpretation Code Description Data Adriana rce(s) Supporting Document(s) Anticardiolipin IgA 3.2 CU <20 [facility] Negative ID Date Data Source [id number] 04/12/2020 12:40:[address] [facility] Value Range Interpretation Code Description Data Adriana rce(s) Supporting Document(s) Neutrophil cytoplasmic Ab [Presence] in Serum by Immunofluoresce nce Negative [facility] ID Date Data Source [id number] 04/12/2020 01:09:[address] [facility] Value Range Interpretation Code Description Data Adriana rce(s) Supporting Document(s) Nuclear Ab Pattern Homogenous [Titer] in Serum <80 [facility] Nuclear Ab pattern.speckled [Titer] in Serum 80 1/dil <80 H [facility] Nuclear Ab pattern.rim [Titer] in Serum <80 [facility] Nuclear Ab pattern.nucleolar [Titer] in Serum <80 [facility] ID Date Data Source [id number] 04/12/2020 01:20:[address] [facility] Value Range Interpretation Code Description Data Adriana rce(s) Supporting Document(s) Sjogrens syndrome-A extractable nuclear Ab [Units/volume] in Serum by Immunofluorescence 13 [AU]/mL 0-99 [facility] Sjogrens syndrome-B extractable nuclear Ab [Units/volume] in Serum by Immunofluorescence 8 [AU]/mL 0-99 [facility] Field extractable nuclear Ab [Units/volume] in Serum b y Immunofluorescence 11 [AU]/mL 0-99 [facility] Ribonucleoprotein extractable nuclear Ab [Units/volume] in Serum by Immunofluorescence 17 U/ML 0-[address] [place] [address] SCL-70 extractable nuclear Ab [Units/volume] in Serum 9 [AU]/mL 0-[address] [place] [address] Haley-1 extractable nuclear Ab [Units/volume] in Serum by Immunofluorescence 25 [AU]/mL [address] [place] [address] DNA double strand Ab [Units/volume] in Serum by Immunofluore scence 0 [IU]/mL [address] [place] [address] Centromere Ab [Units/volume] in Serum 13 [AU]/mL [address] [place] [address] Histone IgG Ab [Units/volume] in Serum 12 [AU]/mL [address] [place] [address] ID Date Data Source [id number] 04/12/2020 02:44:[address] [facility] Value Range Interpretation Code Description Data Adriana rce(s) Supporting Document(s) Protein [Mass/volume] in Serum or Plasma 7.2 g/dL 6.4-8.3 [facility] Albumin [Mass/volume] in Serum or Plasma by Electrophoresis 4.98 g/dL 3.80-5.78 [facility] Alpha 1 globulin [Mass/volume] in Serum or Plasma by Electro phoresis 0.15 g/dL 0.08-0.23 [facility] Alpha 2 globulin [Mass/volume] in Serum or Plasma by Electro phoresis 0.61 g/dL 0.45-0.92 [facility] Beta globulin [Mass/volume] in Serum or Plasma by Electropho resis 0.73 g/dL 0.50-1.03 [facility] Gamma globulin [Mass/volume] in Serum or Plasma by Electroph oresis 0.72 g/dL 0.54-1.30 [facility] Protein.monoclonal [Mass/volume] in Serum or Plasma by Electrophoresi s 0 [facility] Normally migrating gamma globulins Pathologist name [facility] ID Date Data Source [id number] 04/13/2020 11:18:[address] [facility] Value Range Interpretation Code Description Data Adriana rce(s) Supporting Document(s) Varicella zoster virus IgG Ab [Presence] in Serum by Immunoassay 4. 32 {ISR} [facility] PositiveIndicates presence of detectable IgGantibody to Varicella-Zoster Virus bythe JORDY test. Indicative of current orprevious infection. ID Date Data Source [id number] 04/13/2020 12:35:[address] [facility] Value Range Interpretation Code Description Data Adriana rce(s) Supporting Document(s) Cardiolipin IgG Ab [Interpretation] in Serum 10.2 U/mL <20.0 [facility] Negative results do not rule out Antipho spholipid syndrome. Additional APL testing should be considered. ID Date Data Source [id number] 04/13/2020 12:35:[address] [facility] Value Range Interpretation Code Description Data Adriana rce(s) Supporting Document(s) Cardiolipin IgM Ab [Interpretation] in Serum 1.0 U/mL <20.0 [facility] Negative results do not rule out Antipho spholipid syndrome. Additional APL testing should be considered. ID Date Data Source [id number] 04/13/2020 02:09:[address] [facility] Value Range Interpretation Code Description Data Adriana rce(s) Supporting Document(s) Angiotensin converting enzyme [Enzymatic activity/volu me] in Serum or Plasma 15 U/L 14-82 [facility] (NOTE)Performed At: [facility] [address] [id number] Morejon MD Ph:[id number] ID Date Data Source [id number] 04/16/2020 10:41:[address] [facility] Value Range Interpretation Code Description Data Adriana rce(s) Supporting Document(s) Aquaporin 4 receptor IgG Ab [Presence] in Serum or Plasma Negative [facility] (NOTE)Recommend repeat testing in 6 [facility] hs if clinical suspicion is high. Negative result can occur in the setting of immunosuppression. ADDITIONAL INFORMATION This test was developed and its performance characteristics determined by [facility] in a manner consistent with CLIA requirements. This test has not been cleared or approved by the [place]. Food and Drug Administration.Test Performed by:[address] [address] Director: Jerry Morse M.D. Ph.D.; CLIA# [id number] ID Date Data Source [id number] 04/17/2020 07:05:[address] [facility] Value Range Interpretation Code Description Data Adriana rce(s) Supporting Document(s) Methylmalonate [Moles/volume] in Serum or Plasma 173 nmol/L 0-378 [facility] Disclaimer [facility] (NOTE)This test was developed and its pe rformance characteristicsdetermined by [facility]. It has not been cleared or approvedby the Food and Drug Administration.Performed At: [id number] [place], [place] [id number] Sanjai MD Ph:[phone] ID Date Data Source [id number] 04/21/2020 02:08:19 PM EDT [facility] Name Value Range Interpretation Code Description Data Adriana rce(s) Supporting Document(s) Index Value 3.39 [facility] HERB virus Ab [Presence] in Serum or Plasma by Immunoassay A [facility] (NOTE)Index interpretive criteria: <0.20 negative 0.20-0.40 indeterminate >0.40 positiveTesting not performedComment(NOTE)Positive: Antibodies to HERB virus (JCV) detected indicating the patient has been exposed to JCV at an undetermined timeNegative: Antibodies to JCV not detectedPerformed At: [facility] [id number] [place], [place] [id number] Jon M MD Ph:[phone] At: [facility] [id number] Morejon MD Ph:[phone](NOTE)Negative: Antibodies to JCV not detected.Inde terminate: Low [...] (natalizumab) Prescribing Information. ID Date Data Source [id number] 04/10/2020 06:38:[address] [facility] Value Range Interpretation Code Description Data Adriana rce(s) Supporting Document(s) Homocysteine [Moles/volume] in Serum or Plasma 58.1 umol/L <15.0 H [facility] HemolyzedConfirmed ID Date Data Source [id number] 04/10/2020 09:06:[address] [facility] Value Range Interpretation Code Description Data Adriana rce(s) Supporting Document(s) C reactive protein [Mass/volume] in Serum or Plasma <8.0 [facility] ID Date Data Source [id number] 04/10/2020 09:06:[address] [facility] Value Range Interpretation Code Description Data Adriana rce(s) Supporting Document(s) Cobalamin (Vitamin B12) [Mass/volume] in Serum or Plasma 353 pg/ml 2 11-946 [facility] ID Date Data Source [id number] 04/10/2020 09:06:[address] [facility] Value Range Interpretation Code Description Data Adriana rce(s) Supporting Document(s) IgG [Mass/volume] in Serum or Plasma 1079 mg/dL 700-1600 [facility] IgA [Mass/volume] in Serum or Plasma 266 mg/dL 70-400 [facility] IgM [Mass/volume] in Serum or Plasma 108 mg/dL 30-230 [facility] ID Date Data Source [id number] 04/10/2020 09:06:[address] [facility] Value Range Interpretation Code Description Data Adriana rce(s) Supporting Document(s) Albumin [Mass/volume] in Serum or Plasma by Bromocresol green (BCG) dye binding method 5.0 g/dL 3.5-5.2 [facility] Bilirubin.total [Mass/volume] in Serum or Plasma 0.7 mg/dL <1.2 [facility] Bilirubin.direct [Mass/volume] in Serum or Plasma <0.3 [facility] Alkaline phosphatase [Enzymatic activity/volume] in Serum or Plasma 83 U/L 40-129 [facility] Aspartate aminotransferase [Enzymatic activity/volume] in Serum or Plasma 13 U/L <40 [facility] Alanine aminotransferase [Enzymatic activity/volume] in Seru m or Plasma 23 U/L <41 [facility] Protein [Mass/volume] in Serum or Plasma 7.7 g/dL 6.4-8.3 [facility] ID Date Data Source [id number] 04/12/2020 12:28:03 PM [facility] Name Value Range Interpretation Code Description Data Adriana rce(s) Supporting Document(s) Lupus anticoagulant neutralization plate let [Time] in Platelet poor plasma by Coagulation assay 7.7 sec <8.0 [facility] ID Date Data Source [id number] 04/10/2020 01:53:00 [place] [address] RESPIRATORY CARE REPORT ==== ---------NAME------- NUMBER SEX AGE ADMIT DISC. XRAY# F/C TYPEMURPHY DELONTE M [id number] M [id number] 04/09/20 04/09/20 [id number] X6B E/R DATE OF : 1985 M/R# [id number] #: [id number] VT-01 LOCATION: [facility] [id number] COMPLETE:04/09/20 1 5:44 [address]60 PHYSICIAN: ALICIA Name Value Range Interpretation Code Description Data Adriana rce(s) Supporting Document(s) ID Date Data Source [id number] 04/10/2020 08:45:[address] [facility] Value Range Interpretation Code Description Data Adriana rce(s) Supporting Document(s) [facility]spital [id number] [file] [id number] ID Date Data Source [id number] 04/10/2020 03:48:39 AM EST [facility] Name Value Range Interpretation Code Description Data Adriana rce(s) Supporting Document(s) Leukocytes [#/volume] in Blood by Automated count 6.9 10*3/uL 4-10 [facility] Erythrocytes [#/volume] in Blood by Automated count 4.51 10*6/uL 4.6- 6.1 L [facility] Hemoglobin [Mass/volume] in Blood 13.7 g/dL 13.5-18 [facility] Hematocrit [Volume Fraction] of Blood by Automated count 39.9 % 4 1-53 L [facility] Erythrocyte mean corpuscular volume [Entitic volume] by Auto mated count 88.4 fL 80-96 [facility] Erythrocyte mean corpuscular hemoglobin [Entitic mass] by Automated count 30.5 pg 27-33 [facility] Erythrocyte mean corpuscular hemoglobin concentration [Mass/volume] by Automated count 34.5 g/dL 32.0-36.0 [facility] Erythrocyte distribution width [Ratio] by Automated count 13.7 % 11.5-14.5 [facility] Platelets [#/volume] in Blood by Automated count 355 10*3/uL 150-400 [facility] Differential cell count method - Blood [facility] Neutrophils/100 leukocytes in Blood by Automated count 45 % [facility] Lymphocytes/100 leukocytes in Blood by Automated count 41 % [facility] Monocytes/100 leukocytes in Blood by Automated count 10 % [facility] Eosinophils/100 leukocytes in Blood by Automated count 4 % [facility] Basophils/100 leukocytes in Blood by Automated count 0 % [facility] Neutrophils [#/volume] in Blood by Automated count 3.08 10*3/uL 1.8-7 .0 [facility] Lymphocytes [#/volume] in Blood by Automated count 2.83 10*3/uL 1.2-4 .0 [facility] Monocytes [#/volume] in Blood by Automated count 0.68 10*3/uL 0-0.8 [facility] Eosinophils [#/volume] in Blood by Automated count 0.28 10*3/uL 0-0.5 [facility] Basophils [#/volume] in Blood by Automated count 0.01 10*3/uL 0-0.2 [facility] Nucleated erythrocytes/100 leukocytes [Ratio] in Blood by Automated count 0 /100{WBCs} 0-0 [facility] ID Date Data Source [id number] 04/10/2020 04:09:13 AM [facility] Name Value Range Interpretation Code Description Data Adriana rce(s) Supporting Document(s) Bicarbonate [Moles/volume] in Serum 23 mmol/L 22-29 [facility] Chloride [Moles/volume] in Serum or Plasma 105 mmol/L 98-107 [facility] Creatinine [Mass/volume] in Serum or Plasma 0.87 mg/dL 0.70-1.20 [facility] Glucose [Mass/volume] in Serum or Plasma 89 mg/dL 70-140 [facility] Potassium [Moles/volume] in Serum or Plasma 3.9 mmol/L 3.4-5.1 [facility] Sodium [Moles/volume] in Serum or Plasma 138 mmol/L 136-145 [facility] Urea nitrogen [Mass/volume] in Serum or Plasma 10 mg/dL 6-20 [facility] Anion gap 3 in Serum or Plasma 10 mmol/L 8-15 [facility] Osmolality of Serum or Plasma by calculation 285 mosm/kg 275-300 [facility] Creatinine/Urea nitrogen [Mass Ratio] in Serum or Plasma 11 [facility] Calcium [Mass/volume] in Serum or Plasma 8.7 mg/dL 8.6-10.0 [facility] Glomerular filtration rate/1.73 sq M pre dicted among non-blacks [Volume Rate/Area] in Serum or Plasma by Creatinine-based formula (MDRD) >6 0 [facility] Glomerular filtration rate/1.73 sq M pre dicted among blacks [Volume Rate/Area] in Serum or Plasma by Creatinine-based formula (MDRD) >60 [facility] ID Date Data Source [id number] 04/09/2020 07:48:25 PM [facility] Name Value Range Interpretation Code Description Data Adriana rce(s) Supporting Document(s) Glucose [Mass/volume] in Capillary blood by Glucometer 98 mg/dL 70- 140 [facility] ID Date Data Source [id number] 04/09/2020 08:12:00 PM EST [facility] Name Value Range Interpretation Code Description Data Adriana rce(s) Supporting Document(s) Leukocytes [#/volume] in Blood by Automated count 8.5 10*3/uL 4-10 [facility] Erythrocytes [#/volume] in Blood by Automated count 4.96 10*6/uL 4.6- 6.1 [facility] Hemoglobin [Mass/volume] in Blood 15.2 g/dL 13.5-18 [facility] Hematocrit [Volume Fraction] of Blood by Automated count 44.3 % 4 1-53 [facility] Erythrocyte mean corpuscular volume [Entitic volume] by Auto mated count 89.3 fL 80-96 [facility] Erythrocyte mean corpuscular hemoglobin [Entitic mass] by Automated count 30.7 pg 27-33 [facility] Erythrocyte mean corpuscular hemoglobin concentration [Mass/volume] by Automated count 34.3 g/dL 32.0-36.0 [facility] Erythrocyte distribution width [Ratio] by Automated count 14.2 % 11.5-14.5 [facility] Platelets [#/volume] in Blood by Automated count 398 10*3/uL 150-400 [facility] Differential cell count method - Blood [facility] Neutrophils/100 leukocytes in Blood by Automated count 52 % [facility] Lymphocytes/100 leukocytes in Blood by Automated count 37 % [facility] Monocytes/100 leukocytes in Blood by Automated count 8 % [facility] Eosinophils/100 leukocytes in Blood by Automated count 2 % [facility] Basophils/100 leukocytes in Blood by Automated count 1 % [facility] Neutrophils [#/volume] in Blood by Automated count 4.43 10*3/uL 1.8-7 .0 [facility] Lymphocytes [#/volume] in Blood by Automated count 3.14 10*3/uL 1.2-4 .0 [facility] Monocytes [#/volume] in Blood by Automated count 0.69 10*3/uL 0-0.8 [facility] Eosinophils [#/volume] in Blood by Automated count 0.17 10*3/uL 0-0.5 [facility] Basophils [#/volume] in Blood by Automated count 0.06 10*3/uL 0-0.2 [facility] Nucleated erythrocytes/100 leukocytes [Ratio] in Blood by Automated count 0 /100{WBCs} 0-0 [facility] ID Date Data Source [id number] 04/09/2020 08:26:36 PM [facility] Name Value Range Interpretation Code Description Data Adriana rce(s) Supporting Document(s) Prothrombin time (PT) 13.3 s 12.5-14.9 [facility] INR in Platelet poor plasma by Coagulation assay 1.00 [facility] Routine intensity oral anticoagulation I NR is typically 2.0-3.0. Target INR must be clinically individualized. ID Date Data Source [id number] 04/09/2020 08:42:50 PM [facility] Name Value Range Interpretation Code Description Data Adriana rce(s) Supporting Document(s) Cholesterol [Mass/volume] in Serum or Plasma 169 mg/dL <200 [facility] Triglyceride [Mass/volume] in Serum or Plasma 157 mg/dL <150 H [facility] Cholesterol in HDL [Mass/volume] in Serum or Plasma 40 mg/dL >40 L [facility] Cholesterol in LDL [Mass/volume] in Serum or Plasma by calcu lation 98 mg/dL <100 [facility] Cholesterol in VLDL [Mass/volume] in Serum or Plasma by calc ulation 31 mg/dl 16-42 [facility] Cholesterol non HDL [Mass/volume] in Serum or Plasma 129 mg/dL <130 [facility] ID Date Data Source [id number] 04/09/2020 08:42:[address] [facility] Value Range Interpretation Code Description Data Adriana rce(s) Supporting Document(s) Albumin [Mass/volume] in Serum or Plasma by Bromocresol green (BCG) dye binding method 4.5 g/dL 3.5-5.2 [facility] Bilirubin.total [Mass/volume] in Serum or Plasma 0.4 mg/dL <1.2 [facility] Calcium [Mass/volume] in Serum or Plasma 9.0 mg/dL 8.6-10.0 [facility] Chloride [Moles/volume] in Serum or Plasma 106 mmol/L 98-107 [facility] Creatinine [Mass/volume] in Serum or Plasma 0.87 mg/dL 0.70-1.20 [facility] Glucose [Mass/volume] in Serum or Plasma 89 mg/dL 70-140 [facility] Alkaline phosphatase [Enzymatic activity/volume] in Serum or Plasma 77 U/L 40-129 [facility] Potassium [Moles/volume] in Serum or Plasma 3.9 mmol/L 3.4-5.1 [facility] Protein [Mass/volume] in Serum or Plasma 7.0 g/dL 6.4-8.3 [facility] Sodium [Moles/volume] in Serum or Plasma 139 mmol/L 136-145 [facility] Aspartate aminotransferase [Enzymatic activity/volume] in Serum or Plasma 13 U/L <40 [facility] Urea nitrogen [Mass/volume] in Serum or Plasma 8 mg/dL 6-20 [facility] Osmolality of Serum or Plasma by calculation 286 mosm/kg 275-300 [facility] Creatinine/Urea nitrogen [Mass Ratio] in Serum or Plasma 9 [facility] Bicarbonate [Moles/volume] in Serum 22 mmol/L 22-29 [facility] Alanine aminotransferase [Enzymatic activity/volume] in Seru m or Plasma 22 U/L <41 [facility] Anion gap 3 in Serum or Plasma 11 mmol/L 8-15 [facility] Glomerular filtration rate/1.73 sq M pre dicted among non-blacks [Volume Rate/Area] in Serum or Plasma by Creatinine-based formula (MDRD) >6 0 [facility] Glomerular filtration rate/1.73 sq M pre dicted among blacks [Volume Rate/Area] in Serum or Plasma by Creatinine-based formula (MDRD) >60 [facility] ID Date Data Source [id number] 04/09/2020 08:42:50 PM [facility] Name Value Range Interpretation Code Description Data Adriana rce(s) Supporting Document(s) Thyrotropin [Units/volume] in Serum or Plasma 2.340 u[IU]/mL 0.270-4. 200 [facility] ID Date Data Source [id number] 04/09/2020 08:26:10 PM [facility] Name Value Range Interpretation Code Description Data Adriana rce(s) Supporting Document(s) Hemoglobin A1c/Hemoglobin.total in Blood by HPLC 5.6 % 4.0-6.0 [facility] (NOTE)<5.7% Average risk of diabetes (ADA)5.7-6.4% Increased risk of diabetes(ADA)>/= 6.5% Diagnostic for diabetes(ADA) Glucose mean value [Mass/volume] in Blood Estimated fr om glycated hemoglobin 114 mg/dL <126 [facility] ID Date Data Source [id number] 04/09/2020 02:47:00 PM [facility] NOT DETECTEDNOT DETECTED{ PROC EDURAL CONTROL VALID KIT LOT # [id number] 04/09/20.1447.DW . KIT EXP DATE _91-15-47 04/09/20.DW . NORMAL RANGE IS NOT DETECTEDNEGATIVE [...] rce(s) Supporting Document(s) ID Date Data Source [id number] 04/14/2020 06:06:00 PM EST [facility] [id number] Name Value Range Interpretation Code Description Data Adriana rce(s) Supporting Document(s) Bacteria identified in Blood by Culture [facility] NO GROWTH AFTER 5 DAYS ID Date Data Source [id number] 04/14/2020 08:04:00 AM EST [facility] [id number] Name Value Range Interpretation Code Description Data [facility] rce(s) Supporting Document(s) TRIMETHOPRIM/SULFAMETHOXAZOLE <0.5/9.5 Mejia sceptible. Indicates for microbiology susceptibilities only. [facility] Amoxicillin+Clavulanate [Susceptibility] by Minimum inhibitory concentration (CHRIS) <4/2 Susceptible. Indicates for microbiology s usceptibilities only. [facility] Ampicillin [Susceptibility] by Minimum inhibitory concentration (CHRIS) <2 Resistant. Indicates for microbiology susceptibilities only. [facility] Ampicillin+Sulbactam [Susceptibility] by Minimum inhib itory concentration (CHRIS) <8/4 Susceptible. Indicates for microbiology suscepti bilities only. [facility] Cefazolin [Susceptibility] by Minimum inhibitory concentration ( CHRIS) <4 Susceptible. Indicates for microbiology susceptibilities only. [facility] Ciprofloxacin [Susceptibility] by Minimum inhibitory concentrati on (CHRIS) <1 Susceptible. Indicates for microbiology susceptibilities only. [facility] Clindamycin [Susceptibility] by Minimum inhibitory concentration (CHRIS) >4 Resistant. Indicates for microbiology susceptibilities only. [facility] Erythromycin [Susceptibility] by Minimum inhibitory concentratio n (CHRIS) >4 Resistant. Indicates for microbiology susceptibilities only. [facility] Gentamicin [Susceptibility] by Minimum inhibitory concentration (CHRIS) <4 Susceptible. Indicates for microbiology susceptibilities only. [facility] Oxacillin [Susceptibility] by Minimum inhibitory concentration ( CHRIS) <0.25 Susceptible. Indicates for microbiology susceptibilities only. [facility] Penicillin [Susceptibility] by Minimum inhibitory concentration (CHRIS) >8 Resistant. Indicates for microbiology susceptibilities only. [facility] Tetracycline [Susceptibility] by Minimum inhibitory concentratio n (CHRIS) <4 Susceptible. Indicates for microbiology susceptibilities only. [facility] Vancomycin [Susceptibility] by Minimum inhibitory concentration (CHRIS) 1 Susceptible. Indicates for microbiology susceptibilities only. [facility] Levofloxacin [Susceptibility] by Minimum inhibitory concentratio n (CHRIS) <1 Susceptible. Indicates for microbiology susceptibilities only. [facility] Moxifloxacin [Susceptibility] by Minimum inhibitory concentratio n (CHRIS) <0.5 Susceptible. Indicates for microbiology susceptibilities only. [facility] ID Date Data Source [id number] 04/19/2020 09:32:00 AM EDT [facility] Name Value Range Interpretation Code Description Data Adriana rce(s) Supporting Document(s) CULTURE BLOOD [facility] spital _CULTURE BLOOD_ TEST PERFORM ED AT [address] [address] CLIA# [id number] SEE SCANNED REPORT{ PRELIM ID Date Data Source [id number] 04/09/2020 02:12:00 PM EST [facility] Name Value Range Interpretation Code Description Data Adriana rce(s) Supporting Document(s) COMPREHENSIVE METABOLIC PANEL [facility] COMPREHENSIVE METABOLIC PANEL Sodium [Moles/volume] in Serum or Plasma 133 mEq/L 134 - 153 L [facility] Potassium [Moles/volume] in Serum or Plasma 4.4 mEq/L 3.6 - 5.0 [facility] Chloride [Moles/volume] in Serum or Plasma 99 mEq/L 98 - 107 [facility] Carbon dioxide, total [Moles/volume] in Serum or Plasma 23 MEQ/L 22 - 30 [facility] Glucose [Mass/volume] in Serum or Plasma 89 MG/DL 70 - 99 [facility] BUN 10 MG/DL 7 - 21 [facility] Creatinine [Mass/volume] in Serum or Plasma 0.9 MG/DL 0.7 - 1.5 [facility] BUN/CREAT 11 8 - 27 [facility] Protein [Mass/volume] in Serum or Plasma 7.7 G/DL 6.3 - 8.2 [facility] Albumin [Mass/volume] in Serum or Plasma 5.0 G/DL 3.9 - 5.0 [facility] Globulin [Mass/volume] in Serum by calculation 2.7 GM/DL 2.4 - 3.2 [facility] A/G RATIO 1.9 0.8 - 2.0 [facility] Calcium [Mass/volume] in Serum or Plasma 9.8 MG/DL 8.4 - 10.2 [facility] Bilirubin.total [Mass/volume] in Serum or Plasma <0.7 MG/DL 0.2 - 1.3 [facility] Alkaline phosphatase [Enzymatic activity/volume] in Serum or Plasma 79 U/L 38 - 126 [facility] Aspartate aminotransferase [Enzymatic activity/volume] in Serum or Plasma 14 U/L 5 - 40 [facility] Alanine aminotransferase [Enzymatic activity/volume] in Seru m or Plasma 25 U/L 7 - 56 [facility] Anion gap 3 in Serum or Plasma 11.0 mmol/L 8.0 - 16.0 [facility] AGE 34 yrs [facility] NON-AA GFR >60 mL/min [facility] ital AFR AMER GFR >60 mL/min [facility] Male GFR In terprentation 20-49 [...] >32 mL/min Normal ID Date Data Source [id number] 04/09/2020 02:05:00 PM [facility] Name Value Range Interpretation Code Description Data Adriana rce(s) Supporting Document(s) Magnesium [Mass/volume] in Serum or Plasma 2.1 MG/DL 1.7 - 2.2 [facility] ID Date Data Source [id number] 04/09/2020 01:42:00 PM [facility] Name Value Range Interpretation Code Description Data Adriana rce(s) Supporting Document(s) Prothrombin time (PT) 12.7 SECONDS 11.0 - 15.5 [facility] INR in Platelet poor plasma by Coagulation assay 0.91 0.93 - 1. 23 L [facility] aPTT in Blood by Coagulation assay 28.5 SECONDS 24.8 - 36.7 [facility] \\BLDo\\INR INTERPRETATION\\BLDx\\ Therapeutic range for Coumadin and related oral anticoagulants. - International Normalized Ratio (INR): 2.0 - 3.0 for Venous Thrombosis, Pulmonary Embolus, Tissue heart valves, Acute AL Atrial Fibrillation, Valvular heart disease and recurrent Systemic Embolism. - International Normalized Ratio (INR): 2.5 - 3.5 for Mechanical Prosthetic valve. ID Date Data Source [id number] 04/09/2020 01:42:00 PM [facility] Name Value Range Interpretation Code Description Data Adriana rce(s) Supporting Document(s) Fibrinogen [Mass/volume] in Platelet poor plasma by Co agulation assay 285.0 mg/dL 179 - 506 [facility] ID Date Data Source [id number] 04/09/2020 12:59:00 PM [facility] Name Value Range Interpretation Code Description Data Adriana rce(s) Supporting Document(s) CBC W/AUTOMATED DIFF [facility] COMPLETE BLOOD COUNT Leukocytes [#/volume] in Blood by Automated count 8.9 10^3/uL 4.2 - 1 1.0 [facility] Erythrocytes [#/volume] in Blood by Automated count 5.30 10^6/uL 4. 50 - 6.30 [facility] Hemoglobin [Mass/volume] in Blood 16.4 g/dL 14.0 - 16.0 H [facility] Hematocrit [Volume Fraction] of Blood by Automated count 46.1 % 4 1.0 - 51.0 [facility] Erythrocyte mean corpuscular volume [Entitic volume] by Auto mated count 87.0 fL 80.0 - 94.0 [facility] Erythrocyte mean corpuscular hemoglobin [Entitic mass] by Automated count 30.9 pg 27.0 - 34.0 [facility] Erythrocyte mean corpuscular hemoglobin concentration [Mass/volume] by Automated count 35.6 g/dL 31.0 - 36.0 [facility] Erythrocyte distribution width [Ratio] by Automated count 12.6 % 11.5 - 14.8 [facility] Platelets [#/volume] in Blood by Automated count 458 10^3/uL 150 - 45 0 H [facility] Platelet mean volume [Entitic volume] in Blood by Automated count 9.2 fL 7.4 - 10.4 [facility] Neutrophils/100 leukocytes in Blood by Automated count 59.1 % 37. 0 - 80.0 [facility] Lymphocytes/100 leukocytes in Blood by Manual count 30.6 % 25.0 - 40.0 [facility] Monocytes/100 leukocytes in Blood by Automated count 7.8 % 3.0 - 8.0 [facility] Eosinophils/100 leukocytes in Blood by Automated count 1.6 % 0.0 - 7.0 [facility] Basophils/100 leukocytes in Blood by Automated count 0.6 % 0.0 - 2.0 [facility] %IG 0.3 % 0.0 - 0.0 H [facility] al %NRBC 0.0 % 0.0 - 0.0 [facility] al Neutrophils [#/volume] in Blood by Automated count 5.28 10^3/uL 2.00 - 6.90 [facility] Lymphocytes [#/volume] in Blood by Automated count 2.73 10^3/uL 0.60 - 3.40 [facility] Monocytes [#/volume] in Blood by Automated count 0.70 10^3/uL 0.00 - 0.90 [facility] Eosinophils [#/volume] in Blood by Automated count 0.14 10^3/uL 0.00 - 0.70 [facility] Basophils [#/volume] in Blood by Automated count 0.05 10^3/uL 0.00 - 0.20 [facility] #IG 0.03 10^3/uL 0.00 - 0.10 [facility]spital #NRBC 0.00 10^3/uL 0.00 - 0.00 [facility] MANUAL DIFF NOT INDICATED [facility] RBC MORPH NOT INDICATED [facility] spital ID Date Data Source [id number] 04/09/2020 12:52:00 PM [facility] Name Value Range Interpretation Code Description Data Adriana rce(s) Supporting Document(s) pH of Serum or Plasma 7.47 7.32 - 7.43 H [facility] pCO2 V 33.7 mm/HG 38.0 - 51.[address] [facility] pO2 V 25.9 mm/HG 30.0 - 55.[address] [facility] Bicarbonate [Moles/volume] in Venous blood 24.0 meq/L 22.0 - 29.0 [facility] TCO2 V 25.1 meq/L 22.0 - 29.0 [facility] Base excess in Blood by calculation 1.1 -2.0 - 2.0 [facility] O2 SAT V 52.6 % 40.0 - 85.0 [facility] ID Date Data Source [id number] 04/11/2020 06:29:00 AM [facility] #[id number] CALLED TO MAYITO JOAQUIN AT 0630 ON 04/11/20 BY NEAL.RESULTS READ BACK.The Vetiary BCID Panel is a qualitative multiplexednucleic acid-based [...] rce(s) Supporting Document(s) ID Date Data Source [id number] 04/11/2020 06:31:00 AM [facility] Name Value Range Interpretation Code Description Data [facility] rce(s) Supporting Document(s) CULTURE BLOOD [facility] spital _CULTURE BLOOD_ TEST [place] [address] CLIA# [id number] SEE SCANNED REPORT{ PRELIM GROWTH OF STAPH SPECIES, PT TRANSFERRED ID Date Data Source [id number] 03/31/2020 12:33:00 PM [facility] [address] [place] [address] PHONE: [phone] FAX: [phone] Name .................. : JAUN Meyer Acct Number.................. : [id number] ROOM. ................. : TR-05 Number ................... : [id number] Stay type ............. : E/R Discharge Date......... ... : 03/29/20 Admit Date ......... : 03/29/20 Admit Phys .................... : IVAN KIRK Date of ....... : 1985 Family Phys ................... : ALEX KEANE Phone .................. : [phone] Age ................................ : 34 Film# .................. .:[id number] Sex ................................. : M Unsigned transcriptions are preliminary reports and do not represent a medical or legal document CT HEAD W/O CONTRAST [id number] COMPLETE:03/29/20 14:23 MADHAV 4855 Reason(s): L sided [...] By ALEXANDRA HOUSE MD , 03/31/20 14:01, [facility] Transcribe Initials: [facility], Transcribe Date: 03/31/20 12:33, Dictation Date: Page 1 of 2 [facility] [address] [place] [address] [place] [address] PHONE: [phone] FAX: [phone] Name .................. : JAUN Meyer Acct Number.................. : [id number] ROOM. ................. : TR-05 MR Number ................... : [id number] Stay type ............. : E/R Discharge Date......... ... : 03/29/20 Admit Date ......... : 03/29/20 Admit Phys .................... : IVAN KIRK Date of ....... : 1985 Family Phys ................... : ALEX KEANE Phone .................. : [phone] Age ................................ : 34 Film# .................. .:[id number] Sex ................................. : M Unsigned transcriptions are preliminary reports and do not represent a medical or legal document CT HEAD W/O CONTRAST [id number] COMPLETE:03/29/20 14:23 MADHAV 4855 Reason(s): L sided UE numbness/double vision Copy for: MYRON Wolf via fax Copy for: EMERGENCY DEPT via modem Copy for: 710 MED REC DISCHARGED Page 2 of 2 Name Value Range Interpretation Code Description Data Adriana rce(s) Supporting Document(s) ID Date Data Source [id number] 03/30/2020 06:35:00 PM EST [facility] [address] [place] [address] PHONE: [phone] FAX: [phone] Name .................. : JAUN Meyer Acct Number.................. : [id number] ROOM. ................. : TR-05 Number ................... : [id number] Stay type ............. : E/R Discharge Date......... ... : 03/29/20 Admit Date ......... : 03/29/20 Admit Phys .................... : IVAN KIRK Date of ....... : 1985 Family Phys ................... : ALEX KEANE Phone .................. : [phone] Age ................................ : 34 Film# .................. .:[id number] Sex ................................. : M Unsigned transcriptions are preliminary reports and do not represent a medical or legal document CT CTA HEAD W CONTRAST INC PP [id number] COMPLETE:03/29/20 14:23 MADHAV 4856 Reason(s): L sided [...] are widely patent. There is an incomplete shishmaref ira of [place] with an absent left posterior [...] By Maninder Luis M.D. , 03/30/20 18:35, [facility] Transcribe Initials: MELANIE , Transcribe Date: 03/29/20 19:16, Dictation Date: Page 1 of 2 [place] [address] PHONE: [phone] FAX: [phone] Name .................. : JAUN MCNEIL Betsy Acct Number.................. : [id number] ROOM. ................. : TR-05 Number ................... : [id number] Stay type ............. : E/R Discharge Date......... ... : 03/29/20 Admit Date .... ..... : 03/29/20 Admit Phys .................... : IVAN KIRK Date of ....... : 1985 Family Phys ................... : ALEX KEANE Phone .................. : [phone] Age ................................ : 34 Film# .................. .:[id number] Sex ................................. : M Unsigned transcriptions are preliminary reports and do not represent a medical or legal document CT CTA HEAD W CONTRAST INC PP [id number] COMPLETE:03/29/20 14:23 MADHAV 4856 Reason(s): L sided UE numbness double vision Copy for: MYRON Wolf via fax Copy for: EMERGENCY DEPT via modem Copy for: 710 MED REC DISCHARGED Page 2 of 2 Name Value Range Interpretation Code Description Data Adriana rce(s) Supporting Document(s) ID Date Data Source [id number] 03/30/2020 06:34:00 [place] [address] PHONE: [phone] FAX: [phone] Name .................. : JAUN GARCIAN Betsy Acct Number.................. : [id number] ROOM. ................. : TR-05 Number ................... : [id number] Stay type ............. : E/R Discharge Date......... ... : 03/29/20 Admit Date ......... : 03/29/20 Admit Phys .................... : IVAN KIRK Date of ....... : 1985 Family Phys ................... : ALEX KEANE Phone .................. : [phone] Age ................................ : 34 Film# .................. .:[id number] Sex ................................. : M Unsigned transcriptions are preliminary reports and do not represent a medical or legal document CT CTA NECK W CONT INC PP [id number] COMPLETE:03/29/20 14:23 MADHAV 4857 Reason(s): L sided [...] [address] Page 1 of 2 [place] [address] PHONE: [phone] FAX: [phone] Name .................. : JAUN Meyer Acct Number.................. : [id number] ROOM. ................. : TR-05 MR Number ................... : [id number] Stay type ............. : E/R Discharge Date......... ... : 03/29/20 Admit Date ..... .... : 03/29/20 Admit Phys .................... : IVAN KIRK Date of ....... : 1985 Family Phys ................... : JOHNSON DIYA Phone .................. : [phone] Age ................................ : 34 Film# .................. .:[id number] Sex ................................. : M Unsigned transcriptions are preliminary reports and do not represent a medical or legal document CT CTA NECK W CONT INC PP [id number] COMPLETE:03/29/20 14:23 MADHAV 4857 Reason(s): L sided [...] rce(s) Supporting Document(s) ID Date Data Source [id number] 03/30/2020 06:22:00 PM EST [facility] [address] [place] [address] PHONE: [phone] FAX: [phone] Name .................. : JAUN Meyer Acct Number.................. : [id number] ROOM. ................. : TR-05 Number ................... : [id number] Stay type ............. : E/R Discharge Date......... ... : 03/29/20 Admit Date ......... : 03/29/20 Admit Phys .................... : IVAN KIRK Date of ....... : 1985 Family Phys ................... : [employer] Phone .................. : [phone] Age ................................ : 34 Film# .................. .:[id number] Sex ................................. : M Unsigned transcriptions are preliminary reports and do not represent a medical or legal document CHEST PORTABLE [id number] COMPLETE:03/29/20 13:01 NAT 4858 Reason(s): L UE numbness/double vision AP PORTABLE CHEST X- RAY: FINDINGS: The cardiac and mediastinal silhouettes appear normal and the lungs are clear. The bones and soft tissues are normal. The upper abdomen is unremarkable. IMPRESSION: No acute disease identifiable. Electronically Reviewed and Signed By ALEXANDRA HOUSE MD , 03/30/20 18:22, [facility] Transcribe Initials: DZ , Transcribe Date: 03/29/20 17:13, Dictation Date: Copy for: MYRON Wolf via fax Copy for: EMERGENCY DEPT via [facility] Copy for: 710 MED REC DISCHARGED Page 1 of 1 Name Value Range Interpretation Code Description Data Adriana rce(s) Supporting Document(s) ID Date Data Source [id number] 03/30/2020 08:03:00 [place] [address] RESPIRATORY CARE REPORT ==== ---------NAME------- NUMBER SEX AGE ADMIT DISC. XRAY# F/C TYPEMURPHY DELONTE Meyer [id number] 03/29/20 03/29/20 [id number] X6B E/R DATE OF : 1985 M/R# [id number] #: [id number] TR-05 LOCATION: EMERGENCY DEPT EKG [id number] COMP LETE:03/29/20 14:05 ED [id number] PHYSICIAN: IVAN CARLSON Name Value Range Interpretation Code Description Data Adriana rce(s) Supporting Document(s) ID Date Data Source [id number] 03/29/2020 11:40:00 AM [facility] 1 OrderSheet [facility] Emergency Department [address] [place] [address] Phone #: ext- [phone] 03/29/2020 11:30 Patient: [...] sided UE numbness double vision 2 OrderSheet [facility] Emergency Department [address] [place] [address] Phone #: ext- [phone] 03/29/2020 11:30 Patient: DELONTE ZAMORANO Sex: M [...] InitialedCardiac Monitor 12:03/29/2020 12:22 Daryn(continuous) Tonio CHAVEZ; tuyere fitter, [facility] [id number] Pressure 12:03/29/2020 12:22 hCaya CHAVEZ; tuyere fitter, [facility] Fvxt0OST 12:03/29/2020 12:22 Daryn CHAVEZ; tuyere fitter, [facility] Fykn3Gqxswubqbhn stroke 12:03/29/2020 12:30 Nolan SBP<160, Tonio CHAVEZ; [place] RNDBP<90 mmHgIschemic stroke 12:21 03/29/2020 12:30 Nolan SBP<220, Tonio CHAVEZ; [place] SOSA 3 OrderSheet [facility] Emergency Department [address] [place] [address] Phone #: ext- [phone] 03/29/2020 11:30 Patient: DELONTE ZAMORANO Sex: M : 1985 Age: 34yDBP<120 mmHgNPO 12:21 03/29/2020 12:30 Livan CHAVEZ; [place] RNPulse Oximetry 12:21 03/29/2020 12:30 LivanContinuous Tonio CHAVEZ; [place] RNVitals 12:21 03/29/2020 12:30 Livan CHAVEZ; [place] SOSAWarm blanket 12:21 03/29/2020 12:30 Livan CHAVEZ; [place] SOSAObtain Old EKG 12:21 03/29/2020 12:30 Livan CHAVEZ; [place] RN[Electronically signed by Sandy Dimas R.N. (14:54 03/29/2020)][Electronically signed by Tonio Lara (15:10 03/29/2020)][Electronically locked by Sandy Dimas R.N. (14:54 03/29/2020)] Name Value Range Interpretation Code Description Data Adriana rce(s) Supporting Document(s) ID Date Data Source [id number] 03/29/2020 11:40:00 AM EST [facility] 1 Medication Reconciliation Report [facility] Emergency Department [address] [place] [address] Phone #: ext- [phone] 03/29/2020 11:30 [id number] Sex: M : 1985 Age: 34yWeight: 99.9 [...] rce(s) Supporting Document(s) ID Date Data Source [id number] 03/29/2020 11:40:00 AM EST [facility] 1 Medication Administration Record [facility] Emergency Department [address] [place] [address] Phone #: ext- [phone] 03/29/2020 11:30 Patient: [...] rce(s) Supporting Document(s) ID Date Data Source [id number] 03/29/2020 11:40:00 AM EST [facility] 1 General Instructions [facility] Emergency Department [address] [place] [address] Phone #: ext- [phone] 03/29/2020 11:30 Patient: [...] ADDITIONAL INFORMATIONVertigo (Unknown Cause) 2 General Instructions [facility] Emergency Department [address] [place] [address] Phone #: ext- [phone] 03/29/2020 11:30 Patient: [...] as loose electrical cords 3 General Instructions [facility] Emergency Department [address] [place] [address] Phone #: ext- [phone] 03/29/2020 11:30 Patient: [...] nausea, vomiting, and dizziness, you may use lqew-zzb-[id number] motion sickness pills. Ask your pharmacist for [...] speech or vision Loss of consciousness Seizure [id number] [employer]. [address] [place] [address]. All rights reserved. This information is not intended as asubstitute for professional medical care. Always follow your healthcare professional's instructions. You have been given the following additional information: Vertigo, Unspecified No strenuous activity until better. Rest at home today. Do not work for three days. 4 General Instructions [facility] Emergency Department [address] [place] [address] Phone #: ext- [phone] 03/29/2020 11:30 Patient: DELONTE ZAMORANO Sex: M : 1985 Age: 34y(Electronically signed by KATHY Garcia 03/29/2020 15:10) Name Value Range Interpretation Code Description Data Adriana rce(s) Supporting Document(s) ID Date Data Source [id number] 03/29/2020 11:40:00 AM EST [facility] 1 Clinical Report - Nurses [facility] Emergency Department [address] [place] [address] Phone #: ext- [phone] 03/29/2020 11:30 Patient: DELONTE ZAMORANO Sex: M [...] has had ear pain, nausea and troublewalking.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 SEPSIS SCREEN NEGATIVE. [...] 12:10 03/29/20 2 Clinical Report - Nurses [facility] Emergency Department [address] [place] [address] Phone #: ext- [phone] 03/29/2020 11:30 Patient: [...] to room. 3 Clinical Report - Nurses [facility] Emergency Department [address] [place] [address] Phone #: ext- [phone] 03/29/2020 11:30 Patient: DELONTE ZAMORANO Sex: M [...] monitor and pulse oximeter placed on patient; potline monitor- Lead II; monitora larms on. Patient gowned. [...] and shown to the PA. --12:30 03/29/20 [facility] Grubbs ER Tech1 12:36 03/29/2020 [...] Dimas R.N. 4 Clinical Report - Nurses [facility] Emergency Department [address] [place] [address] Phone #: ext- [phone] 03/29/2020 11:30 Patient: [...] Patient verbalized understanding. Written instructions provided in Kittitian. The patient was discharged by the physician surgeon's assistant. He was discharged home and accompanied [...] rce(s) Supporting Document(s) ID Date Data Source [id number] 03/29/2020 11:40:00 AM EST [facility] 1 Clinical Report - Physicians/Mid Levels [facility] Emergency Department [address] [place] [address] Phone #: ext- [phone] 03/29/2020 11:30 Patient: [...] discs. 2 Clinical Report - Physicians/Mid Levels [facility] Emergency Department [address] [place] [address] Phone #: ext- [phone] 03/29/2020 11:30 Patient: [...] marijuana. 3 Clinical Report - Physicians/Mid Levels [facility] Emergency Department [address] [place] [address] Phone #: [phone]- [phone] 03/29/2020 11:30 Patient: DELONTE ZAMORANO Sex: M [...] results 4 Clinical Report - Physicians/Mid Levels [facility] Emergency Department [address] [place] [address] Phone #: ext- [phone] 03/29/2020 11:30 Patient: [...] Male GFR Interprentation 20-49 yrs >60 mL/min Phhjyt49-90 yrs >56 mL/min Normal 60-69 yrs >49 mL/min Normal 70-79yrs>42 mL/min Normal 80 and above >35 mL/min Normal Female GFRInterpretation 20-39 yrs >60 mL/min Normal 40-49 yrs >58 mL/min 5 Clinical Report - Physicians/Mid Levels [facility] Emergency Department [address] [place] [address] Phone #: ext- [phone] 03/29/2020 11:30 Patient: [...] Thrombosis, Pulmonary Embolus, Tissue heart valves, Acute AL Atrial Fibrillation, Valvular heart disease and recurrent Systemic Embolism. -International Normalized Ratio (INR): 2.5 - 3.5 for Mechanical Prosthetic valve. Troponin-T: (PORTIA: 03/29/2020 12:48) ( [facility] 03/29/2020 13:31) Final results Test Result Flag Units (Reference) TROPONIN T <0.01 NG/ML (0.00 - 0.10) TROPONIN T0.1 ng/ml Recommended as the clinical threshold value forTroponin T. EKG: (PORTIA: 03/29/2020 12:21) ( [facility] 03/29/2020 14:17) In Progress CT Head W/O Cont: (PORTIA: 03/29/2020 12:21) ( [facility] 03/29/2020 14:23) In [place] CT HEAD W/O CONTRAST Reason(s): L sided UE numbness/double vision TRANSPORTATION: S IV? O2? Oxygen?(No) Room: ED CT CTA HEAD W CONTRAST INC PP: (PORTIA: 03/29/2020 12:21) ( [facility] 03/29/2020 14:23) In Progress CT CTA HEAD [...] ED. 6 Clinical Report - Physicians/Mid Levels [facility] Emergency Department [address] [place] [address] Phone #: ext- [phone] 03/29/2020 11:30 Patient: [id number] Sex: M : 1985 Age: 34yPROGRESS AND [...] care. 7 Clinical Report - Physicians/Mid Levels [facility] Emergency Department [address] [place] [address] Phone #: ext- [phone] 03/29/2020 11:30 Patient: DELONTE ZAMORANO Sex: M : 1985 Age: 34y(Electronically signed by KATHY Garcia 03/29/2020 15:10) Name Value Range Interpretation Code Description Data Adriana rce(s) Supporting Document(s) ID Date Data Source [id number] 03/29/2020 01:30:00 PM [facility] Name Value Range Interpretation Code Description Data Adriana rce(s) Supporting Document(s) TROPONIN T <0.01 NG/ML 0.00 - 0.10 [facility] ospital TROPONIN T0.1 ng/ml Recommended as the c linical threshold value forTroponin T. ID Date Data Source [id number] 03/29/2020 01:26:00 PM [facility] Name Value Range Interpretation Code Description Data Adriana rce(s) Supporting Document(s) COMPREHENSIVE METABOLIC PANEL [facility] COMPREHENSIVE METABOLIC PANEL Sodium [Moles/volume] in Serum or Plasma 139 mEq/L 134 - 153 [facility] Potassium [Moles/volume] in Serum or Plasma 4.3 mEq/L 3.6 - 5.0 [facility] Chloride [Moles/volume] in Serum or Plasma 105 mEq/L 98 - 107 [facility] Carbon dioxide, total [Moles/volume] in Serum or Plasma 26 MEQ/L 22 - 30 [facility] Glucose [Mass/volume] in Serum or Plasma 95 MG/DL 70 - 99 [facility] BUN 11 MG/DL 7 - 21 [facility] Creatinine [Mass/volume] in Serum or Plasma 1.0 MG/DL 0.7 - 1.5 [facility] BUN/CREAT 11 8 - 27 [facility] Protein [Mass/volume] in Serum or Plasma 7.1 G/DL 6.3 - 8.2 [facility] Albumin [Mass/volume] in Serum or Plasma 4.3 G/DL 3.9 - 5.0 [facility] Globulin [Mass/volume] in Serum by calculation 2.8 GM/DL 2.4 - 3.2 [facility] A/G RATIO 1.5 0.8 - 2.0 [facility] Calcium [Mass/volume] in Serum or Plasma 9.1 MG/DL 8.4 - 10.2 [facility] Bilirubin.total [Mass/volume] in Serum or Plasma <0.7 MG/DL 0.2 - 1.3 [facility] Alkaline phosphatase [Enzymatic activity/volume] in Serum or Plasma 80 U/L 38 - 126 [facility] Aspartate aminotransferase [Enzymatic activity/volume] in Serum or Plasma 12 U/L 5 - 40 [facility] Alanine aminotransferase [Enzymatic activity/volume] in Seru m or Plasma 30 U/L 7 - 56 [facility] Anion gap 3 in Serum or Plasma 8.0 mmol/L 8.0 - 16.0 [facility] AGE 34 yrs [facility] al NON-AA GFR >60 mL/min [facility] ital AFR AMER GFR >60 mL/min [facility] Male GFR In terprentation 20-49 [...] >32 mL/min Normal ID Date Data Source [id number] 03/29/2020 01:23:00 PM [facility] Name Value Range Interpretation Code Description Data Adriana rce(s) Supporting Document(s) Prothrombin time (PT) 12.5 SECONDS 11.0 - 15.5 [facility] INR in Platelet poor plasma by Coagulation assay 0.89 0.93 - 1. 23 L [facility] aPTT in Blood by Coagulation assay 27.1 SECONDS 24.8 - 36.7 [facility] \\BLDo\\INR INTERPRETATION\\BLDx\\ Therapeutic range for Coumadin and related oral anticoagulants. - International Normalized Ratio (INR): 2.0 - 3.0 for Venous Thrombosis, Pulmonary Embolus, Tissue heart valves, Acute AL Atrial Fibrillation, Valvular heart disease and recurrent Systemic Embolism. - International Normalized Ratio (INR): 2.5 - 3.5 for Mechanical Prosthetic valve. ID Date Data Source [id number] 03/29/2020 01:13:00 PM [facility] Name Value Range Interpretation Code Description Data Adriana rce(s) Supporting Document(s) Lactate [Moles/volume] in Serum or Plasma 1.8 MMOL/L 0.2 - 2.2 [facility] ID Date Data Source [id number] 03/29/2020 01:09:00 PM [facility] Name Value Range Interpretation Code Description Data Adriana rce(s) Supporting Document(s) CBC W/AUTOMATED DIFF [facility] COMPLETE BLOOD COUNT Leukocytes [#/volume] in Blood by Automated count 9.3 10^3/uL 4.2 - 1 1.0 [facility] Erythrocytes [#/volume] in Blood by Automated count 4.80 10^6/uL 4. 50 - 6.30 [facility] Hemoglobin [Mass/volume] in Blood 14.8 g/dL 14.0 - 16.0 [facility] Hematocrit [Volume Fraction] of Blood by Automated count 41.4 % 4 1.0 - 51.0 [facility] Erythrocyte mean corpuscular volume [Entitic volume] by Auto mated count 86.3 fL 80.0 - 94.0 [facility] Erythrocyte mean corpuscular hemoglobin [Entitic mass] by Automated count 30.8 pg 27.0 - 34.0 [facility] Erythrocyte mean corpuscular hemoglobin concentration [Mass/volume] by Automated count 35.7 g/dL 31.0 - 36.0 [facility] Erythrocyte distribution width [Ratio] by Automated count 12.4 % 11.5 - 14.8 [facility] Platelets [#/volume] in Blood by Automated count 447 10^3/uL 150 - 45 0 [facility] Platelet mean volume [Entitic volume] in Blood by Automated count 9.0 fL 7.4 - 10.4 [facility] Neutrophils/100 leukocytes in Blood by Automated count 64.6 % 37. 0 - 80.0 [facility] Lymphocytes/100 leukocytes in Blood by Manual count 23.7 % 25.0 - 40.0 L [facility] Monocytes/100 leukocytes in Blood by Automated count 9.0 % 3.0 - 8.0 H [facility] Eosinophils/100 leukocytes in Blood by Automated count 1.7 % 0.0 - 7.0 [facility] Basophils/100 leukocytes in Blood by Automated count 0.7 % 0.0 - 2.0 [facility] %IG 0.3 % 0.0 - 0.0 [facility] %NR[facility] 0.0 % 0.0 - 0.0 [facility] al Neutrophils [#/volume] in Blood by Automated count 6.03 10^3/uL 2.00 - 6.90 [facility] Lymphocytes [#/volume] in Blood by Automated count 2.21 10^3/uL 0.60 - 3.40 [facility] Monocytes [#/volume] in Blood by Automated count 0.84 10^3/uL 0.00 - 0.90 [facility] Eosinophils [#/volume] in Blood by Automated count 0.16 10^3/uL 0.00 - 0.70 [facility] Basophils [#/volume] in Blood by Automated count 0.07 10^3/uL 0.00 - 0.20 [facility] #IG 0.03 10^3/uL 0.00 - 0.10 [facility] #NRBC 0.00 10^3/uL 0.00 - 0.00 [facility] MANUAL DIFF NOT INDICATED [facility] RBC MORPH NOT INDICATED [facility] ID Date Data Source [id number] 01/23/2020 06:09:00 AM EST TOWANDA ([facility]) Name Value Range Interpretation Code Description Data Adriana rce(s) Supporting Document(s) glucose, fasting 87 mg/dL 70-100 Glucose, Fasting AT [facility]) creatinine for GFR 1.02 mg/dL 0.70-1.30 Creatinine for GF R TOWANDA ([facility]) blood urea nitrogen 8 mg/dL 7-18 Blood Urea Nitro gen TOWANDA ([facility]) glomerular filtration rate > 60.0 >60 Glomerula r Filtration Rate TOWANDA ([facility]) sodium level 140 mEq/L 136-145 Sodium Level TOWANDA ([facility]) potassium serum 3.8 mEq/L 3.5-5.1 [facility] chloride level 107 mEq/L 98-107 Chloride Level TOWANDA ([facility]) carbon dioxide level 25 mEq/L 21-32 Carbon Dioxide Level TOWANDA ([facility]) calcium level 8.3 mg/dL 8.5-10.1 Below low normal Calcium Level AT [facility]) anion gap 8 mEq/L 8-16 Anion Gap TOWANDA ([facility]) ID Date Data Source [id number] 01/23/2020 06:09:00 AM EST TOWANDA ([facility]) Name Value Range Interpretation Code Description Data Adriana rce(s) Supporting Document(s) red blood count 4.60 10 4.30-6.10 Red Blood [facility] white blood count 6.1 10 4.0-10.0 White Blood Count TOWANDA ([facility]) hemoglobin 14.0 g/dL 13.5-17.5 Hemoglobin MARJORIE ([facility]) hematocrit 40.2 % 42.0-52.0 Below low normal Hematocrit MARJORIE ( [facility]) mean corpuscular volume 87.4 fL 80.0-96.0 Mean Corpusc ular Volume MARJORIE ([facility]) mean corpuscular hemoglobin 30.4 pg 27.0-33.0 Mean Cor puscular Hemoglobin MARJORIE ([facility]) mean corpuscular HGB conc 34.8 g/dL 32.0-36.5 Mean Corpu scular HGB Conc TOWANDA ([facility]) red cell distribution width 12.3 % 11.5-14.5 Red Cell Distribution Width TOWANDA ([facility]) platelet count, automated 283 10 150-450 Platelet C ount, Automated TOWANDA ([facility]) nucleated red blood cell % 0.0 % 0-0 Nucleated Red Blood Cell % TOWANDA ([facility]) ID Date Data Source [id number] 01/23/2020 06:09:00 AM EST TOWANDA ([facility]) Name Value Range Interpretation Code Description Data Adriana rce(s) Supporting Document(s) glucose, fasting 87 mg/dL 70-100 Glucose, Fasting AT [facility]) blood urea nitrogen 8 mg/dL 7-18 Blood Urea Nitro gen TOWANDA ([facility]) creatinine for GFR 1.02 mg/dL 0.70-1.30 Creatinine for GF R MARJORIE ([facility]) glomerular filtration rate > 60.0 >60 Glomerula r Filtration Rate MARJORIE ([facility]) chloride level 107 mEq/L 98-107 Chloride Level TOWANDA ([facility]) sodium level 140 mEq/L 136-145 Sodium Level MARJORIE ([facility]) potassium serum 3.8 mEq/L 3.5-5.1 Potassium Serum ATH NA ([facility]) anion gap 8 mEq/L 8-16 Anion Gap TOWANDA ([facility]) carbon dioxide level 25 mEq/L 21-32 Carbon Dioxide Level TOWANDA ([facility]) calcium level 8.3 mg/dL 8.5-10.1 Below low normal Calcium Level AT [facility] ([facility]) ID Date Data Source [id number] 01/23/2020 06:09:00 AM EST TOWANDA ([facility]) Name Value Range Interpretation Code Description Data Adriana rce(s) Supporting Document(s) white blood count 6.1 10 4.0-10.0 White Blood Count MARJORIE ([facility]) hemoglobin 14.0 g/dL 13.5-17.5 Hemoglobin MARJORIE ([facility]) red blood count 4.60 10 4.30-6.10 Red Blood [facility]) hematocrit 40.2 % 42.0-52.0 Below low normal Hematocrit TOWANDA ( [facility]) mean corpuscular volume 87.4 fL 80.0-96.0 Mean Corpusc ular Volume TOWANDA ([facility]) mean corpuscular HGB conc 34.8 g/dL 32.0-36.5 Mean Corpu scular HGB Conc TOWANDA ([facility]) mean corpuscular hemoglobin 30.4 pg 27.0-33.0 Mean Cor puscular Hemoglobin TOWANDA ([facility]) red cell distribution width 12.3 % 11.5-14.5 Red Cell Distribution Width TOWANDA ([facility]) platelet count, automated 283 10 150-450 Platelet C ount, Automated T[place]DA ([facility]) nucleated red blood cell % 0.0 % 0-0 Nucleated Red Blood Cell % T[place]ANDA ([facility]) ID Date Data Source [id number] 01/23/2020 06:09:00 AM EST T[place]DA ([facility]) Name Value Range Interpretation Code Description Data Adriana rce(s) Supporting Document(s) glucose, fasting 87 mg/dL 70-100 Glucose, Fasting AT [facility] ([facility]) creatinine for GFR 1.02 mg/dL 0.70-1.30 Creatinine for GF R TOWANDA ([facility]) blood urea nitrogen 8 mg/dL 7-18 Blood Urea Nitro gen MARJORIE ([facility]) glomerular filtration rate > 60.0 >60 Glomerula r Filtration Rate MARJORIE ([facility]) sodium level 140 mEq/L 136-145 Sodium Level MARJORIE ([facility]) potassium serum 3.8 mEq/L 3.5-5.1 Potassium Serum ATHE NA ([facility]) chloride level 107 mEq/L 98-107 Chloride Level MARJORIE ([facility]) carbon dioxide level 25 mEq/L 21-32 Carbon Dioxide Level MARJORIE ([facility]) anion gap 8 mEq/L 8-16 Anion Gap MARJORIE ([facility]) calcium level 8.3 mg/dL 8.5-10.1 Below low normal Calcium Level AT [facility]) ID Date Data Source [id number] 01/23/2020 06:09:00 AM EST [facility]) Name Value Range Interpretation Code Description Data Adriana rce(s) Supporting Document(s) white blood count 6.1 10 4.0-10.0 White Blood Count MARJORIE ([facility]) hemoglobin 14.0 g/dL 13.5-17.5 Hemoglobin MARJORIE ([facility]) red blood count 4.60 10 4.30-6.10 Red Blood Count ATHE ([facility]) mean corpuscular volume 87.4 fL 80.0-96.0 Mean Corpusc ular Volume MARJORIE ([facility]) hematocrit 40.2 % 42.0-52.0 Below low normal Hematocrit MARJORIE ( [facility]) mean corpuscular hemoglobin 30.4 pg 27.0-33.0 Mean Cor puscular Hemoglobin MARJORIE ([facility]) mean corpuscular HGB conc 34.8 g/dL 32.0-36.5 Mean Corpu scular HGB Conc MARJORIE ([facility]) red cell distribution width 12.3 % 11.5-14.5 Red Cell Distribution Width MARJORIE ([facility]) nucleated red blood cell % 0.0 % 0-0 Nucleated Red Blood Cell % MARJORIE ([facility]) platelet count, automated 283 10 150-450 Platelet C ount, Automated TOWANDA ([facility]) ID Date Data Source [id number] 01/23/2020 06:09:00 AM EST TOWANDA ([facility]) Name Value Range Interpretation Code Description Data Adriana rce(s) Supporting Document(s) blood urea nitrogen 8 mg/dL 7-18 Blood Urea Nitro gen MARJORIE ([facility]) glucose, fasting 87 mg/dL 70-100 Glucose, Fasting AT [facility]) creatinine for GFR 1.02 mg/dL 0.70-1.30 Creatinine for GF R TOWANDA ([facility]) glomerular filtration rate > 60.0 >60 Glomerula r Filtration Rate TOWANDA ([facility]) sodium level 140 mEq/L 136-145 Sodium Level TOWANDA (No [facility]) chloride level 107 mEq/L 98-107 Chloride Level TOWANDA ([facility]) potassium serum 3.8 mEq/L 3.5-5.1 Potassium Serum ATHE NA ([facility]) anion gap 8 mEq/L 8-16 Anion Gap TOWANDA ([facility]) calcium level 8.3 mg/dL 8.5-10.1 Below low normal Calcium Level AT [facility] ([facility]) carbon dioxide level 25 mEq/L 21-32 Carbon Dioxide Level TOWANDA ([facility]) ID Date Data Source [id number] 01/23/2020 06:09:00 AM EST TOWANDA ([facility]) Name Value Range Interpretation Code Description Data Adriana rce(s) Supporting Document(s) white blood count 6.1 10 4.0-10.0 White Blood Count MARJORIE ([facility]) red blood count 4.60 10 4.30-6.10 Red Blood Count ATHE NA ([facility]) mean corpuscular volume 87.4 fL 80.0-96.0 Mean Corpusc ular Volume TOWANDA ([facility]) hemoglobin 14.0 g/dL 13.5-17.5 Hemoglobin TOWANDA ([facility]) hematocrit 40.2 % 42.0-52.0 Below low normal Hematocrit TOWANDA ( [facility]) mean corpuscular hemoglobin 30.4 pg 27.0-33.0 Mean Cor puscular Hemoglobin TOWANDA ([facility]) mean corpuscular HGB conc 34.8 g/dL 32.0-36.5 Mean Corpu scular HGB Conc TOWANDA ([facility]) nucleated red blood cell % 0.0 % 0-0 Nucleated Red Blood Cell % TOWANDA ([facility]) red cell distribution width 12.3 % 11.5-14.5 Red Cell Distribution Width TOWANDA ([facility]) platelet count, automated 283 10 150-450 Platelet C ount, Automated [facility]) ID Date Data Source [id number] 01/23/2020 06:09:00 AM EST [facility]) Name Value Range Interpretation Code Description Data Adriana rce(s) Supporting Document(s) glucose, fasting 87 mg/dL 70-100 Glucose, Fasting AT [facility]) blood urea nitrogen 8 mg/dL 7-18 Blood Urea Nitro gen [facility]) creatinine for GFR 1.02 mg/dL 0.70-1.30 Creatinine for GF R [facility]) glomerular filtration rate > 60.0 >60 Glomerula r Filtration Rate TOWANDA ([facility]) sodium level 140 mEq/L 136-145 Sodium Level TOWANDA (No [facility]) potassium serum 3.8 mEq/L 3.5-5.1 [facility] chloride level 107 mEq/L 98-107 Chloride Level TOWANDA ([facility]) carbon dioxide level 25 mEq/L 21-32 Carbon Dioxide Level [facility]) anion gap 8 mEq/L 8-16 Anion Gap TOWANDA ([facility]) calcium level 8.3 mg/dL 8.5-10.1 Below low normal Calcium Level AT [facility]) ID Date Data Source [id number] 01/23/2020 06:09:00 AM EST MARJORIE ([facility]) Name Value Range Interpretation Code Description Data Adriana rce(s) Supporting Document(s) white blood count 6.1 10 4.0-10.0 White Blood Count MARJORIE ([facility]) red blood count 4.60 10 4.30-6.10 Red Blood Count ATHE NA ([facility]) hemoglobin 14.0 g/dL 13.5-17.5 Hemoglobin MARJORIE ([facility]) hematocrit 40.2 % 42.0-52.0 Below low normal Hematocrit MARJORIE ( [facility]) mean corpuscular volume 87.4 fL 80.0-96.0 Mean Corpusc ular Volume MARJORIE ([facility]) mean corpuscular hemoglobin 30.4 pg 27.0-33.0 Mean Cor puscular Hemoglobin MRAJORIE ([facility]) mean corpuscular HGB conc 34.8 g/dL 32.0-36.5 Mean Corpu scular HGB Conc MARJORIE ([facility]) red cell distribution width 12.3 % 11.5-14.5 Red Cell Distribution Width MARJORIE ([facility]) platelet count, automated 283 10 150-450 Platelet C ount, Automated MARJORIE ([facility]) nucleated red blood cell % 0.0 % 0-0 Nucleated Red Blood Cell % MARJORIE ([facility]) ID Date Data Source [id number] 01/22/2020 09:10:00 AM EST MARJORIE ([facility]) Name Value Range Interpretation Code Description Data Adriana rce(s) Supporting Document(s) summary final . Summary MARJORIE ([facility]) ID Date Data Source [id number] 01/22/2020 09:10:00 AM EST MARJORIE ([facility]) Name Value Range Interpretation Code Description Data Adriana rce(s) Supporting Document(s) pH,urine rfx 6.0 units 5.0-9.0 pH,urine Rfx [facility] color, urine rfx yellow yellow Color, Urine Rfx AT NESHA ([facility]) appearance, urine rfx clear clear Appearance, Ur ine Rfx TOWANDA ([facility]) glucose, urine (UA) auto rfx negative negative Glucose , Urine (UA) Auto Rfx TOWANDA ([facility]) specific gravity ur auto rfx 1.002-1.035 Specif ic [place] Ur Auto Rfx MARJORIE ([facility]) protein, urine auto rfx negative negative Protein, Uri ne Auto Rfx TOWANDA ([facility]) bilirubin, urine auto rfx negative negative Bilirubin, Urine Auto Rfx T[place]DA ([facility]) urobilinogen, urine auto rfx 0.2 mg/dL 0.0-2.0 Urobili nogen, Urine Auto Rfx TOW[place]DA ([facility]) ketone, urine auto rfx negative negative Ketone, Urine Auto Rfx T[place]DA ([facility]) blood, urine blood rfx negative negative Blood, Urine Blood Rfx TOWANDA ([facility]) leukocyte esterase ur auto rfx negative negative Leukocyte Esterase Ur Auto Rfx TOWANDA ([facility]) nitrite, urine auto rfx negative negative Nitrite, Uri ne Auto Rfx TOWANDA ([facility]) RBC, urine auto rfx 0 /hpf 0-3 RBC, Urine Auto Rfx TOW[place]DA ([facility]) bacteria, urine auto rfx negative negative Bacteria, U rine Auto Rfx TOWANDA ([facility]) WBC, urine auto rfx 0 /hpf 0-3 WBC, Urine Auto Rfx MARJORIE ([facility]) squam epithelial cell ur aurfx 0 /hpf 0-6 Squam Epithelial Cell Ur Aurfx TOWANDA ([facility]) hyaline cast, urine auto rfx 0 /lpf 0-1 Hyaline Cast, Urine Auto Rfx TOW[place]DA ([facility]) ID Date Data Source [id number] 01/22/2020 09:10:00 AM EST TOWANDA ([facility]) Name Value Range Interpretation Code Description Data Adriana rce(s) Supporting Document(s) summary final . Summary MARJORIE ([facility]) ID Date Data Source [id number] 01/22/2020 09:10:00 AM EST MARJORIE ([facility]) Name Value Range Interpretation Code Description Data Adriana rce(s) Supporting Document(s) color, urine rfx yellow yellow Color, Urine Rfx AT NESHA ([facility]) appearance, urine rfx clear clear Appearance, Ur ine Rfx TOWANDA ([facility]) pH,urine rfx 6.0 units 5.0-9.0 pH,urine Rfx MARJORIE ([facility]) specific gravity ur auto rfx 1.002-1.035 Specif ic [place] Ur Auto Rfx TOWANDA ([facility]) protein, urine auto rfx negative negative Protein, Uri ne Auto Rfx TOWANDA ([facility]) glucose, urine (UA) auto rfx negative negative Glucose , Urine (UA) Auto Rfx T[place]DA ([facility]) ketone, urine auto rfx negative negative Ketone, Urine Auto Rfx T[place]DA ([facility]) bilirubin, urine auto rfx negative negative Bilirubin, Urine Auto Rfx [place]DA ([facility]) urobilinogen, urine auto rfx 0.2 mg/dL 0.0-2.0 Urobili nogen, Urine Auto Rfx TOW[place]DA ([facility]) leukocyte esterase ur auto rfx negative negative Leukocyte Esterase Ur Auto Rfx TOW[place]DA ([facility]) blood, urine blood rfx negative negative Blood, Urine Blood Rfx T[place]DA ([facility]) nitrite, urine auto rfx negative negative Nitrite, Uri ne Auto Rfx TOWANDA ([facility]) RBC, urine auto rfx 0 /hpf 0-3 RBC, Urine Auto Rfx MARJORIE ([facility]) WBC, urine auto rfx 0 /hpf 0-3 WBC, Urine Auto Rfx MARJORIE ([facility]) bacteria, urine auto rfx negative negative Bacteria, U rine Auto Rfx TOWANDA ([facility]) squam epithelial cell ur aurfx 0 /hpf 0-6 Squam Epithelial Cell Ur Aurfx MARJORIE ([facility]) hyaline cast, urine auto rfx 0 /lpf 0-1 Hyaline Cast, Urine Auto Rfx MARJORIE ([facility]) ID Date Data Source [id number] 01/22/2020 09:10:00 AM EST MARJORIE ([facility]) Name Value Range Interpretation Code Description Data Adriana rce(s) Supporting Document(s) summary final . Summary MARJORIE ([facility]) ID Date Data Source [id number] 01/22/2020 09:10:00 AM EST MARJORIE ([facility]) Name Value Range Interpretation Code Description Data Adriana rce(s) Supporting Document(s) appearance, urine rfx clear clear Appearance, Ur ine Rfx TOWANDA ([facility]) color, urine rfx yellow yellow Color, Urine Rfx AT N[place]HA ([facility]) pH,urine rfx 6.0 units 5.0-9.0 pH,urine Rfx TOWANDA ([facility]) protein, urine auto rfx negative negative Protein, Uri ne Auto Rfx TOWANDA ([facility]) specific gravity ur auto rfx 1.002-1.035 Specif ic [place] Ur Auto Rfx TOWANDA ([facility]) glucose, urine (UA) auto rfx negative negative Glucose , Urine (UA) Auto Rfx TOWANDA ([facility]) urobilinogen, urine auto rfx 0.2 mg/dL 0.0-2.0 Urobili nogen, Urine Auto Rfx TOW[place]DA ([facility]) ketone, urine auto rfx negative negative Ketone, Urine Auto Rfx T[place]DA ([facility]) bilirubin, urine auto rfx negative negative Bilirubin, Urine Auto Rfx [place]DA ([facility]) blood, urine blood rfx negative negative Blood, Urine Blood Rfx T[place]DA ([facility]) nitrite, urine auto rfx negative negative Nitrite, Uri ne Auto Rfx TOWANDA ([facility]) leukocyte esterase ur auto rfx negative negative Leukocyte Esterase Ur Auto Rfx MARJORIE ([facility]) WBC, urine auto rfx 0 /hpf 0-3 WBC, Urine Auto Rfx MARJ[place]IE ([facility]) RBC, urine auto rfx 0 /hpf 0-3 RBC, Urine Auto Rfx MARJ[place]IE ([facility]) bacteria, urine auto rfx negative negative Bacteria, U rine Auto Rfx MARJORIE ([facility]) squam epithelial cell ur aurfx 0 /hpf 0-6 Squam Epithelial Cell Ur Aurfx MARJORIE ([facility]) hyaline cast, urine auto rfx 0 /lpf 0-1 Hyaline Cast, Urine Auto Rfx TOWANDA ([facility]) ID Date Data Source [id number] 01/22/2020 09:10:00 AM EST MARJORIE ([facility]) Name Value Range Interpretation Code Description Data Adriana rce(s) Supporting Document(s) summary final . Summary TOWANDA ([facility]) ID Date Data Source [id number] 01/22/2020 09:10:00 AM EST TOWANDA ([facility]) Name Value Range Interpretation Code Description Data Adriana rce(s) Supporting Document(s) color, urine rfx yellow yellow Color, Urine Rfx AT [facility]) appearance, urine rfx clear clear Appearance, Ur ine Rfx TOWANDA ([facility]) pH,urine rfx 6.0 units 5.0-9.0 pH,urine Rfx [facility] protein, urine auto rfx negative negative Protein, Uri ne Auto Rfx TOWANDA ([facility]) specific gravity ur auto rfx 1.002-1.035 Specif ic [place] Ur Auto Rfx TOWANDA ([facility]) ketone, urine auto rfx negative negative Ketone, Urine Auto Rfx [place]DA ([facility]) glucose, urine (UA) auto rfx negative negative Glucose , Urine (UA) Auto Rfx TOW[place]DA ([facility]) urobilinogen, urine auto rfx 0.2 mg/dL 0.0-2.0 Urobili nogen, Urine Auto Rfx MARJ[place]IE ([facility]) leukocyte esterase ur auto rfx negative negative Leukocyte Esterase Ur Auto Rfx [place]IE ([facility]) bilirubin, urine auto rfx negative negative Bilirubin, Urine Auto Rfx [place]IE ([facility]) nitrite, urine auto rfx negative negative Nitrite, Uri ne Auto Rfx MARJORIE ([facility]) WBC, urine auto rfx 0 /hpf 0-3 WBC, Urine Auto Rfx [place] ([facility] [facility]) RBC, urine auto rfx 0 /hpf 0-3 RBC, Urine Auto Rfx MARJORIE ([facility]) blood, urine blood rfx negative negative Blood, Urine Blood Rfx TOWANDA ([facility]) bacteria, urine auto rfx negative negative Bacteria, U rine Auto Rfx TOWANDA ([facility]) hyaline cast, urine auto rfx 0 /lpf 0-1 Hyaline Cast, Urine Auto Rfx TOWANDA ([facility]) squam epithelial cell ur aurfx 0 /hpf 0-6 Squam Epithelial Cell Ur Aurfx MARJORIE ([facility]) ID Date Data Source [id number] 01/22/2020 09:10:00 AM EST TOWANDA ([facility]) Name Value Range Interpretation Code Description Data Adriana rce(s) Supporting Document(s) summary final . Summary TOWANDA ([facility]) ID Date Data Source [id number] 01/22/2020 09:10:00 AM EST TOWANDA ([facility]) Name Value Range Interpretation Code Description Data Adriana rce(s) Supporting Document(s) appearance, urine rfx clear clear Appearance, Ur ine Rfx TOWANDA ([facility]) color, urine rfx yellow yellow Color, Urine Rfx AT NESHA ([facility]) pH,urine rfx 6.0 units 5.0-9.0 pH,urine Rfx MARJORIE ([facility]) specific gravity ur auto rfx 1.002-1.035 Specif ic [place] Ur Auto Rfx MARJORIE ([facility]) protein, urine auto rfx negative negative Protein, Uri ne Auto Rfx MARJORIE ([facility]) glucose, urine (UA) auto rfx negative negative Glucose , Urine (UA) Auto Rfx MARJORIE ([facility]) ketone, urine auto rfx negative negative Ketone, Urine Auto Rfx MARJORIE ([facility]) urobilinogen, urine auto rfx 0.2 mg/dL 0.0-2.0 Urobili nogen, Urine Auto Rfx MARJORIE ([facility]) bilirubin, urine auto rfx negative negative Bilirubin, Urine Auto Rfx MARJORIE ([facility]) nitrite, urine auto rfx negative negative Nitrite, Uri ne Auto Rfx MARJORIE ([facility]) leukocyte esterase ur auto rfx negative negative Leukocyte Esterase Ur Auto Rfx MARJORIE ([facility]) WBC, urine auto rfx 0 /hpf 0-3 WBC, Urine Auto Rfx MARJORIE ([facility]) blood, urine blood rfx negative negative Blood, Urine Blood Rfx MARJORIE ([facility]) RBC, urine auto rfx 0 /hpf 0-3 RBC, Urine Auto Rfx MARJORIE ([facility]) bacteria, urine auto rfx negative negative Bacteria, U rine Auto Rfx MARJORIE ([facility]) squam epithelial cell ur aurfx 0 /hpf 0-6 Squam Epithelial Cell Ur Aurfx MARJORIE ([facility]) hyaline cast, urine auto rfx 0 /lpf 0-1 Hyaline Cast, Urine Auto Rfx MARJORIE ([facility]) ID Date Data Source [id number] 01/22/2020 07:58:00 AM EST MARJORIE ([facility]) Name Value Range Interpretation Code Description Data Adriana rce(s) Supporting Document(s) magnesium level 2.0 mg/dL 1.8-2.4 Magnesium Level ATHE EDUARD ([facility]) ID Date Data Source [id number] 01/22/2020 07:58:00 AM EST TOWANDA ([facility]) Name Value Range Interpretation Code Description Data Adriana rce(s) Supporting Document(s) glucose, fasting 87 mg/dL 70-100 Glucose, Fasting AT [facility]) blood urea nitrogen 13 mg/dL 7-18 Blood Urea Nitro gen MARJORIE ([facility]) glomerular filtration rate > 60.0 >60 Glomerula r Filtration Rate MARJORIE ([facility]) creatinine for GFR 1.03 mg/dL 0.70-1.30 Creatinine for GF R MARJORIE ([facility]) sodium level 137 mEq/L 136-145 Sodium Level MARJORIE ([facility]) chloride level 104 mEq/L 98-107 Chloride Level TOWANDA ([facility]) potassium serum 3.8 mEq/L 3.5-5.1 [facility]assium [facility] calcium level 8.3 mg/dL 8.5-10.1 Below low normal Calcium Level AT [facility]) anion gap 7 mEq/L 8-16 Below low normal Anion Gap TOWANDA ( [facility]) carbon dioxide level 26 mEq/L 21-32 Carbon Dioxide Level TOWANDA ([facility]) ID Date Data Source [id number] 01/22/2020 07:58:00 AM EST [facility]) Name Value Range Interpretation Code Description Data Adriana rce(s) Supporting Document(s) lactic acid sepsis protocol 1.4 mmol/L 0.4-2.0 Lactic A blayne Sepsis Protocol [facility]) ID Date Data Source [id number] 01/22/2020 07:58:00 AM EST [facility]) Name Value Range Interpretation Code Description Data Adriana rce(s) Supporting Document(s) white blood count 6.6 10 4.0-10.0 White Blood Count MARJORIE ([facility]) hematocrit 39.9 % 42.0-52.0 Below low normal Hematocrit MARJORIE ( [facility]) hemoglobin 13.5 g/dL 13.5-17.5 Hemoglobin [facility]) red blood count 4.50 10 4.30-6.10 Red Blood Count ATHE NA ([facility]) mean corpuscular hemoglobin 30.0 pg 27.0-33.0 Mean Cor puscular Hemoglobin MARJORIE ([facility]) mean corpuscular volume 88.7 fL 80.0-96.0 Mean Corpusc ular Volume MARJORIE ([facility]) mean corpuscular HGB conc 33.8 g/dL 32.0-36.5 Mean Corpu scular HGB Conc MARJORIE ([facility]) platelet count, automated 280 10 150-450 Platelet C ount, Automated MARJORIE ([facility]) red cell distribution width 12.5 % 11.5-14.5 Red Cell Distribution Width MARJORIE ([facility]) nucleated red blood cell % 0.0 % 0-0 Nucleated Red Blood Cell % MARJORIE ([facility]) ID Date Data Source [id number] 01/22/2020 07:58:00 AM EST MARJORIE ([facility]) Name Value Range Interpretation Code Description Data Adriana rce(s) Supporting Document(s) magnesium level 2.0 mg/dL 1.8-2.4 Magnesium Level ATHE NA ([facility]) ID Date Data Source [id number] 01/22/2020 07:58:00 AM EST TOWANDA ([facility]) Name Value Range Interpretation Code Description Data Adriana rce(s) Supporting Document(s) glucose, fasting 87 mg/dL 70-100 Glucose, Fasting AT [facility] ([facility]) creatinine for GFR 1.03 mg/dL 0.70-1.30 Creatinine for GF R MARJORIE ([facility]) blood urea nitrogen 13 mg/dL 7-18 Blood Urea Nitro gen MARJORIE ([facility]) sodium level 137 mEq/L 136-145 Sodium Level MARJORIE ([facility]) glomerular filtration rate > 60.0 >60 Glomerula r Filtration Rate MARJORIE ([facility]) chloride level 104 mEq/L 98-107 Chloride Level MARJORIE ([facility]) carbon dioxide level 26 mEq/L 21-32 Carbon Dioxide Level MARJORIE ([facility]) potassium serum 3.8 mEq/L 3.5-5.1 Potassium Serum ATHE NA ([facility]) anion gap 7 mEq/L 8-16 Below low normal Anion Gap MARJORIE ( [facility]) calcium level 8.3 mg/dL 8.5-10.1 Below low normal Calcium Level AT NESHA ([facility]) ID Date Data Source [id number] 01/22/2020 07:58:00 AM EST MARJORIE ([facility]) Name Value Range Interpretation Code Description Data Adriana rce(s) Supporting Document(s) lactic acid sepsis protocol 1.4 mmol/L 0.4-2.0 Lactic A blayne Sepsis Protocol TOWANDA ([facility]) ID Date Data Source [id number] 01/22/2020 07:58:00 AM EST MARJORIE ([facility]) Name Value Range Interpretation Code Description Data Adriana rce(s) Supporting Document(s) red blood count 4.50 10 4.30-6.10 Red Blood Count ATHE ([facility]) white blood count 6.6 10 4.0-10.0 White Blood Count MARJORIE ([facility]) hematocrit 39.9 % 42.0-52.0 Below low normal Hematocrit MARJORIE ( [facility]) hemoglobin 13.5 g/dL 13.5-17.5 Hemoglobin MARJORIE ([facility]) mean corpuscular volume 88.7 fL 80.0-96.0 Mean Corpusc ular Volume MARJORIE ([facility]) mean corpuscular hemoglobin 30.0 pg 27.0-33.0 Mean Cor puscular Hemoglobin MARJORIE ([facility]) red cell distribution width 12.5 % 11.5-14.5 Red Cell Distribution Width MARJORIE ([facility]) mean corpuscular HGB conc 33.8 g/dL 32.0-36.5 Mean Corpu scular HGB Conc MARJORIE ([facility]) nucleated red blood cell % 0.0 % 0-0 Nucleated Red Blood Cell % MARJORIE ([facility]) platelet count, automated 280 10 150-450 Platelet C ount, Automated MARJORIE ([facility]) ID Date Data Source [id number] 01/22/2020 07:58:00 AM EST MARJORIE ([facility]) Name Value Range Interpretation Code Description Data Adriana rce(s) Supporting Document(s) magnesium level 2.0 mg/dL 1.8-2.4 [facility]) ID Date Data Source [id number] 01/22/2020 07:58:00 AM EST TOWANDA ([facility]) Name Value Range Interpretation Code Description Data Adriana rce(s) Supporting Document(s) glucose, fasting 87 mg/dL 70-100 Glucose, Fasting AT [facility]) blood urea nitrogen 13 mg/dL 7-18 Blood Urea Nitro gen MARJORIE ([facility]) creatinine for GFR 1.03 mg/dL 0.70-1.30 Creatinine for GF R TOWANDA ([facility]) sodium level 137 mEq/L 136-145 Sodium Level MARJORIE ([facility]) glomerular filtration rate > 60.0 >60 Glomerula r Filtration Rate MARJORIE ([facility]) chloride level 104 mEq/L 98-107 Chloride Level TOWANDA ([facility]) potassium serum 3.8 mEq/L 3.5-5.1 Potassium Serum ATHE ([facility]) carbon dioxide level 26 mEq/L 21-32 Carbon Dioxide Level TOWANDA ([facility]) anion gap 7 mEq/L 8-16 Below low normal Anion Gap TOWANDA ( [facility]) calcium level 8.3 mg/dL 8.5-10.1 Below low normal Calcium Level AT [facility]) ID Date Data Source [id number] 01/22/2020 07:58:00 AM EST [facility]) Name Value Range Interpretation Code Description Data Adriana rce(s) Supporting Document(s) lactic acid sepsis protocol 1.4 mmol/L 0.4-2.0 Lactic A blayne Sepsis Protocol MARJORIE ([facility]) ID Date Data Source [id number] 01/22/2020 07:58:00 AM EST MARJORIE ([facility]) Name Value Range Interpretation Code Description Data Adriana rce(s) Supporting Document(s) white blood count 6.6 10 4.0-10.0 White Blood Count MARJORIE ([facility]) red blood count 4.50 10 4.30-6.10 Red Blood Count ATHE ([facility]) hemoglobin 13.5 g/dL 13.5-17.5 Hemoglobin MARJORIE ([facility]) mean corpuscular volume 88.7 fL 80.0-96.0 Mean Corpusc ular Volume MARJORIE ([facility]) hematocrit 39.9 % 42.0-52.0 Below low normal Hematocrit MARJORIE ( [facility]) mean corpuscular HGB conc 33.8 g/dL 32.0-36.5 Mean Corpu scular HGB Conc MARJORIE ([facility]) mean corpuscular hemoglobin 30.0 pg 27.0-33.0 Mean Cor puscular Hemoglobin MARJORIE ([facility]) red cell distribution width 12.5 % 11.5-14.5 Red Cell Distribution Width MARJORIE ([facility]) platelet count, automated 280 10 150-450 Platelet C ount, Automated MARJORIE ([facility]) nucleated red blood cell % 0.0 % 0-0 Nucleated Red Blood Cell % MARJORIE ([facility]) ID Date Data Source [id number] 01/22/2020 07:58:00 AM EST MARJORIE ([facility]) Name Value Range Interpretation Code Description Data Adriana rce(s) Supporting Document(s) magnesium level 2.0 mg/dL 1.8-2.4 Magnesium Level ATHE NA ([facility]) ID Date Data Source [id number] 01/22/2020 07:58:00 AM EST MARJORIE ([facility]) Name Value Range Interpretation Code Description Data Adriana rce(s) Supporting Document(s) blood urea nitrogen 13 mg/dL 7-18 Blood Urea Nitro gen MARJORIE ([facility]) glucose, fasting 87 mg/dL 70-100 Glucose, Fasting AT [facility] ([facility]) creatinine for GFR 1.03 mg/dL 0.70-1.30 Creatinine for GF R TOWANDA ([facility]) glomerular filtration rate > 60.0 >60 Glomerula r Filtration Rate TOWANDA ([facility]) potassium serum 3.8 mEq/L 3.5-5.1 Potassium Serum ATH NA ([facility]) sodium level 137 mEq/L 136-145 Sodium Level MARJORIE ([facility]) chloride level 104 mEq/L 98-107 Chloride Level TOWANDA ([facility]) anion gap 7 mEq/L 8-16 Below low normal Anion Gap TOWANDA ( [facility]) carbon dioxide level 26 mEq/L 21-32 Carbon Dioxide Level TOWANDA ([facility]) calcium level 8.3 mg/dL 8.5-10.1 Below low normal Calcium Level AT [facility]) ID Date Data Source [id number] 01/22/2020 07:58:00 AM EST MARJORIE ([facility]) Name Value Range Interpretation Code Description Data Adriana rce(s) Supporting Document(s) lactic acid sepsis protocol 1.4 mmol/L 0.4-2.0 Lactic A blayne Sepsis Protocol TOWANDA ([facility]) ID Date Data Source [id number] 01/22/2020 07:58:00 AM EST MARJORIE ([facility]) Name Value Range Interpretation Code Description Data Adriana rce(s) Supporting Document(s) white blood count 6.6 10 4.0-10.0 White Blood Count MARJORIE ([facility]) hemoglobin 13.5 g/dL 13.5-17.5 Hemoglobin MARJORIE ([facility]) hematocrit 39.9 % 42.0-52.0 Below low normal Hematocrit MARJORIE ( [facility]) red blood count 4.50 10 4.30-6.10 Red Blood Count ATHE NA ([facility]) mean corpuscular volume 88.7 fL 80.0-96.0 Mean Corpusc ular Volume MARJORIE ([facility]) mean corpuscular hemoglobin 30.0 pg 27.0-33.0 Mean Cor puscular Hemoglobin MARJORIE ([facility]) mean corpuscular HGB conc 33.8 g/dL 32.0-36.5 Mean Corpu scular HGB Conc MARJORIE ([facility]) red cell distribution width 12.5 % 11.5-14.5 Red Cell Distribution Width MARJORIE ([facility]) platelet count, automated 280 10 150-450 Platelet C ount, Automated MARJORIE ([facility]) nucleated red blood cell % 0.0 % 0-0 Nucleated Red Blood Cell % MARJORIE ([facility]) ID Date Data Source [id number] 01/22/2020 07:58:00 AM EST MARJORIE ([facility]) Name Value Range Interpretation Code Description Data Adriana rce(s) Supporting Document(s) magnesium level 2.0 mg/dL 1.8-2.4 Magnesium Level ATHE ([facility]) ID Date Data Source [id number] 01/22/2020 07:58:00 AM EST MARJORIE ([facility]) Name Value Range Interpretation Code Description Data Adriana rce(s) Supporting Document(s) glucose, fasting 87 mg/dL 70-100 Glucose, Fasting AT [facility] ([facility]) blood urea nitrogen 13 mg/dL 7-18 Blood Urea Nitro gen MARJORIE ([facility]) glomerular filtration rate > 60.0 >60 Glomerula r Filtration Rate MARJORIE ([facility]) sodium level 137 mEq/L 136-145 Sodium Level MARJORIE ([facility]) creatinine for GFR 1.03 mg/dL 0.70-1.30 Creatinine for GF R MARJORIE ([facility]) chloride level 104 mEq/L 98-107 Chloride Level MARJORIE ([facility]) potassium serum 3.8 mEq/L 3.5-5.1 Potassium Serum ATHE ([facility]) carbon dioxide level 26 mEq/L 21-32 Carbon Dioxide Level MARJORIE ([facility]) anion gap 7 mEq/L 8-16 Below low normal Anion Gap MARJORIE ( [facility]) calcium level 8.3 mg/dL 8.5-10.1 Below low normal Calcium Level AT NESHA ([facility]) ID Date Data Source [id number] 01/22/2020 07:58:00 AM EST TOWANDA ([facility]) Name Value Range Interpretation Code Description Data Adriana rce(s) Supporting Document(s) lactic acid sepsis protocol 1.4 mmol/L 0.4-2.0 Lactic A blayne Sepsis Protocol TOWANDA ([facility]) ID Date Data Source [id number] 01/22/2020 07:58:00 AM EST TOWANDA ([facility]) Name Value Range Interpretation Code Description Data Adriana rce(s) Supporting Document(s) white blood count 6.6 10 4.0-10.0 White Blood Count MARJORIE ([facility]) red blood count 4.50 10 4.30-6.10 Red Blood Count ATHE NA ([facility]) hemoglobin 13.5 g/dL 13.5-17.5 Hemoglobin MARJORIE ([facility]) hematocrit 39.9 % 42.0-52.0 Below low normal Hematocrit MARJORIE ( [facility]) mean corpuscular volume 88.7 fL 80.0-96.0 Mean Corpusc ular Volume MARJORIE ([facility]) mean corpuscular HGB conc 33.8 g/dL 32.0-36.5 Mean Corpu scular HGB Conc MARJORIE ([facility]) mean corpuscular hemoglobin 30.0 pg 27.0-33.0 Mean Cor puscular Hemoglobin MARJORIE ([facility]) red cell distribution width 12.5 % 11.5-14.5 Red Cell Distribution Width MARJORIE ([facility]) platelet count, automated 280 10 150-450 Platelet C ount, Automated MARJORIE ([facility]) nucleated red blood cell % 0.0 % 0-0 Nucleated Red Blood Cell % MARJORIE ([facility]) ID Date Data Source [id number] 01/22/2020 07:06:00 AM EST MARJORIE ([facility]) Name Value Range Interpretation Code Description Data Adriana rce(s) Supporting Document(s) bedside glucose 93 mg/dL 70-105 Bedside Glucose ATHE EDUARD ([facility]) ID Date Data Source [id number] 01/22/2020 07:06:00 AM EST MARJORIE ([facility]) Name Value Range Interpretation Code Description Data Adriana rce(s) Supporting Document(s) bedside glucose 93 mg/dL 70-105 Bedside Glucose ATHE NA ([facility]) ID Date Data Source [id number] 01/22/2020 07:06:00 AM EST MARJORIE ([facility]) Name Value Range Interpretation Code Description Data Adriana rce(s) Supporting Document(s) bedside glucose 93 mg/dL 70-105 Bedside Glucose ATHE EDUARD ([facility]) ID Date Data Source [id number] 01/22/2020 07:06:00 AM EST MARJORIE ([facility]) Name Value Range Interpretation Code Description Data Adriana rce(s) Supporting Document(s) bedside glucose 93 mg/dL 70-105 Bedside Glucose ATHE NA ([facility]) ID Date Data Source [id number] 01/22/2020 07:06:00 AM EST MARJORIE ([facility]) Name Value Range Interpretation Code Description Data Adriana rce(s) Supporting Document(s) bedside glucose 93 mg/dL 70-105 Bedside Glucose ATHE NA ([facility]) ID Date Data Source [id number] 01/21/2020 11:46:00 PM EST MARJORIE ([facility]) Name Value Range Interpretation Code Description Data Adriana rce(s) Supporting Document(s) lactic acid level, lactate 2.1 mmol/L 0.4-2.0 Above high nor mal Lactic Acid Level, Lactate MARJORIE ([facility]) ID Date Data Source [id number] 01/21/2020 11:46:00 PM EST MARJORIE ([facility]) Name Value Range Interpretation Code Description Data Adriana rce(s) Supporting Document(s) lactic acid level, lactate 2.1 mmol/L 0.4-2.0 Above high nor mal Lactic Acid Level, Lactate MARJORIE ([facility]) ID Date Data Source [id number] 01/21/2020 11:46:00 PM EST MARJORIE ([facility]) Name Value Range Interpretation Code Description Data Adriana rce(s) Supporting Document(s) lactic acid level, lactate 2.1 mmol/L 0.4-2.0 Above high nor mal Lactic Acid Level, Lactate MARJORIE ([facility]) ID Date Data Source [id number] 01/21/2020 11:46:00 PM EST MARJORIE ([facility]) Name Value Range Interpretation Code Description Data Adriana rce(s) Supporting Document(s) lactic acid level, lactate 2.1 mmol/L 0.4-2.0 Above high nor mal Lactic Acid Level, Lactate MARJORIE ([facility]) ID Date Data Source [id number] 01/21/2020 11:46:00 PM EST MARJORIE [facility]) Name Value Range Interpretation Code Description Data Adriana rce(s) Supporting Document(s) lactic acid level, lactate 2.1 mmol/L 0.4-2.0 Above high nor mal Lactic Acid Level, Lactate MARJORIE ([facility]) ID Date Data Source [id number] 01/21/2020 09:03:00 PM EST MARJORIE ([facility]) Name Value Range Interpretation Code Description Data Adriana rce(s) Supporting Document(s) bedside glucose 88 mg/dL 70-105 Bedside Glucose ATHE NA ([facility]) ID Date Data Source [id number] 01/21/2020 09:03:00 PM EST MARJORIE ([facility]) Name Value Range Interpretation Code Description Data Adriana rce(s) Supporting Document(s) bedside glucose 88 mg/dL 70-105 Bedside Glucose ATHE NA ([facility]) ID Date Data Source [id number] 01/21/2020 09:03:00 PM EST MARJORIE ([facility]) Name Value Range Interpretation Code Description Data Adriana rce(s) Supporting Document(s) bedside glucose 88 mg/dL 70-105 Bedside Glucose ATHE NA ([facility]) ID Date Data Source [id number] 01/21/2020 09:03:00 PM EST MARJORIE ([facility]) Name Value Range Interpretation Code Description Data Adriana rce(s) Supporting Document(s) bedside glucose 88 mg/dL 70-105 Bedside Glucose ATHE NA ([facility]) ID Date Data Source [id number] 01/21/2020 09:03:00 PM EST MARJORIE ([facility]) Name Value Range Interpretation Code Description Data Adriana rce(s) Supporting Document(s) bedside glucose 88 mg/dL 70-105 Bedside Glucose ATHE NA ([facility]) ID Date Data Source [id number] 01/21/2020 07:04:00 PM EST MARJORIE ([facility]) Name Value Range Interpretation Code Description Data Adriana rce(s) Supporting Document(s) ID Date Data Source [id number] 01/21/2020 07:04:00 PM EST MARJORIE ([facility]) Name Value Range Interpretation Code Description Data Adriana rce(s) Supporting Document(s) ID Date Data Source [id number] 01/21/2020 07:04:00 PM EST MARJORIE ([facility]) Name Value Range Interpretation Code Description Data Adriana rce(s) Supporting Document(s) ID Date Data Source [id number] 01/21/2020 07:04:00 PM EST MARJORIE ([facility]) Name Value Range Interpretation Code Description Data Adriana rce(s) Supporting Document(s) ID Date Data Source [id number] 01/21/2020 07:04:00 PM EST MARJORIE ([facility]) Name Value Range Interpretation Code Description Data Adriana rce(s) Supporting Document(s) ID Date Data Source [id number] 01/21/2020 06:35:00 PM EST MARJORIE ([facility]) Name Value Range Interpretation Code Description Data Adriana rce(s) Supporting Document(s) ID Date Data Source [id number] 01/21/2020 06:35:00 PM EST MARJORIE ([facility]) Name Value Range Interpretation Code Description Data Adriana rce(s) Supporting Document(s) lactic acid sepsis protocol 3.0 mmol/L 0.4-2.0 Above high no rmal Lactic Acid Sepsis Protocol MARJORIE ([facility]) ID Date Data Source [id number] 01/21/2020 06:35:00 PM EST MARJORIE ([facility]) Name Value Range Interpretation Code Description Data Adriana rce(s) Supporting Document(s) triglycerides level 113 mg/dL <150 Triglycerides Le osmar MARJORIE ([facility]) cholesterol level 205 mg/dL <200 Above high normal Cholesterol Level MARJORIE ([facility]) Cholesterol in LDL [Mass/volume] in Serum or Plasma 118 mg/dL <100 Above high normal LDL Cholesterol MARJORIE ([facility]) non-HDL-C 141 mg/dL Non-hdl-c MARJORIE ([facility]) cholesterol risk ratio <5 Cholesterol R isk Ratio MARJORIE ([facility]) HDL cholesterol 64 mg/dL >40 HDL Cholesterol ATHE NA ([facility]) ID Date Data Source [id number] 01/21/2020 06:35:00 PM EST MARJORIE ([facility]) Name Value Range Interpretation Code Description Data Adriana rce(s) Supporting Document(s) Hemoglobin A1c/Hemoglobin.total in Blood 5.5 % Hemoglobin a1C MARJORIE ([facility]) estimated average glucose 111 mg/dL 60-110 Above high norm al Estimated Average Glucose MARJORIE ([facility]) ID Date Data Source [id number] 01/21/2020 06:35:00 PM EST MARJORIE ([facility]) Name Value Range Interpretation Code Description Data Adriana rce(s) Supporting Document(s) ID Date Data Source [id number] 01/21/2020 06:35:00 PM EST MARJORIE ([facility]) Name Value Range Interpretation Code Description Data Adriana rce(s) Supporting Document(s) lactic acid sepsis protocol 3.0 mmol/L 0.4-2.0 Above high no rmal Lactic Acid Sepsis Protocol MARJORIE ([facility]) ID Date Data Source [id number] 01/21/2020 06:35:00 PM EST MARJORIE ([facility]) Name Value Range Interpretation Code Description Data Adriana rce(s) Supporting Document(s) triglycerides level 113 mg/dL <150 Triglycerides Le osmar MARJORIE ([facility]) Cholesterol in LDL [Mass/volume] in Serum or Plasma 118 mg/dL <100 Above high normal LDL Cholesterol MARJORIE ([facility]) HDL cholesterol 64 mg/dL >40 HDL Cholesterol ATHE NA ([facility]) non-HDL-C 141 mg/dL Non-hdl-c MARJORIE ([facility]) cholesterol level 205 mg/dL <200 Above high normal Cholesterol Level MARJORIE ([facility]) cholesterol risk ratio <5 Cholesterol R isk Ratio MARJORIE ([facility]) ID Date Data Source [id number] 01/21/2020 06:35:00 PM EST MARJORIE ([facility]) Name Value Range Interpretation Code Description Data Adriana rce(s) Supporting Document(s) Hemoglobin A1c/Hemoglobin.total in Blood 5.5 % Hemoglobin a1C MARJORIE ([facility]) estimated average glucose 111 mg/dL 60-110 Above high norm al Estimated Average Glucose MARJORIE ([facility]) ID Date Data Source [id number] 01/21/2020 06:35:00 PM EST MARJORIE ([facility]) Name Value Range Interpretation Code Description Data Adriana rce(s) Supporting Document(s) ID Date Data Source [id number] 01/21/2020 06:35:00 PM EST MARJORIE ([facility]) Name Value Range Interpretation Code Description Data Adriana rce(s) Supporting Document(s) lactic acid sepsis protocol 3.0 mmol/L 0.4-2.0 Above high no rmal Lactic Acid Sepsis Protocol MARJORIE ([facility]) ID Date Data Source [id number] 01/21/2020 06:35:00 PM [facility] Name Value Range Interpretation Code Description Data Adriana rce(s) Supporting Document(s) triglycerides level 113 mg/dL <150 Triglycerides Le osmar MARJORIE ([facility]) Cholesterol in LDL [Mass/volume] in Serum or Plasma 118 mg/dL <100 Above high normal LDL Cholesterol MARJORIE ([facility]) cholesterol level 205 mg/dL <200 Above high normal Cholesterol Level MARJORIE ([facility]) non-HDL-C 141 mg/dL Non-hdl-c MARJORIE ([facility]) HDL cholesterol 64 mg/dL >40 HDL Cholesterol ATHE NA ([facility]) cholesterol risk ratio <5 Cholesterol R isk Ratio MARJORIE ([facility]) ID Date Data Source [id number] 01/21/2020 06:35:00 PM EST MARJORIE ([facility]) Name Value Range Interpretation Code Description Data Adriana rce(s) Supporting Document(s) Hemoglobin A1c/Hemoglobin.total in Blood 5.5 % Hemoglobin a1C MARJORIE ([facility]) estimated average glucose 111 mg/dL 60-110 Above high norm al Estimated Average Glucose MARJORIE ([facility]) ID Date Data Source [id number] 01/21/2020 06:35:00 PM EST MARJORIE ([facility]) Name Value Range Interpretation Code Description Data Adriana rce(s) Supporting Document(s) ID Date Data Source [id number] 01/21/2020 06:35:00 PM EST MARJORIE ([facility]) Name Value Range Interpretation Code Description Data Adriana rce(s) Supporting Document(s) lactic acid sepsis protocol 3.0 mmol/L 0.4-2.0 Above high no rmal Lactic Acid Sepsis Protocol MARJORIE ([facility]) ID Date Data Source [id number] 01/21/2020 06:35:00 PM EST MARJORIE ([facility]) Name Value Range Interpretation Code Description Data Adriana rce(s) Supporting Document(s) triglycerides level 113 mg/dL <150 Triglycerides Le osmar MARJORIE ([facility]) Cholesterol in LDL [Mass/volume] in Serum or Plasma 118 mg/dL <100 Above high normal LDL Cholesterol MARJORIE ([facility]) non-HDL-C 141 mg/dL Non-hdl-c MARJORIE ([facility]) cholesterol level 205 mg/dL <200 Above high normal Cholesterol Level MARJORIE ([facility]) HDL cholesterol 64 mg/dL >40 HDL Cholesterol ATHE NA ([facility]) cholesterol risk ratio <5 Cholesterol R isk Ratio MARJORIE ([facility]) ID Date Data Source [id number] 01/21/2020 06:35:00 PM EST MARJORIE ([facility]) Name Value Range Interpretation Code Description Data Adriana rce(s) Supporting Document(s) estimated average glucose 111 mg/dL 60-110 Above high norm al Estimated Average Glucose MARJORIE ([facility]) Hemoglobin A1c/Hemoglobin.total in Blood 5.5 % Hemoglobin a1C MARJORIE ([facility]) ID Date Data Source [id number] 01/21/2020 06:35:00 PM EST MARJORIE ([facility]) Name Value Range Interpretation Code Description Data Adriana rce(s) Supporting Document(s) ID Date Data Source [id number] 01/21/2020 06:35:00 PM EST MARJORIE ([facility]) Name Value Range Interpretation Code Description Data Adriana rce(s) Supporting Document(s) lactic acid sepsis protocol 3.0 mmol/L 0.4-2.0 Above high no rmal Lactic Acid Sepsis Protocol MARJORIE ([facility]) ID Date Data Source [id number] 01/21/2020 06:35:00 PM EST MARJORIE ([facility]) Name Value Range Interpretation Code Description Data Adriana rce(s) Supporting Document(s) HDL cholesterol 64 mg/dL >40 HDL Cholesterol ATHE NA ([facility]) triglycerides level 113 mg/dL <150 Triglycerides Le osmar MARJORIE ([facility]) cholesterol level 205 mg/dL <200 Above high normal Cholesterol Level MARJORIE ([facility]) Cholesterol in LDL [Mass/volume] in Serum or Plasma 118 mg/dL <100 Above high normal LDL Cholesterol MARJORIE ([facility]) cholesterol risk ratio <5 Cholesterol R isk Ratio MARJORIE ([facility]) non-HDL-C 141 mg/dL Non-hdl-c MARJORIE ([facility]) ID Date Data Source [id number] 01/21/2020 06:35:00 PM EST TOWANDA ([facility]) Name Value Range Interpretation Code Description Data Adriana rce(s) Supporting Document(s) estimated average glucose 111 mg/dL 60-110 Above high norm al Estimated Average Glucose MARJORIE ([facility]) Hemoglobin A1c/Hemoglobin.total in Blood 5.5 % Hemoglobin a1C TOWANDA ([facility]) ID Date Data Source [id number] 01/21/2020 04:39:00 PM EST [facility]) Name Value Range Interpretation Code Description Data Adriana rce(s) Supporting Document(s) sars covid-19 amplification negative negative Sars Cov id-19 Amplification [facility]) ID Date Data Source [id number] 01/21/2020 04:39:00 PM EST [facility]) Name Value Range Interpretation Code Description Data Adriana rce(s) Supporting Document(s) sars covid-19 amplification negative negative Sars Cov id-19 Amplification [facility]) ID Date Data Source [id number] 01/21/2020 04:39:00 PM EST [facility]) Name Value Range Interpretation Code Description Data Adriana rce(s) Supporting Document(s) sars covid-19 amplification negative negative Sars Cov id-19 Amplification [facility]) ID Date Data Source [id number] 01/21/2020 04:39:00 PM EST MARJORIE ([facility]) Name Value Range Interpretation Code Description Data Adriana rce(s) Supporting Document(s) sars covid-19 amplification negative negative Sars Cov id-19 Amplification TOWANDA ([facility]) ID Date Data Source [id number] 01/21/2020 04:39:00 PM EST MARJORIE ([facility]) Name Value Range Interpretation Code Description Data Adriana rce(s) Supporting Document(s) sars covid-19 amplification negative negative Sars Cov id-19 Amplification [facility]) ID Date Data Source [id number] 01/21/2020 04:39:00 PM EST [facility] Name Value Range Interpretation Code Description Data Adriana rce(s) Supporting Document(s) SARS coronavirus 2 RNA [Presence] in Res piratory specimen by BINA with probe detection [facility] This lab was ordered by [facility] a nd reported by [facility]. ID Date Data Source [id number] 01/21/2020 02:10:00 PM EST [facility] Name Value Range Interpretation Code Description Data Adriana rce(s) Supporting Document(s) lactic acid sepsis protocol 3.7 mmol/L 0.4-2.0 Above high no rmal Lactic Acid Sepsis Protocol [facility]) ID Date Data Source [id number] 01/21/2020 02:10:00 PM EST MARJORIE ([facility]) Name Value Range Interpretation Code Description Data Adriana rce(s) Supporting Document(s) lactic acid sepsis protocol 3.7 mmol/L 0.4-2.0 Above high no rmal Lactic Acid Sepsis Protocol [facility]) ID Date Data Source [id number] 01/21/2020 02:10:00 PM EST [facility] Name Value Range Interpretation Code Description Data Adriana rce(s) Supporting Document(s) lactic acid sepsis protocol 3.7 mmol/L 0.4-2.0 Above high no rmal Lactic Acid Sepsis Protocol MARJORIE ([facility]) ID Date Data Source [id number] 01/21/2020 02:10:00 PM EST MARJORIE ([facility]) Name Value Range Interpretation Code Description Data Adriana rce(s) Supporting Document(s) lactic acid sepsis protocol 3.7 mmol/L 0.4-2.0 Above high no rmal Lactic Acid Sepsis Protocol MARJORIE ([facility]) ID Date Data Source [id number] 01/21/2020 02:10:00 PM EST MARJORIE ([facility]) Name Value Range Interpretation Code Description Data Adriana rce(s) Supporting Document(s) lactic acid sepsis protocol 3.7 mmol/L 0.4-2.0 Above high no rmal Lactic Acid Sepsis Protocol MARJORIE ([facility]) ID Date Data Source [id number] 01/21/2020 02:09:00 PM EST MARJORIE ([facility]) Name Value Range Interpretation Code Description Data Adriana rce(s) Supporting Document(s) erythrocyte sedimentation rate 5 mm/HR 0-15 Eryth rocyte Sedimentation Rate MARJORIE ([facility]) ID Date Data Source [id number] 01/21/2020 02:09:00 PM EST MARJORIE ([facility]) Name Value Range Interpretation Code Description Data Adriana rce(s) Supporting Document(s) white blood count 9.1 10 4.0-10.0 White Blood Count MARJORIE ([facility]) hematocrit 45.6 % 42.0-52.0 Hematocrit MARJORIE ([facility]) hemoglobin 15.4 g/dL 13.5-17.5 Hemoglobin MARJORIE ([facility]) red blood count 5.30 10 4.30-6.10 Red Blood Count ATHE ([facility]) red cell distribution width 12.4 % 11.5-14.5 Red Cell Distribution Width MARJORIE ([facility]) mean corpuscular hemoglobin 29.1 pg 27.0-33.0 Mean Cor puscular Hemoglobin MARJORIE ([facility]) mean corpuscular HGB conc 33.8 g/dL 32.0-36.5 Mean Corpu scular HGB Conc MARJORIE ([facility]) mean corpuscular volume 86.0 fL 80.0-96.0 Mean Corpusc ular Volume MARJORIE ([facility]) platelet count, automated 378 10 150-450 Platelet C ount, Automated MARJORIE ([facility]) mono % 6.9 % 0.0-5.0 Above high normal Hood % MARJORIE ([facility]) neutrophils % 65.4 % 36.0-66.0 Neutrophils % MARJORIE ( [facility]) lymph % 25.8 % 24.0-44.0 Lymph % MARJORIE ([facility]) immature granulocyte % 0.4 % 0-3.0 Immature Gran ulocyte % MARJORIE ([facility]) baso % 0.5 % 0.0-1.0 Baso % MARJORIE ([facility]) eos % 1.0 % 0.0-3.0 Eos % MARJORIE ([facility]) nucleated red blood cell % 0.0 % 0-0 Nucleated Red Blood Cell % MARJORIE ([facility]) neutrophils # 6.0 10 1.5-8.5 Neutrophils # MARJORIE ( [facility]) lymph # 2.4 10 1.5-5.0 Lymph # MARJORIE ([facility]) mono # 0.6 10 0.0-0.8 Hood # MARJORIE ([facility]) eos # 0.1 10 0.0-0.5 Eos # MARJORIE ([facility]) baso # 0.1 10 0.0-0.2 Baso # MARJORIE ([facility]) ID Date Data Source [id number] 01/21/2020 02:09:00 PM EST MARJORIE ([facility]) Name Value Range Interpretation Code Description Data Adriana rce(s) Supporting Document(s) prothrombin time 12.9 seconds 12.5-14.3 Prothrombin Time MARJORIE ([facility]) INR Inr MARJORIE ([facility]) partial thromboplastin time 29.2 seconds 24.2-38.5 Partial Thromboplastin Time MARJORIE ([facility]) ID Date Data Source [id number] 01/21/2020 02:09:00 PM EST MARJORIE ([facility]) Name Value Range Interpretation Code Description Data Adriana rce(s) Supporting Document(s) C reactive protein quantitativ 0.30 mg/dL 0.00-0.30 C Reactive Protein Quantitativ MARJORIE ([facility]) ID Date Data Source [id number] 01/21/2020 02:09:00 PM EST MARJORIE ([facility]) Name Value Range Interpretation Code Description Data Adriana rce(s) Supporting Document(s) lipase 94 U/L 73-393 Lipase MARJORIE ([facility]) ID Date Data Source [id number] 01/21/2020 02:09:00 PM EST MARJORIE ([facility]) Name Value Range Interpretation Code Description Data Adriana rce(s) Supporting Document(s) blood urea nitrogen 15 mg/dL 7-18 Blood Urea Nitro gen MARJORIE ([facility]) glucose, fasting 113 mg/dL 70-100 Above high normal Glucose, Fas ting MARJORIE ([facility]) creatinine for GFR 1.05 mg/dL 0.70-1.30 Creatinine for GF R MARJORIE ([facility]) glomerular filtration rate > 60.0 >60 Glomerula r Filtration Rate MARJORIE ([facility]) sodium level 138 mEq/L 136-145 Sodium Level MARJORIE ([facility]) potassium serum 4.9 mEq/L 3.5-5.1 Potassium Serum ATHE NA ([facility]) chloride level 103 mEq/L 98-107 Chloride Level MARJORIE ([facility]) carbon dioxide level 22 mEq/L 21-32 Carbon Dioxide Level MARJORIE ([facility]) calcium level 9.2 mg/dL 8.5-10.1 Calcium Level MARJORIE ( [facility]) anion gap 13 mEq/L 8-16 Anion Gap MARJORIE ([facility]) ID Date Data Source [id number] 01/21/2020 02:09:00 PM EST MARJORIE ([facility]) Name Value Range Interpretation Code Description Data Adriana rce(s) Supporting Document(s) alkaline phosphatase 105 U/L 45-117 Alkaline Phosph atase MARJORIE ([facility]) ALT/SGPT 38 U/L 12-78 ALT/SGPT MARJORIE ([facility]) AST/SGOT 10 U/L 7-37 AST/SGOT MARJORIE ([facility]) bilirubin,direct < 0.1 0.0-0.2 Bilirubin,direct AT [facility] ([facility]) total protein 7.6 gm/dL 6.4-8.2 Total Protein MARJORIE ( [facility]) bilirubin,total 0.3 mg/dL 0.2-1.0 Bilirubin,total ATHE ([facility]) albumin 3.7 gm/dL 3.2-5.2 Albumin MARJORIE ([facility]) albumin/globulin ratio Albumin/globu karina Ratio MARJORIE ([facility]) ID Date Data Source [id number] 01/21/2020 02:09:00 PM EST MARJORIE ([facility]) Name Value Range Interpretation Code Description Data Adriana rce(s) Supporting Document(s) CPK creatine phosphokinase 85 U/L 39-308 CPK Creat ine Phosphokinase MARJORIE ([facility]) CK-mb value mass 2.2 NG/mL <3.6 CK-mb Value Mass AT NESHA ([facility]) troponin I < 0.02 < 0.10 Troponin I MARJORIE ([facility]) mb/CK relative index < or =4 mb/CK Relative Index MARJORIE ([facility]) ID Date Data Source [id number] 01/21/2020 02:09:00 PM EST MARJORIE ([facility]) Name Value Range Interpretation Code Description Data Adriana rce(s) Supporting Document(s) erythrocyte sedimentation rate 5 mm/HR 0-15 Eryth rocyte Sedimentation Rate MARJORIE ([facility]) ID Date Data Source [id number] 01/21/2020 02:09:00 PM EST MARJORIE ([facility]) Name Value Range Interpretation Code Description Data Adriana rce(s) Supporting Document(s) white blood count 9.1 10 4.0-10.0 White Blood Count MARJORIE ([facility]) hemoglobin 15.4 g/dL 13.5-17.5 Hemoglobin MARJORIE ([facility]) red blood count 5.30 10 4.30-6.10 Red Blood Count ATHE ([facility]) hematocrit 45.6 % 42.0-52.0 Hematocrit MARJORIE ([facility]) mean corpuscular hemoglobin 29.1 pg 27.0-33.0 Mean Cor puscular Hemoglobin MARJORIE ([facility]) mean corpuscular volume 86.0 fL 80.0-96.0 Mean Corpusc ular Volume MARJORIE ([facility]) mean corpuscular HGB conc 33.8 g/dL 32.0-36.5 Mean Corpu scular HGB Conc MARJORIE ([facility]) red cell distribution width 12.4 % 11.5-14.5 Red Cell Distribution Width MARJORIE ([facility]) platelet count, automated 378 10 150-450 Platelet C ount, Automated MARJORIE ([facility]) neutrophils % 65.4 % 36.0-66.0 Neutrophils % MARJORIE ( [facility]) baso % 0.5 % 0.0-1.0 Baso % MARJORIE ([facility]) eos % 1.0 % 0.0-3.0 Eos % MARJORIE ([facility]) mono % 6.9 % 0.0-5.0 Above high normal [place] % MARJORIE ([facility]) lymph % 25.8 % 24.0-44.0 Lymph % MARJORIE ([facility]) nucleated red blood cell % 0.0 % 0-0 Nucleated Red Blood Cell % MARJORIE ([facility]) neutrophils # 6.0 10 1.5-8.5 Neutrophils # MARJORIE ( [facility]) immature granulocyte % 0.4 % 0-3.0 Immature Gran ulocyte % MARJORIE ([facility]) lymph # 2.4 10 1.5-5.0 Lymph # MARJORIE ([facility]) mono # 0.6 10 0.0-0.8 [place] # MARJORIE ([facility]) eos # 0.1 10 0.0-0.5 Eos # MARJORIE ([facility]) baso # 0.1 10 0.0-0.2 Baso # MARJORIE ([facility]) ID Date Data Source [id number] 01/21/2020 02:09:00 PM EST MARJORIE ([facility]) Name Value Range Interpretation Code Description Data Adriana rce(s) Supporting Document(s) prothrombin time 12.9 seconds 12.5-14.3 Prothrombin Time MARJORIE ([facility]) partial thromboplastin time 29.2 seconds 24.2-38.5 Partial Thromboplastin Time MARJORIE ([facility]) INR Inr MARJORIE ([facility]) ID Date Data Source [id number] 01/21/2020 02:09:00 PM EST MARJORIE ([facility]) Name Value Range Interpretation Code Description Data Adriana rce(s) Supporting Document(s) C reactive protein quantitativ 0.30 mg/dL 0.00-0.30 C Reactive Protein Quantitativ MARJORIE ([facility]) ID Date Data Source [id number] 01/21/2020 02:09:00 PM EST MARJORIE ([facility]) Name Value Range Interpretation Code Description Data Adriana rce(s) Supporting Document(s) lipase 94 U/L 73-393 Lipase MARJORIE ([facility]) ID Date Data Source [id number] 01/21/2020 02:09:00 PM EST MARJORIE ([facility]) Name Value Range Interpretation Code Description Data Adriana rce(s) Supporting Document(s) glucose, fasting 113 mg/dL 70-100 Above high normal Glucose, Fas ting MARJORIE ([facility]) blood urea nitrogen 15 mg/dL 7-18 Blood Urea Nitro gen MARJORIE ([facility]) creatinine for GFR 1.05 mg/dL 0.70-1.30 Creatinine for GF R MARJORIE ([facility]) glomerular filtration rate > 60.0 >60 Glomerula r Filtration Rate MARJORIE ([facility]) sodium level 138 mEq/L 136-145 Sodium Level MARJORIE ([facility]) chloride level 103 mEq/L 98-107 Chloride Level MARJORIE ([facility]) potassium serum 4.9 mEq/L 3.5-5.1 Potassium Serum ATHE NA ([facility]) anion gap 13 mEq/L 8-16 Anion Gap MARJORIE ([facility]) carbon dioxide level 22 mEq/L 21-32 Carbon Dioxide Level MARJORIE ([facility]) calcium level 9.2 mg/dL 8.5-10.1 Calcium Level MARJORIE ( [facility]) ID Date Data Source [id number] 01/21/2020 02:09:00 PM EST MARJOIRE ([facility]) Name Value Range Interpretation Code Description Data Adriana rce(s) Supporting Document(s) AST/SGOT 10 U/L 7-37 AST/SGOT MARJORIE ([facility]) ALT/SGPT 38 U/L 12-78 ALT/SGPT MARJORIE ([facility]) bilirubin,direct < 0.1 0.0-0.2 Bilirubin,direct AT [facility] ([facility]) alkaline phosphatase 105 U/L 45-117 Alkaline Phosph atase MARJORIE ([facility]) bilirubin,total 0.3 mg/dL 0.2-1.0 Bilirubin,total ATHE NA ([facility]) albumin 3.7 gm/dL 3.2-5.2 Albumin MARJORIE ([facility]) albumin/globulin ratio Albumin/globu karina Ratio MARJORIE ([facility]) total protein 7.6 gm/dL 6.4-8.2 Total Protein MARJORIE ( [facility]) ID Date Data Source [id number] 01/21/2020 02:09:00 PM EST MARJORIE ([facility]) Name Value Range Interpretation Code Description Data Adriana rce(s) Supporting Document(s) CPK creatine phosphokinase 85 U/L 39-308 CPK Creat ine Phosphokinase MARJORIE ([facility]) CK-mb value mass 2.2 NG/mL <3.6 CK-mb Value Mass AT [facility] ([facility]) mb/CK relative index < or =4 mb/CK Relative Index MARJORIE ([facility]) troponin I < 0.02 < 0.10 Troponin I MARJORIE ([facility]) ID Date Data Source [id number] 01/21/2020 02:09:00 PM EST MARJORIE ([facility]) Name Value Range Interpretation Code Description Data Adriana rce(s) Supporting Document(s) erythrocyte sedimentation rate 5 mm/HR 0-15 Eryth rocyte Sedimentation Rate MARJORIE ([facility]) ID Date Data Source [id number] 01/21/2020 02:09:00 PM EST MARJORIE ([facility]) Name Value Range Interpretation Code Description Data Adriana rce(s) Supporting Document(s) hematocrit 45.6 % 42.0-52.0 Hematocrit MARJORIE ([facility]) white blood count 9.1 10 4.0-10.0 White Blood Count MARJORIE ([facility]) red blood count 5.30 10 4.30-6.10 Red Blood Count ATHE NA ([facility]) hemoglobin 15.4 g/dL 13.5-17.5 Hemoglobin MARJORIE ([facility]) mean corpuscular volume 86.0 fL 80.0-96.0 Mean Corpusc ular Volume MARJORIE ([facility]) mean corpuscular HGB conc 33.8 g/dL 32.0-36.5 Mean Corpu scular HGB Conc MARJORIE ([facility]) mean corpuscular hemoglobin 29.1 pg 27.0-33.0 Mean Cor puscular Hemoglobin MARJORIE ([facility]) platelet count, automated 378 10 150-450 Platelet C ount, Automated MARJORIE ([facility]) red cell distribution width 12.4 % 11.5-14.5 Red Cell Distribution Width MARJORIE ([facility]) lymph % 25.8 % 24.0-44.0 Lymph % MARJORIE ([facility]) neutrophils % 65.4 % 36.0-66.0 Neutrophils % MARJORIE ( [facility]) eos % 1.0 % 0.0-3.0 Eos % MARJORIE ([facility]) immature granulocyte % 0.4 % 0-3.0 Immature Gran ulocyte % MAJRORIE ([facility]) baso % 0.5 % 0.0-1.0 Baso % MARJORIE ([facility]) mono % 6.9 % 0.0-5.0 Above high normal [place] % MARJORIE ([facility]) mono # 0.6 10 0.0-0.8 [place] # MARJORIE ([facility]) lymph # 2.4 10 1.5-5.0 Lymph # MARJORIE ([facility]) neutrophils # 6.0 10 1.5-8.5 Neutrophils # MARJORIE ( [facility]) nucleated red blood cell % 0.0 % 0-0 Nucleated Red Blood Cell % MARJORIE ([facility]) baso # 0.1 10 0.0-0.2 Baso # MARJORIE ([facility]) eos # 0.1 10 0.0-0.5 Eos # MARJORIE ([facility]) ID Date Data Source [id number] 01/21/2020 02:09:00 PM EST MARJORIE ([facility]) Name Value Range Interpretation Code Description Data Adriana rce(s) Supporting Document(s) partial thromboplastin time 29.2 seconds 24.2-38.5 Partial Thromboplastin Time MARJORIE ([facility]) prothrombin time 12.9 seconds 12.5-14.3 Prothrombin Time MARJORIE ([facility]) INR Inr MARJORIE ([facility]) ID Date Data Source [id number] 01/21/2020 02:09:00 PM EST MARJORIE ([facility]) Name Value Range Interpretation Code Description Data Adriana rce(s) Supporting Document(s) C reactive protein quantitativ 0.30 mg/dL 0.00-0.30 C Reactive Protein Quantitativ MARJORIE ([facility]) ID Date Data Source [id number] 01/21/2020 02:09:00 PM EST MARJORIE ([facility]) Name Value Range Interpretation Code Description Data Adriana rce(s) Supporting Document(s) lipase 94 U/L 73-393 Lipase MARJORIE ([facility]) ID Date Data Source [id number] 01/21/2020 02:09:00 PM EST MARJORIE ([facility]) Name Value Range Interpretation Code Description Data Adriana rce(s) Supporting Document(s) glucose, fasting 113 mg/dL 70-100 Above high normal Glucose, Fas ting MARJORIE ([facility]) blood urea nitrogen 15 mg/dL 7-18 Blood Urea Nitro gen MARJORIE ([facility]) sodium level 138 mEq/L 136-145 Sodium Level MARJORIE ([facility]) creatinine for GFR 1.05 mg/dL 0.70-1.30 Creatinine for GF R MARJORIE ([facility]) glomerular filtration rate > 60.0 >60 Glomerula r Filtration Rate MARJORIE ([facility]) chloride level 103 mEq/L 98-107 Chloride Level MARJORIE ([facility]) potassium serum 4.9 mEq/L 3.5-5.1 Potassium Serum ATHE NA ([facility]) carbon dioxide level 22 mEq/L 21-32 Carbon Dioxide Level MARJORIE ([facility]) calcium level 9.2 mg/dL 8.5-10.1 Calcium Level MARJORIE ( [facility]) anion gap 13 mEq/L 8-16 Anion Gap MARJORIE ([facility]) ID Date Data Source [id number] 01/21/2020 02:09:00 PM EST MARJORIE ([facility]) Name Value Range Interpretation Code Description Data Adriana rce(s) Supporting Document(s) AST/SGOT 10 U/L 7-37 AST/SGOT MARJORIE ([facility]) ALT/SGPT 38 U/L 12-78 ALT/SGPT MARJORIE ([facility]) alkaline phosphatase 105 U/L 45-117 Alkaline Phosph atase MARJORIE ([facility]) bilirubin,total 0.3 mg/dL 0.2-1.0 Bilirubin,total ATHE ([facility]) total protein 7.6 gm/dL 6.4-8.2 Total Protein MARJORIE ( [facility]) bilirubin,direct < 0.1 0.0-0.2 Bilirubin,direct AT [facility] ([facility]) albumin/globulin ratio Albumin/globu karina Ratio MARJORIE ([facility]) albumin 3.7 gm/dL 3.2-5.2 Albumin MARJORIE ([facility]) ID Date Data Source [id number] 01/21/2020 02:09:00 PM EST MARJORIE ([facility]) Name Value Range Interpretation Code Description Data Adriana rce(s) Supporting Document(s) CK-mb value mass 2.2 NG/mL <3.6 CK-mb Value Mass AT [facility]) CPK creatine phosphokinase 85 U/L 39-308 CPK Creat ine Phosphokinase MARJORIE ([facility]) mb/CK relative index < or =4 mb/CK Relative Index MARJORIE ([facility]) troponin I < 0.02 < 0.10 Troponin I MARJORIE ([facility]) ID Date Data Source [id number] 01/21/2020 02:09:00 PM EST MARJORIE ([facility]) Name Value Range Interpretation Code Description Data Adriana rce(s) Supporting Document(s) erythrocyte sedimentation rate 5 mm/HR 0-15 Eryth rocyte Sedimentation Rate MARJORIE ([facility]) ID Date Data Source [id number] 01/21/2020 02:09:00 PM EST MARJORIE ([facility]) Name Value Range Interpretation Code Description Data Adriana rce(s) Supporting Document(s) red blood count 5.30 10 4.30-6.10 Red Blood Count ATHE ([facility]) white blood count 9.1 10 4.0-10.0 White Blood Count MARJORIE ([facility]) mean corpuscular volume 86.0 fL 80.0-96.0 Mean Corpusc ular Volume MARJORIE ([facility]) hemoglobin 15.4 g/dL 13.5-17.5 Hemoglobin MARJORIE ([facility]) mean corpuscular hemoglobin 29.1 pg 27.0-33.0 Mean Cor puscular Hemoglobin MARJORIE ([facility]) hematocrit 45.6 % 42.0-52.0 Hematocrit MARJORIE ([facility]) neutrophils % 65.4 % 36.0-66.0 Neutrophils % MARJORIE ( [facility]) platelet count, automated 378 10 150-450 Platelet C ount, Automated MARJORIE ([facility]) red cell distribution width 12.4 % 11.5-14.5 Red Cell Distribution Width MARJORIE ([facility]) mean corpuscular HGB conc 33.8 g/dL 32.0-36.5 Mean Corpu scular HGB Conc MARJORIE ([facility]) mono % 6.9 % 0.0-5.0 Above high normal [place] % MARJORIE ([facility]) baso % 0.5 % 0.0-1.0 Baso % MARJORIE ([facility]) eos % 1.0 % 0.0-3.0 Eos % MARJORIE ([facility]) lymph % 25.8 % 24.0-44.0 Lymph % MARJORIE ([facility]) neutrophils # 6.0 10 1.5-8.5 Neutrophils # MARJORIE ( [facility]) immature granulocyte % 0.4 % 0-3.0 Immature Gran ulocyte % MARJORIE ([facility]) lymph # 2.4 10 1.5-5.0 Lymph # MARJORIE ([facility]) nucleated red blood cell % 0.0 % 0-0 Nucleated Red Blood Cell % MARJORIE ([facility]) eos # 0.1 10 0.0-0.5 Eos # MARJORIE ([facility]) mono # 0.6 10 0.0-0.8 [place] # MARJORIE ([facility]) baso # 0.1 10 0.0-0.2 Baso # MARJORIE ([facility]) ID Date Data Source [id number] 01/21/2020 02:09:00 PM EST MARJORIE ([facility]) Name Value Range Interpretation Code Description Data Adriana rce(s) Supporting Document(s) prothrombin time 12.9 seconds 12.5-14.3 Prothrombin Time MARJORIE ([facility]) partial thromboplastin time 29.2 seconds 24.2-38.5 Partial Thromboplastin Time MARJORIE ([facility]) INR Inr MARJORIE ([facility]) ID Date Data Source [id number] 01/21/2020 02:09:00 PM EST MARJORIE ([facility]) Name Value Range Interpretation Code Description Data Adriana rce(s) Supporting Document(s) C reactive protein quantitativ 0.30 mg/dL 0.00-0.30 C Reactive Protein Quantitativ MARJORIE ([facility]) ID Date Data Source [id number] 01/21/2020 02:09:00 PM EST MARJORIE ([facility]) Name Value Range Interpretation Code Description Data Adriana rce(s) Supporting Document(s) lipase 94 U/L 73-393 Lipase MARJORIE ([facility]) ID Date Data Source [id number] 01/21/2020 02:09:00 PM EST MARJORIE ([facility]) Name Value Range Interpretation Code Description Data Adriana rce(s) Supporting Document(s) blood urea nitrogen 15 mg/dL 7-18 Blood Urea Nitro gen MARJORIE ([facility]) glucose, fasting 113 mg/dL 70-100 Above high normal Glucose, Fas ting MARJORIE ([facility]) glomerular filtration rate > 60.0 >60 Glomerula r Filtration Rate MARJORIE ([facility]) potassium serum 4.9 mEq/L 3.5-5.1 Potassium Serum ATHE NA ([facility]) creatinine for GFR 1.05 mg/dL 0.70-1.30 Creatinine for GF R MARJORIE ([facility]) sodium level 138 mEq/L 136-145 Sodium Level MARJORIE ([facility]) carbon dioxide level 22 mEq/L 21-32 Carbon Dioxide Level MARJORIE ([facility]) anion gap 13 mEq/L 8-16 Anion Gap MARJORIE ([facility]) chloride level 103 mEq/L 98-107 Chloride Level TOWANDA ([facility]) calcium level 9.2 mg/dL 8.5-10.1 Calcium Level MARJORIE ( [facility]) ID Date Data Source [id number] 01/21/2020 02:09:00 PM EST MARJORIE ([facility]) Name Value Range Interpretation Code Description Data Adriana rce(s) Supporting Document(s) AST/SGOT 10 U/L 7-37 AST/SGOT MARJORIE ([facility]) alkaline phosphatase 105 U/L 45-117 Alkaline Phosph atase MARJORIE ([facility]) ALT/SGPT 38 U/L 12-78 ALT/SGPT MARJORIE ([facility]) bilirubin,total 0.3 mg/dL 0.2-1.0 Bilirubin,total ATHE ([facility]) bilirubin,direct < 0.1 0.0-0.2 Bilirubin,direct AT [facility] ([facility]) total protein 7.6 gm/dL 6.4-8.2 Total Protein MARJORIE ( [facility]) albumin/globulin ratio Albumin/globu karina Ratio MARJORIE ([facility]) albumin 3.7 gm/dL 3.2-5.2 Albumin MARJORIE ([facility]) ID Date Data Source [id number] 01/21/2020 02:09:00 PM EST MARJORIE ([facility]) Name Value Range Interpretation Code Description Data Adriana rce(s) Supporting Document(s) CPK creatine phosphokinase 85 U/L 39-308 CPK Creat ine Phosphokinase MARJORIE ([facility]) mb/CK relative index < or =4 mb/CK Relative Index MARJORIE ([facility]) troponin I < 0.02 < 0.10 Troponin I MARJORIE ([facility]) CK-mb value mass 2.2 NG/mL <3.6 CK-mb Value Mass AT [facility] ([facility]) ID Date Data Source [id number] 01/21/2020 02:09:00 PM EST MARJORIE ([facility]) Name Value Range Interpretation Code Description Data Adriana rce(s) Supporting Document(s) erythrocyte sedimentation rate 5 mm/HR 0-15 Eryth rocyte Sedimentation Rate MARJORIE ([facility]) ID Date Data Source [id number] 01/21/2020 02:09:00 PM EST MARJORIE ([facility]) Name Value Range Interpretation Code Description Data Adriana rce(s) Supporting Document(s) red blood count 5.30 10 4.30-6.10 Red Blood Count ATHE NA ([facility]) white blood count 9.1 10 4.0-10.0 White Blood Count MARJORIE ([facility]) hematocrit 45.6 % 42.0-52.0 Hematocrit MARJORIE ([facility]) mean corpuscular volume 86.0 fL 80.0-96.0 Mean Corpusc ular Volume MARJORIE ([facility]) mean corpuscular hemoglobin 29.1 pg 27.0-33.0 Mean Cor puscular Hemoglobin MARJORIE ([facility]) hemoglobin 15.4 g/dL 13.5-17.5 Hemoglobin MARJORIE ([facility]) neutrophils % 65.4 % 36.0-66.0 Neutrophils % MARJORIE ( [facility]) red cell distribution width 12.4 % 11.5-14.5 Red Cell Distribution Width MARJORIE ([facility]) platelet count, automated 378 10 150-450 Platelet C ount, Automated MARJORIE ([facility]) mean corpuscular HGB conc 33.8 g/dL 32.0-36.5 Mean Corpu scular HGB Conc MARJORIE ([facility]) lymph % 25.8 % 24.0-44.0 Lymph % MARJORIE ([facility]) mono % 6.9 % 0.0-5.0 Above high normal [place] % MARJORIE ([facility] [facility]) eos % 1.0 % 0.0-3.0 Eos % MARJORIE ([facility]) baso % 0.5 % 0.0-1.0 Baso % MARJORIE ([facility]) immature granulocyte % 0.4 % 0-3.0 Immature Gran ulocyte % MARJORIE ([facility]) nucleated red blood cell % 0.0 % 0-0 Nucleated Red Blood Cell % MARJORIE ([facility]) mono # 0.6 10 0.0-0.8 Hood # MARJORIE ([facility]) lymph # 2.4 10 1.5-5.0 Lymph # MARJORIE ([facility]) neutrophils # 6.0 10 1.5-8.5 Neutrophils # MARJORIE ( [facility]) baso # 0.1 10 0.0-0.2 Baso # MARJORIE ([facility]) eos # 0.1 10 0.0-0.5 Eos # MARJORIE ([facility]) ID Date Data Source [id number] 01/21/2020 02:09:00 PM EST MARJORIE ([facility]) Name Value Range Interpretation Code Description Data Adriana rce(s) Supporting Document(s) prothrombin time 12.9 seconds 12.5-14.3 Prothrombin Time MARJORIE ([facility]) partial thromboplastin time 29.2 seconds 24.2-38.5 Partial Thromboplastin Time MARJORIE ([facility]) INR Inr MARJORIE ([facility]) ID Date Data Source [id number] 01/21/2020 02:09:00 PM EST MARJORIE ([facility]) Name Value Range Interpretation Code Description Data Adriana rce(s) Supporting Document(s) C reactive protein quantitativ 0.30 mg/dL 0.00-0.30 C Reactive Protein Quantitativ MARJORIE ([facility]) ID Date Data Source [id number] 01/21/2020 02:09:00 PM EST MARJORIE ([facility]) Name Value Range Interpretation Code Description Data Adriana rce(s) Supporting Document(s) lipase 94 U/L 73-393 Lipase MARJORIE ([facility]) ID Date Data Source [id number] 01/21/2020 02:09:00 PM EST MARJORIE ([facility]) Name Value Range Interpretation Code Description Data Adriana rce(s) Supporting Document(s) creatinine for GFR 1.05 mg/dL 0.70-1.30 Creatinine for GF R MARJORIE ([facility]) blood urea nitrogen 15 mg/dL 7-18 Blood Urea Nitro gen MARJORIE ([facility]) glucose, fasting 113 mg/dL 70-100 Above high normal Glucose, Fas ting MARJORIE ([facility]) potassium serum 4.9 mEq/L 3.5-5.1 Potassium Serum ATHE NA ([facility]) glomerular filtration rate > 60.0 >60 Glomerula r Filtration Rate MARJORIE ([facility]) sodium level 138 mEq/L 136-145 Sodium Level MARJORIE ([facility]) carbon dioxide level 22 mEq/L 21-32 Carbon Dioxide Level MARJORIE ([facility]) calcium level 9.2 mg/dL 8.5-10.1 Calcium Level MARJORIE ( [facility]) anion gap 13 mEq/L 8-16 Anion Gap MARJORIE ([facility]) chloride level 103 mEq/L 98-107 Chloride Level MARJORIE ([facility]) ID Date Data Source [id number] 01/21/2020 02:09:00 PM EST MARJORIE ([facility]) Name Value Range Interpretation Code Description Data Adriana rce(s) Supporting Document(s) ALT/SGPT 38 U/L 12-78 ALT/SGPT MARJORIE ([facility]) alkaline phosphatase 105 U/L 45-117 Alkaline Phosph atase MARJORIE ([facility]) AST/SGOT 10 U/L 7-37 AST/SGOT MARJORIE ([facility]) total protein 7.6 gm/dL 6.4-8.2 Total Protein MARJORIE ( [facility]) bilirubin,total 0.3 mg/dL 0.2-1.0 Bilirubin,total ATHE ([facility]) bilirubin,direct < 0.1 0.0-0.2 Bilirubin,direct AT NESHA ([facility]) albumin 3.7 gm/dL 3.2-5.2 Albumin MARJORIE ([facility]) albumin/globulin ratio Albumin/globu karina Ratio MARJORIE ([facility]) ID Date Data Source [id number] 01/21/2020 02:09:00 PM EST MARJORIE ([facility]) Name Value Range Interpretation Code Description Data Adriana rce(s) Supporting Document(s) CPK creatine phosphokinase 85 U/L 39-308 CPK Creat ine Phosphokinase MARJORIE ([facility]) CK-mb value mass 2.2 NG/mL <3.6 CK-mb Value Mass AT NESHA ([facility]) mb/CK relative index < or =4 mb/CK Relative Index MARJORIE ([facility]) troponin I < 0.02 < 0.10 Troponin I MARJORIE ([facility]) ID Date Data Source [id number] 01/07/2020 12:36:46 PM [facility] NT INFORMATIONPatient MRN Name Date of Age Gend*PT [id number] JaunMigelaaliyah Meyer 1985 34 years M OBSPT Location Admission Date/Time Visit ID Attending [id number] 01/04/202121 --- --- EPI ID CSN Admitting Provider [id number] Reji Griggs MD([id number]) Attestation signed by Alfie Hopper DO at 01/07/2020 12:36 PMProcedure performed under my supervision, I agree with above report.Alfie Hopper DO 01/07/2020 12:36 PMDepartment of Interventional Radiology ---------Brief Operative/Invasive Procedure NoteSaure Betsy JaunDATE OF : 1985MRN # [id number] DATE: 01/06/2020PROVIDER:Dr. HopperPROKAYCE:US guided lumbar fluid collection aspiration - Approx 4 cc of clear,yellow fluid aspiratedPRE-PROCEDURE DIAGNOSIS:Lumbar fluid collectionPOST PROCEDURE DIAGNOSIS:Lumbar fluid collectionANESTHESIA TYPE:local - 1% lidocaine (2cc)DRAINS:NoneSPECIMENS:Lumbar fluidESTIMATED BLOOD LOSS: MinimalGRAFTS OR IMPLANTS:NoneFINDINGS: Consistent with operative diagnosisCOMPLICATIONS: NoneScott Channels, PADepartment of Interventional Radiology Name Value Range Interpretation Code Description Data Adriana rce(s) Supporting Document(s) ID Date Data Source [id number] 01/06/2020 04:58:59 PM EST [address] [address]Cbidisx Name: DELONTE ZAMORANODOB: 1985Sex: MOrdering Provider: MARIMAR Mejias Prov: MARIMAR Whitten Provider: Procedure Performed: IR US GUIDED NEEDLE PLACEMENTExam Date: 01/06/2020 16:00MRN: [id number] Number: [id number] Class: OutpatientAccount #: [id number] for Exam: lumbar fluid collection on MRI [...] made. Using real-time ultrasound guidance a 5 Lithuanian Yueh needle was advanced into the small [...] ALFIE HOPPER On 01/06/2020 4:58 PMWorkstation ID: [id number] Name Value Range Interpretation Code Description Data Adriana rce(s) Supporting Document(s) ID Date Data Source [id number] 01/06/2020 04:51:58 PM EST [facility] NT INFORMATIONPatient MRN Name Date of Age Gend*PT [id number] Delonte Zamorano 1985 34 years M OBSPT Location Admission Date/Time Visit ID Attending [id number] 01/04/202121 --- Reji Griggs MD([id number]) EPI ID CSN Admitting Provider [id number] Reji Griggs MD([id number]) Attestation signed by Reji Griggs MD at [...] Spondylolisthesis at L5-S1 level Herniated nucleus pulposus, L5-I8Afivvphb Problems: * No resolved hospital problems. *Surgical [...] details.Discharge disposition: He will be discharged from [facility] to home in good condition.Discharge Weight [...] 4 cc clear fluidConsults:noneSignature: Cleve Sanchez [phone]: January 06, 2020Time: 4:36 PM Name Value Range Interpretation Code Description Data Adriana rce(s) Supporting Document(s) ID Date Data Source [id number] 01/08/2020 09:58:38 AM EST [facility] SPECIMEN DESCRIPTION CEREBROSPINA L FLUID LUMBARSPECIAL REQUESTS NONEGRAM STAIN NO WHITE BLOOD CELLS NO BACTERIACULTURE RESULTS NO GROWTHREPORT STATUS FINAL 01/08/2020 Name Value Range Interpretation Code Description Data Adriana rce(s) Supporting Document(s) ID Date Data Source [id number] 01/06/2020 10:29:00 PM EST [facility] SPECIMEN DESCRIPTION CEREBROSPINA L FLUIDSPECIAL REQUESTS NONEGRAM STAIN NOT DONECULTURE RESULTS WRONG TEST ORDERED BY LAB ORDERED IN ERROR. [id number].REPORT STATUS FINAL 01/06/2020 Name Value Range Interpretation Code Description Data Adriana rce(s) Supporting Document(s) ID Date Data Source [id number] 01/06/2020 10:28:25 PM EST [facility] SPECIMEN DESCRIPTION CEREBROSPINA L FLUIDSPECIAL REQUESTS NONECULTURE RESULTS WRONG TEST ORDERED BY LAB ORDERED IN ERRORREPORT STATUS FINAL 01/06/2020 Name Value Range Interpretation Code Description Data Adriana rce(s) Supporting Document(s) ID Date Data Source [id number] 01/06/2020 10:27:25 PM EST [facility] SPECIMEN DESCRIPTION WOUND LUMBAR FLUIDSPECIAL REQUESTS NONEGRAM STAIN NOT DONECULTURE RESULTS TEST(S) PROCESSED UNDER NEW ENTRY PLEASE SEE [id number] [facility]. [id number].REPORT STATUS FINAL 01/06/2020 Name Value Range Interpretation Code Description Data Adriana rce(s) Supporting Document(s) ID Date Data Source [id number] 01/06/2020 12:53:35 PM EST [facility] Name Value Range Interpretation Code Description Data Adriana rce(s) Supporting Document(s) PT 10.8 s (9.2-11.9) [facility] INR 1.03 [facility] SUGGESTED THERAPEUTIC RANGES USING INR F ORSTABILIZED ANTICOAGULATED PATIENTS:STANDARD DOSE THERAPY INR 2.0-3.0 DVT, PE, PREVENT DVT OR EMBOLISMHIGH DOSE THERAPY INR 2.5-3.5 PREVENT EMBOLISM FROM MECHANICAL HEART VALVE ID Date Data Source [id number] 01/06/2020 07:20:02 AM EST [facility] Name Value Range Interpretation Code Description Data Adriana rce(s) Supporting Document(s) WBC 7.3 10*3/uL (4.1-11.0) [facility] [place] RBC 4.94 10*6/uL (4.60-6.10) [facility] HGB 15.1 g/dL (13.5-18.0) [facility] HCT 43.7 % (41.0-53.0) [facility] PERFORMED AT [address] [place] [address] [place] [address] MCV 88.4 fL (80.0-95.0) [facility] MCH 30.5 pg (27.0-32.0) [facility] MCHC 34.5 g/dL (32.0-36.0) [facility] RDW 13.4 % (10.5-14.5) [facility] PLT 333 10*3/uL (150-450) [facility] MPV 7.9 fL (7.1-10.7) [facility] NEUT % 43.1 % (35.0-75.0) [facility] LYMPH % 42.1 % (16.0-52.0) [facility] MONO % 9.9 % (0.0-8.0) H [facility] EOS % 3.7 % (0.0-5.0) [facility] BASO % 1.2 % (0.0-4.0) [facility] NEUT # 3.1 10*3/uL (1.8-7.7) [facility] LYMPH # 3.1 10*3/uL (1.2-4.8) [facility] MONO # 0.7 10*3/uL (0.0-0.8) [facility] Eosinophils [#/volume] in Blood by Automated count 0.3 10*3/uL (0.0-0 .5) [facility] BASO # 0.1 10*3/uL (0.0-0.2) [facility] ID Date Data Source [id number] 01/05/2020 06:18:[address] [address]Urixykg Name: Delonte ZamoranoDOB: 1985Sex: MOrdering Provider: MARIMAR Mejias Prov: MARIMAR Whitten Provider: Procedure Performed: MRI LUMBAR SPINE W WO CONTRASTExam Date: 01/05/2020 16:23MRN: [id number] Number: [id number] Class: INFORMATION: Exam: MR Lumbar Spine Without [...] rce(s) Supporting Document(s) ID Date Data Source [id number] 01/05/2020 09:44:00 AM [facility] [address] [facility] [place] [address] RESPIRATORY CARE REPORT ==== ---------NAME------- NUMBER SEX AGE ADMIT DISC. XRAY# F/C TYPEMURPHY DELONTE Meyer [id number] M 34 01/04/20 01/04/20 [id number] X6B E/R DATE OF : 1985 M/R# [id number] #: [id number] LOCATION: EMERGENCY DEPT EKG [id number] COMP LETE:01/05/20 01:42 T 83949 PHYSICIAN: KEYA PADRON Name Value Range Interpretation Code Description Data Adriana rce(s) Supporting Document(s) ID Date Data Source [id number] 01/05/2020 07:37:51 AM EST [address] [address]Fnkeosa Name: DELONTE ZAMORANODOB: 1985Sex: MOrdering Provider: CHAIM Pisano Prov: CHAIM Lay Provider: Procedure Performed: XR LUMBAR SPINE AP AND LATERALExam Date: 01/05/2020 01:41MRN: [id number] Number: [id number] Class: OutpatientAccount #: [id number] for Exam: s/p l5-S1 fusion now with [...] SPENCER JENNINGS On 01/05/2020 7:37 AMWorkstation ID: [id number] Name Value Range Interpretation Code Description Data Adriana rce(s) Supporting Document(s) ID Date Data Source [id number] 01/05/2020 07:20:58 AM EST [facility] NT INFORMATIONPatient MRN Name Date of Age Gend*PT [id number] Delonte Zamorano 1985 34 years M OBSPT Location Admission Date/Time Visit ID Attending [id number] 01/04/202121 --- Daren Richard MD([id number]) EPI ID CSN Admitting Provider [id number] Daren Richard MD([id number]) Attestation signed by Reji Griggs MD at 01/05/2020 7:20 AMSignature: JEFF Pradhanate: January 05, 2020Time: 7:20 AM --Ortho H+P Mitchelaaliyah Meyer JaunMRN: [id number] Physician: Dr. Pope referred by:Juan Carlos Marks [...] touch or weightbearing. He was [facility] department today [facility] emergency departmentfor higher level of care. [...] patient during rounds.Chaim BASSETTCSignature: Cleve [phone]: January 05, 2020Time: 12:54 AM Name Value Range Interpretation Code Description Data Adriana rce(s) Supporting Document(s) ID Date Data Source [id number] 01/05/2020 07:18:07 AM EST [facility] NT INFORMATIONPatient MRN Name Date of Age Gend*PT [id number] Deolnte Zamorano 1985 34 years M OBSPT Location Admission Date/Time Visit ID Attending [id number] 01/04/202121 --- Daren Richard MD([id number]) EPI ID CSN Admitting Provider [id number] Daren Richard MD([id number])Ortho H&P NoteChief Complaint: Lower back pain/right lower extremity pain/tinglingSean Betsy JaunMRN: [id number] and Recommendations:Principal Problem: Post-op painActive Problems: Spondylolisthesis at L5-S1 level Herniated nucleus pulposus, L5-S1 1. Acute onset lower back pain/right lower extremity numbness/tingling: NeedsMRI for further evaluation-MRI ordered. Apparently MRI cannot be performedwhile in the emergency room last p.m. Further recommendations after MRIobtained and reviewedLabs/Imaging/Other diagnostics:X-rays lumbar spine [facility] 01/05/2020: Hardware in good position. GoodalignmentHistory of Present Illness: 34-year-old male status post L5-S1 TLIF 09/30/2019.Did well postoperatively. Preoperative symptoms were down the left lowerextremity. However states on , was lifting his son developedsome lower back pain. Woke up Sunday morning with severe pain in the backrating down the right lower extremity. [facility]and then [facility] to [facility] for further evaluation treatment. Besides alower back [...] Reji Griggs, MDDate: January 05, 2020Time: 7:10 [facility]:Daren Richard MD Name Value Range Interpretation Code Description Data Adriana rce(s) Supporting Document(s) ID Date Data Source [id number] 01/11/2020 11:10:42 AM EST [facility] SPECIMEN DESCRIPTION PERIPHERAL LEFTSPECIAL REQUESTS NONECULTURE RESULTS NO GROWTH 6 DAYSREPORT STATUS FINAL 01/11/2020 Name Value Range Interpretation Code Description Data Adriana rce(s) Supporting Document(s) ID Date Data Source [id number] 01/11/2020 11:10:42 AM EST [facility] SPECIMEN DESCRIPTION PERIPHERAL RIGHTSPECIAL REQUESTS NONECULTURE RESULTS NO GROWTH 6 DAYSREPORT STATUS FINAL 01/11/2020 Name Value Range Interpretation Code Description Data Adriana rce(s) Supporting Document(s) ID Date Data Source [id number] 01/04/2020 11:06:43 PM EST [facility] NT INFORMATIONPatient MRN Name Date of Age Gend*PT [id number] Delonte Zamorano 1985 34 years M EDPT Location Admission Date/Time Visit ID Attending [id number] 01/04/202121 --- Nicolas An MD([id number]) EPI ID CSN Admitting Provider [id number] ---Provider in Triage NotesNo notes on fileHistory of Present IllnessChief ComplaintPatient presents with Post-op Problem Per EMS- Pt had back surgery at [facility] on 10/01/2019. The pain has returned andworsened over the past 2 days at which point pt presented to [facility].Transferred here for further workup and MRI.34-year-old male [...] He has a normal mood and affect.ED VckimyIealuygatbVWL81:00 Dr Richard from [facility], freda admit to his service for MRI in [facility] was electronically signed by Nicolas An MD, 01/04/20 10:01 PM.Nicolas An MD01/04/20 2306 Name Value Range Interpretation Code Description Data Adriana rce(s) Supporting Document(s) ID Date Data Source [id number] 01/04/2020 10:09:00 PM EST [facility] Name Value Range Interpretation Code Description Data Adriana rce(s) Supporting Document(s) SARS coronavirus 2 RNA [Presence] in Res piratory specimen by BINA with probe detection [facility] This lab was reported by [facility]. ID Date Data Source [id number] 01/05/2020 12:23:19 AM EST [facility] Name Value Range Interpretation Code Description Data Adriana rce(s) Supporting Document(s) SPECIMEN DESCRIPTION [facility] INFLUENZA A (NEG) [facility] INFLUENZA B (NEG) [facility] RSV (NEG) [facility] COMMENT [facility] UNDER AN EMERGENCY USE AUTHORIZATION(EUA ) FOR THE DETECTION AND/OR DIAGNOSISOF THE VIRUS THAT CAUSES COVID-19.PERFORMED AT [address] [place] [address] COVID19 RESULT (NDET) [facility] THIS ASSAY AMPLIFIES AND DETECTSTHE TARG ET RNA USING REAL-TIME PCR.NEGATIVE 2019_NCOV RT-PCR RESULTS DONOT PRECLUDE 2019_NCOV INFECTION ANDSHOULD NOT BE USED THE SOLE BASISFOR PATIENT MANAGEMENT DECISIONS. FIRST TEST [facility] [employer] [facility] [employer] [facility] SYMPTOMATIC [facility] Y DATE OF SYMPT ONSET [facility] HOSPITALIZED [facility] ICU [facility] CONGREGATE CARE SET [facility] ID Date Data Source [id number] 01/04/2020 11:08:54 PM EST [facility] Name Value Range Interpretation Code Description Data Adriana rce(s) Supporting Document(s) SODIUM 137 mmol/L (136-145) [facility] POTASSIUM 4.1 mmol/L (3.6-5.2) [facility] CHLORIDE 106 mmol/L (100-108) [facility] CO2 23 mmol/L (22-31) [facility] ANION GAP 8 mmol/L (7-16) [facility] UREA NITROGEN 15 mg/dL (7-24) [facility] CREATININE 0.98 mg/dL (0.80-1.30) [facility] BUN/CREAT RATIO 15.3 RATIO (10.0-20.0) [facility] GLUCOSE 127 mg/dL (70-99) H [facility] CALCIUM 9.0 mg/dL (8.4-10.2) [facility] TOTAL PROTEIN 7.9 g/dL (6.4-8.2) [facility] ALBUMIN 4.0 g/dL (3.5-4.6) [facility] GLOBULIN 3.9 g/dL (2.7-4.3) [facility] ALB/GLOB RATIO 1.0 RATIO [facility] ALKALINE PHOSPHATASE 106 U/L (45-117) [facility] BILIRUBIN,TOTAL 0.5 mg/dL (0.0-1.0) [facility] PLEASE NOTE:Total bilirubin results may be falselyelevated in patients taking Eltrombopag. AST (SGOT) 72 U/L (11-39) H [facility] ALT (SGPT) 84 U/L (12-78) H [facility] GFR >60 ml/min/1.73m2 (>59) [facility] GFR ( AMER) >60 ml/min/1.73m2 (>59) [facility] GFR INTERPRETATION [facility] --NORMAL KIDNEY FUNCTION OR MILD DISEASE - GFR >OR= 60CHRONIC KIDNEY DISEASE - GFR 15 - 59RENAL FAILURE - GFR <15 Est. GFR calculation based on the MDRDstudy equation, which assumes a steadystate for creatinine. Est. GFR should notbe used for medication dosing. ID Date Data Source [id number] 01/04/2020 10:47:51 PM EST [facility] Name Value Range Interpretation Code Description Data Adriana rce(s) Supporting Document(s) WBC 15.2 10*3/uL (4.1-11.0) H [facility] RBC 5.39 10*6/uL (4.60-6.10) [facility] HGB 16.2 g/dL (13.5-18.0) [facility] HCT 46.7 % (41.0-53.0) [facility] MCV 86.5 fL (80.0-95.0) [facility] MCH 30.1 pg (27.0-32.0) [facility] MCHC 34.8 g/dL (32.0-36.0) [facility] RDW 13.5 % (10.5-14.5) [facility] PLT 373 10*3/uL (150-450) [facility] MPV 8.0 fL (7.1-10.7) [facility] NEUT % 90.9 % (35.0-75.0) H [facility] LYMPH % 7.0 % (16.0-52.0) L [facility] MONO % 1.6 % (0.0-8.0) [facility] EOS % 0.1 % (0.0-5.0) [facility] BASO % 0.4 % (0.0-4.0) [facility] NEUT # 13.8 10*3/uL (1.8-7.7) H [facility] [place] LYMPH # 1.1 10*3/uL (1.2-4.8) L [facility] MONO # 0.2 10*3/uL (0.0-0.8) [facility] Eosinophils [#/volume] in Blood by Automated count 0.0 10*3/uL (0.0-0 .5) [facility] BASO # 0.1 10*3/uL (0.0-0.2) [facility] ID Date Data Source [id number] 01/04/2020 04:23:00 PM EST [facility] 1 OrderSheet [facility] Emergency Department [address] [place] [address] Phone #: ext- [phone] 01/04/2020 16:17 Patient: [...] IV 18:16 01/04/2020 18:51 [place], 2 OrderSheet [facility] Emergency Department [address] [place] [address] Phone #: ext- [phone] 01/04/2020 16:17 Patient: DELONTE ZAMORANO Sex: M : 1985 Age: [id number] mg (NOW x1, Almaz Valle MD; Suraj [...] rce(s) Supporting Document(s) ID Date Data Source [id number] 01/04/2020 04:23:00 PM EST [facility] 1 Medication Reconciliation Report [facility] Emergency Department [address] [place] [address] Phone #: ext- [phone] 01/04/2020 16:17 Patient: DELONTE ZAMORANO Sex: M [...] rce(s) Supporting Document(s) ID Date Data Source [id number] 01/04/2020 04:23:00 PM EST [facility] 1 Medication Administration Record [facility] Emergency Department [address] [place] [address] Phone #: ext- [phone] 01/04/2020 16:17 Patient: DELONTE ZAMORANO Sex: M [...] IV NS 1000 mL Bolus : Bolus [id number] 01/04/2020 Dose: IV Fluids mL (X1)Suraj Day R.N. Rate: 1500 mL/hr over 40 minute(s)---- Dispensed: 1000 mL bagStop Site: #1 left AC19:37 01/04/2020Suraj Day R.N. Name Value Range Interpretation Code Description Data Adriana rce(s) Supporting Document(s) ID Date Data Source [id number] 01/04/2020 04:23:00 PM EST [facility] 1 General Instructions [facility] Emergency Department [address] [place] [address] Phone #: ext- [phone] 01/04/2020 16:17 Patient: [...] people can remain active. 2 General Instructions [facility] Emergency Department [address] [place] [address] Phone #: ext- [phone] 01/04/2020 16:17 Patient: [...] with your knees bent 3 General Instructions [facility] Emergency Department [address] [place] [address] Phone #: ext- [phone] 01/04/2020 16:17 Patient: [...] or are takingother medicines. You may use wnen-tvk-ejqmxyr medicine as directed on the bottle to [...] may affect your care. 4 General Instructions [facility] Emergency Department [address] [place] [address] Phone #: ext- [phone] 01/04/2020 16:17 Patient: [...] Numbness in the groin or genital area [phone] [employer] [place] [address]. All rights reserved. This information is not [...] medicines you take. This includes prescription and oubf-fkj-fvjkmuf medicines, vitamins, and herbs. Ask if any of the medicines may be causing 5 General Instructions [facility] Emergency Department [address] [place] [address] Phone #: ext- [phone] 01/04/2020 16:17 Patient: [...] Open wound with redness, swelling, or pus [id number] [employer]. [address] [place] [address]. All rights reserved. This information is not intended as asubstitute for professional medical care. Always follow your healthcare professional's instructions. You have been given the following additional information: Back Pain (Acute or Chronic) Paraesthesias 6 General Instructions [facility] Emergency Department [address] [place] [address] Phone #: ext- [phone] 01/04/2020 16:17 Patient: DELONTE ZAMORANO Sex: M : 1985 Age: 34y(Electronically signed by Almaz Valle MD 01/04/2020 19:53) Name Value Range Interpretation Code Description Data Adriana rce(s) Supporting Document(s) ID Date Data Source [id number] 01/04/2020 04:23:00 PM [facility] 1 Clinical Report - Nurses [facility] Emergency Department [address] [place] [address] Phone #: ext- [phone] 01/04/2020 16:17 Patient: DELONTE ZAMORANO Sex: M : 1985 Age: 34yTRIAGEArrived by private vehicle. Historian: patient. ( back pain with pain shooting down right leg).Triage time: 16:21 01/04/2020. Acuity: LEVEL 4.Chief Complaint: BACK PAIN.Alert.This started yesterday. 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 No suspected or confirmed signs of infection present. --16: Suraj Day R.N.16:01/04/20. BP: 140/107. MAP: 118. HR: 101. RR: 16. O2 saturation: 100%. Temp: 98.1 F. Pain levelnow: 09/14. --16:31 01/04/20 Suraj Day R.N.Weight: 102 kg stated. Height/Length: 71 inches Per Patient. BMI: 31.4. --16:25 01/04/20 uSraj Day R.N.MedicationsLisinopril Oral 10 mg, daily. --16:01/04/20 Suraj Day R.N.AllergiesNo Known Drug Allergy. --16:27 01/04/20 Suraj Day R.N.PROBLEMS:Epididymitis.Eso phagitis.Diarrhea.Contusion.Dental Caries.GI Bleeding.GI Disease.Gastroesophageal Reflux Disease.Gastric ulcer.Gastritis.Back Pain. 2 Clinical Report - Nurses [facility] Emergency Department [address] [place] [address] Phone #: ext- [phone] 01/04/2020 16:17 Patient: [...] known carrier 3 Clinical Report - Nurses [facility] Emergency Department [address] [place] [address] Phone #: ext- [phone] 01/04/2020 16:17 Patient: [...] To treatment room. --16:01/04/20 Suraj Day R.N.PHYSICAL ZBTYNHIEGZ56:01/04/20. Ambulatory to room.GENERAL / NEURO / PSYCH: [...] light placed in reach. [facility] bed on. Patient ready for evaluation- ED physician notified. --16:01/04/20Suraj garcia R.N. 17:15 01/04/2020 Morphine IM 4 mg given. Given in the right deltoid. Allergies verified and confirmed 5 rights. Information reviewed with patient including reason for taking this medication, signs of allergic reaction, precautions and sedative warning. Verbalizes understanding. --17:15 01/04/20 Suraj Day R.N. 4 Clinical Report - Nurses [facility] Emergency Department [address] [place] [address] Phone #: ext- [phone] 01/04/2020 16:17 Patient: [...] Suraj Day R.N.18:34 01/04/20. Patient transported to [place] by wheelchair with materials tech. --18:35 01/04/20 Suraj Day R.N.18:33 01/04/20. BP: [...] * IVPB 1000 mg --18:51 01/04/20 Suraj Day R.N.18:51 01/04/20. Cardiac rhythm: (75 atrial rate). --18:52 01/04/20 Suraj Day R.N.18:58 01/04/20. ( spoke to Michelle SOSA at [facility] ER to inform her transfer is delayed until further noticebecause of chest pain and evaluation. we will keep them posted.). --18:59 01/04/20 Suraj Day R.N.19:19 01/04/20. BP: 147/90. MAP: 109. HR: 74. RR: 17. O2 saturation: 100%. --19:19 01/04/20 Marisol Harris, ER Tech1 5 Clinical Report - Nurses [facility] Emergency Department [address] [place] [address] Phone #: ext- [phone] 01/04/2020 16:17 Patient: DELONTE ZAMORANO Sex: M : 1985 Age: 34y 19:29 01/04/20. BP: 155/82. MAP: 106. HR: 67. RR: 15. O2 saturation: 100%. --19:29 01/04/20 [place] tuyere fitter, Marisol, ER Tech1 19:32 01/04/2020 Ofirmir IVPB [...] include patient impairment of mobility. Transferred to [facility]. Visit overview, summary of care (CCDA), [...] Day R.N. 6 Clinical Report - Nurses [facility] Emergency Department [address] [place] [address] Phone #: ext [phone] 01/04/2020 16:17 -------- Patient: DELONTE ZAMORANO Sex: M : 1985 Age: 34y Name Value Range Interpretation Code Description Data Adriana rce(s) Supporting Document(s) ID Date Data Source [id number] 01/04/2020 04:23:00 PM EST [facility] 1 Clinical Report - Physicians/Mid Levels [facility] Emergency Department [address] [place] [address] Phone #: ext- [phone] 01/04/2020 16:17 [facility]: [id number] Sex: M : 1985 Age: 34y Historian- [...] Allergies: 2 Clinical Report - Physicians/Mid Levels [facility] Emergency Department [address] [place] [address] Phone #: ext- [phone] 01/04/2020 16:17 Patient: [...] 10/01/19, did spine surgery on him at [facility]. He states he used a walker for [...] pt 3 Clinical Report - Physicians/Mid Levels [facility] Emergency Department [address] [place] [address] Phone #: ext- [phone] 01/04/2020 16:17 Patient: [...] lower extremity. Patient/family counseled. Disposition: Transferred to [facility]. Condition: stable.CLINICAL IM PRESSION Weakness of the right lower extremity. Paresthesia Nontraumatic lumbar back pain.(Electronically signed by Almaz Valle MD 01/04/2020 19:53) Name Value Range Interpretation Code Description Data Adriana rce(s) Supporting Document(s) ID Date Data Source [id number] 01/04/2020 07:16:00 PM EST [place] [id number] [facility] [place] [address] ---------NAME--------- NUMBER SEX AGE ADMIT DISC. XRAY# F/C TYPE JAUN Meyer [id number] M 34 01/04/20 [id number] E/R DATE OF : 1985 M/R# [id number] #: [phone] TR-06 LOCATION: EMERGENCY DEPT TRANSCRIBED: 01/04/20 19:[address] ABD //T// PELV W/[place] ORAL W/[place] [id number] COMPLETED:01/04/20 19:12 [facility] [id number] Reason(s): Abdominal Pain PHYSICIAN: KEYA======= R A D I O L O G Y R E P O R T PATIENT HISTORY:abdominal pain 3 months s/p lumbar fusion, accumulated dlp 1154.5 mGy*cm est RLN8171.2 mGy*cm MALE 2 PT IDENTIFIERS-[facility] / ABD/PEL (DICOM Hx)EXAM: CT Abdomen and Pelvis Without IV contrastCLINICAL HISTORY: Abdominal pain 3 months s/p lumbar fusion, accumulated oge7374.5 mGy*cm est DLP 1143.2 mGy*cm MALE 2 [...] rce(s) Supporting Document(s) ID Date Data Source [id number] 01/04/2020 07:00:00 PM [facility] Name Value Range Interpretation Code Description Data Adriana rce(s) Supporting Document(s) TROPONIN T <0.01 NG/ML 0.00 - 0.10 [facility] TROPONIN T0.1 ng/ml Recommended as the c linical threshold value forTroponin T. ID Date Data Source [id number] 01/04/2020 06:59:00 PM [facility] Name Value Range Interpretation Code Description Data Adriana rce(s) Supporting Document(s) Ethanol [Moles/volume] in Blood <10.0 MG/DL [facility] ALCOHOL % 0.01 % 0.00 - 0.01 [facility] *FOR MEDICAL PURPOSES ONLY * ID Date Data Source [id number] 01/04/2020 06:59:00 PM [facility] Name Value Range Interpretation Code Description Data Adriana rce(s) Supporting Document(s) Magnesium [Mass/volume] in Serum or Plasma 1.9 MG/DL 1.7 - 2.2 [facility] ID Date Data Source [id number] 01/04/2020 06:59:00 PM [facility] Name Value Range Interpretation Code Description Data Adriana rce(s) Supporting Document(s) Lipase [Enzymatic activity/volume] in Serum or Plasma 64 U/L 13 - 60 H [facility] ID Date Data Source [id number] 01/04/2020 06:59:00 PM [facility] Name Value Range Interpretation Code Description Data Adriana rce(s) Supporting Document(s) COMPREHENSIVE METABOLIC PANEL [facility] COMPREHENSIVE METABOLIC PANEL Sodium [Moles/volume] in Serum or Plasma 136 mEq/L 134 - 153 [facility] Potassium [Moles/volume] in Serum or Plasma 4.3 mEq/L 3.6 - 5.0 [facility] Chloride [Moles/volume] in Serum or Plasma 100 mEq/L 98 - 107 [facility] Carbon dioxide, total [Moles/volume] in Serum or Plasma 24 MEQ/L 22 - 30 [facility] Glucose [Mass/volume] in Serum or Plasma 100 MG/DL 65 - 110 [facility] BUN 11 MG/DL 7 - 21 [facility] al Creatinine [Mass/volume] in Serum or Plasma 0.9 MG/DL 0.7 - 1.5 [facility] BUN/CREAT 12 8 - 27 [facility] al Protein [Mass/volume] in Serum or Plasma 7.7 G/DL 6.3 - 8.2 [facility] Albumin [Mass/volume] in Serum or Plasma 5.0 G/DL 3.9 - 5.0 [facility] Globulin [Mass/volume] in Serum by calculation 2.7 GM/DL 2.4 - 3.2 [facility] A/G RATIO 1.9 0.8 - 2.0 [facility] Calcium [Mass/volume] in Serum or Plasma 10.0 MG/DL 8.4 - 10.2 [facility] Bilirubin.total [Mass/volume] in Serum or Plasma <0.7 MG/DL 0.2 - 1.3 [facility] Alkaline phosphatase [Enzymatic activity/volume] in Serum or Plasma 94 U/L 38 - 126 [facility] Aspartate aminotransferase [Enzymatic activity/volume] in Serum or Plasma 30 U/L 5 - 40 [facility] Alanine aminotransferase [Enzymatic activity/volume] in Seru m or Plasma 33 U/L 7 - 56 [facility] Anion gap 3 in Serum or Plasma 12.0 mmol/L 8.0 - 16.0 [facility] AGE [address] [facility] NON-AA GFR >60 mL/min [facility] AFR AMER GFR >60 mL/min [facility] Male GFR In terprentation 20-49 [...] >32 mL/min Normal ID Date Data Source [id number] 01/04/2020 06:40:00 PM EST [facility] Name Value Range Interpretation Code Description Data Adriana rce(s) Supporting Document(s) CBC W/AUTOMATED DIFF [facility] COMPLETE BLOOD COUNT Leukocytes [#/volume] in Blood by Automated count 9.3 10^3/uL 4.2 - 1 1.0 [facility] Erythrocytes [#/volume] in Blood by Automated count 5.86 10^6/uL 4. 50 - 6.30 [facility] Hemoglobin [Mass/volume] in Blood 17.6 g/dL 14.0 - 16.0 H [facility] Hematocrit [Volume Fraction] of Blood by Automated count 51.3 % 4 1.0 - 51.0 H [facility] Erythrocyte mean corpuscular volume [Entitic volume] by Auto mated count 87.5 fL 80.0 - 94.0 [facility] Erythrocyte mean corpuscular hemoglobin [Entitic mass] by Automated count 30.0 pg 27.0 - 34.0 [facility] Erythrocyte mean corpuscular hemoglobin concentration [Mass/volume] by Automated count 34.3 g/dL 31.0 - 36.0 [facility] Erythrocyte distribution width [Ratio] by Automated count 12.0 % 11.5 - 14.8 [facility] Platelets [#/volume] in Blood by Automated count 430 10^3/uL 150 - 45 0 [facility] Platelet mean volume [Entitic volume] in Blood by Automated count 9.2 fL 7.4 - 10.4 [facility] Neutrophils/100 leukocytes in Blood by Automated count 62.5 % 37. 0 - 80.0 [facility] Lymphocytes/100 leukocytes in Blood by Manual count 26.9 % 25.0 - 40.0 [facility] Monocytes/100 leukocytes in Blood by Automated count 7.3 % 3.0 - 8.0 [facility] Eosinophils/100 leukocytes in Blood by Automated count 2.0 % 0.0 - 7.0 [facility] Basophils/100 leukocytes in Blood by Automated count 1.0 % 0.0 - 2.0 [facility] %IG 0.3 % 0.0 - 0.0 H [facility] al %NRBC 0.0 % 0.0 - 0.0 [facility] al Neutrophils [#/volume] in Blood by Automated count 5.82 10^3/uL 2.00 - 6.90 [facility] Lymphocytes [#/volume] in Blood by Automated count 2.50 10^3/uL 0.60 - 3.40 [facility] Monocytes [#/volume] in Blood by Automated count 0.68 10^3/uL 0.00 - 0.90 [facility] Eosinophils [#/volume] in Blood by Automated count 0.19 10^3/uL 0.00 - 0.70 [facility] Basophils [#/volume] in Blood by Automated count 0.09 10^3/uL 0.00 - 0.20 [facility] #IG 0.03 10^3/uL 0.00 - 0.10 [facility] #NRBC 0.00 10^3/uL 0.00 - 0.00 [facility] MANUAL DIFF NOT INDICATED [facility] RBC MORPH NOT INDICATED [facility] ID Date Data Source [id number] 11/12/2019 01:02:29 PM EDT [facility], PCName: Delonte ZamoranoDOB: 1985Provider: Reji [...] Order Comments: 12 sessionsplease fax reports to ([phone]. thank you Due: [id number]; Last Updated By: Stephanie Nina; 11/12/2019 1:01:12 [...] document was dictated and electronically signed using [employer] software. A reasonable attempt at proof reading [...] Ex-drinker (finding) comp leted Ex- drinker (finding) [facility] Tobacco use and exposure 07/22/2020 12:00:00 AM EDT Never used co mpleted Never used [facility] Cigarette pack-years 07/22/2020 12:00:00 AM EDT [facility] Cigarettes smoked current (pack per day) - Reported 07/23/19 12:00:00 AM EDT UNK [facility]spital Smoking 07/22/2020 12:00:00 AM EDT Current every day smoker co mpleted Current every day smoker [facility] Alcohol intake 04/28/2020 12:00:00 AM EDT Ex-drinker (finding) comp leted Ex- drinker (finding) [facility] Alcohol intake 04/09/2020 12:00:00 AM EST Current drinker of al cohol (finding) completed Current drinker of alcohol (finding) [facility] Smoking 02/17/2020 12:00:00 AM EST Current Smoker completed Curre nt Smoker eCW1 ([facility]) Alcohol intake 01/05/2020 12:00:00 AM EST Yes completed [facility] Smoking 01/05/2020 12:00:00 AM EST Former smoker completed Former smoker [facility] Vital Signs ID Date Data Source UNK Name Value Range Interpretation Code Description Data Source(s) Body height 71 [in_i] 71 [in_i] TOWANDA ([facility]) Diastolic blood pressure 103 mm[Hg] 103 mm[Hg] TOWANDA ([facility]) Diastolic blood pressure 111 mm[Hg] 111 mm[Hg] MARJORIE ([facility]) Body height 71 [in_i] 71 [in_i] MARJORIE ([facility]) Body mass index (BMI) [Ratio] 29.8 kg/m2 29.8 k g/m2 MARJORIE ([facility]) Systolic blood pressure 150 mm[Hg] 150 mm[Hg] A [facility] ([facility]) Systolic blood pressure 162 mm[Hg] 162 mm[Hg] A [facility] ([facility]) Body weight 3424 [oz_av] 3424 [oz_av] MARJORIE ([facility]) Diastolic blood pressure 103 mm[Hg] 103 mm[Hg] MARJORIE ([facility]) Diastolic blood pressure 111 mm[Hg] 111 mm[Hg] MARJORIE ([facility]) Body height 71 [in_i] 71 [in_i] MARJORIE ([facility]) Body mass index (BMI) [Ratio] 29.8 kg/m2 29.8 k g/m2 MARJORIE ([facility]) Systolic blood pressure 150 mm[Hg] 150 mm[Hg] A [facility] ([facility]) Systolic blood pressure 162 mm[Hg] 162 mm[Hg] A [facility] ([facility]) Body weight 3424 [oz_av] 3424 [oz_av] MARJORIE ([facility]) Diastolic blood pressure 76 mm[Hg] 76 mm[Hg] MARJORIE ([facility]) Diastolic blood pressure 91 mm[Hg] 91 mm[Hg] MARJORIE ([facility]) Body height 71 [in_i] 71 [in_i] MARJORIE ([facility]) Body mass index (BMI) [Ratio] 30.3 kg/m2 30.3 k g/m2 MARJORIE ([facility]) Systolic blood pressure 154 mm[Hg] 154 mm[Hg] A THENA ([facility]) Systolic blood pressure 149 mm[Hg] 149 mm[Hg] A THENA ([facility]) Body weight 3472 [oz_av] 3472 [oz_av] MARJORIE ([facility]) Diastolic blood pressure 76 mm[Hg] 76 mm[Hg] MARJORIE ([facility]) Diastolic blood pressure 91 mm[Hg] 91 mm[Hg] MARJORIE ([facility]) Body height 71 [in_i] 71 [in_i] MARJORIE ([facility]) Body mass index (BMI) [Ratio] 30.3 kg/m2 30.3 k g/m2 MARJORIE ([facility]) Systolic blood pressure 154 mm[Hg] 154 mm[Hg] A THENA ([facility]) Systolic blood pressure 149 mm[Hg] 149 mm[Hg] A THENA ([facility]) Body weight 3472 [oz_av] 3472 [oz_av] MARJORIE ([facility]) Diastolic blood pressure 76 mm[Hg] 76 mm[Hg] MARJORIE ([facility]) Diastolic blood pressure 91 mm[Hg] 91 mm[Hg] MARJORIE ([facility]) Body height 71 [in_i] 71 [in_i] MARJORIE ([facility]) Body mass index (BMI) [Ratio] 30.3 kg/m2 30.3 k g/m2 MARJORIE ([facility]) Systolic blood pressure 154 mm[Hg] 154 mm[Hg] A THENA ([facility]) Systolic blood pressure 149 mm[Hg] 149 mm[Hg] A THENA ([facility]) Body weight 3472 [oz_av] 3472 [oz_av] MARJORIE ([facility]) Diastolic blood pressure 76 mm[Hg] 76 mm[Hg] MARJORIE ([facility]) Diastolic blood pressure 91 mm[Hg] 91 mm[Hg] MARJORIE ([facility]) Body height 71 [in_i] 71 [in_i] MARJORIE ([facility]) Body mass index (BMI) [Ratio] 30.3 kg/m2 30.3 k g/m2 MARJORIE ([facility]) Systolic blood pressure 154 mm[Hg] 154 mm[Hg] A THENA ([facility]) Systolic blood pressure 149 mm[Hg] 149 mm[Hg] A THENA ([facility]) Body weight 3472 [oz_av] 3472 [oz_av] MARJORIE ([facility]) Diastolic blood pressure 89 mm[Hg] 89 mm[Hg] MARJORIE ([facility]) Body height 71 [in_i] 71 [in_i] MARJORIE ([facility]) Body mass index (BMI) [Ratio] 30.5 kg/m2 30.5 k g/m2 MARJORIE ([facility]) Systolic blood pressure 146 mm[Hg] 146 mm[Hg] A THENA ([facility]) Body weight 3494.4 [oz_av] 3494.4 [oz_av] ATHEN A ([facility]) Diastolic blood pressure 89 mm[Hg] 89 mm[Hg] MARJORIE ([facility]) Body height 71 [in_i] 71 [in_i] MARJORIE ([facility]) Body mass index (BMI) [Ratio] 30.5 kg/m2 30.5 k g/m2 MARJORIE ([facility]) Systolic blood pressure 146 mm[Hg] 146 mm[Hg] A THENA ([facility]) Body weight 3494.4 [oz_av] 3494.4 [oz_av] ATHEN A ([facility]) Diastolic blood pressure 89 mm[Hg] 89 mm[Hg] MARJORIE ([facility]) Body height 71 [in_i] 71 [in_i] MARJORIE ([facility]) Body mass index (BMI) [Ratio] 30.5 kg/m2 30.5 k g/m2 MARJORIE ([facility]) Systolic blood pressure 146 mm[Hg] 146 mm[Hg] A THENA ([facility]) Body weight 3494.4 [oz_av] 3494.4 [oz_av] ATHEN A ([facility]) Diastolic blood pressure 89 mm[Hg] 89 mm[Hg] MARJORIE ([facility]) Body height 71 [in_i] 71 [in_i] MARJORIE ([facility]) Body mass index (BMI) [Ratio] 30.5 kg/m2 30.5 k g/m2 MARJORIE ([facility]) Systolic blood pressure 146 mm[Hg] 146 mm[Hg] A THENA ([facility]) Body weight 3494.4 [oz_av] 3494.4 [oz_av] ATHEN A ([facility]) Diastolic blood pressure 89 mm[Hg] 89 mm[Hg] MARJORIE ([facility]) Body height 71 [in_i] 71 [in_i] MARJORIE ([facility]) Body mass index (BMI) [Ratio] 30.5 kg/m2 30.5 k g/m2 MARJORIE ([facility]) Systolic blood pressure 146 mm[Hg] 146 mm[Hg] A THENA ([facility]) Body weight 3494.4 [oz_av] 3494.4 [oz_av] ATHEN A ([facility]) Body weight 225 [lb_av] 225 [lb_av] eCW1 ([facility]) Body height 71.5 [in_i] 71.5 [in_i] eCW1 ([facility]) Body mass index (BMI) [Ratio] 30.94 kg/m2 30.94 kg/m2 eCW1 ([facility]) Heart rate 90 /min 90 /min eCW1 ([facility]) Respiratory rate 18 /min 18 /min eCW1 ([facility]) Body temperature 96 [degF] 96 [degF] eCW1 ([facility]) Systolic blood pressure 138 mm[Hg] 138 mm[Hg] e CW1 ([facility]) Diastolic blood pressure 74 mm[Hg] 74 mm[Hg] eCW1 ([facility]) Diastolic blood pressure 87 mm[Hg] 87 mm[Hg] MARJORIE ([facility]) Body mass index (BMI) [Ratio] 31.3 kg/m2 31.3 k g/m2 MARJORIE ([facility]) Systolic blood pressure 132 mm[Hg] 132 mm[Hg] A THENA ([facility]) Systolic blood pressure 137 mm[Hg] 137 mm[Hg] [facility] Body weight 3593.6 [oz_av] 3593.6 [oz_av] ATHEN A ([facility]) Body height 71 [in_i] 71 [in_i] MARJORIE ([facility]) Diastolic blood pressure 96 mm[Hg] 96 mm[Hg] MARJORIE ([facility]) Diastolic blood pressure 87 mm[Hg] 87 mm[Hg] MARJORIE ([facility]) Diastolic blood pressure 96 mm[Hg] 96 mm[Hg] MARJORIE ([facility]) Body height 71 [in_i] 71 [in_i] MARJORIE ([facility]) Body mass index (BMI) [Ratio] 31.3 kg/m2 31.3 k g/m2 MARJORIE ([facility]) Systolic blood pressure 132 mm[Hg] 132 mm[Hg] A THENA ([facility]) Systolic blood pressure 137 mm[Hg] 137 mm[Hg] A THENA ([facility]) Body weight 3593.6 [oz_av] 3593.6 [oz_av] ATHEN A ([facility]) Diastolic blood pressure 87 mm[Hg] 87 mm[Hg] MARJORIE ([facility]) Diastolic blood pressure 96 mm[Hg] 96 mm[Hg] MARJORIE ([facility]) Body height 71 [in_i] 71 [in_i] MARJORIE ([facility]) Body mass index (BMI) [Ratio] 31.3 kg/m2 31.3 k g/m2 MARJORIE ([facility]) Systolic blood pressure 132 mm[Hg] 132 mm[Hg] A THENA ([facility]) Systolic blood pressure 137 mm[Hg] 137 mm[Hg] A THENA ([facility]) Body weight 3593.6 [oz_av] 3593.6 [oz_av] ATHEN A ([facility]) Diastolic blood pressure 87 mm[Hg] 87 mm[Hg] MARJORIE ([facility]) Diastolic blood pressure 96 mm[Hg] 96 mm[Hg] MARJORIE ([facility]) Body height 71 [in_i] 71 [in_i] MARJORIE ([facility]) Body mass index (BMI) [Ratio] 31.3 kg/m2 31.3 k g/m2 MARJORIE ([facility]) Systolic blood pressure 132 mm[Hg] 132 mm[Hg] [facility] Systolic blood pressure 137 mm[Hg] 137 mm[Hg] A [facility] ([facility]) Body weight 3593.6 [oz_av] 3593.6 [oz_av] ATHEN A ([facility]) Diastolic blood pressure 87 mm[Hg] 87 mm[Hg] MARJORIE ([facility]) Diastolic blood pressure 96 mm[Hg] 96 mm[Hg] MARJORIE ([facility]) Body height 71 [in_i] 71 [in_i] MARJORIE ([facility]) Body mass index (BMI) [Ratio] 31.3 kg/m2 31.3 k g/m2 MARJORIE ([facility]) Systolic blood pressure 132 mm[Hg] 132 mm[Hg] A THENA ([facility]) Systolic blood pressure 137 mm[Hg] 137 mm[Hg] [facility]) Body weight 3593.6 [oz_av] 3593.6 [oz_av] ATHEN A ([facility]) Diastolic blood pressure 87 mm[Hg] 87 mm[Hg] MARJORIE ([facility]) Diastolic blood pressure 96 mm[Hg] 96 mm[Hg] MARJORIE ([facility]) Body height 71 [in_i] 71 [in_i] MARJORIE ([facility]) Body mass index (BMI) [Ratio] 31.3 kg/m2 31.3 k g/m2 MARJORIE ([facility]) Systolic blood pressure 132 mm[Hg] 132 mm[Hg] A THENA ([facility]) Systolic blood pressure 137 mm[Hg] 137 mm[Hg] A THENA ([facility]) Body weight 3593.6 [oz_av] 3593.6 [oz_av] IRLANDA A ([facility]) Systolic blood pressure 112 mm[Hg] 112 mm[Hg] [facility] Diastolic blood pressure 78 mm[Hg] 78 mm[Hg] [facility] Heart rate 74 /min 74 /min [facility] Body temperature 36.78 Nic 36.78 Nic [facility] Respiratory rate 18 /min 18 /min [facility] Oxygen saturation in Arterial blood by Pulse oximetry 96 % 96 % [facility] Body height 180.3 cm 180.3 cm [facility] Body weight 104.237 kg 104.237 kg [facility] Body mass index (BMI) [Ratio] 32.05 kg/m2 32.05 kg/m2 [facility] ID Date Data Source [id number] 05/08/2020 05:57:13 PM [facility] Name Value Range Interpretation Code Description Data Source(s) WEIGHT RECORDED 215 lb 215 lb [facility] Body height Measured 71 in 71 in [facility] ID Date Data Source [id number] 04/21/2020 02:08:24 PM [facility] Name Value Range Interpretation Code Description Data Source(s) TRANSFER FROM [facility] Patient Treatment Plan of Care Planned Activity Planned Date Details Description Data Source (s) 24 HR Nicotine 0.875 MG/HR Transdermal Patch 04/13/2020 12:00:00 AM [facility] pantoprazole 40 MG Delayed Release Oral Tablet 04/13/2020 12:00:00 AM [facility] Cholecalciferol 1000 UNT Oral Tablet 04/13/2020 12:00:00 AM [facility] Melatonin 5 MG Oral Tablet 04/12/2020 10:00:00 PM [facility] Baclofen 10 MG Oral Tablet 04/12/2020 12:00:00 AM [facility] Prednisone 50 MG Oral Tablet 04/12/2020 12:00:00 AM [facility] Prednisone 50 MG Oral Tablet 04/12/2020 12:00:00 AM [facility] Prednisone 20 MG Oral Tablet 04/12/2020 12:00:00 AM [facility] Nortriptyline 10 MG Oral Capsule 04/12/2020 12:00:00 AM [facility] Melatonin 5 MG Oral Tablet 04/12/2020 12:00:00 AM [facility] methylPREDNISolone (MEDROL, ROSALIO,) 4 MG tablet 01/06/2020 12:00:00 A [facility] Oxycodone Hydrochloride 5 MG Oral Tablet 01/06/2020 12:00:00 AM [facility] Ondansetron 8 MG Disintegrating Oral Tablet MARJORIE ([facility]) Naproxen 500 MG Oral Tablet MARJORIE ([facility]) Magnesium Hydroxide 80 MG/ML Oral Suspension MARJORIE ([facility]) methylprednisolone 4 mg tablets in a dos e pack TAKE BY MOUTH FOLLOWING PACKAGE INSTRUCTIONS MARJORIE ([facility]) Methocarbamol 750 MG Oral Tablet MARJORIE ([facility]) Methocarbamol 500 MG Oral Tablet MARJORIE ([facility]) Ketorolac Tromethamine 10 MG Oral Tablet MARJORIE ([facility]) gabapentin 100 MG Oral Capsule MARJORIE ([facility]) Cyclobenzaprine hydrochloride 10 MG Oral Tablet MARJORIE ([facility]) Baclofen 5 MG Oral Tablet AT NESHA ([facility]) Azithromycin 250 MG Oral Tablet MARJORIE ([facility]) albuterol sulfate HFA 90 mcg/actuation a erosol inhaler INHALE 4 PUFFS EVERY 4 TO 6 HOURS NEEDED FOR WHEEZING MARJORIE ([facility]) 24 HR venlafaxine 37.5 MG Extended Release Oral Capsule MARJORIE ([facility]) tramadol hydrochloride 50 MG Oral Tablet MARJORIE ([facility]) 12 HR Oxycodone Hydrochloride 60 MG Extended Release Oral Ta blet [Oxycontin] MARJORIE ([facility]) 12 HR Oxycodone Hydrochloride 30 MG Extended Release Oral Ta blet [Oxycontin] MARJORIE ([facility]) Oxycodone Hydrochloride 5 MG Oral Tablet MARJORIE ([facility]) Oxycodone Hydrochloride 10 MG Oral Tablet MARJORIE ([facility]) oxycodone MARJORIE ([facility]) Ondansetron 8 MG Disintegrating Oral Tablet MARJORIE ([facility]) Naproxen 500 MG Oral Tablet MARJORIE ([facility]) Magnesium Hydroxide 80 MG/ML Oral Suspension MARJORIE ([facility]) methylprednisolone 4 mg tablets in a dos e pack TAKE BY MOUTH FOLLOWING PACKAGE INSTRUCTIONS MARJORIE ([facility]) Methocarbamol 750 MG Oral Tablet MARJORIE ([facility]) Methocarbamol 500 MG Oral Tablet MARJORIE ([facility]) Ketorolac Tromethamine 10 MG Oral Tablet MARJORIE ([facility]) gabapentin 100 MG Oral Capsule MARJORIE ([facility]) Cyclobenzaprine hydrochloride 10 MG Oral Tablet MARJORIE ([facility]) Baclofen 5 MG Oral Tablet AT NESHA ([facility]) Azithromycin 250 MG Oral Tablet MARJORIE ([facility]) albuterol sulfate HFA 90 mcg/actuation a erosol inhaler INHALE 4 PUFFS EVERY 4 TO 6 HOURS NEEDED FOR WHEEZING MARJORIE ([facility]) 24 HR venlafaxine 37.5 MG Extended Release Oral Capsule MARJORIE ([facility]) tramadol hydrochloride 50 MG Oral Tablet MARJORIE ([facility]) 12 HR Oxycodone Hydrochloride 60 MG Extended Release Oral Ta blet [Oxycontin] MARJORIE ([facility]) 12 HR Oxycodone Hydrochloride 30 MG Extended Release Oral Ta blet [Oxycontin] MARJORIE ([facility]) Oxycodone Hydrochloride 5 MG Oral Tablet MARJORIE ([facility]) Oxycodone Hydrochloride 10 MG Oral Tablet MARJORIE ([facility]) oxycodone MARJORIE ([facility]) Ondansetron 8 MG Disintegrating Oral Tablet MARJORIE ([facility]) Naproxen 500 MG Oral Tablet MARJORIE ([facility]) Magnesium Hydroxide 80 MG/ML Oral Suspension MARJORIE ([facility]) methylprednisolone 4 mg tablets in a dos e pack TAKE BY MOUTH FOLLOWING PACKAGE INSTRUCTIONS MARJORIE ([facility]) Methocarbamol 750 MG Oral Tablet MARJORIE ([facility]) Methocarbamol 500 MG Oral Tablet MARJORIE ([facility]) Ketorolac Tromethamine 10 MG Oral Tablet MARJORIE ([facility]) gabapentin 100 MG Oral Capsule MARJORIE ([facility]) Cyclobenzaprine hydrochloride 10 MG Oral Tablet MARJORIE ([facility]) Baclofen 5 MG Oral Tablet AT NESHA ([facility]) Azithromycin 250 MG Oral Tablet MARJORIE ([facility]) albuterol sulfate HFA 90 mcg/actuation a erosol inhaler INHALE 4 PUFFS EVERY 4 TO 6 HOURS NEEDED FOR WHEEZING MARJORIE ([facility]) Baclofen 5 MG Oral Tablet [facility] tramadol hydrochloride 50 MG Oral Tablet MARJORIE ([facility]) Prednisone 50 MG Oral Tablet MARJORIE ([facility]) 12 HR Oxycodone Hydrochloride 60 MG Extended Release Oral Ta blet [Oxycontin] MARJORIE ([facility]) 12 HR Oxycodone Hydrochloride 30 MG Extended Release Oral Ta blet [Oxycontin] MARJORIE ([facility]) Oxycodone Hydrochloride 5 MG Oral Tablet MARJORIE ([facility]) Oxycodone Hydrochloride 10 MG Oral Tablet MARJORIE ([facility]) oxycodone MARJORIE ([facility]) Ondansetron 8 MG Disintegrating Oral Tablet MARJORIE ([facility]) Naproxen 500 MG Oral Tablet MARJORIE ([facility]) Magnesium Hydroxide 80 MG/ML Oral Suspension MARJORIE ([facility]) methylprednisolone 4 mg tablets in a dos e pack TAKE BY MOUTH FOLLOWING PACKAGE INSTRUCTIONS MARJORIE ([facility]) Methocarbamol 500 MG Oral Tablet MARJORIE ([facility]) Ketorolac Tromethamine 10 MG Oral Tablet MARJORIE ([facility]) gabapentin 100 MG Oral Capsule MARJORIE ([facility]) Cyclobenzaprine hydrochloride 10 MG Oral Tablet MARJORIE ([facility]) Azithromycin 250 MG Oral Tablet MARJORIE ([facility]) albuterol sulfate HFA 90 mcg/actuation a erosol inhaler INHALE 4 PUFFS EVERY 4 TO 6 HOURS NEEDED FOR WHEEZING MARJORIE ([facility]) Prednisone 50 MG Oral Tablet MARJORIE ([facility]) 12 HR Oxycodone Hydrochloride 60 MG Extended Release Oral Ta blet [Oxycontin] MARJORIE ([facility]) 12 HR Oxycodone Hydrochloride 30 MG Extended Release Oral Ta blet [Oxycontin] MARJORIE ([facility]) Oxycodone Hydrochloride 10 MG Oral Tablet MARJORIE ([facility]) oxycodone MARJORIE ([facility]) Ondansetron 8 MG Disintegrating Oral Tablet MARJORIE ([facility]) Naproxen 500 MG Oral Tablet MARJORIE ([facility]) Magnesium Hydroxide 80 MG/ML Oral Suspension MARJORIE ([facility]) Methocarbamol 500 MG Oral Tablet MARJORIE ([facility]) Ketorolac Tromethamine 10 MG Oral Tablet MARJORIE ([facility]) gabapentin 100 MG Oral Capsule MARJORIE ([facility]) Cyclobenzaprine hydrochloride 10 MG Oral Tablet MARJORIE ([facility]) Azithromycin 250 MG Oral Tablet MARJORIE ([facility]) vitamin d3 25 mcg (1000 ut) tabs MARJORIE ([facility]) 24 HR venlafaxine 37.5 MG Extended Release Oral Capsule MARJORIE ([facility]) tramadol hydrochloride 50 MG Oral Tablet MARJORIE ([facility]) Docusate Sodium 50 MG / sennosides, [facility] 8.6 MG Oral Tablet MARJORIE ([facility]) Prednisone 50 MG Oral Tablet MARJORIE ([facility]) pantoprazole 40 MG Delayed Release Oral Tablet MARJORIE ([facility]) 12 HR Oxycodone Hydrochloride 60 MG Extended Release Oral Ta blet [Oxycontin] MARJORIE ([facility]) 12 HR Oxycodone Hydrochloride 30 MG Extended Release Oral Ta blet [Oxycontin] MARJORIE ([facility]) Oxycodone Hydrochloride 5 MG Oral Tablet MARJORIE ([facility]) Oxycodone Hydrochloride 10 MG Oral Tablet MARJORIE ([facility]) oxycodone MARJORIE ([facility]) Ondansetron 4 MG Oral Tablet MARJORIE ([facility]) Ondansetron 8 MG Disintegrating Oral Tablet MARJORIE ([facility]) Nortriptyline 50 MG Oral Capsule MARJORIE ([facility]) Nortriptyline 25 MG Oral Capsule MARJORIE ([facility]) Nortriptyline 10 MG Oral Capsule MARJORIE ([facility]) 24 HR Nicotine 0.875 MG/HR Transdermal Patch MARJORIE ([facility]) Naproxen 500 MG Oral Tablet MARJORIE ([facility]) Magnesium Hydroxide 80 MG/ML Oral Suspension MARJORIE ([facility]) methylprednisolone 4 mg tablets in a dos e pack TAKE BY MOUTH FOLLOWING PACKAGE INSTRUCTIONS MARJORIE ([facility]) Methocarbamol 750 MG Oral Tablet MARJORIE ([facility]) Methocarbamol 500 MG Oral Tablet MARJORIE ([facility]) Melatonin 5 MG Oral Tablet A [facility] ([facility]) Ketorolac Tromethamine 10 MG Oral Tablet MARJORIE ([facility]) Haloperidol 2 MG Oral Tablet MARJORIE ([facility]) gabapentin 100 MG Oral Capsule MARJORIE ([facility]) Docusate Sodium 100 MG Oral Capsule [DOK] MARJORIE ([facility]) Cyclobenzaprine hydrochloride 10 MG Oral Tablet MARJORIE ([facility]) Clonazepam 0.5 MG Oral Tablet MARJORIE ([facility]) Cholecalciferol 1000 UNT Oral Capsule MARJORIE ([facility]) Baclofen 5 MG Oral Tablet AT NESHA ([facility]) Baclofen 10 MG Oral Tablet A THEN ([facility]) Azithromycin 250 MG Oral Tablet MARJORIE ([facility]) Amlodipine 10 MG Oral Tablet MARJORIE ([facility]) albuterol sulfate HFA 90 mcg/actuation a erosol inhaler INHALE 4 PUFFS EVERY 4 TO 6 HOURS NEEDED FOR WHEEZING MARJORIE ([facility]) Acetaminophen 500 MG Oral Tablet MARJORIE ([facility]) tramadol hydrochloride 50 MG Oral Tablet MARJORIE ([facility]) 12 HR Oxycodone Hydrochloride 60 MG Extended Release Oral Ta blet [Oxycontin] MARJORIE ([facility]) 12 HR Oxycodone Hydrochloride 30 MG Extended Release Oral Ta blet [Oxycontin] MARJORIE ([facility]) Oxycodone Hydrochloride 5 MG Oral Tablet MARJORIE ([facility]) Oxycodone Hydrochloride 10 MG Oral Tablet MARJORIE ([facility]) oxycodone MARJORIE ([facility])
[2020-12-19 19:29] LABS: AMPHETAMINES LEVEL URINE NEGATIVE (NEGATIVE); BARBITURATES URINE NEGATIVE (NEGATIVE); BENZODIAZEPINES URINE NEGATIVE (NEGATIVE); CANNABINOIDS URINE POSITIVE (NEGATIVE); COCAINE METABOLITE URINE NEGATIVE (NEGATIVE); METHADONE URINE NEGATIVE (NEGATIVE); OPIATES URINE NEGATIVE (NEGATIVE); PHENCYCLIDINE URINE NEGATIVE (NEGATIVE)
--- NOTE | 2020-12-19 19:33 | REP ---
INDICATION: trauma. COMPARISON: None. TECHNIQUE: Four views of both hands were obtained. FINDINGS: There is no evidence of fracture or dislocation. There is no significant arthropathy of either hand. There is apparent soft tissue swelling over the dorsum of both hands. IMPRESSION: 1. Nonspecific soft tissue swelling. 2. No evidence of fracture, dislocation or significant arthropathy. <Electronically signed by Car Guerrero > 12/19/201928
[2020-12-19] MEDS ORDERED: hydrOXYzine 50 MG TAB PO ONE (20:50)
[2020-12-19 22:11] LABS: RSV AMPLIFICATION NEGATIVE (NEGATIVE)
[2020-12-19] MEDS ORDERED: HYDR50CA2 PO (23:59)
[2020-12-19] MEDS ORDERED: LISI10TA22 PO (23:59)
[2020-12-20] MEDS ORDERED: HOME MED LIST COMPLETE! XX SCH
[2020-12-20] MEDS: NICOTINE 21MG/24HR 1 EA TRANSDERMAL TD SCH (09:00)
--- NOTE | 2020-12-20 10:05 | ECGEPIP ---
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
[2020-12-20] MEDS ORDERED: ACETAMINOPH W/CODEINE #3 TAB UD PO ONE (12:30)
[2020-12-20] MEDS ORDERED: MAALOX 30 ML SUSP *UDC PO PRN (16:10)
[2020-12-20] MEDS ORDERED: ACETAMINOPHEN TAB 650MG DOSE (2X325MG) PO PRN (16:10)
[2020-12-20] MEDS ORDERED: traZODone 50 MG TAB PO PRN (16:10)
[2020-12-20] MEDS ORDERED: MOM 30ML SUSPENSION UDC PO PRN (16:10)
--- OUTSIDE RECORDS SUMMARY | 2020-12-20 16:26 | CCD ---
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 Name Role Phone Alicia Martin MD Unavailable [...] Unavailable JOHNSON, ANTONI MARIBEL RPA-C Unavailable Unavailable OJHNSON, ANTONI MARIBEL RPA-C Unavailable Unavailable JOHNSON, ANTONI [...] Unavailable Unavailable Maryann GRIGGS MD Unavailable Unavailable CYN, J REJI MD Unavailable Unavailable Maryann GRIGGS MD Unavailable [...] Unavailable Unavailable Maryann GRIGGS MD Unavailable Unavailable Shay FRANCO, A Juan Unavailable Shay FRANCO, A Juan Unavailable Shay FRANCO, A Juan Unavailable Shay FRANCO, A Juan Unavailable Shay FRANCO, A Juan Unavailable Shay FRANCO, A Juan Unavailable Shay FRANCO, A Juan Unavailable Shay FRANCO, A Juan Unavailable Shay FRANCO, A Juan Unavailable Shay MD, A Juan [...] MD, A Juan Unavailable Shay MD, A Ujan Unavailable Shay FRANCO, A Juan Unavailable Shay FRANCO, A Juan Unavailable Shay MD, A Juan [...] JOHNSON, ANTONI MARIBEL RPA-C Unavailable Unavailable JOHNSON, NATONI MARIBEL RPA-C Unavailable Unavailable JOHNSON, ANTONI MARIBEL [...] Unavailable Unavailable KARIME DUFFY MD Unavailable Unavailable Maryann ZAMORANO MD Unavailable Unavailable Maryann ZAMORANO MD Unavailable Unavailable Maryann ZAMORANO MD Unavailable Unavailable Maryann ZAMORANO MD Unavailable Unavailable Maryann ZAMORANO MD Unavailable Unavailable Maryann ZAMORANO MD Unavailable Unavailable Maryann ZAMORANO MD Unavailable Unavailable Maryann ZAMORANO MD Unavailable Unavailable Maryann ZAMORAON MD Unavailable Unavailable Maryann ZAMORANO MD Unavailable [...] Unavailable Unavailable Maryann ZAMORANO MD Unavailable Unavailable Mrayann ZAMORANO MD Unavailable Unavailable Maryann ZAMORANO MD [...] Unavailable Unavailable Maryann ZAMORANO MD Unavailable Unavailable PANG, CAITLIN Unavailable Unavailable [...] CAITLIN Unavailable Unavailable PANG, CAITLIN Unavailable Unavailable Nicole, Elle COMPRESSION MOLDING MACHINE OPERATOR Unavailable Unavailable Nicole, Elle COMPRESSION MOLDING MACHINE OPERATOR Unavailable Unavailable Nicole, Elle COMPRESSION MOLDING MACHINE OPERATOR Unavailable Unavailable Kearny, Elle COMPRESSION MOLDING MACHINE OPERATOR Unavailable Unavailable Nicole, Elle COMPRESSION MOLDING MACHINE OPERATOR Unavailable Unavailable Nicole, Elle COMPRESSION MOLDING MACHINE OPERATOR Unavailable Unavailable [place], Elle COMPRESSION MOLDING MACHINE OPERATOR Unavailable Unavailable [place], Elle COMPRESSION MOLDING MACHINE OPERATOR Unavailable Unavailable [place], Elle COMPRESSION MOLDING MACHINE OPERATOR Unavailable Unavailable [place], Elle COMPRESSION MOLDING MACHINE OPERATOR Unavailable Unavailable [place], Elle COMPRESSION MOLDING MACHINE OPERATOR Unavailable Unavailable Nicole, Elle COMPRESSION MOLDING MACHINE OPERATOR Unavailable Unavailable [place], Elle COMPRESSION MOLDING MACHINE OPERATOR Unavailable Unavailable [place], Elle COMPRESSION MOLDING MACHINE OPERATOR Unavailable Unavailable [place], Elle COMPRESSION MOLDING MACHINE OPERATOR Unavailable Unavailable Nicole, Elle COMPRESSION MOLDING MACHINE OPERATOR Unavailable Unavailable [place], Elle COMPRESSION MOLDING MACHINE OPERATOR Unavailable Unavailable Nicole, Elle COMPRESSION MOLDING MACHINE OPERATOR Unavailable Unavailable [place], Elle COMPRESSION MOLDING MACHINE OPERATOR Unavailable Unavailable Nicole, Elle COMPRESSION MOLDING MACHINE OPERATOR Unavailable Unavailable Nicole, Elle COMPRESSION MOLDING MACHINE OPERATOR Unavailable Unavailable Nicole, Elle COMPRESSION MOLDING MACHINE OPERATOR Unavailable Unavailable [place], Elle COMPRESSION MOLDING MACHINE OPERATOR Unavailable Unavailable [place], Elle COMPRESSION MOLDING MACHINE OPERATOR Unavailable Unavailable [place], Elle COMPRESSION MOLDING MACHINE OPERATOR Unavailable Unavailable [place], Elle COMPRESSION MOLDING MACHINE OPERATOR Unavailable Unavailable [place], Elle COMPRESSION MOLDING MACHINE OPERATOR Unavailable Unavailable [place], Elle COMPRESSION MOLDING MACHINE OPERATOR Unavailable Unavailable [place], Elle COMPRESSION MOLDING MACHINE OPERATOR Unavailable Unavailable [place], Elle COMPRESSION MOLDING MACHINE OPERATOR Unavailable Unavailable Nicole, Elle COMPRESSION MOLDING MACHINE OPERATOR Unavailable Unavailable [place], Elel COMPRESSION MOLDING MACHINE OPERATOR Unavailable Unavailable [place], Elle COMPRESSION MOLDING MACHINE OPERATOR Unavailable Unavailable Nicole, Elle COMPRESSION MOLDING MACHINE OPERATOR Unavailable Unavailable Nicole, Elle COMPRESSION MOLDING MACHINE OPERATOR Unavailable Unavailable Maryann RICHARD MD Unavailable Unavailable [...] Unavailable HILARY, Maryann WELLS MD Unavailable Unavailable Julieta VALLE MD Unavailable [...] Unavailable Unavailable Julieta VALLE MD Unavailable Unavailable [facility], [facility] Unavailable Unavailable NICOLAS AN Unavailable Unavailable JOHNSON, [...] Unavailable JOHNSON, ANTONI MARIBEL RPA-C Unavailable Unavailable Alicia Martin MD Unavailable Unavailable [...] CAITLIN Unavailable Unavailable PANG, CAITLIN Unavailable Unavailable ELKE VEGAS MD Unavailable Unavailable ELKE VEGAS MD Unavailable Unavailable ELKE VEGAS MD Unavailable Unavailable ELKE VEGAS MD Unavailable Unavailable Ronny VARGAS MD Unavailable Unavailable CHANRonny LOVE MD Unavailable Unavailable CHANRonny LOVE MD Unavailable Unavailable CHANRonny LOVE MD Unavailable Unavailable CHANRonny LOVE MD Unavailable Unavailable CHANLIECRonny GAITAN MD Unavailable Unavailable CHANLIRonny ARITA MD Unavailable Unavailable CHANRonny LOVE MD Unavailable Unavailable CHANLIECRonny GAITAN MD Unavailable Unavailable CHANLIRonny ARITA MD Unavailable Unavailable CHANLIRonny ARITA MD Unavailable Unavailable Re-disclosure Warning The records [...] is protected by Article 27-F of the [facility] Public Health law. If you continue you may have access to information: Regarding HIV / AIDS; Provided by facilities licensed or operated by the [facility] Office of Mental Health; or Provided by the [facility] Office for People With Developmental Disabilities. If such information is present, then the following [facility] mandated warning applies: This information has been [...] law may result in a fine or prison sentence or both. A general authorization for the release of medical or other information is NOT sufficient authorization for further disc losure. Allergies and Adverse Reactions Type Description Substance Reaction Status Data Source(s ) Propensity to adverse reactions METHYLPREDNISOLONE METHYLPREDNISOLONE Other [facility] Drug allergy TORADOL TORADOL RASH; SWELLING [facility] Drug allergy GABAPENTIN GABAPENTIN HIVES [facility] Propensity to adverse reactions NO KNOWN ALLERGIES NO KNOWN ALLERGIES [facility] Propensity to adverse reactions KETOROLAC [facility]AMINE [facility] Prop[facility] to adverse reactions GABAPENTIN GABAPENTIN [facility] Family History Family Member Name Family Member Gender Family Member Status Date o f Status Description Data Source(s) Unknown [facility] () Encounters Encounter Providers Location Date Indications Data Source(s ) Outpatient Attender: Elle LOPEZ 10/21/2020 12:00: 00 AM [facility] Outpatient Attender: Elle Rivera COMPRESSION MOLDING MACHINE OPERATOR 10/18/2020 12:00: 00 AM [facility] Outpatient Attender: Elle Rivera COMPRESSION MOLDING MACHINE OPERATOR [id number] 12:00:00 AM EDT - 07/21/2020 03:50:08 [facility]: Elleroman CARRASCOPAttender: Juan miranda MD 07/16/2020 12:00:00 AM [facility] Maribel Johnson, RPA-C: [address], [place] [address], Ph. Attender: MARIBEL JOHNSON RPA-C [facility] Medical 07/08/2020 12:00:00 AM EDT [place] ([facility]) Outpatient Attender: Juan Day MD 07/02/2020 12:00:00 A M [facility] Mario Martin MD: [address], [place] [address], Ph. Attender: Mario Martin MD [facility] Medical 06/16/2020 12:00:00 AM EDT [place] ([facility]) Mario Martin MD: [address], [place] [address], Ph. Attender: Mario Martin MD [facility] Medical 06/16/2020 12:00:00 AM EDT [place] ([facility]) Outpatient Attender: Juan SCHREIBEReferrer: Mario Vargas 05/31/2020 12:00:00 AM [facility] Outpatient Attender: ELKE VEGAS MD 05/26/2020 12:0 0:00 AM [facility] Outpatient Attender: Juan Day MD [id number] 2020 12:00:00 AM EDT - 04/28/2020 05:19:40 PM EDT Spinal stenosis, site unspecified [facility] Spinal stenosis, site unspecified Emergency Attender: CHAPITO LOVEConsultant: MARIBEL JOHNSON RPA-C 04/19/2020 08:39:00 PM EDT - 04/19/2020 11:30:00 PM EDT [facility] Patient discharged. Outpatient Attender: CAITLIN Monteiroultant: MARIBEL JOHNSON RPA-C 04/16/2020 02:27:00 PM EST - 04/16/2020 03:27:00 PM EST [facility] Caitlin Pang RPA-C: [address], [place] [address], Ph. Attender: CAITLIN PANG [facility] Medical 04/16/2020 12:00:00 AM EST [place] ([facility]) Caitlin Pang RPA-C: [address], [address], [place] [address], Ph. Attender: CAITLIN PANG [facility] Medical 04/16/2020 12:00:00 AM EST [place] ([facility]) Caitlin Pang RPA-C: [address], [place] [address], Ph. Attender: CAITLIN PANG [facility] Medical 04/16/2020 12:00:00 AM EST [place] ([facility]) Caitlin Pang RPA-C: [address], [place] [address], Ph. Attender: CAITLIN PANG [facility] Medical 04/16/2020 12:00:00 AM EST [place] ([facility]) Outpatient Attender: [facility] 04/09/2020 12:3 5:00 PM EST [facility] Emergency Attender: YOAV VARGAS MDConsultant: DIYAJordan JOHNSON RPA-C 04/09/2020 11:42:00 AM EST - 04/09/2020 03:55:00 PM EST [facility] Patient discharged. Inpatient Attender: Juan Day MDAtt vinnie: KARIME DUFFY MDAdmitter: KARIME DUFFY MDReferrer: KARIME DUFFY MD [id number] 04/09/2020 12:00: 00 AM EST - 04/12/2020 12:00:00 AM EST Cerebral infarction, unspecified [facility] Cerebral infarction, unspecified Patient discharged. Caitlin Pang RPA-C: [address], [place] [address], Ph. Attender: CAITLIN PANG [facility] Medical 03/31/2020 12:00:00 AM EST [place] ([facility]) OSCAR SuarezC: [address], [place] [address], Ph. Attender: CAITLIN PANG [facility] Medical 03/31/2020 12:00:00 AM EST [place] ([facility]) Caitlin Pang RPA-C: [address], [place] [address], Ph. Attender: CAITLIN PANG [facility] Medical 03/31/2020 12:00:00 AM EST [place] ([facility]) Caitlin Pang RPA-C: [address], [place] [address], Ph. Attender: CAITLIN PANG [facility] Medical 03/31/2020 12:00:00 AM EST [place] ([facility]) Caitlin Pang RPA-C: [address], [place] [address], Ph. Attender: CAITLIN PANG [facility] Medical 03/31/2020 12:00:00 AM EST [place] ([facility]) Emergency Attender: CHAPITO Avalossultant: MARIBEL JOHNSON RPA-C 03/29/2020 11:40:00 AM EST - 03/29/2020 02:45:00 PM EST [facility] Patient discharged. [place] [id number] [facility] [address] 02/17/2020 12:00:00 AM EST eCW1 ([facility]) Recurring Patient Referrer: MARIBEL JOHNSON RPA-C 01/16/2020 1 2:45:26 PM EST [facility] Maribel Johnson RPA-C: [address], [place] [address], Ph. Attender: MARIBEL MOOREC [facility] Medical 01/09/2020 12:00:00 AM EST [place] ([facility]) Maribel Johnson RPA-C: [address], [place] [address], Ph. Attender: MARIBEL MOOREC [facility] Medical 01/09/2020 12:00:00 AM EST [place] ([facility]) Maribel Johnson RPA-C: [address], [place] [address], Ph. Attender: MARIBEL JOHNSON RPA-C [facility] Medical 01/09/2020 12:00:00 AM EST [place] ([facility]) Maribel Johnson RPA-C: [address], [place] [address], Ph. Attender: MARIBEL JOHNSON RPA-C [facility] Medical 01/09/2020 12:00:00 AM EST [place] ([facility]) Maribel Johnson RPA-C: [address], [place] [address], Ph. Attender: MARIBEL JOHNSON RPA-C [facility] Medical 01/09/2020 12:00:00 AM EST [place] ([facility]) Maribel Johnson RPA-C: [address], [place] [address], Ph. Attender: MARIBEL JOHNSON RPA-C [facility] Medical 01/09/2020 12:00:00 AM EST [place] ([facility]) Outpatient Attender: SUSAN ZAMORANO MDAt tender: REJI GRIGGS MDAttender: ANIL BASSETTCAttender: DAREN RICHARD MDAttender: NICOLAS SANZttender: NICOLAS AN MDAdmitter: REJI GRIGGS MDReferrer: NICOLAS AN MDConsultant: ANIL BASSETTCConsultant: DAREN RICHARD MD [id number] 01/04/2020 09:17:00 PM EST - 01/06/2020 05:22:00 PM EST [facility] Patient discharged. Emergency Attender: ALMAZ VALLE MDConsultant: MARIBEL JOHNSON RPA-C 01/04/2020 04:23:00 PM EST - 01/04/2020 07:47:00 PM [facility] Patient discharged. Outpatient Attender: MARIBEL MOOREC [facility] 11/17/2019 04:40:02 PM EDT [facility] Outpatient Attender: MARIBEL MOOREC [facility] 11/17/2019 04:40:02 PM EDT [facility] Outpatient Attender: MARIBEL MOOREC [facility] 11/14/2019 03:45:03 PM EDT [facility] Outpatient Attender: REJI SCHREIBEReferrer: MARIBEL TINOCO RPA-C 11/12/2019 01:02:29 PM EDT [facility] Outpatient Attender: MARIBEL ALEX RPA-C [facility] 11/10/2019 11:51:02 AM EDT [facility] Outpatient Attender: MARIBEL ALEX RPA-C [facility] 11/05/2019 09:02:03 AM EDT [facility] Recurring Patient Referrer: MARIBEL ALEX RPA-C 10/22/2019 0 8:59:55 AM EDT [facility] Recurring Patient Referrer: MARIBEL ALEX RPA-C 10/22/2019 0 8:59:06 AM EDT [facility] Outpatient Attender: Zaki Saravia JRReferrer: MARIBEL MIKE Mendoza RPA-C 07/31/2019 04:25:16 PM EDT [facility] Immunizations Vaccine Date Status Description Data Source(s) New in 2011. IIV4 01/09/2020 08:55:24 AM EST completed .5 mL [facility] ([facility]) New in 2011. IIV4 01/09/2020 08:55:24 AM EST completed .5 mL [facility] ([facility]) New in 2011. IIV4 01/09/2020 08:55:24 AM EST completed .5 mL [facility] ([facility]) New in 2011. IIV4 01/09/2020 08:55:24 AM EST completed .5 mL [facility] ([facility]) New in 2011. IIV4 01/09/2020 08:55:24 AM EST completed .5 mL [facility] ([facility]) New in 2011. IIV4 01/09/2020 08:55:24 AM EST completed .5 mL [facility] ([facility]) Medications Medication Brand Name Start [...] BY MOUTH EVERY MORNING SOLD: 05/02/2020 [facility] 2 mg 05/02/2020 12:00:00 AM EDT [...] CAPSULE BY MOUTH EVERY MORNING SOLD: 04/24/2020 [facility] 50 mg 04/13/2020 12:00:00 AM EST [...] Place 1 patch onto the skin daily [facility] pantoprazole 40 MG Delayed Release Oral Tablet Pantoprazole Sodium 40 MG Oral Tablet Delayed Release (PROTONIX) Pantoprazole Sodium 40 MG Oral Tablet De layed Release (PROTONIX) 04/13/2020 12:00:00 AM EST 40 mg Oral active Take 1 tablet by mouth daily [facility] Cholecalciferol 1000 UNT Oral Tablet Vit leal D3 25 MCG (1000 UT) Oral Tablet (CHOLECALCIFEROL) Vitamin D3 25 MCG (1000 UT) Oral Tablet (CHOLECALCIFER OL) 04/13/2020 12:00:00 AM EST 1000 U Oral active Take 1 tablet by mouth daily [facility] Melatonin 5 MG Oral Tablet melatonin tablet 5 mg melatonin t ablet 5 mg 04/12/2020 10:00:00 PM EST 5 mg Oral active 5 mg, Oral, Nightly, First dose on Sun04/12/20 at 2200, For 30 days [facility] Medication administered onsite Nortriptyline 10 MG Oral Capsule nortriptyline (PAMELO R) capsule 10 mg nortriptyline (PAMELOR) capsule 10 mg 04/12/2020 10:30:00 AM EST 10 m g Oral active 10 mg, Oral, Nightly, First dose on Sun04/12/20 at 1030, For 30 days [facility] Medication administered onsite Cholecalciferol 1000 UNT Oral Tablet vit leal D3 (CHOLECALCIFEROL) tablet 1,000 Units vitamin D3 (CHOLECALCIFEROL) tablet 1,000 Units 2020 10:15:00 AM EST 1000 U Oral active 1,000 Un its, Oral, Daily Standard, First dose on Sun04/12/20 at 1015, For 30 days
25 mcg vitamin D3 = 1,000 international units vitamin D3.
[facility] Medication administered onsite Baclofen 10 MG Oral Tablet baclofen (LIORESAL) tablet 10 mg baclofen (LIORESAL) tablet 10 mg 04/12/2020 10:15:00 AM EST 10 mg Oral activ e 10 mg, Oral, Three Times Daily Standard, First dose on Sun04/12/20 at 1015, For 30 days [facility] Medication administered onsite Prednisone 20 MG Oral Tablet predniSONE 20 MG Oral Tab let (DELTASONE) predniSONE 20 MG Oral Tablet (DELTASONE) 04/12/2020 12:00:00 AM EST 600 mg Ora l aborted Take 30 tablets by mouth Two Jim es Daily for 2 days [facility] Melatonin 5 MG Oral Tablet Melatonin 5 MG Oral Tablet 2020 12:00:00 AM EST 5 mg Oral active Take 1 tablet by mouth nightly [facility] Nortriptyline 10 MG Oral Capsule Nortriptyline HCl 10 MG Oral Capsule (PAMELOR) Nortriptyline HCl 10 MG Oral Capsule (PAMELOR) 04/12/2020 12:00:00 AM EST 10 mg Oral active Take 1 capsule by mouth nightly [facility] Baclofen 10 MG Oral Tablet Baclofen 10 MG Oral Tablet (LIORESAL) Baclofen 10 MG Oral Tablet (LIORESAL) 04/12/2020 12:00:00 AM EST 10 mg Oral active Take 1 tablet by mouth Three times daily [facility] Prednisone 50 MG Oral Tablet predniSONE 50 MG Oral Tab let (DELTASONE) predniSONE 50 MG Oral Tablet (DELTASONE) 04/12/2020 12:00:00 AM EST 600 mg Ora l active Take 12 tablets by mouth Two Jim es Daily for 2 days [facility] Prednisone 50 MG Oral Tablet predniSONE 50 MG Oral Tab let (DELTASONE) predniSONE 50 MG Oral Tablet (DELTASONE) 04/12/2020 12:00:00 AM EST 600 mg Ora l aborted Take 12 tablets by mouth Two Jim es Daily for 2 days [facility] Acetaminophen 325 MG / Hydrocodone Steve trate 5 MG Oral Tablet HYDROcodone- acetaminophen (LORTAB) 5-325 MG per tablet 1 tablet HYDROcodone-acetaminophen (LORTAB) 5-325 MG per tablet 1 tablet 04/11/2020 10:30:00 PM EST 1 {tbl} Oral completed 1 tablet, Oral, Once, 04/11/20 at 2230, For 1 dose
Maximum daily dose of acetaminophen is 3,000 mg from all sources in 24 hours.
[facility] Medication administered onsite fentaNYL (SUBLIMAZE) (PF) injection 25 mcg [id number] 04/11/2020 04:30:00 PM EST 25 ug Intravenous completed 25 mcg, Intravenous, Once, 04/11/20 at 1630, For 1 dose [facility] Medication administered onsite 24 HR Nicotine 0.875 MG/HR Transdermal P atch nicotine (NICODERM CQ) 21 MG/24HR 1 patch nicotine (NICODERM CQ) 21 MG/24HR 1 patch 04/11/2020 11:15:00 AM EST 1 {patch} Transdermal active 1 patch, Transdermal, Administer over 24 Hours, Daily Standard, First dose on 04/11/20 at 1115, For 30 days [facility] Medication administered onsite Alprazolam 0.25 MG Oral Tablet alprazolam (XANAX) tabl et 0.5 mg alprazolam (XANAX) tablet 0.5 mg 04/11/2020 11:15:00 AM EST 0.5 mg Oral active 0.5 mg, Oral, Three Times Daily-PRN, Anxiety, Starting 04/11/20 at 1115, For 48 hours [facility] Medication administered onsite pantoprazole 40 MG Delayed Release Oral Tablet pantoprazole (PROTONIX) EC tablet 40 mg pantoprazole (PROTONIX) EC tablet 40 mg 04/11/2020 09:00:[address] 40 mg Oral active 40 mg, Ora l, Daily Standard, First dose on 04/11/20 at 0900, For 30 days
Do not crush or chew
[facility] Medication administered onsite Melatonin 5 MG Oral Tablet melatonin tablet 5 mg melatonin t ablet 5 mg 04/10/2020 07:30:00 PM EST 5 mg Oral completed 5 mg, Oral, Once, 04/10/20 at 1930, For 1 dose [facility] Medication administered onsite Acetaminophen 325 MG [...] mg from all sources in 24 hours.
[facility] Medication administered onsite methylPREDNISolone sodium succinate (DAVID U-MEDROL) 1,000 mg in sodium chloride 0.9 % 100 mL IVPB 04/10/2020 03:30:00 PM EST 1000 mg Intravenous active 1,000 mg, Intravenous, at 10 0 mL/hr, Daily Standard, First dose on 04/10/20 at 1530, For 5 days [facility] Medication administered onsite gadobutrol (GADAVIST) contrast injection 9 mL [id number] 01:15:00 PM EST 0.1 mL/kg Intravenous completed 9 mL (ro unded from 9.43 mL = 0.1 mL/kg 94.3 kg Order-specific weight), Intravenous, 1 TIME IMAGING, 04/10/20 at 1315, For 1 dose
Do not mix or administer in the same IV line with other medi cations.
[facility] Medication administered onsite atorvastatin 40 MG Oral Tablet atorvastatin (LIPITOR) tablet 80 mg atorvastatin (LIPITOR) tablet 80 mg 04/10/2020 09:00:00 AM EST 80 mg Oral aborted 80 mg, Oral, Daily Standard, First dose on 04/10/20 at 0900, For 30 days [facility] Medication administered onsite 0.4 ML Enoxaparin [...] 10-12 hours prior to removing epidural catheter.
[facility] Medication administered onsite lidocaine (LIDODERM) 5 % patch 1 patch [id number] 09:00:00 AM EST 1 {patch} Transdermal active 1 patch, T ransdermal, Daily Standard, First dose on 04/10/20 at 0900, For 30 days
Apply to area of pain per patient request 12 hours on - 12 hours off
[facility] Medication administered onsite clopidogrel 75 MG Oral Tablet clopidogrel (PLAVIX) tab let 75 mg clopidogrel (PLAVIX) tablet 75 mg 04/10/2020 09:00:00 AM EST 75 mg Oral aborted 75 mg, Oral, Daily Standard, First dose on 04/10/20 at 0900, For 30 days [facility] Medication administered onsite Lisinopril 10 MG Oral Tablet lisinopril (ZESTRIL) tabl et 10 mg lisinopril (ZESTRIL) tablet 10 mg 04/10/2020 09:00:00 AM EST 10 mg Oral active 10 mg, Oral, Daily Standard, First dose on 04/10/20 at 0900, For 30 days
Check vital signs before administering
[facility] Medication administered onsite Alprazolam 0.25 MG Oral Tablet alprazolam (XANAX) tabl et 0.25 mg alprazolam (XANAX) tablet 0.25 mg 04/10/2020 08:52:50 AM EST 0.25 mg Oral aborted 0.25 mg, Oral, Daily PRN, Anxiety, Starting 04/10/20 at 0852, For 120 hours [facility] Medication administered onsite Acetaminophen 325 MG [...] mg from all sources in 24 hours.
[facility] Medication administered onsite 24 HR venlafaxine 37.5 MG Extended Relea se Oral Capsule venlafaxine (EFFEXOR-XR) 24 hr capsule 37.5 mg venlafaxine (EFFEXOR-XR) 24 hr capsule 37.5 mg 08:00:00 AM EST 37.5 mg Oral active 37.5 mg, Oral, Daily with Breakfast, First dose on Sun04/10/20 at 0800, For 30 days
Do not crush or chew
[facility] Medication administered onsite Methocarbamol 500 MG Oral Tablet methocarbamol (ROBAXI N) tablet 750 mg methocarbamol (ROBAXIN) tablet 750 mg 04/09/2020 09:15:00 PM EST 75 0 mg Oral aborted 750 mg, Oral, 2 Times Daily, First dose (after last reorder) on Sun04/09/20 at 2115, For 30 days [facility] Medication administered onsite 1 ML Lorazepam 2 MG/ML Injection LORazepam (ATIVAN) in jection 1 mg LORazepam (ATIVAN) injection 1 mg 04/09/2020 09:02:54 PM EST 1 mg Intraveno us aborted 1 mg, Intravenous, O nce PRN, Other, prior to MRI for claustrophobia, Starting Sun04/09/20 at 2102, For 2 days [facility] Medication administered onsite Cyclobenzaprine hydrochloride 10 MG Oral Tablet cyclobenzaprine (FLEXERIL) tablet 10 mg cyclobenzaprine (FLEXERIL) tablet 10 mg 04/09/2020 09:00:00 PM EST 10 mg Oral aborted 10 mg, Oral, 2 T imes Daily, First dose on Sun04/09/20 at 2100, For 30 days [facility] Medication administered onsite Acetaminophen 325 MG [...] mg from all sources in 24 hours.
[facility] Medication administered onsite 37.5 mg 03/30/2020 [...] 1 dose
Post-op day #2 Hold for BM
[facility] Medication administered onsite 4 mg 01/07/2020 12:00:00 AM EST tablets,dose pack 21 TAKE BY MOUTH FOLLOWING PACKAGE INSTRUCTIONS TAKE BY MOUTH FOLLOWING PACKAGE INSTRUCTIONS SOLD: 01/15/2020 [facility] POLYETHYLENE GLYCOL 3350 142 MG/ML Oral Solution polyethylene glycol (GLYCOLAX) packet 17 g polyethylene glycol (GLYCOLAX) packet 17 g 01/06/2020 09:00:00 AM EST 17 g Oral active 17 g, Or al, Daily, First dose on Sun01/06/20 at 0900, Post-op
Start POD #1
[facility] Medication administered onsite Oxycodone Hydrochloride 5 MG Oral Tablet oxyCODONE (ROXICODONE) 5 MG immediate release tablet oxyCODONE (ROXICODONE) 5 MG immediate release tablet 1 03/08/2019 12:00:00 AM EST 2.5 mg Oral active Take 0.5 tablets (2.5 mg total) by mouth every 6 (six) hours as needed Max Daily Amount: 10 mg [facility] methylPREDNISolone (MEDROL, ROSALIO,) 4 MG tablet [id number] 01/06/2020 12:00:00 AM EST 4 mg Oral active Take 1 t ablet (4 mg total) by mouth daily follow package directions [facility] Bisacodyl 10 MG Rectal Suppository bisacodyl (DULCOLAX ) suppository 10 mg bisacodyl (DULCOLAX) suppository 10 mg 01/06/2020 12:00:00 AM EST 10 mg Rectal active 10 mg, Rectal, Daily PRN, constipation, for constipation unrelieved by miralax/MOM, Starting Sun01/06/20 at 0000, For 4 days, Post- op
For post-op day #1, #3, and #4 Hold for BM
[facility] Medication administered onsite Magnesium Hydroxide 80 MG/ML Oral Suspen maxim magnesium hydroxide (MILK OF MAGNESIA) 400 MG/5ML suspension 30 mL magnesium hydroxide (MILK OF MAGNESIA) 4 00 MG/5ML suspension 30 mL 01/06/2020 12:00:00 AM EST 30 mL Oral active 30 mL, Oral, Daily PRN, constipation, Starting Sun01/06/20 at 0000, Post- op
Start Post-op day #1. Hold for BM
[facility] Medication administered onsite 5 mg 01/06/2020 12:00:00 AM EST tablet 15 TAKE 1/2 TABLET (2.5MG) BY MOUTH EVERY 6 HOURS NEEDED - MAXIMUM DAILY DOSE = 2 TABLETS TAKE 1/2 TABLET (2.5MG) BY MOUTH EVERY 6 HOURS NEEDED - MAXIMUM DAILY DOSE = 2 TABLETS SOLD: 01/06/2020 [facility] 1 ML Lorazepam 2 MG/ML Injection LORazepam (ATIVAN) in jection 0.5 mg LORazepam (ATIVAN) injection 0.5 mg 01/05/2020 06:00:00 PM EST 0.5 mg Intrave nous completed 0.5 mg, Intravenous, Once, Sun01/05/20 at 1800, For 1 dose
immediately prior to intravenous use, lorazepam injection must be diluted with an equal volume of sodium chloride 0.9%
[facility] Medication administered onsite Gadoterate Meglumine SOLN 10 mmol [id number] 01/05/2020 05:30:[address] 20 mL Intravenous completed 10 mmol (20 m L), Intravenous, Once, Sun01/05/20 at 1900, For 1 dose [facility] Medication administered onsite Lisinopril 10 MG Oral Tablet lisinopril (PRINIVIL,ZEST RIL) tablet 10 mg lisinopril (PRINIVIL,ZESTRIL) tablet 10 mg 01/05/2020 09:00:00 AM EST 10 mg Oral active 10 mg, Oral, Daily, First dose on Sun01/05/20 at 0900 [facility] Medication administered onsite DAILY REYMUNDO (THERAGRAN) 1 tablet [id number] 01/05/2020 09:00:00 AM EST 1 {tbl} Oral active 1 tablet, Oral, Daily, First dose on Sun01/05/20 at 0900, Post-op [facility] Medication administered onsite Acetaminophen 500 MG Oral Tablet acetaminophen (TYLENO L) tablet 1,000 mg acetaminophen (TYLENOL) tablet 1,000 mg 01/05/2020 02:10:00 AM EST 1000 mg Oral active 1,000 mg, Oral , Every 6 hours (scheduled), First dose on Sun01/05/20 at 0210, Post-op [facility] Medication administered onsite Docusate Sodium 50 MG / sennosides, RETIREMENT 8.6 MG Oral Tablet senna-docusate (PERICOLACE) 8.6-50 MG 2 tablet senna-docusate (PERICOLACE) 8.6-50 MG 2 tablet 01/05/2020 02:10:00 AM EST 2 {tbl} Oral active 2 tablet, Oral, Nightly, First dose on Sun01/05/20 at 0210, Post-op
hold for loose stools
[facility] Medication administered onsite fentaNYL Citrate (PF) (SUBLIMAZE) injection 25 mcg [id number] 01/05/2020 01:54:09 AM EST 25 ug Intravenous active 25 mcg, Intravenous, Every 3 hours PRN, for severe breakthrough pain (7-10) if oral opioid ineffective, Starting Sun01/05/20 at 0154, For 7 days, Post-op [facility] Medication administered onsite Methocarbamol 500 MG Oral Tablet methocarbamol (ROBAXI N) tablet 500 mg methocarbamol (ROBAXIN) tablet 500 mg 01/05/2020 01:54:09 AM EST 50 0 mg Oral active 500 mg, Oral, 4 times daily PRN, muscle spasms, Starting Sun01/05/20 at 0154, Post-op [facility] Medication administered onsite Oxycodone Hydrochloride 5 MG Oral Tablet oxyCODONE (ROXICODONE) immediate release tablet 2.5 mg oxyCODONE (ROXICODONE) immediate release tablet 2.5 mg 01/05/2020 01:54:09 AM EST 2.5 mg Oral active 2.5 mg, Oral, Every 4 hours PRN, moderate pain (4-6), Starting Sun01/05/20 at 0154, For 7 days, Post-op [facility] Medication administered onsite Oxycodone Hydrochloride 5 MG Oral Tablet oxyCODONE (ROXICODONE) immediate release tablet 5 mg oxyCODONE (ROXICODONE) immediate release tablet 5 mg 01/05/2020 01:54:09 AM EST 5 mg Oral active 5 mg, Oral, Every 4 hours PRN, severe pain (7-10), Starting Sun01/05/20 at 0154, For 7 days, Post-op [facility] Medication administered onsite Mineral Oil 1000 MG/ML Enema mineral oil enema 1 enema mineral oil enema 1 enema 01/05/2020 01:54:09 AM EST 1 {enema} Rectal active 1 enema, Rectal, Daily PRN, constipation, if unrelieved by dulcolax, Starting Sun01/05/20 at 0154, Post-op
hold for loose stools
[facility] Medication administered onsite Ondansetron 4 MG Disintegrating Oral Tab let ondansetron (ZOFRAN-ODT) disintegrating tablet 4 mg ondansetron (ZOFRAN-ODT) disintegrating tablet 4 mg 01/05/2020 01:54:09 AM EST 4 mg Oral active 4 mg, Oral, Every 4 hours PRN, nausea, vomiting, Starting Sun01/05/20 at 0154, Post-op [facility] Medication administered onsite ondansetron (ZOFRAN) injection 4 mg [id number] 01/05/2020 01:54:0 9 AM EST 4 mg Intravenous active 4 mg, In travenous, Every 4 hours PRN, nausea, vomiting, Starting Sun01/05/20 at 0154, Post-op
If unable to take PO
[facility] Medication administered onsite sodium chloride 0.9% (NS) infusion [id number] 01/05/2020 01:20:00 A M EST Intravenous completed at 100 mL/hr, Intravenous, Continuous, Starting Sun01/05/20 at 0120, For 12 hours [facility] Medication administered onsite normal saline flush 0.9 % injection 3 mL [id number] 01/05/2020 01:20:00 AM EST 3 mL Intravenous active 3 mL , Intravenous, Every 8 hours (scheduled), First dose on Sun01/05/20 at 0120
flush per protocol, D/C Main IV fluid if appropriate
[facility] Medication administered onsite Morphine Sulfate (PF) injection 4 mg [id number] 01/04/2020 10:20: 00 PM EST 4 mg Intravenous completed 4 mg, In travenous, Once, 01/04/20 at 2220, For 1 dose [facility] Medication administered onsite 10 mg 11/21/2019 12:00:00 [...] mpleted oxycodone hydrochloride 10 MG Oral Tablet [facility]) albuterol sulfate HFA 90 mcg/actuation a erosol inhaler INHALE 4 PUFFS EVERY 4 TO 6 HOURS NEEDED FOR WHEEZING [id number] [facility] [id number] 200 ACTUAT albuterol 0.09 MG/ACTUAT Metered Dose Inhaler [facility] ([facility]) methylprednisolone 4 mg tablets in a dos e pack TAKE BY MOUTH FOLLOWING PACKAGE INSTRUCTIONS [id number] completed me thylprednisolone 4 mg tablets in a dose pack [facility]) Methocarbamol 750 MG Oral Tablet methoca rbamol 750 mg tablet TAKE 2 TABLETS BY MOUTH TWICE A DAY NEEDED methocarbamol 750 mg tablet TAKE 2 TABLE TS BY MOUTH TWICE A DAY NEEDED completed methocarbamol 750 MG Oral Tablet [facility] ([facility]) Ondansetron 8 MG Disintegrating Oral Tab let ondansetron [address] ONE TABLET UNDER THE TONGUE THREE TIMES A DAY ondansetron [address] ONE TABLET UNDER THE TONGUE THREE TIMES A DAY completed ondansetron 8 MG Dis integrating Oral Tablet [facility] ([facility]) Haloperidol 2 MG Oral Tablet haloperidol 2 mg tablet TAKE TWO TABLETS BY MOUTH EVERY DAY haloperidol 2 mg tablet TAKE TWO TABLETS BY MOUTH EVERY DAY completed haloperidol 2 MG Oral Tablet [facility] ([facility]) Ketorolac Tromethamine 10 MG Oral Tablet ketorolac 10 mg tablet TAKE ONE TABLET BY MOUTH FOUR TIMES A DAY ketorolac 10 mg tablet TAKE ONE TABLET B Y MOUTH FOUR TIMES A DAY completed ketorolac tromethamine 10 MG Oral Tablet [facility] ([facility]) vitamin d3 25 mcg (1000 ut) tabs completed vitamin d3 25 mcg (1000 ut) tabs [facility] ([facility]) Baclofen 5 MG Oral Tablet baclofen 5 mg tablet baclofen 5 mg tablet completed baclofen 5 MG Oral Tablet [facility] ([facility]) Cyclobenzaprine hydrochloride 10 MG Oral Tablet cyclob enzaprine 10 mg tablet cyclobenzaprine 10 mg tablet completed cyclobenzaprine hydrochloride 10 MG Oral Tablet [facility] ([facility]) gabapentin 100 MG Oral Capsule gabapenti n 100 mg capsule TAKE ONE CAPSULE BY MOUTH THREE TIMES A DAY gabapentin 100 mg capsule TAKE ONE CAPSU LE BY MOUTH THREE TIMES A DAY completed prisca pentin 100 MG Oral Capsule [facility] ([facility]) Oxycodone Hydrochloride 5 MG Oral Tablet oxycodone 5 mg tablet TAKE 1/2 TABLET 2.5MG BY MOUTH EVERY 6 HOURS NEEDED MAXIMUM DAILY DOSE 2 TABLETS oxycodone 5 mg tablet TAKE 1/2 TABLET 2.5MG BY MOUTH EVERY 6 HOURS NEEDED MAXIMUM DAILY DOSE 2 TABLETS complet ed oxycodone hydrochloride 5 MG Oral Tablet [facility] ([facility]) Magnesium Hydroxide 80 MG/ML Oral Suspen maxim Milk of Magnesia 400 mg/5 mL oral suspension TAKE 30 MLS BY MOUTH ONCE DAILY NEEDED FOR CONSTIPATION Milk of Magnesia 400 mg/5 mL oral suspension TAKE 30 MLS BY MOUTH ONCE DAILY NEEDED FOR CONSTIPATION completed magnesium hydroxide 80 MG/ML Oral Suspension [facility] ([facility]) Methocarbamol 750 MG Oral Tablet methoca rbamol 750 mg tablet TAKE 2 TABLETS BY MOUTH TWICE A DAY NEEDED methocarbamol 750 mg tablet TAKE 2 TABLE TS BY MOUTH TWICE A DAY NEEDED completed methocarbamol 750 MG Oral Tablet [facility] ([facility]) tramadol hydrochloride 50 MG Oral Tablet tramadol 50 mg tablet TAKE ONE TABLET BY MOUTH TWICE A DAY MAXIMUM DAILY DOSE 2 TABLETS tramadol 50 mg tablet TAKE ONE TABLET BY MOUTH TWICE A DAY MAXIMUM DAILY DOSE 2 TABLETS completed tramadol hydrochloride 50 MG Ora l Tablet [facility] ([facility]) gabapentin 100 MG Oral Capsule gabapenti n 100 mg capsule TAKE ONE CAPSULE BY MOUTH THREE TIMES A DAY gabapentin 100 mg capsule TAKE ONE CAPSU LE BY MOUTH THREE TIMES A DAY completed prisca pentin 100 MG Oral Capsule [facility] ([facility]) Azithromycin 250 MG Oral Tablet azithrom ycin 250 mg tablet TAKE TWO TABLETS BY MOUTH AT ONCE ON THE FIRST DAY THEN TAKE ONE DAILY THEREAFTER azithromycin 250 mg tablet TAKE TWO TABLETS BY MOUTH AT ONCE ON THE FIRST DAY THEN TAKE ONE DAILY THEREAFTER completed azithromyci n 250 MG Oral Tablet [facility] ([facility]) Magnesium Hydroxide 80 MG/ML Oral Suspen maxim Milk of Magnesia 400 mg/5 mL oral suspension TAKE 30 MLS BY MOUTH ONCE DAILY NEEDED FOR CONSTIPATION Milk of Magnesia 400 mg/5 mL oral suspension TAKE 30 MLS BY MOUTH ONCE DAILY NEEDED FOR CONSTIPATION completed magnesium hydroxide 80 MG/ML Oral Suspension [facility] ([facility]) albuterol sulfate HFA 90 mcg/actuation a erosol inhaler INHALE 4 PUFFS EVERY 4 TO 6 HOURS NEEDED FOR WHEEZING [id number] comple [facility]akiya [id number] 200 ACTUAT albuterol 0.09 MG/ACTUAT Metered Dose Inhaler [facility]) Methocarbamol 500 MG Oral Tablet methoca rbamol 500 mg tablet TAKE ONE TABLET BY MOUTH THREE TIMES A DAY methocarbamol 500 mg tablet TAKE ONE TAB LET BY MOUTH THREE TIMES A DAY completed meth ocarbamol 500 MG Oral Tablet [facility]) Melatonin 5 MG Oral Tablet melatonin 5 m g tablet Take 1 tablet every day by oral route at bedtime. melatonin 5 mg tablet Take 1 tablet ever y day by oral route at bedtime. 1 completed melatonin 5 M G Oral Tablet [facility]) Ondansetron 8 MG Disintegrating Oral Tab let ondansetron [address] ONE TABLET UNDER THE TONGUE THREE TIMES A DAY ondansetron [address] ONE TABLET UNDER THE TONGUE THREE TIMES A DAY completed ondansetron 8 MG Dis integrating Oral Tablet [facility] ([facility]) Azithromycin 250 MG Oral Tablet azithrom ycin 250 mg tablet TAKE TWO TABLETS BY MOUTH AT ONCE ON THE FIRST DAY THEN TAKE ONE DAILY THEREAFTER azithromycin 250 mg tablet TAKE TWO TABLETS BY MOUTH AT ONCE ON THE FIRST DAY THEN TAKE ONE DAILY THEREAFTER completed azithromyci n 250 MG Oral Tablet [facility] ([facility]) Ondansetron 8 MG Disintegrating Oral Tab let ondansetron [address] ONE TABLET UNDER THE TONGUE THREE TIMES A DAY ondansetron [address] ONE TABLET UNDER THE TONGUE THREE TIMES A DAY completed ondansetron 8 MG Dis integrating Oral Tablet [facility] ([facility]) 24 HR venlafaxine 37.5 MG Extended Relea se Oral Capsule venlafaxine ER 37.5 mg capsule,extended release 24 hr TAKE ONE CAPSULE BY MOUTH EVERY MORNING venlafaxine ER 37.5 mg capsule,extended release 24 hr TAKE ONE CAPSULE BY MOUTH EVERY MORNING completed 24 HR venlafaxine 37.5 MG Extended Release Oral Capsule [facility] ([facility]) Ondansetron 8 MG Disintegrating Oral Tab let ondansetron [address] tablet [address] ONE TABLET UNDER THE TONGUE THREE TIMES A DAY ondansetron [address] ONE TABLET UNDER THE TONGUE THREE TIMES A DAY completed ondansetron 8 MG Dis integrating Oral Tablet [facility] ([facility]) Prednisone 50 MG Oral Tablet prednisone 50 mg tablet TAKE 12 TABLETS BY MOUTH TWO TIMES A DAY FOR 2 DAYS prednisone 50 mg tablet TAKE 12 TABLETS BY MOUTH TWO TIMES A DAY FOR 2 DAYS completed prednisone 50 MG Oral Tablet [facility]) Ketorolac Tromethamine 10 MG Oral Tablet ketorolac 10 mg tablet TAKE ONE TABLET BY MOUTH FOUR TIMES A DAY ketorolac 10 mg tablet TAKE ONE TABLET B Y MOUTH FOUR TIMES A DAY completed ketorolac tromethamine 10 MG Oral Tablet [facility] ([facility]) Clonazepam 0.5 MG Oral Tablet clonazepam 0.5 mg tablet TAKE ONE TABLET BY MOUTH EVERY DAY MAXIMUM DAILY DOSE 1 clonazepam 0.5 mg tablet TAKE ONE TABLET BY MOUTH EVERY DAY MAXIMUM DAILY DOSE 1 completed clonazepam 0.5 MG Oral Tablet [facility] ([facility]) Oxycodone Hydrochloride 10 MG Oral Table t oxycodone 10 mg tablet TAKE ONE TABLET BY MOUTH EVERY 12 HOURS NEEDED FOR POST OP PAIN MAXIMUM DAILY DOSE 2 oxycodone 10 mg tablet TAKE ONE TABLET BY MOUTH EVERY 12 HOURS NEEDED FOR POST OP PAIN MAXIMUM DAILY DOSE 2 co mpleted oxycodone hydrochloride 10 MG Oral Tablet [facility] ([facility]) Baclofen 10 MG Oral Tablet baclofen 10 m g tablet Take 1 tablet 3 times a day by oral route. baclofen 10 mg tablet Take 1 tablet 3 times a day by oral ro [place]. 1 completed baclofen 10 MG Oral Tablet [facility]) Baclofen 5 MG Oral Tablet baclofen 5 mg tablet baclofen 5 mg tablet completed baclofen 5 MG Oral Tablet [facility] ([facility]) 12 HR Oxycodone Hydrochloride 30 MG Exte nded Release Oral Tablet [Oxycontin] OxyContin 30 mg tablet,crush resistant,extended release TAKE ONE TABLET BY MOUTH EVERY DAY MAXIMUM DAILY DOSE 1 TABLET OxyContin 30 mg tablet,crush resistant,extended release TAKE ONE TABLET BY MOUTH EVERY DAY MAXIMUM DAILY DOSE 1 TABLET completed Ab use-Deterrent 12 HR oxycodone hydrochloride 30 MG Extended Release Oral Tablet [Oxycontin] [facility] ([facility]) Naproxen 500 MG Oral Tablet naproxen 500 mg tablet TAKE ONE TABLET BY MOUTH TWICE A DAY WITH FOOD naproxen 500 mg tablet TAKE ONE TABLET B Y MOUTH TWICE A DAY WITH FOOD completed naproxen 500 MG Oral Tablet [facility]) Nortriptyline 25 MG Oral Capsule nortrip tyline 25 mg capsule TAKE ONE CAPSULE BY MOUTH EVERY MORNING nortriptyline 25 mg capsule TAKE ONE CAP [place] BY MOUTH EVERY MORNING completed nortriptyline 25 MG Oral Capsule [facility] ([facility]) methylprednisolone 4 mg tablets in a dos e pack TAKE BY MOUTH FOLLOWING PACKAGE INSTRUCTIONS [id number] completed me thylprednisolone 4 mg tablets in a dose pack [facility] ([facility]) tramadol hydrochloride 50 MG Oral Tablet tramadol 50 mg tablet TAKE ONE TABLET BY MOUTH TWICE A DAY MAXIMUM DAILY DOSE 2 TABLETS tramadol 50 mg tablet TAKE ONE TABLET BY MOUTH TWICE A DAY MAXIMUM DAILY DOSE 2 TABLETS completed tramadol hydrochloride 50 MG Ora l Tablet [facility] ([facility]) oxycodone completed oxycodone [facility] ([facility]) Magnesium Hydroxide 80 MG/ML Oral Suspen maxim Milk of Magnesia 400 mg/5 mL oral suspension TAKE 30 MLS BY MOUTH ONCE DAILY NEEDED FOR CONSTIPATION Milk of Magnesia 400 mg/5 mL oral suspension TAKE 30 MLS BY MOUTH ONCE DAILY NEEDED FOR CONSTIPATION completed magnesium hydroxide 80 MG/ML Oral Suspension [facility] ([facility]) Baclofen 5 MG Oral Tablet baclofen 5 mg tablet baclofen 5 mg tablet completed baclofen 5 MG Oral Tablet [facility] ([facility]) Prednisone 50 MG Oral Tablet prednisone 50 mg tablet TAKE ONE TABLET BY MOUTH EVERY DAY WITH A MEAL prednisone 50 mg tablet TAKE ONE TABLET BY MOUTH EVERY DAY WITH A MEAL completed prednison e 50 MG Oral Tablet [facility] ([facility]) Docusate Sodium 50 MG / sennosides, RETIREMENT 8.6 MG Oral Tablet Stimulant Laxative Plus 8.6 mg-50 mg tablet TAKE 2 TABLETS BY MOUTH ONCE OR TWICE DAILY TO PREVENT CONSTIPATION Stimulant Laxative Plus 8.6 mg-50 mg tab let TAKE 2 TABLETS BY MOUTH ONCE OR TWICE DAILY TO PREVENT CONSTIPATION completed docusate sodium 50 MG / sennosides, RETIREMENT 8.6 MG Oral Tablet [facility]) methylprednisolone 4 mg tablets in a dos e pack TAKE BY MOUTH FOLLOWING PACKAGE INSTRUCTIONS [id number] completed me thylprednisolone 4 mg tablets in a dose pack [facility] ([facility]) 12 HR Oxycodone Hydrochloride [...] 30 MG Extended Release Oral Tablet [Oxycontin] [facility] ([facility]) Ketorolac Tromethamine 10 MG Oral Tablet ketorolac 10 mg tablet TAKE ONE TABLET BY MOUTH FOUR TIMES A DAY ketorolac 10 mg tablet TAKE ONE TABLET B Y MOUTH FOUR TIMES A DAY completed ketorolac tromethamine 10 MG Oral Tablet [facility]) Cyclobenzaprine hydrochloride 10 MG Oral Tablet [facility] enzaprine 10 mg tablet cyclobenzaprine 10 mg tablet completed cyclobenzaprine hydrochloride 10 MG Oral Tablet [facility] ([facility]) 24 HR venlafaxine 37.5 MG Extended Relea se Oral Capsule venlafaxine ER 37.5 mg capsule,extended release 24 hr venlafaxine ER 37.5 mg capsule,extended release 24 hr completed 24 HR v enlafaxine 37.5 MG Extended Release Oral Capsule [facility] ([facility]) oxycodone completed oxycodone [facility] ([facility]) Cyclobenzaprine hydrochloride 10 MG Oral Tablet [facility] enzaprine 10 mg tablet cyclobenzaprine 10 mg tablet completed cyclobenzaprine hydrochloride 10 MG Oral Tablet [facility] ([facility]) Oxycodone Hydrochloride 5 MG Oral Tablet oxycodone 5 mg tablet TAKE 1/2 TABLET 2.5MG BY MOUTH EVERY 6 HOURS NEEDED MAXIMUM DAILY DOSE 2 TABLETS oxycodone 5 mg tablet TAKE 1/2 TABLET 2.5MG BY MOUTH EVERY 6 HOURS NEEDED MAXIMUM DAILY DOSE 2 TABLETS comple zakiya oxycodone hydrochloride 5 MG Oral Tablet [facility] ([facility]) Cyclobenzaprine hydrochloride 10 MG Oral Tablet [facility] enzaprine 10 mg tablet cyclobenzaprine 10 mg tablet completed cyclobenzaprine hydrochloride 10 MG Oral Tablet [facility] ([facility]) Oxycodone Hydrochloride 10 MG Oral Table t oxycodone 10 mg tablet TAKE ONE TABLET BY MOUTH EVERY 12 HOURS NEEDED FOR POST OP PAIN MAXIMUM DAILY DOSE 2 oxycodone 10 mg tablet TAKE ONE TABLET BY MOUTH EVERY 12 HOURS NEEDED FOR POST OP PAIN MAXIMUM DAILY DOSE 2 co mpleted oxycodone hydrochloride 10 MG Oral Tablet [facility] ([facility]) Methocarbamol 500 MG Oral Tablet methoca rbamol 500 mg tablet TAKE ONE TABLET BY MOUTH THREE TIMES A DAY methocarbamol 500 mg tablet TAKE ONE TAB LET BY MOUTH THREE TIMES A DAY completed meth ocarbamol 500 MG Oral Tablet [facility] ([facility]) Naproxen 500 MG Oral Tablet naproxen 500 mg tablet TAKE ONE TABLET BY MOUTH TWICE A DAY WITH FOOD naproxen 500 mg tablet TAKE ONE TABLET B Y MOUTH TWICE A DAY WITH FOOD completed naproxen 500 MG Oral Tablet [facility] ([facility]) oxycodone completed oxycodone [facility]) Oxycodone Hydrochloride 5 MG Oral Tablet oxycodone 5 mg tablet TAKE 1/2 TABLET 2.5MG BY MOUTH EVERY 6 HOURS NEEDED MAXIMUM DAILY DOSE 2 TABLETS oxycodone 5 mg tablet TAKE 1/2 TABLET 2.5MG BY MOUTH EVERY 6 HOURS NEEDED MAXIMUM DAILY DOSE 2 TABLETS comple [facility]ya oxycodone hydrochloride 5 MG Oral Tablet [facility] ([facility]) Cyclobenzaprine hydrochloride 10 MG Oral Tablet cyclob enzaprine 10 mg tablet cyclobenzaprine 10 mg tablet completed cyclobenzaprine hydrochloride 10 MG Oral Tablet [facility]) 24 HR Nicotine 0.875 MG/HR Transdermal P atch nicotine 21 mg/24 hr daily transdermal patch nicotine 21 mg/24 hr daily transdermal patch completed 24 HR nicotine 0.875 MG/HR Trans dermal System [facility]) Nortriptyline 10 MG Oral Capsule nortrip tyline 10 mg capsule Take 1 capsule every day by oral route at bedtime. nortriptyline 10 mg capsule Take 1 capsu le every day by oral route at bedtime. 1 capsule(s) completed nortriptyline 10 MG Oral Capsule [facility] ([facility]) Magnesium Hydroxide 80 MG/ML Oral Suspen maxim Milk of Magnesia 400 mg/5 mL oral suspension TAKE 30 MLS BY MOUTH ONCE DAILY NEEDED FOR CONSTIPATION Milk of Magnesia 400 mg/5 mL oral suspension TAKE 30 MLS BY MOUTH ONCE DAILY NEEDED FOR CONSTIPATION completed magnesium hydroxide 80 MG/ML Oral Suspension [facility] ([facility]) 12 HR Oxycodone Hydrochloride [...] 30 MG Extended Release Oral Tablet [Oxycontin] [facility] ([facility]) Amlodipine 10 MG Oral Tablet amlodipine 10 mg tablet TAKE ONE TABLET BY MOUTH EVERY DAY amlodipine 10 mg tablet TAKE ONE TABLET BY MOUTH EVERY DAY completed amlodipine 10 MG Oral Tablet [facility]) albuterol sulfate HFA 90 mcg/actuation a erosol inhaler INHALE 4 PUFFS EVERY 4 TO 6 HOURS NEEDED FOR WHEEZING [id number] compl eted [id number] ACTUAT albuterol 0.09 MG/ACTUAT Metered Dose Inhaler [facility] gabapentin 100 MG Oral Capsule gabapenti n 100 mg capsule TAKE ONE CAPSULE BY MOUTH THREE TIMES A DAY gabapentin 100 mg capsule TAKE ONE CAPSU LE BY MOUTH THREE TIMES A DAY completed prisca pentin 100 MG Oral Capsule [facility]) Methocarbamol 500 MG Oral Tablet methoca rbamol 500 mg tablet TAKE ONE TABLET BY MOUTH THREE TIMES A DAY methocarbamol 500 mg tablet TAKE ONE TAB LET BY MOUTH THREE TIMES A DAY completed meth ocarbamol 500 MG Oral Tablet [facility] tramadol hydrochloride 50 MG Oral Tablet tramadol 50 mg tablet TAKE ONE TABLET BY MOUTH TWICE A DAY MAXIMUM DAILY DOSE 2 TABLETS tramadol 50 mg tablet TAKE ONE TABLET BY MOUTH TWICE A DAY MAXIMUM DAILY DOSE 2 TABLETS completed tramadol hydrochloride 50 MG Ora l Tablet [facility] Ketorolac Tromethamine 10 MG Oral Tablet ketorolac 10 mg tablet TAKE ONE TABLET BY MOUTH FOUR TIMES A DAY ketorolac 10 mg tablet TAKE ONE TABLET B Y MOUTH FOUR TIMES A DAY completed ketorolac tromethamine 10 MG Oral Tablet [facility]) 24 HR venlafaxine 37.5 MG Extended Relea se Oral Capsule venlafaxine ER 37.5 mg capsule,extended release 24 hr TAKE ONE CAPSULE BY MOUTH EVERY MORNING venlafaxine ER 37.5 mg capsule,extended release 24 hr TAKE ONE CAPSULE BY MOUTH EVERY MORNING completed 24 HR venlafaxine 37.5 MG Extended Release Oral Capsule [facility]) tramadol hydrochloride 50 MG Oral Tablet tramadol 50 mg tablet TAKE ONE TABLET BY MOUTH TWICE A DAY MAXIMUM DAILY DOSE 2 TABLETS tramadol 50 mg tablet TAKE ONE TABLET BY MOUTH TWICE A DAY MAXIMUM DAILY DOSE 2 TABLETS completed tramadol hydrochloride 50 MG Ora l Tablet [facility]) Oxycodone Hydrochloride 5 MG Oral Tablet oxycodone 5 mg tablet TAKE 1/2 TABLET 2.5MG BY MOUTH EVERY 6 HOURS NEEDED MAXIMUM DAILY DOSE 2 TABLETS oxycodone 5 mg tablet TAKE 1/2 TABLET 2.5MG BY MOUTH EVERY 6 HOURS NEEDED MAXIMUM DAILY DOSE 2 TABLETS comple zakiya oxycodone hydrochloride 5 MG Oral Tablet [facility]) 12 HR Oxycodone Hydrochloride 60 MG Exte [...] 60 MG Extended Release Oral Tablet [Oxycontin] [facility]) Oxycodone Hydrochloride 5 MG Oral Tablet oxycodone 5 mg tablet TAKE 1/2 TABLET 2.5MG BY MOUTH EVERY 6 HOURS NEEDED MAXIMUM DAILY DOSE 2 TABLETS oxycodone 5 mg tablet TAKE 1/2 TABLET 2.5MG BY MOUTH EVERY 6 HOURS NEEDED MAXIMUM DAILY DOSE 2 TABLETS comple zakiya oxycodone hydrochloride 5 MG Oral Tablet [facility]) Ondansetron 8 MG Disintegrating Oral Tab let ondansetron [address] ONE TABLET UNDER THE TONGUE THREE TIMES A DAY ondansetron [address] ONE TABLET UNDER THE TONGUE THREE TIMES A DAY completed ondansetron 8 MG Dis integrating Oral Tablet [facility] Prednisone 50 MG Oral Tablet prednisone 50 mg tablet TAKE ONE TABLET BY MOUTH EVERY DAY WITH A MEAL prednisone 50 mg tablet TAKE ONE TABLET BY MOUTH EVERY DAY WITH A MEAL completed prednison e 50 MG Oral Tablet [facility]) 12 HR Oxycodone Hydrochloride 60 MG Exte [...] 60 MG Extended Release Oral Tablet [Oxycontin] [facility]) 12 HR Oxycodone Hydrochloride 30 MG Exte nded Release Oral Tablet [Oxycontin] OxyContin 30 mg tablet,crush resistant,extended release TAKE ONE TABLET BY MOUTH EVERY DAY MAXIMUM DAILY DOSE 1 TABLET OxyContin 30 mg tablet,crush resistant,extended release TAKE ONE TABLET BY MOUTH EVERY DAY MAXIMUM DAILY DOSE 1 TABLET completed Ab use-Deterrent 12 HR oxycodone hydrochloride 30 MG Extended Release Oral Tablet [Oxycontin] [facility]) Methocarbamol 500 MG Oral Tablet methoca rbamol 500 mg tablet TAKE ONE TABLET BY MOUTH THREE TIMES A DAY methocarbamol 500 mg tablet TAKE ONE TAB LET BY MOUTH THREE TIMES A DAY completed meth ocarbamol 500 MG Oral Tablet [facility] Ketorolac Tromethamine 10 MG Oral Tablet ketorolac 10 mg tablet TAKE ONE TABLET BY MOUTH FOUR TIMES A DAY ketorolac 10 mg tablet TAKE ONE TABLET B Y MOUTH FOUR TIMES A DAY completed ketorolac tromethamine 10 MG Oral Tablet [facility]) Methocarbamol 750 MG Oral Tablet methoca rbamol 750 mg tablet TAKE 2 TABLETS BY MOUTH TWICE A DAY NEEDED methocarbamol 750 mg tablet TAKE 2 TABLE TS BY MOUTH TWICE A DAY NEEDED completed methocarbamol 750 MG Oral Tablet [facility]) Naproxen 500 MG Oral Tablet naproxen 500 mg tablet TAKE ONE TABLET BY MOUTH TWICE A DAY WITH FOOD naproxen 500 mg tablet TAKE ONE TABLET B Y MOUTH TWICE A DAY WITH FOOD completed naproxen 500 MG Oral Tablet [facility] oxycodone completed oxycodone [facility] Oxycodone Hydrochloride 10 MG Oral Table t oxycodone 10 mg tablet TAKE ONE TABLET BY MOUTH EVERY 12 HOURS NEEDED FOR POST OP PAIN MAXIMUM DAILY DOSE 2 oxycodone 10 mg tablet TAKE ONE TABLET BY MOUTH EVERY 12 HOURS NEEDED FOR POST OP PAIN MAXIMUM DAILY DOSE 2 co mpleted oxycodone hydrochloride 10 MG Oral Tablet [facility]) oxycodone completed oxycodone [facility] Naproxen 500 MG Oral Tablet naproxen 500 mg tablet TAKE ONE TABLET BY MOUTH TWICE A DAY WITH FOOD naproxen 500 mg tablet TAKE ONE TABLET B Y MOUTH TWICE A DAY WITH FOOD completed naproxen 500 MG Oral Tablet [facility]) Naproxen 500 MG Oral Tablet naproxen 500 mg tablet TAKE ONE TABLET BY MOUTH TWICE A DAY WITH FOOD naproxen 500 mg tablet TAKE ONE TABLET B Y MOUTH TWICE A DAY WITH FOOD completed naproxen 500 MG Oral Tablet [facility] Azithromycin 250 MG Oral Tablet azithrom ycin 250 mg tablet TAKE TWO TABLETS BY MOUTH AT ONCE ON THE FIRST DAY THEN TAKE ONE DAILY THEREAFTER azithromycin 250 mg tablet TAKE TWO TABLETS BY MOUTH AT ONCE ON THE FIRST DAY THEN TAKE ONE DAILY THEREAFTER completed azithromyc in 250 MG Oral Tablet [facility]) Methocarbamol 500 MG Oral Tablet methoca rbamol 500 mg tablet TAKE ONE TABLET BY MOUTH THREE TIMES A DAY methocarbamol 500 mg tablet TAKE ONE TAB LET BY MOUTH THREE TIMES A DAY completed meth ocarbamol 500 MG Oral Tablet [facility]) 12 HR Oxycodone Hydrochloride 60 MG [...] 60 MG Extended Release Oral Tablet [Oxycontin] [facility]) oxycodone completed oxycodone [facility]) 12 HR Oxycodone Hydrochloride 30 MG Exte nded Release Oral Tablet [Oxycontin] OxyContin 30 mg tablet,crush resistant,extended release TAKE ONE TABLET BY MOUTH EVERY DAY MAXIMUM DAILY DOSE 1 TABLET OxyContin 30 mg tablet,crush resistant,extended release TAKE ONE TABLET BY MOUTH EVERY DAY MAXIMUM DAILY DOSE 1 TABLET completed Ab use-Deterrent 12 HR oxycodone hydrochloride 30 MG Extended Release Oral Tablet [Oxycontin] [facility] albuterol sulfate HFA 90 mcg/actuation a erosol inhaler INHALE 4 PUFFS EVERY 4 TO 6 HOURS NEEDED FOR WHEEZING [id number] compl eted [id number] 200 ACTUAT albuterol 0.09 MG/ACTUAT Metered Dose Inhaler [facility]) Magnesium Hydroxide 80 MG/ML Oral Suspen maxim Milk of Magnesia 400 mg/5 mL oral suspension TAKE 30 MLS BY MOUTH ONCE DAILY NEEDED FOR CONSTIPATION Milk of Magnesia 400 mg/5 mL oral suspension TAKE 30 MLS BY MOUTH ONCE DAILY NEEDED FOR CONSTIPATION completed magnesium hydroxide 80 MG/ML Oral Suspension [facility]) pantoprazole 40 MG Delayed Release Oral Tablet pantoprazole 40 mg tablet,delayed release Take 1 tablet every day by oral route. pantoprazole 40 mg tablet,delayed release Take 1 tablet every day by oral route. 1 completed pantoprazole 40 MG Delayed Relea se Oral Tablet [facility] ([facility]) albuterol sulfate HFA 90 mcg/actuation a erosol inhaler INHALE 4 PUFFS EVERY 4 TO 6 HOURS NEEDED FOR WHEEZING [id number] compl eted [id number] 200 ACTUAT albuterol 0.09 MG/ACTUAT Metered Dose Inhaler [facility]) Azithromycin 250 MG Oral Tablet azithrom ycin 250 mg tablet TAKE TWO TABLETS BY MOUTH AT ONCE ON THE FIRST DAY THEN TAKE ONE DAILY THEREAFTER azithromycin 250 mg tablet TAKE TWO TABLETS BY MOUTH AT ONCE ON THE FIRST DAY THEN TAKE ONE DAILY THEREAFTER completed azithromyc in 250 MG Oral Tablet [facility]) Methocarbamol 500 MG Oral Tablet methoca rbamol 500 mg tablet TAKE ONE TABLET BY MOUTH THREE TIMES A DAY methocarbamol 500 mg tablet TAKE ONE TAB LET BY MOUTH THREE TIMES A DAY completed meth ocarbamol 500 MG Oral Tablet [facility] ([facility]) gabapentin 100 MG Oral Capsule gabapenti n 100 mg capsule TAKE ONE CAPSULE BY MOUTH THREE TIMES A DAY gabapentin 100 mg capsule TAKE ONE CAPSU LE BY MOUTH THREE TIMES A DAY completed prisca pentin 100 MG Oral Capsule [facility]) gabapentin 100 MG Oral Capsule gabapenti n 100 mg capsule TAKE ONE CAPSULE BY MOUTH THREE TIMES A DAY gabapentin 100 mg capsule TAKE ONE CAPSU LE BY MOUTH THREE TIMES A DAY completed prisca pentin 100 MG Oral Capsule [facility]) Azithromycin 250 MG Oral Tablet azithrom ycin 250 mg tablet TAKE TWO TABLETS BY MOUTH AT ONCE ON THE FIRST DAY THEN TAKE ONE DAILY THEREAFTER azithromycin 250 mg tablet TAKE TWO TABLETS BY MOUTH AT ONCE ON THE FIRST DAY THEN TAKE ONE DAILY THEREAFTER completed azithromyc in 250 MG Oral Tablet [facility]) Acetaminophen 500 MG Oral Tablet acetaminophen 500 mg tablet acetaminophen 500 mg tablet completed acetaminophe n 500 MG Oral Tablet [facility]) Magnesium Hydroxide 80 MG/ML Oral Suspen maxim Milk of Magnesia 400 mg/5 mL oral suspension TAKE 30 MLS BY MOUTH ONCE DAILY NEEDED FOR CONSTIPATION Milk of Magnesia 400 mg/5 mL oral suspension TAKE 30 MLS BY MOUTH ONCE DAILY NEEDED FOR CONSTIPATION completed magnesium hydroxide 80 MG/ML [facility] methylprednisolone 4 mg tablets in a dos e pack TAKE BY MOUTH FOLLOWING PACKAGE INSTRUCTIONS [id number] completed me thylprednisolone 4 mg tablets in a dose pack [facility]) Cyclobenzaprine hydrochloride 10 MG Oral Tablet cyclob enzaprine 10 mg tablet cyclobenzaprine 10 mg tablet completed cyclobenzaprine hydrochloride 10 MG Oral Tablet [facility]) 12 HR Oxycodone Hydrochloride [...] 60 MG Extended Release Oral Tablet [Oxycontin] [facility]) Docusate Sodium 100 MG Oral Capsule [DOK] DOK 100 mg capsule DOK 100 mg capsule completed docusate sodiu m 100 MG Oral Capsule [DOK] [facility]) Oxycodone Hydrochloride 10 MG Oral Table t oxycodone 10 mg tablet TAKE ONE TABLET BY MOUTH EVERY 12 HOURS NEEDED FOR POST OP PAIN MAXIMUM DAILY DOSE 2 oxycodone 10 mg tablet TAKE ONE TABLET BY MOUTH EVERY 12 HOURS NEEDED FOR POST OP PAIN MAXIMUM DAILY DOSE 2 co mpleted oxycodone hydrochloride 10 MG Oral Tablet [facility]) Baclofen 5 MG Oral Tablet baclofen (LIORESAL) 5 MG tab let baclofen (LIORESAL) 5 MG tablet 5 mg Oral aborted Take 5 mg by m outh Three times daily [facility] Ketorolac Tromethamine 10 MG Oral Tablet ketorolac 10 mg tablet TAKE ONE TABLET BY MOUTH FOUR TIMES A DAY ketorolac 10 mg tablet TAKE ONE TABLET B Y MOUTH FOUR TIMES A DAY completed ketorolac tromethamine 10 MG Oral Tablet [facility]) Ondansetron 4 MG Oral Tablet ondansetron HCl 4 mg tabl et ondansetron HCl 4 mg tablet completed ondansetron 4 M G Oral Tablet [facility]) Ondansetron 8 MG Disintegrating Oral Tab let ondansetron [address] ONE TABLET UNDER THE TONGUE THREE TIMES A DAY ondansetron [address] ONE TABLET UNDER THE TONGUE THREE TIMES A DAY completed ondansetron 8 MG Dis integrating Oral Tablet [facility]) Methocarbamol 750 MG Oral Tablet methoca rbamol 750 mg tablet TAKE 2 TABLETS BY MOUTH TWICE A DAY NEEDED methocarbamol 750 mg tablet TAKE 2 TABLE TS BY MOUTH TWICE A DAY NEEDED completed methocarbamol 750 MG Oral Tablet [facility]) 12 HR Oxycodone Hydrochloride 60 MG Exte [...] 60 MG Extended Release Oral Tablet [Oxycontin] [facility]) Azithromycin 250 MG Oral Tablet azithrom ycin 250 mg tablet TAKE TWO TABLETS BY MOUTH AT ONCE ON THE FIRST DAY THEN TAKE ONE DAILY THEREAFTER azithromycin 250 mg tablet TAKE TWO TABLETS BY MOUTH AT ONCE ON THE FIRST DAY THEN TAKE ONE DAILY THEREAFTER completed azithromyc in 250 MG Oral Tablet [facility]) 12 HR Oxycodone Hydrochloride 30 MG Exte nded Release Oral Tablet [Oxycontin] OxyContin 30 mg tablet,crush resistant,extended release TAKE ONE TABLET BY MOUTH EVERY DAY MAXIMUM DAILY DOSE 1 TABLET OxyContin 30 mg tablet,crush resistant,extended release TAKE ONE TABLET BY MOUTH EVERY DAY MAXIMUM DAILY DOSE 1 TABLET completed Ab use-Deterrent 12 HR oxycodone hydrochloride 30 MG Extended Release Oral Tablet [Oxycontin] [facility]) Nortriptyline 50 MG Oral Capsule nortrip tyline 50 mg capsule TAKE ONE CAPSULE BY MOUTH EVERY MORNING nortriptyline 50 mg capsule TAKE ONE CAP CHRISTINA BY MOUTH EVERY MORNING completed nortriptyline 50 MG Oral Capsule [facility]) 12 HR Oxycodone Hydrochloride 60 MG [...] 60 MG Extended Release Oral Tablet [Oxycontin] [facility]) Cholecalciferol 1000 UNT Oral Capsule ch olecalciferol (vitamin D3) 25 mcg (1,000 unit) capsule Take 1 capsule every day by oral route. cholecalciferol (vitamin D3) 25 mcg (1,000 unit) capsule Take 1 capsule every day by oral route. 1 capsule(s) completed cholecalciferol 0.0 25 MG Oral Capsule [facility]) tramadol hydrochloride 50 MG Oral Tablet tramadol 50 mg tablet TAKE ONE TABLET BY MOUTH TWICE A DAY MAXIMUM DAILY DOSE 2 TABLETS tramadol 50 mg tablet TAKE ONE TABLET BY MOUTH TWICE A DAY MAXIMUM DAILY DOSE 2 TABLETS completed tramadol hydrochloride 50 MG Ora l Tablet [facility]) gabapentin 100 MG Oral Capsule gabapenti n 100 mg capsule TAKE ONE CAPSULE BY MOUTH THREE TIMES A DAY gabapentin 100 mg capsule TAKE ONE CAPSU LE BY MOUTH THREE TIMES A DAY completed prisca pentin 100 MG Oral Capsule [facility]) methylprednisolone 4 mg tablets in a dos e pack TAKE BY MOUTH FOLLOWING PACKAGE INSTRUCTIONS [id number] completed me thylprednisolone 4 mg tablets in a dose pack [facility]) Baclofen 5 MG Oral Tablet baclofen 5 mg tablet baclofen 5 mg tablet completed baclofen 5 MG Oral Tablet [facility] Naproxen 500 MG Oral Tablet naproxen 500 mg tablet TAKE ONE TABLET BY MOUTH TWICE A DAY WITH FOOD naproxen 500 mg tablet TAKE ONE TABLET B Y MOUTH TWICE A DAY WITH FOOD completed naproxen 500 MG Oral Tablet [facility]) Oxycodone Hydrochloride 10 MG Oral Table t oxycodone 10 mg tablet TAKE ONE TABLET BY MOUTH EVERY 12 HOURS NEEDED FOR POST OP PAIN MAXIMUM DAILY DOSE 2 oxycodone 10 mg tablet TAKE ONE TABLET BY MOUTH EVERY 12 HOURS NEEDED FOR POST OP PAIN MAXIMUM DAILY DOSE 2 co mpleted oxycodone hydrochloride 10 MG Oral Tablet [facility]) Insurance Providers Payer name Policy type / Coverage type Policy ID Covered democrat ID Covered democrat's relationship to rowell Policy [place]ell Plan Information MEDICAID M [id number] Self [id number] Medicaid S [id number] S [id number] [employer] COMMUNITY PLAN MCDHMO [id number] SP [id number] Managed Care - Community Plan [facility] P [id number] S [id number] [facility] Comm Plan Medicaid F [id number] SELF [id number] [facility] Comm Plan Medicaid F [id number] SELF [id number] Managed Care - Community Plan [employer] P [id number] S [id number] [facility] Comm Plan Medicaid F [id number] SELF [id number] Medicaid S [id number] S [id number] Managed Care - [facility] Community Plan P [id number] S [id number] Managed Care - Community Plan [facility] P [id number] S [id number] [facility] MEDICAID [id number] [phone] [id number] [facility] MEDICAID [id number] Sigrid [id number] MEDICAID [id number] Sigrid [id number] INSURANCE COVID-19 [id number] INSURANCE COVID-19 COVID Sigrid C OVID [facility] I [id number] Self [id number] [employer] COMMUNITY PLAN MCDHMO [id number] SP [id number] MEDICAID -PHYSICIAN [id number] MEDICAID M [id number] S [id number] [facility] ALONDRA [id number] SP [id number] Medicaid P [id number] S [id number] [employer] COMMUNITY PLAN MCDHMO [id number] SP [id number] [facility] ALONDRA [id number] SP [id number] [employer]HC COMMUNITY PLAN XIX [id number] 18 [id number] [employer] COMMUNITY PLAN MCDHMO [id number] SP [id number] [facility]CA[facility]) O [id number] S [id number] [facility] [place] [id number] 18 [id number] [facility] COMMUNTY PLAN [id number] ANSI-Medicaid [id number] MEDICAID [id number] SP [id number] ANSI-Medicaid [id number] Managed Care - Community Plan [facility] P [id number] S [id number] MEDICAID [id number] SP [id number] MEDICAID -O/P EMERGENCY ROOM [id number] UMR -O/P UNAVAILABLE UNAVAILABLE [facility] [place] [facility] [id number] Self [id number] [facility] Maintenance Organization [place] [place] [id number] Self [id number] Problems, Conditions, and Diagnoses Code Display Name Description Problem Type Effective Dates Data Source(s) M48.00 Spinal stenosis, site unspecified Spinal stenosi s, site unspecified Diagnosis 04/28/2020 07:12:15 AM EDT [facility] [id number] CONTACT WITH AND SUSPECTED EXPOSURE TO C OVID-19 CONTACT WITH AND SUSPECTED EXPOSURE TO COVID-19 Diagnosis 04/19/2020 08:39:00 PM EDT [facility] [id number] Dysarthria following unspecified cerebro vascular disease Dysarthria following unspecified cerebrovascular disease Diagnosis 04/20/19 08:39:00 PM EDT [facility] R456 Violent behavior Violent behavior Diagnosis 04/19/2020 08 :39:00 PM EDT [facility] [id number] Cannabis abuse with cannabis-induced anx iety disorder Cannabis abuse with cannabis-induced anxiety disorder Diagnosis 04/19/2020 08:39:00 PM ED T [facility] R000 Tachycardia, unspecified Tachycardia, unspecified Diag nosis 04/19/2020 08:39:00 PM EDT [facility] G8929 Other chronic pain Other chronic pain Diagnosis 08:39:00 PM EDT [facility] F411 Generalized anxiety disorder Generalized anxiety disor fausto Diagnosis 04/19/2020 08:39:00 PM EDT [facility] D16848 Nicotine dependence, cigarettes, uncompl icated Nicotine dependence, cigarettes, uncomplicated Diagnosis 04/19/2020 08:39:00 PM EDT [facility] I10 Essential (primary) hypertension Essential (primary) h ypertension Diagnosis 04/19/2020 08:39:00 PM EDT [facility] K38383 Cannabis abuse with intoxication, unspec ified Cannabis abuse with intoxication, unspecified Diagnosis 04/19/2020 08:39:00 PM EDT [facility] R531 Weakness Weakness Diagnosis 04/19/2020 08:39:00 PM ED T [facility] B10897 Pain in left leg Pain in left leg Diagnosis 04/16/2020 02 :27:00 PM [facility] I63.9 Cerebral infarction, unspecified Cerebral infarc tion, unspecified Diagnosis 04/09/2020 05:29:00 PM [facility] stroke stroke Diagnosis 04/09/2020 05:29:00 PM [facility] [id number] Personal history of nicotine dependence Personal history [...] H532 Diplopia Diplopia Diagnosis 03/29/2020 11:40:00 AM [facility] R42 Dizziness and giddiness Dizziness and giddiness Diagno sis 03/29/2020 11:40:00 AM [facility] M54.31 Sciatica, right side Sciatica, right side Diagnosis 01/04/2020 09:22:55 PM [facility] M43.17 Spondylolisthesis, lumbosacral region Sp ondylolisthesis, lumbosacral region Diagnosis 01/04/2020 09:22:55 PM [facility] M6281 Muscle weakness (generalized) Muscle weakness (general ized) Diagnosis 01/04/2020 04:23:00 PM [facility] M545 Low back pain Low back pain Diagnosis 01/04/2020 04:23:00 PM [facility] [id number] Severe bipolar disorder with psychotic f eatures Severe Bipolar Disorder with Psychotic Features Problem 06/16/2020 12:00:00 AM EDT [facility] ([facility]) [id number] Severe bipolar disorder with psychotic f eatures Severe Bipolar Disorder with Psychotic Features Problem 06/16/2020 12:00:00 AM EDT [facility] ([facility]) [id number] Gastroesophageal reflux disease Gastroesophageal Reflux Disease Problem 04/13/2020 12:00:00 AM EST [facility] ([facility]) [id number] Chronic obstructive lung disease Chronic Obstruc tive Lung Disease Problem 04/13/2020 12:00:00 AM EST [facility] ([facility]) [id number] Asthma Asthma Problem 04/13/2020 12:00:00 AM ES T [facility] ([facility]) [id number] Gastroesophageal reflux disease Gastroesophageal Reflux Disease Problem 04/13/2020 12:00:00 AM EST [facility] ([facility]) [id number] Chronic obstructive lung disease Chronic Obstruc tive Lung Disease Problem 04/13/2020 12:00:00 AM EST [facility] ([facility]) [id number] Asthma Asthma Problem 04/13/2020 12:00:00 AM ES T [facility] ([facility]) [id number] Gastroesophageal reflux disease Gastroesophageal Reflux Disease Problem 04/13/2020 12:00:00 AM EST [facility] ([facility]) [id number] Chronic obstructive lung disease Chronic Obstruc tive Lung Disease Problem 04/13/2020 12:00:00 AM EST [facility] ([facility]) [id number] Asthma Asthma Problem 04/13/2020 12:00:00 AM ES T [facility] ([facility]) [id number] Gastroesophageal reflux disease Gastroesophageal Reflux Disease Problem 04/13/2020 12:00:00 AM EST [facility] ([facility]) [id number] Chronic obstructive lung disease Chronic Obstruc tive Lung Disease Problem 04/13/2020 12:00:00 AM EST [facility] ([facility]) [id number] Asthma Asthma Problem 04/13/2020 12:00:00 AM ES T [facility] ([facility]) [id number] Relapsing remitting multiple sclerosis R elapsing Remitting Multiple Sclerosis Problem 04/09/2020 12:00:00 AM [facility] ([facility]) [id number] Relapsing remitting multiple sclerosis R elapsing Remitting Multiple Sclerosis Problem 04/09/2020 12:00:00 AM EST [facility] ([facility]) [id number] Relapsing remitting multiple sclerosis R elapsing Remitting Multiple Sclerosis Problem 04/09/2020 12:00:00 AM EST [facility] ([facility]) [id number] Relapsing remitting multiple sclerosis R elapsing Remitting Multiple Sclerosis Problem 04/09/2020 12:00:00 AM EST [facility] ([facility]) [id number] Postoperative pain Postoperative Pain Problem 05/2019 12:00:00 AM EST [facility] ([facility]) [id number] Postoperative pain Postoperative Pain Problem 05/2019 12:00:00 AM EST [facility] ([facility]) [id number] Postoperative pain Postoperative Pain Problem 05/2019 12:00:00 AM EST [facility] ([facility]) [id number] Postoperative pain Postoperative Pain Problem 05/2019 12:00:00 AM EST [facility] ([facility]) [id number] Postoperative pain Postoperative Pain Problem 05/2019 12:00:00 AM EST [facility] ([facility]) [id number] Postoperative pain Postoperative Pain Problem 05/2019 12:00:00 AM EST [facility] ([facility]) G89.18 Post-op pain Post-op pain [id number] 01/05/2020 12:00:00 A M EST [facility] Z63.4 Disappearance and of family member UNCOMPLICATED BEREAVEMENT 11/05/2019 09:00:34 AM EDT [facility] Z65.1 Imprisonment and other incarceration IMPRISONMEN T OR OTHER INCARCERATION 11/05/2019 09:00:34 AM EDT [facility] F43.8 Other reactions to severe stress TRAUMA- AND STRESSOR-RELATED DISORDER, OTHER SPECIFIED 11/05/2019 09:00:34 AM EDT [facility] 300.01 PANIC DISORDER PANIC DISORDER 11/05/2019 09:00: 34 AM EDT [facility] [id number] Panic disorder Panic Disorder Problem 11/05/2019 12:00: 00 AM EDT [facility]) [id number] Bereavement Bereavement Problem 11/05/2019 12:00:00 AM EDT [facility]) [id number] Imprisonment Imprisonment Problem 11/05/2019 12:00:00 A M EDT [facility]) [id number] Stress and adjustment reaction Stress and Adjustment R eaction Problem 11/05/2019 12:00:00 AM EDT [facility]) [id number] Clinical finding Clinical Finding Problem 11/05/2019 12 :00:00 AM EDT [facility]) [id number] Panic disorder Panic Disorder Problem 11/05/2019 12:00: 00 AM EDT [facility]) [id number] Bereavement Bereavement Problem 11/05/2019 12:00:00 AM EDT [facility]) [id number] Imprisonment Imprisonment Problem 11/05/2019 12:00:00 A M EDT [facility]) [id number] Clinical finding Clinical Finding Problem 11/05/2019 12 :00:00 AM EDT [facility]) [id number] Panic disorder Panic Disorder Problem 11/05/2019 12:00: 00 AM EDT [facility]) [id number] Bereavement Bereavement Problem 11/05/2019 12:00:00 AM EDT [facility]) [id number] Imprisonment Imprisonment Problem 11/05/2019 12:00:00 A M EDT [facility]) [id number] Clinical finding Clinical Finding Problem 11/05/2019 12 :00:00 AM EDT [facility]) [id number] Panic disorder Panic Disorder Problem 11/05/2019 12:00: 00 AM EDT [facility]) [id number] Bereavement Bereavement Problem 11/05/2019 12:00:00 AM EDT [facility]) [id number] Imprisonment Imprisonment Problem 11/05/2019 12:00:00 A M EDT [facility]) [id number] Panic disorder Panic Disorder Problem 11/05/2019 12:00: 00 AM EDT [facility]) [id number] Bereavement Bereavement Problem 11/05/2019 12:00:00 AM EDT [facility]) [id number] Imprisonment Imprisonment Problem 11/05/2019 12:00:00 A M EDT [facility]) [id number] Stress and adjustment reaction Stress and Adjustment R eaction Problem 11/05/2019 12:00:00 AM EDT [facility] er) Surgeries/Procedures Procedure Description Date Indications Data Source(s) BLOOD COUNT COMPLETE AUTO&AUTO DIFRNTL WBC COUNT <td>C BC AND DIFFERENTIAL</td><td>Routine</td><td>04/12/2020 5:50 AM EST</td><td></td><td> </td> 04/12/2020 05:50:00 AM [facility] BASIC METABOLIC PANEL CALCIUM TOTAL <td>BASIC METABOLI C PANEL</td><td>Routine</td><td>04/12/2020 5:50 AM EST</td><td></td><td> </td> 04/12/2020 05:50:00 AM [facility] NEUTROPHIL CYTO AB COMMENT <td>NEUTROPHIL CYTO AB COMMENT</td><td>Routine</td><td>04/10/2020 4:44 PM EST</td><td></td><td> </td> 04/10/2020 04:44:00 PM [facility] SYPHILIS IGG/IGM SCREEN W/REFLEX TO RPR <td>SYPHILIS I GG/IGM SCREEN W/REFLEX TO RPR</td><td>Routine</td><td>04/10/2020 4:44 PM EST</td><td></td><td> </td> 04/10/2020 04:44:00 PM [facility] GAMMAGLOBULIN IGA IGD IGG IGM EACH <td>IMMUNOGLOBULIN ASSAY</td><td>Routine</td><td>04/10/2020 4:44 PM EST</td><td></td><td> </td> 04/10/2020 04:44:00 PM [facility] DNA ANTIBODY MESCALERO APACHE/DOUBLE STRANDED <td>APOLINAR SPECIFICITY</td><td>Routine</td><td>04/10/2020 4:44 PM EST</td><td></td><td> </td> 04/10/2020 04:44:00 PM [facility] IAAD EIA HIV-1 AG W/HIV-1&HIV-2 ANTBDY SINGLE <td>HIV AG AB COMBO SCREEN</td><td>Routine</td><td>04/10/2020 4:44 PM EST</td><td></td><td> </td> 04/10/2020 04:44:00 PM [facility] FLUORESCENT NONNFCT AGT ANTB TITER EA ANTIBODY <td>SUZIE TROPHIL CYTOPLASMIC ANTIBODY</td><td>Routine</td><td>04/10/2020 4:44 PM EST</td><td></td><td> </td> 04/10/2020 04:44:00 PM [facility] THROMBOPLASTIN TIME PARTIAL PLASMA/WHOLE BLOOD <td>HEX AGONAL PHASE PHOSPHO NEUT</td><td>Routine</td><td>04/10/2020 4:44 PM EST</td><td></td><td> </td> 04/10/2020 04:44:00 PM [facility] ACUTE HEPATITIS PANEL <td>HEPATITIS PANEL, ACUTE</td><td>Routine</td><td>04/10/2020 4:44 PM EST</td><td></td><td> </td> 04/10/2020 04:44:00 PM [facility] CARDIOLIPIN ANTIBODY EACH IG CLASS <td>CARDIOLIPIN ANT IBODY, IGA</td><td>Routine</td><td>04/10/2020 4:44 PM EST</td><td></td><td> </td> 04/10/2020 04:44:00 PM [facility] 25 HYDROXY INCLUDES FRACTIONS IF PERFORMED <td>VITAMIN D 25 HYDROXY, TOTAL</td><td>Routine</td><td>04/10/2020 4:44 PM EST</td><td></td><td> </td> 04/10/2020 04:44:00 PM [facility] HEPATITIS B SURF ANTIBODY HBSAB <td>HEPATITIS B SURFAC E ANTIBODY</td><td>Routine</td><td>04/10/2020 4:44 PM EST</td><td></td><td> </td> 04/10/2020 04:44:00 PM [facility] BETA 2 GLYCOPROTEIN I ANTIBODY EACH <td>EZPK-1-KGLTASF OTEIN IGA</td><td>Routine</td><td>04/10/2020 4:44 PM EST</td><td></td><td> </td> 04/10/2020 04:44:00 PM [facility] ANTIBODY BORRELIA BURGDORFERI LYME DISEASE <td>LYME IG G, IGM ANTIBODY</td><td>Routine</td><td>04/10/2020 4:44 PM EST</td><td></td><td> </td> 04/10/2020 04:44:00 PM [facility] C-REACTIVE PROTEIN <td>INFLAMMATORY C-REACTIVE PROTEIN (CRP)</td><td>Routine</td><td>04/10/2020 4:44 PM EST</td><td></td><td> </td> 04/10/2020 04:44:00 PM [facility] ANTINUCLEAR ANTIBODIES APOLINAR <td>APOLINAR</td><td>Routine</td ><td>04/10/2020 4:44 PM EST</td><td></td><td> </td> 04/10/2020 04:44:00 PM [facility] PROTEIN XCPT REFRACTOMETRY SERUM PLASMA/WHL BLD <td>AL OTEIN ELECTROPHORESIS WITH SERUM TOTAL PROTEIN</td><td>Routine</td><td>04/10/2020 4:44 PM EST</td><td></td><td> </td> 04/10/2020 04:44:00 PM [facility] HOMOCYSTEINE <td>HOMOCYSTEINE, SERUM</td> <td>Routine</td><td>04/10/2020 4:44 PM EST</td><td></td><td> </td> 04/10/2020 04:44:00 PM [facility] FOLIC ACID SERUM <td>FOLATE</td><td>Routine</ td><td>04/10/2020 4:44 PM EST</td><td></td><td> </td> 04/10/2020 04:44:00 PM [facility] CYANOCOBALAMIN VITAMIN B-12 <td>VITAMIN B12</td><td>Ro utine</td><td>04/10/2020 4:44 PM EST</td><td></td><td> </td> 04/10/2020 04:44:00 PM [facility] HEPATIC FUNCTION PANEL <td>HEPATIC FUNCTION PANEL A</td><td>Routine</td><td>04/10/2020 4:44 PM EST</td><td></td><td> </td> 04/10/2020 04:44:00 PM [facility] MRI SPINAL CANAL CERVICAL W/O & W/CONTR MATRL <td>MR C ERVICAL SPINE WITH AND WITHOUT CONTRAST [id number]</td><td>Routine</td><td>04/10/2020 2:44 PM EST</td><td></td><td> </td> 04/10/2020 02:44:00 PM [facility] MRI BRAIN BRAIN STEM W/O &W/CONTRAST MATERIAL <td>MR B RAIN WITH AND WITHOUT CONTRAST [id number]</td><td>Routine</td><td>04/10/2020 2:44 PM EST</td><td></td><td> </td> 04/10/2020 02:44:00 PM [facility] BLOOD COUNT COMPLETE AUTO&AUTO DIFRNTL WBC COUNT <td>C BC AND DIFFERENTIAL</td><td>Routine</td><td>04/10/2020 3:25 AM EST</td><td></td><td> </td> 04/10/2020 03:25:00 AM [facility] BASIC METABOLIC PANEL CALCIUM TOTAL <td>BASIC METABOLI C PANEL</td><td>Routine</td><td>04/10/2020 3:25 AM EST</td><td></td><td> </td> 04/10/2020 03:25:00 AM [facility] GLUCOSE QUANTITATIVE BLOOD XCPT REAGENT STRIP <td>POCT GLUCOSE, DOCKED</td><td>Routine</td><td>04/09/2020 7:45 PM EST</td><td></td><td> </td> 04/09/2020 07:45:00 PM [facility] PROTHROMBIN TIME <td>PROTIME INR</td><td>Rout ine</td><td>04/09/2020 7:43 PM EST</td><td></td><td> </td> 04/09/2020 07:43:00 PM [facility] BLOOD COUNT COMPLETE AUTO&AUTO DIFRNTL WBC COUNT <td>C BC AND DIFFERENTIAL</td><td>Routine</td><td>04/09/2020 7:43 PM EST</td><td></td><td> </td> 04/09/2020 07:43:00 PM [facility] THYROID STIMULATING HORMONE TSH <td>TSH</td><td>Routin e</td><td>04/09/2020 7:43 PM EST</td><td></td><td> </td> 04/09/2020 07:43:00 PM [facility] HEMOGLOBIN GLYCOSYLATED A1C <td>HEMOGLOBIN A1C</td><td>Routine</td><td>04/09/2020 7:43 PM EST</td><td></td><td> </td> 04/09/2020 07:43:00 PM [facility] LIPID PANEL <td>LIPID PANEL</td><td>Rout ine</td><td>04/09/2020 7:43 PM EST</td><td></td><td> </td> 04/09/2020 07:43:00 PM [facility] COMPREHENSIVE METABOLIC PANEL <td>COMPREHENSIVE METABO LIC PANEL</td><td>Routine</td><td>04/09/2020 7:43 PM EST</td><td></td><td> </td> 04/09/2020 07:43:00 PM [facility] EKG 12-LEAD - CMAXX REPORT <td>EKG 12-LEAD - CMAXX REPORT</td><td></td><td>04/09/2020 7:25 PM EST</td><td></td><td></td> 04/09/2020 07:25:48 PM EST [facility] EKG 12-LEAD - CMAXX REPORT <td>EKG 12-LEAD - CMAXX REPORT</td><td></td><td>04/09/2020 7:25 PM EST</td><td></td><td></td> 04/09/2020 07:25:48 PM [facility] EKG 12-LEAD <td>EKG 12-LEAD</td><td>Rout ine</td><td>04/09/2020 7:25 PM EST</td><td></td><td></td> 04/09/2020 07:25:48 PM [facility] EKG 12-LEAD <td>EKG 12-LEAD</td><td>Rout ine</td><td>04/09/2020 7:25 PM EST</td><td></td><td> </td> 04/09/2020 07:25:48 PM [facility] US GUIDANCE NEEDLE PLACEMENT RS&I <td>IR US GUIDED NEE DLE PLACEMENT</td><td>Routine</td><td>01/06/2020 4:00 PM EST</td><td></td><td> </td> 01/06/2020 09:00:00 PM EST [facility] PROTHROMBIN TIME <td>PROTIME-INR</td><td>STAT </td><td>01/06/2020 11:52 AM EST</td><td></td><td> </td> 01/06/2020 04:52:00 PM EST [facility] BLOOD COUNT COMPLETE AUTO&AUTO DIFRNTL WBC COUNT <td>C BC AND DIFFERENTIAL</td><td>Routine</td><td>01/06/2020 6:23 AM EST</td><td></td><td> </td> 01/06/2020 11:23:00 AM EST [facility] MRI SPINAL CANAL LUMBAR W/O &W/CONTR MATRL <td>MRI LUM BAR SPINE W WO CONTRAST</td><td>Routine</td><td>01/05/2020 5:46 PM EST</td><td></td><td> </td> 01/05/2020 10:46:56 PM EST [facility] RADEX SPINE LUMBOSACRAL 2/3 VIEWS <td>XR LUMBAR SPINE AP AND LATERAL</td><td>Routine</td><td>01/05/2020 1:41 AM EST</td><td></td><td> </td> 01/05/2020 06:41:17 AM EST [facility] COVID/FLU AB/RSV PCR <td>COVID/FLU AB/RSV PCR</td ><td>STAT</td><td>01/04/2020 10:09 PM EST</td><td></td><td> </td> 01/05/2020 03:09:00 AM EST [facility] BLOOD COUNT COMPLETE AUTO&AUTO DIFRNTL WBC COUNT <td>C BC AND DIFFERENTIAL</td><td>STAT</td><td>01/04/2020 10:09 PM EST</td><td></td><td> </td> 01/05/2020 03:09:00 AM EST [facility] COMPREHENSIVE METABOLIC PANEL <td>COMPREHENSIVE METABO LIC PANEL</td><td>STAT</td><td>01/04/2020 10:09 PM EST</td><td></td><td> </td> 01/05/2020 03:09:00 AM EST [facility] Results ID Date Data Source [id number] 09/25/2020 12:45:00 PM EDT [facility] Name Value Range Interpretation Code Description Data Adriana rce(s) Supporting Document(s) SARS coronavirus 2 RNA [Presence] in Res piratory specimen by BINA with probe detection NEGATIVE [facility] This lab was ordered by [facility] a nd reported by [facility]. 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/jGDWgfVh5Dn7ZjM75OjyRF1y0GI9c9kb1NHW0+El1ZxZx6FW84wyHfJRWoG [file] AgICAgICAgICAgICAgICAgICAgICAgICAgICAgICAgICAgICAgICAgICAgICAgICAgICAgICAgICAgIC AgICAgICAgICAgICAgICAgICAgICAgICANCiAgICAg ICAgICAgICAgICAgICAgICAgICAgICAgICAgICAgICAgICAgICAgICAgICAgICAgICAgICAgICAgICAg ICAgICAgICAgICAgICAgICAgICAgICAgICAgICAgICAgICANCiAgICAgICAgICAgICAgICAgICAgICAg ICAgICAgICAgICAgICAgICAgICAgICAgICAgICAgIC AgICAgICAgICAgICAgICAgICAgICAgICAgICAgICAgICAgICAgICAgICAgICANCiAgICAgICAgICAgIC AgICAgICAgICAgICAgICAgICAgICAgICAgICAgICAgICAgICAgICAgICAgICAgICAgICAgICAgICAgIC AgICAgICAgICAgICAgICAgICAgICAgICAgICANCiAg ICAgICAgICAgICAgICAgICAgICAgICAgICAgICAgICAgICAgICAgICAgICAgICAgICAgICAgICAgICAg ICAgICAgICAgICAgICAgICAgICAgICAgICAgICAgICAgICAgICANCiAgICAgICAgICAgICAgICAgICAg ICAgICAgICAgICAgICAgICAgICAgICAgICAgICAgIC AgICAgICAgICAgICAgICAgICAgICAgICAgICAgICAgICAgICAgICAgICAgICAgICANCiAgICAgICAgIC AgICAgICAgICAgICAgICAgICAgICAgICAgICAgICAgICAgICAgICAgICAgICAgICAgICAgICAgICAgIC AgICAgICAgICAgICAgICAgICAgICAgICAgICAgICAN CiAgICAgICAgICAgICAgICAgICAgICAgICAgICAgICAgICAgICAgICAgICAgICAgICAgICAgICAgICAg ICAgICAgICAgICAgICAgICAgICAgICAgICAgICAgICAgICAgICAgICANCiAgICAgICAgICAgICAgICAg ICAgICAgICAgICAgICAgICAgICAgICAgICAgICAgIC AgICAgICAgICAgICAgICAgICAgICAgICAgICAgICAgICAgICAgICAgICAgICAgICAgICANCiAgICAgIC AgICAgICAgICAgICAgICAgICAgICAgICAgICAgICAgICAgICAgICAgICAgICAgICAgICAgICAgICAgIC AgICAgICAgICAgICAgICAgICAgICAgICAgICAgICAg ICANCjw/eKHnK8xycLZnroV3Z4luMa8NWy3YCK7fa3FrRFThTDejraDcWglSIwBgCKFoUcvKPcz6TDkd LL2HuWWkU5MiU1TcGJamXI5UOOHjVMDkjRCwKJLtCKZfQhI5EMMbMAkvJA3NkBOdAUxcCNNmKBNrVnYq IFIgOSAwIFIgMTEgMCBSIDEzIDAgUiAxNSAwIFIgMT mpKKPHMUO8RQKoRcUeXYRbXJOjZnLqDGXHAYU3YCEkJcFaAlZoMLKeMxexQMUYUR2SYvWiV0ZfgN58BS EzDQo+Zt8XFQ2qc4LcCAt1NVUkCA0jwf3QNYcNEmIdD9HytuA2VUYwSWNzPj4EDPSjDZPagKN1THWaNS BFXaYnX9PvbT60AJQOJs9+DQplbmRvYmoNCjUwIDAg g7BrUFa7CQ3OQHVhVGc5iXPdGMGpX2Usj1ZuIu82HRXaRqvsXDXym0ZtoKYZIPYhWBAzubVyBQ5FUSB2 RHPkDJIdMfHcBPAzPtcaJPSWXEaUZuVhI2Aul2GnPsL5BAOvOxBrQXrrGKOjEuN0KT75xTwiPT5WGCMl YRYnQA39YYG7ORLaKh3TPo2ZDnNjPF4ddb6CEUYqCG EsWwaOIdh4ZUtxGI4EgTJyI5FqhEOxf5dXItJkD6CQSPS2ZGVlUs8BYMNkTyMaZDKqXFxbIJ1iQKHgBZ HMsRypmbK0HL7NMG5jtfZpLX2TIuUeOz4zGr5OBwYoF1WnH4FiVYRlMYLLIYsiQV1ZHYpgNP0yOO8St2 YDpMBxbO0qaa7UCLOgVCHqQoiwcg1JUnyaS9W1cHoj SARbVNhcAHAIXCmaNZ8BPKMqBXE9VLU9VOHlLDAPJoZqD89rVL4WR4Iyo55dHaH9WXZdDvNbDPiwIM80 iBsfrsJmbONgeStyBB7SWp6+VJvqwcFmUceJBjwfHJSGHlZhNURKIuTaYFMlZMTeIGEfIfB9XsZhKi0F BRTdEJZxHFQbUuIyUPYwIWDpNSveEEZtRRFqFFB1CY PuRHHvEC2CPpDfHPHmBXA2DUgeXZCeQCPbaq8XSEEhKNTxMPV4BeBrYMEjGIKhNFwnENKyQIXbQRs1BV TvDHAjPN6PCdMdPTPyEWVxIvylULImSDKpgu9LIPNiSTVgQcN0AKJdXMCvKZMbBQlsNQUeMBR8EgH3RU KoIKDeGG2JQqYsCFIjMNxmSlXvBPZzQMEliz1SHZTd UXUlVYRiLYXsVOZfYAOxHSulBKQtKALhRJJ9IYSdRQEaQN6HZoFeTBXrQXZ1RtPjXUAmDQXfxo5ZPXAw TDNwDvZ9AWJmZTDrVZHdLSlbCWGzSDXqFWM0DHCxDVSqOS9AFzOdFVOgUODiSJXtJIUzXYQnhy3QZLWl AEZmKwLnXLVaKXSyJPXlDZaxSLUxUKW2Ivi2CGIwGB HoYW1PQbFvKMDrUJt7CXAmUUZlPZWgpp6ZGWIlPXLqWKT7IVAwDMBkQBFqTEyaWQKoQPDtDhqmEBHdIQ XzSS0GEhGvZUFoKlR7JvEwEAUpUKYqws7RRVNyKFMnKtYvJNAfBLLsQJUcBVhvRPObLZA8QYy0KNSdVH CpPL5BHyDnBFMmFaXeZNHcMGIkFEFvaq3HJWAvRFPz MBB2DTHyGBPhEVDpENbvDLBiNKE6FuL1ZHSqGMWaKY9WMhZaGVWuTkY8JYggOYQvFTGubo4JRGJuAKFq PMe9AzNwGSXpHCNzTTdjESXxGMZ1BtI5BHTwUCDjSI2UBkNwJTCfMnW4TzQlZEHpSDWloo9PLHZfJWYl OdNwTLEuYMUePRRrDDmgEGGoDCJ4PlN2FCBqLGCmKI 6AFnZpAAWyUmM2AFGiOMXuMVXbwz9GCGZmVMGcCae3ZDErJEUdXQLuJJndFDNjPMR1QTIvQQAdCPUpES 5CZvPlMUEqYuirHCOuRSLoGUNkwc6VMMJyAGQ7OVI4KWOqXMFgJQHcOKxdHPUiPUG5ERE0GZRpIYCdNF 6YOwYcPCSmPXDgWZZlFVIxASXocm4YEXVlTPB3EIJ0 JUYcNSCxANDwGJqaGFRsXWQuFVXxHGCwEXJjME8WQtJdURXuADZ0IEJfEQHoGFPqnd0OPEZcNPA3ANLi BNOtMCBvYYQdXSipXUElPFUzIEF8SMDjJWGnOW9NEgTrXIYvUGL4IDFxRBTnWSNjrp3ECYLtGHU1Rhux HQOyFVQcRKOeJHebEOMvHUKoORI7SBYcBNBqNW7FKa IhARYlLYX6GWiiXDDaSLBypo7ITCVgRBD6VVY7YKPsQNQbWGLhKJxxHSGnURK1HRJiYSGjJEYcOJ3INi VlGJQaTNSsSPBaZSVoECNjtd1KnAXkzAgocy5JQZoVGu6PuKxnIHAoAVmlSx6apUS9UCEwYWKNZf8Vsl FpAEOfZKDJJNvqSGBfDKT2DWFnJVZpRGI8NANjNJJr AWDjKzAuULH9J3G4AfRcHdB6LXR5XMBiQeT1LntvGkW2GNC8MaJwURUkPUztQyB6G9V+TG3bEXn+Pg0K g2VysyJ7onGyZDp2FATjJx2CVRCEI4HJIb== ID Date Data Source [id number] 05/20/2020 07:04:00 PM EDT [facility] Name Value Range Interpretation Code Description Data Adriana rce(s) Supporting Document(s) SARS-CoV-2 (COVID 19) NEGATIVE - SARS-CoV-2 (COVID19) [facility] This lab was ordered by [facility] a nd reported by [facility]. ID Date Data Source [id number] 05/08/2020 05:57:13 PM EDT [facility] Name Value Range Interpretation Code Description Data Adriana rce(s) Supporting Document(s) Progress Note [facility] FRLVFe1tJcXNZpTg75/UWPeuXGOef8QsJBckEIw7CFeaZDStY5CtCTH3cX4sYQG8BRwBZkNfIuCzRNZc [facility] [file] ICAgICAgICAgICAgICAgICAgICAgICAgICAgICAgICAgICAgICAgICAgICAgICAgICAgICAgICAgICAg HWGbMDUuGPVtVSNzQR2JINCaNRMlNTNqLSYyVVDmED AgICAgICAgICAgICAgICAgICAgICAgICAgICAgICAgICAgICAgICAgICAgICAgICAgICAgICAgICAgIC TxZKAdHBYfIZKiNDAuPAVvZGJsLTAoXP8RYNPxSWAvYLHcMBRtKNZvSJMnZUFiINBuJNUaMUMkFDJfLO AgICAgICAgICAgICAgICAgICAgICAgICAgICAgICAg OHTmJHCkRQAnAGGpNCAjRVSeMGShRLKsIXDjVZGmMVDtTZ5UPJBgWKIoPLLtEZNrGTUmGGRjAMXhCCRx ICAgICAgICAgICAgICAgICAgICAgICAgICAgICAgICAgICAgICAgICAgICAgICAgICAgICAgICAgICAg ZVUnNIRiFGGhDMSyHCXvRK0EZCDhBGCxLMFbNUJzGP AgICAgICAgICAgICAgICAgICAgICAgICAgICAgICAgICAgICAgICAgICAgICAgICAgICAgICAgICAgIC EdEFAlZUYjRYNuMELaOHMrINFfJBDiPRLdUT4HWOHbBLDpIZPhPIWfDIWyCELrANLdVLNdCWBgVEJgRM AgICAgICAgICAgICAgICAgICAgICAgICAgICAgICAg OIEzFAXoRFAqHUNqIVLvDZRaDMRbPHZbMREsYHPoEXGmDYFqAR0OSWSiWKBcHURrJBXgESHlSYVrYJYy ICAgICAgICAgICAgICAgICAgICAgICAgICAgICAgICAgICAgICAgICAgICAgICAgICAgICAgICAgICAg EWRgMGCcVCAjYGSeXUAwTOWkSU3TRFZbQBVnYZGcDJ AgICAgICAgICAgICAgICAgICAgICAgICAgICAgICAgICAgICAgICAgICAgICAgICAgICAgICAgICAgIC UoOKEyXQGoODSkJKKeTUIbCJAeQHLyDCQuFSBuMC1GWYTuVPVvYUWyVATmEUNuWOTiXVEcVGZsQCTuQX AgICAgICAgICAgICAgICAgICAgICAgICAgICAgICAg QDKyUFXiWFIbOKNpFAJiBJVhDCYeNYOmUQFaFXXbKOVmWIKqFLFdHP8OMYWcQMPfIASzYRNhWSOgGFSo ICAgICAgICAgICAgICAgICAgICAgICAgICAgICAgICAgICAgICAgICAgICAgICAgICAgICAgICAgICAg MQMlLYQcLXLtKKFsUQQmXMYhLZDrQO7RRL79vGXmm6 O0QVAdHR0ncxs/Xd0LTJuonpSyzPYuBA4LPjDmQI7ncu8YHlWoCT0rdu6DQLnNSyHkV4Y9tVFvNUDiMT WSOvEhJ85fNClxTm31USrkTVIhRbFgTWt6Vr9VHeKnJ8swHPQnJfS2KPTmVsV0HYDuYyI0MLRhDqYkKC PqPEKzJQNnMCGQEFQ7OEYzXwHjDsBpSHAoQXziNYKS RDGaENYbWjPwXxLdMZZtCpFvAYLPSWI5ITRlMdXcEZOsMHIkJbKzERGJFE9PTyQlT8OmlQ63KYO5ETm+ Iu9HSS5sr4AwTRb0JFPsXZ4twg2FLHeNZnNyP7KswkP8QJQnRUEaZp2JSGWgBEXqfUR2LmKiMJUNGyGk F5FjbM53BJTNKr1+TVellkUuTkkBQgNlIMBtf2HuOU o0FT3ZQHNnVCy1qQGbXMNjV2Nnz2NoIy29UFXrUxufM35wGZvzRGXZM3bcOQrvLA5HKHY1GQTxSbWvEm PtUMKfXetlXJXAKXsAWqKdA7Bmt9OcHaE2KZHwWrBdTTdpALGjRvZ8NK55kHwbCS0AQPKlFFVcZL34CL NpPHOyWk9DZp1HQxQpZP5vjv0WKIHfATBeCpvPHtr6 SVhnXB8FiAZaN9MpeFWjx6kSDpKvD8DHMMB8RXTcWo8ZKWLeAhWoDMDdLCxyLA5cGMQiLTJCuZbkejL0 MM0EQA9tsxDeUZ3DZlSaTi2zPx8MGrNtA7GzK7TzDFQpKMIYCSxxRL2XAWulCC0eSA0Pe7XByHTehJ8l nq4EBALdDBSiPllqui5FMncnI3L8yQsaNXVpIYKfID OCAQuqBQ1MYYCkDRI5QUX6EZEqWMGODgPwO66zSS4VG8Lhd48uUzK7JISrRqXeKGvfOX37xEpolkDbzU JxvWegLO7IXv9+XFwiwcFmIuaQMlqwQJYWUjPzINQVTiOyJMXxCAUyPBStWgN0HoHcGk6CORDfYJJlQI VcKhOeFJXoKKSvMTaxXAUwVPViQLP3WRZsLAReSG3Y KhMoEEZoZEL1OIjlXJZfJWJsct2XWOVgOJJrNNT6VmEpDNTsHWBhSZndCOBsOZEoKnMbHZRkMVPeVS8T HiAuJZZpTZB5GCGuFJHaPOIfwh2BVEKbYWNdLEO5FrQxVGVhVVMyLKgrDPCmTYV7HtkbHIApPPYnIE1R CzUrFDCkDYi8WPLxRSEfVMMbyj1HEJYbWLOmHwe7Ou AiRTPzRNFjOQdgBJZcYNF4UXV4LJSwDHJqQT8CGhCnPRIaXLGxIRVnRXOmCTYtln8BEROlEEGrXhR5AF VnMNGgVWSuWEgrYKDuSZHwFpXeBLXoJQUkHK2ZGwQeGPMbVHA6GUNpRWOaHMHsms2NKFWiKIBuOUEvLX LxWOHlGQGqKAqxAIAvNCH7Nfk6UNVzTLKxUW7MYpTc STNgEQF8KPGxJMKbYBMiws5FGRZbPCBaMDk0UkRkILYyDOOsVDdjRFOpEJO8KFJnOLJuDXFqIG7JTuSr ZEKtJaUgOfPyQLUrZHDunk0SKZQsEAFtVHUjIDZtBLDkGYIgQOlkYNIpWPYrFHWrOXHcVFInNS9QLmIg MDUeDyI9LBZeFCRdCMZldw0QYWOfGOOyZHgpHGNtWA CnDDYnLOobCDLxCKE2SJMfVZAgZDFtHP6ATmYdDMJdQvs1SqtfTEOyFJKjul0HGGUvPZMxTLyzFyFsLN TmPUQkYCndIWRfUHNwXyu2HFYoXXEaXX8LSsOdXMBuWjK7HICbRKGbEIUlci7IYJAhMGUgYHR8KgTpFR YxRUUgGGxtEQQoKCJ2Jlp9WLMfFYLhUD7CAmZqOCTb CuNsTEckRIDmANRdbn4KTYGaYZOzCVZ4GnHeQNPtTEXpDFnkHDYtJHJ8BqY1REWyORQjAP0MRnJeTXDk MxD0IGeyTXRkNEVrds8BXYGcHPBuJgc8RCBmWIKrFOYaOUxcSFSjCAW6NXs3RAFtRVKeUG7LJnWtVTNj DWe6CAabZAKmWORkdr7FIHMjMMO0XKymMoCnCFFiNS XmVTrbJRLbTGI2CWFpRORjVTBjRA8KDtWsUSMoIHrmKXVqZQIdDIFxpe7WTBKoKWK5WRSfVYBjVEKyYK ToILsfHXUvEJQgUqicOGIeFUVvAC5YBySpKDJoYEE7UbPrFDGsZEDjmu7PMLObRCL6GJomFUSxYCCwBT EjZDtvJZSfFWObCla3RNDeSWGpYA1DRzIwLRTgERW2 IaIdDWCdJUCbid9WHNCvFTY9KpO5BJFxYNIeGPOkOVsyPQChXSDmOXd7GVUpXUBjGJ9GIzHyUBBdICYk YVFyJWXzOQVpgu9LVVXxWOY3LPD9KwClCNRqAFBzYJkjUJFoJFO4CeQ1CLRyQUFuNM3CVwMmJUinNGHF Evt2TFpuM1y6AOD0HU2VN0Hur8FhTQOjKFOKSZzgVV 3arjImBJOeWq0NT8mVYyi8DAYeDEUePYimFEh4DUv9GhC2EdK4W8YlZXXoLoW4Yo4jRON4WKIwWMP5DW CcDqQhWMJiOAlgAasjJkJ2OYFgHyX6MjTrNX5AUz5JSlP8XQY9bKIgMq2ATRZ1HbsJVqTrSS9ZQSh= ID Date Data Source [id number] 04/24/2020 06:39:00 PM EDT [facility] Name Value Range Interpretation Code Description Data Adriana rce(s) Supporting Document(s) SARS coronavirus 2 RNA [Presence] in Res piratory specimen by BINA with probe detection NEGATIVE [facility] This lab was ordered by [facility] a nd reported by [facility]. ID Date Data Source [id number] 04/20/2020 09:59:00 [place] [address] RESPIRATORY CARE REPORT ==== ---------NAME------- NUMBER SEX AGE ADMIT DISC. XRAY# F/C TYPEMURPHY DELONTE M [id number] M 34 04/19/20 04/19/20 [id number] X6B E/R DATE OF : 1985 M/R# [id number] #: [id number] TR-08 LOCATION: EMERGENCY DEPT EKG [id number] COMP LETE:04/19/20 23:07 AJP 85919 PHYSICIAN: IVAN KIRK Name Value Range Interpretation Code Description Data Adriana rce(s) Supporting Document(s) ID Date Data Source [id number] 04/20/2020 10:11:00 AM EDT [facility] [address] [place] [address] PHONE: [phone] FAX: [phone] Name .................. : JAUN DELONTE M Acct Number.................. : [id number] ROOM. ................. : TR-08 Number ................... : [id number] Stay type ............. : E/R Discharge Date......... ... : 04/19/20 Admit Date ......... : 04/19/20 Admit Phys .................... : IVAN KIRK Date of ....... : 1985 Family Phys ................... : ALEX KEANE Phone .................. : [phone] Age ................................ : 34 Film# .................. .:[id number] Sex ................................. : M Unsigned transcriptions are preliminary reports and do not represent a medical or legal document CT HEAD W/O CONTRAST [id number] COMPLETE:04/19/20 21:44 KJE 6321 Reason(s): Altered Mental [...] By Maninder Luis M.D. , 04/20/20 10:11, [facility] Transcribe Initials: MELANIE , Transcribe Date: 04/20/20 01:16, Dictation Date: Copy for: EMERGENCY DEPT via modem Copy for: 710 MED REC DISCHARGED Page 1 of 1 Name Value Range Interpretation Code Description Data Adriana rce(s) Supporting Document(s) ID Date Data Source [id number] 04/20/2020 10:10:00 AM EDT [facility] [address] [place] [address] PHONE: [phone] FAX: [phone] Name .................. : JAUN GARCIAYolande Meyer Acct Number.................. : [id number] ROOM. ................. : TR-08 Number ................... : [id number] Stay type ............. : E/R Discharge Date......... ... : Admit Date ......... : 04/19/20 Admit Phys .................... : IVAN KIRK Date of ....... : 1985 Family Phys ................... : AELX KEANE Phone .................. : [phone] Age ................................ : 34 Film# .................. .:[id number] Sex ................................. : M Unsigned transcriptions are preliminary reports and do not represent a medical or legal document CHEST PORTABLE [id number] COMPLETE:04/19/20 21:44 KJE 6320 Reason(s): overdose, AMS PORTABLE CHEST X-RAY: INDICATION: Overdose. FINDINGS: The cardiac and mediastinal silhouettes appear normal and the lungs are clear. The bones and soft tissues are normal. The upper abdomen is un remarkable. IMPRESSION: No acute disease identifiable. Electronically Reviewed and Signed By Maninder Luis M.D. , 04/20/20 10:10, [facility] Transcribe Initials: MELANIE , Transcribe Date: 04/19/20 21:54, Dictation Date: Copy for: EMERGENCY DEPT via mode Copy for: 710 MED REC DISCHARGED Page 1 of 1 Name Value Range Interpretation Code Description Data Adriana rce(s) Supporting Document(s) ID Date Data Source [id number] 04/20/2020 09:09:00 [place] [address] PHONE: [phone] FAX: [phone] Name .................. : JAUN Meyer Acct Number.................. : [id number] ROOM. ................. : Number ................... : [id number] Stay type ............. : O/P Discharge Date......... ... : 04/16/20 Admit Date ......... : 04/16/20 Admit Phys .................... : POLY ZABALA Date of ....... : 1985 Family Phys ................... : ALEX KEANE Phone .................. : [phone] Age ................................ : 34 Film# .................. .:[id number] Sex ................................. : M Unsigned transcriptions are preliminary reports and do not represent a medical or legal document DOPPLER UNILATERAL VENOUS [id number] COMPLETE:04/16/20 18:23 BAW 6177 (REASON FOR PROCESS: [...] for: POLY ADHIKARI via fax Copy for: [address] [place] [address] REC Page 1 of 1 Name Value Range Interpretation Code Description Data Adriana rce(s) Supporting Document(s) ID Date Data Source [id number] 04/19/2020 08:39:00 PM EDT [facility] 1 OrderSheet [facility] Emergency Department [address] [place] [address] Phone #: ext- [phone] 04/19/2020 20:24 Patient: [...] Angel Novak Riccardo Katelyn M.D.;Salicylate Level STAT 21:04/19/2020 21:06 Ivan Novak Riccardo Katelyn M.D.;Urinalysis (Clean STAT 21:04/19/2020 Ack'd: 21:21 2 OrderSheet [facility] Emergency Department [address] [place] [address] Phone #: wsd- [phone] 04/19/2020 20:24 Patient: DELONTE ZAMORANO Sex: M : 1985 Age: 34yCatch) Chapito Love Katelyn M.D.;Urine Drug Screen STAT 21:04/19/2020 Ack'd: 21:21 Chapito Love Katelyn M.D.;COVID-19 CAH (Not STAT 21:04/19/2020 Ack'd: 21:06 21:07 Scarlet,Symptomatic as Chapito oLve Katelyn KatelynDefined by CDC) West;(04/19/2020) (NotFirst Test) (NotHospitalized) (Not) (NotResident inCongregate CareSetting) (NotEmployed inHealthcare Setting)Venous Blood Gas STAT 21:50 04/19/2020 22:27 Ivan Novak Riccardo Katelyn M.D.;Lactic Acid STAT 21:50 04/19/2020 22:27 Ivan Novak Riccardo Katelyn M.D.;DIAGNOSTIC STUDY ORDERSOrder Description Priority Entered Acknowledged InitialedChest Portable 1 STAT 21:04/19/2020 Ack'd: 21:06 22:27 Mc Novak Riccardo Beyer, Katelyn Katelyn(Oxygen?(No)) West; Reason for Study: overdose, AMSCT Head W/O Cont STAT 21:04/19/2020 Ack'd: 21:06 22:27 Scarlet,(Oxygen?(No)) Chapito Love Katelyn Katelyn M.D.; Reason for Study: Altered Mental Stat usMEDICATION/IV/DRIP/FLUID ORDERSOrder Description Priority Entered Acknowledged InitialedNS IV 500 mL 21:05 04/19/2020 Ack'd: 21:06 21:13 Veto,Bolus: : Bolus 500 Chapito Love Katelyn Sarah R.NMorrismL, then 125 mL/hr M.D.;(X1)Lopressor IVP 5 mg 21:05 04/19/2020 Ack'd: 21:06 21:14 Veto(HIGH ALERT Chapito Love Katelyn Sarah R.N. 3 OrderSheet [facility] Emergency Department [address] [place] [address] Phone #: ext- [phone] 04/19/2020 20:24 ----- Patient: DELONTE ZAMORANO Sex: M : 1985 Age: 34yMEDICATION) West;GENERAL ORDERSOrder Description Priority Entered Acknowledged InitialedBlood Pressure 21:04/19/2020 21:05 Veto,Monitor Chapito LoveNMorris MKayode;Pet Sitting 21:04/19/2020 21:05 Veto(continuous) Chapito LoveNMorris Dodson;EKG 21:04/19/2020 21:05 Ivan Laws Riccardo Sarah R.N. M.D.;NPO 21:04/19/2020 21:05 Ivan Laws Riccardo Sarah R.N. M.D.;Obtain Old EKG 21:04/19/2020 21:05 Ivan Laws Riccardo Sarah R.N. M.D.;Obtain Old Records 21:01 04/19/2020 21:05 Ivan Laws Riccardo Sarah R.N. M.D.;Oxygen titrate to 21:04/19/2020 21:05 Veto,92% Chapito Love R.N., M.D.;Pulse oximeter 21:04/19/2020 21:05 Veto(Continuous) Chapito Love R.N., M.D.;Saline Lock 21:04/19/2020 21:05 Ivan Laws Riccardo Sarah R.N. M.D.;Vitals 21:04/19/2020 21:05 Ivan Laws Riccardo Sarah R.N. M.D.;[Electronically signed by Chapito Love M.D. (04:31 04/20/2020)][Electronically signed by Roxana Laws R.N. (06:30 04/20/2020)][Electronically locked by Roxana Laws R.N. (06:30 04/20/2020)] Name Value Range Interpretation Code Description Data Adriana rce(s) Supporting Document(s) ID Date Data Source [id number] 04/19/2020 08:39:00 PM EDT [facility] 1 Medication Reconciliation Report [facility] Emergency Department [address] [place] [address] Phone #: ext- [phone] 04/19/2020 20:24 Patient: [...] rce(s) Supporting Document(s) ID Date Data Source [id number] 04/19/2020 08:39:00 PM EDT [place] [address] Medication Administration Record [facility] Emergency Department [address] [place] [address] Phone #: ext- [phone] 04/19/2020 20:24 Patient: DELONTE ZAMORANO Sex: M : 1985 Age: 34yWeight: 99.7 kgHeight/Length: 72 inBMI: 29.8ALLERGIES : Gabapentin, Torodal Date/Time Medication Administered Medication OrderedStart NS [IV] NS IV 500 mL Bolus: : Bolus 70239:12 04/19/2020 Dose: IV Fluids mL, then 125 [...] rce(s) Supporting Document(s) ID Date Data Source [id number] 04/19/2020 08:39:00 PM EDT [facility] 1 General Instructions [facility] Emergency Department [address] [place] [address] Phone #: ext- [phone] 04/19/2020 20:24 Patient: [...] may feel: Helpless Nervous 2 General Instructions [facility] Emergency Department [address] [place] [address] Phone #: ext- [phone] 04/19/2020 20:24 Patient: DELONTE ZAMORANO Sex: M : 1985 Age: 34y Depressed [...] the stress becomes severe. 3 General Instructions [facility] Emergency Department [address] [place] [address] Phone #: ext- [phone] 04/19/2020 20:24 Patient: [...] medicine to help you manage stress.Call 911Call [phone] if any of these happen: Trouble breathing Confusion Drowsiness or trouble wakening Fainting or loss of consciousness Rapid heart rate Seizure New chest pain that becomes more severe, lasts longer, or spreads into your shoulder, arm, neck, jaw, or backWhen to seek medical advice 4 General Instructions [facility] Emergency Department [address] [place] [address] Phone #: ext- [phone] 04/19/2020 20:24 Patient: DELONTE ZAMORANO Sex: Betsy : 1985 Age: 34yCall your healthcare provider right away if any of these happen: Your symptoms get worse Severe headache not relieved by rest and mild pain reliever 5490-[address] [place] [address]. All rights reserved. This information is not [...] than from physical withdrawal. 5 General Instructions [facility] Emergency Department [address] [place] [address] Phone #: ext- [phone] 04/19/2020 20:24 Patient: DELONTE ZAMORANO ct#: [id number] Sex: Betsy : 1985 Age: 34yIs marijuana [...] National Alcohol and Substance Abuse Information Center: 261.399.9551 or www.addictioncareGood4U.[employer] National [place] on Alcoholism and Drug Dependence: 699.682.4514 or www.ncadd.org Marijuana Anonymous: 304.308.2153 or www.marijuana-anonymous.orgWhen to seek medical advice 6 General Instructions [facility] Emergency Department [address] [place] [address] Phone #: ext- [phone] 04/19/2020 20:24 Patient: DELONTE ZAMORANO Sex: M : 1985 Age: 34yCall your healthcare provider right away if any of these occur: You feel extreme depression, fear, anxiety, or anger toward yourself or others. You feel out of control. You feel that you may try to harm yourself or another. You have chest pain or shortness of breath. 4126-8747 [employer]. [address] [place] [address]. All rights reserved. This information is not [...] job or your family Arrest, conviction, and prison sentence for possession of an illegal substance [...] Hepatitis B or C 7 General Instructions [facility] Emergency Department [address] [place] [address] Phone #: ext- [phone] 04/19/2020 20:24 Patient: DELONTE ZAMORANO Sex: Betsy : 1985 Age: 34y from [facility], cancer centerThe following suggestions can help you care for [...] of the resources below for help: National [place] on Alcoholism and Drug Dependence, www.ncadd.org, Narcotics Anonymous, www.na.org, National Alcohol and Substance Abuse Information Center, www.EdlogicscareGood4U.Genelux, . This center can refer you to a treatment program.Call [phone] [phone] if any of the following occur: Seizure Hard time breathing or slow, irregular breathing Chest pain Sudden weakness on one side of your body or sudden trouble speaking Very drowsy or trouble awakening Fainting or loss of consciousness Rapid heart rate Very slow heart rateWhen to seek medical advice 8 General Instructions [facility] Emergency Department [address] [place] [address] Phone #: ext- [phone] 04/19/2020 20:24 Patient: DELONTE ZAMORANO Sex: M : 1985 Age: 34yCall your healthcare provider right away if any of these occur: Agitation, anxiety, or unable to sleep Unintended weight loss. This means more than 10 to 15 pounds over 3 months. Fever of 100.4F (38C) or higher, or as directed by your healthcare provider Shortness of breath Cough with colored sputum Redness, swelling, or tenderness at an injection site 1427-2342 [employer]. [address] [place] [address]. All rights reserved. This information is not [...] and possibly slurred speech 9 General Instructions [facility] Emergency Department [address] [place] [address] Phone #: ext- [phone] 04/19/2020 20:24 Patient: [...] and Substance Abuse Information 10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 [id number] lbm [file] [id number] ID Date Data Source [id number] 04/09/2020 11:42:00 AM EST [facility] 1 OrderSheet [facility] Emergency Department [address] [place] [address] Phone #: ext- [phone] 04/09/2020 11:33 Patient: DELONTE ZAMORANO Sex: M : 1985 Age: 34yWEIGHT:97.5 kg (S) HEIGHT:71 inches (S) BMI:30.0ALLERGIES: Gabapentin, ToradolCHIEF COMPLAINT: weakness, paresthesia, walkingDIAGNOSIS: Cerebrovascular accidentLAB ORDERSOrder Description Priority Entered Acknowledged InitialedBlood Culture STAT 12:04/09/2020 12:27 Anel Lopez X2 (Yoav Oates RMorrisNMorris12:07 04/09/2020) ;Blood Culture STAT 12:04/09/2020 12:27 Anel Lopez X2 (Yoav OatesNMorris12:17 04/09/2020) ;CBC w Diff STAT 12:04/09/2020 12:27 Patrica Lopez Victoria R.N. ;CMP STAT 12:04/09/2020 12:27 Patrica Lopez Victoria R.N. ;Fibrinogen Level STAT 12:04/09/2020 12:27 Patrica Lopez Victoria R.N. ;Magnesium STAT 12:04/09/2020 12:27 Patrica Lopez Victoria R.N. ;PT/INR STAT 12:07 04/09/2020 12:27 Patrica Lopez Victoria R.N. ;PT/PTT STAT 12:04/09/2020 12:27 Patrica Lopez Victoria R.N. ;Urinalysis (Clean STAT 12:04/09/2020 Cancelled: Patient Refusal 15:50 Jordan Lopez) Yoav Vargas R.N. ;Venous Blood Gas STAT 12:04/09/2020 12:28 Patrica Lopez Victoria R.N. ;COVID-19 CAH (Not STAT 14:19 04/09/2020 14:19 Patrica Lopez 2 OrderSheet [facility] Emergency Department [address] [place] [address] Phone #: ext- [phone] 04/09/2020 11:33 Patient: DELONTE ZAMORANO Sex: M : 1985 Age: 34ySymptomatic as Patrica Lopez R.N.; R.N.Defined by CDC) Verbal order per;(04/07/20) (Not First Ángel Vargas) (Hospitalized)(Not ) (NotResident inCongregate CareSetting) (NotEmployed inHealthcare Setting)DIAGNOSTIC STUDY ORDERSOrder Description Priority Entered Acknowledged InitialedChest Portable 1 STAT 12:04/09/2020 12:21 Renato Lopez Victoria R.N.(Oxygen?(No)) ; Reason for Study: strokeCT HEAD (STROKE STAT 12:04/09/2020 12:21 Cole Lopez Victoria R.N.(Oxygen?(No)) ;(IV?(Yes)) Reason for Study: left sided [...] mL/hr 12:07 04/09/2020 12:31 Patrica Lopez Victoria R.NMorris ;Ativan IVP 2 mg 12:58 04/09/2020 13:04 Patrica Lopez(NOW x1, HIGH Sandy Dimas R.N.ALERT R.N.; Verbal orderMEDICATION) per; Yoav VargasOfirmev IV 1000 mg 13:49 04/09/2020 14:18 Patrica Lopez(NOW x1, Infuse C Yoav stapleton R.N. 3 OrderSheet [facility] Emergency Department [address] [place] [address] Phone #: ext- [phone] 04/09/2020 11:33 Patient: DELONTE ZAMORANO Sex: M : 1985 Age: 34yover 15 minutes) ;Percocet PO 1 tab 15:34 04/09/2020 15:38 Patrica Lopez(HIGH ALERT Yoav Vargas RMorrisNMorrisMEDICATION) ;GENERAL ORDERSOrder Description Priority Entered Acknowledged InitialedAccucheck 12:07 04/09/2020 12:21 Patrica Lopez Victoria R.N. ;Blood Pressure 12:07 04/09/2020 12:16 Patrica LopezMonYoav Eaton R.N. ;Pet Sitting 12:07 04/09/2020 12:16 Patrica Lopez(continuous) Yoav Vargas R.N. ;EKG 12:04/09/2020 12:16 Patrica Lopez Victoria R.N. ;Thurman Catheter 12:04/09/2020 Cancelled: Physician Order 12:30 Alicia Lopez Victoria Julie R.N. ;Hemorrhagic stroke 12:07 04/09/2020 12:30 Darleen Lopez SBP<160, Yoav Vargas R.NMorrisDBP<90 mmHg ;HOB @ 30 degrees 12:07 04/09/2020 12:20 Mackenzie Lopez in neutral Yoav Vargas R.Daposition ;If glucose >130, see 12:07 04/09/2020 12:20 Kalyan Lopez insulin orders Yoav VargasNMorris ;Ischemic stroke 12:07 04/09/2020 12:17 Darleen Lopez SBP<220, Yoav Vargas R.NMorrisDBP<120 mmHg ;NPO 12:07 04/09/2020 12:17 Patrica Lopez Victoria R.N. ;Ntfy if Abnml Vitals 12:04/09/2020 12:17 Patrica Lopez Victoria R.N. ;Obtain Old EKG 12:04/09/2020 12:17 Patrica Lopez Victoria R.N. ; 4 OrderSheet [facility] Emergency Department [address] [place] [address] Phone #: ext- [phone] 04/09/2020 11:33 Patient: DELONTE ZAMORANO Sex: M : 1985 Age: 34yOxygen titrate to 12:07 04/09/2020 12:17 Patrica Lopez92% Yoav Vargas R.N. ;Pulse oximeter 12:07 04/09/2020 12:17 Patrica Lopez(Continuous) Yoav Vargas R.N. ;Saline Lock 12:04/09/2020 12:27 Patrica Lopez Victoria R.N. ;Stroke Alert 12:07 04/09/2020 12:17 Patrica Lopez Victoria R.N. ;Swallowing screen 12:07 04/09/2020 12:16 Torres Lopez on all pts prior Yoav Vargas R.N.to first PO intake ;Vitals 12:04/09/2020 12:27 Patrica Lopez Victoria R.N. ;Consult - 14:04/09/2020 14:18 Patrica LopezHospitalist Yoav Vargas R.N. ;Transfer: 14:04/09/2020 14:18 Patrica Lopez Victoria R.N. ;[Electronically signed by Patrica Lopez R.N. (16:06 04/09/2020)][Electronically signed by Yoav Vargas (05:19 04/10/2020)][Electronically locked by Patrica Lopez R.N. (16:04/09/2020)] Name Value Range Interpretation Code Description Data Adriana rce(s) Supporting Document(s) ID Date Data Source [id number] 04/09/2020 11:42:00 AM EST [facility] 1 Medication Reconciliation Report [facility] Emergency Department [address] [place] [address] Phone #: ext- [phone] 04/09/2020 11:33 Patient: [...] rce(s) Supporting Document(s) ID Date Data Source [id number] 04/09/2020 11:42:00 AM EST [facility] 1 Medication Administration Record [facility] Emergency Department [address] [place] [address] Phone #: ext- [phone] 04/09/2020 11:33 Patient: DELONTE ZAMORANO Sex: M : 1985 Age: 34yWeight: 97.5 kgHeight/Length: 71 inBMI: 30ALLERGIES: Gabapentin, Toradol Date/Time Medication Administered Medication OrderedStart IV NS IV NS : 100 mL/hr12:31 04/09/2020 Dose: IV Patrica Jolley, RMorrisNMorris Rate: 100 mL/hr over 4 hour(s)---- Dispensed: 1000 mL bagStop Site: #1 left AC15:49 1RPatrica shukla ROniGiven ATIVAN [IVP] (LORAZEPAM) Ativan IVP 2 mg (NOW x1, HIGH13:04 04/09/2020 Dose: 2 mg IVP ALERT MEDICATION)Patrica Lopez R.N. Site: #1 left ACStart ofirmev * Ofirmev IV 1000 mg (NOW x1,14:18 04/09/2020 Dose: 1000 mg * IV Infuse over 15 minutes)Patrica Lopez R.N.----Stop15:37 1RPatrica shukla R.N.Given PERCOCET [PO] Percocet PO 1 tab (HIGH ALERT15:38 04/09/2020 (OXYCODONE-ACETAMINO PHEN) MEDICATION)Patrica Lopez R.N. Dose: 1 tab PO Name Value Range Interpretation Code Description Data Adriana rce(s) Supporting Document(s) ID Date Data Source [id number] 04/09/2020 11:42:00 AM [facility] 1 General Instructions [facility] Emergency Department [address] [place] [address] Phone #: ext- [phone] 04/09/2020 11:33 Patient: DELONTE ZAMORANO Sex: M : 1985 Age: 34yNontraumatic cerebrovascular accident- embolic ischemic infarct involving an unknown intracranial artery.No hemorrhage.(Electronically signed by Yoav Vargas 04/10/2020 05:18) Name Value Range Interpretation Code Description Data Adriana rce(s) Supporting Document(s) ID Date Data Source [id number] 04/09/2020 11:42:00 AM [facility] 1 Clinical Report - Nurses [facility] Emergency Department [address] [place] [address] Phone #: ext [phone] 04/09/2020 11:33 Patient: DELONTE ZAMORANO Sex: M [...] weeks ago). The patient has had numbness.Treatment DIORAMIST:Took Tylenol. (1000). --11:40 04/09/20 Patrica Lopez R.N.11:47 [...] Chest Pain. 2 Clinical Report - Nurses [facility] Emergency Department [address] [place] [address] Phone #: ext- [phone] 04/09/2020 11:33 Patient: DELONTE ZAMORANO Sex: M [...] yourself?" and 3 Clinical Report - Nurses [facility] Emergency Department [address] [place] [address] Phone #: ext- [phone] 04/09/2020 11:33 Patient: DELONTE ZAMORANO Sex: Betsy : 1985 Age: 34y "Have you ever [...] Lopez R.N. 12:05 04/09/20. Patient transported to [place] by stretcher with tech. --12:15 04/09/20 Patrica Lopez R.N. 12:10 04/09/20. Patient returned from CT by stretcher with nurse. --12:15 04/09/20 Patrica Lopez R.N. EKG time: (12:15 04/09/2020). --12:16 04/09/20 Patrica Lopez R.N. 12:17 04/09/20. BP: 146/83. MAP: 104. HR: 75. RR: 11. O2 saturation: 100%. --12:17 04/09/20 [place] [facility] 4 Clinical Report - Nurses [facility] Emergency Department [address] [place] [address] Phone #: ext- [phone] 04/09/2020 11:33 Patient: DELONTE ZAMORANO Sex: M : 1985 Age: 34yTech, Marisol, ER [id number] stick glucose: 86; performed by nurse; result shown to the ED physician. --12:20 04/09/20 Patrica Lopez R.N.12:29 04/09/20. BP: 126/81. MAP: 96. HR: 86. RR: 21. O2 saturation: 100%. --12:29 04/09/20 Rosas HarrisfanyJUAN Loaz658:31 04/09/2020 Site #1 started via IV in the left antecubital space with an 18g angiocath, with aseptictechnique and good blood return; one attempt. Saline lock flushed with 10 mL saline. --12:31 04/09/20 Patrica Lopez R.N.12:31 04/09/2020 Started bag #1 1000 mL IV Fluids [...] Patrica Lopez R.N.13:16 04/09/20. Patient transported to [facility] by wheelchair with tech. --13:21 04/09/20 Patrica Lopez R.N.13:46 04/09/20. BP: 146/84. MAP: 104. HR: 91. RR: 19. O2 saturation: 100%. --13:47 04/09/20 Daisha Menchaca MarisolJUAN [id number] returned from [facility] by wheelchair with tech. --13:49 04/09/20 [...] R.N.( pt made aware of transport to [facility]). --14:20 04/09/20 Partica Lopez R.N.14:34 04/09/20. BP: 149/99. MAP: 115. HR: 78. RR: 18. O2 saturation: 100%. --14:34 04/09/20 [employer] 5 Clinical Report - Nurses [facility] Emergency Department [address] [place] [address] Phone #: ext- [phone] 04/09/2020 11:33 Patient: DELONTE ZAMORANO Sex: Betsy : 1985 Age: 34y 14:59 04/09/20. BP: 144/102. MAP: 116. HR: 67. RR: 18. O2 saturation: 97%. --15:00 04/09/20 [employer] ( waiting for transfer to [facility] no change in neuro status). --15:12 04/09/20 Patrica Lopez R.N. 15:34 04/09/20. BP: 126/102. MAP: 110. HR: 90. RR: 21. O2 saturation: 100%. --15:34 04/09/20 [employer] 15:37 04/09/2020 Ofirmev IV Discontinued: completed. [...] Patrica Lopez R.N.DISPOSITION / DISCHARGE Transferred to [facility]. Visit overview, summary of care (CCDA) [...] was acknowledged and care was transferred. (radha Peacock. Bed obtained and ready. --15:10 04/09/20 Patrica Lopez R.N. 15:40 04/09/20. BP: 126/102. MAP: 110. HR: 90. RR: 21. O2 saturation: 100%. Temp: 98.1 F. Pain level now: 05/15. Additional comments: Dr bueno. --15:49 04/09/20 Patrica Lopez R.N. Departure time: 15:55 04/09/2020. --16:05 04/09/20 Patrica Lopez R.N.Locked/Released at 04/09/2020 16:06 by Patrica Lopez R.N. 6 Clinical Report - Nurses [facility] Emergency Department [address] [place] [address] Phone #: ext- [phone] 04/09/2020 11:33 Patient: DELONTE ZAMORANO Sex: M : 1985 Age: 34y Name Value Range Interpretation Code Description Data Adriana rce(s) Supporting Document(s) ID Date Data Source [id number] 04/09/2020 11:42:00 AM EST [facility] 1 Clinical Report - Physicians/Mid Levels [facility] Emergency Department [address] [place] [address] Phone #: ext- [phone] 04/09/2020 11:33 Patient: [...] Disease. 2 Clinical Report - Physicians/Mid Levels [facility] Emergency Department [address] [place] [address] Phone #: ext- [phone] 04/09/2020 11:33 Patient: DELONTE ZAMORANO Sex: Betsy [...] nystagmus. 3 Clinical Report - Physicians/Mid Levels [facility] Emergency Department [address] [place] [address] Phone #: [phone] ces- [phone] 04/09/2020 11:33 Patient: DELONTE ZAMORANO Sex: M [...] Interpretation time: 12:.Chest X-ray: (Kate cabrera Brian - 04/09/2020 12:28:03 PM No acute disease). The [...] (Reference) 4 Clinical Report - Physicians/Mid Levels [facility] Emergency Department [address] [place] [address] Phone #: ext- [phone] 04/09/2020 11:33 Patient: [...] NOT INDICATEDFibrinogen Level: (PORTIA: 04/09/2020 12:38) ( [facility] 04/09/2020 13:42) Final results Test Result Flag Units (Reference) FIBRINOGEN 285.0 mg/dL (179 - 506)PT/INR: (PORTIA: 04/09/2020 12:38) ( [facility] 04/09/2020 12:42) CanceledPT/PTT: (PORTIA: 04/09/2020 12:38) ( [facility] 04/09/2020 13:42) Final results Test Result Flag Units (Reference) PROTIME 12.7 SECONDS (11.0 - 15.5) INR 0.91 L (0.93 - 1.23) PTT 28.5 SECONDS (24.8 - 36.7) \\BLDo\\INR INTERPRETATION\\BLDx\\ Therapeutic range for Coumadin andrelated oral anticoagulants. -International Normalized Ratio (INR): 2.0 - 3.0 for VenousThrombosis, Pulmonary Embolus, Tissue heart valves, Acute VA Atrial Fibrillation, Valvular heart diseaseand recurrent Systemic Embolism. -International Normalized Ratio (INR): 2.5 - 3.5 forMechanical Prosthetic valve.Venous Blood Gas: (PORTIA: 04/09/2020 12:38) ( [facility] 04/09/2020 12:53) Final results Test Result [...] 85.0) 5 Clinical Report - Physicians/Mid Levels [facility] Emergency Department [address] [place] [address] Phone #: ext- [phone] 04/09/2020 11:33 Patient: DEOLNTE ZAMORANO Sex: M : 1985 Age: 34y.PROGRESS [...] discussed the case with DR Duffy at [facility] who accepted the patient 15:35 04/09/20. patient [...] to transfer explained to patient. Transferred to [facility]. 14:06 14:06. UTI (catheter associated) was [...] 04/10/2020 05:18) 6Clinical Report - Physicians/Mid Levels [facility] Emergency Department [address] [place] [address] Phone #: ext- [phone] 04/09/2020 11:33 Patient: DELONTE ZAMORANO Sex: M : 1985 Age: 34y Name Value Range Interpretation Code Description Data [facility] rce(s) Supporting Document(s) ID Date Data Source [id number] 04/09/2020 11:42:00 AM [facility] Addenda for DELONTE ZAMORANO VisitID: [id number] Date: 12:06blood culture positive for staph, results faxed to [facility](Electronically signed by Brinane Arcos RN - 04/11/2020 12:06)04/14/2020 13:52Previously already faxed to [facility] on 04/11/2020; Shown to Niurka CHAVEZ at 1352, okay with this, nofurther intervention required.(Electronically signed by Sandy Dimas R.N. 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 of art+QA9LqS6YwJF1ec8+eOL0wt7z9pklUog5ujB0KL dJKRi2Xi30r+UpkM3PVBKbKyTTD5bYO1o67YMHjTy60S7OIv4KEvtt99srhyl3ChCx15A+jpkDcMtQHK t+32OMLz/RDV8gDnIIUZb4O7blUSch4JwnsN/Gjr1/1XHr/5P0NC0l60/ggW5dhFMdP67SnxiuinZv7H XBRIPyQzmZnsMHMtaVWPzNrSOMxCu+lL2PSs/e5afj HLS9zS4TN6Hov7Lmi0B8cSS5nxWvMoGAkfWawv8IEnHYcAt811BulVllZAtg4GfMwKKHv+KBiDQKbTo8 RPTKTp4xg1h9I8OtFhBe/W0ksUusHjhmDFMrtHZRVZJ2pOWDWAmHBmHV1QC9eWAnRVrpMFlDQy78tYj5 dCc6WaDTflpCo7QtNRvH0BY/UFleJM9aVh2LRr4Neb 0F/6a67HlJ9YA/Carbon Furnace Operator+LwPyrl51omyCagxLbGhiPc/Uvv0gnHHMuMiBXV0jvYjsJ4COS6eb0WzZDirMJOg [file] ICAgICAgICAgICAgICAgICAgICAgICAgICAgICAgICAgICAgICAgICAgICAgICAgICAgICAgICAgICAg CPVlUDSnTUDlOFGbVLDyDDLkRT8YYRVyXFNfBBSaFIWvBEFjFXJcYJDhGYKfPXNwNCIbQLUuLIOuLIZz ICAgICAgICAgICAgICAgICAgICAgICAgICAgICAgIC WpJUYbNQNtDOAyXXVbIYTsMCCuOIJfJINdNBOeAM2HGADsEREdUDSsPYUmDWIfYWZqSNObMXHmYEFsBF AgICAgICAgICAgICAgICAgICAgICAgICAgICAgICAgICAgICAgICAgICAgICAgICAgICAgICAgICAgIC YuTYSqAZZhHUItJC0LUICmLWPsTUUhSMHzUDZqZLUb ICAgICAgICAgICAgICAgICAgICAgICAgICAgICAgICAgICAgICAgICAgICAgICAgICAgICAgICAgICAg KTNeLCYfQLHwYIJoCKZvSLLnLIUeXV7KSMYuSNQtZQPlYOBdUSAkOAMmKBSdYLXkLCQvAPPeGYKaHCEc ICAgICAgICAgICAgICAgICAgICAgICAgICAgICAgIC OpPOZhPVVcBRToASQpMYQyXSLdHMQzBZAfRWRjEDOxKR2PHCNfVOWpZARfJPVpYXEwSHQrRKKfCMBdDV AgICAgICAgICAgICAgICAgICAgICAgICAgICAgICAgICAgICAgICAgICAgICAgICAgICAgICAgICAgIC QzJNFbUNOvHXPnPWMwZX0NQIQcKVIcPCTzFKZwGTMl ICAgICAgICAgICAgICAgICAgICAgICAgICAgICAgICAgICAgICAgICAgICAgICAgICAgICAgICAgICAg ZUVzLTKpZIGrJRXaMFBlGCUoGTZyQRRvPZ3TUJLaSUUtFMAdUEInQUNtNDBpKMHoELXqMIPbNVVlIAWt ICAgICAgICAgICAgICAgICAgICAgICAgICAgICAgIC QpQLJnSJHuTILoXXWnNCJoVWBhXDCrMBZqXUIkJNGaRCZfCL7EOSJgZORbEEGlQZDwTVJdIHNdXTJxVR AgICAgICAgICAgICAgICAgICAgICAgICAgICAgICAgICAgICAgICAgICAgICAgICAgICAgICAgICAgIC XfRRGdWBLfICKxXMJbASQnYD1CIQYxKNMlVVDoAPRt ICAgICAgICAgICAgICAgICAgICAgICAgICAgICAgICAgICAgICAgICAgICAgICAgICAgICAgICAgICAg HOBnMHIlAKNbGROoAIXxKEExSSIfQXAqTQPlHC6KCS29tLQxu4X7WWKbIA6lrqb/Bv4KGLshvrIsiMDd WT7NObYtNJ7jfv4GNzGaJO1xxy7GAFkXSgUnH7Q3bV LvOQXgQSHMMzMeX77fQJlsKx15UFwkMEFyPtSrVJn1Kx2XSkBjL2ahPZCbYhG0JPAfTtI8MUAhAoQ6AK WuGgTsPHRyWVOsJK3EDPShH973tlFdFI9DKw5YVhAoWH7ifu2ESggyQMFgEvrIBhw7CFmyWT1WpVRdsE MtSKWsXSJYDnMoW0lwn6ZcAwzpMCNGHLudCZ6Ms6Ey dCAxDQo+Fe1IGK2ez0GeNQpfAQHnBX4jft1ZVJkHAnUtC6RfdXufXKLuciW2nZKmPMP9PVBlvJ7blPYx MEQTpGHqQSJKXYMYIXJ5JFZuMT6bFLAoAOQzOvD8XUDMDL0TMKXvXDWkkJFxKCPeBMTGMJ9BVKelXZS6 QPTpwcNywWIzFZlpSK4KROCukuKkPhqzEQVJYOw+Pg 7RYH0br6UbEPxvLIBjJT7nxc3VJBnFYnSvS5U8hJWfU6I1XFtqBi8LEZKeKYCmHiRnQSBIVXsqFE8GBH 8yszW4CN8DpZZaCWMhURMgmLExKSv2V70auNEwDNdvHD7OVAX+Claudia+Nt8CLJLzMDBrJFXnHtBbDSEAZy AbU6RpS2OXi4ToR1QqRF70yBnrriSlANtmQT4OJO1f WMMuAZMTRS0ZtCTrzA9eyyYkWKFaKXGEJvVjS13hlCNbHGLdWWG6OJMsOr9ZPFEwO0SlfgOqwQhfdhNb FPEwOJQQGM4HZJveigKorYRigIeqOY73rYsmRX1LWo3IYvXoLV6awb1YsKLvNx7YSRLzUM5WLCEaBIMi MGSmRZQ0CZQoBcKaHLzuRBJuGYCgDKG4LAYlYXLcPV 5FItQxJORmClQ4XOovMKLfADEcqk9QSRVaPJUtBmB2VhLyEFPpWVWaTNvaUAQdNRNuVRI0VQZpZHCsAE 4YLeKfYJXeRVV9ZadjNZXfKGOgoz5MPPTyYTDuRxudCyRpZHObXDHfSTqaDCTlFXJ7GSVbCDAjVCGuYV 0VWlNlGZVpVSbgZaAdWAOxHZEwgm6PUNAeXKYrDFz1 MOSlADMuHPKhRPnnXXAgUATfCZQ6UIYeXSMaSU7QAhHfEMKyKDOeGOnsQLBhANFawt9VRCOtGUQqJILy HqLvPLBgWLLfAFkpWPLbODZ6GGBhVFSgBZUiLZ1BDhRoAERpYQS1RmWgHJVeLPJicr6GGUSfLAEiPUo3 WwYcHNExJLSrIIbrCIMdYTZ6PYEgORCzJOEsZF0DCe CxZATfFWahVQVwAFBgBMBdag3UJWJkETDvNsF2NhRjAUYeXGDeLDokOZEzTAM2EXk8IFMcCPHiQD5TTh DmPTZlHqk1CLWuXTSrZJLsjn0PRQVdSBLyNRWqLRNeZJVyZGNzLEyiVTXqWMD4BbLmSQFkUYLcWE6EHo YqWRVgLty8TKedDANwJKRbdf2IJJMyMEIfPEDcBBUh CYNhMZZoOKztFFGeNZZaDgR0FESoKCOvQF7INxUaVDVeJlT3FWEgZOKgDUJjio9FVEXsGDCjSQFuDkTn UXYpHEAbYJqlIQCcOXBzZjsbWGPkEYOjLO6GUfPhBPKqFdU0BVQgDRKvLBGbij8IRRClBTNvNqa1SWIc FCYoSOZpQEw5ysBqeOSwVAl4JJ3NQ7IzadFiWwZVVr 6Vu146GGVjBYFnSu5JT5riSe9rNIJcJCRKQd4ZXVk6MzM5ZYV1SfZiOCuuYRLwYaluSBJxX6A5MDApJ9 MxMjg+DIofZkb5PUncWHRzQTU0QBIlBEEqGdYvFoSkWCRfBiTiSL7sSESJXr4+DQpzdGFydHhyZWYNCj BmNNP2VEffALMITy1K ID Date Data Source [id number] 04/12/2020 10:05:00 AM EST [facility] [address] [place] [address] PHONE: [phone] FAX: [phone] Name .................. : ZAMORANO DELONTE M Acct Number.................. : [id number] ROOM. ................. : VT-01 MR Number ................... : [id number] Stay type ............. : E/R Discharge Date......... ... : 04/09/20 Admit Date ......... : 04/09/20 Admit Phys .................... : CHANLIECCO Date of ....... : 1985 Family Phys ................... : ALEX KEANE Phone .................. : [phone] Age ................................ : 34 Film# .................. .:[id number] Sex ................................. : M Unsigned transcriptions are preliminary reports and do not represent a medical or legal document CHEST PORTABLE [id number] COMPLETE:04/09/20 19:10 MADHAV 5645 Reason(s): stroke PORTABLE CHEST X-RAY: INDICATION: Stroke symptoms. COMPARISON: 03/29/20 FINDINGS: The cardiac and mediastinal silhouettes appear normal and the lungs are clear. The bones and soft tissues are normal. The upper abdomen is unremarkable. IMPRESSION: No acute disease identifiable. Electronically Reviewed and Signed By Yusuf Love MD , 04/12/20 10:05, PERFECTO Transcribe Initials: DZ , Transcribe Date: 04/10/20 05:53, Dictation Date: Copy for: 710 MED REC DISCHARGED Page 1 of 1 Name Value Range Interpretation Code Description Data Adriana rce(s) Supporting Document(s) ID Date Data Source [id number] 04/12/2020 10:05:00 AM EST [facility] [address] [place] [address] PHONE: [phone] FAX: [phone] Name .................. : JAUN Meyer Acct Number.................. : [id number] ROOM. ................. : VT-01 Number ................... : [id number] Stay type ............. : E/R Discharge Date......... ... : 04/09/20 Admit Date ......... : 04/09/20 Admit Phys .................... : [facility] Date of ....... : 1985 Family Phys ................... : ALEX KEANE Phone .................. : [phone] Age ................................ : 34 Film# .................. .:[id number] Sex ................................. : M Unsigned transcriptions are preliminary reports and do not represent a medical or legal document CT HEAD(STROKE PROTOCOL) W/O [id number] COMPLETE:04/09/20 15:38 RLB 5646 Reason(s): left sided [...] imperative reconstructive techniques. Page 1 of 2 [place] [address] PHONE: [phone] FAX: [phone] Name .................. : JAUN MCNEIL Betsy Acct Number.................. : [id number] ROOM. ................. : VT- Number ................... : [id number] Stay type ............. : E/R Discharge Date......... ... : 04/09/20 Admit Date ......... : 04/09/20 Admit Phys .................... : ALICIA Date of ....... : 1985 Family Phys ................... : ALEX KEANE Phone .................. : [phone] Age ................................ : 34 Film# .................. .:[id number] Sex ................................. : M Unsigned transcriptions are preliminary reports and do not represent a medical or legal document CT HEAD(STROKE PRO TOCOL) W/O [id number] COMPLETE:04/09/20 15:38 RLB 5646 Reason(s): left sided weakness and numbness CT dose: 864.3 mGycm Electronically Reviewed and Signed By Yusuf Love MD , 04/12/20 10:05, PERFECTO Transcribe Initials: MELANIE , Transcribe Date: 04/10/20 05:49, Dictation Date: Copy for: 710 MED REC DISCHARGED Page 2 of 2 Name Value Range Interpretation Code Description Data Adriana rce(s) Supporting Document(s) ID Date Data Source [id number] 04/12/2020 10:04:00 AM EST [facility] [address] [place] [address] PHONE: [phone] FAX: [phone] Name .................. : JAUN Meyer Acct Number.................. : [id number] ROOM. ................. : VT-01 MR Number ................... : [id number] Stay type ............. : E/R Discharge Date......... ... : 04/09/20 Admit Date ......... : 04/09/20 Admit Phys .................... : CHANLIECCO Date of ....... : 1985 Family Phys ................... : JOHNSON DIYA Phone .................. : [phone] Age ................................ : 34 Film# .................. .:[id number] Sex ................................. : M Unsigned transcriptions are preliminary reports and do not represent a medical or legal document MRI BRAIN W/O CONTRAST [id number] COMPLETE:04/09/20 15:16 [facility] 5650 Reason(s): left sided weakness. possible stroke [...] 23:48, Dictation Date: Page 1 of 2 [facility] [address] [facility] [place] [address] PHONE: [phone] FAX: [phone] Name .................. : JAUN Meyer Acct Number.................. : [id number] ROOM. ................. : VT-01 MR Number ................... : [id number] Stay type ............. : E/R Discharge Date......... ... : 04/09/20 Admit Date ......... : 04/09/20 Admit Phys .................... : ALICIA Date of ....... : 1985 Family Phys ................... : ALEX DIYA Phone .................. : [phone] Age ................................ : 34 Film# .................. .:[id number] Sex ................................. : M Unsigned transcriptions are preliminary reports and do not represent a medical or legal document MRI BRAIN W/O CONTRAST [id number] COMPLETE:04/09/20 15:16 [facility] 5650 Reason(s): left sided weakness. possible stroke Copy for: 710 MED REC DISCHARGED Page 2 of 2 Name Value Range Interpretation Code Description Data Adriana rce(s) Supporting Document(s) ID Date Data Source [id number] 04/12/2020 06:13:49 AM [facility] Name Value Range Interpretation Code Description Data Adriana rce(s) Supporting Document(s) Leukocytes [#/volume] in Blood by Automated count 19.6 10*3/uL 4-10 [facility] Erythrocytes [#/volume] in Blood by Automated count 4.76 10*6/uL 4.6- 6.1 [facility] Hemoglobin [Mass/volume] in Blood 14.6 g/dL 13.5-18 [facility] Hematocrit [Volume Fraction] of Blood by Automated count 42.4 % 4 1-53 [facility] Erythrocyte mean corpuscular volume [Entitic volume] by Auto mated count 89.1 fL 80-96 [facility] Erythrocyte mean corpuscular hemoglobin [Entitic mass] by Automated count 30.7 pg 27-33 [facility] Erythrocyte mean corpuscular hemoglobin concentration [Mass/volume] by Automated count 34.5 g/dL 32.0-36.0 [facility] distribution width [Ratio] by Automated count 14.1 % 11.5-14.5 [facility] Platelets [#/volume] in Blood by Automated count 399 10*3/uL 150-400 [facility] Differential cell count method - Blood [facility] Neutrophils/100 leukocytes in Blood by Automated count 84 % [facility] Lymphocytes/100 leukocytes in Blood by Automated count 9 % [facility] Monocytes/100 leukocytes in Blood by Automated count 6 % [facility] Eosinophils/100 leukocytes in Blood by Automated count 0 % [facility] Basophils/100 leukocytes in Blood by Automated count 1 % [facility] Neutrophils [#/volume] in Blood by Automated count 16.56 10*3/uL 1.8- 7.0 [facility] Lymphocytes [#/volume] in Blood by Automated count 1.76 10*3/uL 1.2-4 .0 [facility] Monocytes [#/volume] in Blood by Automated count 1.15 10*3/uL 0-0.8 [facility] Eosinophils [#/volume] in Blood by Automated count 0.04 10*3/uL 0-0.5 [facility] Basophils [#/volume] in Blood by Automated count 0.13 10*3/uL 0-0.2 [facility] Nucleated erythrocytes/100 leukocytes [Ratio] in Blood by Automated count 0 /100{WBCs} 0-0 [facility] ID Date Data Source [id number] 04/12/2020 10:03:53 AM [facility] Name Value Range Interpretation Code Description Data Adriana rce(s) Supporting Document(s) Bicarbonate [Moles/volume] in Serum 23 mmol/L 22-29 [facility] Chloride [Moles/volume] in Serum or Plasma 102 mmol/L 98-107 [facility] Creatinine [Mass/volume] in Serum or Plasma 0.87 mg/dL 0.70-1.20 [facility] Glucose [Mass/volume] in Serum or Plasma 140 mg/dL 70-140 [facility] Potassium [Moles/volume] in Serum or Plasma 4.8 mmol/L 3.4-5.1 [facility] Sodium [Moles/volume] in Serum or Plasma 136 mmol/L 136-145 [facility] Urea nitrogen [Mass/volume] in Serum or Plasma 16 mg/dL 6-20 [facility] Confirmed Anion gap 3 in Serum or Plasma 12 mmol/L 8-15 [facility] Osmolality of Serum or Plasma by calculation 285 mosm/kg 275-300 [facility] Confirmed Creatinine/Urea nitrogen [Mass Ratio] in Serum or Plasma 19 [facility] Confirmed Calcium [Mass/volume] in Serum or Plasma 9.4 mg/dL 8.6-10.0 [facility] Glomerular filtration rate/1.73 sq M pre dicted among non-blacks [Volume Rate/Area] in Serum or Plasma by Creatinine-based formula (MDRD) >6 0 [facility] Glomerular filtration rate/1.73 sq M pre dicted among blacks [Volume Rate/Area] in Serum or Plasma by Creatinine-based formula (MDRD) >60 [facility] ID Date Data Source [id number] 04/11/2020 01:44:57 PM [facility] MR CERVICAL SPINE WITH AND WITHOUT CONTR AST [id number] RESULT - FINALInterpreted by:Lele Menchaca MDAddendum BeginsSigned on SunApr 11, 2020 1:42 PM by Jose Maharaj MDAddended Findings were discussed with Dr. Hernandez by Dr. Maharaj via phone at 04/11/2020 1:42 PM.Addendum EndsMR CERVICAL SPINE WITH AND WITHOUT CONTRAST [id number] INDICATION: Evaluate for enhancing lesions, concern for [...] rce(s) Supporting Document(s) ID Date Data Source [id number] 04/11/2020 09:10:58 AM [facility] MR BRAIN WITH AND WITHOUT CONTRAST [id number] FINAL RESULTInterpreted by:Lele Menchaca MDClinical Indication: Evaluate [...] rce(s) Supporting Document(s) ID Date Data Source [id number] 04/10/2020 08:49:17 PM [facility] Name Value Range Interpretation Code Description Data Adriana rce(s) Supporting Document(s) History and Physical [facility] RTJEAh3vTpMUPnNc36/FVBeeLCYpo4XoQVjfSOm0BQmdDOMlR1SuFGB6sL2mUJM6JZuLJxUmGkToXqZ7 m [file] o7Z2RDdiAM6x/mMKj8ZFBvWYiPr8DFr6KUjk8k7m680S30t601AhGdG/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+xvug [file] AgICAgICAgICAgICAgICAgICAgICAgICAgICAgICAg ICAgICAgICAgICAgICAgICAgICAgICAgICAgICAgICAgICAgICANCiAgICAgICAgICAgICAgICAgICAg ICAgICAgICAgICAgICAgICAgICAgICAgICAgICAgICAgICAgICAgICAgICAgICAgICAgICAgICAgICAg ICAgICAgICAgICAgICAgICAgICANCiAgICAgICAgIC AgICAgICAgICAgICAgICAgICAgICAgICAgICAgICAgICAgICAgICAgICAgICAgICAgICAgICAgICAgIC AgICAgICAgICAgICAgICAgICAgICAgICAgICAgICANCiAgICAgICAgICAgICAgICAgICAgICAgICAgIC AgICAgICAgICAgICAgICAgICAgICAgICAgICAgICAg ICAgICAgICAgICAgICAgICAgICAgICAgICAgICAgICAgICAgICAgICANCiAgICAgICAgICAgICAgICAg ICAgICAgICAgICAgICAgICAgICAgICAgICAgICAgICAgICAgICAgICAgICAgICAgICAgICAgICAgICAg ICAgICAgICAgICAgICAgICAgICAgICANCiAgICAgIC AgICAgICAgICAgICAgICAgICAgICAgICAgICAgICAgICAgICAgICAgICAgICAgICAgICAgICAgICAgIC AgICAgICAgICAgICAgICAgICAgICAgICAgICAgICAgICANCiAgICAgICAgICAgICAgICAgICAgICAgIC AgICAgICAgICAgICAgICAgICAgICAgICAgICAgICAg ICAgICAgICAgICAgICAgICAgICAgICAgICAgICAgICAgICAgICAgICAgICANCiAgICAgICAgICAgICAg ICAgICAgICAgICAgICAgICAgICAgICAgICAgICAgICAgICAgICAgICAgICAgICAgICAgICAgICAgICAg ICAgICAgICAgICAgICAgICAgICAgICAgICANCiAgIC AgICAgICAgICAgICAgICAgICAgICAgICAgICAgICAgICAgICAgICAgICAgICAgICAgICAgICAgICAgIC AgICAgICAgICAgICAgICAgICAgICAgICAgICAgICAgICAgICANCiAgICAgICAgICAgICAgICAgICAgIC AgICAgICAgICAgICAgICAgICAgICAgICAgICAgICAg ICAgICAgICAgICAgICAgICAgICAgICAgICAgICAgICAgICAgICAgICAgICAgICANCjw/nQHpC5okvXFx ziO0H7ocQh4XMw6QOP9kv7EwGXDaCJekefFuDycECwAxLTJqHhlABhy0OEcgVG7GyNVvK5RdA2WjWMjg FK9QWODgHGXvzSDhJDAwMREcNjP0BHRcMVhcQS6DkK QtKGxwUPCvLKFcYeGhVTReUYNaWIDRAMTvJCMdEuLiLATvRXQlQZQdGGIUBMZ4YDWgSkQqDQwmTX2Ie2 FkuIL6GAj+Bh3ZPO2du5PgNWptMTPsYN3hdj3NECpAFsXlY8OkifT5LYG0KWDvOp5XLIXhZJPdqSGhRH VcEKRRTxHzI7DyjZ61HWIABm8+DQplbmRvYmoNCjM5 KLLue8YqYYz0TY1FZMXhJHk9qXYcCSPSILY1PNRuocacrILYei1wPRBDRHHunEIzYpJfVkLcMULsNvbi FPWGEOxLThLpO6Vfr1PvMiN5EQPrCpXlNDlzZKVaHmL4DP88fSfhWC4QEWAaMEVtHN46GBO2LQCjNr6K Iy7ICrCyOD0jus4JZJGwLO1xli0JISnCMnPzM7T3dB EuJ4Rebf71WX4IhML4xGJlVB2QtK1sTM8Gu2UbTCXxWlCySQVmQWRmBKBoHQYdBbBrOE7VZSXqCqQspQ PxRHF6SVBkKZAtODLyCvI2MWMEYfUsC3KkYAimQlXgVLFMXE0CJnjgBADyP8BKVXsTTN8RH1qXY3NKKa 1AYS7VBFNPJ2cYR3kGG5fDVMohMW7WSHByRT7+IA0K Vv5TObPuQN1dbo3ZCPLeUCIvRxvDImv2NNwfBN0DcBFfL6HtdUUlw6vTPpNsX5HXEXI8CIEhMe3UKLSf EkVoYYHaMFjlVR8tPRWpUTHHhNeyvgI9WS3FWA9mdtTdSH4VKpUrYd5dWl0PXnQgB8TdL6BxQAAmAUEF FJotEF2USVruIK7hGC8Fm2QOoHWedQ2oeb3MAHCzFA MhFaawkt2YUvwbT2W6wBiyABUsIvznAQRANXrwAS6KCQWfWQB8CSWhSzNbNAXWXyUqV13qAL9FK3Jzd8 2xXfE8XJRyNgWjFUriHK44sWxzmlHvyRJsbJckBF2ZTi4+DQplbmRvYmoNCnhyZWYNCjAgNDENCjAwMD JcQDCoPXRlEbJ0WeEkCw8YKWRfASJcRBGbBkNwWOBk VAQtEJehDEGzNKL5GyT0UHQfDZMkSH4GJrZdLLYdZXb0NXIwNXLqWXOfcq3EUSOdZNJoCSV0YxBkNYAg IRCkEYqnYWLrWPHbDeK3UQXwYRCsGL2UVlRvSHOvVUK1AWinVSCpSWRwsx0SWWQwODSkVoNqPnJnVNLi DBNjKQxvHETqLKU3SDQ2KOMtVWJaJW4ZTkJjBNPfFK ujAXFmJVUvXCLxyx2PRKFtTHBqCXt3DALcWTFdCIZbMBohSUYfYGRvNRh5EAKmZAVeKP5YLjXgMDKuQH E7WEqmQLKpHBDqvh6CGBIaIDVfGRgnZoLwYFFmZBBuKJqtUDCeEQS7COBkMVPuXMHeRF5XYiIjFDOcYA m2DOraZFLhBZJyxa4LWQLcOLMmNcN7EBLpYOJkFNXf CLxlFUZjIUSdYnT7KGXkVZCyLJ7QGrUjDEFqFuNwWXZkOWHjDOVqrq9MXEAlCGMgSkVhGvCnEVMhQLSg AMhwPWSkFKV5SJBdSUCmLAIgWW1VMqIkFDZrQzJ5THybEPWkSHYthe0QZGGkMIReXQl4HoWmSYEsAIDt RHuxZZUlSMI9MHWgZHEzDHQyBU0XVoCaDPGmHnVoVW KfOZLoWNWtcr3XQZVhMVCzKlT8FRQdLBSfJXBmGRxgFNRtPHF4QFZyKQRaHROdHP2FEaUwTYFhLuklIN ByDRQmFFEenx5HHIZaRZViDuQ0TZPdMDBaPLDyLEjaMIEfFPC7RJXbNMRkUECsOQ0PTrBgMIQpGmg6VZ sySUIwKJPhnt1RYRUdDUXmXDs8LMAeANAqNYWhGRme FJRaJCI4PYVqQOBvLAFmLU2DSxIaUPAfVCW7EVUgGZYqRYLoog3JOJAoTTF3WyW1VAUuZFHpMUZnNPla IXShXDT1DNUqPCPhGBVrEP9BOsQoZXPqRMe8SRgqFEJeQPCasf1RDMLsCMK5LFK5QUTwUEYhJBDlJSpw OAUtEHX4AqC1INXmBSViDR7MHtFjCJAmALp7FWPhHO ZtKULarl8XABYmKGB1VMPjYhGvZQGiZMSfWCr6zaPquYZfUEc3PD4BG5AdflGrDPFJPd1Mz020HSQtTP TuNy2LP1zoWy7vYUDsGGULMd3JAKk3YUQoTlT0ERG9LBC2OJE9LmA0YabgPpS9ZZD6IaL8WXg+IDw1YW I9JLW8Rzh2SypyMLTcXes7DZU7MqZ2LSAvVQG6RD2h XSANCj4+WSsndOSexEijYCGXNdMbTfZmHWoaWNRXPu1E ID Date Data Source [id number] 04/10/2020 09:02:47 PM [facility] Name Value Range Interpretation Code Description Data Adriana rce(s) Supporting Document(s) HIV 1+2 Ab+HIV1 p24 Ag [Presence] in Serum or Plasma by Immu noassay Non Reactive [facility] Negative for HIV-1 p24 antigenand HIV-1/ HIV-2 antibodies. Nolaboratory evidence of HIVinfection. ID Date Data Source [id number] 04/10/2020 09:09:50 PM [facility] Name Value Range Interpretation Code Description Data Adriana rce(s) Supporting Document(s) Hepatitis A virus IgM Ab [Presence] in Serum or Plasma by Im munoassay Non Reactive [facility] No acute infection, susceptible to infec tion. Hepatitis B virus core IgM Ab [Presence] in Serum or Plasma by Immunoassay Non Reactive [facility] IgM antibodies to HBc were not detected, does not exclude the possibility of exposure to HBV. Hepatitis C virus Ab [Presence] in Serum or Plasma by Immuno assay Non Reactive [facility] No serological evidence of active infect ion. If recent exposure is suspected, test for HCV RNA. Hepatitis B virus surface Ag [Presence] in Serum or Plasma b y Immunoassay Non Reactive [facility] No active or previous infection. Suscept ible to infection. ID Date Data Source [id number] 04/10/2020 09:09:50 PM [facility] Value Range Interpretation Code Description Data Adriana rce(s) Supporting Document(s) Treponema pallidum Ab [Presence] in Serum Non Reactive [facility] ID Date Data Source [id number] 04/10/2020 09:09:50 PM [facility] Value Range Interpretation Code Description Data Adriana rce(s) Supporting Document(s) Folate [Mass/volume] in Serum or Plasma 5.97 ng/mL >4.77 [facility] ID Date Data Source [id number] 04/10/2020 09:09:50 PM [facility] Value Range Interpretation Code Description Data Adriana rce(s) Supporting Document(s) Calcidiol [Mass/volume] in Serum or Plasma 16 ng/mL >30 L [facility] ID Date Data Source [id number] 04/10/2020 09:36:16 PM [facility] Value Range Interpretation Code Description Data Adriana rce(s) Supporting Document(s) Borrelia burgdorferi IgG Ab [Presence] in Serum by Immunoassay Negative [facility] Borrelia burgdorferi IgM Ab [Presence] in Serum by Immunoassay Negative [facility] ID Date Data Source [id number] 04/10/2020 10:43:17 PM [facility] Value Range Interpretation Code Description Data Adriana rce(s) Supporting Document(s) Hepatitis B virus surface Ab [Units/volume] in Serum or Plas ma by Immunoassay >11.4 [facility] ReactiveImmunity due to hepatitis B immu nization or natural infection. ID Date Data Source [id number] 04/12/2020 09:27:43 AM [facility] Name Value Range Interpretation Code Description Data Adriana rce(s) Supporting Document(s) Riad-5-Ndnexppicpcu IgA <[facility] ID Date Data Source [id number] 04/12/2020 09:27:43 AM [facility] Value Range Interpretation Code Description Data Adriana rce(s) Supporting Document(s) Anticardiolipin IgA 3.2 CU <20 [facility] Negative ID Date Data Source [id number] 04/12/2020 12:40:18 PM [facility] Value Range Interpretation Code Description Data Adriana rce(s) Supporting Document(s) Neutrophil cytoplasmic Ab [Presence] in Serum by Immunofluoresce nce Negative [facility] ID Date Data Source [id number] 04/12/2020 01:09:29 PM [facility] Value Range Interpretation Code Description Data Dariana rce(s) Supporting Document(s) Nuclear Ab Pattern Homogenous [Titer] in Serum <80 [facility] Nuclear Ab pattern.speckled [Titer] in Serum 80 1/dil <80 H [facility] Nuclear Ab pattern.rim [Titer] in Serum <80 [facility] Nuclear Ab pattern.nucleolar [Titer] in Serum <80 [facility] ID Date Data Source [id number] 04/12/2020 01:20:06 PM [facility] Value Range Interpretation Code Description Data Adriana rce(s) Supporting Document(s) Sjogrens syndrome-A extractable nuclear Ab [Units/volume] in Serum by Immunofluorescence 13 [AU]/mL [address] [place] [address] Sjogrens syndrome-B extractable nuclear Ab [Units/volume] in Serum by Immunofluorescence 8 [AU]/mL [address] [place] [address] Field extractable nuclear Ab [Units/volume] in Serum b y Immunofluorescence 11 [AU]/mL 099 [facility] Ribonucleoprotein extractable nuclear Ab [Units/volume] in Serum by Immunofluorescence 17 U/ML [address] [place] [address] SCL-70 extractable nuclear Ab [Units/volume] in Serum 9 [AU]/mL [address] [place] [address] Haley-1 extractable nuclear Ab [Units/volume] in Serum by Immunofluorescence 25 [AU]/mL -[address] [place] [address] DNA double strand Ab [Units/volume] in Serum by Immunofluore scence 0 [IU]/mL [address] [place] [address] Centromere Ab [Units/volume] in Serum 13 [AU]/mL [address] [place] [address] Histone IgG Ab [Units/volume] in Serum 12 [AU]/mL [address] [place] [address] ID Date Data Source [id number] 04/12/2020 02:44:51 PM [facility] Value Range Interpretation Code Description Data Adriana rce(s) Supporting Document(s) Protein [Mass/volume] in Serum or Plasma 7.2 g/dL 6.4-8.3 [facility] Albumin [Mass/volume] in Serum or Plasma by Electrophoresis 4.98 g/dL 3.80-5.78 [facility] Alpha 1 globulin [Mass/volume] in Serum or Plasma by Electro phoresis 0.15 g/dL 0.08-0.23 [facility] Alpha 2 globulin [Mass/volume] in Serum or Plasma by Electro phoresis 0.61 g/dL 0.45-0.92 [facility] Beta globulin [Mass/volume] in Serum or Plasma by Electropho resis 0.73 g/dL 0.50-1.03 [facility] Gamma globulin [Mass/volume] in Serum or Plasma by Electroph oresis 0.72 g/dL 0.54-1.30 [facility] Protein.monoclonal [Mass/volume] in Serum or Plasma by Electrophoresi s 0 [facility] Normally migrating gamma globulins Pathologist name [facility] ID Date Data Source [id number] 04/13/2020 11:18:24 AM [facility] Value Range Interpretation Code Description Data Adriana rce(s) Supporting Document(s) Varicella zoster virus IgG Ab [Presence] in Serum by Immunoassay 4. 32 {ISR} [facility] PositiveIndicates presence of detectable IgGantibody to Varicella-Zoster Virus bythe JORDY test. Indicative of current orprevious infection. ID Date Data Source [id number] 04/13/2020 12:35:52 PM [facility] Value Range Interpretation Code Description Data Adriana rce(s) Supporting Document(s) Cardiolipin IgG Ab [Interpretation] in Serum 10.2 U/mL <20.0 [facility] Negative results do not rule out Antipho spholipid syndrome. Additional APL testing should be considered. ID Date Data Source [id number] 04/13/2020 12:35:52 PM [facility] Value Range Interpretation Code Description Data Adriana rce(s) Supporting Document(s) Cardiolipin IgM Ab [Interpretation] in Serum 1.0 U/mL <20.0 [facility] Negative results do not rule out Antipho spholipid syndrome. Additional APL testing should be considered. ID Date Data Source [id number] 04/13/2020 02:09:08 PM [facility] Value Range Interpretation Code Description Data Adriana rce(s) Supporting Document(s) Angiotensin converting enzyme [Enzymatic activity/volu me] in Serum or Plasma 15 U/L 14-82 [facility] (NOTE)Performed At: RN [facility] [address] [id number] Morejon MD Ph:[phone] ID Date Data Source [id number] 04/16/2020 10:41:34 AM [facility] Value Range Interpretation Code Description Data Adriana rce(s) Supporting Document(s) Aquaporin 4 receptor IgG Ab [Presence] in Serum or Plasma Negative [facility] (NOTE)Recommend repeat testing in 6 [facility] hs if clinical suspicion is high. Negative result can occur in the setting of immunosuppression. ADDITIONAL INFORMATION This test was developed and its performance characteristics determined by [facility] in a manner consistent with CLIA requirements. This test has not been cleared or approved by the U.S. Food and Drug Administration.Test Performed by:[address] [address] Director: Jerry Morse M.D. Ph.D.; CLIA# [id number] ID Date Data Source [id number] 04/17/2020 07:05:55 PM [facility] Value Range Interpretation Code Description Data Adriana rce(s) Supporting Document(s) Methylmalonate [Moles/volume] in Serum or Plasma 173 nmol/L 0-378 [facility] Disclaimer [facility] (NOTE)This test was developed and its pe rformance characteristicsdetermined by [facility]. It has not been cleared or approvedby the Food and Drug Administration.Performed At: [facility] [address] [place], [place] [id number] Martin MD Ph:[phone] ID Date Data Source [id number] 04/21/2020 02:08:19 PM EDT [facility] Name Value Range Interpretation Code Description Data Adriana rce(s) Supporting Document(s) Index Value 3.39 [facility] HERB virus Ab [Presence] in Serum or Plasma by Immunoassay A [facility] (NOTE)Index interpretive criteria: <0.20 negative 0.20-0.40 indeterminate >0.40 positiveTesting not performedComment(NOTE)Positive: Antibodies to HERB virus (JCV) detected indicating the patient has been exposed to JCV at an undetermined timeNegative: Antibodies to JCV not detectedPerformed At: [facility] [id number] [facility] Hospitaldickson CarballoBUFFALO, [place] [id number] Jon M MD Ph:[phone] At: [facility] [id number] Morejon MD Ph:[phone](NOTE)Negative: Antibodies to JCV not detected.Inde terminate: Low [...] as measured by anti-JCV antibodyindex.1 .1TYSABRI (natalizumab) US Prescribing Information. ID Date Data Source [id number] 04/10/2020 06:38:36 PM [facility] Value Range Interpretation Code Description Data Adriana rce(s) Supporting Document(s) Homocysteine [Moles/volume] in Serum or Plasma 58.1 umol/L <15.0 H [facility] HemolyzedConfirmed ID Date Data Source [id number] 04/10/2020 09:06:17 PM [facility] Value Range Interpretation Code Description Data Adriana rce(s) Supporting Document(s) C reactive protein [Mass/volume] in Serum or Plasma <8.0 [facility] ID Date Data Source [id number] 04/10/2020 09:06:17 PM [facility] Value Range Interpretation Code Description Data Adriana rce(s) Supporting Document(s) Cobalamin (Vitamin B12) [Mass/volume] in Serum or Plasma 353 pg/ml 2 11-946 [facility] ID Date Data Source [id number] 04/10/2020 09:06:17 PM [facility] Value Range Interpretation Code Description Data Adriana rce(s) Supporting Document(s) IgG [Mass/volume] in Serum or Plasma 1079 mg/dL 700-1600 [facility] IgA [Mass/volume] in Serum or Plasma 266 mg/dL 70-400 [facility] IgM [Mass/volume] in Serum or Plasma 108 mg/dL 30-230 [facility] ID Date Data Source [id number] 04/10/2020 09:06:17 PM [facility] Value Range Interpretation Code Description Data Adriana rce(s) Supporting Document(s) Albumin [Mass/volume] in Serum or Plasma by Bromocresol green (BCG) dye binding method 5.0 g/dL 3.5-5.2 [facility] Bilirubin.total [Mass/volume] in Serum or Plasma 0.7 mg/dL <1.2 [facility] Bilirubin.direct [Mass/volume] in Serum or Plasma <0.3 [facility] Alkaline phosphatase [Enzymatic activity/volume] in Serum or Plasma 83 U/L 40-129 [facility] Aspartate aminotransferase [Enzymatic activity/volume] in Serum or Plasma 13 U/L <40 [facility] Alanine aminotransferase [Enzymatic activity/volume] in Seru m or Plasma 23 U/L <41 [facility] Protein [Mass/volume] in Serum or Plasma 7.7 g/dL 6.4-8.3 [facility] ID Date Data Source [id number] 04/12/2020 12:28:03 PM [facility] Value Range Interpretation Code Description Data Adriana rce(s) Supporting Document(s) Lupus anticoagulant neutralization plate let [Time] in Platelet poor plasma by Coagulation assay 7.7 sec <8.0 [facility] ID Date Data Source [id number] 04/10/2020 01:53:[address] [facility] [address] [place] [address] RESPIRATORY CARE REPORT ==== ---------NAME------- NUMBER SEX AGE ADMIT DISC. XRAY# F/C TYPEMURPHY DELONTE M [id number] M [id number] 04/09/20 04/09/20 [id number] X6B E/R DATE OF : 1985 M/R# [id number] #: [id number] VT-01 LOCATION: [facility] [address] COMPLETE:04/09/20 1 5:44 45555 PHYSICIAN: ALICIA Name Value Range Interpretation Code Description Data Adriana rce(s) Supporting Document(s) ID Date Data Source [id number] 04/10/2020 08:45:00 AM [facility] Name Value Range Interpretation Code Description Data Adriana rce(s) Supporting Document(s) [facility] [id number] [file] [id number] ID Date Data Source [id number] 04/10/2020 03:48:39 AM EST [facility] Name Value Range Interpretation Code Description Data Adriana rce(s) Supporting Document(s) Leukocytes [#/volume] in Blood by Automated count 6.9 10*3/uL 4-10 [facility] Erythrocytes [#/volume] in Blood by Automated count 4.51 10*6/uL 4.6- 6.1 L [facility] Hemoglobin [Mass/volume] in Blood 13.7 g/dL 13.5-18 [facility] Hematocrit [Volume Fraction] of Blood by Automated count 39.9 % 4 1-53 L [facility] Erythrocyte mean corpuscular volume [Entitic volume] by Auto mated count 88.4 fL 80-96 [facility] Erythrocyte mean corpuscular hemoglobin [Entitic mass] by Automated count 30.5 pg 27-33 [facility] Erythrocyte mean corpuscular hemoglobin concentration [Mass/volume] by Automated count 34.5 g/dL 32.0-36.0 [facility] Erythrocyte distribution width [Ratio] by Automated count 13.7 % 11.5-14.5 [facility] Platelets [#/volume] in Blood by Automated count 355 10*3/uL 150-400 [facility] Differential cell count method - Blood [facility] Neutrophils/100 leukocytes in Blood by Automated count 45 % [facility] Lymphocytes/100 leukocytes in Blood by Automated count 41 % [facility] Monocytes/100 leukocytes in Blood by Automated count 10 % [facility] Eosinophils/100 leukocytes in Blood by Automated count 4 % [facility] Basophils/100 leukocytes in Blood by Automated count 0 % [facility] Neutrophils [#/volume] in Blood by Automated count 3.08 10*3/uL 1.8-7 .0 [facility] Lymphocytes [#/volume] in Blood by Automated count 2.83 10*3/uL 1.2-4 .0 [facility] Monocytes [#/volume] in Blood by Automated count 0.68 10*3/uL 0-0.8 [facility] Eosinophils [#/volume] in Blood by Automated count 0.28 10*3/uL 0-0.5 [facility] Basophils [#/volume] in Blood by Automated count 0.01 10*3/uL 0-0.2 [facility] Nucleated erythrocytes/100 leukocytes [Ratio] in Blood by Automated count 0 /100{WBCs} 0-0 [facility] ID Date Data Source [id number] 04/10/2020 04:09:13 AM [facility] Name Value Range Interpretation Code Description Data Adriana rce(s) Supporting Document(s) Bicarbonate [Moles/volume] in Serum 23 mmol/L 22-29 [facility] Chloride [Moles/volume] in Serum or Plasma 105 mmol/L 98-107 [facility] Creatinine [Mass/volume] in Serum or Plasma 0.87 mg/dL 0.70-1.20 [facility] Glucose [Mass/volume] in Serum or Plasma 89 mg/dL 70-140 [facility] Potassium [Moles/volume] in Serum or Plasma 3.9 mmol/L 3.4-5.1 [facility] Sodium [Moles/volume] in Serum or Plasma 138 mmol/L 136-145 [facility] Urea nitrogen [Mass/volume] in Serum or Plasma 10 mg/dL 6-20 [facility] Anion gap 3 in Serum or Plasma 10 mmol/L 8-15 [facility] Osmolality of Serum or Plasma by calculation 285 mosm/kg 275-300 [facility] Creatinine/Urea nitrogen [Mass Ratio] in Serum or Plasma 11 [facility] Calcium [Mass/volume] in Serum or Plasma 8.7 mg/dL 8.6-10.0 [facility] Glomerular filtration rate/1.73 sq M pre dicted among non-blacks [Volume Rate/Area] in Serum or Plasma by Creatinine-based formula (MDRD) >6 0 [facility] Glomerular filtration rate/1.73 sq M pre dicted among blacks [Volume Rate/Area] in Serum or Plasma by Creatinine-based formula (MDRD) >60 [facility] ID Date Data Source [id number] 04/09/2020 07:48:25 PM [facility] Name Value Range Interpretation Code Description Data Adriana rce(s) Supporting Document(s) Glucose [Mass/volume] in Capillary blood by Glucometer 98 mg/dL 70- 140 [facility] ID Date Data Source [id number] 04/09/2020 08:12:00 PM EST [facility] Name Value Range Interpretation Code Description Data Adriana rce(s) Supporting Document(s) Leukocytes [#/volume] in Blood by Automated count 8.5 10*3/uL 4-10 [facility] Erythrocytes [#/volume] in Blood by Automated count 4.96 10*6/uL 4.6- 6.1 [facility] Hemoglobin [Mass/volume] in Blood 15.2 g/dL 13.5-18 [facility] Hematocrit [Volume Fraction] of Blood by Automated count 44.3 % 4 1-53 [facility] Erythrocyte mean corpuscular volume [Entitic volume] by Auto mated count 89.3 fL 80-96 [facility] Erythrocyte mean corpuscular hemoglobin [Entitic mass] by Automated count 30.7 pg 27-33 [facility] Erythrocyte mean corpuscular hemoglobin concentration [Mass/volume] by Automated count 34.3 g/dL 32.0-36.0 [facility] Erythrocyte distribution width [Ratio] by Automated count 14.2 % 11.5-14.5 [facility] Platelets [#/volume] in Blood by Automated count 398 10*3/uL 150-400 [facility] Differential cell count method - Blood [facility] Neutrophils/100 leukocytes in Blood by Automated count 52 % [facility] Lymphocytes/100 leukocytes in Blood by Automated count 37 % [facility] Monocytes/100 leukocytes in Blood by Automated count 8 % [facility] Eosinophils/100 leukocytes in Blood by Automated count 2 % [facility] Basophils/100 leukocytes in Blood by Automated count 1 % [facility] Neutrophils [#/volume] in Blood by Automated count 4.43 10*3/uL 1.8-7 .0 [facility] Lymphocytes [#/volume] in Blood by Automated count 3.14 10*3/uL 1.2-4 .0 [facility] Monocytes [#/volume] in Blood by Automated count 0.69 10*3/uL 0-0.8 [facility] Eosinophils [#/volume] in Blood by Automated count 0.17 10*3/uL 0-0.5 [facility] Basophils [#/volume] in Blood by Automated count 0.06 10*3/uL 0-0.2 [facility] Nucleated erythrocytes/100 leukocytes [Ratio] in Blood by Automated count 0 /100{WBCs} 0-0 [facility] ID Date Data Source [id number] 04/09/2020 08:26:36 PM [facility] Name Value Range Interpretation Code Description Data Adriana rce(s) Supporting Document(s) Prothrombin time (PT) 13.3 s 12.5-14.9 [facility] INR in Platelet poor plasma by Coagulation assay 1.00 [facility] Routine intensity oral anticoagulation I NR is typically 2.0-3.0. Target INR must be clinically individualized. ID Date Data Source [id number] 04/09/2020 08:42:50 PM [facility] Name Value Range Interpretation Code Description Data Adriana rce(s) Supporting Document(s) Cholesterol [Mass/volume] in Serum or Plasma 169 mg/dL <200 [facility] Triglyceride [Mass/volume] in Serum or Plasma 157 mg/dL <150 H [facility] Cholesterol in HDL [Mass/volume] in Serum or Plasma 40 mg/dL >40 L [facility] Cholesterol in LDL [Mass/volume] in Serum or Plasma by calcu lation 98 mg/dL <100 [facility] Cholesterol in VLDL [Mass/volume] in Serum or Plasma by calc ulation 31 mg/dl 16-42 [facility] Cholesterol non HDL [Mass/volume] in Serum or Plasma 129 mg/dL <130 [facility] ID Date Data Source [id number] 04/09/2020 08:42:50 PM [facility] Value Range Interpretation Code Description Data Adriana rce(s) Supporting Document(s) Albumin [Mass/volume] in Serum or Plasma by Bromocresol green (BCG) dye binding method 4.5 g/dL 3.5-5.2 [facility] Bilirubin.total [Mass/volume] in Serum or Plasma 0.4 mg/dL <1.2 [facility] Calcium [Mass/volume] in Serum or Plasma 9.0 mg/dL 8.6-10.0 [facility] Chloride [Moles/volume] in Serum or Plasma 106 mmol/L 98-107 [facility] Creatinine [Mass/volume] in Serum or Plasma 0.87 mg/dL 0.70-1.20 [facility] Glucose [Mass/volume] in Serum or Plasma 89 mg/dL 70-140 [facility] Alkaline phosphatase [Enzymatic activity/volume] in Serum or Plasma 77 U/L 40-129 [facility] Potassium [Moles/volume] in Serum or Plasma 3.9 mmol/L 3.4-5.1 [facility] Protein [Mass/volume] in Serum or Plasma 7.0 g/dL 6.4-8.3 [facility] Sodium [Moles/volume] in Serum or Plasma 139 mmol/L 136-145 [facility] Aspartate aminotransferase [Enzymatic activity/volume] in Serum or Plasma 13 U/L <40 [facility] Urea nitrogen [Mass/volume] in Serum or Plasma 8 mg/dL 6-20 [facility] Osmolality of Serum or Plasma by calculation 286 mosm/kg 275-300 [facility] Creatinine/Urea nitrogen [Mass Ratio] in Serum or Plasma 9 [facility] Bicarbonate [Moles/volume] in Serum 22 mmol/L 22-29 [facility] Alanine aminotransferase [Enzymatic activity/volume] in Seru m or Plasma 22 U/L <41 [facility] Anion gap 3 in Serum or Plasma 11 mmol/L 8-15 [facility] Glomerular filtration rate/1.73 sq M pre dicted among non-blacks [Volume Rate/Area] in Serum or Plasma by Creatinine-based formula (MDRD) >6 0 [facility] Glomerular filtration rate/1.73 sq M pre dicted among blacks [Volume Rate/Area] in Serum or Plasma by Creatinine-based formula (MDRD) >60 [facility] ID Date Data Source [id number] 04/09/2020 08:42:50 PM [facility] Name Value Range Interpretation Code Description Data Adriana rce(s) Supporting Document(s) Thyrotropin [Units/volume] in Serum or Plasma 2.340 u[IU]/mL 0.270-4. 200 [facility] ID Date Data Source [id number] 04/09/2020 08:26:10 PM [facility] Name Value Range Interpretation Code Description Data Adriana rce(s) Supporting Document(s) Hemoglobin A1c/Hemoglobin.total in Blood by HPLC 5.6 % 4.0-6.0 [facility] (NOTE)<5.7% Average risk of diabetes (ADA)5.7-6.4% Increased risk of diabetes(ADA)>/= 6.5% Diagnostic for diabetes(ADA) Glucose mean value [Mass/volume] in Blood Estimated fr om glycated hemoglobin 114 mg/dL <126 [facility] ID Date Data Source [id number] 04/09/2020 02:47:00 PM EST [facility] NOT DETECTEDNOT DETECTED{ PROC EDURAL CONTROL VALID KIT LOT # _[id number] 04/09/20.1447.DW . KIT EXP DATE _92-87-84 04/09/20.1446.DW . NORMAL RANGE IS NOT DETECTEDNEGATIVE RESULTS [...] rce(s) Supporting Document(s) ID Date Data Source [id number] 04/14/2020 06:06:00 PM EST [facility] [id number] Name Value Range Interpretation Code Description Data Adriana rce(s) Supporting Document(s) Bacteria identified in Blood by Culture [facility] NO GROWTH AFTER 5 DAYS ID Date Data Source [id number] 04/14/2020 08:04:00 AM EST [facility] [id number] Name Value Range Interpretation Code Description Data Adriana rce(s) Supporting Document(s) TRIMETHOPRIM/SULFAMETHOXAZOLE <0.5/9.5 Mejia sceptible. Indicates for microbiology susceptibilities only. [facility] Amoxicillin+Clavulanate [Susceptibility] by Minimum inhibitory concentration (CHRIS) <4/2 Susceptible. Indicates for microbiology s usceptibilities only. [facility] Ampicillin [Susceptibility] by Minimum inhibitory concentration (CHRIS) <2 Resistant. Indicates for microbiology susceptibilities only. [facility] Ampicillin+Sulbactam [Susceptibility] by Minimum inhib itory concentration (CHRIS) <8/4 Susceptible. Indicates for microbiology suscepti bilities only. [facility] Cefazolin [Susceptibility] by Minimum inhibitory concentration ( CHRIS) <4 Susceptible. Indicates for microbiology susceptibilities only. [facility] Ciprofloxacin [Susceptibility] by Minimum inhibitory concentrati on (CHRIS) <1 Susceptible. Indicates for microbiology susceptibilities only. [facility] Clindamycin [Susceptibility] by Minimum inhibitory concentration (CHRIS) >4 Resistant. Indicates for microbiology susceptibilities only. [facility] Erythromycin [Susceptibility] by Minimum inhibitory concentratio n (CHRIS) >4 Resistant. Indicates for microbiology susceptibilities only. [facility] Gentamicin [Susceptibility] by Minimum inhibitory concentration (CHRIS) <4 Susceptible. Indicates for microbiology susceptibilities only. [facility] Oxacillin [Susceptibility] by Minimum inhibitory concentration ( CHRIS) <0.25 Susceptible. Indicates for microbiology susceptibilities only. [facility] Penicillin [Susceptibility] by Minimum inhibitory concentration (CHRIS) >8 Resistant. Indicates for microbiology susceptibilities only. [facility] Tetracycline [Susceptibility] by Minimum inhibitory concentratio n (CHRIS) <4 Susceptible. Indicates for microbiology susceptibilities only. [facility] Vancomycin [Susceptibility] by Minimum inhibitory concentration (CHRIS) 1 Susceptible. Indicates for microbiology susceptibilities only. [facility] Levofloxacin [Susceptibility] by Minimum inhibitory concentratio n (CHRIS) <1 Susceptible. Indicates for microbiology susceptibilities only. [facility] Moxifloxacin [Susceptibility] by Minimum inhibitory concentratio n (CHRIS) <0.5 Susceptible. Indicates for microbiology susceptibilities only. [facility] ID Date Data Source [id number] 04/19/2020 09:32:00 AM EDT [facility] Name Value Range Interpretation Code Description Data Adriana rce(s) Supporting Document(s) CULTURE BLOOD [facility]ital _CULTURE BLOOD_ TEST PERFORM ED AT [address] [address] CLIA# [id number] SEE SCANNED REPORT{ PRELIM ID Date Data Source [id number] 04/09/2020 02:12:00 PM EST [facility] Name Value Range Interpretation Code Description Data Adriana rce(s) Supporting Document(s) COMPREHENSIVE METABOLIC PANEL [facility] COMPREHENSIVE METABOLIC PANEL Sodium [Moles/volume] in Serum or Plasma 133 mEq/L 134 - 153 L [facility] Potassium [Moles/volume] in Serum or Plasma 4.4 mEq/L 3.6 - 5.0 [facility] Chloride [Moles/volume] in Serum or Plasma 99 mEq/L 98 - 107 [facility] Carbon dioxide, total [Moles/volume] in Serum or Plasma 23 MEQ/L 22 - 30 [facility] Glucose [Mass/volume] in Serum or Plasma 89 MG/DL 70 - 99 [facility] BUN 10 MG/DL 7 - 21 [facility] al Creatinine [Mass/volume] in Serum or Plasma 0.9 MG/DL 0.7 - 1.5 [facility] BUN/CREAT 11 8 - 27 [facility] Protein [Mass/volume] in Serum or Plasma 7.7 G/DL 6.3 - 8.2 [facility] Albumin [Mass/volume] in Serum or Plasma 5.0 G/DL 3.9 - 5.0 [facility] Globulin [Mass/volume] in Serum by calculation 2.7 GM/DL 2.4 - 3.2 [facility] A/G RATIO 1.9 0.8 - 2.0 [facility] Calcium [Mass/volume] in Serum or Plasma 9.8 MG/DL 8.4 - 10.2 [facility] Bilirubin.total [Mass/volume] in Serum or Plasma <0.7 MG/DL 0.2 - 1.3 [facility] Alkaline phosphatase [Enzymatic activity/volume] in Serum or Plasma 79 U/L 38 - 126 [facility] Aspartate aminotransferase [Enzymatic activity/volume] in Serum or Plasma 14 U/L 5 - 40 [facility] Alanine aminotransferase [Enzymatic activity/volume] in Seru m or Plasma 25 U/L 7 - 56 [facility] Anion gap 3 in Serum or Plasma 11.0 mmol/L 8.0 - 16.0 [facility] AGE 34 yrs [facility] NON-AA GFR >60 mL/min [facility] ital AFR AMER GFR >60 mL/min [facility] spital Male GFR In terprentation [...] >32 mL/min Normal ID Date Data Source [id number] 04/09/2020 02:05:00 PM [facility] Name Value Range Interpretation Code Description Data Adriana rce(s) Supporting Document(s) Magnesium [Mass/volume] in Serum or Plasma 2.1 MG/DL 1.7 - 2.2 [facility] ID Date Data Source [id number] 04/09/2020 01:42:00 PM [facility] Name Value Range Interpretation Code Description Data Adriana rce(s) Supporting Document(s) Prothrombin time (PT) 12.7 SECONDS 11.0 - 15.5 [facility] INR in Platelet poor plasma by Coagulation assay 0.91 0.93 - 1. 23 L [facility] aPTT in Blood by Coagulation assay 28.5 SECONDS 24.8 - 36.7 [facility] \\BLDo\\INR INTERPRETATION\\BLDx\\ Therapeutic range for Coumadin and related oral anticoagulants. - International Normalized Ratio (INR): 2.0 - 3.0 for Venous Thrombosis, Pulmonary Embolus, Tissue heart valves, Acute VA Atrial Fibrillation, Valvular heart disease and recurrent Systemic Embolism. - International Normalized Ratio (INR): 2.5 - 3.5 for Mechanical Prosthetic valve. ID Date Data Source [id number] 04/09/2020 01:42:00 PM [facility] Name Value Range Interpretation Code Description Data Adriana rce(s) Supporting Document(s) Fibrinogen [Mass/volume] in Platelet poor plasma by Co agulation assay 285.0 mg/dL 179 - 506 [facility] ID Date Data Source [id number] 04/09/2020 12:59:00 PM [facility] Name Value Range Interpretation Code Description Data Adriana rce(s) Supporting Document(s) CBC W/AUTOMATED DIFF [facility] COMPLETE BLOOD COUNT Leukocytes [#/volume] in Blood by Automated count 8.9 10^3/uL 4.2 - 1 1.0 [facility] Erythrocytes [#/volume] in Blood by Automated count 5.30 10^6/uL 4. 50 - 6.30 [facility] Hemoglobin [Mass/volume] in Blood 16.4 g/dL 14.0 - 16.0 H [facility] Hematocrit [Volume Fraction] of Blood by Automated count 46.1 % 4 1.0 - 51.0 [facility] Erythrocyte mean corpuscular volume [Entitic volume] by Auto mated count 87.0 fL 80.0 - 94.0 [facility] Erythrocyte mean corpuscular hemoglobin [Entitic mass] by Automated count 30.9 pg 27.0 - 34.0 [facility] Erythrocyte mean corpuscular hemoglobin concentration [Mass/volume] by Automated count 35.6 g/dL 31.0 - 36.0 [facility] Erythrocyte distribution width [Ratio] by Automated count 12.6 % 11.5 - 14.8 [facility] Platelets [#/volume] in Blood by Automated count 458 10^3/uL 150 - 45 0 H [facility] Platelet mean volume [Entitic volume] in Blood by Automated count 9.2 fL 7.4 - 10.4 [facility] Neutrophils/100 leukocytes in Blood by Automated count 59.1 % 37. 0 - 80.0 [facility] Lymphocytes/100 leukocytes in Blood by Manual count 30.6 % 25.0 - 40.0 [facility] Monocytes/100 leukocytes in Blood by Automated count 7.8 % 3.0 - 8.0 [facility] Eosinophils/100 leukocytes in Blood by Automated count 1.6 % 0.0 - 7.0 [facility] Basophils/100 leukocytes in Blood by Automated count 0.6 % 0.0 - 2.0 [facility] %IG 0.3 % 0.0 - 0.0 [facility] %NRBC 0.0 % 0.0 - 0.0 [facility] al Neutrophils [#/volume] in Blood by Automated count 5.28 10^3/uL 2.00 - 6.90 [facility] Lymphocytes [#/volume] in Blood by Automated count 2.73 10^3/uL 0.60 - 3.40 [facility] Monocytes [#/volume] in Blood by Automated count 0.70 10^3/uL 0.00 - 0.90 [facility] Eosinophils [#/volume] in Blood by Automated count 0.14 10^3/uL 0.00 - 0.70 [facility] Basophils [#/volume] in Blood by Automated count 0.05 10^3/uL 0.00 - 0.20 [facility] #IG 0.03 10^3/uL 0.00 - 0.10 [facility] #NRBC 0.00 10^3/uL 0.00 - 0.00 [facility] ospital MANUAL DIFF NOT INDICATED [facility] RBC MORPH NOT INDICATED [facility] spital ID Date Data Source [id number] 04/09/2020 12:52:00 PM [facility] Name Value Range Interpretation Code Description Data Adriana rce(s) Supporting Document(s) pH of Serum or Plasma 7.47 7.32 - 7.43 H [facility] pCO2 V 33.7 mm/HG 38.0 - 51.0 L [facility] pO2 V 25.9 mm/HG 30.0 - 55.0 L [facility] Bicarbonate [Moles/volume] in Venous blood 24.0 meq/L 22.0 - 29.0 [facility] TCO2 V 25.1 meq/L 22.0 - 29.0 [facility] Base excess in Blood by calculation 1.1 -2.0 - 2.0 [facility] O2 SAT V 52.6 % 40.0 - 85.0 [facility] ital ID Date Data Source [id number] 04/11/2020 06:29:00 AM [facility] #[id number] CALLED TO MAYITO JOAQUIN AT 0630 ON 04/11/20 BY NEAL.RESULTS READ BACK.The [employer] BCID Panel is a qualitative multiplexednucleic acid-based [...] rce(s) Supporting Document(s) ID Date Data Source [id number] 04/11/2020 06:31:00 AM [facility] Name Value Range Interpretation Code Description Data Adriana rce(s) Supporting Document(s) CULTURE BLOOD [facility] spital _CULTURE BLOOD_ TEST [place] [address] CLIA# [id number] SEE SCANNED REPORT{ PRELIM GROWTH OF STAPH SPECIES, PT TRANSFERRED ID Date Data Source [id number] 03/31/2020 12:33:00 PM [facility] [address] [place] [address] PHONE: [phone] FAX: [phone] Name .................. : JAUN Meyer Acct Number.................. : [id number] ROOM. ................. : TR-05 MR Number ................... : [id number] Stay type ............. : E/R Discharge Date......... ... : 03/29/20 Admit Date ......... : 03/29/20 Admit Phys .................... : IVAN KIRK Date of ....... : 1985 Family Phys ................... : ALEX KEANE Phone .................. : [phone] Age ................................ : 34 Film# .................. .:[id number] Sex ................................. : M Unsigned transcriptions are preliminary reports and do not represent a medical or legal document CT HEAD W/O CONTRAST [id number] COMPLETE:03/29/20 14:23 MADHAV 4855 Reason(s): L sided [...] ALEXANDRA HOUSE MD , 03/31/20 14:01, [facility] Transcribe Initials: [facility], Transcribe Date: 03/31/20 12:33, Dictation Date: Page 1 of [address] [place] [address] PHONE: [phone] FAX: [phone] Name .................. : JAUN Meyer Acct Number.................. : [id number] ROOM. ................. : TR05 Number ................... : [id number] Stay type ............. : E/R Discharge Date......... ... : 03/29/20 Admit Date ......... : 03/29/20 Admit Phys .................... : IVAN KIRK Date of ....... : 1985 Family Phys ................... : ALEX KEANE Phone .................. : [phone] Age ................................ : 34 Film# .................. .:[id number] Sex ................................. : M Unsigned transcriptions are preliminary reports and do not represent a medical or legal document CT HEAD W/O CONTRAST [id number] COMPLETE:03/29/20 14:23 MADHAV 4855 Reason(s): L sided UE numbness/double vision Copy for: MYRON Wolf via fax Copy for: EMERGENCY DEPT via modem Copy for: Joanna MED REC DISCHARGED Page 2 of 2 Name Value Range Interpretation Code Description Data Adriana rce(s) Supporting Document(s) ID Date Data Source [id number] 03/30/2020 06:35:00 PM EST [facility] [address] [place] [address] PHONE: [phone] FAX: [phone] Name .................. : JAUN Meyer Acct Number.................. : [id number] ROOM. ................. : TR-05 MR Number ................... : [id number] Stay type ............. : E/R Discharge Date......... ... : 03/29/20 Admit Date ......... : 03/29/20 Admit Phys .................... : IVAN KIRK Date of ....... : 1985 Family Phys ................... : JOHNSON DIYA Phone .................. : [phone] Age ................................ : 34 Film# .................. .:[id number] Sex ................................. : M Unsigned transcriptions are preliminary reports and do not represent a medical or legal document CT CTA HEAD W CONTRAST INC PP [id number] COMPLETE:03/29/20 14:23 MADHAV 4856 Reason(s): L sided [...] are widely patent. There is an incomplete [facility] [place] with an absent left [...] By Maninder Luis M.D. , 03/30/20 18:35, [facility] Transcribe Initials: MELANIE , Transcribe Date: 03/29/20 19:16, Dictation Date: Page 1 of 2 [facility] [address] [place] [address] PHONE: [phone] FAX: [phone] Name .................. : JAUN Meyer Acct Number.................. : [id number] ROOM. ................. : TR-05 Number ................... : [id number] Stay type ............. : E/R Discharge Date......... ... : 03/29/20 Admit Date .... ..... : 03/29/20 Admit Phys .................... : IVAN KIRK Date of ....... : 1985 Family Phys ................... : ALEX KEANE Phone .................. : [phone] Age ................................ : 34 Film# .................. .:[id number] Sex ................................. : M Unsigned transcriptions are preliminary reports and do not represent a medical or legal document CT CTA HEAD W CONTRAST INC PP [id number] COMPLETE:03/29/20 14:23 MADHAV 4856 Reason(s): L sided UE numbness double vision Copy for: MYRON Wolf via fax Copy for: EMERGENCY DEPT via modem Copy for: 710 MED REC DISCHARGED Page 2 of 2 Name Value Range Interpretation Code Description Data Adriana rce(s) Supporting Document(s) ID Date Data Source [id number] 03/30/2020 06:34:00 [place] [address] PHONE: [phone] FAX: [phone] Name .................. : JAUN GARCIAN Betsy Acct Number.................. : [id number] ROOM. ................. : TR-05 Number ................... : [id number] Stay type ............. : E/R Discharge Date......... ... : 03/29/20 Admit Date ......... : 03/29/20 Admit Phys .................... : IVAN KIRK Date of ....... : 1985 Family Phys ................... : ALEX WANGI Phone .................. : [phone] Age ................................ : 34 Film# .................. .:[id number] Sex ................................. : M Unsigned transcriptions are preliminary reports and do not represent a medical or legal document CT CTA NECK W CONT INC [id number] COMPLETE:03/29/20 14:23 MADHAV 4857 Reason(s): L sided [...] [address] Page 1 of 2 [place] [address] PHONE: [phone] FAX: [phone] Name .................. : JAUN Meyer Acct Number.................. : [id number] ROOM. ................. : TR-05 MR Number ................... : [id number] Stay type ............. : E/R Discharge Date......... ... : 03/29/20 Admit Date ..... .... : 03/29/20 Admit Phys .................... : IVAN KIRK Date of ....... : 1985 Family Phys ................... : ALEX KEANE Phone .................. : [phone] Age ................................ : 34 Film# .................. .:[id number] Sex ................................. : M Unsigned transcriptions are preliminary reports and do not represent a medical or legal document CT CTA NECK W CONT INC PP [id number] COMPLETE:03/29/20 14:23 MADHAV 4857 Reason(s): L sided [...] rce(s) Supporting Document(s) ID Date Data Source [id number] 03/30/2020 06:22:00 PM EST [facility] [address] [place] [address] PHONE: [phone] FAX: [phone] Name .................. : JAUN Meyer Acct Number.................. : [id number] ROOM. ................. : TR05 MR Number ................... : [id number] Stay type ............. : E/R Discharge Date......... ... : 03/29/20 Admit Date ......... : 03/29/20 Admit Phys .................... : IVAN KIRK Date of ....... : 1985 Family Phys ................... : K1 SpeedI Phone .................. : [phone] Age ................................ : 34 Film# .................. .:[id number] Sex ................................. : M Unsigned transcriptions are preliminary reports and do not represent a medical or legal document CHEST PORTABLE [id number] COMPLETE:03/29/20 13:01 [place] 266168 Reason(s): L UE numbness/double vision AP PORTABLE CHEST X- RAY: FINDINGS: The cardiac and mediastinal silhouettes appear normal and the lungs are clear. The bones and soft tissues are normal. The upper abdomen is unremarkable. IMPRESSION: No acute disease identifiable. Electronically Reviewed and Signed By ALEXANDRA HOUSE MD , 03/30/20 18:22, [facility] Transcribe Initials: MELANIE , Transcribe Date: 03/29/20 17:13, Dictation Date: Copy for: MYRON Wolf via fax Copy for: EMERGENCY DEPT via modem Copy for: 710 MED REC DISCHARGED Page 1 of 1 Name Value Range Interpretation Code Description Data Adriana rce(s) Supporting Document(s) ID Date Data Source [id number] 03/30/2020 08:03:00 [place] [address] RESPIRATORY CARE REPORT ==== ---------NAME------- NUMBER SEX AGE ADMIT DISC. XRAY# F/C TYPEMURPHY DELONTE Meyer [id number] 03/29/20 03/29/20 [id number] X6B E/R DATE OF : 1985 M/R# [id number] #: [id number] TR-05 LOCATION: EMERGENCY DEPT EKG 77913 COMP LETE:03/29/20 14:05 [place] [address] PHYSICIAN: IVAN CARLSON Name Value Range Interpretation Code Description Data Dariana rce(s) Supporting Document(s) ID Date Data Source [id number] 03/29/2020 11:40:00 AM [facility] 1 OrderSheet [facility] Emergency Department [address] [place] [address] Phone #: ext- [phone] 03/29/2020 11:30 Patient: [...] RNUrinalysis (Clean STAT 12:03/29/2020 Ack'd: 12:30 14:41 Sonu) Tonio CHAVEZ; Sandy Dimas RN R.N.Urine Drug [...] INC PP Tonio CHAVEZ; Sandy Dimas RN(Oxygen?(No)) R.NMorris(IV?(Yes)) Reason for Study: L sided UE numbness double vision 2 OrderSheet [facility] Emergency Department [address] [place] [address] Phone #: ext- [phone] 03/29/2020 11:30 Patient: DELONTE ZAMORANO Sex: M : 1985 Age: 34yCT CTA NECK W STAT 12:03/29/2020 Ack'd: 12:30 12:30 Shahab CHAVEZ; Sandy Dimas RN(Oxygen?(No)) R.N.(IV?(Yes)) Reason for Study: L sided UE numbness/double visionChest Portable 1 STAT 12:03/29/2020 Ack'd: 12:30 12:30 Ashok CHAVEZ; Sandy Dimas RN(Oxygen?(No)) R.N. Reason for Study: L UE numbn ess/double visionMEDICATION/IV/DRIP/FLUID ORDERSOrder Description Priority Entered Acknowledged InitialedNS IV : Bolus 250 12:03/29/2020 Ack'd: 12:30 12:36 Fatmata, then 75 mL/hr Tonio CHAVEZ; Sandy Dimas RN(NOW x1) R.N.Zofran IVP 4 mg 12:03/29/2020 Ack'd: 12:30 12:37 Livan CHAVEZ; Sandy Dimas RN R.N.Acetaminophen 1 g 14:03/29/2020 14:07 Omaira X1 dose: 1000 Tonio CHAVEZ; Quincy RNmg (NOW x1) Reason for ordering with alerts: Clinical consideration given -- 14:03/29/2020 Tonio Lara PAGENERAL ORDERSOrder Description Priority Entered Acknowledged InitialedCardiac Monitor 12:03/29/2020 12:22 Daryn(continuous) Tonio CHAVEZ; shipping associate, [facility] [id number] Pressure 12:03/29/2020 12:22 Chaya CHAVEZ; shipping associate, [facility] [id number] 12:03/29/2020 12:22 Daryn CHAVEZ; shipping associate, [facility] [id number] stroke 12:03/29/2020 12:30 Nolan SBP<160, Tonio CHAVEZ; Mathew RNDBP<90 mmHgIschemic stroke 12:21 03/29/2020 12:30 Nolan SBP<220, Tonio CHAVEZ; Quincy RN 3 OrderSheet [facility] Emergency Department [address] [place] [address] Phone #: ext- [phone] 03/29/2020 11:30 Patient: DELONTE ZAMORANO Sex: M [...] rce(s) Supporting Document(s) ID Date Data Source [id number] 03/29/2020 11:40:00 AM EST [facility] 1 Medication Reconciliation Report [facility] Emergency Department [address] [place] [address] Phone #: ext- [phone] 03/29/2020 11:30 Patient: DELONTE ZAMORANO Sex: M [...] rce(s) Supporting Document(s) ID Date Data Source [id number] 03/29/2020 11:40:00 AM EST [facility] 1 Medication Administration Record [facility] Emergency Department [address] [place] [address] Phone #: ext- [phone] 03/29/2020 11:30 Patient: [...] mL bag14:40 03/29/2020 Site: #1 left upper armKiraaSndy amezcua R.N.Given ZOFRAN [IVP] (ONDANSETRON HCL) Zofran IVP 4 mg12:37 03/29/2020 Dose: 4 mg IVPPnancy Mathew RN Site: #1 left upper armGiven ACETAMINOPHEN [PO] Acetaminophen 1 g PO X1 dose:14:07 03/29/2020 Dose: 1000 mg Tablets PO 1000 mg (NOW x1)Livan Mathew RN Name Value Range Interpretation Code Description Data Adriana rce(s) Supporting Document(s) ID Date Data Source [id number] 03/29/2020 11:40:00 AM EST [facility] 1 General Instructions [facility] Emergency Department [address] [place] [address] Phone #: ext- [phone] 03/29/2020 11:30 Patient: [...] ADDITIONAL INFORMATIONVertigo (Unknown Cause) 2 General Instructions [facility] Emergency Department [address] [place] [address] Phone #: ext- [phone] 03/29/2020 11:30 Patient: [...] as loose electrical cords 3 General Instructions [facility] Emergency Department [address] [place] [address] Phone #: ext- [phone] 03/29/2020 11:30 Patient: DELONTE ZAMORANO Sex: M [...] nausea, vomiting, and dizziness, you may use [id number] motion sickness pills. Ask your pharmacist for [...] speech or vision Loss of consciousness Seizure [id number] [employer]. [address] [place] [address], [place] [address]. All rights reserved. This information is not intended as asubstitute for professional medical care. Always follow your healthcare professional's instructions. You have been given the following additional information: Vertigo, Unspecified No strenuous activity until better. Rest at home today. Do not work for three days. 4 General Instructions [facility] Emergency Department [address] [place] [address] Phone #: ext- [phone] 03/29/2020 11:30 Patient: DELONTE ZAMORANO Sex: M : 1985 Age: 34y(Electronically signed by KATHY Garcia 03/29/2020 15:10) Name Value Range Interpretation Code Description Data Adriana rce(s) Supporting Document(s) ID Date Data Source [id number] 03/29/2020 11:40:00 AM EST [facility] 1 Clinical Report - Nurses [facility] Emergency Department [address] [place] [address] Phone #: ext [phone] 03/29/2020 11:30 Patient: DELONTE ZAMORANO Sex: M [...] has had ear pain, nausea and troublewalking.Treatment DIORAMIST:None.SEPSIS SCREEN: SIRS SCREEN NEGATIVE. SEPSIS SCREEN NEGATIVE. No suspected or confirmedsigns of infection present. --11:39 03/29/20 Patrica Lopez R.N.11:32 03/29/20. BP: 155/84. MAP: 107. HR: 90. RR: 18. O2 saturation: 100%. Temp: 97.1 F. Pain levelnow: 0. --11:39 03/29/20 Partica Lopez R.N.Weight: 99.9 kg measured. Height/Length: 71 [...] 12:10 03/29/20 2 Clinical Report - Nurses [facility] Emergency Department [address] [place] [address] Phone #: ext- [phone] 03/29/2020 11:30 Patient: DELONTE ZAMORANO Sex: M [...] to room. 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 Patient gowned. [...] Livan Mathew RN EKG was performed by javed grubbs and shown to the PA. --12:30 03/29/20 [facility] Bayron Grubbs ER Tech1 12:36 03/29/2020 [...] now: 09/14. --14:06 03/29/20 Livan Mathew RN 14:03/29/2020 Acetaminophen PO Tablets 1000 mg given. Allergies verified and confirmed 5 rights. Information reviewed with patient including reason for taking this medication. Verbalizes understanding. --14:07 03/29/20 Livan Mathew RN 13:10 03/29/20. BP: 131/89. MAP: 103. HR: 77. RR: 12. O2 saturation: 96%. --14:50 03/29/20 Sandy Dimas R.N. 4 Clinical Report - Nurses [facility] Emergency Department [address] [place] [address] Phone #: ext- [phone] 03/29/2020 11:30 Patient: DELONTE ZAMORANO Sex: Betsy : 1985 Age: 34y 13:15 03/29/20. BP: [...] Patient verbalized understanding. Written instructions provided in Colombian. The patient was discharged by the physician insurance account assistant. He was discharged home and accompanied by family. He left ambulatory and via private vehicle. Family member driving. --14:52 03/29/20 Sandy Dimas R.N. 14:45 03/29/20. BP: 145/86. MAP: 105. HR: 64. RR: 16. O2 saturation: 95% on room air. Temp: 98.5 F (oral). Pain level now: 5/10. --14:52 03/29/20 Sandy Dimas R.N. 14:40 03/29/2020 Site #1 removed upon discharge. Bandage applied (2x2 and tape, no bleeding noted pt tolerated well, clean dry and intact upon d/c.). --14:52 03/29/20 Sandy Dimas R.N. ( Niurka CHAVEZ aware of VS and is okay with D/C). --14:54 03/29/20 Sandy Dimas R.N.Locked/Released at 03/29/2020 14:54 by Sandy Dimas R.N. Name Value Range Interpretation Code Description Data Adriana rce(s) Supporting Document(s) ID Date Data Source [id number] 03/29/2020 11:40:00 AM EST [facility] 1 Clinical Report - Physicians/Mid Levels [facility] Emergency Department [address] [place] [address] Phone #: ext- [phone] 03/29/2020 11:30 Patient: DELONTE ZAMORANO Sex: M [...] discs. 2 Clinical Report - Physicians/Mid Levels [facility] Emergency Department [address] [place] [address] Phone #: ext- [phone] 03/29/2020 11:30 Patient: [...] marijuana. 3 Clinical Report - Physicians/Mid Levels [facility] Emergency Department [address] [place] [address] Phone #: rjx- [phone] 03/29/2020 11:30 Patient: DELONTE ZAMORANO Sex: M [...] results 4 Clinical Report - Physicians/Mid Levels [facility] Emergency Department [address] [place] [address] Phone #: ext- [phone] 03/29/2020 11:30 Patient: [...] Male GFR Interprentation 20-49 yrs >60 mL/min Mmrdwr72-53 yrs >56 mL/min Normal 60-69 yrs >49 mL/min Normal 70-79yrs>42 mL/min Normal 80 and above >35 mL/min Normal Female GFRInterpretation 20-39 yrs >60 mL/min Normal 40-49 yrs >58 mL/min 5 Clinical Report - Physicians/Mid Levels [facility] Emergency Department [address] [place] [address] Phone #: ext- [phone] 03/29/2020 11:30 Patient: [...] Thrombosis, Pulmonary Embolus, Tissue heart valves, Acute VA Atrial Fibrillation, Valvular heart disease and recurrent Systemic Embolism. -International Normalized Ratio (INR): 2.5 - 3.5 for Mechanical Prosthetic valve. Troponin-T: (PORTIA: 03/29/2020 12:48) ( MsgRcvd 03/29/2020 13:31) Final results Test Result Flag Units (Reference) TROPONIN T <0.01 NG/ML (0.00 - 0.10) TROPONIN T0.1 ng/ml Recommended as the clinical threshold value forTroponin T. EKG: (PORTIA: 03/29/2020 12:21) ( MsgRcvd 03/29/2020 14:17) In [place] [employer] CT Head W/O Cont: (PORTIA: 03/29/2020 12:21) ( gRcvd 03/29/2020 14:23) In [place] [employer] CT HEAD W/O CONTRAST Reason(s): L sided UE numbness/double vision TRANSPORTATION: S IV? O2? Oxygen?(No) Room: ED CT CTA HEAD W CONTRAST INC PP: (PORTIA: 03/29/2020 12:21) ( MsgRcvd 03/29/2020 14:23) In [place] [employer] CT CTA HEAD W CONTRAST INC PP Reason(s): L sided UE numbness double vision TRANSPORTATION: S IV? IV?(Yes) O2? Oxygen?(No) Ro CT CTA NECK W CONT INC PP: (PORTIA: 03/29/2020 12:21) ( MsgRcvd 03/29/2020 14:23) In [place] [employer] CT CTA NECK W CONT INC PP Reason(s): L sided UE numbness/double vision TRANSPORTATION: S IV? IV?(Yes) O2? Oxygen?(No) Ro Chest Portable 1 View: (PORTIA: 03/29/2020 12:21) ( MsgRcvd 03/29/2020 13:01) In [place] CHEST PORTABLE Reason(s): L UE numbness/double vision TRANSPORTATION: P IV? O2? Oxygen?(No) Room: ED. 6 Clinical Report - Physicians/Mid Levels [facility] Emergency Department [address] [place] [address] Phone #: ext- [phone] 03/29/2020 11:30 Patient: DELONTE ZAMORANO Sex: M : 1985 Age: 34yPROGRESS AND [...] care. 7 Clinical Report - Physicians/Mid Levels [facility] Emergency Department [address] [place] [address] Phone #: ext- [phone] 03/29/2020 11:30 Patient: DELONTE ZAMORANO Sex: M : 1985 Age: 34y(Electronically signed by KATHY Garcia 03/29/2020 15:10) Name Value Range Interpretation Code Description Data Adriana rce(s) Supporting Document(s) ID Date Data Source [id number] 03/29/2020 01:30:00 PM [facility] Name Value Range Interpretation Code Description Data Adriana rce(s) Supporting Document(s) TROPONIN T <0.01 NG/ML 0.00 - 0.10 [facility] ospital TROPONIN T0.1 ng/ml Recommended as the c linical threshold value forTroponin T. ID Date Data Source [id number] 03/29/2020 01:26:00 PM [facility] Name Value Range Interpretation Code Description Data Adriana rce(s) Supporting Document(s) COMPREHENSIVE METABOLIC PANEL [facility] COMPREHENSIVE METABOLIC PANEL Sodium [Moles/volume] in Serum or Plasma 139 mEq/L 134 - 153 [facility] Potassium [Moles/volume] in Serum or Plasma 4.3 mEq/L 3.6 - 5.0 [facility] Chloride [Moles/volume] in Serum or Plasma 105 mEq/L 98 - 107 [facility] Carbon dioxide, total [Moles/volume] in Serum or Plasma 26 MEQ/L 22 - 30 [facility] Glucose [Mass/volume] in Serum or Plasma 95 MG/DL 70 - 99 [facility] BUN 11 MG/DL 7 - 21 [facility] Creatinine [Mass/volume] in Serum or Plasma 1.0 MG/DL 0.7 - 1.5 [facility] BUN/CREAT 11 8 - 27 [facility] al Protein [Mass/volume] in Serum or Plasma 7.1 G/DL 6.3 - 8.2 [facility] Albumin [Mass/volume] in Serum or Plasma 4.3 G/DL 3.9 - 5.0 [facility] Globulin [Mass/volume] in Serum by calculation 2.8 GM/DL 2.4 - 3.2 [facility] A/G RATIO 1.5 0.8 - 2.0 [facility] Calcium [Mass/volume] in Serum or Plasma 9.1 MG/DL 8.4 - 10.2 [facility] Bilirubin.total [Mass/volume] in Serum or Plasma <0.7 MG/DL 0.2 - 1.3 [facility] Alkaline phosphatase [Enzymatic activity/volume] in Serum or Plasma 80 U/L 38 - 126 [facility] Aspartate aminotransferase [Enzymatic activity/volume] in Serum or Plasma 12 U/L 5 - 40 [facility] Alanine aminotransferase [Enzymatic activity/volume] in Seru m or Plasma 30 U/L 7 - 56 [facility] Anion gap 3 in Serum or Plasma 8.0 mmol/L 8.0 - 16.0 [facility] AGE 34 yrs [facility] al NON-AA GFR >60 mL/min [facility] ital AFR AMER GFR >60 mL/min [facility] Male GFR In terprentation [...] >32 mL/min Normal ID Date Data Source [id number] 03/29/2020 01:23:00 PM [facility] Name Value Range Interpretation Code Description Data Adriana rce(s) Supporting Document(s) Prothrombin time (PT) 12.5 SECONDS 11.0 - 15.5 [facility] INR in Platelet poor plasma by Coagulation assay 0.89 0.93 - 1. 23 L [facility] aPTT in Blood by Coagulation assay 27.1 SECONDS 24.8 - 36.7 [facility] \\BLDo\\INR INTERPRETATION\\BLDx\\ Therapeutic range for Coumadin and related oral anticoagulants. - International Normalized Ratio (INR): 2.0 - 3.0 for Venous Thrombosis, Pulmonary Embolus, Tissue heart valves, Acute VA Atrial Fibrillation, Valvular heart disease and recurrent Systemic Embolism. - International Normalized Ratio (INR): 2.5 - 3.5 for Mechanical Prosthetic valve. ID Date Data Source [id number] 03/29/2020 01:13:00 PM [facility] Name Value Range Interpretation Code Description Data Adriana rce(s) Supporting Document(s) Lactate [Moles/volume] in Serum or Plasma 1.8 MMOL/L 0.2 - 2.2 [facility] ID Date Data Source [id number] 03/29/2020 01:09:00 PM [facility] Name Value Range Interpretation Code Description Data Adriana rce(s) Supporting Document(s) CBC W/AUTOMATED DIFF [facility] COMPLETE BLOOD COUNT Leukocytes [#/volume] in Blood by Automated count 9.3 10^3/uL 4.2 - 1 1.0 [facility] Erythrocytes [#/volume] in Blood by Automated count 4.80 10^6/uL 4. 50 - 6.30 [facility] Hemoglobin [Mass/volume] in Blood 14.8 g/dL 14.0 - 16.0 [facility] Hematocrit [Volume Fraction] of Blood by Automated count 41.4 % 4 1.0 - 51.0 [facility] Erythrocyte mean corpuscular volume [Entitic volume] by Auto mated count 86.3 fL 80.0 - 94.0 [facility] Erythrocyte mean corpuscular hemoglobin [Entitic mass] by Automated count 30.8 pg 27.0 - 34.0 [facility] Erythrocyte mean corpuscular hemoglobin concentration [Mass/volume] by Automated count 35.7 g/dL 31.0 - 36.0 [facility] Erythrocyte distribution width [Ratio] by Automated count 12.4 % 11.5 - 14.8 [facility] Platelets [#/volume] in Blood by Automated count 447 10^3/uL 150 - 45 0 [facility] Platelet mean volume [Entitic volume] in Blood by Automated count 9.0 fL 7.4 - 10.4 [facility] Neutrophils/100 leukocytes in Blood by Automated count 64.6 % 37. 0 - 80.0 [facility] Lymphocytes/100 leukocytes in Blood by Manual count 23.7 % 25.0 - 40.0 L [facility] Monocytes/100 leukocytes in Blood by Automated count 9.0 % 3.0 - 8.0 H [facility] Eosinophils/100 leukocytes in Blood by Automated count 1.7 % 0.0 - 7.0 [facility] Basophils/100 leukocytes in Blood by Automated count 0.7 % 0.0 - 2.0 [facility] %IG 0.3 % 0.0 - 0.0 H [facility] al %NRBC 0.0 % 0.0 - 0.0 [facility] al Neutrophils [#/volume] in Blood by Automated count 6.03 10^3/uL 2.00 - 6.90 [facility] Lymphocytes [#/volume] in Blood by Automated count 2.21 10^3/uL 0.60 - 3.40 [facility] Monocytes [#/volume] in Blood by Automated count 0.84 10^3/uL 0.00 - 0.90 [facility] Eosinophils [#/volume] in Blood by Automated count 0.16 10^3/uL 0.00 - 0.70 [facility] Basophils [#/volume] in Blood by Automated count 0.07 10^3/uL 0.00 - 0.20 [facility] #IG 0.03 10^3/uL 0.00 - 0.10 [facility] #NRBC 0.00 10^3/uL 0.00 - 0.00 [facility] MANUAL DIFF NOT INDICATED [facility] RBC MORPH NOT INDICATED [facility] ID Date Data Source [id number] 01/23/2020 06:09:00 AM EST [facility] ([facility]) Name Value Range Interpretation Code Description Data Adriana rce(s) Supporting Document(s) glucose, fasting 87 mg/dL 70-100 Glucose, Fasting AT [facility]) creatinine for GFR 1.02 mg/dL 0.70-1.30 Creatinine for GF R [facility] ([facility]) blood urea nitrogen 8 mg/dL 7-18 Blood Urea Nitro gen [facility] ([facility]) glomerular filtration rate > 60.0 >60 Glomerula r Filtration Rate [facility] ([facility]) sodium level 140 mEq/L 136-145 Sodium Level [facility] (No [facility]) potassium serum 3.8 mEq/L 3.5-5.1 Potassium Serum [facility] ([facility]) chloride level 107 mEq/L 98-107 Chloride Level [facility] ([facility]) carbon dioxide level 25 mEq/L 21-32 Carbon Dioxide Level [facility] ([facility]) calcium level 8.3 mg/dL 8.5-10.1 Below low normal Calcium Level AT [facility]) anion gap 8 mEq/L 8-16 Anion Gap [facility] ([facility]) ID Date Data Source [id number] 01/23/2020 06:09:00 AM EST [facility] ([facility]) Name Value Range Interpretation Code Description Data Adriana rce(s) Supporting Document(s) red blood count 4.60 10 4.30-6.10 Red Blood Count [facility] ([facility]) white blood count 6.1 10 4.0-10.0 White Blood Count [facility] ([facility]) hemoglobin 14.0 g/dL 13.5-17.5 Hemoglobin [facility] ([facility]) hematocrit 40.2 % 42.0-52.0 Below low normal Hematocrit [facility] ( [facility]) mean corpuscular volume 87.4 fL 80.0-96.0 Mean Corpusc ular Volume [facility] ([facility]) mean corpuscular hemoglobin 30.4 pg 27.0-33.0 Mean Cor puscular Hemoglobin [facility] ([facility]) mean corpuscular HGB conc 34.8 g/dL 32.0-36.5 Mean Corpu scular HGB Conc [facility] ([facility]) red cell distribution width 12.3 % 11.5-14.5 Red Cell Distribution Width [facility] ([facility]) platelet count, automated 283 10 150-450 Platelet C ount, Automated [facility] ([facility]) nucleated red blood cell % 0.0 % 0-0 Nucleated Red Blood Cell % [facility] ([facility]) ID Date Data Source [id number] 01/23/2020 06:09:00 AM EST [facility] ([facility]) Name Value Range Interpretation Code Description Data Adriana rce(s) Supporting Document(s) glucose, fasting 87 mg/dL 70-100 Glucose, Fasting AT [facility]) blood urea nitrogen 8 mg/dL 7-18 Blood Urea Nitro gen [facility] ([facility]) creatinine for GFR 1.02 mg/dL 0.70-1.30 Creatinine for GF R [facility] ([facility]) glomerular filtration rate > 60.0 >60 Glomerula r Filtration Rate [facility] ([facility]) chloride level 107 mEq/L 98-107 Chloride Level [facility] ([facility]) sodium level 140 mEq/L 136-145 Sodium Level [facility] (No [facility]) potassium serum 3.8 mEq/L 3.5-5.1 Potassium Serum [facility] ([facility]) anion gap 8 mEq/L 8-16 Anion Gap [facility] ([facility]) carbon dioxide level 25 mEq/L 21-32 Carbon Dioxide Level [facility] ([facility]) calcium level 8.3 mg/dL 8.5-10.1 Below low normal Calcium Level AT [facility] ([facility]) ID Date Data Source [id number] 01/23/2020 06:09:00 AM EST [facility] ([facility]) Name Value Range Interpretation Code Description Data Adriana rce(s) Supporting Document(s) white blood count 6.1 10 4.0-10.0 White Blood Count [facility] ([facility]) hemoglobin 14.0 g/dL 13.5-17.5 Hemoglobin [facility] ([facility]) red blood count 4.60 10 4.30-6.10 Red Blood Count [facility] ([facility]) hematocrit 40.2 % 42.0-52.0 Below low normal Hematocrit [facility] ( [facility]) mean corpuscular volume 87.4 fL 80.0-96.0 Mean Corpusc ular Volume [facility] ([facility]) mean corpuscular HGB conc 34.8 g/dL 32.0-36.5 Mean Corpu scular HGB Conc [facility] ([facility]) mean corpuscular hemoglobin 30.4 pg 27.0-33.0 Mean Cor puscular Hemoglobin [facility] ([facility]) red cell distribution width 12.3 % 11.5-14.5 Red Cell Distribution Width [facility] ([facility]) platelet count, automated 283 10 150-450 Platelet C ount, Automated [facility] ([facility]) nucleated red blood cell % 0.0 % 0-0 Nucleated Red Blood Cell % [facility] ([facility]) ID Date Data Source [id number] 01/23/2020 06:09:00 AM EST [facility] ([facility]) Name Value Range Interpretation Code Description Data Adriana rce(s) Supporting Document(s) glucose, fasting 87 mg/dL 70-100 Glucose, Fasting AT [facility] ([facility]) creatinine for GFR 1.02 mg/dL 0.70-1.30 Creatinine for GF R [facility] ([facility]) blood urea nitrogen 8 mg/dL 7-18 Blood Urea Nitro gen [facility] ([facility]) glomerular filtration rate > 60.0 >60 Glomerula r Filtration Rate [facility] ([facility]) sodium level 140 mEq/L 136-145 Sodium Level [facility] ([facility]) potassium serum 3.8 mEq/L 3.5-5.1 Potassium Serum [facility] ([facility]) chloride level 107 mEq/L 98-107 Chloride Level [facility] ([facility]) carbon dioxide level 25 mEq/L 21-32 Carbon Dioxide Level [facility] ([facility]) anion gap 8 mEq/L 8-16 Anion Gap [facility] ([facility]) calcium level 8.3 mg/dL 8.5-10.1 Below low normal Calcium Level AT [facility]) ID Date Data Source [id number] 01/23/2020 06:09:00 AM EST [facility]) Name Value Range Interpretation Code Description Data Adriana rce(s) Supporting Document(s) white blood count 6.1 10 4.0-10.0 White Blood Count [facility] ([facility]) hemoglobin 14.0 g/dL 13.5-17.5 Hemoglobin [facility] ([facility]) red blood count 4.60 10 4.30-6.10 Red Blood Count [facility] ([facility]) mean corpuscular volume 87.4 fL 80.0-96.0 Mean Corpusc ular Volume [facility] ([facility]) hematocrit 40.2 % 42.0-52.0 Below low normal Hematocrit [facility] ( [facility]) mean corpuscular hemoglobin 30.4 pg 27.0-33.0 Mean Cor puscular Hemoglobin [facility] ([facility]) mean corpuscular HGB conc 34.8 g/dL 32.0-36.5 Mean Corpu scular HGB Conc [facility] ([facility]) red cell distribution width 12.3 % 11.5-14.5 Red Cell Distribution Width [facility] ([facility]) nucleated red blood cell % 0.0 % 0-0 Nucleated Red Blood Cell % [facility] ([facility]) platelet count, automated 283 10 150-450 Platelet C ount, Automated [facility] ([facility]) ID Date Data Source [id number] 01/23/2020 06:09:00 AM EST [facility] ([facility]) Name Value Range Interpretation Code Description Data Adriana rce(s) Supporting Document(s) blood urea nitrogen 8 mg/dL 7-18 Blood Urea Nitro gen [facility] ([facility]) glucose, fasting 87 mg/dL 70-100 Glucose, Fasting AT [facility]) creatinine for GFR 1.02 mg/dL 0.70-1.30 Creatinine for GF R [facility] ([facility]) glomerular filtration rate > 60.0 >60 Glomerula r Filtration Rate [facility] ([facility]) sodium level 140 mEq/L 136-145 Sodium Level [facility] (No [facility]) chloride level 107 mEq/L 98-107 Chloride Level [facility] ([facility]) potassium serum 3.8 mEq/L 3.5-5.1 Potassium Serum [facility] ([facility]) anion gap 8 mEq/L 8-16 Anion Gap [facility] ([facility]) calcium level 8.3 mg/dL 8.5-10.1 Below low normal Calcium Level AT [facility]) carbon dioxide level 25 mEq/L 21-32 Carbon Dioxide Level [facility] ([facility]) ID Date Data Source [id number] 01/23/2020 06:09:00 AM EST [facility] ([facility]) Name Value Range Interpretation Code Description Data Adriana rce(s) Supporting Document(s) white blood count 6.1 10 4.0-10.0 White Blood Count [facility] ([facility]) red blood count 4.60 10 4.30-6.10 Red Blood Count [facility] ([facility]) mean corpuscular volume 87.4 fL 80.0-96.0 Mean Corpusc ular Volume [facility] ([facility]) hemoglobin 14.0 g/dL 13.5-17.5 Hemoglobin [facility] ([facility]) hematocrit 40.2 % 42.0-52.0 Below low normal Hematocrit [facility] ( [facility]) mean corpuscular hemoglobin 30.4 pg 27.0-33.0 Mean Cor puscular Hemoglobin [facility] ([facility]) mean corpuscular HGB conc 34.8 g/dL 32.0-36.5 Mean Corpu scular HGB Conc [facility] ([facility]) nucleated red blood cell % 0.0 % 0-0 Nucleated Red Blood Cell % [facility] ([facility]) red cell distribution width 12.3 % 11.5-14.5 Red Cell Distribution Width [facility] ([facility]) platelet count, automated 283 10 150-450 Platelet C ount, Automated [facility]) ID Date Data Source [id number] 01/23/2020 06:09:00 AM EST [facility]) Name Value Range Interpretation Code Description Data Adriana rce(s) Supporting Document(s) glucose, fasting 87 mg/dL 70-100 Glucose, Fasting AT [facility]) blood urea nitrogen 8 mg/dL 7-18 Blood Urea Nitro gen [facility] ([facility]) creatinine for GFR 1.02 mg/dL 0.70-1.30 Creatinine for GF R [facility] ([facility]) glomerular filtration rate > 60.0 >60 Glomerula r Filtration Rate [facility] ([facility]) sodium level 140 mEq/L 136-145 Sodium Level [facility] ([facility]) potassium serum 3.8 mEq/L 3.5-5.1 Potassium Serum [facility] ([facility]) chloride level 107 mEq/L 98-107 Chloride Level [facility] ([facility]) carbon dioxide level 25 mEq/L 21-32 Carbon Dioxide Level [facility] ([facility]) anion gap 8 mEq/L 8-16 Anion Gap [facility] ([facility]) calcium level 8.3 mg/dL 8.5-10.1 Below low normal Calcium Level AT [facility]) ID Date Data Source [id number] 01/23/2020 06:09:00 AM EST [facility] ([facility]) Name Value Range Interpretation Code Description Data Adriana rce(s) Supporting Document(s) white blood count 6.1 10 4.0-10.0 White Blood Count [facility] ([facility]) red blood count 4.60 10 4.30-6.10 Red Blood Count [facility] ([facility]) hemoglobin 14.0 g/dL 13.5-17.5 Hemoglobin [facility] ([facility]) hematocrit 40.2 % 42.0-52.0 Below low normal Hematocrit [facility] ( [facility]) mean corpuscular volume 87.4 fL 80.0-96.0 Mean Corpusc ular Volume [facility] ([facility]) mean corpuscular hemoglobin 30.4 pg 27.0-33.0 Mean Cor puscular Hemoglobin [facility] ([facility]) mean corpuscular HGB conc 34.8 g/dL 32.0-36.5 Mean Corpu scular HGB Conc [facility] ([facility]) red cell distribution width 12.3 % 11.5-14.5 Red Cell Distribution Width [facility] ([facility]) platelet count, automated 283 10 150-450 Platelet C ount, Automated [facility] ([facility]) nucleated red blood cell % 0.0 % 0-0 Nucleated Red Blood Cell % [facility] ([facility]) ID Date Data Source [id number] 01/22/2020 09:10:00 AM EST [facility] ([facility]) Name Value Range Interpretation Code Description Data Adriana rce(s) Supporting Document(s) summary final . Summary [facility] ([facility]) ID Date Data Source [id number] 01/22/2020 09:10:00 AM EST [facility] ([facility]) Name Value Range Interpretation Code Description Data Adriana rce(s) Supporting Document(s) pH,urine rfx 6.0 units 5.0-9.0 pH,urine Rfx [facility] color, urine rfx yellow yellow Color, Urine Rfx AT [facility] ([facility]) appearance, urine rfx clear clear Appearance, Ur ine Rfx [facility] ([facility]) glucose, urine (UA) auto rfx negative negative Glucose , Urine (UA) Auto Rfx [facility] ([facility]) specific gravity ur auto rfx 1.002-1.035 Specif ic [place] Ur Auto Rfx [facility] ([facility]) protein, urine auto rfx negative negative Protein, Uri ne Auto Rfx [facility] ([facility]) bilirubin, urine auto rfx negative negative Bilirubin, Urine Auto Rfx [facility] ([facility]) urobilinogen, urine auto rfx 0.2 mg/dL 0.0-2.0 Urobili nogen, Urine Auto Rfx [facility] ([facility]) ketone, urine auto rfx negative negative Ketone, Urine Auto Rfx [facility] ([facility]) blood, urine blood rfx negative negative Blood, Urine Blood Rfx [facility] ([facility]) leukocyte esterase ur auto rfx negative negative Leukocyte Esterase Ur Auto Rfx [facility] ([facility]) nitrite, urine auto rfx negative negative Nitrite, Uri ne Auto Rfx [facility] ([facility]) RBC, urine auto rfx 0 /hpf 0-3 RBC, Urine Auto Rfx [facility] ([facility]) bacteria, urine auto rfx negative negative Bacteria, U rine Auto Rfx [facility] ([facility]) WBC, urine auto rfx 0 /hpf 0-3 WBC, Urine Auto Rfx [facility] ([facility]) squam epithelial cell ur aurfx 0 /hpf 0-6 Squam Epithelial Cell Ur Aurfx [facility] ([facility]) hyaline cast, urine auto rfx 0 /lpf 0-1 Hyaline Cast, Urine Auto Rfx [facility] ([facility]) ID Date Data Source [id number] 01/22/2020 09:10:00 AM EST [facility] ([facility]) Name Value Range Interpretation Code Description Data Adriana rce(s) Supporting Document(s) summary final . Summary [facility] ([facility]) ID Date Data Source [id number] 01/22/2020 09:10:00 AM EST [facility] ([facility]) Name Value Range Interpretation Code Description Data Adriana rce(s) Supporting Document(s) color, urine rfx yellow yellow Color, Urine Rfx AT [facility] ([facility]) appearance, urine rfx clear clear Appearance, Ur ine Rfx [facility] ([facility]) pH,urine rfx 6.0 units 5.0-9.0 pH,urine Rfx [facility] ([facility]) specific gravity ur auto rfx 1.002-1.035 Specif ic [place] Ur Auto Rfx [facility] ([facility]) protein, urine auto rfx negative negative Protein, Uri ne Auto Rfx [facility] ([facility]) glucose, urine (UA) auto rfx negative negative Glucose , Urine (UA) Auto Rfx [facility] ([facility]) ketone, urine auto rfx negative negative Ketone, Urine Auto Rfx [facility] ([facility]) bilirubin, urine auto rfx negative negative Bilirubin, Urine Auto Rfx [facility] ([facility]) urobilinogen, urine auto rfx 0.2 mg/dL 0.0-2.0 Urobili nogen, Urine Auto Rfx [facility] ([facility]) leukocyte esterase ur auto rfx negative negative Leukocyte Esterase Ur Auto Rfx [facility] ([facility]) blood, urine blood rfx negative negative Blood, Urine Blood Rfx [facility] ([facility]) nitrite, urine auto rfx negative negative Nitrite, Uri ne Auto Rfx [facility] ([facility]) RBC, urine auto rfx 0 /hpf 0-3 RBC, Urine Auto Rfx [facility] ([facility]) WBC, urine auto rfx 0 /hpf 0-3 WBC, Urine Auto Rfx [facility] ([facility]) bacteria, urine auto rfx negative negative Bacteria, U rine Auto Rfx [facility] ([facility]) squam epithelial cell ur aurfx 0 /hpf 0-6 Squam Epithelial Cell Ur Aurfx [facility] ([facility]) hyaline cast, urine auto rfx 0 /lpf 0-1 Hyaline Cast, Urine Auto Rfx [facility] ([facility]) ID Date Data Source [id number] 01/22/2020 09:10:00 AM EST [facility] ([facility]) Name Value Range Interpretation Code Description Data Adriana rce(s) Supporting Document(s) summary final . Summary [facility] ([facility]) ID Date Data Source [id number] 01/22/2020 09:10:00 AM EST [place] ([facility]) Name Value Range Interpretation Code Description Data Adriana rce(s) Supporting Document(s) appearance, urine rfx clear clear Appearance, Ur ine Rfx [place] ([facility]) color, urine rfx yellow yellow Color, Urine Rfx AT [facility] ([facility]) pH,urine rfx 6.0 units 5.0-9.0 pH,urine Rfx [place] (No [facility]) protein, urine auto rfx negative negative Protein, Uri ne Auto Rfx [place] ([facility]) specific gravity ur auto rfx 1.002-1.035 Specif ic [place] Ur Auto Rfx [place] ([facility]) glucose, urine (UA) auto rfx negative negative Glucose , Urine (UA) Auto Rfx [place] ([facility]) urobilinogen, urine auto rfx 0.2 mg/dL 0.0-2.0 Urobili nogen, Urine Auto Rfx [place] ([facility]) ketone, urine auto rfx negative negative Ketone, Urine Auto Rfx [place] ([facility]) bilirubin, urine auto rfx negative negative Bilirubin, Urine Auto Rfx [place] ([facility]) blood, urine blood rfx negative negative Blood, Urine Blood Rfx [place] ([facility]) nitrite, urine auto rfx negative negative Nitrite, Uri ne Auto Rfx [place] ([facility]) leukocyte esterase ur auto rfx negative negative Leukocyte Esterase Ur Auto Rfx [place] ([facility]) WBC, urine auto rfx 0 /hpf 0-3 WBC, Urine Auto Rfx [place] ([facility]) RBC, urine auto rfx 0 /hpf 0-3 RBC, Urine Auto Rfx [place] ([facility]) bacteria, urine auto rfx negative negative Bacteria, U rine Auto Rfx [place] ([facility]) squam epithelial cell ur aurfx 0 /hpf 0-6 Squam Epithelial Cell Ur Aurfx [place] ([facility]) hyaline cast, urine auto rfx 0 /lpf 0-1 Hyaline Cast, Urine Auto Rfx [place] ([facility]) ID Date Data Source [id number] 01/22/2020 09:10:00 AM EST [place] ([facility]) Name Value Range Interpretation Code Description Data Adriana rce(s) Supporting Document(s) summary final . Summary [place] ([facility]) ID Date Data Source [id number] 01/22/2020 09:10:00 AM EST [place] ([facility]) Name Value Range Interpretation Code Description Data Adriana rce(s) Supporting Document(s) color, urine rfx yellow yellow Color, Urine Rfx [facility] ([facility]) appearance, urine rfx clear clear Appearance, Ur ine Rfx [place] ([facility]) pH,urine rfx 6.0 units 5.0-9.0 pH,urine Rfx [place] (No [facility]) protein, urine auto rfx negative negative Protein, Uri ne Auto Rfx [place] ([facility]) specific gravity ur auto rfx 1.002-1.035 Specif ic [place] Ur Auto Rfx [place] ([facility]) ketone, urine auto rfx negative negative Ketone, Urine Auto Rfx [place] ([facility]) glucose, urine (UA) auto rfx negative negative Glucose , Urine (UA) Auto Rfx [place] ([facility]) urobilinogen, urine auto rfx 0.2 mg/dL 0.0-2.0 Urobili nogen, Urine Auto Rfx [place] ([facility]) leukocyte esterase ur auto rfx negative negative Leukocyte Esterase Ur Auto Rfx [place] ([facility]) bilirubin, urine auto rfx negative negative Bilirubin, Urine Auto Rfx [place] ([facility]) nitrite, urine auto rfx negative negative Nitrite, Uri ne Auto Rfx [place] ([facility]) WBC, urine auto rfx 0 /hpf 0-3 WBC, Urine Auto Rfx [place] ([facility]) RBC, urine auto rfx 0 /hpf 0-3 RBC, Urine Auto Rfx [place] ([facility]) blood, urine blood rfx negative negative Blood, Urine Blood Rfx [place] ([facility]) bacteria, urine auto rfx negative negative Bacteria, U rine Auto Rfx [place] ([facility]) hyaline cast, urine auto rfx 0 /lpf 0-1 Hyaline Cast, Urine Auto Rfx [place] ([facility]) squam epithelial cell ur aurfx 0 /hpf 0-6 Squam Epithelial Cell Ur Aurfx [place] ([facility]) ID Date Data Source [id number] 01/22/2020 09:10:00 AM EST [place] ([facility]) Name Value Range Interpretation Code Description Data Adriana rce(s) Supporting Document(s) summary final . Summary [place] ([facility]) ID Date Data Source [id number] 01/22/2020 09:10:00 AM EST [place] ([facility]) Name Value Range Interpretation Code Description Data Adriana rce(s) Supporting Document(s) appearance, urine rfx clear clear Appearance, Ur ine Rfx [place] ([facility]) color, urine rfx yellow yellow Color, Urine Rfx [facility] ([facility]) pH,urine rfx 6.0 units 5.0-9.0 pH,[facility] ur auto rfx 1.002-1.035 Specif ic [place] Ur Auto Rfx [place] ([facility]) protein, urine auto rfx negative negative Protein, Uri ne Auto Rfx [place] ([facility]) glucose, urine (UA) auto rfx negative negative Glucose , Urine (UA) Auto Rfx [place] ([facility]) ketone, urine auto rfx negative negative Ketone, Urine Auto Rfx [place] ([facility]) urobilinogen, urine auto rfx 0.2 mg/dL 0.0-2.0 Urobili nogen, Urine Auto Rfx [place] ([facility]) bilirubin, urine auto rfx negative negative Bilirubin, Urine Auto Rfx [place] ([facility]) nitrite, urine auto rfx negative negative Nitrite, Uri ne Auto Rfx [place] ([facility]) leukocyte esterase ur auto rfx negative negative Leukocyte Esterase Ur Auto Rfx [place] ([facility]) WBC, urine auto rfx 0 /hpf 0-3 WBC, Urine Auto Rfx [place] ([facility]) blood, urine blood rfx negative negative Blood, Urine Blood Rfx [place] ([facility]) RBC, urine auto rfx 0 /hpf 0-3 RBC, Urine Auto Rfx [place] ([facility]) bacteria, urine auto rfx negative negative Bacteria, U rine Auto Rfx [place] ([facility]) squam epithelial cell ur aurfx 0 /hpf 0-6 Squam Epithelial Cell Ur Aurfx [place] ([facility]) hyaline cast, urine auto rfx 0 /lpf 0-1 Hyaline Cast, Urine Auto Rfx [place] ([facility]) ID Date Data Source [id number] 01/22/2020 07:58:00 AM EST [place] ([facility]) Name Value Range Interpretation Code Description Data Adriana rce(s) Supporting Document(s) magnesium level 2.0 mg/dL 1.8-2.4 Magnesium Level [facility] ([facility]) ID Date Data Source [id number] 01/22/2020 07:58:00 AM EST [place] ([facility]) Name Value Range Interpretation Code Description Data Adriana rce(s) Supporting Document(s) glucose, fasting 87 mg/dL 70-100 Glucose, Fasting AT [facility]) blood urea nitrogen 13 mg/dL 7-18 Blood Urea Nitro gen [place] ([facility]) glomerular filtration rate > 60.0 >60 Glomerula r Filtration Rate [place] ([facility]) creatinine for GFR 1.03 mg/dL 0.70-1.30 Creatinine for GF R [place] ([facility]) sodium level 137 mEq/L 136-145 Sodium Level [place] (No [facility]) chloride level 104 mEq/L 98-107 Chloride Level [place] ([facility]) potassium serum 3.8 mEq/L 3.5-5.1 Potassium Serum [facility] ([facility]) calcium level 8.3 mg/dL 8.5-10.1 Below low normal Calcium Level AT [facility]) anion gap 7 mEq/L 8-16 Below low normal Anion Gap [place] ( [facility]) carbon dioxide level 26 mEq/L 21-32 Carbon Dioxide Level [place] ([facility]) ID Date Data Source [id number] 01/22/2020 07:58:00 AM EST [facility]) Name Value Range Interpretation Code Description Data Adriana rce(s) Supporting Document(s) lactic acid sepsis protocol 1.4 mmol/L 0.4-2.0 Lactic A blayne Sepsis Protocol [facility]) ID Date Data Source [id number] 01/22/2020 07:58:00 AM EST [facility]) Name Value Range Interpretation Code Description Data Adriana rce(s) Supporting Document(s) white blood count 6.6 10 4.0-10.0 White Blood Count [place] ([facility]) hematocrit 39.9 % 42.0-52.0 Below low normal Hematocrit [place] ( [facility]) hemoglobin 13.5 g/dL 13.5-17.5 Hemoglobin [facility]) red blood count 4.50 10 4.30-6.10 Red Blood Count [facility] ([facility]) mean corpuscular hemoglobin 30.0 pg 27.0-33.0 Mean Cor puscular Hemoglobin [place] ([facility]) mean corpuscular volume 88.7 fL 80.0-96.0 Mean Corpusc ular Volume [place] ([facility]) mean corpuscular HGB conc 33.8 g/dL 32.0-36.5 Mean Corpu scular HGB Conc [place] ([facility]) platelet count, automated 280 10 150-450 Platelet C ount, Automated [place] ([facility]) red cell distribution width 12.5 % 11.5-14.5 Red Cell Distribution Width [place] ([facility]) nucleated red blood cell % 0.0 % 0-0 Nucleated Red Blood Cell % [place] ([facility]) ID Date Data Source [id number] 01/22/2020 07:58:00 AM EST [place] ([facility]) Name Value Range Interpretation Code Description Data Adriana rce(s) Supporting Document(s) magnesium level 2.0 mg/dL 1.8-2.4 Magnesium Level [facility] ([facility]) ID Date Data Source [id number] 01/22/2020 07:58:00 AM EST [place] ([facility]) Name Value Range Interpretation Code Description Data Adriana rce(s) Supporting Document(s) glucose, fasting 87 mg/dL 70-100 Glucose, Fasting AT [facility] ([facility]) creatinine for GFR 1.03 mg/dL 0.70-1.30 Creatinine for GF R [place] ([facility]) blood urea nitrogen 13 mg/dL 7-18 Blood Urea Nitro gen [place] ([facility]) sodium level 137 mEq/L 136-145 Sodium Level [place] (No [facility]) glomerular filtration rate > 60.0 >60 Glomerula r Filtration Rate [place] ([facility]) chloride level 104 mEq/L 98-107 Chloride Level [place] ([facility]) carbon dioxide level 26 mEq/L 21-32 Carbon Dioxide Level [place] ([facility]) potassium serum 3.8 mEq/L 3.5-5.1 Potassium Serum [facility] ([facility]) anion gap 7 mEq/L 8-16 Below low normal Anion Gap [place] ( [facility]) calcium level 8.3 mg/dL 8.5-10.1 Below low normal Calcium Level AT [facility] ([facility]) ID Date Data Source [id number] 01/22/2020 07:58:00 AM EST [place] ([facility]) Name Value Range Interpretation Code Description Data Adriana rce(s) Supporting Document(s) lactic acid sepsis protocol 1.4 mmol/L 0.4-2.0 Lactic A blayne Sepsis Protocol [place] ([facility]) ID Date Data Source [id number] 01/22/2020 07:58:00 AM EST [place] ([facility]) Name Value Range Interpretation Code Description Data Adriana rce(s) Supporting Document(s) red blood count 4.50 10 4.30-6.10 Red Blood Count [facility] ([facility]) white blood count 6.6 10 4.0-10.0 White Blood Count [place] ([facility]) hematocrit 39.9 % 42.0-52.0 Below low normal Hematocrit [place] ( [facility]) hemoglobin 13.5 g/dL 13.5-17.5 Hemoglobin [place] ([facility]) mean corpuscular volume 88.7 fL 80.0-96.0 Mean Corpusc ular Volume [place] ([facility]) mean corpuscular hemoglobin 30.0 pg 27.0-33.0 Mean Cor puscular Hemoglobin [place] ([facility]) red cell distribution width 12.5 % 11.5-14.5 Red Cell Distribution Width [place] ([facility]) mean corpuscular HGB conc 33.8 g/dL 32.0-36.5 Mean Corpu scular HGB Conc [place] ([facility]) nucleated red blood cell % 0.0 % 0-0 Nucleated Red Blood Cell % [place] ([facility]) platelet count, automated 280 10 150-450 Platelet C ount, Automated [place] ([facility]) ID Date Data Source [id number] 01/22[facility]2020 [facility]:58[facility] Name Value Range Interpretation Code Description Data Adriana rce(s) Supporting Document(s) magnesium level 2.0 mg/dL 1.8-2.4 Magnesium Level [facility] ([facility]) ID Date Data Source [id number] 01/22/2020 07:58:00 AM EST [place] ([facility]) Name Value Range Interpretation Code Description Data Adriana rce(s) Supporting Document(s) glucose, fasting 87 mg/dL 70-100 Glucose, Fasting AT [facility]) blood urea nitrogen 13 mg/dL 7-18 Blood Urea Nitro gen [place] ([facility]) creatinine for GFR 1.03 mg/dL 0.70-1.30 Creatinine for GF R [place] ([facility]) sodium level 137 mEq/L 136-145 Sodium Level [place] (No [facility]) glomerular filtration rate > 60.0 >60 Glomerula r Filtration Rate [place] ([facility]) chloride level 104 mEq/L 98-107 Chloride Level [place] ([facility]) potassium serum 3.8 mEq/L 3.5-5.1 Potassium Serum [facility] ([facility]) carbon dioxide level 26 mEq/L 21-32 Carbon Dioxide Level [place] ([facility]) anion gap 7 mEq/L 8-16 Below low normal Anion Gap [place] ( [facility]) calcium level 8.3 mg/dL 8.5-10.1 Below low normal Calcium Level AT [facility]) ID Date Data Source [id number] 01/22/2020 07:58:00 [facility] Name Value Range Interpretation Code Description Data Adriana rce(s) Supporting Document(s) lactic acid sepsis protocol 1.4 mmol/L 0.4-2.0 Lactic A blayne Sepsis Protocol [place] ([facility]) ID Date Data Source [id number] 01/22/2020 07:58:00 AM EST [place] ([facility]) Name Value Range Interpretation Code Description Data Adriana rce(s) Supporting Document(s) white blood count 6.6 10 4.0-10.0 White Blood Count [place] ([facility]) red blood count 4.50 10 4.30-6.10 Red Blood Count [facility] ([facility]) hemoglobin 13.5 g/dL 13.5-17.5 Hemoglobin [place] ([facility]) mean corpuscular volume 88.7 fL 80.0-96.0 Mean Corpusc ular Volume [place] ([facility]) hematocrit 39.9 % 42.0-52.0 Below low normal Hematocrit [facility] ( [facility]) mean corpuscular HGB conc 33.8 g/dL 32.0-36.5 Mean Corpu scular HGB Conc [facility] ([facility]) mean corpuscular hemoglobin 30.0 pg 27.0-33.0 Mean Cor puscular Hemoglobin [facility] ([facility]) red cell distribution width 12.5 % 11.5-14.5 Red Cell Distribution Width [place] ([facility]) platelet count, automated 280 10 150-450 Platelet C ount, Automated [place] ([facility]) nucleated red blood cell % 0.0 % 0-0 Nucleated Red Blood Cell % [facility] ([facility]) ID Date Data Source [id number] 01/22/2020 07:58:00 AM EST [place] ([facility]) Name Value Range Interpretation Code Description Data Adriana rce(s) Supporting Document(s) magnesium level 2.0 mg/dL 1.8-2.4 Magnesium Level [facility] ([facility]) ID Date Data Source [id number] 01/22/2020 07:58:00 AM EST [place] ([facility]) Name Value Range Interpretation Code Description Data Adriana rce(s) Supporting Document(s) blood urea nitrogen 13 mg/dL 7-18 Blood Urea Nitro gen [place] ([facility]) glucose, fasting 87 mg/dL 70-100 Glucose, Fasting AT [facility] ([facility]) creatinine for GFR 1.03 mg/dL 0.70-1.30 Creatinine for GF R [place] ([facility]) glomerular filtration rate > 60.0 >60 Glomerula r Filtration Rate [place] ([facility]) potassium serum 3.8 mEq/L 3.5-5.1 Potassium Serum [facility] ([facility]) sodium level 137 mEq/L 136-145 Sodium Level [place] (No [facility]) chloride level 104 mEq/L 98-107 Chloride Level [place] ([facility]) anion gap 7 mEq/L 8-16 Below low normal Anion Gap [place] ( [facility]) carbon dioxide level 26 mEq/L 21-32 Carbon Dioxide Level [place] ([facility]) calcium level 8.3 mg/dL 8.5-10.1 Below low normal Calcium Level AT [facility]) ID Date Data Source [id number] 01/22/2020 07:58:00 AM EST [place] ([facility]) Name Value Range Interpretation Code Description Data Adriana rce(s) Supporting Document(s) lactic acid sepsis protocol 1.4 mmol/L 0.4-2.0 Lactic A blayne Sepsis Protocol [facility]) ID Date Data Source [id number] 01/22/2020 07:58:00 AM EST [facility]) Name Value Range Interpretation Code Description Data Adriana rce(s) Supporting Document(s) white blood count 6.6 10 4.0-10.0 White Blood Count [place] ([facility]) hemoglobin 13.5 g/dL 13.5-17.5 Hemoglobin [facility]) hematocrit 39.9 % 42.0-52.0 Below low normal Hematocrit [place] ( [facility]) red blood count 4.50 10 4.30-6.10 Red Blood Count [facility] ([facility]) mean corpuscular volume 88.7 fL 80.0-96.0 Mean Corpusc ular Volume [place] ([facility]) mean corpuscular hemoglobin 30.0 pg 27.0-33.0 Mean Cor puscular Hemoglobin [facility] ([facility]) mean corpuscular HGB conc 33.8 g/dL 32.0-36.5 Mean Corpu scular HGB Conc [facility] ([facility]) red cell distribution width 12.5 % 11.5-14.5 Red Cell Distribution Width [place] ([facility]) platelet count, automated 280 10 150-450 Platelet C ount, Automated [place] ([facility]) nucleated red blood cell % 0.0 % 0-0 Nucleated Red Blood Cell % [facility] ([facility]) ID Date Data Source [id number] 01/22/2020 07:58:00 AM EST [place] ([facility]) Name Value Range Interpretation Code Description Data Adriana rce(s) Supporting Document(s) magnesium level 2.0 mg/dL 1.8-2.4 Magnesium Level [facility] ([facility]) ID Date Data Source [id number] 01/22/2020 07:58:00 AM EST [place] ([facility]) Name Value Range Interpretation Code Description Data Adriana rce(s) Supporting Document(s) glucose, fasting 87 mg/dL 70-100 Glucose, Fasting AT [facility] ([facility]) blood urea nitrogen 13 mg/dL 7-18 Blood Urea Nitro gen [place] ([facility]) glomerular filtration rate > 60.0 >60 Glomerula r Filtration Rate [facility] ([facility]) sodium level 137 mEq/L 136-145 Sodium Level [place] (No [facility]) creatinine for GFR 1.03 mg/dL 0.70-1.30 Creatinine for GF R [place] ([facility]) chloride level 104 mEq/L 98-107 Chloride Level [facility] ([facility]) potassium serum 3.8 mEq/L 3.5-5.1 Potassium Serum [facility] ([facility]) carbon dioxide level 26 mEq/L 21-32 Carbon Dioxide Level [place] ([facility]) anion gap 7 mEq/L 8-16 Below low normal Anion Gap [facility] ( [facility]) calcium level 8.3 mg/dL 8.5-10.1 Below low normal Calcium Level AT [facility] ([facility]) ID Date Data Source [id number] 01/22/2020 07:58:00 AM EST [place] ([facility]) Name Value Range Interpretation Code Description Data Adriana rce(s) Supporting Document(s) lactic acid sepsis protocol 1.4 mmol/L 0.4-2.0 Lactic A blayne Sepsis Protocol [place] ([facility]) ID Date Data Source [id number] 01/22/2020 07:58:00 AM EST [place] ([facility]) Name Value Range Interpretation Code Description Data Adriana rce(s) Supporting Document(s) white blood count 6.6 10 4.0-10.0 White Blood Count [place] ([facility]) red blood count 4.50 10 4.30-6.10 Red Blood Count [facility] ([facility]) hemoglobin 13.5 g/dL 13.5-17.5 Hemoglobin [facility] ([facility]) hematocrit 39.9 % 42.0-52.0 Below low normal Hematocrit [facility] ( [facility]) mean corpuscular volume 88.7 fL 80.0-96.0 Mean Corpusc ular Volume [facility] ([facility]) mean corpuscular HGB conc 33.8 g/dL 32.0-36.5 Mean Corpu scular HGB Conc [facility] ([facility]) mean corpuscular hemoglobin 30.0 pg 27.0-33.0 Mean Cor puscular Hemoglobin [facility] ([facility]) red cell distribution width 12.5 % 11.5-14.5 Red Cell Distribution Width [facility] ([facility]) platelet count, automated 280 10 150-450 Platelet C ount, Automated [place] ([facility]) nucleated red blood cell % 0.0 % 0-0 Nucleated Red Blood Cell % [facility] ([facility]) ID Date Data Source [id number] 01/22/2020 07:06:00 AM EST [place] ([facility]) Name Value Range Interpretation Code Description Data Adriana rce(s) Supporting Document(s) bedside glucose 93 mg/dL 70-105 Bedside Glucose [facility] ([facility]) ID Date Data Source [id number] 01/22/2020 07:06:00 AM EST [place] ([facility]) Name Value Range Interpretation Code Description Data Adriana rce(s) Supporting Document(s) bedside glucose 93 mg/dL 70-105 Bedside Glucose [facility] ([facility]) ID Date Data Source [id number] 01/22/2020 07:06:00 AM EST [place] ([facility]) Name Value Range Interpretation Code Description Data Adriana rce(s) Supporting Document(s) bedside glucose 93 mg/dL 70-105 Bedside Glucose [facility] ([facility]) ID Date Data Source [id number] 01/22/2020 07:06:00 AM EST [place] ([facility]) Name Value Range Interpretation Code Description Data Adriana rce(s) Supporting Document(s) bedside glucose 93 mg/dL 70-105 Bedside Glucose [facility] ([facility]) ID Date Data Source [id number] 01/22/2020 07:06:00 AM EST [place] ([facility]) Name Value Range Interpretation Code Description Data Adriana rce(s) Supporting Document(s) bedside glucose 93 mg/dL 70-105 Bedside Glucose [facility] ([facility]) ID Date Data Source [id number] 01/21/2020 11:46:00 PM EST [place] ([facility]) Name Value Range Interpretation Code Description Data Adriana rce(s) Supporting Document(s) lactic acid level, lactate 2.1 mmol/L 0.4-2.0 Above high nor mal Lactic Acid Level, Lactate [facility] ([facility]) ID Date Data Source [id number] 01/21/2020 11:46:00 PM EST [place] ([facility]) Name Value Range Interpretation Code Description Data Adriana rce(s) Supporting Document(s) lactic acid level, lactate 2.1 mmol/L 0.4-2.0 Above high nor mal [facility] Data Source [id number] 01/21/2020 11:46:00 PM EST [place] ([facility]) Name Value Range Interpretation Code Description Data Adriana rce(s) Supporting Document(s) lactic acid level, lactate 2.1 mmol/L 0.4-2.0 Above high nor mal Lactic Acid Level, Lactate [facility] ([facility]) ID Date Data Source [id number] 01/21/2020 11:46:00 PM EST [place] ([facility]) Name Value Range Interpretation Code Description Data Adriana rce(s) Supporting Document(s) lactic acid level, lactate 2.1 mmol/L 0.4-2.0 Above high nor mal Lactic Acid Level, Lactate [facility] ([facility]) ID Date Data Source [id number] 01/21/2020 11:46:00 PM EST [facility]) Name Value Range Interpretation Code Description Data Adriana rce(s) Supporting Document(s) lactic acid level, lactate 2.1 mmol/L 0.4-2.0 Above high nor mal Lactic Acid Level, Lactate [facility] ([facility]) ID Date Data Source [id number] 01/21/2020 09:03:00 PM EST [place] ([facility]) Name Value Range Interpretation Code Description Data Adriana rce(s) Supporting Document(s) bedside glucose 88 mg/dL 70-105 Bedside Glucose [facility] ([facility]) ID Date Data Source [id number] 01/21/2020 09:03:00 PM EST [place] ([facility]) Name Value Range Interpretation Code Description Data Adriana rce(s) Supporting Document(s) bedside glucose 88 mg/dL 70-105 Bedside Glucose [facility] ([facility]) ID Date Data Source [id number] 01/21/2020 09:03:00 PM EST [place] ([facility]) Name Value Range Interpretation Code Description Data Adraina rce(s) Supporting Document(s) bedside glucose 88 mg/dL 70-105 Bedside Glucose [facility] ([facility]) ID Date Data Source [id number] 01/21/2020 09:03:00 PM EST [place] ([facility]) Name Value Range Interpretation Code Description Data Adriana rce(s) Supporting Document(s) bedside glucose 88 mg/dL 70-105 Bedside Glucose [facility] ([facility]) ID Date Data Source [id number] 01/21/2020 09:03:00 PM EST [place] ([facility]) Name Value Range Interpretation Code Description Data Adriana rce(s) Supporting Document(s) bedside glucose 88 mg/dL 70-105 Bedside Glucose ATHE NA ([facility]) ID Date Data Source [id number] 01/21/2020 [facility]04[facility] Name Value Range Interpretation Code Description Data Adriana rce(s) Supporting Document(s) ID Date Data Source [id number] 01/21/2020 07:04:00 PM EST MARJ[place]IE ([facility]) Name Value Range Interpretation Code Description Data Adriana rce(s) Supporting Document(s) ID Date Data Source [id number] 01/21/2020 07:04:00 PM EST [place] ([facility]) Name Value Range Interpretation Code Description Data Adriana rce(s) Supporting Document(s) ID Date Data Source [id number] 01/21/2020 07:04:00 PM EST [place] ([facility]) Name Value Range Interpretation Code Description Data Adriana rce(s) Supporting Document(s) ID Date Data Source [id number] 01/21/2020 07:04:00 PM EST [place] ([facility]) Name Value Range Interpretation Code Description Data Adriana rce(s) Supporting Document(s) ID Date Data Source [id number] 01/21/2020 06:35:00 PM EST [place] ([facility]) Name Value Range Interpretation Code Description Data Adriana rce(s) Supporting Document(s) ID Date Data Source [id number] 01/21/2020 06:35:00 PM EST [place] ([facility]) Name Value Range Interpretation Code Description Data Adriana rce(s) Supporting Document(s) lactic acid sepsis protocol 3.0 mmol/L 0.4-2.0 Above high no rmal Lactic Acid Sepsis Protocol [facility] ([facility]) ID Date Data Source [id number] 01/21/2020 06:35:00 PM EST [place] ([facility]) Name Value Range Interpretation Code Description Data Adriana rce(s) Supporting Document(s) triglycerides level 113 mg/dL <150 Triglycerides Le osmar MAR[place] ([facility]) cholesterol level 205 mg/dL <200 Above high normal Cholesterol Level [facility] ([facility]) Cholesterol in LDL [Mass/volume] in Serum or Plasma 118 mg/dL <100 Above high normal LDL Cholesterol [facility] ([facility]) non-HDL-C 141 mg/dL Non-hdl-c [facility] ([facility]) cholesterol risk ratio <5 Cholesterol R isk Ratio [facility] ([facility]) HDL cholesterol 64 mg/dL >40 HDL Cholesterol ATHE NA ([facility]) ID Date Data Source [id number] 01/21/2020 06:35:00 PM EST [place] ([facility]) Name Value Range Interpretation Code Description Data Adriana rce(s) Supporting Document(s) Hemoglobin A1c/Hemoglobin.total in Blood 5.5 % Hemoglobin a1C [facility] ([facility]) estimated average glucose 111 mg/dL 60-110 Above high norm al Estimated Average Glucose [facility] ([facility]) ID Date Data Source [id number] 01/21/2020 06:35:00 PM EST [place] ([facility]) Name Value Range Interpretation Code Description Data Adriana rce(s) Supporting Document(s) ID Date Data Source [id number] 01/21/2020 06:35:00 PM EST [place] ([facility]) Name Value Range Interpretation Code Description Data Adriana rce(s) Supporting Document(s) lactic acid sepsis protocol 3.0 mmol/L 0.4-2.0 Above high no rmal Lactic Acid Sepsis Protocol [facility] ([facility]) ID Date Data Source [id number] 01/21/2020 06:35:00 PM EST [place] ([facility]) Name Value Range Interpretation Code Description Data Adriana rce(s) Supporting Document(s) triglycerides level 113 mg/dL <150 Triglycerides Le osmar MAR[place] ([facility]) Cholesterol in LDL [Mass/volume] in Serum or Plasma 118 mg/dL <100 Above high normal LDL Cholesterol [facility] ([facility]) HDL cholesterol 64 mg/dL >40 HDL Cholesterol ATHE NA ([facility]) non-HDL-C 141 mg/dL Non-hdl-c [facility] ([facility]) cholesterol level 205 mg/dL <200 Above high normal Cholesterol Level [facility] ([facility]) cholesterol risk ratio <5 Cholesterol R isk Ratio [facility] ([facility]) ID Date Data Source [id number] 01/21/2020 06:35:00 PM EST [place] ([facility]) Name Value Range Interpretation Code Description Data Adriana rce(s) Supporting Document(s) Hemoglobin A1c/Hemoglobin.total in Blood 5.5 % Hemoglobin a1C [facility] ([facility]) estimated average glucose 111 mg/dL 60-110 Above high norm al Estimated Average Glucose [facility] ([facility]) ID Date Data Source [id number] 01/21/2020 06:35:00 PM EST [place] ([facility]) Name Value Range Interpretation Code Description Data Adriana rce(s) Supporting Document(s) ID Date Data Source [id number] 01/21/2020 06:35:00 PM EST [place] ([facility]) Name Value Range Interpretation Code Description Data Adriana rce(s) Supporting Document(s) lactic acid sepsis protocol 3.0 mmol/L 0.4-2.0 Above high no rmal Lactic Acid Sepsis Protocol [facility] ([facility]) ID Date Data Source [id number] 01/21/2020 06:35:00 PM EST [place] ([facility]) Name Value Range Interpretation Code Description Data Adriana rce(s) Supporting Document(s) triglycerides level 113 mg/dL <150 Triglycerides Le osmar [facility] ([facility]) Cholesterol in LDL [Mass/volume] in Serum or Plasma 118 mg/dL <100 Above high normal LDL Cholesterol [facility] ([facility]) cholesterol level 205 mg/dL <200 Above high normal Cholesterol Level [facility] ([facility]) non-HDL-C 141 mg/dL Non-hdl-c [facility] ([facility]) HDL cholesterol 64 mg/dL >40 HDL Cholesterol ATHE NA ([facility]) cholesterol risk ratio <5 Cholesterol R isk Ratio [facility] ([facility]) ID Date Data Source [id number] 01/21/2020 06:35:00 PM EST [place] ([facility]) Name Value Range Interpretation Code Description Data Adriana rce(s) Supporting Document(s) Hemoglobin A1c/Hemoglobin.total in Blood 5.5 % Hemoglobin a1C [facility] ([facility]) estimated average glucose 111 mg/dL 60-110 Above high norm al Estimated Average Glucose [facility] ([facility]) ID Date Data Source [id number] 01/21/2020 06:35:00 PM EST [place] ([facility]) Name Value Range Interpretation Code Description Data Adriana rce(s) Supporting Document(s) ID Date Data Source [id number] 01/21/2020 06:35:00 PM EST [place] ([facility]) Name Value Range Interpretation Code Description Data Adriana rce(s) Supporting Document(s) lactic acid sepsis protocol 3.0 mmol/L 0.4-2.0 Above high no rmal Lactic Acid Sepsis Protocol [facility] ([facility]) ID Date Data Source [id number] 01/21/2020 06:35:00 PM EST [place] ([facility]) Name Value Range Interpretation Code Description Data Adriana rce(s) Supporting Document(s) triglycerides level 113 mg/dL <150 Triglycerides Le osmar [facility] ([facility]) Cholesterol in LDL [Mass/volume] in Serum or Plasma 118 mg/dL <100 Above high normal LDL Cholesterol [facility] ([facility]) non-HDL-C 141 mg/dL Non-hdl-c [facility] ([facility]) cholesterol level 205 mg/dL <200 Above high normal Cholesterol Level [facility] ([facility]) HDL cholesterol 64 mg/dL >40 HDL Cholesterol ATHE NA ([facility]) cholesterol risk ratio <5 Cholesterol R isk Ratio [facility] ([facility]) ID Date Data Source [id number] 01/21/2020 06:35:00 PM EST [place] ([facility]) Name Value Range Interpretation Code Description Data Adriana rce(s) Supporting Document(s) estimated average glucose 111 mg/dL 60-110 Above high norm al Estimated Average Glucose [facility] ([facility]) Hemoglobin A1c/Hemoglobin.total in Blood 5.5 % Hemoglobin a1C [facility] ([facility]) ID Date Data Source [id number] 01/21/2020 06:35:00 PM EST [place] ([facility]) Name Value Range Interpretation Code Description Data Adriana rce(s) Supporting Document(s) ID Date Data Source [id number] 01/21/2020 06:35:00 PM EST [place] ([facility]) Name Value Range Interpretation Code Description Data Adriana rce(s) Supporting Document(s) lactic acid sepsis protocol 3.0 mmol/L 0.4-2.0 Above high no rmal Lactic Acid Sepsis Protocol [facility] ([facility]) ID Date Data Source [id number] 01/21/2020 06:35:00 PM EST [place] ([facility]) Name Value Range Interpretation Code Description Data Adriana rce(s) Supporting Document(s) HDL cholesterol 64 mg/dL >40 HDL Cholesterol ATHE NA ([facility]) triglycerides level 113 mg/dL <150 Triglycerides Le osmar MAR[place] ([facility]) cholesterol level 205 mg/dL <200 Above high normal Cholesterol Level MAR[facility] ([facility]) Cholesterol in LDL [Mass/volume] in Serum or Plasma 118 mg/dL <100 Above high normal LDL Cholesterol [facility] ([facility]) cholesterol risk ratio <5 Cholesterol R isk Ratio MAR[facility] ([facility]) non-HDL-C 141 mg/dL Non-hdl-c [facility] ([facility]) ID Date Data Source [id number] 01/21/2020 06:35:00 PM EST [place] ([facility]) Name Value Range Interpretation Code Description Data Adriana rce(s) Supporting Document(s) estimated average glucose 111 mg/dL 60-110 Above high norm al Estimated Average Glucose [place] ([facility]) Hemoglobin A1c/Hemoglobin.total in Blood 5.5 % Hemoglobin a1C [place] ([facility]) ID Date Data Source [id number] 01/21/2020 04:39:00 PM EST [place] ([facility]) Name Value Range Interpretation Code Description Data Adriana rce(s) Supporting Document(s) sars covid-19 amplification negative negative Sars Cov id-19 Amplification [facility]) ID Date Data Source [id number] 01/21/2020 04:39:00 PM EST [place] ([facility]) Name Value Range Interpretation Code Description Data Adriana rce(s) Supporting Document(s) sars covid-19 amplification negative negative Sars Cov id-19 Amplification [facility] ([facility]) ID Date Data Source [id number] 01/21/2020 04:39:00 PM EST [place] ([facility]) Name Value Range Interpretation Code Description Data Adriana rce(s) Supporting Document(s) sars covid-19 amplification negative negative Sars Cov id-19 Amplification [facility]) ID Date Data Source [id number] 01/21/2020 04:39:00 PM EST [place] ([facility]) Name Value Range Interpretation Code Description Data Adriana rce(s) Supporting Document(s) sars covid-19 amplification negative negative Sars Cov id-19 Amplification [facility]) ID Date Data Source [id number] 01/21/2020 04:39:00 PM EST [place] ([facility]) Name Value Range Interpretation Code Description Data Adriana rce(s) Supporting Document(s) sars covid-19 amplification negative negative Sars Cov id-19 Amplification [place] ([facility]) ID Date Data Source [id number] 01/21/2020 04:39:00 PM EST [facility] Name Value Range Interpretation Code Description Data Adriana rce(s) Supporting Document(s) SARS coronavirus 2 RNA [Presence] in Res piratory specimen by BINA with probe detection [facility] This lab was ordered by [facility] a nd reported by [facility]. ID Date Data Source [id number] 01/21/2020 02:10:00 PM EST [facility]) Name Value Range Interpretation Code Description Data Adriana rce(s) Supporting Document(s) lactic acid sepsis protocol 3.7 mmol/L 0.4-2.0 Above high no rmal Lactic Acid Sepsis Protocol [facility]) ID Date Data Source [id number] 01/21/2020 02:10:00 PM EST [place] ([facility]) Name Value Range Interpretation Code Description Data Adriana rce(s) Supporting Document(s) lactic acid sepsis protocol 3.7 mmol/L 0.4-2.0 Above high no rmal Lactic Acid Sepsis Protocol [facility]) ID Date Data Source [id number] 01/21/2020 [facility]:10[facility] Name Value Range Interpretation Code Description Data Adriana rce(s) Supporting Document(s) lactic acid sepsis protocol 3.7 mmol/L 0.4-2.0 Above high no rmal Lactic Acid Sepsis Protocol [facility] ([facility]) ID Date Data Source [id number] 01/21/2020 02:10:00 PM EST [place] ([facility]) Name Value Range Interpretation Code Description Data Adriana rce(s) Supporting Document(s) lactic acid sepsis protocol 3.7 mmol/L 0.4-2.0 Above high no rmal Lactic Acid Sepsis Protocol [facility] ([facility]) ID Date Data Source [id number] 01/21/2020 02:10:00 PM EST [place] ([facility]) Name Value Range Interpretation Code Description Data Adriana rce(s) Supporting Document(s) lactic acid sepsis protocol 3.7 mmol/L 0.4-2.0 Above high no rmal [facility] ID Date Data Source [id number] 01/21/2020 02:09:00 PM [facility] Name Value Range Interpretation Code Description Data Adriana rce(s) Supporting Document(s) erythrocyte sedimentation rate 5 mm/HR 0-15 Eryth rocyte Sedimentation Rate [place] ([facility]) ID Date Data Source [id number] 01/21/2020 02:09:00 PM EST [place] ([facility]) Name Value Range Interpretation Code Description Data Adriana rce(s) Supporting Document(s) white blood count 9.1 10 4.0-10.0 White Blood Count [facility] ([facility]) hematocrit 45.6 % 42.0-52.0 Hematocrit [facility] ([facility]) hemoglobin 15.4 g/dL 13.5-17.5 Hemoglobin [facility] ([facility]) red blood count 5.30 10 4.30-6.10 Red Blood Count ATHE ([facility]) red cell distribution width 12.4 % 11.5-14.5 Red Cell Distribution Width [facility] ([facility]) mean corpuscular hemoglobin 29.1 pg 27.0-33.0 Mean Cor puscular Hemoglobin [facility] ([facility]) mean corpuscular HGB conc 33.8 g/dL 32.0-36.5 Mean Corpu scular HGB Conc [facility] ([facility]) mean corpuscular volume 86.0 fL 80.0-96.0 Mean Corpusc ular Volume [facility] ([facility]) platelet count, automated 378 10 150-450 Platelet C ount, Automated [place] ([facility]) mono % 6.9 % 0.0-5.0 Above high normal [place] % [facility] ([facility]) neutrophils % 65.4 % 36.0-66.0 Neutrophils % [place] ( [facility]) lymph % 25.8 % 24.0-44.0 Lymph % [place] ([facility]) immature granulocyte % 0.4 % 0-3.0 Immature Gran ulocyte % [facility] ([facility]) baso % 0.5 % 0.0-1.0 Baso % [facility] ([facility]) eos % 1.0 % 0.0-3.0 Eos % [place] ([facility]) nucleated red blood cell % 0.0 % 0-0 Nucleated Red Blood Cell % [facility] ([facility]) neutrophils # 6.0 10 1.5-8.5 Neutrophils # [facility] ( [facility]) lymph # 2.4 10 1.5-5.0 Lymph # [facility] ([facility]) mono # 0.6 10 0.0-0.8 [place] # [facility] ([facility]) eos # 0.1 10 0.0-0.5 Eos # [facility] ([facility]) baso # 0.1 10 0.0-0.2 Baso # [facility] ([facility]) ID Date Data Source [id number] 01/21/2020 02:09:00 PM EST [place] ([facility]) Name Value Range Interpretation Code Description Data Adriana rce(s) Supporting Document(s) prothrombin time 12.9 seconds 12.5-14.3 Prothrombin Time [facility] ([facility]) INR Inr [facility] ([facility]) partial thromboplastin time 29.2 seconds 24.2-38.5 Partial Thromboplastin Time [facility] ([facility]) ID Date Data Source [id number] 01/21/2020 02:09:00 PM EST [place] ([facility]) Name Value Range Interpretation Code Description Data Adriana rce(s) Supporting Document(s) C reactive protein quantitativ 0.30 mg/dL 0.00-0.30 C Reactive Protein Quantitativ [facility] ([facility]) ID Date Data Source [id number] 01/21/2020 02:09:00 PM EST [place] ([facility]) Name Value Range Interpretation Code Description Data Adriana rce(s) Supporting Document(s) lipase 94 U/L 73-393 Lipase [facility] ([facility]) ID Date Data Source [id number] 01/21/2020 02:09:00 PM EST [place] ([facility]) Name Value Range Interpretation Code Description Data Adriana rce(s) Supporting Document(s) blood urea nitrogen 15 mg/dL 7-18 Blood Urea Nitro gen [facility] ([facility]) glucose, fasting 113 mg/dL 70-100 Above high normal Glucose, Fas ting [facility] ([facility]) creatinine for GFR 1.05 mg/dL 0.70-1.30 Creatinine for GF R [place] ([facility]) glomerular filtration rate > 60.0 >60 Glomerula r Filtration Rate [facility] ([facility]) sodium level 138 mEq/L 136-145 Sodium Level [facility] ([facility]) potassium serum 4.9 mEq/L 3.5-5.1 Potassium Serum ATHE NA ([facility]) chloride level 103 mEq/L 98-107 Chloride Level [facility] ([facility]) carbon dioxide level 22 mEq/L 21-32 Carbon Dioxide Level [facility] ([facility]) calcium level 9.2 mg/dL 8.5-10.1 Calcium Level [facility] ( [facility]) anion gap 13 mEq/L 8-16 Anion Gap [facility] ([facility]) ID Date Data Source [id number] 01/21/2020 02:09:00 PM EST [place] ([facility]) Name Value Range Interpretation Code Description Data Adriana rce(s) Supporting Document(s) alkaline phosphatase 105 U/L 45-117 Alkaline Phosph atase [facility] ([facility]) ALT/SGPT 38 U/L 12-78 ALT/SGPT [place] ([facility]) AST/SGOT 10 U/L 7-37 AST/SGOT [place] ([facility]) bilirubin,direct < 0.1 0.0-0.2 Bilirubin,direct AT [facility] ([facility]) total protein 7.6 gm/dL 6.4-8.2 Total Protein [place] ( [facility]) bilirubin,total 0.3 mg/dL 0.2-1.0 Bilirubin,total [facility] ([facility]) albumin 3.7 gm/dL 3.2-5.2 Albumin [facility] ([facility]) albumin/globulin ratio Albumin/globu karina Ratio [facility] ([facility]) ID Date Data Source [id number] 01/21/2020 02:09:00 PM EST [place] ([facility]) Name Value Range Interpretation Code Description Data Adriana rce(s) Supporting Document(s) CPK creatine phosphokinase 85 U/L 39-308 CPK Creat ine Phosphokinase [facility] ([facility]) CK-mb value mass 2.2 NG/mL <3.6 CK-mb Value Mass AT [facility] ([facility]) troponin I < 0.02 < 0.10 Troponin I [place] ([facility]) mb/CK relative index < or =4 mb/CK Relative Index [facility] ([facility]) ID Date Data Source [id number] 01/21/2020 02:09:00 PM EST [place] ([facility]) Name Value Range Interpretation Code Description Data Adriana rce(s) Supporting Document(s) erythrocyte sedimentation rate 5 mm/HR 0-15 Eryth rocyte Sedimentation Rate [facility] ([facility]) ID Date Data Source [id number] 01/21/2020 02:09:00 PM EST [place] ([facility]) Name Value Range Interpretation Code Description Data Adriana rce(s) Supporting Document(s) white blood count 9.1 10 4.0-10.0 White Blood Count [facility] ([facility]) hemoglobin 15.4 g/dL 13.5-17.5 Hemoglobin [facility] ([facility]) red blood count 5.30 10 4.30-6.10 Red Blood Count [facility] ([facility]) hematocrit 45.6 % 42.0-52.0 Hematocrit [facility] ([facility]) mean corpuscular hemoglobin 29.1 pg 27.0-33.0 Mean Cor puscular Hemoglobin [facility] ([facility]) mean corpuscular volume 86.0 fL 80.0-96.0 Mean Corpusc ular Volume [facility] ([facility]) mean corpuscular HGB conc 33.8 g/dL 32.0-36.5 Mean Corpu scular HGB Conc [facility] ([facility]) red cell distribution width 12.4 % 11.5-14.5 Red Cell Distribution Width [facility] ([facility]) platelet count, automated 378 10 150-450 Platelet C ount, Automated [place] ([facility]) neutrophils % 65.4 % 36.0-66.0 Neutrophils % [place] ( [facility]) baso % 0.5 % 0.0-1.0 Baso % [facility] ([facility]) eos % 1.0 % 0.0-3.0 Eos % [place] ([facility]) mono % 6.9 % 0.0-5.0 Above high normal [place] % [facility] ([facility]) lymph % 25.8 % 24.0-44.0 Lymph % [place] ([facility]) nucleated red blood cell % 0.0 % 0-0 Nucleated Red Blood Cell % [facility] ([facility]) neutrophils # 6.0 10 1.5-8.5 Neutrophils # [facility] ( [facility]) immature granulocyte % 0.4 % 0-3.0 Immature Gran ulocyte % [facility] ([facility]) lymph # 2.4 10 1.5-5.0 Lymph # [facility] ([facility]) mono # 0.6 10 0.0-0.8 [place] # [facility] ([facility]) eos # 0.1 10 0.0-0.5 Eos # [place] ([facility]) baso # 0.1 10 0.0-0.2 Baso # [facility] ([facility]) ID Date Data Source [id number] 01/21/2020 02:09:00 PM EST [place] ([facility]) Name Value Range Interpretation Code Description Data Adriana rce(s) Supporting Document(s) prothrombin time 12.9 seconds 12.5-14.3 Prothrombin Time [facility] ([facility]) partial thromboplastin time 29.2 seconds 24.2-38.5 Partial Thromboplastin Time [facility] ([facility]) INR Inr [place] ([facility]) ID Date Data Source [id number] 01/21/2020 02:09:00 PM EST [place] ([facility]) Name Value Range Interpretation Code Description Data Adriana rce(s) Supporting Document(s) C reactive protein quantitativ 0.30 mg/dL 0.00-0.30 C Reactive Protein Quantitativ [facility] ([facility]) ID Date Data Source [id number] 01/21/2020 02:09:00 PM EST [place] ([facility]) Name Value Range Interpretation Code Description Data Adriana rce(s) Supporting Document(s) lipase 94 U/L 73-393 Lipase [facility] ([facility]) ID Date Data Source [id number] 01/21/2020 02:09:00 PM EST [place] ([facility]) Name Value Range Interpretation Code Description Data Adriana rce(s) Supporting Document(s) glucose, fasting 113 mg/dL 70-100 Above high normal Glucose, Fas ting [facility] ([facility]) blood urea nitrogen 15 mg/dL 7-18 Blood Urea Nitro gen [facility] ([facility]) creatinine for GFR 1.05 mg/dL 0.70-1.30 Creatinine for GF R [place] ([facility]) glomerular filtration rate > 60.0 >60 Glomerula r Filtration Rate [place] ([facility]) sodium level 138 mEq/L 136-145 Sodium Level [facility] ([facility]) chloride level 103 mEq/L 98-107 Chloride Level [place] ([facility]) potassium serum 4.9 mEq/L 3.5-5.1 Potassium Serum [facility] NA ([facility]) anion gap 13 mEq/L 8-16 Anion Gap [place] ([facility]) carbon dioxide level 22 mEq/L 21-32 Carbon Dioxide Level [place] ([facility]) calcium level 9.2 mg/dL 8.5-10.1 Calcium Level [place] ( [facility]) ID Date Data Source [id number] 01/21/2020 02:09:00 PM EST [place] ([facility]) Name Value Range Interpretation Code Description Data Adriana rce(s) Supporting Document(s) AST/SGOT 10 U/L 7-37 AST/SGOT [place] ([facility]) ALT/SGPT 38 U/L 12-78 ALT/SGPT [place] ([facility]) bilirubin,direct < 0.1 0.0-0.2 Bilirubin,direct AT [facility]) alkaline phosphatase 105 U/L 45-117 Alkaline Phosph atase [place] ([facility]) bilirubin,total 0.3 mg/dL 0.2-1.0 Bilirubin,total [facility] NA ([facility]) albumin 3.7 gm/dL 3.2-5.2 Albumin [facility] ([facility]) albumin/globulin ratio Albumin/globu karina Ratio [facility] ([facility]) total protein 7.6 gm/dL 6.4-8.2 Total Protein [facility] ( [facility]) ID Date Data Source [id number] 01/21/2020 02:09:00 PM EST [facility] ([facility]) Name Value Range Interpretation Code Description Data Adriana rce(s) Supporting Document(s) CPK creatine phosphokinase 85 U/L 39-308 CPK Creat ine Phosphokinase [facility] ([facility]) CK-mb value mass 2.2 NG/mL <3.6 CK-mb Value Mass AT [facility] ([facility]) mb/CK relative index < or =4 mb/CK Relative Index [facility] ([facility]) troponin I < 0.02 < 0.10 Troponin I [facility] ([facility]) ID Date Data Source [id number] 01/21/2020 02:09:00 PM EST [facility] ([facility]) Name Value Range Interpretation Code Description Data Adriana rce(s) Supporting Document(s) erythrocyte sedimentation rate 5 mm/HR 0-15 Eryth rocyte Sedimentation Rate [facility] ([facility]) ID Date Data Source [id number] 01/21/2020 02:09:00 PM EST [facility] ([facility]) Name Value Range Interpretation Code Description Data Adriana rce(s) Supporting Document(s) hematocrit 45.6 % 42.0-52.0 Hematocrit [facility] ([facility]) white blood count 9.1 10 4.0-10.0 White Blood Count [facility] ([facility]) red blood count 5.30 10 4.30-6.10 Red Blood Count [facility] NA ([facility]) hemoglobin 15.4 g/dL 13.5-17.5 Hemoglobin [facility] ([facility]) mean corpuscular volume 86.0 fL 80.0-96.0 Mean Corpusc ular Volume [facility] ([facility]) mean corpuscular HGB conc 33.8 g/dL 32.0-36.5 Mean Corpu scular HGB Conc [facility] ([facility]) mean corpuscular hemoglobin 29.1 pg 27.0-33.0 Mean Cor puscular Hemoglobin [facility] ([facility]) platelet count, automated 378 10 150-450 Platelet C ount, Automated [facility] ([facility]) red cell distribution width 12.4 % 11.5-14.5 Red Cell Distribution Width [facility] ([facility]) lymph % 25.8 % 24.0-44.0 Lymph % [facility] ([facility]) neutrophils % 65.4 % 36.0-66.0 Neutrophils % [facility] ( [facility]) eos % 1.0 % 0.0-3.0 Eos % [facility] ([facility]) immature granulocyte % 0.4 % 0-3.0 Immature Gran ulocyte % [facility] ([facility]) baso % 0.5 % 0.0-1.0 Baso % [facility] ([facility]) mono % 6.9 % 0.0-5.0 Above high normal [place] % [facility] ([facility]) mono # 0.6 10 0.0-0.8 [place] # [facility]IE ([facility]) lymph # 2.4 10 1.5-5.0 Lymph # [facility] ([facility]) neutrophils # 6.0 10 1.5-8.5 Neutrophils # [facility] ( [facility]) nucleated red blood cell % 0.0 % 0-0 Nucleated Red Blood Cell % [facility] ([facility]) baso # 0.1 10 0.0-0.2 Baso # [facility] ([facility]) eos # 0.1 10 0.0-0.5 Eos # [facility] ([facility]) ID Date Data Source [id number] 01/21/2020 02:09:00 PM EST [facility] ([facility]) Name Value Range Interpretation Code Description Data Adriana rce(s) Supporting Document(s) partial thromboplastin time 29.2 seconds 24.2-38.5 Partial Thromboplastin Time [facility] ([facility]) prothrombin time 12.9 seconds 12.5-14.3 Prothrombin Time AMRJORIE ([facility]) INR Inr [facility] ([facility]) ID Date Data Source [id number] 01/21/2020 02:09:00 PM EST [facility] ([facility]) Name Value Range Interpretation Code Description Data Adriana rce(s) Supporting Document(s) C reactive protein quantitativ 0.30 mg/dL 0.00-0.30 C Reactive Protein Quantitativ [place] ([facility]) ID Date Data Source [id number] 01/21/2020 02:09:00 PM EST [facility] ([facility]) Name Value Range Interpretation Code Description Data Adriana rce(s) Supporting Document(s) lipase 94 U/L 73-393 Lipase [place] ([facility]) ID Date Data Source [id number] 01/21/2020 02:09:00 PM EST [facility] ([facility]) Name Value Range Interpretation Code Description Data Adriana rce(s) Supporting Document(s) glucose, fasting 113 mg/dL 70-100 Above high normal Glucose, Fas ting [facility] ([facility]) blood urea nitrogen 15 mg/dL 7-18 Blood Urea Nitro gen [facility] ([facility]) sodium level 138 mEq/L 136-145 Sodium Level [facility] ([facility]) creatinine for GFR 1.05 mg/dL 0.70-1.30 Creatinine for GF R [facility] ([facility]) glomerular filtration rate > 60.0 >60 Glomerula r Filtration Rate [facility] ([facility]) chloride level 103 mEq/L 98-107 Chloride Level [facility] ([facility]) potassium serum 4.9 mEq/L 3.5-5.1 Potassium Serum [facility] NA ([facility]) carbon dioxide level 22 mEq/L 21-32 Carbon Dioxide Level [facility] ([facility]) calcium level 9.2 mg/dL 8.5-10.1 Calcium Level [facility] ( [facility]) anion gap 13 mEq/L 8-16 Anion Gap [facility] ([facility]) ID Date Data Source [id number] 01/21/2020 02:09:00 PM EST [facility] ([facility]) Name Value Range Interpretation Code Description Data Adriana rce(s) Supporting Document(s) AST/SGOT 10 U/L 7-37 AST/SGOT [facility] ([facility]) ALT/SGPT 38 U/L 12-78 ALT/SGPT [facility] ([facility]) alkaline phosphatase 105 U/L 45-117 Alkaline Phosph atase [facility] ([facility]) bilirubin,total 0.3 mg/dL 0.2-1.0 Bilirubin,total [facility] ([facility]) total protein 7.6 gm/dL 6.4-8.2 Total Protein [facility] ( [facility]) bilirubin,direct < 0.1 0.0-0.2 Bilirubin,direct AT [facility] ([facility]) albumin/globulin ratio Albumin/globu karina Ratio [facility] ([facility]) albumin 3.7 gm/dL 3.2-5.2 Albumin [facility] ([facility]) ID Date Data Source [id number] 01/21/2020 02:09:00 PM EST [facility] ([facility]) Name Value Range Interpretation Code Description Data Adriana rce(s) Supporting Document(s) CK-mb value mass 2.2 NG/mL <3.6 CK-mb Value Mass AT [facility]) CPK creatine phosphokinase 85 U/L 39-308 CPK Creat ine Phosphokinase [facility] ([facility]) mb/CK relative index < or =4 mb/CK Relative Index [facility] ([facility]) troponin I < 0.02 < 0.10 Troponin I [facility] ([facility]) ID Date Data Source [id number] 01/21/2020 02:09:00 PM EST [facility] ([facility]) Name Value Range Interpretation Code Description Data Adriana rce(s) Supporting Document(s) erythrocyte sedimentation rate 5 mm/HR 0-15 Eryth rocyte Sedimentation Rate [facility] ([facility]) ID Date Data Source [id number] 01/21/2020 02:09:00 PM EST [facility] ([facility]) Name Value Range Interpretation Code Description Data Adriana rce(s) Supporting Document(s) red blood count 5.30 10 4.30-6.10 Red Blood Count [facility] ([facility]) white blood count 9.1 10 4.0-10.0 White Blood Count [facility] ([facility]) mean corpuscular volume 86.0 fL 80.0-96.0 Mean Corpusc ular Volume [facility] ([facility]) hemoglobin 15.4 g/dL 13.5-17.5 Hemoglobin [facility] ([facility]) mean corpuscular hemoglobin 29.1 pg 27.0-33.0 Mean Cor puscular Hemoglobin [facility] ([facility]) hematocrit 45.6 % 42.0-52.0 Hematocrit [facility] ([facility]) neutrophils % 65.4 % 36.0-66.0 Neutrophils % [facility] ( [facility]) platelet count, automated 378 10 150-450 Platelet C ount, Automated [facility] ([facility]) red cell distribution width 12.4 % 11.5-14.5 Red Cell Distribution Width [facility] ([facility]) mean corpuscular HGB conc 33.8 g/dL 32.0-36.5 Mean Corpu scular HGB Conc [facility] ([facility]) mono % 6.9 % 0.0-5.0 Above high normal [place] % [facility] ([facility]) baso % 0.5 % 0.0-1.0 Baso % [facility] ([facility]) eos % 1.0 % 0.0-3.0 Eos % [facility] ([facility]) lymph % 25.8 % 24.0-44.0 Lymph % [facility] ([facility]) neutrophils # 6.0 10 1.5-8.5 Neutrophils # [facility] ( [facility]) immature granulocyte % 0.4 % 0-3.0 Immature Gran ulocyte % [facility] ([facility]) lymph # 2.4 10 1.5-5.0 Lymph # [facility] ([facility]) nucleated red blood cell % 0.0 % 0-0 Nucleated Red Blood Cell % [facility] ([facility]) eos # 0.1 10 0.0-0.5 Eos # [facility] ([facility]) mono # 0.6 10 0.0-0.8 [place] # [facility] ([facility]) baso # 0.1 10 0.0-0.2 Baso # [facility] ([facility]) ID Date Data Source [id number] 01/21/2020 02:09:00 PM EST [facility] ([facility]) Name Value Range Interpretation Code Description Data Adriana rce(s) Supporting Document(s) prothrombin time 12.9 seconds 12.5-14.3 Prothrombin Time [facility] ([facility]) partial thromboplastin time 29.2 seconds 24.2-38.5 Partial Thromboplastin Time [facility] ([facility]) INR Inr [facility] ([facility]) ID Date Data Source [id number] 01/21/2020 02:09:00 PM EST [facility] ([facility]) Name Value Range Interpretation Code Description Data Adriana rce(s) Supporting Document(s) C reactive protein quantitativ 0.30 mg/dL 0.00-0.30 C Reactive Protein Quantitativ [facility] ([facility]) ID Date Data Source [id number] 01/21/2020 02:09:00 PM EST [facility] ([facility]) Name Value Range Interpretation Code Description Data Adriana rce(s) Supporting Document(s) lipase 94 U/L 73-393 Lipase [facility] ([facility]) ID Date Data Source [id number] 01/21/2020 02:09:00 PM EST [facility] ([facility]) Name Value Range Interpretation Code Description Data Adriana rce(s) Supporting Document(s) blood urea nitrogen 15 mg/dL 7-18 Blood Urea Nitro gen [facility] ([facility]) glucose, fasting 113 mg/dL 70-100 Above high normal Glucose, Fas ting [facility] ([facility]) glomerular filtration rate > 60.0 >60 Glomerula r Filtration Rate [facility] ([facility]) potassium serum 4.9 mEq/L 3.5-5.1 Potassium Serum [facility] NA ([facility]) creatinine for GFR 1.05 mg/dL 0.70-1.30 Creatinine for GF R [facility] ([facility]) sodium level 138 mEq/L 136-145 Sodium Level [facility] ([facility]) carbon dioxide level 22 mEq/L 21-32 Carbon Dioxide Level AMRJORIE ([facility]) anion gap 13 mEq/L 8-16 Anion Gap [facility] ([facility]) chloride level 103 mEq/L 98-107 Chloride Level [facility] ([facility]) calcium level 9.2 mg/dL 8.5-10.1 Calcium Level [facility] ( [facility]) ID Date Data Source [id number] 01/21/2020 02:09:00 PM EST [facility] ([facility]) Name Value Range Interpretation Code Description Data Adriana rce(s) Supporting Document(s) AST/SGOT 10 U/L 7-37 AST/SGOT [facility] ([facility]) alkaline phosphatase 105 U/L 45-117 Alkaline Phosph atase [facility] ([facility]) ALT/SGPT 38 U/L 12-78 ALT/SGPT [facility] ([facility]) bilirubin,total 0.3 mg/dL 0.2-1.0 Bilirubin,total [facility] NA ([facility]) bilirubin,direct < 0.1 0.0-0.2 Bilirubin,direct AT [facility] ([facility]) total protein 7.6 gm/dL 6.4-8.2 Total Protein [facility] ( [facility]) albumin/globulin ratio Albumin/globu karina Ratio [facility] ([facility]) albumin 3.7 gm/dL 3.2-5.2 Albumin [facility] ([facility]) ID Date Data Source [id number] 01/21/2020 02:09:00 PM EST [facility] ([facility]) Name Value Range Interpretation Code Description Data Adriana rce(s) Supporting Document(s) CPK creatine phosphokinase 85 U/L 39-308 CPK Creat ine Phosphokinase [facility] ([facility]) mb/CK relative index < or =4 mb/CK Relative Index [facility] ([facility]) troponin I < 0.02 < 0.10 Troponin I [facility] ([facility]) CK-mb value mass 2.2 NG/mL <3.6 CK-mb Value Mass AT [facility] ([facility]) ID Date Data Source [id number] 01/21/2020 02:09:00 PM EST [facility] ([facility]) Name Value Range Interpretation Code Description Data Adriana rce(s) Supporting Document(s) erythrocyte sedimentation rate 5 mm/HR 0-15 Eryth rocyte Sedimentation Rate [facility] ([facility]) ID Date Data Source [id number] 01/21/2020 02:09:00 PM EST [facility] ([facility]) Name Value Range Interpretation Code Description Data Adriana rce(s) Supporting Document(s) red blood count 5.30 10 4.30-6.10 Red Blood Count [facility] NA ([facility]) white blood count 9.1 10 4.0-10.0 White Blood Count [facility] ([facility]) hematocrit 45.6 % 42.0-52.0 Hematocrit [facility] ([facility]) mean corpuscular volume 86.0 fL 80.0-96.0 Mean Corpusc ular Volume [facility] ([facility]) mean corpuscular hemoglobin 29.1 pg 27.0-33.0 Mean Cor puscular Hemoglobin [facility] ([facility]) hemoglobin 15.4 g/dL 13.5-17.5 Hemoglobin [facility] ([facility]) neutrophils % 65.4 % 36.0-66.0 Neutrophils % [facility] ( [facility]) red cell distribution width 12.4 % 11.5-14.5 Red Cell Distribution Width [facility] ([facility]) platelet count, automated 378 10 150-450 Platelet C ount, Automated [facility] ([facility]) mean corpuscular HGB conc 33.8 g/dL 32.0-36.5 Mean Corpu scular HGB Conc [facility] ([facility]) lymph % 25.8 % 24.0-44.0 Lymph % [facility] ([facility]) mono % 6.9 % 0.0-5.0 Above high normal [place] % [facility] ([facility]) eos % 1.0 % 0.0-3.0 Eos % [facility] ([facility]) baso % 0.5 % 0.0-1.0 Baso % [place] ([facility]) immature granulocyte % 0.4 % 0-3.0 Immature Gran ulocyte % [facility] ([facility]) nucleated red blood cell % 0.0 % 0-0 Nucleated Red Blood Cell % [facility] ([facility]) mono # 0.6 10 0.0-0.8 [place] # [facility] ([facility]) lymph # 2.4 10 1.5-5.0 Lymph # [facility] ([facility]) neutrophils # 6.0 10 1.5-8.5 Neutrophils # [facility] ( [facility]) baso # 0.1 10 0.0-0.2 Baso # [facility] ([facility]) eos # 0.1 10 0.0-0.5 Eos # [facility] ([facility]) ID Date Data Source [id number] 01/21/2020 02:09:00 PM EST [facility] ([facility]) Name Value Range Interpretation Code Description Data Adriana rce(s) Supporting Document(s) prothrombin time 12.9 seconds 12.5-14.3 Prothrombin Time [facility] ([facility]) partial thromboplastin time 29.2 seconds 24.2-38.5 Partial Thromboplastin Time [facility] ([facility]) INR Inr [facility] ([facility]) ID Date Data Source [id number] 01/21/2020 02:09:00 PM EST [facility] ([facility]) Name Value Range Interpretation Code Description Data Adriana rce(s) Supporting Document(s) C reactive protein quantitativ 0.30 mg/dL 0.00-0.30 C Reactive Protein Quantitativ [facility] ([facility]) ID Date Data Source [id number] 01/21/2020 02:09:00 PM EST [facility] ([facility]) Name Value Range Interpretation Code Description Data Adriana rce(s) Supporting Document(s) lipase 94 U/L 73-393 Lipase [facility] ([facility]) ID Date Data Source [id number] 01/21/2020 02:09:00 PM EST [facility] ([facility]) Name Value Range Interpretation Code Description Data Adriana rce(s) Supporting Document(s) creatinine for GFR 1.05 mg/dL 0.70-1.30 Creatinine for GF R [place] ([facility]) blood urea nitrogen 15 mg/dL 7-18 Blood Urea Nitro gen [facility] ([facility]) glucose, fasting 113 mg/dL 70-100 Above high normal Glucose, Fas ting [place] ([facility]) potassium serum 4.9 mEq/L 3.5-5.1 Potassium Serum [facility] ([facility]) glomerular filtration rate > 60.0 >60 Glomerula r Filtration Rate [facility] ([facility]) sodium level 138 mEq/L 136-145 Sodium Level [facility] ([facility]) carbon dioxide level 22 mEq/L 21-32 Carbon Dioxide Level [facility] ([facility]) calcium level 9.2 mg/dL 8.5-10.1 Calcium Level [facility] ( [facility]) anion gap 13 mEq/L 8-16 Anion Gap [facility] ([facility]) chloride level 103 mEq/L 98-107 Chloride Level [facility] ([facility]) ID Date Data Source [id number] 01/21/2020 02:09:00 PM EST [facility] ([facility]) Name Value Range Interpretation Code Description Data Adriana rce(s) Supporting Document(s) ALT/SGPT 38 U/L 12-78 ALT/SGPT [facility] ([facility]) alkaline phosphatase 105 U/L 45-117 Alkaline Phosph atase [facility] ([facility]) AST/SGOT 10 U/L 7-37 AST/SGOT [facility] ([facility]) total protein 7.6 gm/dL 6.4-8.2 Total Protein [facility] ( [facility]) bilirubin,total 0.3 mg/dL 0.2-1.0 Bilirubin,total [facility] ([facility]) bilirubin,direct < 0.1 0.0-0.2 Bilirubin,direct AT [facility]) albumin 3.7 gm/dL 3.2-5.2 Albumin [facility] ([facility]) albumin/globulin ratio Albumin/globu karina Ratio [facility] ([facility]) ID Date Data Source [id number] 01/21/2020 02:09:00 PM EST [facility] ([facility]) Name Value Range Interpretation Code Description Data Adriana rce(s) Supporting Document(s) CPK creatine phosphokinase 85 U/L 39-308 CPK Creat ine Phosphokinase [facility] ([facility]) CK-mb value mass 2.2 NG/mL <3.6 CK-mb Value Mass AT [facility] ([facility]) mb/CK relative index < or =4 mb/CK Relative Index [facility] ([facility]) troponin I < 0.02 < 0.10 Troponin I [facility] ([facility]) ID Date Data Source [id number] 01/07/2020 12:36:46 PM EST [facility] NT INFORMATIONPatient MRN Name Date of Age Gend*PT [id number] Delonte Zamorano 1985 34 years M OBSPT Location Admission Date/Time Visit ID Attending [id number] 01/04/202121 --- --- EPI ID CSN Admitting Provider [id number] Reji Griggs MD([id number]) Attestation signed by Alfie Hopper DO at 01/07/2020 12:36 PMProcedure performed under my supervision, I agree with above report.Alfie Hopper DO 01/07/2020 12:36 PMDepartment of Interventional Radiology ---------Brief Operative/Invasive Procedure Stefania Betsy JaunDATE OF : 1985MRN # [id number] DATE: 01/06/2020PROVIDER:Dr. HopperPROCEDURE:US guided lumbar fluid collection aspiration - Approx 4 cc of clear,yellow fluid aspiratedPRE-PROCEDURE DIAGNOSIS:Lumbar fluid collectionPOST PROCEDURE DIAGNOSIS:Lumbar fluid collectionANESTHESIA TYPE:local - 1% lidocaine (2cc)DRAINS:NoneSPECIMENS:Lumbar fluidESTIMATED BLOOD LOSS: MinimalGRAFTS OR IMPLANTS:NoneFINDINGS: Consistent with operative diagnosisCOMPLICATIONS: NoneScott Channels, PADepartment of Interventional Radiology Name Value Range Interpretation Code Description Data Adriana rce(s) Supporting Document(s) ID Date Data Source [id number] 01/06/2020 04:58:59 PM EST [address] [address]Kvykbtx Name: DELONTE ZAMORANODOB: 1985Sex: MOrdering Provider: MARIMAR Mejias Prov: MARIMAR Whitten Provider: Procedure Performed: IR US GUIDED NEEDLE PLACEMENTExam Date: 01/06/2020 16:00MRN: [id number] Number: [id number] Class: OutpatientAccount #: [id number] for Exam: lumbar fluid collection on MRI [...] made. Using real-time ultrasound guidance a 5 Maced[place] Yueh needle was advanced into the small [...] ALFIE HOPPER On 01/06/2020 4:58 PMWorkstation ID: [id number] Name Value Range Interpretation Code Description Data Adriana rce(s) Supporting Document(s) ID Date Data Source [id number] 01/06/2020 04:51:58 PM EST [facility] CenterPAT[facility] NT INFORMATIONPatient MRN Name Date of Age Gend*PT [id number] Delonte Zamorano 1985 34 years M OBSPT Location Admission Date/Time Visit ID Attending [id number] 01/04/202121 --- Reji Griggs MD([id number]) EPI ID CSN Admitting Provider [id number] Reji Griggs MD([id number]) Attestation signed by Reji Griggs MD at 01/06/2020 4:51 PMWBC normal todayFluid aspirated today by IR--"clear"D/c to homeSignature: JEFF Pradhanate: January 06, 2020Time: 4:50 PM --ORTHOPEDIC DISCHARGE SUMMARYPatient Name: Delonte Zamorano of : 1985 Age 34 yearsPrimary Physician: PCP PROVIDER REQUESTED PCP Phone: NoneAdmission Date: 01/04/2020 Discharge Date: 01/06/2020Admission Provider: Reji Griggs MD Discharge Provider: KIAN Sanchezischarge Diagnoses:Principal Problem: Post-op painActive Problems: Spondylolisthesis at L5-S1 level Herniated nucleus pulposus, L5-T4Desopyta Problems: * No resolved hospital problems. *Surgical [...] details.Discharge disposition: He will be discharged from [facility] to home in good condition.Discharge Weight [...] 4 cc clear fluidConsults:noneSignature: Cleve Sanchez [phone]: January 06, 2020Time: 4:36 PM Name Value Range Interpretation Code Description Data Adriana rce(s) Supporting Document(s) ID Date Data Source [id number] 01/08/2020 09:58:38 AM EST [facility] SPECIMEN DESCRIPTION CEREBROSPINA L FLUID LUMBARSPECIAL REQUESTS NONEGRAM STAIN NO WHITE BLOOD CELLS NO BACTERIACULTURE RESULTS NO GROWTHREPORT STATUS FINAL 01/08/2020 Name Value Range Interpretation Code Description Data Adriana rce(s) Supporting Document(s) ID Date Data Source [id number] 01/06/2020 10:29:00 PM EST [facility] SPECIMEN DESCRIPTION CEREBROSPINA L FLUIDSPECIAL REQUESTS NONEGRAM STAIN NOT DONECULTURE RESULTS WRONG TEST ORDERED BY LAB ORDERED IN ERROR. [id number].REPORT STATUS FINAL 01/06/2020 Name Value Range Interpretation Code Description Data Adriana rce(s) Supporting Document(s) ID Date Data Source [id number] 01/06/2020 10:28:25 PM EST [facility] SPECIMEN DESCRIPTION CEREBROSPINA L FLUIDSPECIAL REQUESTS NONECULTURE RESULTS WRONG TEST ORDERED BY LAB ORDERED IN ERRORREPORT STATUS FINAL 01/06/2020 Name Value Range Interpretation Code Description Data Adriana rce(s) Supporting Document(s) ID Date Data Source [id number] 01/06/2020 10:27:25 PM EST [facility] SPECIMEN DESCRIPTION WOUND LUMBAR FLUIDSPECIAL REQUESTS NONEGRAM STAIN NOT DONECULTURE RESULTS TEST(S) PROCESSED UNDER NEW ENTRY PLEASE SEE [id number] CSF. [id number].REPORT STATUS FINAL 01/06/2020 Name Value Range Interpretation Code Description Data Adriana rce(s) Supporting Document(s) ID Date Data Source [id number] 01/06/2020 12:53:35 PM EST [facility] Name Value Range Interpretation Code Description Data Adriana rce(s) Supporting Document(s) PT 10.8 s (9.2-11.9) [facility] INR 1.03 [facility] SUGGESTED THERAPEUTIC RANGES USING INR F ORSTABILIZED ANTICOAGULATED PATIENTS:STANDARD DOSE THERAPY INR 2.0-3.0 DVT, PE, PREVENT DVT OR EMBOLISMHIGH DOSE THERAPY INR 2.5-3.5 PREVENT EMBOLISM FROM MECHANICAL HEART VALVE ID Date Data Source [id number] 01/06/2020 07:20:02 AM EST [facility] Name Value Range Interpretation Code Description Data Adriana rce(s) Supporting Document(s) WBC 7.3 10*3/uL (4.1-11.0) [facility] [place] RBC 4.94 10*6/uL (4.60-6.10) [facility] HGB 15.1 g/dL (13.5-18.0) [facility] HCT 43.7 % (41.0-53.0) [facility] PERFOR[facility] AT [address] [place] [address] [place] [address] MCV 88.4 fL (80.0-95.0) [facility] MCH 30.5 pg (27.0-32.0) [facility] MCHC 34.5 g/dL (32.0-36.0) [facility] RDW 13.4 % (10.5-14.5) [facility] PLT 333 10*3/uL (150-450) [facility] MPV 7.9 fL (7.1-10.7) [facility] NEUT % 43.1 % (35.0-75.0) [facility] LYMPH % 42.1 % (16.0-52.0) [facility] MONO % 9.9 % (0.0-8.0) H [facility] EOS % 3.7 % (0.0-5.0) [facility] BASO % 1.2 % (0.0-4.0) [facility] NEUT # 3.1 10*3/uL (1.8-7.7) [facility] LYMPH # 3.1 10*3/uL (1.2-4.8) [facility] MONO # 0.7 10*3/uL (0.0-0.8) [facility] Eosinophils [#/volume] in Blood by Automated count 0.3 10*3/uL (0.0-0 .5) [facility] BASO # 0.1 10*3/uL (0.0-0.2) [facility] ID Date Data Source [id number] 01/05/2020 06:18:[address] [address]Mgdtwop Name: Delonte ZamoranoB: 1985Sex: MOrdering Provider: MARIMAR Mejias Prov: MARIMAR Whitten Provider: Procedure Performed: MRI LUMBAR SPINE W WO CONTRASTExam Date: 01/05/2020 16:23MRN: [id number] Number: [id number] Class: INFORMATION: Exam: MR Lumbar Spine Without [...] rce(s) Supporting Document(s) ID Date Data Source [id number] 01/05/2020 09:44:[address] [facility] [address] [place] [address] RESPIRATORY CARE REPORT ==== ---------NAME------- NUMBER SEX AGE ADMIT DISC. XRAY# F/C TYPEMURPHY DELONTE Meyer [id number] M 34 01/04/20 01/04/20 [id number] X6B E/R DATE OF : 1985 M/R# [id number] #: [id number] TR-06 LOCATION: [place] [id number] COMP LETE:01/05/20 01:42 T [id number] PHYSICIAN: KEYA PADRON Name Value Range Interpretation Code Description Data Adriana rce(s) Supporting Document(s) ID Date Data Source [id number] 01/05/2020 07:37:51 AM EST [address] [address] Name: DELONTE ZAMORANODOB: 1985Sex: MOrdering Provider: CHAIM Pisano Prov: CHAIM Lay Provider: Procedure Performed: XR LUMBAR SPINE AP AND LATERALExam Date: 01/05/2020 01:41MRN: [id number] Number: [id number] Class: OutpatientAccount #: [id number] for Exam: s/p l5-S1 fusion now with [...] SPENCER JENNINGS On 01/05/2020 7:37 AMWorkstation ID: [id number] Name Value Range Interpretation Code Description Data Adriana rce(s) Supporting Document(s) ID Date Data Source [id number] 01/05/2020 07:20:58 AM EST [facility] NT INFORMATIONPatient MRN Name Date of Age Gend*PT [id number] Delonte Zamorano 1985 34 years M OBSPT Location Admission Date/Time Visit ID Attending [id number] 01/04/202121 --- Daren Richard MD([id number]) EPI ID CSN Admitting Provider [id number] Daren Richard MD([id number]) Attestation signed by Reji Griggs MD at 01/05/2020 7:20 AMSignature: JEFF Pradhanate: January 05, 2020Time: 7:20 AM --Ortho H+P NoteSaure ZamoranoMRN: [id number] Physician: Dr. Pope referred by:Juan Carlos Marks [...] walkerapproximately 5 weeks ago. Patient states on he lifted up hisson as he has done numerous at times postoperatively without issue. But thistime he felt significant back pain with shooting right lower extremity burningpain exacerbated with touch or weightbearing. He was [facility] department today but [facility] departmentfor [facility]. [...] patient during rounds.Chaim BASSETTCSignature: [phone]: January 05, 2020Time: 12:54 AM Name Value Range Interpretation Code Description Data Adriana rce(s) Supporting Document(s) ID Date Data Source [id number] 01/05/2020 07:18:07 AM EST [facility] NT INFORMATIONPatient MRN Name Date of Age Gend*PT [id number] Delonte Zamorano 1985 34 years M OBSPT Location Admission Date/Time Visit ID Attending [id number] 01/04/202121 --- Daren Richard MD([id number]) EPI ID CSN Admitting Provider [id number] Daren Richard MD([id number])Ortho H&P NoteChief Complaint: Lower back pain/right lower extremity pain/tinglingSean Betsy ZamoranoMRN: [id number] and Recommendations:Principal Problem: Post-op painActive Problems: Spondylolisthesis at L5-S1 level Herniated nucleus pulposus, L5-S1 1. Acute onset lower back pain/right lower extremity numbness/tingling: NeedsMRI for further evaluation-MRI ordered. Apparently MRI cannot be performedwhile in the emergency room last p.m. Further recommendations after MRIobtained and reviewedLabs/Imaging/Other diagnostics:X-rays lumbar spine [facility] 01/05/2020: Hardware in good position. GoodalignmentHistory of Present Illness: 34-year-old male status post L5-S1 TLIF 09/30/2019.Did well postoperatively. Preoperative symptoms were down the left lowerextremity. However states on , was lifting his son developedsome lower back pain. Woke up Sunday morning with severe pain in the backrating down the right lower extremity. [facility] roomand then transferred to [facility] for further evaluation treatment. Besides alower [...] Reji Griggs, MDDate: January 05, 2020Time: 7:10 [facility]:Daren Richard MD Name Value Range Interpretation Code Description Data Adriana rce(s) Supporting Document(s) ID Date Data Source [id number] 01/11/2020 11:10:42 AM EST [facility] SPECIMEN DESCRIPTION PERIPHERAL LEFTSPECIAL REQUESTS NONECULTURE RESULTS NO GROWTH 6 DAYSREPORT STATUS FINAL 01/11/2020 Name Value Range Interpretation Code Description Data Adriana rce(s) Supporting Document(s) ID Date Data Source [id number] 01/11/2020 11:10:42 AM EST [facility] SPECIMEN DESCRIPTION PERIPHERAL RIGHTSPECIAL REQUESTS NONECULTURE RESULTS NO GROWTH 6 DAYSREPORT STATUS FINAL 01/11/2020 Name Value Range Interpretation Code Description Data Adriana rce(s) Supporting Document(s) ID Date Data Source [id number] 01/04/2020 11:06:43 PM EST [facility] NT INFORMATIONPatient MRN Name Date of Age Gend*PT [id number] Delonte Zamorano 1985 34 years M EDPT Location Admission Date/Time Visit ID Attending [id number] 01/04/202121 --- Nicolas An MD([id number]) EPI ID CSN Admitting Provider [id number] ---Provider in Triage NotesNo notes on fileHistory of Present IllnessChief ComplaintPatient presents with Post-op Problem Per EMS- Pt had back surgery at [facility] on 10/01/2019. The pain has returned andworsened over the past 2 days at which point pt presented to [facility].Transferred here for further workup and MRI.34-year-old [...] He has a normal mood and affect.ED [id number]:00 Dr Hilary from Orth[facility] spine, freda admit to his service for MRI in [facility] was electronically signed by Nicolas An MD, 01/04/20 10:01 PM.Nicolas An MD01/04/20 2306 Name Value Range Interpretation Code Description Data Adriana rce(s) Supporting Document(s) ID Date Data Source [id number] 01/04/2020 10:09:00 PM EST [facility] Name Value Range Interpretation Code Description Data Adriana rce(s) Supporting Document(s) SARS coronavirus 2 RNA [Presence] in Res piratory specimen by BINA with probe detection [facility] This lab was reported by [facility]. ID Date Data Source [id number] 01/05/2020 12:23:19 AM EST [facility] Name Value Range Interpretation Code Description Data Adriana rce(s) Supporting Document(s) SPECIMEN DESCRIPTION [facility] INFLUENZA A (NEG) [facility] INFLUENZA B (NEG) [facility] RSV (NEG) [facility] COMMENT [facility] UNDER AN EMERGENCY USE AUTHORIZATION(EUA ) FOR THE DETECTION AND/OR DIAGNOSISOF THE VIRUS THAT CAUSES COVID-19.PERFORMED AT [address] [place] [address] COVID19 RESULT (NDET) [facility] THIS ASSAY AMPLIFIES AND DETECTSTHE TARG ET RNA USING REAL-TIME PCR.NEGATIVE 2019_NCOV RT-PCR RESULTS DONOT PRECLUDE 2019_NCOV INFECTION ANDSHOULD NOT BE USED THE SOLE BASISFOR PATIENT MANAGEMENT DECISIONS. FIRST TEST [facility] [employer] SYMPTOMATIC [facility] DATE OF SYMPT ONSET [facility] HOSPITALIZED [facility] ICU [facility] CONGREGATE CARE SET [facility] ID Date Data Source [id number] 01/04/2020 11:08:54 PM EST [facility] Name Value Range Interpretation Code Description Data Adriana rce(s) Supporting Document(s) SODIUM 137 mmol/L (136-145) [facility] POTASSIUM 4.1 mmol/L (3.6-5.2) [facility] CHLORIDE 106 mmol/L (100-108) [facility] CO2 23 mmol/L (22-31) [facility] ANION GAP 8 mmol/L (7-16) [facility] UREA NITROGEN 15 mg/dL (7-24) [facility] CREATININE 0.98 mg/dL (0.80-1.30) [facility] BUN/CREAT RATIO 15.3 RATIO (10.0-20.0) [facility] GLUCOSE 127 mg/dL (70-99) H [facility] CALCIUM 9.0 mg/dL (8.4-10.2) [facility] TOTAL PROTEIN 7.9 g/dL (6.4-8.2) [facility] ALBUMIN 4.0 g/dL (3.5-4.6) [facility] GLOBULIN 3.9 g/dL (2.7-4.3) [facility] ALB/GLOB RATIO 1.0 RATIO [facility] ALKALINE PHOSPHATASE 106 U/L (45-117) [facility] BILIRUBIN,TOTAL 0.5 mg/dL (0.0-1.0) [facility] PLEASE NOTE:Total bilirubin results may be falselyelevated in patients taking Eltrombopag. AST (SGOT) 72 U/L (11-39) H [facility] ALT (SGPT) 84 U/L (12-78) H [facility] GFR >60 ml/min/1.73m2 (>59) [facility] GFR ( AMER) >60 ml/min/1.73m2 (>59) [facility] GFR INTERPRETATION [facility] --NORMAL KIDNEY FUNCTION OR MILD DISEASE - GFR >OR= 60CHRONIC KIDNEY DISEASE - GFR 15 - 59RENAL FAILURE - GFR <15 Est. GFR calculation based on the MDRDstudy equation, which assumes a steadystate for creatinine. Est. GFR should notbe used for medication dosing. ID Date Data Source [id number] 01/04/2020 10:47:51 PM EST [facility] Name Value Range Interpretation Code Description Data Adriana rce(s) Supporting Document(s) WBC 15.2 10*3/uL (4.1-11.0) H [facility] RBC 5.39 10*6/uL (4.60-6.10) [facility] HGB 16.2 g/dL (13.5-18.0) [facility] HCT 46.7 % (41.0-53.0) [facility] MCV 86.5 fL (80.0-95.0) [facility] MCH 30.1 pg (27.0-32.0) [facility] MCHC 34.8 g/dL (32.0-36.0) [facility] RDW 13.5 % (10.5-14.5) [facility] PLT 373 10*3/uL (150-450) [facility] MPV 8.0 fL (7.1-10.7) [facility] NEUT % 90.9 % (35.0-75.0) H [facility] LYMPH % 7.0 % (16.0-52.0) L [facility] MONO % 1.6 % (0.0-8.0) [facility] EOS % 0.1 % (0.0-5.0) [facility] BASO % 0.4 % (0.0-4.0) [facility] NEUT # 13.8 10*3/uL (1.8-7.7) H [facility] LYMPH # 1.1 10*3/uL (1.2-4.8) L [facility] MONO # 0.2 10*3/uL (0.0-0.8) [facility] Eosinophils [#/volume] in Blood by Automated count 0.0 10*3/uL (0.0-0 .5) [facility] BASO # 0.1 10*3/uL (0.0-0.2) [facility] ID Date Data Source [id number] 01/04/2020 04:23:00 PM EST [facility] 1 OrderSheet [facility] Emergency Department [address] [place] [address] Phone #: ext- [phone] 01/04/2020 16:17 Patient: [...] Sorbero,(NOW x1, HIGH Almaz Valle MD; Suraj R.NMorrisALERTMEDICATION)predniSONE PO 60 17:09 01/04/2020 17:15 Sorbero,mg (NOW x1) Almaz Valle MD; Suraj KuhnAcetaminophen IV 18:16 01/04/2020 18:51 Sorbero, 2 OrderSheet [facility] Emergency Department [address] [place] [address] Phone #: ext- [phone] 01/04/2020 16:17 Patient: DELONTE ZAMORANO Sex: M : 1985 Age: [id number] mg (NOW x1, Almaz Valle MD; Suraj R.NMorrisInfuse over 15minutes)Toradol IVP 30 mg 18:16 01/04/2020 18:50 Barb,(NOW x1) Almaz Valle MD; Suraj R.NMorrisIV NS 1000 mL 18:16 01/04/2020 18:50 Barb,Bolus : Bolus 1000 Almaz Valle MD; Suraj R.N.mL (X1)GENERAL ORDERSOrder Description Priority Entered Acknowledged InitialedEKG 18:15 01/04/2020 18:34 Leonard Day Norma MD; Suraj SilvaNMorris[Electronically signed by Almaz Valle MD (19:53 01/04/2020)][Electronically signed by Suraj Day R.N. (20:08 01/04/2020)][Electronically locked by Suraj Day R.N. (20:08 01/04/2020)] Name Value Range Interpretation Code Description Data Adriana rce(s) Supporting Document(s) ID Date Data Source [id number] 01/04/2020 04:23:00 PM EST [facility] 1 Medication Reconciliation Report [facility] Emergency Department [address] [place] [address] Phone #: ext- [phone] 01/04/2020 16:17 Patient: [...] rce(s) Supporting Document(s) ID Date Data Source [id number] 01/04/2020 04:23:00 PM EST [facility] 1 Medication Administration Record [facility] Emergency Department [address] [place] [address] Phone #: ext- [phone] 01/04/2020 16:17 Patient: [...] IV NS 1000 mL Bolus : Bolus [id number] 01/04/2020 Dose: IV Fluids mL (X1)Suraj Day R.N. Rate: 1500 mL/hr over 40 minute(s)---- Dispensed: 1000 mL bagStop Site: #1 left AC19:37 01/04/2020Suraj Day R.N. Name Value Range Interpretation Code Description Data Adriana rce(s) Supporting Document(s) ID Date Data Source [id number] 01/04/2020 04:23:00 PM EST [facility] 1 General Instructions [facility] Emergency Department [address] [place] [address] Phone #: ext- [phone] 01/04/2020 16:17 Patient: [...] people can remain active. 2 General Instructions [facility] Emergency Department [address] [place] [address] Phone #: ext- [phone] 01/04/2020 16:17 Patient: [...] with your knees bent 3 General Instructions [facility] Emergency Department [address] [place] [address] Phone #: ext- [phone] 01/04/2020 16:17 Patient: [...] or are takingother medicines. You may use oebo-xlk-cnhzxqb medicine as directed on the bottle to [...] may affect your care. 4 General Instructions [facility] Emergency Department [address] [place] [address] Phone #: ext- [phone] 01/04/2020 16:17 [id number] Sex: M : 1985 Age: 34yCall 911Call [...] Numbness in the groin or genital area [id number] [employer]. [address] [place] [address]. All rights reserved. This information is not [...] medicines you take. This includes prescription and cksr-nmf-ohfmnui medicines, vitamins, and herbs. Ask if any of the medicines may be causing 5 General Instructions [facility] Emergency Department [address] [place] [address] Phone #: ext- [phone] 01/04/2020 16:17 Patient: [...] Open wound with redness, swelling, or pus 5529-6313 [employer] [address] [place] [address]. All rights reserved. This information is not intended as asubstitute for professional medical care. Always follow your healthcare professional's instructions. You have been given the following additional information: Back Pain (Acute or Chronic) Paraesthesias 6 General Instructions [facility] Emergency Department [address] [place] [address] Phone #: ext- [phone] 01/04/2020 16:17 Patient: DELONTE ZAMORANO Sex: M : 1985 Age: 34y(Electronically signed by Almaz Valle MD 01/04/2020 19:53) Name Value Range Interpretation Code Description Data Adriana rce(s) Supporting Document(s) ID Date Data Source [id number] 01/04/2020 04:23:00 PM [facility] 1 Clinical Report - Nurses [facility] Emergency Department [address] [place] [address] Phone #: ext- [phone] 01/04/2020 16:17 Patient: DELONTE ZAMORANO Sex: M : 1985 Age: 34yTRIAGEArrived by private vehicle. Historian: patient. ( back pain with pain shooting down right leg).Triage time: 16:21 01/04/2020. Acuity: LEVEL 4.Chief Complaint: BACK PAIN.Alert.This started yesterday. No history of recent trauma.Pre-hospital notification of patient arrival was not received.Treatment DIORAMIST:Took Tylenol.SEPSIS SCREEN: Sepsis Screen negative. No suspected or confirmed signs of infection present. --16: Suraj Day R.N.16:01/04/20. BP: 140/107. MAP: 118. HR: 101. RR: 16. O2 saturation: 100%. Temp: 98.1 F. Pain levelnow: 09/14. --16:31 01/04/20 Suraj Day R.N.Weight: 102 kg stated. Height/Length: 71 inches Per Patient. BMI: 31.4. --16:25 01/04/20 Suraj Day R.N.MedicationsLisinopril Oral 10 mg, daily. --16:28 01/04/20 Suraj Day R.N.AllergiesNo Known Drug Allergy. --16:27 01/04/20 Suraj Day R.N.PROBLEMS:Epididymitis.Eso phagitis.Diarrhea.Contusion.Dental Caries.GI Bleeding.GI Disease.Gastroesophageal Reflux Disease.Gastric ulcer.Gastritis.Back Pain. 2 Clinical Report - Nurses [facility] Emergency Department [address] [place] [address] Phone #: ext- [phone] 01/04/2020 16:17 Patient: DELONTE ZAMORANO Sex: M : 1985 Age: 34yBack Injury.Atypical Chest Pain.Abdominal [...] known carrier 3 Clinical Report - Nurses [facility] Emergency Department [address] [place] [address] Phone #: ext- [phone] 01/04/2020 16:17 Patient: [...] To treatment room. --16:01/04/20 Suraj Day R.N.PHYSICAL [id number]:01/04/20. Ambulatory to room.GENERAL / NEURO / PSYCH: [...] ROM of neck and backwithin normal limits. --16:31 01/04/20 Suraj Day R.N. 18:30 01/04/20. GENERAL / [...] light placed in reach. [facility] Brakes of bed on. Patient ready for evaluation- ED physician notified. --16:01/04/20Suraj garcia R.N. 17:15 01/04/2020 Morphine IM 4 mg given. Given in the right deltoid. Allergies verified and confirmed 5 rights. Information reviewed with patient including reason for taking this medication, signs of allergic reaction, precautions and sedative warning. Verbalizes understanding. --17:15 01/04/20 Suraj Day R.N. 4 Clinical Report - Nurses [facility] Emergency Department [address] [place] [address] Phone #: ext- [phone] 01/04/2020 16:17 Patient: [...] Suraj Day R.N.18:34 01/04/20. Patient transported to NH by wheelchair with transporter radiology. --18:35 01/04/20 Suraj Day R.N.18:33 01/04/20. BP: 151/96. MAP: 114. HR: 80. RR: 16. O2 saturation: 99%. Pain level now: 10/10.--18:35 01/04/20 Suraj Day R.N.18:50 01/04/2020 Started bag [...] 01/04/20. ( spoke to Michelle SOSA at [facility] ER to inform her transfer is delayed until further noticebecause of chest pain and evaluation. we will keep them posted.). --18:59 01/04/20 Suraj Day R.N.19:19 01/04/20. BP: 147/90. MAP: 109. HR: 74. RR: 17. O2 saturation: 100%. --19:19 01/04/20 Marisol Harris, ER Tech1 5 Clinical Report - Nurses [facility] Emergency Department [address] [place] [address] Phone #: [phone] ext- [phone] 01/04/2020 16:17 Patient: DELONTE ZAMORANO Sex: M : 1985 Age: 34y 19:29 01/04/20. BP: 155/82. MAP: 106. HR: 67. RR: 15. O2 saturation: 100%. --19:29 01/04/20 [place] shipping associate, Marisol, ER Tech1 19:32 01/04/2020 Ofirmir IVPB [...] IV flushed thoroughly. --19:47 01/04/20 Suraj Day ROniDISPOSITION / DISCHARGE 17:20 01/04/20. Condition at departure: improved and stable. The goals identified in the patient's plan of care were met. Fall risk assessment completed. Risk factors identified include patient impairment of mobility. Transferred to [facility]. Visit overview, summary of care (CCDA), [...] Day R.N. 6 Clinical Report - Nurses [facility] Emergency Department [address] [place] [address] Phone #: ext- [phone] 01/04/2020 16:17 -------- Patient: DELOTNE ZAMORANO Sex: Betsy : 1985 Age: 34y Name Value Range Interpretation Code Description Data Adriana rce(s) Supporting Document(s) ID Date Data Source [id number] 01/04/2020 04:23:00 PM [facility] 1 Clinical Report - Physicians/Mid Levels [facility] Emergency Department [address] [place] [address] Phone #: ext- [phone] 01/04/2020 16:17 Patient: DELONTE ZAMORANO Located Within [facility]#: [id number] Sex: Betsy : 1985 Age: 34y Historian- patient. Disposition [...] Allergies: 2 Clinical Report - Physicians/Mid Levels [facility] Emergency Department [address] [place] [address] Phone #: ext- [phone] 01/04/2020 16:17 Patient: [id number] Sex: M : 1985 Age: 34y No [...] 10/01/19, did spine surgery on him at [facility]. He states he used a walker [...] pt 3 Clinical Report - Physicians/Mid Levels [facility] Emergency Department [address] [place] [address] Phone #: ext- [phone] 01/04/2020 16:17 Patient: [...] lower extremity. Patient/family counseled. Disposition: Transferred to [facility]. Condition: stable.CLINICAL IM PRESSION Weakness of the right lower extremity. Paresthesia Nontraumatic lumbar back pain.(Electronically signed by Almaz Valle MD 01/04/2020 19:53) Name Value Range Interpretation Code Description Data Adriana rce(s) Supporting Document(s) ID Date Data Source [id number] 01/04/2020 07:16:00 PM EST [address] [place] [address] ---------NAME--------- NUMBER SEX AGE ADMIT DISC. XRAY# F/C TYPE JAUN Meyer [id number] M 34 01/04/20 660401 X6B E/R DATE OF : 1985 M/R# [id number] #: [id number] TR-06 LOCATION: EMERGENCY DEPT TRANSCRIBED: 01/04/20 19:[address] ABD //T// PELV W/[place] ORAL W/[place] [id number] COMPLETED:01/04/20 19:12 [facility] [id number] Reason(s): Abdominal Pain PHYSICIAN: KEYA======= R A D I O L O G Y R E P O R T PATIENT HISTORY:abdominal pain 3 months s/p lumbar fusion, accumulated dlp 1154.5 mGy*cm est QTO6606.2 mGy*cm MALE 2 PT IDENTIFIERS-JJH / ABD/PEL (DICOM Hx)EXAM: CT Abdomen and Pelvis Without IV contrastCLINICAL HISTORY: Abdominal pain 3 months s/p lumbar fusion, accumulated aqp9914.5 mGy*cm est DLP 1143.2 mGy*cm MALE 2 [...] rce(s) Supporting Document(s) ID Date Data Source [id number] 01/04/2020 07:00:00 PM [facility] Name Value Range Interpretation Code Description Data Adriana rce(s) Supporting Document(s) TROPONIN T <0.01 NG/ML 0.00 - 0.10 [facility]ital TROPONIN T0.1 ng/ml Recommended as the c linical threshold value forTroponin T. ID Date Data Source [id number] 01/04/2020 06:59:00 PM [facility] Name Value Range Interpretation Code Description Data Adriana rce(s) Supporting Document(s) Ethanol [Moles/volume] in Blood <10.0 MG/DL [facility] ALCOHOL % 0.01 % 0.00 - 0.01 [facility] *FOR MEDICAL PURPOSES ONLY * ID Date Data Source [id number] 01/04/2020 06:59:00 PM [facility] Name Value Range Interpretation Code Description Data Adriana rce(s) Supporting Document(s) Magnesium [Mass/volume] in Serum or Plasma 1.9 MG/DL 1.7 - 2.2 [facility] ID Date Data Source [id number] 01/04/2020 06:59:00 PM [facility] Name Value Range Interpretation Code Description Data Adriaan rce(s) Supporting Document(s) Lipase [Enzymatic activity/volume] in Serum or Plasma 64 U/L 13 - 60 H [facility] ID Date Data Source [id number] 01/04/2020 06:59:00 PM EST [facility] Name Value Range Interpretation Code Description Data Adriana [facility](s) Supporting Document(s) COMPREHENSIVE METABOLIC PANEL [facility] COMPREHENSIVE METABOLIC PANEL Sodium [Moles/volume] in Serum or Plasma 136 mEq/L 134 - 153 [facility] Potassium [Moles/volume] in Serum or Plasma 4.3 mEq/L 3.6 - 5.0 [facility] Chloride [Moles/volume] in Serum or Plasma 100 mEq/L 98 - 107 [facility] Carbon dioxide, total [Moles/volume] in Serum or Plasma 24 MEQ/L 22 - 30 [facility] Glucose [Mass/volume] in Serum or Plasma 100 MG/DL 65 - 110 [facility] BUN 11 MG/DL 7 - 21 [facility] al Creatinine [Mass/volume] in Serum or Plasma 0.9 MG/DL 0.7 - 1.5 [facility] BUN/CREAT 12 8 - 27 [facility] Protein [Mass/volume] in Serum or Plasma 7.7 G/DL 6.3 - 8.2 [facility] Albumin [Mass/volume] in Serum or Plasma 5.0 G/DL 3.9 - 5.0 [facility] Globulin [Mass/volume] in Serum by calculation 2.7 GM/DL 2.4 - 3.2 [facility] A/G RATIO 1.9 0.8 - 2.0 [facility] Calcium [Mass/volume] in Serum or Plasma 10.0 MG/DL 8.4 - 10.2 [facility] Bilirubin.total [Mass/volume] in Serum or Plasma <0.7 MG/DL 0.2 - 1.3 [facility] Alkaline phosphatase [Enzymatic activity/volume] in Serum or Plasma 94 U/L 38 - 126 [facility] Aspartate aminotransferase [Enzymatic activity/volume] in Serum or Plasma 30 U/L 5 - 40 [facility] Alanine aminotransferase [Enzymatic activity/volume] in Seru m or Plasma 33 U/L 7 - 56 [facility] Anion gap 3 in Serum or Plasma 12.0 mmol/L 8.0 - 16.0 [facility] AGE 34 yrs [facility] NON-AA GFR >60 mL/min [facility] AFR AMER GFR >60 mL/min [facility] Male GFR In terprentation [...] >32 mL/min Normal ID Date Data Source [id number] 01/04/2020 06:40:00 PM EST [facility] Name Value Range Interpretation Code Description Data Adriana rce(s) Supporting Document(s) CBC W/AUTOMATED DIFF [facility] COMPLETE BLOOD COUNT Leukocytes [#/volume] in Blood by Automated count 9.3 10^3/uL 4.2 - 1 1.0 [facility] Erythrocytes [#/volume] in Blood by Automated count 5.86 10^6/uL 4. 50 - 6.30 [facility] Hemoglobin [Mass/volume] in Blood 17.6 g/dL 14.0 - 16.0 H [facility] Hematocrit [Volume Fraction] of Blood by Automated count 51.3 % 4 1.0 - 51.0 H [facility] Erythrocyte mean corpuscular volume [Entitic volume] by Auto mated count 87.5 fL 80.0 - 94.0 [facility] Erythrocyte mean corpuscular hemoglobin [Entitic mass] by Automated count 30.0 pg 27.0 - 34.0 [facility] Erythrocyte mean corpuscular hemoglobin concentration [Mass/volume] by Automated count 34.3 g/dL 31.0 - 36.0 [facility] Erythrocyte distribution width [Ratio] by Automated count 12.0 % 11.5 - 14.8 [facility] Platelets [#/volume] in Blood by Automated count 430 10^3/uL 150 - 45 0 [facility] Platelet mean volume [Entitic volume] in Blood by Automated count 9.2 fL 7.4 - 10.4 [facility] Neutrophils/100 leukocytes in Blood by Automated count 62.5 % 37. 0 - 80.0 [facility] Lymphocytes/100 leukocytes in Blood by Manual count 26.9 % 25.0 - 40.0 [facility] Monocytes/100 leukocytes in Blood by Automated count 7.3 % 3.0 - 8.0 [facility] Eosinophils/100 leukocytes in Blood by Automated count 2.0 % 0.0 - 7.0 [facility] Basophils/100 leukocytes in Blood by Automated count 1.0 % 0.0 - 2.0 [facility] %IG 0.3 % 0.0 - 0.0 H [facility] %NRBC 0.0 % 0.0 - 0.0 [facility] al Neutrophils [#/volume] in Blood by Automated count 5.82 10^3/uL 2.00 - 6.90 [facility] Lymphocytes [#/volume] in Blood by Automated count 2.50 10^3/uL 0.60 - 3.40 [facility] Monocytes [#/volume] in Blood by Automated count 0.68 10^3/uL 0.00 - 0.90 [facility] Eosinophils [#/volume] in Blood by Automated count 0.19 10^3/uL 0.00 - 0.70 [facility] Basophils [#/volume] in Blood by Automated count 0.09 10^3/uL 0.00 - 0.20 [facility] #IG 0.03 10^3/uL 0.00 - 0.10 [facility] #NRBC 0.00 10^3/uL 0.00 - 0.00 [facility] MANUAL DIFF NOT INDICATED [facility] RBC MORPH NOT INDICATED [facility] spital ID Date Data Source [id number] 11/12/2019 01:02:29 PM EDT [facility]: Delonte ZamoranoDOB: 1985Provider: Reji [...] 11/12/2019 12:49:32 PM;Ordered; For:Lower back pain; Ordered By:Reji Griggs;[facility] - Spinal Physical Therapy Evaluation and Treatment Status:Complete Done: 12Nov2019 Ordered;For: Lower back pain; Ordered By: Reji Griggs Performed: Order Comments: 12 sessionsplease fax reports to ([phone]. thank you Due: [id number]; Last Updated By: Stephanie Nina; 11/12/2019 1:01:12 [...] document was dictated and electronically signed using [employer] software. A reasonable attempt at proof reading [...] Ex-drinker (finding) comp leted Ex- drinker (finding) [facility] Tobacco use and exposure 07/22/2020 12:00:00 AM EDT Never used co mpleted Never used [facility] Cigarette pack-years 07/22/2020 12:00:00 AM EDT [facility] Cigarettes smoked current (pack per day) - Reported 07/23/19 12:00:00 AM EDT UNK [facility] Smoking 07/22/2020 12:00:00 AM EDT Current every day smoker co mpleted Current every day smoker [facility] Alcohol intake 04/28/2020 12:00:00 AM EDT Ex-drinker (finding) comp leted Ex- drinker (finding) [facility] Alcohol intake 04/09/2020 12:00:00 AM EST Current drinker of al cohol (finding) completed Current drinker of alcohol (finding) [facility] Smoking 02/17/2020 12:00:00 AM EST Current Smoker completed Curre nt Smoker eCW1 (Formerly [facility]) Alcohol intake 01/05/2020 12:00:00 AM EST Yes completed [facility] Smoking 01/05/2020 12:00:00 AM EST Former smoker completed Former smoker [facility] Vital Signs ID Date Data Source UNK Name Value Range Interpretation Code Description Data Source(s) Body height 71 [in_i] 71 [in_i] [facility] ([facility]) Diastolic blood pressure 103 mm[Hg] 103 mm[Hg] [facility] ([facility]) Diastolic blood pressure 111 mm[Hg] 111 mm[Hg] [facility] ([facility]) Body height 71 [in_i] 71 [in_i] [facility] ([facility]) Body mass index (BMI) [Ratio] 29.8 kg/m2 29.8 k g/m2 [facility] ([facility]) Systolic blood pressure 150 mm[Hg] 150 mm[Hg] A [facility] ([facility]) Systolic blood pressure 162 mm[Hg] 162 mm[Hg] A [facility] ([facility]) Body weight 3424 [oz_av] 3424 [oz_av] MARJORIE ([facility]) Diastolic blood pressure 103 mm[Hg] 103 mm[Hg] [facility] ([facility]) Diastolic blood pressure 111 mm[Hg] 111 mm[Hg] [facility] ([facility]) Body height 71 [in_i] 71 [in_i] [facility] ([facility]) Body mass index (BMI) [Ratio] 29.8 kg/m2 29.8 k g/m2 [facility] ([facility]) Systolic blood pressure 150 mm[Hg] 150 mm[Hg] A [facility] ([facility]) Systolic blood pressure 162 mm[Hg] 162 mm[Hg] A [facility] ([facility]) Body weight 3424 [oz_av] 3424 [oz_av] [facility]IE ([facility]) Diastolic blood pressure 76 mm[Hg] 76 mm[Hg] [facility] ([facility]) Diastolic blood pressure 91 mm[Hg] 91 mm[Hg] [facility] ([facility]) Body height 71 [in_i] 71 [in_i] [facility] ([facility]) Body mass index (BMI) [Ratio] 30.3 kg/m2 30.3 k g/m2 [facility] ([facility]) Systolic blood pressure 154 mm[Hg] 154 mm[Hg] A [facility] ([facility]) Systolic blood pressure 149 mm[Hg] 149 mm[Hg] A [facility] ([facility]) Body weight 3472 [oz_av] 3472 [oz_av] [facility] ([facility]) Diastolic blood pressure 76 mm[Hg] 76 mm[Hg] [facility] ([facility]) Diastolic blood pressure 91 mm[Hg] 91 mm[Hg] [facility] ([facility]) Body height 71 [in_i] 71 [in_i] [facility] ([facility]) Body mass index (BMI) [Ratio] 30.3 kg/m2 30.3 k g/m2 [facility] ([facility]) Systolic blood pressure 154 mm[Hg] 154 mm[Hg] A [facility] ([facility]) Systolic blood pressure 149 mm[Hg] 149 mm[Hg] A [facility] ([facility]) Body weight 3472 [oz_av] 3472 [oz_av] [facility]IE ([facility]) Diastolic blood pressure 76 mm[Hg] 76 mm[Hg] [facility] ([facility]) Diastolic blood pressure 91 mm[Hg] 91 mm[Hg] [facility] ([facility]) Body height 71 [in_i] 71 [in_i] [facility] ([facility]) Body mass index (BMI) [Ratio] 30.3 kg/m2 30.3 k g/m2 [facility] ([facility]) Systolic blood pressure 154 mm[Hg] 154 mm[Hg] A [facility] ([facility]) Systolic blood pressure 149 mm[Hg] 149 mm[Hg] A [facility] ([facility]) Body weight 3472 [oz_av] 3472 [oz_av] [facility]IE ([facility]) Diastolic blood pressure 76 mm[Hg] 76 mm[Hg] [facility] ([facility]) Diastolic blood pressure 91 mm[Hg] 91 mm[Hg] [facility] ([facility]) Body height 71 [in_i] 71 [in_i] [facility] ([facility]) Body mass index (BMI) [Ratio] 30.3 kg/m2 30.3 k g/m2 [facility] ([facility]) Systolic blood pressure 154 mm[Hg] 154 mm[Hg] A [facility] ([facility]) Systolic blood pressure 149 mm[Hg] 149 mm[Hg] A [facility] ([facility]) Body weight 3472 [oz_av] 3472 [oz_av] [facility]IE ([facility]) Diastolic blood pressure 89 mm[Hg] 89 mm[Hg] [facility] ([facility]) Body height 71 [in_i] 71 [in_i] [facility] ([facility]) Body mass index (BMI) [Ratio] 30.5 kg/m2 30.5 k g/m2 [facility] ([facility]) Systolic blood pressure 146 mm[Hg] 146 mm[Hg] A THE[facility] ([facility]) Body weight 3494.4 [oz_av] 3494.4 [oz_av] ATHEN A ([facility]) Diastolic blood pressure 89 mm[Hg] 89 mm[Hg] [facility] ([facility]) Body height 71 [in_i] 71 [in_i] [facility] ([facility]) Body mass index (BMI) [Ratio] 30.5 kg/m2 30.5 k g/m2 [facility] ([facility]) Systolic blood pressure 146 mm[Hg] 146 mm[Hg] A [facility] ([facility]) Body weight 3494.4 [oz_av] 3494.4 [oz_av] ATHEN A ([facility]) Diastolic blood pressure 89 mm[Hg] 89 mm[Hg] [facility] ([facility]) Body height 71 [in_i] 71 [in_i] [facility] ([facility]) Body mass index (BMI) [Ratio] 30.5 kg/m2 30.5 k g/m2 [facility] ([facility]) Systolic blood pressure 146 mm[Hg] 146 mm[Hg] A [facility] ([facility]) Body weight 3494.4 [oz_av] 3494.4 [oz_av] ATHEN A ([facility]) Diastolic blood pressure 89 mm[Hg] 89 mm[Hg] [facility]IE ([facility]) Body height 71 [in_i] 71 [in_i] [facility] ([facility]) Body mass index (BMI) [Ratio] 30.5 kg/m2 30.5 k g/m2 [facility] ([facility]) Systolic blood pressure 146 mm[Hg] 146 mm[Hg] A THE[facility] ([facility]) Body weight 3494.4 [oz_av] 3494.4 [oz_av] ATHEN A ([facility]) Diastolic blood pressure 89 mm[Hg] 89 mm[Hg] [facility]IE ([facility]) Body height 71 [in_i] 71 [in_i] [facility] ([facility]) Body mass index (BMI) [Ratio] 30.5 kg/m2 30.5 k g/m2 [facility] ([facility]) Systolic blood pressure 146 mm[Hg] 146 mm[Hg] A THE[facility] ([facility]) Body weight 3494.4 [oz_av] 3494.4 [oz_av] ATHEN A ([facility]) Body weight 225 [lb_av] 225 [lb_av] eCW1 (Formerly [facility]) Body height 71.5 [in_i] 71.5 [in_i] eCW1 (Formerly [facility]) Body mass index (BMI) [Ratio] 30.94 kg/m2 30.94 kg/m2 eCW1 ([facility]) Heart rate 90 /min 90 /min eCW1 ([facility]) Respiratory rate 18 /min 18 /min eCW1 ([facility]) Body temperature 96 [degF] 96 [degF] eCW1 ([facility]) Systolic blood pressure 138 mm[Hg] 138 mm[Hg] e CW1 ([facility]) Diastolic blood pressure 74 mm[Hg] 74 mm[Hg] eCW1 ([facility]) Diastolic blood pressure 87 mm[Hg] 87 mm[Hg] MARJORIE ([facility]) Diastolic blood pressure 96 mm[Hg] 96 mm[Hg] MAR[facility]IE ([facility]) Body height 71 [in_i] 71 [in_i] [facility] ([facility]) Body mass index (BMI) [Ratio] 31.3 kg/m2 31.3 k g/m2 [facility] ([facility]) Systolic blood pressure 132 mm[Hg] 132 mm[Hg] A [facility] ([facility]) Systolic blood pressure 137 mm[Hg] 137 mm[Hg] A [facility] ([facility]) Body weight 3593.6 [oz_av] 3593.6 [oz_av] ATHEN A ([facility]) Diastolic blood pressure 87 mm[Hg] 87 mm[Hg] MAR[facility]ORIE ([facility]) Diastolic blood pressure 96 mm[Hg] 96 mm[Hg] [facility] ([facility]) Body height 71 [in_i] 71 [in_i] [facility] ([facility]) Body mass index (BMI) [Ratio] 31.3 kg/m2 31.3 k g/m2 [facility] ([facility]) Systolic blood pressure 132 mm[Hg] 132 mm[Hg] A [facility] ([facility]) Systolic blood pressure 137 mm[Hg] 137 mm[Hg] A [facility] ([facility]) Body weight 3593.6 [oz_av] 3593.6 [oz_av] ATHEN A ([facility]) Diastolic blood pressure 87 mm[Hg] 87 mm[Hg] [facility]IE ([facility]) Diastolic blood pressure 96 mm[Hg] 96 mm[Hg] [facility] ([facility]) Body height 71 [in_i] 71 [in_i] [facility] ([facility]) Body mass index (BMI) [Ratio] 31.3 kg/m2 31.3 k g/m2 [facility] ([facility]) Systolic blood pressure 132 mm[Hg] 132 mm[Hg] A [facility] ([facility]) Systolic blood pressure 137 mm[Hg] 137 mm[Hg] A [facility] ([facility]) Body weight 3593.6 [oz_av] 3593.6 [oz_av] ATHEN A ([facility]) Diastolic blood pressure 87 mm[Hg] 87 mm[Hg] [facility]IE ([facility]) Diastolic blood pressure 96 mm[Hg] 96 mm[Hg] [facility]IE ([facility]) Body height 71 [in_i] 71 [in_i] [facility] ([facility]) Body mass index (BMI) [Ratio] 31.3 kg/m2 31.3 k g/m2 [facility] ([facility]) Systolic blood pressure 132 mm[Hg] 132 mm[Hg] A [facility] ([facility]) Systolic blood pressure 137 mm[Hg] 137 mm[Hg] A [facility] ([facility]) Body weight 3593.6 [oz_av] 3593.6 [oz_av] ATHEN A ([facility]) Diastolic blood pressure 87 mm[Hg] 87 mm[Hg] MAR[facility]IE ([facility]) Diastolic blood pressure 96 mm[Hg] 96 mm[Hg] [facility] ([facility]) Body height 71 [in_i] 71 [in_i] [facility] ([facility]) Body mass index (BMI) [Ratio] 31.3 kg/m2 31.3 k g/m2 [facility] ([facility]) Systolic blood pressure 132 mm[Hg] 132 mm[Hg] A THENA ([facility]) Systolic blood pressure 137 mm[Hg] 137 mm[Hg] A [facility] ([facility]) Body weight 3593.6 [oz_av] 3593.6 [oz_av] ATHEN A ([facility]) Diastolic blood pressure 87 mm[Hg] 87 mm[Hg] MAR[facility]IE ([facility]) Diastolic blood pressure 96 mm[Hg] 96 mm[Hg] [facility]IE ([facility]) Body height 71 [in_i] 71 [in_i] [facility]IE ([facility]) Body mass index (BMI) [Ratio] 31.3 kg/m2 31.3 k g/m2 [facility] ([facility]) Systolic blood pressure 132 mm[Hg] 132 mm[Hg] A [facility] ([facility]) Systolic blood pressure 137 mm[Hg] 137 mm[Hg] A [facility] ([facility]) Body weight 3593.6 [oz_av] 3593.6 [oz_av] IRLANDA A ([facility]) Systolic blood pressure 112 mm[Hg] 112 mm[Hg] S [facility] Diastolic blood pressure 78 mm[Hg] 78 mm[Hg] [facility] Heart rate 74 /min 74 /min [facility] Body temperature 36.78 Nic 36.78 Nic [facility] Respiratory rate 18 /min 18 /min [facility] Oxygen saturation in Arterial blood by Pulse oximetry 96 % 96 % [facility] Body height 180.3 cm 180.3 cm [facility] Body weight 104.237 kg 104.237 kg [facility] Body mass index (BMI) [Ratio] 32.05 kg/m2 32.05 kg/m2 [facility] ID Date Data Source [id number] 05/08/2020 05:57:13 PM [facility] Name Value Range Interpretation Code Description Data Source(s) WEIGHT RECORDED 215 lb 215 lb [facility] Body height Measured 71 in 71 in [facility] ID Date Data Source [id number] 04/21/2020 02:08:24 PM [facility] Name Value Range Interpretation Code Description Data Source(s) TRANSFER FROM [facility] Patient Treatment Plan of Care Planned Activity Planned Date Details Description Data Source (s) 24 HR Nicotine 0.875 MG/HR Transdermal Patch 04/13/2020 12:00:00 AM [facility] pantoprazole 40 MG Delayed Release Oral Tablet 04/13/2020 12:00:00 AM [facility] Cholecalciferol 1000 UNT Oral Tablet 04/13/2020 12:00:00 AM [facility] Melatonin 5 MG Oral Tablet 04/12/2020 10:00:00 PM [facility] Baclofen 10 MG Oral Tablet 04/12/2020 12:00:00 AM [facility] Prednisone 50 MG Oral Tablet 04/12/2020 12:00:00 AM [facility] Prednisone 50 MG Oral Tablet 04/12/2020 12:00:00 AM [facility] Prednisone 20 MG Oral Tablet 04/12/2020 12:00:00 AM [facility] Nortriptyline 10 MG Oral Capsule 04/12/2020 12:00:00 AM [facility] Melatonin 5 MG Oral Tablet 04/12/2020 12:00:00 AM [facility] methylPREDNISolone (MEDROL, ROSALIO,) 4 MG tablet 01/06/2020 12:00:00 A M [facility] Oxycodone Hydrochloride 5 MG Oral Tablet 01/06/2020 12:00:00 AM [facility] Ondansetron 8 MG Disintegrating Oral Tablet [facility] ([facility]) Naproxen 500 MG Oral Tablet [facility] ([facility]) Magnesium Hydroxide 80 MG/ML Oral Suspension [facility] ([facility]) methylprednisolone 4 mg tablets in a dos e pack TAKE BY MOUTH FOLLOWING PACKAGE INSTRUCTIONS [facility] ([facility]) Methocarbamol 750 MG Oral Tablet [facility] ([facility]) Methocarbamol 500 MG Oral Tablet [facility] ([facility]) Ketorolac Tromethamine 10 MG Oral Tablet [facility] ([facility]) gabapentin 100 MG Oral Capsule [facility] ([facility]) Cyclobenzaprine hydrochloride 10 MG Oral Tablet [facility] ([facility]) Baclofen 5 MG Oral Tablet AT NESHA ([facility]) Azithromycin 250 MG Oral Tablet [facility] ([facility]) albuterol sulfate HFA 90 mcg/actuation a erosol inhaler INHALE 4 PUFFS EVERY 4 TO 6 HOURS NEEDED FOR WHEEZING [facility] ([facility]) 24 HR venlafaxine 37.5 MG Extended Release Oral Capsule [facility] ([facility]) tramadol hydrochloride 50 MG Oral Tablet [facility] ([facility]) 12 HR Oxycodone Hydrochloride 60 MG Extended Release Oral Ta blet [Oxycontin] [facility] ([facility]) 12 HR Oxycodone Hydrochloride 30 MG Extended Release Oral Ta blet [Oxycontin] [facility] ([facility]) Oxycodone Hydrochloride 5 MG Oral Tablet [facility] ([facility]) Oxycodone Hydrochloride 10 MG Oral Tablet [facility] ([facility]) oxycodone [facility] ([facility]) Ondansetron 8 MG Disintegrating Oral Tablet [facility] ([facility]) Naproxen 500 MG Oral Tablet [facility] ([facility]) Magnesium Hydroxide 80 MG/ML Oral Suspension [facility] ([facility]) methylprednisolone 4 mg tablets in a dos e pack TAKE BY MOUTH FOLLOWING PACKAGE INSTRUCTIONS [facility] ([facility]) Methocarbamol 750 MG Oral Tablet [facility] ([facility]) Methocarbamol 500 MG Oral Tablet [facility] ([facility]) Ketorolac Tromethamine 10 MG Oral Tablet [facility] ([facility]) gabapentin 100 MG Oral Capsule [facility] ([facility]) Cyclobenzaprine hydrochloride 10 MG Oral Tablet [facility] ([facility]) Baclofen 5 MG Oral Tablet AT NESHA ([facility]) Azithromycin 250 MG Oral Tablet [facility] ([facility]) albuterol sulfate HFA 90 mcg/actuation a erosol inhaler INHALE 4 PUFFS EVERY 4 TO 6 HOURS NEEDED FOR WHEEZING [facility] ([facility]) 24 HR venlafaxine 37.5 MG Extended Release Oral Capsule [facility] ([facility]) tramadol hydrochloride 50 MG Oral Tablet [facility] ([facility]) 12 HR Oxycodone Hydrochloride 60 MG Extended Release Oral Ta blet [Oxycontin] [facility] ([facility]) 12 HR Oxycodone Hydrochloride 30 MG Extended Release Oral Ta blet [Oxycontin] [facility] ([facility]) Oxycodone Hydrochloride 5 MG Oral Tablet [facility] ([facility]) Oxycodone Hydrochloride 10 MG Oral Tablet [facility] ([facility]) oxycodone [facility] ([facility]) Ondansetron 8 MG Disintegrating Oral Tablet [facility] ([facility]) Naproxen 500 MG Oral Tablet [facility] ([facility]) Magnesium Hydroxide 80 MG/ML Oral Suspension [facility] ([facility]) methylprednisolone 4 mg tablets in a dos e pack TAKE BY MOUTH FOLLOWING PACKAGE INSTRUCTIONS [facility] ([facility]) Methocarbamol 750 MG Oral Tablet [facility] ([facility]) Methocarbamol 500 MG Oral Tablet [facility] ([facility]) Ketorolac Tromethamine 10 MG Oral Tablet [facility] ([facility]) gabapentin 100 MG Oral Capsule [facility] ([facility]) Cyclobenzaprine hydrochloride 10 MG Oral Tablet [facility] ([facility]) Baclofen 5 MG Oral Tablet AT NESHA ([facility]) Azithromycin 250 MG Oral Tablet [facility] ([facility]) albuterol sulfate HFA 90 mcg/actuation a erosol inhaler INHALE 4 PUFFS EVERY 4 TO 6 HOURS NEEDED FOR WHEEZING [facility] ([facility]) Baclofen 5 MG Oral Tablet [facility] tramadol hydrochloride 50 MG Oral Tablet [facility] ([facility]) Prednisone 50 MG Oral Tablet [facility] ([facility]) 12 HR Oxycodone Hydrochloride 60 MG Extended Release Oral Ta blet [Oxycontin] [facility] ([facility]) 12 HR Oxycodone Hydrochloride 30 MG Extended Release Oral Ta blet [Oxycontin] [facility] ([facility]) Oxycodone Hydrochloride 5 MG Oral Tablet [facility] ([facility]) Oxycodone Hydrochloride 10 MG Oral Tablet [facility] ([facility]) oxycodone [facility] ([facility]) Ondansetron 8 MG Disintegrating Oral Tablet [facility] ([facility]) Naproxen 500 MG Oral Tablet [facility] ([facility]) Magnesium Hydroxide 80 MG/ML Oral Suspension [facility] ([facility]) methylprednisolone 4 mg tablets in a dos e pack TAKE BY MOUTH FOLLOWING PACKAGE INSTRUCTIONS [facility] ([facility]) Methocarbamol 500 MG Oral Tablet [facility] ([facility]) Ketorolac Tromethamine 10 MG Oral Tablet [facility] ([facility]) gabapentin 100 MG Oral Capsule [facility] ([facility]) Cyclobenzaprine hydrochloride 10 MG Oral Tablet [facility] ([facility]) Azithromycin 250 MG Oral Tablet [facility] ([facility]) albuterol sulfate HFA 90 mcg/actuation a erosol inhaler INHALE 4 PUFFS EVERY 4 TO 6 HOURS NEEDED FOR WHEEZING [facility] ([facility]) Prednisone 50 MG Oral Tablet [facility] ([facility]) 12 HR Oxycodone Hydrochloride 60 MG Extended Release Oral Ta blet [Oxycontin] [facility] ([facility]) 12 HR Oxycodone Hydrochloride 30 MG Extended Release Oral Ta blet [Oxycontin] [facility] ([facility]) Oxycodone Hydrochloride 10 MG Oral Tablet [facility] ([facility]) oxycodone [facility] ([facility]) Ondansetron 8 MG Disintegrating Oral Tablet [facility] ([facility]) Naproxen 500 MG Oral Tablet [facility] ([facility]) Magnesium Hydroxide 80 MG/ML Oral Suspension [facility] ([facility]) Methocarbamol 500 MG Oral Tablet [facility] ([facility]) Ketorolac Tromethamine 10 MG Oral Tablet [facility] ([facility]) gabapentin 100 MG Oral Capsule [facility] ([facility]) Cyclobenzaprine hydrochloride 10 MG Oral Tablet [facility] ([facility]) Azithromycin 250 MG Oral Tablet [facility] ([facility]) vitamin d3 25 mcg (1000 ut) tabs [facility] ([facility]) 24 HR venlafaxine 37.5 MG Extended Release Oral Capsule [facility] ([facility]) tramadol hydrochloride 50 MG Oral Tablet [facility] ([facility]) Docusate Sodium 50 MG / sennosides, RETIREMENT 8.6 MG Oral Tablet [facility] ([facility]) Prednisone 50 MG Oral Tablet [facility] ([facility]) pantoprazole 40 MG Delayed Release Oral Tablet [facility] ([facility]) 12 HR Oxycodone Hydrochloride 60 MG Extended Release Oral Ta blet [Oxycontin] [facility] ([facility]) 12 HR Oxycodone Hydrochloride 30 MG Extended Release Oral Ta blet [Oxycontin] [facility] ([facility]) Oxycodone Hydrochloride 5 MG Oral Tablet [facility] ([facility]) Oxycodone Hydrochloride 10 MG Oral Tablet [facility] ([facility]) oxycodone [facility] ([facility]) Ondansetron 4 MG Oral Tablet [facility] ([facility]) Ondansetron 8 MG Disintegrating Oral Tablet [facility] ([facility]) Nortriptyline 50 MG Oral Capsule [facility] ([facility]) Nortriptyline 25 MG Oral Capsule [facility] ([facility]) Nortriptyline 10 MG Oral Capsule [facility] ([facility]) 24 HR Nicotine 0.875 MG/HR Transdermal Patch [facility] ([facility]) Naproxen 500 MG Oral Tablet [facility] ([facility]) Magnesium Hydroxide 80 MG/ML Oral Suspension [facility] ([facility]) methylprednisolone 4 mg tablets in a dos e pack TAKE BY MOUTH FOLLOWING PACKAGE INSTRUCTIONS [facility] ([facility]) Methocarbamol 750 MG Oral Tablet [facility] ([facility]) Methocarbamol 500 MG Oral Tablet [facility] ([facility]) Melatonin 5 MG Oral Tablet [facility] ([facility]) Ketorolac Tromethamine 10 MG Oral Tablet [facility] ([facility]) Haloperidol 2 MG Oral Tablet [facility] ([facility]) gabapentin 100 MG Oral Capsule [facility] ([facility]) Docusate Sodium 100 MG Oral Capsule [DOK] [facility] ([facility]) Cyclobenzaprine hydrochloride 10 MG Oral Tablet MARJORIE ([facility]) Clonazepam 0.5 MG Oral Tablet MARJORIE ([facility]) Cholecalciferol 1000 UNT Oral Capsule MARJORIE ([facility]) Baclofen 5 MG Oral Tablet AT NESHA ([facility]) Baclofen 10 MG Oral Tablet A THENA ([facility]) Azithromycin 250 MG Oral Tablet MARJORIE ([facility]) Amlodipine 10 MG Oral Tablet MARJORIE ([facility]) albuterol sulfate HFA 90 mcg/actuation a erosol inhaler INHALE 4 PUFFS EVERY 4 TO 6 HOURS NEEDED FOR WHEEZING MARJORIE ([facility]) Acetaminophen 500 MG Oral Tablet MARJORIE ([facility]) tramadol hydrochloride 50 MG Oral Tablet MARJORIE ([facility]) 12 HR Oxycodone Hydrochloride 60 MG Extended Release Oral Ta blet [Oxycontin] MARJORIE ([facility]) 12 HR Oxycodone Hydrochloride 30 MG Extended Release Oral Ta blet [Oxycontin] MARJORIE ([facility]) Oxycodone Hydrochloride 5 MG Oral Tablet MARJORIE ([facility]) Oxycodone Hydrochloride 10 MG Oral Tablet MARJORIE ([facility]) oxycodone MARJORIE ([facility])
[2020-12-20] MEDS ORDERED: OLANZapine ORAL DISINTEGRATING TAB 5MG PO PRN (17:05)
[2020-12-20] MEDS ORDERED: hydrOXYzine 50 MG TAB PO SCH (21:00)
[2020-12-20 21:18] VITALS: BP 148/94
[2020-12-20] MEDS: hydrOXYzine 50 MG TAB PO SCH (21:41)
[2020-12-20] MEDS ORDERED: IBUPROFEN 600MG TAB PO PRN (23:00)
[2020-12-21 06:19] VITALS: BP 122/79
[2020-12-21] MEDS: NICOTINE 21MG/24HR 1 EA TRANSDERMAL TD SCH (09:00)
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
[2020-12-21] MEDS ORDERED: oxyCODONE 5MG TAB PO ONE (16:15)
[2020-12-21] MEDS ORDERED: NICOTINE POLACRILEX 2 MG GUM PO PRN (16:15)
[2020-12-21] MEDS ORDERED: NICOTINE POLACRILEX 2 MG GUM PO ONE (16:15)
--- NOTE | 2020-12-21 16:51 | HPEPDOC ---
[facility] Medical History & Physical Date of Admission Dec 20, 2020 Date of Service: Dec 21, 2020 History and Physical Chief complaint: Psychosis "the FBI was not waving to me." History of presenting illness: 35-year-old man with a history of unspecified psychosis, polysubstance use disorder, GERD, hypertension, spina bifida status post surgery in 2019, kidney stones was admitted to the [facility]. Patient denies any weight gain weight loss changes in appetite blurred vision changes in vision diplopia photophobia ear pain sore throat vertigo neck pain dysphagia odynophagia nausea vomiting diarrhea abdominal pain dysuria urgency frequency fever chills flank pain chest pain pressure tightness lightheadedness shortness of breath cough polyphagia polyuria polydipsia bilateral upper lower extremity weakness paresthesias muscle pains unusual skin rash depression anxiety. Pt c/o mcp joint pains after punching the wall, requesting pain meds. Allergies Coded Allergies: gabapentin (Verified Allergy, Intermediate, hives, 01/21/20) ketorolac (Verified Allergy, Intermediate, HIVES, 01/21/20) Past Medical History Medical History Polysubstance use HTN GERD Asthma Spina Bifida Anxiety and depression ?CAD reported history NSTEMI at age 28. Hx nephrolithiasis Hx pancreatitis Diverticulosis Surgical History Cholecystectomy 2018 Spinal fusion 09/2019 Family History Sister DM Father CAD Brother age 28 brain aneurysm. Social History * Smoker: current smoker Alcohol: occationally Drugs: marijuana A-FIB/CHADSVASC A-FIB History Current/History of A-Fib/PAF?: No Review of Systems 10 point review of system negative aside from positive findings on HPI Physical Examination Vitals see below General Exam: No distress Eye Exam: Anicteric no jaundice ENT Exam: No JVD no thyromegaly moist mucous membranes Chest Exam: Positive: Clear to auscultation, Normal air movement Heart Exam: Positive: Rate Normal, Regular Rhythm, Normal S1, Normal S2; Negative: Murmurs, Rubs Abdomen Exam: Positive: Normal bowel sounds, Soft; Negative: Tenderness Extremity Exam: Negative: Clubbing, Cyanosis, Edema mcp joint swelling, but full rom . Assessment and plan: 35-year-old man with a history of unspecified psychosis, polysubstance use disorder, GERD, hypertension, spina bifida status post surgery in 2019, kidney stones was admitted to the [facility]. Patient denies any weight gain weight loss changes in appetite blurred vision changes in vision diplopia photophobia ear pain sore throat vertigo neck pain dysphagia odynophagia nausea vomiting diarrhea abdominal pain dysuria urgency frequency fever chills flank pain chest pain pressure tightness lightheadedness shortness of breath cough polyphagia polyuria polydipsia bilateral upper lower extremity weakness paresthesias muscle pains unusual skin rash depression anxiety. Pt c/o mcp joint pains after punching the wall, requesting pain meds. Psychosis-managed by primary psychiatric team Polysubstance abuse-cessation counseling provided Gastroesophageal reflux disease-PPI Hypertension-resume home meds History of spina bifida status post surgical correction in 2019-asymptomatic History of kidney stones-no acute complaints bl mcp joint trauma: xray-no fracture. oxycodone x 1. pt refused nsaid and plain acetaminophen Vital Signs Vital Signs Date Time Temp Pulse Resp B/P (MAP) Pulse Ox O2 Delivery O2 Flow Rate FiO2 12/21/20 06:19 97.0 77 16 122/79 (93) 100 Room Air Home Medications Scheduled Hydroxyzine Pamoate (Hydroxyzine Pamoate) 50 Mg Capsule, 50 MG PO QHS Lisinopril (Lisinopril) 10 Mg Tablet, 10 MG PO DAILY Allergies Coded Allergies: gabapentin (Verified Allergy, Intermediate, hives, 01/21/20) ketorolac (Verified Allergy, Intermediate, HIVES, 01/21/20) A-FIB/CHADSVASC A-FIB History Current/History of A-Fib/PAF?: No Current PO Anticoag Therapy: No Age/Risk Factor Scoring CHADSVASC: CHADSVASC Response (Comments) Value Age Risk Factor Age < 65 years old 0 Gender Risk Factor Male 0 Hx of CHF No 0 Hx of HTN Yes 1 Hx of Stroke/TIA/or VTE No 0 Hx of Diabetes No 0 Hx of Vascular Disease No 0 Total 1 Treatment Treatment ordered: NONE VIVI FABIAN MD Dec 21, 2020 15:44
[2020-12-21 18:48] VITALS: BP 148/92
[2020-12-21] MEDS ORDERED: NICOTINE 21MG/24HR 1 EA TRANSDERMAL TD ONE (20:00)
[2020-12-21] MEDS: hydrOXYzine 50 MG TAB PO SCH (20:01)
[2020-12-22 06:00] VITALS: BP 142/73
[2020-12-22] MEDS: NICOTINE 21MG/24HR 1 EA TRANSDERMAL TD SCH (08:19)
[2020-12-22] MEDS: PALIPERIDONE 6 MG ER TAB (INVEGA) PO SCH (09:00)
[2020-12-22] MEDS ORDERED: ASPIRIN 81MG ENTERIC TABLET PO SCH (11:45)
[2020-12-22] MEDS ORDERED: ASPIRIN 81 MG CHEW TABLET PO ONE (11:55)
[2020-12-22 12:13] LABS: CHOLESTEROL RISK RATIO 4.727 (<5)
[2020-12-22] MEDS: OMEPRAZOLE 20 MG CAP PO SCH (12:13)
[2020-12-22 13:57] LABS: CK-MB VALUE MASS 1.2 NG/ML (<3.6); CPK CREATINE PHOSPHOKINASE 106 U/L (39-308); MB/CK RELATIVE INDEX 1.13 (< OR =4); TROPONIN I < 0.02 NG/ML (< 0.10)
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
[2020-12-22 17:57] VITALS: BP 140/85
[2020-12-22] MEDS ORDERED: diphenhydrAMINE 50MG CAP PO PRN (20:50)
[2020-12-22] MEDS ORDERED: haloperidoL 5 MG TAB PO PRN (20:50)
[2020-12-22] MEDS: hydrOXYzine 50 MG TAB PO SCH (21:00)
[2020-12-23] MEDS ORDERED: PALIPERIDONE PALMITATE 234MG/1.5ML INJ (INVEGA)(FREE PSY INPT ONLY) IM SCH (06:00)
--- NOTE | 2020-12-23 08:26 | ECGEPIP ---
[facility] Test Date: 2020-12-22 Pat Name: TARUN WRIGHT Department: Room: [place] [address] Gender: Male National Account Director: CRISTOBAL : 1985 Requested By: VIVI Still Order Number: [id number] Reading MD: Judah Potter Measurements Intervals [place] Rate: 90 P: 55 MS: 164 QRS: 59 QRSD: 94 T: 37 QT: 336 QTc: 411 Interpretive Statements Normal sinus rhythm with sinus arrhythmia Nonspecific T wave abnormality change in limb lead placement but otherwise unchanged from 12/19/20 Electronically Signed on 12-23-2020 8:26:10 EST by Judah Potter
[2020-12-23 08:36] VITALS: BP 132/94
[2020-12-23] MEDS: ASPIRIN 81MG ENTERIC TABLET PO SCH (08:36)
[2020-12-23] MEDS: PALIPERIDONE 6 MG ER TAB (INVEGA) PO SCH (08:36)
[2020-12-23] MEDS: OMEPRAZOLE 20 MG CAP PO SCH (08:37)
[2020-12-23] MEDS ORDERED: ASPIRIN 81 MG CHEW TABLET PO SCH (09:00)
[2020-12-23] MEDS ORDERED: ASPIRIN 81MG ENTERIC TABLET PO SCH (09:00)
[2020-12-23] MEDS ORDERED: ATORVASTATIN 20 MG TAB PO SCH ×2 (09:00→15:00)
[2020-12-23] MEDS: NICOTINE 21MG/24HR 1 EA TRANSDERMAL TD SCH (09:06)
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
[2020-12-23 17:38] VITALS: BP 134/78
[2020-12-23] MEDS: hydrOXYzine 50 MG TAB PO SCH (20:27)
[2020-12-24] MEDS: ASPIRIN 81MG ENTERIC TABLET PO SCH (09:00)
[2020-12-24] MEDS: OMEPRAZOLE 20 MG CAP PO SCH (09:00)
[2020-12-24] MEDS ORDERED: DIVALPROEX 500MG *ER* TAB PO SCH (09:00)
[2020-12-24] MEDS: NICOTINE 21MG/24HR 1 EA TRANSDERMAL TD SCH (09:00)
--- NOTE | 2020-12-24 11:53 | ECHO ---
ECHOCARDIOGRAM DATE OF PROCEDURE: 12/22/2020 Age: 35 Gender: Height: 71 inches Weight: 209 pounds Body Surface Area: 2.15 m2 PATIENT LOCATION: Inpatient Room 2114. REFERRING PHYSICIAN: Kathryn Holbrook. INDICATION: Abnormal EKG. MEASUREMENTS: 2D Measurements: RV 4.0 cm LV 3.7 cm Septum 1.0 cm Posterior wall 1.0 cm Aortic Root 3.0 cm LA 3.2 cm LVEF 75% Doppler Measurements: AV 1.03 m/s LVOT 0.95 m/s LVOT diameter 1.9 cm MV-E 53, A 59, EA ratio 0.9 Early mitral deceleration time 162 msec E prime medial 9.5, A prime medial 8.5, E prime lateral 12 PV - 0.85 m/s Pulmonary artery acceleration time 120 msec PASP 28 mmHg IVC 1.5 cm COMMENTS: Normal sinus rhythm without intraventricular conduction disturbance. M-mode and 2-dimensional echocardiography was performed with pulse, continuous wave, color flow, and tissue Doppler studies. Normal left ventricular size, wall thickness, and hyperkinetic wall motion. Normal left atrial size and Doppler assessment of LV diastolic function and estimated mean left atrial pressure. Normal right heart chamber sizes, wall motion, and estimated pulmonary arterial pressure. Normal IVC size and collapse against an elevated central pressure. Normal aortic dimensions. Normal appearing and functioning valvular structures. No apparent intracardiac mass or pericardial effusion. MTDD
[2020-12-24] MEDS ORDERED: INVE234I IM (12:39)
[2020-12-24] MEDS ORDERED: DEPA500T2 PO (12:39)
[2020-12-24] MEDS ORDERED: NICO2GUM PO (12:39)
[2020-12-24] MEDS ORDERED: ASPI-551 PO (12:39)
[2020-12-24] MEDS ORDERED: ATOR1TAB21 PO (12:39)
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
== END 2020-12-24 15:15 | disposition home or self-care (01) | DRG 755 ==
LOC: M ED 17:39 → M ED INP 12-20 16:07 → EDBEDREQ 12-20 18:27 → M PSY 12-20 20:28
PROVIDERS: ADMIT Student in an Organized Health Care Education/Training Program; ATTEND Student in an Organized Health Care Education/Training Program
DX: F43.20 Adjustment disorder, unspecified (principal); F25.0 Schizoaffective disorder, bipolar type; F12.10 Cannabis abuse, uncomplicated; F17.210 Nicotine dependence, cigarettes, uncomplicated; F60.2 Antisocial personality disorder; Z91.14 Patient's other noncompliance with medication regimen; Z20.822 Contact with and (suspected) exposure to COVID-19; R45.851 Suicidal ideations; Z63.0 Problems in relationship with spouse or partner; S60.221A Contusion of right hand, initial encounter; S60.222A Contusion of left hand, initial encounter; W22.8XXA Striking against or struck by other objects, initial encounter; Y92.9 Unspecified place or not applicable; I10 Essential (primary) hypertension; Z79.899 Other long term (current) drug therapy; Z88.8 Allergy status to other drugs, medicaments and biological substances; K21.9 Gastro-esophageal reflux disease without esophagitis; J45.909 Unspecified asthma, uncomplicated; I25.2 Old myocardial infarction; Z90.49 Acquired absence of other specified parts of digestive tract; Z98.1 Arthrodesis status

== ENCOUNTER 2021-01-10 18:33 | Emergency (ER) | payer MEDICAID, OTHER ==
[~2021-01-10] VITALS: Ht 180.3 cm; Wt 103.8 kg
[~2021-01-10 18:33] MED LIST changes: +ASPI-551 PO; +ATOR1TAB21 PO; +DEPA500T2 PO; +HYDR50CA2; +HYDR50CA2 PO; +INVE234I IM; +NICO2GUM PO
--- OUTSIDE RECORDS SUMMARY | 2021-01-10 18:43 | CCD ---
Author Author [facility] Organization [facility] Address Unknown Phone Unavailable Care Team Providers Care Chemical Packager Name Role Phone Alicia Martin MD Unavailable [...] Unavailable Alicia Martin MD Unavailable Unavailable Alicia Mratin MD Unavailable Unavailable Alicia Martin MD Unavailable [...] Unavailable Unavailable Maryann ZAMORANO MD Unavailable Unavailable Maraynn ZAMORANO MD Unavailable Unavailable Maryann ZAMORANO MD [...] Unavailable Unavailable PANG, CAITLIN Unavailable Unavailable PANG, CATILIN Unavailable Unavailable PANG, CAITLIN Unavailable Unavailable PANG, CAITLIN Unavailable Unavailable PANG, CAITLIN Unavailable Unavailable PANG, CAITLIN Unavailable Unavailable PANG, CAITLIN Unavailable Unavailable PANG, CAITLIN Unavailable Unavailable PANG, CAITLIN Unavailable Unavailable PANG, CAITLIN Unavailable Unavailable PANG, CAITLIN Unavailable Unavailable PANG, CAITLIN Unavailable Unavailable PANG, CAITLIN Unavailable Unavailable PANG, CAITLIN Unavailable Unavailable PANG, CAITLIN Unavailable Unavailable PANG, CAITLIN Unavailable Unavailable PANG, CAITLIN Unavailable Unavailable [place], Elle LACQUER SHADER Unavailable Unavailable [place], Elle LACQUER SHADER Unavailable Unavailable [place], Elle LACQUER SHADER Unavailable Unavailable [place], Elle LACQUER SHADER Unavailable Unavailable Nicole, Elle LACQUER SHADER Unavailable Unavailable Nicole, Elle LACQUER SHADER Unavailable Unavailable [place], Elle LACQUER SHADER Unavailable Unavailable [place], Elle LACQUER SHADER Unavailable Unavailable Nicole, Elle LACQUER SHADER Unavailable Unavailable [place], Elle LACQUER SHADER Unavailable Unavailable [place], Elle LACQUER SHADER Unavailable Unavailable [place], Elle LACQUER SHADER Unavailable Unavailable Nicole, Elle LACQUER SHADER Unavailable Unavailable Nicole, Elle LACQUER SHADER Unavailable Unavailable [place], Elle LACQUER SHADER Unavailable Unavailable Nicole, Elle LACQUER SHADER Unavailable Unavailable Nicole, Elle LACQUER SHADER Unavailable Unavailable Nicole, Elle LACQUER SHADER Unavailable Unavailable [place], Elle LACQUER SHADER Unavailable Unavailable [place], Elle LACQUER SHADER Unavailable Unavailable [place], Elle LACQUER SHADER Unavailable Unavailable Nicole, Elle LACQUER SHADER Unavailable Unavailable [place], Elle LACQUER SHADER Unavailable Unavailable Nicole, Elle LACQUER SHADER Unavailable Unavailable Nicole, Elle LACQUER SHADER Unavailable Unavailable Nicole, Elle LACQUER SHADER Unavailable Unavailable [place], Elle LACQUER SHADER Unavailable Unavailable [place], Elle LACQUER SHADER Unavailable Unavailable [place], Elle LACQUER SHADER Unavailable Unavailable [place], Elle LACQUER SHADER Unavailable Unavailable Nicole, Elle LACQUER SHADER Unavailable Unavailable Nicole, Elle LACQUER SHADER Unavailable Unavailable [place], Elle LACQUER SHADER Unavailable Unavailable Nicole, Elle LACQUER SHADER Unavailable Unavailable Nicole, Elle LACQUER SHADER Unavailable Unavailable Maryann RICHARD MD Unavailable Unavailable [...] HILARY, Maryann WELLS MD Unavailable Unavailable HILARY, Mayrann WELLS MD Unavailable Unavailable HILARY, Maryann WELLS [...] Julieta VALLE MD Unavailable Unavailable [facility] [place] Unavailable Unavailable NICOLAS AN Unavailable Unavailable JOHNSON ANTONI MARIBEL RPA-C Unavailable Unavailable JOHNSON, ANTONI [...] Unavailable Alicia Martin MD Unavailable Unavailable Alicia Matrin MD Unavailable Unavailable Alicia Martin MD Unavailable [...] CHAPITO Unavailable Unavailable TURRIN, CHAPITO Unavailable Unavailable PANG, CAITLIN Unavailable Unavailable PANG, [...] Unavailable Unavailable ELKE VEGAS MD Unavailable Unavailable CHANLIECCO, C YOAV MD Unavailable Unavailable CHANLIECCO, C YOAV MD Unavailable Unavailable CHANLIECCO, C YOAV MD Unavailable Unavailable CHANLIECCO, C YOAV MD Unavailable Unavailable CHANLIECCO, C YOAV MD Unavailable Unavailable CHANLIECCO, C YOAV MD Unavailable Unavailable CHANLIECCO, C YOAV MD Unavailable Unavailable CHANLIECCO, C YOAV MD Unavailable Unavailable CHANLIECCO, C YOAV MD Unavailable Unavailable CHANLIECCO, C YOAV MD Unavailable Unavailable CHANLIECCO, C YOAV MD Unavailable Unavailable Re-disclosure Warning The records [...] is protected by Article 27-F of the [facility] Public Health law. If you continue you may have access to information: Regarding HIV / AIDS; Provided by facilities licensed or operated by the [facility] Office of Mental Health; or Provided by the [facility] Office for People With Developmental Disabilities. If such information is present, then the following [facility] mandated warning applies: This information has been [...] law may result in a fine or assisted sentence or both. A general authorization for the release of medical or other information is NOT sufficient authorization for further disc losure. Allergies and Adverse Reactions Type Description Substance Reaction Status Data Source(s ) Propensity to adverse reactions METHYLPREDNISOLONE METHYLPREDNISOLONE [facility] Drug allergy TORADOL TORADOL RASH; SWELLING [facility] Drug allergy GABAPENTIN GABAPENTIN HIVES [facility] Propensity to adverse reactions NO KNOWN ALLERGIES NO KNOWN ALLERGIES [facility] Propensity to adverse reactions KETOROLAC TROMETHAMINE KETOROLAC TR OMETHAMINE [facility] Propensity to adverse reactions GABAPENTIN GABAPENTIN [facility] Family History Family Member Name Family Member Gender Family Member Status Date o f Status Description Data Source(s) Unknown Male Problem MEDENT ([facility], ) () Encounters Encounter Providers Location Date Indications Data Source(s ) Outpatient Attender: Elle Rivera [facility] 10/21/2020 12:00: 00 AM [facility] Outpatient Attender: Elle Nicole [facility] 10/18/2020 12:00: 00 AM [facility] Outpatient Attender: Ellemauro Marinford [facility] [id number] 12:00:00 AM [facility]: Elle CARRASCOPAttender: Juan miranda MD 07/16/2020 12:00:00 AM [facility] Maribel Johnson RPA-C: [address], [place] [address], Ph. Attender: MARIBEL JOHNSON RPA-C [facility] 07/08/2020 12:00:00 AM EDT MARJORIE ([facility]) Outpatient Attender: Juan Day MD 07/02/2020 12:00:00 A M [facility] Mario Martin MD: [address], [address], [place] [address], Ph. Attender: Mario Martin MD [facility] 06/16/2020 12:00:00 AM EDT MARJORIE ([facility]) Mario Martin MD: [address], [address], [place] [address], Ph. Attender: Mario Martin MD [facility] 06/16/2020 12:00:00 AM EDT MARJORIE ([facility]) Outpatient Attender: Juan SCHREIBEReferrer: Mario Vargas 05/31/2020 12:00:00 AM EDT [facility] Outpatient Attender: ELKE VEGAS MD 05/26/2020 12:0 0:00 AM EDT [facility] Outpatient Attender: Juan Day MD [id number] 2020 12:00:00 AM EDT - 04/28/2020 05:19:40 PM EDT Spinal stenosis, site unspecified [facility] Spinal stenosis, site unspecified Emergency Attender: CHAPITO LOVEConsultant: MARIBEL JOHNSON RPA-C 04/19/2020 08:39:00 PM EDT - 04/19/2020 11:30:00 PM EDT [facility] Patient discharged. Outpatient Attender: CAITLIN Monteiroultant: MARIBEL JOHNSON RPA-C 04/16/2020 02:27:00 PM EST - 04/16/2020 03:27:00 PM EST [facility] Caitlin Pang RPA-C: [address], [place] [address], Ph. Attender: CAITLIN PANG [facility] 04/16/2020 12:00:00 AM EST MAR[place]ORIE ([facility]) OSCAR SuarezC: [address], [place] [address], Ph. Attender: CAITLIN PANG [facility] 04/16/2020 12:00:00 AM EST MAR[place]ORIE ([facility]) Caitlin Pang RPA-C: [address], [place] [address], Ph. Attender: CAITLIN PANG [facility] 04/16/2020 12:00:00 AM EST MAR[place]IE ([facility]) Caitlin Pang RPA-C: [address], [place] [address], Ph. Attender: CAITLIN PANG [facility] 04/16/2020 12:00:00 AM EST MAR[place]ORIE ([facility]) Outpatient Attender: [facility] 04/09/2020 12:3 5:00 PM EST [facility] Emergency Attender: YOAV VARGAS MDConsultant: DIYA JOHNSON RPA-C 04/09/2020 11:42:00 AM EST - 04/09/2020 03:55:00 PM EST [facility] Patient discharged. Inpatient Attender: Juan Davila vinnie: KARIME DUFFY MDAdmitter: KARIME DUFFY MDReferrer: KARIME DUFFY MD [id number] 04/09/2020 12:00: 00 AM EST - 04/12/2020 12:00:00 AM EST Cerebral infarction, unspecified [facility] Cerebral infarction, unspecified Patient discharged. OSCAR SuarezC: [address], [place] [address], Ph. Attender: CAITLIN PANG [facility] 03/31/2020 12:00:00 AM EST MAR[place]IE ([facility]) Caitlin Pang RPA-C: [address], [place] [address], Ph. Attender: CAITLIN PANG [facility] 03/31/2020 12:00:00 AM EST [facility] ([facility]) Caitlin Pang RPA-C: [address], [place] [address], Ph. Attender: CAITLIN PANG [facility] 03/31/2020 12:00:00 AM EST MAR[place] ([facility]) OSCAR SuarezC: [address], [place] [address], Ph. Attender: CAITLIN PANG [facility] 03/31/2020 12:00:00 AM EST MAR[place] ([facility]) OSCAR SuarezC: [address], [place] [address], Ph. Attender: CAITLIN PANG [facility] 03/31/2020 12:00:00 AM EST MAR[place]IE ([facility]) Emergency Attender: CHAPITO Avalossultant: MARIBEL GRISSOM 03/29/2020 11:40:00 AM EST - 03/29/2020 02:45:00 PM EST [facility] Patient discharged. Outpatient [id number] [facility] [address] 02/17/2020 12:00:00 AM EST eCW1 ([facility]) Recurring Patient Referrer: MARIBEL GRISSOM 01/16/2020 1 2:45:26 PM EST [facility] OSCAR SimmonsC: [address], [place] [address], Ph. Attender: MARIBEL GRISSOM [facility] 01/09/2020 12:00:00 AM EST MAR[place]ORIE ([facility]) OSCAR SimmonsC: [address], [place] [address], Ph. Attender: MARIBEL GRISSOM [facility] 01/09/2020 12:00:00 AM EST [place] ([facility]) Maribel Johnson, RPA-C: [address], [place] [address], Ph. Attender: MARIBEL JOHNSON RPA-C [facility] 01/09/2020 12:00:00 AM EST [facility] ([facility]) Maribel Johnson, RPA-C: [address], [place] [address], Ph. Attender: MARIBEL JOHNSON RPA-C [facility] 01/09/2020 12:00:00 AM EST [facility] ([facility]) Maribel Johnson, RPA-C: [address], [place] [address], Ph. Attender: MARIBEL JOHNSON RPA-C [facility] 01/09/2020 12:00:00 AM EST [facility] ([facility]) Maribel Johnson, RPA-C: [address], [place] [address], Ph. Attender: MARIBEL JOHNSON RPA-C [facility] 01/09/2020 12:00:00 AM EST [facility] ([facility]) Outpatient Attender: SUSAN ZAMORANO MDAt tender: REJI GRIGGS MDAttender: ANIL CHAVEZ-CAttender: ADREN RICHARD MDAttender: NICOLAS SANZttender: NICOLAS AN MDAdmitter: REJI GRIGGS MDReferrer: NICOLAS AN MDConsultant: ANIL CHAVEZ-CConsultant: DAREN RICHARD MD [id number] 01/04/2020 09:17:00 PM EST - 01/06/2020 05:22:00 PM EST [facility] Patient discharged. Emergency Attender: ALMAZ VALLE MDConsultant: MARIBEL JOHNSON RPA-C 01/04/2020 04:23:00 PM EST - 01/04/2020 07:47:00 PM EST [facility] Patient discharged. Outpatient Attender: MARIBEL ALEX RPAArie [facility] 11/17/2019 04:40:02 PM EDT [facility] Outpatient Attender: MARIBEL ALEX RPA-C [facility] 11/17/2019 04:40:02 PM EDT [facility] Outpatient Attender: MARIBEL ALEX RPA-C [facility] 11/14/2019 03:45:03 PM EDT [facility] Outpatient Attender: REJI GRIGGS MDReferrer: MARIBEL FR TINOCO RPA-C 11/12/2019 01:02:29 PM EDT [facility] lists Immunizations Vaccine Date Status Description Data Source(s) New in 2011. IIV4 01/09/2020 08:55:24 AM EST completed .5 mL [facility]ORIE ([facility]) New in 2011. IIV4 01/09/2020 08:55:24 AM EST completed 0.5 mL [facility]ORIE ([facility]) New in 2011. IIV4 01/09/2020 08:55:24 AM EST completed .5 mL [facility]IE ([facility]) New in 2011. IIV4 01/09/2020 08:55:24 AM EST completed .5 mL [facility]IE ([facility]) New in 2011. IIV4 01/09/2020 08:55:24 AM EST completed .5 mL [facility]IE ([facility]) New in 2011. IIV4 01/09/2020 08:55:24 AM EST completed .5 mL [facility]ORIE ([facility]) Medications Medication Brand Name Start Date [...] BY MOUTH EVERY MORNING SOLD: 06/02/2020 Juanjose Elaine gs Nortriptyline 50 MG Oral Capsule NORTRIPTYLINE HCL [...] Place 1 patch onto the skin daily [facility] pantoprazole 40 MG Delayed Release Oral Tablet Pantoprazole Sodium 40 MG Oral Tablet Delayed Release (PROTONIX) Pantoprazole Sodium 40 MG Oral Tablet De layed Release (PROTONIX) 04/13/2020 12:00:00 AM EST 40 mg Oral active Take 1 tablet by mouth daily [facility] Cholecalciferol 1000 UNT Oral Tablet Vit leal D3 25 MCG (1000 UT) Oral Tablet (CHOLECALCIFEROL) Vitamin D3 25 MCG (1000 UT) Oral Tablet (CHOLECALCIFER OL) 04/13/2020 12:00:00 AM EST 1000 U Oral active Take 1 tablet by mouth daily [facility] Melatonin 5 MG Oral Tablet melatonin tablet 5 mg melatonin t ablet 5 mg 04/12/2020 10:00:00 PM EST 5 mg Oral active 5 mg, Oral, Nightly, First dose on Sun04/12/20 at 2200, For 30 days [facility] Medication administered onsite Nortriptyline 10 MG Oral Capsule nortriptyline (PAMELO R) capsule 10 mg nortriptyline (PAMELOR) capsule 10 mg 04/12/2020 10:30:00 AM EST 10 m g Oral active 10 mg, Oral, Nightly, First dose on Sun04/12/20 at 1030, For 30 days [facility] Medication administered onsite Cholecalciferol 1000 UNT Oral Tablet vit leal D3 (CHOLECALCIFEROL) tablet 1,000 Units vitamin D3 (CHOLECALCIFEROL) tablet 1,000 Units 2020 10:15:00 AM EST 1000 U Oral active 1,000 Un its, Oral, Daily Standard, First dose on Sun04/12/20 at 1015, For 30 days
25 mcg vitamin D3 = 1,000 international units vitamin D3.
[facility] Medication administered onsite Baclofen 10 MG Oral Tablet baclofen (LIORESAL) tablet 10 mg baclofen (LIORESAL) tablet 10 mg 04/12/2020 10:15:00 AM EST 10 mg Oral activ e 10 mg, Oral, Three Times Daily Standard, First dose on Sun04/12/20 at 1015, For 30 days [facility] Medication administered onsite Prednisone 20 MG Oral Tablet predniSONE 20 MG Oral Tab let (DELTASONE) predniSONE 20 MG Oral Tablet (DELTASONE) 04/12/2020 12:00:00 AM EST 600 mg Ora l aborted Take 30 tablets by mouth Two Jim es Daily for 2 days [facility] Melatonin 5 MG Oral Tablet Melatonin 5 MG Oral Tablet 2020 12:00:00 AM EST 5 mg Oral active Take 1 tablet by mouth nightly [facility] Nortriptyline 10 MG Oral Capsule Nortriptyline HCl 10 MG Oral Capsule (PAMELOR) Nortriptyline HCl 10 MG Oral Capsule (PAMELOR) 04/12/2020 12:00:00 AM EST 10 mg Oral active Take 1 capsule by mouth nightly [facility] Baclofen 10 MG Oral Tablet Baclofen 10 MG Oral Tablet (LIORESAL) Baclofen 10 MG Oral Tablet (LIORESAL) 04/12/2020 12:00:00 AM EST 10 mg Oral active Take 1 tablet by mouth Three times daily [facility] Prednisone 50 MG Oral Tablet predniSONE 50 MG Oral Tab let (DELTASONE) predniSONE 50 MG Oral Tablet (DELTASONE) 04/12/2020 12:00:00 AM EST 600 mg Ora l active Take 12 tablets by mouth Two Jim es Daily for 2 days [facility] Prednisone 50 MG Oral Tablet predniSONE 50 MG Oral Tab let (DELTASONE) predniSONE 50 MG Oral Tablet (DELTASONE) 04/12/2020 12:00:00 AM EST 600 mg Ora l aborted Take 12 tablets by mouth Two Jim es Daily for 2 days [facility] Acetaminophen 325 MG / Hydrocodone Steve trate 5 MG Oral Tablet HYDROcodone- acetaminophen (LORTAB) 5-325 MG per tablet 1 tablet HYDROcodone-acetaminophen (LORTAB) 5-325 MG per tablet 1 tablet 04/11/2020 10:30:00 PM EST 1 {tbl} Oral completed 1 tablet, Oral, Once, 04/11/20 at 2230, For 1 dose
Maximum daily dose of acetaminophen is 3,000 mg from all sources in 24 hours.
[facility] Medication administered onsite fentaNYL (SUBLIMAZE) (PF) injection 25 mcg [id number] 04/11/2020 04:30:00 PM EST 25 ug Intravenous completed 25 mcg, Intravenous, Once, 04/11/20 at 1630, For 1 dose [facility] Medication administered onsite 24 HR Nicotine 0.875 MG/HR Transdermal P atch nicotine (NICODERM CQ) 21 MG/24HR 1 patch nicotine (NICODERM CQ) 21 MG/24HR 1 patch 04/11/2020 11:15:00 AM EST 1 {patch} Transdermal active 1 patch, Transdermal, Administer over 24 Hours, Daily Standard, First dose on 04/11/20 at 1115, For 30 days [facility] Medication administered onsite Alprazolam 0.25 MG Oral Tablet alprazolam (XANAX) tabl et 0.5 mg alprazolam (XANAX) tablet 0.5 mg 04/11/2020 11:15:00 AM EST 0.5 mg Oral active 0.5 mg, Oral, Three Times Daily-PRN, Anxiety, Starting 04/11/20 at 1115, For 48 hours [facility] Medication administered onsite pantoprazole 40 MG Delayed Release Oral Tablet pantoprazole (PROTONIX) EC tablet 40 mg pantoprazole (PROTONIX) EC tablet 40 mg 04/11/2020 09:00:[address] 40 mg Oral active 40 mg, Ora l, Daily Standard, First dose on 04/11/20 at 0900, For 30 days
Do not crush or chew
[facility] Medication administered onsite Melatonin 5 MG Oral Tablet melatonin tablet 5 mg melatonin t ablet 5 mg 04/10/2020 07:30:00 PM EST 5 mg Oral completed 5 mg, Oral, Once, 04/10/20 at 1930, For 1 dose [facility] Medication administered onsite Acetaminophen 325 [...] mg from all sources in 24 hours.
[facility] Medication administered onsite methylPREDNISolone sodium succinate (DAVID U-MEDROL) 1,000 mg in sodium chloride 0.9 % 100 mL IVPB 04/10/2020 03:30:00 PM EST 1000 mg Intravenous active 1,000 mg, Intravenous, at 10 0 mL/hr, Daily Standard, First dose on 04/10/20 at 1530, For 5 days [facility] Medication administered onsite gadobutrol (GADAVIST) contrast injection 9 mL [id number] 01:15:00 PM EST 0.1 mL/kg Intravenous completed 9 mL (ro unded from 9.43 mL = 0.1 mL/kg 94.3 kg Order-specific weight), Intravenous, 1 TIME IMAGING, 04/10/20 at 1315, For 1 dose
Do not mix or administer in the same IV line with other medi cations.
[facility] Medication administered onsite atorvastatin 40 MG Oral Tablet atorvastatin (LIPITOR) tablet 80 mg atorvastatin (LIPITOR) tablet 80 mg 04/10/2020 09:00:00 AM EST 80 mg Oral aborted 80 mg, Oral, Daily Standard, First dose on 04/10/20 at 0900, For 30 days [facility] Medication administered onsite 0.4 ML [...] 10-12 hours prior to removing epidural catheter.
[facility] Medication administered onsite lidocaine (LIDODERM) 5 % patch 1 patch [id number] 09:00:00 AM EST 1 {patch} Transdermal active 1 patch, T ransdermal, Daily Standard, First dose on 04/10/20 at 0900, For 30 days
Apply to area of pain per patient request 12 hours on - 12 hours off
[facility] Medication administered onsite clopidogrel 75 MG Oral Tablet clopidogrel (PLAVIX) tab let 75 mg clopidogrel (PLAVIX) tablet 75 mg 04/10/2020 09:00:00 AM EST 75 mg Oral aborted 75 mg, Oral, Daily Standard, First dose on 04/10/20 at 0900, For 30 days [facility] Medication administered onsite Lisinopril 10 MG Oral Tablet lisinopril (ZESTRIL) tabl et 10 mg lisinopril (ZESTRIL) tablet 10 mg 04/10/2020 09:00:00 AM EST 10 mg Oral active 10 mg, Oral, Daily Standard, First dose on 04/10/20 at 0900, For 30 days
Check vital signs before administering
[facility] Medication administered onsite Alprazolam 0.25 MG Oral Tablet alprazolam (XANAX) tabl et 0.25 mg alprazolam (XANAX) tablet 0.25 mg 04/10/2020 08:52:50 AM EST 0.25 mg Oral aborted 0.25 mg, Oral, Daily PRN, Anxiety, Starting 04/10/20 at 0852, For 120 hours [facility] Medication administered onsite Acetaminophen 325 [...] mg from all sources in 24 hours.
[facility] Medication administered onsite 24 HR venlafaxine 37.5 MG Extended Relea se Oral Capsule venlafaxine (EFFEXOR-XR) 24 hr capsule 37.5 mg venlafaxine (EFFEXOR-XR) 24 hr capsule 37.5 mg 08:00:00 AM EST 37.5 mg Oral active 37.5 mg, Oral, Daily with Breakfast, First dose on 04/10/20 at 0800, For 30 days
Do not crush or chew
[facility] Medication administered onsite Methocarbamol 500 MG Oral Tablet methocarbamol (ROBAXI N) tablet 750 mg methocarbamol (ROBAXIN) tablet 750 mg 04/09/2020 09:15:00 PM EST 75 0 mg Oral aborted 750 mg, Oral, 2 Times Daily, First dose (after last reorder) on Sun04/09/20 at 2115, For 30 days [facility] Medication administered onsite 1 ML Lorazepam 2 MG/ML Injection LORazepam (ATIVAN) in jection 1 mg LORazepam (ATIVAN) injection 1 mg 04/09/2020 09:02:54 PM EST 1 mg Intraveno us aborted 1 mg, Intravenous, O nce PRN, Other, prior to MRI for claustrophobia, Starting Sun04/09/20 at 2102, For 2 days [facility] Medication administered onsite Cyclobenzaprine hydrochloride 10 MG Oral Tablet cyclobenzaprine (FLEXERIL) tablet 10 mg cyclobenzaprine (FLEXERIL) tablet 10 mg 04/09/2020 09:00:00 PM EST 10 mg Oral aborted 10 mg, Oral, 2 T imes Daily, First dose on Sun04/09/20 at 2100, For 30 days [facility] Medication administered onsite Acetaminophen 325 [...] mg from all sources in 24 hours.
[facility] Medication administered onsite 37.5 mg [...] TABLET BY MOUTH EVERY DAY SOLD: 01/15/2020 [email or web address] Bisacodyl 10 MG Rectal Suppository bisacodyl (DULCOLAX ) suppository 10 mg bisacodyl (DULCOLAX) suppository 10 mg 01/07/2020 07:00:00 PM EST 10 mg Rectal active 10 mg, Rectal, Once, Sun01/07/20 at 1900, For 1 dose
Post-op day #2 Hold for BM
[facility] Medication administered onsite 4 mg 01/07/2020 12:00:00 AM EST tablets,dose pack 21 TAKE BY MOUTH FOLLOWING PACKAGE INSTRUCTIONS TAKE BY MOUTH FOLLOWING PACKAGE INSTRUCTIONS SOLD: 01/15/2020 [employer] POLYETHYLENE GLYCOL 3350 142 MG/ML Oral Solution polyethylene glycol (GLYCOLAX) packet 17 g polyethylene glycol (GLYCOLAX) packet 17 g 01/06/2020 09:00:00 AM EST 17 g Oral active 17 g, Or al, Daily, First dose on Sun01/06/20 at 0900, Post-op
Start POD #1
[facility] Medication administered onsite Oxycodone Hydrochloride 5 MG Oral Tablet oxyCODONE (ROXICODONE) 5 MG immediate release tablet oxyCODONE (ROXICODONE) 5 MG immediate release tablet 1 03/08/2019 12:00:00 AM EST 2.5 mg Oral active Take 0.5 tablets (2.5 mg total) by mouth every 6 (six) hours as needed Max Daily Amount: 10 mg [facility] methylPREDNISolone (MEDROL, ROSALIO,) 4 MG tablet [id number] 01/06/2020 12:00:00 AM EST 4 mg Oral active Take 1 t ablet (4 mg total) by mouth daily follow package directions [facility] Bisacodyl 10 MG Rectal Suppository bisacodyl (DULCOLAX ) suppository 10 mg bisacodyl (DULCOLAX) suppository 10 mg 01/06/2020 12:00:00 AM EST 10 mg Rectal active 10 mg, Rectal, Daily PRN, constipation, for constipation unrelieved by miralax/MOM, Starting Sun01/06/20 at 0000, For 4 days, Post- op
For post-op day #1, #3, and #4 Hold for BM
[facility] Medication administered onsite Magnesium Hydroxide 80 MG/ML Oral Suspen maxim magnesium hydroxide (MILK OF MAGNESIA) 400 MG/5ML suspension 30 mL magnesium hydroxide (MILK OF MAGNESIA) 4 00 MG/5ML suspension 30 mL 01/06/2020 12:00:00 AM EST 30 mL Oral active 30 mL, Oral, Daily PRN, constipation, Starting Sun01/06/20 at 0000, Post- op
Start Post-op day #1. Hold for BM
[facility] Medication administered onsite 5 mg 01/06/2020 12:00:00 AM EST tablet 15 TAKE 1/2 TABLET (2.5MG) BY MOUTH EVERY 6 HOURS NEEDED - MAXIMUM DAILY DOSE = 2 TABLETS TAKE 1/2 TABLET (2.5MG) BY MOUTH EVERY 6 HOURS NEEDED - MAXIMUM DAILY DOSE = 2 TABLETS SOLD: 01/06/2020 [email or web address] 1 ML Lorazepam 2 MG/ML Injection LORazepam (ATIVAN) in jection 0.5 mg LORazepam (ATIVAN) injection 0.5 mg 01/05/2020 06:00:00 PM EST 0.5 mg Intrave nous completed 0.5 mg, Intravenous, Once, Sun01/05/20 at 1800, For 1 dose
immediately prior to intravenous use, lorazepam injection must be diluted with an equal volume of sodium chloride 0.9%
[facility] Medication administered onsite Gadoterate Meglumine SOLN 10 mmol [id number] 01/05/2020 05:30:[address] 20 mL Intravenous completed 10 mmol (20 m L), Intravenous, Once, Sun01/05/20 at 1900, For 1 dose [facility] Medication administered onsite Lisinopril 10 MG Oral Tablet lisinopril (PRINIVIL,ZEST RIL) tablet 10 mg lisinopril (PRINIVIL,ZESTRIL) tablet 10 mg 01/05/2020 09:00:00 AM EST 10 mg Oral active 10 mg, Oral, Daily, First dose on Sun01/05/20 at 0900 [facility] Medication administered onsite DAILY REYMUNDO (THERAGRAN) 1 tablet [id number] 01/05/2020 09:00:00 AM EST 1 {tbl} Oral active 1 tablet, Oral, Daily, First dose on Sun01/05/20 at 0900, Post-op [facility] Medication administered onsite Acetaminophen 500 MG Oral Tablet acetaminophen (TYLENO L) tablet 1,000 mg acetaminophen (TYLENOL) tablet 1,000 mg 01/05/2020 02:10:00 AM EST 1000 mg Oral active 1,000 mg, Oral , Every 6 hours (scheduled), First dose on Sun01/05/20 at 0210, Post-op [facility] Medication administered onsite Docusate Sodium 50 MG / sennosides, PRISON 8.6 MG Oral Tablet senna-docusate (PERICOLACE) 8.6-50 MG 2 tablet senna-docusate (PERICOLACE) 8.6-50 MG 2 tablet 01/05/2020 02:10:00 AM EST 2 {tbl} Oral active 2 tablet, Oral, Nightly, First dose on Sun01/05/20 at 0210, Post-op
hold for loose stools
[facility] Medication administered onsite fentaNYL Citrate (PF) (SUBLIMAZE) injection 25 mcg [id number] 01/05/2020 01:54:09 AM EST 25 ug Intravenous active 25 mcg, Intravenous, Every 3 hours PRN, for severe breakthrough pain (7-10) if oral opioid ineffective, Starting Sun01/05/20 at 0154, For 7 days, Post-op [facility] Medication administered onsite Methocarbamol 500 MG Oral Tablet methocarbamol (ROBAXI N) tablet 500 mg methocarbamol (ROBAXIN) tablet 500 mg 01/05/2020 01:54:09 AM EST 50 0 mg Oral active 500 mg, Oral, 4 times daily PRN, muscle spasms, Starting Sun01/05/20 at 0154, Post-op [facility] Medication administered onsite Oxycodone Hydrochloride 5 MG Oral Tablet oxyCODONE (ROXICODONE) immediate release tablet 2.5 mg oxyCODONE (ROXICODONE) immediate release tablet 2.5 mg 01/05/2020 01:54:09 AM EST 2.5 mg Oral active 2.5 mg, Oral, Every 4 hours PRN, moderate pain (4-6), Starting Sun01/05/20 at 0154, For 7 days, Post-op [facility] Medication administered onsite Oxycodone Hydrochloride 5 MG Oral Tablet oxyCODONE (ROXICODONE) immediate release tablet 5 mg oxyCODONE (ROXICODONE) immediate release tablet 5 mg 01/05/2020 01:54:09 AM EST 5 mg Oral active 5 mg, Oral, Every 4 hours PRN, severe pain (7-10), Starting Sun01/05/20 at 0154, For 7 days, Post-op [facility] Medication administered onsite Mineral Oil 1000 MG/ML Enema mineral oil enema 1 enema mineral oil enema 1 enema 01/05/2020 01:54:09 AM EST 1 {enema} Rectal active 1 enema, Rectal, Daily PRN, constipation, if unrelieved by dulcolax, Starting Sun01/05/20 at 0154, Post-op
hold for loose stools
[facility] Medication administered onsite Ondansetron 4 MG Disintegrating Oral Tab let ondansetron (ZOFRAN-ODT) disintegrating tablet 4 mg ondansetron (ZOFRAN-ODT) disintegrating tablet 4 mg 01/05/2020 01:54:09 AM EST 4 mg Oral active 4 mg, Oral, Every 4 hours PRN, nausea, vomiting, Starting Sun01/05/20 at 0154, Post-op [facility] Medication administered onsite ondansetron (ZOFRAN) injection 4 mg [id number] 01/05/2020 01:54:0 9 AM EST 4 mg Intravenous active 4 mg, In travenous, Every 4 hours PRN, nausea, vomiting, Starting Sun01/05/20 at 0154, Post-op
If unable to take PO
[facility] Medication administered onsite sodium chloride 0.9% (NS) infusion [id number] 01/05/2020 01:20:00 A M EST Intravenous completed at 100 mL/hr, Intravenous, Continuous, Starting Sun01/05/20 at 0120, For 12 hours [facility] Medication administered onsite normal saline flush 0.9 % injection 3 mL [id number] 01/05/2020 01:20:00 AM EST 3 mL Intravenous active 3 mL , Intravenous, Every 8 hours (scheduled), First dose on Sun01/05/20 at 0120
flush per protocol, D/C Main IV fluid if appropriate
[facility] Medication administered onsite Morphine Sulfate (PF) injection 4 mg [id number] 01/04/2020 10:20: 00 PM EST 4 mg Intravenous completed 4 mg, In travenous, Once, 01/04/20 at 2220, For 1 dose [facility] Medication administered onsite 10 mg 11/21/2019 12:00:00 [...] DOSE = 4 SOLD: 11/14/2019 [facility] Oxycodone Hydrochloride 10 MG Oral Table t oxycodone 10 mg tablet TAKE ONE TABLET BY MOUTH EVERY 12 HOURS NEEDED FOR POST OP PAIN MAXIMUM DAILY DOSE 2 oxycodone 10 mg tablet TAKE ONE TABLET BY MOUTH EVERY 12 HOURS NEEDED FOR POST OP PAIN MAXIMUM DAILY DOSE 2 co mpleted oxycodone hydrochloride 10 MG Oral Tablet [facility] ([facility]) albuterol sulfate HFA 90 mcg/actuation a erosol inhaler INHALE 4 PUFFS EVERY 4 TO 6 HOURS NEEDED FOR WHEEZING [id number] comple zakiya [id number] 200 ACTUAT albuterol 0.09 MG/ACTUAT Metered Dose Inhaler TUPMAN ([facility]) methylprednisolone 4 mg tablets in a dos e pack TAKE BY MOUTH FOLLOWING PACKAGE INSTRUCTIONS [id number] completed me thylprednisolone 4 mg tablets in a dose pack [facility] ([facility]) Methocarbamol 750 MG Oral Tablet methoca rbamol 750 mg tablet TAKE 2 TABLETS BY MOUTH TWICE A DAY NEEDED methocarbamol 750 mg tablet TAKE 2 TABLE TS BY MOUTH TWICE A DAY NEEDED completed methocarbamol 750 MG Oral Tablet [facility] ([facility]) Ondansetron 8 MG Disintegrating Oral Tab let ondansetron [address] ONE TABLET UNDER THE TONGUE THREE TIMES A DAY ondansetron [address] ONE TABLET UNDER THE TONGUE THREE TIMES A DAY completed ondansetron 8 MG Dis integrating Oral Tablet [facility] ([facility]) Haloperidol 2 MG Oral Tablet haloperidol 2 mg tablet TAKE TWO TABLETS BY MOUTH EVERY DAY haloperidol 2 mg tablet TAKE TWO TABLETS BY MOUTH EVERY DAY completed haloperidol 2 MG Oral Tablet [facility] ([facility]) Ketorolac Tromethamine 10 MG Oral Tablet ketorolac 10 mg tablet TAKE ONE TABLET BY MOUTH FOUR TIMES A DAY ketorolac 10 mg tablet TAKE ONE TABLET B Y MOUTH FOUR TIMES A DAY completed ketorolac tromethamine 10 MG Oral Tablet [facility] ([facility]) vitamin d3 25 mcg (1000 ut) tabs completed vitamin d3 25 mcg (1000 ut) tabs [facility] ([facility]) Baclofen 5 MG Oral Tablet baclofen 5 mg tablet baclofen 5 mg tablet completed baclofen 5 MG Oral Tablet [facility] ([facility]) Cyclobenzaprine hydrochloride 10 MG Oral Tablet cyclob enzaprine 10 mg tablet cyclobenzaprine 10 mg tablet completed cyclobenzaprine hydrochloride 10 MG Oral Tablet [facility] ([facility]) gabapentin 100 MG Oral Capsule gabapenti n 100 mg capsule TAKE ONE CAPSULE BY MOUTH THREE TIMES A DAY gabapentin 100 mg capsule TAKE ONE CAPSU LE BY MOUTH THREE TIMES A DAY completed prisca pentin 100 MG Oral Capsule [facility] ([facility]) Oxycodone Hydrochloride 5 MG Oral Tablet oxycodone 5 mg tablet TAKE 1/2 TABLET 2.5MG BY MOUTH EVERY 6 HOURS NEEDED MAXIMUM DAILY DOSE 2 TABLETS oxycodone 5 mg tablet TAKE 1/2 TABLET 2.5MG BY MOUTH EVERY 6 HOURS NEEDED MAXIMUM DAILY DOSE 2 TABLETS complet ed oxycodone hydrochloride 5 MG Oral Tablet [facility] ([facility]) Magnesium Hydroxide 80 MG/ML Oral Suspen maxim Milk of Magnesia 400 mg/5 mL oral suspension TAKE 30 MLS BY MOUTH ONCE DAILY NEEDED FOR CONSTIPATION Milk of Magnesia 400 mg/5 mL oral suspension TAKE 30 MLS BY MOUTH ONCE DAILY NEEDED FOR CONSTIPATION completed magnesium hydroxide 80 MG/ML Oral Suspension [facility]IE ([facility]) Methocarbamol 750 MG Oral Tablet methoca rbamol 750 mg tablet TAKE 2 TABLETS BY MOUTH TWICE A DAY NEEDED methocarbamol 750 mg tablet TAKE 2 TABLE TS BY MOUTH TWICE A DAY NEEDED completed methocarbamol 750 MG Oral Tablet [facility] ([facility]) tramadol hydrochloride 50 MG Oral Tablet tramadol 50 mg tablet TAKE ONE TABLET BY MOUTH TWICE A DAY MAXIMUM DAILY DOSE 2 TABLETS tramadol 50 mg tablet TAKE ONE TABLET BY MOUTH TWICE A DAY MAXIMUM DAILY DOSE 2 TABLETS completed tramadol hydrochloride 50 MG Ora l Tablet [facility] ([facility]) gabapentin 100 MG Oral Capsule gabapenti n 100 mg capsule TAKE ONE CAPSULE BY MOUTH THREE TIMES A DAY gabapentin 100 mg capsule TAKE ONE CAPSU LE BY MOUTH THREE TIMES A DAY completed prisca pentin 100 MG Oral Capsule [facility] ([facility]) Azithromycin 250 MG Oral Tablet azithrom ycin 250 mg tablet TAKE TWO TABLETS BY MOUTH AT ONCE ON THE FIRST DAY THEN TAKE ONE DAILY THEREAFTER azithromycin 250 mg tablet TAKE TWO TABLETS BY MOUTH AT ONCE ON THE FIRST DAY THEN TAKE ONE DAILY THEREAFTER completed azithromyci n 250 MG Oral Tablet [facility] ([facility]) Magnesium Hydroxide 80 MG/ML Oral Suspen maxim Milk of Magnesia 400 mg/5 mL oral suspension TAKE 30 MLS BY MOUTH ONCE DAILY NEEDED FOR CONSTIPATION Milk of Magnesia 400 mg/5 mL oral suspension TAKE 30 MLS BY MOUTH ONCE DAILY NEEDED FOR CONSTIPATION completed magnesium hydroxide 80 MG/ML Oral Suspension [facility]IE ([facility]) albuterol sulfate HFA 90 mcg/actuation a erosol inhaler INHALE 4 PUFFS EVERY 4 TO 6 HOURS NEEDED FOR WHEEZING [id number] comple zakiya [id number] 200 ACTUAT albuterol 0.09 MG/ACTUAT Metered Dose Inhaler [facility]AN ([facility]) Methocarbamol 500 MG Oral Tablet methoca rbamol 500 mg tablet TAKE ONE TABLET BY MOUTH THREE TIMES A DAY methocarbamol 500 mg tablet TAKE ONE TAB LET BY MOUTH THREE TIMES A DAY completed meth ocarbamol 500 MG Oral Tablet [facility] ([facility]) Melatonin 5 MG Oral Tablet melatonin 5 m g tablet Take 1 tablet every day by oral route at bedtime. melatonin 5 mg tablet Take 1 tablet ever y day by oral route at bedtime. 1 completed melatonin 5 M G Oral Tablet [facility] ([facility]) Ondansetron 8 MG Disintegrating Oral Tab let ondansetron [address] ONE TABLET UNDER THE TONGUE THREE TIMES A DAY ondansetron [address] ONE TABLET UNDER THE TONGUE THREE TIMES A DAY completed ondansetron 8 MG Dis integrating Oral Tablet [facility] ([facility]) Azithromycin 250 MG Oral Tablet azithrom ycin 250 mg tablet TAKE TWO TABLETS BY MOUTH AT ONCE ON THE FIRST DAY THEN TAKE ONE DAILY THEREAFTER azithromycin 250 mg tablet TAKE TWO TABLETS BY MOUTH AT ONCE ON THE FIRST DAY THEN TAKE ONE DAILY THEREAFTER completed azithromyci n 250 MG Oral Tablet [facility] ([facility]) Ondansetron 8 MG Disintegrating Oral Tab let ondansetron [address] ONE TABLET UNDER THE TONGUE THREE TIMES A DAY ondansetron [address] ONE TABLET UNDER THE TONGUE THREE TIMES A DAY completed ondansetron 8 MG Dis integrating Oral Tablet [facility] ([facility]) 24 HR venlafaxine 37.5 MG Extended Relea se Oral Capsule venlafaxine ER 37.5 mg capsule,extended release 24 hr TAKE ONE CAPSULE BY MOUTH EVERY MORNING venlafaxine ER 37.5 mg capsule,extended release 24 hr TAKE ONE CAPSULE BY MOUTH EVERY MORNING completed 24 HR venlafaxine 37.5 MG Extended Release Oral Capsule [facility] ([facility]) Ondansetron 8 MG Disintegrating Oral Tab let ondansetron [address] ONE TABLET UNDER THE TONGUE THREE TIMES A DAY ondansetron [address] ONE TABLET UNDER THE TONGUE THREE TIMES A DAY completed ondansetron 8 MG Dis integrating Oral Tablet [facility] ([facility]) Prednisone 50 MG Oral Tablet prednisone 50 mg tablet TAKE 12 TABLETS BY MOUTH TWO TIMES A DAY FOR 2 DAYS prednisone 50 mg tablet TAKE 12 TABLETS BY MOUTH TWO TIMES A DAY FOR 2 DAYS completed prednisone 50 MG Oral Tablet [facility] ([facility]) Ketorolac Tromethamine 10 MG Oral Tablet ketorolac 10 mg tablet TAKE ONE TABLET BY MOUTH FOUR TIMES A DAY ketorolac 10 mg tablet TAKE ONE TABLET B Y MOUTH FOUR TIMES A DAY completed ketorolac tromethamine 10 MG Oral Tablet [facility] ([facility]) Clonazepam 0.5 MG Oral Tablet clonazepam 0.5 mg tablet TAKE ONE TABLET BY MOUTH EVERY DAY MAXIMUM DAILY DOSE 1 clonazepam 0.5 mg tablet TAKE ONE TABLET BY MOUTH EVERY DAY MAXIMUM DAILY DOSE 1 completed clonazepam 0.5 MG Oral Tablet [facility] ([facility]) Oxycodone Hydrochloride 10 MG Oral Table t oxycodone 10 mg tablet TAKE ONE TABLET BY MOUTH EVERY 12 HOURS NEEDED FOR POST OP PAIN MAXIMUM DAILY DOSE 2 oxycodone 10 mg tablet TAKE ONE TABLET BY MOUTH EVERY 12 HOURS NEEDED FOR POST OP PAIN MAXIMUM DAILY DOSE 2 co mpleted oxycodone hydrochloride 10 MG Oral Tablet [facility] ([facility]) Baclofen 10 MG Oral Tablet baclofen 10 m g tablet Take 1 tablet 3 times a day by oral route. baclofen 10 mg tablet Take 1 tablet 3 times a day by oral ro [place]avapai-apache. 1 completed baclofen 10 MG Oral Tablet [facility] ([facility]) Baclofen 5 MG Oral Tablet baclofen 5 mg tablet baclofen 5 mg tablet completed baclofen 5 MG Oral Tablet [facility] ([facility]) 12 HR Oxycodone Hydrochloride 30 MG Exte nded Release Oral Tablet [Oxycontin] OxyContin 30 mg tablet,crush resistant,extended release TAKE ONE TABLET BY MOUTH EVERY DAY MAXIMUM DAILY DOSE 1 TABLET OxyContin 30 mg tablet,crush resistant,extended release TAKE ONE TABLET BY MOUTH EVERY DAY MAXIMUM DAILY DOSE 1 TABLET completed Ab use-Deterrent 12 HR oxycodone hydrochloride 30 MG Extended Release Oral Tablet [Oxycontin] [facility] ([facility]) Naproxen 500 MG Oral Tablet naproxen 500 mg tablet TAKE ONE TABLET BY MOUTH TWICE A DAY WITH FOOD naproxen 500 mg tablet TAKE ONE TABLET B Y MOUTH TWICE A DAY WITH FOOD completed naproxen 500 MG Oral Tablet [facility] ([facility]) Nortriptyline 25 MG Oral Capsule nortrip tyline 25 mg capsule TAKE ONE CAPSULE BY MOUTH EVERY MORNING nortriptyline 25 mg capsule TAKE ONE CAP [place] BY MOUTH EVERY MORNING completed nortriptyline 25 MG Oral Capsule [facility] ([facility]) methylprednisolone 4 mg tablets in a dos e pack TAKE BY MOUTH FOLLOWING PACKAGE INSTRUCTIONS [id number] completed me thylprednisolone 4 mg tablets in a dose pack [facility] ([facility]) tramadol hydrochloride 50 MG Oral Tablet tramadol 50 mg tablet TAKE ONE TABLET BY MOUTH TWICE A DAY MAXIMUM DAILY DOSE 2 TABLETS tramadol 50 mg tablet TAKE ONE TABLET BY MOUTH TWICE A DAY MAXIMUM DAILY DOSE 2 TABLETS completed tramadol hydrochloride 50 MG Ora l Tablet [facility] ([facility]) oxycodone completed oxycodone [facility] ([facility]) Magnesium Hydroxide 80 MG/ML Oral Suspen maxim Milk of Magnesia 400 mg/5 mL oral suspension TAKE 30 MLS BY MOUTH ONCE DAILY NEEDED FOR CONSTIPATION Milk of Magnesia 400 mg/5 mL oral suspension TAKE 30 MLS BY MOUTH ONCE DAILY NEEDED FOR CONSTIPATION completed magnesium hydroxide 80 MG/ML Oral Suspension [facility]IE ([facility]) Baclofen 5 MG Oral Tablet baclofen 5 mg tablet baclofen 5 mg tablet completed baclofen 5 MG Oral Tablet [facility] ([facility]) Prednisone 50 MG Oral Tablet prednisone 50 mg tablet TAKE ONE TABLET BY MOUTH EVERY DAY WITH A MEAL prednisone 50 mg tablet TAKE ONE TABLET BY MOUTH EVERY DAY WITH A MEAL completed prednison e 50 MG Oral Tablet [facility] ([facility]) Docusate Sodium 50 MG / sennosides, PRISON 8.6 MG Oral Tablet Stimulant Laxative Plus 8.6 mg-50 mg tablet TAKE 2 TABLETS BY MOUTH ONCE OR TWICE DAILY TO PREVENT CONSTIPATION Stimulant Laxative Plus 8.6 mg-50 mg tab let TAKE 2 TABLETS BY MOUTH ONCE OR TWICE DAILY TO PREVENT CONSTIPATION completed docusate sodium 50 MG / sennosides, PRISON 8.6 MG Oral Tablet [facility] ([facility]) methylprednisolone 4 mg tablets in a dos e pack TAKE BY MOUTH FOLLOWING PACKAGE INSTRUCTIONS [id number] completed me thylprednisolone 4 mg tablets in a dose pack [facility] ([facility]) 12 HR Oxycodone Hydrochloride 30 [...] 30 MG Extended Release Oral Tablet [Oxycontin] [facility]IE ([facility]) Ketorolac Tromethamine 10 MG Oral Tablet ketorolac 10 mg tablet TAKE ONE TABLET BY MOUTH FOUR TIMES A DAY ketorolac 10 mg tablet TAKE ONE TABLET B Y MOUTH FOUR TIMES A DAY completed ketorolac tromethamine 10 MG Oral Tablet [facility] ([facility]) Cyclobenzaprine hydrochloride 10 MG Oral Tablet cyclob enzaprine 10 mg tablet cyclobenzaprine 10 mg tablet completed cyclobenzaprine hydrochloride 10 MG Oral Tablet [facility] ([facility]) 24 HR venlafaxine 37.5 MG Extended Relea se Oral Capsule venlafaxine ER 37.5 mg capsule,extended release 24 hr venlafaxine ER 37.5 mg capsule,extended release 24 hr completed 24 HR v enlafaxine 37.5 MG Extended Release Oral Capsule [facility] ([facility]) oxycodone completed oxycodone [facility] ([facility]) Cyclobenzaprine hydrochloride 10 MG Oral Tablet cyclob enzaprine 10 mg tablet cyclobenzaprine 10 mg tablet completed cyclobenzaprine hydrochloride 10 MG Oral Tablet [facility] ([facility]) Oxycodone Hydrochloride 5 MG Oral Tablet oxycodone 5 mg tablet TAKE 1/2 TABLET 2.5MG BY MOUTH EVERY 6 HOURS NEEDED MAXIMUM DAILY DOSE 2 TABLETS oxycodone 5 mg tablet TAKE 1/2 TABLET 2.5MG BY MOUTH EVERY 6 HOURS NEEDED MAXIMUM DAILY DOSE 2 TABLETS comple zakiya oxycodone hydrochloride 5 MG Oral Tablet [facility] ([facility]) Cyclobenzaprine hydrochloride 10 MG Oral Tablet cyclob enzaprine 10 mg tablet cyclobenzaprine 10 mg tablet completed cyclobenzaprine hydrochloride 10 MG Oral Tablet [facility] ([facility]) Oxycodone Hydrochloride 10 MG Oral Table t oxycodone 10 mg tablet TAKE ONE TABLET BY MOUTH EVERY 12 HOURS NEEDED FOR POST OP PAIN MAXIMUM DAILY DOSE 2 oxycodone 10 mg tablet TAKE ONE TABLET BY MOUTH EVERY 12 HOURS NEEDED FOR POST OP PAIN MAXIMUM DAILY DOSE 2 co mpleted oxycodone hydrochloride 10 MG Oral Tablet [facility] ([facility]) Methocarbamol 500 MG Oral Tablet methoca rbamol 500 mg tablet TAKE ONE TABLET BY MOUTH THREE TIMES A DAY methocarbamol 500 mg tablet TAKE ONE TAB LET BY MOUTH THREE TIMES A DAY completed meth ocarbamol 500 MG Oral Tablet [facility] ([facility]) Naproxen 500 MG Oral Tablet naproxen 500 mg tablet TAKE ONE TABLET BY MOUTH TWICE A DAY WITH FOOD naproxen 500 mg tablet TAKE ONE TABLET B Y MOUTH TWICE A DAY WITH FOOD completed naproxen 500 MG Oral Tablet [facility] ([facility]) oxycodone completed oxycodone [facility] ([facility]) Oxycodone Hydrochloride 5 MG Oral Tablet oxycodone 5 mg tablet TAKE 1/2 TABLET 2.5MG BY MOUTH EVERY 6 HOURS NEEDED MAXIMUM DAILY DOSE 2 TABLETS oxycodone 5 mg tablet TAKE 1/2 TABLET 2.5MG BY MOUTH EVERY 6 HOURS NEEDED MAXIMUM DAILY DOSE 2 TABLETS comple zakiya oxycodone hydrochloride 5 MG Oral Tablet [facility] ([facility]) Cyclobenzaprine hydrochloride 10 MG Oral Tablet cyclob enzaprine 10 mg tablet cyclobenzaprine 10 mg tablet completed cyclobenzaprine hydrochloride 10 MG Oral Tablet [facility] ([facility]) 24 HR Nicotine 0.875 MG/HR Transdermal P atch nicotine 21 mg/24 hr daily transdermal patch nicotine 21 mg/24 hr daily transdermal patch completed 24 HR nicotine 0.875 MG/HR Trans dermal System [facility]IE ([facility]) Nortriptyline 10 MG Oral Capsule nortrip tyline 10 mg capsule Take 1 capsule every day by oral route at bedtime. nortriptyline 10 mg capsule Take 1 capsu le every day by oral route at bedtime. 1 capsule(s) completed nortriptyline 10 MG Oral Capsule [facility] ([facility]) Magnesium Hydroxide 80 MG/ML Oral Suspen maxim Milk of Magnesia 400 mg/5 mL oral suspension TAKE 30 MLS BY MOUTH ONCE DAILY NEEDED FOR CONSTIPATION Milk of Magnesia 400 mg/5 mL oral suspension TAKE 30 MLS BY MOUTH ONCE DAILY NEEDED FOR CONSTIPATION completed magnesium hydroxide 80 MG/ML Oral Suspension [facility]IE ([facility]) 12 HR Oxycodone Hydrochloride 30 [...] 30 MG Extended Release Oral Tablet [Oxycontin] [facility] ([facility]) Amlodipine 10 MG Oral Tablet amlodipine 10 mg tablet TAKE ONE TABLET BY MOUTH EVERY DAY amlodipine 10 mg tablet TAKE ONE TABLET BY MOUTH EVERY DAY completed amlodipine 10 MG Oral Tablet [facility] ([facility]) albuterol sulfate HFA 90 mcg/actuation a erosol inhaler INHALE 4 PUFFS EVERY 4 TO 6 HOURS NEEDED FOR WHEEZING [id number] compl eted [id number] 200 ACTUAT albuterol 0.09 MG/ACTUAT Metered Dose Inhaler [facility] ([facility]) gabapentin 100 MG Oral Capsule gabapenti n 100 mg capsule TAKE ONE CAPSULE BY MOUTH THREE TIMES A DAY gabapentin 100 mg capsule TAKE ONE CAPSU LE BY MOUTH THREE TIMES A DAY completed prisca pentin 100 MG Oral Capsule [facility] ([facility]) Methocarbamol 500 MG Oral Tablet methoca rbamol 500 mg tablet TAKE ONE TABLET BY MOUTH THREE TIMES A DAY methocarbamol 500 mg tablet TAKE ONE TAB LET BY MOUTH THREE TIMES A DAY completed meth ocarbamol 500 MG Oral Tablet [facility] ([facility]) tramadol hydrochloride 50 MG Oral Tablet tramadol 50 mg tablet TAKE ONE TABLET BY MOUTH TWICE A DAY MAXIMUM DAILY DOSE 2 TABLETS tramadol 50 mg tablet TAKE ONE TABLET BY MOUTH TWICE A DAY MAXIMUM DAILY DOSE 2 TABLETS completed tramadol hydrochloride 50 MG Ora l Tablet [facility] ([facility]) Ketorolac Tromethamine 10 MG Oral Tablet ketorolac 10 mg tablet TAKE ONE TABLET BY MOUTH FOUR TIMES A DAY ketorolac 10 mg tablet TAKE ONE TABLET B Y MOUTH FOUR TIMES A DAY completed ketorolac tromethamine 10 MG Oral Tablet [facility]) 24 HR venlafaxine 37.5 MG Extended Relea se Oral Capsule venlafaxine ER 37.5 mg capsule,extended release 24 hr TAKE ONE CAPSULE BY MOUTH EVERY MORNING venlafaxine ER 37.5 mg capsule,extended release 24 hr TAKE ONE CAPSULE BY MOUTH EVERY MORNING completed 24 HR venlafaxine 37.5 MG Extended Release Oral Capsule TUPMAN ([facility]) tramadol hydrochloride 50 MG Oral Tablet tramadol 50 mg tablet TAKE ONE TABLET BY MOUTH TWICE A DAY MAXIMUM DAILY DOSE 2 TABLETS tramadol 50 mg tablet TAKE ONE TABLET BY MOUTH TWICE A DAY MAXIMUM DAILY DOSE 2 TABLETS completed tramadol hydrochloride 50 MG Ora l Tablet TUPMAN ([facility]) Oxycodone Hydrochloride 5 MG Oral Tablet oxycodone 5 mg tablet TAKE 1/2 TABLET 2.5MG BY MOUTH EVERY 6 HOURS NEEDED MAXIMUM DAILY DOSE 2 TABLETS oxycodone 5 mg tablet TAKE 1/2 TABLET 2.5MG BY MOUTH EVERY 6 HOURS NEEDED MAXIMUM DAILY DOSE 2 TABLETS comple zakiya oxycodone hydrochloride 5 MG Oral Tablet TUPMAN ([facility]) 12 HR Oxycodone Hydrochloride 60 [...] 60 MG Extended Release Oral Tablet [Oxycontin] TUPMAN ([facility]) Oxycodone Hydrochloride 5 MG Oral Tablet oxycodone 5 mg tablet TAKE 1/2 TABLET 2.5MG BY MOUTH EVERY 6 HOURS NEEDED MAXIMUM DAILY DOSE 2 TABLETS oxycodone 5 mg tablet TAKE 1/2 TABLET 2.5MG BY MOUTH EVERY 6 HOURS NEEDED MAXIMUM DAILY DOSE 2 TABLETS comple zakiya oxycodone hydrochloride 5 MG Oral Tablet [facility]AN ([facility]) Ondansetron 8 MG Disintegrating Oral Tab let ondansetron [address] ONE TABLET UNDER THE TONGUE THREE TIMES A DAY ondansetron [address] ONE TABLET UNDER THE TONGUE THREE TIMES A DAY completed ondansetron 8 MG Dis integrating Oral Tablet [facility]UPMAN ([facility]) Prednisone 50 MG Oral Tablet prednisone 50 mg tablet TAKE ONE TABLET BY MOUTH EVERY DAY WITH A MEAL prednisone 50 mg tablet TAKE ONE TABLET BY MOUTH EVERY DAY WITH A MEAL completed prednison e 50 MG Oral Tablet [facility] ([facility]) 12 HR Oxycodone Hydrochloride 60 MG [...] 60 MG Extended Release Oral Tablet [Oxycontin] [facility]AN ([facility]) 12 HR Oxycodone Hydrochloride 30 MG Exte nded Release Oral Tablet [Oxycontin] OxyContin 30 mg tablet,crush resistant,extended release TAKE ONE TABLET BY MOUTH EVERY DAY MAXIMUM DAILY DOSE 1 TABLET OxyContin 30 mg tablet,crush resistant,extended release TAKE ONE TABLET BY MOUTH EVERY DAY MAXIMUM DAILY DOSE 1 TABLET completed Ab use-Deterrent 12 HR oxycodone hydrochloride 30 MG Extended Release Oral Tablet [Oxycontin] [facility]AN ([facility]) Methocarbamol 500 MG Oral Tablet methoca rbamol 500 mg tablet TAKE ONE TABLET BY MOUTH THREE TIMES A DAY methocarbamol 500 mg tablet TAKE ONE TAB LET BY MOUTH THREE TIMES A DAY completed meth ocarbamol 500 MG Oral Tablet [facility] ([facility]) Ketorolac Tromethamine 10 MG Oral Tablet ketorolac 10 mg tablet TAKE ONE TABLET BY MOUTH FOUR TIMES A DAY ketorolac 10 mg tablet TAKE ONE TABLET B Y MOUTH FOUR TIMES A DAY completed ketorolac tromethamine 10 MG Oral Tablet [facility] ([facility]) Methocarbamol 750 MG Oral Tablet methoca rbamol 750 mg tablet TAKE 2 TABLETS BY MOUTH TWICE A DAY NEEDED methocarbamol 750 mg tablet TAKE 2 TABLE TS BY MOUTH TWICE A DAY NEEDED completed methocarbamol 750 MG Oral Tablet [facility] ([facility]) Naproxen 500 MG Oral Tablet naproxen 500 mg tablet TAKE ONE TABLET BY MOUTH TWICE A DAY WITH FOOD naproxen 500 mg tablet TAKE ONE TABLET B Y MOUTH TWICE A DAY WITH FOOD completed naproxen 500 MG Oral Tablet [facility] ([facility]) oxycodone completed oxycodone [facility] ([facility]) Oxycodone Hydrochloride 10 MG Oral Table t oxycodone 10 mg tablet TAKE ONE TABLET BY MOUTH EVERY 12 HOURS NEEDED FOR POST OP PAIN MAXIMUM DAILY DOSE 2 oxycodone 10 mg tablet TAKE ONE TABLET BY MOUTH EVERY 12 HOURS NEEDED FOR POST OP PAIN MAXIMUM DAILY DOSE 2 co mpleted oxycodone hydrochloride 10 MG Oral Tablet MARJ[facility]IE ([facility]) oxycodone completed oxycodone [facility]IE ([facility]) Naproxen 500 MG Oral Tablet naproxen 500 mg tablet TAKE ONE TABLET BY MOUTH TWICE A DAY WITH FOOD naproxen 500 mg tablet TAKE ONE TABLET B Y MOUTH TWICE A DAY WITH FOOD completed naproxen 500 MG Oral Tablet [facility] ([facility]) Naproxen 500 MG Oral Tablet naproxen 500 mg tablet TAKE ONE TABLET BY MOUTH TWICE A DAY WITH FOOD naproxen 500 mg tablet TAKE ONE TABLET B Y MOUTH TWICE A DAY WITH FOOD completed naproxen 500 MG Oral Tablet [facility] ([facility]) Azithromycin 250 MG Oral Tablet azithrom ycin 250 mg tablet TAKE TWO TABLETS BY MOUTH AT ONCE ON THE FIRST DAY THEN TAKE ONE DAILY THEREAFTER azithromycin 250 mg tablet TAKE TWO TABLETS BY MOUTH AT ONCE ON THE FIRST DAY THEN TAKE ONE DAILY THEREAFTER completed azithromyc in 250 MG Oral Tablet [facility] ([facility]) Methocarbamol 500 MG Oral Tablet methoca rbamol 500 mg tablet TAKE ONE TABLET BY MOUTH THREE TIMES A DAY methocarbamol 500 mg tablet TAKE ONE TAB LET BY MOUTH THREE TIMES A DAY completed meth ocarbamol 500 MG Oral Tablet [facility] ([facility]) 12 HR Oxycodone Hydrochloride 60 MG [...] 60 MG Extended Release Oral Tablet [Oxycontin] [facility]PMAN ([facility]) oxycodone completed oxycodone [facility] ([facility]) 12 HR Oxycodone Hydrochloride 30 MG Exte nded Release Oral Tablet [Oxycontin] OxyContin 30 mg tablet,crush resistant,extended release TAKE ONE TABLET BY MOUTH EVERY DAY MAXIMUM DAILY DOSE 1 TABLET OxyContin 30 mg tablet,crush resistant,extended release TAKE ONE TABLET BY MOUTH EVERY DAY MAXIMUM DAILY DOSE 1 TABLET completed Ab use-Deterrent 12 HR oxycodone hydrochloride 30 MG Extended Release Oral Tablet [Oxycontin] [facility]PMAN ([facility]) albuterol sulfate HFA 90 mcg/actuation a erosol inhaler INHALE 4 PUFFS EVERY 4 TO 6 HOURS NEEDED FOR WHEEZING [id number] compl eted [id number] 200 ACTUAT albuterol 0.09 MG/ACTUAT Metered Dose Inhaler TUPMAN ([facility]) Magnesium Hydroxide 80 MG/ML Oral Suspen [...] 40 MG Delayed Relea se Oral Tablet [facility] ([facility]) albuterol sulfate HFA 90 mcg/actuation a erosol inhaler INHALE 4 PUFFS EVERY 4 TO 6 HOURS NEEDED FOR WHEEZING [id number] compl eted [id number] 200 ACTUAT albuterol 0.09 MG/ACTUAT Metered Dose Inhaler TUPMAN ([facility]) Azithromycin 250 MG Oral Tablet azithrom ycin 250 mg tablet TAKE TWO TABLETS BY MOUTH AT ONCE ON THE FIRST DAY THEN TAKE ONE DAILY THEREAFTER azithromycin 250 mg tablet TAKE TWO TABLETS BY MOUTH AT ONCE ON THE FIRST DAY THEN TAKE ONE DAILY THEREAFTER completed azithromyc in 250 MG Oral Tablet [facility] ([facility]) Methocarbamol 500 MG Oral Tablet methoca rbamol 500 mg tablet TAKE ONE TABLET BY MOUTH THREE TIMES A DAY methocarbamol 500 mg tablet TAKE ONE TAB LET BY MOUTH THREE TIMES A DAY completed meth ocarbamol 500 MG Oral Tablet [facility]) gabapentin 100 MG Oral Capsule gabapenti n 100 mg capsule TAKE ONE CAPSULE BY MOUTH THREE TIMES A DAY gabapentin 100 mg capsule TAKE ONE CAPSU LE BY MOUTH THREE TIMES A DAY completed prisca pentin 100 MG Oral Capsule [facility]) gabapentin 100 MG Oral Capsule gabapenti n 100 mg capsule TAKE ONE CAPSULE BY MOUTH THREE TIMES A DAY gabapentin 100 mg capsule TAKE ONE CAPSU LE BY MOUTH THREE TIMES A DAY completed prisca pentin 100 MG Oral Capsule [facility] ([facility]) Azithromycin 250 MG Oral Tablet azithrom ycin 250 mg tablet TAKE TWO TABLETS BY MOUTH AT ONCE ON THE FIRST DAY THEN TAKE ONE DAILY THEREAFTER azithromycin 250 mg tablet TAKE TWO TABLETS BY MOUTH AT ONCE ON THE FIRST DAY THEN TAKE ONE DAILY THEREAFTER completed azithromyc in 250 MG Oral Tablet [facility] ([facility]) Acetaminophen 500 MG Oral Tablet acetaminophen 500 mg tablet acetaminophen 500 mg tablet completed acetaminophe n 500 MG Oral Tablet [facility] ([facility]) Magnesium Hydroxide 80 MG/ML Oral Suspen maxim Milk of Magnesia 400 mg/5 mL oral suspension TAKE 30 MLS BY MOUTH ONCE DAILY NEEDED FOR CONSTIPATION Milk of Magnesia 400 mg/5 mL oral suspension TAKE 30 MLS BY MOUTH ONCE DAILY NEEDED FOR CONSTIPATION completed magnesium hydroxide 80 MG/ML Oral Suspension [facility] ([facility]) methylprednisolone 4 mg tablets in a dos e pack TAKE BY MOUTH FOLLOWING PACKAGE INSTRUCTIONS [id number] completed me thylprednisolone 4 mg tablets in a dose pack [facility] ([facility]) Cyclobenzaprine hydrochloride 10 MG Oral Tablet cyclob enzaprine 10 mg tablet cyclobenzaprine 10 mg tablet completed cyclobenzaprine hydrochloride 10 MG Oral Tablet [facility] ([facility]) 12 HR Oxycodone Hydrochloride 60 [...] 60 MG Extended Release Oral Tablet [Oxycontin] [facility]PMAN ([facility]) Docusate Sodium 100 MG Oral Capsule [DOK] DOK 100 mg capsule DOK 100 mg capsule completed docusate sodiu m 100 MG Oral Capsule [DOK] [facility]AN ([facility]) Oxycodone Hydrochloride 10 MG Oral Table t oxycodone 10 mg tablet TAKE ONE TABLET BY MOUTH EVERY 12 HOURS NEEDED FOR POST OP PAIN MAXIMUM DAILY DOSE 2 oxycodone 10 mg tablet TAKE ONE TABLET BY MOUTH EVERY 12 HOURS NEEDED FOR POST OP PAIN MAXIMUM DAILY DOSE 2 co mpleted oxycodone hydrochloride 10 MG Oral Tablet MARJORIE ([facility]) Baclofen 5 MG Oral Tablet baclofen (LIORESAL) 5 MG tab let baclofen (LIORESAL) 5 MG tablet 5 mg Oral aborted Take 5 mg by m outh Three times daily [facility] Ketorolac Tromethamine 10 MG Oral Tablet ketorolac 10 mg tablet TAKE ONE TABLET BY MOUTH FOUR TIMES A DAY ketorolac 10 mg tablet TAKE ONE TABLET B Y MOUTH FOUR TIMES A DAY completed ketorolac tromethamine 10 MG Oral Tablet MARJ[facility]IE ([facility]) Ondansetron 4 MG Oral Tablet ondansetron HCl 4 mg tabl et ondansetron HCl 4 mg tablet completed ondansetron 4 M G Oral Tablet [facility] ([facility]) Ondansetron 8 MG Disintegrating Oral Tab let ondansetron [address] ONE TABLET UNDER THE TONGUE THREE TIMES A DAY ondansetron [address] ONE TABLET UNDER THE TONGUE THREE TIMES A DAY completed ondansetron 8 MG Dis integrating Oral Tablet [facility] ([facility]) Methocarbamol 750 MG Oral Tablet methoca rbamol 750 mg tablet TAKE 2 TABLETS BY MOUTH TWICE A DAY NEEDED methocarbamol 750 mg tablet TAKE 2 TABLE TS BY MOUTH TWICE A DAY NEEDED completed methocarbamol 750 MG Oral Tablet [facility] ([facility]) 12 HR Oxycodone Hydrochloride 60 [...] MG Extended Release Oral Tablet [Oxycontin] MARJORIE ([facility]) Azithromycin 250 MG Oral Tablet azithrom ycin 250 mg tablet TAKE TWO TABLETS BY MOUTH AT ONCE ON THE FIRST DAY THEN TAKE ONE DAILY THEREAFTER azithromycin 250 mg tablet TAKE TWO TABLETS BY MOUTH AT ONCE ON THE FIRST DAY THEN TAKE ONE DAILY THEREAFTER completed azithromyc in 250 MG Oral Tablet [facility]IE ([facility]) 12 HR Oxycodone Hydrochloride 30 MG Exte nded Release Oral Tablet [Oxycontin] OxyContin 30 mg tablet,crush resistant,extended release TAKE ONE TABLET BY MOUTH EVERY DAY MAXIMUM DAILY DOSE 1 TABLET OxyContin 30 mg tablet,crush resistant,extended release TAKE ONE TABLET BY MOUTH EVERY DAY MAXIMUM DAILY DOSE 1 TABLET completed Ab use-Deterrent 12 HR oxycodone hydrochloride 30 MG Extended Release Oral Tablet [Oxycontin] [facility]AN ([facility]) Nortriptyline 50 MG Oral Capsule nortrip tyline 50 mg capsule TAKE ONE CAPSULE BY MOUTH EVERY MORNING nortriptyline 50 mg capsule TAKE ONE CAP CHRISTINA BY MOUTH EVERY MORNING completed nortriptyline 50 MG Oral Capsule [facility] ([facility]) 12 HR Oxycodone Hydrochloride 60 MG [...] 60 MG Extended Release Oral Tablet [Oxycontin] [facility]PMAN ([facility]) Cholecalciferol 1000 UNT Oral Capsule ch olecalciferol (vitamin D3) 25 mcg (1,000 unit) capsule Take 1 capsule every day by oral route. cholecalciferol (vitamin D3) 25 mcg (1,000 unit) capsule Take 1 capsule every day by oral route. 1 capsule(s) completed cholecalciferol 0.0 25 MG Oral Capsule TUPMAN ([facility]) tramadol hydrochloride 50 MG Oral Tablet tramadol 50 mg tablet TAKE ONE TABLET BY MOUTH TWICE A DAY MAXIMUM DAILY DOSE 2 TABLETS tramadol 50 mg tablet TAKE ONE TABLET BY MOUTH TWICE A DAY MAXIMUM DAILY DOSE 2 TABLETS completed tramadol hydrochloride 50 MG Ora l Tablet [facility]AN ([facility]) gabapentin 100 MG Oral Capsule gabapenti n 100 mg capsule TAKE ONE CAPSULE BY MOUTH THREE TIMES A DAY gabapentin 100 mg capsule TAKE ONE CAPSU LE BY MOUTH THREE TIMES A DAY completed prisca pentin 100 MG Oral Capsule TUPMAN ([facility]) methylprednisolone 4 mg tablets in a dos e pack TAKE BY MOUTH FOLLOWING PACKAGE INSTRUCTIONS [id number] completed me thylprednisolone 4 mg tablets in a dose pack [facility]) Baclofen 5 MG Oral Tablet baclofen 5 mg tablet baclofen 5 mg tablet completed baclofen 5 MG Oral Tablet MARJORIE ([facility]) Naproxen 500 MG Oral Tablet naproxen 500 mg tablet TAKE ONE TABLET BY MOUTH TWICE A DAY WITH FOOD naproxen 500 mg tablet TAKE ONE TABLET B Y MOUTH TWICE A DAY WITH FOOD completed naproxen 500 MG Oral Tablet [facility]IE ([facility]) Oxycodone Hydrochloride 10 MG Oral Table t oxycodone 10 mg tablet TAKE ONE TABLET BY MOUTH EVERY 12 HOURS NEEDED FOR POST OP PAIN MAXIMUM DAILY DOSE 2 oxycodone 10 mg tablet TAKE ONE TABLET BY MOUTH EVERY 12 HOURS NEEDED FOR POST OP PAIN MAXIMUM DAILY DOSE 2 co mpleted oxycodone hydrochloride 10 MG Oral Tablet [facility]IE ([facility]) Insurance Providers Payer name Policy type / Coverage type Policy ID Covered republican ID Covered republican's relationship to rowell Policy Rowell Plan Information MEDICAID M [id number] Self [id number] Medicaid S [id number] S [id number] [facility] COMM[facility]ITY PLAN [facility] [id number] SP [id number] Managed Care - Community Plan [facility] P [id number] S [id number] [facility] Comm Plan Medicaid F [id number] SELF [id number] [facility] Comm Plan Medicaid F [id number] SELF [id number] Managed Care - Community Plan [facility] P [id number] S [id number] [facility] Comm Plan Medicaid F [id number] SELF [id number] Medicaid S [id number] S [id number] Managed Care - [facility] Community Plan P [id number] S [id number] Managed Care - Community Plan [facility] P [id number] S [id number] [facility] MEDICAID [id number] xxxxxxxxx [id number] [facility] MEDICAID [id number] Sigrid [id number] MEDICAID [id number] Sigrid [id number] INSURANCE COVID-19 [id number] INSURANCE COVID-19 COVID Sigrid C OVID [facility] I [id number] Self [id number] [facility] COMMUNITY PLAN [facility] [id number] SP [id number] MEDICAID -PHYSICIAN [id number] MEDICAID M [id number] S [id number] [facility] [id number] SP [id number] Medicaid P [id number] S [id number] [facility] COMMUNITY PLAN [id number] SP [id number] [facility] [id number] SP [id number] UN COMMUNITY PLAN XIX [id number] 18 [id number] [facility] COMMUNITY PLAN [id number] SP [id number] [facility](MCAID) O [id number] S [id number] BH [facility] COMMUNITY PLAN [place] [id number] 18 [id number] [facility] COMMUNTY PLAN [id number] ANSI-Medicaid [id number] MEDICAID [id number] SP [id number] ANSI-Medicaid [id number] Managed Care - Community Plan [facility] P [id number] S [id number] MEDICAID [id number] SP [id number] MEDICAID -O/P EMERGENCY ROOM [id number] 18 [id number] UMR -O/P UNAVAILABLE UNAVAILABLE [facility] Health Maintenance Organization (HMO) [id number] Self [id number] [facility] Health Maintenance Organization (HMO) [id number] Self [id number] Problems, Conditions, and Diagnoses Code Display Name Description Problem Type Effective Dates Data Source(s) M48.00 Spinal stenosis, site unspecified Spinal stenosi s, site unspecified Diagnosis 04/28/2020 07:12:15 AM EDT [facility] G58161 CONTACT WITH AND SUSPECTED EXPOSURE TO C OVID-19 CONTACT WITH AND SUSPECTED EXPOSURE TO COVID-19 Diagnosis 04/19/2020 08:39:00 PM EDT [facility] Q37058 Dysarthria following unspecified cerebro vascular disease Dysarthria following unspecified cerebrovascular disease Diagnosis 04/20/19 08:39:00 PM EDT [facility] R456 Violent behavior Violent behavior Diagnosis 04/19/2020 08 :39:00 PM EDT [facility] [id number] Cannabis abuse with cannabis-induced anx iety disorder Cannabis abuse with cannabis-induced anxiety disorder Diagnosis 04/19/2020 08:39:00 PM ED [facility] R000 Tachycardia, unspecified Tachycardia, unspecified Diag nosis 04/19/2020 08:39:00 PM EDT [facility] G8929 Other chronic pain Other chronic pain Diagnosis 08:39:00 PM EDT [facility] F411 Generalized anxiety disorder Generalized anxiety disor fausto Diagnosis 04/19/2020 08:39:00 PM EDT [facility] L04998 Nicotine dependence, cigarettes, uncompl icated Nicotine dependence, cigarettes, uncomplicated Diagnosis 04/19/2020 08:39:00 PM EDT [facility] I10 Essential (primary) hypertension Essential (primary) h ypertension Diagnosis 04/19/2020 08:39:00 PM EDT [facility] K46855 Cannabis abuse with intoxication, unspec ified Cannabis abuse with intoxication, unspecified Diagnosis 04/19/2020 08:39:00 PM EDT [facility] R531 Weakness Weakness Diagnosis 04/19/2020 08:39:00 PM ED [facility] P32458 Pain in left leg Pain in left leg Diagnosis 04/16/2020 02 :27:00 PM [facility] I63.9 Cerebral infarction, unspecified Cerebral infarc tion, unspecified Diagnosis 04/09/2020 05:29:00 PM [facility] stroke stroke Diagnosis 04/09/2020 05:29:00 PM [facility] Y78054 Personal history of nicotine dependence Personal history of nicotine dependence Diagnosis 04/09/2020 11:42:00 AM [facility] I6340 Cerebral infarction due to embolism of u nspecified cerebral artery Cerebral infarction due to embolism of unspecified cerebral artery Diagnosis 04/09/2020 11:42:00 AM [facility] R202 Paresthesia of skin Paresthesia of skin Diagnosis 0 04/09/2020 11:42:00 AM [facility] R519 Headache, unspecified Headache, unspecified Diagnosis 03/29/2020 11:40:00 AM [facility] H532 Diplopia Diplopia Diagnosis 03/29/2020 11:40:00 AM [facility] R42 Dizziness and giddiness Dizziness and giddiness Diagno sis 03/29/2020 11:40:00 AM [facility] M54.31 Sciatica, right side Sciatica, right side Diagnosis 01/04/2020 09:22:55 PM [facility] M43.17 Spondylolisthesis, lumbosacral region Sp ondylolisthesis, lumbosacral region Diagnosis 01/04/2020 09:22:55 PM [facility] M6281 Muscle weakness (generalized) Muscle weakness (general ized) Diagnosis 01/04/2020 04:23:00 PM [facility] M545 Low back pain Low back pain Diagnosis 01/04/2020 04:23:00 PM [facility] 1075464 Severe bipolar disorder with psychotic f eatures Severe Bipolar Disorder with Psychotic Features Problem 06/16/2020 12:00:00 AM EDT MARJORIE ([facility]) [id number] Severe bipolar disorder with psychotic f eatures Severe Bipolar Disorder with Psychotic Features Problem 06/16/2020 12:00:00 AM EDT MARJORIE ([facility]) [id number] Gastroesophageal reflux disease Gastroesophageal Reflux Disease Problem 04/13/2020 12:00:00 AM EST MARJORIE ([facility]) 04138140 Chronic obstructive lung disease Chronic Obstruc tive Lung Disease Problem 04/13/2020 12:00:00 AM EST MARJORIE ([facility]) [id number] Asthma Asthma Problem 04/13/2020 12:00:00 AM ES Kelly MARJORIE ([facility]) [id number] Gastroesophageal reflux disease Gastroesophageal Reflux Disease Problem 04/13/2020 12:00:00 AM EST MARJORIE ([facility]) [id number] Chronic obstructive lung disease Chronic Obstruc tive Lung Disease Problem 04/13/2020 12:00:00 AM EST MARJORIE ([facility]) [id number] Asthma Asthma Problem 04/13/2020 12:00:00 AM TARIQ AMADOR ([facility]) [id number] Gastroesophageal reflux disease Gastroesophageal Reflux Disease Problem 04/13/2020 12:00:00 AM EST MARJORIE ([facility]) 09396945 Chronic obstructive lung disease Chronic Obstruc tive Lung Disease Problem 04/13/2020 12:00:00 AM EST MARJORIE ([facility]) [id number] Asthma Asthma Problem 04/13/2020 12:00:00 AM TARIQ AMADOR ([facility]) [id number] Gastroesophageal reflux disease Gastroesophageal Reflux Disease Problem 04/13/2020 12:00:00 AM EST MARJORIE ([facility]) 16780309 Chronic obstructive lung disease Chronic Obstruc tive Lung Disease Problem 04/13/2020 12:00:00 AM EST MARJORIE ([facility]) [id number] Asthma Asthma Problem 04/13/2020 12:00:00 AM TARIQ AMADOR ([facility]) [id number] Relapsing remitting multiple sclerosis R elapsing Remitting Multiple Sclerosis Problem 04/09/2020 12:00:00 AM EST MARJORIE ([facility]) [id number] Relapsing remitting multiple sclerosis R elapsing Remitting Multiple Sclerosis Problem 04/09/2020 12:00:00 AM EST MARJORIE ([facility]) [id number] Relapsing remitting multiple sclerosis R elapsing Remitting Multiple Sclerosis Problem 04/09/2020 12:00:00 AM EST MARJ[facility]IE ([facility]) 299444542 Relapsing remitting multiple sclerosis R elapsing Remitting Multiple Sclerosis Problem 04/09/2020 12:00:00 AM EST MARJORIE ([facility]) [id number] Postoperative pain Postoperative Pain Problem 05/2019 12:00:00 AM EST MARJORIE ([facility]) 679305980 Postoperative pain Postoperative Pain Problem 05/2019 12:00:00 AM EST MARJORIE ([facility]) 103423410 Postoperative pain Postoperative Pain Problem 05/2019 12:00:00 AM EST [facility]IE ([facility]) [id number] Postoperative pain Postoperative Pain Problem 05/2019 12:00:00 AM EST [facility]JORIE ([facility]) 868861152 Postoperative pain Postoperative Pain Problem 05/2019 12:00:00 AM EUGENIO AMADOR ([facility]) 886988908 Postoperative pain Postoperative Pain Problem 05/2019 12:00:00 AM EUGENIO AMADOR ([facility]) G89.18 Post-op pain Post-op pain [id number] 01/05/2020 12:00:00 A M EST [facility] Surgeries/Procedures Procedure Description Date Indications Data Source(s) BLOOD COUNT COMPLETE AUTO&AUTO DIFRNTL WBC COUNT <td>C BC AND DIFFERENTIAL</td><td>Routine</td><td>04/12/2020 5:50 AM EST</td><td></td><td> </td> 04/12/2020 05:50:00 AM [facility] BASIC METABOLIC PANEL CALCIUM TOTAL <td>BASIC METABOLI C PANEL</td><td>Routine</td><td>04/12/2020 5:50 AM EST</td><td></td><td> </td> 04/12/2020 05:50:00 AM [facility] NEUTROPHIL CYTO AB COMMENT <td>NEUTROPHIL CYTO AB COMMENT</td><td>Routine</td><td>04/10/2020 4:44 PM EST</td><td></td><td> </td> 04/10/2020 04:44:00 PM [facility] SYPHILIS IGG/IGM SCREEN W/REFLEX TO RPR <td>SYPHILIS I GG/IGM SCREEN W/REFLEX TO RPR</td><td>Routine</td><td>04/10/2020 4:44 PM EST</td><td></td><td> </td> 04/10/2020 04:44:00 PM [facility] GAMMAGLOBULIN IGA IGD IGG IGM EACH <td>IMMUNOGLOBULIN ASSAY</td><td>Routine</td><td>04/10/2020 4:44 PM EST</td><td></td><td> </td> 04/10/2020 04:44:00 PM [facility] DNA ANTIBODY UTE [place]/DOUBLE STRANDED <td>APOLINAR SPECIFICITY</td><td>Routine</td><td>04/10/2020 4:44 PM EST</td><td></td><td> </td> 04/10/2020 04:44:00 PM [facility] IAAD EIA HIV-1 AG W/HIV-1&HIV-2 ANTBDY SINGLE <td>HIV AG AB COMBO SCREEN</td><td>Routine</td><td>04/10/2020 4:44 PM EST</td><td></td><td> </td> 04/10/2020 04:44:00 PM [facility] FLUORESCENT NONNFCT AGT ANTB TITER EA ANTIBODY <td>SUZIE TROPHIL CYTOPLASMIC ANTIBODY</td><td>Routine</td><td>04/10/2020 4:44 PM EST</td><td></td><td> </td> 04/10/2020 04:44:00 PM [facility] THROMBOPLASTIN TIME PARTIAL PLASMA/WHOLE BLOOD <td>HEX AGONAL PHASE PHOSPHO NEUT</td><td>Routine</td><td>04/10/2020 4:44 PM EST</td><td></td><td> </td> 04/10/2020 04:44:00 PM [facility] ACUTE HEPATITIS PANEL <td>HEPATITIS PANEL, ACUTE</td><td>Routine</td><td>04/10/2020 4:44 PM EST</td><td></td><td> </td> 04/10/2020 04:44:00 PM [facility] CARDIOLIPIN ANTIBODY EACH IG CLASS <td>CARDIOLIPIN ANT IBODY, IGA</td><td>Routine</td><td>04/10/2020 4:44 PM EST</td><td></td><td> </td> 04/10/2020 04:44:00 PM [facility] 25 HYDROXY INCLUDES FRACTIONS IF PERFORMED <td>VITAMIN D 25 HYDROXY, TOTAL</td><td>Routine</td><td>04/10/2020 4:44 PM EST</td><td></td><td> </td> 04/10/2020 04:44:00 PM [facility] HEPATITIS B SURF ANTIBODY HBSAB <td>HEPATITIS B SURFAC E ANTIBODY</td><td>Routine</td><td>04/10/2020 4:44 PM EST</td><td></td><td> </td> 04/10/2020 04:44:00 PM [facility] BETA 2 GLYCOPROTEIN I ANTIBODY EACH <td>CCJR-2-FSZMQQU OTEIN IGA</td><td>Routine</td><td>04/10/2020 4:44 PM EST</td><td></td><td> </td> 04/10/2020 04:44:00 PM [facility] ANTIBODY BORRELIA BURGDORFERI LYME DISEASE <td>LYME IG G, IGM ANTIBODY</td><td>Routine</td><td>04/10/2020 4:44 PM EST</td><td></td><td> </td> 04/10/2020 04:44:00 PM [facility] C-REACTIVE PROTEIN <td>INFLAMMATORY C-REACTIVE PROTEIN (CRP)</td><td>Routine</td><td>04/10/2020 4:44 PM EST</td><td></td><td> </td> 04/10/2020 04:44:00 PM [facility] ANTINUCLEAR ANTIBODIES APOLINAR <td>APOLINAR</td><td>Routine</td ><td>04/10/2020 4:44 PM EST</td><td></td><td> </td> 04/10/2020 04:44:00 PM [facility] PROTEIN XCPT REFRACTOMETRY SERUM PLASMA/WHL BLD <td>CT OTEIN ELECTROPHORESIS WITH SERUM TOTAL PROTEIN</td><td>Routine</td><td>04/10/2020 4:44 PM EST</td><td></td><td> </td> 04/10/2020 04:44:00 PM [facility] HOMOCYSTEINE <td>HOMOCYSTEINE, SERUM</td> <td>Routine</td><td>04/10/2020 4:44 PM EST</td><td></td><td> </td> 04/10/2020 04:44:00 PM [facility] FOLIC ACID SERUM <td>FOLATE</td><td>Routine</ td><td>04/10/2020 4:44 PM EST</td><td></td><td> </td> 04/10/2020 04:44:00 PM [facility] CYANOCOBALAMIN VITAMIN B-12 <td>VITAMIN B12</td><td>Ro utine</td><td>04/10/2020 4:44 PM EST</td><td></td><td> </td> 04/10/2020 04:44:00 PM [facility] HEPATIC FUNCTION PANEL <td>HEPATIC FUNCTION PANEL A</td><td>Routine</td><td>04/10/2020 4:44 PM EST</td><td></td><td> </td> 04/10/2020 04:44:00 PM [facility] MRI SPINAL CANAL CERVICAL W/O & W/CONTR MATRL <td>MR C ERVICAL SPINE WITH AND WITHOUT CONTRAST [id number]</td><td>Routine</td><td>04/10/2020 2:44 PM EST</td><td></td><td> </td> 04/10/2020 02:44:00 PM [facility] MRI BRAIN BRAIN STEM W/O &W/CONTRAST MATERIAL <td>MR B RAIN WITH AND WITHOUT CONTRAST [id number]</td><td>Routine</td><td>04/10/2020 2:44 PM EST</td><td></td><td> </td> 04/10/2020 02:44:00 PM [facility] BLOOD COUNT COMPLETE AUTO&AUTO DIFRNTL WBC COUNT <td>C BC AND DIFFERENTIAL</td><td>Routine</td><td>04/10/2020 3:25 AM EST</td><td></td><td> </td> 04/10/2020 03:25:00 AM [facility] BASIC METABOLIC PANEL CALCIUM TOTAL <td>BASIC METABOLI C PANEL</td><td>Routine</td><td>04/10/2020 3:25 AM EST</td><td></td><td> </td> 04/10/2020 03:25:00 AM [facility] GLUCOSE QUANTITATIVE BLOOD XCPT REAGENT STRIP <td>POCT GLUCOSE, DOCKED</td><td>Routine</td><td>04/09/2020 7:45 PM EST</td><td></td><td> </td> 04/09/2020 07:45:00 PM [facility] PROTHROMBIN TIME <td>PROTIME INR</td><td>Rout ine</td><td>04/09/2020 7:43 PM EST</td><td></td><td> </td> 04/09/2020 07:43:00 PM [facility] BLOOD COUNT COMPLETE AUTO&AUTO DIFRNTL WBC COUNT <td>C BC AND DIFFERENTIAL</td><td>Routine</td><td>04/09/2020 7:43 PM EST</td><td></td><td> </td> 04/09/2020 07:43:00 PM [facility] THYROID STIMULATING HORMONE TSH <td>TSH</td><td>Routin e</td><td>04/09/2020 7:43 PM EST</td><td></td><td> </td> 04/09/2020 07:43:00 PM [facility] HEMOGLOBIN GLYCOSYLATED A1C <td>HEMOGLOBIN A1C</td><td>Routine</td><td>04/09/2020 7:43 PM EST</td><td></td><td> </td> 04/09/2020 07:43:00 PM [facility] LIPID PANEL <td>LIPID PANEL</td><td>Rout ine</td><td>04/09/2020 7:43 PM EST</td><td></td><td> </td> 04/09/2020 07:43:00 PM [facility] COMPREHENSIVE METABOLIC PANEL <td>COMPREHENSIVE METABO LIC PANEL</td><td>Routine</td><td>04/09/2020 7:43 PM EST</td><td></td><td> </td> 04/09/2020 07:43:00 PM [facility] EKG 12-LEAD - CMAXX REPORT <td>EKG 12-LEAD - CMAXX REPORT</td><td></td><td>04/09/2020 7:25 PM EST</td><td></td><td></td> 04/09/2020 07:25:48 PM [facility] EKG 12-LEAD - CMAXX REPORT <td>EKG 12-LEAD - CMAXX REPORT</td><td></td><td>04/09/2020 7:25 PM EST</td><td></td><td></td> 04/09/2020 07:25:48 PM EST [facility] EKG 12-LEAD <td>EKG 12-LEAD</td><td>Rout ine</td><td>04/09/2020 7:25 PM EST</td><td></td><td></td> 04/09/2020 07:25:48 PM EST [facility] EKG 12-LEAD <td>EKG 12-LEAD</td><td>Rout ine</td><td>04/09/2020 7:25 PM EST</td><td></td><td> </td> 04/09/2020 07:25:48 PM [facility] US GUIDANCE NEEDLE PLACEMENT RS&I <td>IR US GUIDED NEE DLE PLACEMENT</td><td>Routine</td><td>01/06/2020 4:00 PM EST</td><td></td><td> </td> 01/06/2020 09:00:00 PM EST [facility] PROTHROMBIN TIME <td>PROTIME-INR</td><td>STAT </td><td>01/06/2020 11:52 AM EST</td><td></td><td> </td> 01/06/2020 04:52:00 PM EST [facility] BLOOD COUNT COMPLETE AUTO&AUTO DIFRNTL WBC COUNT <td>C BC AND DIFFERENTIAL</td><td>Routine</td><td>01/06/2020 6:23 AM EST</td><td></td><td> </td> 01/06/2020 11:23:00 AM EST [facility] MRI SPINAL CANAL LUMBAR W/O &W/CONTR MATRL <td>MRI LUM BAR SPINE W WO CONTRAST</td><td>Routine</td><td>01/05/2020 5:46 PM EST</td><td></td><td> </td> 01/05/2020 10:46:56 PM EST [facility] RADEX SPINE LUMBOSACRAL 2/3 VIEWS <td>XR LUMBAR SPINE AP AND LATERAL</td><td>Routine</td><td>01/05/2020 1:41 AM EST</td><td></td><td> </td> 01/05/2020 06:41:17 AM EST [facility] COVID/FLU AB/RSV PCR <td>COVID/FLU AB/RSV PCR</td ><td>STAT</td><td>01/04/2020 10:09 PM EST</td><td></td><td> </td> 01/05/2020 03:09:00 AM EST [facility] BLOOD COUNT COMPLETE AUTO&AUTO DIFRNTL WBC COUNT <td>C BC AND DIFFERENTIAL</td><td>STAT</td><td>01/04/2020 10:09 PM EST</td><td></td><td> </td> 01/05/2020 03:09:00 AM EST [facility] COMPREHENSIVE METABOLIC PANEL <td>COMPREHENSIVE METABO LIC PANEL</td><td>STAT</td><td>01/04/2020 10:09 PM EST</td><td></td><td> </td> 01/05/2020 03:09:00 AM EST [facility] Results ID Date Data Source [id number] 12/19/2020 09:17:00 PM EST [facility] Name Value Range Interpretation Code Description Data Adriana rce(s) Supporting Document(s) SARS coronavirus 2 RNA [Presence] in Res piratory specimen by BINA with probe detection NEGATIVE [facility] This lab was ordered by [facility] a nd reported by [facility]. ID Date Data Source [id number] 09/25/2020 12:45:00 PM EDT [facility] Name Value Range Interpretation Code Description Data Adriana rce(s) Supporting Document(s) SARS coronavirus 2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 Levels [facility] Emergency Department [address] [place] [address] Phone #: tci- [phone] 04/19/2020 20:24 Patient: DELONTE ZAMORANO Sex: M : 1985 Age: 34y LIPASE 37 U/L (13 - 60)PT/PTT: (PORTIA: 04/19/2020 20:40) ( [facility] 04/19/2020 21:24) Final results Test Result Flag Units (Reference) PROTIME 12.6 SECONDS (11.0 - 15.5) INR 0.90 L (0.93 - 1.23) PTT 24.1 L SECONDS (24.8 - 36.7) \\BLDo\\INR INTERPRETATION\\BLDx\\ Therapeutic range for Coumadin andrelated oral anticoagulants. -International Normalized Ratio (INR): 2.0 - 3.0 for VenousThrombosis, Pulmonary Embolus, Tissue heart valves, Acute MA Atrial Fibrillation, Valvular heart diseaseand recurrent Systemic Embolism. -International Normalized Ratio (INR): 2.5 - 3.5 forMechanical Prosthetic valve.Troponin-T: (PORTIA: 04/19/2020 20:40) ( [facility] 04/19/2020 21:32) Final results Test Result Flag Units (Reference) TROPONIN T <0.01 NG/ML (0.00 - 0.10) TROPONIN T0.1 ng/ml Recommended as the clinical threshold value forTroponin T.TSH: (PORTIA: 04/19/2020 20:40) ( [facility] 04/19/2020 21:42) Final results Test Result Flag Units (Reference) TSH 0.75 uIU/mL (0.47 - 5.01)Magnesium: (PORTIA: 04/19/2020 20:40) ( [facility] 04/19/2020 21:31) Final results Test Result Flag Units (Reference) MAGNESIUM 1.9 MG/DL (1.7 - 2.2)ETOH: (PORTIA: 04/19/2020 20:40) ( [facility] 04/19/2020 21:31) Final results Test Result Flag Units (Reference) ALCOHOL <10.0 MG/DL ALCOHOL % 0.01 % (0.00 - 0.01) *FOR MEDICAL PURPOSES ONLY*Acetaminophen Level: (PORTIA: 04/19/2020 20:40) ( [facility]31[facility] Final results Test Result Flag Units (Reference) ACETAMINOPHEN <5.0 UG/ML (0.0 - 30.0)Salicylate Level: (PORTIA: 04/19/2020 20:40) ( [facility] 04/19/[facility] 21:32) Final results Test Result Flag Units (Reference) SALICYLATE <0.3 L mg/dL (2.0 - 20.0)Chest Portable 1 View: (PORTIA: 04/19/2020 21:01) ( [facility] 04/19/2020 21:55) In Old HundredCHEST PORTABLEReason(s): overdose, AMSTRANSPORTATION: P IV? O2? Oxygen?(No) Room: ED Exam CHEST [place] [address] PHONE: [phone] FAX: [phone] Clinical Report - Physicians/Mid Levels [facility] Emergency Department [address] [place] [address] Phone #: ext- [phone] 04/19/2020 20:24 Patient: DELONTE ZAMORANO Sex: M : 1985 Age: 34y Name .................. : KYLE Meyer Acct Number.................. : [id number] ROOM. ................. : TR-08 MR Number ................... : [id number] Stay type ............. : E/R Discharge Date......... ... : Admit Date ......... : 04/19/20 Admit Phys .................... : TURRIN REAGAN Date of ....... : 1985 Family Phys ................... : JOHNSON DIYA Phone .................. : [phone] Age ................................ : 34 Film# .................. .:[id number] Sex ................................. : M Unsigned transcriptions are preliminary reports and do not represent a medical or legal document CHEST PORTABLE [id number] COMPLETE:04/19/20 21:44 KJE 6320 Reason(s): overdose, AMS PORTABLE CHEST X-RAY: INDICATION: Overdose. FINDINGS: The cardiac and mediastinal silhouettes appear normal and the lungs are clear. The bones and soft tissues are normal. The upper abdomen is unremarkable. IMPRESSION: No acute disease identifiable. Electronically Reviewed and Signed By DCTSG SIGNDATE, GELACIO Transcribe Initials: MELANIE , Transcribe Date: 04/19/20 21:54, Dictation Date: <<REPDIST>> Page 1of 1COVID-19 CAH: (PORTIA: 04/19/2020 21:08) ( MsgRcvd 04/19/2020 21:39) Final results Test Result Flag Units (Reference) COVID-19 NOT DETECTED COVID-19 REENTER NOT DETECTED { PROCEDURAL CONTROL VALID KIT LOT # _[id number] ____04/19/20.2138.RAMYA. KIT EXP DATE _2-42-84 50/15/21.2138.RAMYA. NORMAL RANGE IS NOT DETECTEDNEGATIVE RESULTS SHOULD BE TREATEDAS PRESUMPTIVE AND, IF INCONSISTENT WITHCLINICAL SIGNS AND SYMPTOMS OR NECESSARY FOR PATIENT MANAGEMENT, SHOULDBETESTED WITH DIFFERENT AUTHORIZED OR CLEARED MOLECULAR TESTS. NEGATIVE RESULTSDO NOT PRECLUDE [id number] AND SHOULD NOT BE USED THE SOLE BASISFOR PATIENT MANAGEMENT DECISIONS.CT Head W/O Cont: (PORTIA: 04/19/2020 21:01) ( MsgRcvd 04/19/2020 21:44) In ProgressCT HEAD W/O CONTRASTReason(s): Altered Mental StatusTRANSPORTATION: S IV? O2? Oxygen?(No) Room: ED 7 Clinical Report - Physicians/Mid Levels [facility] Emergency Department [address] [place] [address] Phone #: ext- [phone] 04/19/2020 20:24 Patient: [...] was requested by: Chapito Love Reference #: [id number] Others' Prescriptions Patient Name: Delonte ZamoranoBirth Date: 1985 Address: [address] [id number]: Male Rx Written Rx Dispensed Drug Quantity [...] 15 Maribel Johnson [facility] #6 05/09/2019 05/15/2019 tramadol hcl 50 mg tablet 16 8 Maribel Johnson [facility] #[facility] 05/09/2019 05/09/2019 tramadol hcl 50 mg tablet 14 7 Maribel Johnson [facility] #6 * - Drugs marked with an asterisk are compound drugs. If the compound drug is made up of more than one 8 Clinical Report - Physicians/Mid Levels [facility] Emergency Department [address] [place] [address] Phone #: ext- [phone] 04/19/2020 20:24 Patient: DELONTE ZAMORANO Sex: M [...] back from stretcher w Rubi Talley, JUAN , at my side, and telling her to call police STAT; 2 RN's approached, he calmed down slightly, IV was removed, and he waited for police to arrive; about 10-12 minutes, [place] police arrived, came around the nurse's station where I was standing next to the sink and trying to explain the situation to him, when at that point, pt came out of room 8 walking fast towards both of us at nurse's station, police telling him to back off to room when he charged the police chief while my left arm got briefly caught [...] 9 Clinical Report - Physicians/Mid Levels [facility] Emergency Department [address] [place] [address] Phone #: ext- [phone] 04/19/2020 20:24 [id number] Sex: [facility] : 1985 Age: 34y Chronic [...] rce(s) Supporting Document(s) ID Date Data Source [id number] 04/19/2020 10:04:00 PM EDT [facility] Name Value Range Interpretation Code Description Data [facility] Supporting Document(s) pH of Serum or Plasma 7.39 7.32 - 7.43 [facility] pCO2 V 45.0 mm/HG 38.0 - 51.0 [facility] pO2 V 30.8 mm/HG 30.0 - 55.0 [facility] pital Bicarbonate [Moles/volume] in Venous blood 26.9 meq/L 22.0 - 29.0 [facility] TCO2 V 28.2 meq/L 22.0 - 29.0 [facility] Base excess in Blood by calculation 1.5 -2.0 - 2.0 [facility] O2 SAT V 58.6 % 40.0 - 85.0 [facility] ID Date Data Source [id number] 04/19/2020 10:03:00 PM EDT [facility] Name Value Range Interpretation Code Description Data Adriana rce(s) Supporting Document(s) Lactate [Moles/volume] in Serum or Plasma 1.9 MMOL/L 0.2 - 2.2 [facility] ID Date Data Source [id number] 04/19/2020 09:08:00 PM EDT [facility] Name Value Range Interpretation Code Description Data Adriana rce(s) Supporting Document(s) COVID19 Case rprt NOT DETECTED [facility] This lab [facility] and reported by [facility]. ID Date Data Source [id number] 04/19/2020 09:39:00 PM EDT [facility] NOT DETECTEDNOT DETECTED{ PROC EDURAL CONTROL VALID KIT LOT # _[id number] 04/19/20.RAMYA. KIT EXP DATE _4-74-46 04/19/20.RAMYA. NORMAL RANGE IS NOT DETECTEDNEGATIVE RESULTS [...] rce(s) Supporting Document(s) ID Date Data Source [id number] 04/19/2020 09:41:00 PM EDT [facility] Name Value Range Interpretation Code Description Data Adriana rce(s) Supporting Document(s) Thyrotropin [Units/volume] in Serum or Plasma by Detec tion limit <= 0.05 mIU/L 0.75 uIU/mL 0.47 - 5.01 [facility] ID Date Data Source [id number] 04/19/2020 09:32:00 PM EDT [facility] Name Value Range Interpretation Code Description Data Adriana rce(s) Supporting Document(s) SALICYLATE <0.3 mg/dL 2.0 - 20.0 L [facility] ID Date Data Source [id number] 04/19/2020 09:32:00 PM EDT [facility] Name Value Range Interpretation Code Description Data Adriana rce(s) Supporting Document(s) COMPREHENSIVE METABOLIC PANEL [facility] COMPREHENSIVE METABOLIC PANEL Sodium [Moles/volume] in Serum or Plasma 137 mEq/L 134 - 153 [facility] Potassium [Moles/volume] in Serum or Plasma 3.6 mEq/L 3.6 - 5.0 [facility] Chloride [Moles/volume] in Serum or Plasma 100 mEq/L 98 - 107 [facility] Carbon dioxide, total [Moles/volume] in Serum or Plasma 25 MEQ/L 22 - 30 [facility] Glucose [Mass/volume] in Serum or Plasma 161 MG/DL 70 - 99 H [facility] BUN 13 MG/DL 7 - 21 [facility] al Creatinine [Mass/volume] in Serum or Plasma 0.9 MG/DL 0.7 - 1.5 [facility] BUN/CREAT 14 8 - 27 [facility] al Protein [Mass/volume] in Serum or Plasma 6.8 G/DL 6.3 - 8.2 [facility] Albumin [Mass/volume] in Serum or Plasma 4.4 G/DL 3.9 - 5.0 [facility] Globulin [Mass/volume] in Serum by calculation 2.4 GM/DL 2.4 - 3.2 [facility] A/G RATIO 1.8 0.8 - 2.0 [facility] Calcium [Mass/volume] in Serum or Plasma 8.9 MG/DL 8.4 - 10.2 [facility] Bilirubin.total [Mass/volume] in Serum or Plasma <0.7 MG/DL 0.2 - 1.3 [facility] Alkaline phosphatase [Enzymatic activity/volume] in Serum or Plasma 64 U/L 38 - 126 [facility] Aspartate aminotransferase [Enzymatic activity/volume] in Serum or Plasma 11 U/L 5 - 40 [facility] Alanine aminotransferase [Enzymatic activity/volume] in Seru m or Plasma 23 U/L 7 - 56 [facility] Anion gap 3 in Serum or Plasma 12.0 mmol/L 8.0 - 16.0 [facility]GE 34 [facility] >60 mL/min [facility] AFR AMER GFR >60 mL/min [facility] Male GFR In terprentation [...] >32 mL/min Normal ID Date Data Source [id number] 04/19/2020 09:32:00 PM EDT [facility] Name Value Range Interpretation Code Description Data Adriana rce(s) Supporting Document(s) TROPONIN T <0.01 NG/ML 0.00 - 0.10 [facility] TROPONIN T0.1 ng/ml Recommended as the c linical threshold value forTroponin T. ID Date Data Source [id number] 04/19/2020 09:31:[address] [facility] Value Range Interpretation Code Description Data Adriana rce(s) Supporting Document(s) Acetaminophen [Presence] in Urine <5.0 UG/ML 0.0 - 30.0 [facility] ID Date Data Source [id number] 04/19/2020 09:31:[address] [facility] Value Range Interpretation Code Description Data Adriana rce(s) Supporting Document(s) Ethanol [Moles/volume] in Blood <10.0 MG/DL [facility] ALCOHOL % 0.01 % 0.00 - 0.01 [facility] *FOR MEDICAL PURPOSES ONLY * ID Date Data Source [id number] 04/19/2020 09:31:[address] [facility] Value Range Interpretation Code Description Data Adriana rce(s) Supporting Document(s) Magnesium [Mass/volume] in Serum or Plasma 1.9 MG/DL 1.7 - 2.2 [facility] ID Date Data Source [id number] 04/19/2020 09:31:[address] [facility] Value Range Interpretation Code Description Data Adriana rce(s) Supporting Document(s) Lipase [Enzymatic activity/volume] in Serum or Plasma 37 U/L 13 - 60 [facility] ID Date Data Source [id number] 04/19/2020 09:30:00 PM EDT [facility] Name Value Range Interpretation Code Description Data Adriana rce(s) Supporting Document(s) CBC W/AUTOMATED DIFF [facility] COMPLETE BLOOD COUNT Leukocytes [#/volume] in Blood by Automated count 16.7 10^3/uL 4.2 - 11.0 H [facility] Erythrocytes [#/volume] in Blood by Automated count 5.11 10^6/uL 4. 50 - 6.30 [facility] Hemoglobin [Mass/volume] in Blood 16.0 g/dL 14.0 - 16.0 [facility] Hematocrit [Volume Fraction] of Blood by Automated count 44.3 % 4 1.0 - 51.0 [facility] Erythrocyte mean corpuscular volume [Entitic volume] by Auto mated count 86.7 fL 80.0 - 94.0 [facility] Erythrocyte mean corpuscular hemoglobin [Entitic mass] by Automated count 31.3 pg 27.0 - 34.0 [facility] Erythrocyte mean corpuscular hemoglobin concentration [Mass/volume] by Automated count 36.1 g/dL 31.0 - 36.0 H [facility] Erythrocyte distribution width [Ratio] by Automated count 12.9 % 11.5 - 14.8 [facility] Platelets [#/volume] in Blood by Automated count 453 10^3/uL 150 - 45 0 H [facility] Platelet mean volume [Entitic volume] in Blood by Automated count 9.2 fL 7.4 - 10.4 [facility] Neutrophils/100 leukocytes in Blood by Automated count 69.9 % 37. 0 - 80.0 [facility] Lymphocytes/100 leukocytes in Blood by Manual count 21.6 % 25.0 - 40.0 L [facility] Monocytes/100 leukocytes in Blood by Automated count 6.4 % 3.0 - 8.0 [facility] Eosinophils/100 leukocytes in Blood by Automated count 0.6 % 0.0 - 7.0 [facility] 0.2 %IG 1.3 % 0.0 - 0.0 H [facility] %NRBC 0.0 % 0.0 - 0.0 [facility] Neutrophils [#/volume] in Blood by Automated count 11.66 10^3/uL 2. 00 - 6.90 H [facility] Lymphocytes [#/volume] in Blood by Automated count 3.61 10^3/uL 0.60 - 3.40 H [facility] Monocytes [#/volume] in Blood by Automated count 1.07 10^3/uL 0.00 - 0.90 H [facility] Eosinophils [#/volume] in Blood by Automated count 0.10 10^3/uL 0.00 - 0.70 [facility] Basophils [#/volume] in Blood by Automated count 0.04 10^3/uL 0.00 - 0.20 [facility] #IG 0.22 10^3/uL 0.00 - 0.10 H [facility] #NRBC 0.00 10^3/uL 0.00 - 0.00 [facility] MANUAL DIFF SEE BELOW [facility] Segmented neutrophils/100 leukocytes in Blood by Manual count 66 % 37 - 80 [facility] BAND 0 % 0 - 5 [facility] %LYMPH 26 % 25 - 40 [facility] %MONO 7 % 3 - 8 [facility] %EOS 1 % 0 - 7 [facility] 0 Metamyelocytes/100 leukocytes in Blood by Manual count 0 % [facility] Myelocytes/100 leukocytes in Blood by Manual count 0 % [facility] Promyelocytes/100 leukocytes in Blood by Manual count 0 % [facility] Blasts/100 leukocytes in Blood by Manual count 0 % [facility] VIKI LYM 0 % [facility] Nucle[facility]/100 erythrocytes in Blood by Manual count 0 % [facility] RBC MORPH NOT INDICATED [facility] Ho spital ID Date Data Source [id number] 04/19/2020 09:24:00 PM EDT [facility] Name Value Range Interpretation Code Description Data Adriana rce(s) Supporting Document(s) Prothrombin time (PT) 12.6 SECONDS 11.0 - 15.5 Health system INR in Platelet poor plasma by Coagulation assay 0.90 0.93 - 1. 23 L [facility] aPTT in Blood by Coagulation assay 24.1 SECONDS 24.8 - 36.7 L [facility] \\BLDo\\INR INTERPRETATION\\BLDx\\ Therapeutic range for Coumadin and related oral anticoagulants. - International Normalized Ratio (INR): 2.0 - 3.0 for Venous Thrombosis, Pulmonary Embolus, Tissue heart valves, Acute MA Atrial Fibrillation, Valvular heart disease and recurrent Systemic Embolism. - International Normalized Ratio (INR): 2.5 - 3.5 for Mechanical Prosthetic valve. ID Date Data Source [id number] 04/16/2020 04:19:00 PM EST [facility] Name Value Range Interpretation Code Description Data Adriana rce(s) Supporting Document(s) COMPREHENSIVE METABOLIC PANEL [facility] COMPREHENSIVE METABOLIC PANEL Sodium [Moles/volume] in Serum or Plasma 142 mEq/L 134 - 153 [facility] Potassium [Moles/volume] in Serum or Plasma 3.3 mEq/L 3.6 - 5.0 L [facility] Chloride [Moles/volume] in Serum or Plasma 103 mEq/L 98 - 107 [facility] Carbon dioxide, total [Moles/volume] in Serum or Plasma 26 MEQ/L 22 - 30 [facility] Glucose [Mass/volume] in Serum or Plasma 110 MG/DL 70 - 99 H [facility] BUN 17 MG/DL 7 - 21 [facility] al Creatinine [Mass/volume] in Serum or Plasma 0.9 MG/DL 0.7 - 1.5 [facility] BUN/CREAT 19 8 - 27 [facility] al Protein [Mass/volume] in Serum or Plasma 6.6 G/DL 6.3 - 8.2 [facility] Albumin [Mass/volume] in Serum or Plasma 4.3 G/DL 3.9 - 5.0 [facility] Globulin [Mass/volume] in Serum by calculation 2.3 GM/DL 2.4 - 3.2 L [facility] A/G RATIO 1.9 0.8 - 2.0 [facility] Calcium [Mass/volume] in Serum or Plasma 8.9 MG/DL 8.4 - 10.2 [facility] Bilirubin.total [Mass/volume] in Serum or Plasma <0.7 MG/DL 0.2 - 1.3 [facility] Alkaline phosphatase [Enzymatic activity/volume] in Serum or Plasma 59 U/L 38 - 126 [facility] Aspartate aminotransferase [Enzymatic activity/volume] in Serum or Plasma 12 U/L 5 - 40 [facility] Alanine aminotransferase [Enzymatic activity/volume] in Seru m or Plasma 21 U/L 7 - 56 [facility] Anion gap 3 in Serum or Plasma 13.0 mmol/L 8.0 - 16.0 [facility] AGE 34 yrs [facility] Hospit al NON-AA GFR >60 mL/min [facility] Hosp ital AFR AMER GFR >60 mL/min [facility] Ho spital Male GFR In terprentation [...] >32 mL/min Normal ID Date Data Source [id number] 04/16/2020 04:11:00 PM EST [facility] Name Value Range Interpretation Code Description Data Adriana rce(s) Supporting Document(s) CBC W/AUTOMATED DIFF [facility] COMPLETE BLOOD COUNT Leukocytes [#/volume] in Blood by Automated count 20.5 10^3/uL 4.2 - 11.0 H [facility] Erythrocytes [#/volume] in Blood by Automated count 5.18 10^6/uL 4. 50 - 6.30 [facility] Hemoglobin [Mass/volume] in Blood 16.1 g/dL 14.0 - 16.0 H [facility] Hematocrit [Volume Fraction] of Blood by Automated count 44.9 % 4 1.0 - 51.0 [facility] Erythrocyte mean corpuscular volume [Entitic volume] by Auto mated count 86.7 fL 80.0 - 94.0 [facility] Erythrocyte mean corpuscular hemoglobin [Entitic mass] by Automated count 31.1 pg 27.0 - 34.0 [facility] Erythrocyte mean corpuscular hemoglobin concentration [Mass/volume] by Automated count 35.9 g/dL 31.0 - 36.0 [facility] Erythrocyte distribution width [Ratio] by Automated count 12.8 % 11.5 - 14.8 [facility] Platelets [#/volume] in Blood by Automated count 477 10^3/uL 150 - 45 0 H [facility] Platelet mean volume [Entitic volume] in Blood by Automated count 9.4 fL 7.4 - 10.4 [facility] Neutrophils/100 leukocytes in Blood by Automated count 58.9 % 37. 0 - 80.0 [facility] Lymphocytes/100 leukocytes in Blood by Manual count 29.6 % 25.0 - 40.0 [facility] Monocytes/100 leukocytes in Blood by Automated count 8.5 % 3.0 - 8.0 H [facility] Eosinophils/100 leukocytes in Blood by Automated count 0.2 % 0.0 - 7.0 [facility] 0.4 %IG 2.4 % 0.0 - 0.0 H [facility] al %NRBC 0.0 % 0.0 - 0.0 [facility] al Neutrophils [#/volume] in Blood by Automated count 12.08 10^3/uL 2. 00 - 6.90 H [facility] Lymphocytes [#/volume] in Blood by Automated count 6.08 10^3/uL 0.60 - 3.40 H [facility] Monocytes [#/volume] in Blood by Automated count 1.75 10^3/uL 0.00 - 0.90 H [facility] Eosinophils [#/volume] in Blood by Automated count 0.04 10^3/uL 0.00 - 0.70 [facility] Basophils [#/volume] in Blood by Automated count 0.08 10^3/uL 0.00 - 0.20 [facility] #IG 0.50 10^3/uL 0.00 - 0.10 [facility] ospital #NRBC 0.00 10^3/uL 0.00 - 0.00 [facility] MANUAL DIFF SEE BELOW [facility] Segmented neutrophils/100 leukocytes in Blood by Manual count 61 % 37 - 80 [facility] BAND 0 % 0 - 5 [facility] %LYMPH 30 % 25 - 40 [facility] %MONO 9 % 3 - 8 [facility] %EOS 0 % 0 - 7 [facility] 0 Metamyelocytes/100 leukocytes in Blood by Manual count 0 % [facility] Myelocytes/100 leukocytes in Blood by Manual count 0 % [facility] Promyelocytes/100 leukocytes in Blood by Manual count 0 % [facility] Blasts/100 leukocytes in Blood by Manual count 0 % [facility] VIKI LYM 0 % [facility] Nucleated erythrocytes/100 erythrocytes in Blood by Manual count 0 % [facility] RBC MORPH NOT INDICATED [facility] ID Date Data Source [id number] 04/14/2020 05:03:47 PM [facility] Name Value Range Interpretation Code Description Data Adriana rce(s) Supporting Document(s) Discharge Summary [facility] [id number] lbm [file] [id number]== ID Date Data Source [id number] 04/09/2020 11:42:00 AM EST [facility] 1 OrderSheet [facility] Emergency Department [address] [place] [address] Phone #: ext- [phone] 04/09/2020 11:33 Patient: DELONTE ZAMORANO Sex: M : 1985 Age: 34yWEIGHT:97.5 kg (S) HEIGHT:71 inches (S) BMI:30.0ALLERGIES: Gabapentin, ToradolCHIEF COMPLAINT: weakness, paresthesia, walkingDIAGNOSIS: Cerebrovascular accidentLAB ORDERSOrder Description Priority Entered Acknowledged InitialedBlood Culture STAT 12:04/09/2020 12:27 Anel Lopez X2 (Yoav Oates R.NMorris12:07 04/09/2020) ;Blood Culture STAT 12:04/09/2020 12:27 Crystal Lopezm X2 (Yoav Oates R.NMorris12:17 04/09/2020) ;CBC w Diff STAT 12:04/09/2020 12:27 Patrica Lopez Victoria R.NMorris ;CMP STAT 12:04/09/2020 12:27 Patrica Lopez Victoria R.NMorris ;Fibrinogen Level STAT 12:04/09/2020 12:27 Patrica Lopez Victoria R.NMorris ;Magnesium STAT 12:04/09/2020 12:27 Patrica Lopez Victoria R.N. ;PT/INR STAT 12:04/09/2020 12:27 Patrica Lopez Victoria R.N. ;PT/PTT STAT 12:04/09/2020 12:27 Patrica Lopez Victoria R.N. ;Urinalysis (Clean STAT 12:04/09/2020 Cancelled: Patient Refusal 15:50 Ifeanyi Lopez Victoria Julie R.N. ;Venous Blood Gas STAT 12:04/09/2020 12:28 Patrica Lopez Victoria R.N. ;COVID-19 CAH (Not STAT 14:19 04/09/2020 14:19 Patrica Lopez 2 OrderSheet [facility] Emergency Department [address] [place] [address] Phone #: ext- [phone] 04/09/2020 11:33 Patient: DELONTE ZAMORANO Sex: M : 1985 Age: 34ySymptomatic as Patrica Lopez R.N.; R.N.Defined by CDC) Verbal order per;(04/07/20) (Not First Ángel Vargas) (Hospitalized)(Not ) (NotResident inCongregate CareSetting) (NotEmployed inHealthcare Setting)DIAGNOSTIC STUDY ORDERSOrder Description Priority Entered Acknowledged InitialedChest Portable 1 STAT 12:04/09/2020 12:21 Renato Lopez Victoria R.N.(Oxygen?(No)) ; Reason for Study: strokeCT HEAD (STROKE STAT 12:07 04/09/2020 12:21 Patrica LopezPROTYoav Chapman R.N.(Oxygen?(No)) ;(IV?(Yes)) Reason [...] mL/hr 12:07 04/09/2020 12:31 Patrica Lopez Victoria RMorrisNMorris ;Ativan IVP 2 mg 12:58 04/09/2020 13:04 Patrica Lopez(NOW x1, HIGH Sandy Dimas R.N.ALERT R.N.; Verbal orderMEDICATION) per; Yoav VargasOfirmev IV 1000 mg 13:49 04/09/2020 14:18 Patrica Lopez(NOW x1, Infuse C Yoav stapleton R.N. 3 OrderSheet [facility] Emergency Department [address] [place] [address] Phone #: ext- [phone] 04/09/2020 11:33 Patient: DELONTE ZAMORANO Sex: M : 1985 Age: 34yover 15 minutes) ;Percocet PO 1 tab 15:34 04/09/2020 15:38 Patrica Lopez(HIGH ALERT Yoav Vargas ROniMEDICATION) ;GENERAL ORDERSOrder Description Priority Entered Acknowledged InitialedAccucheck 12:07 04/09/2020 12:21 Patrica Lopez Victoria RMorrisNMorris ;Blood Pressure 12:07 04/09/2020 12:16 John, JulYoav Valdez R.N. ;Industrial Pharmacist 12:07 04/09/2020 12:16 Patrica Lopez(continuous) Yoav Vargas R.N. ;EKG 12:04/09/2020 12:16 Patrica Lopez Victoria R.N. ;Thurman Catheter 12:07 04/09/2020 Cancelled: Physician Order 12:30 Alicia Lopez Victoria Julie R.N. ;Hemorrhagic stroke 12:07 04/09/2020 12:30 Darleen Lopez SBP<160, Yoav Vargas R.N.DBP<90 mmHg ;HOB @ 30 degrees 12:07 04/09/2020 12:20 Mackenzie Lopez in neutral Yoav Vargas R.N.position ;If glucose >130, see 12:07 04/09/2020 12:20 Kalyan Lopez insulin orders Yoav Vargas R.N. ;Ischemic stroke 12:07 04/09/2020 12:17 Darleen Lopez SBP<220, Yoav Vargas R.N.DBP<120 mmHg ;NPO 12:07 04/09/2020 12:17 Patrica Lopez Victoria R.N. ;Ntfy if Abnml Vitals 12:07 04/09/2020 12:17 Patrica Lopez Victoria R.N. ;Obtain Old EKG 12:04/09/2020 12:17 Patrica Lopez Victoria R.N. ; 4 OrderSheet [facility] Emergency Department [address] [place] [address] Phone #: [phone] ext- [phone] 04/09/2020 11:33 Patient: DELONTE ZAMORANO Sex: M : 1985 Age: 34yOxygen titrate to 12:07 04/09/2020 12:17 Patrica Lopez92% Yoav Vargas R.N. ;Pulse oximeter 12:07 04/09/2020 12:17 Patrica Lopez(Continuous) Yoav Vargas R.N. ;Saline Lock 12:07 04/09/2020 12:27 Patrica Lopez Victoria R.N. ;Stroke Alert 12:07 04/09/2020 12:17 Patrica Lopez Victoria R.N. ;Swallowing screen 12:07 04/09/2020 12:16 Torres Lopez on all pts prior Yoav Vargas R.N.to first PO intake ;Vitals 12:07 04/09/2020 12:27 Patrica Lopez Victoria R.N. ;Consult - 14:06 04/09/2020 14:18 Patrica LopezHospitalist Yoav Vargas R.N. ;Transfer: 14:04/09/2020 14:18 Patrica Lopez Victoria R.N. ;[Electronically signed by Patrica Lopez R.N. (16:06 04/09/2020)][Electronically signed by Yoav Vargas (05:19 04/10/2020)][Electronically locked by Patrica Lopez R.N. (16:06 04/09/2020)] Name Value Range Interpretation Code Description Data Adriana rce(s) Supporting Document(s) ID Date Data Source [id number] 04/09/2020 11:42:00 AM EST [facility] 1 Medication Reconciliation Report [facility] Emergency Department [address] [place] [address] Phone #: ext- [phone] 04/09/2020 11:33 Patient: [...] rce(s) Supporting Document(s) ID Date Data Source [id number] 04/09/2020 11:42:00 AM EST [facility] 1 Medication Administration Record [facility] Emergency Department [address] [place] [address] Phone #: ext- [phone] 04/09/2020 11:33 Patient: DELONTE ZAMORANO Sex: M : 1985 Age: 34yWeight: 97.5 kgHeight/Length: 71 inBMI: 30ALLERGIES: Gabapentin, Toradol Date/Time Medication Administered Medication OrderedStart IV NS IV NS : 100 mL/hr12:31 04/09/2020 Dose: IV Patrica Jolley R.N. Rate: 100 mL/hr over 4 hour(s)---- Dispensed: 1000 mL bagStop Site: #1 left AC15:49 1RPatrica shukla R.N.Given ATIVAN [IVP] (LORAZEPAM) Ativan IVP 2 [...] rce(s) Supporting Document(s) ID Date Data Source [id number] 04/09/2020 11:42:00 AM [facility] 1 General Instructions [facility] Emergency Department [address] [place] [address] Phone #: ext- [phone] 04/09/2020 11:33 Patient: DELONTE ZAMORANO Sex: M : 1985 Age: 34yNontraumatic cerebrovascular accident- embolic ischemic infarct involving an unknown intracranial artery.No hemorrhage.(Electronically signed by Yoav Vargas 04/10/2020 05:18) Name Value Range Interpretation Code Description Data Adriana rce(s) Supporting Document(s) ID Date Data Source [id number] 04/09/2020 11:42:00 AM [facility] 1 Clinical Report - Nurses [facility] Emergency Department [address] [place] [address] Phone #: ext- [phone] 04/09/2020 11:33 Patient: DELONTE ZAMORANO Sex: Betsy : 1985 Age: 34yTRIAGEArrived by private vehicle. [...] weeks ago). 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 (1000). --11:40 04/09/20 Patrica Lopez R.N.11:47 [...] Pain. 2 Clinical Report - Nurses [facility] Emergency Department [address] [place] [address] Phone #: ext- [phone] 04/09/2020 11:33 Patient: [...] and 3 Clinical Report - Nurses [facility] Emergency Department [address] [place] [address] Phone #: ext- [phone] 04/09/2020 11:33 Patient: [...] Lopez R.N. 12:05 04/09/20. Patient transported to [place] by stretcher with tech. --12:15 04/09/20 Patrica Lopez R.N. 12:10 04/09/20. Patient returned from CT by stretcher with nurse. --12:15 04/09/20 Patrica Lopez R.N. EKG time: (12:15 04/09/2020). --12:16 04/09/20 Patrica Lopez R.N. 12:17 04/09/20. BP: 146/83. MAP: 104. HR: 75. RR: 11. O2 saturation: 100%. --12:17 04/09/20 [place] [facility] 4 Clinical Report - Nurses [facility] Emergency Department [address] [place] [address] Phone #: ext- [phone] 04/09/2020 11:33 Patient: DELONTE ZAMORANO Sex: M : 1985 Age: 34yTech, Marisol, ER Dtgi9Acpkuc stick glucose: 86; performed by nurse; result shown to the ED physician. --12:20 04/09/20 Patrica Lopez R.N.12:29 04/09/20. BP: 126/81. MAP: 96. HR: 86. RR: 21. O2 saturation: 100%. --12:29 04/09/20 Daisha BernardaRosasMarisolJUAN Pljc178:31 04/09/2020 Site #1 started via IV in [...] Patrica Lopez R.N.13:16 04/09/20. Patient transported to [facility] by wheelchair with tech. --13:21 04/09/20 Patrica Lopez R.N.13:46 04/09/20. BP: 146/84. MAP: 104. HR: 91. RR: 19. O2 saturation: 100%. --13:47 04/09/20 Marisol [facility] ER Nqza6Ogyyhdw returned from [facility] by wheelchair with tech. --13:49 04/09/20 [...] R.N.( pt made aware of transport to [facility]). --14:20 04/09/20 Patrica Lopez R.N.14:34 04/09/20. BP: 149/99. MAP: 115. HR: 78. RR: 18. O2 saturation: 100%. --14:34 04/09/20 [employer] 5 Clinical Report - Nurses [facility] Emergency Department [address] [place] [address] Phone #: ext- [phone] 04/09/2020 11:33 Patient: DELONTE ZAMORANO Sex: M : 1985 Age: 34y 14:59 04/09/20. BP: 144/102. MAP: 116. HR: 67. RR: 18. O2 saturation: 97%. --15:00 04/09/20 [employer] ( waiting for transfer to [facility] no change in neuro status). --15:12 04/09/20 Patrica Lopez R.N. 15:34 04/09/20. BP: 126/102. MAP: 110. HR: 90. RR: 21. O2 saturation: 100%. --15:34 04/09/20 [employer] 15:37 04/09/2020 Ofirmev IV Discontinued: completed. [...] Patrica Lopez R.N.DISPOSITION / DISCHARGE Transferred to [facility]. Visit overview, summary of care (CCDA) [...] R.N. 6 Clinical Report - Nurses [facility] Emergency Department [address] [place] [address] Phone #: ext- [phone] 04/09/2020 11:33 Patient: DELONTE ZAMORANO Sex: M : 1985 Age: 34y Name Value Range Interpretation Code Description Data Adriana rce(s) Supporting Document(s) ID Date Data Source [id number] 04/09/2020 11:42:00 AM EST [facility] 1 Clinical Report - Physicians/Mid Levels [facility] Emergency Department [address] [place] [address] Phone #: ext- [phone] 04/09/2020 11:33 Patient: DELONTE ZAMORANO Sex: M [...] 2 Clinical Report - Physicians/Mid Levels [facility] Emergency Department [address] [place] [address] Phone #: ext- [phone] 04/09/2020 11:33 Patient: [...] 3 Clinical Report - Physicians/Mid Levels [facility] Emergency Department [address] [place] [address] Phone #: ist- [phone] 04/09/2020 11:33 Patient: DELONTE ZAMORANO Sex: M [...] the radiologist. CT Head: (Kate cabrera Brian - 04/09/2020 12:19:50 PM Report Called Kate cabrera [...] 4 Clinical Report - Physicians/Mid Levels [facility] Emergency Department [address] [place] [address] Phone #: ext- [phone] 04/09/2020 11:33 Patient: DELONTE ZAMORANO Sex: M [...] NOT INDICATEDFibrinogen Level: (PORTIA: 04/09/2020 12:38) ( [facility] 04/09/2020 13:42) Final results Test Result Flag Units (Reference) FIBRINOGEN 285.0 mg/dL (179 - 506)PT/INR: (PORTIA: 04/09/2020 12:38) ( [facility] 04/09/2020 12:42) CanceledPT/PTT: (PORTIA: 04/09/2020 12:38) ( [facility] 04/09/2020 13:42) Final results Test Result Flag Units (Reference) PROTIME 12.7 SECONDS (11.0 - 15.5) INR 0.91 L (0.93 - 1.23) PTT 28.5 SECONDS (24.8 - 36.7) \\BLDo\\INR INTERPRETATION\\BLDx\\ Therapeutic range for Coumadin andrelated oral anticoagulants. -International Normalized Ratio (INR): 2.0 - 3.0 for VenousThrombosis, Pulmonary Embolus, Tissue heart valves, Acute MA Atrial Fibrillation, Valvular heart diseaseand recurrent Systemic Embolism. -International Normalized Ratio (INR): 2.5 - 3.5 forMechanical Prosthetic valve.Venous Blood Gas: (PORTIA: 04/09/2020 12:38) ( [facility] 04/09/2020 12:53) Final results Test Result [...] 5 Clinical Report - Physicians/Mid Levels [facility] Emergency Department [address] [place] [address] Phone #: ext- [phone] 04/09/2020 11:33 Patient: DELONTE ZAMORANO Sex: M [...] discussed the case with DR Duffy at [facility] who accepted the patient 15:35 04/09/20. [...] to transfer explained to patient. Transferred to [facility]. 14:06 14:06. UTI (catheter associated) was [...] 05:18) 6Clinical Report - Physicians/Mid Levels [facility] Emergency Department [address] [place] [address] Phone #: ext- [phone] 04/09/2020 11:33 Patient: DELONTE ZAMORANO Sex: M : 1985 Age: 34y Name Value Range Interpretation Code Description Data Adriana rce(s) Supporting Document(s) ID Date Data Source [id number] 04/09/2020 11:42:00 AM [facility] Addenda for DELONTE ZAMORANO VisitID: [id number] Date: 12:06blood culture positive for staph, results faxed to [facility](Electronically signed by Brianne Arcos RN - 04/11/2020 12:06)04/14/2020 13:52Previously already faxed to [facility] on 04/11/2020; Shown to Niurka CHAVEZ at 1352, okay with this, nofurther intervention required.(Electronically signed by Sandy Dimas R.N. - 04/14/2020 13:52) Name Value Range Interpretation Code Description Data Adriana rce(s) Supporting Document(s) ID Date Data Source [id number] 04/12/2020 02:51:26 PM [facility] Name Value Range Interpretation Code Description Data Adriana rce(s) Supporting Document(s) Consultation [facility] ZCNADt1aOlXFRnUg44/WHIlwPTTfz2ZzHIdcZDm4ZHosXSCnF4DkOUM1lK7hREZ6DImKGyIoXpEpSgE1 lbm [file] assistant news director+LM3IiO5DwUN8fm2+bFR1jv0l7lhnQox1bzN0DP qHGTr7Yo10o+HsvE6FOLLbXgSGY0jJP4m99ZWKkAw41A1GEy9TAeik30uxgfn7JdWr66P+jpkDcMtQHK t+32OMLz/SIR3gXpSHSNg0C6fwPGtc6FtjlC/Gjr1/1XHr/8L6MN3i66/lyI5uqSBwU58CbrnmvgOq3X XBRIPyQzmZnsMHMtaVWPzNrSOMxCu+lL2PSs/e5afj CFU3wE1OT9Umx1Owo5Q0yQU0ajMyTaSUecEake9PIwVBgGf382HdsQnyMTap9RxLgYTVo+KBiDQKbTo8 EWGPZt3nh5o3B8CoZnBh/D1wlBkvFeedIJBniVNETVD0zDJLKQyUIgRO6AF8zRDwMNhhIRwIAx04dRa6 vJw5SiOLtgpPv5ChLMfB6QN/HQhvLK4mAo8EOf4Gze 0F/3k77KlI3MB/Outbound Sales Specialist+KcJtva41miqYrxoVaSonEg/Osv6ooFZBsLaDZL6vcYyfI8STZ5kg9UdRIjhARLt [file] ICAgICAgICAgICAgICAgICAgICAgICAgICAgICAgICAgICAgICAgICAgICAgICAgICAgICAgICAgICAg RBPkQXQzFWGiAQXwKMTsHUAqLQ9ZCHYpKVKvLPKbGKPcDBSwBVMkPUCyEHEyZLXvUMZpJPEuNAKwPYXd ICAgICAgICAgICAgICAgICAgICAgICAgICAgICAgIC ZvXZTvNOYeDPQxLHCmJGFiXUPtUTPpKKBlMIRrXD9PNPIpMNQbWPDfAIEjBFKuEOEqJMFvQZTlBCKfMI AgICAgICAgICAgICAgICAgICAgICAgICAgICAgICAgICAgICAgICAgICAgICAgICAgICAgICAgICAgIC EtRYVxHHBzFUYvXD2WPWTgQXXeLKVfOEXxTPJnRENl ICAgICAgICAgICAgICAgICAgICAgICAgICAgICAgICAgICAgICAgICAgICAgICAgICAgICAgICAgICAg WHTuFHDkURMiZQBnZXSoMDJdMFXxZN6CEUQpKHBfNMXzFPIwKHCfWAZoUTRtSAWwMYMlSSFsZCHhSFEt ICAgICAgICAgICAgICAgICAgICAgICAgICAgICAgIC LkRRRzNZAqOHLyLNVrOQMoQIUaOPOyAYYuVMHcDSRmZU9XMXSoWDWoAGAePMWmWUMsEXWrSSFxQETsZF AgICAgICAgICAgICAgICAgICAgICAgICAgICAgICAgICAgICAgICAgICAgICAgICAgICAgICAgICAgIC JtXRToVBAhWMZaCZCnTJ1BAFQoMYJxQKZbJIDfNUXg ICAgICAgICAgICAgICAgICAgICAgICAgICAgICAgICAgICAgICAgICAgICAgICAgICAgICAgICAgICAg URDnOXWpDOAsMJSjZRTtBIDsWCSgUJVlJY7GPISuNREeWYSnGTYzBNQkUTLmBZEbTQPhHWLsXNFqMSTs ICAgICAgICAgICAgICAgICAgICAgICAgICAgICAgIC FfZXObADDaHSBtLCZsGFFaSPZhVHXqXGZjRWYuYAOhYSFbES2IHRRiOMWrXGYsFFYdXQTrQMPfLNPcOG AgICAgICAgICAgICAgICAgICAgICAgICAgICAgICAgICAgICAgICAgICAgICAgICAgICAgICAgICAgIC JsGEBhACSrUYIiCTKxLMIpRU7MPLRkZNDcZWLkFGAp ICAgICAgICAgICAgICAgICAgICAgICAgICAgICAgICAgICAgICAgICAgICAgICAgICAgICAgICAgICAg UWRtYRNbBUBlCCIoQWQcMPMzSQYjHMVcKGRzYZ3LVY46uUNwn6D6RWZdFQ5chrt/Hk6IKUxtfsFnhCNu NM5ZDaTxZC2yzv0HQsWhGR6wxq3BSAqLQxAnW5P7aU XfBRZvUMJMBkJlT84gGXyxCl78MGzzWRMuZuReVQd7Xn3IXdGqX6xkHFJhTcO3SQAiMkP1TXFiWnG1EM GdZfKxWRDnULNuUX6VOVHaE820nlPcNX5ATr9SYjFqAQ9tuu6HCqhnOPQqIuaQDgj9GEghQE5FlFAnyT VuYTZhUNCIWvQjI9nvq5KzMlluEUGFGJbpIZ8Um2Fn dCAxDQo+My8QRA1hh3NiSHwoZKHdQZ8zxf9VZMzCJcUgT0CdzLnjQIGwuvO2zMOtTNH3DDFliK0xqYKz ZQZRdBThGYABVFGJFLG2WJAqDK0vJYXfDBYwQqO5OPFVJU9JXUTuZCWyaUQhXXVhDCJSNE3ZGEnmITJ0 GKQdhtVuzELfJAklGI5GRVKmtkScLeanHSXHQXf+Pg 1QXS6mm3DuHGpaVRTvUZ9upr9CKLbKHbMpO2K1iVYoJ0Q9GStzKj5LYDIsNBIpJvJeIRPJVEcdSB0NVY 7babM6BI1AvXMxANQmDWZjfIZtOKx5G64xiGSiPTogFY9ELAC+Claudia+Yb3XDZCyAYMtZQVbLlUzDBIFDl RqE6WkK7QEe8XnT1HlTH56gSefjiVcAEkiME1GUU1h VSTiNPOZZG1BlNUmhX5iznXfVBTjNLJWVvFhO40zyZVpGOYwTMN0WUBsCw0KQJIfE9AnqrLyjXtopzLu YWTiVNBDUZ6RUYetxpCtkXXgmPzkCT50eJyjHV6JKw8YQsAuBU1enn5FqQHnGs1FFHJqKD3EUEFiWCEp IFYjURA3KDYbAzOzKUalYKUwDCMmPMJ0TIIwNUHoJY 8MMmUfLWYiQqU9LBpbCICbTAEhja3OHXMfGGOmMeF4RrApLORwPQTfXTlwQNAlNOFgCUS2GHKxOKFaLI 5PCqXwEREoNQL8XzkqDKXvVJDdvl4HBODyVGDjEyytQwFdDBGdRYVfUDsnFRFzIEO0FIIwKPJqJAEhBY 1GWoJuTPUnFGfrDhJyFBEzRGZwzl1QNFMuUIIsXMp2 BDVxFBAxBDJkDDuqFFRkAKKxTSU1MSWpVSRdUF0SCaIsEKJbPIZfNMwiUJNsQTKgnp7ZTFCaZAJsUUGi DjVxKCAsFLIuYXswEKDcESU4SOAgLUJnOUHoEI9AFyNaRVLoKGD0BsCxCLZuDUDjpt4QNTHqPYCjWLc7 TnAkGJQbXFIlOQvcHXCvYSS2RZWjBCCmMLFaLN0GRx TxOHLcKAyjIQZtOPRoSCUury0AYMUdHLVtUiW4CyBqJEScDMEnNEpbXUOmJWO1WHx1MRJcMCLsFD5AWm SgRPNjWli3QKFtPRNnOSAyrv1SYKYsVPAgBYSxBIEsTEBtTYKhIUapVNIgPIP4FgWpOXBpYXInYT2NRq MaWMUtAmi7TEzsCOPdWUQrnz9JEXLeICJyQZZqDHFr ZWCqSBSnXAlfDXDuZHJdQqG4MFAdESLfUN2HFxRsRRMjAbB6ALBsYCAfKAIclq0FPQVkBBAjAGGuIdOe BEOtAQEcXFpmVVDePZSjQxukTTBkOKTaQE4ZTnDrROQnBxY2PZLlSERxVQJzha6EVKHdKARiGjm9RSNe CMVyIQRlIBj3gqOsuYNzNBb3AO6FB3MrzpZqVjSBRr 6Ru974UNQvWOBvUw0PU5evRc5sLPMfZBSSAa2TXDz8CbW9MHH3GsWyMCdiTDPmLrwyMOLkM8R5HPKpZ2 MxMjg+GQckXur2SSgxSDEqOFB2QBBaNQFhFxHhUdDlEZVyJzCqBQ4hHXNSQb6+DQpzdGFydHhyZWYNCj StEGX7ISjjDGEMCh3Y ID Date Data Source [id number] 04/12/2020 10:05:00 AM EST [facility] [address] [place] [address] PHONE: [phone] FAX: [phone] Name .................. : KYLE DELONTE M Acct Number.................. : [id number] ROOM. ................. : [place]- Number ................... : [id number] Stay type ............. : E/R Discharge Date......... ... : 04/09/20 Admit Date ......... : 04/09/20 Admit Phys .................... : [facility] Date of ....... : 1985 Family Phys ................... : ALEX KEANE Phone .................. : [phone] Age ................................ : 34 Film# .................. .:[id number] Sex ................................. : M Unsigned transcriptions are preliminary reports and do not represent a medical or legal document CHEST PORTABLE [id number] COMPLETE:04/09/20 19:10 MADHAV 5645 Reason(s): stroke PORTABLE [...] rce(s) Supporting Document(s) ID Date Data Source [id number] 04/12/2020 10:05:00 AM EST [facility] [address] [place] [address] PHONE: [phone] FAX: [phone] Name .................. : KYLE Meyer Acct Number.................. : [id number] ROOM. ................. : VT-01 MR Number ................... : [id number] Stay type ............. : E/R Discharge Date......... ... : 04/09/20 Admit Date ......... : 04/09/20 Admit Phys .................... : [facility] Date of ....... : 1985 Family Phys ................... : ALEX KEANE Phone .................. : [phone] Age ................................ : 34 Film# .................. .:[id number] Sex ................................. : Betsy Unsigned transcriptions are preliminary reports and do not represent a medical or legal document CT HEAD(STROKE PROTOCOL) W/O [id number] COMPLETE:04/09/20 15:38 RLB 5646 Reason(s): left sided [...] imperative reconstructive techniques. Page 1 of 2 [place] [address] PHONE: [phone] FAX: [phone] Name .................. : ZAMORANO DELONTE M Acct Number.................. : [id number] ROOM. ................. : VT-01 MR Number ................... : [id number] Stay type ............. : E/R Discharge Date......... ... : 04/09/20 Admit Date ......... : 04/09/20 Admit Phys .................... : MARIANACLAYKANDY Date of ....... : 1985 Family Phys ................... : ALEX KEANE Phone .................. : [phone] Age ................................ : 34 Film# .................. .:[id number] Sex ................................. : M Unsigned transcriptions are preliminary reports and do not represent a medical or legal document CT HEAD(STROKE PRO TOCOL) W/O [id number] COMPLETE:04/09/20 15:38 RLB 5646 Reason(s): left sided weakness and numbness CT dose: 864.3 mGycm Electronically Reviewed and Signed By Yusuf Love MD , 04/12/20 10:05, PERFECTO Transcribe Initials: MELANIE , Transcribe Date: 04/10/20 05:49, Dictation Date: Copy for: 710 MED REC DISCHARGED Page 2 of 2 Name Value Range Interpretation Code Description Data Adriana rce(s) Supporting Document(s) ID Date Data Source [id number] 04/12/2020 10:04:00 AM EST [facility] [address] [place] [address] PHONE: [phone] FAX: [phone] Name .................. : KYLE Meyer Acct Number.................. : [id number] ROOM. ................. : VT-01 MR Number ................... : [id number] Stay type ............. : E/R Discharge Date......... ... : 04/09/20 Admit Date ......... : 04/09/20 Admit Phys .................... : CHANLIECCO Date of ....... : 1985 Family Phys ................... : JOHNSON DIYA Phone .................. : [phone] Age ................................ : 34 Film# .................. .:[id number] Sex ................................. : M Unsigned transcriptions are preliminary reports and do not represent a medical or legal document MRI BRAIN W/O CONTRAST [id number] COMPLETE:04/09/20 15:16 [facility] [...] 23:48, Dictation Date: Page 1 of 2 [facility] [address] [place] [address] PHONE: [phone] FAX: [phone] Name .................. : KYLE Meyer Acct Number.................. : [id number] ROOM. ................. : VT-01 MR Number ................... : [id number] Stay type ............. : E/R Discharge Date......... ... : 04/09/20 Admit Date ......... : 04/09/20 Admit Phys .................... : ALICIA Date of ....... : 1985 Family Phys ................... : ALEX KEANE Phone .................. : [phone] Age ................................ : 34 Film# .................. .:[id number] Sex ................................. : M Unsigned transcriptions are preliminary reports and do not represent a medical or legal document MRI BRAIN W/O CONTRAST [id number] COMPLETE:04/09/20 15:16 [facility] 5650 Reason(s): left sided weakness. possible stroke Copy for: 710 MED REC DISCHARGED Page 2 of 2 Name Value Range Interpretation Code Description Data Adriana rce(s) Supporting Document(s) ID Date Data Source [id number] 04/12/2020 06:13:49 AM EST [facility] Name Value Range Interpretation Code Description Data Adriana rce(s) Supporting Document(s) Leukocytes [#/volume] in Blood by Automated count 19.6 10*3/uL 4-10 [facility] Erythrocytes [#/volume] in Blood by Automated count 4.76 10*6/uL 4.6- 6.1 [facility] Hemoglobin [Mass/volume] in Blood 14.6 g/dL 13.5-18 [facility] Hematocrit [Volume Fraction] of Blood by Automated count 42.4 % 4 1-53 [facility] Erythrocyte mean corpuscular volume [Entitic volume] by Auto mated count 89.1 fL 80-96 [facility] Erythrocyte mean corpuscular hemoglobin [Entitic mass] by Automated count 30.7 pg 27-33 [facility] Erythrocyte mean corpuscular hemoglobin concentration [Mass/volume] by Automated count 34.5 g/dL 32.0-[facility] E[facility]throcyte distribution width [Ratio] by Automated count 14.1 % 11.5-14.5 [facility] Platelets [#/volume] in Blood by Automated count 399 10*3/uL 150-400 [facility] Differential cell count method - Blood [facility] Neutrophils/100 leukocytes in Blood by Automated count 84 % [facility] Lymphocytes/100 leukocytes in Blood by Automated count 9 % [facility] Monocytes/100 leukocytes in Blood by Automated count 6 % [facility] Eosinophils/100 leukocytes in Blood by Automated count 0 % [facility] Basophils/100 leukocytes in Blood by Automated count 1 % [facility] Neutrophils [#/volume] in Blood by Automated count 16.56 10*3/uL 1.8- 7.0 [facility] Lymphocytes [#/volume] in Blood by Automated count 1.76 10*3/uL 1.2-4 .0 [facility] Monocytes [#/volume] in Blood by Automated count 1.15 10*3/uL 0-0.8 [facility] Eosinophils [#/volume] in Blood by Automated count 0.04 10*3/uL 0-0.5 [facility] Basophils [#/volume] in Blood by Automated count 0.13 10*3/uL 0-0.2 [facility] Nucleated erythrocytes/100 leukocytes [Ratio] in Blood by Automated count 0 /100{WBCs} 0-0 [facility] ID Date Data Source [id number] 04/12/2020 10:03:53 AM [facility] Name Value Range Interpretation Code Description Data Adriana rce(s) Supporting Document(s) Bicarbonate [Moles/volume] in Serum 23 mmol/L 22-29 [facility] Chloride [Moles/volume] in Serum or Plasma 102 mmol/L 98-107 [facility] Creatinine [Mass/volume] in Serum or Plasma 0.87 mg/dL 0.70-1.20 [facility] Glucose [Mass/volume] in Serum or Plasma 140 mg/dL 70-140 [facility] Potassium [Moles/volume] in Serum or Plasma 4.8 mmol/L 3.4-5.1 [facility] Sodium [Moles/volume] in Serum or Plasma 136 mmol/L 136-145 [facility] Urea nitrogen [Mass/volume] in Serum or Plasma 16 mg/dL 6-20 [facility] Confirmed Anion gap 3 in Serum or Plasma 12 mmol/L 8-15 [facility] Osmolality of Serum or Plasma by calculation 285 mosm/kg 275-300 [facility] Confirmed Creatinine/Urea nitrogen [Mass Ratio] in Serum or Plasma 19 [facility] Confirmed Calcium [Mass/volume] in Serum or Plasma 9.4 mg/dL 8.6-10.0 [facility] Glomerular filtration rate/1.73 sq M pre dicted among non-blacks [Volume Rate/Area] in Serum or Plasma by Creatinine-based formula (MDRD) >6 0 [facility] Glomerular filtration rate/1.73 sq M pre dicted among blacks [Volume Rate/Area] in Serum or Plasma by Creatinine-based formula (MDRD) >60 [facility] ID Date Data Source [id number] 04/11/2020 01:44:57 PM [facility] MR CERVICAL SPINE WITH AND WITHOUT CONTR AST [id number] RESULT - FINALInterpreted by:Lele Menchaca MDAddendum BeginsSigned on SunApr 11, 2020 1:42 PM by Jose Maharaj MDAddended Findings were discussed with Dr. Hernandez by Dr. Maharaj via phone at 04/11/2020 1:42 PM.Addendum EndsMR CERVICAL SPINE WITH AND WITHOUT CONTRAST [id number] INDICATION: Evaluate for enhancing lesions, concern for [...] rce(s) Supporting Document(s) ID Date Data Source [id number] 04/11/2020 09:10:58 AM [facility] MR BRAIN WITH AND WITHOUT CONTRAST [id number] FINAL RESULTInterpreted by:Lele Menchaca MDClinical Indication: Evaluate [...] rce(s) Supporting Document(s) ID Date Data Source [id number] 04/10/2020 08:49:17 PM [facility] Name Value Range Interpretation Code Description Data Adriana rce(s) Supporting Document(s) History and Physical [facility] XYJXSq3zKrSSMfQo20/IXTixOSIxn1NvTWcnOOa7LEccMFCkZ6RoNCM8kZ4uEPP3NFfXMqImQcZoOwI1 lbm [file] c7F0PKxvTE8s/pGCz3RMYmJGcZg8FPe7GQcx4u3n256P63h951JtRnY/Outbound Sales Specialist++P8TKP7OPBo1RtAZ+xvug [file] AgICAgICAgICAgICAgICAgICAgICAgICAgICAgICAg ICAgICAgICAgICAgICAgICAgICAgICAgICAgICAgICAgICAgICANCiAgICAgICAgICAgICAgICAgICAg ICAgICAgICAgICAgICAgICAgICAgICAgICAgICAgICAgICAgICAgICAgICAgICAgICAgICAgICAgICAg ICAgICAgICAgICAgICAgICAgICANCiAgICAgICAgIC AgICAgICAgICAgICAgICAgICAgICAgICAgICAgICAgICAgICAgICAgICAgICAgICAgICAgICAgICAgIC AgICAgICAgICAgICAgICAgICAgICAgICAgICAgICANCiAgICAgICAgICAgICAgICAgICAgICAgICAgIC AgICAgICAgICAgICAgICAgICAgICAgICAgICAgICAg ICAgICAgICAgICAgICAgICAgICAgICAgICAgICAgICAgICAgICAgICANCiAgICAgICAgICAgICAgICAg ICAgICAgICAgICAgICAgICAgICAgICAgICAgICAgICAgICAgICAgICAgICAgICAgICAgICAgICAgICAg ICAgICAgICAgICAgICAgICAgICAgICANCiAgICAgIC AgICAgICAgICAgICAgICAgICAgICAgICAgICAgICAgICAgICAgICAgICAgICAgICAgICAgICAgICAgIC AgICAgICAgICAgICAgICAgICAgICAgICAgICAgICAgICANCiAgICAgICAgICAgICAgICAgICAgICAgIC AgICAgICAgICAgICAgICAgICAgICAgICAgICAgICAg ICAgICAgICAgICAgICAgICAgICAgICAgICAgICAgICAgICAgICAgICAgICANCiAgICAgICAgICAgICAg ICAgICAgICAgICAgICAgICAgICAgICAgICAgICAgICAgICAgICAgICAgICAgICAgICAgICAgICAgICAg ICAgICAgICAgICAgICAgICAgICAgICAgICANCiAgIC AgICAgICAgICAgICAgICAgICAgICAgICAgICAgICAgICAgICAgICAgICAgICAgICAgICAgICAgICAgIC AgICAgICAgICAgICAgICAgICAgICAgICAgICAgICAgICAgICANCiAgICAgICAgICAgICAgICAgICAgIC AgICAgICAgICAgICAgICAgICAgICAgICAgICAgICAg ICAgICAgICAgICAgICAgICAgICAgICAgICAgICAgICAgICAgICAgICAgICAgICANCjw/zDEkW8cfpAVb uvX2O0bkOk8AUc2JRY1kx3OcQRVrENxqwyMzJajPIoCgUJLnFykXRbp3KAdqAQ3IiZSlD4TkU3NkEZqk YX5TREJiDDErmIJeCOIwYYStWzZ8OLHcIEvyOB3ZeS NlJRiuANGzYYUlZmXeZBJwDQNyHKPWVEYgFRLnIjZbCETpPIBcZKMpIKJPMYU8OWLmDyUsGJhfNP4Kc8 WggSW0XPf+Rf7YEN5tr4XxXLneIBOmRI0pbp2HNJtELzZmR6FhojN0XUV6EJDtYn3QHRPxFQGsfZGeNK LnUVLTLaIuI7QsyX56OXXXJx1+DQplbmRvYmoNCjM5 LZJrl4XsRUt9OU0OJICsZDa5dIFcZBDYLIU6XNQtfxmciTRUxc5cIFNEJKFrmBRjBhUoKpAkXRCpMowo OKQAAVxQJsDzE8Rja9NiVyN4UPWrBgOvYOxcKJHsJpD1LZ39qMkwGE5YUMZrOVYhSX50KDR5ICYyRo2Y Jd9TNrHvWA9eff9QMCSnXE6poj3UQUsMRrAcO6Y2aH YjU6Lido47SP3GsZR9fORnQD1JoI3eKV2Wd0CnXQYmOpTnQJKsVQQwRUOrMXMsOhWtDG6BLZPzMkCzvW FrQPL4FNToJRJhGMNvMbZ2EQDIBeHcH0PjTFouYpWfMDEXAN5NHlxoZMUxM6XHSXbFQY0MO4wGI9NYUw 3FPT0NNHGJQ2vFI2pYD4uPUHzoFF8RLVBxZJ5+IA0K Xn9JDbOlQQ5pip3XJEIsWYQlDslHRnb4USojUZ9OfZVsE3NdlAJkn5gWMaDdE6JNVBV6VTWjYm0VXSJp EpMnZMKrXGxbOI4aVQItDZLJuQorgxB3XA1UTK8dpuUuTZ2UZmXbAq2sXo6LXsWjK0VxY4GyWHEbFLTE KPfnMJ3GRWgvUV3eKU5Ga6FMgWIedL4zst7XDZOxVP FbCgmubx6AKxhcJ7L2nJosHQHuIuahNEVWPEgzMQ6CZZSkLZG7RVXhSpVlRVCPBcLvA01pEF3CT1Rwo7 7aPxF4NNYiJfDpZClfGW32gFqenlBruFBoyOslHI0XFf9+DQplbmRvYmoNCnhyZWYNCjAgNDENCjAwMD DpLGMvNAMwKrL9CiJfTq7OGUDnSSKgPGJjMeLiFPJj CMBxLFyiYIJrQLB6DhB4ZISkQHWeQV1JRgJsDBJbELw2OUPkOVCnAINhky6MCTZtWSNmDDO9KhJhYTKd CELfUHtjSXKdXZBaSoP5PZGuOSVqFW7AVjHeMGYkXDF5LPdmMHCjMUFxmz8AZKTpGQNrZxFlJjRxMQYq RMYeONqmDATpRCT0PSK5JEVeTFPyGU9WKmFgAJDeRM vsDMJpWCTuEDJpbz3IVQCqCCBxPRt6ACEoFVDxRZUrBZnbOVDcPGDsPVk8ZCJsPSUfFQ8ORdPhSXGyMJ G9TIufPZCrIIAlkg9KDEFrWIEiYEwiWvCxWCVpZDAnCOhkZTVzGSV1GFQpFABvWGHtFS9THvOeUHTdXN b9BOgxLHQnOOIjgn6KMBIrRWRtQjY3ZHUsDYMtCKVv OOpyILNeTUNcFaN3CUEfNZUwIP4SPwUyEVTpFlKaFXFyNFSiHLEsld9WDPRpSRZyKcCnYbBzABNhGOVr NSwvTRJyXAW3XMBgWGPmGFMbZL2SSoGaCRZuZyV5JMqhJXHpCDLqph8WIRCdGCWiLYm9JoIxBVGrITYw XRhlBKKoZRC9YUOuADVaBKPiLE8YCgEoJGLyTnHxMD NaGQBjUEDnen5SNEUfHCQwNtG2GKNfDNJbXIRkYUatYGNeUWT7IPItKMNnAUFaMF5YRxIwZKEkHrnpZY OxGQMxFFSccn0KVNKxBHAdPoA0PXUeHHYcQTDcJLbjSFZnZOU5XPSrSKSzCIHeES8RWlQdLKBuGvl9RX ydAQRwTCKsms8YZZVuZQUuYHt4VSHeSSAmWBZwQPjj TMSrHXI6KNZzSWBmOILnQS7XFaMmSSLdFRU3SBIlONFcXFYwto6PBSNqCTC0CqA6JFOhXUEbDFJrUWsg LBDgUTC2FVTvGOAkZYRbCT4PWbItSMOyMWv7DDxpULOuYHMrhr9OMBHiRMH4RWV5QGPdQAIyLCEoLIup POAmESO9NfR8ZMMbHOIlIP5QQvUtYZLqXWr8NHJzZO LsHXNpai1NRZLnZLB7PSMtIlHmDFCoRHChRUo0stMigSIzKOd7BU1IZ5UnzxVnGFDPFf8Tc386VNAyTD EuYv0PY3eaRv2kHUGzSDORZn8RXTk7IVIyZlJ9RNZ7XJS7IAU4GzN2IeqeFqT3UCX7IgY6HUc+IDw1YW H2BUT8Xlu3ZijiGMVvWik4DLX2HhY0DORiWHL6MA9i XSANCj4+HRsmgMVxaJwaLCBNQpXnJrDiBUpbCNXMQn8K ID Date Data Source [id number] 04/10/2020 09:02:47 PM EST [facility] Name Value Range Interpretation Code Description Data Adriana rce(s) Supporting Document(s) HIV 1+2 Ab+HIV1 p24 Ag [Presence] in Serum or Plasma by Immu noassay Non Reactive [facility] Negative for HIV-1 p24 antigenand HIV-1/ HIV-2 antibodies. Nolaboratory evidence of HIVinfection. ID Date Data Source [id number] 04/10/2020 09:09:50 PM [facility] Value Range Interpretation Code Description Data Adriana rce(s) Supporting Document(s) Hepatitis A virus IgM Ab [Presence] in Serum or Plasma by Im munoassay Non Reactive [facility] No acute infection, susceptible to infec tion. Hepatitis B virus core IgM Ab [Presence] in Serum or Plasma by Immunoassay Non Reactive [facility] IgM antibodies to HBc were not detected, does not exclude the possibility of exposure to HBV. Hepatitis C virus Ab [Presence] in Serum or Plasma by Immuno assay Non Reactive [facility] No serological evidence of active infect ion. If recent exposure is suspected, test for HCV RNA. Hepatitis B virus surface Ag [Presence] in Serum or Plasma b y Immunoassay Non Reactive [facility] No active or previous infection. Suscept ible to infection. ID Date Data Source [id number] 04/10/2020 09:09:50 PM [facility] Value Range Interpretation Code Description Data Adriana rce(s) Supporting Document(s) Treponema pallidum Ab [Presence] in Serum Non Reactive [facility] ID Date Data Source [id number] 04/10/2020 09:09:50 PM [facility] Value Range Interpretation Code Description Data Adriana rce(s) Supporting Document(s) Folate [Mass/volume] in Serum or Plasma 5.97 ng/mL >4.77 [facility] ID Date Data Source [id number] 04/10/2020 09:09:50 PM [facility] Value Range Interpretation Code Description Data Adriana rce(s) Supporting Document(s) Calcidiol [Mass/volume] in Serum or Plasma 16 ng/mL >30 L [facility] ID Date Data Source [id number] 04/10/2020 09:36:16 PM [facility] Value Range Interpretation Code Description Data Adriana rce(s) Supporting Document(s) Borrelia burgdorferi IgG Ab [Presence] in Serum by Immunoassay Negative [facility] Borrelia burgdorferi IgM Ab [Presence] in Serum by Immunoassay Negative [facility] ID Date Data Source [id number] 04/10/2020 10:43:17 PM [facility] Value Range Interpretation Code Description Data Adriana rce(s) Supporting Document(s) Hepatitis B virus surface Ab [Units/volume] in Serum or Plas ma by Immunoassay >11.4 [facility] ReactiveImmunity due to hepatitis B immu nization or natural infection. ID Date Data Source [id number] 04/12/2020 09:27:43 AM [facility] Value Range Interpretation Code Description Data Adriana rce(s) Supporting Document(s) Oszy-6-Tdopoohcffbj IgA <20 [facility] ID Date Data Source [id number] 04/12/2020 09:27:43 AM [facility] Value Range Interpretation Code Description Data Adriana rce(s) Supporting Document(s) Anticardiolipin IgA 3.2 CU <20 [facility] Negative ID Date Data Source [id number] 04/12/2020 12:40:18 PM [facility] Value Range Interpretation Code Description Data Adriana rce(s) Supporting Document(s) Neutrophil cytoplasmic Ab [Presence] in Serum by Immunofluoresce nce Negative [facility] ID Date Data Source [id number] 04/12/2020 01:09:29 PM [facility] Value Range Interpretation Code Description Data Adriana rce(s) Supporting Document(s) Nuclear Ab Pattern Homogenous [Titer] in Serum <80 [facility] Nuclear Ab pattern.speckled [Titer] in Serum 80 1/dil <80 H [facility] Nuclear Ab pattern.rim [Titer] in Serum <80 [facility] Nuclear Ab pattern.nucleolar [Titer] in Serum <80 [facility] ID Date Data Source [id number] 04/12/2020 01:20:06 PM [facility] Value Range Interpretation Code Description Data Adriana rce(s) Supporting Document(s) Sjogrens syndrome-A extractable nuclear Ab [Units/volume] in Serum by Immunofluorescence 13 [AU]/mL 0-[address] [place] [address] Sjogrens syndrome-B extractable nuclear Ab [Units/volume] in Serum by Immunofluorescence 8 [AU]/mL 0-[address] [place] [address] Field extractable nuclear Ab [Units/volume] in Serum b y Immunofluorescence 11 [AU]/mL [address] [place] [address] Ribonucleoprotein extractable nuclear Ab [Units/volume] in Serum by Immunofluorescence 17 U/ML [address] SCL-70 extractable nuclear Ab [Units/volume] in Serum 9 [AU]/mL [address] Haley-1 extractable nuclear Ab [Units/volume] in Serum by Immunofluorescence 25 [AU]/mL [address] [place] [address] DNA double strand Ab [Units/volume] in Serum by Immunofluore scence 0 [IU]/mL [address] [place] [address] Centromere Ab [Units/volume] in Serum 13 [AU]/mL [address] [place] [address] Histone IgG Ab [Units/volume] in Serum 12 [AU]/mL [address] [place] [address] ID Date Data Source [id number] 04/12/2020 02:44:51 PM [facility] Value Range Interpretation Code Description Data Adriana rce(s) Supporting Document(s) Protein [Mass/volume] in Serum or Plasma 7.2 g/dL 6.4-8.3 [facility] Albumin [Mass/volume] in Serum or Plasma by Electrophoresis 4.98 g/dL 3.80-5.78 [facility] Alpha 1 globulin [Mass/volume] in Serum or Plasma by Electro phoresis 0.15 g/dL 0.08-0.23 [facility] Alpha 2 globulin [Mass/volume] in Serum or Plasma by Electro phoresis 0.61 g/dL 0.45-0.92 [facility] Beta globulin [Mass/volume] in Serum or Plasma by Electropho resis 0.73 g/dL 0.50-1.03 [facility] Gamma globulin [Mass/volume] in Serum or Plasma by Electroph oresis 0.72 g/dL 0.54-1.30 [facility] Protein.monoclonal [Mass/volume] in Serum or Plasma by Electrophoresi s 0 [facility] Normally migrating gamma globulins Pathologist name [facility] ID Date Data Source [id number] 04/13/2020 11:18:24 AM [facility] Value Range Interpretation Code Description Data Adriana rce(s) Supporting Document(s) Varicella zoster virus IgG Ab [Presence] in Serum by Immunoassay 4. 32 {ISR} [facility] PositiveIndicates presence of detectable IgGantibody to Varicella-Zoster Virus bythe JORDY test. Indicative of current orprevious infection. ID Date Data Source [id number] 04/13/2020 12:35:52 PM [facility] Value Range Interpretation Code Description Data Adriana rce(s) Supporting Document(s) Cardiolipin IgG Ab [Interpretation] in Serum 10.2 U/mL <20.0 [facility] Negative results do not rule out Antipho spholipid syndrome. Additional APL testing should be considered. ID Date Data Source [id number] 04/13/2020 12:35:52 PM [facility] Value Range Interpretation Code Description Data Adriana rce(s) Supporting Document(s) Cardiolipin IgM Ab [Interpretation] in Serum 1.0 U/mL <20.0 [facility] Negative results do not rule out Antipho spholipid syndrome. Additional APL testing should be considered. ID Date Data Source [id number] 04/13/2020 02:09:08 PM [facility] Value Range Interpretation Code Description Data Adriana rce(s) Supporting Document(s) Angiotensin converting enzyme [Enzymatic activity/volu me] in Serum or Plasma 15 U/L 14-82 [facility] (NOTE)Performed At: [facility] [address] [id number] Morejon MD Ph:[phone] ID Date Data Source [id number] 04/16/2020 10:41:34 AM [facility] Value Range Interpretation Code Description Data Adriana rce(s) Supporting Document(s) Aquaporin 4 receptor IgG Ab [Presence] in Serum or Plasma Negative [facility] (NOTE)Recommend repeat testing in 6 [facility] if clinical suspicion is high. Negative result can occur in the setting of immunosuppression. ADDITIONAL INFORMATION This test was developed and its performance characteristics determined by [facility] in a manner consistent with CLIA requirements. This test has not been cleared or approved by the U.S. Food and Drug Administration.Test Performed by:[address] [id number] Director: Jerry Morse M.D. Ph.D.; CLIA# [id number] ID Date Data Source [id number] 04/17/2020 07:05:55 PM [facility] Value Range Interpretation Code Description Data Adriana rce(s) Supporting Document(s) Methylmalonate [Moles/volume] in Serum or Plasma 173 nmol/L 0-378 [facility] Disclaimer [facility] (NOTE)This test was developed and its pe rformance characteristicsdetermined by [facility]. It has not been cleared or approvedby the Food and Drug Administration.Performed At: [facility] [place], [place] [id number] Martin MD Ph:[phone] ID Date Data Source [id number] 04/21/2020 02:08:19 PM EDT [facility] Name Value Range Interpretation Code Description Data Adriana rce(s) Supporting Document(s) Index Value 3.39 [facility] HERB virus Ab [Presence] in Serum or Plasma by Immunoassay A [facility] (NOTE)Index interpretive criteria: <0.20 negative 0.20-0.40 indeterminate >0.40 positiveTesting not performedComment(NOTE)Positive: Antibodies to HERB virus (JCV) detected indicating the patient has been exposed to JCV at an undetermined timeNegative: Antibodies to JCV not detectedPerformed At: [facility] [id number] [place], [place] [id number] Jon M MD Ph:[phone] At: [facility] [id number] Morejon MD Ph:[phone](NOTE)Negative: Antibodies to JCV not detected.Inde terminate: Low [...] US Prescribing Information. ID Date Data Source [id number] 04/10/2020 06:38:36 PM [facility] Value Range Interpretation Code Description Data Adriana rce(s) Supporting Document(s) Homocysteine [Moles/volume] in Serum or Plasma 58.1 umol/L <15.0 H [facility] HemolyzedConfirmed ID Date Data Source [id number] 04/10/2020 09:06:17 PM [facility] Value Range Interpretation Code Description Data Adriana rce(s) Supporting Document(s) C reactive protein [Mass/volume] in Serum or Plasma <8.0 [facility] ID Date Data Source [id number] 04/10/2020 09:06:17 PM [facility] Value Range Interpretation Code Description Data Adriana rce(s) Supporting Document(s) Cobalamin (Vitamin B12) [Mass/volume] in Serum or Plasma 353 pg/ml 2 11-946 [facility] ID Date Data Source [id number] 04/10/2020 09:06:17 PM [facility] Value Range Interpretation Code Description Data Adriana rce(s) Supporting Document(s) IgG [Mass/volume] in Serum or Plasma 1079 mg/dL 700-1600 [facility] IgA [Mass/volume] in Serum or Plasma 266 mg/dL 70-400 [facility] IgM [Mass/volume] in Serum or Plasma 108 mg/dL 30-230 [facility] ID Date Data Source [id number] 04/10/2020 09:06:17 PM [facility] Value Range Interpretation Code Description Data Adriana rce(s) Supporting Document(s) Albumin [Mass/volume] in Serum or Plasma by Bromocresol green (BCG) dye binding method 5.0 g/dL 3.5-5.2 [facility] Bilirubin.total [Mass/volume] in Serum or Plasma 0.7 mg/dL <1.2 [facility] Bilirubin.direct [Mass/volume] in Serum or Plasma <0.3 [facility] Alkaline phosphatase [Enzymatic activity/volume] in Serum or Plasma 83 U/L 40-129 [facility] Aspartate aminotransferase [Enzymatic activity/volume] in Serum or Plasma 13 U/L <40 [facility] Alanine aminotransferase [Enzymatic activity/volume] in Seru m or Plasma 23 U/L <41 [facility] Protein [Mass/volume] in Serum or Plasma 7.7 g/dL 6.4-8.3 [facility] ID Date Data Source [id number] 04/12/2020 12:28:03 PM [facility] Name Value Range Interpretation Code Description Data Adriana rce(s) Supporting Document(s) Lupus anticoagulant neutralization plate let [Time] in Platelet poor plasma by Coagulation assay 7.7 sec <8.0 [facility] ID Date Data Source [id number] 04/10/2020 01:53:00 PM [facility] [address] [place] [address] RESPIRATORY CARE REPORT ==== ---------NAME------- NUMBER SEX AGE ADMIT DISC. XRAY# F/C TYPEMURPHY DELONTE M [id number] M [id number] 04/09/20 04/09/20 [id number] X6B E/R DATE OF : 1985 M/R# [id number] #: [phone] VT-01 LOCATION: [facility] [address] COMPLETE:04/09/20 1 5:44 42461 PHYSICIAN: ALICIA Name Value Range Interpretation Code Description Data Adriana rce(s) Supporting Document(s) ID Date Data Source [id number] 04/10/2020 08:45:00 AM [facility] Value Range Interpretation Code Description Data Adriana rce(s) Supporting Document(s) [facility] ospital [id number] [file] [id number] ID Date Data Source [id number] 04/10/2020 03:48:39 AM EST [facility] Name Value Range Interpretation Code Description Data Adriana rce(s) Supporting Document(s) Leukocytes [#/volume] in Blood by Automated count 6.9 10*3/uL 4-10 [facility] Erythrocytes [#/volume] in Blood by Automated count 4.51 10*6/uL 4.6- 6.1 L [facility] Hemoglobin [Mass/volume] in Blood 13.7 g/dL 13.5-18 [facility] Hematocrit [Volume Fraction] of Blood by Automated count 39.9 % 4 1-53 L [facility] Erythrocyte mean corpuscular volume [Entitic volume] by Auto mated count 88.4 fL 80-96 [facility] Erythrocyte mean corpuscular hemoglobin [Entitic mass] by Automated count 30.5 pg 27-33 [facility] Erythrocyte mean corpuscular hemoglobin concentration [Mass/volume] by Automated count 34.5 g/dL 32.0-36.0 [facility] Erythrocyte distribution width [Ratio] by Automated count 13.7 % 11.5-14.5 [facility] Platelets [#/volume] in Blood by Automated count 355 10*3/uL 150-400 [facility] Differential cell count method - Blood [facility] Neutrophils/100 leukocytes in Blood by Automated count 45 % [facility] Lymphocytes/100 leukocytes in Blood by Automated count 41 % [facility] Monocytes/100 leukocytes in Blood by Automated count 10 % [facility] Eosinophils/100 leukocytes in Blood by Automated count 4 % [facility] Basophils/100 leukocytes in Blood by Automated count 0 % [facility] Neutrophils [#/volume] in Blood by Automated count 3.08 10*3/uL 1.8-7 .0 [facility] Lymphocytes [#/volume] in Blood by Automated count 2.83 10*3/uL 1.2-4 .0 [facility] Monocytes [#/volume] in Blood by Automated count 0.68 10*3/uL 0-0.8 [facility] Eosinophils [#/volume] in Blood by Automated count 0.28 10*3/uL 0-0.5 [facility] Basophils [#/volume] in Blood by Automated count 0.01 10*3/uL 0-0.2 [facility] Nucleated erythrocytes/100 leukocytes [Ratio] in Blood by Automated count 0 /100{WBCs} 0-0 [facility] ID Date Data Source [id number] 04/10/2020 04:09:13 AM [facility] Name Value Range Interpretation Code Description Data Adriana rce(s) Supporting Document(s) Bicarbonate [Moles/volume] in Serum 23 mmol/L 22-29 [facility] Chloride [Moles/volume] in Serum or Plasma 105 mmol/L 98-107 [facility] Creatinine [Mass/volume] in Serum or Plasma 0.87 mg/dL 0.70-1.20 [facility] Glucose [Mass/volume] in Serum or Plasma 89 mg/dL 70-140 [facility] Potassium [Moles/volume] in Serum or Plasma 3.9 mmol/L 3.4-5.1 [facility] Sodium [Moles/volume] in Serum or Plasma 138 mmol/L 136-145 [facility] Urea nitrogen [Mass/volume] in Serum or Plasma 10 mg/dL 6-20 [facility] Anion gap 3 in Serum or Plasma 10 mmol/L 8-15 [facility] Osmolality of Serum or Plasma by calculation 285 mosm/kg 275-300 [facility] Creatinine/Urea nitrogen [Mass Ratio] in Serum or Plasma 11 [facility] Calcium [Mass/volume] in Serum or Plasma 8.7 mg/dL 8.6-10.0 [facility] Glomerular filtration rate/1.73 sq M pre dicted among non-blacks [Volume Rate/Area] in Serum or Plasma by Creatinine-based formula (MDRD) >6 0 [facility] Glomerular filtration rate/1.73 sq M pre dicted among blacks [Volume Rate/Area] in Serum or Plasma by Creatinine-based formula (MDRD) >60 [facility] ID Date Data Source [id number] 04/09/2020 07:48:25 PM [facility] Name Value Range Interpretation Code Description Data Adriana rce(s) Supporting Document(s) Glucose [Mass/volume] in Capillary blood by Glucometer 98 mg/dL 70- 140 [facility] ID Date Data Source [id number] 04/09/2020 08:12:00 PM EST [facility] Name Value Range Interpretation Code Description Data Adriana rce(s) Supporting Document(s) Leukocytes [#/volume] in Blood by Automated count 8.5 10*3/uL 4-10 [facility] Erythrocytes [#/volume] in Blood by Automated count 4.96 10*6/uL 4.6- 6.1 [facility] Hemoglobin [Mass/volume] in Blood 15.2 g/dL 13.5-18 [facility] Hematocrit [Volume Fraction] of Blood by Automated count 44.3 % 4 1-53 [facility] Erythrocyte mean corpuscular volume [Entitic volume] by Auto mated count 89.3 fL 80-96 [facility] Erythrocyte mean corpuscular hemoglobin [Entitic mass] by Automated count 30.7 pg 27-33 [facility] Erythrocyte mean corpuscular hemoglobin concentration [Mass/volume] by Automated count 34.3 g/dL 32.0-36.0 [facility] Erythrocyte distribution width [Ratio] by Automated count 14.2 % 11.5-14.5 [facility] Platelets [#/volume] in Blood by Automated count 398 10*3/uL 150-400 [facility] Differential cell count method - Blood [facility] Neutrophils/100 leukocytes in Blood by Automated count 52 % [facility] Lymphocytes/100 leukocytes in Blood by Automated count 37 % [facility] Monocytes/100 leukocytes in Blood by Automated count 8 % [facility] Eosinophils/100 leukocytes in Blood by Automated count 2 % [facility] Basophils/100 leukocytes in Blood by Automated count 1 % [facility] Neutrophils [#/volume] in Blood by Automated count 4.43 10*3/uL 1.8-7 .0 [facility] Lymphocytes [#/volume] in Blood by Automated count 3.14 10*3/uL 1.2-4 .0 [facility] Monocytes [#/volume] in Blood by Automated count 0.69 10*3/uL 0-0.8 [facility] Eosinophils [#/volume] in Blood by Automated count 0.17 10*3/uL 0-0.5 [facility] Basophils [#/volume] in Blood by Automated count 0.06 10*3/uL 0-0.2 [facility] Nucleated erythrocytes/100 leukocytes [Ratio] in Blood by Automated count 0 /100{WBCs} 0-0 [facility] ID Date Data Source [id number] 04/09/2020 08:26:36 PM [facility] Name Value Range Interpretation Code Description Data Ardiana rce(s) Supporting Document(s) Prothrombin time (PT) 13.3 s 12.5-14.9 [facility] INR in Platelet poor plasma by Coagulation assay 1.00 [facility] Routine intensity oral anticoagulation I NR is typically 2.0-3.0. Target INR must be clinically individualized. ID Date Data Source [id number] 04/09/2020 08:42:50 PM [facility] Name Value Range Interpretation Code Description Data Adriana rce(s) Supporting Document(s) Cholesterol [Mass/volume] in Serum or Plasma 169 mg/dL <200 [facility] Triglyceride [Mass/volume] in Serum or Plasma 157 mg/dL <150 H [facility] Cholesterol in HDL [Mass/volume] in Serum or Plasma 40 mg/dL >40 L [facility] Cholesterol in LDL [Mass/volume] in Serum or Plasma by calcu lation 98 mg/dL <100 [facility] Cholesterol in VLDL [Mass/volume] in Serum or Plasma by calc ulation 31 mg/dl 16-42 [facility] Cholesterol non HDL [Mass/volume] in Serum or Plasma 129 mg/dL <130 [facility] ID Date Data Source [id number] 04/09/2020 08:42:50 PM [facility] Value Range Interpretation Code Description Data Adriana rce(s) Supporting Document(s) Albumin [Mass/volume] in Serum or Plasma by Bromocresol green (BCG) dye binding method 4.5 g/dL 3.5-5.2 [facility] Bilirubin.total [Mass/volume] in Serum or Plasma 0.4 mg/dL <1.2 [facility] Calcium [Mass/volume] in Serum or Plasma 9.0 mg/dL 8.6-10.0 [facility] Chloride [Moles/volume] in Serum or Plasma 106 mmol/L 98-107 [facility] Creatinine [Mass/volume] in Serum or Plasma 0.87 mg/dL 0.70-1.20 [facility] Glucose [Mass/volume] in Serum or Plasma 89 mg/dL 70-140 [facility] Alkaline phosphatase [Enzymatic activity/volume] in Serum or Plasma 77 U/L 40-129 [facility] Potassium [Moles/volume] in Serum or Plasma 3.9 mmol/L 3.4-5.1 [facility] Protein [Mass/volume] in Serum or Plasma 7.0 g/dL 6.4-8.3 [facility] Sodium [Moles/volume] in Serum or Plasma 139 mmol/L 136-145 [facility] Aspartate aminotransferase [Enzymatic activity/volume] in Serum or Plasma 13 U/L <40 [facility] Urea nitrogen [Mass/volume] in Serum or Plasma 8 mg/dL 6-20 [facility] Osmolality of Serum or Plasma by calculation 286 mosm/kg 275-300 [facility] Creatinine/Urea nitrogen [Mass Ratio] in Serum or Plasma 9 [facility] Bicarbonate [Moles/volume] in Serum 22 mmol/L 22-29 [facility] Alanine aminotransferase [Enzymatic activity/volume] in Seru m or Plasma 22 U/L <41 [facility] Anion gap 3 in Serum or Plasma 11 mmol/L 8-15 [facility] Glomerular filtration rate/1.73 sq M pre dicted among non-blacks [Volume Rate/Area] in Serum or Plasma by Creatinine-based formula (MDRD) >6 0 [facility] Glomerular filtration rate/1.73 sq M pre dicted among blacks [Volume Rate/Area] in Serum or Plasma by Creatinine-based formula (MDRD) >60 [facility] ID Date Data Source [id number] 04/09/2020 08:42:50 PM [facility] Name Value Range Interpretation Code Description Data Adriana rce(s) Supporting Document(s) Thyrotropin [Units/volume] in Serum or Plasma 2.340 u[IU]/mL 0.270-4. 200 [facility] ID Date Data Source [id number] 04/09/2020 08:26:10 PM [facility] Name Value Range Interpretation Code Description Data Adriana rce(s) Supporting Document(s) Hemoglobin A1c/Hemoglobin.total in Blood by HPLC 5.6 % 4.0-6.0 [facility] (NOTE)<5.7% Average risk of diabetes (ADA)5.7-6.4% Increased risk of diabetes(ADA)>/= 6.5% Diagnostic for diabetes(ADA) Glucose mean value [Mass/volume] in Blood Estimated fr om glycated hemoglobin 114 mg/dL <126 [facility] ID Date Data Source [id number] 04/09/2020 02:47:00 PM EST [facility] NOT DETECTEDNOT DETECTED{ PROC EDURAL CONTROL VALID KIT LOT # _[id number] 04/09/207.DW . KIT EXP DATE _10-55-97 04/09/20.DW . NORMAL RANGE IS NOT DETECTEDNEGATIVE [...] rce(s) Supporting Document(s) ID Date Data Source [id number] 04/14/2020 06:06:00 PM EST [facility] [address] Name Value Range Interpretation Code Description Data Adriana rce(s) Supporting Document(s) Bacteria identified in Blood by Culture [facility] NO GROWTH AFTER 5 DAYS ID Date Data Source [id number] 04/14/2020 08:04:00 AM EST [facility] [address] Name Value Range Interpretation Code Description Data Adriana rce(s) Supporting Document(s) TRIMETHOPRIM/SULFAMETHOXAZOLE <0.5/9.5 Mejia sceptible. Indicates for microbiology susceptibilities only. [facility] Amoxicillin+Clavulanate [Susceptibility] by Minimum inhibitory concentration (CHRIS) <4/2 Susceptible. Indicates for microbiology s usceptibilities only. [facility] Ampicillin [Susceptibility] by Minimum inhibitory concentration (CHRIS) <2 Resistant. Indicates for microbiology susceptibilities only. [facility] Ampicillin+Sulbactam [Susceptibility] by Minimum inhib itory concentration (CHRIS) <8/4 Susceptible. Indicates for microbiology suscepti bilities only. [facility] Cefazolin [Susceptibility] by Minimum inhibitory concentration ( CHRIS) <4 Susceptible. Indicates for microbiology susceptibilities only. [facility] Ciprofloxacin [Susceptibility] by Minimum inhibitory concentrati on (CHRIS) <1 Susceptible. Indicates for microbiology susceptibilities only. [facility] Clindamycin [Susceptibility] by Minimum inhibitory concentration (CHRIS) >4 Resistant. Indicates for microbiology susceptibilities only. [facility] Erythromycin [Susceptibility] by Minimum inhibitory concentratio n (CHRIS) >4 Resistant. Indicates for microbiology susceptibilities only. [facility] Gentamicin [Susceptibility] by Minimum inhibitory concentration (CHRIS) <4 Susceptible. Indicates for microbiology susceptibilities only. [facility] Oxacillin [Susceptibility] by Minimum inhibitory concentration ( CHRIS) <0.25 Susceptible. Indicates for microbiology susceptibilities only. [facility] Penicillin [Susceptibility] by Minimum inhibitory concentration (CHRIS) >8 Resistant. Indicates for microbiology susceptibilities only. [facility] Tetracycline [Susceptibility] by Minimum inhibitory concentratio n (CHRIS) <4 Susceptible. Indicates for microbiology susceptibilities only. [facility] Vancomycin [Susceptibility] by Minimum inhibitory concentration (CHRIS) 1 Susceptible. Indicates for microbiology susceptibilities only. [facility] Levofloxacin [Susceptibility] by Minimum inhibitory concentratio n (CHRIS) <1 Susceptible. Indicates for microbiology susceptibilities only. [facility] Moxifloxacin [Susceptibility] by Minimum inhibitory concentratio n (CHRIS) <0.5 Susceptible. Indicates for microbiology susceptibilities only. [facility] ID Date Data Source [id number] 04/19/2020 09:32:00 AM EDT [facility] Name Value Range Interpretation Code Description Data Adriana rce(s) Supporting Document(s) CULTURE BLOOD [facility] spital _CULTURE BLOOD_ TEST PERFORM ED AT [address] [address] CLIA# [id number] SEE SCANNED REPORT{ PRELIM ID Date Data Source [id number] 04/09/2020 02:12:00 PM EST [facility] Name Value Range Interpretation Code Description Data Adriana rce(s) Supporting Document(s) COMPREHENSIVE METABOLIC PANEL [facility] COMPREHENSIVE METABOLIC PANEL Sodium [Moles/volume] in Serum or Plasma 133 mEq/L 134 - 153 L [facility] Potassium [Moles/volume] in Serum or Plasma 4.4 mEq/L 3.6 - 5.0 [facility] Chloride [Moles/volume] in Serum or Plasma 99 mEq/L 98 - 107 [facility] Carbon dioxide, total [Moles/volume] in Serum or Plasma 23 MEQ/L 22 - 30 [facility] Glucose [Mass/volume] in Serum or Plasma 89 MG/DL 70 - 99 [facility] BUN 10 MG/DL 7 - 21 [facility] Creatinine [Mass/volume] in Serum or Plasma 0.9 MG/DL 0.7 - 1.5 [facility] BUN/CREAT 11 8 - 27 [facility] Protein [Mass/volume] in Serum or Plasma 7.7 G/DL 6.3 - 8.2 [facility] Albumin [Mass/volume] in Serum or Plasma 5.0 G/DL 3.9 - 5.0 [facility] Globulin [Mass/volume] in Serum by calculation 2.7 GM/DL 2.4 - 3.2 [facility] A/G RATIO 1.9 0.8 - 2.0 [facility] Calcium [Mass/volume] in Serum or Plasma 9.8 MG/DL 8.4 - 10.2 [facility] Bilirubin.total [Mass/volume] in Serum or Plasma <0.7 MG/DL 0.2 - 1.3 [facility] Alkaline phosphatase [Enzymatic activity/volume] in Serum or Plasma 79 U/L 38 - 126 [facility] Aspartate aminotransferase [Enzymatic activity/volume] in Serum or Plasma 14 U/L 5 - 40 [facility] Alanine aminotransferase [Enzymatic activity/volume] in Seru m or Plasma 25 U/L 7 - 56 [facility] Anion gap 3 in Serum or Plasma 11.0 mmol/L 8.0 - 16.0 [facility] AGE 34 yrs [facility] al NON-AA GFR >60 mL/min [facility] ital AFR AMER GFR >60 mL/min [facility] Ho spital Male GFR In terprentation [...] >32 mL/min Normal ID Date Data Source [id number] 04/09/2020 02:05:00 PM [facility] Name Value Range Interpretation Code Description Data Adriana rce(s) Supporting Document(s) Magnesium [Mass/volume] in Serum or Plasma 2.1 MG/DL 1.7 - 2.2 [facility] ID Date Data Source [id number] 04/09/2020 01:42:00 PM [facility] Name Value Range Interpretation Code Description Data Adriana rce(s) Supporting Document(s) Prothrombin time (PT) 12.7 SECONDS 11.0 - 15.5 [facility] system INR in Platelet poor plasma by Coagulation assay 0.91 0.93 - 1. 23 L [facility] aPTT in Blood by Coagulation assay 28.5 SECONDS 24.8 - 36.7 [facility] \\BLDo\\INR INTERPRETATION\\BLDx\\ Therapeutic range for Coumadin and related oral anticoagulants. - International Normalized Ratio (INR): 2.0 - 3.0 for Venous Thrombosis, Pulmonary Embolus, Tissue heart valves, Acute MA Atrial Fibrillation, Valvular heart disease and recurrent Systemic Embolism. - International Normalized Ratio (INR): 2.5 - 3.5 for Mechanical Prosthetic valve. ID Date Data Source [id number] 04/09/2020 01:42:00 PM [facility] Name Value Range Interpretation Code Description Data Adriana rce(s) Supporting Document(s) Fibrinogen [Mass/volume] in Platelet poor plasma by Co agulation assay 285.0 mg/dL 179 - 506 [facility] ID Date Data Source [id number] 04/09/2020 12:59:00 PM [facility] Name Value Range Interpretation Code Description Data Adriana rce(s) Supporting Document(s) CBC W/AUTOMATED DIFF [facility] COMPLETE BLOOD COUNT Leukocytes [#/volume] in Blood by Automated count 8.9 10^3/uL 4.2 - 1 1.0 [facility] Erythrocytes [#/volume] in Blood by Automated count 5.30 10^6/uL 4. 50 - 6.30 [facility] Hemoglobin [Mass/volume] in Blood 16.4 g/dL 14.0 - 16.0 H [facility] Hematocrit [Volume Fraction] of Blood by Automated count 46.1 % 4 1.0 - 51.0 [facility] Erythrocyte mean corpuscular volume [Entitic volume] by Auto mated count 87.0 fL 80.0 - 94.0 [facility] Erythrocyte mean corpuscular hemoglobin [Entitic mass] by Automated count 30.9 pg 27.0 - 34.0 [facility] Erythrocyte mean corpuscular hemoglobin concentration [Mass/volume] by Automated count 35.6 g/dL 31.0 - 36.0 [facility] Erythrocyte distribution width [Ratio] by Automated count 12.6 % 11.5 - 14.8 [facility] Platelets [#/volume] in Blood by Automated count 458 10^3/uL 150 - 45 0 H [facility] Platelet mean volume [Entitic volume] in Blood by Automated count 9.2 fL 7.4 - 10.4 [facility] Neutrophils/100 leukocytes in Blood by Automated count 59.1 % 37. 0 - 80.0 [facility] Lymphocytes/100 leukocytes in Blood by Manual count 30.6 % 25.0 - 40.0 [facility] Monocytes/100 leukocytes in Blood by Automated count 7.8 % 3.0 - 8.0 [facility] Eosinophils/100 leukocytes in Blood by Automated count 1.6 % 0.0 - 7.0 [facility] Basophils/100 leukocytes in Blood by Automated count 0.6 % 0.0 - 2.0 [facility] %IG 0.3 % 0.0 - 0.0 H [facility] al %NRBC 0.0 % 0.0 - 0.0 [facility] al Neutrophils [#/volume] in Blood by Automated count 5.28 10^3/uL 2.00 - 6.90 [facility] Lymphocytes [#/volume] in Blood by Automated count 2.73 10^3/uL 0.60 - 3.40 [facility] Monocytes [#/volume] in Blood by Automated count 0.70 10^3/uL 0.00 - 0.90 [facility] Eosinophils [#/volume] in Blood by Automated count 0.14 10^3/uL 0.00 - 0.70 [facility] Basophils [#/volume] in Blood by Automated count 0.05 10^3/uL 0.00 - 0.20 [facility] #IG 0.03 10^3/uL 0.00 - 0.10 [facility] ospital #NRBC 0.00 10^3/uL 0.00 - 0.00 [facility] ospital MANUAL DIFF NOT INDICATED [facility] RBC MORPH NOT INDICATED [facility] spital ID Date Data Source [id number] 04/09/2020 12:52:00 PM [facility] Name Value Range Interpretation Code Description Data Adriana rce(s) Supporting Document(s) pH of Serum or Plasma 7.47 7.32 - 7.43 H [facility] pCO2 V 33.7 mm/HG 38.0 - 51.0 L [facility] pO2 V 25.9 mm/HG 30.0 - 55.0 L [facility] Bicarbonate [Moles/volume] in Venous blood 24.0 meq/L 22.0 - 29.0 [facility] TCO2 V 25.1 meq/L 22.0 - 29.0 [facility] Base excess in Blood by calculation 1.1 -2.0 - 2.0 [facility] O2 SAT V 52.6 % 40.0 - 85.0 [facility] ital ID Date Data Source [id number] 04/11/2020 06:29:[address] [facility] #[id number] CALLED TO MAYITO JOAQUIN AT 0630 ON 04/11/20 BY NEAL.RESULTS READ BACK.The [employer] BCID Panel is a qualitative multiplexednucleic acid-based [...] rce(s) Supporting Document(s) ID Date Data Source [id number] 04/11/2020 06:31:00 AM [facility] Name Value Range Interpretation Code Description Data [facility] rce(s) Supporting Document(s) CULTURE BLOOD [facility] spital _CULTURE BLOOD_ TEST [place] [address] CLIA# [id number] SEE SCANNED REPORT{ PRELIM GROWTH OF STAPH SPECIES, PT TRANSFERRED ID Date Data Source [id number] 03/31/2020 12:33:00 PM [facility] [address] [place] [address] PHONE: [phone] FAX: [phone] Name .................. : KYLE Meyer Acct Number.................. : [id number] ROOM. ................. : TR-05 Number ................... : [id number] Stay type ............. : E/R Discharge Date......... ... : 03/29/20 Admit Date ......... : 03/29/20 Admit Phys .................... : IVAN KIRK Date of ....... : 1985 Family Phys ................... : ALEX KEANE Phone .................. : [phone] Age ................................ : 34 Film# .................. .:[id number] Sex ................................. : M Unsigned transcriptions are preliminary reports and do not represent a medical or legal document CT HEAD W/O CONTRAST [id number] COMPLETE:03/29/20 14:23 MADHAV [id number] Reason(s): L sided [...] By ALEXANDRA HOUSE MD , 03/31/20 14:01, [facility] Transcribe Initials: [facility], Transcribe Date: 03/31/20 12:33, Dictation Date: Page 1 of 2 [facility] [address] [place] [address] PHONE: [phone] FAX: [phone] Name .................. : KYLE Meyer Acct Number.................. : [id number] ROOM. ................. : TR-05 MR Number ................... : [id number] Stay type ............. : E/R Discharge Date......... ... : 03/29/20 Admit Date ......... : 03/29/20 Admit Phys .................... : IVAN KIRK Date of ....... : 1985 Family Phys ................... : ALEX KEANE Phone .................. : [phone] Age ................................ : 34 Film# .................. .:[id number] Sex ................................. : M Unsigned transcriptions are preliminary reports and do not represent a medical or legal document CT HEAD W/O CONTRAST [id number] COMPLETE:03/29/20 14:23 MADHAV 4855 Reason(s): L sided UE numbness/double vision Copy for: MYRON Wolf via fax Copy for: EMERGENCY DEPT via modem Copy for: 710 MED REC DISCHARGED Page 2 of 2 Name Value Range Interpretation Code Description Data Adriana rce(s) Supporting Document(s) ID Date Data Source [id number] 03/30/2020 06:35:00 PM EST [facility] [address] [place] [address] PHONE: [phone] FAX: [phone] Name .................. : KYLE Meyer Acct Number.................. : [id number] ROOM. ................. : TR-05 Number ................... : [id number] Stay type ............. : E/R Discharge Date......... ... : 03/29/20 Admit Date ......... : 03/29/20 Admit Phys .................... : IVAN KIRK Date of ....... : 1985 Family Phys ................... : JOHNSON DIYA Phone .................. : [phone] Age ................................ : 34 Film# .................. .:[id number] Sex ................................. : M Unsigned transcriptions are preliminary reports and do not represent a medical or legal document CT CTA HEAD W CONTRAST INC PP [id number] COMPLETE:03/29/20 14:23 MADHAV 5016 Reason(s): L sided UE numbness double vision [...] are widely patent. There is an incomplete [place] of [place] with an absent left posterior [...] By Maninder Luis M.D. , 03/30/20 18:35, [facility] Transcribe Initials: MELANIE , Transcribe Date: 03/29/20 19:16, Dictation Date: Page 1 of 2 [place] [address] PHONE: [phone] FAX: [phone] Name .................. : KYLE MCNEIL Betsy Acct Number.................. : [id number] ROOM. ................. : TR-05 Number ................... : [id number] Stay type ............. : E/R Discharge Date......... ... : 03/29/20 Admit Date .... ..... : 03/29/20 Admit Phys .................... : IVAN KIRK Date of ....... : 1985 Family Phys ................... : ALEX KEANE Phone .................. : [phone] Age ................................ : 34 Film# .................. .:[id number] Sex ................................. : M Unsigned transcriptions are preliminary reports and do not represent a medical or legal document CT CTA HEAD W CONTRAST INC PP [id number] COMPLETE:03/29/20 14:23 MADHAV 4856 Reason(s): L sided UE numbness double vision Copy for: MYRON Wolf via fax Copy for: EMERGENCY DEPT via modem Copy for: 710 MED REC DISCHARGED Page 2 of 2 Name Value Range Interpretation Code Description Data Adriana rce(s) Supporting Document(s) ID Date Data Source [id number] 03/30/2020 06:34:00 PM EST [facility] [address] [place] [address] PHONE: [phone] FAX: [phone] Name .................. : KYLE Meyer Acct Number.................. : [id number] ROOM. ................. : TR-05 Number ................... : [id number] Stay type ............. : E/R Discharge Date......... ... : 03/29/20 Admit Date ......... : 03/29/20 Admit Phys .................... : IVAN KIRK Date of ....... : 1985 Family Phys ................... : ALEX WANGI Phone .................. : [phone] Age ................................ : 34 Film# .................. .:[id number] Sex ................................. : M Unsigned transcriptions are preliminary reports and do not represent a medical or legal document CT CTA NECK W CONT INC PP [id number] COMPLETE:03/29/20 14:23 MADHAV 4857 Reason(s): L sided [...] [address] Page 1 of 2 [place] [address] PHONE: [phone] FAX: [phone] Name .................. : KYLE Meyer Acct Number.................. : [id number] ROOM. ................. : TR-05 MR Number ................... : [id number] Stay type ............. : E/R Discharge Date......... ... : 03/29/20 Admit Date ..... .... : 03/29/20 Admit Phys .................... : IVAN KIRK Date of ....... : 1985 Family Phys ................... : ALXE KEANE Phone .................. : [phone] Age ................................ : 34 Film# .................. .:[id number] Sex ................................. : M Unsigned transcriptions are preliminary reports and do not represent a medical or legal document CT CTA NECK W CONT INC PP [id number] COMPLETE:03/29/20 14:23 MADHAV 4857 Reason(s): L sided UE numbness/double vision Method of administration: Intravenous Electronically Reviewed and Signed By Maninder Luis M.D. , 03/30/20 18:34, [facility] Transcribe Initials: MELANIE , Transcribe Date: 03/29/20 19:15, Dictation Date: Copy for: MYRON Wolf via fax Copy for: EMERGENCY DEPT via modem Copy for: 710 MED REC DISCHARGED Page 2 of 2 Name Value Range Interpretation Code Description Data Adriana rce(s) Supporting Document(s) ID Date Data Source [id number] 03/30/2020 06:22:00 PM EST [facility] [address] [place] [address] PHONE: [phone] FAX: [phone] Name .................. : KYLE Meyer Acct Number.................. : [id number] ROOM. ................. : TR-05 MR Number ................... : [id number] Stay type ............. : E/R Discharge Date......... ... : 03/29/20 Admit Date ......... : 03/29/20 Admit Phys .................... : IVAN KIRK Date of ....... : 1985 Family Phys ................... : [employer] Phone .................. : [phone] Age ................................ : 34 Film# .................. .:[id number] Sex ................................. : M Unsigned transcriptions are preliminary reports and do not represent a medical or legal document CHEST PORTABLE [id number] COMPLETE:03/29/20 13:01 NAT 4858 Reason(s): L UE numbness/double vision AP PORTABLE CHEST X- RAY: FINDINGS: The cardiac and mediastinal silhouettes appear normal and the lungs are clear. The bones and soft tissues are normal. The upper abdomen is unremarkable. IMPRESSION: No acute disease identifiable. Electronically Reviewed and Signed By ALEXANDRA HOUSE MD , 03/30/20 18:22, [facility] Transcribe Initials: MELANIE , Transcribe Date: 03/29/20 17:13, Dictation Date: Copy for: MYRON Wolf via fax Copy for: EMERGENCY DEPT via modem Copy for: 710 MED REC DISCHARGED Page 1 of 1 Name Value Range Interpretation Code Description Data Adriana rce(s) Supporting Document(s) ID Date Data Source [id number] 03/30/2020 08:03:00 [place] [address] RESPIRATORY CARE REPORT ==== ---------NAME------- NUMBER SEX AGE ADMIT DISC. XRAY# F/C TYPEMURPHY DELONTE Meyer [id number] 03/29/20 03/29/20 [id number] X6B E/R DATE OF : 1985 M/R# [id number] #: [id number] TR-05 LOCATION: EMERGENCY DEPT EKG [id number] COMP LETE:03/29/20 14:05 ED [id number] PHYSICIAN: IVAN CARLSON Name Value Range Interpretation Code Description Data Adriana rce(s) Supporting Document(s) ID Date Data Source [id number] 03/29/2020 11:40:00 AM [facility] 1 OrderSheet [facility] Emergency Department [address] [place] [address] Phone #: ext- [phone] 03/29/2020 11:30 Patient: [...] CHAVEZ; [place]cy RNTroponin-T STAT 12:03/29/2020 12:30 Livan CHAVZE; [place] RNUrinalysis (Clean STAT 12:03/29/2020 Ack'd: 12:30 14:41 Sonu) Tonio CHAVEZ; Sandy Dimas RN R.N.Urine Drug Screen STAT 12:03/29/2020 Ack'd: 12:30 14:41 Livan CHAVEZ; Sandy Dimas RN R.N.DIAGNOSTIC STUDY ORDERSOrder Description Priority Entered Acknowledged InitialedCT Head W/O Cont STAT 12:03/29/2020 Ack'd: 12:30 Sandy Dimas R.N.(Oxygen?(No)) Tonio CHAVEZ; Initialed: 12:30 Livan Mathew RN Cancelled: Other 14:32 Tonio CHAVEZ Reason for Study: L sided UE numbness/double visionCT CTA HEAD W STAT 1 2:03/29/2020 Ack'd: 12:30 12:30 [employer] PP Tonio CHAVEZ; Sandy Dimas RN(Oxygen?(No)) R.N.(IV?(Yes)) Reason for Study: L sided UE numbness double vision 2 OrderSheet [facility] Emergency Department [address] [place] [address] Phone #: ext- [phone] 03/29/2020 11:30 [id number] Sex[facility] M : 1985 Age: 34yCT CTA NECK W STAT 12:03/29/2020 Ack'd: 12:30 12:30 [employer] GIORGI CHAVEZ; Sandy Dimas RN(Oxygen?(No)) R.N.(IV?(Yes)) Reason for [...] InitialedCardiac Monitor 12:03/29/2020 12:22 Daryn(continuous) Tonio CHAVEZ; database modeler, [facility] Epwi5Sbsua Pressure 12:03/29/2020 12:22 Chaya CHAVEZ; database modeler, [facility] [id number] 12:03/29/2020 12:22 Daryn CHAVEZ; database modeler, [facility] Tuxd5Ndffgczbdav stroke 12:03/29/2020 12:30 Nolan SBP<160, Tonio CHAVEZ; [place] RNDBP<90 mmHgIschemic stroke 12:21 03/29/2020 12:30 Nolan SBP<220, Tonio CHAVEZ; [place] SOSA 3 OrderSheet [facility] Emergency Department [address] [place] [address] Phone #: ext- [phone] 03/29/2020 11:30 Patient: DELONTE ZAMORANO Sex: M : 1985 Age: 34yDBP<120 mmHgNPO 12:21 03/29/2020 12:30 Livan CHAVEZ; [place] RNPulse Oximetry 12:21 03/29/2020 12:30 LivanContinsen CHAVEZ; [place] RNVitals 12:21 03/29/2020 12:30 Livan CHAVEZ; [place]cy SOSAWarm blanket 12:21 03/29/2020 12:30 Livan CHAVEZ; [place]cy SOSAObtain Old EKG 12:21 03/29/2020 12:30 Livan CHAVEZ; [place]cy RN[Electronically signed by Sandy Dimas R.N. (14:54 03/29/2020)][Electronically signed by Tonio Lara (15:10 03/29/2020)][Electronically locked by Sandy Dimas R.N. (14:54 03/29/2020)] Name Value Range Interpretation Code Description Data Adriana rce(s) Supporting Document(s) ID Date Data Source [id number] 03/29/2020 11:40:00 AM EST [facility] 1 Medication Reconciliation Report [facility] Emergency Department [address] [place] [address] Phone #: ext- [phone] 03/29/2020 11:30 Patient: DELONTE ZAMORANO [facility]#: [id number] Sex: M : 1985 Age: 34yWeight: 99.9 [...] rce(s) Supporting Document(s) ID Date Data Source [id number] 03/29/2020 11:40:00 AM EST [facility] 1 Medication Administration Record [facility] Emergency Department [address] [place] [address] Phone #: ext- [phone] 03/29/2020 11:30 Patient: [...] mL bag14:40 03/29/2020 Site: #1 left upper armSandy Dimas R.N.Given ZOFRAN [IVP] (ONDANSETRON HCL) Zofran IVP 4 mg12:37 03/29/2020 Dose: 4 mg IVPPnancy Mathew RN Site: #1 left upper armGiven ACETAMINOPHEN [PO] Acetaminophen 1 g PO X1 dose:14:07 03/29/2020 Dose: 1000 mg Tablets PO 1000 mg (NOW x1)Livan Mathew RN Name Value Range Interpretation Code Description Data Adriana rce(s) Supporting Document(s) ID Date Data Source [id number] 03/29/2020 11:40:00 AM EST [facility] 1 General Instructions [facility] Emergency Department [address] [place] [address] Phone #: ext- [phone] 03/29/2020 11:30 Patient: [...] INFORMATIONVertigo (Unknown Cause) 2 General Instructions [facility] Emergency Department [address] [place] [address] Phone #: ext- [phone] 03/29/2020 11:30 Patient: [...] loose electrical cords 3 General Instructions [facility] Emergency Department [address] [place] [address] Phone #: ext- [phone] 03/29/2020 11:30 Patient: [...] nausea, vomiting, and dizziness, you may use ajis-brf-gdekfvu motion sickness pills. Ask your pharmacist for [...] speech or vision Loss of consciousness Seizure [id number] [employer]. [address] [place] [address], [place] [address]. All rights reserved. This information is not intended as asubstitute for professional medical care. Always follow your healthcare professional's instructions. You have been given the following additional information: Vertigo, Unspecified No strenuous activity until better. Rest at home today. Do not work for three days. 4 General Instructions [facility] Emergency Department [address] [place] [address] Phone #: ext- [phone] 03/29/2020 11:30 Patient: DELONTE ZAMORANO Sex: M : 1985 Age: 34y(Electronically signed by KATHY Garcia 03/29/2020 15:10) Name Value Range Interpretation Code Description Data Adriana rce(s) Supporting Document(s) ID Date Data Source [id number] 03/29/2020 11:40:00 AM EST [facility] 1 Clinical Report - Nurses [facility] Emergency Department [address] [place] [address] Phone #: ext- [phone] 03/29/2020 11:30 Patient: DELONTE ZAMORANO Sex: M [...] has had ear pain, nausea and troublewalking.Treatment ELIGIBILITY SERVICES REPRESENTATIVE:None.SEPSIS SCREEN: SIRS SCREEN NEGATIVE. SEPSIS SCREEN NEGATIVE. No suspected or confirmedsigns of infection present. --11:39 03/29/20 Patrica Lopez R.N.11:32 03/29/20. BP: 155/84. MAP: 107. HR: 90. RR: 18. O2 saturation: 100%. Temp: 97.1 F. Pain levelnow: 0. --11:39 03/29/20 Patrica Lopez R.N.Weight: 99.9 kg [...] 03/29/20 2 Clinical Report - Nurses [facility] Emergency Department [address] [place] [address] Phone #: ext- [phone] 03/29/2020 11:30 Patient: [...] room. 3 Clinical Report - Nurses [facility] Emergency Department [address] [place] [address] Phone #: ext- [phone] 03/29/2020 11:30 [id number] Sex: [facility] : 1985 Age: 34y GENERAL [...] monitor and pulse oximeter placed on patient; mitigation supervisor- Lead II; monitora larms on. Patient gowned. [...] Livan Mathew RN EKG was performed by a romie and shown to the PA. --12:30 03/29/20 [facility] Bayron Gupta ER Tech1 12:36 03/29/2020 Started bag #1 [...] R.N. 4 Clinical Report - Nurses [facility] Emergency Department [address] [place] [address] Phone #: ext- [phone] 03/29/2020 11:30 Patient: [...] Patient verbalized understanding. Written instructions provided in Angolan. The patient was discharged by the physician educational assistant teacher. He was discharged home and accompanied by family. He left ambulatory and via private vehicle. Family member driving. --14:52 03/29/20 Sandy Dimas R.N. 14:45 03/29/20. BP: 145/86. MAP: 105. HR: 64. RR: 16. O2 saturation: 95% on room air. Temp: 98.5 F (oral). Pain level now: 510. --14:52 03/29/20 Sandy Dimas R.N. 14:40 03/29/2020 [...] rce(s) Supporting Document(s) ID Date Data Source [id number] 03/29/2020 11:40:00 AM [facility] 1 Clinical Report - Physicians/Mid Levels [facility] Emergency Department [address] [place] [address] Phone #: ext- [phone] 03/29/2020 11:30 Patient: [...] 2 Clinical Report - Physicians/Mid Levels [facility] Emergency Department [address] [place] [address] Phone #: ext- [phone] 03/29/2020 11:30 Patient: [...] 3 Clinical Report - Physicians/Mid Levels [facility] Emergency Department [address] [place] [address] Phone #: [phone] ahd- [phone] 03/29/2020 11:30 Patient: DELONTE ZAMORANO Sex: M [...] 4 Clinical Report - Physicians/Mid Levels [facility] Emergency Department [address] [place] [address] Phone #: ext- [phone] 03/29/2020 11:30 Patient: DELONTE ZAMORANO Sex: M [...] Male GFR Interprentation 20-49 yrs >60 mL/min Zdbtne67-86 yrs >56 mL/min Normal 60-69 yrs >49 mL/min Normal 70-79yrs>42 mL/min Normal 80 and above >35 mL/min Normal Female GFRInterpretation 20-39 yrs >60 mL/min Normal 40-49 yrs >58 mL/min 5 Clinical Report - Physicians/Mid Levels [facility] Emergency Department [address] [place] [address] Phone #: ext- [phone] 03/29/2020 11:30 Patient: [...] Thrombosis, Pulmonary Embolus, Tissue heart valves, Acute MA Atrial Fibrillation, Valvular heart disease and recurrent Systemic Embolism. -International Normalized Ratio (INR): 2.5 - 3.5 for Mechanical Prosthetic valve. Troponin-T: (PORTIA: 03/29/2020 12:48) ( [facility] 13:31[facility] Final results Test Result Flag Units (Reference) TROPONIN T <0.01 NG/ML (0.00 - 0.10) TROPONIN T0.1 ng/ml Recommended as the clinical threshold value forTroponin T. EKG: (PORTIA: 03/29/2020 12:21) ( MsgRcvd 03/29/2020 14:17) In [place] CT Head W/O Cont: (PORTIA: 03/29/2020 12:21) ( [facility] [place] 03/29/[facility] 14:23) In [place] CT HEAD W/O CONTRAST Reason(s): L sided UE numbness/double vision TRANSPORTATION: S IV? O2? Oxygen?(No) Room: ED CT CTA HEAD W CONTRAST INC PP: (PORTIA: 03/29/2020 12:21) ( NhgRcvd 03/29/2020 14:23) In [place] CT CTA HEAD W CONTRAST INC PP Reason(s): L sided UE numbness double vision TRANSPORTATION: S IV? IV?(Yes) O2? Oxygen?(No) Ro CT CTA NECK W CONT INC PP: (PORTIA: 03/29/2020 12:21) ( MsgRcvd 03/29/2020 14:23) In [place] CT CTA NECK W CONT INC PP Reason(s): L sided UE numbness/double vision TRANSPORTATION: S IV? IV?(Yes) O2? Oxygen?(No) Ro Chest Portable 1 View: (PORTIA: 03/29/2020 12:21) ( MsgRcvd 03/29/2020 13:01) In [place] CHEST PORTABLE Reason(s): L UE numbness/double vision TRANSPORTATION: P IV? O2? Oxygen?(No) Room: ED. 6 Clinical Report - Physicians/Mid Levels [facility] Emergency Department [address] [place] [address] Phone #: ext- [phone] 03/29/2020 11:30 Patient: [...] 7 Clinical Report - Physicians/Mid Levels [facility] Emergency Department [address] [place] [address] Phone #: ext- [phone] 03/29/2020 11:30 Patient: DELONTE ZAMORANO Sex: M : 1985 Age: 34y(Electronically signed by KATHY Garcia 03/29/2020 15:10) Name Value Range Interpretation Code Description Data Adriana rce(s) Supporting Document(s) ID Date Data Source [id number] 03/29/2020 01:30:00 PM EST [facility] Name Value Range Interpretation Code Description Data Adriana rce(s) Supporting Document(s) TROPONIN T <0.01 NG/ML 0.00 - 0.10 [facility] ospital TROPONIN T0.1 ng/ml Recommended as the c linical threshold value forTroponin T. ID Date Data Source [id number] 03/29/2020 01:26:00 PM [facility] Name Value Range Interpretation Code Description Data Adriana rce(s) Supporting Document(s) COMPREHENSIVE METABOLIC PANEL [facility] COMPREHENSIVE METABOLIC PANEL Sodium [Moles/volume] in Serum or Plasma 139 mEq/L 134 - 153 [facility] Potassium [Moles/volume] in Serum or Plasma 4.3 mEq/L 3.6 - 5.0 [facility] Chloride [Moles/volume] in Serum or Plasma 105 mEq/L 98 - 107 [facility] Carbon dioxide, total [Moles/volume] in Serum or Plasma 26 MEQ/L 22 - 30 [facility] Glucose [Mass/volume] in Serum or Plasma 95 MG/DL 70 - 99 [facility] BUN 11 MG/DL 7 - 21 [facility] Creatinine [Mass/volume] in Serum or Plasma 1.0 MG/DL 0.7 - 1.5 [facility] BUN/CREAT 11 8 - 27 [facility] Protein [Mass/volume] in Serum or Plasma 7.1 G/DL 6.3 - 8.2 [facility] Albumin [Mass/volume] in Serum or Plasma 4.3 G/DL 3.9 - 5.0 [facility] Globulin [Mass/volume] in Serum by calculation 2.8 GM/DL 2.4 - 3.2 [facility] A/G RATIO 1.5 0.8 - 2.0 [facility] Calcium [Mass/volume] in Serum or Plasma 9.1 MG/DL 8.4 - 10.2 [facility] Bilirubin.total [Mass/volume] in Serum or Plasma <0.7 MG/DL 0.2 - 1.3 [facility] Alkaline phosphatase [Enzymatic activity/volume] in Serum or Plasma 80 U/L 38 - 126 [facility] Aspartate aminotransferase [Enzymatic activity/volume] in Serum or Plasma 12 U/L 5 - 40 [facility] Alanine aminotransferase [Enzymatic activity/volume] in Seru m or Plasma 30 U/L 7 - 56 [facility] Anion gap 3 in Serum or Plasma 8.0 mmol/L 8.0 - 16.0 [facility] AGE 34 yrs [facility] al NON-AA GFR >60 mL/min [facility] ital AFR AMER GFR >60 mL/min [facility] Ho spital Male GFR In terprentation [...] >32 mL/min Normal ID Date Data Source [id number] 03/29/2020 01:23:00 PM EST [facility] Name Value Range Interpretation Code Description Data Adriana rce(s) Supporting Document(s) Prothrombin time (PT) 12.5 SECONDS 11.0 - 15.5 Health system INR in Platelet poor plasma by Coagulation assay 0.89 0.93 - 1. 23 L [facility] aPTT in Blood by Coagulation assay 27.1 SECONDS 24.8 - 36.7 [facility] \\BLDo\\INR INTERPRETATION\\BLDx\\ Therapeutic range for Coumadin and related oral anticoagulants. - International Normalized Ratio (INR): 2.0 - 3.0 for Venous Thrombosis, Pulmonary Embolus, Tissue heart valves, Acute MA Atrial Fibrillation, Valvular heart disease and recurrent Systemic Embolism. - International Normalized Ratio (INR): 2.5 - 3.5 for Mechanical Prosthetic valve. ID Date Data Source [id number] 03/29/2020 01:13:00 PM EST [facility] Name Value Range Interpretation Code Description Data Adriana rce(s) Supporting Document(s) Lactate [Moles/volume] in Serum or Plasma 1.8 MMOL/L 0.2 - 2.2 [facility] ID Date Data Source [id number] 03/29/2020 01:09:00 PM [facility] Name Value Range Interpretation Code Description Data Adriana rce(s) Supporting Document(s) CBC W/AUTOMATED DIFF [facility] COMPLETE BLOOD COUNT Leukocytes [#/volume] in Blood by Automated count 9.3 10^3/uL 4.2 - 1 1.0 [facility] Erythrocytes [#/volume] in Blood by Automated count 4.80 10^6/uL 4. 50 - 6.30 [facility] Hemoglobin [Mass/volume] in Blood 14.8 g/dL 14.0 - 16.0 [facility] Hematocrit [Volume Fraction] of Blood by Automated count 41.4 % 4 1.0 - 51.0 [facility] Erythrocyte mean corpuscular volume [Entitic volume] by Auto mated count 86.3 fL 80.0 - 94.0 [facility] Erythrocyte mean corpuscular hemoglobin [Entitic mass] by Automated count 30.8 pg 27.0 - 34.0 [facility] Erythrocyte mean corpuscular hemoglobin concentration [Mass/volume] by Automated count 35.7 g/dL 31.0 - 36.0 [facility] Erythrocyte distribution width [Ratio] by Automated count 12.4 % 11.5 - 14.8 [facility] Platelets [#/volume] in Blood by Automated count 447 10^3/uL 150 - 45 0 [facility] Platelet mean volume [Entitic volume] in Blood by Automated count 9.0 fL 7.4 - 10.4 [facility] Neutrophils/100 leukocytes in Blood by Automated count 64.6 % 37. 0 - 80.0 [facility] Lymphocytes/100 leukocytes in Blood by Manual count 23.7 % 25.0 - 40.0 L [facility] Monocytes/100 leukocytes in Blood by Automated count 9.0 % 3.0 - 8.0 H [facility] Eosinophils/100 leukocytes in Blood by Automated count 1.7 % 0.0 - 7.0 [facility] Basophils/100 leukocytes in Blood by Automated count 0.7 % 0.0 - 2.0 [facility] %IG 0.3 % 0.0 - 0.0 [facility] %NRBC 0.0 % 0.0 - 0.0 [facility] al Neutrophils [#/volume] in Blood by Automated count 6.03 10^3/uL 2.00 - 6.90 [facility] Lymphocytes [#/volume] in Blood by Automated count 2.21 10^3/uL 0.60 - 3.40 [facility] Monocytes [#/volume] in Blood by Automated count 0.84 10^3/uL 0.00 - 0.90 [facility] Eosinophils [#/volume] in Blood by Automated count 0.16 10^3/uL 0.00 - 0.70 [facility] Basophils [#/volume] in Blood by Automated count 0.07 10^3/uL 0.00 - 0.20 [facility] #IG 0.03 10^3/uL 0.00 - 0.10 [facility] H ospital #NRBC 0.00 10^3/uL 0.00 - 0.00 [facility] H ospital MANUAL DIFF NOT INDICATED [facility] Hospital RBC MORPH NOT INDICATED [facility] spital ID Date Data Source [id number] 01/23/2020 06:09:00 AM EST [facility]) Name Value Range Interpretation Code Description Data Adriana rce(s) Supporting Document(s) glucose, fasting 87 mg/dL 70-100 Glucose, Fasting AT [facility]) creatinine for GFR 1.02 mg/dL 0.70-1.30 Creatinine for GF R [facility]) blood urea nitrogen 8 mg/dL 7-18 Blood Urea Nitro gen [facility] ([facility]) glomerular filtration rate > 60.0 >60 Glomerula r Filtration Rate [facility] ([facility]) sodium level 140 mEq/L 136-145 Sodium Level [facility] ([facility]) potassium serum 3.8 mEq/L 3.5-5.1 [facility] chloride level 107 mEq/L 98-107 Chloride Level [facility] ([facility]) carbon dioxide level 25 mEq/L 21-32 Carbon Dioxide Level [facility] ([facility]) calcium level 8.3 mg/dL 8.5-10.1 Below low normal Calcium Level AT [facility]) anion gap 8 mEq/L 8-16 Anion Gap [facility] ([facility]) ID Date Data Source [id number] 01/23/2020 06:09:00 AM EST [facility]) Name Value Range Interpretation Code Description Data Adriana rce(s) Supporting Document(s) red blood count 4.60 10 4.30-6.10 [facility] white blood count 6.1 10 4.0-10.0 White Blood Count [facility]) hemoglobin 14.0 g/dL 13.5-17.5 Hemoglobin [facility] ([facility]) hematocrit 40.2 % 42.0-52.0 Below low normal Hematocrit [facility] ( [facility]) mean corpuscular volume 87.4 fL 80.0-96.0 Mean Corpusc ular Volume [facility] ([facility]) mean corpuscular hemoglobin 30.4 pg 27.0-33.0 Mean Cor puscular Hemoglobin [facility] ([facility]) mean corpuscular HGB conc 34.8 g/dL 32.0-36.5 Mean Corpu scular HGB Conc [facility] ([facility]) red cell distribution width 12.3 % 11.5-14.5 Red Cell Distribution Width [facility] ([facility]) platelet count, automated 283 10 150-450 Platelet C ount, Automated [facility] ([facility]) nucleated red blood cell % 0.0 % 0-0 Nucleated Red Blood Cell % [facility] ([facility]) ID Date Data Source [id number] 01/23/2020 06:09:00 AM EST [facility]) Name Value Range Interpretation Code Description Data Adriana rce(s) Supporting Document(s) glucose, fasting 87 mg/dL 70-100 Glucose, Fasting AT [facility]) blood urea nitrogen 8 mg/dL 7-18 Blood Urea Nitro gen [facility] ([facility]) creatinine for GFR 1.02 mg/dL 0.70-1.30 Creatinine for GF R [facility] ([facility]) glomerular filtration rate > 60.0 >60 Glomerula r Filtration Rate [place] ([facility]) chloride level 107 mEq/L 98-107 Chloride Level [facility] ([facility]) sodium level 140 mEq/L 136-145 Sodium Level [place] ([facility]) potassium serum 3.8 mEq/L 3.5-5.1 Potassium Serum ATH NA ([facility]) anion gap 8 mEq/L 8-16 Anion Gap [facility] ([facility]) carbon dioxide level 25 mEq/L 21-32 Carbon Dioxide Level [facility]) calcium level 8.3 mg/dL 8.5-10.1 Below low normal Calcium Level AT [facility] ([facility]) ID Date Data Source [id number] 01/23/2020 06:09:00 AM EST [place] ([facility]) Name Value Range Interpretation Code Description Data Adriana rce(s) Supporting Document(s) white blood count 6.1 10 4.0-10.0 White Blood Count [facility] ([facility]) hemoglobin 14.0 g/dL 13.5-17.5 Hemoglobin [facility] ([facility]) red blood count 4.60 10 4.30-6.10 Red Blood Count ATHE ([facility]) hematocrit 40.2 % 42.0-52.0 Below low normal Hematocrit [facility] ( [facility]) mean corpuscular volume 87.4 fL 80.0-96.0 Mean Corpusc ular Volume [facility] ([facility]) mean corpuscular HGB conc 34.8 g/dL 32.0-36.5 Mean Corpu scular HGB Conc [facility] ([facility]) mean corpuscular hemoglobin 30.4 pg 27.0-33.0 Mean Cor puscular Hemoglobin [facility] ([facility]) red cell distribution width 12.3 % 11.5-14.5 Red Cell Distribution Width [facility] ([facility]) platelet count, automated 283 10 150-450 Platelet C ount, Automated [facility] ([facility]) nucleated red blood cell % 0.0 % 0-0 Nucleated Red Blood Cell % [facility] ([facility]) ID Date Data Source [id number] 01/23/2020 06:09:00 AM EST [place] ([facility]) Name Value Range Interpretation Code Description Data Adriana rce(s) Supporting Document(s) glucose, fasting 87 mg/dL 70-100 Glucose, Fasting AT [facility] ([facility]) creatinine for GFR 1.02 mg/dL 0.70-1.30 Creatinine for GF R [facility] ([facility]) blood urea nitrogen 8 mg/dL 7-18 Blood Urea Nitro gen [facility] ([facility]) glomerular filtration rate > 60.0 >60 Glomerula r Filtration Rate [facility] ([facility]) sodium level 140 mEq/L 136-145 Sodium Level [facility] (No Replaced by [facility]) potassium serum 3.8 mEq/L 3.5-5.1 Potassium Serum ATHE NA ([facility]) chloride level 107 mEq/L 98-107 Chloride Level [facility] ([facility]) carbon dioxide level 25 mEq/L 21-32 Carbon Dioxide Level [facility] ([facility]) anion gap 8 mEq/L 8-16 Anion Gap [facility] ([facility]) calcium level 8.3 mg/dL 8.5-10.1 Below low normal Calcium Level AT [facility]) ID Date Data Source [id number] 01/23/2020 06:09:00 AM EST [facility]) Name Value Range Interpretation Code Description Data Adriana rce(s) Supporting Document(s) white blood count 6.1 10 4.0-10.0 White Blood Count [facility] ([facility]) hemoglobin 14.0 g/dL 13.5-17.5 Hemoglobin [facility] ([facility]) red blood count 4.60 10 4.30-6.10 Red Blood Count ATHE ([facility]) mean corpuscular volume 87.4 fL 80.0-96.0 Mean Corpusc ular Volume [facility] ([facility]) hematocrit 40.2 % 42.0-52.0 Below low normal Hematocrit [facility] ( [facility]) mean corpuscular hemoglobin 30.4 pg 27.0-33.0 Mean Cor puscular Hemoglobin [facility] ([facility]) mean corpuscular HGB conc 34.8 g/dL 32.0-36.5 Mean Corpu scular HGB Conc [facility] ([facility]) red cell distribution width 12.3 % 11.5-14.5 Red Cell Distribution Width [facility] ([facility]) nucleated red blood cell % 0.0 % 0-0 Nucleated Red Blood Cell % [facility] ([facility]) platelet count, automated 283 10 150-450 Platelet C ount, Automated [facility] ([facility]) ID Date Data Source [id number] 01/23/2020 06:09:00 AM EST [place] ([facility]) Name Value Range Interpretation Code Description Data Adriana rce(s) Supporting Document(s) blood urea nitrogen 8 mg/dL 7-18 Blood Urea Nitro gen [facility] ([facility]) glucose, fasting 87 mg/dL 70-100 Glucose, Fasting AT [facility]) creatinine for GFR 1.02 mg/dL 0.70-1.30 Creatinine for GF R [facility] ([facility]) glomerular filtration rate > 60.0 >60 Glomerula r Filtration Rate [facility] ([facility]) sodium level 140 mEq/L 136-145 Sodium Level [facility] (No Replaced by [facility]) chloride level 107 mEq/L 98-107 Chloride Level [facility] ([facility]) potassium serum 3.8 mEq/L 3.5-5.1 Potassium Serum ATHE NA ([facility]) anion gap 8 mEq/L 8-16 Anion Gap [facility] ([facility]) calcium level 8.3 mg/dL 8.5-10.1 Below low normal Calcium Level AT [facility]) carbon dioxide level 25 mEq/L 21-32 Carbon Dioxide Level [facility] ([facility]) ID Date Data Source [id number] 01/23/2020 06:09:00 AM EST [place] ([facility]) Name Value Range Interpretation Code Description Data Adriana rce(s) Supporting Document(s) white blood count 6.1 10 4.0-10.0 White Blood Count [facility] ([facility]) red blood count 4.60 10 4.30-6.10 Red Blood Count ATHE NA ([facility]) mean corpuscular volume 87.4 fL 80.0-96.0 Mean Corpusc ular Volume [facility] ([facility]) hemoglobin 14.0 g/dL 13.5-17.5 Hemoglobin [facility] ([facility]) hematocrit 40.2 % 42.0-52.0 Below low normal Hematocrit [facility] ( [facility]) mean corpuscular hemoglobin 30.4 pg 27.0-33.0 Mean Cor puscular Hemoglobin [facility] ([facility]) mean corpuscular HGB conc 34.8 g/dL 32.0-36.5 Mean Corpu scular HGB Conc [facility] ([facility]) nucleated red blood cell % 0.0 % 0-0 Nucleated Red Blood Cell % [facility] ([facility]) red cell distribution width 12.3 % 11.5-14.5 Red Cell Distribution Width [facility] ([facility]) platelet count, automated 283 10 150-450 Platelet C ount, Automated [facility]) ID Date Data Source [id number] 01/23/2020 06:09:00 AM EST [facility]) Name Value Range Interpretation Code Description Data Adriana rce(s) Supporting Document(s) glucose, fasting 87 mg/dL 70-100 Glucose, Fasting AT [facility]) blood urea nitrogen 8 mg/dL 7-18 Blood Urea Nitro gen [facility]) creatinine for GFR 1.02 mg/dL 0.70-1.30 Creatinine for GF R [facility] ([facility]) glomerular filtration rate > 60.0 >60 Glomerula r Filtration Rate [facility] ([facility]) sodium level 140 mEq/L 136-145 Sodium Level [facility] ([facility]) potassium serum 3.8 mEq/L 3.5-5.1 Potassium Serum ATH NA ([facility]) chloride level 107 mEq/L 98-107 Chloride Level [facility] ([facility]) carbon dioxide level 25 mEq/L 21-32 Carbon Dioxide Level [facility]) anion gap 8 mEq/L 8-16 Anion Gap [facility] ([facility]) calcium level 8.3 mg/dL 8.5-10.1 Below low normal Calcium Level AT [facility]) ID Date Data Source [id number] 01/23/2020 06:09:00 AM EST [facility] ([facility]) Name Value Range Interpretation Code Description Data Adriana rce(s) Supporting Document(s) white blood count 6.1 10 4.0-10.0 White Blood Count [facility] ([facility]) red blood count 4.60 10 4.30-6.10 Red Blood Count ATHE ([facility]) hemoglobin 14.0 g/dL 13.5-17.5 Hemoglobin [facility] ([facility]) hematocrit 40.2 % 42.0-52.0 Below low normal Hematocrit [facility] ( [facility]) mean corpuscular volume 87.4 fL 80.0-96.0 Mean Corpusc ular Volume [facility] ([facility]) mean corpuscular hemoglobin 30.4 pg 27.0-33.0 Mean Cor puscular Hemoglobin [facility] ([facility]) mean corpuscular HGB conc 34.8 g/dL 32.0-36.5 Mean Corpu scular HGB Conc [facility] ([facility]) red cell distribution width 12.3 % 11.5-14.5 Red Cell Distribution Width [facility] ([facility]) platelet count, automated 283 10 150-450 Platelet C ount, Automated [facility] ([facility]) nucleated red blood cell % 0.0 % 0-0 Nucleated Red Blood Cell % [facility] ([facility]) ID Date Data Source [id number] 01/22/2020 09:10:00 AM EST [facility] ([facility]) Name Value Range Interpretation Code Description Data Adriana rce(s) Supporting Document(s) summary final . Summary [facility] ([facility]) ID Date Data Source [id number] 01/22/2020 09:10:00 AM EST [facility] ([facility]) Name Value Range Interpretation Code Description Data Adriana rce(s) Supporting Document(s) pH,urine rfx 6.0 units 5.0-9.0 pH,urine Rfx [facility] (No Replaced by [facility]) color, urine rfx yellow yellow Color, Urine Rfx AT [facility] ([facility]) appearance, urine rfx clear clear Appearance, Ur ine Rfx [facility] ([facility]) glucose, urine (UA) auto rfx negative negative Glucose , Urine (UA) Auto Rfx [facility] ([facility]) specific gravity ur auto rfx 1.002-1.035 Specif ic [place] Ur Auto Rfx [place] ([facility]) protein, urine auto rfx negative negative Protein, Uri ne Auto Rfx [facility] ([facility]) bilirubin, urine auto rfx negative negative Bilirubin, Urine Auto Rfx [facility] ([facility]) urobilinogen, urine auto rfx 0.2 mg/dL 0.0-2.0 Urobili nogen, Urine Auto Rfx [facility] ([facility]) ketone, urine auto rfx negative negative Ketone, Urine Auto Rfx [facility] ([facility]) blood, urine blood rfx negative negative Blood, Urine Blood Rfx [facility] ([facility]) leukocyte esterase ur auto rfx negative negative Leukocyte Esterase Ur Auto Rfx [facility] ([facility]) nitrite, urine auto rfx negative negative Nitrite, Uri ne Auto Rfx [facility] ([facility]) RBC, urine auto rfx 0 /hpf 0-3 RBC, Urine Auto Rfx [facility] ([facility]) bacteria, urine auto rfx negative negative Bacteria, U rine Auto Rfx [facility] ([facility]) WBC, urine auto rfx 0 /hpf 0-3 WBC, Urine Auto Rfx [facility] ([facility]) squam epithelial cell ur aurfx 0 /hpf 0-6 Squam Epithelial Cell Ur Aurfx [facility] ([facility]) hyaline cast, urine auto rfx 0 /lpf 0-1 Hyaline Cast, Urine Auto Rfx [facility]) ID Date Data Source [id number] 01/22/2020 09:10:00 AM EST [facility]) Name Value Range Interpretation Code Description Data Adriana rce(s) Supporting Document(s) summary final . Summary [facility] ([facility]) ID Date Data Source [id number] 01/22/2020 09:10:00 AM EST [place] ([facility]) Name Value Range Interpretation Code Description Data Adriana rce(s) Supporting Document(s) color, urine rfx yellow yellow Color, Urine Rfx AT [facility] ([facility]) appearance, urine rfx clear clear Appearance, Ur ine Rfx [facility] ([facility]) pH,urine rfx 6.0 units 5.0-9.0 pH,urine Rfx [facility] (No Replaced by [facility]) specific gravity ur auto rfx 1.002-1.035 Specif ic [place] Ur Auto Rfx [facility] ([facility]) protein, urine auto rfx negative negative Protein, Uri ne Auto Rfx [facility] ([facility]) glucose, urine (UA) auto rfx negative negative Glucose , Urine (UA) Auto Rfx [facility] ([facility]) ketone, urine auto rfx negative negative Ketone, Urine Auto Rfx [facility] ([facility]) bilirubin, urine auto rfx negative negative Bilirubin, Urine Auto Rfx [facility] ([facility]) urobilinogen, urine auto rfx 0.2 mg/dL 0.0-2.0 Urobili nogen, Urine Auto Rfx [facility] ([facility]) leukocyte esterase ur auto rfx negative negative Leukocyte Esterase Ur Auto Rfx [facility] ([facility]) blood, urine blood rfx negative negative Blood, Urine Blood Rfx [facility] ([facility]) nitrite, urine auto rfx negative negative Nitrite, Uri ne Auto Rfx [facility] ([facility]) RBC, urine auto rfx 0 /hpf 0-3 RBC, Urine Auto Rfx [facility] ([facility]) WBC, urine auto rfx 0 /hpf 0-3 WBC, Urine Auto Rfx [place] ([facility]) bacteria, urine auto rfx negative negative Bacteria, U rine Auto Rfx [facility] ([facility]) squam epithelial cell ur aurfx 0 /hpf 0-6 Squam Epithelial Cell Ur Aurfx [facility] ([facility]) hyaline cast, urine auto rfx 0 /lpf 0-1 Hyaline Cast, Urine Auto Rfx [facility] ([facility]) ID Date Data Source [id number] 01/22/2020 09:10:00 AM EST [place] ([facility]) Name Value Range Interpretation Code Description Data Adriana rce(s) Supporting Document(s) summary final . Summary [facility] ([facility]) ID Date Data Source [id number] 01/22/2020 09:10:00 AM EST [place] ([facility]) Name Value Range Interpretation Code Description Data Adriana rce(s) Supporting Document(s) appearance, urine rfx clear clear Appearance, Ur ine Rfx [facility] ([facility]) color, urine rfx yellow yellow Color, Urine Rfx AT [facility] ([facility]) pH,urine rfx 6.0 units 5.0-9.0 pH,urine Rfx [facility] (No Replaced by [facility]) protein, urine auto rfx negative negative Protein, Uri ne Auto Rfx [facility] ([facility]) specific gravity ur auto rfx 1.002-1.035 Specif ic [place] Ur Auto Rfx [facility] ([facility]) glucose, urine (UA) auto rfx negative negative Glucose , Urine (UA) Auto Rfx [facility] ([facility]) urobilinogen, urine auto rfx 0.2 mg/dL 0.0-2.0 Urobili nogen, Urine Auto Rfx [facility] ([facility]) ketone, urine auto rfx negative negative Ketone, Urine Auto Rfx [facility] ([facility]) bilirubin, urine auto rfx negative negative Bilirubin, Urine Auto Rfx [facility] ([facility]) blood, urine blood rfx negative negative Blood, Urine Blood Rfx [facility] ([facility]) nitrite, urine auto rfx negative negative Nitrite, Uri ne Auto Rfx [facility] ([facility]) leukocyte esterase ur auto rfx negative negative Leukocyte Esterase Ur Auto Rfx [facility] ([facility]) WBC, urine auto rfx 0 /hpf 0-3 WBC, Urine Auto Rfx [facility] ([facility]) RBC, urine auto rfx 0 /hpf 0-3 RBC, Urine Auto Rfx [facility] ([facility]) bacteria, urine auto rfx negative negative Bacteria, U rine Auto Rfx [facility] ([facility]) squam epithelial cell ur aurfx 0 /hpf 0-6 Squam Epithelial Cell Ur Aurfx [facility] ([facility]) hyaline cast, urine auto rfx 0 /lpf 0-1 Hyaline Cast, Urine Auto Rfx [facility] ([facility]) ID Date Data Source [id number] 01/22/2020 09:10:00 AM EST [place] ([facility]) Name Value Range Interpretation Code Description Data Adriana rce(s) Supporting Document(s) summary final . Summary [facility] ([facility]) ID Date Data Source [id number] 01/22/2020 09:10:00 AM EST [place] ([facility]) Name Value Range Interpretation Code Description Data Adriana rce(s) Supporting Document(s) color, urine rfx yellow yellow Color, Urine Rfx AT [facility] ([facility]) appearance, urine rfx clear clear Appearance, Ur ine Rfx [facility] ([facility]) pH,urine rfx 6.0 units 5.0-9.0 pH,urine Rfx [place] (No Replaced by [facility]) protein, urine auto rfx negative negative Protein, Uri ne Auto Rfx [facility] ([facility]) specific gravity ur auto rfx 1.002-1.035 Specif ic [place] Ur Auto Rfx [facility] ([facility]) ketone, urine auto rfx negative negative Ketone, Urine Auto Rfx [facility] ([facility]) glucose, urine (UA) auto rfx negative negative Glucose , Urine (UA) Auto Rfx [facility] ([facility]) urobilinogen, urine auto rfx 0.2 mg/dL 0.0-2.0 Urobili nogen, Urine Auto Rfx [place] ([facility]) leukocyte esterase ur auto rfx negative negative Leukocyte Esterase Ur Auto Rfx [facility] ([facility]) bilirubin, urine auto rfx negative negative Bilirubin, Urine Auto Rfx [place] ([facility]) nitrite, urine auto rfx negative negative Nitrite, Uri ne Auto Rfx [facility] ([facility]) WBC, urine auto rfx 0 /hpf 0-3 WBC, Urine Auto Rfx [facility] ([facility]) RBC, urine auto rfx 0 /hpf 0-3 RBC, Urine Auto Rfx [facility] ([facility]) blood, urine blood rfx negative negative Blood, Urine Blood Rfx [facility] ([facility]) bacteria, urine auto rfx negative negative Bacteria, U rine Auto Rfx [facility] ([facility]) hyaline cast, urine auto rfx 0 /lpf 0-1 Hyaline Cast, Urine Auto Rfx [facility] ([facility]) squam epithelial cell ur aurfx 0 /hpf 0-6 Squam Epithelial Cell Ur Aurfx [facility] ([facility]) ID Date Data Source [id number] 01/22/2020 09:10:00 AM EST [facility] ([facility]) Name Value Range Interpretation Code Description Data Adriana rce(s) Supporting Document(s) summary final . Summary [facility] ([facility]) ID Date Data Source [id number] 01/22/2020 09:10:00 AM EST [facility] ([facility]) Name Value Range Interpretation Code Description Data Adriana rce(s) Supporting Document(s) appearance, urine rfx clear clear Appearance, Ur ine Rfx [facility] ([facility]) color, urine rfx yellow yellow Color, Urine Rfx AT [facility] ([facility]) pH,urine rfx 6.0 units 5.0-9.0 pH,urine Rfx [facility] ([facility]) specific gravity ur auto rfx 1.002-1.035 Specif ic [place] Ur Auto Rfx [facility] ([facility]) protein, urine auto rfx negative negative Protein, Uri ne Auto Rfx [facility] ([facility]) glucose, urine (UA) auto rfx negative negative Glucose , Urine (UA) Auto Rfx [facility] ([facility]) ketone, urine auto rfx negative negative Ketone, Urine Auto Rfx [facility] ([facility]) urobilinogen, urine auto rfx 0.2 mg/dL 0.0-2.0 Urobili nogen, Urine Auto Rfx [facility] ([facility]) bilirubin, urine auto rfx negative negative Bilirubin, Urine Auto Rfx [facility] ([facility]) nitrite, urine auto rfx negative negative Nitrite, Uri ne Auto Rfx [facility] ([facility]) leukocyte esterase ur auto rfx negative negative Leukocyte Esterase Ur Auto Rfx [facility] ([facility]) WBC, urine auto rfx 0 /hpf 0-3 WBC, Urine Auto Rfx [facility] ([facility]) blood, urine blood rfx negative negative Blood, Urine Blood Rfx [facility] ([facility]) RBC, urine auto rfx 0 /hpf 0-3 RBC, Urine Auto Rfx [facility] ([facility]) bacteria, urine auto rfx negative negative Bacteria, U rine Auto Rfx [facility] ([facility]) squam epithelial cell ur aurfx 0 /hpf 0-6 Squam Epithelial Cell Ur Aurfx [facility] ([facility]) hyaline cast, urine auto rfx 0 /lpf 0-1 Hyaline Cast, Urine Auto Rfx [facility] ([facility]) ID Date Data Source [id number] 01/22/2020 07:58:00 AM EST [place] ([facility]) Name Value Range Interpretation Code Description Data Adriana rce(s) Supporting Document(s) magnesium level 2.0 mg/dL 1.8-2.4 Magnesium Level AT[facility] ([facility]) ID Date Data Source [id number] 01/22/2020 07:58:00 AM EST MARJORIE ([facility]) Name Value Range Interpretation Code Description Data Adriana rce(s) Supporting Document(s) glucose, fasting 87 mg/dL 70-100 Glucose, Fasting AT [facility]) blood urea nitrogen 13 mg/dL 7-18 Blood Urea Nitro gen MARJORIE ([facility]) glomerular filtration rate > 60.0 >60 Glomerula r Filtration Rate TU[place]AN ([facility]) creatinine for GFR 1.03 mg/dL 0.70-1.30 Creatinine for GF R [place]AN ([facility]) sodium level 137 mEq/L 136-145 Sodium Level [place] (No Replaced by [facility]) chloride level 104 mEq/L 98-107 Chloride Level [place]AN ([facility]) potassium serum 3.8 mEq/L 3.5-5.1 [facility] level 8.3 mg/dL 8.5-10.1 Below low normal Calcium Level AT [facility]) anion gap 7 mEq/L 8-16 Below low normal Anion Gap [place] ( [facility]) carbon dioxide level 26 mEq/L 21-32 Carbon Dioxide Level [place] ([facility]) ID Date Data Source [id number] 01/22/2020 07:58:00 AM EST [facility]) Name Value Range Interpretation Code Description Data Adriana rce(s) Supporting Document(s) lactic acid sepsis protocol 1.4 mmol/L 0.4-2.0 Lactic A blayne Sepsis Protocol [facility]) ID Date Data Source [id number] 01/22/2020 07:58:00 AM EST [facility]) Name Value Range Interpretation Code Description Data Adriana rce(s) Supporting Document(s) white blood count 6.6 10 4.0-10.0 White Blood Count [facility]) hematocrit 39.9 % 42.0-52.0 Below low normal Hematocrit [facility]) hemoglobin 13.5 g/dL 13.5-17.5 Hemoglobin [facility]) red blood count 4.50 10 4.30-6.10 Red Blood Count ATHE NA ([facility]) mean corpuscular hemoglobin 30.0 pg 27.0-33.0 Mean Cor puscular Hemoglobin MARJORIE ([facility]) mean corpuscular volume 88.7 fL 80.0-96.0 Mean Corpusc ular Volume MARJORIE ([facility]) mean corpuscular HGB conc 33.8 g/dL 32.0-36.5 Mean Corpu scular HGB Conc MARJORIE ([facility]) platelet count, automated 280 10 150-450 Platelet C ount, Automated MARJORIE ([facility]) red cell distribution width 12.5 % 11.5-14.5 Red Cell Distribution Width MARJORIE ([facility]) nucleated red blood cell % 0.0 % 0-0 Nucleated Red Blood Cell % MARJORIE ([facility]) ID Date Data Source [id number] 01/22/2020 07:58:00 AM EST MARJORIE ([facility]) Name Value Range Interpretation Code Description Data Adriana rce(s) Supporting Document(s) magnesium level 2.0 mg/dL 1.8-2.4 Magnesium Level ATHE EDUARD ([facility]) ID Date Data Source [id number] 01/22/2020 07:58:00 AM EST [place] ([facility]) Name Value Range Interpretation Code Description Data Adriana rce(s) Supporting Document(s) glucose, fasting 87 mg/dL 70-100 Glucose, Fasting AT [facility] ([facility]) creatinine for GFR 1.03 mg/dL 0.70-1.30 Creatinine for GF R MARJORIE ([facility]) blood urea nitrogen 13 mg/dL 7-18 Blood Urea Nitro gen MARJORIE ([facility]) sodium level 137 mEq/L 136-145 Sodium Level MARJORIE (No Replaced by [facility]) glomerular filtration rate > 60.0 >60 Glomerula r Filtration Rate MARJORIE ([facility]) chloride level 104 mEq/L 98-107 Chloride Level [place] ([facility]) carbon dioxide level 26 mEq/L 21-32 Carbon Dioxide Level MARJORIE ([facility]) potassium serum 3.8 mEq/L 3.5-5.1 Potassium Serum ATHE ([facility]) anion gap 7 mEq/L 8-16 Below low normal Anion Gap MARJORIE ( [facility]) calcium level 8.3 mg/dL 8.5-10.1 Below low normal Calcium Level AT NESHA ([facility]) ID Date Data Source [id number] 01/22/2020 07:58:00 AM EST [place] ([facility]) Name Value Range Interpretation Code Description Data Adriana rce(s) Supporting Document(s) lactic acid sepsis protocol 1.4 mmol/L 0.4-2.0 Lactic A blayne Sepsis Protocol [place]AN ([facility]) ID Date Data Source [id number] 01/22/2020 07:58:00 AM EST MARJORIE ([facility]) Name Value Range Interpretation Code Description Data Adriana rce(s) Supporting Document(s) red blood count 4.50 10 4.30-6.10 Red Blood Count ATHE ([facility]) white blood count 6.6 10 4.0-10.0 White Blood Count [place] ([facility]) hematocrit 39.9 % 42.0-52.0 Below low normal Hematocrit MARJORIE ( [facility]) hemoglobin 13.5 g/dL 13.5-17.5 Hemoglobin MARJORIE ([facility]) mean corpuscular volume 88.7 fL 80.0-96.0 Mean Corpusc ular Volume MARJORIE ([facility]) mean corpuscular hemoglobin 30.0 pg 27.0-33.0 Mean Cor puscular Hemoglobin MARJORIE ([facility]) red cell distribution width 12.5 % 11.5-14.5 Red Cell Distribution Width MARJORIE ([facility]) mean corpuscular HGB conc 33.8 g/dL 32.0-36.5 Mean Corpu scular HGB Conc MARJORIE ([facility]) nucleated red blood cell % 0.0 % 0-0 Nucleated Red Blood Cell % MARJORIE ([facility]) platelet count, automated 280 10 150-450 Platelet C ount, Automated MARJORIE ([facility]) ID Date Data Source [id number] 01/22/2020 07:58:00 AM EST MARJORIE ([facility]) Name Value Range Interpretation Code Description Data Adriana rce(s) Supporting Document(s) magnesium level 2.0 mg/dL 1.8-2.4 Magnesium Level ATHE NA ([facility]) ID Date Data Source [id number] 01/22/2020 07:58:00 AM EST [place] ([facility]) Name Value Range Interpretation Code Description Data Adriana rce(s) Supporting Document(s) glucose, fasting 87 mg/dL 70-100 Glucose, Fasting AT [facility]) blood urea nitrogen 13 mg/dL 7-18 Blood Urea Nitro gen [place] ([facility]) creatinine for GFR 1.03 mg/dL 0.70-1.30 Creatinine for GF R [place]AN ([facility]) sodium level 137 mEq/L 136-145 Sodium Level [place] (No Replaced by [facility]) glomerular filtration rate > 60.0 >60 Glomerula r Filtration Rate MARJORIE ([facility]) chloride level 104 mEq/L 98-107 Chloride Level [place] ([facility]) potassium serum 3.8 mEq/L 3.5-5.1 Potassium Serum ATHE ([facility]) carbon dioxide level 26 mEq/L 21-32 Carbon Dioxide Level [place] ([facility]) anion gap 7 mEq/L 8-16 Below low normal Anion Gap [place] ( [facility]) calcium level 8.3 mg/dL 8.5-10.1 Below low normal Calcium Level AT [facility]) ID Date Data Source [id number] 01/22/2020 07:58:00 AM EST [facility]) Name Value Range Interpretation Code Description Data Adriana rce(s) Supporting Document(s) lactic acid sepsis protocol 1.4 mmol/L 0.4-2.0 Lactic A blayne Sepsis Protocol MARJORIE ([facility]) ID Date Data Source [id number] 01/22/2020 07:58:00 AM EST MARJORIE ([facility]) Name Value Range Interpretation Code Description Data Adriana rce(s) Supporting Document(s) white blood count 6.6 10 4.0-10.0 White Blood Count MARJORIE ([facility]) red blood count 4.50 10 4.30-6.10 Red Blood Count ATHE ([facility]) hemoglobin 13.5 g/dL 13.5-17.5 Hemoglobin AMRJORIE ([facility]) mean corpuscular volume 88.7 fL 80.0-96.0 Mean Corpusc ular Volume MARJORIE ([facility]) hematocrit 39.9 % 42.0-52.0 Below low normal Hematocrit MARJORIE ( [facility]) mean corpuscular HGB conc 33.8 g/dL 32.0-36.5 Mean Corpu scular HGB Conc MARJORIE ([facility]) mean corpuscular hemoglobin 30.0 pg 27.0-33.0 Mean Cor puscular Hemoglobin MARJORIE ([facility]) red cell distribution width 12.5 % 11.5-14.5 Red Cell Distribution Width MARJORIE ([facility]) platelet count, automated 280 10 150-450 Platelet C ount, Automated MARJORIE ([facility]) nucleated red blood cell % 0.0 % 0-0 Nucleated Red Blood Cell % MARJORIE ([facility]) ID Date Data Source [id number] 01/22/2020 07:58:00 AM EST MARJORIE ([facility]) Name Value Range Interpretation Code Description Data Adriana rce(s) Supporting Document(s) magnesium level 2.0 mg/dL 1.8-2.4 Magnesium Level ATHE NA ([facility]) ID Date Data Source [id number] 01/22/2020 07:58:00 AM EST [place] ([facility]) Name Value Range Interpretation Code Description Data Adriana rce(s) Supporting Document(s) blood urea nitrogen 13 mg/dL 7-18 Blood Urea Nitro gen MARJORIE ([facility]) glucose, fasting 87 mg/dL 70-100 Glucose, Fasting AT [facility] ([facility]) creatinine for GFR 1.03 mg/dL 0.70-1.30 Creatinine for GF R [place]AN ([facility]) glomerular filtration rate > 60.0 >60 Glomerula r Filtration Rate [place] ([facility]) potassium serum 3.8 mEq/L 3.5-5.1 Potassium Serum ATH NA ([facility]) sodium level 137 mEq/L 136-145 Sodium Level MARJORIE (No Replaced by [facility]) chloride level 104 mEq/L 98-107 Chloride Level [place] ([facility]) anion gap 7 mEq/L 8-16 Below low normal Anion Gap [place] ( [facility]) carbon dioxide level 26 mEq/L 21-32 Carbon Dioxide Level [place] ([facility]) calcium level 8.3 mg/dL 8.5-10.1 Below low normal Calcium Level AT [facility]) ID Date Data Source [id number] 01/22/2020 07:58:00 AM EST [place] ([facility]) Name Value Range Interpretation Code Description Data Adriana rce(s) Supporting Document(s) lactic acid sepsis protocol 1.4 mmol/L 0.4-2.0 Lactic A blayne Sepsis Protocol [place] ([facility]) ID Date Data Source [id number] 01/22/2020 07:58:00 AM EST [place] ([facility]) Name Value Range Interpretation Code Description Data Adriana rce(s) Supporting Document(s) white blood count 6.6 10 4.0-10.0 White Blood Count MARJORIE ([facility]) hemoglobin 13.5 g/dL 13.5-17.5 Hemoglobin [place] ([facility]) hematocrit 39.9 % 42.0-52.0 Below low normal Hematocrit MARJORIE ( [facility]) red blood count 4.50 10 4.30-6.10 Red Blood Count ATHE ([facility]) mean corpuscular volume 88.7 fL 80.0-96.0 Mean Corpusc ular Volume MARJORIE ([facility]) mean corpuscular hemoglobin 30.0 pg 27.0-33.0 Mean Cor puscular Hemoglobin MARJORIE ([facility]) mean corpuscular HGB conc 33.8 g/dL 32.0-36.5 Mean Corpu scular HGB Conc MARJORIE ([facility]) red cell distribution width 12.5 % 11.5-14.5 Red Cell Distribution Width MARJORIE ([facility]) platelet count, automated 280 10 150-450 Platelet C ount, Automated MARJORIE ([facility]) nucleated red blood cell % 0.0 % 0-0 Nucleated Red Blood Cell % MARJORIE ([facility]) ID Date Data Source [id number] 01/22/2020 07:58:00 AM EST [place]AN ([facility]) Name Value Range Interpretation Code Description Data Adriana rce(s) Supporting Document(s) magnesium level 2.0 mg/dL 1.8-2.4 Magnesium Level ATHE ([facility]) ID Date Data Source [id number] 01/22/2020 07:58:00 AM EST MARJORIE ([facility]) Name Value Range Interpretation Code Description Data Adriana rce(s) Supporting Document(s) glucose, fasting 87 mg/dL 70-100 Glucose, Fasting AT [facility] ([facility]) blood urea nitrogen 13 mg/dL 7-18 Blood Urea Nitro gen MARJORIE ([facility]) glomerular filtration rate > 60.0 >60 Glomerula r Filtration Rate MARJORIE ([facility]) sodium level 137 mEq/L 136-145 Sodium Level MARJORIE (No Replaced by [facility]) creatinine for GFR 1.03 mg/dL 0.70-1.30 Creatinine for GF R MARJORIE ([facility]) chloride level 104 mEq/L 98-107 Chloride Level MARJORIE ([facility]) potassium serum 3.8 mEq/L 3.5-5.1 Potassium Serum ATHE NA ([facility]) carbon dioxide level 26 mEq/L 21-32 Carbon Dioxide Level MARJORIE ([facility]) anion gap 7 mEq/L 8-16 Below low normal Anion Gap MARJORIE ( [facility]) calcium level 8.3 mg/dL 8.5-10.1 Below low normal Calcium Level AT NESHA ([facility]) ID Date Data Source [id number] 01/22/2020 07:58:00 AM EST [place] ([facility]) Name Value Range Interpretation Code Description Data Adriana rce(s) Supporting Document(s) lactic acid sepsis protocol 1.4 mmol/L 0.4-2.0 Lactic A blayne Sepsis Protocol [place] ([facility]) ID Date Data Source [id number] 01/22/2020 07:58:00 AM EST [place] ([facility]) Name Value Range Interpretation Code Description Data Adriana rce(s) Supporting Document(s) white blood count 6.6 10 4.0-10.0 White Blood Count MARJORIE ([facility]) red blood count 4.50 10 4.30-6.10 Red Blood Count ATHE ([facility]) hemoglobin 13.5 g/dL 13.5-17.5 Hemoglobin MARJORIE ([facility]) hematocrit 39.9 % 42.0-52.0 Below low normal Hematocrit MARJORIE ( [facility]) mean corpuscular volume 88.7 fL 80.0-96.0 Mean Corpusc ular Volume MARJORIE ([facility]) mean corpuscular HGB conc 33.8 g/dL 32.0-36.5 Mean Corpu scular HGB Conc MARJORIE ([facility]) mean corpuscular hemoglobin 30.0 pg 27.0-33.0 Mean Cor puscular Hemoglobin MARJORIE ([facility]) red cell distribution width 12.5 % 11.5-14.5 Red Cell Distribution Width MARJORIE ([facility]) platelet count, automated 280 10 150-450 Platelet C ount, Automated MARJORIE ([facility]) nucleated red blood cell % 0.0 % 0-0 Nucleated Red Blood Cell % MARJORIE ([facility]) ID Date Data Source [id number] 01/22/2020 07:06:00 AM EST MARJORIE ([facility]) Name Value Range Interpretation Code Description Data Adriana rce(s) Supporting Document(s) bedside glucose 93 mg/dL 70-105 Bedside Glucose ATHRoselia CHAPA ([facility]) ID Date Data Source [id number] 01/22/2020 07:06:00 AM EST MARJORIE ([facility]) Name Value Range Interpretation Code Description Data Adriana rce(s) Supporting Document(s) bedside glucose 93 mg/dL 70-105 Bedside Glucose ATHE NA ([facility]) ID Date Data Source [id number] 01/22/2020 07:06:00 AM EST MARJORIE ([facility]) Name Value Range Interpretation Code Description Data Adriana rce(s) Supporting Document(s) bedside glucose 93 mg/dL 70-105 Bedside Glucose ATHE NA ([facility]) ID Date Data Source [id number] 01/22/2020 07:06:00 AM EST MARJORIE ([facility]) Name Value Range Interpretation Code Description Data Adriana rce(s) Supporting Document(s) bedside glucose 93 mg/dL 70-105 Bedside Glucose ATHE NA ([facility]) ID Date Data Source [id number] 01/22/2020 07:06:00 AM EST MARJORIE ([facility]) Name Value Range Interpretation Code Description Data Adriana rce(s) Supporting Document(s) bedside glucose 93 mg/dL 70-105 Bedside Glucose ATHRoselia NA ([facility]) ID Date Data Source [id number] 01/21/2020 11:46:00 PM EST MARJORIE ([facility]) Name Value Range Interpretation Code Description Data Adriana rce(s) Supporting Document(s) lactic acid level, lactate 2.1 mmol/L 0.4-2.0 Above high nor mal Lactic Acid Level, Lactate MARJORIE ([facility]) ID Date Data Source [id number] 01/21/2020 11:46:00 PM EST MARJORIE ([facility]) Name Value Range Interpretation Code Description Data Adriana rce(s) Supporting Document(s) lactic acid level, lactate 2.1 mmol/L 0.4-2.0 Above high nor mal Lactic Acid Level, Lactate MARJORIE ([facility]) ID Date Data Source [id number] 01/21/2020 11:46:00 PM EST MARJORIE ([facility]) Name Value Range Interpretation Code Description Data Adriana rce(s) Supporting Document(s) lactic acid level, lactate 2.1 mmol/L 0.4-2.0 Above high nor mal Lactic Acid Level, Lactate MARJORIE ([facility]) ID Date Data Source [id number] 01/21/2020 11:46:00 PM EST MARJORIE ([facility]) Name Value Range Interpretation Code Description Data Adriana rce(s) Supporting Document(s) lactic acid level, lactate 2.1 mmol/L 0.4-2.0 Above high nor mal Lactic Acid Level, Lactate MARJORIE ([facility]) ID Date Data Source [id number] 01/21/2020 11:46:00 PM EST MARJORIE ([facility]) Name Value Range Interpretation Code Description Data Adriana rce(s) Supporting Document(s) lactic acid level, lactate 2.1 mmol/L 0.4-2.0 Above high nor mal Lactic Acid Level, Lactate MARJORIE ([facility]) ID Date Data Source [id number] 01/21/2020 09:03:00 PM EST MARJORIE ([facility]) Name Value Range Interpretation Code Description Data Adriana rce(s) Supporting Document(s) bedside glucose 88 mg/dL 70-105 Bedside Glucose ATHE NA ([facility]) ID Date Data Source [id number] 01/21/2020 09:03:00 PM EST MARJORIE ([facility]) Name Value Range Interpretation Code Description Data Adriana rce(s) Supporting Document(s) bedside glucose 88 mg/dL 70-105 Bedside Glucose ATHE NA ([facility]) ID Date Data Source [id number] 01/21/2020 09:03:00 PM EST MARJORIE ([facility]) Name Value Range Interpretation Code Description Data Adriana rce(s) Supporting Document(s) bedside glucose 88 mg/dL 70-105 Bedside Glucose ATHE NA ([facility]) ID Date Data Source [id number] 01/21/2020 09:03:00 PM EST MARJORIE ([facility]) Name Value Range Interpretation Code Description Data Adriana rce(s) Supporting Document(s) bedside glucose 88 mg/dL 70-105 Bedside Glucose ATHE NA ([facility]) ID Date Data Source [id number] 01/21/2020 09:03:00 PM EST MARJORIE ([facility]) Name Value Range Interpretation Code Description Data Adriana rce(s) Supporting Document(s) bedside glucose 88 mg/dL 70-105 Bedside Glucose ATHE NA ([facility]) ID Date Data Source [id number] 01/21/2020 07:04:00 PM EST MARJORIE ([facility]) Name Value Range Interpretation Code Description Data Adriana rce(s) Supporting Document(s) ID Date Data Source [id number] 01/21/2020 07:04:00 PM EST MARJORIE ([facility]) Name Value Range Interpretation Code Description Data Adriana rce(s) Supporting Document(s) ID Date Data Source [id number] 01/21/2020 07:04:00 PM EST MARJORIE ([facility]) Name Value Range Interpretation Code Description Data Adriana rce(s) Supporting Document(s) ID Date Data Source [id number] 01/21/2020 07:04:00 PM EST MARJORIE ([facility]) Name Value Range Interpretation Code Description Data Adriana rce(s) Supporting Document(s) ID Date Data Source [id number] 01/21/2020 07:04:00 PM EST MARJORIE ([facility]) Name Value Range Interpretation Code Description Data Adriana rce(s) Supporting Document(s) ID Date Data Source [id number] 01/21/2020 06:35:00 PM EST MARJORIE ([facility]) Name Value Range Interpretation Code Description Data Adriana rce(s) Supporting Document(s) ID Date Data Source [id number] 01/21/2020 06:35:00 PM EST MARJORIE ([facility]) Name Value Range Interpretation Code Description Data Adriana rce(s) Supporting Document(s) lactic acid sepsis protocol 3.0 mmol/L 0.4-2.0 Above high no rmal Lactic Acid Sepsis Protocol MARJORIE ([facility]) ID Date Data Source [id number] 01/21/2020 06:35:00 PM EST MARJORIE ([facility]) Name Value Range Interpretation Code Description Data Adriana rce(s) Supporting Document(s) triglycerides level 113 mg/dL <150 Triglycerides Le osmar MARJORIE ([facility]) cholesterol level 205 mg/dL <200 Above high normal Cholesterol Level MARJORIE ([facility]) Cholesterol in LDL [Mass/volume] in Serum or Plasma 118 mg/dL <100 Above high normal LDL Cholesterol MARJORIE ([facility]) non-HDL-C 141 mg/dL Non-hdl-c MARJROIE ([facility]) cholesterol risk ratio <5 Cholesterol R isk Ratio MARJORIE ([facility]) HDL cholesterol 64 mg/dL >40 HDL Cholesterol ATHE NA ([facility]) ID Date Data Source [id number] 01/21/2020 06:35:00 PM EST MARJORIE ([facility]) Name Value Range Interpretation Code Description Data Adriana rce(s) Supporting Document(s) Hemoglobin A1c/Hemoglobin.total in Blood 5.5 % Hemoglobin a1C MARJORIE ([facility]) estimated average glucose 111 mg/dL 60-110 Above high norm al Estimated Average Glucose MARJORIE ([facility]) ID Date Data Source [id number] 01/21/2020 06:35:00 PM EST MARJORIE ([facility]) Name Value Range Interpretation Code Description Data Adriana rce(s) Supporting Document(s) ID Date Data Source [id number] 01/21/2020 06:35:00 PM EST MARJORIE ([facility]) Name Value Range Interpretation Code Description Data Adriana rce(s) Supporting Document(s) lactic acid sepsis protocol 3.0 mmol/L 0.4-2.0 Above high no rmal Lactic Acid Sepsis Protocol MARJORIE ([facility]) ID Date Data Source [id number] 01/21/2020 06:35:00 PM EST MARJORIE ([facility]) Name Value Range Interpretation Code Description Data Adriana rce(s) Supporting Document(s) triglycerides level 113 mg/dL <150 Triglycerides Le osmar MARJORIE ([facility]) Cholesterol in LDL [Mass/volume] in Serum or Plasma 118 mg/dL <100 Above high normal LDL Cholesterol MARJORIE ([facility]) HDL cholesterol 64 mg/dL >40 HDL Cholesterol ATHE NA ([facility]) non-HDL-C 141 mg/dL Non-hdl-c MARJORIE ([facility]) cholesterol level 205 mg/dL <200 Above high normal Cholesterol Level MARJORIE ([facility]) cholesterol risk ratio <5 Cholesterol R isk Ratio MARJORIE ([facility]) ID Date Data Source [id number] 01/21/2020 06:35:00 PM EST MARJORIE ([facility]) Name Value Range Interpretation Code Description Data Adriana rce(s) Supporting Document(s) Hemoglobin A1c/Hemoglobin.total in Blood 5.5 % Hemoglobin a1C MARJ[place]IE ([facility]) estimated average glucose 111 mg/dL 60-110 Above high norm al Estimated Average Glucose MARJORIE ([facility]) ID Date Data Source [id number] 01/21/2020 06:35:00 PM EST MARJORIE ([facility]) Name Value Range Interpretation Code Description Data Adriana rce(s) Supporting Document(s) ID Date Data Source [id number] 01/21/2020 06:35:00 PM EST MARJORIE ([facility]) Name Value Range Interpretation Code Description Data Adriana rce(s) Supporting Document(s) lactic acid sepsis protocol 3.0 mmol/L 0.4-2.0 Above high no rmal Lactic Acid Sepsis Protocol MARJORIE ([facility]) ID Date Data Source [id number] 01/21/2020 06:35:00 [facility] Name Value Range Interpretation Code Description Data Adriana rce(s) Supporting Document(s) triglycerides level 113 mg/dL <150 Triglycerides Le osmar MARJORIE ([facility]) Cholesterol in LDL [Mass/volume] in Serum or Plasma 118 mg/dL <100 Above high normal LDL Cholesterol MARJORIE ([facility]) cholesterol level 205 mg/dL <200 Above high normal Cholesterol Level MARJORIE ([facility]) non-HDL-C 141 mg/dL Non-hdl-c MARJORIE ([facility]) HDL cholesterol 64 mg/dL >40 HDL Cholesterol ATHE NA ([facility]) cholesterol risk ratio <5 Cholesterol R isk Ratio MARJORIE ([facility]) ID Date Data Source [id number] 01/21/2020 06:35:00 PM EST MARJORIE ([facility]) Name Value Range Interpretation Code Description Data Adriana rce(s) Supporting Document(s) Hemoglobin A1c/Hemoglobin.total in Blood 5.5 % Hemoglobin a1C MAR[place]IE ([facility]) estimated average glucose 111 mg/dL 60-110 Above high norm al Estimated Average Glucose MAR[place]IE ([facility]) ID Date Data Source [id number] 01/21/2020 06:35:00 PM EST MARJ[place]IE ([facility]) Name Value Range Interpretation Code Description Data Adriana rce(s) Supporting Document(s) ID Date Data Source [id number] 01/21/2020 06:35:00 PM EST MARJ[place]IE ([facility]) Name Value Range Interpretation Code Description Data Adriana rce(s) Supporting Document(s) lactic acid sepsis protocol 3.0 mmol/L 0.4-2.0 Above high no rmal Lactic Acid Sepsis Protocol MARJ[place]IE ([facility]) ID Date Data Source [id number] 01/21/2020 06:35:00 PM EST MARJ[place]IE ([facility]) Name Value Range Interpretation Code Description Data Adriana rce(s) Supporting Document(s) triglycerides level 113 mg/dL <150 Triglycerides Le osmar MARJORIE ([facility]) Cholesterol in LDL [Mass/volume] in Serum or Plasma 118 mg/dL <100 Above high normal LDL Cholesterol MARJORIE ([facility]) non-HDL-C 141 mg/dL Non-hdl-c MARJORIE ([facility]) cholesterol level 205 mg/dL <200 Above high normal Cholesterol Level MARJORIE ([facility]) HDL cholesterol 64 mg/dL >40 HDL Cholesterol ATHE NA ([facility]) cholesterol risk ratio <5 Cholesterol R isk Ratio MARJORIE ([facility]) ID Date Data Source [id number] 01/21/2020 06:35:00 PM EST MARJ[place]IE ([facility]) Name Value Range Interpretation Code Description Data Adriana rce(s) Supporting Document(s) estimated average glucose 111 mg/dL 60-110 Above high norm al Estimated Average Glucose MARJORIE ([facility]) Hemoglobin A1c/Hemoglobin.total in Blood 5.5 % Hemoglobin a1C MAR[place]IE ([facility]) ID Date Data Source [id number] 01/21/2020 06:35:00 PM EST MARJORIE ([facility]) Name Value Range Interpretation Code Description Data Adriana rce(s) Supporting Document(s) ID Date Data Source [id number] 01/21/2020 06:35:00 PM EST MARJORIE ([facility]) Name Value Range Interpretation Code Description Data Adriana rce(s) Supporting Document(s) lactic acid sepsis protocol 3.0 mmol/L 0.4-2.0 Above high no rmal Lactic Acid Sepsis Protocol MARJ[place]IE ([facility]) ID Date Data Source [id number] 01/21/2020 06:35:00 PM EST MARJ[place]IE ([facility]) Name Value Range Interpretation Code Description Data Adriana rce(s) Supporting Document(s) HDL cholesterol 64 mg/dL >40 HDL Cholesterol ATHE NA ([facility]) triglycerides level 113 mg/dL <150 Triglycerides Le osmar MARJORIE ([facility]) cholesterol level 205 mg/dL <200 Above high normal Cholesterol Level MARJORIE ([facility]) Cholesterol in LDL [Mass/volume] in Serum or Plasma 118 mg/dL <100 Above high normal LDL Cholesterol MARJORIE ([facility]) cholesterol risk ratio <5 Cholesterol R isk Ratio MARJORIE ([facility]) non-HDL-C 141 mg/dL Non-hdl-c MARJORIE ([facility]) ID Date Data Source [id number] 01/21/2020 06:35:00 PM EST [place] ([facility]) Name Value Range Interpretation Code Description Data Adriana rce(s) Supporting Document(s) estimated average glucose 111 mg/dL 60-110 Above high norm al Estimated Average Glucose MARJORIE ([facility]) Hemoglobin A1c/Hemoglobin.total in Blood 5.5 % Hemoglobin a1C [place] ([facility]) ID Date Data Source [id number] 01/21/2020 04:39:00 PM EST [place] ([facility]) Name Value Range Interpretation Code Description Data Adriana rce(s) Supporting Document(s) sars covid-19 amplification negative negative Sars Cov id-19 Amplification [facility]) ID Date Data Source [id number] 01/21/2020 04:39:00 PM EST [place] ([facility]) Name Value Range Interpretation Code Description Data Adriana rce(s) Supporting Document(s) sars covid-19 amplification negative negative Sars Cov id-19 Amplification MARJORIE ([facility]) ID Date Data Source [id number] 01/21/2020 04:39:00 PM EST [facility]) Name Value Range Interpretation Code Description Data Adriana rce(s) Supporting Document(s) sars covid-19 amplification negative negative Sars Cov id-19 Amplification [facility]) ID Date Data Source [id number] 01/21/2020 04:39:00 PM EST MARJORIE ([facility]) Name Value Range Interpretation Code Description Data Adriana rce(s) Supporting Document(s) sars covid-19 amplification negative negative Sars Cov id-19 Amplification [place] ([facility]) ID Date Data Source [id number] 01/21/2020 04:39:00 PM EST MARJORIE ([facility]) Name Value Range Interpretation Code Description Data Adriana rce(s) Supporting Document(s) sars covid-19 amplification negative negative Sars Cov id-19 Amplification [facility]) ID Date Data Source [id number] 01/21/2020 04:39:00 PM EST [facility] Name Value Range Interpretation Code Description Data Adriana rce(s) Supporting Document(s) SARS coronavirus 2 RNA [Presence] in Res piratory specimen by BINA with probe detection [facility] This lab was ordered by [facility] a nd reported by [facility]. ID Date Data Source [id number] 01/21/2020 02:10:00 PM EST [facility]) Name Value Range Interpretation Code Description Data Adriana rce(s) Supporting Document(s) lactic acid sepsis protocol 3.7 mmol/L 0.4-2.0 Above high no rmal Lactic Acid Sepsis Protocol [facility]) ID Date Data Source [id number] 01/21/2020 02:10:00 PM EST MARJORIE ([facility]) Name Value Range Interpretation Code Description Data Adriana rce(s) Supporting Document(s) lactic acid sepsis protocol 3.7 mmol/L 0.4-2.0 Above high no rmal Lactic Acid Sepsis Protocol [facility]) ID Date Data Source [id number] 01/21/2020 02:10[facility]00 [facility] Name Value Range Interpretation Code Description Data Adriana rce(s) Supporting Document(s) lactic acid sepsis protocol 3.7 mmol/L 0.4-2.0 Above high no rmal Lactic Acid Sepsis Protocol MARJORIE ([facility]) ID Date Data Source [id number] 01/21/2020 02:10:00 PM EST MARJORIE ([facility]) Name Value Range Interpretation Code Description Data Adriana rce(s) Supporting Document(s) lactic acid sepsis protocol 3.7 mmol/L 0.4-2.0 Above high no rmal Lactic Acid Sepsis Protocol MARJORIE ([facility]) ID Date Data Source [id number] 01/21/2020 02:10:00 PM EST MAR[place]IE ([facility]) Name Value Range Interpretation Code Description Data Adriana rce(s) Supporting Document(s) lactic acid sepsis protocol 3.7 mmol/L 0.4-2.0 Above high no rmal Lactic Acid Sepsis Protocol MARJORIE ([facility]) ID Date Data Source [id number] 01/21/2020 02:09:00 PM EST MARJORIE ([facility]) Name Value Range Interpretation Code Description Data Adriana rce(s) Supporting Document(s) erythrocyte sedimentation rate 5 mm/HR 0-15 Eryth rocyte Sedimentation Rate MARJORIE ([facility]) ID Date Data Source [id number] 01/21/2020 02:09:00 PM EST MARJORIE ([facility]) Name Value Range Interpretation Code Description Data Adriana rce(s) Supporting Document(s) white blood count 9.1 10 4.0-10.0 White Blood Count MARJORIE ([facility]) hematocrit 45.6 % 42.0-52.0 Hematocrit MARJ[place]IE ([facility]) hemoglobin 15.4 g/dL 13.5-17.5 Hemoglobin MARJORIE ([facility]) red blood count 5.30 10 4.30-6.10 Red Blood Count ATHE ([facility]) red cell distribution width 12.4 % 11.5-14.5 Red Cell Distribution Width MARJORIE ([facility]) mean corpuscular hemoglobin 29.1 pg 27.0-33.0 Mean Cor puscular Hemoglobin MARJORIE ([facility]) mean corpuscular HGB conc 33.8 g/dL 32.0-36.5 Mean Corpu scular HGB Conc MARJORIE ([facility]) mean corpuscular volume 86.0 fL 80.0-96.0 Mean Corpusc ular Volume MARJORIE ([facility]) platelet count, automated 378 10 150-450 Platelet C ount, Automated MARJORIE ([facility]) mono % 6.9 % 0.0-5.0 Above high normal Leslie % MARJORIE ([facility]) neutrophils % 65.4 % 36.0-66.0 Neutrophils % MARJOIRE ( [facility]) lymph % 25.8 % 24.0-44.0 Lymph % [place] ([facility]) immature granulocyte % 0.4 % 0-3.0 Immature Gran ulocyte % MARJORIE ([facility]) baso % 0.5 % 0.0-1.0 Baso % MARJORIE ([facility]) eos % 1.0 % 0.0-3.0 Eos % MARJ[place]IE ([facility]) nucleated red blood cell % 0.0 % 0-0 Nucleated Red Blood Cell % MARJORIE ([facility]) neutrophils # 6.0 10 1.5-8.5 Neutrophils # MARJORIE ( [facility]) lymph # 2.4 10 1.5-5.0 Lymph # MARJ[place]IE ([facility]) mono # 0.6 10 0.0-0.8 Leslie # MARJORIE ([facility]) eos # 0.1 10 0.0-0.5 Eos # MAR[place]IE ([facility]) baso # 0.1 10 0.0-0.2 Baso # MARJORIE ([facility]) ID Date Data Source [id number] 01/21/2020 02:09:00 PM EST MARJORIE ([facility]) Name Value Range Interpretation Code Description Data Adriana rce(s) Supporting Document(s) prothrombin time 12.9 seconds 12.5-14.3 Prothrombin Time MARJ[place]IE ([facility]) INR Inr MARJ[place]IE ([facility]) partial thromboplastin time 29.2 seconds 24.2-38.5 Partial Thromboplastin Time MAR[place]IE ([facility]) ID Date Data Source [id number] 01/21/2020 02:09:00 PM EST MARJ[place]IE ([facility]) Name Value Range Interpretation Code Description Data Adriana rce(s) Supporting Document(s) C reactive protein quantitativ 0.30 mg/dL 0.00-0.30 C Reactive Protein Quantitativ MARJORIE ([facility]) ID Date Data Source [id number] 01/21/2020 02:09:00 PM EST MARJ[place]IE ([facility]) Name Value Range Interpretation Code Description Data Adriana rce(s) Supporting Document(s) lipase 94 U/L 73-393 Lipase MARJORIE ([facility]) ID Date Data Source [id number] 01/21/2020 02:09:00 PM EST MARJ[place]IE ([facility]) Name Value Range Interpretation Code Description Data Adriana rce(s) Supporting Document(s) blood urea nitrogen 15 mg/dL 7-18 Blood Urea Nitro gen MARJORIE ([facility]) glucose, fasting 113 mg/dL 70-100 Above high normal Glucose, Fas ting MARJORIE ([facility]) creatinine for GFR 1.05 mg/dL 0.70-1.30 Creatinine for GF R MARJORIE ([facility]) glomerular filtration rate > 60.0 >60 Glomerula r Filtration Rate MARJORIE ([facility]) sodium level 138 mEq/L 136-145 Sodium Level MARJORIE (No Replaced by [facility]) potassium serum 4.9 mEq/L 3.5-5.1 Potassium Serum ATHE NA ([facility]) chloride level 103 mEq/L 98-107 Chloride Level MARJORIE ([facility]) carbon dioxide level 22 mEq/L 21-32 Carbon Dioxide Level MARJ[place]IE ([facility]) calcium level 9.2 mg/dL 8.5-10.1 Calcium Level MARJORIE ( [facility]) anion gap 13 mEq/L 8-16 Anion Gap MAR[place]IE ([facility]) ID Date Data Source [id number] 01/21/2020 02:09:00 PM EST [place]IE ([facility]) Name Value Range Interpretation Code Description Data Adriana rce(s) Supporting Document(s) alkaline phosphatase 105 U/L 45-117 Alkaline Phosph atase MAR[place]IE ([facility]) ALT/SGPT 38 U/L 12-78 ALT/SGPT [place] ([facility]) AST/SGOT 10 U/L 7-37 AST/SGOT [place]IE ([facility]) bilirubin,direct < 0.1 0.0-0.2 Bilirubin,direct AT [facility] ([facility]) total protein 7.6 gm/dL 6.4-8.2 Total Protein MARJORIE ( [facility]) bilirubin,total 0.3 mg/dL 0.2-1.0 Bilirubin,total ATHE [facility]) albumin 3.7 gm/dL 3.2-5.2 Albumin MAR[place]IE ([facility]) albumin/globulin ratio Albumin/globu karina Ratio MARJ[place]IE ([facility]) ID Date Data Source [id number] 01/21/2020 02:09:00 PM EST [place]IE ([facility]) Name Value Range Interpretation Code Description Data Adriana rce(s) Supporting Document(s) CPK creatine phosphokinase 85 U/L 39-308 CPK Creat ine Phosphokinase MAR[place]IE ([facility]) CK-mb value mass 2.2 NG/mL <3.6 CK-mb Value Mass AT [facility] ([facility]) troponin I < 0.02 < 0.10 Troponin I [place]IE ([facility]) mb/CK relative index < or =4 mb/CK Relative Index [place]IE ([facility]) ID Date Data Source [id number] 01/21/2020 02:09:00 PM EST [place]IE ([facility]) Name Value Range Interpretation Code Description Data Adriana rce(s) Supporting Document(s) erythrocyte sedimentation rate 5 mm/HR 0-15 Eryth rocyte Sedimentation Rate MAR[place]IE ([facility]) ID Date Data Source [id number] 01/21/2020 02:09:00 PM EST [place]IE ([facility]) Name Value Range Interpretation Code Description Data Adriana rce(s) Supporting Document(s) white blood count 9.1 10 4.0-10.0 White Blood Count MAR[place]IE ([facility]) hemoglobin 15.4 g/dL 13.5-17.5 Hemoglobin [place]IE ([facility]) red blood count 5.30 10 4.30-6.10 Red Blood Count ATHE ([facility]) hematocrit 45.6 % 42.0-52.0 Hematocrit MAR[place]IE ([facility]) mean corpuscular hemoglobin 29.1 pg 27.0-33.0 Mean Cor puscular Hemoglobin MAR[place]IE ([facility]) mean corpuscular volume 86.0 fL 80.0-96.0 Mean Corpusc ular Volume MAR[place]IE ([facility]) mean corpuscular HGB conc 33.8 g/dL 32.0-36.5 Mean Corpu scular HGB Conc MAR[place]IE ([facility]) red cell distribution width 12.4 % 11.5-14.5 Red Cell Distribution Width [place]IE ([facility]) platelet count, automated 378 10 150-450 Platelet C ount, Automated [place] ([facility]) neutrophils % 65.4 % 36.0-66.0 Neutrophils % MAR[place]IE ( [facility]) baso % 0.5 % 0.0-1.0 Baso % [place]IE ([facility]) eos % 1.0 % 0.0-3.0 Eos % [place]IE ([facility]) mono % 6.9 % 0.0-5.0 Above high normal Leslie % MAR[place]IE ([facility]) lymph % 25.8 % 24.0-44.0 Lymph % [place] ([facility]) nucleated red blood cell % 0.0 % 0-0 Nucleated Red Blood Cell % [place]IE ([facility]) neutrophils # 6.0 10 1.5-8.5 Neutrophils # MARJ[place]IE ( [facility]) immature granulocyte % 0.4 % 0-3.0 Immature Gran ulocyte % [place]IE ([facility]) lymph # 2.4 10 1.5-5.0 Lymph # [place]IE ([facility]) mono # 0.6 10 0.0-0.8 Leslie # [place]IE ([facility]) eos # 0.1 10 0.0-0.5 Eos # [place]IE ([facility]) baso # 0.1 10 0.0-0.2 Baso # [place]IE ([facility]) ID Date Data Source [id number] 01/21/2020 02:09:00 PM EST [place] ([facility]) Name Value Range Interpretation Code Description Data Adriana rce(s) Supporting Document(s) prothrombin time 12.9 seconds 12.5-14.3 Prothrombin Time [place] ([facility]) partial thromboplastin time 29.2 seconds 24.2-38.5 Partial Thromboplastin Time [place] ([facility]) INR Inr [place]IE ([facility]) ID Date Data Source [id number] 01/21/2020 02:09:00 PM EST [place] ([facility]) Name Value Range Interpretation Code Description Data Adriana rce(s) Supporting Document(s) C reactive protein quantitativ 0.30 mg/dL 0.00-0.30 C Reactive Protein Quantitativ [place] ([facility]) ID Date Data Source [id number] 01/21/2020 02:09:00 PM EST [place] ([facility]) Name Value Range Interpretation Code Description Data Adriana rce(s) Supporting Document(s) lipase 94 U/L 73-393 Lipase [place]IE ([facility]) ID Date Data Source [id number] 01/21/2020 02:09:00 PM EST [place] ([facility]) Name Value Range Interpretation Code Description Data Adriana rce(s) Supporting Document(s) glucose, fasting 113 mg/dL 70-100 Above high normal Glucose, Fas ting [place]IE ([facility]) blood urea nitrogen 15 mg/dL 7-18 Blood Urea Nitro gen [place] ([facility]) creatinine for GFR 1.05 mg/dL 0.70-1.30 Creatinine for GF R [place] ([facility]) glomerular filtration rate > 60.0 >60 Glomerula r Filtration Rate [place]IE ([facility]) sodium level 138 mEq/L 136-145 Sodium Level MARJ[place]IE (No Replaced by [facility]) chloride level 103 mEq/L 98-107 Chloride Level [place] ([facility]) potassium serum 4.9 mEq/L 3.5-5.1 Potassium Serum ATHE NA ([facility]) anion gap 13 mEq/L 8-16 Anion Gap [place] ([facility]) carbon dioxide level 22 mEq/L 21-32 Carbon Dioxide Level [place] ([facility]) calcium level 9.2 mg/dL 8.5-10.1 Calcium Level MARJ[place]IE ( [facility]) ID Date Data Source [id number] 01/21/2020 02:09:00 PM EST [place] ([facility]) Name Value Range Interpretation Code Description Data Adriana rce(s) Supporting Document(s) AST/SGOT 10 U/L 7-37 AST/SGOT [place] ([facility]) ALT/SGPT 38 U/L 12-78 ALT/SGPT [place] ([facility]) bilirubin,direct < 0.1 0.0-0.2 Bilirubin,direct AT [facility] ([facility]) alkaline phosphatase 105 U/L 45-117 Alkaline Phosph atase [place] ([facility]) bilirubin,total 0.3 mg/dL 0.2-1.0 Bilirubin,total ATHE NA ([facility]) albumin 3.7 gm/dL 3.2-5.2 Albumin [place] ([facility]) albumin/globulin ratio Albumin/globu karina Ratio [place] ([facility]) total protein 7.6 gm/dL 6.4-8.2 Total Protein [place] ( [facility]) ID Date Data Source [id number] 01/21/2020 02:09:00 PM EST [place] ([facility]) Name Value Range Interpretation Code Description Data Adriana rce(s) Supporting Document(s) CPK creatine phosphokinase 85 U/L 39-308 CPK Creat ine Phosphokinase [place] ([facility]) CK-mb value mass 2.2 NG/mL <3.6 CK-mb Value Mass AT [facility] ([facility]) mb/CK relative index < or =4 mb/CK Relative Index [place] ([facility]) troponin I < 0.02 < 0.10 Troponin I [place] ([facility]) ID Date Data Source [id number] 01/21/2020 02:09:00 PM EST [place] ([facility]) Name Value Range Interpretation Code Description Data Adriana rce(s) Supporting Document(s) erythrocyte sedimentation rate 5 mm/HR 0-15 Eryth rocyte Sedimentation Rate [place] ([facility]) ID Date Data Source [id number] 01/21/2020 02:09:00 PM EST [place] ([facility]) Name Value Range Interpretation Code Description Data Adriana rce(s) Supporting Document(s) hematocrit 45.6 % 42.0-52.0 Hematocrit [place] ([facility]) white blood count 9.1 10 4.0-10.0 White Blood Count [place] ([facility]) red blood count 5.30 10 4.30-6.10 Red Blood Count ATHE NA ([facility]) hemoglobin 15.4 g/dL 13.5-17.5 Hemoglobin MARJORIE ([facility]) mean corpuscular volume 86.0 fL 80.0-96.0 Mean Corpusc ular Volume [facility] ([facility]) mean corpuscular HGB conc 33.8 g/dL 32.0-36.5 Mean Corpu scular HGB Conc [place] ([facility]) mean corpuscular hemoglobin 29.1 pg 27.0-33.0 Mean Cor puscular Hemoglobin [place] ([facility]) platelet count, automated 378 10 150-450 Platelet C ount, Automated [place] ([facility]) red cell distribution width 12.4 % 11.5-14.5 Red Cell Distribution Width [place] ([facility]) lymph % 25.8 % 24.0-44.0 Lymph % [place] ([facility]) neutrophils % 65.4 % 36.0-66.0 Neutrophils % [place] ( [facility]) eos % 1.0 % 0.0-3.0 Eos % [place] ([facility]) immature granulocyte % 0.4 % 0-3.0 Immature Gran ulocyte % [place] ([facility]) baso % 0.5 % 0.0-1.0 Baso % [place] ([facility]) mono % 6.9 % 0.0-5.0 Above high normal Leslie % [place] ([facility]) mono # 0.6 10 0.0-0.8 Leslie # [facility] ([facility]) lymph # 2.4 10 1.5-5.0 Lymph # [place] ([facility]) neutrophils # 6.0 10 1.5-8.5 Neutrophils # [place] ( [facility]) nucleated red blood cell % 0.0 % 0-0 Nucleated Red Blood Cell % [facility] ([facility]) baso # 0.1 10 0.0-0.2 Baso # [place] ([facility]) eos # 0.1 10 0.0-0.5 Eos # [place] ([facility]) ID Date Data Source [id number] 01/21/2020 02:09:00 PM EST [place] ([facility]) Name Value Range Interpretation Code Description Data Adriana rce(s) Supporting Document(s) partial thromboplastin time 29.2 seconds 24.2-38.5 Partial Thromboplastin Time [place] ([facility]) prothrombin time 12.9 seconds 12.5-14.3 Prothrombin Time [place] ([facility]) INR Inr [facility] ([facility]) ID Date Data Source [id number] 01/21/2020 02:09:00 PM EST [place] ([facility]) Name Value Range Interpretation Code Description Data Adriana rce(s) Supporting Document(s) C reactive protein quantitativ 0.30 mg/dL 0.00-0.30 C Reactive Protein Quantitativ [facility] ([facility]) ID Date Data Source [id number] 01/21/2020 02:09:00 PM EST [place] ([facility]) Name Value Range Interpretation Code Description Data Adriana rce(s) Supporting Document(s) lipase 94 U/L 73-393 Lipase [facility] ([facility]) ID Date Data Source [id number] 01/21/2020 02:09:00 PM EST [place] ([facility]) Name Value Range Interpretation Code Description Data Adriana rce(s) Supporting Document(s) glucose, fasting 113 mg/dL 70-100 Above high normal Glucose, Fas ting [place] ([facility]) blood urea nitrogen 15 mg/dL 7-18 Blood Urea Nitro gen [place] ([facility]) sodium level 138 mEq/L 136-145 Sodium Level [facility]IE (No Replaced by [facility]) creatinine for GFR 1.05 mg/dL 0.70-1.30 Creatinine for GF R [place] ([facility]) glomerular filtration rate > 60.0 >60 Glomerula r Filtration Rate [place] ([facility]) chloride level 103 mEq/L 98-107 Chloride Level [facility] ([facility]) potassium serum 4.9 mEq/L 3.5-5.1 Potassium Serum ATHE ([facility]) carbon dioxide level 22 mEq/L 21-32 Carbon Dioxide Level [place] ([facility]) calcium level 9.2 mg/dL 8.5-10.1 Calcium Level [place] ( [facility]) anion gap 13 mEq/L 8-16 Anion Gap [facility] ([facility]) ID Date Data Source [id number] 01/21/2020 02:09:00 PM EST [place] ([facility]) Name Value Range Interpretation Code Description Data Adriana rce(s) Supporting Document(s) AST/SGOT 10 U/L 7-37 AST/SGOT [place] ([facility]) ALT/SGPT 38 U/L 12-78 ALT/SGPT [place] ([facility]) alkaline phosphatase 105 U/L 45-117 Alkaline Phosph atase [place] ([facility]) bilirubin,total 0.3 mg/dL 0.2-1.0 Bilirubin,total AT[facility] ([facility]) total protein 7.6 gm/dL 6.4-8.2 Total Protein [place] ( [facility]) bilirubin,direct < 0.1 0.0-0.2 Bilirubin,direct AT [facility] ([facility]) albumin/globulin ratio Albumin/globu karina Ratio [facility] ([facility]) albumin 3.7 gm/dL 3.2-5.2 Albumin [facility] ([facility]) ID Date Data Source [id number] 01/21/2020 02:09:00 PM EST [place] ([facility]) Name Value Range Interpretation Code Description Data Adriana rce(s) Supporting Document(s) CK-mb value mass 2.2 NG/mL <3.6 CK-mb Value Mass AT [facility]) CPK creatine phosphokinase 85 U/L 39-308 CPK Creat ine Phosphokinase [place] ([facility]) mb/CK relative index < or =4 mb/CK Relative Index [place] ([facility]) troponin I < 0.02 < 0.10 Troponin I [place] ([facility]) ID Date Data Source [id number] 01/21/2020 02:09:00 PM EST [place] ([facility]) Name Value Range Interpretation Code Description Data Adriana rce(s) Supporting Document(s) erythrocyte sedimentation rate 5 mm/HR 0-15 Eryth rocyte Sedimentation Rate [facility] ([facility]) ID Date Data Source [id number] 01/21/2020 02:09:00 PM EST [place] ([facility]) Name Value Range Interpretation Code Description Data Adriana rce(s) Supporting Document(s) red blood count 5.30 10 4.30-6.10 [facility] white blood count 9.1 10 4.0-10.0 White Blood Count [place] ([facility]) mean corpuscular volume 86.0 fL 80.0-96.0 Mean Corpusc ular Volume [facility] ([facility]) hemoglobin 15.4 g/dL 13.5-17.5 Hemoglobin [place] ([facility]) mean corpuscular hemoglobin 29.1 pg 27.0-33.0 Mean Cor puscular Hemoglobin [facility] ([facility]) hematocrit 45.6 % 42.0-52.0 Hematocrit [place] ([facility]) neutrophils % 65.4 % 36.0-66.0 Neutrophils % [place] ( [facility]) platelet count, automated 378 10 150-450 Platelet C ount, Automated [place] ([facility]) red cell distribution width 12.4 % 11.5-14.5 Red Cell Distribution Width [facility] ([facility]) mean corpuscular HGB conc 33.8 g/dL 32.0-36.5 Mean Corpu scular HGB Conc [facility] ([facility]) mono % 6.9 % 0.0-5.0 Above high normal Leslie % [facility] ([facility]) baso % 0.5 % 0.0-1.0 Baso % [facility] ([facility]) eos % 1.0 % 0.0-3.0 Eos % [place] ([facility]) lymph % 25.8 % 24.0-44.0 Lymph % [facility] ([facility]) neutrophils # 6.0 10 1.5-8.5 Neutrophils # [place] ( [facility]) immature granulocyte % 0.4 % 0-3.0 Immature Gran ulocyte % [place] ([facility]) lymph # 2.4 10 1.5-5.0 Lymph # [place] ([facility]) nucleated red blood cell % 0.0 % 0-0 Nucleated Red Blood Cell % [place] ([facility]) eos # 0.1 10 0.0-0.5 Eos # [place] ([facility]) mono # 0.6 10 0.0-0.8 Leslie # [facility] ([facility]) baso # 0.1 10 0.0-0.2 Baso # [facility] ([facility]) ID Date Data Source [id number] 01/21/2020 02:09:00 PM EST [place] ([facility]) Name Value Range Interpretation Code Description Data Adriana rce(s) Supporting Document(s) prothrombin time 12.9 seconds 12.5-14.3 Prothrombin Time [place] ([facility]) partial thromboplastin time 29.2 seconds 24.2-38.5 Partial Thromboplastin Time [place] ([facility]) INR Inr [facility] ([facility]) ID Date Data Source [id number] 01/21/2020 02:09:00 PM EST [place] ([facility]) Name Value Range Interpretation Code Description Data Adriana rce(s) Supporting Document(s) C reactive protein quantitativ 0.30 mg/dL 0.00-0.30 C Reactive Protein Quantitativ [facility] ([facility]) ID Date Data Source [id number] 01/21/2020 02:09:00 PM EST [place] ([facility]) Name Value Range Interpretation Code Description Data Adriana rce(s) Supporting Document(s) lipase 94 U/L 73-393 Lipase [facility] ([facility]) ID Date Data Source [id number] 01/21/2020 02:09:00 PM EST [place] ([facility]) Name Value Range Interpretation Code Description Data Adriana rce(s) Supporting Document(s) blood urea nitrogen 15 mg/dL 7-18 Blood Urea Nitro gen [place] ([facility]) glucose, fasting 113 mg/dL 70-100 Above high normal Glucose, Fas ting [facility]IE ([facility]) glomerular filtration rate > 60.0 >60 Glomerula r Filtration Rate [place] ([facility]) potassium serum 4.9 mEq/L 3.5-5.1 Potassium Serum ATHE NA ([facility]) creatinine for GFR 1.05 mg/dL 0.70-1.30 Creatinine for GF R [place] ([facility]) sodium level 138 mEq/L 136-145 Sodium Level [facility] ([facility]) carbon dioxide level 22 mEq/L 21-32 Carbon Dioxide Level [place] ([facility]) anion gap 13 mEq/L 8-16 Anion Gap [facility] ([facility]) chloride level 103 mEq/L 98-107 Chloride Level [place] ([facility]) calcium level 9.2 mg/dL 8.5-10.1 Calcium Level [place] ( [facility]) ID Date Data Source [id number] 01/21/2020 02:09:00 PM EST [place] ([facility]) Name Value Range Interpretation Code Description Data Adriana rce(s) Supporting Document(s) AST/SGOT 10 U/L 7-37 AST/SGOT [place] ([facility]) alkaline phosphatase 105 U/L 45-117 Alkaline Phosph atase [place] ([facility]) ALT/SGPT 38 U/L 12-78 ALT/SGPT [place] ([facility]) bilirubin,total 0.3 mg/dL 0.2-1.0 Bilirubin,total ATHE NA ([facility]) bilirubin,direct < 0.1 0.0-0.2 Bilirubin,direct AT [facility] ([facility]) total protein 7.6 gm/dL 6.4-8.2 Total Protein [place] ( [facility]) albumin/globulin ratio Albumin/globu karina Ratio [facility] ([facility]) albumin 3.7 gm/dL 3.2-5.2 Albumin [facility] ([facility]) ID Date Data Source [id number] 01/21/2020 02:09:00 PM EST [place] ([facility]) Name Value Range Interpretation Code Description Data Adriana rce(s) Supporting Document(s) CPK creatine phosphokinase 85 U/L 39-308 CPK Creat ine Phosphokinase [place] ([facility]) mb/CK relative index < or =4 mb/CK Relative Index [facility] ([facility]) troponin I < 0.02 < 0.10 Troponin I [place] ([facility]) CK-mb value mass 2.2 NG/mL <3.6 CK-mb Value Mass AT [facility] ([facility]) ID Date Data Source [id number] 01/21/2020 02:09:00 PM EST [place] ([facility]) Name Value Range Interpretation Code Description Data Adriana rce(s) Supporting Document(s) erythrocyte sedimentation rate 5 mm/HR 0-15 Eryth rocyte Sedimentation Rate [facility] ([facility]) ID Date Data Source [id number] 01/21/2020 02:09:00 PM EST [place] ([facility]) Name Value Range Interpretation Code Description Data Adriana rce(s) Supporting Document(s) red blood count 5.30 10 4.30-6.10 Red Blood Count ATHE NA ([facility]) white blood count 9.1 10 4.0-10.0 White Blood Count [place] ([facility]) hematocrit 45.6 % 42.0-52.0 Hematocrit [place] ([facility]) mean corpuscular volume 86.0 fL 80.0-96.0 Mean Corpusc ular Volume [place] ([facility]) mean corpuscular hemoglobin 29.1 pg 27.0-33.0 Mean Cor puscular Hemoglobin [place] ([facility]) hemoglobin 15.4 g/dL 13.5-17.5 Hemoglobin [place] ([facility]) neutrophils % 65.4 % 36.0-66.0 Neutrophils % [place] ( [facility]) red cell distribution width 12.4 % 11.5-14.5 Red Cell Distribution Width [place] ([facility]) platelet count, automated 378 10 150-450 Platelet C ount, Automated [place] ([facility]) mean corpuscular HGB conc 33.8 g/dL 32.0-36.5 Mean Corpu scular HGB Conc [facility] ([facility]) lymph % 25.8 % 24.0-44.0 Lymph % [facility] ([facility]) mono % 6.9 % 0.0-5.0 Above high normal Leslie % [place] ([facility]) eos % 1.0 % 0.0-3.0 Eos % [place] ([facility]) baso % 0.5 % 0.0-1.0 Baso % [place] ([facility]) immature granulocyte % 0.4 % 0-3.0 Immature Gran ulocyte % [place] ([facility]) nucleated red blood cell % 0.0 % 0-0 Nucleated Red Blood Cell % [place] ([facility]) mono # 0.6 10 0.0-0.8 Leslie # [place] ([facility]) lymph # 2.4 10 1.5-5.0 Lymph # [place] ([facility]) neutrophils # 6.0 10 1.5-8.5 Neutrophils # [place] ( [facility]) baso # 0.1 10 0.0-0.2 Baso # [place] ([facility]) eos # 0.1 10 0.0-0.5 Eos # [place] ([facility]) ID Date Data Source [id number] 01/21/2020 02:09:00 PM EST [place] ([facility]) Name Value Range Interpretation Code Description Data Adriana rce(s) Supporting Document(s) prothrombin time 12.9 seconds 12.5-14.3 Prothrombin Time [place] ([facility]) partial thromboplastin time 29.2 seconds 24.2-38.5 Partial Thromboplastin Time [place] ([facility]) INR Inr [place] ([facility]) ID Date Data Source [id number] 01/21/2020 02:09:00 PM EST [place] ([facility]) Name Value Range Interpretation Code Description Data Adriana rce(s) Supporting Document(s) C reactive protein quantitativ 0.30 mg/dL 0.00-0.30 C Reactive Protein Quantitativ [place] ([facility]) ID Date Data Source [id number] 01/21/2020 02:09:00 PM EST [place] ([facility]) Name Value Range Interpretation Code Description Data Adriana rce(s) Supporting Document(s) lipase 94 U/L 73-393 Lipase [facility] ([facility]) ID Date Data Source [id number] 01/21/2020 02:09:00 PM EST [place] ([facility]) Name Value Range Interpretation Code Description Data Adriana rce(s) Supporting Document(s) creatinine for GFR 1.05 mg/dL 0.70-1.30 Creatinine for GF R [place] ([facility]) blood urea nitrogen 15 mg/dL 7-18 Blood Urea Nitro gen [place] ([facility]) glucose, fasting 113 mg/dL 70-100 Above high normal Glucose, Fas ting [place] ([facility]) potassium serum 4.9 mEq/L 3.5-5.1 Potassium Serum ATHE NA ([facility]) glomerular filtration rate > 60.0 >60 Glomerula r Filtration Rate [place] ([facility]) sodium level 138 mEq/L 136-145 Sodium Level [place] ([facility]) carbon dioxide level 22 mEq/L 21-32 Carbon Dioxide Level [place] ([facility]) calcium level 9.2 mg/dL 8.5-10.1 Calcium Level [place] ( [facility]) anion gap 13 mEq/L 8-16 Anion Gap [facility] ([facility]) chloride level 103 mEq/L 98-107 Chloride Level [facility] ([facility]) ID Date Data Source [id number] 01/21/2020 02:09:00 PM EST [place] ([facility]) Name Value Range Interpretation Code Description Data Adriana rce(s) Supporting Document(s) ALT/SGPT 38 U/L 12-78 ALT/SGPT [place] ([facility]) alkaline phosphatase 105 U/L 45-117 Alkaline Phosph atase [place] ([facility]) AST/SGOT 10 U/L 7-37 AST/SGOT [place] ([facility]) total protein 7.6 gm/dL 6.4-8.2 Total Protein [place] ( [facility]) bilirubin,total 0.3 mg/dL 0.2-1.0 Bilirubin,total ATHE NA ([facility]) bilirubin,direct < 0.1 0.0-0.2 Bilirubin,direct AT [facility]) albumin 3.7 gm/dL 3.2-5.2 Albumin [place] ([facility]) albumin/globulin ratio Albumin/globu karina Ratio [facility] ([facility]) ID Date Data Source [id number] 01/21/2020 02:09:00 PM EST [place] ([facility]) Name Value Range Interpretation Code Description Data Adriana rce(s) Supporting Document(s) CPK creatine phosphokinase 85 U/L 39-308 CPK Creat ine Phosphokinase [place] ([facility]) CK-mb value mass 2.2 NG/mL <3.6 CK-mb Value Mass AT [facility] ([facility]) mb/CK relative index < or =4 mb/CK Relative Index [place] ([facility]) troponin I < 0.02 < 0.10 Troponin I [place] ([facility]) ID Date Data Source [id number] 01/07/2020 12:36:46 PM EST [facility] NT INFORMATIONPatient MRN Name Date of Age Gend*PT [id number] Delonte Zamorano 1985 34 years M OBSPT Location Admission Date/Time Visit ID Attending [id number] 01/04/202121 --- --- EPI ID CSN Admitting Provider [id number] Reji Griggs MD([id number]) Attestation signed by Alfie Hopper DO at 01/07/2020 12:36 PMProcedure performed under my supervision, I agree with above report.Alfie Hopper DO 01/07/2020 12:36 PMDepartment of Interventional Radiology ---------Brief Operative/Invasive Procedure NoteSaure Betsy ZamoranoDATE OF : 1985MRN # [id number] DATE: 01/06/2020PROVIDER:Dr. HopperPROALEXXURE:US guided lumbar fluid collection aspiration - Approx 4 cc of clear,yellow fluid aspiratedPRE-PROCEDURE DIAGNOSIS:Lumbar fluid collectionPOST PROCEDURE DIAGNOSIS:Lumbar fluid collectionANESTHESIA TYPE:local - 1% lidocaine (2cc)DRAINS:NoneSPECIMENS:Lumbar fluidESTIMATED BLOOD LOSS: MinimalGRAFTS OR IMPLANTS:NoneFINDINGS: Consistent with operative diagnosisCOMPLICATIONS: NoneScott Channels, PADepartment of Interventional Radiology Name Value Range Interpretation Code Description Data Adriana rce(s) Supporting Document(s) ID Date Data Source [id number] 01/06/2020 04:58:59 PM EST [address] [address]Yoeg[place] Name: DELONTE ZAMORANODOB: 1985Sex: MOrdering Provider: MARIMAR Mejias Prov: MARIMAR Whitten Provider: Procedure Performed: IR US GUIDED NEEDLE PLACEMENTExam Date: 01/06/2020 16:00MRN: [id number] Number: [id number] Class: OutpatientAccount #: [id number] for Exam: lumbar fluid collection on MRI [...] made. Using real-time ultrasound guidance a 5 Vietnamese Yueh needle was advanced into the small [...] ALFIE HOPPER On 01/06/2020 4:58 PMWorkstation ID: [id number] Name Value Range Interpretation Code Description Data Adriana rce(s) Supporting Document(s) ID Date Data Source [id number] 01/06/2020 04:51:58 [facility]FORMATIONPatient MRN Name Date of Age Gend*PT [id number] Delonte Zamorano 1985 34 years M OBSPT Location Admission Date/Time Visit ID Attending [id number] 01/04/202121 --- Reji Griggs MD([id number]) EPI ID CSN Admitting Provider [id number] Reji Griggs MD([id number]) Attestation signed by Reji Griggs MD at [...] Spondylolisthesis at L5-S1 level Herniated nucleus pulposus, L5-P9Hlevikih Problems: * No resolved hospital problems. *Surgical [...] details.Discharge disposition: He will be discharged from [facility] to home in good condition.Discharge [...] 4 cc clear fluidConsults:noneSignature: [phone]: January 06, 2020Time: 4:36 PM Name Value Range Interpretation Code Description Data Adriana rce(s) Supporting Document(s) ID Date Data Source [id number] 01/08/2020 09:58:38 AM EST [facility] [place] [facility] SPECIMEN DESCRIPTION CEREBROSPINA L FLUID LUMBARSPECIAL REQUESTS NONEGRAM STAIN NO WHITE BLOOD CELLS NO BACTERIACULTURE RESULTS NO GROWTHREPORT STATUS FINAL 01/08/2020 Name Value Range Interpretation Code Description Data Adriana rce(s) Supporting Document(s) ID Date Data Source [id number] 01/06/2020 10:29:00 PM EST [facility] [place] [facility] SPECIMEN DESCRIPTION CEREBROSPINA L FLUIDSPECIAL REQUESTS NONEGRAM STAIN NOT DONECULTURE RESULTS WRONG TEST ORDERED BY LAB ORDERED IN ERROR. [id number].REPORT STATUS FINAL 01/06/2020 Name Value Range Interpretation Code Description Data Adriana rce(s) Supporting Document(s) ID Date Data Source [id number] 01/06/2020 10:28:25 PM EST [facility] [place] [facility] SPECIMEN DESCRIPTION CEREBROSPINA L FLUIDSPECIAL REQUESTS NONECULTURE RESULTS WRONG TEST ORDERED BY LAB ORDERED IN ERRORREPORT STATUS FINAL 01/06/2020 Name Value Range Interpretation Code Description Data Adriana rce(s) Supporting Document(s) ID Date Data Source [id number] 01/06/2020 10:27:25 PM EST [facility] [place] [facility] SPECIMEN DESCRIPTION WOUND LUMBAR FLUIDSPECIAL REQUESTS NONEGRAM STAIN NOT DONECULTURE RESULTS TEST(S) PROCESSED UNDER NEW ENTRY PLEASE SEE [id number] [facility]. [id number].REPORT STATUS FINAL 01/06/2020 Name Value Range Interpretation Code Description Data Adriana rce(s) Supporting Document(s) ID Date Data Source [id number] 01/06/2020 12:53:35 PM EST [facility] [place] [facility] Name Value Range Interpretation Code Description Data Adriana rce(s) Supporting Document(s) PT 10.8 s (9.2-11.9) [facility] [place] [facility] INR 1.03 [facility] [place] [facility] SUGGESTED THERAPEUTIC RANGES USING INR F ORSTABILIZED ANTICOAGULATED PATIENTS:STANDARD DOSE THERAPY INR 2.0-3.0 DVT, PE, PREVENT DVT OR EMBOLISMHIGH DOSE THERAPY INR 2.5-3.5 PREVENT EMBOLISM FROM MECHANICAL HEART VALVE ID Date Data Source [id number] 01/06/2020 07:20:02 AM EST [facility] [place] [facility] Name Value Range Interpretation Code Description Data Adriana rce(s) Supporting Document(s) WBC 7.3 10*3/uL (4.1-11.0) [facility] [place] [facility] [place] RBC 4.94 10*6/uL (4.60-6.10) [facility] [place] [facility] HGB 15.1 g/dL (13.5-18.0) [facility] [place] [facility] HCT 43.7 % (41.0-53.0) [facility] [place] [facility] PERFORMED AT [address] [place] [address] N [place] [address] MCV 88.4 fL (80.0-95.0) [facility] [place] [facility] MCH 30.5 pg (27.0-32.0) [facility] [place] [facility] MCHC 34.5 g/dL (32.0-36.0) [facility] [place] [facility] RDW 13.4 % (10.5-14.5) [facility] [place] [facility] PLT 333 10*3/uL (150-450) [facility] [place] [facility] MPV 7.9 fL (7.1-10.7) [facility] NEUT % 43.1 % (35.0-75.0) [facility] LYMPH % 42.1 % (16.0-52.0) [facility] MONO % 9.9 % (0.0-8.0) H [facility] EOS % 3.7 % (0.0-5.0) [facility] BASO % 1.2 % (0.0-4.0) [facility] NEUT # 3.1 10*3/uL (1.8-7.7) [facility] LYMPH # 3.1 10*3/uL (1.2-4.8) [facility] MONO # 0.7 10*3/uL (0.0-0.8) [facility] Eosinophils [#/volume] in Blood by Automated count 0.3 10*3/uL (0.0-0 .5) [facility] BASO # 0.1 10*3/uL (0.0-0.2) [facility] ID Date Data Source [id number] 01/05/2020 06:18:[address] [address]Lj[place]fl Name: Delonte ZamoranoDOB: 1985Sex: MOrdering Provider: MARIMAR Mejias Prov: MARIMAR Whitten Provider: Procedure Performed: MRI LUMBAR SPINE W WO CONTRASTExam Date: 01/05/2020 16:23MRN: [id number] Number: [id number] Class: INFORMATION: Exam: MR Lumbar Spine Without [...] rce(s) Supporting Document(s) ID Date Data Source [id number] 01/05/2020 09:44:00 [place] [address] RESPIRATORY CARE REPORT ==== ---------NAME------- NUMBER SEX AGE ADMIT DISC. XRAY# F/C TYPEMURPHY DELONTE Meyer [id number] M 34 01/04/20 01/04/20 [id number] X6B E/R DATE OF : 1985 M/R# [id number] #: [id number] TR-06 LOCATION: EMERGENCY DEPT EKG 94824 COMP LETE:01/05/20 01:42 T 00975 PHYSICIAN: KEYA PADRON Name Value Range Interpretation Code Description Data Adriana rce(s) Supporting Document(s) ID Date Data Source [id number] 01/05/2020 07:37:51 AM EST [address] [address]Supfqyj Name: DELONTE ZAMORANODOB: 1985Sex: MOrdering Provider: CHAIM Pisano Prov: CHAIM Lay Provider: Procedure Performed: XR LUMBAR SPINE AP AND LATERALExam Date: 01/05/2020 01:41MRN: [id number] Number: [id number] Class: OutpatientAccount #: [id number] for Exam: s/p l5-S1 fusion now with [...] SPENCER JENNINGS On 01/05/2020 7:37 AMWorkstation ID: [id number] Name Value Range Interpretation Code Description Data Adriana rce(s) Supporting Document(s) ID Date Data Source [id number] 01/05/2020 07:20:58 AM EST [facility] NT INFORMATIONPatient MRN Name Date of Age Gend*PT [id number] Delonte Zamorano 1985 34 years M OBSPT Location Admission Date/Time Visit ID Attending [id number] 01/04/202121 --- Daren Richard MD([id number]) EPI ID CSN Admitting Provider [id number] Daren Richard MD([id number]) Attestation signed by Reji Griggs MD at 01/05/2020 7:20 AMSignature: JEFF Pradhanate: January 05, 2020Time: 7:20 AM --Ortho H+P Anilaaure ZamoranoMRN: [id number] Physician: Dr. Pope referred by:Juan Carlos Marks [...] touch or weightbearing. He was [facility] departmentfor higher level of [...] Griggs will evaluate the patient during rounds.Chaim CHAVEZ-CSignature: [phone]: January 05, 2020Time: 12:54 AM Name Value Range Interpretation Code Description Data Adriana rce(s) Supporting Document(s) ID Date Data Source [id number] 01/05/2020 07:18:07 AM [facility] INFORMATIONPatient MRN Name Date of Age Gend*PT [id number] Delonte Zamorano 1985 34 years M OBSPT Location Admission Date/Time Visit ID Attending [id number] 01/04/202121 --- Daren Richard MD([id number]) EPI ID CSN Admitting Provider [id number] Daren Richadr MD([id number])Ortho H&P NoteChief Complaint: Lower back pain/right lower extremity pain/tinglingSean M FosterMRN: [id number] and Recommendations:Principal Problem: Post-op painActive Problems: Spondylolisthesis at L5-S1 level Herniated nucleus pulposus, L5-S1 1. Acute onset lower back pain/right lower extremity numbness/tingling: NeedsMRI for further evaluation-MRI ordered. Apparently MRI cannot be performedwhile in the emergency room last p.m. Further recommendations after MRIobtained and reviewedLabs/Imaging/Other diagnostics:X-rays lumbar spine [facility] 01/05/2020: Hardware in good position. GoodalignmentHistory of Present Illness: 34-year-old male status post L5-S1 TLIF 09/30/2019.Did well postoperatively. Preoperative symptoms were down the left lowerextremity. However states on , was lifting his son developedsome lower back pain. Woke up Sunday morning with severe pain in the backrating down the right lower extremity. [facility] roomand then transferred to [facility] for further evaluation treatment. Besides [...] Reji Griggs, MDDate: January 05, 2020Time: 7:10 [facility]:Daren Richard MD Name Value Range Interpretation Code Description Data Adriana rce(s) Supporting Document(s) ID Date Data Source [id number] 01/11/2020 11:10:42 AM EST [facility] [place] [facility] SPECIMEN DESCRIPTION PERIPHERAL LEFTSPECIAL REQUESTS NONECULTURE RESULTS NO GROWTH 6 DAYSREPORT STATUS FINAL 01/11/2020 Name Value Range Interpretation Code Description Data Adriana rce(s) Supporting Document(s) ID Date Data Source [id number] 01/11/2020 11:10:42 AM EST [facility] [place] [facility] SPECIMEN DESCRIPTION PERIPHERAL RIGHTSPECIAL REQUESTS NONECULTURE RESULTS NO GROWTH 6 DAYSREPORT STATUS FINAL 01/11/2020 Name Value Range Interpretation Code Description Data Adriana rce(s) Supporting Document(s) ID Date Data Source [id number] 01/04/2020 11:06:43 PM EST [facility] NT INFORMATIONPatient MRN Name Date of Age Gend*PT [id number] Delonte Zamorano 1985 34 years M EDPT Location Admission Date/Time Visit ID Attending [id number] 01/04/202121 --- Nicolas An MD([id number]) EPI ID CSN Admitting Provider [id number] ---Provider in Triage NotesNo notes on fileHistory of Present IllnessChief ComplaintPatient presents with Post-op Problem Per EMS- Pt had back surgery at [facility] on 10/01/2019. The pain has returned andworsened over the past 2 days at which point pt [facility].Transferred here for further workup and MRI.34-year-old [...] He has a normal mood and affect.ED SxvilaZeettfjdhaKAN54:00 Dr Richard from [facility], freda admit to his service for MRI in [facility] was electronically signed by Nicolas An MD, 01/04/20 10:01 PM.Nicolas An MD01/04/20 2306 Name Value Range Interpretation Code Description Data Adriana rce(s) Supporting Document(s) ID Date Data Source [id number] 01/04/2020 10:09:00 PM EST [facility] Name Value Range Interpretation Code Description Data Adriana rce(s) Supporting Document(s) SARS coronavirus 2 RNA [Presence] in Res piratory specimen by BINA with probe detection [facility] This lab was reported by [facility] [place] [facility]. ID Date Data Source [id number] 01/05/2020 12:23:19 AM EST [facility] [place] [facility] Name Value Range Interpretation Code Description Data Adriana rce(s) Supporting Document(s) SPECIMEN DESCRIPTION [facility] INFLUENZA A (NEG) [facility] [place] [facility] INFLUENZA B (NEG) [facility] [place] [facility] RSV (NEG) [facility] [place] [facility] COMMENT [facility] [place] [facility] UNDER AN EMERGENCY USE AUTHORIZATION(EUA ) FOR THE DETECTION AND/OR DIAGNOSISOF THE VIRUS THAT CAUSES COVID-19.PERFORMED AT [address] [place] [address] COVID19 RESULT (NDET) [facility] [place] [facility] THIS ASSAY AMPLIFIES AND DETECTSTHE TARG ET RNA USING REAL-TIME PCR.NEGATIVE 2019_NCOV RT-PCR RESULTS DONOT PRECLUDE 2019_NCOV INFECTION ANDSHOULD NOT BE USED THE SOLE BASISFOR PATIENT MANAGEMENT DECISIONS. FIRST TEST [facility] [place] [facility] SYMPTOMATIC [facility] [place] [facility] DATE OF SYMPT ONSET [facility] HOSPITALIZED [facility] [place] [facility] ICU [facility] [place] [facility] CONGREGATE CARE SET [facility] [place] [facility] ID Date Data Source [id number] 01/04/2020 11:08:54 PM EST [facility] [place] [facility] Name Value Range Interpretation Code Description Data Adriana rce(s) Supporting Document(s) SODIUM 137 mmol/L (136-145) [facility] [place] [facility] POTASSIUM 4.1 mmol/L (3.6-5.2) [facility] [place] [facility] CHLORIDE 106 mmol/L (100-108) [facility] [place] [facility] CO2 23 mmol/L (22-31) [facility] [place] [facility] ANION GAP 8 mmol/L (7-16) [facility] [place] [facility] UREA NITROGEN 15 mg/dL (7-24) [facility] [place] [facility] CREATININE 0.98 mg/dL (0.80-1.30) [facility] [place] [facility] BUN/CREAT RATIO 15.3 RATIO (10.0-20.0) [facility] GLUCOSE 127 mg/dL (70-99) H [facility] [place] [facility] CALCIUM 9.0 mg/dL (8.4-10.2) [facility] [place] [facility] TOTAL PROTEIN 7.9 g/dL (6.4-8.2) [facility] [place] [facility] ALBUMIN 4.0 g/dL (3.5-4.6) [facility] [place] [facility] GLOBULIN 3.9 g/dL (2.7-4.3) [facility] [place] [facility] ALB/GLOB RATIO 1.0 RATIO [facility] [place] [facility] ALKALINE PHOSPHATASE 106 U/L (45-117) [facility] BILIRUBIN,TOTAL 0.5 mg/dL (0.0-1.0) [facility] [place] [facility] PLEASE NOTE:Total bilirubin results may be falselyelevated in patients taking Eltrombopag. AST (SGOT) 72 U/L (11-39) H [facility] [place] [facility] ALT (SGPT) 84 U/L (12-78) H [facility] [place] [facility] GFR >60 ml/min/1.73m2 (>59) [facility] [place] [facility] GFR ( AMER) >60 ml/min/1.73m2 (>59) [facility] [place] [facility] GFR INTERPRETATION [facility] --NORMAL KIDNEY FUNCTION OR MILD DISEASE - GFR >OR= 60CHRONIC KIDNEY DISEASE - GFR 15 - 59RENAL FAILURE - GFR <15 Est. GFR calculation based on the MDRDstudy equation, which assumes a steadystate for creatinine. Est. GFR should notbe used for medication dosing. ID Date Data Source [id number] 01/04/2020 10:47:51 PM EST [facility] [place] [facility] Name Value Range Interpretation Code Description Data Adriana rce(s) Supporting Document(s) WBC 15.2 10*3/uL (4.1-11.0) H [facility] [place] [facility] RBC 5.39 10*6/uL (4.60-6.10) [facility] [place] [facility] HGB 16.2 g/dL (13.5-18.0) [facility] [place] [facility] HCT 46.7 % (41.0-53.0) [facility] [place] [facility] MCV 86.5 fL (80.0-95.0) [facility] [place] [facility] MCH 30.1 pg (27.0-32.0) [facility] [place] [facility] MCHC 34.8 g/dL (32.0-36.0) [facility] [place] [facility] RDW 13.5 % (10.5-14.5) [facility] [place] [facility] PLT 373 10*3/uL (150-450) [facility] [place] [facility] MPV 8.0 fL (7.1-10.7) [facility] [place] [facility] NEUT % 90.9 % (35.0-75.0) H [facility] [place] [facility] LYMPH % 7.0 % (16.0-52.0) L [facility] [place] [facility] MONO % 1.6 % (0.0-8.0) [facility] [place] [facility] EOS % 0.1 % (0.0-5.0) [facility] [place] [facility] BASO % 0.4 % (0.0-4.0) [facility] [place] [facility] NEUT # 13.8 10*3/uL (1.8-7.7) H [facility] [place] [facility] [place] LYMPH # 1.1 10*3/uL (1.2-4.8) L [facility] [place] [facility] MONO # 0.2 10*3/uL (0.0-0.8) [facility] [place] [facility] Eosinophils [#/volume] in Blood by Automated count 0.0 10*3/uL (0.0-0 .5) [facility] [place] [facility] BASO # 0.1 10*3/uL (0.0-0.2) [facility] [place] [facility] ID Date Data Source [id number] 01/04/2020 04:23:00 PM EST [facility] 1 OrderSheet [facility] Emergency Department [address] [place] [address] Phone #: ext- [phone] 01/04/2020 16:17 Patient: [...] Sorbero,Oral W/O IV Almaz Valle MD; Suraj R.N.Contrast(Oxygen?(No))(IV?(No)) Reason for Study: Abdominal PainMEDICATION/IV/DRIP/FLUID ORDERSOrder Description Priority Entered Acknowledged InitialedMorphine IM 4 mg 17:09 01/04/2020 17:15 Sorbero,(NOW x1, HIGH Almaz Valle MD; Suraj R.N.ALERTMEDICATION)predniSONE PO 60 17:09 01/04/2020 17:15 Sorbero,mg (NOW x1) Almaz Valle MD; Suraj KuhnAcetaminophen IV 18:16 01/04/2020 18:51 Sor[place]o, 2 OrderSheet [facility] Emergency Department [address] [place] [address] Phone #: ext- [phone] 01/04/2020 16:17 Patient: DELONTE ZAMORANO Sex: M : 1985 Age: [id number] mg (NOW x1, Almaz Valle MD; Suraj KuhnInfuse over 15minutes)Toradol IVP 30 mg 18:16 01/04/2020 18:50 Joseero,(NOW x1) Almaz Valle MD; Suraj KuhnIV NS 1000 mL 18:16 01/04/2020 18:50 Barb,Bolus : Bolus 1000 Almaz Valle MD; Suraj KuhnmL (X1)GENERAL ORDERSOrder Description Priority Entered Acknowledged InitialedEKG 18:15 01/04/2020 18:34 Leonard Day Norma MD; Suraj Kuhn[Electronically signed by Almaz Valle MD (19:53 01/04/2020)][Electronically signed by Suraj Day R.N. (20:08 01/04/2020)][Electronically locked by Suraj Day R.N. (20:08 01/04/2020)] Name Value Range Interpretation Code Description Data Adriana rce(s) Supporting Document(s) ID Date Data Source [id number] 01/04/2020 04:23:00 PM EST [facility] 1 Medication Reconciliation Report [facility] Emergency Department [address] [place] [address] Phone #: ext- [phone] 01/04/2020 16:17 Patient: [...] rce(s) Supporting Document(s) ID Date Data Source [id number] 01/04/2020 04:23:00 PM EST [facility] 1 Medication Administration Record [facility] Emergency Department [address] [place] [address] Phone #: ext- [phone] 01/04/2020 16:17 Patient: [...] IV NS 1000 mL Bolus : Bolus 611131:[id number] 01/04/2020 Dose: IV Fluids mL (X1)Suraj Day R.N. Rate: 1500 mL/hr over 40 minute(s)---- Dispensed: 1000 mL bagStop Site: #1 left AC19:37 01/04/2020Suraj Day R.N. Name Value Range Interpretation Code Description Data Adriana rce(s) Supporting Document(s) ID Date Data Source [id number] 01/04/2020 04:23:00 PM EST [facility] 1 General Instructions [facility] Emergency Department [address] [place] [address] Phone #: ext- [phone] 01/04/2020 16:17 Patient: [...] can remain active. 2 General Instructions [facility] Emergency Department [address] [place] [address] Phone #: ext- [phone] 01/04/2020 16:17 Patient: [...] your knees bent 3 General Instructions [facility] Emergency Department [address] [place] [address] Phone #: ext- [phone] 01/04/2020 16:17 Patient: [...] or are takingother medicines. You may use osib-ddd-qnjxhav medicine as directed on the bottle to [...] affect your care. 4 General Instructions [facility] Emergency Department [address] [place] [address] Phone #: ext- [phone] 01/04/2020 16:17 Patient: [...] Numbness in the groin or genital area [id number] [employer] [place] [address]. All rights reserved. This information is not [...] medicines you take. This includes prescription and fgqs-ffm-yloesgi medicines, vitamins, and herbs. Ask if any of the medicines may be causing 5 General Instructions [facility] Emergency Department [address] [place] [address] Phone #: ext- [phone] 01/04/2020 16:17 Patient: [...] Open wound with redness, swelling, or pus [phone] [employer]. [address] [place] [address]. All rights reserved. This information is not intended as asubstitute for professional medical care. Always follow your healthcare professional's instructions. You have been given the following additional information: Back Pain (Acute or Chronic) Paraesthesias 6 General Instructions [facility] Emergency Department [address] [place] [address] Phone #: ext- [phone] 01/04/2020 16:17 Patient: DELONTE ZAMORANO Sex: M : 1985 Age: 34y(Electronically signed by Almaz Valle MD 01/04/2020 19:53) Name Value Range Interpretation Code Description Data Adriana rce(s) Supporting Document(s) ID Date Data Source [id number] 01/04/2020 04:23:00 PM [facility] 1 Clinical Report - Nurses [facility] Emergency Department [address] [place] [address] Phone #: ext- [phone] 01/04/2020 16:17 Patient: DELONTE ZAMORANO Sex: M : 1985 Age: 34yTRIAGEArrived by private vehicle. Historian: patient. ( back pain with pain shooting down right leg).Triage time: 16:21 01/04/2020. Acuity: LEVEL 4.Chief Complaint: BACK PAIN.Alert.This started yesterday. No history of recent trauma.Pre-hospital notification of patient arrival was not received.Treatment ELIGIBILITY SERVICES REPRESENTATIVE:Took Tylenol.SEPSIS SCREEN: Sepsis Screen negative. No suspected [...] Pain. 2 Clinical Report - Nurses [facility] Emergency Department [address] [place] [address] Phone #: ext- [phone] 01/04/2020 16:17 Patient: [...] carrier 3 Clinical Report - Nurses [facility] Emergency Department [address] [place] [address] Phone #: ext- [phone] 01/04/2020 16:17 Patient: [...] ABUSE ASSESSMENT: No report of abuse. --16:31 11/29/20 Suraj Day R.N. Assessment The patient states feels the same. --16:01/04/20 Suraj Day R.N. Interventions Identification band on patient. To treatment room. --16:01/04/20 Suraj Day R.N.PHYSICAL DZROYMGFEF77:01/04/20. Ambulatory to room.GENERAL / NEURO / PSYCH: [...] light placed in reach. [facility]. Brakes of bed on. Patient ready for evaluation- ED physician notified. --16:01/04/20Suraj garcia R.N. 17:15 01/04/2020 Morphine IM 4 mg given. Given in the right deltoid. Allergies verified and confirmed 5 rights. Information reviewed with patient including reason for taking this medication, signs of allergic reaction, precautions and sedative warning. Verbalizes understanding. --17:15 01/04/20 Suraj Day R.N. 4 Clinical Report - Nurses [facility] Emergency Department [address] [place] [address] Phone #: ext- [phone] 01/04/2020 16:17 Patient: [...] Suraj Day R.N.18:34 01/04/20. 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 --18:35 01/04/20 Suraj Day R.N.18:33 01/04/20. BP: [...] 01/04/20. ( spoke to Michelle SOSA at [facility] to inform her transfer is delayed until further noticebecause of chest pain and evaluation. we will keep them posted.). --18:59 01/04/20 Suraj Day R.N.19:19 01/04/20. BP: 147/90. MAP: 109. HR: 74. RR: 17. O2 saturation: 100%. --19:19 01/04/20 Marisol Harris, ER Tech1 5 Clinical Report - Nurses [facility] Emergency Department [address] [place] [address] Phone #: ext- [phone] 01/04/2020 16:17 Patient: DELONTE ZAMORANO Sex: M : 1985 Age: 34y 19:29 01/04/20. BP: 155/82. MAP: 106. HR: 67. RR: 15. O2 saturation: 100%. --19:29 01/04/20 Daisha database modeler, Marisol, ER Tech1 19:32 01/04/2020 Ofirmir IVPB [...] include patient impairment of mobility. Transferred to [facility]. Visit overview, summary of care [...] by 1 nurse. --17:46 01/04/20 Suraj Day ROni 18:04 01/04/20. BP: 142/95. MAP: 110. HR: [...] R.N. 6 Clinical Report - Nurses [facility] Emergency Department [address] [place] [address] Phone #: ext- [phone] 01/04/2020 16:17 -------- Patient: DELONTE ZAMORANO Sex: M : 1985 Age: 34y Name Value Range Interpretation Code Description Data Adriana rce(s) Supporting Document(s) ID Date Data Source [id number] 01/04/2020 04:23:00 PM EST [facility] 1 Clinical Report - Physicians/Mid Levels [facility] Emergency Department [address] [place] [address] Phone #: ext- [phone] 01/04/2020 16:17 Patient: DELONTE ZAMORANO Sex: M : 1985 Age: 34y Historian- [...] 2 Clinical Report - Physicians/Mid Levels [facility] Emergency Department [address] [place] [address] Phone #: ext- [phone] 01/04/2020 16:17 Patient: DELONTE ZAMORANO Sex: M [...] 10/01/19, did spine surgery on him at [facility]. He states he used a walker [...] 3 Clinical Report - Physicians/Mid Levels [facility] Emergency Department [address] [place] [address] Phone #: ext- [phone] 01/04/2020 16:17 Patient: [...] lower extremity. Patient/family counseled. Disposition: Transferred to [facility]. Condition: stable.CLINICAL IM PRESSION Weakness of the right lower extremity. Paresthesia Nontraumatic lumbar back pain.(Electronically signed by Almaz Valle MD 01/04/2020 19:53) Name Value Range Interpretation Code Description Data Adriana rce(s) Supporting Document(s) ID Date Data Source [id number] 01/04/2020 07:16:00 PM EST [facility] [address] [facility] [address] ---------NAME--------- NUMBER SEX AGE ADMIT DISC. XRAY# F/C TYPE KYLE Meyer [id number] M 34 01/04/20 [id number] X6B E/R DATE OF : 1985 M/R# [id number] #: [id number] TR-06 LOCATION: EMERGENCY DEPT TRANSCRIBED: 01/04/20 19:[address] ABD //T// PELV W/[place] OR[place] W/[place] [id number] COMPLETED:01/04/20 19:12 [facility] [id number] Reason(s): Abdominal Pain PHYSICIAN: KEYA======= R A D I O L O G Y R E P O R T PATIENT HISTORY:abdominal pain 3 months s/p lumbar fusion, accumulated dlp 1154.5 mGy*cm est SZC0112.2 mGy*cm MALE 2 PT IDENTIFIERS-JJH / ABD/PEL (DICOM Hx)EXAM: CT Abdomen and Pelvis Without IV contrastCLINICAL HISTORY: Abdominal pain 3 months s/p lumbar fusion, accumulated ttf4875.5 mGy*cm est DLP 1143.2 mGy*cm MALE 2 [...] rce(s) Supporting Document(s) ID Date Data Source [id number] 01/04/2020 07:00:00 PM [facility] Name Value Range Interpretation Code Description Data Adriana rce(s) Supporting Document(s) TROPONIN T <0.01 NG/ML 0.00 - 0.10 [facility]spital TROPONIN T0.1 ng/ml Recommended as the c linical threshold value forTroponin T. ID Date Data Source [id number] 01/04/2020 06:59:00 PM [facility] Name Value Range Interpretation Code Description Data Adriana rce(s) Supporting Document(s) Ethanol [Moles/volume] in Blood <10.0 MG/DL [facility] ALCOHOL % 0.01 % 0.00 - 0.01 [facility] *FOR MEDICAL PURPOSES ONLY * ID Date Data Source [id number] 01/04/2020 06:59:00 PM [facility] Name Value Range Interpretation Code Description Data Adriana rce(s) Supporting Document(s) Magnesium [Mass/volume] in Serum or Plasma 1.9 MG/DL 1.7 - 2.2 [facility] ID Date Data Source [id number] 01/04/2020 06:59:00 PM [facility] Name Value Range Interpretation Code Description Data Adriana rce(s) Supporting Document(s) Lipase [Enzymatic activity/volume] in Serum or Plasma 64 U/L 13 - 60 H [facility] ID Date Data Source [id number] 01/04/2020 06:59:00 PM [facility] Name Value Range Interpretation Code Description Data Adriana rce(s) Supporting Document(s) COMPREHENSIVE METABOLIC PANEL [facility] COMPREHENSIVE METABOLIC PANEL Sodium [Moles/volume] in Serum or Plasma 136 mEq/L 134 - 153 [facility] Potassium [Moles/volume] in Serum or Plasma 4.3 mEq/L 3.6 - 5.0 [facility] Chloride [Moles/volume] in Serum or Plasma 100 mEq/L 98 - 107 [facility] Carbon dioxide, total [Moles/volume] in Serum or Plasma 24 MEQ/L 22 - 30 [facility] Glucose [Mass/volume] in Serum or Plasma 100 MG/DL 65 - 110 [facility] BUN 11 MG/DL 7 - 21 [facility] al Creatinine [Mass/volume] in Serum or Plasma 0.9 MG/DL 0.7 - 1.5 [facility] BUN/CREAT 12 8 - 27 [facility] Protein [Mass/volume] in Serum or Plasma 7.7 G/DL 6.3 - 8.2 [facility] Albumin [Mass/volume] in Serum or Plasma 5.0 G/DL 3.9 - 5.0 [facility] Globulin [Mass/volume] in Serum by calculation 2.7 GM/DL 2.4 - 3.2 [facility] A/G RATIO 1.9 0.8 - 2.0 [facility] Calcium [Mass/volume] in Serum or Plasma 10.0 MG/DL 8.4 - 10.2 [facility] Bilirubin.total [Mass/volume] in Serum or Plasma <0.7 MG/DL 0.2 - 1.3 [facility] Alkaline phosphatase [Enzymatic activity/volume] in Serum or Plasma 94 U/L 38 - 126 [facility] Aspartate aminotransferase [Enzymatic activity/volume] in Serum or Plasma 30 U/L 5 - 40 [facility] Alanine aminotransferase [Enzymatic activity/volume] in Seru m or Plasma 33 U/L 7 - 56 [facility] Anion gap 3 in Serum or Plasma 12.0 mmol/L 8.0 - 16.0 [facility] AGE 34 yrs [facility] Hospit [facility] NON-AA GFR >60 mL/min [facility] AFR AMER GFR >60 mL/min [facility] Ho spital Male GFR In terprentation [...] >32 mL/min Normal ID Date Data Source [id number] 01/04/2020 06:40:00 PM EST [facility] Name Value Range Interpretation Code Description Data Adriana rce(s) Supporting Document(s) CBC W/AUTOMATED DIFF [facility] COMPLETE BLOOD COUNT Leukocytes [#/volume] in Blood by Automated count 9.3 10^3/uL 4.2 - 1 1.0 [facility] Erythrocytes [#/volume] in Blood by Automated count 5.86 10^6/uL 4. 50 - 6.30 [facility] Hemoglobin [Mass/volume] in Blood 17.6 g/dL 14.0 - 16.0 H [facility] Hematocrit [Volume Fraction] of Blood by Automated count 51.3 % 4 1.0 - 51.0 H [facility] Erythrocyte mean corpuscular volume [Entitic volume] by Auto mated count 87.5 fL 80.0 - 94.0 [facility] Erythrocyte mean corpuscular hemoglobin [Entitic mass] by Automated count 30.0 pg 27.0 - 34.0 [facility] Erythrocyte mean corpuscular hemoglobin concentration [Mass/volume] by Automated count 34.3 g/dL 31.0 - 36.0 [facility] Erythrocyte distribution width [Ratio] by Automated count 12.0 % 11.5 - 14.8 [facility] Platelets [#/volume] in Blood by Automated count 430 10^3/uL 150 - 45 0 [facility] Platelet mean volume [Entitic volume] in Blood by Automated count 9.2 fL 7.4 - 10.4 [facility] Neutrophils/100 leukocytes in Blood by Automated count 62.5 % 37. 0 - 80.0 [facility] Lymphocytes/100 leukocytes in Blood by Manual count 26.9 % 25.0 - 40.0 [facility] Monocytes/100 leukocytes in Blood by Automated count 7.3 % 3.0 - 8.0 [facility] Eosinophils/100 leukocytes in Blood by Automated count 2.0 % 0.0 - 7.0 [facility] Basophils/100 leukocytes in Blood by Automated count 1.0 % 0.0 - 2.0 [facility] %IG 0.3 % 0.0 - 0.0 [facility] % 0.0 - 0.0 [facility] al Neutrophils [#/volume] in Blood by Automated count 5.82 10^3/uL 2.00 - 6.90 [facility] Lymphocytes [#/volume] in Blood by Automated count 2.50 10^3/uL 0.60 - 3.40 [facility] Monocytes [#/volume] in Blood by Automated count 0.68 10^3/uL 0.00 - 0.90 [facility] Eosinophils [#/volume] in Blood by Automated count 0.19 10^3/uL 0.00 - 0.70 [facility] Basophils [#/volume] in Blood by Automated count 0.09 10^3/uL 0.00 - 0.20 [facility] #IG 0.03 10^3/uL 0.00 - 0.10 [facility] ospital #NRBC 0.00 10^3/uL 0.00 - 0.00 [facility] MANUAL DIFF NOT INDICATED [facility] RBC MORPH NOT INDICATED [facility] spital ID Date Data Source [id number] 11/12/2019 01:02:29 PM EDT [facility], PCName: Delonte ZamoranoDOB: 1985Provider: Reji [...] Order Comments: 12 sessionsplease fax reports to ([phone]. thank you Due: [id number]; Last Updated By: Stephanie Nina; 11/12/2019 1:01:12 [...] document was dictated and electronically signed using [employer] software. A reasonable attempt at proof reading [...] Ex-drinker (finding) comp leted Ex- drinker (finding) [facility] Tobacco use and exposure 07/22/2020 12:00:00 AM EDT Never used co mpleted Never used [facility] Cigarette pack-years 07/22/2020 12:00:00 AM [facility]T [facility] smoked current (pack per day) - Reported 07/23/19 12:00:00 AM EDT [facility] ospital Smoking 07/22/2020 12:00:00 AM EDT Current every day smoker co mpleted Current every day smoker [facility] Alcohol intake 04/28/2020 12:00:00 AM EDT Ex-drinker (finding) comp leted Ex- drinker (finding) [facility] Alcohol intake 04/09/2020 12:00:00 AM EST Current drinker of al cohol (finding) completed Current drinker of alcohol (finding) [facility] Smoking 02/17/2020 12:00:00 AM EST Current Smoker completed Curre nt Smoker eCW1 ([facility]) Alcohol intake 01/05/2020 12:00:00 AM EST Yes completed [facility] Smoking 01/05/2020 12:00:00 AM EST Former smoker completed Former smoker [facility] Vital Signs ID Date Data Source UNK Name Value Range Interpretation Code Description Data Source(s) Body height 71 [in_i] 71 [in_i] MARJORIE ([facility]) Diastolic blood pressure 103 mm[Hg] 103 mm[Hg] MARJORIE ([facility]) Diastolic blood pressure 111 mm[Hg] 111 mm[Hg] MARJORIE ([facility]) Body height 71 [in_i] 71 [in_i] MARJORIE ([facility]) Body mass index (BMI) [Ratio] 29.8 kg/m2 29.8 k g/m2 [facility]IE ([facility]) Systolic blood pressure 150 mm[Hg] 150 mm[Hg] A [facility] ([facility]) Systolic blood pressure 162 mm[Hg] 162 mm[Hg] A [facility] ([facility]) Body weight 3424 [oz_av] 3424 [oz_av] MARJORIE ([facility]) Diastolic blood pressure 103 mm[Hg] 103 mm[Hg] MARJORIE ([facility]) Diastolic blood pressure 111 mm[Hg] 111 mm[Hg] MARJORIE ([facility]) Body height 71 [in_i] 71 [in_i] MARJORIE ([facility]) Body mass index (BMI) [Ratio] 29.8 kg/m2 29.8 k g/m2 MAR[facility]IE ([facility]) Systolic blood pressure 150 mm[Hg] 150 mm[Hg] A [facility] ([facility]) Systolic blood pressure 162 mm[Hg] 162 mm[Hg] A [facility] ([facility]) Body weight 3424 [oz_av] 3424 [oz_av] MARJORIE ([facility]) Diastolic blood pressure 76 mm[Hg] 76 mm[Hg] MARJORIE ([facility]) Diastolic blood pressure 91 mm[Hg] 91 mm[Hg] MARJORIE ([facility]) Body height 71 [in_i] 71 [in_i] MARJORIE ([facility]) Body mass index (BMI) [Ratio] 30.3 kg/m2 30.3 k g/m2 MAR[facility]IE ([facility]) Systolic blood pressure 154 mm[Hg] 154 mm[Hg] A THENA ([facility]) Systolic blood pressure 149 mm[Hg] 149 mm[Hg] A THENA ([facility]) Body weight 3472 [oz_av] 3472 [oz_av] MARJORIE ([facility]) Diastolic blood pressure 76 mm[Hg] 76 mm[Hg] MARJORIE ([facility]) Diastolic blood pressure 91 mm[Hg] 91 mm[Hg] MARJORIE ([facility]) Body height 71 [in_i] 71 [in_i] MARJORIE ([facility]) Body mass index (BMI) [Ratio] 30.3 kg/m2 30.3 k g/m2 MAR[facility]IE ([facility]) Systolic blood pressure 154 mm[Hg] 154 mm[Hg] A THENA ([facility]) Systolic blood pressure 149 mm[Hg] 149 mm[Hg] A THENA ([facility]) Body weight 3472 [oz_av] 3472 [oz_av] MARJORIE ([facility]) Diastolic blood pressure 76 mm[Hg] 76 mm[Hg] MARJORIE ([facility]) Diastolic blood pressure 91 mm[Hg] 91 mm[Hg] MARJORIE ([facility]) Body height 71 [in_i] 71 [in_i] MARJORIE ([facility]) Body mass index (BMI) [Ratio] 30.3 kg/m2 30.3 k g/m2 MARJORIE ([facility]) Systolic blood pressure 154 mm[Hg] 154 mm[Hg] A THENA ([facility]) Systolic blood pressure 149 mm[Hg] 149 mm[Hg] A THENA ([facility]) Body weight 3472 [oz_av] 3472 [oz_av] MARJORIE ([facility]) Diastolic blood pressure 76 mm[Hg] 76 mm[Hg] MARJORIE ([facility]) Diastolic blood pressure 91 mm[Hg] 91 mm[Hg] MARJORIE ([facility]) Body height 71 [in_i] 71 [in_i] MARJORIE ([facility]) Body mass index (BMI) [Ratio] 30.3 kg/m2 30.3 k g/m2 MARJ[facility]IE ([facility]) Systolic blood pressure 154 mm[Hg] 154 mm[Hg] [facility] Systolic blood pressure 149 mm[Hg] 149 mm[Hg] A THENA ([facility]) Body weight 3472 [oz_av] 3472 [oz_av] MARJORIE ([facility]) Diastolic blood pressure 89 mm[Hg] 89 mm[Hg] MARJORIE ([facility]) Body height 71 [in_i] 71 [in_i] MARJORIE ([facility]) Body mass index (BMI) [Ratio] 30.5 kg/m2 30.5 k g/m2 MARJORIE ([facility]) Systolic blood pressure 146 mm[Hg] 146 mm[Hg] A THENA ([facility]) Body weight 3494.4 [oz_av] 3494.4 [oz_av] ATHEN A ([facility]) Diastolic blood pressure 89 mm[Hg] 89 mm[Hg] MARJORIE ([facility]) Body height 71 [in_i] 71 [in_i] MARJORIE ([facility]) Body mass index (BMI) [Ratio] 30.5 kg/m2 30.5 k g/m2 MARJORIE ([facility]) Systolic blood pressure 146 mm[Hg] 146 mm[Hg] A THENA ([facility]) Body weight 3494.4 [oz_av] 3494.4 [oz_av] ATHEN A ([facility]) Diastolic blood pressure 89 mm[Hg] 89 mm[Hg] MARJORIE ([facility]) Body height 71 [in_i] 71 [in_i] MARJORIE ([facility]) Body mass index (BMI) [Ratio] 30.5 kg/m2 30.5 k g/m2 MARJORIE ([facility]) Systolic blood pressure 146 mm[Hg] 146 mm[Hg] A THENA ([facility]) Body weight 3494.4 [oz_av] 3494.4 [oz_av] ATHEN A ([facility]) Diastolic blood pressure 89 mm[Hg] 89 mm[Hg] MARJORIE ([facility]) Body height 71 [in_i] 71 [in_i] MARJORIE ([facility]) Body mass index (BMI) [Ratio] 30.5 kg/m2 30.5 k g/m2 MARJORIE ([facility]) Systolic blood pressure 146 mm[Hg] 146 mm[Hg] A THENA ([facility]) Body weight 3494.4 [oz_av] 3494.4 [oz_av] ATHEN A ([facility]) Diastolic blood pressure 89 mm[Hg] 89 mm[Hg] MARJORIE ([facility]) Body height 71 [in_i] 71 [in_i] MARJORIE ([facility]) Body mass index (BMI) [Ratio] 30.5 kg/m2 30.5 k g/m2 MARJORIE ([facility]) Systolic blood pressure 146 mm[Hg] 146 mm[Hg] A THENA ([facility]) Body weight 3494.4 [oz_av] 3494.4 [oz_av] ATHEN A ([facility]) Body weight 225 [lb_av] 225 [lb_av] eCW1 ([facility]) Body height 71.5 [in_i] 71.5 [in_i] eCW1 ([facility]) Body mass index (BMI) [Ratio] 30.94 kg/m2 30.94 kg/m2 eCW1 ([facility]) Heart rate 90 /min 90 /min eCW1 ([facility]) Respiratory rate 18 /min 18 /min eCW1 ([facility]) Body temperature 96 [degF] 96 [degF] eCW1 ([facility]) Systolic blood pressure 138 mm[Hg] 138 mm[Hg] e CW1 ([facility]) Diastolic blood pressure 74 mm[Hg] 74 mm[Hg] eCW1 ([facility]) Diastolic blood pressure 96 mm[Hg] 96 mm[Hg] MARJORIE ([facility]) Body height 71 [in_i] 71 [in_i] MARJORIE ([facility]) Body mass index (BMI) [Ratio] 31.3 kg/m2 31.3 k g/m2 MARJORIE ([facility]) Systolic blood pressure 132 mm[Hg] 132 mm[Hg] [facility] Systolic blood pressure 137 mm[Hg] 137 mm[Hg] [facility] Body weight 3593.6 [oz_av] 3593.6 [oz_av] ATHEN A ([facility]) Diastolic blood pressure 87 mm[Hg] 87 mm[Hg] MARJORIE ([facility]) Diastolic blood pressure 87 mm[Hg] 87 mm[Hg] MARJORIE ([facility]) Diastolic blood pressure 96 mm[Hg] 96 mm[Hg] MARJORIE ([facility]) Body height 71 [in_i] 71 [in_i] MARJORIE ([facility]) Body mass index (BMI) [Ratio] 31.3 kg/m2 31.3 k g/m2 MARJORIE ([facility]) Systolic blood pressure 132 mm[Hg] 132 mm[Hg] A THENA ([facility]) Systolic blood pressure 137 mm[Hg] 137 mm[Hg] A THENA ([facility]) Body weight 3593.6 [oz_av] 3593.6 [oz_av] ATHEN A ([facility]) Diastolic blood pressure 87 mm[Hg] 87 mm[Hg] MARJORIE ([facility]) Diastolic blood pressure 96 mm[Hg] 96 mm[Hg] MARJORIE ([facility]) Body height 71 [in_i] 71 [in_i] MARJORIE ([facility]) Body mass index (BMI) [Ratio] 31.3 kg/m2 31.3 k g/m2 MARJORIE ([facility]) Systolic blood pressure 132 mm[Hg] 132 mm[Hg] A THENA ([facility]) Systolic blood pressure 137 mm[Hg] 137 mm[Hg] A THENA ([facility]) Body weight 3593.6 [oz_av] 3593.6 [oz_av] ATHEN A ([facility]) Diastolic blood pressure 87 mm[Hg] 87 mm[Hg] MARJORIE ([facility]) Diastolic blood pressure 96 mm[Hg] 96 mm[Hg] MARJORIE ([facility]) Body height 71 [in_i] 71 [in_i] MARJORIE ([facility]) Body mass index (BMI) [Ratio] 31.3 kg/m2 31.3 k g/m2 MARJORIE ([facility]) Systolic blood pressure 132 mm[Hg] 132 mm[Hg] [facility] Systolic blood pressure 137 mm[Hg] 137 mm[Hg] [facility]) Body weight 3593.6 [oz_av] 3593.6 [oz_av] ATHEN A ([facility]) Diastolic blood pressure 87 mm[Hg] 87 mm[Hg] MARJORIE ([facility]) Diastolic blood pressure 96 mm[Hg] 96 mm[Hg] MARJORIE ([facility]) Body height 71 [in_i] 71 [in_i] MARJORIE ([facility]) Body mass index (BMI) [Ratio] 31.3 kg/m2 31.3 k g/m2 MARJORIE ([facility]) Systolic blood pressure 132 mm[Hg] 132 mm[Hg] A THENA ([facility]) Systolic blood pressure 137 mm[Hg] 137 mm[Hg] A THENA ([facility]) Body weight 3593.6 [oz_av] 3593.6 [oz_av] ATHEN A ([facility]) Diastolic blood pressure 87 mm[Hg] 87 mm[Hg] MARJORIE ([facility]) Diastolic blood pressure 96 mm[Hg] 96 mm[Hg] MARJORIE ([facility]) Body height 71 [in_i] 71 [in_i] MARJORIE ([facility]) Body mass index (BMI) [Ratio] 31.3 kg/m2 31.3 k g/m2 MARJORIE ([facility]) Systolic blood pressure 132 mm[Hg] 132 mm[Hg] A AIDEE ([facility]) Systolic blood pressure 137 mm[Hg] 137 mm[Hg] A THENTanika ([facility]) Body weight 3593.6 [oz_av] 3593.6 [oz_av] IRLANDA Sagastume ([facility]) Systolic blood pressure 112 mm[Hg] 112 mm[Hg] S [facility] Diastolic blood pressure 78 mm[Hg] 78 mm[Hg] [facility] Heart rate 74 /min 74 /min [facility] Body temperature 36.78 Nic 36.78 Nic [facility] Respiratory rate 18 /min 18 /min [facility] Oxygen saturation in Arterial blood by Pulse oximetry 96 % 96 % [facility] Body height 180.3 cm 180.3 cm [facility] Body weight 104.237 kg 104.237 kg [facility] Body mass index (BMI) [Ratio] 32.05 kg/m2 32.05 kg/m2 [facility] ID Date Data Source [id number] 05/08/2020 05:57:13 PM [facility] Name Value Range Interpretation Code Description Data Source(s) WEIGHT RECORDED 215 lb 215 lb [facility] Body height Measured 71 in 71 in [facility] ID Date Data Source [id number] 04/21/2020 02:08:24 PM [facility] Name Value Range Interpretation Code Description Data Source(s) TRANSFER FROM [facility] Patient Treatment Plan of Care Planned Activity Planned Date Details Description Data Source (s) 24 HR Nicotine 0.875 MG/HR Transdermal Patch 04/13/2020 12:00:00 AM [facility] pantoprazole 40 MG Delayed Release Oral Tablet 04/13/2020 12:00:00 AM [facility] Cholecalciferol 1000 UNT Oral Tablet 04/13/2020 12:00:00 AM [facility] Melatonin 5 MG Oral Tablet 04/12/2020 10:00:00 PM [facility] Baclofen 10 MG Oral Tablet 04/12/2020 12:00:00 AM [facility] Prednisone 50 MG Oral Tablet 04/12/2020 12:00:00 AM [facility] Prednisone 50 MG Oral Tablet 04/12/2020 12:00:00 AM [facility] Prednisone 20 MG Oral Tablet 04/12/2020 12:00:00 AM [facility] Nortriptyline 10 MG Oral Capsule 04/12/2020 12:00:00 AM [facility] Melatonin 5 MG Oral Tablet 04/12/2020 12:00:00 AM [facility] methylPREDNISolone (MEDROL, ROSALIO,) 4 MG tablet 01/06/2020 12:00:00 A M [facility] Oxycodone Hydrochloride 5 MG Oral Tablet 01/06/2020 12:00:00 AM [facility] Ondansetron 8 MG Disintegrating Oral Tablet MARJORIE ([facility]) Naproxen 500 MG Oral Tablet MARJORIE ([facility]) Magnesium Hydroxide 80 MG/ML Oral Suspension MARJORIE ([facility]) methylprednisolone 4 mg tablets in a dos e pack TAKE BY MOUTH FOLLOWING PACKAGE INSTRUCTIONS MARJORIE ([facility]) Methocarbamol 750 MG Oral Tablet MARJORIE ([facility]) Methocarbamol 500 MG Oral Tablet MARJORIE ([facility]) Ketorolac Tromethamine 10 MG Oral Tablet MARJORIE ([facility]) gabapentin 100 MG Oral Capsule MARJORIE ([facility]) Cyclobenzaprine hydrochloride 10 MG Oral Tablet MARJORIE ([facility]) Baclofen 5 MG Oral Tablet AT NESHA ([facility]) Azithromycin 250 MG Oral Tablet MARJORIE ([facility]) albuterol sulfate HFA 90 mcg/actuation a erosol inhaler INHALE 4 PUFFS EVERY 4 TO 6 HOURS NEEDED FOR WHEEZING MARJORIE ([facility]) 24 HR venlafaxine 37.5 MG Extended Release Oral Capsule MARJORIE ([facility]) tramadol hydrochloride 50 MG Oral Tablet MARJORIE ([facility]) 12 HR Oxycodone Hydrochloride 60 MG Extended Release Oral Ta blet [Oxycontin] MARJORIE ([facility]) 12 HR Oxycodone Hydrochloride 30 MG Extended Release Oral Ta blet [Oxycontin] MARJORIE ([facility]) Oxycodone Hydrochloride 5 MG Oral Tablet MARJORIE ([facility]) Oxycodone Hydrochloride 10 MG Oral Tablet MARJORIE ([facility]) oxycodone MARJORIE ([facility]) Ondansetron 8 MG Disintegrating Oral Tablet MARJORIE ([facility]) Naproxen 500 MG Oral Tablet MARJORIE ([facility]) Magnesium Hydroxide 80 MG/ML Oral Suspension MARJORIE ([facility]) methylprednisolone 4 mg tablets in a dos e pack TAKE BY MOUTH FOLLOWING PACKAGE INSTRUCTIONS MARJORIE ([facility]) Methocarbamol 750 MG Oral Tablet MARJORIE ([facility]) Methocarbamol 500 MG Oral Tablet MARJORIE ([facility]) Ketorolac Tromethamine 10 MG Oral Tablet MARJORIE ([facility]) gabapentin 100 MG Oral Capsule MARJORIE ([facility]) Cyclobenzaprine hydrochloride 10 MG Oral Tablet MARJORIE ([facility]) Baclofen 5 MG Oral Tablet AT NESHA ([facility]) Azithromycin 250 MG Oral Tablet MARJORIE ([facility]) albuterol sulfate HFA 90 mcg/actuation a erosol inhaler INHALE 4 PUFFS EVERY 4 TO 6 HOURS NEEDED FOR WHEEZING MARJORIE ([facility]) 24 HR venlafaxine 37.5 MG Extended Release Oral Capsule MARJORIE ([facility]) tramadol hydrochloride 50 MG Oral Tablet MARJORIE ([facility]) 12 HR Oxycodone Hydrochloride 60 MG Extended Release Oral Ta blet [Oxycontin] MARJORIE ([facility]) 12 HR Oxycodone Hydrochloride 30 MG Extended Release Oral Ta blet [Oxycontin] MARJORIE ([facility]) Oxycodone Hydrochloride 5 MG Oral Tablet MARJORIE ([facility]) Oxycodone Hydrochloride 10 MG Oral Tablet MARJORIE ([facility]) oxycodone MARJORIE ([facility]) Ondansetron 8 MG Disintegrating Oral Tablet MARJORIE ([facility]) Naproxen 500 MG Oral Tablet MARJ[facility]IE ([facility]) Magnesium Hydroxide 80 MG/ML Oral Suspension MARJORIE ([facility]) methylprednisolone 4 mg tablets in a dos e pack TAKE BY MOUTH FOLLOWING PACKAGE INSTRUCTIONS MARJORIE ([facility]) Methocarbamol 750 MG Oral Tablet MARJORIE ([facility]) Methocarbamol 500 MG Oral Tablet MARJORIE ([facility]) Ketorolac Tromethamine 10 MG Oral Tablet MARJORIE ([facility]) gabapentin 100 MG Oral Capsule MARJORIE ([facility]) Cyclobenzaprine hydrochloride 10 MG Oral Tablet MARJORIE ([facility]) Baclofen 5 MG Oral Tablet AT NESHA ([facility]) Azithromycin 250 MG Oral Tablet MARJORIE ([facility]) albuterol sulfate HFA 90 mcg/actuation a erosol inhaler INHALE 4 PUFFS EVERY 4 TO 6 HOURS NEEDED FOR WHEEZING MARJORIE ([facility]) Baclofen 5 MG Oral Tablet [facility] tramadol hydrochloride 50 MG Oral Tablet MARJORIE ([facility]) Prednisone 50 MG Oral Tablet MARJORIE ([facility]) 12 HR Oxycodone Hydrochloride 60 MG Extended Release Oral Ta blet [Oxycontin] MARJORIE ([facility]) 12 HR Oxycodone Hydrochloride 30 MG Extended Release Oral Ta blet [Oxycontin] MARJORIE ([facility]) Oxycodone Hydrochloride 5 MG Oral Tablet MARJORIE ([facility]) Oxycodone Hydrochloride 10 MG Oral Tablet MARJORIE ([facility]) oxycodone MARJ[facility]IE ([facility]) Ondansetron 8 MG Disintegrating Oral Tablet MARJORIE ([facility]) Naproxen 500 MG Oral Tablet MAR[facility]IE ([facility]) Magnesium Hydroxide 80 MG/ML Oral Suspension MARJORIE ([facility]) methylprednisolone 4 mg tablets in a dos e pack TAKE BY MOUTH FOLLOWING PACKAGE INSTRUCTIONS MARJORIE ([facility]) Methocarbamol 500 MG Oral Tablet MARJORIE ([facility]) Ketorolac Tromethamine 10 MG Oral Tablet MARJORIE ([facility]) gabapentin 100 MG Oral Capsule MARJORIE ([facility]) Cyclobenzaprine hydrochloride 10 MG Oral Tablet MARJORIE ([facility]) Azithromycin 250 MG Oral Tablet MARJORIE ([facility]) albuterol sulfate HFA 90 mcg/actuation a erosol inhaler INHALE 4 PUFFS EVERY 4 TO 6 HOURS NEEDED FOR WHEEZING MARJORIE ([facility]) Prednisone 50 MG Oral Tablet MARJORIE ([facility]) 12 HR Oxycodone Hydrochloride 60 MG Extended Release Oral Ta blet [Oxycontin] MARJORIE ([facility]) 12 HR Oxycodone Hydrochloride 30 MG Extended Release Oral Ta blet [Oxycontin] MARJORIE ([facility]) Oxycodone Hydrochloride 10 MG Oral Tablet MARJORIE ([facility]) oxycodone MARJORIE ([facility]) Ondansetron 8 MG Disintegrating Oral Tablet MARJORIE ([facility]) Naproxen 500 MG Oral Tablet MARJORIE ([facility]) Magnesium Hydroxide 80 MG/ML Oral Suspension MARJORIE ([facility]) Methocarbamol 500 MG Oral Tablet MARJORIE ([facility]) Ketorolac Tromethamine 10 MG Oral Tablet MARJORIE ([facility]) gabapentin 100 MG Oral Capsule MARJORIE ([facility]) Cyclobenzaprine hydrochloride 10 MG Oral Tablet [facility] [facility] Azithromycin 250 MG Oral Tablet [facility] ([facility]) vitamin d3 25 mcg (1000 ut) tabs [facility] ([facility]) 24 HR venlafaxine 37.5 MG Extended Release Oral Capsule [facility] ([facility]) tramadol hydrochloride 50 MG Oral Tablet [facility] ([facility]) Docusate Sodium 50 MG / sennosides, PRISON 8.6 MG Oral Tablet [facility] ([facility]) Prednisone 50 MG Oral Tablet [facility] ([facility]) pantoprazole 40 MG Delayed Release Oral Tablet [facility] ([facility]) 12 HR Oxycodone Hydrochloride 60 MG Extended Release Oral Ta blet [Oxycontin] [facility] ([facility]) 12 HR Oxycodone Hydrochloride 30 MG Extended Release Oral Ta blet [Oxycontin] MAR[facility] ([facility]) Oxycodone Hydrochloride 5 MG Oral Tablet [facility] ([facility]) Oxycodone Hydrochloride 10 MG Oral Tablet [facility] ([facility]) oxycodone [facility] ([facility]) Ondansetron 4 MG Oral Tablet [facility] ([facility]) Ondansetron 8 MG Disintegrating Oral Tablet [facility] ([facility]) Nortriptyline 50 MG Oral Capsule [facility] ([facility]) Nortriptyline 25 MG Oral Capsule [facility] ([facility]) Nortriptyline 10 MG Oral Capsule [facility] ([facility]) 24 HR Nicotine 0.875 MG/HR Transdermal Patch [facility] ([facility]) Naproxen 500 MG Oral Tablet [facility] ([facility]) Magnesium Hydroxide 80 MG/ML Oral Suspension [facility] ([facility]) methylprednisolone 4 mg tablets in a dos e pack TAKE BY MOUTH FOLLOWING PACKAGE INSTRUCTIONS [facility] ([facility]) Methocarbamol 750 MG Oral Tablet [facility] ([facility]) Methocarbamol 500 MG Oral Tablet [facility] ([facility]) Melatonin 5 MG Oral Tablet A THENA ([facility]) Ketorolac Tromethamine 10 MG Oral Tablet [facility] ([facility]) Haloperidol 2 MG Oral Tablet [facility] ([facility]) gabapentin 100 MG Oral Capsule [facility] ([facility]) Docusate Sodium 100 MG Oral Capsule [DOK] [facility] ([facility]) Cyclobenzaprine hydrochloride 10 MG Oral Tablet MRAJORIE ([facility]) Clonazepam 0.5 MG Oral Tablet [facility] ([facility]) Cholecalciferol 1000 UNT Oral Capsule [facility] ([facility]) Baclofen 5 MG Oral Tablet AT NESHA ([facility]) Baclofen 10 MG Oral Tablet A THENA ([facility]) Azithromycin 250 MG Oral Tablet [facility] ([facility]) Amlodipine 10 MG Oral Tablet [facility] ([facility]) albuterol sulfate HFA 90 mcg/actuation a erosol inhaler INHALE 4 PUFFS EVERY 4 TO 6 HOURS NEEDED FOR WHEEZING [facility] ([facility]) Acetaminophen 500 MG Oral Tablet [facility] ([facility]) tramadol hydrochloride 50 MG Oral Tablet [facility] ([facility]) 12 HR Oxycodone Hydrochloride 60 MG Extended Release Oral Ta blet [Oxycontin] [facility]IE ([facility]) 12 HR Oxycodone Hydrochloride 30 MG Extended Release Oral Ta blet [Oxycontin] [facility] ([facility]) Oxycodone Hydrochloride 5 MG Oral Tablet [facility] ([facility]) Oxycodone Hydrochloride 10 MG Oral Tablet [facility] ([facility]) oxycodone [facility] ([facility])
[2021-01-10] MEDS ORDERED: methylPREDNISolone 125MG 2ML VIAL IV ONE (21:30)
[2021-01-10] MEDS ORDERED: diazePAM 10MG/2ML SYRINGE (J3360 PER 5MG) IV ONE (21:30)
[2021-01-10] MEDS ORDERED: MORPHINE 4 MG/ML 1ML VIAL/SYRINGE (J2270) IV ONE (21:30)
[2021-01-10] MEDS ORDERED: LIDOCAINE 5% (LIDODERM) PATCH TD ONE (21:30)
--- NOTE | 2021-01-10 22:11 | REPVR ---
PROCEDURE INFORMATION: Exam: XR Lumbosacral Spine Exam date and time: 01/10/2021 9:49 PM Age: 35 years old Clinical indication: Low back pain; Prior surgery; Surgery date: 6+ months; Additional info: Fall, prev surgery, PT tender TECHNIQUE: Imaging protocol: XR of the lumbosacral spine. Views: 4 or 5 views. COMPARISON: CR Spine, Lumbosacral, partial 06/08/2020 2:12 PM FINDINGS: Bones/joints: Status post lower lumbar interbody fusion of L5 on S1 using transpedicular screws and metallic rods. Disc executive admin demonstrated at L5-S1. Otherwise unremarkable. Soft tissues: Cholecystectomy. Otherwise unremarkable. IMPRESSION: Status post lower lumbar interbody fusion of L5 on S1. Disc executive admin demonstrated at L5-S1. Electronically signed by: Thee Martinez On 01/10/2021 22:11:07 PM
--- OUTSIDE RECORDS SUMMARY | 2021-01-10 22:11 | CCD ---
Author Author [facility] Organization [facility] Address Unknown Phone Unavailable Care Team Providers Care Repair Department Supervisor Name Role Phone Alicia Martin MD Unavailable [...] Unavailable Unavailable NICOLAS AN MD Unavailable Unavailable JOHNSNO, ANTONI MARIBEL RPA-C Unavailable Unavailable JOHNSON, ANTONI [...] JOHNSON, ANTONI MARIBEL RPA-C Unavailable Unavailable JOHNSON, ANOTNI MARIBEL RPA-C Unavailable Unavailable JOHNSON, ANTONI MARIBEL RPA-C Unavailable Unavailable JOHNSON, ANTONI MARIBEL RPA-C Unavailable Unavailable JOHNSON, ANTONI MARIBEL RPA-C Unavailable Unavailable JOHNSON, ANTONI MARIBEL RPA-C Unavailable Unavailable JOHNSON, ANTONI MARIBEL RPA-C Unavailable Unavailable JOHNSON, ANTONI MARIBEL RPA-C Unavailable Unavailable JOHNSON, ANTONI MARIBEL RPA-C Unavailable Unavailable JOHNSON, ANTONI MARIBEL RPA-C Unavailable Unavailable Tanika Day MD Juan Unavailable Shay MD, A Juan Unavailable [...] Juan Unavailable Shay MD, A Juan Unavailable Shya MD, A Juan Unavailable Shay MD, A [...] JOHNSON, ANTONI MARIBEL RPA-C Unavailable Unavailable JOHNSON, ANTNOI MARIBEL RPA-C Unavailable Unavailable JOHNSON, ANTONI MARIBEL [...] Unavailable Unavailable Maryann RICHARD MD Unavailable Unavailable HILARYMaryann Carter MD Unavailable Unavailable HILARYMaryann NUNEZ MD Unavailable Unavailable HILARY, Maryann WELLS MD [...] Unavailable Unavailable PANG, CAITLIN Unavailable Unavailable PANG, CAITILN Unavailable Unavailable PANG, CAITLIN Unavailable Unavailable PANG, CAITLIN Unavailable Unavailable PANG, CAITLIN Unavailable Unavailable PANG, CAITLIN Unavailable Unavailable [place], Elle QA AUTOMATION DEVELOPER Unavailable Unavailable [place], Elle QA AUTOMATION DEVELOPER Unavailable Unavailable [place], Elle QA AUTOMATION DEVELOPER Unavailable Unavailable [place], Elle QA AUTOMATION DEVELOPER Unavailable Unavailable Nicole, Elle QA AUTOMATION DEVELOPER Unavailable Unavailable Nicole, Elle QA AUTOMATION DEVELOPER Unavailable Unavailable [place], Elle QA AUTOMATION DEVELOPER Unavailable Unavailable [place], Elle QA AUTOMATION DEVELOPER Unavailable Unavailable [place], Elle QA AUTOMATION DEVELOPER Unavailable Unavailable Nicole, Elle QA AUTOMATION DEVELOPER Unavailable Unavailable Nicole, Elle QA AUTOMATION DEVELOPER Unavailable Unavailable [place], Elle QA AUTOMATION DEVELOPER Unavailable Unavailable [place], Elle QA AUTOMATION DEVELOPER Unavailable Unavailable [place], Elle QA AUTOMATION DEVELOPER Unavailable Unavailable Nicole, Elle QA AUTOMATION DEVELOPER Unavailable Unavailable [place], Elle QA AUTOMATION DEVELOPER Unavailable Unavailable [place], Elle QA AUTOMATION DEVELOPER Unavailable Unavailable [place], Elle QA AUTOMATION DEVELOPER Unavailable Unavailable Nicole, Elle QA AUTOMATION DEVELOPER Unavailable Unavailable Nicole, Elle QA AUTOMATION DEVELOPER Unavailable Unavailable [place], Elle QA AUTOMATION DEVELOPER Unavailable Unavailable [place], Elle QA AUTOMATION DEVELOPER Unavailable Unavailable [place], Elle QA AUTOMATION DEVELOPER Unavailable Unavailable [place], Elle QA AUTOMATION DEVELOPER Unavailable Unavailable [place], Elle QA AUTOMATION DEVELOPER Unavailable Unavailable [place], Elel QA AUTOMATION DEVELOPER Unavailable Unavailable Nicole, Elle QA AUTOMATION DEVELOPER Unavailable Unavailable Nicole, Elle QA AUTOMATION DEVELOPER Unavailable Unavailable [place], Elle QA AUTOMATION DEVELOPER Unavailable Unavailable [place], Elle QA AUTOMATION DEVELOPER Unavailable Unavailable [place], Elle QA AUTOMATION DEVELOPER Unavailable Unavailable [place], Elle QA AUTOMATION DEVELOPER Unavailable Unavailable [place], Elle QA AUTOMATION DEVELOPER Unavailable Unavailable Nicole, Elle QA AUTOMATION DEVELOPER Unavailable Unavailable [place], Elle QA AUTOMATION DEVELOPER Unavailable Unavailable Julieta VALLE MD Unavailable Unavailable [...] Maryann GRIGGS MD Unavailable [facility]available [facility] Unavailable Unavailable NICOLAS AN Unavailable Unavailable JOHNSON, [...] Unavailable Maryann ZAMORANO MD Unavailable Unavailable Maryann AZMORANO MD Unavailable Unavailable Maryann ZAMORANO MD Unavailable [...] CAITLIN Unavailable Unavailable PANG, CAITLIN Unavailable Unavailable CHANLIECCO, C YOAV MD Unavailable [...] is protected by Article 27-F of the [facility] Public Health law. If you continue you may have access to information: Regarding HIV / AIDS; Provided by facilities licensed or operated by the [facility] Office of Mental Health; or Provided by the [facility] Office for People With Developmental Disabilities. If such information is present, then the following [facility] mandated warning applies: This information has [...] law may result in a fine or half-way sentence or both. A general authorization for the release of medical or other information is NOT sufficient authorization for further disc losure. Allergies and Adverse Reactions Type Description Substance Reaction Status Data Source(s ) Propensity to adverse reactions METHYLPREDNISOLONE METHYLPREDNISOLONE [facility] Drug allergy TORADOL TORADOL RASH; SWELLING [facility] Drug allergy GABAPENTIN GABAPENTIN HIVES [facility] Propensity to adverse reactions NO KNOWN ALLERGIES NO KNOWN ALLERGIES [facility] Propensity to adverse reactions KETOROLAC TROMETHAMINE KETOROLAC TR OMETHAMINE [facility] Propensity to adverse reactions GABAPENTIN GABAPENTIN [facility] Family History Family Member Name Family Member Gender Family Member Status Date o f Status Description Data Source(s) Unknown Male Problem MEDENT ([facility], ) () Encounters Encounter Providers Location Date Indications Data Source(s ) Outpatient Attender: Elle Rivera [facility] 10/21/2020 12:00: 00 AM [facility] Outpatient Attender: Elle Nicole [facility] 10/18/2020 12:00: 00 AM [facility] Outpatient Attender: Ellemauro Marinford [facility] [id number] 12:00:00 AM [facility] 07/21/2020 03:50:[facility]: Elle CARRASCOPAttender: Juan miranda MD 07/16/2020 12:00:00 AM [facility] Maribel Johnson RPA-C: [address], [place] [address], Ph. Attender: MARIBEL JOHNSON RPA-C [facility] Medical 07/08/2020 12:00:00 AM EDT [facility] ([facility]) Outpatient Attender: Juan Day MD 07/02/2020 12:00:00 A M [facility] Mario Martin MD: [address], [place] [address], Ph. Attender: Mario Martin MD [facility] Medical 06/16/2020 12:00:00 AM EDT MAR[facility] ([facility]) Mario Martin MD: [address], [place] [address], Ph. Attender: Mario Martin MD [facility] Medical 06/16/2020 12:00:00 AM EDT MAR[facility] ([facility]) Outpatient Attender: Juan SCHREIBEReferrer: Mario Vargas 05/31/2020 12:00:00 AM EDT [facility] Outpatient Attender: ELKE VEGAS MD 05/26/2020 12:0 0:00 AM EDT [facility] Outpatient Attender: Juan Day MD [id number] 2020 12:00:00 AM EDT - 04/28/2020 05:19:40 PM EDT Spinal stenosis, site unspecified [facility] Spinal stenosis, site unspecified Emergency Attender: CHAPITO LOVEConsultant: MARIBEL JOHNSON RPA-C 04/19/2020 08:39:00 PM EDT - 04/19/2020 11:30:00 PM EDT [facility] Patient discharged. Outpatient Attender: CAITLIN Monteiroultant: MARIBEL JOHNSON RPA-C 04/16/2020 02:27:00 PM EST - 04/16/2020 03:27:00 PM EST [facility] Caitlin Pang RPA-C: [address], [place] [address], Ph. Attender: CAITLIN PANG [facility] Medical 04/16/2020 12:00:00 AM EST MAR[facility]ORIE ([facility]) OSCAR SuarezC: [address], [place] [address], Ph. Attender: CAITLIN PANG [facility] Medical 04/16/2020 12:00:00 AM EST MARJORIE ([facility]) Caitlin Pang RPA-C: [address], [place] [address], Ph. Attender: CAITLIN PANG [facility] Medical 04/16/2020 12:00:00 AM EST [facility] ([facility]) Caitlin Pang RPA-C: [address], [place] [address], Ph. Attender: CAITLIN PANG [facility] Medical 04/16/2020 12:00:00 AM EST [facility]IE ([facility]) Outpatient Attender: [facility] 04/09/2020 12:3 5:00 PM EST [facility] Emergency Attender: YOAV VARGAS MDConsultant: DIYA JOHNSON RPA-C 04/09/2020 11:42:00 AM EST - 04/09/2020 03:55:00 PM EST [facility] Patient discharged. Inpatient Attender: Juan Davila vinnie: KARIME DUFFY MDAdmitter: KARIME DUFFY MDReferrer: KARIME DUFFY MD [id number] 04/09/2020 12:00: 00 AM EST - 04/12/2020 12:00:00 AM EST Cerebral infarction, unspecified [facility] Cerebral infarction, unspecified Patient discharged. OSCAR SuarezC: [address], [place] [address], Ph. Attender: CAITLIN PANG [facility] Medical 03/31/2020 12:00:00 AM EST MAR[facility] ([facility]) Caitlin Pang RPA-C: [address], [place] [address], Ph. Attender: CAITLIN PANG [facility] Medical 03/31/2020 12:00:00 AM EST [facility] ([facility]) Caitlin Pang RPA-C: [address], [place] [address], Ph. Attender: CAITLIN PANG [facility] Medical 03/31/2020 12:00:00 AM EST [facility] ([facility]) OSCAR SuarezC: [address], [place] [address], Ph. Attender: CAITLIN PANG [facility] Medical 03/31/2020 12:00:00 AM EST [facility] ([facility]) OSCAR SuarezC: [address], [place] [address], Ph. Attender: CAITLIN PANG [facility] Medical 03/31/2020 12:00:00 AM EST [facility] ([facility]) Emergency Attender: CHAPITO Avalossultant: MARIBEL GRISSOM 03/29/2020 11:40:00 AM EST - 03/29/2020 02:45:00 PM EST [facility] Patient discharged. Outpatient [id number] [address] 02/17/2020 12:00:00 AM EST eCW1 ([facility]) Recurring Patient Referrer: MARIBEL GRISSOM 01/16/2020 1 2:45:26 PM EST [facility] OSCAR SimmonsC: [address], [place] [address], Ph. Attender: MARIBEL GRISSOM [facility] Medical 01/09/2020 12:00:00 AM EST [facility] ([facility]) OSCAR SimmonsC: [address], [place] [address], Ph. Attender: MARIBEL GRISSOM [facility] Medical 01/09/2020 12:00:00 AM EST MAR[facility] ([facility]) Maribel Johnson, RPA-C: [address], [place] [address], Ph. Attender: MARIBEL JOHNSON RPA-C [facility] Medical 01/09/2020 12:00:00 AM EST [facility] ([facility]) Maribel Johnson, RPA-C: [address], [place] [address], Ph. Attender: MARIBEL JOHNSON RPA-C [facility] Medical 01/09/2020 12:00:00 AM EST [facility] ([facility]) Maribel Johnson, RPA-C: [address], [place] [address], Ph. Attender: MARIBEL JOHNSON RPA-C [facility] Medical 01/09/2020 12:00:00 AM EST [facility] ([facility]) Maribel Johnson, RPA-C: [address], [place] [address], Ph. Attender: MARIBEL JOHNSON RPA-C [facility] Medical 01/09/2020 12:00:00 AM EST [facility] ([facility]) Outpatient Attender: SUSAN ZAMORANO MDAt tender: REJI GRIGGS MDAttender: ANIL CHAVEZ-CAttender: DAREN RICHARD MDAttender: NICOLAS SANZttender: NICOLAS AN MDAdmitter: REJI GRIGGS MDReferrer: NICOLAS AN MDConsultant: ANIL CHAVEZ-CConsultant: DAREN RICHARD MD [id number] 01/04/2020 09:17:00 PM EST - 01/06/2020 05:22:00 PM EST [facility] Patient discharged. Emergency Attender: ALMAZ VALLE MDConsultant: MARIBEL JOHNSON RPA-C 01/04/2020 04:23:00 PM EST - 01/04/2020 07:47:00 PM EST [facility] Patient discharged. Outpatient Attender: MARIBEL ALEX RPAArie [facility] 11/17/2019 04:40:02 PM EDT [facility] Outpatient Attender: MARIBEL ALEX RPA-C [facility] 11/17/2019 04:40:02 PM EDT [facility] Outpatient Attender: MARIBEL ALEX RPA-C [facility] 11/14/2019 03:45:03 PM EDT [facility] Outpatient Attender: REJI GRIGGS MDReferrer: MARIBEL FR TINOCO RPA-C 11/12/2019 01:02:29 PM EDT [facility] lists Immunizations Vaccine Date Status Description Data Source(s) New in 2011. IIV4 01/09/2020 08:55:24 AM EST completed .5 mL [facility] ([facility]) New in 2011. IIV4 01/09/2020 08:55:24 AM EST completed 0.5 mL [facility]IE ([facility]) New in 2011. IIV4 01/09/2020 08:55:24 AM EST completed .5 mL [facility] ([facility]) New in 2011. IIV4 01/09/2020 08:55:24 AM EST completed .5 mL [facility] ([facility]) New in 2011. IIV4 01/09/2020 08:55:24 AM EST completed .5 mL [facility] ([facility]) New in 2011. IIV4 01/09/2020 08:55:24 AM EST completed .5 mL [facility] ([facility]) Medications Medication Brand Name [...] Place 1 patch onto the skin daily [facility] pantoprazole 40 MG Delayed Release Oral Tablet Pantoprazole Sodium 40 MG Oral Tablet Delayed Release (PROTONIX) Pantoprazole Sodium 40 MG Oral Tablet De layed Release (PROTONIX) 04/13/2020 12:00:00 AM EST 40 mg Oral active Take 1 tablet by mouth daily [facility] Cholecalciferol 1000 UNT Oral Tablet Vit leal D3 25 MCG (1000 UT) Oral Tablet (CHOLECALCIFEROL) Vitamin D3 25 MCG (1000 UT) Oral Tablet (CHOLECALCIFER OL) 04/13/2020 12:00:00 AM EST 1000 U Oral active Take 1 tablet by mouth daily [facility] Melatonin 5 MG Oral Tablet melatonin tablet 5 mg melatonin t ablet 5 mg 04/12/2020 10:00:00 PM EST 5 mg Oral active 5 mg, Oral, Nightly, First dose on Sun04/12/20 at 2200, For 30 days [facility] Medication administered onsite Nortriptyline 10 MG Oral Capsule nortriptyline (PAMELO R) capsule 10 mg nortriptyline (PAMELOR) capsule 10 mg 04/12/2020 10:30:00 AM EST 10 m g Oral active 10 mg, Oral, Nightly, First dose on Sun04/12/20 at 1030, For 30 days [facility] Medication administered onsite Cholecalciferol 1000 UNT Oral Tablet vit leal D3 (CHOLECALCIFEROL) tablet 1,000 Units vitamin D3 (CHOLECALCIFEROL) tablet 1,000 Units 2020 10:15:00 AM EST 1000 U Oral active 1,000 Un its, Oral, Daily Standard, First dose on Sun04/12/20 at 1015, For 30 days
25 mcg vitamin D3 = 1,000 international units vitamin D3.
[facility] Medication administered onsite Baclofen 10 MG Oral Tablet baclofen (LIORESAL) tablet 10 mg baclofen (LIORESAL) tablet 10 mg 04/12/2020 10:15:00 AM EST 10 mg Oral activ e 10 mg, Oral, Three Times Daily Standard, First dose on Sun04/12/20 at 1015, For 30 days [facility] Medication administered onsite Prednisone 20 MG Oral Tablet predniSONE 20 MG Oral Tab let (DELTASONE) predniSONE 20 MG Oral Tablet (DELTASONE) 04/12/2020 12:00:00 AM EST 600 mg Ora l aborted Take 30 tablets by mouth Two Jim es Daily for 2 days [facility] Melatonin 5 MG Oral Tablet Melatonin 5 MG Oral Tablet 2020 12:00:00 AM EST 5 mg Oral active Take 1 tablet by mouth nightly [facility] Nortriptyline 10 MG Oral Capsule Nortriptyline HCl 10 MG Oral Capsule (PAMELOR) Nortriptyline HCl 10 MG Oral Capsule (PAMELOR) 04/12/2020 12:00:00 AM EST 10 mg Oral active Take 1 capsule by mouth nightly [facility] Baclofen 10 MG Oral Tablet Baclofen 10 MG Oral Tablet (LIORESAL) Baclofen 10 MG Oral Tablet (LIORESAL) 04/12/2020 12:00:00 AM EST 10 mg Oral active Take 1 tablet by mouth Three times daily [facility] Prednisone 50 MG Oral Tablet predniSONE 50 MG Oral Tab let (DELTASONE) predniSONE 50 MG Oral Tablet (DELTASONE) 04/12/2020 12:00:00 AM EST 600 mg Ora l active Take 12 tablets by mouth Two Jim es Daily for 2 days [facility] Prednisone 50 MG Oral Tablet predniSONE 50 MG Oral Tab let (DELTASONE) predniSONE 50 MG Oral Tablet (DELTASONE) 04/12/2020 12:00:00 AM EST 600 mg Ora l aborted Take 12 tablets by mouth Two Jim es Daily for 2 days [facility] Acetaminophen 325 MG / Hydrocodone Steve trate 5 MG Oral Tablet HYDROcodone- acetaminophen (LORTAB) 5-325 MG per tablet 1 tablet HYDROcodone-acetaminophen (LORTAB) 5-325 MG per tablet 1 tablet 04/11/2020 10:30:00 PM EST 1 {tbl} Oral completed 1 tablet, Oral, Once, 04/11/20 at 2230, For 1 dose
Maximum daily dose of acetaminophen is 3,000 mg from all sources in 24 hours.
[facility] Medication administered onsite fentaNYL (SUBLIMAZE) (PF) injection 25 mcg [id number] 04/11/2020 04:30:00 PM EST 25 ug Intravenous completed 25 mcg, Intravenous, Once, 04/11/20 at 1630, For 1 dose [facility] Medication administered onsite 24 HR Nicotine 0.875 MG/HR Transdermal P atch nicotine (NICODERM CQ) 21 MG/24HR 1 patch nicotine (NICODERM CQ) 21 MG/24HR 1 patch 04/11/2020 11:15:00 AM EST 1 {patch} Transdermal active 1 patch, Transdermal, Administer over 24 Hours, Daily Standard, First dose on 04/11/20 at 1115, For 30 days [facility] Medication administered onsite Alprazolam 0.25 MG Oral Tablet alprazolam (XANAX) tabl et 0.5 mg alprazolam (XANAX) tablet 0.5 mg 04/11/2020 11:15:00 AM EST 0.5 mg Oral active 0.5 mg, Oral, Three Times Daily-PRN, Anxiety, Starting 04/11/20 at 1115, For 48 hours [facility] Medication administered onsite pantoprazole 40 MG Delayed Release Oral Tablet pantoprazole (PROTONIX) EC tablet 40 mg pantoprazole (PROTONIX) EC tablet 40 mg 04/11/2020 09:00:[address] 40 mg Oral active 40 mg, Ora l, Daily Standard, First dose on 04/11/20 at 0900, For 30 days
Do not crush or chew
[facility] Medication administered onsite Melatonin 5 MG Oral Tablet melatonin tablet 5 mg melatonin t ablet 5 mg 04/10/2020 07:30:00 PM EST 5 mg Oral completed 5 mg, Oral, Once, 04/10/20 at 1930, For 1 dose [facility] Medication administered onsite Acetaminophen 325 MG [...] mg from all sources in 24 hours.
[facility] Medication administered onsite methylPREDNISolone sodium succinate (DAVID U-MEDROL) 1,000 mg in sodium chloride 0.9 % 100 mL IVPB 04/10/2020 03:30:00 PM EST 1000 mg Intravenous active 1,000 mg, Intravenous, at 10 0 mL/hr, Daily Standard, First dose on 04/10/20 at 1530, For 5 days [facility] Medication administered onsite gadobutrol (GADAVIST) contrast injection 9 mL 60015 01:15:00 PM EST 0.1 mL/kg Intravenous completed 9 mL (ro unded from 9.43 mL = 0.1 mL/kg 94.3 kg Order-specific weight), Intravenous, 1 TIME IMAGING, 04/10/20 at 1315, For 1 dose
Do not mix or administer in the same IV line with other medi cations.
[facility] Medication administered onsite atorvastatin 40 MG Oral Tablet atorvastatin (LIPITOR) tablet 80 mg atorvastatin (LIPITOR) tablet 80 mg 04/10/2020 09:00:00 AM EST 80 mg Oral aborted 80 mg, Oral, Daily Standard, First dose on 04/10/20 at 0900, For 30 days [facility] Medication administered onsite 0.4 ML Enoxaparin [...] 10-12 hours prior to removing epidural catheter.
[facility] Medication administered onsite lidocaine (LIDODERM) 5 % patch 1 patch [id number] 09:00:00 AM EST 1 {patch} Transdermal active 1 patch, T ransdermal, Daily Standard, First dose on 04/10/20 at 0900, For 30 days
Apply to area of pain per patient request 12 hours on - 12 hours off
[facility] Medication administered onsite clopidogrel 75 MG Oral Tablet clopidogrel (PLAVIX) tab let 75 mg clopidogrel (PLAVIX) tablet 75 mg 04/10/2020 09:00:00 AM EST 75 mg Oral aborted 75 mg, Oral, Daily Standard, First dose on 04/10/20 at 0900, For 30 days [facility] Medication administered onsite Lisinopril 10 MG Oral Tablet lisinopril (ZESTRIL) tabl et 10 mg lisinopril (ZESTRIL) tablet 10 mg 04/10/2020 09:00:00 AM EST 10 mg Oral active 10 mg, Oral, Daily Standard, First dose on 04/10/20 at 0900, For 30 days
Check vital signs before administering
[facility] Medication administered onsite Alprazolam 0.25 MG Oral Tablet alprazolam (XANAX) tabl et 0.25 mg alprazolam (XANAX) tablet 0.25 mg 04/10/2020 08:52:50 AM EST 0.25 mg Oral aborted 0.25 mg, Oral, Daily PRN, Anxiety, Starting 04/10/20 at 0852, For 120 hours [facility] Medication administered onsite Acetaminophen 325 MG [...] mg from all sources in 24 hours.
[facility] Medication administered onsite 24 HR venlafaxine 37.5 MG Extended Relea se Oral Capsule venlafaxine (EFFEXOR-XR) 24 hr capsule 37.5 mg venlafaxine (EFFEXOR-XR) 24 hr capsule 37.5 mg 08:00:00 AM EST 37.5 mg Oral active 37.5 mg, Oral, Daily with Breakfast, First dose on 04/10/20 at 0800, For 30 days
Do not crush or chew
[facility] Medication administered onsite Methocarbamol 500 MG Oral Tablet methocarbamol (ROBAXI N) tablet 750 mg methocarbamol (ROBAXIN) tablet 750 mg 04/09/2020 09:15:00 PM EST 75 0 mg Oral aborted 750 mg, Oral, 2 Times Daily, First dose (after last reorder) on Sun04/09/20 at 2115, For 30 days [facility] Medication administered onsite 1 ML Lorazepam 2 MG/ML Injection LORazepam (ATIVAN) in jection 1 mg LORazepam (ATIVAN) injection 1 mg 04/09/2020 09:02:54 PM EST 1 mg Intraveno us aborted 1 mg, Intravenous, O nce PRN, Other, prior to MRI for claustrophobia, Starting Sun04/09/20 at 2102, For 2 days [facility] Medication administered onsite Cyclobenzaprine hydrochloride 10 MG Oral Tablet cyclobenzaprine (FLEXERIL) tablet 10 mg cyclobenzaprine (FLEXERIL) tablet 10 mg 04/09/2020 09:00:00 PM EST 10 mg Oral aborted 10 mg, Oral, 2 T imes Daily, First dose on Sun04/09/20 at 2100, For 30 days [facility] Medication administered onsite Acetaminophen 325 MG [...] mg from all sources in 24 hours.
[facility] Medication administered onsite 37.5 mg 03/30/2020 [...] TABLET BY MOUTH EVERY DAY SOLD: 01/15/2020 [facility] Bisacodyl 10 MG Rectal Suppository bisacodyl (DULCOLAX ) suppository 10 mg bisacodyl (DULCOLAX) suppository 10 mg 01/07/2020 07:00:00 PM EST 10 mg Rectal active 10 mg, Rectal, Once, Sun01/07/20 at 1900, For 1 dose
Post-op day #2 Hold for BM
[facility] Medication administered onsite 4 mg 01/07/2020 12:00:00 AM EST tablets,dose pack 21 TAKE BY MOUTH FOLLOWING PACKAGE INSTRUCTIONS TAKE BY MOUTH FOLLOWING PACKAGE INSTRUCTIONS SOLD: 01/15/2020 [facility] POLYETHYLENE GLYCOL 3350 142 MG/ML Oral Solution polyethylene glycol (GLYCOLAX) packet 17 g polyethylene glycol (GLYCOLAX) packet 17 g 01/06/2020 09:00:00 AM EST 17 g Oral active 17 g, Or al, Daily, First dose on Sun01/06/20 at 0900, Post-op
Start POD #1
[facility] Medication administered onsite Oxycodone Hydrochloride 5 MG Oral Tablet oxyCODONE (ROXICODONE) 5 MG immediate release tablet oxyCODONE (ROXICODONE) 5 MG immediate release tablet 1 03/08/2019 12:00:00 AM EST 2.5 mg Oral active Take 0.5 tablets (2.5 mg total) by mouth every 6 (six) hours as needed Max Daily Amount: 10 mg [facility] methylPREDNISolone (MEDROL, ROSALIO,) 4 MG tablet [id number] 01/06/2020 12:00:00 AM EST 4 mg Oral active Take 1 t ablet (4 mg total) by mouth daily follow package directions [facility] Bisacodyl 10 MG Rectal Suppository bisacodyl (DULCOLAX ) suppository 10 mg bisacodyl (DULCOLAX) suppository 10 mg 01/06/2020 12:00:00 AM EST 10 mg Rectal active 10 mg, Rectal, Daily PRN, constipation, for constipation unrelieved by miralax/MOM, Starting Sun01/06/20 at 0000, For 4 days, Post- op
For post-op day #1, #3, and #4 Hold for BM
[facility] Medication administered onsite Magnesium Hydroxide 80 MG/ML Oral Suspen maxim magnesium hydroxide (MILK OF MAGNESIA) 400 MG/5ML suspension 30 mL magnesium hydroxide (MILK OF MAGNESIA) 4 00 MG/5ML suspension 30 mL 01/06/2020 12:00:00 AM EST 30 mL Oral active 30 mL, Oral, Daily PRN, constipation, Starting Sun01/06/20 at 0000, Post- op
Start Post-op day #1. Hold for BM
[facility] Medication administered onsite 5 mg 01/06/2020 12:00:00 AM EST tablet 15 TAKE 1/2 TABLET (2.5MG) BY MOUTH EVERY 6 HOURS NEEDED - MAXIMUM DAILY DOSE = 2 TABLETS TAKE 1/2 TABLET (2.5MG) BY MOUTH EVERY 6 HOURS NEEDED - MAXIMUM DAILY DOSE = 2 TABLETS SOLD: 01/06/2020 [facility] 1 ML Lorazepam 2 MG/ML Injection LORazepam (ATIVAN) in jection 0.5 mg LORazepam (ATIVAN) injection 0.5 mg 01/05/2020 06:00:00 PM EST 0.5 mg Intrave nous completed 0.5 mg, Intravenous, Once, Sun01/05/20 at 1800, For 1 dose
immediately prior to intravenous use, lorazepam injection must be diluted with an equal volume of sodium chloride 0.9%
[facility] Medication administered onsite Gadoterate Meglumine SOLN 10 mmol [id number] 01/05/2020 05:30:[address] 20 mL Intravenous completed 10 mmol (20 m L), Intravenous, Once, Sun01/05/20 at 1900, For 1 dose [facility] Medication administered onsite Lisinopril 10 MG Oral Tablet lisinopril (PRINIVIL,ZEST RIL) tablet 10 mg lisinopril (PRINIVIL,ZESTRIL) tablet 10 mg 01/05/2020 09:00:00 AM EST 10 mg Oral active 10 mg, Oral, Daily, First dose on Sun01/05/20 at 0900 [facility] Medication administered onsite DAILY REYMUNDO (THERAGRAN) 1 tablet [id number] 01/05/2020 09:00:00 AM EST 1 {tbl} Oral active 1 tablet, Oral, Daily, First dose on Sun01/05/20 at 0900, Post-op [facility] Medication administered onsite Acetaminophen 500 MG Oral Tablet acetaminophen (TYLENO L) tablet 1,000 mg acetaminophen (TYLENOL) tablet 1,000 mg 01/05/2020 02:10:00 AM EST 1000 mg Oral active 1,000 mg, Oral , Every 6 hours (scheduled), First dose on Sun01/05/20 at 0210, Post-op [facility] Medication administered onsite Docusate Sodium 50 MG / sennosides, PENITENTIARY 8.6 MG Oral Tablet senna-docusate (PERICOLACE) 8.6-50 MG 2 tablet senna-docusate (PERICOLACE) 8.6-50 MG 2 tablet 01/05/2020 02:10:00 AM EST 2 {tbl} Oral active 2 tablet, Oral, Nightly, First dose on Sun01/05/20 at 0210, Post-op
hold for loose stools
[facility] Medication administered onsite fentaNYL Citrate (PF) (SUBLIMAZE) injection 25 mcg [id number] 01/05/2020 01:54:09 AM EST 25 ug Intravenous active 25 mcg, Intravenous, Every 3 hours PRN, for severe breakthrough pain (7-10) if oral opioid ineffective, Starting Sun01/05/20 at 0154, For 7 days, Post-op [facility] Medication administered onsite Methocarbamol 500 MG Oral Tablet methocarbamol (ROBAXI N) tablet 500 mg methocarbamol (ROBAXIN) tablet 500 mg 01/05/2020 01:54:09 AM EST 50 0 mg Oral active 500 mg, Oral, 4 times daily PRN, muscle spasms, Starting Sun01/05/20 at 0154, Post-op [facility] Medication administered onsite Oxycodone Hydrochloride 5 MG Oral Tablet oxyCODONE (ROXICODONE) immediate release tablet 2.5 mg oxyCODONE (ROXICODONE) immediate release tablet 2.5 mg 01/05/2020 01:54:09 AM EST 2.5 mg Oral active 2.5 mg, Oral, Every 4 hours PRN, moderate pain (4-6), Starting Sun01/05/20 at 0154, For 7 days, Post-op [facility] Medication administered onsite Oxycodone Hydrochloride 5 MG Oral Tablet oxyCODONE (ROXICODONE) immediate release tablet 5 mg oxyCODONE (ROXICODONE) immediate release tablet 5 mg 01/05/2020 01:54:09 AM EST 5 mg Oral active 5 mg, Oral, Every 4 hours PRN, severe pain (7-10), Starting Sun01/05/20 at 0154, For 7 days, Post-op [facility] Medication administered onsite Mineral Oil 1000 MG/ML Enema mineral oil enema 1 enema mineral oil enema 1 enema 01/05/2020 01:54:09 AM EST 1 {enema} Rectal active 1 enema, Rectal, Daily PRN, constipation, if unrelieved by dulcolax, Starting Sun01/05/20 at 0154, Post-op
hold for loose stools
[facility] Medication administered onsite Ondansetron 4 MG Disintegrating Oral Tab let ondansetron (ZOFRAN-ODT) disintegrating tablet 4 mg ondansetron (ZOFRAN-ODT) disintegrating tablet 4 mg 01/05/2020 01:54:09 AM EST 4 mg Oral active 4 mg, Oral, Every 4 hours PRN, nausea, vomiting, Starting Sun01/05/20 at 0154, Post-op [facility] Medication administered onsite ondansetron (ZOFRAN) injection 4 mg [id number] 01/05/2020 01:54:0 9 AM EST 4 mg Intravenous active 4 mg, In travenous, Every 4 hours PRN, nausea, vomiting, Starting Sun01/05/20 at 0154, Post-op
If unable to take PO
[facility] Medication administered onsite sodium chloride 0.9% (NS) infusion [id number] 01/05/2020 01:20:00 A M EST Intravenous completed at 100 mL/hr, Intravenous, Continuous, Starting Sun01/05/20 at 0120, For 12 hours [facility] Medication administered onsite normal saline flush 0.9 % injection 3 mL [id number] 01/05/2020 01:20:00 AM EST 3 mL Intravenous active 3 mL , Intravenous, Every 8 hours (scheduled), First dose on Sun01/05/20 at 0120
flush per protocol, D/C Main IV fluid if appropriate
[facility] Medication administered onsite Morphine Sulfate (PF) injection 4 mg [id number] 01/04/2020 10:20: 00 PM EST 4 mg Intravenous completed 4 mg, In travenous, Once, 01/04/20 at 2220, For 1 dose [facility] Medication administered onsite 10 mg 11/21/2019 12:00:00 [...] hydrochloride 10 MG Oral Tablet MARJORIE ([facility]) albuterol sulfate HFA 90 mcg/actuation a erosol inhaler INHALE 4 PUFFS EVERY 4 TO 6 HOURS NEEDED FOR WHEEZING [id number] comple zakiya [id number] 200 ACTUAT albuterol 0.09 MG/ACTUAT Metered Dose Inhaler ANACONDA ([facility]) methylprednisolone 4 mg tablets in a dos e pack TAKE BY MOUTH FOLLOWING PACKAGE INSTRUCTIONS [id number] completed me thylprednisolone 4 mg tablets in a dose pack ANACONDA ([facility]) Methocarbamol 750 MG Oral Tablet methoca rbamol 750 mg tablet TAKE 2 TABLETS BY MOUTH TWICE A DAY NEEDED methocarbamol 750 mg tablet TAKE 2 TABLE TS BY MOUTH TWICE A DAY NEEDED completed methocarbamol 750 MG Oral Tablet ANACONDA ([facility]) Ondansetron 8 MG Disintegrating Oral Tab let ondansetron [address] ONE TABLET UNDER THE TONGUE THREE TIMES A DAY ondansetron [address] ONE TABLET UNDER THE TONGUE THREE TIMES A DAY completed ondansetron 8 MG Dis integrating Oral Tablet ANACONDA ([facility]) Haloperidol 2 MG Oral Tablet haloperidol 2 mg tablet TAKE TWO TABLETS BY MOUTH EVERY DAY haloperidol 2 mg tablet TAKE TWO TABLETS BY MOUTH EVERY DAY completed haloperidol 2 MG Oral Tablet ANACONDA ([facility]) Ketorolac Tromethamine 10 MG Oral Tablet ketorolac 10 mg tablet TAKE ONE TABLET BY MOUTH FOUR TIMES A DAY ketorolac 10 mg tablet TAKE ONE TABLET B Y MOUTH FOUR TIMES A DAY completed ketorolac tromethamine 10 MG Oral Tablet ANACONDA ([facility]) vitamin d3 25 mcg (1000 ut) tabs completed vitamin d3 25 mcg (1000 ut) tabs ANACONDA ([facility]) Baclofen 5 MG Oral Tablet baclofen 5 mg tablet baclofen 5 mg tablet completed baclofen 5 MG Oral Tablet ANACONDA ([facility]) Cyclobenzaprine hydrochloride 10 MG Oral Tablet cyclob enzaprine 10 mg tablet cyclobenzaprine 10 mg tablet completed cyclobenzaprine hydrochloride 10 MG Oral Tablet ANACONDA ([facility]) gabapentin 100 MG Oral Capsule gabapenti n 100 mg capsule TAKE ONE CAPSULE BY MOUTH THREE TIMES A DAY gabapentin 100 mg capsule TAKE ONE CAPSU LE BY MOUTH THREE TIMES A DAY completed prisca pentin 100 MG Oral Capsule ANACONDA ([facility]) Oxycodone Hydrochloride 5 MG Oral Tablet oxycodone 5 mg tablet TAKE 1/2 TABLET 2.5MG BY MOUTH EVERY 6 HOURS NEEDED MAXIMUM DAILY DOSE 2 TABLETS oxycodone 5 mg tablet TAKE 1/2 TABLET 2.5MG BY MOUTH EVERY 6 HOURS NEEDED MAXIMUM DAILY DOSE 2 TABLETS complet ed oxycodone hydrochloride 5 MG Oral Tablet MARJORIE ([facility]) Magnesium Hydroxide 80 MG/ML Oral Suspen maxim Milk of Magnesia 400 mg/5 mL oral suspension TAKE 30 MLS BY MOUTH ONCE DAILY NEEDED FOR CONSTIPATION Milk of Magnesia 400 mg/5 mL oral suspension TAKE 30 MLS BY MOUTH ONCE DAILY NEEDED FOR CONSTIPATION completed magnesium hydroxide 80 MG/ML Oral Suspension MARJORIE ([facility]) Methocarbamol 750 MG Oral Tablet methoca rbamol 750 mg tablet TAKE 2 TABLETS BY MOUTH TWICE A DAY NEEDED methocarbamol 750 mg tablet TAKE 2 TABLE TS BY MOUTH TWICE A DAY NEEDED completed methocarbamol 750 MG Oral Tablet ANACONDA ([facility]) tramadol hydrochloride 50 MG Oral Tablet tramadol 50 mg tablet TAKE ONE TABLET BY MOUTH TWICE A DAY MAXIMUM DAILY DOSE 2 TABLETS tramadol 50 mg tablet TAKE ONE TABLET BY MOUTH TWICE A DAY MAXIMUM DAILY DOSE 2 TABLETS completed tramadol hydrochloride 50 MG Ora l Tablet ANACONDA ([facility]) gabapentin 100 MG Oral Capsule gabapenti n 100 mg capsule TAKE ONE CAPSULE BY MOUTH THREE TIMES A DAY gabapentin 100 mg capsule TAKE ONE CAPSU LE BY MOUTH THREE TIMES A DAY completed prisca pentin 100 MG Oral Capsule ANACONDA ([facility]) Azithromycin 250 MG Oral Tablet azithrom ycin 250 mg tablet TAKE TWO TABLETS BY MOUTH AT ONCE ON THE FIRST DAY THEN TAKE ONE DAILY THEREAFTER azithromycin 250 mg tablet TAKE TWO TABLETS BY MOUTH AT ONCE ON THE FIRST DAY THEN TAKE ONE DAILY THEREAFTER completed azithromyci n 250 MG Oral Tablet ANACONDA ([facility]) Magnesium Hydroxide 80 MG/ML Oral Suspen maxim Milk of Magnesia 400 mg/5 mL oral suspension TAKE 30 MLS BY MOUTH ONCE DAILY NEEDED FOR CONSTIPATION Milk of Magnesia 400 mg/5 mL oral suspension TAKE 30 MLS BY MOUTH ONCE DAILY NEEDED FOR CONSTIPATION completed magnesium hydroxide 80 MG/ML Oral Suspension MARJORIE ([facility]) albuterol sulfate HFA 90 mcg/actuation a erosol inhaler INHALE 4 PUFFS EVERY 4 TO 6 HOURS NEEDED FOR WHEEZING [id number] comple zakiya [id number] 200 ACTUAT albuterol 0.09 MG/ACTUAT Metered Dose Inhaler ANACONDA ([facility]) Methocarbamol 500 MG Oral Tablet methoca rbamol 500 mg tablet TAKE ONE TABLET BY MOUTH THREE TIMES A DAY methocarbamol 500 mg tablet TAKE ONE TAB LET BY MOUTH THREE TIMES A DAY completed meth ocarbamol 500 MG Oral Tablet MARJORIE ([facility]) Melatonin 5 MG Oral Tablet melatonin 5 m g tablet Take 1 tablet every day by oral route at bedtime. melatonin 5 mg tablet Take 1 tablet ever y day by oral route at bedtime. 1 completed melatonin 5 M G Oral Tablet MARJORIE ([facility]) Ondansetron 8 MG Disintegrating Oral Tab let ondansetron [address] ONE TABLET UNDER THE TONGUE THREE TIMES A DAY ondansetron [address] ONE TABLET UNDER THE TONGUE THREE TIMES A DAY completed ondansetron 8 MG Dis integrating Oral Tablet MARJORIE ([facility]) Azithromycin 250 MG Oral Tablet azithrom ycin 250 mg tablet TAKE TWO TABLETS BY MOUTH AT ONCE ON THE FIRST DAY THEN TAKE ONE DAILY THEREAFTER azithromycin 250 mg tablet TAKE TWO TABLETS BY MOUTH AT ONCE ON THE FIRST DAY THEN TAKE ONE DAILY THEREAFTER completed azithromyci n 250 MG Oral Tablet MARJORIE ([facility]) Ondansetron 8 MG Disintegrating Oral Tab let ondansetron [address] ONE TABLET UNDER THE TONGUE THREE TIMES A DAY ondansetron [address] ONE TABLET UNDER THE TONGUE THREE TIMES A DAY completed ondansetron 8 MG Dis integrating Oral Tablet MARJORIE ([facility]) 24 HR venlafaxine 37.5 MG Extended Relea se Oral Capsule venlafaxine ER 37.5 mg capsule,extended release 24 hr TAKE ONE CAPSULE BY MOUTH EVERY MORNING venlafaxine ER 37.5 mg capsule,extended release 24 hr TAKE ONE CAPSULE BY MOUTH EVERY MORNING completed 24 HR venlafaxine 37.5 MG Extended Release Oral Capsule MARJORIE ([facility]) Ondansetron 8 MG Disintegrating Oral Tab let ondansetron [address] ONE TABLET UNDER THE TONGUE THREE TIMES A DAY ondansetron [address] ONE TABLET UNDER THE TONGUE THREE TIMES A DAY completed ondansetron 8 MG Dis integrating Oral Tablet MARJORIE ([facility]) Prednisone 50 MG Oral Tablet prednisone 50 mg tablet TAKE 12 TABLETS BY MOUTH TWO TIMES A DAY FOR 2 DAYS prednisone 50 mg tablet TAKE 12 TABLETS BY MOUTH TWO TIMES A DAY FOR 2 DAYS completed prednisone 50 MG Oral Tablet MARJORIE ([facility]) Ketorolac Tromethamine 10 MG Oral Tablet ketorolac 10 mg tablet TAKE ONE TABLET BY MOUTH FOUR TIMES A DAY ketorolac 10 mg tablet TAKE ONE TABLET B Y MOUTH FOUR TIMES A DAY completed ketorolac tromethamine 10 MG Oral Tablet ANACONDA ([facility]) Clonazepam 0.5 MG Oral Tablet clonazepam 0.5 mg tablet TAKE ONE TABLET BY MOUTH EVERY DAY MAXIMUM DAILY DOSE 1 clonazepam 0.5 mg tablet TAKE ONE TABLET BY MOUTH EVERY DAY MAXIMUM DAILY DOSE 1 completed clonazepam 0.5 MG Oral Tablet ANACONDA ([facility]) Oxycodone Hydrochloride 10 MG Oral Table t oxycodone 10 mg tablet TAKE ONE TABLET BY MOUTH EVERY 12 HOURS NEEDED FOR POST OP PAIN MAXIMUM DAILY DOSE 2 oxycodone 10 mg tablet TAKE ONE TABLET BY MOUTH EVERY 12 HOURS NEEDED FOR POST OP PAIN MAXIMUM DAILY DOSE 2 co mpleted oxycodone hydrochloride 10 MG Oral Tablet ANACONDA ([facility]) Baclofen 10 MG Oral Tablet baclofen 10 m g tablet Take 1 tablet 3 times a day by oral route. baclofen 10 mg tablet Take 1 tablet 3 times a day by oral ro nikolai. 1 completed baclofen 10 MG Oral Tablet ANACONDA ([facility]) Baclofen 5 MG Oral Tablet baclofen 5 mg tablet baclofen 5 mg tablet completed baclofen 5 MG Oral Tablet ANACONDA ([facility]) 12 HR Oxycodone Hydrochloride 30 MG Exte nded Release Oral Tablet [Oxycontin] OxyContin 30 mg tablet,crush resistant,extended release TAKE ONE TABLET BY MOUTH EVERY DAY MAXIMUM DAILY DOSE 1 TABLET OxyContin 30 mg tablet,crush resistant,extended release TAKE ONE TABLET BY MOUTH EVERY DAY MAXIMUM DAILY DOSE 1 TABLET completed Ab use-Deterrent 12 HR oxycodone hydrochloride 30 MG Extended Release Oral Tablet [Oxycontin] ANACONDA ([facility]) Naproxen 500 MG Oral Tablet naproxen 500 mg tablet TAKE ONE TABLET BY MOUTH TWICE A DAY WITH FOOD naproxen 500 mg tablet TAKE ONE TABLET B Y MOUTH TWICE A DAY WITH FOOD completed naproxen 500 MG Oral Tablet ANACONDA ([facility]) Nortriptyline 25 MG Oral Capsule nortrip tyline 25 mg capsule TAKE ONE CAPSULE BY MOUTH EVERY MORNING nortriptyline 25 mg capsule TAKE ONE CAP CHRISTINA BY MOUTH EVERY MORNING completed nortriptyline 25 MG Oral Capsule MARJORIE ([facility]) methylprednisolone 4 mg tablets in a dos e pack TAKE BY MOUTH FOLLOWING PACKAGE INSTRUCTIONS [id number] completed me thylprednisolone 4 mg tablets in a dose pack MARJORIE ([facility]) tramadol hydrochloride 50 MG Oral Tablet tramadol 50 mg tablet TAKE ONE TABLET BY MOUTH TWICE A DAY MAXIMUM DAILY DOSE 2 TABLETS tramadol 50 mg tablet TAKE ONE TABLET BY MOUTH TWICE A DAY MAXIMUM DAILY DOSE 2 TABLETS completed tramadol hydrochloride 50 MG Ora l Tablet MARJORIE ([facility]) oxycodone completed oxycodone MARJORIE ([facility]) Magnesium Hydroxide 80 MG/ML Oral Suspen maxim Milk of Magnesia 400 mg/5 mL oral suspension TAKE 30 MLS BY MOUTH ONCE DAILY NEEDED FOR CONSTIPATION Milk of Magnesia 400 mg/5 mL oral suspension TAKE 30 MLS BY MOUTH ONCE DAILY NEEDED FOR CONSTIPATION completed magnesium hydroxide 80 MG/ML Oral Suspension MARJORIE ([facility]) Baclofen 5 MG Oral Tablet baclofen 5 mg tablet baclofen 5 mg tablet completed baclofen 5 MG Oral Tablet MARJORIE ([facility]) Prednisone 50 MG Oral Tablet prednisone 50 mg tablet TAKE ONE TABLET BY MOUTH EVERY DAY WITH A MEAL prednisone 50 mg tablet TAKE ONE TABLET BY MOUTH EVERY DAY WITH A MEAL completed prednison e 50 MG Oral Tablet ANACONDA ([facility]) Docusate Sodium 50 MG / sennosides, PENITENTIARY 8.6 MG Oral Tablet Stimulant Laxative Plus 8.6 mg-50 mg tablet TAKE 2 TABLETS BY MOUTH ONCE OR TWICE DAILY TO PREVENT CONSTIPATION Stimulant Laxative Plus 8.6 mg-50 mg tab let TAKE 2 TABLETS BY MOUTH ONCE OR TWICE DAILY TO PREVENT CONSTIPATION completed docusate sodium 50 MG / sennosides, PENITENTIARY 8.6 MG Oral Tablet MARJORIE ([facility]) methylprednisolone 4 mg tablets in a dos e pack TAKE BY MOUTH FOLLOWING PACKAGE INSTRUCTIONS [id number] completed me thylprednisolone 4 mg tablets in a dose pack MARJORIE ([facility]) 12 HR Oxycodone Hydrochloride 30 MG Exte nded Release Oral Tablet [Oxycontin] OxyContin 30 mg tablet,crush resistant,extended release TAKE ONE TABLET BY MOUTH EVERY DAY MAXIMUM DAILY DOSE 1 TABLET OxyContin 30 mg tablet,crush resistant,extended release TAKE ONE TABLET BY MOUTH EVERY DAY MAXIMUM DAILY DOSE 1 TABLET completed Ab use-Deterrent 12 HR oxycodone hydrochloride 30 MG Extended Release Oral Tablet [Oxycontin] MARJORIE ([facility]) Ketorolac Tromethamine 10 MG Oral Tablet ketorolac 10 mg tablet TAKE ONE TABLET BY MOUTH FOUR TIMES A DAY ketorolac 10 mg tablet TAKE ONE TABLET B Y MOUTH FOUR TIMES A DAY completed ketorolac tromethamine 10 MG Oral Tablet MARJORIE ([facility]) Cyclobenzaprine hydrochloride 10 MG Oral Tablet cyclob enzaprine 10 mg tablet cyclobenzaprine 10 mg tablet completed cyclobenzaprine hydrochloride 10 MG Oral Tablet ANACONDA ([facility]) 24 HR venlafaxine 37.5 MG Extended Relea se Oral Capsule venlafaxine ER 37.5 mg capsule,extended release 24 hr venlafaxine ER 37.5 mg capsule,extended release 24 hr completed 24 HR v enlafaxine 37.5 MG Extended Release Oral Capsule ANACONDA ([facility]) oxycodone completed oxycodone ANACONDA ([facility]) Cyclobenzaprine hydrochloride 10 MG Oral Tablet cyclob enzaprine 10 mg tablet cyclobenzaprine 10 mg tablet completed cyclobenzaprine hydrochloride 10 MG Oral Tablet MARJORIE ([facility]) Oxycodone Hydrochloride 5 MG Oral Tablet oxycodone 5 mg tablet TAKE 1/2 TABLET 2.5MG BY MOUTH EVERY 6 HOURS NEEDED MAXIMUM DAILY DOSE 2 TABLETS oxycodone 5 mg tablet TAKE 1/2 TABLET 2.5MG BY MOUTH EVERY 6 HOURS NEEDED MAXIMUM DAILY DOSE 2 TABLETS comple zakiya oxycodone hydrochloride 5 MG Oral Tablet MARJORIE ([facility]) Cyclobenzaprine hydrochloride 10 MG Oral Tablet cyclob enzaprine 10 mg tablet cyclobenzaprine 10 mg tablet completed cyclobenzaprine hydrochloride 10 MG Oral Tablet ANACONDA ([facility]) Oxycodone Hydrochloride 10 MG Oral Table t oxycodone 10 mg tablet TAKE ONE TABLET BY MOUTH EVERY 12 HOURS NEEDED FOR POST OP PAIN MAXIMUM DAILY DOSE 2 oxycodone 10 mg tablet TAKE ONE TABLET BY MOUTH EVERY 12 HOURS NEEDED FOR POST OP PAIN MAXIMUM DAILY DOSE 2 co mpleted oxycodone hydrochloride 10 MG Oral Tablet MARJORIE ([facility]) Methocarbamol 500 MG Oral Tablet methoca rbamol 500 mg tablet TAKE ONE TABLET BY MOUTH THREE TIMES A DAY methocarbamol 500 mg tablet TAKE ONE TAB LET BY MOUTH THREE TIMES A DAY completed meth ocarbamol 500 MG Oral Tablet MARJORIE ([facility]) Naproxen 500 MG Oral Tablet naproxen 500 mg tablet TAKE ONE TABLET BY MOUTH TWICE A DAY WITH FOOD naproxen 500 mg tablet TAKE ONE TABLET B Y MOUTH TWICE A DAY WITH FOOD completed naproxen 500 MG Oral Tablet MARJORIE ([facility]) oxycodone completed oxycodone MARJORIE ([facility]) Oxycodone Hydrochloride 5 MG Oral Tablet oxycodone 5 mg tablet TAKE 1/2 TABLET 2.5MG BY MOUTH EVERY 6 HOURS NEEDED MAXIMUM DAILY DOSE 2 TABLETS oxycodone 5 mg tablet TAKE 1/2 TABLET 2.5MG BY MOUTH EVERY 6 HOURS NEEDED MAXIMUM DAILY DOSE 2 TABLETS comple zakiya oxycodone hydrochloride 5 MG Oral Tablet MARJORIE ([facility]) Cyclobenzaprine hydrochloride 10 MG Oral Tablet cyclob enzaprine 10 mg tablet cyclobenzaprine 10 mg tablet completed cyclobenzaprine hydrochloride 10 MG Oral Tablet MARJORIE ([facility]) 24 HR Nicotine 0.875 MG/HR Transdermal P atch nicotine 21 mg/24 hr daily transdermal patch nicotine 21 mg/24 hr daily transdermal patch completed 24 HR nicotine 0.875 MG/HR Trans dermal System MARJORIE ([facility]) Nortriptyline 10 MG Oral Capsule nortrip tyline 10 mg capsule Take 1 capsule every day by oral route at bedtime. nortriptyline 10 mg capsule Take 1 capsu le every day by oral route at bedtime. 1 capsule(s) completed nortriptyline 10 MG Oral Capsule MARJORIE ([facility]) Magnesium Hydroxide 80 MG/ML Oral Suspen maxim Milk of Magnesia 400 mg/5 mL oral suspension TAKE 30 MLS BY MOUTH ONCE DAILY NEEDED FOR CONSTIPATION Milk of Magnesia 400 mg/5 mL oral suspension TAKE 30 MLS BY MOUTH ONCE DAILY NEEDED FOR CONSTIPATION completed magnesium hydroxide 80 MG/ML Oral Suspension MARJORIE ([facility]) 12 HR Oxycodone Hydrochloride 30 MG Exte nded Release Oral Tablet [Oxycontin] OxyContin 30 mg tablet,crush resistant,extended release TAKE ONE TABLET BY MOUTH EVERY DAY MAXIMUM DAILY DOSE 1 TABLET OxyContin 30 mg tablet,crush resistant,extended release TAKE ONE TABLET BY MOUTH EVERY DAY MAXIMUM DAILY DOSE 1 TABLET completed Ab use-Deterrent 12 HR oxycodone hydrochloride 30 MG Extended Release Oral Tablet [Oxycontin] ANACONDA ([facility]) Amlodipine 10 MG Oral Tablet amlodipine 10 mg tablet TAKE ONE TABLET BY MOUTH EVERY DAY amlodipine 10 mg tablet TAKE ONE TABLET BY MOUTH EVERY DAY completed amlodipine 10 MG Oral Tablet ANACONDA ([facility]) albuterol sulfate HFA 90 mcg/actuation a erosol inhaler INHALE 4 PUFFS EVERY 4 TO 6 HOURS NEEDED FOR WHEEZING [id number] compl eted [id number] 200 ACTUAT albuterol 0.09 MG/ACTUAT Metered Dose Inhaler ANACONDA ([facility]) gabapentin 100 MG Oral Capsule gabapenti n 100 mg capsule TAKE ONE CAPSULE BY MOUTH THREE TIMES A DAY gabapentin 100 mg capsule TAKE ONE CAPSU LE BY MOUTH THREE TIMES A DAY completed prisca pentin 100 MG Oral Capsule ANACONDA ([facility]) Methocarbamol 500 MG Oral Tablet methoca rbamol 500 mg tablet TAKE ONE TABLET BY MOUTH THREE TIMES A DAY methocarbamol 500 mg tablet TAKE ONE TAB LET BY MOUTH THREE TIMES A DAY completed meth ocarbamol 500 MG Oral Tablet ANACONDA ([facility]) tramadol hydrochloride 50 MG Oral Tablet tramadol 50 mg tablet TAKE ONE TABLET BY MOUTH TWICE A DAY MAXIMUM DAILY DOSE 2 TABLETS tramadol 50 mg tablet TAKE ONE TABLET BY MOUTH TWICE A DAY MAXIMUM DAILY DOSE 2 TABLETS completed tramadol hydrochloride 50 MG Ora l Tablet ANACONDA ([facility]) Ketorolac Tromethamine 10 MG Oral Tablet ketorolac 10 mg tablet TAKE ONE TABLET BY MOUTH FOUR TIMES A DAY ketorolac 10 mg tablet TAKE ONE TABLET B Y MOUTH FOUR TIMES A DAY completed ketorolac tromethamine 10 MG Oral Tablet [facility]) 24 HR venlafaxine 37.5 MG Extended Relea se Oral Capsule venlafaxine ER 37.5 mg capsule,extended release 24 hr TAKE ONE CAPSULE BY MOUTH EVERY MORNING venlafaxine ER 37.5 mg capsule,extended release 24 hr TAKE ONE CAPSULE BY MOUTH EVERY MORNING completed 24 HR venlafaxine 37.5 MG Extended Release Oral Capsule ANACONDA ([facility]) tramadol hydrochloride 50 MG Oral Tablet tramadol 50 mg tablet TAKE ONE TABLET BY MOUTH TWICE A DAY MAXIMUM DAILY DOSE 2 TABLETS tramadol 50 mg tablet TAKE ONE TABLET BY MOUTH TWICE A DAY MAXIMUM DAILY DOSE 2 TABLETS completed tramadol hydrochloride 50 MG Ora l Tablet ANACONDA ([facility]) Oxycodone Hydrochloride 5 MG Oral Tablet oxycodone 5 mg tablet TAKE 1/2 TABLET 2.5MG BY MOUTH EVERY 6 HOURS NEEDED MAXIMUM DAILY DOSE 2 TABLETS oxycodone 5 mg tablet TAKE 1/2 TABLET 2.5MG BY MOUTH EVERY 6 HOURS NEEDED MAXIMUM DAILY DOSE 2 TABLETS comple zakiya oxycodone hydrochloride 5 MG Oral Tablet ANACONDA ([facility]) 12 HR Oxycodone Hydrochloride 60 MG Exte [...] 60 MG Extended Release Oral Tablet [Oxycontin] ANACONDA ([facility]) Oxycodone Hydrochloride 5 MG Oral Tablet oxycodone 5 mg tablet TAKE 1/2 TABLET 2.5MG BY MOUTH EVERY 6 HOURS NEEDED MAXIMUM DAILY DOSE 2 TABLETS oxycodone 5 mg tablet TAKE 1/2 TABLET 2.5MG BY MOUTH EVERY 6 HOURS NEEDED MAXIMUM DAILY DOSE 2 TABLETS comple zakiya oxycodone hydrochloride 5 MG Oral Tablet ANACONDA ([facility]) Ondansetron 8 MG Disintegrating Oral Tab let ondansetron [address] ONE TABLET UNDER THE TONGUE THREE TIMES A DAY ondansetron [address] ONE TABLET UNDER THE TONGUE THREE TIMES A DAY completed ondansetron 8 MG Dis integrating Oral Tablet ANACONDA ([facility]) Prednisone 50 MG Oral Tablet prednisone 50 mg tablet TAKE ONE TABLET BY MOUTH EVERY DAY WITH A MEAL prednisone 50 mg tablet TAKE ONE TABLET BY MOUTH EVERY DAY WITH A MEAL completed prednison e 50 MG Oral Tablet ANACONDA ([facility]) 12 HR Oxycodone Hydrochloride 60 MG Exte [...] 60 MG Extended Release Oral Tablet [Oxycontin] ANACONDA ([facility]) 12 HR Oxycodone Hydrochloride 30 MG Exte nded Release Oral Tablet [Oxycontin] OxyContin 30 mg tablet,crush resistant,extended release TAKE ONE TABLET BY MOUTH EVERY DAY MAXIMUM DAILY DOSE 1 TABLET OxyContin 30 mg tablet,crush resistant,extended release TAKE ONE TABLET BY MOUTH EVERY DAY MAXIMUM DAILY DOSE 1 TABLET completed Ab use-Deterrent 12 HR oxycodone hydrochloride 30 MG Extended Release Oral Tablet [Oxycontin] ANACONDA ([facility]) Methocarbamol 500 MG Oral Tablet methoca rbamol 500 mg tablet TAKE ONE TABLET BY MOUTH THREE TIMES A DAY methocarbamol 500 mg tablet TAKE ONE TAB LET BY MOUTH THREE TIMES A DAY completed meth ocarbamol 500 MG Oral Tablet ANACONDA ([facility]) Ketorolac Tromethamine 10 MG Oral Tablet ketorolac 10 mg tablet TAKE ONE TABLET BY MOUTH FOUR TIMES A DAY ketorolac 10 mg tablet TAKE ONE TABLET B Y MOUTH FOUR TIMES A DAY completed ketorolac tromethamine 10 MG Oral Tablet ANACONDA ([facility]) Methocarbamol 750 MG Oral Tablet methoca rbamol 750 mg tablet TAKE 2 TABLETS BY MOUTH TWICE A DAY NEEDED methocarbamol 750 mg tablet TAKE 2 TABLE TS BY MOUTH TWICE A DAY NEEDED completed methocarbamol 750 MG Oral Tablet ANACONDA ([facility]) Naproxen 500 MG Oral Tablet naproxen 500 mg tablet TAKE ONE TABLET BY MOUTH TWICE A DAY WITH FOOD naproxen 500 mg tablet TAKE ONE TABLET B Y MOUTH TWICE A DAY WITH FOOD completed naproxen 500 MG Oral Tablet ANACONDA ([facility]) oxycodone completed oxycodone ANACONDA ([facility]) Oxycodone Hydrochloride 10 MG Oral Table t oxycodone 10 mg tablet TAKE ONE TABLET BY MOUTH EVERY 12 HOURS NEEDED FOR POST OP PAIN MAXIMUM DAILY DOSE 2 oxycodone 10 mg tablet TAKE ONE TABLET BY MOUTH EVERY 12 HOURS NEEDED FOR POST OP PAIN MAXIMUM DAILY DOSE 2 co mpleted oxycodone hydrochloride 10 MG Oral Tablet MARJORIE ([facility]) oxycodone completed oxycodone MARJORIE ([facility]) Naproxen 500 MG Oral Tablet naproxen 500 mg tablet TAKE ONE TABLET BY MOUTH TWICE A DAY WITH FOOD naproxen 500 mg tablet TAKE ONE TABLET B Y MOUTH TWICE A DAY WITH FOOD completed naproxen 500 MG Oral Tablet MARJORIE ([facility]) Naproxen 500 MG Oral Tablet naproxen 500 mg tablet TAKE ONE TABLET BY MOUTH TWICE A DAY WITH FOOD naproxen 500 mg tablet TAKE ONE TABLET B Y MOUTH TWICE A DAY WITH FOOD completed naproxen 500 MG Oral Tablet ANACONDA ([facility]) Azithromycin 250 MG Oral Tablet azithrom ycin 250 mg tablet TAKE TWO TABLETS BY MOUTH AT ONCE ON THE FIRST DAY THEN TAKE ONE DAILY THEREAFTER azithromycin 250 mg tablet TAKE TWO TABLETS BY MOUTH AT ONCE ON THE FIRST DAY THEN TAKE ONE DAILY THEREAFTER completed azithromyc in 250 MG Oral Tablet ANACONDA ([facility]) Methocarbamol 500 MG Oral Tablet methoca rbamol 500 mg tablet TAKE ONE TABLET BY MOUTH THREE TIMES A DAY methocarbamol 500 mg tablet TAKE ONE TAB LET BY MOUTH THREE TIMES A DAY completed meth ocarbamol 500 MG Oral Tablet ANACONDA ([facility]) 12 HR Oxycodone Hydrochloride 60 MG Exte [...] 60 MG Extended Release Oral Tablet [Oxycontin] ANACONDA ([facility]) oxycodone completed oxycodone ANACONDA ([facility]) 12 HR Oxycodone Hydrochloride 30 MG Exte nded Release Oral Tablet [Oxycontin] OxyContin 30 mg tablet,crush resistant,extended release TAKE ONE TABLET BY MOUTH EVERY DAY MAXIMUM DAILY DOSE 1 TABLET OxyContin 30 mg tablet,crush resistant,extended release TAKE ONE TABLET BY MOUTH EVERY DAY MAXIMUM DAILY DOSE 1 TABLET completed Ab use-Deterrent 12 HR oxycodone hydrochloride 30 MG Extended Release Oral Tablet [Oxycontin] ANACONDA ([facility]) albuterol sulfate HFA 90 mcg/actuation a erosol inhaler INHALE 4 PUFFS EVERY 4 TO 6 HOURS NEEDED FOR WHEEZING [id number] compl eted [id number] 200 ACTUAT albuterol 0.09 MG/ACTUAT Metered Dose Inhaler ANACONDA ([facility]) Magnesium Hydroxide 80 MG/ML Oral Suspen maxim Milk of Magnesia 400 mg/5 mL oral suspension TAKE 30 MLS BY MOUTH ONCE DAILY NEEDED FOR CONSTIPATION Milk of Magnesia 400 mg/5 mL oral suspension TAKE 30 MLS BY MOUTH ONCE DAILY NEEDED FOR CONSTIPATION completed magnesium hydroxide 80 MG/ML Oral Suspension [facility]) pantoprazole 40 MG Delayed Release Oral Tablet pantoprazole 40 mg tablet,delayed release Take 1 tablet every day by oral route. pantoprazole 40 mg tablet,delayed release Take 1 tablet every day by oral route. 1 completed pantoprazole 40 MG Delayed Relea se Oral Tablet ANACONDA ([facility]) albuterol sulfate HFA 90 mcg/actuation a erosol inhaler INHALE 4 PUFFS EVERY 4 TO 6 HOURS NEEDED FOR WHEEZING [id number] compl eted [id number] 200 ACTUAT albuterol 0.09 MG/ACTUAT Metered Dose Inhaler ANACONDA ([facility]) Azithromycin 250 MG Oral Tablet azithrom ycin 250 mg tablet TAKE TWO TABLETS BY MOUTH AT ONCE ON THE FIRST DAY THEN TAKE ONE DAILY THEREAFTER azithromycin 250 mg tablet TAKE TWO TABLETS BY MOUTH AT ONCE ON THE FIRST DAY THEN TAKE ONE DAILY THEREAFTER completed azithromyc in 250 MG Oral Tablet ANACONDA ([facility]) Methocarbamol 500 MG Oral Tablet methoca rbamol 500 mg tablet TAKE ONE TABLET BY MOUTH THREE TIMES A DAY methocarbamol 500 mg tablet TAKE ONE TAB LET BY MOUTH THREE TIMES A DAY completed meth ocarbamol 500 MG Oral Tablet [facility]) gabapentin 100 MG Oral Capsule gabapenti n 100 mg capsule TAKE ONE CAPSULE BY MOUTH THREE TIMES A DAY gabapentin 100 mg capsule TAKE ONE CAPSU LE BY MOUTH THREE TIMES A DAY completed prisca pentin 100 MG Oral Capsule [facility]) gabapentin 100 MG Oral Capsule gabapenti n 100 mg capsule TAKE ONE CAPSULE BY MOUTH THREE TIMES A DAY gabapentin 100 mg capsule TAKE ONE CAPSU LE BY MOUTH THREE TIMES A DAY completed prisca pentin 100 MG Oral Capsule ANACONDA ([facility]) Azithromycin 250 MG Oral Tablet azithrom ycin 250 mg tablet TAKE TWO TABLETS BY MOUTH AT ONCE ON THE FIRST DAY THEN TAKE ONE DAILY THEREAFTER azithromycin 250 mg tablet TAKE TWO TABLETS BY MOUTH AT ONCE ON THE FIRST DAY THEN TAKE ONE DAILY THEREAFTER completed azithromyc in 250 MG Oral Tablet ANACONDA ([facility]) Acetaminophen 500 MG Oral Tablet acetaminophen 500 mg tablet acetaminophen 500 mg tablet completed acetaminophe n 500 MG Oral Tablet ANACONDA ([facility]) Magnesium Hydroxide 80 MG/ML Oral Suspen maxim Milk of Magnesia 400 mg/5 mL oral suspension TAKE 30 MLS BY MOUTH ONCE DAILY NEEDED FOR CONSTIPATION Milk of Magnesia 400 mg/5 mL oral suspension TAKE 30 MLS BY MOUTH ONCE DAILY NEEDED FOR CONSTIPATION completed magnesium hydroxide 80 MG/ML Oral Suspension ANACONDA ([facility]) methylprednisolone 4 mg tablets in a dos e pack TAKE BY MOUTH FOLLOWING PACKAGE INSTRUCTIONS [id number] completed me thylprednisolone 4 mg tablets in a dose pack ANACONDA ([facility]) Cyclobenzaprine hydrochloride 10 MG Oral Tablet cyclob enzaprine 10 mg tablet cyclobenzaprine 10 mg tablet completed cyclobenzaprine hydrochloride 10 MG Oral Tablet ANACONDA ([facility]) 12 HR Oxycodone Hydrochloride 60 MG Exte [...] 60 MG Extended Release Oral Tablet [Oxycontin] ANACONDA ([facility]) Docusate Sodium 100 MG Oral Capsule [DOK] DOK 100 mg capsule DOK 100 mg capsule completed docusate sodiu m 100 MG Oral Capsule [DOK] ANACONDA ([facility]) Oxycodone Hydrochloride 10 MG Oral Table t oxycodone 10 mg tablet TAKE ONE TABLET BY MOUTH EVERY 12 HOURS NEEDED FOR POST OP PAIN MAXIMUM DAILY DOSE 2 oxycodone 10 mg tablet TAKE ONE TABLET BY MOUTH EVERY 12 HOURS NEEDED FOR POST OP PAIN MAXIMUM DAILY DOSE 2 co mpleted oxycodone hydrochloride 10 MG Oral Tablet MARJORIE ([facility]) Baclofen 5 MG Oral Tablet baclofen (LIORESAL) 5 MG tab let baclofen (LIORESAL) 5 MG tablet 5 mg Oral aborted Take 5 mg by m outh Three times daily [facility] Ketorolac Tromethamine 10 MG Oral Tablet ketorolac 10 mg tablet TAKE ONE TABLET BY MOUTH FOUR TIMES A DAY ketorolac 10 mg tablet TAKE ONE TABLET B Y MOUTH FOUR TIMES A DAY completed ketorolac tromethamine 10 MG Oral Tablet MARJORIE ([facility]) Ondansetron 4 MG Oral Tablet ondansetron HCl 4 mg tabl et ondansetron HCl 4 mg tablet completed ondansetron 4 M G Oral Tablet ANACONDA ([facility]) Ondansetron 8 MG Disintegrating Oral Tab let ondansetron [address] ONE TABLET UNDER THE TONGUE THREE TIMES A DAY ondansetron [address] ONE TABLET UNDER THE TONGUE THREE TIMES A DAY completed ondansetron 8 MG Dis integrating Oral Tablet ANACONDA ([facility]) Methocarbamol 750 MG Oral Tablet methoca rbamol 750 mg tablet TAKE 2 TABLETS BY MOUTH TWICE A DAY NEEDED methocarbamol 750 mg tablet TAKE 2 TABLE TS BY MOUTH TWICE A DAY NEEDED completed methocarbamol 750 MG Oral Tablet ANACONDA ([facility]) 12 HR Oxycodone Hydrochloride 60 MG Exte [...] MG Extended Release Oral Tablet [Oxycontin] MARJORIE ([facility]) Azithromycin 250 MG Oral Tablet azithrom ycin 250 mg tablet TAKE TWO TABLETS BY MOUTH AT ONCE ON THE FIRST DAY THEN TAKE ONE DAILY THEREAFTER azithromycin 250 mg tablet TAKE TWO TABLETS BY MOUTH AT ONCE ON THE FIRST DAY THEN TAKE ONE DAILY THEREAFTER completed azithromyc in 250 MG Oral Tablet MARJORIE ([facility]) 12 HR Oxycodone Hydrochloride 30 MG Exte nded Release Oral Tablet [Oxycontin] OxyContin 30 mg tablet,crush resistant,extended release TAKE ONE TABLET BY MOUTH EVERY DAY MAXIMUM DAILY DOSE 1 TABLET OxyContin 30 mg tablet,crush resistant,extended release TAKE ONE TABLET BY MOUTH EVERY DAY MAXIMUM DAILY DOSE 1 TABLET completed Ab use-Deterrent 12 HR oxycodone hydrochloride 30 MG Extended Release Oral Tablet [Oxycontin] ANACONDA ([facility]) Nortriptyline 50 MG Oral Capsule nortrip tyline 50 mg capsule TAKE ONE CAPSULE BY MOUTH EVERY MORNING nortriptyline 50 mg capsule TAKE ONE CAP CHRISTINA BY MOUTH EVERY MORNING completed nortriptyline 50 MG Oral Capsule ANACONDA ([facility]) 12 HR Oxycodone Hydrochloride 60 MG Exte [...] 60 MG Extended Release Oral Tablet [Oxycontin] ANACONDA ([facility]) Cholecalciferol 1000 UNT Oral Capsule ch olecalciferol (vitamin D3) 25 mcg (1,000 unit) capsule Take 1 capsule every day by oral route. cholecalciferol (vitamin D3) 25 mcg (1,000 unit) capsule Take 1 capsule every day by oral route. 1 capsule(s) completed cholecalciferol 0.0 25 MG Oral Capsule ANACONDA ([facility]) tramadol hydrochloride 50 MG Oral Tablet tramadol 50 mg tablet TAKE ONE TABLET BY MOUTH TWICE A DAY MAXIMUM DAILY DOSE 2 TABLETS tramadol 50 mg tablet TAKE ONE TABLET BY MOUTH TWICE A DAY MAXIMUM DAILY DOSE 2 TABLETS completed tramadol hydrochloride 50 MG Ora l Tablet ANACONDA ([facility]) gabapentin 100 MG Oral Capsule gabapenti n 100 mg capsule TAKE ONE CAPSULE BY MOUTH THREE TIMES A DAY gabapentin 100 mg capsule TAKE ONE CAPSU LE BY MOUTH THREE TIMES A DAY completed prisca pentin 100 MG Oral Capsule ANACONDA ([facility]) methylprednisolone 4 mg tablets in a dos e pack TAKE BY MOUTH FOLLOWING PACKAGE INSTRUCTIONS [id number] completed me thylprednisolone 4 mg tablets in a dose pack [facility]) Baclofen 5 MG Oral Tablet baclofen 5 mg tablet baclofen 5 mg tablet completed baclofen 5 MG Oral Tablet MARJORIE ([facility]) Naproxen 500 MG Oral Tablet naproxen 500 mg tablet TAKE ONE TABLET BY MOUTH TWICE A DAY WITH FOOD naproxen 500 mg tablet TAKE ONE TABLET B Y MOUTH TWICE A DAY WITH FOOD completed naproxen 500 MG Oral Tablet MARJORIE ([facility]) Oxycodone Hydrochloride 10 MG Oral Table t oxycodone 10 mg tablet TAKE ONE TABLET BY MOUTH EVERY 12 HOURS NEEDED FOR POST OP PAIN MAXIMUM DAILY DOSE 2 oxycodone 10 mg tablet TAKE ONE TABLET BY MOUTH EVERY 12 HOURS NEEDED FOR POST OP PAIN MAXIMUM DAILY DOSE 2 co mpleted oxycodone hydrochloride 10 MG Oral Tablet MARJORIE ([facility]) Insurance Providers Payer name Policy type / Coverage type Policy ID Covered democrat ID Covered democrat's relationship to rowell Policy Rowell Plan Information MEDICAID M [id number] Self [id number] Medicaid S [id number] S [id number] [facility] COMMUNITY PLAN [facility] [place] [place] [id number] SP [id number] Managed Care - Community Plan [facility] P [id number] S [id number] [facility] Comm Plan Medicaid F [id number] SELF [id number] [facility] Comm Plan Medicaid F [id number] SELF [id number] Managed Care - Community Plan [facility] P [id number] S [id number] [facility] Comm Plan Medicaid F [id number] SELF [id number] Medicaid S [id number] S [id number] Managed Care - [facility] Community Plan P [id number] S [id number] Managed Care - Community Plan [facility] P [id number] S [id number] [facility] MEDICAID [id number] [id number] [facility] MEDICAID [id number] Sigrid [id number] MEDICAID [id number] Sigrid [id number] INSURANCE COVID-19 [id number] INSURANCE COVID-19 COVID Sigrid C OVID [facility] I [id number] Self [id number] [facility] COMMUNITY PLAN [facility] [place] [place] [id number] SP [id number] MEDICAID -PHYSICIAN [id number] MEDICAID M [id number] S [id number] [facility] [id number] SP [id number] Medicaid P [id number] [facility] COMMUNITY PLAN MCDO [id number] SP [id number] [facility] [id number] SP [id number] UN COMMUNITY PLAN XIX [id number] 18 [id number] [facility] COMMUNITY PLAN [id number] SP [id number] [facility](MCAID) O [id number] S [id number] [facility] [place]ITY PL[place] [id number] 18 [id number] [facility] COMMUNTY PLAN [id number] ANSI-Medicaid [id number] MEDICAID [id number] SP [id number] ANSI-Medicaid [id number] Managed Care - Community Plan [facility] P [id number] S [id number] MEDICAID [id number] SP [id number] MEDICAID -O/P EMERGENCY ROOM [id number] UMR -O/P UNAVAILABLE UNAVAILABLE [facility] Health Maintenance Organization (HMO) [id number] Self [id number] [facility] Health Maintenance Organization (HMO) [id number] Self [id number] Problems, Conditions, and Diagnoses Code Display Name Description Problem Type Effective Dates Data Source(s) M48.00 Spinal stenosis, site unspecified Spinal stenosi s, site unspecified Diagnosis 04/28/2020 07:12:15 AM EDT [facility] Q48391 CONTACT WITH AND SUSPECTED EXPOSURE TO C OVID-19 CONTACT WITH AND SUSPECTED EXPOSURE TO COVID-19 Diagnosis 04/19/2020 08:39:00 PM EDT [facility] [id number] Dysarthria following unspecified cerebro vascular disease Dysarthria following unspecified cerebrovascular disease Diagnosis 04/20/19 08:39:00 PM EDT [facility] R456 Violent behavior Violent behavior Diagnosis 04/19/2020 08 :39:00 PM EDT [facility] [id number] Cannabis abuse with cannabis-induced anx iety disorder Cannabis abuse with cannabis-induced anxiety disorder Diagnosis 04/19/2020 08:39:00 PM ED [facility] R000 Tachycardia, unspecified Tachycardia, unspecified Diag nosis 04/19/2020 08:39:00 PM EDT [facility] G8929 Other chronic pain Other chronic pain Diagnosis 08:39:00 PM EDT [facility] F411 Generalized anxiety disorder Generalized anxiety disor fausto Diagnosis 04/19/2020 08:39:00 PM EDT [facility] [id number] Nicotine dependence, cigarettes, uncompl icated Nicotine dependence, cigarettes, uncomplicated Diagnosis 04/19/2020 08:39:00 PM EDT [facility] I10 Essential (primary) hypertension Essential (primary) h ypertension Diagnosis 04/19/2020 08:39:00 PM EDT [facility] N23660 Cannabis abuse with intoxication, unspec ified Cannabis abuse with intoxication, unspecified Diagnosis 04/19/2020 08:39:00 PM EDT [facility] R531 Weakness Weakness Diagnosis 04/19/2020 08:39:00 PM ED [facility] R11327 Pain in left leg Pain in left leg Diagnosis 04/16/2020 02 :27:00 PM [facility] I63.9 Cerebral infarction, unspecified Cerebral infarc tion, unspecified Diagnosis 04/09/2020 05:29:[address] [facility] stroke stroke Diagnosis 04/09/2020 05:29:00 PM [facility] G38147 Personal history of nicotine dependence Personal history of nicotine dependence Diagnosis 04/09/2020 11:42:00 AM [facility] I6340 Cerebral infarction due to embolism of u nspecified cerebral artery Cerebral infarction due to embolism of unspecified cerebral artery Diagnosis 04/09/2020 11:42:00 AM [facility] R202 Paresthesia of skin Paresthesia of skin Diagnosis 0 04/09/2020 11:42:00 AM [facility] R519 Headache, unspecified Headache, unspecified Diagnosis 03/29/2020 11:40:00 AM [facility] H532 Diplopia Diplopia Diagnosis 03/29/2020 11:40:00 AM [facility] R42 Dizziness and giddiness Dizziness and giddiness Diagno sis 03/29/2020 11:40:00 AM [facility] M54.31 Sciatica, right side Sciatica, right side Diagnosis 01/04/2020 09:22:55 PM [facility] M43.17 Spondylolisthesis, lumbosacral region Sp ondylolisthesis, lumbosacral region Diagnosis 01/04/2020 09:22:55 PM [facility] M6281 Muscle weakness (generalized) Muscle weakness (general ized) Diagnosis 01/04/2020 04:23:00 PM [facility] M545 Low back pain Low back pain Diagnosis 01/04/2020 04:23:00 PM [facility] [id number] Severe bipolar disorder with psychotic f eatures Severe Bipolar Disorder with Psychotic Features Problem 06/16/2020 12:00:00 AM EDT MARJORIE ([facility]) [id number] Severe bipolar disorder with psychotic f eatures Severe Bipolar Disorder with Psychotic Features Problem 06/16/2020 12:00:00 AM EDT MARJORIE ([facility]) [id number] Gastroesophageal reflux disease Gastroesophageal Reflux Disease Problem 04/13/2020 12:00:00 AM EST MARJORIE ([facility]) [id number] Chronic obstructive lung disease Chronic Obstruc tive Lung Disease Problem 04/13/2020 12:00:00 AM EST MARJORIE ([facility]) [id number] Asthma Asthma Problem 04/13/2020 12:00:00 AM ES Kelly MARJORIE ([facility]) [id number] Gastroesophageal reflux disease Gastroesophageal Reflux Disease Problem 04/13/2020 12:00:00 AM EST MARJORIE ([facility]) [id number] Chronic obstructive lung disease Chronic Obstruc tive Lung Disease Problem 04/13/2020 12:00:00 AM EST MARJORIE ([facility]) [id number] Asthma Asthma Problem 04/13/2020 12:00:00 AM TARIQ AMADOR ([facility]) [id number] Gastroesophageal reflux disease Gastroesophageal Reflux Disease Problem 04/13/2020 12:00:00 AM EST MARJORIE ([facility]) [id number] Chronic obstructive lung disease Chronic Obstruc tive Lung Disease Problem 04/13/2020 12:00:00 AM EST MARJORIE ([facility]) [id number] Asthma Asthma Problem 04/13/2020 12:00:00 AM TARIQ AMADOR ([facility]) [id number] Gastroesophageal reflux disease Gastroesophageal Reflux Disease Problem 04/13/2020 12:00:00 AM EST MARJORIE ([facility]) [id number] Chronic obstructive lung disease Chronic Obstruc tive Lung Disease Problem 04/13/2020 12:00:00 AM EST MARJORIE ([facility]) [id number] Asthma Asthma Problem 04/13/2020 12:00:00 AM TARIQ AMADOR ([facility]) [id number] Relapsing remitting multiple sclerosis R elapsing Remitting Multiple Sclerosis Problem 04/09/2020 12:00:00 AM EST MARJORIE ([facility]) [id number] Relapsing remitting multiple sclerosis R elapsing Remitting Multiple Sclerosis Problem 04/09/2020 12:00:00 AM EST MARJORIE ([facility]) [id number] Relapsing remitting multiple sclerosis R elapsing Remitting Multiple Sclerosis Problem 04/09/2020 12:00:00 AM EST MARJORIE ([facility]) [id number] Relapsing remitting multiple sclerosis R elapsing Remitting Multiple Sclerosis Problem 04/09/2020 12:00:00 AM EST MARJORIE ([facility]) [id number] Postoperative pain Postoperative Pain Problem 05/2019 12:00:00 AM EST MARJORIE ([facility]) [id number] Postoperative pain Postoperative Pain Problem 05/2019 12:00:00 AM EST MARJORIE ([facility]) [id number] Postoperative pain Postoperative Pain Problem 05/2019 12:00:00 AM EST MARJORIE ([facility]) [id number] Postoperative pain Postoperative Pain Problem 05/2019 12:00:00 AM EST MARJORIE ([facility]) [id number] Postoperative pain Postoperative Pain Problem 05/2019 12:00:00 AM EUGENIO AMADOR ([facility]) [id number] Postoperative pain Postoperative Pain Problem 05/2019 12:00:00 AM EUGENIO AMADOR ([facility]) G89.18 Post-op pain Post-op pain [id number] 01/05/2020 12:00:00 A M EST [facility] Surgeries/Procedures Procedure Description Date Indications Data Source(s) BLOOD COUNT COMPLETE AUTO&AUTO DIFRNTL WBC COUNT <td>C BC AND DIFFERENTIAL</td><td>Routine</td><td>04/12/2020 5:50 AM EST</td><td></td><td> </td> 04/12/2020 05:50:[address] [facility] BASIC METABOLIC PANEL CALCIUM TOTAL <td>BASIC METABOLI C PANEL</td><td>Routine</td><td>04/12/2020 5:50 AM EST</td><td></td><td> </td> 04/12/2020 05:50:[address] [facility] NEUTROPHIL CYTO AB COMMENT <td>NEUTROPHIL CYTO AB COMMENT</td><td>Routine</td><td>04/10/2020 4:44 PM EST</td><td></td><td> </td> 04/10/2020 04:44:[address] [facility] SYPHILIS IGG/IGM SCREEN W/REFLEX TO RPR <td>SYPHILIS I GG/IGM SCREEN W/REFLEX TO RPR</td><td>Routine</td><td>04/10/2020 4:44 PM EST</td><td></td><td> </td> 04/10/2020 04:44:[address] [facility] GAMMAGLOBULIN IGA IGD IGG IGM EACH <td>IMMUNOGLOBULIN ASSAY</td><td>Routine</td><td>04/10/2020 4:44 PM EST</td><td></td><td> </td> 04/10/2020 04:44:[address] [facility] DNA ANTIBODY BENTON/DOUBLE STRANDED <td>APOLINAR SPECIFICITY</td><td>Routine</td><td>04/10/2020 4:44 PM EST</td><td></td><td> </td> 04/10/2020 04:44:[address] [facility] IAAD EIA HIV-1 AG W/HIV-1&HIV-2 ANTBDY SINGLE <td>HIV AG AB COMBO SCREEN</td><td>Routine</td><td>04/10/2020 4:44 PM EST</td><td></td><td> </td> 04/10/2020 04:44:[address] [facility] FLUORESCENT NONNFCT AGT ANTB TITER EA ANTIBODY <td>SUZIE TROPHIL CYTOPLASMIC ANTIBODY</td><td>Routine</td><td>04/10/2020 4:44 PM EST</td><td></td><td> </td> 04/10/2020 04:44:[address] [facility] THROMBOPLASTIN TIME PARTIAL PLASMA/WHOLE BLOOD <td>HEX AGONAL PHASE PHOSPHO NEUT</td><td>Routine</td><td>04/10/2020 4:44 PM EST</td><td></td><td> </td> 04/10/2020 04:44:[address] [facility] ACUTE HEPATITIS PANEL <td>HEPATITIS PANEL, ACUTE</td><td>Routine</td><td>04/10/2020 4:44 PM EST</td><td></td><td> </td> 04/10/2020 04:44:[address] [facility] CARDIOLIPIN ANTIBODY EACH IG CLASS <td>CARDIOLIPIN ANT IBODY, IGA</td><td>Routine</td><td>04/10/2020 4:44 PM EST</td><td></td><td> </td> 04/10/2020 04:44:[address] [facility] 25 HYDROXY INCLUDES FRACTIONS IF PERFORMED <td>VITAMIN D 25 HYDROXY, TOTAL</td><td>Routine</td><td>04/10/2020 4:44 PM EST</td><td></td><td> </td> 04/10/2020 04:44:[address] [facility] HEPATITIS B SURF ANTIBODY HBSAB <td>HEPATITIS B SURFAC E ANTIBODY</td><td>Routine</td><td>04/10/2020 4:44 PM EST</td><td></td><td> </td> 04/10/2020 04:44:[address] [facility] BETA 2 GLYCOPROTEIN I ANTIBODY EACH <td>CMSZ-8-QNUKHAG OTEIN IGA</td><td>Routine</td><td>04/10/2020 4:44 PM EST</td><td></td><td> </td> 04/10/2020 04:44:[address] [facility] ANTIBODY BORRELIA BURGDORFERI LYME DISEASE <td>LYME IG G, IGM ANTIBODY</td><td>Routine</td><td>04/10/2020 4:44 PM EST</td><td></td><td> </td> 04/10/2020 04:44:[address] [facility] C-REACTIVE PROTEIN <td>INFLAMMATORY C-REACTIVE PROTEIN (CRP)</td><td>Routine</td><td>04/10/2020 4:44 PM EST</td><td></td><td> </td> 04/10/2020 04:44:[address] [facility] ANTINUCLEAR ANTIBODIES APOLINAR <td>APOLINAR</td><td>Routine</td ><td>04/10/2020 4:44 PM EST</td><td></td><td> </td> 04/10/2020 04:44:[address] [facility] PROTEIN XCPT REFRACTOMETRY SERUM PLASMA/WHL BLD <td>MI OTEIN ELECTROPHORESIS WITH SERUM TOTAL PROTEIN</td><td>Routine</td><td>04/10/2020 4:44 PM EST</td><td></td><td> </td> 04/10/2020 04:44:[address] [facility] HOMOCYSTEINE <td>HOMOCYSTEINE, SERUM</td> <td>Routine</td><td>04/10/2020 4:44 PM EST</td><td></td><td> </td> 04/10/2020 04:44:[address] [facility] FOLIC ACID SERUM <td>FOLATE</td><td>Routine</ td><td>04/10/2020 4:44 PM EST</td><td></td><td> </td> 04/10/2020 04:44:[address] [facility] CYANOCOBALAMIN VITAMIN B-12 <td>VITAMIN B12</td><td>Ro utine</td><td>04/10/2020 4:44 PM EST</td><td></td><td> </td> 04/10/2020 04:44:[address] [facility] HEPATIC FUNCTION PANEL <td>HEPATIC FUNCTION PANEL A</td><td>Routine</td><td>04/10/2020 4:44 PM EST</td><td></td><td> </td> 04/10/2020 04:44:[address] [facility] MRI SPINAL CANAL CERVICAL W/O & W/CONTR MATRL <td>MR C ERVICAL SPINE WITH AND WITHOUT CONTRAST [id number]</td><td>Routine</td><td>04/10/2020 2:44 PM EST</td><td></td><td> </td> 04/10/2020 02:44:[address] [facility] MRI BRAIN BRAIN STEM W/O &W/CONTRAST MATERIAL <td>MR B RAIN WITH AND WITHOUT CONTRAST [id number]</td><td>Routine</td><td>04/10/2020 2:44 PM EST</td><td></td><td> </td> 04/10/2020 02:44:[address] [facility] BLOOD COUNT COMPLETE AUTO&AUTO DIFRNTL WBC COUNT <td>C BC AND DIFFERENTIAL</td><td>Routine</td><td>04/10/2020 3:25 AM EST</td><td></td><td> </td> 04/10/2020 03:25:[address] [facility] BASIC METABOLIC PANEL CALCIUM TOTAL <td>BASIC METABOLI C PANEL</td><td>Routine</td><td>04/10/2020 3:25 AM EST</td><td></td><td> </td> 04/10/2020 03:25:[address] [facility] GLUCOSE QUANTITATIVE BLOOD XCPT REAGENT STRIP <td>POCT GLUCOSE, DOCKED</td><td>Routine</td><td>04/09/2020 7:45 PM EST</td><td></td><td> </td> 04/09/2020 07:45:[address] [facility] PROTHROMBIN TIME <td>PROTIME INR</td><td>Rout ine</td><td>04/09/2020 7:43 PM EST</td><td></td><td> </td> 04/09/2020 07:43:[address] [facility] BLOOD COUNT COMPLETE AUTO&AUTO DIFRNTL WBC COUNT <td>C BC AND DIFFERENTIAL</td><td>Routine</td><td>04/09/2020 7:43 PM EST</td><td></td><td> </td> 04/09/2020 07:43:[address] [facility] THYROID STIMULATING HORMONE TSH <td>TSH</td><td>Routin e</td><td>04/09/2020 7:43 PM EST</td><td></td><td> </td> 04/09/2020 07:43:[address] [facility] HEMOGLOBIN GLYCOSYLATED A1C <td>HEMOGLOBIN A1C</td><td>Routine</td><td>04/09/2020 7:43 PM EST</td><td></td><td> </td> 04/09/2020 07:43:[address] [facility] LIPID PANEL <td>LIPID PANEL</td><td>Rout ine</td><td>04/09/2020 7:43 PM EST</td><td></td><td> </td> 04/09/2020 07:43:[address] [facility] COMPREHENSIVE METABOLIC PANEL <td>COMPREHENSIVE METABO LIC PANEL</td><td>Routine</td><td>04/09/2020 7:43 PM EST</td><td></td><td> </td> 04/09/2020 07:43:[address] [facility] EKG 12-LEAD - CMAXX REPORT <td>EKG 12-LEAD - CMAXX REPORT</td><td></td><td>04/09/2020 7:25 PM EST</td><td></td><td></td> 04/09/2020 07:25:[address] [facility] EKG 12-LEAD - CMAXX REPORT <td>EKG 12-LEAD - CMAXX REPORT</td><td></td><td>04/09/2020 7:25 PM EST</td><td></td><td></td> 04/09/2020 07:25:48 PM EST [facility] EKG 12-LEAD <td>EKG 12-LEAD</td><td>Rout ine</td><td>04/09/2020 7:25 PM EST</td><td></td><td></td> 04/09/2020 07:25:48 PM EST [facility] EKG 12-LEAD <td>EKG 12-LEAD</td><td>Rout ine</td><td>04/09/2020 7:25 PM EST</td><td></td><td> </td> 04/09/2020 07:25:[address] [facility] US GUIDANCE NEEDLE PLACEMENT RS&I <td>IR US GUIDED NEE DLE PLACEMENT</td><td>Routine</td><td>01/06/2020 4:00 PM EST</td><td></td><td> </td> 01/06/2020 09:00:00 PM EST [facility] PROTHROMBIN TIME <td>PROTIME-INR</td><td>STAT </td><td>01/06/2020 11:52 AM EST</td><td></td><td> </td> 01/06/2020 04:52:00 PM EST [facility] BLOOD COUNT COMPLETE AUTO&AUTO DIFRNTL WBC COUNT <td>C BC AND DIFFERENTIAL</td><td>Routine</td><td>01/06/2020 6:23 AM EST</td><td></td><td> </td> 01/06/2020 11:23:00 AM EST [facility] MRI SPINAL CANAL LUMBAR W/O &W/CONTR MATRL <td>MRI LUM BAR SPINE W WO CONTRAST</td><td>Routine</td><td>01/05/2020 5:46 PM EST</td><td></td><td> </td> 01/05/2020 10:46:56 PM EST [facility] RADEX SPINE LUMBOSACRAL 2/3 VIEWS <td>XR LUMBAR SPINE AP AND LATERAL</td><td>Routine</td><td>01/05/2020 1:41 AM EST</td><td></td><td> </td> 01/05/2020 06:41:17 AM EST [facility] COVID/FLU AB/RSV PCR <td>COVID/FLU AB/RSV PCR</td ><td>STAT</td><td>01/04/2020 10:09 PM EST</td><td></td><td> </td> 01/05/2020 03:09:00 AM EST [facility] BLOOD COUNT COMPLETE AUTO&AUTO DIFRNTL WBC COUNT <td>C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 20:24 Patient: [...] Breath sounds normal. 3 Clinical Report - Physicians/[facility] Emergency Department [address] [place] [address] Phone #: ext- [phone] 04/19/2020 20:24 Patient: DELONTE ZAMORANO Sex: M [...] 2.0) 4 Clinical Report - Physicians/Mid Levels [facility] Emergency Department [address] [place] [address] Phone #: ext- [phone] 04/19/2020 20:24 Patient: DELONTE ZAMORANO Sex: M [...] Male GFR Interprentation 20-49 yrs >60 mL/min Zomuam30-03 yrs >56 mL/min Normal 60-69 yrs >49 mL/min Normal 70-79yrs>42 mL/min Normal 80 and above >35 mL/min Normal Female GFRInterpretation 20-39 yrs >60 mL/min Normal 40-49 yrs >58 mL/minNormal 50-59 yrs >51 mL/min Normal 60-69 yrs >45 mL/min Rudzsx50-92 yrs >39 mL/min Normal 80 and above >32 mL/min NormalLipase: (PORTIA: 04/19/2020 20:40) ( MsgRcvd 04/19/2020 21:31) Final results Test Result Flag Units (Reference) 5 Clinical Report - Physicians/Mid Levels [facility] Emergency Department [address] [place] [address] Phone #: wvw- [phone] 04/19/2020 20:24 Patient: DELONTE ZAMORANO Sex: M : 1985 Age: 34y LIPASE 37 U/L (13 - 60)PT/PTT: (PORTIA: 04/19/2020 20:40) ( [facility] 04/19/2020 21:24) Final results Test Result Flag Units (Reference) PROTIME 12.6 SECONDS (11.0 - 15.5) INR 0.90 L (0.93 - 1.23) PTT 24.1 L SECONDS (24.8 - 36.7) \\BLDo\\INR INTERPRETATION\\BLDx\\ Therapeutic range for Coumadin andrelated oral anticoagulants. -International Normalized Ratio (INR): 2.0 - 3.0 for VenousThrombosis, Pulmonary Embolus, Tissue heart valves, Acute CO Atrial Fibrillation, Valvular heart diseaseand recurrent Systemic Embolism. -International Normalized Ratio (INR): 2.5 - 3.5 forMechanical Prosthetic valve.Troponin-T: (PORTIA: 04/19/2020 20:40) ( [facility] 04/19/2020 21:32) Final results Test Result Flag Units (Reference) TROPONIN T <0.01 NG/ML (0.00 - 0.10) TROPONIN T0.1 ng/ml Recommended as the clinical threshold value forTroponin T.TSH: (PORTIA: 04/19/2020 20:40) ( [facility] 04/19/2020 21:42) Final results Test Result Flag Units (Reference) TSH 0.75 uIU/mL (0.47 - 5.01)Magnesium: (PORTIA: 04/19/2020 20:40) ( [facility] 04/19/2020 21:31) Final results Test Result Flag Units (Reference) MAGNESIUM 1.9 MG/DL (1.7 - 2.2)ETOH: (PORTIA: 04/19/2020 20:40) ( [facility] 04/19/2020 21:31) Final results Test Result Flag Units (Reference) ALCOHOL <10.0 MG/DL ALCOHOL % 0.01 % (0.00 - 0.01) *FOR MEDICAL PURPOSES ONLY*Acetaminophen Level: (PORTIA: 04/19/2020 20:40) ( [facility] Final results Test Result Flag Units (Reference) ACETAMINOPHEN <5.0 UG/ML (0.0 - 30.0)Salicylate Level: (PORTIA: 04/19/2020 20:40) ( [facility] [place]/19[facility] 21:32) Final results Test Result Flag Units (Reference) SALICYLATE <0.3 L mg/dL (2.0 - 20.0)Chest Portable 1 View: (PORTIA: 04/19/2020 21:01) ( [facility] 21:55) [place] CenterCHEST PORTABLEReason(s): overdose, AMSTRANSPORTATION: P IV? O2? Oxygen?(No) Room: [place] [address] PHONE: [phone] FAX: [phone] Clinical Report - Physicians/Mid Levels [facility] Emergency Department [address] [place] [address] Phone #: ext- [phone] 04/19/2020 20:24 Patient: DELONTE ZAMORANO Sex: M : 1985 Age: 34y Name .................. : KYLE Meyer Acct Number.................. : [id number] ROOM. ................. : TR-08 MR Number ................... : [id number] Stay type ............. : E/R Discharge Date......... ... : Admit Date ......... : 04/19/20 Admit Phys .................... : TURRIN REAGAN Date of ....... : 1985 Family Phys ................... : JOHNSON DIYA Phone .................. : [phone] Age ................................ : 34 Film# .................. .:[id number] Sex ................................. : M Unsigned transcriptions are preliminary reports and do not represent a medical or legal document CHEST PORTABLE [id number] COMPLETE:04/19/20 21:44 KJE [id number] Reason(s): overdose, AMS [...] LOT # [id number] ____04/19/20.2138.RAMYA. KIT EXP DATE _4-32-68 46/15/21.2138.RAMYA. NORMAL RANGE IS NOT DETECTEDNEGATIVE RESULTS SHOULD BE TREATEDAS PRESUMPTIVE AND, IF INCONSISTENT WITHCLINICAL SIGNS AND SYMPTOMS OR NECESSARY FOR PATIENT MANAGEMENT, SHOULDBETESTED WITH DIFFERENT AUTHORIZED OR CLEARED MOLECULAR TESTS. NEGATIVE RESULTSDO NOT PRECLUDE [id number] AND SHOULD NOT BE USED THE SOLE BASISFOR PATIENT MANAGEMENT DECISIONS.CT Head W/O Cont: (PORTIA: 04/19/2020 21:01) ( MsgRcvd 04/19/2020 21:44) In ProgressCT HEAD W/O CONTRASTReason(s): Altered Mental StatusTRANSPORTATION: S IV? O2? Oxygen?(No) Room: ED 7 Clinical Report - Physicians/Mid Levels [facility] Emergency Department [address] [place] [address] Phone #: ext- [phone] 04/19/2020 20:24 Patient: [...] was requested by: Chapito Love Reference #: [id number] Others' Prescriptions Patient Name: Delonte ZamoranoBirth Date: 1985 Address: [address] [place] [id number]: Male Rx Written Rx Dispensed Drug Quantity [...] one 8 Clinical Report - Physicians/Mid Levels [facility] Emergency Department [address] [place] [address] Phone #: ext- [phone] 04/19/2020 20:24 Patient: DELONTE ZAMORANO Sex: M [...] for police to arrive; about 10-12 minutes, [place] police arrived, came around the nurse's station where I was standing next to the sink and trying to explain the situation to him, when at that point, pt came out of room 8 walking fast towards both of us at nurse's station, police telling him to back off to room when he charged the police reserves commander while my left arm got briefly caught [...] reaction. 9 Clinical Report - Physicians/Mid Levels [facility] Emergency Department [address] [place] [address] Phone #: ext- [phone] 04/19/2020 20:24 [id number] Sex: M : 1985 Age: 34y Chronic [...] rce(s) Supporting Document(s) ID Date Data Source [id number] 04/19/2020 10:04:00 PM EDT [facility] Name Value Range Interpretation Code Description Data [facility] Supporting Document(s) pH of Serum or Plasma 7.39 7.32 - 7.43 [facility] pCO2 V 45.0 mm/HG 38.0 - 51.0 [facility] pO2 V 30.8 mm/HG 30.0 - 55.0 [facility] pital Bicarbonate [Moles/volume] in Venous blood 26.9 meq/L 22.0 - 29.0 [facility] TCO2 V 28.2 meq/L 22.0 - 29.0 [facility] Base excess in Blood by calculation 1.5 -2.0 - 2.0 [facility] O2 SAT V 58.6 % 40.0 - 85.0 [facility] ital ID Date Data Source [id number] 04/19/2020 10:03:00 PM EDT [facility] Name Value Range Interpretation Code Description Data Adriana rce(s) Supporting Document(s) Lactate [Moles/volume] in Serum or Plasma 1.9 MMOL/L 0.2 - 2.2 [facility] ID Date Data Source [id number] 04/19/2020 09:08:00 PM EDT [facility] Name Value Range Interpretation Code Description Data Adriana rce(s) Supporting Document(s) COVID19 Case rprt NOT DETECTED [facility] This lab was ordered by [facility] SPIKelly and reported by [facility]. ID Date Data Source [id number] 04/19/2020 09:39:00 PM EDT [facility] NOT DETECTEDNOT DETECTED{ PROC EDURAL CONTROL VALID KIT LOT # [id number] 04/19/20.RAMYA. KIT EXP DATE _5-56-49 04/19/20.RAMYA. NORMAL RANGE IS NOT DETECTEDNEGATIVE RESULTS [...] rce(s) Supporting Document(s) ID Date Data Source [id number] 04/19/2020 09:41:00 PM EDT [facility] Name Value Range Interpretation Code Description Data Adriana rce(s) Supporting Document(s) Thyrotropin [Units/volume] in Serum or Plasma by Detec tion limit <= 0.05 mIU/L 0.75 uIU/mL 0.47 - 5.01 [facility] ID Date Data Source [id number] 04/19/2020 09:32:00 PM EDT [facility] Name Value Range Interpretation Code Description Data Adriana rce(s) Supporting Document(s) SALICYLATE <0.3 mg/dL 2.0 - 20.0 L [facility] ID Date Data Source [id number] 04/19/2020 09:32:00 PM EDT [facility] Name Value Range Interpretation Code Description Data Adriana rce(s) Supporting Document(s) COMPREHENSIVE METABOLIC PANEL [facility] COMPREHENSIVE METABOLIC PANEL Sodium [Moles/volume] in Serum or Plasma 137 mEq/L 134 - 153 [facility] Potassium [Moles/volume] in Serum or Plasma 3.6 mEq/L 3.6 - 5.0 [facility] Chloride [Moles/volume] in Serum or Plasma 100 mEq/L 98 - 107 [facility] Carbon dioxide, total [Moles/volume] in Serum or Plasma 25 MEQ/L 22 - 30 [facility] Glucose [Mass/volume] in Serum or Plasma 161 MG/DL 70 - 99 H [facility] BUN 13 MG/DL 7 - 21 [facility] al Creatinine [Mass/volume] in Serum or Plasma 0.9 MG/DL 0.7 - 1.5 [facility] BUN/CREAT 14 8 - 27 [facility] Protein [Mass/volume] in Serum or Plasma 6.8 G/DL 6.3 - 8.2 [facility] Albumin [Mass/volume] in Serum or Plasma 4.4 G/DL 3.9 - 5.0 [facility] Globulin [Mass/volume] in Serum by calculation 2.4 GM/DL 2.4 - 3.2 [facility] A/G RATIO 1.8 0.8 - 2.0 [facility] Calcium [Mass/volume] in Serum or Plasma 8.9 MG/DL 8.4 - 10.2 [facility] Bilirubin.total [Mass/volume] in Serum or Plasma <0.7 MG/DL 0.2 - 1.3 [facility] Alkaline phosphatase [Enzymatic activity/volume] in Serum or Plasma 64 U/L 38 - 126 [facility] Aspartate aminotransferase [Enzymatic activity/volume] in Serum or Plasma 11 U/L 5 - 40 [facility] Alanine aminotransferase [Enzymatic activity/volume] in Seru m or Plasma 23 U/L 7 - 56 [facility] Anion gap 3 in Serum or Plasma 12.0 mmol/L 8.0 - 16.0 [facility] 34 [facility] GFR >60 mL/min [facility] ital AFR AMER GFR >60 mL/min [facility] Male GFR In terprentation [...] >32 mL/min Normal ID Date Data Source [id number] 04/19/2020 09:32:00 PM EDT [facility] Name Value Range Interpretation Code Description Data Adriana rce(s) Supporting Document(s) TROPONIN T <0.01 NG/ML 0.00 - 0.10 [facility] TROPONIN T0.1 ng/ml Recommended as the c linical threshold value forTroponin T. ID Date Data Source [id number] 04/19/2020 09:31:00 PM EDT [facility] Value Range Interpretation Code Description Data Adriana rce(s) Supporting Document(s) Acetaminophen [Presence] in Urine <5.0 UG/ML 0.0 - 30.0 [facility] ID Date Data Source [id number] 04/19/2020 09:31:00 PM EDT [facility] Value Range Interpretation Code Description Data Adriana rce(s) Supporting Document(s) Ethanol [Moles/volume] in Blood <10.0 MG/DL [facility] ALCOHOL % 0.01 % 0.00 - 0.01 [facility] ital *FOR MEDICAL PURPOSES ONLY * ID Date Data Source [id number] 04/19/2020 09:31:00 PM EDT [facility] Value Range Interpretation Code Description Data Adriana rce(s) Supporting Document(s) Magnesium [Mass/volume] in Serum or Plasma 1.9 MG/DL 1.7 - 2.2 [facility] ID Date Data Source [id number] 04/19/2020 09:31:00 PM EDT [facility] Value Range Interpretation Code Description Data Adriaan rce(s) Supporting Document(s) Lipase [Enzymatic activity/volume] in Serum or Plasma 37 U/L 13 - 60 [facility] ID Date Data Source [id number] 04/19/2020 09:30:00 PM EDT [facility] Name Value Range Interpretation Code Description Data Adriana rce(s) Supporting Document(s) CBC W/AUTOMATED DIFF [facility] COMPLETE BLOOD COUNT Leukocytes [#/volume] in Blood by Automated count 16.7 10^3/uL 4.2 - 11.0 H [facility] Erythrocytes [#/volume] in Blood by Automated count 5.11 10^6/uL 4. 50 - 6.30 [facility] Hemoglobin [Mass/volume] in Blood 16.0 g/dL 14.0 - 16.0 [facility] Hematocrit [Volume Fraction] of Blood by Automated count 44.3 % 4 1.0 - 51.0 [facility] Erythrocyte mean corpuscular volume [Entitic volume] by Auto mated count 86.7 fL 80.0 - 94.0 [facility] Erythrocyte mean corpuscular hemoglobin [Entitic mass] by Automated count 31.3 pg 27.0 - 34.0 [facility] Erythrocyte mean corpuscular hemoglobin concentration [Mass/volume] by Automated count 36.1 g/dL 31.0 - 36.0 H [facility] Erythrocyte distribution width [Ratio] by Automated count 12.9 % 11.5 - 14.8 [facility] Platelets [#/volume] in Blood by Automated count 453 10^3/uL 150 - 45 0 H [facility] Platelet mean volume [Entitic volume] in Blood by Automated count 9.2 fL 7.4 - 10.4 [facility] Neutrophils/100 leukocytes in Blood by Automated count 69.9 % 37. 0 - 80.0 [facility] Lymphocytes/100 leukocytes in Blood by Manual count 21.6 % 25.0 - 40.0 L [facility] Monocytes/100 leukocytes in Blood by Automated count 6.4 % 3.0 - 8.0 [facility] Eosinophils/100 leukocytes in Blood by Automated count 0.6 % 0.0 - 7.0 [facility] 0.2 %IG 1.3 % 0.0 - 0.0 H [facility] Hospit al %NRBC 0.0 % 0.0 - 0.[address] [facility] Neut[facility]ils [#/volume] in Blood by Automated count 11.66 10^3/uL 2. 00 - 6.90 H [facility] Lymphocytes [#/volume] in Blood by Automated count 3.61 10^3/uL 0.60 - 3.40 H [facility] Monocytes [#/volume] in Blood by Automated count 1.07 10^3/uL 0.00 - 0.90 H [facility] Eosinophils [#/volume] in Blood by Automated count 0.10 10^3/uL 0.00 - 0.70 [facility] Basophils [#/volume] in Blood by Automated count 0.04 10^3/uL 0.00 - 0.20 [facility] #IG 0.22 10^3/uL 0.00 - 0.10 H [facility] H ospital #NRBC 0.00 10^3/uL 0.00 - 0.00 [facility]spital MANUAL DIFF SEE BELOW [facility] ital Segmented neutrophils/100 leukocytes in Blood by Manual count 66 % 37 - 80 [facility] BAND 0 % 0 - 5 [facility] Hospit al %LYMPH 26 % 25 - 40 [facility] %MONO 7 % 3 - 8 [facility] %EOS 1 % 0 - 7 [facility] 0 Metamyelocytes/100 leukocytes in Blood by Manual count 0 % [facility] Myelocytes/100 leukocytes in Blood by Manual count 0 % [facility] Promyelocytes/100 leukocytes in Blood by Manual count 0 % [facility] Blasts/100 leukocytes in Blood by Manual count 0 % [facility] VIKI LYM 0 % [facility] Nucleated erythrocytes/100 erythrocytes in Blood by Manual count 0 % [facility] RBC MORPH NOT INDICATED [facility] Ho spital ID Date Data Source [id number] 04/19/2020 09:24:00 PM EDT [facility] Name Value Range Interpretation Code Description Data Adriana rce(s) Supporting Document(s) Prothrombin time (PT) 12.6 SECONDS 11.0 - 15.5 [facility] INR in Platelet poor plasma by Coagulation assay 0.90 0.93 - 1. 23 L [facility] aPTT in Blood by Coagulation assay 24.1 SECONDS 24.8 - 36.7 L [facility] \\BLDo\\INR INTERPRETATION\\BLDx\\ Therapeutic range for Coumadin and related oral anticoagulants. - International Normalized Ratio (INR): 2.0 - 3.0 for Venous Thrombosis, Pulmonary Embolus, Tissue heart valves, Acute CO Atrial Fibrillation, Valvular heart disease and recurrent Systemic Embolism. - International Normalized Ratio (INR): 2.5 - 3.5 for Mechanical Prosthetic valve. ID Date Data Source [id number] 04/16/2020 04:19:00 PM EST [facility] Name Value Range Interpretation Code Description Data Adriana rce(s) Supporting Document(s) COMPREHENSIVE METABOLIC PANEL [facility] COMPREHENSIVE METABOLIC PANEL Sodium [Moles/volume] in Serum or Plasma 142 mEq/L 134 - 153 [facility] Potassium [Moles/volume] in Serum or Plasma 3.3 mEq/L 3.6 - 5.0 L [facility] Chloride [Moles/volume] in Serum or Plasma 103 mEq/L 98 - 107 [facility] Carbon dioxide, total [Moles/volume] in Serum or Plasma 26 MEQ/L 22 - 30 [facility] Glucose [Mass/volume] in Serum or Plasma 110 MG/DL 70 - 99 H [facility] BUN 17 MG/DL 7 - 21 [facility] al Creatinine [Mass/volume] in Serum or Plasma 0.9 MG/DL 0.7 - 1.5 [facility] BUN/CREAT 19 8 - 27 [facility] al Protein [Mass/volume] in Serum or Plasma 6.6 G/DL 6.3 - 8.2 [facility] Albumin [Mass/volume] in Serum or Plasma 4.3 G/DL 3.9 - 5.0 [facility] Globulin [Mass/volume] in Serum by calculation 2.3 GM/DL 2.4 - 3.2 L [facility] A/G RATIO 1.9 0.8 - 2.0 [facility] Calcium [Mass/volume] in Serum or Plasma 8.9 MG/DL 8.4 - 10.2 [facility] Bilirubin.total [Mass/volume] in Serum or Plasma <0.7 MG/DL 0.2 - 1.3 [facility] Alkaline phosphatase [Enzymatic activity/volume] in Serum or Plasma 59 U/L 38 - 126 [facility] Aspartate aminotransferase [Enzymatic activity/volume] in Serum or Plasma 12 U/L 5 - 40 [facility] Alanine aminotransferase [Enzymatic activity/volume] in Seru m or Plasma 21 U/L 7 - 56 [facility] Anion gap 3 in Serum or Plasma 13.0 mmol/L 8.0 - 16.0 [facility] AGE 34 yrs [facility] Hospit al NON-AA GFR >60 mL/min [facility] Hosp ital AFR AMER GFR >60 mL/min [facility] Ho spital Male GFR In terprentation [...] >32 mL/min Normal ID Date Data Source [id number] 04/16/2020 04:11:00 PM EST [facility] Name Value Range Interpretation Code Description Data Adriana rce(s) Supporting Document(s) CBC W/AUTOMATED DIFF [facility] COMPLETE BLOOD COUNT Leukocytes [#/volume] in Blood by Automated count 20.5 10^3/uL 4.2 - 11.0 H [facility] Erythrocytes [#/volume] in Blood by Automated count 5.18 10^6/uL 4. 50 - 6.30 [facility] Hemoglobin [Mass/volume] in Blood 16.1 g/dL 14.0 - 16.0 H [facility] Hematocrit [Volume Fraction] of Blood by Automated count 44.9 % 4 1.0 - 51.0 [facility] Erythrocyte mean corpuscular volume [Entitic volume] by Auto mated count 86.7 fL 80.0 - 94.0 [facility] Erythrocyte mean corpuscular hemoglobin [Entitic mass] by Automated count 31.1 pg 27.0 - 34.0 [facility] Erythrocyte mean corpuscular hemoglobin concentration [Mass/volume] by Automated count 35.9 g/dL 31.0 - 36.0 [facility] Erythrocyte distribution width [Ratio] by Automated count 12.8 % 11.5 - 14.8 [facility] Platelets [#/volume] in Blood by Automated count 477 10^3/uL 150 - 45 0 H [facility] Platelet mean volume [Entitic volume] in Blood by Automated count 9.4 fL 7.4 - 10.4 [facility] Neutrophils/100 leukocytes in Blood by Automated count 58.9 % 37. 0 - 80.0 [facility] Lymphocytes/100 leukocytes in Blood by Manual count 29.6 % 25.0 - 40.0 [facility] Monocytes/100 leukocytes in Blood by Automated count 8.5 % 3.0 - 8.0 H [facility] Eosinophils/100 leukocytes in Blood by Automated count 0.2 % 0.0 - 7.0 [facility] 0.4 %IG 2.4 % 0.0 - 0.0 H [facility] al %NRBC 0.0 % 0.0 - 0.0 [facility] al Neutrophils [#/volume] in Blood by Automated count 12.08 10^3/uL 2. 00 - 6.90 H [facility] Lymphocytes [#/volume] in Blood by Automated count 6.08 10^3/uL 0.60 - 3.40 H [facility] Monocytes [#/volume] in Blood by Automated count 1.75 10^3/uL 0.00 - 0.90 H [facility] Eosinophils [#/volume] in Blood by Automated count 0.04 10^3/uL 0.00 - 0.70 [facility] Basophils [#/volume] in Blood by Automated count 0.08 10^3/uL 0.00 - 0.20 [facility] #IG 0.50 10^3/uL 0.00 - 0.10 H [facility] ospital #NRBC 0.00 10^3/uL 0.00 - 0.00 [facility] MANUAL DIFF SEE BELOW [facility] ital Segmented neutrophils/100 leukocytes in Blood by Manual count 61 % 37 - 80 [facility] BAND 0 % 0 - 5 [facility] al %LYMPH 30 % 25 - 40 [facility] al %MONO 9 % 3 - 8 [facility] al %EOS 0 % 0 - 7 [facility] al 0 Metamyelocytes/100 leukocytes in Blood by Manual count 0 % [facility] Myelocytes/100 leukocytes in Blood by Manual count 0 % [facility] Promyelocytes/100 leukocytes in Blood by Manual count 0 % [facility] Blasts/100 leukocytes in Blood by Manual count 0 % [facility] VIKI LYM 0 % [facility] Nucleated erythrocytes/100 erythrocytes in Blood by Manual count 0 % [facility] Hospital RBC MORPH NOT INDICATED [facility] ID Date Data Source [id number] 04/14/2020 05:03:47 PM [facility] Name Value Range Interpretation Code Description Data Adriana rce(s) Supporting Document(s) Discharge Summary [facility] [id number]/RBMtxRNSjz9DcSYesAMk8QFqhDGDiM3NwUOO1fQ0vODE1LHnJLvDwGuAvCjKg lbm [file] [id number]HWFD5VIGl== ID Date Data Source [id number] 04/09/2020 11:42:00 AM EST [facility] 1 OrderSheet [facility] Emergency Department [address] [place] [address] Phone #: ext- [phone] 04/09/2020 11:33 Patient: [...] 14:19 04/09/2020 14:19 Patrica Lopez 2 OrderSheet [facility] Emergency Department [address] [place] [address] Phone #: ext- [phone] 04/09/2020 11:33 Patient: [...] mL/hr 12:07 04/09/2020 12:31 Patrica Lopez Victoria RMrorisNMorris ;Ativan IVP 2 mg 12:58 04/09/2020 13:04 Patrica Lopez(NOW x1, HIGH Sandy Dimas R.N.ALERT R.N.; Verbal orderMEDICATION) per; Yoav VargasOfirmev IV 1000 mg 13:49 04/09/2020 14:18 Patrica Lopez(NOW x1, Infuse C Yoav stapleton R.N. 3 OrderSheet [facility] Emergency Department [address] [place] [address] Phone #: ext- [phone] 04/09/2020 11:33 Patient: DELONTE ZAMORANO Sex: M : 1985 Age: 34yover 15 minutes) ;Percocet PO 1 tab 15:34 04/09/2020 15:38 Patrica Lopez(HIGH ALERT Yoav Vargas ROniMEDICATION) ;GENERAL ORDERSOrder Description Priority Entered Acknowledged InitialedAccucheck 12:07 04/09/2020 12:21 Patrica Lopez Victoria RMorrisNMorris ;Blood Pressure 12:07 04/09/2020 12:16 John, JulYoav Valdez R.N. ;Inserter Promotional Item 12:07 04/09/2020 12:16 Patrica Lopez(continuous) Yoav Vargas [...] Patrica Lopez Victoria R.N. ; 4 OrderSheet [facility] Emergency Department [address] [place] [address] Phone #: ext- [phone] 04/09/2020 11:33 Patient: DELONTE ZAMORANO Sex: M [...] rce(s) Supporting Document(s) ID Date Data Source [id number] 04/09/2020 11:42:00 AM EST [facility] 1 Medication Reconciliation Report [facility] Emergency Department [address] [place] [address] Phone #: ext- [phone] 04/09/2020 11:33 Patient: [...] rce(s) Supporting Document(s) ID Date Data Source [id number] 04/09/2020 11:42:00 AM EST [facility] 1 Medication Administration Record [facility] Emergency Department [address] [place] [address] Phone #: ext- [phone] 04/09/2020 11:33 Patient: [...] rce(s) Supporting Document(s) ID Date Data Source [id number] 04/09/2020 11:42:00 AM [facility] 1 General Instructions [facility] Emergency Department [address] [place] [address] Phone #: ext- [phone] 04/09/2020 11:33 Patient: DELONTE ZAMORANO Sex: M : 1985 Age: 34yNontraumatic cerebrovascular accident- embolic ischemic infarct involving an unknown intracranial artery.No hemorrhage.(Electronically signed by Yoav Vargas 04/10/2020 05:18) Name Value Range Interpretation Code Description Data Adriana rce(s) Supporting Document(s) ID Date Data Source [id number] 04/09/2020 11:42:00 AM [facility] 1 Clinical Report - Nurses [facility] Emergency Department [address] [place] [address] Phone #: ext- [phone] 04/09/2020 11:33 Patient: [...] weeks ago). 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 (1000). --11:40 04/09/20 Patrica Lopez R.N.11:47 [...] Chest Pain. 2 Clinical Report - Nurses [facility] Emergency Department [address] [place] [address] Phone #: ext- [phone] 04/09/2020 11:33 Patient: [...] yourself?" and 3 Clinical Report - Nurses [facility] Emergency Department [address] [place] [address] Phone #: ext- [phone] 04/09/2020 11:33 Patient: [...] Lopez R.N. 12:05 04/09/20. Patient transported to [place] by stretcher with tech. --12:15 04/09/20 Patrica Lopez R.N. 12:10 04/09/20. Patient returned from CT by stretcher with nurse. --12:15 04/09/20 Patrica Lopez R.N. EKG time: (12:15 04/09/2020). --12:16 04/09/20 Patrica Lopez R.N. 12:17 04/09/20. BP: 146/83. MAP: 104. HR: 75. RR: 11. O2 saturation: 100%. --12:17 04/09/20 [facility] 4 Clinical Report - Nurses [facility] Emergency Department [address] [place] [address] Phone #: ext- [phone] 04/09/2020 11:33 Patient: DELONTE ZAMORANO Sex: M : 1985 Age: 34yTech, Marisol, ER [id number] stick glucose: 86; performed by nurse; result shown to the ED physician. --12:20 04/09/20 Patrica Lopez R.N.12:29 04/09/20. BP: 126/81. MAP: 96. HR: 86. RR: 21. O2 saturation: 100%. --12:29 04/09/20 Daisha BernardaRosasMarisolJUAN Jbpx056:31 04/09/2020 Site #1 started via IV in the left antecubital space with an 18g angiocath, with aseptictechnique and good blood return; one attempt. Saline lock flushed with 10 mL saline. --12:31 04/09/20 Patrica Loepz R.N.12:31 04/09/2020 Started bag #1 1000 mL [...] Patrica Lopez R.N.13:16 04/09/20. Patient transported to [facility] by wheelchair with tech. --13:21 04/09/20 Patrica Lopez R.N.13:46 04/09/20. BP: 146/84. MAP: 104. HR: 91. RR: 19. O2 saturation: 100%. --13:47 04/09/20 Marisol Harris ER Npji8Eddethr returned from [facility] by wheelchair with tech. --13:49 04/09/20 [...] R.N.( pt made aware of transport to [facility]). --14:20 04/09/20 Patrica Lopez R.N.14:34 04/09/20. BP: 149/99. MAP: 115. HR: 78. RR: 18. O2 saturation: 100%. --14:34 04/09/20 [employer] 5 Clinical Report - Nurses [facility] Emergency Department [address] [place] [address] Phone #: ext- [phone] 04/09/2020 11:33 Patient: DELONTE ZAMORANO Sex: M : 1985 Age: 34y 14:59 04/09/20. BP: 144/102. MAP: 116. HR: 67. RR: 18. O2 saturation: 97%. --15:00 04/09/20 [employer] ( waiting for transfer to [facility] no change in neuro status). --15:12 04/09/20 Patrica Lopez R.N. 15:34 04/09/20. BP: 126/102. MAP: 110. HR: 90. RR: 21. O2 saturation: 100%. --15:34 04/09/20 Pl[employer] 15:37 04/09/2020 Ofirmev IV Discontinued: completed. [...] Patrica Lopez R.N.DISPOSITION / DISCHARGE Transferred to [facility]. Visit overview, summary of care (CCDA) and [...] Lopez R.N. 6 Clinical Report - Nurses [facility] Emergency Department [address] [place] [address] Phone #: ext- [phone] 04/09/2020 11:33 Patient: DELONTE ZAMORANO Sex: M : 1985 Age: 34y Name Value Range Interpretation Code Description Data Adriana rce(s) Supporting Document(s) ID Date Data Source [id number] 04/09/2020 11:42:00 AM EST [facility] 1 Clinical Report - Physicians/Mid Levels [facility] Emergency Department [address] [place] [address] Phone #: ext- [phone] 04/09/2020 11:33 Patient: DELONTE ZAMORANO Sex: M [...] Disease. 2 Clinical Report - Physicians/Mid Levels [facility] Emergency Department [address] [place] [address] Phone #: ext- [phone] 04/09/2020 11:33 Patient: [...] nystagmus. 3 Clinical Report - Physicians/Mid Levels [facility] Emergency Department [address] [place] [address] Phone #: wla- [phone] 04/09/2020 11:33 Patient: DELONTE ZAMORANO Sex: M [...] (Reference) 4 Clinical Report - Physicians/Mid Levels [facility] Emergency Department [address] [place] [address] Phone #: ext- [phone] 04/09/2020 11:33 Patient: DELONTE ZAMORANO Sex: M [...] NOT INDICATEDFibrinogen Level: (PORTIA: 04/09/2020 12:38) ( [facility] 04/09/2020 13:42) Final results Test Result Flag Units (Reference) FIBRINOGEN 285.0 mg/dL (179 - 506)PT/INR: (PORTIA: 04/09/2020 12:38) ( [facility] 04/09/2020 12:42) CanceledPT/PTT: (PORTIA: 04/09/2020 12:38) ( [facility] 04/09/2020 13:42) Final results Test Result Flag Units (Reference) PROTIME 12.7 SECONDS (11.0 - 15.5) INR 0.91 L (0.93 - 1.23) PTT 28.5 SECONDS (24.8 - 36.7) \\BLDo\\INR INTERPRETATION\\BLDx\\ Therapeutic range for Coumadin andrelated oral anticoagulants. -International Normalized Ratio (INR): 2.0 - 3.0 for VenousThrombosis, Pulmonary Embolus, Tissue heart valves, Acute CO Atrial Fibrillation, Valvular heart diseaseand recurrent Systemic Embolism. -International Normalized Ratio (INR): 2.5 - 3.5 forMechanical Prosthetic valve.Venous Blood Gas: (PORTIA: 04/09/2020 12:38) ( [facility] 04/09/2020 12:53) Final results Test Result Flag [...] 85.0) 5 Clinical Report - Physicians/Mid Levels [facility] Emergency Department [address] [place] [address] Phone #: ext- [phone] 04/09/2020 11:33 Patient: DELONTE ZAMORANO Sex: M [...] discussed the case with DR Duffy at [facility] who accepted the patient 15:35 04/09/20. patient [...] to transfer explained to patient. Transferred to [facility]. 14:06 14:06. UTI (catheter associated) was not [...] 04/10/2020 05:18) 6Clinical Report - Physicians/Mid Levels [facility] Emergency Department [address] [place] [address] Phone #: ext- [phone] 04/09/2020 11:33 Patient: DELONTE ZAMORANO Sex: M : 1985 Age: 34y Name Value Range Interpretation Code Description Data Adriana rce(s) Supporting Document(s) ID Date Data Source [id number] 04/09/2020 11:42:00 AM [facility] Addenda for DELONTE ZAMORANO VisitID: [id number] Date: 12:06blood culture positive for staph, results faxed to [facility](Electronically signed by Brianne Arcos RN - 04/11/2020 12:06)04/14/2020 13:52Previously already faxed to [facility] on 04/11/2020; Shown to Niurka CHAVEZ at 1352, okay with this, nofurther intervention required.(Electronically signed by Sandy Dimas R.N. - 04/14/2020 13:52) Name Value Range Interpretation Code Description Data Adriana rce(s) Supporting Document(s) ID Date Data Source [id number] 04/12/2020 02:51:26 PM [facility] Name Value Range Interpretation Code Description Data Adriana rce(s) Supporting Document(s) Consultation [facility] ISDGGb0sXbXCCiKb92/YMOktYIMcz5TaFBnrMPv2BZkzZRZqW0NvIRD1oB5eIXS2LYgBWwMcLbGcQgZ8 lbm [file] counter tacker+ZH1MtH0IsLK0wd9+jCW7qe3f2iffVpb3cwW5MN bGKNq5Pc46p+JkhX1EGJDiLzVUZ7mJS9e02SRGsYu12L0RIt9CUmgr28fzyoa1IgAw95A+jpkDcMtQHK t+32OMLz/MIN7nYcGZYLa5V5rmIVts4UgsuV/Gjr1/1XHr/1X3OZ5n51/vxX7yxLBtY15WyrqlbmDf3Y XBRIPyQzmZnsMHMtaVWPzNrSOMxCu+lL2PSs/e5afj YDP4kP5QR5Pts3Nll5F5xAD9mpGeEyTOahKdkj1TVsDXjYi236JyvMmzAXnp0PdFwHVBk+KBiDQKbTo8 ZTNFXd7kv2k7H0IjXiMo/K0ilTniTfyoKHEkePSWTLU6sBBRWNuHInBU8HJ5lLKdJMcaZHtIGq99lYp1 oHv5BeHWfyuMi2CoCJdB2FR/EVsuUA6sNn9QAt0Wst 0F/4x41IhG0JP/Senior Contracts Manager+OdJnge33igrGxmhZfAlpWt/Cjn7pqXVFvAnNIY1pgTxcJ0DZX4se0SjHTcoCFJr [file] ICAgICAgICAgICAgICAgICAgICAgICAgICAgICAgICAgICAgICAgICAgICAgICAgICAgICAgICAgICAg ZRSvIIOjOLTjVFNpLIVeQKRiZT5YLMDnMSUbZNTbOURxIQUdFCIhMVAeYQYbGROuVKSkHXSoHASrSGCk ICAgICAgICAgICAgICAgICAgICAgICAgICAgICAgIC ZaLKCjCYRrJRFnRKCrTJUaNZXlMOMsXBWjHWDmXT6SHJEcXOZqOJNySQIeOPZeXSQfQZPxDPRdKLLaUG AgICAgICAgICAgICAgICAgICAgICAgICAgICAgICAgICAgICAgICAgICAgICAgICAgICAgICAgICAgIC MrAMDmIPJlYIVrMD4MZZJaBQZpFNIhJUExZPAyNKLh ICAgICAgICAgICAgICAgICAgICAgICAgICAgICAgICAgICAgICAgICAgICAgICAgICAgICAgICAgICAg ZHXyTNIkGDOoQWOsYOWxXWSxHNNsHQ2RIIXkPGNhBMZmTPFeDHRlIXVeRCQfJHQxTIIvBSYrKFRyXKWa ICAgICAgICAgICAgICAgICAgICAgICAgICAgICAgIC SkYVDySJLrQXYtCUFeHYMhQEFeNXRrWGXgHLBhUKHaPQ6FTXBuOWQwWKSaSCQvNJLlQVTpJLTwXMJgMB AgICAgICAgICAgICAgICAgICAgICAgICAgICAgICAgICAgICAgICAgICAgICAgICAgICAgICAgICAgIC GsVFRtMZNjNCYiLEPfGQ2DJUHcBUIwTRQdIIAgFCAd ICAgICAgICAgICAgICAgICAgICAgICAgICAgICAgICAgICAgICAgICAgICAgICAgICAgICAgICAgICAg UHKcEJNgTOBpHTSfKONjQCDbKZNuOSCdGU0UBKVfUFApHXXaAMWoODWyUQMuPCIsQGScOHBvRWJoDTAg ICAgICAgICAgICAgICAgICAgICAgICAgICAgICAgIC VkHASwBUWsOSCsNUHiRGPgJKCtUEBoZVLcZXVkRPXoONDyCI6RSVHdWFDrVVMzUSXyOIPxKRNdNIGaWS AgICAgICAgICAgICAgICAgICAgICAgICAgICAgICAgICAgICAgICAgICAgICAgICAgICAgICAgICAgIC FzIHMcIBFmZBMdFFRkUWPeZS4RGAQjTOSzLOMpVJYj ICAgICAgICAgICAgICAgICAgICAgICAgICAgICAgICAgICAgICAgICAgICAgICAgICAgICAgICAgICAg KMZlRPGlIIWzQJRjACUtCQSeCINeFUYaTPSsNT6VIF32rSYyo3H7WYJgYS9yfwm/Tc1RAGdvcxNjsBEg YU6XMbLdJZ7ihb8KSoGbZW3lvx3PSNiFFsJjE5C7lA EuTHPpHECOHpSoR50eXEzoSb97KCzmGFYgMgZyJNu4Nn6QOvOyJ7peHEBzOeQ7EDNwCtP1FXTuAsG7NA XeGeUsCRNuBVGuMC0MMVSgO339mnNqNB5HUy3RUkTsLD9eyy3QKemqWELuSqrJBfu6ORqbGY7GmJVtxO BdTHZoPLSWObSeM8ixm4QdLqjcCGPWYTkjDT1Ce1Sh dCAxDQo+Ha2WFH8va6GwQMxxNSGxQR6wvo7YWDvYOhHoI4WlyKnjJRFumlU3xDRkOXQ6ZAZsfT8onCGv ZPYPmOFiWKTZJSGUGLC5KBTvEZ3kRDFxROHkIzX6HRQMJW1DBHNnELEzhIOrRYMgLXCHPH3XOXslJVI6 NKZswoPiyQAbGQfxQM7SJKHlfnHhDptqPPVPXAs+Pg 0KMF4ca2OuWZwgTWGfNT6zyw8NPBjLWjOmB0D0xIUvJ0V0QIqpNi7XBDWgYRIqNoMlQHSITXjnRK2MED 7ayyR4SR1IcDTwUWRjPLMydBFfJQe5K83mvIGcXVcjFH0VDJT+Claudia+Eh1CYVWeXQPlWAGgUrRbLQVXJv OrE9VyR9HIi1KkG9GpSV37gCtrkeNaYKggJN5IPI1i BMShIIUDQT9IxDLpxO0trjAhGICzOTKMGvZtG78qlMNfZAVhTNN4XFWfOi0FNWAwC5AcgoTygAhspnPe MOIwGLDOPX9UMAhbklPxaALjeYmoRF28pDabBI8KNe5LMmXdSI4cve8BbNJaMc1XAELdTB2QUQXoNGPg HCFkDOB1EKUiEpAlHZadZBKsGSGzHBB3XQSuXYGtSS 8WSbBvMSNhYjR8UQpuIOQfGHHtwx9IIWXjNFSgQpE1HnKjJFMeGTVnXPgrENDwUDVsBXV7QSGgROAhUH 0SOrPlWTMuLKT1XqgxKSWcMJAbjy1KUCPgBLVtZfbjRgAwCNExKDHiKWkzTMJyLQS7JQEzPKIgYOLzWV 3PFlOmAQZcFKesPuZcDEBaFZUral0WJGHgQTAlMUe3 WINnVILfFBOmUOirUFPySMEvTAL3FSHrXMDsJD6XXtOmMHSuCAXbFJvyAGBzITKomo8BGLOmODThOZUc HtCfCDSgKWZdGCbpMEBzLNG0AGKwPNVfHBHrJX7UGbSjPFHnPOU1TvYaTMJsCFHpwj9VZAFhBFAyPTw7 WxIdSFLtIXBbEKquHRIkBDK7VNObIXNaVDHxTA1PVh WlWRTwUWuoZWMqNPNeBEFmbr6ENPIcROBuBaF4LvUnNFXxRSWqPRcjEHRtNPW7EHp3WHVcLGNaSL3IVr GyYYDvUcw0EZAoTXIiGRHgri9JMZEzBRJuCKHzTVQgARDrRKSoIYkzCNZpTNR6BmMkVJOlNJIxYB2JBh VlUQPjKke8DEdgYRGmJDWqix8TQSAfWBSqMAImWCRe VWHcPRVwHOusUDBzYUSuYqJ0MIEdBPUiCU9SDaSwNGHzEbT6CHGnHAMtBZItsx3IFMFqJIDeHTWrTnLg AYSzAOXrCLowSWDdWRFhXuycVIIvBVFwOI8BWgVfMJLqJiV2UQVfLOMxKEOhwd9SLPEoJAPmKrk7TLFz VMLnTMAbQBw7ehIvuOBcOFr7OE9ML2ShyiZgZuFRXm 9On464WILxSTTpZa9AG2ytOw8yHLBtIJONOu1FIVx0WfM6TMD9RjWxBJlkEIVnJukfWDGrI6V7MLFdJ3 MxMjg+JEnnJmg1JWwuKDSdTES2MISvPVUoZzUaIeMxBDYzRnSnUU4rFFJRRh9+DQpzdGFydHhyZWYNCj XjILN8KEqxVFWJRo5Q ID Date Data Source [id number] 04/12/2020 10:05:00 AM EST [facility] [address] [place] [address] PHONE: [phone] FAX: [phone] Name .................. : KYLE DELONTE M Acct Number.................. : [id number] ROOM. ................. : VT- Number ................... : [id number] Stay type ............. : E/R Discharge Date......... ... : 04/09/20 Admit Date ......... : 04/09/20 Admit Phys .................... : [facility] Date of ....... : 1985 Family Phys ................... : ALEX KEANE Phone .................. : [phone] Age ................................ : 34 Film# .................. .:[id number] Sex ................................. : M Unsigned transcriptions are preliminary reports and do not represent a medical or legal document CHEST PORTABLE [id number] COMPLETE:04/09/20 19:10 MADHAV 5645 Reason(s): stroke PORTABLE [...] rce(s) Supporting Document(s) ID Date Data Source [id number] 04/12/2020 10:05:00 AM EST [facility] [address] [place] [address] PHONE: [phone] FAX: [phone] Name .................. : KYLE Meyer Acct Number.................. : [id number] ROOM. ................. : VT-01 MR Number ................... : [id number] Stay type ............. : E/R Discharge Date......... ... : 04/09/20 Admit Date ......... : 04/09/20 [facility] .................... [facility] Date of ....... : 1985 Family Phys ................... : ALEX KEANE Phone .................. : [phone] Age ................................ : 34 Film# .................. .:[id number] Sex ................................. : Betsy Unsigned transcriptions are preliminary reports and do not represent a medical or legal document CT HEAD(STROKE PROTOCOL) W/O [id number] COMPLETE:04/09/20 15:38 RLB 5646 Reason(s): left sided [...] imperative reconstructive techniques. Page 1 of 2 [place] [address] PHONE: [phone] FAX: [phone] Name .................. : ZAMORANO DELONTE M Acct Number.................. : [id number] ROOM. ................. : VT-01 MR Number ................... : [id number] Stay type ............. : E/R Discharge Date......... ... : 04/09/20 Admit Date ......... : 04/09/20 Admit Phys .................... : MARIANACLAYKANDY Date of ....... : 1985 Family Phys ................... : ALEX KEANE Phone .................. : [phone] Age ................................ : 34 Film# .................. .:[id number] Sex ................................. : M Unsigned transcriptions are preliminary reports and do not represent a medical or legal document CT HEAD(STROKE PRO TOCOL) W/O [id number] COMPLETE:04/09/20 15:38 RLB 5646 Reason(s): left sided weakness and numbness CT dose: 864.3 mGycm Electronically Reviewed and Signed By Yusuf Love MD , 04/12/20 10:05, PERFECTO Transcribe Initials: MELANIE , Transcribe Date: 04/10/20 05:49, Dictation Date: Copy for: 710 MED REC DISCHARGED Page 2 of 2 Name Value Range Interpretation Code Description Data Adriana rce(s) Supporting Document(s) ID Date Data Source [id number] 04/12/2020 10:04:00 AM EST [facility] [address] [place] [address] PHONE: [phone] FAX: [phone] Name .................. : KYLE Meyer Acct Number.................. : [id number] ROOM. ................. : VT-01 MR Number ................... : [id number] Stay type ............. : E/R Discharge Date......... ... : 04/09/20 Admit Date ......... : 04/09/20 Admit Phys .................... : CHANLIECCO Date of ....... : 1985 Family Phys ................... : JOHNSON DIYA Phone .................. : [phone] Age ................................ : 34 Film# .................. .:[id number] Sex ................................. : M Unsigned transcriptions are preliminary reports and do not represent a medical or legal document MRI BRAIN W/O CONTRAST [id number] COMPLETE:04/09/20 15:16 [facility]50 Reason(s): left sided weakness. possible stroke [...] 23:48, Dictation Date: Page 1 of [address] [facility] [address] [place] [address] PHONE: [phone] FAX: [phone] Name .................. : KYLE Meyer Acct Number.................. : [id number] ROOM. ................. : VT-01 MR Number ................... : [id number] Stay type ............. : E/R Discharge Date......... ... : 04/09/20 Admit Date ......... : 04/09/20 Admit Phys .................... : ALICIA Date of ....... : 1985 Family Phys ................... : ALEX KEANE Phone .................. : [phone] Age ................................ : 34 Film# .................. .:[id number] Sex ................................. : M Unsigned transcriptions are preliminary reports and do not represent a medical or legal document MRI BRAIN W/O CONTRAST [id number] COMPLETE:04/09/20 15:16 [facility] [place]50 Reason(s): left sided weakness. possible stroke Copy for: 710 MED REC DISCHARGED Page 2 of 2 Name Value Range Interpretation Code Description Data Adriana rce(s) Supporting Document(s) ID Date Data Source [id number] 04/12/2020 06:13:49 AM EST [facility] Name Value Range Interpretation Code Description Data Adriana rce(s) Supporting Document(s) Leukocytes [#/volume] in Blood by Automated count 19.6 10*3/uL 4-10 H [facility] Erythrocytes [#/volume] in Blood by Automated count 4.76 10*6/uL 4.6- 6.1 [facility] Hemoglobin [Mass/volume] in Blood 14.6 g/dL 13.5-18 [facility] Hematocrit [Volume Fraction] of Blood by Automated count 42.4 % 4 1-53 [facility] Erythrocyte mean corpuscular volume [Entitic volume] by Auto mated count 89.1 fL 80-96 [facility] Erythrocyte mean corpuscular hemoglobin [Entitic mass] by Automated count 30.7 pg 27-33 [facility] Erythrocyte mean corpuscular hemoglobin concentration [Mass/volume] by Automated count 34.5 g/dL 32.0-36.0 [facility] Erythrocyte distribution width [Ratio] by Automated count 14.1 % 11.5-14.5 [facility] Platelets [#/volume] in Blood by Automated count 399 10*3/uL 150-400 [facility] Differential cell count method - Blood [facility] Neutrophils/100 leukocytes in Blood by Automated count 84 % [facility] Lymphocytes/100 leukocytes in Blood by Automated count 9 % [facility] Monocytes/100 leukocytes in Blood by Automated count 6 % [facility] Eosinophils/100 leukocytes in Blood by Automated count 0 % [facility] Basophils/100 leukocytes in Blood by Automated count 1 % [facility] Neutrophils [#/volume] in Blood by Automated count 16.56 10*3/uL 1.8- 7.0 H [facility] Lymphocytes [#/volume] in Blood by Automated count 1.76 10*3/uL 1.2-4 .0 [facility] Monocytes [#/volume] in Blood by Automated count 1.15 10*3/uL 0-0.8 H [facility] Eosinophils [#/volume] in Blood by Automated count 0.04 10*3/uL 0-0.5 [facility] Basophils [#/volume] in Blood by Automated count 0.13 10*3/uL 0-0.2 [facility] Nucleated erythrocytes/100 leukocytes [Ratio] in Blood by Automated count 0 /100{WBCs} 0-0 [facility] ID Date Data Source [id number] 04/12/2020 10:03:53 AM [facility] Name Value Range Interpretation Code Description Data Adriana rce(s) Supporting Document(s) Bicarbonate [Moles/volume] in Serum 23 mmol/L 22-29 [facility] Chloride [Moles/volume] in Serum or Plasma 102 mmol/L 98-107 [facility] Creatinine [Mass/volume] in Serum or Plasma 0.87 mg/dL 0.70-1.20 [facility] Glucose [Mass/volume] in Serum or Plasma 140 mg/dL 70-140 [facility] Potassium [Moles/volume] in Serum or Plasma 4.8 mmol/L 3.4-5.1 [facility] Sodium [Moles/volume] in Serum or Plasma 136 mmol/L 136-145 [facility] Urea nitrogen [Mass/volume] in Serum or Plasma 16 mg/dL 6-20 [facility] Confirmed Anion gap 3 in Serum or Plasma 12 mmol/L 8-15 [facility] Osmolality of Serum or Plasma by calculation 285 mosm/kg 275-300 [facility] Confirmed Creatinine/Urea nitrogen [Mass Ratio] in Serum or Plasma 19 [facility] Confirmed Calcium [Mass/volume] in Serum or Plasma 9.4 mg/dL 8.6-10.0 [facility] Glomerular filtration rate/1.73 sq M pre dicted among non-blacks [Volume Rate/Area] in Serum or Plasma by Creatinine-based formula (MDRD) >6 0 [facility] Glomerular filtration rate/1.73 sq M pre dicted among blacks [Volume Rate/Area] in Serum or Plasma by Creatinine-based formula (MDRD) >60 [facility] ID Date Data Source [id number] 04/11/2020 01:44:57 PM [facility] MR CERVICAL SPINE WITH AND WITHOUT CONTR AST [id number] RESULT - FINALInterpreted by:Lele Menchaca MDAddendum BeginsSigned on SunApr 11, 2020 1:42 PM by Jose Maharaj MDAddended Findings were discussed with Dr. Hernandez by Dr. Maharaj via phone at 04/11/2020 1:42 PM.Addendum EndsMR CERVICAL SPINE WITH AND WITHOUT CONTRAST [id number] INDICATION: Evaluate for enhancing lesions, concern for [...] rce(s) Supporting Document(s) ID Date Data Source [id number] 04/11/2020 09:10:58 AM [facility] MR BRAIN WITH AND WITHOUT CONTRAST [id number] FINAL RESULTInterpreted by:Lele Menchaca MDClinical Indication: Evaluate [...] rce(s) Supporting Document(s) ID Date Data Source [id number] 04/10/2020 08:49:17 PM [facility] Name Value Range Interpretation Code Description Data Adriana rce(s) Supporting Document(s) History and Physical [facility] VJNQSc6gRqYAWdLc34/TOZtxOQTig1KaRYifUFp4PZcpLSIxJ4SjRLF2kR6gLZJ8NDnXPlUpImDgMsI4 lbm [file] f1L9WTtiMM1i/dRIa3YSMuNQrPi6RBi2LVpt0x6p391O42g031KdHhV/[employer]++D0WEO1HTXj6VzTZ+xvug [file] AgICAgICAgICAgICAgICAgICAgICAgICAgICAgICAg ICAgICAgICAgICAgICAgICAgICAgICAgICAgICAgICAgICAgICANCiAgICAgICAgICAgICAgICAgICAg ICAgICAgICAgICAgICAgICAgICAgICAgICAgICAgICAgICAgICAgICAgICAgICAgICAgICAgICAgICAg ICAgICAgICAgICAgICAgICAgICANCiAgICAgICAgIC AgICAgICAgICAgICAgICAgICAgICAgICAgICAgICAgICAgICAgICAgICAgICAgICAgICAgICAgICAgIC AgICAgICAgICAgICAgICAgICAgICAgICAgICAgICANCiAgICAgICAgICAgICAgICAgICAgICAgICAgIC AgICAgICAgICAgICAgICAgICAgICAgICAgICAgICAg ICAgICAgICAgICAgICAgICAgICAgICAgICAgICAgICAgICAgICAgICANCiAgICAgICAgICAgICAgICAg ICAgICAgICAgICAgICAgICAgICAgICAgICAgICAgICAgICAgICAgICAgICAgICAgICAgICAgICAgICAg ICAgICAgICAgICAgICAgICAgICAgICANCiAgICAgIC AgICAgICAgICAgICAgICAgICAgICAgICAgICAgICAgICAgICAgICAgICAgICAgICAgICAgICAgICAgIC AgICAgICAgICAgICAgICAgICAgICAgICAgICAgICAgICANCiAgICAgICAgICAgICAgICAgICAgICAgIC AgICAgICAgICAgICAgICAgICAgICAgICAgICAgICAg ICAgICAgICAgICAgICAgICAgICAgICAgICAgICAgICAgICAgICAgICAgICANCiAgICAgICAgICAgICAg ICAgICAgICAgICAgICAgICAgICAgICAgICAgICAgICAgICAgICAgICAgICAgICAgICAgICAgICAgICAg ICAgICAgICAgICAgICAgICAgICAgICAgICANCiAgIC AgICAgICAgICAgICAgICAgICAgICAgICAgICAgICAgICAgICAgICAgICAgICAgICAgICAgICAgICAgIC AgICAgICAgICAgICAgICAgICAgICAgICAgICAgICAgICAgICANCiAgICAgICAgICAgICAgICAgICAgIC AgICAgICAgICAgICAgICAgICAgICAgICAgICAgICAg ICAgICAgICAgICAgICAgICAgICAgICAgICAgICAgICAgICAgICAgICAgICAgICANCjw/rJUiZ2znkTIm jlA2M9cwJn7DVw8YHY4bt8AgFUUgJTqdumNuOgpPZtXyQVLbFcoOJwc1APwgTK5VeMKdG6ByF3BuNQdv JG6ZRLXxCIYalPCiYZOmOQCyOxH1PDMfYCyyWJ7DbP MxBRqlDVQmLHRtSuPmAZCpTTHyWZQAUKHkSCQdMhImWOHkMBKwYBEoXVMNYAU3SCBfTzGbPCblDY8Re7 LcwYB1DEc+Lw5TTZ5tx0CnIEqkRXMeGO8qxt8CWQxIGaGdT5XozeJ6XUC5HBEeLq2OUDKdIIJbhYXcUE DqHATANtPqX4XkbE27HRXBCn1+DQplbmRvYmoNCjM5 WOQrg1EbESs7ZV1UDMCwNKx5gQJzKSMMEDN5FMTkgozgnKEHiv8bDPECUCXevBGlKkQpSvDaDSOnCmkh TZZGUAcGLyJbG0Mbd2ZuHzQ0YYYsWtZyLRlbPJDtJjA3OG24zBvbRE4HRIXbDZWmGD62TUS0FACyEr0N Gk1PLsBpHI7jio6NHEXvKS0fnf0LUMtUOuJxV2J1vG YnR7Zvhr41VJ3ZbNZ4qKNiZR9GtH5rVZ8Xm9AaKWWjQvJdFERbAJZiSTSbWZEbUiGwND8EQCZiUtWijB TsLKT8XECiETPrDLGkDzX6BUTZBmWaD2ZsTRtoMdChQQOCZS4QTzirFXBiV8UOHSbIQG5SS0vNV4YZNo 5GIM2JQNVJQ3fYG6nRR8eSCYtlEK9DZVCjVB3+IA0K Jh3GAsWuQK4uph5QQIPuSKObUsqYGhd4ODxkJN7TsOQyQ5TjoEYct0eUJrLqF4KLIWM1DPPvHj0TPJWr GsDtWDZkIHccMU2gSXWgAFPTgKsunhI2PS2ACZ3qwaApUW7MUfJtIa2fUw9XKySkS0SbO8PdYIFhAXFY KDkfNX6SNWkvDK6eMV3Pf7WJkUTcsT3xmf3ORSZbRK OiXkbyka0ZSmxsY7P3mYwkNEFxVlmmDSJONScbPZ9UVTCsZIU6GHAzIeVoHYUGXcHwQ43aGJ1YK3Syc4 1kPrM4STImIvPkYQbyCI92iWnfliJfaXKtfTisIF6URk1+DQplbmRvYmoNCnhyZWYNCjAgNDENCjAwMD MhYHXwGHWqChD3KeOqEz3FOWUsMPChPFMyAqMeXOUy PMHvRDxzTIDbRUD9EdJ8MWYsIVDxSL8HGdBkKOIxLPk9NOJsKODiBUPnzx5MBBLzKMRqYNU9EmEzLKUc CRAiBXfdLIEbVYMmSxA8AXCbRRNhRP6EYmQnHZVwPQB6BNadPJWwADPgov2VOWCmQGEaVmAeNpEsEWKm WKZmVJrdJIRjCKT2LFP1OSOoKCEfER0URbJsDQRhRL caOUSnLPCwJKQlet2GVSCpVXEmBAe2FLByGVXuHFBgSYszKSSsVLQoCZl3QNCiQMYaQX3ZVeZyDDPfER B9PAjyAJAqXHSmxx1YSHToAXJqLUvjBnPcACUuEVWiYEfmTZSbFKL2FTXuYDWgAZZvMJ4TYxIjQTMmEE f6FEbyTGRmHTDiar4CKWAgWHRiOaZ1BRAfCXRmGEKz AZdkHXIpSYTaWhU0PFHlOTZyFJ9HRjDzPBNlUmPzKPAgRHXkPETnuu1BRLYuBHBiXfVgYaCtWQRsWMNp PTxqRVOaZYI9GTEyNMKkUXUwBR2DEpPqIQEfFxF7NTqqHLDgIBCxzi9YMSZrLOGkHOp7ToEnYVGpXGHn YCpvHCDhWMD9HGJrOLWyEIPgME6NXuLoWVIdAdVkQE PnYTKvCLUopb1FJLToYKBvMrE2MLGjTXUkGJUoTZlmFPIoRXQ9UFLwUSPgCRHdYP9STcJlSIOnAcslEE GdXSTxRNXusq4YYLPzZROqMuA8JDZrBYSpGQGlWLttPMEqEQG4BRYsLFPnHINqIS6NTfBrMIJhZzh7UV eeDHQdJXWkhw2WGFSrVEGaCKg0TLXbDGLaOHFyOMrf UPAiOAO0QFWyKOXdHNMbDC7ZYbZbCPBfVAG9VBNlOMUuRAWxpo6YMYTyMEU1JmA6WLIxPGHyUCPnILia GSBkYBQ8XKInBHMqSQIiGP1JPvMtUOCoZWc0UOhvWICxKXQbeh2XXUEaBNW5WRH8DFSsZMGaDBSoMMpl VVUaAAV5EzD3KZJaJHWcNW5NMuZkPWHiPFl0ZTStXC YuKICxfu3BRBVqPBI9REPeOyZwODVzIVRdCOh1vyScwRZtXVm1IR3TG9AzhdZcEZPJYk5Ao520YXHoUD YxOy7TU0bzVd6sOMUbAYQMOv7FHWr3QVHtUzX1HOD0MFY6EUX9YdD2IotuMoZ3JDA9XcA1KEv+IDw1YW Y5XGR2Okf6EzkwGBQwNro6UGP4PiP2XLTzJEW0FM3g XSANCj4+ICyeuYHkbIetAACHEzYwDoDyWIzzMIAHVt4W ID Date Data Source [id number] 04/10/2020 09:02:47 PM EST [facility] Name Value Range Interpretation Code Description Data Adriana rce(s) Supporting Document(s) HIV 1+2 Ab+HIV1 p24 Ag [Presence] in Serum or Plasma by Immu noassay Non Reactive [facility] Negative for HIV-1 p24 antigenand HIV-1/ HIV-2 antibodies. Nolaboratory evidence of HIVinfection. ID Date Data Source [id number] 04/10/2020 09:09:50 PM [facility] Value Range Interpretation Code Description Data Adriana rce(s) Supporting Document(s) Hepatitis A virus IgM Ab [Presence] in Serum or Plasma by Im munoassay Non Reactive [facility] No acute infection, susceptible to infec tion. Hepatitis B virus core IgM Ab [Presence] in Serum or Plasma by Immunoassay Non Reactive [facility] IgM antibodies to HBc were not detected, does not exclude the possibility of exposure to HBV. Hepatitis C virus Ab [Presence] in Serum or Plasma by Immuno assay Non Reactive [facility] No serological evidence of active infect ion. If recent exposure is suspected, test for HCV RNA. Hepatitis B virus surface Ag [Presence] in Serum or Plasma b y Immunoassay Non Reactive [facility] No active or previous infection. Suscept ible to infection. ID Date Data Source [id number] 04/10/2020 09:09:50 PM [facility] Value Range Interpretation Code Description Data Adriana rce(s) Supporting Document(s) Treponema pallidum Ab [Presence] in Serum Non Reactive [facility] ID Date Data Source [id number] 04/10/2020 09:09:50 PM [facility] Value Range Interpretation Code Description Data Adriana rce(s) Supporting Document(s) Folate [Mass/volume] in Serum or Plasma 5.97 ng/mL >4.77 [facility] ID Date Data Source [id number] 04/10/2020 09:09:50 PM [facility] Value Range Interpretation Code Description Data Adriana rce(s) Supporting Document(s) Calcidiol [Mass/volume] in Serum or Plasma 16 ng/mL >30 L [facility] ID Date Data Source [id number] 04/10/2020 09:36:16 PM [facility] Value Range Interpretation Code Description Data Adriana rce(s) Supporting Document(s) Borrelia burgdorferi IgG Ab [Presence] in Serum by Immunoassay Negative [facility] Borrelia burgdorferi IgM Ab [Presence] in Serum by Immunoassay Negative [facility] ID Date Data Source [id number] 04/10/2020 10:43:17 PM [facility] Value Range Interpretation Code Description Data Adriana rce(s) Supporting Document(s) Hepatitis B virus surface Ab [Units/volume] in Serum or Plas ma by Immunoassay >11.4 [facility] ReactiveImmunity due to hepatitis B immu nization or natural infection. ID Date Data Source [id number] 04/12/2020 09:27:43 AM [facility] Value Range Interpretation Code Description Data Adriana rce(s) Supporting Document(s) Zmhu-7-Opeawwkfzwui IgA <[address] [facility] Negative ID Date Data Source [id number] 04/12/2020 09:27:43 AM [facility] Value Range Interpretation Code Description Data Adriana rce(s) Supporting Document(s) Anticardiolipin IgA 3.2 CU <20 [facility] Negative ID Date Data Source [id number] 04/12/2020 12:40:18 PM [facility] Value Range Interpretation Code Description Data Adriana rce(s) Supporting Document(s) Neutrophil cytoplasmic Ab [Presence] in Serum by Immunofluoresce nce Negative [facility] ID Date Data Source [id number] 04/12/2020 01:09:29 PM [facility] Value Range Interpretation Code Description Data Adriana rce(s) Supporting Document(s) Nuclear Ab Pattern Homogenous [Titer] in Serum <80 [facility] Nuclear Ab pattern.speckled [Titer] in Serum 80 1/dil <80 H [facility] Nuclear Ab pattern.rim [Titer] in Serum <80 [facility] Nuclear Ab pattern.nucleolar [Titer] in Serum <80 [facility] ID Date Data Source [id number] 04/12/2020 01:20:06 PM [facility] Value Range Interpretation Code Description Data Adriana rce(s) Supporting Document(s) Sjogrens syndrome-A extractable nuclear Ab [Units/volume] in Serum by Immunofluorescence 13 [AU]/mL [address] [place] [address] Sjogrens syndrome-B extractable nuclear Ab [Units/volume] in Serum by Immunofluorescence 8 [AU]/mL [address] [place] [address] Field extractable nuclear Ab [Units/volume] in Serum b y Immunofluorescence 11 [AU]/mL [address] [place] [address] Ribonucleoprotein extractable nuclear Ab [Units/volume] in Serum by Immunofluorescence 17 U/ML [address] SCL-70 extractable nuclear Ab [Units/volume] in Serum 9 [AU]/mL [address] Haley-1 extractable nuclear Ab [Units/volume] in Serum by Immunofluorescence 25 [AU]/mL [address] [place] [address] DNA double strand Ab [Units/volume] in Serum by Immunofluore scence 0 [IU]/mL [address] [place] [address] Centromere Ab [Units/volume] in Serum 13 [AU]/mL [address] [place] [address] Histone IgG Ab [Units/volume] in Serum 12 [AU]/mL [address] [place] [address] ID Date Data Source [id number] 04/12/2020 02:44:51 PM [facility] Value Range Interpretation Code Description Data Adriana rce(s) Supporting Document(s) Protein [Mass/volume] in Serum or Plasma 7.2 g/dL 6.4-8.3 [facility] Albumin [Mass/volume] in Serum or Plasma by Electrophoresis 4.98 g/dL 3.80-5.78 [facility] Alpha 1 globulin [Mass/volume] in Serum or Plasma by Electro phoresis 0.15 g/dL 0.08-0.23 [facility] Alpha 2 globulin [Mass/volume] in Serum or Plasma by Electro phoresis 0.61 g/dL 0.45-0.92 [facility] Beta globulin [Mass/volume] in Serum or Plasma by Electropho resis 0.73 g/dL 0.50-1.03 [facility] Gamma globulin [Mass/volume] in Serum or Plasma by Electroph oresis 0.72 g/dL 0.54-1.30 [facility] Protein.monoclonal [Mass/volume] in Serum or Plasma by Electrophoresi s 0 [facility] Normally migrating gamma globulins Pathologist name [facility] ID Date Data Source [id number] 04/13/2020 11:18:24 AM [facility] Value Range Interpretation Code Description Data Adriana rce(s) Supporting Document(s) Varicella zoster virus IgG Ab [Presence] in Serum by Immunoassay 4. 32 {ISR} [facility] PositiveIndicates presence of detectable IgGantibody to Varicella-Zoster Virus bythe JORDY test. Indicative of current orprevious infection. ID Date Data Source [id number] 04/13/2020 12:35:52 PM [facility] Value Range Interpretation Code Description Data Adrinaa rce(s) Supporting Document(s) Cardiolipin IgG Ab [Interpretation] in Serum 10.2 U/mL <20.0 [facility] Negative results do not rule out Antipho spholipid syndrome. Additional APL testing should be considered. ID Date Data Source [id number] 04/13/2020 12:35:52 PM [facility] Value Range Interpretation Code Description Data Adriana rce(s) Supporting Document(s) Cardiolipin IgM Ab [Interpretation] in Serum 1.0 U/mL <20.0 [facility] Negative results do not rule out Antipho spholipid syndrome. Additional APL testing should be considered. ID Date Data Source [id number] 04/13/2020 02:09:08 PM [facility] Value Range Interpretation Code Description Data Adriana rce(s) Supporting Document(s) Angiotensin converting enzyme [Enzymatic activity/volu me] in Serum or Plasma 15 U/L 14-82 [facility] (NOTE)Performed At: [facility] [address] [id number] Morejon MD Ph:[phone] ID Date Data Source [id number] 04/16/2020 10:41:34 AM [facility] Value Range Interpretation Code Description Data Adriana rce(s) Supporting Document(s) Aquaporin 4 receptor IgG Ab [Presence] in Serum or Plasma Negative [facility] (NOTE)Recommend repeat testing in 6 [facility] [place] if clinical suspicion is high. Negative result can occur in the setting of immunosuppression. ADDITIONAL INFORMATION This test was developed and its performance characteristics determined by [facility] in a manner consistent with CLIA requirements. This test has not been cleared or approved by the U.S. Food and Drug Administration.Test Performed by:[address] [id number] Director: Jerry Morse M.D. Ph.D.; CLIA# [id number] ID Date Data Source [id number] 04/17/2020 07:05:55 PM [facility] Value Range Interpretation Code Description Data Adriana rce(s) Supporting Document(s) Methylmalonate [Moles/volume] in Serum or Plasma 173 nmol/L 0-378 [facility] Disclaimer [facility] (NOTE)This test was developed and its pe rformance characteristicsdetermined by [facility]. It has not been cleared or approvedby the Food and Drug Administration.Performed At: [facility] [place], [place] [id number] Martin MD Ph:[phone] ID Date Data Source [id number] 04/21/2020 02:08:19 PM EDT [facility] Name Value Range Interpretation Code Description Data Adriana rce(s) Supporting Document(s) Index Value 3.39 [facility] HERB virus Ab [Presence] in Serum or Plasma by Immunoassay A [facility] (NOTE)Index interpretive criteria: <0.20 negative 0.20-0.40 indeterminate >0.40 positiveTesting not performedComment(NOTE)Positive: Antibodies to HERB virus (JCV) detected indicating the patient has been exposed to JCV at an undetermined timeNegative: Antibodies to JCV not detectedPerformed At: [employer] [place] [id number] [place], [place] [id number] Jon M MD Ph:[phone] At: [facility] [id number] Morejon MD Ph:[phone](NOTE)Negative: Antibodies to JCV not detected.Inde terminate: Low [...] US Prescribing Information. ID Date Data Source [id number] 04/10/2020 06:38:36 PM [facility] Value Range Interpretation Code Description Data Adriana rce(s) Supporting Document(s) Homocysteine [Moles/volume] in Serum or Plasma 58.1 umol/L <15.0 H [facility] HemolyzedConfirmed ID Date Data Source [id number] 04/10/2020 09:06:17 PM [facility] Value Range Interpretation Code Description Data Adriana rce(s) Supporting Document(s) C reactive protein [Mass/volume] in Serum or Plasma <8.0 [facility] ID Date Data Source [id number] 04/10/2020 09:06:17 PM [facility] Value Range Interpretation Code Description Data Adriana rce(s) Supporting Document(s) Cobalamin (Vitamin B12) [Mass/volume] in Serum or Plasma 353 pg/ml 2 11-946 [facility] ID Date Data Source [id number] 04/10/2020 09:06:17 PM [facility] Value Range Interpretation Code Description Data Adriana rce(s) Supporting Document(s) IgG [Mass/volume] in Serum or Plasma 1079 mg/dL 700-1600 [facility] IgA [Mass/volume] in Serum or Plasma 266 mg/dL 70-400 [facility] IgM [Mass/volume] in Serum or Plasma 108 mg/dL 30-230 [facility] ID Date Data Source [id number] 04/10/2020 09:06:17 PM [facility] Value Range Interpretation Code Description Data Adriana rce(s) Supporting Document(s) Albumin [Mass/volume] in Serum or Plasma by Bromocresol green (BCG) dye binding method 5.0 g/dL 3.5-5.2 [facility] Bilirubin.total [Mass/volume] in Serum or Plasma 0.7 mg/dL <1.2 [facility] Bilirubin.direct [Mass/volume] in Serum or Plasma <0.3 [facility] Alkaline phosphatase [Enzymatic activity/volume] in Serum or Plasma 83 U/L 40-129 [facility] Aspartate aminotransferase [Enzymatic activity/volume] in Serum or Plasma 13 U/L <40 [facility] Alanine aminotransferase [Enzymatic activity/volume] in Seru m or Plasma 23 U/L <41 [facility] Protein [Mass/volume] in Serum or Plasma 7.7 g/dL 6.4-8.3 [facility] ID Date Data Source [id number] 04/12/2020 12:28:03 PM [facility] Name Value Range Interpretation Code Description Data Adriana rce(s) Supporting Document(s) Lupus anticoagulant neutralization plate let [Time] in Platelet poor plasma by Coagulation assay 7.7 sec <8.0 [facility] ID Date Data Source [id number] 04/10/2020 01:53:00 PM [facility] [address] [place] [address] RESPIRATORY CARE REPORT ==== ---------NAME------- NUMBER SEX AGE ADMIT DISC. XRAY# F/C TYPEMURPHY DELONTE M [id number] M [id number] 04/09/20 04/09/20 [id number] X6B E/R DATE OF : 1985 M/R# [id number] #: [id number] [place]-01 LOCATION: [facility] [address] COMPLETE:04/09/20 1 5:44 05133 PHYSICIAN: ALICIA Name Value Range Interpretation Code Description Data Adriana rce(s) Supporting Document(s) ID Date Data Source [id number] 04/10/2020 08:45:00 AM [facility] Value Range Interpretation Code Description Data Adriana rce(s) Supporting Document(s) [facility]ital [id number] [file] [id number] ID Date Data Source [id number] 04/10/2020 03:48:39 AM EST [facility] Name Value Range Interpretation Code Description Data Adriana rce(s) Supporting Document(s) Leukocytes [#/volume] in Blood by Automated count 6.9 10*3/uL 4-10 [facility] Erythrocytes [#/volume] in Blood by Automated count 4.51 10*6/uL 4.6- 6.1 L [facility] Hemoglobin [Mass/volume] in Blood 13.7 g/dL 13.5-18 [facility] Hematocrit [Volume Fraction] of Blood by Automated count 39.9 % 4 1-53 L [facility] Erythrocyte mean corpuscular volume [Entitic volume] by Auto mated count 88.4 fL 80-96 [facility] Erythrocyte mean corpuscular hemoglobin [Entitic mass] by Automated count 30.5 pg 27-33 [facility] Erythrocyte mean corpuscular hemoglobin concentration [Mass/volume] by Automated count 34.5 g/dL 32.0-36.0 [facility] Erythrocyte distribution width [Ratio] by Automated count 13.7 % 11.5-14.5 [facility] Platelets [#/volume] in Blood by Automated count 355 10*3/uL 150-400 [facility] Differential cell count method - Blood [facility] Neutrophils/100 leukocytes in Blood by Automated count 45 % [facility] Lymphocytes/100 leukocytes in Blood by Automated count 41 % [facility] Monocytes/100 leukocytes in Blood by Automated count 10 % [facility] Eosinophils/100 leukocytes in Blood by Automated count 4 % [facility] Basophils/100 leukocytes in Blood by Automated count 0 % [facility] Neutrophils [#/volume] in Blood by Automated count 3.08 10*3/uL 1.8-7 .0 [facility] Lymphocytes [#/volume] in Blood by Automated count 2.83 10*3/uL 1.2-4 .0 [facility] Monocytes [#/volume] in Blood by Automated count 0.68 10*3/uL 0-0.8 [facility] Eosinophils [#/volume] in Blood by Automated count 0.28 10*3/uL 0-0.5 [facility] Basophils [#/volume] in Blood by Automated count 0.01 10*3/uL 0-0.2 [facility] Nucleated erythrocytes/100 leukocytes [Ratio] in Blood by Automated count 0 /100{WBCs} 0-0 [facility] ID Date Data Source [id number] 04/10/2020 04:09:13 AM [facility] Name Value Range Interpretation Code Description Data Adriana rce(s) Supporting Document(s) Bicarbonate [Moles/volume] in Serum 23 mmol/L 22-29 [facility] Chloride [Moles/volume] in Serum or Plasma 105 mmol/L 98-107 [facility] Creatinine [Mass/volume] in Serum or Plasma 0.87 mg/dL 0.70-1.20 [facility] Glucose [Mass/volume] in Serum or Plasma 89 mg/dL 70-140 [facility] Potassium [Moles/volume] in Serum or Plasma 3.9 mmol/L 3.4-5.1 [facility] Sodium [Moles/volume] in Serum or Plasma 138 mmol/L 136-145 [facility] Urea nitrogen [Mass/volume] in Serum or Plasma 10 mg/dL 6-20 [facility] Anion gap 3 in Serum or Plasma 10 mmol/L 8-15 [facility] Osmolality of Serum or Plasma by calculation 285 mosm/kg 275-300 [facility] Creatinine/Urea nitrogen [Mass Ratio] in Serum or Plasma 11 [facility] Calcium [Mass/volume] in Serum or Plasma 8.7 mg/dL 8.6-10.0 [facility] Glomerular filtration rate/1.73 sq M pre dicted among non-blacks [Volume Rate/Area] in Serum or Plasma by Creatinine-based formula (MDRD) >6 0 [facility] Glomerular filtration rate/1.73 sq M pre dicted among blacks [Volume Rate/Area] in Serum or Plasma by Creatinine-based formula (MDRD) >60 [facility] ID Date Data Source [id number] 04/09/2020 07:48:25 PM [facility] Name Value Range Interpretation Code Description Data Adriana rce(s) Supporting Document(s) Glucose [Mass/volume] in Capillary blood by Glucometer 98 mg/dL 70- 140 [facility] ID Date Data Source [id number] 04/09/2020 08:12:00 PM EST [facility] Name Value Range Interpretation Code Description Data Adriana rce(s) Supporting Document(s) Leukocytes [#/volume] in Blood by Automated count 8.5 10*3/uL 4-10 [facility] Erythrocytes [#/volume] in Blood by Automated count 4.96 10*6/uL 4.6- 6.1 [facility] Hemoglobin [Mass/volume] in Blood 15.2 g/dL 13.5-18 [facility] Hematocrit [Volume Fraction] of Blood by Automated count 44.3 % 4 1-53 [facility] Erythrocyte mean corpuscular volume [Entitic volume] by Auto mated count 89.3 fL 80-96 [facility] Erythrocyte mean corpuscular hemoglobin [Entitic mass] by Automated count 30.7 pg 27-33 [facility] Erythrocyte mean corpuscular hemoglobin concentration [Mass/volume] by Automated count 34.3 g/dL 32.0-36.0 [facility] Erythrocyte distribution width [Ratio] by Automated count 14.2 % 11.5-14.5 [facility] Platelets [#/volume] in Blood by Automated count 398 10*3/uL 150-400 [facility] Differential cell count method - Blood [facility] Neutrophils/100 leukocytes in Blood by Automated count 52 % [facility] Lymphocytes/100 leukocytes in Blood by Automated count 37 % [facility] Monocytes/100 leukocytes in Blood by Automated count 8 % [facility] Eosinophils/100 leukocytes in Blood by Automated count 2 % [facility] Basophils/100 leukocytes in Blood by Automated count 1 % [facility] Neutrophils [#/volume] in Blood by Automated count 4.43 10*3/uL 1.8-7 .0 [facility] Lymphocytes [#/volume] in Blood by Automated count 3.14 10*3/uL 1.2-4 .0 [facility] Monocytes [#/volume] in Blood by Automated count 0.69 10*3/uL 0-0.8 [facility] Eosinophils [#/volume] in Blood by Automated count 0.17 10*3/uL 0-0.5 [facility] Basophils [#/volume] in Blood by Automated count 0.06 10*3/uL 0-0.2 [facility] Nucleated erythrocytes/100 leukocytes [Ratio] in Blood by Automated count 0 /100{WBCs} 0-0 [facility] ID Date Data Source [id number] 04/09/2020 08:26:36 PM [facility] Name Value Range Interpretation Code Description Data Adriana rce(s) Supporting Document(s) Prothrombin time (PT) 13.3 s 12.5-14.9 [facility] INR in Platelet poor plasma by Coagulation assay 1.00 [facility] Routine intensity oral anticoagulation I NR is typically 2.0-3.0. Target INR must be clinically individualized. ID Date Data Source [id number] 04/09/2020 08:42:50 PM [facility] Name Value Range Interpretation Code Description Data Adriana rce(s) Supporting Document(s) Cholesterol [Mass/volume] in Serum or Plasma 169 mg/dL <200 [facility] Triglyceride [Mass/volume] in Serum or Plasma 157 mg/dL <150 H [facility] Cholesterol in HDL [Mass/volume] in Serum or Plasma 40 mg/dL >40 L [facility] Cholesterol in LDL [Mass/volume] in Serum or Plasma by calcu lation 98 mg/dL <100 [facility] Cholesterol in VLDL [Mass/volume] in Serum or Plasma by calc ulation 31 mg/dl 16-42 [facility] Cholesterol non HDL [Mass/volume] in Serum or Plasma 129 mg/dL <130 [facility] ID Date Data Source [id number] 04/09/2020 08:42:50 PM [facility] Value Range Interpretation Code Description Data Adriana rce(s) Supporting Document(s) Albumin [Mass/volume] in Serum or Plasma by Bromocresol green (BCG) dye binding method 4.5 g/dL 3.5-5.2 [facility] Bilirubin.total [Mass/volume] in Serum or Plasma 0.4 mg/dL <1.2 [facility] Calcium [Mass/volume] in Serum or Plasma 9.0 mg/dL 8.6-10.0 [facility] Chloride [Moles/volume] in Serum or Plasma 106 mmol/L 98-107 [facility] Creatinine [Mass/volume] in Serum or Plasma 0.87 mg/dL 0.70-1.20 [facility] Glucose [Mass/volume] in Serum or Plasma 89 mg/dL 70-140 [facility] Alkaline phosphatase [Enzymatic activity/volume] in Serum or Plasma 77 U/L 40-129 [facility] Potassium [Moles/volume] in Serum or Plasma 3.9 mmol/L 3.4-5.1 [facility] Protein [Mass/volume] in Serum or Plasma 7.0 g/dL 6.4-8.3 [facility] Sodium [Moles/volume] in Serum or Plasma 139 mmol/L 136-145 [facility] Aspartate aminotransferase [Enzymatic activity/volume] in Serum or Plasma 13 U/L <40 [facility] Urea nitrogen [Mass/volume] in Serum or Plasma 8 mg/dL 6-20 [facility] Osmolality of Serum or Plasma by calculation 286 mosm/kg 275-300 [facility] Creatinine/Urea nitrogen [Mass Ratio] in Serum or Plasma 9 [facility] Bicarbonate [Moles/volume] in Serum 22 mmol/L 22-29 [facility] Alanine aminotransferase [Enzymatic activity/volume] in Seru m or Plasma 22 U/L <41 [facility] Anion gap 3 in Serum or Plasma 11 mmol/L 8-15 [facility] Glomerular filtration rate/1.73 sq M pre dicted among non-blacks [Volume Rate/Area] in Serum or Plasma by Creatinine-based formula (MDRD) >6 0 [facility] Glomerular filtration rate/1.73 sq M pre dicted among blacks [Volume Rate/Area] in Serum or Plasma by Creatinine-based formula (MDRD) >60 [facility] ID Date Data Source [id number] 04/09/2020 08:42:50 PM [facility] Name Value Range Interpretation Code Description Data Adriana rce(s) Supporting Document(s) Thyrotropin [Units/volume] in Serum or Plasma 2.340 u[IU]/mL 0.270-4. 200 [facility] ID Date Data Source [id number] 04/09/2020 08:26:10 PM [facility] Name Value Range Interpretation Code Description Data Adriana rce(s) Supporting Document(s) Hemoglobin A1c/Hemoglobin.total in Blood by HPLC 5.6 % 4.0-6.0 [facility] (NOTE)<5.7% Average risk of diabetes (ADA)5.7-6.4% Increased risk of diabetes(ADA)>/= 6.5% Diagnostic for diabetes(ADA) Glucose mean value [Mass/volume] in Blood Estimated fr om glycated hemoglobin 114 mg/dL <126 [facility] ID Date Data Source [id number] 04/09/2020 02:47:00 PM EST [facility] NOT DETECTEDNOT DETECTED{ PROC EDURAL CONTROL VALID KIT LOT # _[id number] 04/09/207.DW . KIT EXP DATE _[id number] 04/09/20.DW . NORMAL RANGE IS NOT DETECTEDNEGATIVE [...] rce(s) Supporting Document(s) ID Date Data Source [id number] 04/14/2020 06:06:00 PM EST [facility] [id number] Name Value Range Interpretation Code Description Data Adriana rce(s) Supporting Document(s) Bacteria identified in Blood by Culture [facility] NO GROWTH AFTER 5 DAYS ID Date Data Source [id number] 04/14/2020 08:04:00 AM EST [facility] [id number] Name Value Range Interpretation Code Description Data Adriana rce(s) Supporting Document(s) TRIMETHOPRIM/SULFAMETHOXAZOLE <0.5/9.5 Mejia sceptible. Indicates for microbiology susceptibilities only. [facility] Amoxicillin+Clavulanate [Susceptibility] by Minimum inhibitory concentration (CHRIS) <4/2 Susceptible. Indicates for microbiology s usceptibilities only. [facility] Ampicillin [Susceptibility] by Minimum inhibitory concentration (CHRIS) <2 Resistant. Indicates for microbiology susceptibilities only. [facility] Ampicillin+Sulbactam [Susceptibility] by Minimum inhib itory concentration (CHRIS) <8/4 Susceptible. Indicates for microbiology suscepti bilities only. [facility] Cefazolin [Susceptibility] by Minimum inhibitory concentration ( CHRIS) <4 Susceptible. Indicates for microbiology susceptibilities only. [facility] Ciprofloxacin [Susceptibility] by Minimum inhibitory concentrati on (CHRIS) <1 Susceptible. Indicates for microbiology susceptibilities only. [facility] Clindamycin [Susceptibility] by Minimum inhibitory concentration (CHRIS) >4 Resistant. Indicates for microbiology susceptibilities only. [facility] Erythromycin [Susceptibility] by Minimum inhibitory concentratio n (CHRIS) >4 Resistant. Indicates for microbiology susceptibilities only. [facility] Gentamicin [Susceptibility] by Minimum inhibitory concentration (CHRIS) <4 Susceptible. Indicates for microbiology susceptibilities only. [facility] Oxacillin [Susceptibility] by Minimum inhibitory concentration ( CHRIS) <0.25 Susceptible. Indicates for microbiology susceptibilities only. [facility] Penicillin [Susceptibility] by Minimum inhibitory concentration (CHRIS) >8 Resistant. Indicates for microbiology susceptibilities only. [facility] Tetracycline [Susceptibility] by Minimum inhibitory concentratio n (CHRIS) <4 Susceptible. Indicates for microbiology susceptibilities only. [facility] Vancomycin [Susceptibility] by Minimum inhibitory concentration (CHRIS) 1 Susceptible. Indicates for microbiology susceptibilities only. [facility] Levofloxacin [Susceptibility] by Minimum inhibitory concentratio n (CHRIS) <1 Susceptible. Indicates for microbiology susceptibilities only. [facility] Moxifloxacin [Susceptibility] by Minimum inhibitory concentratio n (CHRIS) <0.5 Susceptible. Indicates for microbiology susceptibilities only. [facility] ID Date Data Source [id number] 04/19/2020 09:32:00 AM EDT [facility] Name Value Range Interpretation Code Description Data Adriana rce(s) Supporting Document(s) CULTURE BLOOD [facility] spital _CULTURE BLOOD_ TEST PERFORM ED AT [address] [address] CLIA# [id number] SEE SCANNED REPORT{ PRELIM ID Date Data Source [id number] 04/09/2020 02:12:00 PM EST [facility] Name Value Range Interpretation Code Description Data Adriana rce(s) Supporting Document(s) COMPREHENSIVE METABOLIC PANEL [facility] COMPREHENSIVE METABOLIC PANEL Sodium [Moles/volume] in Serum or Plasma 133 mEq/L 134 - 153 L [facility] Potassium [Moles/volume] in Serum or Plasma 4.4 mEq/L 3.6 - 5.0 [facility] Chloride [Moles/volume] in Serum or Plasma 99 mEq/L 98 - 107 [facility] Carbon dioxide, total [Moles/volume] in Serum or Plasma 23 MEQ/L 22 - 30 [facility] Glucose [Mass/volume] in Serum or Plasma 89 MG/DL 70 - 99 [facility] BUN 10 MG/DL 7 - 21 [facility] Creatinine [Mass/volume] in Serum or Plasma 0.9 MG/DL 0.7 - 1.5 [facility] BUN/CREAT 11 8 - 27 [facility] Protein [Mass/volume] in Serum or Plasma 7.7 G/DL 6.3 - 8.2 [facility] Albumin [Mass/volume] in Serum or Plasma 5.0 G/DL 3.9 - 5.0 [facility] Globulin [Mass/volume] in Serum by calculation 2.7 GM/DL 2.4 - 3.2 [facility] A/G RATIO 1.9 0.8 - 2.0 [facility] Calcium [Mass/volume] in Serum or Plasma 9.8 MG/DL 8.4 - 10.2 [facility] Bilirubin.total [Mass/volume] in Serum or Plasma <0.7 MG/DL 0.2 - 1.3 [facility] Alkaline phosphatase [Enzymatic activity/volume] in Serum or Plasma 79 U/L 38 - 126 [facility] Aspartate aminotransferase [Enzymatic activity/volume] in Serum or Plasma 14 U/L 5 - 40 [facility] Alanine aminotransferase [Enzymatic activity/volume] in Seru m or Plasma 25 U/L 7 - 56 [facility] Anion gap 3 in Serum or Plasma 11.0 mmol/L 8.0 - 16.0 [facility] AGE 34 yrs [facility] al NON-AA GFR >60 mL/min [facility] ital AFR AMER GFR >60 mL/min [facility] spital Male GFR In terprentation [...] >32 mL/min Normal ID Date Data Source [id number] 04/09/2020 02:05:00 PM [facility] Name Value Range Interpretation Code Description Data Adriana rce(s) Supporting Document(s) Magnesium [Mass/volume] in Serum or Plasma 2.1 MG/DL 1.7 - 2.2 [facility] ID Date Data Source [id number] 04/09/2020 01:42:00 PM [facility] Name Value Range Interpretation Code Description Data Adriana rce(s) Supporting Document(s) Prothrombin time (PT) 12.7 SECONDS 11.0 - 15.5 [facility] INR in Platelet poor plasma by Coagulation assay 0.91 0.93 - 1. 23 L [facility] aPTT in Blood by Coagulation assay 28.5 SECONDS 24.8 - 36.7 [facility] \\BLDo\\INR INTERPRETATION\\BLDx\\ Therapeutic range for Coumadin and related oral anticoagulants. - International Normalized Ratio (INR): 2.0 - 3.0 for Venous Thrombosis, Pulmonary Embolus, Tissue heart valves, Acute CO Atrial Fibrillation, Valvular heart disease and recurrent Systemic Embolism. - International Normalized Ratio (INR): 2.5 - 3.5 for Mechanical Prosthetic valve. ID Date Data Source [id number] 04/09/2020 01:42:00 PM [facility] Name Value Range Interpretation Code Description Data Adriana rce(s) Supporting Document(s) Fibrinogen [Mass/volume] in Platelet poor plasma by Co agulation assay 285.0 mg/dL 179 - 506 [facility] ID Date Data Source [id number] 04/09/2020 12:59:00 PM [facility] Name Value Range Interpretation Code Description Data Adriana rce(s) Supporting Document(s) CBC W/AUTOMATED DIFF [facility] COMPLETE BLOOD COUNT Leukocytes [#/volume] in Blood by Automated count 8.9 10^3/uL 4.2 - 1 1.0 [facility] Erythrocytes [#/volume] in Blood by Automated count 5.30 10^6/uL 4. 50 - 6.30 [facility] Hemoglobin [Mass/volume] in Blood 16.4 g/dL 14.0 - 16.0 H [facility] Hematocrit [Volume Fraction] of Blood by Automated count 46.1 % 4 1.0 - 51.0 [facility] Erythrocyte mean corpuscular volume [Entitic volume] by Auto mated count 87.0 fL 80.0 - 94.0 [facility] Erythrocyte mean corpuscular hemoglobin [Entitic mass] by Automated count 30.9 pg 27.0 - 34.0 [facility] Erythrocyte mean corpuscular hemoglobin concentration [Mass/volume] by Automated count 35.6 g/dL 31.0 - 36.0 [facility] Erythrocyte distribution width [Ratio] by Automated count 12.6 % 11.5 - 14.8 [facility] Platelets [#/volume] in Blood by Automated count 458 10^3/uL 150 - 45 0 H [facility] Platelet mean volume [Entitic volume] in Blood by Automated count 9.2 fL 7.4 - 10.4 [facility] Neutrophils/100 leukocytes in Blood by Automated count 59.1 % 37. 0 - 80.0 [facility] Lymphocytes/100 leukocytes in Blood by Manual count 30.6 % 25.0 - 40.0 [facility] Monocytes/100 leukocytes in Blood by Automated count 7.8 % 3.0 - 8.0 [facility] Eosinophils/100 leukocytes in Blood by Automated count 1.6 % 0.0 - 7.0 [facility] Basophils/100 leukocytes in Blood by Automated count 0.6 % 0.0 - 2.0 [facility] %IG 0.3 % 0.0 - 0.0 H [facility] al %NRBC 0.0 % 0.0 - 0.0 [facility] al Neutrophils [#/volume] in Blood by Automated count 5.28 10^3/uL 2.00 - 6.90 [facility] Lymphocytes [#/volume] in Blood by Automated count 2.73 10^3/uL 0.60 - 3.40 [facility] Monocytes [#/volume] in Blood by Automated count 0.70 10^3/uL 0.00 - 0.90 [facility] Eosinophils [#/volume] in Blood by Automated count 0.14 10^3/uL 0.00 - 0.70 [facility] Basophils [#/volume] in Blood by Automated count 0.05 10^3/uL 0.00 - 0.20 [facility] #IG 0.03 10^3/uL 0.00 - 0.10 [facility] H ospital #NRBC 0.00 10^3/uL 0.00 - 0.00 [facility] ospital MANUAL DIFF NOT INDICATED [facility] RBC MORPH NOT INDICATED [facility] spital ID Date Data Source [id number] 04/09/2020 12:52:00 PM [facility] Name Value Range Interpretation Code Description Data Adriana rce(s) Supporting Document(s) pH of Serum or Plasma 7.47 7.32 - 7.[address] [facility] pCO2 V 33.7 mm/HG 38.0 - 51.0 L [facility] pital pO2 V 25.9 mm/HG 30.0 - 55.0 L [facility] Bicarbonate [Moles/volume] in Venous blood 24.0 meq/L 22.0 - 29.0 [facility] TCO2 V 25.1 meq/L 22.0 - 29.0 [facility] Base excess in Blood by calculation 1.1 -2.0 - 2.0 [facility] O2 SAT V 52.6 % 40.0 - 85.0 [facility] Hosp ital ID Date Data Source [id number] 04/11/2020 06:29:00 AM [facility] #[id number] CALLED TO MAYITO JOAQUIN AT 0630 ON 04/11/20 BY NEAL.RESULTS READ BACK.The [employer] BCID Panel is a qualitative multiplexednucleic acid-based [...] rce(s) Supporting Document(s) ID Date Data Source [id number] 04/11/2020 06:31:00 AM [facility] Name Value Range Interpretation Code Description Data [facility] rce(s) Supporting Document(s) CULTURE BLOOD [facility] spital _CULTURE BLOOD_ [place] [address] CLIA# [id number] SEE SCANNED REPORT{ PRELIM GROWTH OF STAPH SPECIES, PT TRANSFERRED ID Date Data Source [id number] 03/31/2020 12:33:00 PM [facility] [address] [place] [address] PHONE: [phone] FAX: [phone] Name .................. : KYLE Meyer Acct Number.................. : [id number] ROOM. ................. : TR-05 Number ................... : [id number] Stay type ............. : E/R Discharge Date......... ... : 03/29/20 Admit Date ......... : 03/29/20 Admit Phys .................... : IVAN KIRK Date of ....... : 1985 Family Phys ................... : ALEX KEANE Phone .................. : [phone] Age ................................ : 34 Film# .................. .:[id number] Sex ................................. : M Unsigned transcriptions are preliminary reports and do not represent a medical or legal document CT HEAD W/O CONTRAST [id number] COMPLETE:03/29/20 14:23 MADHAV 4855 Reason(s): L sided [...] By ALEXANDRA HOUSE MD , 03/31/20 14:01, [facility] Transcribe Initials: [facility], Transcribe Date: 03/31/20 12:33, Dictation Date: Page 1 of 2 [facility] [address] [place] [address] PHONE: [phone] FAX: [phone] Name .................. : KYLE Meyer Acct Number.................. : [id number] ROOM. ................. : TR-05 MR Number ................... : [id number] Stay type ............. : E/R Discharge Date......... ... : 03/29/20 Admit Date ......... : 03/29/20 Admit Phys .................... : IVAN KIRK Date of ....... : 1985 Family Phys ................... : ALEX KEANE Phone .................. : [phone] Age ................................ : 34 Film# .................. .:[id number] Sex ................................. : M Unsigned transcriptions are preliminary reports and do not represent a medical or legal document CT HEAD W/O CONTRAST [id number] COMPLETE:03/29/20 14:23 MADHAV 4855 Reason(s): L sided UE numbness/double vision Copy for: MYRON Wolf via fax Copy for: EMERGENCY DEPT via modem Copy for: 710 MED REC DISCHARGED Page 2 of 2 Name Value Range Interpretation Code Description Data Adriana rce(s) Supporting Document(s) ID Date Data Source [id number] 03/30/2020 06:35:00 PM EST [facility] [address] [place] [address] PHONE: [phone] FAX: [phone] Name .................. : KYLE Meyer Acct Number.................. : [id number] ROOM. ................. : TR-05 Number ................... : [id number] Stay type ............. : E/R Discharge Date......... ... : 03/29/20 Admit Date ......... : 03/29/20 Admit Phys .................... : IVAN KIRK Date of ....... : 1985 Family Phys ................... : JOHNSON DIYA Phone .................. : [phone] Age ................................ : 34 Film# .................. .:[id number] Sex ................................. : M Unsigned transcriptions are preliminary reports and do not represent a medical or legal document CT CTA HEAD W CONTRAST INC PP [id number] COMPLETE:03/29/20 14:23 MADHAV 6106 Reason(s): L sided UE numbness double vision [...] are widely patent. There is an incomplete alatna of Potter with an absent left posterior [...] By Maninder Luis M.D. , 03/30/20 18:35, [facility] Transcribe Initials: MELANIE , Transcribe Date: 03/29/20 19:16, Dictation Date: Page 1 of 2 [place] [address] PHONE: [phone] FAX: [phone] Name .................. : KYLE MCNEIL Betsy Acct Number.................. : [id number] ROOM. ................. : TR-05 Number ................... : [id number] Stay type ............. : E/R Discharge Date......... ... : 03/29/20 Admit Date .... ..... : 03/29/20 Admit Phys .................... : IVAN KIRK Date of ....... : 1985 Family Phys ................... : ALEX KEANE Phone .................. : [phone] Age ................................ : 34 Film# .................. .:[id number] Sex ................................. : M Unsigned transcriptions are preliminary reports and do not represent a medical or legal document CT CTA HEAD W CONTRAST INC PP [id number] COMPLETE:03/29/20 14:23 MADHAV 4856 Reason(s): L sided UE numbness double vision Copy for: MYRON Wolf via fax Copy for: EMERGENCY DEPT via modem Copy for: 710 MED REC DISCHARGED Page 2 of 2 Name Value Range Interpretation Code Description Data Adriana rce(s) Supporting Document(s) ID Date Data Source [id number] 03/30/2020 06:34:00 PM EST [facility] [address] [place] [address] PHONE: [phone] FAX: [phone] Name .................. : KYLE Meyer Acct Number.................. : [id number] ROOM. ................. : TR-05 Number ................... : [id number] Stay type ............. : E/R Discharge Date......... ... : 03/29/20 Admit Date ......... : 03/29/20 Admit Phys .................... : IVAN KIRK Date of ....... : 1985 Family Phys ................... : ALEX WANGI Phone .................. : [phone] Age ................................ : 34 Film# .................. .:[id number] Sex ................................. : M Unsigned transcriptions are preliminary reports and do not represent a medical or legal document CT CTA NECK W CONT INC PP [id number] COMPLETE:03/29/20 14:23 MADHAV 4857 Reason(s): L sided [...] [address] 1 of 2 [place] [address] PHONE: [phone] FAX: [phone] Name .................. : KYLE Meyer Acct Number.................. : [id number] ROOM. ................. : TR-05 MR Number ................... : [id number] Stay type ............. : E/R Discharge Date......... ... : 03/29/20 Admit Date ..... .... : 03/29/20 Admit Phys .................... : IVAN KIRK Date of ....... : 1985 Family Phys ................... : ALEX KEANE Phone .................. : [phone] Age ................................ : 34 Film# .................. .:[id number] Sex ................................. : M Unsigned transcriptions are preliminary reports and do not represent a medical or legal document CT CTA NECK W CONT INC PP [id number] COMPLETE:03/29/20 14:23 MADHAV 4857 Reason(s): L sided [...] rce(s) Supporting Document(s) ID Date Data Source [id number] 03/30/2020 06:22:00 PM EST [facility] [address] [place] [address] PHONE: [phone] FAX: [phone] Name .................. : KYLE Meyer Acct Number.................. : [id number] ROOM. ................. : TR-05 MR Number ................... : [id number] Stay type ............. : E/R Discharge Date......... ... : 03/29/20 Admit Date ......... : 03/29/20 Admit Phys .................... : IVAN KIRK Date of ....... : 1985 Family Phys ................... : [employer] Phone .................. : [phone] Age ................................ : 34 Film# .................. .:[id number] Sex ................................. : M Unsigned transcriptions are preliminary reports and do not represent a medical or legal document CHEST PORTABLE [id number] COMPLETE:03/29/20 13:01 NAT 4858 Reason(s): L UE numbness/double vision AP PORTABLE CHEST X- RAY: FINDINGS: The cardiac and mediastinal silhouettes appear normal and the lungs are clear. The bones and soft tissues are normal. The upper abdomen is unremarkable. IMPRESSION: No acute disease identifiable. Electronically Reviewed and Signed By ALEXANDRA HOUSE MD , 03/30/20 18:22, [facility] Transcribe Initials: MELANIE , Transcribe Date: 03/29/20 17:13, Dictation Date: Copy for: MYRON Wolf via fax Copy for: EMERGENCY DEPT via modem Copy for: 710 MED REC DISCHARGED Page 1 of 1 Name Value Range Interpretation Code Description Data Adriana rce(s) Supporting Document(s) ID Date Data Source [id number] 03/30/2020 08:03:00 [place] [address] RESPIRATORY CARE REPORT ==== ---------NAME------- NUMBER SEX AGE ADMIT DISC. XRAY# F/C TYPEMURPHY DELONTE Meyer [id number] 03/29/20 03/29/20 [id number] X6B E/R DATE OF : 1985 M/R# [id number] #: [id number] TR-05 LOCATION: EMERGENCY DEPT EKG [id number] COMP LETE:03/29/20 14:05 ED 48057 PHYSICIAN: IVAN CARLSON Name Value Range Interpretation Code Description Data Adriana rce(s) Supporting Document(s) ID Date Data Source [id number] 03/29/2020 11:40:00 AM [facility] 1 OrderSheet [facility] Emergency Department [address] [place] [address] Phone #: ext- [phone] 03/29/2020 11:30 Patient: [...] sided UE numbness double vision 2 OrderSheet [facility] Emergency Department [address] [place] [address] Phone #: ext- [phone] 03/29/2020 11:30 [id number] Sex[facility] M : 1985 Age: 34yCT CTA [...] InitialedCardiac Monitor 12:03/29/2020 12:22 Daryn(continuous) Tonio CHAVEZ; linux systems engineer, [facility] [id number] Pressure 12:03/29/2020 12:22 Chaya CHAVEZ; linux systems engineer, [facility] [id number] 12:03/29/2020 12:22 Daryn CHAVEZ; linux systems engineer, [facility] [id number] stroke 12:03/29/2020 12:30 Nolan SBP<160, Tonio CHAVEZ; [place] RNDBP<90 mmHgIschemic stroke 12:21 03/29/2020 12:30 Nolan SBP<220, Tonio CHAVEZ; [place] SOSA 3 OrderSheet [facility] Emergency Department [address] [place] [address] Phone #: ext- [phone] 03/29/2020 11:30 Patient: DELONTE ZAMORANO Sex: M [...] rce(s) Supporting Document(s) ID Date Data Source [id number] 03/29/2020 11:40:00 AM EST [facility] 1 Medication Reconciliation Report [facility] Emergency Department [address] [place] [address] Phone #: ext- [phone] 03/29/2020 11:30 Patient: DELONTE ZAMORANO [facility]#: [id number] Sex: M : 1985 Age: 34yWeight: 99.9 [...] rce(s) Supporting Document(s) ID Date Data Source [id number] 03/29/2020 11:40:00 AM EST [facility] 1 Medication Administration Record [facility] Emergency Department [address] [place] [address] Phone #: ext- [phone] 03/29/2020 11:30 Patient: [...] rce(s) Supporting Document(s) ID Date Data Source [id number] 03/29/2020 11:40:00 AM EST [facility] 1 General Instructions [facility] Emergency Department [address] [place] [address] Phone #: ext- [phone] 03/29/2020 11:30 Patient: [...] ADDITIONAL INFORMATIONVertigo (Unknown Cause) 2 General Instructions [facility] Emergency Department [address] [place] [address] Phone #: ext- [phone] 03/29/2020 11:30 Patient: [...] as loose electrical cords 3 General Instructions [facility] Emergency Department [address] [place] [address] Phone #: ext- [phone] 03/29/2020 11:30 Patient: [...] nausea, vomiting, and dizziness, you may use phww-[id number] motion sickness pills. Ask your pharmacist for [...] speech or vision Loss of consciousness Seizure [id number] [employer]. [address] [place] [address], [place] [address]. All rights reserved. This information is not intended as asubstitute for professional medical care. Always follow your healthcare professional's instructions. You have been given the following additional information: Vertigo, Unspecified No strenuous activity until better. Rest at home today. Do not work for three days. 4 General Instructions [facility] Emergency Department [address] [place] [address] Phone #: ext- [phone] 03/29/2020 11:30 Patient: DELONTE ZAMORANO Sex: M : 1985 Age: 34y(Electronically signed by KATHY Garcia 03/29/2020 15:10) Name Value Range Interpretation Code Description Data Adriana rce(s) Supporting Document(s) ID Date Data Source [id number] 03/29/2020 11:40:00 AM EST [facility] 1 Clinical Report - Nurses [facility] Emergency Department [address] [place] [address] Phone #: ext- [phone] 03/29/2020 11:30 Patient: DELONTE ZAMORANO Sex: M [...] has had ear pain, nausea and troublewalking.Treatment SPINNING FRAME FIXER:None.SEPSIS SCREEN: SIRS SCREEN NEGATIVE. SEPSIS SCREEN NEGATIVE. [...] 12:10 03/29/20 2 Clinical Report - Nurses [facility] Emergency Department [address] [place] [address] Phone #: ext- [phone] 03/29/2020 11:30 Patient: [...] No skin integrity riskidentified. --11:39 03/29/20 Patrica Lpoez R.N.Interv entionsIdentification band on patient. To treatment room. --11:39 03/29/20 Patrica Lopez R.N.PHYSICAL ASSESSMENTAmbulatory to room. 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 Patient gowned. [...] and shown to the PA. --12:30 03/29/20 [facility] ER Tech1 12:36 03/29/2020 Started [...] Dimas R.N. 4 Clinical Report - Nurses [facility] Emergency Department [address] [place] [address] Phone #: ext- [phone] 03/29/2020 11:30 Patient: [...] Patient verbalized understanding. Written instructions provided in Mauritian. 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 He was discharged home and accompanied by [...] rce(s) Supporting Document(s) ID Date Data Source [id number] 03/29/2020 11:40:00 AM [facility] 1 Clinical Report - Physicians/Mid Levels [facility] Emergency Department [address] [place] [address] Phone #: ext- [phone] 03/29/2020 11:30 Patient: [...] discs. 2 Clinical Report - Physicians/Mid Levels [facility] Emergency Department [address] [place] [address] Phone #: ext- [phone] 03/29/2020 11:30 Patient: [...] marijuana. 3 Clinical Report - Physicians/Mid Levels [facility] Emergency Department [address] [place] [address] Phone #: [phone] ipq- [phone] 03/29/2020 11:30 Patient: DELONTE ZAMORANO Sex: M [...] results 4 Clinical Report - Physicians/Mid Levels [facility] Emergency Department [address] [place] [address] Phone #: ext- [phone] 03/29/2020 11:30 Patient: DELONTE ZAMORANO Sex: M [...] Male GFR Interprentation 20-49 yrs >60 mL/min Sizjni65-53 yrs >56 mL/min Normal 60-69 yrs >49 mL/min Normal 70-79yrs>42 mL/min Normal 80 and above >35 mL/min Normal Female GFRInterpretation 20-39 yrs >60 mL/min Normal 40-49 yrs >58 mL/min 5 Clinical Report - Physicians/Mid Levels [facility] Emergency Department [address] [place] [address] Phone #: ext- [phone] 03/29/2020 11:30 Patient: [...] Thrombosis, Pulmonary Embolus, Tissue heart valves, Acute CO Atrial Fibrillation, Valvular heart disease and recurrent Systemic Embolism. -International Normalized Ratio (INR): 2.5 - 3.5 for Mechanical Prosthetic valve. Troponin-T: (PORTIA: 03/29/2020 12:48) ( [facility] 13[facility]31[facility] Final results Test Result Flag Units (Reference) TROPONIN T <0.01 NG/ML (0.00 - 0.10) TROPONIN T0.1 ng/ml Recommended as the clinical threshold value forTroponin T. EKG: (PORTIA: 03/29/2020 12:21) ( MsgRcvd 03/29/2020 14:17) In [place] CT Head W/O Cont: (PORTIA: 03/29/2020 12:21) ( [facility]/29[facility] 14:23[facility] In [place] CT HEAD W/O CONTRAST Reason(s): L sided UE numbness/double vision TRANSPORTATION: S IV? O2? Oxygen?(No) Room: ED CT CTA HEAD W CONTRAST INC PP: (PORTIA: 03/29/2020 12:21) ( VagRcvd 03/29/2020 14:23) In [place] CT CTA HEAD W CONTRAST INC PP Reason(s): L sided UE numbness double vision TRANSPORTATION: S IV? IV?(Yes) O2? Oxygen?(No) Ro CT CTA NECK W CONT INC PP: (PORTIA: 03/29/2020 12:21) ( MsgRcvd 03/29/2020 14:23) In [place] CT CTA NECK W CONT INC PP Reason(s): L sided UE numbness/double vision TRANSPORTATION: S IV? IV?(Yes) O2? Oxygen?(No) Ro Chest Portable 1 View: (PORTIA: 03/29/2020 12:21) ( MsgRcvd 03/29/2020 13:01) In [place] CHEST PORTABLE Reason(s): L UE numbness/double vision TRANSPORTATION: P IV? O2? Oxygen?(No) Room: ED. 6 Clinical Report - Physicians/Mid Levels [facility] Emergency Department [address] [place] [address] Phone #: ext- [phone] 03/29/2020 11:30 Patient: [...] care. 7 Clinical Report - Physicians/Mid Levels [facility] Emergency Department [address] [place] [address] Phone #: ext- [phone] 03/29/2020 11:30 Patient: DELONTE ZAMORANO Sex: M : 1985 Age: 34y(Electronically signed by KATHY Garcia 03/29/2020 15:10) Name Value Range Interpretation Code Description Data Adriana rce(s) Supporting Document(s) ID Date Data Source [id number] 03/29/2020 01:30:00 PM EST [facility] Name Value Range Interpretation Code Description Data Adriana rce(s) Supporting Document(s) TROPONIN T <0.01 NG/ML 0.00 - 0.10 [facility] ospital TROPONIN T0.1 ng/ml Recommended as the c linical threshold value forTroponin T. ID Date Data Source [id number] 03/29/2020 01:26:00 PM [facility] Name Value Range Interpretation Code Description Data Adriana rce(s) Supporting Document(s) COMPREHENSIVE METABOLIC PANEL [facility] COMPREHENSIVE METABOLIC PANEL Sodium [Moles/volume] in Serum or Plasma 139 mEq/L 134 - 153 [facility] Potassium [Moles/volume] in Serum or Plasma 4.3 mEq/L 3.6 - 5.0 [facility] Chloride [Moles/volume] in Serum or Plasma 105 mEq/L 98 - 107 [facility] Carbon dioxide, total [Moles/volume] in Serum or Plasma 26 MEQ/L 22 - 30 [facility] Glucose [Mass/volume] in Serum or Plasma 95 MG/DL 70 - 99 [facility] BUN 11 MG/DL 7 - 21 [facility] Creatinine [Mass/volume] in Serum or Plasma 1.0 MG/DL 0.7 - 1.5 [facility] BUN/CREAT 11 8 - 27 [facility] Protein [Mass/volume] in Serum or Plasma 7.1 G/DL 6.3 - 8.2 [facility] Albumin [Mass/volume] in Serum or Plasma 4.3 G/DL 3.9 - 5.0 [facility] Globulin [Mass/volume] in Serum by calculation 2.8 GM/DL 2.4 - 3.2 [facility] A/G RATIO 1.5 0.8 - 2.0 [facility] Calcium [Mass/volume] in Serum or Plasma 9.1 MG/DL 8.4 - 10.2 [facility] Bilirubin.total [Mass/volume] in Serum or Plasma <0.7 MG/DL 0.2 - 1.3 [facility] Alkaline phosphatase [Enzymatic activity/volume] in Serum or Plasma 80 U/L 38 - 126 [facility] Aspartate aminotransferase [Enzymatic activity/volume] in Serum or Plasma 12 U/L 5 - 40 [facility] Alanine aminotransferase [Enzymatic activity/volume] in Seru m or Plasma 30 U/L 7 - 56 [facility] Anion gap 3 in Serum or Plasma 8.0 mmol/L 8.0 - 16.0 [facility] AGE 34 yrs [facility] al NON-AA GFR >60 mL/min [facility] ital AFR AMER GFR >60 mL/min [facility] Ho spital Male GFR In terprentation [...] >32 mL/min Normal ID Date Data Source [id number] 03/29/2020 01:23:00 PM EST [facility] Name Value Range Interpretation Code Description Data Adriana rce(s) Supporting Document(s) Prothrombin time (PT) 12.5 SECONDS 11.0 - 15.5 [facility] INR in Platelet poor plasma by Coagulation assay 0.89 0.93 - 1. 23 L [facility] aPTT in Blood by Coagulation assay 27.1 SECONDS 24.8 - 36.7 [facility] \\BLDo\\INR INTERPRETATION\\BLDx\\ Therapeutic range for Coumadin and related oral anticoagulants. - International Normalized Ratio (INR): 2.0 - 3.0 for Venous Thrombosis, Pulmonary Embolus, Tissue heart valves, Acute CO Atrial Fibrillation, Valvular heart disease and recurrent Systemic Embolism. - International Normalized Ratio (INR): 2.5 - 3.5 for Mechanical Prosthetic valve. ID Date Data Source [id number] 03/29/2020 01:13:00 PM EST [facility] Name Value Range Interpretation Code Description Data Adriana rce(s) Supporting Document(s) Lactate [Moles/volume] in Serum or Plasma 1.8 MMOL/L 0.2 - 2.2 [facility] ID Date Data Source [id number] 03/29/2020 01:09:00 PM [facility] Name Value Range Interpretation Code Description Data Adriana rce(s) Supporting Document(s) CBC W/AUTOMATED DIFF [facility] COMPLETE BLOOD COUNT Leukocytes [#/volume] in Blood by Automated count 9.3 10^3/uL 4.2 - 1 1.0 [facility] Erythrocytes [#/volume] in Blood by Automated count 4.80 10^6/uL 4. 50 - 6.30 [facility] Hemoglobin [Mass/volume] in Blood 14.8 g/dL 14.0 - 16.0 [facility] Hematocrit [Volume Fraction] of Blood by Automated count 41.4 % 4 1.0 - 51.0 [facility] Erythrocyte mean corpuscular volume [Entitic volume] by Auto mated count 86.3 fL 80.0 - 94.0 [facility] Erythrocyte mean corpuscular hemoglobin [Entitic mass] by Automated count 30.8 pg 27.0 - 34.0 [facility] Erythrocyte mean corpuscular hemoglobin concentration [Mass/volume] by Automated count 35.7 g/dL 31.0 - 36.0 [facility] Erythrocyte distribution width [Ratio] by Automated count 12.4 % 11.5 - 14.8 [facility] Platelets [#/volume] in Blood by Automated count 447 10^3/uL 150 - 45 0 [facility] Platelet mean volume [Entitic volume] in Blood by Automated count 9.0 fL 7.4 - 10.4 [facility] Neutrophils/100 leukocytes in Blood by Automated count 64.6 % 37. 0 - 80.0 [facility] Lymphocytes/100 leukocytes in Blood by Manual count 23.7 % 25.0 - 40.0 L [facility] Monocytes/100 leukocytes in Blood by Automated count 9.0 % 3.0 - 8.0 H [facility] Eosinophils/100 leukocytes in Blood by Automated count 1.7 % 0.0 - 7.0 [facility] Basophils/100 leukocytes in Blood by Automated count 0.7 % 0.0 - 2.0 [facility] %IG 0.3 % 0.0 - 0.0 [facility] % 0.0 - 0.0 [facility] al Neutrophils [#/volume] in Blood by Automated count 6.03 10^3/uL 2.00 - 6.90 [facility] Lymphocytes [#/volume] in Blood by Automated count 2.21 10^3/uL 0.60 - 3.40 [facility] Monocytes [#/volume] in Blood by Automated count 0.84 10^3/uL 0.00 - 0.90 [facility] Eosinophils [#/volume] in Blood by Automated count 0.16 10^3/uL 0.00 - 0.70 [facility] Basophils [#/volume] in Blood by Automated count 0.07 10^3/uL 0.00 - 0.20 [facility] #IG 0.03 10^3/uL 0.00 - 0.10 [facility] #NRBC 0.00 10^3/uL 0.00 - 0.00 [facility] MANUAL DIFF NOT INDICATED [facility] RBC MORPH NOT INDICATED [facility] ID Date Data Source [id number] 01/23/2020 06:09:00 AM EST [facility]) Name Value Range Interpretation Code Description Data Adriana rce(s) Supporting Document(s) glucose, fasting 87 mg/dL 70-100 Glucose, Fasting AT [facility]) creatinine for GFR 1.02 mg/dL 0.70-1.30 Creatinine for GF R [facility]) blood urea nitrogen 8 mg/dL 7-18 Blood Urea Nitro gen ANACONDA ([facility]) glomerular filtration rate > 60.0 >60 Glomerula r Filtration Rate ANACONDA ([facility]) sodium level 140 mEq/L 136-145 Sodium Level ANACONDA ([facility]) potassium serum 3.8 mEq/L 3.5-5.1 [facility] chloride level 107 mEq/L 98-107 Chloride Level ANACONDA ([facility]) carbon dioxide level 25 mEq/L 21-32 Carbon Dioxide Level ANACONDA ([facility]) calcium level 8.3 mg/dL 8.5-10.1 Below low normal Calcium Level AT [facility]) anion gap 8 mEq/L 8-16 Anion Gap ANACONDA ([facility]) ID Date Data Source [id number] 01/23/2020 06:09:00 AM EST [facility]) Name Value Range Interpretation Code Description Data Adriana rce(s) Supporting Document(s) red blood count 4.60 10 4.30-6.10 [facility] white blood count 6.1 10 4.0-10.0 White Blood Count [facility]) hemoglobin 14.0 g/dL 13.5-17.5 Hemoglobin MARJORIE ([facility]) hematocrit 40.2 % 42.0-52.0 Below low normal Hematocrit MARJORIE ( [facility]) mean corpuscular volume 87.4 fL 80.0-96.0 Mean Corpusc ular Volume MARJORIE ([facility]) mean corpuscular hemoglobin 30.4 pg 27.0-33.0 Mean Cor puscular Hemoglobin MARJORIE ([facility]) mean corpuscular HGB conc 34.8 g/dL 32.0-36.5 Mean Corpu scular HGB Conc ANACONDA ([facility]) red cell distribution width 12.3 % 11.5-14.5 Red Cell Distribution Width ANACONDA ([facility]) platelet count, automated 283 10 150-450 Platelet C ount, Automated ANACONDA ([facility]) nucleated red blood cell % 0.0 % 0-0 Nucleated Red Blood Cell % ANACONDA ([facility]) ID Date Data Source [id number] 01/23/2020 06:09:00 AM EST [facility]) Name Value Range Interpretation Code Description Data Adriana rce(s) Supporting Document(s) glucose, fasting 87 mg/dL 70-100 Glucose, Fasting AT [facility]) blood urea nitrogen 8 mg/dL 7-18 Blood Urea Nitro gen ANACONDA ([facility]) creatinine for GFR 1.02 mg/dL 0.70-1.30 Creatinine for GF R ANACONDA ([facility]) glomerular filtration rate > 60.0 >60 Glomerula r Filtration Rate MARJORIE ([facility]) chloride level 107 mEq/L 98-107 Chloride Level ANACONDA ([facility]) sodium level 140 mEq/L 136-145 Sodium Level MARJORIE ([facility]) potassium serum 3.8 mEq/L 3.5-5.1 Potassium Serum ATH NA ([facility]) anion gap 8 mEq/L 8-16 Anion Gap ANACONDA ([facility]) carbon dioxide level 25 mEq/L 21-32 Carbon Dioxide Level ANACONDA [facility]) calcium level 8.3 mg/dL 8.5-10.1 Below low normal Calcium Level AT [facility] ([facility]) ID Date Data Source [id number] 01/23/2020 06:09:00 AM EST MARJORIE ([facility]) Name Value Range Interpretation Code Description Data Adriana rce(s) Supporting Document(s) white blood count 6.1 10 4.0-10.0 White Blood Count MARJORIE ([facility]) hemoglobin 14.0 g/dL 13.5-17.5 Hemoglobin MARJORIE ([facility]) red blood count 4.60 10 4.30-6.10 Red Blood Count ATHE ([facility]) hematocrit 40.2 % 42.0-52.0 Below low normal Hematocrit ANACONDA ( [facility]) mean corpuscular volume 87.4 fL 80.0-96.0 Mean Corpusc ular Volume ANACONDA ([facility]) mean corpuscular HGB conc 34.8 g/dL 32.0-36.5 Mean Corpu scular HGB Conc ANACONDA ([facility]) mean corpuscular hemoglobin 30.4 pg 27.0-33.0 Mean Cor puscular Hemoglobin ANACONDA ([facility]) red cell distribution width 12.3 % 11.5-14.5 Red Cell Distribution Width ANACONDA ([facility]) platelet count, automated 283 10 150-450 Platelet C ount, Automated ANACONDA ([facility]) nucleated red blood cell % 0.0 % 0-0 Nucleated Red Blood Cell % ANACONDA ([facility]) ID Date Data Source [id number] 01/23/2020 06:09:00 AM EST MARJORIE ([facility]) Name Value Range Interpretation Code Description Data Adriana rce(s) Supporting Document(s) glucose, fasting 87 mg/dL 70-100 Glucose, Fasting AT [facility] ([facility]) creatinine for GFR 1.02 mg/dL 0.70-1.30 Creatinine for GF R ANACONDA ([facility]) blood urea nitrogen 8 mg/dL 7-18 Blood Urea Nitro gen MARJORIE ([facility]) glomerular filtration rate > 60.0 >60 Glomerula r Filtration Rate MARJORIE ([facility]) sodium level 140 mEq/L 136-145 Sodium Level MARJORIE (No [facility]) potassium serum 3.8 mEq/L 3.5-5.1 Potassium Serum ATHE NA ([facility]) chloride level 107 mEq/L 98-107 Chloride Level MARJORIE ([facility]) carbon dioxide level 25 mEq/L 21-32 Carbon Dioxide Level MARJORIE ([facility]) anion gap 8 mEq/L 8-16 Anion Gap MARJORIE ([facility]) calcium level 8.3 mg/dL 8.5-10.1 Below low normal Calcium Level AT [facility]) ID Date Data Source [id number] 01/23/2020 06:09:00 AM EST [facility]) Name Value Range Interpretation Code Description Data Adriana rce(s) Supporting Document(s) white blood count 6.1 10 4.0-10.0 White Blood Count MARJORIE ([facility]) hemoglobin 14.0 g/dL 13.5-17.5 Hemoglobin MARJORIE ([facility]) red blood count 4.60 10 4.30-6.10 Red Blood Count ATHE ([facility]) mean corpuscular volume 87.4 fL 80.0-96.0 Mean Corpusc ular Volume MARJORIE ([facility]) hematocrit 40.2 % 42.0-52.0 Below low normal Hematocrit MARJORIE ( [facility]) mean corpuscular hemoglobin 30.4 pg 27.0-33.0 Mean Cor puscular Hemoglobin MARJORIE ([facility]) mean corpuscular HGB conc 34.8 g/dL 32.0-36.5 Mean Corpu scular HGB Conc MARJORIE ([facility]) red cell distribution width 12.3 % 11.5-14.5 Red Cell Distribution Width MARJORIE ([facility]) nucleated red blood cell % 0.0 % 0-0 Nucleated Red Blood Cell % MARJORIE ([facility]) platelet count, automated 283 10 150-450 Platelet C ount, Automated MARJORIE ([facility]) ID Date Data Source [id number] 01/23/2020 06:09:00 AM EST MARJORIE ([facility]) Name Value Range Interpretation Code Description Data Adriana rce(s) Supporting Document(s) blood urea nitrogen 8 mg/dL 7-18 Blood Urea Nitro gen MARJORIE ([facility]) glucose, fasting 87 mg/dL 70-100 Glucose, Fasting AT [facility]) creatinine for GFR 1.02 mg/dL 0.70-1.30 Creatinine for GF R MARJORIE ([facility]) glomerular filtration rate > 60.0 >60 Glomerula r Filtration Rate MARJORIE ([facility]) sodium level 140 mEq/L 136-145 Sodium Level MARJORIE (No [facility]) chloride level 107 mEq/L 98-107 Chloride Level ANACONDA ([facility]) potassium serum 3.8 mEq/L 3.5-5.1 Potassium Serum ATHE NA ([facility]) anion gap 8 mEq/L 8-16 Anion Gap MARJORIE ([facility]) calcium level 8.3 mg/dL 8.5-10.1 Below low normal Calcium Level AT [facility]) carbon dioxide level 25 mEq/L 21-32 Carbon Dioxide Level ANACONDA ([facility]) ID Date Data Source [id number] 01/23/2020 06:09:00 AM EST MARJORIE ([facility]) Name Value Range Interpretation Code Description Data Adriana rce(s) Supporting Document(s) white blood count 6.1 10 4.0-10.0 White Blood Count MARJORIE ([facility]) red blood count 4.60 10 4.30-6.10 Red Blood Count ATHE NA ([facility]) mean corpuscular volume 87.4 fL 80.0-96.0 Mean Corpusc ular Volume ANACONDA ([facility]) hemoglobin 14.0 g/dL 13.5-17.5 Hemoglobin ANACONDA ([facility]) hematocrit 40.2 % 42.0-52.0 Below low normal Hematocrit ANACONDA ( [facility]) mean corpuscular hemoglobin 30.4 pg 27.0-33.0 Mean Cor puscular Hemoglobin ANACONDA ([facility]) mean corpuscular HGB conc 34.8 g/dL 32.0-36.5 Mean Corpu scular HGB Conc ANACONDA ([facility]) nucleated red blood cell % 0.0 % 0-0 Nucleated Red Blood Cell % ANACONDA ([facility]) red cell distribution width 12.3 % 11.5-14.5 Red Cell Distribution Width ANACONDA ([facility]) platelet count, automated 283 10 150-450 Platelet C ount, Automated [facility]) ID Date Data Source [id number] 01/23/2020 06:09:00 AM EST [facility]) Name Value Range Interpretation Code Description Data Adriana rce(s) Supporting Document(s) glucose, fasting 87 mg/dL 70-100 Glucose, Fasting AT [facility]) blood urea nitrogen 8 mg/dL 7-18 Blood Urea Nitro gen [facility]) creatinine for GFR 1.02 mg/dL 0.70-1.30 Creatinine for GF R ANACONDA ([facility]) glomerular filtration rate > 60.0 >60 Glomerula r Filtration Rate ANACONDA ([facility]) sodium level 140 mEq/L 136-145 Sodium Level ANACONDA ([facility]) potassium serum 3.8 mEq/L 3.5-5.1 Potassium Serum ATH NA ([facility]) chloride level 107 mEq/L 98-107 Chloride Level ANACONDA ([facility]) carbon dioxide level 25 mEq/L 21-32 Carbon Dioxide Level [facility]) anion gap 8 mEq/L 8-16 Anion Gap ANACONDA ([facility]) calcium level 8.3 mg/dL 8.5-10.1 Below low normal Calcium Level AT [facility]) ID Date Data Source [id number] 01/23/2020 06:09:00 AM EST MARJORIE ([facility]) Name Value Range Interpretation Code Description Data Adriana rce(s) Supporting Document(s) white blood count 6.1 10 4.0-10.0 White Blood Count MARJORIE ([facility]) red blood count 4.60 10 4.30-6.10 Red Blood Count ATHE ([facility]) hemoglobin 14.0 g/dL 13.5-17.5 Hemoglobin MARJORIE ([facility]) hematocrit 40.2 % 42.0-52.0 Below low normal Hematocrit MARJORIE ( [facility]) mean corpuscular volume 87.4 fL 80.0-96.0 Mean Corpusc ular Volume MARJORIE ([facility]) mean corpuscular hemoglobin 30.4 pg 27.0-33.0 Mean Cor puscular Hemoglobin MARJORIE ([facility]) mean corpuscular HGB conc 34.8 g/dL 32.0-36.5 Mean Corpu scular HGB Conc MARJORIE ([facility]) red cell distribution width 12.3 % 11.5-14.5 Red Cell Distribution Width MARJORIE ([facility]) platelet count, automated 283 10 150-450 Platelet C ount, Automated MARJORIE ([facility]) nucleated red blood cell % 0.0 % 0-0 Nucleated Red Blood Cell % MARJORIE ([facility]) ID Date Data Source [id number] 01/22/2020 09:10:00 AM EST MARJORIE ([facility]) Name Value Range Interpretation Code Description Data Adriana rce(s) Supporting Document(s) summary final . Summary MARJORIE ([facility]) ID Date Data Source [id number] 01/22/2020 09:10:00 AM EST MARJORIE ([facility]) Name Value Range Interpretation Code Description Data Adriana rce(s) Supporting Document(s) pH,urine rfx 6.0 units 5.0-9.0 pH,urine Rfx MARJORIE (No [facility]) color, urine rfx yellow yellow Color, Urine Rfx AT NESHA ([facility]) appearance, urine rfx clear clear Appearance, Ur ine Rfx ANACONDA ([facility]) glucose, urine (UA) auto rfx negative negative Glucose , Urine (UA) Auto Rfx ANACONDA ([facility]) specific gravity ur auto rfx 1.002-1.035 Specif ic [place] Ur Auto Rfx MARJORIE ([facility]) protein, urine auto rfx negative negative Protein, Uri ne Auto Rfx ANACONDA ([facility]) bilirubin, urine auto rfx negative negative Bilirubin, Urine Auto Rfx ANACONDA ([facility]) urobilinogen, urine auto rfx 0.2 mg/dL 0.0-2.0 Urobili nogen, Urine Auto Rfx ANACONDA ([facility]) ketone, urine auto rfx negative negative Ketone, Urine Auto Rfx ANACONDA ([facility]) blood, urine blood rfx negative negative Blood, Urine Blood Rfx ANACONDA ([facility]) leukocyte esterase ur auto rfx negative negative Leukocyte Esterase Ur Auto Rfx ANACONDA ([facility]) nitrite, urine auto rfx negative negative Nitrite, Uri ne Auto Rfx ANACONDA ([facility]) RBC, urine auto rfx 0 /hpf 0-3 RBC, Urine Auto Rfx ANACONDA ([facility]) bacteria, urine auto rfx negative negative Bacteria, U rine Auto Rfx ANACONDA ([facility]) WBC, urine auto rfx 0 /hpf 0-3 WBC, Urine Auto Rfx ANACONDA ([facility]) squam epithelial cell ur aurfx 0 /hpf 0-6 Squam Epithelial Cell Ur Aurfx ANACONDA ([facility]) hyaline cast, urine auto rfx 0 /lpf 0-1 Hyaline Cast, Urine Auto Rfx [facility]) ID Date Data Source [id number] 01/22/2020 09:10:00 AM EST [facility]) Name Value Range Interpretation Code Description Data Adriana rce(s) Supporting Document(s) summary final . Summary MARJORIE ([facility]) ID Date Data Source [id number] 01/22/2020 09:10:00 AM EST MARJORIE ([facility]) Name Value Range Interpretation Code Description Data Adriana rce(s) Supporting Document(s) color, urine rfx yellow yellow Color, Urine Rfx AT NESHA ([facility]) appearance, urine rfx clear clear Appearance, Ur ine Rfx ANACONDA ([facility]) pH,urine rfx 6.0 units 5.0-9.0 pH,urine Rfx MARJORIE (No [facility]) specific gravity ur auto rfx 1.002-1.035 Specif ic [place] Ur Auto Rfx ANACONDA ([facility]) protein, urine auto rfx negative negative Protein, Uri ne Auto Rfx ANACONDA ([facility]) glucose, urine (UA) auto rfx negative negative Glucose , Urine (UA) Auto Rfx ANACONDA ([facility]) ketone, urine auto rfx negative negative Ketone, Urine Auto Rfx ANACONDA ([facility]) bilirubin, urine auto rfx negative negative Bilirubin, Urine Auto Rfx ANACONDA ([facility]) urobilinogen, urine auto rfx 0.2 mg/dL 0.0-2.0 Urobili nogen, Urine Auto Rfx ANACONDA ([facility]) leukocyte esterase ur auto rfx negative negative Leukocyte Esterase Ur Auto Rfx ANACONDA ([facility]) blood, urine blood rfx negative negative Blood, Urine Blood Rfx ANACONDA ([facility]) nitrite, urine auto rfx negative negative Nitrite, Uri ne Auto Rfx ANACONDA ([facility]) RBC, urine auto rfx 0 /hpf 0-3 RBC, Urine Auto Rfx MARJORIE ([facility]) WBC, urine auto rfx 0 /hpf 0-3 WBC, Urine Auto Rfx MARJORIE ([facility]) bacteria, urine auto rfx negative negative Bacteria, U rine Auto Rfx ANACONDA ([facility]) squam epithelial cell ur aurfx 0 /hpf 0-6 Squam Epithelial Cell Ur Aurfx MARJORIE ([facility]) hyaline cast, urine auto rfx 0 /lpf 0-1 Hyaline Cast, Urine Auto Rfx MARJORIE ([facility]) ID Date Data Source [id number] 01/22/2020 09:10:00 AM EST MARJ[place]IE ([facility]) Name Value Range Interpretation Code Description Data Adriana rce(s) Supporting Document(s) summary final . Summary MARJORIE ([facility]) ID Date Data Source [id number] 01/22/2020 09:10:00 AM EST MARJORIE ([facility]) Name Value Range Interpretation Code Description Data Adriana rce(s) Supporting Document(s) appearance, urine rfx clear clear Appearance, Ur ine Rfx ANACONDA ([facility]) color, urine rfx yellow yellow Color, Urine Rfx AT NESHA ([facility]) pH,urine rfx 6.0 units 5.0-9.0 pH,urine Rfx MARJORIE (No [facility]) protein, urine auto rfx negative negative Protein, Uri ne Auto Rfx ANACONDA ([facility]) specific gravity ur auto rfx 1.002-1.035 Specif ic [place] Ur Auto Rfx ANACONDA ([facility]) glucose, urine (UA) auto rfx negative negative Glucose , Urine (UA) Auto Rfx ANACONDA ([facility]) urobilinogen, urine auto rfx 0.2 mg/dL 0.0-2.0 Urobili nogen, Urine Auto Rfx ANACONDA ([facility]) ketone, urine auto rfx negative negative Ketone, Urine Auto Rfx ANACONDA ([facility]) bilirubin, urine auto rfx negative negative Bilirubin, Urine Auto Rfx ANACONDA ([facility]) blood, urine blood rfx negative negative Blood, Urine Blood Rfx ANACONDA ([facility]) nitrite, urine auto rfx negative negative Nitrite, Uri ne Auto Rfx ANACONDA ([facility]) leukocyte esterase ur auto rfx negative negative Leukocyte Esterase Ur Auto Rfx MARJORIE ([facility]) WBC, urine auto rfx 0 /hpf 0-3 WBC, Urine Auto Rfx MARJORIE ([facility]) RBC, urine auto rfx 0 /hpf 0-3 RBC, Urine Auto Rfx MARJORIE ([facility]) bacteria, urine auto rfx negative negative Bacteria, U rine Auto Rfx MARJORIE ([facility]) squam epithelial cell ur aurfx 0 /hpf 0-6 Squam Epithelial Cell Ur Aurfx MARJORIE ([facility]) hyaline cast, urine auto rfx 0 /lpf 0-1 Hyaline Cast, Urine Auto Rfx MARJORIE ([facility]) ID Date Data Source [id number] 01/22/2020 09:10:00 AM EST MARJORIE ([facility]) Name Value Range Interpretation Code Description Data Adriana rce(s) Supporting Document(s) summary final . Summary MARJORIE ([facility]) ID Date Data Source [id number] 01/22/2020 09:10:00 AM EST MARJORIE ([facility]) Name Value Range Interpretation Code Description Data Adriana rce(s) Supporting Document(s) color, urine rfx yellow yellow Color, Urine Rfx AT N[facility] ([facility]) appearance, urine rfx clear clear Appearance, Ur ine Rfx ANACONDA ([facility]) pH,urine rfx 6.0 units 5.0-9.0 pH,urine Rfx MARJORIE (No [facility]) protein, urine auto rfx negative negative Protein, Uri ne Auto Rfx ANACONDA ([facility]) specific gravity ur auto rfx 1.002-1.035 Specif ic [place] Ur Auto Rfx ANACONDA ([facility]) ketone, urine auto rfx negative negative Ketone, Urine Auto Rfx ANACONDA ([facility]) glucose, urine (UA) auto rfx negative negative Glucose , Urine (UA) Auto Rfx ANACONDA ([facility]) urobilinogen, urine auto rfx 0.2 mg/dL 0.0-2.0 Urobili nogen, Urine Auto Rfx MARJORIE ([facility]) leukocyte esterase ur auto rfx negative negative Leukocyte Esterase Ur Auto Rfx MARJORIE ([facility]) bilirubin, urine auto rfx negative negative Bilirubin, Urine Auto Rfx MARJORIE ([facility]) nitrite, urine auto rfx negative negative Nitrite, Uri ne Auto Rfx MARJORIE ([facility]) WBC, urine auto rfx 0 /hpf 0-3 WBC, Urine Auto Rfx MARJORIE ([facility]) RBC, urine auto rfx 0 /hpf 0-3 RBC, Urine Auto Rfx MARJORIE ([facility]) blood, urine blood rfx negative negative Blood, Urine Blood Rfx ANACONDA ([facility]) bacteria, urine auto rfx negative negative Bacteria, U rine Auto Rfx ANACONDA ([facility]) hyaline cast, urine auto rfx 0 /lpf 0-1 Hyaline Cast, Urine Auto Rfx ANACONDA ([facility]) squam epithelial cell ur aurfx 0 /hpf 0-6 Squam Epithelial Cell Ur Aurfx MARJORIE ([facility]) ID Date Data Source [id number] 01/22/2020 09:10:00 AM EST ANACONDA ([facility]) Name Value Range Interpretation Code Description Data Adriana rce(s) Supporting Document(s) summary final . Summary ANACONDA ([facility]) ID Date Data Source [id number] 01/22/2020 09:10:00 AM EST ANACONDA ([facility]) Name Value Range Interpretation Code Description Data Adriana rce(s) Supporting Document(s) appearance, urine rfx clear clear Appearance, Ur ine Rfx [facility] ([facility] [facility] color, urine rfx yellow yellow Color, Urine Rfx AT NESHA ([facility]) pH,urine rfx 6.0 units 5.0-9.0 pH,urine Rfx MARJORIE ([facility]) specific gravity ur auto rfx 1.002-1.035 Specif ic [place] Ur Auto Rfx MARJORIE ([facility]) protein, urine auto rfx negative negative Protein, Uri ne Auto Rfx MARJORIE ([facility]) glucose, urine (UA) auto rfx negative negative Glucose , Urine (UA) Auto Rfx MARJORIE ([facility]) ketone, urine auto rfx negative negative Ketone, Urine Auto Rfx MARJORIE ([facility]) urobilinogen, urine auto rfx 0.2 mg/dL 0.0-2.0 Urobili nogen, Urine Auto Rfx MARJORIE ([facility]) bilirubin, urine auto rfx negative negative Bilirubin, Urine Auto Rfx MARJORIE ([facility]) nitrite, urine auto rfx negative negative Nitrite, Uri ne Auto Rfx MARJORIE ([facility]) leukocyte esterase ur auto rfx negative negative Leukocyte Esterase Ur Auto Rfx ANACONDA ([facility]) WBC, urine auto rfx 0 /hpf 0-3 WBC, Urine Auto Rfx MARJORIE ([facility]) blood, urine blood rfx negative negative Blood, Urine Blood Rfx MARJORIE ([facility]) RBC, urine auto rfx 0 /hpf 0-3 RBC, Urine Auto Rfx MARJORIE ([facility]) bacteria, urine auto rfx negative negative Bacteria, U rine Auto Rfx MARJORIE ([facility]) squam epithelial cell ur aurfx 0 /hpf 0-6 Squam Epithelial Cell Ur Aurfx MARJORIE ([facility]) hyaline cast, urine auto rfx 0 /lpf 0-1 Hyaline Cast, Urine Auto Rfx MARJORIE ([facility]) ID Date Data Source [id number] 01/22/2020 07:58:00 AM EST MARJORIE ([facility]) Name Value Range Interpretation Code Description Data Dariana rce(s) Supporting Document(s) magnesium level 2.0 mg/dL 1.8-2.4 Magnesium Level ATHE ([facility]) ID Date Data Source [id number] 01/22/2020 07:58:00 AM EST MARJORIE ([facility]) Name Value Range Interpretation Code Description Data Adriana rce(s) Supporting Document(s) glucose, fasting 87 mg/dL 70-100 Glucose, Fasting AT [facility]) blood urea nitrogen 13 mg/dL 7-18 Blood Urea Nitro gen MARJORIE ([facility]) glomerular filtration rate > 60.0 >60 Glomerula r Filtration Rate ANACONDA ([facility]) creatinine for GFR 1.03 mg/dL 0.70-1.30 Creatinine for GF R ANACONDA ([facility]) sodium level 137 mEq/L 136-145 Sodium Level ANACONDA (No [facility]) chloride level 104 mEq/L 98-107 Chloride Level ANACONDA ([facility]) potassium serum 3.8 mEq/L 3.5-5.1 [facility] calcium level 8.3 mg/dL 8.5-10.1 Below low normal Calcium Level AT [facility]) anion gap 7 mEq/L 8-16 Below low normal Anion Gap ANACONDA ( [facility]) carbon dioxide level 26 mEq/L 21-32 Carbon Dioxide Level ANACONDA ([facility]) ID Date Data Source [id number] 01/22/2020 07:58:00 AM EST [facility]) Name Value Range Interpretation Code Description Data Adriana rce(s) Supporting Document(s) lactic acid sepsis protocol 1.4 mmol/L 0.4-2.0 Lactic A blayne Sepsis Protocol [facility]) ID Date Data Source [id number] 01/22/2020 07:58:00 AM EST [facility]) Name Value Range Interpretation Code Description Data Adriana rce(s) Supporting Document(s) white blood count 6.6 10 4.0-10.0 White Blood Count [facility]) hematocrit 39.9 % 42.0-52.0 Below low normal Hematocrit [facility]) hemoglobin 13.5 g/dL 13.5-17.5 Hemoglobin [facility]) red blood count 4.50 10 4.30-6.10 Red Blood Count ATHE NA ([facility]) mean corpuscular hemoglobin 30.0 pg 27.0-33.0 Mean Cor puscular Hemoglobin MARJORIE ([facility]) mean corpuscular volume 88.7 fL 80.0-96.0 Mean Corpusc ular Volume MARJORIE ([facility]) mean corpuscular HGB conc 33.8 g/dL 32.0-36.5 Mean Corpu scular HGB Conc MARJORIE ([facility]) platelet count, automated 280 10 150-450 Platelet C ount, Automated MARJORIE ([facility]) red cell distribution width 12.5 % 11.5-14.5 Red Cell Distribution Width MARJORIE ([facility]) nucleated red blood cell % 0.0 % 0-0 Nucleated Red Blood Cell % MARJORIE ([facility]) ID Date Data Source [id number] 01/22/2020 07:58:00 AM EST MARJORIE ([facility]) Name Value Range Interpretation Code Description Data Adriana rce(s) Supporting Document(s) magnesium level 2.0 mg/dL 1.8-2.4 Magnesium Level ATHE EDUARD ([facility]) ID Date Data Source [id number] 01/22/2020 07:58:00 AM EST ANACONDA ([facility]) Name Value Range Interpretation Code Description Data Adriana rce(s) Supporting Document(s) glucose, fasting 87 mg/dL 70-100 Glucose, Fasting AT [facility] ([facility]) creatinine for GFR 1.03 mg/dL 0.70-1.30 Creatinine for GF R MARJORIE ([facility]) blood urea nitrogen 13 mg/dL 7-18 Blood Urea Nitro gen MARJORIE ([facility]) sodium level 137 mEq/L 136-145 Sodium Level MARJORIE (No [facility]) glomerular filtration rate > 60.0 >60 Glomerula r Filtration Rate MARJORIE ([facility]) chloride level 104 mEq/L 98-107 Chloride Level ANACONDA ([facility]) carbon dioxide level 26 mEq/L 21-32 Carbon Dioxide Level MARJORIE ([facility]) potassium serum 3.8 mEq/L 3.5-5.1 Potassium Serum ATHE ([facility]) anion gap 7 mEq/L 8-16 Below low normal Anion Gap MARJORIE ( [facility]) calcium level 8.3 mg/dL 8.5-10.1 Below low normal Calcium Level AT NESHA ([facility]) ID Date Data Source [id number] 01/22/2020 07:58:00 AM EST ANACONDA ([facility]) Name Value Range Interpretation Code Description Data Adriana rce(s) Supporting Document(s) lactic acid sepsis protocol 1.4 mmol/L 0.4-2.0 Lactic A blayne Sepsis Protocol ANACONDA ([facility]) ID Date Data Source [id number] 01/22/2020 07:58:00 AM EST MARJORIE ([facility]) Name Value Range Interpretation Code Description Data Adriana rce(s) Supporting Document(s) red blood count 4.50 10 4.30-6.10 Red Blood Count ATHE ([facility]) white blood count 6.6 10 4.0-10.0 White Blood Count ANACONDA ([facility]) hematocrit 39.9 % 42.0-52.0 Below low normal Hematocrit MARJORIE ( [facility]) hemoglobin 13.5 g/dL 13.5-17.5 Hemoglobin MARJORIE ([facility]) mean corpuscular volume 88.7 fL 80.0-96.0 Mean Corpusc ular Volume MARJORIE ([facility]) mean corpuscular hemoglobin 30.0 pg 27.0-33.0 Mean Cor puscular Hemoglobin MARJORIE ([facility]) red cell distribution width 12.5 % 11.5-14.5 Red Cell Distribution Width MARJORIE ([facility]) mean corpuscular HGB conc 33.8 g/dL 32.0-36.5 Mean Corpu scular HGB Conc MARJORIE ([facility]) nucleated red blood cell % 0.0 % 0-0 Nucleated Red Blood Cell % MARJORIE ([facility]) platelet count, automated 280 10 150-450 Platelet C ount, Automated MARJORIE ([facility]) ID Date Data Source [id number] 01/22/2020 07:58:00 AM EST MARJORIE ([facility]) Name Value Range Interpretation Code Description Data Adriana rce(s) Supporting Document(s) magnesium level 2.0 mg/dL 1.8-2.4 Magnesium Level ATHE NA ([facility]) ID Date Data Source [id number] 01/22/2020 07:58:00 AM EST ANACONDA ([facility]) Name Value Range Interpretation Code Description Data Adriana rce(s) Supporting Document(s) glucose, fasting 87 mg/dL 70-100 Glucose, Fasting AT [facility]) blood urea nitrogen 13 mg/dL 7-18 Blood Urea Nitro gen ANACONDA ([facility]) creatinine for GFR 1.03 mg/dL 0.70-1.30 Creatinine for GF R ANACONDA ([facility]) sodium level 137 mEq/L 136-145 Sodium Level ANACONDA (No [facility]) glomerular filtration rate > 60.0 >60 Glomerula r Filtration Rate MARJORIE ([facility]) chloride level 104 mEq/L 98-107 Chloride Level ANACONDA ([facility]) potassium serum 3.8 mEq/L 3.5-5.1 Potassium Serum ATHE ([facility]) carbon dioxide level 26 mEq/L 21-32 Carbon Dioxide Level ANACONDA ([facility]) anion gap 7 mEq/L 8-16 Below low normal Anion Gap ANACONDA ( [facility]) calcium level 8.3 mg/dL 8.5-10.1 Below low normal Calcium Level AT [facility]) ID Date Data Source [id number] 01/22/2020 07:58:00 AM EST [facility]) Name Value Range Interpretation Code Description Data Adriana rce(s) Supporting Document(s) lactic acid sepsis protocol 1.4 mmol/L 0.4-2.0 Lactic A blayne Sepsis Protocol MARJORIE ([facility]) ID Date Data Source [id number] 01/22/2020 07:58:00 AM EST MARJORIE ([facility]) Name Value Range Interpretation Code Description Data Adriana rce(s) Supporting Document(s) white blood count 6.6 10 4.0-10.0 White Blood Count MARJORIE ([facility]) red blood count 4.50 10 4.30-6.10 Red Blood Count ATHE ([facility]) hemoglobin 13.5 g/dL 13.5-17.5 Hemoglobin MARJORIE ([facility]) mean corpuscular volume 88.7 fL 80.0-96.0 Mean Corpusc ular Volume MARJORIE ([facility]) hematocrit 39.9 % 42.0-52.0 Below low normal Hematocrit MARJORIE ( [facility]) mean corpuscular HGB conc 33.8 g/dL 32.0-36.5 Mean Corpu scular HGB Conc MAROJRIE ([facility]) mean corpuscular hemoglobin 30.0 pg 27.0-33.0 Mean Cor puscular Hemoglobin MARJORIE ([facility]) red cell distribution width 12.5 % 11.5-14.5 Red Cell Distribution Width MARJORIE ([facility]) platelet count, automated 280 10 150-450 Platelet C ount, Automated MARJORIE ([facility]) nucleated red blood cell % 0.0 % 0-0 Nucleated Red Blood Cell % MARJORIE ([facility]) ID Date Data Source [id number] 01/22/2020 07:58:00 AM EST MARJORIE ([facility]) Name Value Range Interpretation Code Description Data Adriana rce(s) Supporting Document(s) magnesium level 2.0 mg/dL 1.8-2.4 Magnesium Level ATHE NA ([facility]) ID Date Data Source [id number] 01/22/2020 07:58:00 AM EST ANACONDA ([facility]) Name Value Range Interpretation Code Description Data Adriana rce(s) Supporting Document(s) blood urea nitrogen 13 mg/dL 7-18 Blood Urea Nitro gen MARJORIE ([facility]) glucose, fasting 87 mg/dL 70-100 Glucose, Fasting AT [facility] ([facility]) creatinine for GFR 1.03 mg/dL 0.70-1.30 Creatinine for GF R ANACONDA ([facility]) glomerular filtration rate > 60.0 >60 Glomerula r Filtration Rate ANACONDA ([facility]) potassium serum 3.8 mEq/L 3.5-5.1 Potassium Serum ATH NA ([facility]) sodium level 137 mEq/L 136-145 Sodium Level MARJORIE (No [facility]) chloride level 104 mEq/L 98-107 Chloride Level ANACONDA ([facility]) anion gap 7 mEq/L 8-16 Below low normal Anion Gap ANACONDA ( [facility]) carbon dioxide level 26 mEq/L 21-32 Carbon Dioxide Level ANACONDA ([facility]) calcium level 8.3 mg/dL 8.5-10.1 Below low normal Calcium Level AT [facility]) ID Date Data Source [id number] 01/22/2020 07:58:00 AM EST ANACONDA ([facility]) Name Value Range Interpretation Code Description Data Adriana rce(s) Supporting Document(s) lactic acid sepsis protocol 1.4 mmol/L 0.4-2.0 Lactic A blayne Sepsis Protocol ANACONDA ([facility]) ID Date Data Source [id number] 01/22/2020 07:58:00 AM EST ANACONDA ([facility]) Name Value Range Interpretation Code Description Data Adriana rce(s) Supporting Document(s) white blood count 6.6 10 4.0-10.0 White Blood Count MARJORIE ([facility]) hemoglobin 13.5 g/dL 13.5-17.5 Hemoglobin ANACONDA ([facility]) hematocrit 39.9 % 42.0-52.0 Below low normal Hematocrit MARJORIE ( [facility]) red blood count 4.50 10 4.30-6.10 Red Blood Count ATHE ([facility]) mean corpuscular volume 88.7 fL 80.0-96.0 Mean Corpusc ular Volume MARJORIE ([facility]) mean corpuscular hemoglobin 30.0 pg 27.0-33.0 Mean Cor puscular Hemoglobin MARJORIE ([facility]) mean corpuscular HGB conc 33.8 g/dL 32.0-36.5 Mean Corpu scular HGB Conc MARJORIE ([facility]) red cell distribution width 12.5 % 11.5-14.5 Red Cell Distribution Width MARJORIE ([facility]) platelet count, automated 280 10 150-450 Platelet C ount, Automated MARJORIE ([facility]) nucleated red blood cell % 0.0 % 0-0 Nucleated Red Blood Cell % MARJORIE ([facility]) ID Date Data Source [id number] 01/22/2020 07:58:00 AM EST ANACONDA ([facility]) Name Value Range Interpretation Code Description Data Adriana rce(s) Supporting Document(s) magnesium level 2.0 mg/dL 1.8-2.4 Magnesium Level ATHE ([facility]) ID Date Data Source [id number] 01/22/2020 07:58:00 AM EST MARJORIE ([facility]) Name Value Range Interpretation Code Description Data Adriana rce(s) Supporting Document(s) glucose, fasting 87 mg/dL 70-100 Glucose, Fasting AT [facility] ([facility]) blood urea nitrogen 13 mg/dL 7-18 Blood Urea Nitro gen MARJORIE ([facility]) glomerular filtration rate > 60.0 >60 Glomerula r Filtration Rate MARJORIE ([facility]) sodium level 137 mEq/L 136-145 Sodium Level MARJORIE (No [facility]) creatinine for GFR 1.03 mg/dL 0.70-1.30 Creatinine for GF R MARJORIE ([facility]) chloride level 104 mEq/L 98-107 Chloride Level MARJORIE ([facility]) potassium serum 3.8 mEq/L 3.5-5.1 Potassium Serum ATHE NA ([facility]) carbon dioxide level 26 mEq/L 21-32 Carbon Dioxide Level MARJORIE ([facility]) anion gap 7 mEq/L 8-16 Below low normal Anion Gap MARJORIE ( [facility]) calcium level 8.3 mg/dL 8.5-10.1 Below low normal Calcium Level AT NESHA ([facility]) ID Date Data Source [id number] 01/22/2020 07:58:00 AM EST ANACONDA ([facility]) Name Value Range Interpretation Code Description Data Adriana rce(s) Supporting Document(s) lactic acid sepsis protocol 1.4 mmol/L 0.4-2.0 Lactic A blayne Sepsis Protocol ANACONDA ([facility]) ID Date Data Source [id number] 01/22/2020 07:58:00 AM EST ANACONDA ([facility]) Name Value Range Interpretation Code Description Data Adriana rce(s) Supporting Document(s) white blood count 6.6 10 4.0-10.0 White Blood Count MARJORIE ([facility]) red blood count 4.50 10 4.30-6.10 Red Blood Count ATHE ([facility]) hemoglobin 13.5 g/dL 13.5-17.5 Hemoglobin MARJORIE ([facility]) hematocrit 39.9 % 42.0-52.0 Below low normal Hematocrit MARJORIE ( [facility]) mean corpuscular volume 88.7 fL 80.0-96.0 Mean Corpusc ular Volume MARJORIE ([facility]) mean corpuscular HGB conc 33.8 g/dL 32.0-36.5 Mean Corpu scular HGB Conc MARJORIE ([facility]) mean corpuscular hemoglobin 30.0 pg 27.0-33.0 Mean Cor puscular Hemoglobin MARJORIE ([facility]) red cell distribution width 12.5 % 11.5-14.5 Red Cell Distribution Width MARJORIE ([facility]) platelet count, automated 280 10 150-450 Platelet C ount, Automated MARJORIE ([facility]) nucleated red blood cell % 0.0 % 0-0 Nucleated Red Blood Cell % MARJORIE ([facility]) ID Date Data Source [id number] 01/22/2020 07:06:00 AM EST MARJORIE ([facility]) Name Value Range Interpretation Code Description Data Adriana rce(s) Supporting Document(s) bedside glucose 93 mg/dL 70-105 Bedside Glucose ATHRoselia CHAPA ([facility]) ID Date Data Source [id number] 01/22/2020 07:06:00 AM EST MARJORIE ([facility]) Name Value Range Interpretation Code Description Data Adriana rce(s) Supporting Document(s) bedside glucose 93 mg/dL 70-105 Bedside Glucose ATHE NA ([facility]) ID Date Data Source [id number] 01/22/2020 07:06:00 AM EST MARJORIE ([facility]) Name Value Range Interpretation Code Description Data Adriana rce(s) Supporting Document(s) bedside glucose 93 mg/dL 70-105 Bedside Glucose ATHE NA ([facility]) ID Date Data Source [id number] 01/22/2020 07:06:00 AM EST MARJORIE ([facility]) Name Value Range Interpretation Code Description Data Adriana rce(s) Supporting Document(s) bedside glucose 93 mg/dL 70-105 Bedside Glucose ATHE NA ([facility]) ID Date Data Source [id number] 01/22/2020 07:06:00 AM EST MARJORIE ([facility]) Name Value Range Interpretation Code Description Data Adriana rce(s) Supporting Document(s) bedside glucose 93 mg/dL 70-105 Bedside Glucose ATHRoselia NA ([facility]) ID Date Data Source [id number] 01/21/2020 11:46:00 PM EST MARJORIE ([facility]) Name Value Range Interpretation Code Description Data Adriana rce(s) Supporting Document(s) lactic acid level, lactate 2.1 mmol/L 0.4-2.0 Above high nor mal Lactic Acid Level, Lactate MARJORIE ([facility]) ID Date Data Source [id number] 01/21/2020 11:46:00 PM EST MARJORIE ([facility]) Name Value Range Interpretation Code Description Data Adriana rce(s) Supporting Document(s) lactic acid level, lactate 2.1 mmol/L 0.4-2.0 Above high nor mal Lactic Acid Level, Lactate MARJORIE ([facility]) ID Date Data Source [id number] 01/21/2020 11:46:00 PM EST MARJORIE ([facility]) Name Value Range Interpretation Code Description Data Adriana rce(s) Supporting Document(s) lactic acid level, lactate 2.1 mmol/L 0.4-2.0 Above high nor mal Lactic Acid Level, Lactate MARJORIE ([facility]) ID Date Data Source [id number] 01/21/2020 11:46:00 PM EST MARJORIE ([facility]) Name Value Range Interpretation Code Description Data Adriana rce(s) Supporting Document(s) lactic acid level, lactate 2.1 mmol/L 0.4-2.0 Above high nor mal Lactic Acid Level, Lactate MARJORIE ([facility]) ID Date Data Source [id number] 01/21/2020 11:46:00 PM EST MARJORIE ([facility]) Name Value Range Interpretation Code Description Data Adriana rce(s) Supporting Document(s) lactic acid level, lactate 2.1 mmol/L 0.4-2.0 Above high nor mal Lactic Acid Level, Lactate MARJORIE ([facility]) ID Date Data Source [id number] 01/21/2020 09:03:00 PM EST MARJORIE ([facility]) Name Value Range Interpretation Code Description Data Adriana rce(s) Supporting Document(s) bedside glucose 88 mg/dL 70-105 Bedside Glucose ATHE NA ([facility]) ID Date Data Source [id number] 01/21/2020 09:03:00 PM EST MARJORIE ([facility]) Name Value Range Interpretation Code Description Data Adriana rce(s) Supporting Document(s) bedside glucose 88 mg/dL 70-105 Bedside Glucose ATHE NA ([facility]) ID Date Data Source [id number] 01/21/2020 09:03:00 PM EST MARJORIE ([facility]) Name Value Range Interpretation Code Description Data Adriana rce(s) Supporting Document(s) bedside glucose 88 mg/dL 70-105 Bedside Glucose ATHE NA ([facility]) ID Date Data Source [id number] 01/21/2020 09:03:00 PM EST MARJORIE ([facility]) Name Value Range Interpretation Code Description Data Adriana rce(s) Supporting Document(s) bedside glucose 88 mg/dL 70-105 Bedside Glucose ATHE NA ([facility]) ID Date Data Source [id number] 01/21/2020 09:03:00 PM EST MARJORIE ([facility]) Name Value Range Interpretation Code Description Data Adriana rce(s) Supporting Document(s) bedside glucose 88 mg/dL 70-105 Bedside Glucose ATHE NA ([facility]) ID Date Data Source [id number] 01/21/2020 07:04:00 PM EST MARJORIE ([facility]) Name Value Range Interpretation Code Description Data Adriana rce(s) Supporting Document(s) ID Date Data Source [id number] 01/21/2020 07:04:00 PM EST MARJORIE ([facility]) Name Value Range Interpretation Code Description Data Adriana rce(s) Supporting Document(s) ID Date Data Source [id number] 01/21/2020 07:04:00 PM EST MARJORIE ([facility]) Name Value Range Interpretation Code Description Data Adriana rce(s) Supporting Document(s) ID Date Data Source [id number] 01/21/2020 07:04:00 PM EST MARJORIE ([facility]) Name Value Range Interpretation Code Description Data Adriana rce(s) Supporting Document(s) ID Date Data Source [id number] 01/21/2020 07:04:00 PM EST MARJORIE ([facility]) Name Value Range Interpretation Code Description Data Adriana rce(s) Supporting Document(s) ID Date Data Source [id number] 01/21/2020 06:35:00 PM EST MARJORIE ([facility]) Name Value Range Interpretation Code Description Data Adriana rce(s) Supporting Document(s) ID Date Data Source [id number] 01/21/2020 06:35:00 PM EST MARJORIE ([facility]) Name Value Range Interpretation Code Description Data Adriana rce(s) Supporting Document(s) lactic acid sepsis protocol 3.0 mmol/L 0.4-2.0 Above high no rmal Lactic Acid Sepsis Protocol MARJORIE ([facility]) ID Date Data Source [id number] 01/21/2020 06:35:00 PM EST MARJORIE ([facility]) Name Value Range Interpretation Code Description Data Adriana rce(s) Supporting Document(s) triglycerides level 113 mg/dL <150 Triglycerides Le osmar MARJORIE ([facility]) cholesterol level 205 mg/dL <200 Above high normal Cholesterol Level MARJORIE ([facility]) Cholesterol in LDL [Mass/volume] in Serum or Plasma 118 mg/dL <100 Above high normal LDL Cholesterol MARJORIE ([facility]) non-HDL-C 141 mg/dL Non-hdl-c MARJORIE ([facility]) cholesterol risk ratio <5 Cholesterol R isk Ratio MARJORIE ([facility]) HDL cholesterol 64 mg/dL >40 HDL Cholesterol ATHE NA ([facility]) ID Date Data Source [id number] 01/21/2020 06:35:00 PM EST MARJORIE ([facility]) Name Value Range Interpretation Code Description Data Adriana rce(s) Supporting Document(s) Hemoglobin A1c/Hemoglobin.total in Blood 5.5 % Hemoglobin a1C MARJORIE ([facility]) estimated average glucose 111 mg/dL 60-110 Above high norm al Estimated Average Glucose MARJORIE ([facility]) ID Date Data Source [id number] 01/21/2020 06:35:00 PM EST MARJORIE ([facility]) Name Value Range Interpretation Code Description Data Adriana rce(s) Supporting Document(s) ID Date Data Source [id number] 01/21/2020 06:35:00 PM EST MARJORIE ([facility]) Name Value Range Interpretation Code Description Data Adriana rce(s) Supporting Document(s) lactic acid sepsis protocol 3.0 mmol/L 0.4-2.0 Above high no rmal Lactic Acid Sepsis Protocol MARJORIE ([facility]) ID Date Data Source [id number] 01/21/2020 06:35:00 PM EST MARJORIE ([facility]) Name Value Range Interpretation Code Description Data Adriana rce(s) Supporting Document(s) triglycerides level 113 mg/dL <150 Triglycerides Le osmar MARJORIE ([facility]) Cholesterol in LDL [Mass/volume] in Serum or Plasma 118 mg/dL <100 Above high normal LDL Cholesterol MARJORIE ([facility]) HDL cholesterol 64 mg/dL >40 HDL Cholesterol ATHE NA ([facility]) non-HDL-C 141 mg/dL Non-hdl-c MARJORIE ([facility]) cholesterol level 205 mg/dL <200 Above high normal Cholesterol Level MARJORIE ([facility]) cholesterol risk ratio <5 Cholesterol R isk Ratio MARJORIE ([facility]) ID Date Data Source [id number] 01/21/2020 06:35:00 PM EST MARJORIE ([facility]) Name Value Range Interpretation Code Description Data Adriana rce(s) Supporting Document(s) Hemoglobin A1c/Hemoglobin.total in Blood 5.5 % Hemoglobin a1C MARJORIE ([facility]) estimated average glucose 111 mg/dL 60-110 Above high norm al Estimated Average Glucose MARJORIE ([facility]) ID Date Data Source [id number] 01/21/2020 06:35:00 PM EST MARJORIE ([facility]) Name Value Range Interpretation Code Description Data Adriana rce(s) Supporting Document(s) ID Date Data Source [id number] 01/21/2020 06:35:00 PM EST MARJORIE ([facility]) Name Value Range Interpretation Code Description Data Adriana rce(s) Supporting Document(s) lactic acid sepsis protocol 3.0 mmol/L 0.4-2.0 Above high no rmal Lactic Acid Sepsis Protocol MARJORIE ([facility]) ID Date Data Source [id number] 01/21/2020 06:35:00 [facility] Name Value Range Interpretation Code Description Data Adriana rce(s) Supporting Document(s) triglycerides level 113 mg/dL <150 Triglycerides Le osmar MARJORIE ([facility]) Cholesterol in LDL [Mass/volume] in Serum or Plasma 118 mg/dL <100 Above high normal LDL Cholesterol MARJORIE ([facility]) cholesterol level 205 mg/dL <200 Above high normal Cholesterol Level MARJORIE ([facility]) non-HDL-C 141 mg/dL Non-hdl-c MARJORIE ([facility]) HDL cholesterol 64 mg/dL >40 HDL Cholesterol ATHE NA ([facility]) cholesterol risk ratio <5 Cholesterol R isk Ratio MARJORIE ([facility]) ID Date Data Source [id number] 01/21/2020 06:35:00 PM EST MARJORIE ([facility]) Name Value Range Interpretation Code Description Data Adriana rce(s) Supporting Document(s) Hemoglobin A1c/Hemoglobin.total in Blood 5.5 % Hemoglobin a1C MARJORIE ([facility]) estimated average glucose 111 mg/dL 60-110 Above high norm al Estimated Average Glucose MARJORIE ([facility]) ID Date Data Source [id number] 01/21/2020 06:35:00 PM EST MARJORIE ([facility]) Name Value Range Interpretation Code Description Data Adriana rce(s) Supporting Document(s) ID Date Data Source [id number] 01/21/2020 06:35:00 PM EST MARJORIE ([facility]) Name Value Range Interpretation Code Description Data Adriana rce(s) Supporting Document(s) lactic acid sepsis protocol 3.0 mmol/L 0.4-2.0 Above high no rmal Lactic Acid Sepsis Protocol MARJORIE ([facility]) ID Date Data Source [id number] 01/21/2020 06:35:00 PM EST MARJORIE ([facility]) Name Value Range Interpretation Code Description Data Adriana rce(s) Supporting Document(s) triglycerides level 113 mg/dL <150 Triglycerides Le osmar MARJORIE ([facility]) Cholesterol in LDL [Mass/volume] in Serum or Plasma 118 mg/dL <100 Above high normal LDL Cholesterol MARJORIE ([facility]) non-HDL-C 141 mg/dL Non-hdl-c MARJORIE ([facility]) cholesterol level 205 mg/dL <200 Above high normal Cholesterol Level MARJORIE ([facility]) HDL cholesterol 64 mg/dL >40 HDL Cholesterol ATHE NA ([facility]) cholesterol risk ratio <5 Cholesterol R isk Ratio MARJORIE ([facility]) ID Date Data Source [id number] 01/21/2020 06:35:00 PM EST MARJORIE ([facility]) Name Value Range Interpretation Code Description Data Adriana rce(s) Supporting Document(s) estimated average glucose 111 mg/dL 60-110 Above high norm al Estimated Average Glucose MARJORIE ([facility]) Hemoglobin A1c/Hemoglobin.total in Blood 5.5 % Hemoglobin a1C MARJORIE ([facility]) ID Date Data Source [id number] 01/21/2020 06:35:00 PM EST MARJORIE ([facility]) Name Value Range Interpretation Code Description Data Adriana rce(s) Supporting Document(s) ID Date Data Source [id number] 01/21/2020 06:35:00 PM EST MARJORIE ([facility]) Name Value Range Interpretation Code Description Data Adriana rce(s) Supporting Document(s) lactic acid sepsis protocol 3.0 mmol/L 0.4-2.0 Above high no rmal Lactic Acid Sepsis Protocol MARJORIE ([facility]) ID Date Data Source [id number] 01/21/2020 06:35:00 PM EST MARJORIE ([facility]) Name Value Range Interpretation Code Description Data Adriana rce(s) Supporting Document(s) HDL cholesterol 64 mg/dL >40 HDL Cholesterol ATHE NA ([facility]) triglycerides level 113 mg/dL <150 Triglycerides Le osmar MARJORIE ([facility]) cholesterol level 205 mg/dL <200 Above high normal Cholesterol Level MARJORIE ([facility]) Cholesterol in LDL [Mass/volume] in Serum or Plasma 118 mg/dL <100 Above high normal LDL Cholesterol MARJORIE ([facility]) cholesterol risk ratio <5 Cholesterol R isk Ratio MARJORIE ([facility]) non-HDL-C 141 mg/dL Non-hdl-c MAJRORIE ([facility]) ID Date Data Source [id number] 01/21/2020 06:35:00 PM EST ANACONDA ([facility]) Name Value Range Interpretation Code Description Data Adriana rce(s) Supporting Document(s) estimated average glucose 111 mg/dL 60-110 Above high norm al Estimated Average Glucose MARJORIE ([facility]) Hemoglobin A1c/Hemoglobin.total in Blood 5.5 % Hemoglobin a1C ANACONDA ([facility]) ID Date Data Source [id number] 01/21/2020 04:39:00 PM EST ANACONDA ([facility]) Name Value Range Interpretation Code Description Data Adriana rce(s) Supporting Document(s) sars covid-19 amplification negative negative Sars Cov id-19 Amplification [facility]) ID Date Data Source [id number] 01/21/2020 04:39:00 PM EST ANACONDA ([facility]) Name Value Range Interpretation Code Description Data Adriana rce(s) Supporting Document(s) sars covid-19 amplification negative negative Sars Cov id-19 Amplification MARJORIE ([facility]) ID Date Data Source [id number] 01/21/2020 04:39:00 PM EST [facility]) Name Value Range Interpretation Code Description Data Adriana rce(s) Supporting Document(s) sars covid-19 amplification negative negative Sars Cov id-19 Amplification [facility]) ID Date Data Source [id number] 01/21/2020 04:39:00 PM EST MARJORIE ([facility]) Name Value Range Interpretation Code Description Data Adriana rce(s) Supporting Document(s) sars covid-19 amplification negative negative Sars Cov id-19 Amplification ANACONDA ([facility]) ID Date Data Source [id number] 01/21/2020 04:39:00 PM EST MARJORIE ([facility]) Name Value Range Interpretation Code Description Data Adriana rce(s) Supporting Document(s) sars covid-19 amplification negative negative Sars Cov id-19 Amplification [facility]) ID Date Data Source [id number] 01/21/2020 04:39:00 PM EST [facility] Name Value Range Interpretation Code Description Data Adriana rce(s) Supporting Document(s) SARS coronavirus 2 RNA [Presence] in Res piratory specimen by BINA with probe detection [facility] This lab was ordered by [facility] a nd reported by [facility]. ID Date Data Source [id number] 01/21/2020 02:10:00 PM EST [facility]) Name Value Range Interpretation Code Description Data Adriana rce(s) Supporting Document(s) lactic acid sepsis protocol 3.7 mmol/L 0.4-2.0 Above high no rmal Lactic Acid Sepsis Protocol [facility]) ID Date Data Source [id number] 01/21/2020 02:10:00 PM EST MARJORIE ([facility]) Name Value Range Interpretation Code Description Data Adriana rce(s) Supporting Document(s) lactic acid sepsis protocol 3.7 mmol/L 0.4-2.0 Above high no rmal Lactic Acid Sepsis Protocol [facility]) ID Date Data Source [id number] 01/21/2020 02:10:00 PM [facility] Name Value Range Interpretation Code Description Data Adriana rce(s) Supporting Document(s) lactic acid sepsis protocol 3.7 mmol/L 0.4-2.0 Above high no rmal Lactic Acid Sepsis Protocol MARJORIE ([facility]) ID Date Data Source [id number] 01/21/2020 02:10:00 PM EST MARJORIE ([facility]) Name Value Range Interpretation Code Description Data Adriana rce(s) Supporting Document(s) lactic acid sepsis protocol 3.7 mmol/L 0.4-2.0 Above high no rmal Lactic Acid Sepsis Protocol MARJORIE ([facility]) ID Date Data Source [id number] 01/21/2020 02:10:00 PM EST MARJORIE ([facility]) Name Value Range Interpretation Code Description Data Adriana rce(s) Supporting Document(s) lactic acid sepsis protocol 3.7 mmol/L 0.4-2.0 Above high no rmal Lactic Acid Sepsis Protocol MARJORIE ([facility]) ID Date Data Source [id number] 01/21/2020 02:09:00 PM EST MARJORIE ([facility]) Name Value Range Interpretation Code Description Data Adriana rce(s) Supporting Document(s) erythrocyte sedimentation rate 5 mm/HR 0-15 Eryth rocyte Sedimentation Rate MARJORIE ([facility]) ID Date Data Source [id number] 01/21/2020 02:09:00 PM EST MARJORIE ([facility]) Name Value Range Interpretation Code Description Data Adriana rce(s) Supporting Document(s) white blood count 9.1 10 4.0-10.0 White Blood Count MARJORIE ([facility]) hematocrit 45.6 % 42.0-52.0 Hematocrit MARJORIE ([facility]) hemoglobin 15.4 g/dL 13.5-17.5 Hemoglobin MARJORIE ([facility]) red blood count 5.30 10 4.30-6.10 Red Blood Count ATHE ([facility]) red cell distribution width 12.4 % 11.5-14.5 Red Cell Distribution Width MARJORIE ([facility]) mean corpuscular hemoglobin 29.1 pg 27.0-33.0 Mean Cor puscular Hemoglobin MARJORIE ([facility]) mean corpuscular HGB conc 33.8 g/dL 32.0-36.5 Mean Corpu scular HGB Conc MARJORIE ([facility]) mean corpuscular volume 86.0 fL 80.0-96.0 Mean Corpusc ular Volume MARJORIE ([facility]) platelet count, automated 378 10 150-450 Platelet C ount, Automated MARJORIE ([facility]) mono % 6.9 % 0.0-5.0 Above high normal [place] % MARJORIE ([facility]) neutrophils % 65.4 % 36.0-66.0 Neutrophils % MARJORIE ( [facility]) lymph % 25.8 % 24.0-44.0 Lymph % ANACONDA ([facility]) immature granulocyte % 0.4 % 0-3.0 Immature Gran ulocyte % MARJORIE ([facility]) baso % 0.5 % 0.0-1.0 Baso % MARJORIE ([facility]) eos % 1.0 % 0.0-3.0 Eos % MARJORIE ([facility]) nucleated red blood cell % 0.0 % 0-0 Nucleated Red Blood Cell % MARJORIE ([facility]) neutrophils # 6.0 10 1.5-8.5 Neutrophils # MARJORIE ( [facility]) lymph # 2.4 10 1.5-5.0 Lymph # MARJORIE ([facility]) mono # 0.6 10 0.0-0.8 [place] # MARJORIE ([facility]) eos # 0.1 10 0.0-0.5 Eos # MARJORIE ([facility]) baso # 0.1 10 0.0-0.2 Baso # MARJORIE ([facility]) ID Date Data Source [id number] 01/21/2020 02:09:00 PM EST MARJORIE ([facility]) Name Value Range Interpretation Code Description Data Adriana rce(s) Supporting Document(s) prothrombin time 12.9 seconds 12.5-14.3 Prothrombin Time MARJORIE ([facility]) INR Inr MARJORIE ([facility]) partial thromboplastin time 29.2 seconds 24.2-38.5 Partial Thromboplastin Time MARJORIE ([facility]) ID Date Data Source [id number] 01/21/2020 02:09:00 PM EST MARJORIE ([facility]) Name Value Range Interpretation Code Description Data Adriana rce(s) Supporting Document(s) C reactive protein quantitativ 0.30 mg/dL 0.00-0.30 C Reactive Protein Quantitativ MARJORIE ([facility]) ID Date Data Source [id number] 01/21/2020 02:09:00 PM EST MARJORIE ([facility]) Name Value Range Interpretation Code Description Data Adriana rce(s) Supporting Document(s) lipase 94 U/L 73-393 Lipase MARJORIE ([facility]) ID Date Data Source [id number] 01/21/2020 02:09:00 PM EST MARJORIE ([facility]) Name Value Range Interpretation Code Description Data Adriana rce(s) Supporting Document(s) blood urea nitrogen 15 mg/dL 7-18 Blood Urea Nitro gen MARJORIE ([facility]) glucose, fasting 113 mg/dL 70-100 Above high normal Glucose, Fas ting MARJORIE ([facility]) creatinine for GFR 1.05 mg/dL 0.70-1.30 Creatinine for GF R MARJORIE ([facility]) glomerular filtration rate > 60.0 >60 Glomerula r Filtration Rate MARJORIE ([facility]) sodium level 138 mEq/L 136-145 Sodium Level MARJORIE (No [facility]) potassium serum 4.9 mEq/L 3.5-5.1 Potassium Serum ATHE NA ([facility]) chloride level 103 mEq/L 98-107 Chloride Level MARJORIE ([facility]) carbon dioxide level 22 mEq/L 21-32 Carbon Dioxide Level MARJORIE ([facility]) calcium level 9.2 mg/dL 8.5-10.1 Calcium Level MARJORIE ( [facility]) anion gap 13 mEq/L 8-16 Anion Gap MARJORIE ([facility]) ID Date Data Source [id number] 01/21/2020 02:09:00 PM EST MARJORIE ([facility]) Name Value Range Interpretation Code Description Data Adriana rce(s) Supporting Document(s) alkaline phosphatase 105 U/L 45-117 Alkaline Phosph atase MARJORIE ([facility]) ALT/SGPT 38 U/L 12-78 ALT/SGPT MARJORIE ([facility]) AST/SGOT 10 U/L 7-37 AST/SGOT MARJORIE ([facility]) bilirubin,direct < 0.1 0.0-0.2 Bilirubin,direct [facility] ([facility]) total protein 7.6 gm/dL 6.4-8.2 Total Protein MARJORIE ( [facility]) bilirubin,total 0.3 mg/dL 0.2-1.0 Bilirubin,total ATHE [facility]) albumin 3.7 gm/dL 3.2-5.2 Albumin MARJORIE ([facility]) albumin/globulin ratio Albumin/globu karina Ratio MARJORIE ([facility]) ID Date Data Source [id number] 01/21/2020 02:09:00 PM EST MARJORIE ([facility]) Name Value Range Interpretation Code Description Data Adriana rce(s) Supporting Document(s) CPK creatine phosphokinase 85 U/L 39-308 CPK Creat ine Phosphokinase MARJORIE ([facility]) CK-mb value mass 2.2 NG/mL <3.6 CK-mb Value Mass AT [facility] ([facility]) troponin I < 0.02 < 0.10 Troponin I MARJORIE ([facility]) mb/CK relative index < or =4 mb/CK Relative Index MARJORIE ([facility]) ID Date Data Source [id number] 01/21/2020 02:09:00 PM EST MARJORIE ([facility]) Name Value Range Interpretation Code Description Data Adriana rce(s) Supporting Document(s) erythrocyte sedimentation rate 5 mm/HR 0-15 Eryth rocyte Sedimentation Rate MARJORIE ([facility]) ID Date Data Source [id number] 01/21/2020 02:09:00 PM EST MARJORIE ([facility]) Name Value Range Interpretation Code Description Data Adriana rce(s) Supporting Document(s) white blood count 9.1 10 4.0-10.0 White Blood Count MARJORIE ([facility]) hemoglobin 15.4 g/dL 13.5-17.5 Hemoglobin MARJORIE ([facility]) red blood count 5.30 10 4.30-6.10 Red Blood Count ATHE ([facility]) hematocrit 45.6 % 42.0-52.0 Hematocrit MARJORIE ([facility]) mean corpuscular hemoglobin 29.1 pg 27.0-33.0 Mean Cor puscular Hemoglobin MARJORIE ([facility]) mean corpuscular volume 86.0 fL 80.0-96.0 Mean Corpusc ular Volume MARJORIE ([facility]) mean corpuscular HGB conc 33.8 g/dL 32.0-36.5 Mean Corpu scular HGB Conc MARJORIE ([facility]) red cell distribution width 12.4 % 11.5-14.5 Red Cell Distribution Width MARJORIE ([facility]) platelet count, automated 378 10 150-450 Platelet C ount, Automated MARJORIE ([facility]) neutrophils % 65.4 % 36.0-66.0 Neutrophils % MARJORIE ( [facility]) baso % 0.5 % 0.0-1.0 Baso % MARJORIE ([facility]) eos % 1.0 % 0.0-3.0 Eos % MARJORIE ([facility]) mono % 6.9 % 0.0-5.0 Above high normal [place] % MARJORIE ([facility]) lymph % 25.8 % 24.0-44.0 Lymph % MARJORIE ([facility]) nucleated red blood cell % 0.0 % 0-0 Nucleated Red Blood Cell % MARJORIE ([facility]) neutrophils # 6.0 10 1.5-8.5 Neutrophils # MARJORIE ( [facility]) immature granulocyte % 0.4 % 0-3.0 Immature Gran ulocyte % MARJORIE ([facility]) lymph # 2.4 10 1.5-5.0 Lymph # MARJORIE ([facility]) mono # 0.6 10 0.0-0.8 [place] # MARJORIE ([facility]) eos # 0.1 10 0.0-0.5 Eos # MARJORIE ([facility]) baso # 0.1 10 0.0-0.2 Baso # MARJORIE ([facility]) ID Date Data Source [id number] 01/21/2020 02:09:00 PM EST MARJORIE ([facility]) Name Value Range Interpretation Code Description Data Adriana rce(s) Supporting Document(s) prothrombin time 12.9 seconds 12.5-14.3 Prothrombin Time MARJORIE ([facility]) partial thromboplastin time 29.2 seconds 24.2-38.5 Partial Thromboplastin Time MARJORIE ([facility]) INR Inr MARJORIE ([facility]) ID Date Data Source [id number] 01/21/2020 02:09:00 PM EST MARJORIE ([facility]) Name Value Range Interpretation Code Description Data Adriana rce(s) Supporting Document(s) C reactive protein quantitativ 0.30 mg/dL 0.00-0.30 C Reactive Protein Quantitativ ANACONDA ([facility]) ID Date Data Source [id number] 01/21/2020 02:09:00 PM EST MARJORIE ([facility]) Name Value Range Interpretation Code Description Data Adriana rce(s) Supporting Document(s) lipase 94 U/L 73-393 Lipase MARJORIE ([facility]) ID Date Data Source [id number] 01/21/2020 02:09:00 PM EST MARJORIE ([facility]) Name Value Range Interpretation Code Description Data Adriana rce(s) Supporting Document(s) glucose, fasting 113 mg/dL 70-100 Above high normal Glucose, Fas ting AMRJORIE ([facility]) blood urea nitrogen 15 mg/dL 7-18 Blood Urea Nitro gen MARJORIE ([facility]) creatinine for GFR 1.05 mg/dL 0.70-1.30 Creatinine for GF R MARJORIE ([facility]) glomerular filtration rate > 60.0 >60 Glomerula r Filtration Rate MARJORIE ([facility]) sodium level 138 mEq/L 136-145 Sodium Level MARJORIE (No [facility]) chloride level 103 mEq/L 98-107 Chloride Level ANACONDA ([facility]) potassium serum 4.9 mEq/L 3.5-5.1 Potassium Serum ATHE NA ([facility]) anion gap 13 mEq/L 8-16 Anion Gap ANACONDA ([facility]) carbon dioxide level 22 mEq/L 21-32 Carbon Dioxide Level ANACONDA ([facility]) calcium level 9.2 mg/dL 8.5-10.1 Calcium Level MARJORIE ( [facility]) ID Date Data Source [id number] 01/21/2020 02:09:00 PM EST MARJORIE ([facility]) Name Value Range Interpretation Code Description Data Adriana rce(s) Supporting Document(s) AST/SGOT 10 U/L 7-37 AST/SGOT MARJ[facility]IE ([facility]) ALT/SGPT 38 U/L 12-78 ALT/SGPT ANACONDA ([facility]) bilirubin,direct < 0.1 0.0-0.2 Bilirubin,direct AT [facility] ([facility]) alkaline phosphatase 105 U/L 45-117 Alkaline Phosph atase MARJORIE ([facility]) bilirubin,total 0.3 mg/dL 0.2-1.0 Bilirubin,total ATHE NA ([facility]) albumin 3.7 gm/dL 3.2-5.2 Albumin MARJORIE ([facility]) albumin/globulin ratio Albumin/globu karina Ratio MARJORIE ([facility]) total protein 7.6 gm/dL 6.4-8.2 Total Protein MARJORIE ( [facility]) ID Date Data Source [id number] 01/21/2020 02:09:00 PM EST MARJORIE ([facility]) Name Value Range Interpretation Code Description Data Adriana rce(s) Supporting Document(s) CPK creatine phosphokinase 85 U/L 39-308 CPK Creat ine Phosphokinase MARJORIE ([facility]) CK-mb value mass 2.2 NG/mL <3.6 CK-mb Value Mass AT [facility] ([facility]) mb/CK relative index < or =4 mb/CK Relative Index MARJORIE ([facility]) troponin I < 0.02 < 0.10 Troponin I MARJORIE ([facility]) ID Date Data Source [id number] 01/21/2020 02:09:00 PM EST MARJORIE ([facility]) Name Value Range Interpretation Code Description Data Adriana rce(s) Supporting Document(s) erythrocyte sedimentation rate 5 mm/HR 0-15 Eryth rocyte Sedimentation Rate MARJORIE ([facility]) ID Date Data Source [id number] 01/21/2020 02:09:00 PM EST MARJORIE ([facility]) Name Value Range Interpretation Code Description Data Adriana rce(s) Supporting Document(s) hematocrit 45.6 % 42.0-52.0 Hematocrit MARJORIE ([facility]) white blood count 9.1 10 4.0-10.0 White Blood Count MARJORIE ([facility]) red blood count 5.30 10 4.30-6.10 Red Blood Count ATHE NA ([facility]) hemoglobin 15.4 g/dL 13.5-17.5 Hemoglobin MARJORIE ([facility]) mean corpuscular volume 86.0 fL 80.0-96.0 Mean Corpusc ular Volume MARJORIE ([facility]) mean corpuscular HGB conc 33.8 g/dL 32.0-36.5 Mean Corpu scular HGB Conc MARJORIE ([facility]) mean corpuscular hemoglobin 29.1 pg 27.0-33.0 Mean Cor puscular Hemoglobin MARJORIE ([facility]) platelet count, automated 378 10 150-450 Platelet C ount, Automated MARJORIE ([facility]) red cell distribution width 12.4 % 11.5-14.5 Red Cell Distribution Width MARJORIE ([facility]) lymph % 25.8 % 24.0-44.0 Lymph % MARJORIE ([facility]) neutrophils % 65.4 % 36.0-66.0 Neutrophils % MARJORIE ( [facility]) eos % 1.0 % 0.0-3.0 Eos % MARJORIE ([facility]) immature granulocyte % 0.4 % 0-3.0 Immature Gran ulocyte % MARJORIE ([facility]) baso % 0.5 % 0.0-1.0 Baso % MARJORIE ([facility]) mono % 6.9 % 0.0-5.0 Above high normal [place] % MARJORIE ([facility]) mono # 0.6 10 0.0-0.8 [place] # MARJORIE ([facility]) lymph # 2.4 10 1.5-5.0 Lymph # MARJORIE ([facility]) neutrophils # 6.0 10 1.5-8.5 Neutrophils # MARJORIE ( [facility]) nucleated red blood cell % 0.0 % 0-0 Nucleated Red Blood Cell % MARJORIE ([facility]) baso # 0.1 10 0.0-0.2 Baso # MARJORIE ([facility]) eos # 0.1 10 0.0-0.5 Eos # MARJORIE ([facility]) ID Date Data Source [id number] 01/21/2020 02:09:00 PM EST MARJORIE ([facility]) Name Value Range Interpretation Code Description Data Adriana rce(s) Supporting Document(s) partial thromboplastin time 29.2 seconds 24.2-38.5 Partial Thromboplastin Time MARJORIE ([facility]) prothrombin time 12.9 seconds 12.5-14.3 Prothrombin Time MARJORIE ([facility]) INR Inr MARJORIE ([facility]) ID Date Data Source [id number] 01/21/2020 02:09:00 PM EST MARJORIE ([facility]) Name Value Range Interpretation Code Description Data Adriana rce(s) Supporting Document(s) C reactive protein quantitativ 0.30 mg/dL 0.00-0.30 C Reactive Protein Quantitativ MARJORIE ([facility]) ID Date Data Source [id number] 01/21/2020 02:09:00 PM EST MARJORIE ([facility]) Name Value Range Interpretation Code Description Data Adriana rce(s) Supporting Document(s) lipase 94 U/L 73-393 Lipase MARJORIE ([facility]) ID Date Data Source [id number] 01/21/2020 02:09:00 PM EST MARJORIE ([facility]) Name Value Range Interpretation Code Description Data Adriana rce(s) Supporting Document(s) glucose, fasting 113 mg/dL 70-100 Above high normal Glucose, Fas ting MARJORIE ([facility]) blood urea nitrogen 15 mg/dL 7-18 Blood Urea Nitro gen MARJORIE ([facility]) sodium level 138 mEq/L 136-145 Sodium Level MARJORIE (No [facility]) creatinine for GFR 1.05 mg/dL 0.70-1.30 Creatinine for GF R MARJORIE ([facility]) glomerular filtration rate > 60.0 >60 Glomerula r Filtration Rate MARJORIE ([facility]) chloride level 103 mEq/L 98-107 Chloride Level MARJORIE ([facility]) potassium serum 4.9 mEq/L 3.5-5.1 Potassium Serum ATHE ([facility]) carbon dioxide level 22 mEq/L 21-32 Carbon Dioxide Level MARJORIE ([facility]) calcium level 9.2 mg/dL 8.5-10.1 Calcium Level MARJORIE ( [facility]) anion gap 13 mEq/L 8-16 Anion Gap MARJORIE ([facility]) ID Date Data Source [id number] 01/21/2020 02:09:00 PM EST MARJORIE ([facility]) Name Value Range Interpretation Code Description Data Adriana rce(s) Supporting Document(s) AST/SGOT 10 U/L 7-37 AST/SGOT MARJORIE ([facility]) ALT/SGPT 38 U/L 12-78 ALT/SGPT MARJORIE ([facility]) alkaline phosphatase 105 U/L 45-117 Alkaline Phosph atase MARJORIE ([facility]) bilirubin,total 0.3 mg/dL 0.2-1.0 Bilirubin,total ATHE ([facility]) total protein 7.6 gm/dL 6.4-8.2 Total Protein MARJORIE ( [facility]) bilirubin,direct < 0.1 0.0-0.2 Bilirubin,direct AT [facility] ([facility]) albumin/globulin ratio Albumin/globu karina Ratio MARJORIE ([facility]) albumin 3.7 gm/dL 3.2-5.2 Albumin MARJORIE ([facility]) ID Date Data Source [id number] 01/21/2020 02:09:00 PM EST MARJORIE ([facility]) Name Value Range Interpretation Code Description Data Adriana rce(s) Supporting Document(s) CK-mb value mass 2.2 NG/mL <3.6 CK-mb Value Mass AT [facility]) CPK creatine phosphokinase 85 U/L 39-308 CPK Creat ine Phosphokinase MARJORIE ([facility]) mb/CK relative index < or =4 mb/CK Relative Index MARJORIE ([facility]) troponin I < 0.02 < 0.10 Troponin I MARJORIE ([facility]) ID Date Data Source [id number] 01/21/2020 02:09:00 PM EST MARJORIE ([facility]) Name Value Range Interpretation Code Description Data Adriana rce(s) Supporting Document(s) erythrocyte sedimentation rate 5 mm/HR 0-15 Eryth rocyte Sedimentation Rate MARJORIE ([facility]) ID Date Data Source [id number] 01/21/2020 02:09:00 PM EST MARJORIE ([facility]) Name Value Range Interpretation Code Description Data Adriana rce(s) Supporting Document(s) red blood count 5.30 10 4.30-6.10 [facility] white blood count 9.1 10 4.0-10.0 White Blood Count MARJORIE ([facility]) mean corpuscular volume 86.0 fL 80.0-96.0 Mean Corpusc ular Volume MARJORIE ([facility]) hemoglobin 15.4 g/dL 13.5-17.5 Hemoglobin MARJORIE ([facility]) mean corpuscular hemoglobin 29.1 pg 27.0-33.0 Mean Cor puscular Hemoglobin MARJORIE ([facility]) hematocrit 45.6 % 42.0-52.0 Hematocrit MARJORIE ([facility]) neutrophils % 65.4 % 36.0-66.0 Neutrophils % MARJORIE ( [facility]) platelet count, automated 378 10 150-450 Platelet C ount, Automated MARJORIE ([facility]) red cell distribution width 12.4 % 11.5-14.5 Red Cell Distribution Width MARJORIE ([facility]) mean corpuscular HGB conc 33.8 g/dL 32.0-36.5 Mean Corpu scular HGB Conc MARJORIE ([facility]) mono % 6.9 % 0.0-5.0 Above high normal [place] % MARJORIE ([facility]) baso % 0.5 % 0.0-1.0 Baso % MARJORIE ([facility]) eos % 1.0 % 0.0-3.0 Eos % MARJORIE ([facility]) lymph % 25.8 % 24.0-44.0 Lymph % MARJORIE ([facility]) neutrophils # 6.0 10 1.5-8.5 Neutrophils # MARJORIE ( [facility]) immature granulocyte % 0.4 % 0-3.0 Immature Gran ulocyte % MARJORIE ([facility]) lymph # 2.4 10 1.5-5.0 Lymph # ANACONDA ([facility]) nucleated red blood cell % 0.0 % 0-0 Nucleated Red Blood Cell % MARJORIE ([facility]) eos # 0.1 10 0.0-0.5 Eos # MARJORIE ([facility]) mono # 0.6 10 0.0-0.8 [place] # MARJORIE ([facility]) baso # 0.1 10 0.0-0.2 Baso # MARJORIE ([facility]) ID Date Data Source [id number] 01/21/2020 02:09:00 PM EST MARJORIE ([facility]) Name Value Range Interpretation Code Description Data Adriana rce(s) Supporting Document(s) prothrombin time 12.9 seconds 12.5-14.3 Prothrombin Time MARJORIE ([facility]) partial thromboplastin time 29.2 seconds 24.2-38.5 Partial Thromboplastin Time MARJORIE ([facility]) INR Inr MARJORIE ([facility]) ID Date Data Source [id number] 01/21/2020 02:09:00 PM EST MARJORIE ([facility]) Name Value Range Interpretation Code Description Data Adriana rce(s) Supporting Document(s) C reactive protein quantitativ 0.30 mg/dL 0.00-0.30 C Reactive Protein Quantitativ MARJORIE ([facility]) ID Date Data Source [id number] 01/21/2020 02:09:00 PM EST MARJORIE ([facility]) Name Value Range Interpretation Code Description Data Adriana rce(s) Supporting Document(s) lipase 94 U/L 73-393 Lipase MARJORIE ([facility]) ID Date Data Source [id number] 01/21/2020 02:09:00 PM EST MARJORIE ([facility]) Name Value Range Interpretation Code Description Data Adriana rce(s) Supporting Document(s) blood urea nitrogen 15 mg/dL 7-18 Blood Urea Nitro gen MARJORIE ([facility]) glucose, fasting 113 mg/dL 70-100 Above high normal Glucose, Fas ting MARJORIE ([facility]) glomerular filtration rate > 60.0 >60 Glomerula r Filtration Rate MARJORIE ([facility]) potassium serum 4.9 mEq/L 3.5-5.1 Potassium Serum ATHE NA ([facility]) creatinine for GFR 1.05 mg/dL 0.70-1.30 Creatinine for GF R MARJORIE ([facility]) sodium level 138 mEq/L 136-145 Sodium Level MARJORIE ([facility]) carbon dioxide level 22 mEq/L 21-32 Carbon Dioxide Level MARJORIE ([facility]) anion gap 13 mEq/L 8-16 Anion Gap MARJORIE ([facility]) chloride level 103 mEq/L 98-107 Chloride Level MARJORIE ([facility]) calcium level 9.2 mg/dL 8.5-10.1 Calcium Level MARJORIE ( [facility]) ID Date Data Source [id number] 01/21/2020 02:09:00 PM EST MARJORIE ([facility]) Name Value Range Interpretation Code Description Data Adriana rce(s) Supporting Document(s) AST/SGOT 10 U/L 7-37 AST/SGOT MARJORIE ([facility]) alkaline phosphatase 105 U/L 45-117 Alkaline Phosph atase MARJORIE ([facility]) ALT/SGPT 38 U/L 12-78 ALT/SGPT MARJORIE ([facility]) bilirubin,total 0.3 mg/dL 0.2-1.0 Bilirubin,total ATHE NA ([facility]) bilirubin,direct < 0.1 0.0-0.2 Bilirubin,direct [facility] ([facility]) total protein 7.6 gm/dL 6.4-8.2 Total Protein MARJORIE ( [facility]) albumin/globulin ratio Albumin/globu karina Ratio MARJORIE ([facility]) albumin 3.7 gm/dL 3.2-5.2 Albumin MARJORIE ([facility]) ID Date Data Source [id number] 01/21/2020 02:09:00 PM EST MARJORIE ([facility]) Name Value Range Interpretation Code Description Data Adriana rce(s) Supporting Document(s) CPK creatine phosphokinase 85 U/L 39-308 CPK Creat ine Phosphokinase MARJORIE ([facility]) mb/CK relative index < or =4 mb/CK Relative Index MARJORIE ([facility]) troponin I < 0.02 < 0.10 Troponin I MARJORIE ([facility]) CK-mb value mass 2.2 NG/mL <3.6 CK-mb Value Mass [facility] ([facility]) ID Date Data Source [id number] 01/21/2020 02:09:00 PM EST MARJORIE ([facility]) Name Value Range Interpretation Code Description Data Adriana rce(s) Supporting Document(s) erythrocyte sedimentation rate 5 mm/HR 0-15 Eryth rocyte Sedimentation Rate MARJORIE ([facility]) ID Date Data Source [id number] 01/21/2020 02:09:00 PM EST MARJORIE ([facility]) Name Value Range Interpretation Code Description Data Adriana rce(s) Supporting Document(s) red blood count 5.30 10 4.30-6.10 Red Blood Count ATHE NA ([facility]) white blood count 9.1 10 4.0-10.0 White Blood Count MARJORIE ([facility]) hematocrit 45.6 % 42.0-52.0 Hematocrit MARJORIE ([facility]) mean corpuscular volume 86.0 fL 80.0-96.0 Mean Corpusc ular Volume MARJORIE ([facility]) mean corpuscular hemoglobin 29.1 pg 27.0-33.0 Mean Cor puscular Hemoglobin MARJORIE ([facility]) hemoglobin 15.4 g/dL 13.5-17.5 Hemoglobin MARJORIE ([facility]) neutrophils % 65.4 % 36.0-66.0 Neutrophils % MARJORIE ( [facility]) red cell distribution width 12.4 % 11.5-14.5 Red Cell Distribution Width MARJORIE ([facility]) platelet count, automated 378 10 150-450 Platelet C ount, Automated MARJORIE ([facility]) mean corpuscular HGB conc 33.8 g/dL 32.0-36.5 Mean Corpu scular HGB Conc MARJORIE ([facility]) lymph % 25.8 % 24.0-44.0 Lymph % MARJORIE ([facility]) mono % 6.9 % 0.0-5.0 Above high normal [place] % MARJORIE ([facility]) eos % 1.0 % 0.0-3.0 Eos % MARJORIE ([facility]) baso % 0.5 % 0.0-1.0 Baso % MARJORIE ([facility]) immature granulocyte % 0.4 % 0-3.0 Immature Gran ulocyte % MARJORIE ([facility]) nucleated red blood cell % 0.0 % 0-0 Nucleated Red Blood Cell % MARJORIE ([facility]) mono # 0.6 10 0.0-0.8 [place] # MARJORIE ([facility]) lymph # 2.4 10 1.5-5.0 Lymph # MARJORIE ([facility]) neutrophils # 6.0 10 1.5-8.5 Neutrophils # MARJORIE ( [facility]) baso # 0.1 10 0.0-0.2 Baso # MARJORIE ([facility]) eos # 0.1 10 0.0-0.5 Eos # MARJORIE ([facility]) ID Date Data Source [id number] 01/21/2020 02:09:00 PM EST MARJORIE ([facility]) Name Value Range Interpretation Code Description Data Adriana rce(s) Supporting Document(s) prothrombin time 12.9 seconds 12.5-14.3 Prothrombin Time MARJORIE ([facility]) partial thromboplastin time 29.2 seconds 24.2-38.5 Partial Thromboplastin Time MARJORIE ([facility]) INR Inr MARJORIE ([facility]) ID Date Data Source [id number] 01/21/2020 02:09:00 PM EST MARJORIE ([facility]) Name Value Range Interpretation Code Description Data Adriana rce(s) Supporting Document(s) C reactive protein quantitativ 0.30 mg/dL 0.00-0.30 C Reactive Protein Quantitativ ANACONDA ([facility]) ID Date Data Source [id number] 01/21/2020 02:09:00 PM EST MARJORIE ([facility]) Name Value Range Interpretation Code Description Data Adriana rce(s) Supporting Document(s) lipase 94 U/L 73-393 Lipase MARJORIE ([facility]) ID Date Data Source [id number] 01/21/2020 02:09:00 PM EST MARJORIE ([facility]) Name Value Range Interpretation Code Description Data Adriana rce(s) Supporting Document(s) creatinine for GFR 1.05 mg/dL 0.70-1.30 Creatinine for GF R ANACONDA ([facility]) blood urea nitrogen 15 mg/dL 7-18 Blood Urea Nitro gen MARJORIE ([facility]) glucose, fasting 113 mg/dL 70-100 Above high normal Glucose, Fas ting ANACONDA ([facility]) potassium serum 4.9 mEq/L 3.5-5.1 Potassium Serum ATHE NA ([facility]) glomerular filtration rate > 60.0 >60 Glomerula r Filtration Rate MARJORIE ([facility]) sodium level 138 mEq/L 136-145 Sodium Level MARJORIE ([facility]) carbon dioxide level 22 mEq/L 21-32 Carbon Dioxide Level MARJORIE ([facility]) calcium level 9.2 mg/dL 8.5-10.1 Calcium Level MARJORIE ( [facility]) anion gap 13 mEq/L 8-16 Anion Gap MARJORIE ([facility]) chloride level 103 mEq/L 98-107 Chloride Level MARJORIE ([facility]) ID Date Data Source [id number] 01/21/2020 02:09:00 PM EST MARJORIE ([facility]) Name Value Range Interpretation Code Description Data Adriana rce(s) Supporting Document(s) ALT/SGPT 38 U/L 12-78 ALT/SGPT MARJORIE ([facility]) alkaline phosphatase 105 U/L 45-117 Alkaline Phosph atase MARJORIE ([facility]) AST/SGOT 10 U/L 7-37 AST/SGOT MARJORIE ([facility]) total protein 7.6 gm/dL 6.4-8.2 Total Protein MARJORIE ( [facility]) bilirubin,total 0.3 mg/dL 0.2-1.0 Bilirubin,total ATHE NA ([facility]) bilirubin,direct < 0.1 0.0-0.2 Bilirubin,direct AT [facility]) albumin 3.7 gm/dL 3.2-5.2 Albumin MARJORIE ([facility]) albumin/globulin ratio Albumin/globu karina Ratio MARJORIE ([facility]) ID Date Data Source [id number] 01/21/2020 02:09:00 PM EST MARJORIE ([facility]) Name Value Range Interpretation Code Description Data Adriana rce(s) Supporting Document(s) CPK creatine phosphokinase 85 U/L 39-308 CPK Creat ine Phosphokinase MARJORIE ([facility]) CK-mb value mass 2.2 NG/mL <3.6 CK-mb Value Mass AT [facility] ([facility]) mb/CK relative index < or =4 mb/CK Relative Index MARJORIE ([facility]) troponin I < 0.02 < 0.10 Troponin I ANACONDA ([facility]) ID Date Data Source [id number] 01/07/2020 12:36:46 PM EST [facility] NT INFORMATIONPatient MRN Name Date of Age Gend*PT [id number] Delonte Zamorano 1985 34 years M OBSPT Location Admission Date/Time Visit ID Attending [id number] 01/04/202121 --- --- EPI ID CSN Admitting Provider [id number] Reji Griggs MD([id number]) Attestation signed by Alfie Hopper DO at 01/07/2020 12:36 PMProcedure performed under my supervision, I agree with above report.Alfie Hopper DO 01/07/2020 12:36 PMDepartment of Interventional Radiology ---------Brief Operative/Invasive Procedure NoteSaure Betsy ZamoranoDATE OF : 1985MRN # [id number] DATE: 01/06/2020PROVIDER:Dr. HopperPROALEXXURE:US guided lumbar fluid collection aspiration - Approx 4 cc of clear,yellow fluid aspiratedPRE-PROCEDURE DIAGNOSIS:Lumbar fluid collectionPOST PROCEDURE DIAGNOSIS:Lumbar fluid collectionANESTHESIA TYPE:local - 1% lidocaine (2cc)DRAINS:NoneSPECIMENS:Lumbar fluidESTIMATED BLOOD LOSS: MinimalGRAFTS OR IMPLANTS:NoneFINDINGS: Consistent with operative diagnosisCOMPLICATIONS: NoneScott Channels, PADepartment of Interventional Radiology Name Value Range Interpretation Code Description Data Adriana rce(s) Supporting Document(s) ID Date Data Source [id number] 01/06/2020 04:58:59 PM EST [address] [id number] Name: DELONTE ZAMORANODOB: 1985Sex: MOrdering Provider: MARIMAR Mejias Prov: MARIMAR Whitten Provider: Procedure Performed: IR US GUIDED NEEDLE PLACEMENTExam Date: 01/06/2020 16:00MRN: [id number] Number: [id number] Class: OutpatientAccount #: [id number] for Exam: lumbar fluid collection on MRI [...] ALFIE HOPPER On 01/06/2020 4:58 PMWorkstation ID: [id number] Name Value Range Interpretation Code Description Data Adriana rce(s) Supporting Document(s) ID Date Data Source [id number] 01/06/2020 04:51:58 PM EST [facility] NT INFORMATIONPatient MRN Name Date of Age Gend*PT [id number] Delonte Zamorano 1985 34 years M OBSPT Location Admission Date/Time Visit ID Attending [id number] 01/04/202121 --- Reji Griggs MD([id number]) EPI ID CSN Admitting Provider [id number] Reji Griggs MD([id number]) Attestation signed by Reji Griggs MD at [...] Spondylolisthesis at L5-S1 level Herniated nucleus pulposus, L5-A6Fynfemni Problems: * No resolved hospital problems. *Surgical [...] details.Discharge disposition: He will be [facility] from [facility] to home in good condition.Discharge Weight Bearing [...] 4 cc clear fluidConsults:noneSignature: [phone]: January 06, 2020Time: 4:36 PM Name Value Range Interpretation Code Description Data Adriana rce(s) Supporting Document(s) ID Date Data Source [id number] 01/08/2020 09:58:38 AM EST [facility] [place] SPECIMEN DESCRIPTION CEREBROSPINA L FLUID LUMBARSPECIAL REQUESTS NONEGRAM STAIN NO WHITE BLOOD CELLS NO BACTERIACULTURE RESULTS NO GROWTHREPORT STATUS FINAL 01/08/2020 Name Value Range Interpretation Code Description Data Adriana rce(s) Supporting Document(s) ID Date Data Source [id number] 01/06/2020 10:29:00 PM EST [facility] [place] SPECIMEN DESCRIPTION CEREBROSPINA L FLUIDSPECIAL REQUESTS NONEGRAM STAIN NOT DONECULTURE RESULTS WRONG TEST ORDERED BY LAB ORDERED IN ERROR. [id number].REPORT STATUS FINAL 01/06/2020 Name Value Range Interpretation Code Description Data Adriana rce(s) Supporting Document(s) ID Date Data Source [id number] 01/06/2020 10:28:25 PM EST [facility] [place] SPECIMEN DESCRIPTION CEREBROSPINA L FLUIDSPECIAL REQUESTS NONECULTURE RESULTS WRONG TEST ORDERED BY LAB ORDERED IN ERRORREPORT STATUS FINAL 01/06/2020 Name Value Range Interpretation Code Description Data Adriana rce(s) Supporting Document(s) ID Date Data Source [id number] 01/06/2020 10:27:25 PM EST [facility] [place] SPECIMEN DESCRIPTION WOUND LUMBAR FLUIDSPECIAL REQUESTS NONEGRAM STAIN NOT DONECULTURE RESULTS TEST(S) PROCESSED UNDER NEW ENTRY PLEASE SEE [id number] [facility]. [id number].REPORT STATUS FINAL 01/06/2020 Name Value Range Interpretation Code Description Data Adriana rce(s) Supporting Document(s) ID Date Data Source [id number] 01/06/2020 12:53:35 PM EST [facility] [place] Name Value Range Interpretation Code Description Data Adriana rce(s) Supporting Document(s) PT 10.8 s (9.2-11.9) [facility] INR 1.03 [facility] SUGGESTED THERAPEUTIC RANGES USING INR F ORSTABILIZED ANTICOAGULATED PATIENTS:STANDARD DOSE THERAPY INR 2.0-3.0 DVT, PE, PREVENT DVT OR EMBOLISMHIGH DOSE THERAPY INR 2.5-3.5 PREVENT EMBOLISM FROM MECHANICAL HEART VALVE ID Date Data Source [id number] 01/06/2020 07:20:02 AM EST [facility] Name Value Range Interpretation Code Description Data Adriana rce(s) Supporting Document(s) WBC 7.3 10*3/uL (4.1-11.0) [facility] [place] RBC 4.94 10*6/uL (4.60-6.10) [facility] HGB 15.1 g/dL (13.5-18.0) [facility] HCT 43.7 % (41.0-53.0) [facility] PERFORMED AT [address] [place] [address] [place] [address] MCV 88.4 fL (80.0-95.0) [facility] MCH 30.5 pg (27.0-32.0) [facility] MCHC 34.5 g/dL (32.0-36.0) [facility] RDW 13.4 % (10.5-14.5) [facility] PLT 333 10*3/uL (150-450) [facility] MPV 7.9 fL (7.1-10.7) [facility] NEUT % 43.1 % (35.0-75.0) [facility] LYMPH % 42.1 % (16.0-52.0) [facility] MONO % 9.9 % (0.0-8.0) H [facility] EOS % 3.7 % (0.0-5.0) [facility] BASO % 1.2 % (0.0-4.0) [facility] NEUT # 3.1 10*3/uL (1.8-7.7) [facility] LYMPH # 3.1 10*3/uL (1.2-4.8) [facility] MONO # 0.7 10*3/uL (0.0-0.8) [facility] Eosinophils [#/volume] in Blood by Automated count 0.3 10*3/uL (0.0-0 .5) [facility] BASO # 0.1 10*3/uL (0.0-0.2) [facility] ID Date Data Source [id number] 01/05/2020 06:18:[address] [address]Ftobgmq Name: Delonte ZamoranoDOB: 1985Sex: MOrdering Provider: MARIMAR Mejias Prov: MARIMAR Whitten Provider: Procedure Performed: MRI LUMBAR SPINE W WO CONTRASTExam Date: 01/05/2020 16:23MRN: [id number] Number: [id number] Class: INFORMATION: Exam: MR Lumbar Spine Without [...] rce(s) Supporting Document(s) ID Date Data Source [id number] 01/05/2020 09:44:00 [place] [address] RESPIRATORY CARE REPORT ==== ---------NAME------- NUMBER SEX AGE ADMIT DISC. XRAY# F/C TYPEMURPHY DELONTE Meyer [id number] M 34 01/04/20 01/04/20 [id number] X6B E/R DATE OF : 1985 M/R# [id number] #: [id number] TR-06 LOCATION: EMERGENCY DEPT EKG [id number] COMP LETE:01/05/20 01:42 T 21582 PHYSICIAN: KEYA PADRON Name Value Range Interpretation Code Description Data Adriana rce(s) Supporting Document(s) ID Date Data Source [id number] 01/05/2020 07:37:51 AM EST [address] [address]Vwklsnz Name: DELONTE ZAMORANODOB: 1985Sex: MOrdering Provider: CHAIM Pisano Prov: CHAIM Lay Provider: Procedure Performed: XR LUMBAR SPINE AP AND LATERALExam Date: 01/05/2020 01:41MRN: [id number] Number: [id number] Class: OutpatientAccount #: [id number] for Exam: s/p l5-S1 fusion now with [...] SPENCER JENNINGS On 01/05/2020 7:37 AMWorkstation ID: [id number] Name Value Range Interpretation Code Description Data Adriana rce(s) Supporting Document(s) ID Date Data Source [id number] 01/05/2020 07:20:58 AM EST [facility] NT INFORMATIONPatient MRN Name Date of Age Gend*PT [id number] Delonte Zamorano 1985 34 years M OBSPT Location Admission Date/Time Visit ID Attending [id number] 01/04/202121 --- Daren Richard MD([id number]) EPI ID CSN Admitting Provider [id number] Daren Richard MD([id number]) Attestation signed by Reji Griggs MD at 01/05/2020 7:20 AMSignature: JEFF Pradhanate: January 05, 2020Time: 7:20 AM --Ortho H+P Anilaaure ZamoranoMRN: [id number] Physician: Dr. Pope referred by:Juan Carlos Marks [...] touch or weightbearing. He was evaluated by [facility] department [facility] emergency departmentfor higher level of care. Orthopedics [...] patient during rounds.Chaim CHAVEZ-CSignature: [phone]: January 05, 2020Time: 12:54 AM Name Value Range Interpretation Code Description Data Adriana rce(s) Supporting Document(s) ID Date Data Source [id number] 01/05/2020 07:18:07 AM EST [facility] INFORMATIONPatient MRN Name Date of Age Gend*PT [id number] Delonte Zamorano 1985 34 years M OBSPT Location Admission Date/Time Visit ID Attending [id number] 01/04/202121 --- Daren Richard MD([id number]) EPI ID CSN Admitting Provider [id number] Daren Richard MD([id number])Ortho H&P NoteChief Complaint: Lower back pain/right lower extremity pain/tinglingSean M GarbervilleMRN: [id number] and Recommendations:Principal Problem: Post-op painActive Problems: Spondylolisthesis at L5-S1 level Herniated nucleus pulposus, L5-S1 1. Acute onset lower back pain/right lower extremity numbness/tingling: NeedsMRI for further evaluation-MRI ordered. Apparently MRI cannot be performedwhile in the emergency room last p.m. Further recommendations after MRIobtained and reviewedLabs/Imaging/Other diagnostics:X-rays lumbar spine [facility] 01/05/2020: Hardware in good position. GoodalignmentHistory of Present Illness: 34-year-old male status post L5-S1 TLIF 09/30/2019.Did well postoperatively. Preoperative symptoms were down the left lowerextremity. However states on , was lifting his son developedsome lower back pain. Woke up Sunday morning with severe pain in the backrating down the right lower extremity. [facility] then [facility] to [facility] for further evaluation treatment. Besides alower back [...] Reji Griggs, MDDate: January 05, 2020Time: 7:10 [facility]:Daren Richard MD Name Value Range Interpretation Code Description Data Adriana rce(s) Supporting Document(s) ID Date Data Source [id number] 01/11/2020 11:10:42 AM EST [facility] SPECIMEN DESCRIPTION PERIPHERAL LEFTSPECIAL REQUESTS NONECULTURE RESULTS NO GROWTH 6 DAYSREPORT STATUS FINAL 01/11/2020 Name Value Range Interpretation Code Description Data Adriana rce(s) Supporting Document(s) ID Date Data Source [id number] 01/11/2020 11:10:42 AM EST [facility] SPECIMEN DESCRIPTION PERIPHERAL RIGHTSPECIAL REQUESTS NONECULTURE RESULTS NO GROWTH 6 DAYSREPORT STATUS FINAL 01/11/2020 Name Value Range Interpretation Code Description Data Adriana rce(s) Supporting Document(s) ID Date Data Source [id number] 01/04/2020 11:06:43 PM EST [facility] NT INFORMATIONPatient MRN Name Date of Age Gend*PT [id number] Delonte Zamorano 1985 34 years M EDPT Location Admission Date/Time Visit ID Attending [id number] 01/04/202121 --- Nicolas An MD([id number]) EPI ID CSN Admitting Provider [id number] ---Provider in Triage NotesNo notes on fileHistory of Present IllnessChief ComplaintPatient presents with Post-op Problem Per EMS- Pt had back surgery at [facility] on 10/01/2019. The pain has returned andworsened over the past 2 days at which [facility].Transferred here for further workup and MRI.34-year-old male [...] He has a normal mood and affect.ED [id number]:00 Dr Richard from Ortho spine, freda admit to his service for MRI in [facility] was electronically signed by Nicolas An MD, 01/04/20 10:01 PM.Nicolas An MD01/04/20 2306 Name Value Range Interpretation Code Description Data Adriana rce(s) Supporting Document(s) ID Date Data Source [id number] 01/04/2020 10:09:00 PM EST [facility] Name Value Range Interpretation Code Description Data Adriana rce(s) Supporting Document(s) SARS coronavirus 2 RNA [Presence] in Res piratory specimen by BINA with probe detection [facility] This lab was reported by [facility]. ID Date Data Source [id number] 01/05/2020 12:23:19 AM EST [facility] Name Value Range Interpretation Code Description Data Adriana rce(s) Supporting Document(s) SPECIMEN DESCRIPTION [facility] INFLUENZA A (NEG) [facility] INFLUENZA B (NEG) [facility] RSV (NEG) [facility] COMMENT [facility] UNDER AN EMERGENCY USE AUTHORIZATION(EUA ) FOR THE DETECTION AND/OR DIAGNOSISOF THE VIRUS THAT CAUSES COVID-19.PERFORMED AT [address] [place] [address] COVID19 RESULT (NDET) [facility] THIS ASSAY AMPLIFIES AND DETECTSTHE TARG ET RNA USING REAL-TIME PCR.NEGATIVE 2019_NCOV RT-PCR RESULTS DONOT PRECLUDE 2019_NCOV INFECTION ANDSHOULD NOT BE USED THE SOLE BASISFOR PATIENT MANAGEMENT DECISIONS. FIRST TEST [facility] SYMPTOMATIC [facility] Y DATE OF SYMPT ONSET [facility] H[facility] ICU [facility] CONGREGATE CARE SET [facility] ID Date Data Source [id number] 01/04/2020 11:08:54 PM EST [facility] Name Value Range Interpretation Code Description Data Adriana rce(s) Supporting Document(s) SODIUM 137 mmol/L (136-145) [facility] POTASSIUM 4.1 mmol/L (3.6-5.2) [facility] CHLORIDE 106 mmol/L (100-108) [facility] CO2 23 mmol/L (22-31) [facility] ANION GAP 8 mmol/L (7-16) [facility] UREA NITROGEN 15 mg/dL (7-24) [facility] CREATININE 0.98 mg/dL (0.80-1.30) [facility] BUN/CREAT RATIO 15.3 RATIO (10.0-20.0) [facility] GLUCOSE 127 mg/dL (70-99) H [facility] CALCIUM 9.0 mg/dL (8.4-10.2) [facility] TOTAL PROTEIN 7.9 g/dL (6.4-8.2) [facility] ALBUMIN 4.0 g/dL (3.5-4.6) [facility] GLOBULIN 3.9 g/dL (2.7-4.3) [facility] ALB/GLOB RATIO 1.0 RATIO [facility] ALKALINE PHOSPHATASE 106 U/L (45-117) [facility] BILIRUBIN,TOTAL 0.5 mg/dL (0.0-1.0) [facility] PLEASE NOTE:Total bilirubin results may be falselyelevated in patients taking Eltrombopag. AST (SGOT) 72 U/L (11-39) H [facility] ALT (SGPT) 84 U/L (12-78) H [facility] GFR >60 ml/min/1.73m2 (>59) [facility] GFR ( AMER) >60 ml/min/1.73m2 (>59) [facility] GFR INTERPRETATION [facility] --NORMAL KIDNEY FUNCTION OR MILD DISEASE - GFR >OR= 60CHRONIC KIDNEY DISEASE - GFR 15 - 59RENAL FAILURE - GFR <15 Est. GFR calculation based on the MDRDstudy equation, which assumes a steadystate for creatinine. Est. GFR should notbe used for medication dosing. ID Date Data Source [id number] 01/04/2020 10:47:51 PM EST [facility] Name Value Range Interpretation Code Description Data Adriana rce(s) Supporting Document(s) WBC 15.2 10*3/uL (4.1-11.0) H [facility] RBC 5.39 10*6/uL (4.60-6.10) [facility] HGB 16.2 g/dL (13.5-18.0) [facility] HCT 46.7 % (41.0-53.0) [facility] MCV 86.5 fL (80.0-95.0) [facility] MCH 30.1 pg (27.0-32.0) [facility] MCHC 34.8 g/dL (32.0-36.0) [facility] RDW 13.5 % (10.5-14.5) [facility] PLT 373 10*3/uL (150-450) [facility] MPV 8.0 fL (7.1-10.7) [facility] NEUT % 90.9 % (35.0-75.0) H [facility] LYMPH % 7.0 % (16.0-52.0) L [facility] MONO % 1.6 % (0.0-8.0) [facility] EOS % 0.1 % (0.0-5.0) [facility] BASO % 0.4 % (0.0-4.0) [facility] NEUT # 13.8 10*3/uL (1.8-7.7) H [facility] [place] LYMPH # 1.1 10*3/uL (1.2-4.8) L [facility] MONO # 0.2 10*3/uL (0.0-0.8) [facility] Eosinophils [#/volume] in Blood by Automated count 0.0 10*3/uL (0.0-0 .5) [facility] BASO # 0.1 10*3/uL (0.0-0.2) [facility] ID Date Data Source [id number] 01/04/2020 04:23:00 PM EST [facility] 1 OrderSheet [facility] Emergency Department [address] [place] [address] Phone #: ext- [phone] 01/04/2020 16:17 Patient: [...] MD; RNMagnesium STAT 18:15 01/04/2020 18:29 Brianne Frereira Norma MD; RNETOH STAT 18:15 01/04/2020 18:29 [...] IV 18:16 01/04/2020 18:51 Sorbero, 2 OrderSheet [facility] Emergency Department [address] [place] [address] Phone #: ext- [phone] 01/04/2020 16:17 Patient: DELONTE ZAMORANO Sex: M : 1985 Age: [id number] mg (NOW x1, Almaz Valle MD; Suraj [...] rce(s) Supporting Document(s) ID Date Data Source [id number] 01/04/2020 04:23:00 PM EST [facility] 1 Medication Reconciliation Report [facility] Emergency Department [address] [place] [address] Phone #: ext- [phone] 01/04/2020 16:17 Patient: [...] rce(s) Supporting Document(s) ID Date Data Source [id number] 01/04/2020 04:23:00 PM EST [facility] 1 Medication Administration Record [facility] Emergency Department [address] [place] [address] Phone #: ext- [phone] 01/04/2020 16:17 Patient: [...] IV NS 1000 mL Bolus : Bolus [id number] 01/04/2020 Dose: IV Fluids mL (X1)Suraj Day R.N. Rate: 1500 mL/hr over 40 minute(s)---- Dispensed: 1000 mL bagStop Site: #1 left AC19:37 01/04/2020Suraj Day R.N. Name Value Range Interpretation Code Description Data Adriana rce(s) Supporting Document(s) ID Date Data Source [id number] 01/04/2020 04:23:00 PM EST [facility] 1 General Instructions [facility] Emergency Department [address] [place] [address] Phone #: ext- [phone] 01/04/2020 16:17 Patient: [...] people can remain active. 2 General Instructions [facility] Emergency Department [address] [place] [address] Phone #: ext- [phone] 01/04/2020 16:17 Patient: [...] with your knees bent 3 General Instructions [facility] Emergency Department [address] [place] [address] Phone #: ext- [phone] 01/04/2020 16:17 Patient: [...] or are takingother medicines. You may use mupn-xkh-wwazify medicine as directed on the bottle to [...] may affect your care. 4 General Instructions [facility] Emergency Department [address] [place] [address] Phone #: ext- [phone] 01/04/2020 16:17 Patient: [...] Numbness in the groin or genital area [phone] [employer] [place] [address]. All rights reserved. This information is not [...] medicines you take. This includes prescription and uyag-brm-jrobhjp medicines, vitamins, and herbs. Ask if any of the medicines may be causing 5 General Instructions [facility] Emergency Department [address] [place] [address] Phone #: ext- [phone] 01/04/2020 16:17 Patient: [...] Open wound with redness, swelling, or pus [phone] [employer]. [address] [place] [address]. All rights reserved. This information is not intended as asubstitute for professional medical care. Always follow your healthcare professional's instructions. You have been given the following additional information: Back Pain (Acute or Chronic) Paraesthesias 6 General Instructions [facility] Emergency Department [address] [place] [address] Phone #: ext- [phone] 01/04/2020 16:17 Patient: DELONTE ZAMORANO Sex: M : 1985 Age: 34y(Electronically signed by Almaz Valle MD 01/04/2020 19:53) Name Value Range Interpretation Code Description Data Adriana rce(s) Supporting Document(s) ID Date Data Source [id number] 01/04/2020 04:23:00 PM [facility] 1 Clinical Report - Nurses [facility] Emergency Department [address] [place] [address] Phone #: ext- [phone] 01/04/2020 16:17 Patient: DELONTE ZAMORANO Sex: M : 1985 Age: 34yTRIAGEArrived by private vehicle. Historian: patient. ( back pain with pain shooting down right leg).Triage time: 16:21 01/04/2020. Acuity: LEVEL 4.Chief Complaint: BACK PAIN.Alert.This started yesterday. 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 No suspected [...] ulcer.Gastritis.Back Pain. 2 Clinical Report - Nurses [facility] Emergency Department [address] [place] [address] Phone #: ext- [phone] 01/04/2020 16:17 Patient: [...] known carrier 3 Clinical Report - Nurses [facility] Emergency Department [address] [place] [address] Phone #: ext- [phone] 01/04/2020 16:17 Patient: [...] To treatment room. --16:01/04/20 Suraj Day R.N.PHYSICAL [id number]:01/04/20. Ambulatory to room.GENERAL / NEURO / PSYCH: [...] light placed in reach. Bed placed in [facility]. Brakes of bed on. Patient ready for evaluation- ED physician notified. --16:01/04/20Suraj garcia R.N. 17:15 01/04/2020 Morphine IM 4 mg given. Given in the right deltoid. Allergies verified and confirmed 5 rights. Information reviewed with patient including reason for taking this medication, signs of allergic reaction, precautions and sedative warning. Verbalizes understanding. --17:15 01/04/20 Suraj Day R.N. 4 Clinical Report - Nurses [facility] Emergency Department [address] [place] [address] Phone #: ext- [phone] 01/04/2020 16:17 Patient: [...] Suraj Day R.N.18:34 01/04/20. Patient transported to [place] by wheelchair with tele tech. --18:35 01/04/20 Suraj Day R.N.18:33 01/04/20. [...] 01/04/20. ( spoke to Michelle SOSA at [facility] to inform her transfer is delayed until further noticebecause of chest pain and evaluation. we will keep them posted.). --18:59 01/04/20 Suraj Day R.N.19:19 01/04/20. BP: 147/90. MAP: 109. HR: 74. RR: 17. O2 saturation: 100%. --19:19 01/04/20 Marisol Harris, ER Tech1 5 Clinical Report - Nurses [facility] Emergency Department [address] [place] [address] Phone #: ext- [phone] 01/04/2020 16:17 Patient: DELONTE ZAMORANO Sex: M : 1985 Age: 34y 19:29 01/04/20. BP: 155/82. MAP: 106. HR: 67. RR: 15. O2 saturation: 100%. --19:29 01/04/20 Daisha linux systems engineer, Marisol, ER Tech1 19:32 01/04/2020 Ofirmir IVPB [...] include patient impairment of mobility. Transferred to [facility]. Visit overview, summary of care (CCDA), Emtala [...] Day R.N. 6 Clinical Report - Nurses [facility] Emergency Department [address] [place] [address] Phone #: ext- [phone] 01/04/2020 16:17 -------- Patient: DELONTE ZAMORANO Sex: M : 1985 Age: 34y Name Value Range Interpretation Code Description Data Adriana rce(s) Supporting Document(s) ID Date Data Source [id number] 01/04/2020 04:23:00 PM EST [facility] 1 Clinical Report - Physicians/Mid Levels [facility] Emergency Department [address] [place] [address] Phone #: ext- [phone] 01/04/2020 16:17 Patient: [...] Allergies: 2 Clinical Report - Physicians/Mid Levels [facility] Emergency Department [address] [place] [address] Phone #: ext- [phone] 01/04/2020 16:17 Patient: DELONTE ZAMORANO Sex: M [...] 10/01/19, did spine surgery on him at [facility]. He states he used a walker [...] pt 3 Clinical Report - Physicians/Mid Levels [facility] Emergency Department [address] [place] [address] Phone #: ext- [phone] 01/04/2020 16:17 Patient: [...] lower extremity. Patient/family counseled. Disposition: Transferred to [facility]. Condition: stable.CLINICAL IM PRESSION Weakness of the right lower extremity. Paresthesia Nontraumatic lumbar back pain.(Electronically signed by Almaz Valle MD 01/04/2020 19:53) Name Value Range Interpretation Code Description Data Adriana rce(s) Supporting Document(s) ID Date Data Source [id number] 01/04/2020 07:16:00 PM EST [facility] [address] [facility] [place] [address] ---------NAME--------- NUMBER SEX AGE ADMIT DISC. XRAY# F/C TYPE KYLE Meyer [id number] M 34 01/04/20 [id number] X6B E/R DATE OF : 1985 M/R# [id number] #: [id number] TR-06 LOCATION: EMERGENCY DEPT TRANSCRIBED: 01/04/20 19:[address] ABD //T// PELV W/[place] ORAL W/[place] [id number] COMPLETED:01/04/20 19:12 [facility] [address] Reason(s): Abdominal Pain PHYSICIAN: KEYA======= R A D I O L O G Y R E P O R T PATIENT HISTORY:abdominal pain 3 months s/p lumbar fusion, accumulated dlp 1154.5 mGy*cm est EOX1223.2 mGy*cm MALE 2 PT IDENTIFIERS-JJH / ABD/PEL (DICOM Hx)EXAM: CT Abdomen and Pelvis Without IV contrastCLINICAL HISTORY: Abdominal pain 3 months s/p lumbar fusion, accumulated gle2841.5 mGy*cm est DLP 1143.2 mGy*cm MALE 2 [...] rce(s) Supporting Document(s) ID Date Data Source [id number] 01/04/2020 07:00:00 PM [facility] Name Value Range Interpretation Code Description Data Adriana rce(s) Supporting Document(s) TROPONIN T <0.01 NG/ML 0.00 - 0.10 [facility] ospital TROPONIN T0.1 ng/ml Recommended as the c linical threshold value forTroponin T. ID Date Data Source [id number] 01/04/2020 06:59:00 PM [facility] Name Value Range Interpretation Code Description Data Adriana rce(s) Supporting Document(s) Ethanol [Moles/volume] in Blood <10.0 MG/DL [facility] ALCOHOL % 0.01 % 0.00 - 0.01 [facility]osp ital *FOR MEDICAL PURPOSES ONLY * ID Date Data Source [id number] 01/04/2020 06:59:00 PM [facility] Name Value Range Interpretation Code Description Data Adriana rce(s) Supporting Document(s) Magnesium [Mass/volume] in Serum or Plasma 1.9 MG/DL 1.7 - 2.2 [facility] ID Date Data Source [id number] 01/04/2020 06:59:00 PM [facility] Name Value Range Interpretation Code Description Data Adriana rce(s) Supporting Document(s) Lipase [Enzymatic activity/volume] in Serum or Plasma 64 U/L 13 - 60 H [facility] ID Date Data Source [id number] 01/04/2020 06:59:00 PM [facility] Name Value Range Interpretation Code Description Data Adriana rce(s) Supporting Document(s) COMPREHENSIVE METABOLIC PANEL [facility] COMPREHENSIVE METABOLIC PANEL Sodium [Moles/volume] in Serum or Plasma 136 mEq/L 134 - 153 [facility] Potassium [Moles/volume] in Serum or Plasma 4.3 mEq/L 3.6 - 5.0 [facility] Chloride [Moles/volume] in Serum or Plasma 100 mEq/L 98 - 107 [facility] Carbon dioxide, total [Moles/volume] in Serum or Plasma 24 MEQ/L 22 - 30 [facility] Glucose [Mass/volume] in Serum or Plasma 100 MG/DL 65 - 110 [facility] BUN 11 MG/DL 7 - 21 [facility] al Creatinine [Mass/volume] in Serum or Plasma 0.9 MG/DL 0.7 - 1.5 [facility] BUN/CREAT 12 8 - 27 [facility] Protein [Mass/volume] in Serum or Plasma 7.7 G/DL 6.3 - 8.2 [facility] Albumin [Mass/volume] in Serum or Plasma 5.0 G/DL 3.9 - 5.0 [facility] Globulin [Mass/volume] in Serum by calculation 2.7 GM/DL 2.4 - 3.2 [facility] A/G RATIO 1.9 0.8 - 2.0 [facility] Calcium [Mass/volume] in Serum or Plasma 10.0 MG/DL 8.4 - 10.2 [facility] Bilirubin.total [Mass/volume] in Serum or Plasma <0.7 MG/DL 0.2 - 1.3 [facility] Alkaline phosphatase [Enzymatic activity/volume] in Serum or Plasma 94 U/L 38 - 126 [facility] Aspartate aminotransferase [Enzymatic activity/volume] in Serum or Plasma 30 U/L 5 - 40 [facility] Alanine aminotransferase [Enzymatic activity/volume] in Seru m or Plasma 33 U/L 7 - 56 [facility] Anion gap 3 in Serum or Plasma 12.0 mmol/L 8.0 - 16.0 [facility] AGE 34 yrs [facility] Hospit al NON-AA GFR >60 mL/min [facility] ital AFR AMER GFR >60 mL/min [facility] Ho spital Male GFR In terprentation [...] >32 mL/min Normal ID Date Data Source [id number] 01/04/2020 06:40:00 PM EST [facility] Name Value Range Interpretation Code Description Data Adriana rce(s) Supporting Document(s) CBC W/AUTOMATED DIFF [facility] COMPLETE BLOOD COUNT Leukocytes [#/volume] in Blood by Automated count 9.3 10^3/uL 4.2 - 1 1.0 [facility] Erythrocytes [#/volume] in Blood by Automated count 5.86 10^6/uL 4. 50 - 6.30 [facility] Hemoglobin [Mass/volume] in Blood 17.6 g/dL 14.0 - 16.0 H [facility] Hematocrit [Volume Fraction] of Blood by Automated count 51.3 % 4 1.0 - 51.0 H [facility] Erythrocyte mean corpuscular volume [Entitic volume] by Auto mated count 87.5 fL 80.0 - 94.0 [facility] Erythrocyte mean corpuscular hemoglobin [Entitic mass] by Automated count 30.0 pg 27.0 - 34.0 [facility] Erythrocyte mean corpuscular hemoglobin concentration [Mass/volume] by Automated count 34.3 g/dL 31.0 - 36.0 [facility] Erythrocyte distribution width [Ratio] by Automated count 12.0 % 11.5 - 14.8 [facility] Platelets [#/volume] in Blood by Automated count 430 10^3/uL 150 - 45 0 [facility] Platelet mean volume [Entitic volume] in Blood by Automated count 9.2 fL 7.4 - 10.4 [facility] Neutrophils/100 leukocytes in Blood by Automated count 62.5 % 37. 0 - 80.0 [facility] Lymphocytes/100 leukocytes in Blood by Manual count 26.9 % 25.0 - 40.0 [facility] Monocytes/100 leukocytes in Blood by Automated count 7.3 % 3.0 - 8.0 [facility] Eosinophils/100 leukocytes in Blood by Automated count 2.0 % 0.0 - 7.0 [facility] Basophils/100 leukocytes in Blood by Automated count 1.0 % 0.0 - 2.0 [facility] %IG 0.3 % 0.0 - 0.0 [facility] 0.0 % 0.0 - 0.0 [facility] al Neutrophils [#/volume] in Blood by Automated count 5.82 10^3/uL 2.00 - 6.90 [facility] Lymphocytes [#/volume] in Blood by Automated count 2.50 10^3/uL 0.60 - 3.40 [facility] Monocytes [#/volume] in Blood by Automated count 0.68 10^3/uL 0.00 - 0.90 [facility] Eosinophils [#/volume] in Blood by Automated count 0.19 10^3/uL 0.00 - 0.70 [facility] Basophils [#/volume] in Blood by Automated count 0.09 10^3/uL 0.00 - 0.20 [facility] #IG 0.03 10^3/uL 0.00 - 0.10 [facility] ospital #NRBC 0.00 10^3/uL 0.00 - 0.00 [facility] MANUAL DIFF NOT INDICATED [facility] RBC MORPH NOT INDICATED [facility] spital ID Date Data Source [id number] 11/12/2019 01:02:29 PM EDT [facility], PCName: Delonte ZamoranoDOB: 1985Provider: Reji [...] Order Comments: 12 sessionsplease fax reports to ([phone]. thank you Due: [id number]; Last Updated By: Stephanie Nina; 11/12/2019 1:01:12 [...] document was dictated and electronically signed using [employer] software. A reasonable attempt at proof reading [...] Ex-drinker (finding) comp leted Ex- drinker (finding) [facility] Tobacco use and exposure 07/22/2020 12:00:00 AM EDT Never used co mpleted Never used [facility] Cigarette pack-years 07/22/2020 12:00:[facility] current (pack per day) - Reported 07/23/19 12:00:00 AM EDT UNK [facility] ospital Smoking 07/22/2020 12:00:00 AM EDT Current every day smoker co mpleted Current every day smoker [facility] Alcohol intake 04/28/2020 12:00:00 AM EDT Ex-drinker (finding) comp leted Ex- drinker (finding) [facility] Alcohol intake 04/09/2020 12:00:00 AM EST Current drinker of al cohol (finding) completed Current drinker of alcohol (finding) [facility] Smoking 02/17/2020 12:00:00 AM EST Current Smoker completed Curre nt Smoker eCW1 ([facility]) Alcohol intake 01/05/2020 12:00:00 AM EST Yes completed [facility] Smoking 01/05/2020 12:00:00 AM EST Former smoker completed Former smoker [facility] Vital Signs ID Date Data Source UNK Name Value Range Interpretation Code Description Data Source(s) Body height 71 [in_i] 71 [in_i] MARJORIE ([facility]) Diastolic blood pressure 103 mm[Hg] 103 mm[Hg] MARJORIE ([facility]) Diastolic blood pressure 111 mm[Hg] 111 mm[Hg] MARJORIE ([facility]) Body height 71 [in_i] 71 [in_i] MARJORIE ([facility]) Body mass index (BMI) [Ratio] 29.8 kg/m2 29.8 k g/m2 MARJORIE ([facility]) Systolic blood pressure 150 mm[Hg] 150 mm[Hg] A [facility] ([facility]) Systolic blood pressure 162 mm[Hg] 162 mm[Hg] A [facility] ([facility]) Body weight 3424 [oz_av] 3424 [oz_av] MARJORIE ([facility]) Diastolic blood pressure 103 mm[Hg] 103 mm[Hg] MARJORIE ([facility]) Diastolic blood pressure 111 mm[Hg] 111 mm[Hg] MARJORIE ([facility]) Body height 71 [in_i] 71 [in_i] MARJORIE ([facility]) Body mass index (BMI) [Ratio] 29.8 kg/m2 29.8 k g/m2 MARJORIE ([facility]) Systolic blood pressure 150 mm[Hg] 150 mm[Hg] A [facility] ([facility]) Systolic blood pressure 162 mm[Hg] 162 mm[Hg] A [facility] ([facility]) Body weight 3424 [oz_av] 3424 [oz_av] MARJORIE ([facility]) Diastolic blood pressure 76 mm[Hg] 76 mm[Hg] MARJORIE ([facility]) Diastolic blood pressure 91 mm[Hg] 91 mm[Hg] MARJORIE ([facility]) Body height 71 [in_i] 71 [in_i] MARJORIE ([facility]) Body mass index (BMI) [Ratio] 30.3 kg/m2 30.3 k g/m2 MARJORIE ([facility]) Systolic blood pressure 154 mm[Hg] 154 mm[Hg] A THENA ([facility]) Systolic blood pressure 149 mm[Hg] 149 mm[Hg] A THENA ([facility]) Body weight 3472 [oz_av] 3472 [oz_av] MARJORIE ([facility]) Diastolic blood pressure 76 mm[Hg] 76 mm[Hg] MARJORIE ([facility]) Diastolic blood pressure 91 mm[Hg] 91 mm[Hg] MARJORIE ([facility]) Body height 71 [in_i] 71 [in_i] MARJORIE ([facility]) Body mass index (BMI) [Ratio] 30.3 kg/m2 30.3 k g/m2 MARJORIE ([facility]) Systolic blood pressure 154 mm[Hg] 154 mm[Hg] A THENA ([facility]) Systolic blood pressure 149 mm[Hg] 149 mm[Hg] A THENA ([facility]) Body weight 3472 [oz_av] 3472 [oz_av] MARJORIE ([facility]) Diastolic blood pressure 76 mm[Hg] 76 mm[Hg] MARJORIE ([facility]) Diastolic blood pressure 91 mm[Hg] 91 mm[Hg] MARJORIE ([facility]) Body height 71 [in_i] 71 [in_i] MARJORIE ([facility]) Body mass index (BMI) [Ratio] 30.3 kg/m2 30.3 k g/m2 MARJORIE ([facility]) Systolic blood pressure 154 mm[Hg] 154 mm[Hg] A THENA ([facility]) Systolic blood pressure 149 mm[Hg] 149 mm[Hg] A THENA ([facility]) Body weight 3472 [oz_av] 3472 [oz_av] MARJORIE ([facility]) Diastolic blood pressure 76 mm[Hg] 76 mm[Hg] MARJORIE ([facility]) Diastolic blood pressure 91 mm[Hg] 91 mm[Hg] MARJORIE ([facility]) Body height 71 [in_i] 71 [in_i] MARJORIE ([facility]) Body mass index (BMI) [Ratio] 30.3 kg/m2 30.3 k g/m2 MARJORIE ([facility]) Systolic blood pressure 154 mm[Hg] 154 mm[Hg] [facility] Systolic blood pressure 149 mm[Hg] 149 mm[Hg] A THENA ([facility]) Body weight 3472 [oz_av] 3472 [oz_av] MARJORIE ([facility]) Diastolic blood pressure 89 mm[Hg] 89 mm[Hg] MARJORIE ([facility]) Body height 71 [in_i] 71 [in_i] MARJORIE ([facility]) Body mass index (BMI) [Ratio] 30.5 kg/m2 30.5 k g/m2 MARJORIE ([facility]) Systolic blood pressure 146 mm[Hg] 146 mm[Hg] A THENA ([facility]) Body weight 3494.4 [oz_av] 3494.4 [oz_av] ATHEN A ([facility]) Diastolic blood pressure 89 mm[Hg] 89 mm[Hg] MARJORIE ([facility]) Body height 71 [in_i] 71 [in_i] MARJORIE ([facility]) Body mass index (BMI) [Ratio] 30.5 kg/m2 30.5 k g/m2 MARJORIE ([facility]) Systolic blood pressure 146 mm[Hg] 146 mm[Hg] A THENA ([facility]) Body weight 3494.4 [oz_av] 3494.4 [oz_av] ATHEN A ([facility]) Diastolic blood pressure 89 mm[Hg] 89 mm[Hg] MARJORIE ([facility]) Body height 71 [in_i] 71 [in_i] MARJORIE ([facility]) Body mass index (BMI) [Ratio] 30.5 kg/m2 30.5 k g/m2 MARJORIE ([facility]) Systolic blood pressure 146 mm[Hg] 146 mm[Hg] A THENA ([facility]) Body weight 3494.4 [oz_av] 3494.4 [oz_av] ATHEN A ([facility]) Diastolic blood pressure 89 mm[Hg] 89 mm[Hg] MARJORIE ([facility]) Body height 71 [in_i] 71 [in_i] MARJORIE ([facility]) Body mass index (BMI) [Ratio] 30.5 kg/m2 30.5 k g/m2 MARJORIE ([facility]) Systolic blood pressure 146 mm[Hg] 146 mm[Hg] A THENA ([facility]) Body weight 3494.4 [oz_av] 3494.4 [oz_av] ATHEN A ([facility]) Diastolic blood pressure 89 mm[Hg] 89 mm[Hg] MARJORIE ([facility]) Body height 71 [in_i] 71 [in_i] MARJORIE ([facility]) Body mass index (BMI) [Ratio] 30.5 kg/m2 30.5 k g/m2 MARJORIE ([facility]) Systolic blood pressure 146 mm[Hg] 146 mm[Hg] A THENA ([facility]) Body weight 3494.4 [oz_av] 3494.4 [oz_av] ATHEN A ([facility]) Body weight 225 [lb_av] 225 [lb_av] eCW[facility] Body height 71.5 [in_i] 71.5 [in_i] eCW1 ([facility]) Body mass index (BMI) [Ratio] 30.94 kg/m2 30.94 kg/m2 eCW1 ([facility]) Heart rate 90 /min 90 /min eCW1 ([facility]) Respiratory rate 18 /min 18 /min eCW1 ([facility]) Body temperature 96 [degF] 96 [degF] eCW1 ([facility]) Systolic blood pressure 138 mm[Hg] 138 mm[Hg] e CW1 ([facility]) Diastolic blood pressure 74 mm[Hg] 74 mm[Hg] eCW1 ([facility]) Body height 71 [in_i] 71 [in_i] MARJORIE ([facility]) Body mass index (BMI) [Ratio] 31.3 kg/m2 31.3 k g/m2 MARJORIE ([facility]) Systolic blood pressure 132 mm[Hg] 132 mm[Hg] A THENA ([facility]) Systolic blood pressure 137 mm[Hg] 137 mm[Hg] A THENA ([facility]) Diastolic blood pressure 87 mm[Hg] 87 mm[Hg] MARJORIE ([facility]) Body weight 3593.6 [oz_av] 3593.6 [oz_av] ATHEN A ([facility]) Diastolic blood pressure 96 mm[Hg] 96 mm[Hg] MARJORIE ([facility]) Diastolic blood pressure 87 mm[Hg] 87 mm[Hg] MARJORIE ([facility]) Diastolic blood pressure 96 mm[Hg] 96 mm[Hg] MARJORIE ([facility]) Body height 71 [in_i] 71 [in_i] MARJORIE ([facility]) Body mass index (BMI) [Ratio] 31.3 kg/m2 31.3 k g/m2 MARJORIE ([facility]) Systolic blood pressure 132 mm[Hg] 132 mm[Hg] A THENA ([facility]) Systolic blood pressure 137 mm[Hg] 137 mm[Hg] A THENA ([facility]) Body weight 3593.6 [oz_av] 3593.6 [oz_av] ATHEN A ([facility]) Diastolic blood pressure 87 mm[Hg] 87 mm[Hg] MARJORIE ([facility]) Diastolic blood pressure 96 mm[Hg] 96 mm[Hg] MARJORIE ([facility]) Body height 71 [in_i] 71 [in_i] MARJORIE ([facility]) Body mass index (BMI) [Ratio] 31.3 kg/m2 31.3 k g/m2 MARJORIE ([facility]) Systolic blood pressure 132 mm[Hg] 132 mm[Hg] A THENA ([facility]) Systolic blood pressure 137 mm[Hg] 137 mm[Hg] A THENA ([facility]) Body weight 3593.6 [oz_av] 3593.6 [oz_av] ATHEN A ([facility]) Diastolic blood pressure 87 mm[Hg] 87 mm[Hg] MARJORIE ([facility]) Diastolic blood pressure 96 mm[Hg] 96 mm[Hg] MARJORIE ([facility]) Body height 71 [in_i] 71 [in_i] MARJORIE ([facility]) Body mass index (BMI) [Ratio] 31.3 kg/m2 31.3 k g/m2 MARJORIE ([facility]) Systolic blood pressure 132 mm[Hg] 132 mm[Hg] [facility] Systolic blood pressure 137 mm[Hg] 137 mm[Hg] [facility] Body weight 3593.6 [oz_av] 3593.6 [oz_av] ATHEN A ([facility]) Diastolic blood pressure 87 mm[Hg] 87 mm[Hg] MARJORIE ([facility]) Diastolic blood pressure 96 mm[Hg] 96 mm[Hg] MARJORIE ([facility]) Body height 71 [in_i] 71 [in_i] MARJORIE ([facility]) Body mass index (BMI) [Ratio] 31.3 kg/m2 31.3 k g/m2 MARJORIE ([facility]) Systolic blood pressure 132 mm[Hg] 132 mm[Hg] A THENA ([facility]) Systolic blood pressure 137 mm[Hg] 137 mm[Hg] A THENA ([facility]) Body weight 3593.6 [oz_av] 3593.6 [oz_av] ATHEN A ([facility]) Diastolic blood pressure 87 mm[Hg] 87 mm[Hg] MARJORIE ([facility]) Diastolic blood pressure 96 mm[Hg] 96 mm[Hg] MARJORIE ([facility]) Body height 71 [in_i] 71 [in_i] MARJORIE ([facility]) Body mass index (BMI) [Ratio] 31.3 kg/m2 31.3 k g/m2 MARJORIE ([facility]) Systolic blood pressure 132 mm[Hg] 132 mm[Hg] A AIDEE ([facility]) Systolic blood pressure 137 mm[Hg] 137 mm[Hg] A THENTanika ([facility]) Body weight 3593.6 [oz_av] 3593.6 [oz_av] IRLANDA Sagastume ([facility]) Systolic blood pressure 112 mm[Hg] 112 mm[Hg] [facility] Diastolic blood pressure 78 mm[Hg] 78 mm[Hg] [facility] Heart rate 74 /min 74 /min [facility] Body temperature 36.78 Nic 36.78 Nic [facility] Respiratory rate 18 /min 18 /min [facility] Oxygen saturation in Arterial blood by Pulse oximetry 96 % 96 % [facility] Body height 180.3 cm 180.3 cm [facility] Body weight 104.237 kg 104.237 kg [facility] Body mass index (BMI) [Ratio] 32.05 kg/m2 32.05 kg/m2 [facility] ID Date Data Source [id number] 05/08/2020 05:57:13 PM [facility] Name Value Range Interpretation Code Description Data Source(s) WEIGHT RECORDED 215 lb 215 lb [facility] Body height Measured 71 in 71 in [facility] ID Date Data Source [id number] 04/21/2020 02:08:24 PM [facility] Name Value Range Interpretation Code Description Data Source(s) TRANSFER FROM [facility] Patient Treatment Plan of Care Planned Activity Planned Date Details Description Data Source (s) 24 HR Nicotine 0.875 MG/HR Transdermal Patch 04/13/2020 12:00:[address] [facility] pantoprazole 40 MG Delayed Release Oral Tablet 04/13/2020 12:00:[address] [facility] Cholecalciferol 1000 UNT Oral Tablet 04/13/2020 12:00:[address] [facility] Melatonin 5 MG Oral Tablet 04/12/2020 10:00:[address] [facility] Baclofen 10 MG Oral Tablet 04/12/2020 12:00:[address] [facility] Prednisone 50 MG Oral Tablet 04/12/2020 12:00:[address] [facility] Prednisone 50 MG Oral Tablet 04/12/2020 12:00:[address] [facility] Prednisone 20 MG Oral Tablet 04/12/2020 12:00:[address] [facility] Nortriptyline 10 MG Oral Capsule 04/12/2020 12:00:[address] [facility] Melatonin 5 MG Oral Tablet 04/12/2020 12:00:[address] [facility] methylPREDNISolone (MEDROL, ROSALIO,) 4 MG tablet 01/06/2020 12:00:00 A M [facility] Oxycodone Hydrochloride 5 MG Oral Tablet 01/06/2020 12:00:00 AM [facility] Ondansetron 8 MG Disintegrating Oral Tablet MARJORIE ([facility]) Naproxen 500 MG Oral Tablet MARJORIE ([facility]) Magnesium Hydroxide 80 MG/ML Oral Suspension MARJORIE ([facility]) methylprednisolone 4 mg tablets in a dos e pack TAKE BY MOUTH FOLLOWING PACKAGE INSTRUCTIONS MARJORIE ([facility]) Methocarbamol 750 MG Oral Tablet MARJORIE ([facility]) Methocarbamol 500 MG Oral Tablet MARJORIE ([facility]) Ketorolac Tromethamine 10 MG Oral Tablet MARJORIE ([facility]) gabapentin 100 MG Oral Capsule MARJORIE ([facility]) Cyclobenzaprine hydrochloride 10 MG Oral Tablet MARJORIE ([facility]) Baclofen 5 MG Oral Tablet AT NESHA ([facility]) Azithromycin 250 MG Oral Tablet MARJORIE ([facility]) albuterol sulfate HFA 90 mcg/actuation a erosol inhaler INHALE 4 PUFFS EVERY 4 TO 6 HOURS NEEDED FOR WHEEZING MARJORIE ([facility]) 24 HR venlafaxine 37.5 MG Extended Release Oral Capsule MARJORIE ([facility]) tramadol hydrochloride 50 MG Oral Tablet MARJORIE ([facility]) 12 HR Oxycodone Hydrochloride 60 MG Extended Release Oral Ta blet [Oxycontin] MARJORIE ([facility]) 12 HR Oxycodone Hydrochloride 30 MG Extended Release Oral Ta blet [Oxycontin] MARJORIE ([facility]) Oxycodone Hydrochloride 5 MG Oral Tablet MARJORIE ([facility]) Oxycodone Hydrochloride 10 MG Oral Tablet MARJORIE ([facility]) oxycodone MARJORIE ([facility]) Ondansetron 8 MG Disintegrating Oral Tablet MARJORIE ([facility]) Naproxen 500 MG Oral Tablet MARJORIE ([facility]) Magnesium Hydroxide 80 MG/ML Oral Suspension MARJORIE ([facility]) methylprednisolone 4 mg tablets in a dos e pack TAKE BY MOUTH FOLLOWING PACKAGE INSTRUCTIONS MARJORIE ([facility]) Methocarbamol 750 MG Oral Tablet MARJORIE ([facility]) Methocarbamol 500 MG Oral Tablet MARJORIE ([facility]) Ketorolac Tromethamine 10 MG Oral Tablet MARJORIE ([facility]) gabapentin 100 MG Oral Capsule MARJORIE ([facility]) Cyclobenzaprine hydrochloride 10 MG Oral Tablet MARJORIE ([facility]) Baclofen 5 MG Oral Tablet AT NESHA ([facility]) Azithromycin 250 MG Oral Tablet MARJORIE ([facility]) albuterol sulfate HFA 90 mcg/actuation a erosol inhaler INHALE 4 PUFFS EVERY 4 TO 6 HOURS NEEDED FOR WHEEZING MARJORIE ([facility]) 24 HR venlafaxine 37.5 MG Extended Release Oral Capsule MARJORIE ([facility]) tramadol hydrochloride 50 MG Oral Tablet MARJORIE ([facility]) 12 HR Oxycodone Hydrochloride 60 MG Extended Release Oral Ta blet [Oxycontin] MARJORIE ([facility]) 12 HR Oxycodone Hydrochloride 30 MG Extended Release Oral Ta blet [Oxycontin] MARJORIE ([facility]) Oxycodone Hydrochloride 5 MG Oral Tablet MARJORIE ([facility]) Oxycodone Hydrochloride 10 MG Oral Tablet MARJORIE ([facility]) oxycodone MARJORIE ([facility]) Ondansetron 8 MG Disintegrating Oral Tablet MARJORIE ([facility]) Naproxen 500 MG Oral Tablet MARJORIE ([facility]) Magnesium Hydroxide 80 MG/ML Oral Suspension MARJORIE ([facility]) methylprednisolone 4 mg tablets in a dos e pack TAKE BY MOUTH FOLLOWING PACKAGE INSTRUCTIONS MARJORIE ([facility]) Methocarbamol 750 MG Oral Tablet MARJORIE ([facility]) Methocarbamol 500 MG Oral Tablet MARJORIE ([facility]) Ketorolac Tromethamine 10 MG Oral Tablet MARJORIE ([facility]) gabapentin 100 MG Oral Capsule MARJORIE ([facility]) Cyclobenzaprine hydrochloride 10 MG Oral Tablet MARJORIE ([facility]) Baclofen 5 MG Oral Tablet AT NESHA ([facility]) Azithromycin 250 MG Oral Tablet MARJORIE ([facility]) albuterol sulfate HFA 90 mcg/actuation a erosol inhaler INHALE 4 PUFFS EVERY 4 TO 6 HOURS NEEDED FOR WHEEZING MARJORIE ([facility]) Baclofen 5 MG Oral Tablet [facility] tramadol hydrochloride 50 MG Oral Tablet MARJORIE ([facility]) Prednisone 50 MG Oral Tablet MARJORIE ([facility]) 12 HR Oxycodone Hydrochloride 60 MG Extended Release Oral Ta blet [Oxycontin] MARJORIE ([facility]) 12 HR Oxycodone Hydrochloride 30 MG Extended Release Oral Ta blet [Oxycontin] MARJORIE ([facility]) Oxycodone Hydrochloride 5 MG Oral Tablet MARJORIE ([facility]) Oxycodone Hydrochloride 10 MG Oral Tablet MARJORIE ([facility]) oxycodone MARJORIE ([facility]) Ondansetron 8 MG Disintegrating Oral Tablet MARJORIE ([facility]) Naproxen 500 MG Oral Tablet MARJORIE ([facility]) Magnesium Hydroxide 80 MG/ML Oral Suspension MARJORIE ([facility]) methylprednisolone 4 mg tablets in a dos e pack TAKE BY MOUTH FOLLOWING PACKAGE INSTRUCTIONS MARJORIE ([facility]) Methocarbamol 500 MG Oral Tablet MARJORIE ([facility]) Ketorolac Tromethamine 10 MG Oral Tablet MARJORIE ([facility]) gabapentin 100 MG Oral Capsule MARJORIE ([facility]) Cyclobenzaprine hydrochloride 10 MG Oral Tablet MARJORIE ([facility]) Azithromycin 250 MG Oral Tablet MARJORIE ([facility]) albuterol sulfate HFA 90 mcg/actuation a erosol inhaler INHALE 4 PUFFS EVERY 4 TO 6 HOURS NEEDED FOR WHEEZING MARJORIE ([facility]) Prednisone 50 MG Oral Tablet MARJORIE ([facility]) 12 HR Oxycodone Hydrochloride 60 MG Extended Release Oral Ta blet [Oxycontin] MARJORIE ([facility]) 12 HR Oxycodone Hydrochloride 30 MG Extended Release Oral Ta blet [Oxycontin] MARJORIE ([facility]) Oxycodone Hydrochloride 10 MG Oral Tablet MARJORIE ([facility]) oxycodone MARJORIE ([facility]) Ondansetron 8 MG Disintegrating Oral Tablet MARJORIE ([facility]) Naproxen 500 MG Oral Tablet MARJORIE ([facility]) Magnesium Hydroxide 80 MG/ML Oral Suspension MARJORIE ([facility]) Methocarbamol 500 MG Oral Tablet MARJORIE ([facility]) Ketorolac Tromethamine 10 MG Oral Tablet MARJORIE ([facility]) gabapentin 100 MG Oral Capsule MARJORIE ([facility]) Cyclobenzaprine hydrochloride 10 MG Oral Tablet MARJORIE ([facility]) Azithromycin 250 MG Oral Tablet MARJORIE ([facility]) vitamin d3 25 mcg (1000 ut) tabs MARJORIE ([facility]) 24 HR venlafaxine 37.5 MG Extended Release Oral Capsule MARJORIE ([facility]) tramadol hydrochloride 50 MG Oral Tablet MARJORIE ([facility]) Docusate Sodium 50 MG / sennosides, PENITENTIARY 8.6 MG Oral Tablet MARJORIE ([facility]) Prednisone 50 MG Oral Tablet MARJORIE ([facility]) pantoprazole 40 MG Delayed Release Oral Tablet MARJORIE ([facility]) 12 HR Oxycodone Hydrochloride 60 MG Extended Release Oral Ta blet [Oxycontin] MARJORIE ([facility]) 12 HR Oxycodone Hydrochloride 30 MG Extended Release Oral Ta blet [Oxycontin] MARJORIE ([facility]) Oxycodone Hydrochloride 5 MG Oral Tablet MARJORIE ([facility]) Oxycodone Hydrochloride 10 MG Oral Tablet MARJORIE ([facility]) oxycodone MARJORIE ([facility]) Ondansetron 4 MG Oral Tablet MARJORIE ([facility]) Ondansetron 8 MG Disintegrating Oral Tablet MARJORIE ([facility]) Nortriptyline 50 MG Oral Capsule MARJORIE ([facility]) Nortriptyline 25 MG Oral Capsule MARJORIE ([facility]) Nortriptyline 10 MG Oral Capsule MARJORIE ([facility]) 24 HR Nicotine 0.875 MG/HR Transdermal Patch MARJORIE ([facility]) Naproxen 500 MG Oral Tablet MARJORIE ([facility]) Magnesium Hydroxide 80 MG/ML Oral Suspension MARJORIE ([facility]) methylprednisolone 4 mg tablets in a dos e pack TAKE BY MOUTH FOLLOWING PACKAGE INSTRUCTIONS MARJORIE ([facility]) Methocarbamol 750 MG Oral Tablet MARJORIE ([facility]) Methocarbamol 500 MG Oral Tablet MARJORIE ([facility]) Melatonin 5 MG Oral Tablet A THENA ([facility]) Ketorolac Tromethamine 10 MG Oral Tablet MARJORIE ([facility]) Haloperidol 2 MG Oral Tablet MARJORIE ([facility]) gabapentin 100 MG Oral Capsule MAJRORIE ([facility]) Docusate Sodium 100 MG Oral Capsule [DOK] MARJORIE ([facility]) Cyclobenzaprine hydrochloride 10 MG Oral Tablet MARJORIE ([facility]) Clonazepam 0.5 MG Oral Tablet MARJORIE ([facility]) Cholecalciferol 1000 UNT Oral Capsule MARJORIE ([facility]) Baclofen 5 MG Oral Tablet AT NESHA ([facility]) Baclofen 10 MG Oral Tablet A THENA ([facility]) Azithromycin 250 MG Oral Tablet MARJORIE ([facility]) Amlodipine 10 MG Oral Tablet MARJORIE ([facility]) albuterol sulfate HFA 90 mcg/actuation a erosol inhaler INHALE 4 PUFFS EVERY 4 TO 6 HOURS NEEDED FOR WHEEZING MARJORIE ([facility]) Acetaminophen 500 MG Oral Tablet MARJORIE ([facility]) tramadol hydrochloride 50 MG Oral Tablet MARJORIE ([facility]) 12 HR Oxycodone Hydrochloride 60 MG Extended Release Oral Ta blet [Oxycontin] MARJORIE ([facility]) 12 HR Oxycodone Hydrochloride 30 MG Extended Release Oral Ta blet [Oxycontin] MARJORIE ([facility]) Oxycodone Hydrochloride 5 MG Oral Tablet MARJORIE ([facility]) Oxycodone Hydrochloride 10 MG Oral Tablet MARJORIE ([facility]) oxycodone MARJORIE ([facility])
[2021-01-10] MEDS ORDERED: METH-1165 PO (22:47)
[2021-01-10] MEDS ORDERED: PRED20TA PO (22:47)
[2021-01-10] MEDS ORDERED: ASPE4PAD TOP (22:47)
[2021-01-10 22:55] VITALS: BP 147/69
[2021-01-11] MEDS ORDERED: **NOTE PATIENT COMMENT** MISC XX SCH (21:00)
== END 2021-01-10 23:11 | disposition home or self-care (01) ==
LOC: M ED 18:33
DX: M54.50 Low back pain, unspecified (principal); S30.0XXA Contusion of lower back and pelvis, initial encounter; W19.XXXA Unspecified fall, initial encounter; Y92.9 Unspecified place or not applicable; Y93.9 Activity, unspecified; Y99.9 Unspecified external cause status; I10 Essential (primary) hypertension; J45.909 Unspecified asthma, uncomplicated; J44.9 Chronic obstructive pulmonary disease, unspecified; G35 Multiple sclerosis; Z87.442 Personal history of urinary calculi; F17.200 Nicotine dependence, unspecified, uncomplicated; Z79.82 Long term (current) use of aspirin; Z79.899 Other long term (current) drug therapy; Z88.8 Allergy status to other drugs, medicaments and biological substances
CPT/HCPCS: 72110; 96374; 96375; 99284; J2270; J2930; J3360

== ENCOUNTER 2021-01-24 14:54 | Emergency (ER) | payer MEDICAID, OTHER ==
[~2021-01-24] VITALS: Ht 180.3 cm; Wt 102.3 kg
[~2021-01-24 14:54] MED LIST changes: +ASPE4PAD TOP; +METH-1165 PO; +PRED20TA PO
[2021-01-24] MEDS ORDERED: ACETAMINOPHEN 500 MG TAB PO ONE (18:35)
[2021-01-24 19:05] LABS: BASO # 0.1 10^3/uL (0.0-0.2); BASO % 0.5 % (0.0-1.0); EOS # 0.2 10^3/uL (0.0-0.5); EOS % 1.1 % (0.0-3.0); HEMATOCRIT 51.7 % (42.0-52.0); HEMOGLOBIN 17.9 g/dl (13.5-17.5); LYMPH # 3.3 10^3/uL (1.5-5.0); LYMPH % 23.2 % (24.0-44.0); MEAN CORPUSCULAR HEMOGLOBIN 30.8 pg (27.0-33.0); MEAN CORPUSCULAR HGB CONC 34.6 g/dl (32.0-36.5); MONO % 6.8 % (2.0-8.0); NEUTROPHILS # 9.7 10^3/uL (1.5-8.5); NEUTROPHILS % 67.9 % (36.0-66.0); PLATELET COUNT, AUTOMATED 398 10^3/uL (150-450); RED BLOOD COUNT 5.81 10^6/uL (4.30-6.10); WHITE BLOOD COUNT 14.2 10^3/uL (4.0-10.0)
[2021-01-24] MEDS ORDERED: CYCLOBENZAPRINE 5MG TABLET PO ONE (19:20)
[2021-01-24] MEDS ORDERED: NS 1,000 ML IV ONE (19:20)
[2021-01-24 19:35] LABS: ALBUMIN 4.4 GM/DL (3.2-5.2); ALT/SGPT 30 U/L (12-78); BILIRUBIN,DIRECT 0.1 MG/DL (0.0-0.2); BILIRUBIN,TOTAL 0.5 MG/DL (0.2-1.0); BLOOD UREA NITROGEN 15 MG/DL (7-18); CALCIUM LEVEL 9.6 MG/DL (8.5-10.1); CARBON DIOXIDE LEVEL 28 MEQ/L (21-32); CHLORIDE LEVEL 100 MEQ/L (98-107); CREATININE FOR GFR 1.17 MG/DL (0.70-1.30); GLOMERULAR FILTRATION RATE > 60.0 (>60); GLUCOSE, FASTING 96 MG/DL (70-100); POTASSIUM SERUM 4.2 MEQ/L (3.5-5.1); SODIUM LEVEL 135 MEQ/L (136-145); TOTAL PROTEIN 8.1 GM/DL (6.4-8.2)
[2021-01-24 19:42] LABS: ERYTHROCYTE SEDIMENTATION RATE 1 mm/hr (0-15)
[2021-01-24] MEDS ORDERED: LIDOCAINE 5% (LIDODERM) PATCH TD ONE (20:00)
[2021-01-24] MEDS ORDERED: methylPREDNISolone 125MG 2ML VIAL IV ONE (22:40)
[2021-01-24] MEDS ORDERED: METH-1165 PO (22:52)
[2021-01-24] MEDS ORDERED: LIDO5DIS41 TD (22:52)
[2021-01-24 23:40] VITALS: BP 124/63
--- NOTE | 2021-01-24 23:40 | REPVR ---
PROCEDURE INFORMATION: Exam: CT Lumbar Spine Without Contrast Exam date and time: 01/24/2021 8:11 PM Age: 35 years old Clinical indication: Low back pain; Prior surgery; Additional info: Tender to palpation, severe, prior fusion with hardware TECHNIQUE: Imaging protocol: Computed tomography images of the lumbar spine without contrast. Radiation optimization: All CT scans at this facility use at least one of these dose optimization techniques: automated exposure control; mA and/or kV adjustment per patient size (includes targeted exams where dose is matched to clinical indication); or iterative reconstruction. COMPARISON: CT Spine, lumbar w/o contrast 01/21/2020 3:06 PM FINDINGS: Vertebrae: Mild dextroconvex curvature. Mild retrolisthesis of L4 on L5. Vertebral body heights are preserved. Previous fusion and laminectomy at L5-S1. No hardware failure. No acute fracture. No osseous destruction. Discs/Spinal canal/Neural foramina: No definite significant central canal stenosis within limitations of technique. Gallbladder and bile ducts: Previous cholecystectomy. Vasculature: Mild vascular calcification. Soft tissues: Unremarkable. IMPRESSION: No acute osseous abnormality. Electronically signed by: Moisés Stovall On 01/24/2021 23:39:43 PM
--- NOTE | 2021-01-24 23:43 | REPVR ---
PROCEDURE INFORMATION: Exam: CT Thoracic Spine Without Contrast Exam date and time: 01/24/2021 8:11 PM Age: 35 years old Clinical indication: Pain in thoracic spine; Prior surgery; Additional info: Tender to palpation, severe, prior fusion with hardware TECHNIQUE: Imaging protocol: Computed tomography images of the thoracic spine without contrast. Radiation optimization: All CT scans at this facility use at least one of these dose optimization techniques: automated exposure control; mA and/or kV adjustment per patient size (includes targeted exams where dose is matched to clinical indication); or iterative reconstruction. COMPARISON: CT ABD/PEL W/IV CONTRAST ONLY 01/21/2020 3:06 PM FINDINGS: Vertebrae: Mild superior endplate compression fractures involving T6 and T7. No significant osseous retropulsion. Remainder demonstrates preserved height and AP alignment. No osseous destruction. Discs/Spinal canal/Neural foramina: No definite significant central canal stenosis within limitations of technique. Soft tissues: Unremarkable. Pleural spaces: No visible pneumothorax. IMPRESSION: Mild superior endplate compression fractures involving T6 and T7, age indeterminate. MRI may be considered. Electronically signed by: Moisés Stovall On 01/24/2021 23:42:52 PM
[2021-01-24] MEDS ORDERED: HYDR-3713 PO (23:58)
[2021-01-25] MEDS ORDERED: **NOTE PATIENT COMMENT** MISC XX SCH (08:00)
== END 2021-01-25 00:24 | disposition home or self-care (01) ==
LOC: M ED 14:54
DX: S22.060A Wedge compression fracture of T7-T8 vertebra, initial encounter for closed fracture (principal); S22.050A Wedge compression fracture of T5-T6 vertebra, initial encounter for closed fracture; G35 Multiple sclerosis; G44.201 Tension-type headache, unspecified, intractable; W00.9XXA Unspecified fall due to ice and snow, initial encounter; Y92.9 Unspecified place or not applicable; Y93.9 Activity, unspecified; Y99.9 Unspecified external cause status; I10 Essential (primary) hypertension; E78.5 Hyperlipidemia, unspecified; M54.9 Dorsalgia, unspecified; J44.9 Chronic obstructive pulmonary disease, unspecified; J45.909 Unspecified asthma, uncomplicated; F41.9 Anxiety disorder, unspecified; Q05.9 Spina bifida, unspecified; K52.9 Noninfective gastroenteritis and colitis, unspecified; F17.200 Nicotine dependence, unspecified, uncomplicated; Z79.82 Long term (current) use of aspirin; Z79.899 Other long term (current) drug therapy; Z88.8 Allergy status to other drugs, medicaments and biological substances
CPT/HCPCS: 72128; 72131; 80048; 80076; 85025; 85652; 86140; 96361; 96374; 99284; J2930

== ENCOUNTER 2021-04-28 16:18 | Emergency (ER) | payer OTHER ==
[~2021-04-28] VITALS: Ht 180.3 cm; Wt 102.0 kg
[~2021-04-28 16:18] MED LIST changes: -D31000TA2 PO; +HYDR-3713 PO; +LIDO5DIS41 TD; +VITA100093 PO
[2021-04-28 17:01] LABS: BASO # 0.1 10^3/uL (0.0-0.2); BASO % 0.8 % (0.0-1.0); EOS % 0.3 % (0.0-3.0); HEMATOCRIT 44.7 % (42.0-52.0); HEMOGLOBIN 16.2 g/dl (13.5-17.5); LYMPH # 2.8 10^3/uL (1.5-5.0); LYMPH % 22.7 % (24.0-44.0); MEAN CORPUSCULAR HEMOGLOBIN 31.2 pg (27.0-33.0); MEAN CORPUSCULAR HGB CONC 36.2 g/dl (32.0-36.5); MONO # 1.1 10^3/uL (0.0-0.8); MONO % 9.2 % (2.0-8.0); NEUTROPHILS # 8.1 10^3/uL (1.5-8.5); NEUTROPHILS % 66.7 % (36.0-66.0); PLATELET COUNT, AUTOMATED 383 10^3/uL (150-450); WHITE BLOOD COUNT 12.1 10^3/uL (4.0-10.0)
[2021-04-28 17:20] LABS: ACETAMINOPHEN LEVEL < 2.0 UG/ML (10.0-30.0); ALBUMIN 4.3 GM/DL (3.2-5.2); ALT/SGPT 41 U/L (12-78); BILIRUBIN,DIRECT 0.2 MG/DL (0.0-0.2); BILIRUBIN,TOTAL 0.6 MG/DL (0.2-1.0); BLOOD UREA NITROGEN 7 MG/DL (7-18); CALCIUM LEVEL 9.6 MG/DL (8.5-10.1); CARBON DIOXIDE LEVEL 22 MEQ/L (21-32); CHLORIDE LEVEL 105 MEQ/L (98-107); GLOMERULAR FILTRATION RATE > 60.0 (>60); GLUCOSE, FASTING 87 MG/DL (70-100); LIPASE 287 U/L (73-393); POTASSIUM SERUM 4.1 MEQ/L (3.5-5.1); SALICYLATE LEVEL 4.7 MG/DL (5.0-30.0); SODIUM LEVEL 136 MEQ/L (136-145); TOTAL PROTEIN 7.4 GM/DL (6.4-8.2)
[2021-04-28 17:46] LABS: ETHYL ALCOHOL (ETHANOL) 0.078 % (0.000-0.010)
[2021-04-28 18:30] LABS: AMPHETAMINES LEVEL URINE NEGATIVE (NEGATIVE); BARBITURATES URINE NEGATIVE (NEGATIVE); BENZODIAZEPINES URINE NEGATIVE (NEGATIVE); CANNABINOIDS URINE NEGATIVE (NEGATIVE); COCAINE METABOLITE URINE NEGATIVE (NEGATIVE); METHADONE URINE NEGATIVE (NEGATIVE); OPIATES URINE NEGATIVE (NEGATIVE); PHENCYCLIDINE URINE NEGATIVE (NEGATIVE)
[2021-04-28] MEDS ORDERED: ACETAMINOPHEN TAB 650MG DOSE (2X325MG) PO ONE (19:40)
[2021-04-28 20:46] LABS: RSV AMPLIFICATION NEGATIVE (NEGATIVE)
[2021-04-28] MEDS ORDERED: DIVA500T9 PO (21:48)
[2021-04-28] MEDS ORDERED: INVE234I IM (21:48)
[2021-04-28] MEDS ORDERED: HOME MED LIST COMPLETE! XX SCH (21:50)
[2021-04-29 13:31] VITALS: BP 145/85
== END 2021-04-29 13:37 ==
LOC: M ED 16:18 → EDBD 16:18 → M ED 04-29 13:37
DX: F32.9 Major depressive disorder, single episode, unspecified (principal); R45.851 Suicidal ideations; F44.5 Conversion disorder with seizures or convulsions; R00.0 Tachycardia, unspecified; I10 Essential (primary) hypertension; G35 Multiple sclerosis; F19.10 Other psychoactive substance abuse, uncomplicated; Z87.442 Personal history of urinary calculi; F17.200 Nicotine dependence, unspecified, uncomplicated; Z79.899 Other long term (current) drug therapy; Z88.8 Allergy status to other drugs, medicaments and biological substances